=== PATIENT | male | born 1945 | race Caucasian/White ===

== ENCOUNTER → 2019-12-18 13:20 | Outpatient (CLI) | payer OTHER, SELFPAY ==
--- NOTE | ~2019-12-18 | XR_ITS ---
EXAMINATION: XR chest 2V EXAM DATE: 12/18/2019 13:48 INDICATION: Shortness of breath. TECHNIQUE: Frontal and lateral projections of the chest obtained and reviewed. Comparison is made to prior examination from 02/05/2019. FINDINGS: Interval decrease in the heart size, which is upper limits of normal. There is pulmonary v ascular congestion. No confluent consolidation, pneumothorax or pleural effusion suspected. There is no pneumothorax suspected. There are mild bony degenerative changes. IMPRESSION: Congestive changes. Reviewed, dictated and finalized at location B. 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
== END ==
PROVIDERS: PCP Internal Medicine; Visit Provider Nurse Practitioner
DX: R06.02 Shortness of breath (principal)
CPT/HCPCS: 71046

== ENCOUNTER 2020-04-14 19:02 | Outpatient (CLI) | payer OTHER, SELFPAY ==
--- NOTE | ~2020-04-14 | XR_ITS ---
EXAMINATION: XR chest 2V 04/14/2020 19:30 INDICATION: Shortness of breath with cough PROCEDURE: 2 view chest COMPARISON: 01/06/2019 FINDINGS: The lungs are clear. The cardiomediastinal silhouette is within normal limits. There are no pleural effusions. There is no pneumothorax suspected. IMPRESSION: 1: NO ACUTE CARDIOPULMONARY DISEASE. Reviewed, dictated and finalized at location A.
== END 2020-04-14 19:03 | disposition home or self-care (01) ==
LOC: ANHIMG 19:09
PROVIDERS: PCP Internal Medicine; Visit Provider Internal Medicine
DX: R06.02 Shortness of breath (principal)
CPT/HCPCS: 71046

== ENCOUNTER → 2020-08-09 10:22 | Outpatient (CLI) | payer OTHER, SELFPAY ==
--- NOTE | ~2020-08-09 | XR_ITS ---
EXAMINATION: XR chest 2V EXAM DATE: 08/09/2020 10:52 INDICATION: Shortness of breath. Wheezing and cough. TECHNIQUE: Frontal and lateral projections of the chest obtained and reviewed. Comparison is made to prior examination from 04/14/2020. FINDINGS: Mild cardiomegaly. There is pulmonary vascular congestion. There is indistinct reticulatio n with a bibasal predominance which may indicate pulmonary edema. No confluent consolidation, pneumot horax or pleural effusion suspected. There is aortic arteriosclerosis. There are mild bony degenerati ve changes. IMPRESSION: 1. Findings consistent with mild CHF exacerbation. Reviewed, dictated and finalized at location B.
== END ==
PROVIDERS: PCP Internal Medicine; Visit Provider Nurse Practitioner
DX: R06.02 Shortness of breath (principal)
CPT/HCPCS: 71046

== ENCOUNTER 2020-08-16 01:38 | Outpatient (CLI) | payer OTHER, SELFPAY ==
[2020-08-16 19:24] LABS: SARS-CoV-2 RNA PCR Negative
== END 2020-08-16 01:39 | disposition home or self-care (01) ==
LOC: ANHCOVIDDT 01:38
PROVIDERS: PCP Internal Medicine; Visit Provider Internal Medicine Critical Care Medicine
DX: R50.9 Fever, unspecified (principal); R43.0 Anosmia; Z20.828 Contact with and (suspected) exposure to other viral communicable diseases
CPT/HCPCS: 87635; C9803; U0003

== ENCOUNTER 2020-08-18 11:14 | Outpatient (CLI) | payer OTHER, SELFPAY ==
--- NOTE | 2020-09-16 21:04 | WPDSLEEPSTUD ---
Sleep Study Date of Study: 08/18/20 Ordering Provider: Pavan Crabtree APRN Interpreting Physician: Jennifer Marin MD Sleep Study Type: Split Polysomnogram Height: 1.7 m Weight: 117.934 kg Body Mass Index: 40.7 [place]: 7 Reason for Sleep Study Known history of sleep apnea, excessive daytime sleepiness; his CPAP device stop working, has not been treated for over a year. Sleep History Farhan Armstrong is a 74 yo man who frequently wakes from sleep feeling short of breath. He constantly has trouble sleeping if he has a cold. He rarely has breathing problems at night reported to him by others. He rarely sweats excessively at night. He occasionally notices his heart pounding or beating irregularly at night. He occasionally falls asleep during the day, never involuntarily, never while driving and never during physical effort. He does not have loss of muscle tone with strong emotion. He does not have daytime difficulties due to he does not feel paralyzed on waking or falling asleep and does not have vivid dreamlike scenes upon awakening or falling asleep. He has never for a to go to sleep. He does not have nightmares. He does not recall his dreams. He does not have racing thoughts. He does not feel sad, depressed or anxious. He does not have muscular tension, does not notice part his body jerking and he does not kick at night. He does not have crawling and aching feelings in his legs. He denies having leg pain at night and does not have morning jaw pain. He does not grind his teeth during sleep. He is constantly bothered by pain during the day and is awakened by pain at night. He does not wake up feeling stiff in the morning, does not have sore achy muscles and does not wake up with pain in the neck and spine. He has stomach problems, dizziness, and memory problems. Normal bedtime is around 1:00 a.m.. It takes him less than a minute to fall asleep. He typically wakes up 4-6 times during the night. When he wakes he goes to the bathroom. His wake up time varies from day to day. On the weekend he goes to bed around 3:00 a.m. He takes nap in the afternoon or evening. A short nap may be refreshing. He has a history of sleep apnea. His device quit working, so he has not been treated for over a year. [facility] Past Medical History Medical History Arthritis (03/26/19) Atrial fibrillation with controlled ventricular rate Chronic congestive heart failure COPD (chronic obstructive pulmonary disease) Depression Diabetic polyneuropathy associated with type 2 diabetes mellitus Fibromyalgia Mixed hyperlipidemia ANIA (obstructive sleep apnea) Restless legs syndrome Surgical History Surgical History History of hernia repair Family History Family History Sibling Patient's sister is in good health Hypertension Family history of heart disease in male family member before age 55 Mother Family history of heart disease in male family member before age 55 Patient's mother is Family history of congestive heart failure, Onset Age: 70 Father Patient's father is Acute myocardial infarction, Onset Age: 62 Grandparent Depression Family history of arthritis Family history of malignant neoplasm of breast Family history of heart disease in male family member before age 55 Other Cerebrovascular accident Family history of cardiovascular disease Social History Social History Smoking status: Former smoker Smoking end date: 11/18/03 Alcohol intake: never Medications Home Medications Medication Instructions Recorded Confirmed Type allopurinol 300 mg tablet 300 mg PO DAILY 09/15/19 08/12/20 History calcium 600 mg-D3 800 unit-mag11 1 tablet PO DAILY 09/15/19 08/12/20 Hi
[2020-09-16 22:43] VITALS: BMI 40.7
== END 2020-08-18 11:15 | disposition home or self-care (01) ==
LOC: ANHCSM 11:17
PROVIDERS: PCP Internal Medicine; Visit Provider Nurse Practitioner
DX: G47.33 Obstructive sleep apnea (adult) (pediatric) (principal)
CPT/HCPCS: 95811

== ENCOUNTER → 2020-12-21 16:41 | Outpatient (CLI) | payer OTHER, SELFPAY ==
--- NOTE | ~2020-12-21 | XR_ITS ---
EXAMINATION: XR chest 2V DATE: 12/21/2020 17:17 INDICATION: Heart failure, unspecified. TECHNIQUE: Frontal and lateral views of the chest were obtained. COMPARISON: Chest 2 views 08/09/2020 FINDINGS: The chest demonstrates clear lungs without pneumonia, pleural effusion, or pneumothorax. Ca rdiomegaly is noted. IMPRESSION: 1. Cardiomegaly. Reviewed, dictated and finalized at location A. 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 Cardiomegaly.
== END ==
PROVIDERS: PCP Internal Medicine; Visit Provider Internal Medicine
DX: I50.9 Heart failure, unspecified (principal); J44.9 Chronic obstructive pulmonary disease, unspecified; I51.7 Cardiomegaly
CPT/HCPCS: 71046

== ENCOUNTER → 2021-02-16 10:42 | Outpatient (CLI) | payer OTHER, SELFPAY ==
--- NOTE | ~2021-02-16 | XR_ITS ---
XR chest 2V 02/16/2021 11:30 Indication: Shortness of breath Procedure: 2 view chest Comparison: Comparison to multiple prior studies sequentially, with oldest reviewed study dated 12/18. Findings: Bilateral infiltrates of the mid and lower lung zones. Heart size normal. Atherosclerosis. No significant effusion or pneumothorax. No acute osseous abnormality. Impression: 1: Bilateral infiltrates of the mid and lower lung zones which may represent atelectasis or developin g pneumonia. Reviewed, dictated and finalized at location B. Impression: 1: Bilateral infiltrates of the mid and lower lung zones which may represent at electasis or developing pneumonia.
== END ==
PROVIDERS: PCP Internal Medicine; Visit Provider Nurse Practitioner
DX: R06.02 Shortness of breath (principal); R91.8 Other nonspecific abnormal finding of lung field
CPT/HCPCS: 71046

== ENCOUNTER 2021-03-08 14:52 | Inpatient (IN) | payer OTHER, SELFPAY ==
[2021-03-08] VITALS (22 sets, daily range): BP systolic 128–176; BP diastolic 76–110; PULSE 85–102; RESP 14–25; TEMP 36.5–37.2; O2SAT 93–97; BMI 32.7; BMI 32.6
--- NOTE | ~2021-03-08 | CT_ITS ---
EXAMINATION: CT brain wo con DATE: 03/09/2021 17:23 INDICATION: Altered mental status TECHNIQUE: Computed tomography (CT) of the head was performed without intravenous contrast. The dose- length product was 605.33 mGy-cm. Automated exposure control and iterative reconstruction technique w ere employed. COMPARISON: None FINDINGS: Mild generalized atrophy. There are scattered mild periventricular and subcortical white ma tter changes, most likely related to small vessel ischemic disease (microangiopathy). No acute intrac ranial hemorrhage, infarction, mass or mass effect. There is intracranial atherosclerosis. Paranasal sinuses and mastoids are pneumatized. IMPRESSION: 1. No acute intracranial abnormality. 2: Chronic age-related findings. Reviewed, dictated and finalized at location A.
--- NOTE | ~2021-03-08 | CT_ITS ---
EXAMINATION: CT abdomen pelvis wo con DATE: 03/08/2021 17:02 INDICATION: Abdominal pain, distention painful urination. TECHNIQUE: Computed tomography (CT) of the abdomen and pelvis was performed without intravenous contr ast. Automated exposure control and iterative reconstruction technique were employed. The dose-length product was 1144.26 mGy-cm. COMPARISON: CT dated 12/06/2017 FINDINGS: Chronic discoid atelectasis/scarring in the lingula and right middle lobe. Heart size is normal. Calc ified pleural plaque posterior to the right lower lobe. Calcified right lower lobe nodules consistent with old granulomatous disease. Aortic valve and mitral annular calcification. No pericardial or ple ural effusion. Liver, gallbladder, spleen, pancreas and bilateral adrenal glands are normal. Kidneys and ureters are normal with no urolithiasis, hydroureteronephrosis or perinephric/ureteral stranding. Bladder is unremarkable. Bowels including the appendix are normal. There is calcified atherosclerosi s of the aorta and many of the other arteries. No free intraperitoneal gas or fluid. No pathologicall y enlarged abdominal or pelvic lymphadenopathy. Mild lumbar levoscoliosis with severe spondylosis. Mi ld right and moderate left hip osteoarthritis. IMPRESSION: 1. No acute intra-abdominal/pelvic process. Reviewed, dictated and finalized at location A.
--- NOTE | ~2021-03-08 | XR_ITS ---
XR chest 2V 03/08/2021 17:14 Indication: Decreased appetite. Pain with urination. COPD. Procedure: AP and lateral views of the chest Comparison: Comparison to multiple prior studies sequentially, with oldest reviewed study dated 04/14. Findings: Heart size normal. No focal air space disease, pulmonary edema, pleural effusion or suspect ed pneumothorax. No acute osseous abnormality. Impression: 1: No acute cardiopulmonary disease. Reviewed, dictated and finalized at location A. Impression: 1: No acute cardiopulmonary disease.
[2021-03-08 15:25] LABS: Basophils Absolute Auto 0.1 K/mm3 (0.0-0.1); Basophils Percent Auto 0.4 % (0.2-1.2); Eosinophils Absolute Auto 0.1 K/mm3 (0-0.3); Eosinophils Percent Auto 0.4 % (0-4.4); Hematocrit 49.9 % (42.0-52.0); Hemoglobin 17.4 g/dL (14.0-18.0); Immature Granulocyte Absolute 0.07 K/mm3 (0.00-0.031); Immature Granulocyte Percent A 0.5 % (0-0.5); Lymphocytes Absolute Auto 1.55 K/mm3 (0.9-3.2); Lymphocytes Percent Auto 11.7 % (18.3-44.2); Mean Corpuscular HGB Conc 34.9 g/dl (32-36); Mean Corpuscular Hemoglobin 32.5 pg (26-34); Mean Corpuscular Volume 93.3 fl (80-100); Mean Platelet Volume 11.8 fl (7.4-10.4); Monocytes Percent Auto 7.2 % (2.6-8.5); Neutrophils Absolute Auto 10.6 K/mm3 (1.3-6.7); Neutrophils Percent Auto 79.8 % (45.5-73.1); Platelet Count Result 180 k/mm3 (150-375); Red Blood Count 5.35 M/mm3 (4.6-6.20); Red Cell Distribution Width 12.6 % (11.5-14.5); White Blood Count 13.3 K/mm3 (4.5-10.0)
[2021-03-08 15:35] LABS: Alanine Aminotransferase 25 U/L (4-50); Albumin Level 4.6 g/dL (3.5-5.1); Alkaline Phosphatase 56 U/L (38-126); Anion Gap 11 mmol/L (8-16); Aspartate Amino Transferase 33 U/L (17-59); Bilirubin,Total 1.5 mg/dL (0.2-1.3); Blood Urea Nitrogen 57 mg/dL (9-20); Calcium 9.4 mg/dL (8.4-10.2); Carbon Dioxide 27 mmol/L (22-30); Chloride 98 mmol/L (98-107); Estimated Glomerular Filt Rate 35; Glucose 143 mg/dL (75-110); Lipase 40 U/L (23-300); Potassium 3.6 mmol/L (3.4-5.0); Sodium 136 mmol/L (137-145)
--- NOTE | 2021-03-08 16:09 | ED.ABDPAIN ---
HPI - Abdominal Pain General Chief Complaint: Abdominal Pain Stated Complaint: abd pain/loss appetite Time Seen by Provider: 03/08/21 16:09 Source: patient Mode of arrival: ambulatory Limitations: altered mental status and clinical condition History of Present Illness HPI narrative: 75-year-old male Quite a poor historian who is really not able to amplify much at all on the reason for coming to the ED He states that he feels bad The additional history is that he may have just been mostly laying around the house for the last 10 or 12 days and likely not taking his medications Apart from that there is little in the way of focal complaints He does not have a headache; no shortness of breath, cough, or CP He has had poor oral intake and anorexia and some diffuse abdominal discomfort, no diarrhea no constipation no vomiting Denies urinary symptoms Has not fallen or otherwise injured himself Related Data Home Medications Medication Instructions Recorded Confirmed calcium 600 mg-D3 800 unit-mag11 1 tablet PO DAILY 09/15/19 02/16/21 50 ry-lbog-louryf-jimena-s.borat tablet cyanocobalamin (vitamin B-12) 5,000 mcg PO DAILY 09/15/19 02/16/21 5,000 mcg capsule aspirin 81 mg tablet,delayed 81 mg PO DAILY 11/06/19 02/16/21 release ropinirole 1 mg tablet 1 mg PO .QHS tablet 12/18/19 02/16/21 Allergies Allergy/AdvReac Type Severity Reaction Status Date / Time Penicillins Allergy Unknown Rash Verified 03/08/21 14:02 [facility] Past Medical History Medical History Arthritis (03/26/19) Atrial fibrillation with controlled ventricular rate Chronic congestive heart failure COPD (chronic obstructive pulmonary disease) Depression Diabetic polyneuropathy associated with type 2 diabetes mellitus Fibromyalgia Mixed hyperlipidemia ANIA (obstructive sleep apnea) Restless legs syndrome Surgical History Surgical History History of hernia repair Family History Family History Sibling Patient's sister is in good health Hypertension Family history of heart disease in male family member before age 55 Mother Family history of heart disease in male family member before age 55 Patient's mother is Family history of congestive heart failure, Onset Age: 70 Father Patient's father is Acute myocardial infarction, Onset Age: 62 Grandparent Depression Family history of arthritis Family history of malignant neoplasm of breast Family history of heart disease in male family member before age 55 Other Cerebrovascular accident Family history of cardiovascular disease Social History Social History (Updated 02/16/21 @ 09:51 by Madison Anand MA) Smoking packs per day: 2 Smoking cigarettes per day: 40.0 Years smoked: 30 Smoking pack-years: 60.00 Smoking end date: 11/18/99 Alcohol intake: never Course Course Emergency Course: Appears dry with an SHAKIRA, work-up pretty unrevealing otherwise, discussed with hospitalist for admit Vital Signs Vital signs: Vital Signs Temperature 36.5 C 03/08/21 15:07 Pulse Rate 102 H 03/08/21 15:07 Respiratory Rate 16 03/08/21 15:07 Blood Pressure 132/82 03/08/21 15:07 Pulse Oximetry 96 03/08/21 15:07 Temperature 36.5 C 03/08/21 15:07 Pulse Rate 96 03/08/21 16:15 Respiratory Rate 16 03/08/21 15:07 Blood Pressure 132/82 03/08/21 15:07 Pulse Oximetry 96 03/08/21 16:15 MDM - Abdominal Pain Lab Data Result diagrams: 03/08/21 15:14 03/08/21 15:14 Labs: Lab Results 03/08/21 03/08/21 03/08/21 Range/Units 15:14 15:14 16:36 WBC 13.3 H (4.5-10.0) K/mm3 RBC 5.35 (4.6-6.20) M/mm3 Hgb 17.4 (14.0-18.0) g/dL Hct 49.9 (42.0-52.0) % MCV 93.3 (80-100) fl MCH 32.5 (
[2021-03-08 16:46] LABS: Add Urine Microscopic? YES; Appearance Urine Clear (Clear); Bilirubin Urine Negative (Negative); Blood Urine Negative (Negative); Color Urine Yellow (Yellow); Glucose Urine UA Negative (Negative); Ketones Urine 1+ mg/dL (Negative); Leukocyte Esterase Ur Negative LEU/UL (Negative); Mucus Urine Rare /lpf; Nitrate Urine Negative (Negative); Protein Urine Negative (Negative); Specific Grav Ur 1.019 (1.001-1.035); Urobilinogen Urine Negative mg/dL (<2.0); WBC Urine 0-3 /hpf
[2021-03-08] MEDS: LACTATED RINGERS 1,000 ML 999 ML IV CONT (17:26)
--- NOTE | 2021-03-08 17:30 | PC.NURSE ---
Arrives via WC accompanied by son, x1 week generalized abd pain and tenderness, weakness, I can only walk a few steps to the bathroom . Denies sick contacts, denies covid exposure. Afebrile. AOx3 but gets overwhelmed when asked questions and provides vague answers ie. I don't know and what do you think (towards son). Hx depression, denies SI/HI, currently not taking meds and poor PO intake. Lives alone with son nearby
--- NOTE | 2021-03-08 18:44 | PC.NURSE ---
Dr Sandoval at bedside to update pt and son on POC and admission. Pt reports pain lower back, lower abd , denies N/V. Non-labored respirations
[2021-03-08] MEDS: LACTATED RINGERS 1,000 ML 150 ML IV CONT (21:15)
--- NOTE | 2021-03-08 21:41 | ADMGEN ---
This patient, Farhan Armstrong, was admitted to 3 Med Surg Room 316-02. Patient/family oriented to hospital policies and general routines including ID bracelet, bed and alarms, visiting hours, pain management, procedures, bathroom and other care routines, personal items, smoking policy, room service/diet, and visiting hours. Information on how to activate the Rapid Response Team has been discussed. Patient/Family are encouraged to report perceived risks to care and to ask questions if they do not understand what they are told or what they should do.
[2021-03-08] MEDS: FAMOTIDINE 20 MG/2 ML VIAL IV PUSH (22:31)
--- NOTE | 2021-03-08 22:31 | PM.IMHP ---
H&P: HPI History of Present Illness Date/Time: 03/08/21 22:31 Chief Complaint: The patient's son was worried about him. Narrative: This is a pleasant 75-year-old diabetic male with CHF, COPD, and known depression who is brought to the hospital today by his son as he felt the patient was not doing well at home by himself. The patient has been mostly laying around the house, feeling depressed, and not eating much over the past 10 days. The patient does report having black stools yesterday but denies any ravindra blood in his stool. He denies any significant shortness of breath, chest pain, cough, fevers, weight loss, nausea, vomiting, dysuria, hematuria, diarrhea, or constipation. The patient's last bowel movement was yesterday. He does complain of mild diffuse abdominal discomfort and did undergo CT abdomen pelvis today in the emergency room which was unremarkable. On routine labs the patient was found to have acute renal failure with elevated creatinine of 1.90. The patient's last colonoscopy was about 8 years ago but he has not know with the results were. The patient admits to me that he has not taken his home medications over the past few days since he has been feeling bad. The patient was admitted to the hospital for his acute renal failure and has no other complaints this time. Review of Systems Review of Systems: All systems reviewed & are unremarkable except as noted in HPI and below PMFSH Past Medical History Medical History Arthritis (03/26/19) Atrial fibrillation with controlled ventricular rate Chronic congestive heart failure COPD (chronic obstructive pulmonary disease) Depression Diabetes mellitus Diabetic polyneuropathy associated with type 2 diabetes mellitus Fibromyalgia Mixed hyperlipidemia ANIA (obstructive sleep apnea) Restless legs syndrome Surgical History Surgical History History of hernia repair Family History Family History Sibling Patient's sister is in good health Hypertension Family history of heart disease in male family member before age 55 Mother Family history of heart disease in male family member before age 55 Patient's mother is Family history of congestive heart failure, Onset Age: 70 Father Patient's father is Acute myocardial infarction, Onset Age: 62 Grandparent Depression Family history of arthritis Family history of malignant neoplasm of breast Family history of heart disease in male family member before age 55 Other Cerebrovascular accident Family history of cardiovascular disease Social History Social History Smoking packs per day: 1 Smoking cigarettes per day: 20.0 Years smoked: 20 Smoking pack-years: 20.00 Smoking status: Former smoker Tobacco type: cigarettes Smoking end date: 11/18/99 Alcohol intake: former Substance use: never Gender identity (if verbalized by the patient): Male Sexual Orientation (if Verbalized by the Patient): Straight or Heterosexual Spiritual care concerns: No Meds Home Medications and Allergies Home Medications Medication Instructions Recorded Confirmed Type calcium 600 mg-D3 800 unit-mag11 1 tablet PO DAILY 09/15/19 03/10/21 History 50 ht-jaai-ugsbga-jimena-s.borat tablet cyanocobalamin (vitamin B-12) 5,000 mcg PO DAILY 09/15/19 03/10/21 History 5,000 mcg capsule aspirin 81 mg tablet,delayed 81 mg PO DAILY 11/06/19 03/09/21 History release ropinirole 1 mg tablet 1 mg PO .QHS tablet 12/18/19 03/09/21 History furosemide 40 mg tablet 60 mg PO BID #180 tablet 06/17/20 03/09/21 Rx magnesium oxide 400 mg PO BID #60 tablet 08/10/20 03/10/21 Rx metolazone 2.5 mg tablet 2.5 mg PO .COMPLEX #30 tablet 08/10/20 03/09/21 Rx gabapentin 600 mg ta
[2021-03-09] MEDS: LACTATED RINGERS 1,000 ML 125 ML IV CONT ×2 (04:22→13:02)
[2021-03-09 05:37] VITALS: BP 150/86; PULSE 82; RESP 20; TEMP 36.8; O2SAT 92
[2021-03-09 06:10] LABS: Basophils Absolute Auto 0.1 K/mm3 (0.0-0.1); Basophils Percent Auto 0.4 % (0.2-1.2); Eosinophils Absolute Auto 0.1 K/mm3 (0-0.3); Eosinophils Percent Auto 0.8 % (0-4.4); Hematocrit 45.5 % (42.0-52.0); Hemoglobin 15.6 g/dL (14.0-18.0); Immature Granulocyte Absolute 0.06 K/mm3 (0.00-0.031); Immature Granulocyte Percent A 0.4 % (0-0.5); Lymphocytes Absolute Auto 2.16 K/mm3 (0.9-3.2); Lymphocytes Percent Auto 15.6 % (18.3-44.2); Mean Corpuscular HGB Conc 34.3 g/dl (32-36); Mean Corpuscular Hemoglobin 32.1 pg (26-34); Mean Corpuscular Volume 93.6 fl (80-100); Monocytes Absolute Auto 1.4 K/mm3 (0.1-0.6); Monocytes Percent Auto 10.1 % (2.6-8.5); Neutrophils Absolute Auto 10.1 K/mm3 (1.3-6.7); Neutrophils Percent Auto 72.7 % (45.5-73.1); Platelet Count Result 143 k/mm3 (150-375); Red Blood Count 4.86 M/mm3 (4.6-6.20); Red Cell Distribution Width 12.5 % (11.5-14.5); White Blood Count 13.9 K/mm3 (4.5-10.0)
[2021-03-09 07:12] LABS: Anion Gap 7 mmol/L (8-16); Blood Urea Nitrogen 48 mg/dL (9-20); Carbon Dioxide 29 mmol/L (22-30); Chloride 101 mmol/L (98-107); Estimated CRCL calculation 50 ml/min; Estimated Glomerular Filt Rate 54; Glucose 89 mg/dL (75-110); Potassium 3.4 mmol/L (3.4-5.0); Sodium 137 mmol/L (137-145)
[2021-03-09] MEDS: FAMOTIDINE 20 MG/2 ML VIAL IV PUSH ×2 (09:29→20:09)
[2021-03-09] MEDS: POTASSIUM CHLORIDE 20 MEQ TABLET PO (09:30)
--- NOTE | 2021-03-09 13:47 | PM.IMPN ---
Progress Note: A&P Assessment and Plan (1) SHAKIRA (acute kidney injury): Code(s): N17.9 - Acute kidney failure, unspecified Status: Acute Assessment and Plan: Cr elevated up to 1.9 on arrival, improved today. Suspect related to poor oral intake in the last 1 week. Continue IV hydration and monitor renal function, urine output, and fluid status. (2) Dehydration: Code(s): E86.0 - Dehydration Status: Acute Assessment and Plan: Patient reports poor appetite for 2 weeks and lesser and lesser oral intake over the last several days. Denies abdominal pain to me and CT abd shows no acute intraabdominal findings. (3) Depression: Qualifiers: Depression Type: unspecified Qualified Code(s): F32.9 - Major depressive disorder, single episode, unspecified Code(s): F32.9 - Major depressive disorder, single episode, unspecified Status: Acute Assessment and Plan: Patient admits to feeling down lately. Reports no thoughts of hurting himself or others. Discussed he will benefit from following up with PCP for further management. Continue his wellbutrin. May be contributing to his loss of appetite/poor oral intake recently. Stopped talking all of his medications 1-2 weeks ago and is vague on details. Thinks recent cefdinir prescribed for pneumonia made him feel nervous and bad so he stopped taking all medications at that time. Apparently has been mostly in bed for several days, appreciate PT/OT evaluations to determine safe discharge planning. Order CT brain due to his mental status change. (4) Black stools: Code(s): K92.1 - Melena Status: Acute Assessment and Plan: Cannot provide further details. None while here. Check stool for occult blood with next BM. Notes he had colonoscopy years ago and is due for another . We discussed the importance of following up with PCP to schedule outpatient colonoscopy especially given his loss of appetite. 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 Hold metformin in light of his acute renal failure. Continue to monitor with accu-cheks and adjust treatment as needed, cover with SSI. (6) COPD (chronic obstructive pulmonary disease): Qualifiers: COPD type: unspecified COPD Qualified Code(s): J44.9 - Chronic obstructive pulmonary disease, unspecified Code(s): J44.9 - Chronic obstructive pulmonary disease, unspecified Status: Chronic Assessment and Plan: No evidence of respiratory distress, resume PRN bronchodilators. (7) Mixed hyperlipidemia: Code(s): E78.2 - Mixed hyperlipidemia Status: Chronic Assessment and Plan: Continue home statin therapy. (8) Atrial fibrillation with controlled ventricular rate: Code(s): I48.91 - Unspecified atrial fibrillation Status: Chronic Assessment and Plan: History of paroxysmal A fib; regular rhythm at present. Follows with Dr Walters - per Dr Walters's records he could not afford NOAC and he remains on ASA. (9) Chronic congestive heart failure: Qualifiers: Heart failure type: unspecified Qualified Code(s): I50.9 - Heart failure, unspecified Code(s): I50.9 - Heart failure, unspecified Status: Acute
[2021-03-09 14:00] VITALS: BP 134/69; PULSE 86; RESP 18; TEMP 36.7; O2SAT 94
[2021-03-09 16:37] LABS: Glucose Point of Care 181 (65-105)
[2021-03-09] MEDS: GABAPENTIN 300 MG CAPSULE 600 MG PO (17:30)
[2021-03-09] MEDS: LACTATED RINGERS 1,000 ML 75 ML IV CONT (18:51)
[2021-03-09 19:48] VITALS: PULSE 86; RESP 18; O2SAT 94
[2021-03-09] MEDS: rOPINIRole HCL 1 MG TABLET PO (20:09)
[2021-03-09 21:36] LABS: Glucose Point of Care 166 (65-105)
[2021-03-09 21:52] VITALS: BP 144/82; PULSE 86; RESP 20; TEMP 36.9; O2SAT 94
[2021-03-10 05:32] VITALS: BP 150/90; PULSE 93; RESP 20; TEMP 36.6; O2SAT 93
[2021-03-10 05:56] LABS: Basophils Absolute Auto 0.1 K/mm3 (0.0-0.1); Basophils Percent Auto 0.5 % (0.2-1.2); Eosinophils Absolute Auto 0.3 K/mm3 (0-0.3); Eosinophils Percent Auto 2.5 % (0-4.4); Hematocrit 44.2 % (42.0-52.0); Immature Granulocyte Absolute 0.06 K/mm3 (0.00-0.031); Immature Granulocyte Percent A 0.5 % (0-0.5); Lymphocytes Absolute Auto 2.13 K/mm3 (0.9-3.2); Lymphocytes Percent Auto 16.4 % (18.3-44.2); Mean Corpuscular HGB Conc 33.9 g/dl (32-36); Mean Corpuscular Hemoglobin 31.9 pg (26-34); Mean Platelet Volume 11.9 fl (7.4-10.4); Monocytes Absolute Auto 1.2 K/mm3 (0.1-0.6); Monocytes Percent Auto 9.4 % (2.6-8.5); Neutrophils Absolute Auto 9.2 K/mm3 (1.3-6.7); Neutrophils Percent Auto 70.7 % (45.5-73.1); Platelet Count Result 142 k/mm3 (150-375); Red Cell Distribution Width 12.5 % (11.5-14.5)
[2021-03-10 06:17] LABS: Alanine Aminotransferase 19 U/L (4-50); Albumin Level 3.4 g/dL (3.5-5.1); Alkaline Phosphatase 44 U/L (38-126); Anion Gap 3 mmol/L (8-16); Aspartate Amino Transferase 26 U/L (17-59); Bilirubin,Total 0.8 mg/dL (0.2-1.3); Blood Urea Nitrogen 28 mg/dL (9-20); Calcium 8.9 mg/dL (8.4-10.2); Carbon Dioxide 31 mmol/L (22-30); Chloride 106 mmol/L (98-107); Estimated CRCL calculation 54 ml/min; Estimated Glomerular Filt Rate 59; Glucose 112 mg/dL (75-110); Potassium 3.6 mmol/L (3.4-5.0); Sodium 140 mmol/L (137-145)
[2021-03-10] MEDS: LACTATED RINGERS 1,000 ML 75 ML IV CONT ×2 (07:10→16:50)
[2021-03-10 08:15] LABS: Glucose Point of Care 117 (65-105)
[2021-03-10] MEDS: buPROPion HCL XL (24 HR) 150 MG TABCR 300 MG PO (10:02)
[2021-03-10] MEDS: ASPIRIN 81 MG ENTERIC TABLET PO (10:02)
[2021-03-10] MEDS: FAMOTIDINE 20 MG/2 ML VIAL IV PUSH ×2 (10:02→21:03)
[2021-03-10] MEDS: GABAPENTIN 300 MG CAPSULE 600 MG PO ×3 (10:02→16:50)
[2021-03-10] MEDS: metOLazone 2.5 MG TABLET PO (10:03)
[2021-03-10] MEDS: POTASSIUM CHLORIDE 20 MEQ TABLET.ER PO (10:03)
[2021-03-10] MEDS: metFORMIN HCL 500 MG TABLET PO (10:03)
[2021-03-10] MEDS: TAMSULOSIN HCL 0.4 MG CAPSULE PO (10:03)
--- NOTE | 2021-03-10 11:00 | P.CDI_ITS ---
CDI Query Clarification Request -Chronic CHF, unspecified type has been documented -Documentation that echo from May 2019 shows normal systolic function,EF 55-60% and diastolic dysfunction with mild aortic stenosis. -[facility] are unable to code type of CHF from an Echo report. Please further clarify type of CHF: * Diastolic * Systolic * Bother diastolic and systolic * Unable to determine Thanks
[2021-03-10 12:04] LABS: Glucose Point of Care 174 (65-105)
--- NOTE | 2021-03-10 13:44 | PM.IMPN ---
Progress Note: A&P Assessment and Plan (1) SHAKIRA (acute kidney injury): Code(s): N17.9 - Acute kidney failure, unspecified Status: Acute Assessment and Plan: Cr elevated up to 1.9 on arrival, improved now. Suspect related to poor oral intake in the last 1 week. Stop IV fluids and monitor renal function, urine output, and fluid status. (2) Dehydration: Code(s): E86.0 - Dehydration Status: Acute Assessment and Plan: Patient reports poor appetite for 2 weeks and lesser and lesser oral intake over the last several days. Denies abdominal pain to me and CT abd shows no acute intraabdominal findings. Eating well here in the hospital. (3) Depression: Qualifiers: Depression Type: unspecified Qualified Code(s): F32.9 - Major depressive disorder, single episode, unspecified Code(s): F32.9 - Major depressive disorder, single episode, unspecified Status: Acute Assessment and Plan: Patient admits to feeling down lately. Reports no thoughts of hurting himself or others. Discussed he will benefit from following up with PCP for further management. Continue his Wellbutrin. May be contributing to his loss of appetite/poor oral intake recently. Stopped talking all of his medications 1-2 weeks ago and is vague on details. Thinks recent cefdinir prescribed for pneumonia made him feel nervous and bad so he stopped taking all medications at that time. Apparently has been mostly in bed for several days, appreciate PT/OT evaluations to determine safe discharge planning. Care coordination aware working on SNF. CT brain obtained due to mental status change shows no evidence of acute intracranial abnormality. (4) Black stools: Code(s): K92.1 - Melena Status: Acute Assessment and Plan: Cannot provide further details. None while here. Check stool for occult blood with next BM. Notes he had colonoscopy years ago and is due for another . We discussed the importance of following up with PCP to schedule outpatient colonoscopy especially given his loss of appetite. (5) Diabetes mellitus: Qualifiers: Diabetes mellitus type: type 2 Diabetes mellitus usp insulin use: without usp use Diabetes mellitus complication status: without complication Qualified Code(s): E11.9 - Type 2 diabetes mellitus without complications Code(s): E11.9 - Type 2 diabetes mellitus without complications Status: Chronic Assessment and Plan: A1c 7.4% in Dec 2020. Hold metformin in light of his acute renal failure. Continue to monitor with accu-cheks and adjust treatment as needed, cover with SSI. (6) COPD (chronic obstructive pulmonary disease): Qualifiers: COPD type: unspecified COPD Qualified Code(s): J44.9 - Chronic obstructive pulmonary disease, unspecified Code(s): J44.9 - Chronic obstructive pulmonary disease, unspecified Status: Chronic Assessment and Plan: No evidence of respiratory distress, resume PRN bronchodilators. (7) Mixed hyperlipidemia: Code(s): E78.2 - Mixed hyperlipidemia Status: Chronic Assessment and Plan: Continue home statin therapy. (8) Atrial fibrillation with controlled ventricular rate: Code(s): I48.91 - Unspecified atrial fibrillation Status: Chronic Assessment and Plan: History of paroxysmal A fib; regular rhythm at present. Follows with Dr Walters - per Dr Walters's records he could not afford NOAC and he remains on ASA. (9) Chronic congestive heart failure: Qualifiers: Heart failure type: unspecified Qualified
[2021-03-10 14:00] VITALS: BP 126/76; PULSE 99; RESP 18; TEMP 36.7; O2SAT 95
[2021-03-10 17:26] LABS: Glucose Point of Care 153 (65-105)
[2021-03-10] MEDS: rOPINIRole HCL 1 MG TABLET PO (21:03)
[2021-03-10 22:00] VITALS: BP 142/94; PULSE 85; RESP 18; TEMP 36.3; O2SAT 95
[2021-03-10 23:32] LABS: Glucose Point of Care 170 (65-105)
[2021-03-11 06:00] VITALS: BP 148/88; PULSE 87; RESP 20; TEMP 36.8; O2SAT 93
[2021-03-11 06:04] LABS: Basophils Absolute Auto 0.1 K/mm3 (0.0-0.1); Basophils Percent Auto 0.5 % (0.2-1.2); Eosinophils Absolute Auto 0.5 K/mm3 (0-0.3); Eosinophils Percent Auto 3.9 % (0-4.4); Hematocrit 43.2 % (42.0-52.0); Hemoglobin 14.7 g/dL (14.0-18.0); Immature Granulocyte Absolute 0.05 K/mm3 (0.00-0.031); Immature Granulocyte Percent A 0.4 % (0-0.5); Lymphocytes Absolute Auto 2.56 K/mm3 (0.9-3.2); Lymphocytes Percent Auto 20.6 % (18.3-44.2); Mean Corpuscular Hemoglobin 32.3 pg (26-34); Mean Corpuscular Volume 94.9 fl (80-100); Mean Platelet Volume 12.1 fl (7.4-10.4); Monocytes Absolute Auto 1.1 K/mm3 (0.1-0.6); Monocytes Percent Auto 8.4 % (2.6-8.5); Neutrophils Absolute Auto 8.2 K/mm3 (1.3-6.7); Neutrophils Percent Auto 66.2 % (45.5-73.1); Platelet Count Result 129 k/mm3 (150-375); Red Blood Count 4.55 M/mm3 (4.6-6.20); Red Cell Distribution Width 12.7 % (11.5-14.5); White Blood Count 12.4 K/mm3 (4.5-10.0)
[2021-03-11 06:14] LABS: Anion Gap 4 mmol/L (8-16); Blood Urea Nitrogen 25 mg/dL (9-20); Calcium 8.8 mg/dL (8.4-10.2); Carbon Dioxide 33 mmol/L (22-30); Chloride 103 mmol/L (98-107); Estimated CRCL calculation 58 ml/min; Estimated Glomerular Filt Rate > 60; Glucose 115 mg/dL (75-110); Potassium 3.5 mmol/L (3.4-5.0); Sodium 140 mmol/L (137-145)
[2021-03-11 07:30] LABS: Glucose Point of Care 118 (65-105)
[2021-03-11] MEDS: TAMSULOSIN HCL 0.4 MG CAPSULE PO (08:29)
[2021-03-11] MEDS: POTASSIUM CHLORIDE 20 MEQ TABLET.ER PO (08:29)
[2021-03-11] MEDS: buPROPion HCL XL (24 HR) 150 MG TABCR 300 MG PO (08:29)
[2021-03-11] MEDS: metFORMIN HCL 500 MG TABLET PO (08:29)
[2021-03-11] MEDS: FAMOTIDINE 20 MG/2 ML VIAL IV PUSH ×2 (08:29→21:13)
[2021-03-11] MEDS: GABAPENTIN 300 MG CAPSULE 600 MG PO ×3 (08:29→17:06)
[2021-03-11] MEDS: ASPIRIN 81 MG ENTERIC TABLET PO (08:29)
--- NOTE | 2021-03-11 09:28 | PCOTNOTE ---
Attempted to see patient this am, however patient refused stating, I just got done eating, and my stomach is upset. My food didn't settle well. RN notified. Per nursing, patient has eaten 2 full breakfast trays and is not motivated.
[2021-03-11 11:34] LABS: Glucose Point of Care 134 (65-105)
--- NOTE | 2021-03-11 12:24 | PCOTNOTE ---
Attempted to see patient this pm, however patient refused stating, I don't think that's gonna happen.
--- NOTE | 2021-03-11 12:56 | PM.DS ---
DS: Admitting Diagnosis Admitting Diagnosis Admitting Diagnosis: SHAKIRA DS: Discharge Diagnosis Discharge Diagnosis (1) SHAKIRA (acute kidney injury): Code(s): N17.9 - Acute kidney failure, unspecified Status: Acute Assessment and Plan: Date of Admission 03/08/21 Date of Discharge 03/11/21 Mr. Armstrong is a 75yo M with history of depression, vuq-[id number]-hoebysgbo type 2 diabetes mellitus, COPD, dyslipidemia, atrial fibrillation, CHF who presented to the ED for evaluation because family described decreased appetite over the last 10 days, has been in bed for days. He also reported some intermittent abdominal pain and a dark stool at home. Cr elevated on arrival and he was started on IV hydration. CT brain demonstrated no evidence of acute intracranial findings. CT abdomen showed no evidence of acute intra-abdominal findings to explain abdominal pain. He ate most of all of his meals here at the hospital. No other evidence infection is suspected at this time. Patient admits to feeling down lately, reports no thoughts of hurting himself or others but it is suspected that his symptoms may be related to depression as he is found to have flat/ withdrawn affect. He worked with PT/OT and was felt to be a good candidate to [facility]. Patient agrees this is a safer discharge plan for him. His Cr improved with his home Lasix held and some gentle IV hydration. His home Lasix was resumed once his renal function improved. He is hemodynamically stable for discharge on 03/11/2021 with instructions to follow-up with his PCP once he discharges rehab. He is encouraged to discuss his depression with his PCP and may to benefit from establishing with a counselor as well. He will benefit from following up with GI for colonoscopy. (2) Dehydration: Code(s): E86.0 - Dehydration Status: Acute Assessment and Plan: Patient reports poor appetite for 2 weeks and lesser and lesser oral intake over the last several days. Cr improved after light IV hydration. Denies abdominal pain to me and CT abd shows no acute intraabdominal findings. Eating well here in the hospital. (3) Depression: Qualifiers: Depression Type: unspecified Qualified Code(s): F32.9 - Major depressive disorder, single episode, unspecified Code(s): F32.9 - Major depressive disorder, single episode, unspecified Status: Acute Assessment and Plan: Patient admits to feeling down lately. Reports no thoughts of hurting himself or others. Discussed he will benefit from following up with PCP for further management. Continue his Wellbutrin. May be contributing to his loss of appetite/poor oral intake recently. Stopped talking all of his medications 1-2 weeks ago and is vague on details. Thinks recent cefdinir prescribed for pneumonia made him feel nervous and bad so he stopped taking all medications at that time. Apparently has been mostly in bed for several days, appreciate PT/OT evaluations to determine safe discharge planning. Care coordination aware working on SNF. CT brain obtained due to mental status change shows no evidence of acute intracranial abnormality. (4) Black stools: Code(s): K92.1 - Melena Status: Acute Assessment and Plan: Cannot provide further details. None while here. Ordered to check stool for occult blood with next BM but he did not have a bowel movement. Notes he had colonoscopy years ago and is due for another . We discussed the importance of following up with PCP to schedule outpatient colonoscopy especially given his loss of appetite. (5) Diabetes mellitus: Qualifiers: Diabetes mellitus type: type 2 Diabetes mellitus assisted insulin use: with
[2021-03-11 14:00] VITALS: BP 140/84; PULSE 51; RESP 18; TEMP 36.7; O2SAT 93
[2021-03-11 17:11] LABS: Glucose Point of Care 164 (65-105)
[2021-03-11 20:54] LABS: SARS-CoV-2 RNA PCR Negative
[2021-03-11] MEDS: rOPINIRole HCL 1 MG TABLET PO (21:13)
[2021-03-11 21:37] VITALS: BP 148/73; PULSE 98; RESP 20; TEMP 37; O2SAT 93
[2021-03-11 22:41] LABS: Glucose Point of Care 152 (65-105)
== END 2021-03-11 22:05 | DRG 683 ==
LOC: ANHED 18:44 → ANH3MEDSUR 20:12
PROVIDERS: Admitting Provider Internal Medicine; Emergency Provider Emergency Medicine; PCP Internal Medicine; Visit Provider Physician Assistant
DX: N17.9 Acute kidney failure, unspecified (principal); K92.1 Melena; I50.32 Chronic diastolic (congestive) heart failure; E11.42 Type 2 diabetes mellitus with diabetic polyneuropathy; Z20.822 Contact with and (suspected) exposure to COVID-19; E86.0 Dehydration; F32.9 Major depressive disorder, single episode, unspecified; I48.91 Unspecified atrial fibrillation; J44.9 Chronic obstructive pulmonary disease, unspecified; G47.33 Obstructive sleep apnea (adult) (pediatric); G25.81 Restless legs syndrome; E78.2 Mixed hyperlipidemia; M79.7 Fibromyalgia; M19.90 Unspecified osteoarthritis, unspecified site; R10.9 Unspecified abdominal pain; Z79.82 Long term (current) use of aspirin; Z79.84 Long term (current) use of oral hypoglycemic drugs; Z79.899 Other long term (current) drug therapy; Z88.0 Allergy status to penicillin
CPT/HCPCS: 36415; 51701; 70450; 71046; 74176; 80048; 80053; 81001; 82948; 83690; 83735; 84443; 85025; 96360; 97110; 97161; 97165; 99285; A9270; C9803; J7120; U0003; U0005

== ENCOUNTER → 2021-04-04 14:46 | Outpatient (CLI) | payer OTHER, SELFPAY ==
--- NOTE | ~2021-04-04 | XR_ITS ---
XR chest 2V DATE: 04/04/2021 15:44 INDICATION: Chronic obstructive pulmonary disease TECHNIQUE: 2 views COMPARISON: 03/08/2021 2 view chest FINDINGS: Heart size is within normal range. Is aortic calcification and mild tortuosity. No hilar or mediastinal enlargement is evident. No pulmonary infiltrate or consolidation, pleural effusion or pulmonary vascular congestion or pneumo thorax. There is mild elevation of the left leaf of the diaphragm. Diffuse osteopenia. Mild degenerative spurring and dextroscoliosis of the thoracic spine. IMPRESSION: No active cardiopulmonary disease Reviewed, dictated and finalized at location B.
== END ==
PROVIDERS: PCP Internal Medicine; Visit Provider Internal Medicine
DX: J44.9 Chronic obstructive pulmonary disease, unspecified (principal)
CPT/HCPCS: 71046

== ENCOUNTER 2021-07-28 11:33 | Outpatient (CLI) | payer OTHER, SELFPAY ==
--- NOTE | ~2021-07-28 | US_ITS ---
EXAMINATION: US venous doppler [facility] DATE: 07/28/2021 12:06 INDICATION: Left lower limb swelling TECHNIQUE: Tucker scale images without and with compression and Doppler images of the left lower extrem ity veins were obtained. COMPARISON: 05/07/2019 FINDINGS: The left common femoral vein, profunda femoral vein, femoral vein, popliteal vein, peroneal trunk, posterior tibial veins, and greater saphenous vein are patent. IMPRESSION: 1. Patent left lower extremity veins. No evidence of deep venous thrombosis. Reviewed, dictated and finalized at location B.
== END 2021-07-28 11:34 | disposition home or self-care (01) ==
PROVIDERS: PCP Internal Medicine; Visit Provider Internal Medicine
DX: M79.89 Other specified soft tissue disorders (principal)
CPT/HCPCS: 93971

== ENCOUNTER 2022-01-02 11:10 | Inpatient (IN) | payer OTHER, MEDICAID, SELFPAY ==
--- NOTE | ~2022-01-02 | XR_ITS ---
EXAMINATION: XR foot RT min 3V DATE: 01/02/2022 12:37 INDICATION: Right foot pain TECHNIQUE: Dorsoplantar, lateral, and 2 oblique views of the right foot were obtained. COMPARISON: None. FINDINGS: There is no fracture, dislocation, or subluxation. Moderate osteoarthritis is noted at the first metatarsophalangeal joint. There is soft tissue swelling near the calcaneus. A posterior calcan eal enthesophyte is noted. IMPRESSION: 1. No acute osseous abnormality. Reviewed, dictated and finalized at location A. BUILDER
--- NOTE | ~2022-01-02 | CT_ITS ---
EXAMINATION: CT brain wo con DATE: 01/02/2022 13:04 INDICATION: Altered mental state TECHNIQUE: Computed tomography (CT) of the head was performed without intravenous contrast. The mA wa s adjusted according to patient size. Iterative reconstruction technique was employed. Exam dose: 60 5.33 mGy-cm total exam DLP. COMPARISON: 03/09/2021 CT brain FINDINGS: Prominent bilateral vertebral artery calcification, prominent bilateral carotid siphon inte rnal carotid artery calcifications. There is nonspecific diminished attenuation of the cerebral white matter, likely due to chronic small vessel ischemic changes. No intracranial mass lesion or hemorrhage or cerebrovascular accident is evident. No midline shift or mass effect. No subdural or epidural hematoma. No skull fracture or bone destruction. There is a chronic approximately 10 x 16 mm area of opacification of the lower left mastoid air cells , stable since 03/09/2021. The included mastoid air cells and paranasal sinuses are otherwise unremark able. IMPRESSION: Cerebral atherosclerosis and chronic small vessel ischemic changes of the cerebral white matter No acute intracranial finding Reviewed, dictated and finalized at Location A. Reviewed, dictated and finalized at location B. OONER
--- NOTE | ~2022-01-02 | XR_ITS ---
XR chest 2V DATE: 01/03/2022 11:56 INDICATION: Elevated white blood cell count TECHNIQUE: AP and lateral views COMPARISON: 04/04/2021 2 view chest FINDINGS: Approximately 2.5 cm opacity is noted overlying the right mid to upper lung, lateral to the right suprahilar area. CT thorax is recommended to evaluate for possible pulmonary mass lesion. No pulmonary infiltrate or consolidation, significant pleural effusion or pulmonary vascular congesti on or pneumothorax is detected. Borderline heart size. Aortic calcification and mild unfolding. IMPRESSION: Possible 2.5 cm right upper lobe lung mass; recommend CT thorax for further evaluation Reviewed, dictated and finalized at location B. MACY CARE COORDINATOR
--- NOTE | ~2022-01-02 | XR_ITS ---
EXAMINATION: XR ankle RT min 3V INDICATION: Right ankle pain and swelling TECHNIQUE: Three views of the right ankle are obtained. COMPARISON: None available FINDINGS: Bone alignment is normal. There is no fracture. There is soft tissue swelling near the calc aneus. A posterior calcaneal enthesophyte is noted. Heterotopic ossification near the medial malleolu s suggests prior fracture. IMPRESSION: 1. Soft tissue swelling near the calcaneus without acute osseous abnormality. Reviewed, dictated and finalized at location A. ING TURNER AND COUNTER
--- NOTE | ~2022-01-02 | CT_ITS ---
EXAMINATION: CT diagnostic chest w con DATE: 01/04/2022 10:02 INDICATION: Possible right upper lobe mass TECHNIQUE: Transaxial computed tomographic images of the chest were obtained after the administration of 75 cc of Omnipaque 350 intravenous contrast. The dose-length product (DLP) was 480.80 mGy-cm. Ite rative reconstruction was used. COMPARISON: 05/29/2016 FINDINGS: There is a 3.1 x 2.2 cm perihilar right upper lobe mass. There are calcified pleural plaque s on the right which may reflect prior asbestos exposure. No pleural effusion or pneumothorax is iden tified. No pathologically enlarged thoracic lymph nodes are identified. The heart size is normal. The re is mild thoracic spondylosis. IMPRESSION: 1. Perihilar right upper lobe mass concerning for primary bronchogenic carcinoma. Reviewed, dictated and finalized at location A. CULTIVATOR IMPRESSION: 1. Perihilar right upper lobe mass concerning for primary bronchogenic carcinom a.
--- NOTE | ~2022-01-02 | XR_ITS ---
EXAMINATION: XR chest 1V portable DATE: 01/09/2022 13:38 INDICATION: Aspiration pneumonia TECHNIQUE: frontal view of the chest was obtained. COMPARISON: Chest radiograph dated 01/03/[address] dated 01/04/2022 FINDINGS: 3.5 cm paramediastinal right upper lobe mass. Mild opacities in the right lower lung zone which could represent atelectasis, aspiration or pneumonia. More dense paramediastinal calcified pleural plaques along the medial right mid to lower lung zone. No pleural effusion or pneumothorax. Cardiomediastina l silhouette is within normal limits for AP technique. Calcified right hilar lymph nodes consistent w ith old granulomatous disease. IMPRESSION: 1. Right upper lobe mass concerning for primary bronchogenic carcinoma. 2. Mild opacities in the right lower lung zone which could represent atelectasis, aspiration or pneum onia. 3. Unilateral right-sided calcified pleural plaques consistent with a prior exudative effusion which may be due to either infection or pneumothorax. Reviewed, dictated and finalized at location A. EAR WEAPONS MECHANICAL SPECIALIST IMPRESSION: 1. Right upper lobe mass concerning for primary bronchogenic carcinoma. 2. Mild opacities in the right lower lung zone which could represent atelectasi s, aspiration or pneumonia. 3. Unilateral right-sided calcified pleural plaques consistent with a prior exu dative effusion which may be due to either infection or pneumothorax.
--- NOTE | ~2022-01-02 | US_ITS ---
EXAMINATION: US carotid duplex BI DATE: 01/03/2022 11:55 INDICATION: Transient ischemic attack. TECHNIQUE: Grayscale, color Doppler, and pulsed Doppler images of the cervical carotid arteries were obtained. The degree of vessel stenosis is placed in one of the following categories: normal, <50%, 5 0-69%, >=70% but less than near-occlusion, near-occlusion, or total occlusion. Note that percent sten osis relative to normal distal artery lumen diameter is indirectly measured from velocity measurement s as described by Miguel, et al. Radiology 2003; 229:[id number]. COMPARISON: None. FINDINGS: RIGHT: The right common carotid artery (CCA) peak systolic velocity (PSV) is 61 cm/s. The right internal car otid artery (ICA) PSV is 46 cm/s. The right ICA end-diastolic velocity (EDV) is 12 cm/s. The right IC A/CCA PSV ratio is 0.8. Grayscale and color Doppler images yield an estimate of <50% diameter reducti on from plaque in the ICA. There is antegrade flow in the right vertebral artery. LEFT: The left CCA PSV is 57 cm/s. The left ICA PSV is 63 cm/s. The left ICA EDV is 14 cm/s. The left ICA/C CA PSV ratio is 1.1. Grayscale and color Doppler images yield an estimate of <50% diameter reduction from plaque in the ICA. There is antegrade flow in the left vertebral artery. IMPRESSION: 1. <50% stenosis in the right internal carotid artery. 2. <50% stenosis in the left internal carotid artery. Reviewed, dictated and finalized at location A. TION DESCRIPTION MANAGER
--- NOTE | ~2022-01-02 | CT_ITS ---
EXAMINATION: CT biopsy lung w/imaging DATE: 01/10/2022 11:58 INDICATION: Right upper lobe mass TECHNIQUE: The procedure including the risks and benefits was discussed with the patient. Risks discu ssed included infection, approximately 1/20 risk of symptomatic hemorrhage beyond mild hemoptysis, ap proximately 1/3 risk of pneumothorax, and approximately 1/10 risk of pneumothorax severe enough to wa rrant chest tube placement. The patient understood the risks and agreed to proceed. The patient was p laced supine. The skin overlying the pectoral region of the anterior right chest wall was prepped an d draped in sterile fashion. Anesthetic was administered with 1% lidocaine subcutaneously. A 19 gau ge outer needle was advanced under CT guidance to the lesion of interest. A 20 gauge core biopsy need le was then used to obtain 3 core biopsy specimens. The needle was removed and the entry site was hola aned and dressed. There were no immediate complications. The dose-length product was 257.14 mGy-cm. FINDINGS: CT images demonstrate the outer needle tip adjacent to a 3.3 cm spiculated perihilar mass i n the right upper lobe. There is a small amount of pulmonary hemorrhage around the needle tract. Calc ified pleural plaques at the posterior right lower lobe likely sequela of a prior exudative effusion. IMPRESSION: 1. Successful CT-guided biopsy of 3.3 cm perihilar right upper lobe mass. Reviewed, dictated and finalized at location A. ENT PRESSER
--- NOTE | ~2022-01-02 | MR_ITS ---
EXAMINATION: MR brain/brain stem wo/w con DATE: 01/03/2022 11:28 INDICATION: Altered mental status. TECHNIQUE: Magnetic resonance imaging (MRI) of the brain and brainstem was performed without and with 20 mL MultiHance intravenous contrast. Sequences included sagittal and axial T1-weighted FSE, axial diffusion-weighted FS EPI, axial T2*-weighted GRE, axial T2-weighted FLAIR Propeller, and axial T2-we ighted Propeller. Postcontrast sequences included axial and coronal T1-weighted FSE. Apparent diffusi on coefficient (ADC) maps were created. COMPARISON: Head CT 01/02/2022 FINDINGS: There are scattered areas of nonspecific increased T2-weighted signal intensity in the cere bral white matter and greg. There is pachymeningeal thickening and enhancement. There is no intracran ial hemorrhage, acute infarction, or abnormal intracranial mass lesion. The ventricles are normal in size. There is a small left mastoid effusion. There is mild mucosal thickening in the ethmoid sinuses . The orbits are normal. IMPRESSION: 1. Moderate nonspecific cerebral white matter disease and pontine disease, which likely represents ch ronic small vessel ischemic disease. 2. Pachymeningeal thickening and enhancement. This finding is most commonly secondary to prior lumbar puncture or spine surgery. If the patient has never had one of these procedures, note that this find ing can also be seen with meningitis. Reviewed, dictated and finalized at location A. MICS MACHINE OPERATOR IMPRESSION: 1. Moderate nonspecific cerebral white matter disease and pontine disease, whic h likely represents chronic small vessel ischemic disease. 2. Pachymeningeal thickening and enhancement. This finding is most commonly sec ondary to prior lumbar puncture or spine surgery. If the patient has never had one of these procedures, note that this finding can also be seen with meningiti s.
--- NOTE | ~2022-01-02 | XR_ITS ---
EXAMINATION: XR abdomen/kub 1V INDICATION: Constipation TECHNIQUE: Supine views of the abdomen were obtained on 2 radiographs. COMPARISON: 01/06/2019 FINDINGS: The bowel gas pattern is nonspecific. A normal volume of colonic stool is present. No dilat ed loops of bowel are evident. There is lumbar levoscoliosis. The visualized lung bases are clear. Th ere is mild osteoarthritis of the hips. IMPRESSION: 1. Nonspecific bowel gas pattern, normal volume of colonic stool. Reviewed, dictated and finalized at location A. TER COMMERCIAL
--- NOTE | ~2022-01-02 | US_ITS ---
EXAMINATION:US venous doppler LE BI INDICATION:DVT. TECHNIQUE: Multiple grayscale, color flow and Doppler images of the right and left lower extremity de ep venous systems were obtained and reviewed. COMPARISON:07/28/2021 FINDINGS: The common femoral, superficial femoral and popliteal veins demonstrate normal respiratory variation, augmentation and compressibility. Color flow is also seen within the posterior tibial, pe roneal, greater saphenous and profunda veins. IMPRESSION: 1: No lower extremity deep venous thrombosis. Reviewed, dictated and finalized at location A. SILICON PREPARATION WORKER
--- NOTE | ~2022-01-02 | XR_ITS ---
EXAMINATION: XR lumbar puncture diagnostic DATE: 01/04/2022 10:55 INDICATION: Altered mental status. Pachymeningeal enhancement on MRI. TECHNIQUE: The procedure including the risks and benefits was discussed with the patient. Risks discu ssed included spinal headache, cerebrospinal fluid leak, bleeding, and infection. The patient underst ood the risks and agreed to proceed. A timeout was performed to verify the patient's name, date of , and procedure to be performed. The skin overlying the L3-L4 level was prepped and draped in usual sterile fashion. Subcutaneous 1% lidocaine was used for local anesthesia. A 22 gauge spinal n eedle was advanced under fluoroscopic guidance. The needle was removed and the entry site was cleaned and dressed. There were no immediate complications. A total of 3 fluoroscopic images and one radiog raph were obtained. The amount of fluoroscopy time used during this procedure was 0.7 minutes. FINDINGS: Real-time fluoroscopy demonstrates the needle at the L3-L4 level. Opening pressure was 16 c m water. (Normal range is variably defined as 6-20 cm water and up to 25 cm water in obese patients. Pressure >25 cm water is one of the modified Dandy criteria for idiopathic intracranial hypertension) . 12 mL of clear, colorless fluid was collected in 4 tubes. IMPRESSION: 1. Successful fluoro-guided lumbar puncture. Reviewed, dictated and finalized at location A. IFICATION OPERATOR
--- NOTE | ~2022-01-02 | XR_ITS ---
EXAMINATION: XR chest 1V DATE: 01/10/2022 12:03 INDICATION: Status post percutaneous right lung biopsy TECHNIQUE: frontal view of the chest was obtained. COMPARISON: Chest radiograph dated 01/09/2022 FINDINGS: New mild opacities extending peripherally from the biopsied right upper lobe nodule likely representi ng a small amount of post biopsy hemorrhage. Unchanged mild opacities in the right lower lung zone co rresponding to a band of discoid atelectasis along the right major fissure and some medial sided calc ified pleural plaque on the right mid to lower lung zone which are better appreciated on the marketing services manager CT obtained prior to the biopsy. No pleural effusion or pneumothorax. Mild cardiomegaly. IMPRESSION: 1. Small amount of palmar hemorrhage extending peripherally from the biopsied right upper lobe nodule which is concerning for primary bronchogenic carcinoma. No pneumothorax. 2. Calcified pleural plaques and some chronic atelectasis/scarring in the right mid to lower lung zon e. 3. Cardiomegaly. Reviewed, dictated and finalized at location A. ANICAL MAINTENANCE SUPERVISOR IMPRESSION: 1. Small amount of palmar hemorrhage extending peripherally from the biopsied r ight upper lobe nodule which is concerning for primary bronchogenic carcinoma. No pneumothorax. 2. Calcified pleural plaques and some chronic atelectasis/scarring in the right mid to lower lung zone. 3. Cardiomegaly.
[2022-01-02 11:17] VITALS: BP 163/95; PULSE 82; RESP 20; TEMP 35.8; O2SAT 96
--- NOTE | 2022-01-02 12:08 | ED.GENADULT ---
HPI - General Adult General Chief complaint: Unspecified Stated complaint: constipated Time Seen by Provider: 01/02/22 12:04 Source: patient Mode of arrival: ambulatory Limitations: no limitations History of Present Illness HPI narrative: The patient is a 76-year-old diabetic male with CHF, COPD, and known depression who is brought to the hospital by EMS today after staff at assisted living facility found him to have altered mental status. Reportedly, patient's appetite has been reduced, pt refusing to eat or drink at facility. Pt had been a good historian until three days ago when he was assessed by nursing facility and they found him to be confused from baseline. Pt has been giving his medications as prescribed. Pt has been refusing to eat, after speaking with head of staff at facility, she states patient has not eaten since Saturday. States patient has been more agitated. She states that he kicked his out of the apartment yesterday. Pt moved to her apartment per staff. No fever, chills per staff. Unknown if he has been constipated. Reportedly, EMS was called to take the patient to the emergency department, initially patient was refusing to be transferred. Asked for all of the staff at the nursing facility to leave his apartment, when EMS personnel were there, stated that he had been constipated without a bowel movement over the past 8 to 10 days. Patient was able to be coaxed into coming to the emergency department. On my assessment, pt is alert to person, not to place or time. He denies any pain at first, then reports right foot and ankle pain. When questioned about constipation, patient denies being constipated. He is denying any current chest or abdominal pain. He denies any current shortness of breath, fever, chills. I do feel that patient is not a reliable historian. Additional history cannot be obtained. Related Data Home Medications Medication Instructions Recorded Confirmed aspirin 81 mg tablet,delayed 81 mg PO DAILY 11/06/19 08/17/21 release ropinirole 1 mg tablet 1 mg PO .QHS tablet 12/18/19 08/17/21 bupropion HCl 300 mg PO DAILY 03/09/21 08/17/21 spironolactone 25 mg PO DAILY 03/09/21 08/17/21 tamsulosin 0.4 mg PO DAILY 03/09/21 08/17/21 Allergies Allergy/AdvReac Type Severity Reaction Status Date / Time Penicillins Allergy Unknown Rash Verified 08/17/21 13:48 Review of Systems Review of Systems: CONSTITUTIONAL: Denies fever CARDIOVASCULAR: Denies chest pain RESPIRATORY: Denies cough or dyspnea. GASTROINTESTINAL: Denies abdominal pain SKIN: Denies rash MUSCULOSKELETAL: Denies back pain, reports right foot pain NEUROLOGIC: Denies headache PMFSH Past Medical History Medical History Arthritis (03/26/19) Atrial fibrillation with controlled ventricular rate Chronic congestive heart failure COPD (chronic obstructive pulmonary disease) Depression Diabetes mellitus Diabetic polyneuropathy associated with type 2 diabetes mellitus Fibromyalgia Mixed hyperlipidemia ANIA (obstructive sleep apnea) Restless legs syndrome Surgical History Surgical History History of hernia repair Family History Family History Sibling Patient's sister is in good health Hypertension Family history of heart disease in male family member before age 55 Mother Family history of heart disease in male family member before age 55 Patient's mother is Family history of congestive heart failure, Onset Age: 70 Father Patient's father is Acute myocardial infarction, Onset Age: 62 Grandparent Depression Family history of arthritis Family history of malignant neoplasm of breast Family history of heart disease in male family member before age 55 Other Cerebrovascular accident Family history of cardiova
[2022-01-02] MEDS: ACETAMINOPHEN 500 MG TABLET 1000 MG PO (12:33)
[2022-01-02 12:42] LABS: Basophils Absolute Auto 0.1 K/mm3 (0.0-0.1); Basophils Percent Auto 0.7 % (0.2-1.2); Eosinophils Absolute Auto 0.1 K/mm3 (0-0.3); Eosinophils Percent Auto 1.5 % (0-4.4); Hematocrit 45.6 % (42.0-52.0); Hemoglobin 15.6 g/dL (14.0-18.0); Immature Granulocyte Absolute 0.02 K/mm3 (0.00-0.031); Immature Granulocyte Percent A 0.2 % (0-0.5); Lymphocytes Absolute Auto 1.14 K/mm3 (0.9-3.2); Lymphocytes Percent Auto 13.1 % (18.3-44.2); Mean Corpuscular HGB Conc 34.2 g/dl (32-36); Mean Corpuscular Hemoglobin 32.1 pg (26-34); Mean Corpuscular Volume 93.8 fl (80-100); Mean Platelet Volume 10.7 fl (7.4-10.4); Monocytes Absolute Auto 0.7 K/mm3 (0.1-0.6); Monocytes Percent Auto 8.1 % (2.6-8.5); Neutrophils Absolute Auto 6.6 K/mm3 (1.3-6.7); Neutrophils Percent Auto 76.4 % (45.5-73.1); Platelet Count Result 149 k/mm3 (150-375); Red Blood Count 4.86 M/mm3 (4.6-6.20); Red Cell Distribution Width 13.3 % (11.5-14.5); White Blood Count 8.7 K/mm3 (4.5-10.0)
[2022-01-02] MEDS: SODIUM CHLORIDE 0.9% IV 1,000 ML 999 ML IV CONT ×2 (12:45→15:43)
--- NOTE | 2022-01-02 12:50 | ECG_ITS ---
Measurements Intervals [place] Rate: 85 P: 51 ID: [id number] QRS: 39 QRSD: 105 T: 87 QT: 378 QTc: 451 Interpretive Statements SINUS RHYTHM BORDERLINE ST-T WAVE ABNORMALITY- ANTEROLAT/INF LEADS BASELINE ARTIFACT- I, II, III, AVR, AVL, AVF, V1-V6 BORDERLINE ECG Electronically Signed On 01-02-2022 15:44:01 ACCOUNTING SPECIALIST by Trell Walters D.O.
[2022-01-02 12:52] LABS: Anion Gap 14 mmol/L (8-16); Blood Urea Nitrogen 22 mg/dL (9-20); Calcium 9.4 mg/dL (8.4-10.2); Carbon Dioxide 22 mmol/L (22-30); Chloride 103 mmol/L (98-107); Estimated CRCL calculation 79 ml/min; Estimated Glomerular Filt Rate > 60; Glucose 83 mg/dL (65-110); Potassium 3.6 mmol/L (3.4-5.0); Sodium 139 mmol/L (137-145)
[2022-01-02 12:56] LABS: CRP 1.5 mg/dL (<1.0)
[2022-01-02 13:15] LABS: Erythrocyte Sedimentation Rate 16 mm/hr (0-20)
[2022-01-02 13:33] LABS: Ammonia < 9 umol/L (9-30)
[2022-01-02 13:45] LABS: Troponin I 0.017 ng/mL (0.000-0.034)
[2022-01-02 13:47] VITALS: BP 136/78; PULSE 76; RESP 18; O2SAT 99
[2022-01-02 14:09] LABS: Add Urine Microscopic? YES; Appearance Urine Clear (Clear); Bilirubin Urine 1+ (Negative); Blood Urine Negative (Negative); Color Urine Amber (Yellow); Glucose Urine UA Negative (Negative); Ketones Urine 2+ mg/dL (Negative); Leukocyte Esterase Ur Negative LEU/UL (Negative); Mucus Urine Rare /lpf; Nitrate Urine Negative (Negative); Protein Urine 1+ mg/dL (Negative); RBC Urine 0-2 /hpf (0-2)
[2022-01-02 14:22] LABS: Amphetamine Screen Urine Negative (Negative); Barbiturate Screen Urine Negative (Negative); Benzodiazepines Screen Urine Negative (Negative); Cannabinoid Screen Urine Negative (Negative); Cocaine Screen Urine Negative (Negative); Methadone Screen Urine Positive (Negative); Opiate Screen Urine Negative (Negative); Phencyclidine Screen Urine Negative (Negative)
[2022-01-02 15:08] LABS: Specific Grav Ur 1.031 (1.001-1.035)
[2022-01-02 19:32] VITALS: BP 132/68; PULSE 80; RESP 18; O2SAT 99
--- NOTE | 2022-01-02 20:47 | PC.NURSE ---
patient continues to refuse to remove clothing accusing this nurse of wanting to take his clothing
[2022-01-02 21:16] LABS: Glucose Point of Care 100 mg/dl (65-105)
[2022-01-02 21:34] VITALS: BP 130/72; PULSE 64; RESP 18; O2SAT 99
[2022-01-02 22:35] VITALS: BP 177/73; PULSE 87; RESP 18; TEMP 36.3; O2SAT 94
--- NOTE | 2022-01-02 23:17 | ADMGEN ---
This patient, Farhan Armstrong, was admitted to Medical Room 344-01. Patient/family oriented to hospital policies and general routines including ID bracelet, bed and alarms, visiting hours, pain management, procedures, bathroom and other care routines, personal items, smoking policy, room service/diet, and visiting hours. Information on how to activate the Rapid Response Team has been discussed. Patient/Family are encouraged to report perceived risks to care and to ask questions if they do not understand what they are told or what they should do.
[2022-01-02 23:48] VITALS: O2SAT 94
--- NOTE | 2022-01-02 23:48 | PCRCNOTE ---
patient stated that he did not want to use a hospital cpap/bipap unit; RN was present
[2022-01-02] MEDS: SODIUM CHLORIDE 0.9% IV 1,000 ML 125 ML IV CONT (23:51)
[2022-01-03] VITALS (8 sets, daily range): BP systolic 164–169; BP diastolic 70–86; PULSE 73–86; RESP 16–18; TEMP 36.1–36.6; O2SAT 95–97
--- NOTE | 2022-01-03 | ECHO_ITS ---
Patient Info Name: Farhan Armstrong Age: 76 years : 1945 Gender: Male Ht: 69 in Wt: 231 lbs BSA: 2.30 m2 HR: 75 bpm BP: 171 / 73 mmHg Heart Rhythm: Sinus Rhythm Exam Date: 01/03/2022 1:53 PM Exam Location: [facility] Patient Status: Outpatient Admit Date: 01/02/2022 Staff Ordering Physician: Francine Perdomo NP Hand Upper And Bottom Lacer: Alexander Ontiveros RDCS, RT Attending Provider: Kandy Francois PA-C Referring Physician: Leanne STANLEY; Exam Type: CA echo dop color flow w con Study Info Indications G45.9 - Transient cerebral ischemic attack, unspecified Complete two-dimensional, color flow and Doppler transthoracic echocardiogram is performed with contrast to opacify the left ventricle and to improve the deliniation of the left ventricle endocardial borders. Summary 1. Technically difficult study with limited views. Definity echo contrast used without clear regional wall motion abnormalities noted. 2. Left ventricular systolic function is normal, estimated at 55-60%. 3. Left ventricular chamber dimension is normal. 4. There is mildly increased left ventricular wall thickness. 5. The left ventricular diastolic function is grade I diastolic dysfunction. 6. There is mild aortic valve stenosis with a peak velocity of 240.36 cm/s, mean gradient of 11 mmHg, and aortic valve area of 1.61 cm2. 7. Unable to estimate PA systolic pressure due to poor spectral resolution of tricuspid regurgitant jet velocity. 8. Dilated inferior vena cava with >50% collapse upon inspiration consistent with elevated right atrial pressure, 10 mmHg. Left Ventricle Left ventricular chamber dimension is normal. Left ventricular systolic function is normal, estimated at 55-60%. There is mildly increased left ventricular wall thickness. The left ventricular diastolic function is grade I diastolic dysfunction. Technically difficult study with limited views. Definity echo contrast used without clear regional wall motion abnormalities noted. Right Ventricle Right ventricular chamber dimension is normal. Right ventricular systolic function is normal. Left Atria Left atrial chamber dimension is mildly enlarged. Right Atria Right atrial chamber dimension is normal. Aortic Valve The aortic valve is not well visualized. There is mild aortic valve stenosis with a peak velocity of 240.36 cm/s, mean gradient of 11 mmHg, and aortic valve area of 1.61 cm2. There is no aortic valve regurgitation. Pulmonic Valve The pulmonic valve is not well visualized. Mitral Valve The mitral valve has thickened leaflets. There is no mitral valve regurgitation. The mitral valve annulus is moderately calcified. Tricuspid Valve The tricuspid valve leaflets are normal. There is trace tricuspid valve regurgitation. Unable to estimate PA systolic pressure due to poor spectral resolution of tricuspid regurgitant jet velocity. Pericardium/Pleural The pericardium appears not well visualized. Inferior Vena Cava Dilated inferior vena cava with >50% collapse upon inspiration consistent with elevated right atrial pressure, 10 mmHg. Aorta The aortic root size at the sinus of Valsalva is normal. Left Ventricular Outflow Tract Name Value Normal LVOT 2D LVOT Diameter
--- NOTE | 2022-01-03 01:26 | PM.IMHP ---
H&P: HPI History of Present Illness Date/Time: 01/02/22 [id number] this is a 76-year-old male patient who resides with his in an assisted living. He has a history of COPD and CHF. He was brought to the emergency room via ambulance after the staff noticed that the patient had altered mental status. Apparently the patient has not been eating very well and refused to eat and drink. According to the son the patient is depressed. The patient had been a good historian until 3 days ago when the staff found him to be confused. They have been giving him medication as prescribed. The patient was refusing to eat for the patient became more agitated and kicked the out of the apartment yesterday. The patient had no fever or chills. The patient was refusing to be transferred to the hospital. He was finally cokes in the coming to the hospital. The patient has been complaining of having some discomfort to his feet. When I assessed him the patient know exactly what room he was not in where he is. He does not recall the events re kicked his out of the apartment. His CRP was 1.5 which was only minimally elevated. The patient was positive for methadone which it looks like he is prescribed that medication. Head CT was read as cerebral atherosclerosis and chronic small-vessel ischemic changes of the cerebral white matter. No acute intracranial findings. Abdominal x-ray nonspecific bowel gas pattern normal volume of colonic stool. Foot x-ray was read as no acute osseous abnormality. Ankle x-ray soft tissue swelling near the Koul cannulas without acute osseous abnormality. The patient is admitted to observation status on the date of service of 01/02/2022. Chief Complaint: Altered mental status and agitation Review of Systems Review of Systems: All systems reviewed & are unremarkable except as noted in HPI and below Constitutional: Constitutional: Reports as per HPI and Reports no additional constitutional complaints Eyes: Eyes: Reports as per HPI and Reports no additional eye complaints ENT: Reports system reviewed and no additional complaints, except as documented and Reports Normal hearing present Cardiovascular: Cardiovascular: Reports no additional cardiovascular complaints Respiratory: Respiratory: Reports no additional respiratory complaints and Reports no additional respiratory complaints Gastrointestinal: Gastrointestinal: Reports as per HPI and Reports no additional gastrointestinal complaints Musculoskeletal: Musculoskeletal: Reports no additional musculoskeletal complaints Integumentary/Breasts: Skin/Breast: Reports system reviewed and no additional complaints, except as docu and Reports as per HPI Neurologic: Reports system reviewed and no additional complaints, except as documented, Reports as per HPI and Reports Normal hearing present Psychiatric: Psychiatric: Reports no additional psychiatric complaints and Reports as per HPI Endocrine: Endocrine: Reports no additional endocrine complaints Hematologic/Lymphatic: Hematologic/Lymphatic: Reports no additional hematologic/lymphatic complaints Allergic/Immunologic: Allergic/Immunologic: Reports no additional allergic/immunologic complaints [facility] Past Medical History Medical History (Updated 01/03/22 @ 01:45 by Francine Perdomo NP) Arthritis (03/26/19) Atrial fibrillation with controlled ventricular rate Chronic congestive heart failure COPD (chronic obstructive pulmonary disease) Depression Diabetes mellitus Diabetic polyneuropathy associated with type 2 diabetes mellitus Fibromyalgia Mixed hyperlipidemia ANIA (obstructive sleep apnea) Restless legs syndrome Surgical History Surgical History History of hernia repair Family History Family History Sibling Patient's sister is in good health Hypertension Family history of heart disease in male family member adolph
[2022-01-03] MEDS: methADONE HCL (*CRX) 5 MG TABLET PO ×4 (05:20→23:58)
[2022-01-03 05:52] LABS: Hemoglobin A1C 4.9 % (<5.7)
[2022-01-03 05:55] LABS: Basophils Absolute Auto 0.1 K/mm3 (0.0-0.1); Basophils Percent Auto 0.5 % (0.2-1.2); Eosinophils Absolute Auto 0.3 K/mm3 (0-0.3); Eosinophils Percent Auto 2.5 % (0-4.4); Hemoglobin 14.4 g/dL (14.0-18.0); Immature Granulocyte Absolute 0.05 K/mm3 (0.00-0.031); Immature Granulocyte Percent A 0.5 % (0-0.5); Lymphocytes Absolute Auto 1.43 K/mm3 (0.9-3.2); Lymphocytes Percent Auto 13.9 % (18.3-44.2); Mean Corpuscular HGB Conc 34.3 g/dl (32-36); Mean Corpuscular Hemoglobin 31.4 pg (26-34); Mean Corpuscular Volume 91.5 fl (80-100); Monocytes Absolute Auto 0.9 K/mm3 (0.1-0.6); Monocytes Percent Auto 8.6 % (2.6-8.5); Neutrophils Absolute Auto 7.6 K/mm3 (1.3-6.7); Platelet Count Result 149 k/mm3 (150-375); Red Blood Count 4.59 M/mm3 (4.6-6.20); White Blood Count 10.3 K/mm3 (4.5-10.0)
[2022-01-03 05:59] LABS: Anion Gap 9 mmol/L (8-16); Blood Urea Nitrogen 14 mg/dL (9-20); Calcium 8.5 mg/dL (8.4-10.2); Carbon Dioxide 25 mmol/L (22-30); Chloride 103 mmol/L (98-107); Estimated CRCL calculation 103 ml/min; Estimated Glomerular Filt Rate > 60; Glucose 68 mg/dL (65-110); Lactate Dehydrogenase 316 U/L (313-618); Magnesium 1.5 mg/dL (1.6-2.3); Phosphorus 2.9 mg/dL (2.5-4.5); Potassium 3.2 mmol/L (3.4-5.0); Sodium 137 mmol/L (137-145)
[2022-01-03] MEDS: SODIUM CHLORIDE 0.9% IV 1,000 ML 125 ML IV CONT (07:02)
[2022-01-03] MEDS: metFORMIN HCL 500 MG TABLET PO (08:19)
[2022-01-03] MEDS: ARIPiprazole 2 MG TABLET 4 MG PO (08:19)
[2022-01-03] MEDS: SPIRONOLACTONE 25 MG TABLET PO (08:19)
[2022-01-03] MEDS: ASPIRIN 81 MG ENTERIC TABLET PO (08:19)
[2022-01-03] MEDS: GABAPENTIN 300 MG CAPSULE 600 MG PO ×3 (08:19→16:45)
[2022-01-03] MEDS: TAMSULOSIN HCL 0.4 MG CAPSULE PO (08:19)
[2022-01-03] MEDS: FUROSEMIDE 20 MG TABLET 60 MG PO ×2 (08:19→16:45)
[2022-01-03] MEDS: buPROPion HCL XL (24 HR) 150 MG TABCR 300 MG PO (08:19)
[2022-01-03 08:32] LABS: Glucose Point of Care 84 mg/dl (65-105)
[2022-01-03 08:32] LABS: Glucose Point of Care 68 mg/dl (65-105)
--- NOTE | 2022-01-03 08:48 | PC.NURSE ---
Patient blood sugar was 68 this morning, patient is alert and breakfast is at bedside. Nurse encouraged patient to eat some food and nurse will be back later to recheck blood glucose. Blood glucose was recheck and it came up to 84. Patient eating breaking now and had all of his juice.
--- NOTE | 2022-01-03 10:17 | PCPTNOTE ---
Initial evaluation attempted, Pt refused at this time. Per MAGALIS Franco, Pt is refusing med, food, water, ect. Will attempt again in the afternoon.
[2022-01-03] MEDS: POTASSIUM CHLORIDE 20 MEQ TABLET 40 MEQ PO (10:18)
[2022-01-03] MEDS: MAGNESIUM SULFATE 3GM/D5W100ML 3 GM/100 ML BAG IVPB (12:06)
[2022-01-03 12:18] LABS: Glucose Point of Care 109 mg/dl (65-105)
--- NOTE | 2022-01-03 12:22 | PCSTNOTE ---
Please refer to the Bedside Swallow Evaluation in the EMR. Please note, silent aspiration cannot be ruled out at bedside.
[2022-01-03] MEDS: PERFLUTREN LIPID MICROSPHERES 1.5 ML VIAL DILUTED TO 10 ML TOTAL VOLUME IV PUSH (14:12)
--- NOTE | 2022-01-03 14:12 | IVDEFINITY ---
Prior to administration of IV Definity the patient was educated on the risks and benefits of the imaging enhancing agent including potential adverse side effects. The patient verbalized understanding. Allergies were verified. No exclusion criteria were identified and at least one of the following inclusion criteria were met: 1) physician request, 2) patient technically difficult to image (per the [place] [employer] Echocardi[employer] guidelines of two or more segments not discernable within the apical view), or 3) questionable left ventricular function. ?
--- NOTE | 2022-01-03 16:32 | PM.IMPN ---
Progress Note: A&P Assessment and Plan (1) Altered mental status: Code(s): R41.82 - Altered mental status, unspecified Status: Acute Assessment and Plan: Patient is a 76-year-old man with a history of arthritis, CHF, COPD, depression, diabetes with neuropathy, ANIA, fibromyalgia, who presented to the emergency room with confusion from his assisted living facility. As per records the patient has had some confusion for the last 3 days and he has not been eating or drinking very much. Prior to arrival he had kicked his out of the apartment but he does not recall doing this. Patient's son is concerned of depression and thinking he needs medications adjusted. Initial vitals showed elevated blood pressure 163/95, heart rate 82 beats per minute, afebrile, oxygen 96% on room air. Initial labs showed normal white blood cell count at 8000, slight elevation neutrophils at 76%. Slight thrombocytopenia 149,000. BMP showed normal creatinine, slightly elevated BUN at 22, ammonia was normal. Troponin was within normal limits at 0.017. CRP 1.5. TSH normal. Urinalysis showed no signs of an acute infection. Urine drug screen was positive for methadone which he is prescribed. CT head showed Cerebral atherosclerosis and chronic small vessel ischemic changes of the cerebral white matter. No acute intracranial finding. Patient initially was confused and complaining of right foot pain and constipation but x-ray abdomen showed normal volume of colonic stool and nonspecific bowel gas pattern. X-ray of the patient's right foot and ankle showed no osseous abnormality. Patient was admitted to hospital for confusion workup and had ordered an MRI, telemetry monitoring, carotid Dopplers, echocardiogram for further evaluation. Chest x-ray was completed to rule out possible pneumonia as an infection, chest x-ray showed possible to 0.5 cm right upper lobe lung mass, recommend CT thorax for further evaluation. I discussed this with the patient and at this time he states he has had enough testing for today and may not want have this done at this time. I told him I will order it and if he would like to refuse he can. This can also be worked up as an outpatient with his primary care provider. I informed the son as well. Carotid Doppler showed less than 50% stenosis bilaterally. Echocardiogram pending. MRI showed Moderate nonspecific cerebral white matter disease and pontine disease, which likely represents chronic small vessel ischemic disease. Pachymeningeal thickening and enhancement. This finding is most commonly secondary to prior lumbar puncture or spine surgery. If the patient has never had one of these procedures, note that this finding can also be seen with meningitis. I discussed MRI findings with the patient and his son. Patient states he has had an of testing for today and is concerned about the pain he will have with the lumbar puncture. I discussed the risks benefits of the lumbar puncture as well as the need to rule out acute versus chronic meningitis. Patient's son would like for him to complete the testing right now the patient is on the fence. I told him we will order the test and he can always refuses if he would like. Talked with Dr. Felix Neurology recommends a lumbar puncture with further testing, g stain, cultures, cytology, and to make sure we get it sarcoidosis testing from the cerebral spinal fluid Neurology was constant for further evaluation and recommendations Continue monitoring. (2) Foot pain, right: Code(s): M79.671 - Pain in right foot Status: Acute Assessment and Plan: This appears to be chronic from his neuropathy. Patient is on chronic medication with Methadone. Wound nurses evaluated and recommends Daily apply mepilex border to right plantar heel for cushion. (3) Dehydration: Code(s): E86.0 - Dehydration
[2022-01-03 17:12] LABS: Glucose Point of Care 122 mg/dl (65-105)
[2022-01-03] MEDS: rOPINIRole HCL 1 MG TABLET PO (20:43)
[2022-01-03 20:57] LABS: Glucose Point of Care 148 mg/dl (65-105)
[2022-01-04] VITALS (15 sets, daily range): BP systolic 138–188; BP diastolic 78–117; PULSE 84–103; RESP 16–18; TEMP 36.2; O2SAT 90–95
[2022-01-04] MEDS: methADONE HCL (*CRX) 5 MG TABLET PO ×4 (05:36→22:55)
[2022-01-04] MEDS: hydrALAZINE HCL 20 MG/ML VIAL 10 MG IV PUSH ×2 (05:36→21:34)
[2022-01-04 05:50] LABS: Basophils Absolute Auto 0.1 K/mm3 (0.0-0.1); Basophils Percent Auto 0.6 % (0.2-1.2); Eosinophils Absolute Auto 0.4 K/mm3 (0-0.3); Eosinophils Percent Auto 3.8 % (0-4.4); Hematocrit 43.4 % (42.0-52.0); Hemoglobin 15.3 g/dL (14.0-18.0); Immature Granulocyte Absolute 0.04 K/mm3 (0.00-0.031); Immature Granulocyte Percent A 0.4 % (0-0.5); Lymphocytes Absolute Auto 1.61 K/mm3 (0.9-3.2); Lymphocytes Percent Auto 16.6 % (18.3-44.2); Mean Corpuscular HGB Conc 35.3 g/dl (32-36); Mean Corpuscular Hemoglobin 31.7 pg (26-34); Mean Platelet Volume 11.1 fl (7.4-10.4); Monocytes Percent Auto 10.3 % (2.6-8.5); Neutrophils Absolute Auto 6.6 K/mm3 (1.3-6.7); Neutrophils Percent Auto 68.3 % (45.5-73.1); Platelet Count Result 155 k/mm3 (150-375); Red Blood Count 4.82 M/mm3 (4.6-6.20); Red Cell Distribution Width 12.9 % (11.5-14.5); White Blood Count 9.7 K/mm3 (4.5-10.0)
[2022-01-04 06:17] LABS: INR 1.3; Prothrombin Time 15.4 Seconds (11.1-14.7)
[2022-01-04 06:18] LABS: Partial Thromboplastin Time 32.5 SECONDS (22.3-36.8)
[2022-01-04 06:24] LABS: Alanine Aminotransferase 9 U/L (4-50); Albumin Level 3.4 g/dL (3.5-5.1); Alkaline Phosphatase 65 U/L (38-126); Anion Gap 7 mmol/L (8-16); Aspartate Amino Transferase 19 U/L (17-59); Bilirubin,Total 0.8 mg/dL (0.2-1.3); Blood Urea Nitrogen 8 mg/dL (9-20); Calcium 8.7 mg/dL (8.4-10.2); Carbon Dioxide 28 mmol/L (22-30); Chloride 101 mmol/L (98-107); Estimated CRCL calculation 89 ml/min; Estimated Glomerular Filt Rate > 60; Glucose 102 mg/dL (65-110); Magnesium 1.7 mg/dL (1.6-2.3); Potassium 3.1 mmol/L (3.4-5.0); Sodium 136 mmol/L (137-145)
[2022-01-04 07:50] LABS: Glucose Point of Care 115 mg/dl (65-105)
[2022-01-04] MEDS: GABAPENTIN 300 MG CAPSULE 600 MG PO ×3 (08:44→17:32)
[2022-01-04] MEDS: SPIRONOLACTONE 25 MG TABLET PO (08:45)
[2022-01-04] MEDS: ARIPiprazole 2 MG TABLET 4 MG PO (08:45)
[2022-01-04] MEDS: TAMSULOSIN HCL 0.4 MG CAPSULE PO (08:45)
[2022-01-04] MEDS: buPROPion HCL XL (24 HR) 150 MG TABCR 300 MG PO (08:45)
[2022-01-04] MEDS: FUROSEMIDE 20 MG TABLET 60 MG PO ×2 (08:46→17:32)
[2022-01-04 11:21] LABS: Glucose CSF 70 mg/dL (40-70); Total Protein CSF 49 mg/dL (12-60)
[2022-01-04 11:30] LABS: Glucose Point of Care 124 mg/dl (65-105)
[2022-01-04] MEDS: levoFLOXacin 250 MG/D5W 50 ML 250 MG/50 ML BAG 50 MG IVPB (11:44)
[2022-01-04] MEDS: POTASSIUM CHLORIDE 20 MEQ PACKET (FOR LIQUID) 40 MEQ PO (11:49)
--- NOTE | 2022-01-04 12:35 | WPDNEURCNPN ---
Assessment and Plan Additional Plan encephalopathy with multiple other medical problems evaluation as being carried out particularly to rule out the possibility of infection because of the abnormal MRI and further investigation treatment accordingly Consult date: 01/04/22 HPI: Farhan Armstrong is a 76 year old male admitted to the hospital through the emergency room where he was brought by the ambulance after the staff noted patient was change in the mental status. Apparently patient has not been eating well and has refused to eat and drink and the son reported that maybe he was getting depressed over the last 72 hours he was found to be confused but he was becoming more agitated kicked the out of the apartment yesterday and was refusing to be transferred to the hospital by the time he was seen by the hospitalist he knew that he was in his room. And he had no recall of all the incident he return to service inspector to be positive for methadone which is a prescribed medication initial CT scan was consistent with a chronic small-vessel ischemic changes but no territorial stroke no bleed he was noted to have soft tissue swelling near the ankle he was admitted to the observation status and as mentioned before past history is consistent with the atrial fibrillation with controlled ventricular rate, chronic congestive heart failure, COPD, diabetes mellitus, with polyneuropathy and obstructive sleep apnea as well, hears smoke 20 with smoking pack years 20 former smoker no alcohol intaker, as mentioned before ankle x-ray with soft tissue swelling near the calcaneus without fracture and CT scan of the head without any vascular territorial stroke. Lumbar puncture has been done pressure was 1 6cm of water urine drug screen positive for methadone CSF glucose of 70 total protein 40 BMP mildly abnormal with low potassium 3.1 sodium 136 and CBC not significant his MRI was compatible with patchy meningeal thickening and enhancement Review of Systems Review of Systems: All systems reviewed & are unremarkable except as noted in HPI and below [facility] Past Medical History Medical History Arthritis (03/26/19) Atrial fibrillation with controlled ventricular rate Chronic congestive heart failure COPD (chronic obstructive pulmonary disease) Depression Diabetes mellitus Diabetic polyneuropathy associated with type 2 diabetes mellitus Fibromyalgia Mixed hyperlipidemia ANIA (obstructive sleep apnea) Restless legs syndrome Surgical History Surgical History History of hernia repair Family History Family History Sibling Patient's sister is in good health Hypertension Family history of heart disease in male family member before age 55 Mother Family history of heart disease in male family member before age 55 Patient's mother is Family history of congestive heart failure, Onset Age: 70 Father Patient's father is Acute myocardial infarction, Onset Age: 62 Grandparent Depression Family history of arthritis Family history of malignant neoplasm of breast Family history of heart disease in male family member before age 55 Other Cerebrovascular accident Family history of cardiovascular disease Social History Social History Social History: 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 He is a former smoker. The patient is retired. The patient he tells me that he wants to be a DNR. However he is listed as a full code at this time and I am not sure if he has durable power immigration attorney. The patient appeared to be alert enough to make that decision however I believe there needs to be further discussion with his family members. Code status full code Smoking packs per day: 1 Smoking ciga
--- NOTE | 2022-01-04 13:04 | PDONCCN ---
HPI - Date of Consult Date/Time: 01/04/22 13:04 Requesting Physician: Dilan Yancey MD Primary Care Provider: Etienne Maher DO - Consult Narrative Reason for consult: Lung mass Narrative: Farhan Armstrong is a 76 year old male with remote history of smoking along with history of COPD and congestive heart failure. He is assisted home resident. He was brought in to the hospital due to altered mental status. He has been eating poorly. He denies any weight loss. Patient is a poor historian. He quit smoking long time ago. Brain MRI showed moderate nonspecific cerebral white matter disease and chronic small-vessel ischemic disease. There was meningeal thickening and enhancement consistent with prior lumbar puncture or spine surgery. CT chest was performed that showed 3.1 x 2.3 cm perihilar right upper lobe mass. There were some calcified pleural plaques may represent asbestos exposure. No pathologically enlarged lymph node. He denies any previous history of malignancy. He denies any chest pain but does have some shortness of breath. No hemoptysis and cough. Review of Systems - Review of Systems All systems reviewed & are unremarkable except as noted in HPI and bel - Neurologic Reports system reviewed and no additional complaints, except as documented, Reports hearing normal [facility] Medical History: Medical History (Last Reviewed 01/04/22 @ 12:44 by Scottie Felix MD) Arthritis Onset Date: 03/26/19 Atrial fibrillation with controlled ventricular rate Chronic congestive heart failure COPD (chronic obstructive pulmonary disease) Depression Diabetes mellitus Diabetic polyneuropathy associated with type 2 diabetes mellitus Fibromyalgia Mixed hyperlipidemia ANIA (obstructive sleep apnea) Restless legs syndrome Surgical History: Surgical History (Last Reviewed 01/04/22 @ 12:44 by Scottie Felix MD) History of hernia repair Family History: Family History (Last Reviewed 01/04/22 @ 12:44 by Scottie Felix MD) Sibling Patient's sister is in good health Hypertension Family history of heart disease in male family member before age 55 Mother Family history of heart disease in male family member before age 55 Patient's mother is Family history of congestive heart failure, Onset Age: 70 Father Patient's father is Acute myocardial infarction, Onset Age: 62 Grandparent Depression Family history of arthritis Family history of malignant neoplasm of breast Family history of heart disease in male family member before age 55 Other Cerebrovascular accident Family history of cardiovascular disease - Social History Social History: Social History (Last Reviewed 01/04/22 @ 12:44 by Scottie Felix MD) Gender Identity: Gender identity (if verbalized by the patient): Male Sexual Orientation: Sexual Orientation (if Verbalized by the Patient): Straight or Heterosexual Alcohol Use: Alcohol intake: never Substance Use: Substance use: never Others: Spiritual care concerns: No Smoking Status: Smoking status: Former smoker Tobacco type: cigarettes Second hand tobacco smoke exposure: Yes Smoking end date: 11/18/99 Approximate Smoking End Date: 11/18/2001 Smoking Pack-years: Smoking packs per day: 1 Smoking cigarettes per day: 20.0 Years smoked: 20 Smoking pack-years: 20.00 Meds Home Medications Medication Instructions Recorded Confirmed Type aspirin 81 mg tablet,delayed 81 mg PO DAILY 11/06/19 01/02/22 History release ropinirole 1 mg tablet 1 mg PO .QHS tablet 12/18/19 01/02/22 History bupropion HCl 300 mg PO DAILY 03/09/21 01/02/22 History spironolactone 25 mg PO DAILY 03/09/21 01/02/22 History tamsulosin 0.4 mg PO DAILY 03/09/21 01/02/22 History aripiprazole 2 mg tablet 4 mg PO DAILY #60 tablet 04/25/21 01/02/22 Rx furosemide 40 mg tablet 60 mg PO BID #180 tablet 06/30/21 01/02/22
[2022-01-04 13:46] LABS: Appearance CSF Clear (Clear); CSF source CSF; Color CSF Colorless (Colorless); Lymphocytes CSF 80 % (40-80); Monocytes CSF 14 % (15-45); Nucleated Cell CSF 5 /uL (0-5); Red Blood Cell CSF 5 (0-2)
[2022-01-04 17:07] LABS: Glucose Point of Care 124 mg/dl (65-105)
[2022-01-04] MEDS: rOPINIRole HCL 1 MG TABLET PO (20:31)
[2022-01-04 21:41] LABS: Glucose Point of Care 116 mg/dl (65-105)
[2022-01-05] VITALS (12 sets, daily range): BP systolic 103–169; BP diastolic 53–87; PULSE 85–119; RESP 16–20; TEMP 36.2–38; O2SAT 93–97
[2022-01-05] MEDS: methADONE HCL (*CRX) 5 MG TABLET PO ×3 (05:57→17:13)
[2022-01-05 06:53] LABS: Ammonia < 9 umol/L (9-30); Anion Gap 12 mmol/L (8-16); Blood Urea Nitrogen 13 mg/dL (9-20); Calcium 9.2 mg/dL (8.4-10.2); Carbon Dioxide 30 mmol/L (22-30); Chloride 95 mmol/L (98-107); Estimated CRCL calculation 71 ml/min; Estimated Glomerular Filt Rate > 60; Glucose 112 mg/dL (65-110); Sodium 137 mmol/L (137-145)
--- NOTE | 2022-01-05 07:31 | PCPTNOTE ---
The patient treatment was not able to be completed on 01/04/2022. Will plan to continue treatment per plan of care.
[2022-01-05 07:37] LABS: Glucose Point of Care 121 mg/dl (65-105)
[2022-01-05] MEDS: buPROPion HCL XL (24 HR) 150 MG TABCR 300 MG PO (08:50)
[2022-01-05] MEDS: TAMSULOSIN HCL 0.4 MG CAPSULE PO (08:50)
[2022-01-05] MEDS: FUROSEMIDE 20 MG TABLET 60 MG PO (08:50)
[2022-01-05] MEDS: GABAPENTIN 300 MG CAPSULE 600 MG PO ×3 (08:50→17:13)
[2022-01-05] MEDS: SPIRONOLACTONE 25 MG TABLET PO ×3 (08:50→17:13)
[2022-01-05] MEDS: ARIPiprazole 2 MG TABLET 4 MG PO (08:50)
[2022-01-05 11:34] LABS: Glucose Point of Care 120 mg/dl (65-105)
[2022-01-05] MEDS: levoFLOXacin 250 MG/D5W 50 ML 250 MG/50 ML BAG 50 MG IVPB (12:06)
--- NOTE | 2022-01-05 12:07 | PM.CNPUL ---
Assessment and Plan Assessment and plan (1) Lung mass: Code(s): R91.8 - Other nonspecific abnormal finding of lung field Status: Acute Assessment and Plan: 76-year-old man who presented with acute mental status changes and undergoing workup for UPHOLSTERER OUTSIDE disorder was found to have a right upper lobe mass, highly suspicious for bronchogenic carcinoma. There is no evidence of enlarged lymph nodes in the mediastinum. The patient will need an invasive procedure likely CT-guided lung biopsy as this lung mass is not accessible via the standard flexible bronchoscope. Will check with Interventional Radiology regarding lung biopsy. (2) Altered mental status: Qualifiers: Altered mental status type: unspecified Qualified Code(s): R41.82 - Altered mental status, unspecified Code(s): R41.82 - Altered mental status, unspecified Status: Acute (3) ANIA (obstructive sleep apnea): Code(s): G47.33 - Obstructive sleep apnea (adult) (pediatric) Status: Chronic (4) COPD (chronic obstructive pulmonary disease): Qualifiers: COPD type: unspecified COPD Qualified Code(s): J44.9 - Chronic obstructive pulmonary disease, unspecified Code(s): J44.9 - Chronic obstructive pulmonary disease, unspecified Status: Chronic History of Present Illness History of Present Illness Consult date: 01/05/22 Chief complaint: Altered Mental Status Narrative: this 76-year-old man was admitted into the hospital with acute mental status changes. Apparently the patient was getting confused followed by agitation at home. Since the day of admission he has undergone workup for acute mental status changes including lumbar puncture. Past history significant for atrial fibrillation with controlled ventricular rate, CHF, COPD diabetes mellitus peripheral neuropathy and obstructive sleep apnea. initial chest CT showed lung mass in the right upper lobe. Specifically, there is a 3.1 x 2.2 cm perihilar right upper lobe mass. There are calcified pleural plaques on the right which may reflect prior asbestos exposure. No pleural effusion or pneumothorax is identified. No pathologically enlarged thoracic lymph nodes are identified. The heart size is normal. Upon questioning the patient denied having respiratory symptoms such as chest pain palpitations hemoptysis cough wheezing or shortness of breath. He has history of smoking for many years. He also has history of depression. Review of Systems Review of Systems: All systems reviewed & are unremarkable except as noted in HPI and below PMFSH Past Medical History Medical History Arthritis (03/26/19) Atrial fibrillation with controlled ventricular rate Chronic congestive heart failure COPD (chronic obstructive pulmonary disease) Depression Diabetes mellitus Diabetic polyneuropathy associated with type 2 diabetes mellitus Fibromyalgia Mixed hyperlipidemia ANIA (obstructive sleep apnea) Restless legs syndrome Surgical History Surgical History History of hernia repair Family History Family History Sibling Patient's sister is in good health Hypertension Family history of heart disease in male family member before age 55 Mother Family history of heart disease in male family member before age 55 Patient's mother is Family history of congestive heart failure, Onset Age: 70 Father Patient's father is Acute myocardial infarction, Onset Age: 62 Grandparent Depression Family history of arthritis Family history of malignant neoplasm of breast Family history of heart disease in male family member before age 55 Other Cerebrovascular accident Family history of cardiovascular disease Social History Social History Social Histo
[2022-01-05 16:45] LABS: Glucose Point of Care 137 mg/dl (65-105)
[2022-01-05] MEDS: POTASSIUM CHLORIDE 20 MEQ TABLET.ER 40 MEQ PO (17:13)
[2022-01-05] MEDS: rOPINIRole HCL 1 MG TABLET PO (20:21)
[2022-01-05] MEDS: ACETAMINOPHEN 325 MG TABLET 650 MG PO (20:22)
[2022-01-05 20:48] LABS: Glucose Point of Care 174 mg/dl (65-105)
[2022-01-06] VITALS (11 sets, daily range): BP systolic 104–128; BP diastolic 62–88; PULSE 87–110; RESP 16–18; TEMP 36.6–37.4; O2SAT 88–99
[2022-01-06] MEDS: methADONE HCL (*CRX) 5 MG TABLET PO ×4 (00:23→17:03)
[2022-01-06 06:18] LABS: Anion Gap 9 mmol/L (8-16); Blood Urea Nitrogen 31 mg/dL (9-20); Calcium 8.9 mg/dL (8.4-10.2); Carbon Dioxide 31 mmol/L (22-30); Chloride 96 mmol/L (98-107); Estimated CRCL calculation 22 ml/min; Estimated Glomerular Filt Rate 20; Glucose 109 mg/dL (65-110); Potassium 3.4 mmol/L (3.4-5.0); Sodium 136 mmol/L (137-145)
[2022-01-06 08:11] LABS: Glucose Point of Care 98 mg/dl (65-105)
[2022-01-06] MEDS: ARIPiprazole 2 MG TABLET 4 MG PO (09:19)
[2022-01-06] MEDS: GABAPENTIN 300 MG CAPSULE 600 MG PO ×3 (09:19→17:04)
[2022-01-06] MEDS: TAMSULOSIN HCL 0.4 MG CAPSULE PO (09:20)
[2022-01-06] MEDS: buPROPion HCL XL (24 HR) 150 MG TABCR 300 MG PO (09:20)
[2022-01-06] MEDS: MAGNESIUM OXIDE 400 MG TABLET PO (09:20)
[2022-01-06] MEDS: POTASSIUM CHLORIDE 20 MEQ TABLET.ER 40 MEQ PO (09:20)
--- NOTE | 2022-01-06 11:11 | P.PNIM_ITS ---
Progress Note: A&P Assessment and Plan (1) Altered mental status: Qualifiers: Altered mental status type: unspecified Qualified Code(s): R41.82 - Altered mental status, unspecified Code(s): R41.82 - Altered mental status, unspecified Status: Acute Assessment and Plan: Patient is a 76-year-old man with a history of arthritis, CHF, COPD, depression, diabetes with neuropathy, ANIA, fibromyalgia, who presented to the emergency room with confusion from his assisted living facility. As per records the patient has had some confusion for the last 3 days and he has not been eating or drinking very much. Prior to arrival he had kicked his out of the apartment but he does not recall doing this. Patient's son is concerned of depression and thinking he needs medications adjusted. Initial vitals showed elevated blood pressure 163/95, heart rate 82 beats per minute, afebrile, oxygen 96% on room air. Initial labs showed normal white blood cell count at 8000, slight elevation neutrophils at 76%. Slight thrombocytopenia 149,000. BMP showed normal creatinine, slightly elevated BUN at 22, ammonia was normal. Troponin was within normal limits at 0.017. CRP 1.5. TSH normal. Urinalysis showed no signs of an acute infection. Urine drug screen was positive for methadone which he is prescribed. CT head showed Cerebral atherosclerosis and chronic small vessel ischemic changes of the cerebral white matter. No acute intracranial finding. Patient initially was confused and complaining of right foot pain and constipation but x-ray abdomen showed normal volume of colonic stool and nonspecific bowel gas pattern. X-ray of the patient's right foot and ankle showed no osseous abnormality. Patient was admitted to hospital for confusion workup and had ordered an MRI, telemetry monitoring, carotid Dopplers, echocardiogram for further evaluation. * Chest x-ray was completed to rule out possible pneumonia as an infection, chest x-ray showed possible to 0.5 cm right upper lobe lung mass, recommend CT thorax for further evaluation. I discussed this with the patient and at this time he states he has had enough testing for today and may not want have this done at this time. I told him I will order it and if he would like to refuse he can. This can also be worked up as an outpatient with his primary care provider. I informed the son as well. * Carotid Doppler showed less than 50% stenosis bilaterally. * Echocardiogram pending. * MRI showed Moderate nonspecific cerebral white matter disease and pontine disease, which likely represents chronic small vessel ischemic disease. Pachymeningeal thickening and enhancement. This finding is most commonly secondary to prior lumbar puncture or spine surgery. If the patient has never had one of these procedures, note that this finding can also be seen with meningitis. * I discussed MRI findings with the patient and his son. Patient states he has had an of testing for today and is concerned about the pain he will have with the lumbar puncture. I discussed the risks benefits of the lumbar puncture as well as the need to rule out acute versus chronic meningitis. Patient's son would like for him to complete the testing right now the patient is on the fence. I told him we will order the test and he can always refuses if he would like. * Talked with Dr. Felix Neurology recommends a lumbar puncture with further testing, g stain, cultures, cytology, and to make sure we get it sarcoidosis testing from the cerebral spinal fluid * Neurology was constant for further evaluation and recommendations Continue monitoring. (2) Foot pain, right: C
[2022-01-06 12:05] LABS: Glucose Point of Care 139 mg/dl (65-105)
[2022-01-06] MEDS: DEXTROSE 5%/0.9% SOD CHL 1,000 ML 100 ML IV CONT (12:12)
[2022-01-06] MEDS: levoFLOXacin 250 MG/D5W 50 ML 250 MG/50 ML BAG 50 MG IVPB (13:19)
[2022-01-06] MEDS: SPIRONOLACTONE 25 MG TABLET PO ×2 (13:20→17:04)
[2022-01-06 16:29] LABS: Glucose Point of Care 125 mg/dl (65-105)
[2022-01-06 19:03] LABS: Herpes Simplex Type 1 DNA PCR Not Detected (Not Detected); Herpes Simplex Type 2 DNA PCR Not Detected (Not Detected)
[2022-01-06 20:31] LABS: Glucose Point of Care 136 mg/dl (65-105)
[2022-01-06] MEDS: rOPINIRole HCL 1 MG TABLET PO (21:12)
[2022-01-07] VITALS (10 sets, daily range): BP systolic 100–144; BP diastolic 51–109; PULSE 70–108; RESP 18; TEMP 36.4–39.4; O2SAT 95–98
[2022-01-07] MEDS: methADONE HCL (*CRX) 5 MG TABLET PO ×4 (00:35→17:30)
[2022-01-07] MEDS: DEXTROSE 5%/0.9% SOD CHL 1,000 ML 100 ML IV CONT ×4 (00:43→20:15)
[2022-01-07 02:55] LABS: Glucose Point of Care 142 mg/dl (65-105)
[2022-01-07] MEDS: ACETAMINOPHEN 325 MG TABLET 650 MG PO (05:29)
[2022-01-07 06:02] LABS: Hematocrit 41.1 % (42.0-52.0); Hemoglobin 14.2 g/dL (14.0-18.0); Mean Corpuscular HGB Conc 34.5 g/dl (32-36); Mean Corpuscular Hemoglobin 32.2 pg (26-34); Mean Corpuscular Volume 93.2 fl (80-100); Mean Platelet Volume 11.5 fl (7.4-10.4); Platelet Count Result 156 k/mm3 (150-375); Red Blood Count 4.41 M/mm3 (4.6-6.20); Red Cell Distribution Width 13.4 % (11.5-14.5)
[2022-01-07 07:01] LABS: Alanine Aminotransferase 11 U/L (4-50); Albumin Level 3.2 g/dL (3.5-5.1); Alkaline Phosphatase 47 U/L (38-126); Anion Gap 4 mmol/L (8-16); Aspartate Amino Transferase 35 U/L (17-59); Bilirubin,Total 0.5 mg/dL (0.2-1.3); Blood Urea Nitrogen 43 mg/dL (9-20); Calcium 8.3 mg/dL (8.4-10.2); Carbon Dioxide 32 mmol/L (22-30); Chloride 98 mmol/L (98-107); Estimated CRCL calculation 26 ml/min; Estimated Glomerular Filt Rate 24; Glucose 129 mg/dL (65-110); Potassium 3.8 mmol/L (3.4-5.0); Sodium 134 mmol/L (137-145)
[2022-01-07 08:07] LABS: Glucose Point of Care 145 mg/dl (65-105)
[2022-01-07] MEDS: GABAPENTIN 300 MG CAPSULE 600 MG PO ×3 (09:13→17:30)
[2022-01-07] MEDS: TAMSULOSIN HCL 0.4 MG CAPSULE PO (09:14)
[2022-01-07] MEDS: buPROPion HCL XL (24 HR) 150 MG TABCR 300 MG PO (09:15)
[2022-01-07] MEDS: ARIPiprazole 2 MG TABLET 4 MG PO (09:16)
[2022-01-07] MEDS: MAGNESIUM OXIDE 400 MG TABLET PO (10:14)
[2022-01-07] MEDS: SPIRONOLACTONE 25 MG TABLET PO ×3 (10:15→17:31)
[2022-01-07 10:25] LABS: Cryptococcus Antigen Not Detected (Not Detected); Cryptococcus Specimen Source CSF
[2022-01-07] MEDS: levoFLOXacin 250 MG/D5W 50 ML 250 MG/50 ML BAG 50 MG IVPB (10:25)
[2022-01-07 12:17] LABS: Glucose Point of Care 144 mg/dl (65-105)
--- NOTE | 2022-01-07 12:39 | WPDURCON ---
Assessment and Plan Assessment and plan (1) Urinary retention: Code(s): R33.9 - Retention of urine, unspecified Status: Acute Assessment and Plan: It is unclear if he was truly in retention. At this point time he has been started on tamsulosin. I would continue with that. Patient is nonambulatory and thus I would leave Barnard in until he undergoes his lung biopsy and become slightly more active. He can then have a voiding trial. (2) Renal insufficiency: Code(s): N28.9 - Disorder of kidney and ureter, unspecified Status: Acute Assessment and Plan: Etiology is unclear but I will order a renal ultrasound to make sure that no hydronephrosis has developed Urology Consult Note HPI Date Seen: 01/07/22 Requesting Physician: Dilan Yancey MD Primary Care Provider: Etienne Maher DO Consult Narrative Narrative: Farhan Armstrong is a 76 year old male admitted with confusion. Patient had a Barnard catheter placed but I believe his residual was only 200 cc. Patient at this time is less confused and states that he had no significant voiding symptoms other than some mild decrease in force of stream. Had nocturia x1. Patient currently is unable to ambulate. He is also being evaluated for a pulmonary lesion which she is to undergo biopsy this week. It is noted that patient's creatinine is increased over the past 3 days. He was at 0.9 on January 05 and now was 2.6. His CT scan back in February of 2021 showed normal upper tracts. Review of Systems Review of Systems: All systems reviewed & are unremarkable except as noted in HPI and below PMFSH Past Medical History Medical History Arthritis (03/26/19) Atrial fibrillation with controlled ventricular rate Chronic congestive heart failure COPD (chronic obstructive pulmonary disease) Depression Diabetes mellitus Diabetic polyneuropathy associated with type 2 diabetes mellitus Fibromyalgia Mixed hyperlipidemia ANIA (obstructive sleep apnea) Restless legs syndrome Surgical History Surgical History History of hernia repair Family History Family History Sibling Patient's sister is in good health Hypertension Family history of heart disease in male family member before age 55 Mother Family history of heart disease in male family member before age 55 Patient's mother is Family history of congestive heart failure, Onset Age: 70 Father Patient's father is Acute myocardial infarction, Onset Age: 62 Grandparent Depression Family history of arthritis Family history of malignant neoplasm of breast Family history of heart disease in male family member before age 55 Other Cerebrovascular accident Family history of cardiovascular disease Social History Social History Social History: 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 He is a former smoker. The patient is retired. The patient he tells me that he wants to be a DNR. However he is listed as a full code at this time and I am not sure if he has durable power workers compensation attorney. The patient appeared to be alert enough to make that decision however I believe there needs to be further discussion with his family members. Code status full code Smoking packs per day: 1 Smoking cigarettes per day: 20.0 Years smoked: 20 Smoking pack-years: 20.00 Smoking status: Former smoker Tobacco type: cigarettes Second hand tobacco smoke exposure: Yes Smoking end date: 11/18/99 Alcohol intake: never Substance use: never Gender identity (if verbalized by the patient): Male Sexual Orientation (if Verbalized by the Patient): Straight or Heterosexual Spiritual
[2022-01-07 14:33] LABS: Lyme Disease Ab (IgM), Blot Negative (Negative); Lyme Disease Ab(IgG), Blot Negative (Negative)
[2022-01-07 16:58] LABS: Glucose Point of Care 122 mg/dl (65-105)
[2022-01-07] MEDS: rOPINIRole HCL 1 MG TABLET PO (20:15)
[2022-01-07 20:17] LABS: Glucose Point of Care 137 mg/dl (65-105)
[2022-01-08 05:52] LABS: Anion Gap 3 mmol/L (8-16); Blood Urea Nitrogen 36 mg/dL (9-20); Calcium 8.2 mg/dL (8.4-10.2); Carbon Dioxide 33 mmol/L (22-30); Chloride 102 mmol/L (98-107); Estimated CRCL calculation 44 ml/min; Estimated Glomerular Filt Rate 45; Glucose 127 mg/dL (65-110); Potassium 3.4 mmol/L (3.4-5.0); Sodium 138 mmol/L (137-145)
[2022-01-08 06:41] VITALS: BP 102/78; PULSE 71; RESP 17; TEMP 36.6; O2SAT 96
[2022-01-08 07:56] LABS: Glucose Point of Care 118 mg/dl (65-105)
[2022-01-08 08:00] VITALS: PULSE 71; RESP 17; O2SAT 96
[2022-01-08] MEDS: ARIPiprazole 2 MG TABLET 4 MG PO (09:37)
[2022-01-08] MEDS: DEXTROSE 5%/0.9% SOD CHL 1,000 ML 100 ML IV CONT ×2 (09:39→20:44)
[2022-01-08] MEDS: GABAPENTIN 300 MG CAPSULE 600 MG PO ×3 (09:43→17:19)
[2022-01-08] MEDS: buPROPion HCL XL (24 HR) 150 MG TABCR 300 MG PO (09:43)
[2022-01-08] MEDS: SPIRONOLACTONE 25 MG TABLET PO ×3 (09:44→17:20)
[2022-01-08] MEDS: TAMSULOSIN HCL 0.4 MG CAPSULE PO (09:44)
[2022-01-08] MEDS: MAGNESIUM OXIDE 400 MG TABLET PO (09:44)
[2022-01-08] MEDS: levoFLOXacin 250 MG/D5W 50 ML 250 MG/50 ML BAG 50 MG IVPB (11:06)
[2022-01-08] MEDS: methADONE HCL (*CRX) 5 MG TABLET PO ×2 (11:07→17:19)
--- NOTE | 2022-01-08 11:10 | PCPTNOTE ---
Per RN the pt isn't doing too well this date. Will continue per plan of care.
[2022-01-08 11:12] LABS: Glucose Point of Care 109 mg/dl (65-105)
--- NOTE | 2022-01-08 12:49 | WPDUROPN2 ---
Progress Note: A&P Assessment and Plan (1) Urinary retention: Code(s): R33.9 - Retention of urine, unspecified Status: Acute Assessment and Plan: Keep corral catheter in until lung biopsy is completed and patient is more ambulatory. He will continue Tamsulosin and f/u in the office after. If unable to pass voiding trial, he will need a corral re-placement and then we can schedule a Urodynamic study/cysto to evaluate further in the office. No further evaluation needed at this time. OK to discharge per urology when stable. (2) BPH (benign prostatic hyperplasia): Code(s): N40.0 - Benign prostatic hyperplasia without lower urinary tract symptoms Status: Acute Subjective Subjective Date/Time Seen: 01/08/22 12:49 Urinary Retention, patient tolerating corral well. He will continue Tamsulosin. A EDNA was ordered to assess for hydronephrosis but cancelled for unknown reasons. Review of Systems Cardiovascular: Cardiovascular: Denies chest pain Respiratory: Respiratory: Reports no additional respiratory complaints Gastrointestinal: Gastrointestinal: Denies abdominal pain, Denies nausea and Denies vomiting Genitourinary: Genitourinary: Denies hematuria and Denies flank pain Exam Resp: Effort & Inspection: normal respiratory effort Cardio: Rate: regular rate GI: GI Palp: Yes Soft to palpation and No Tenderness to palpation present (GI) : General: Yes no CVA tenderness Urinary Catheter: Urinary Catheter: patent and draining, urine clear and urine dark Extrem: General: no edema Objective Data Vital Signs Vital Signs: Vital Signs - 24 hr 01/07/22 16:00 01/07/22 20:00 01/07/22 22:06 Temperature 97.8 F 97.6 F Pulse Rate 70 72 72 Respiratory Rate 18 18 18 Blood Pressure 100/51 L 124/109 H Pulse Oximetry 95 98 98 01/08/22 06:41 01/08/22 08:00 Temperature 97.8 F Pulse Rate 71 71 Respiratory Rate 17 17 Blood Pressure 102/78 Pulse Oximetry 96 96 Intake/Output Intake/Output: Intake & Output 01/05/22 01/06/22 01/07/22 01/08/22 23:59 23:59 23:59 23:59 Intake Total 290 1680 3920 1150 Output Total 1 450 500 250 Balance 289 1230 3420 900 Meds/Results Medications: Active Medications Generic Name Dose Route Start Last Admin Trade Name Freq PRN Reason Stop Dose Admin Acetaminophen 650 mg 01/02/22 16:05 01/07/22 05:29 Acetaminophen 325 Mg Tablet PO 650 mg Q4H PRN Administration Mild Pain (1-3) or Fever Albuterol 1 puff 01/03/22 01:33 Albuterol Sulfate (*Sp) Aerosol 1 Puff INHALATION Q4-6H PRN Shortness Of Breath Or Wheezing Aripiprazole 4 mg 01/03/22 09:00 01/08/22 09:37 Aripiprazole 2 Mg Tablet PO 4 mg DAILY JILLIAN Administration Bupropion HCl 300 mg 01/03/22 09:00 01/08/22 09:43 Bupropion Hcl Xl (24 Hr) 150 Mg Tabcr PO 300 mg DAILY JILLIAN Administration Dextrose 12.5 gm 01/03/22 01:36 Dextrose 50% 25 Gm/50 Ml Syringe IV PUSH PRN PRN Hypoglycemia Protocol Gabapentin 600 mg 01/03/22 01:35 01/08/22 09:43 Gabapentin 300 Mg Capsule PO 600 mg TID JILLIAN Administration Glucagon 1 mg 01/03/22 01:36 Glucagon For Inj 1 Mg Vial IM PRN PRN Hypoglycemia Protocol Glucose 15 gm 01/03/22 01:36 Glucose Oral Gel 15 Gm Of Glucse In 37.5 Gm Tube PO PRN PRN Hypoglycemia Protocol Dextrose 1,000 mls @ 100 mls/hr 01/03/22 01:36 Dextrose 5% 1,000 Ml IVPB PRN PRN Hypoglycemia Protocol Levofloxacin/Dextrose 250 mg in 50 mls @ 50 mls/hr 01/04/22 11:15 01/08/22 11:06 Levaquin 250 Mg/D5w 50 Ml IVPB 50 mls/hr Q24H JILLIAN Administration Dextrose/Sodium Chloride 1,000 mls @ 100 mls/hr 01/06/22 11:10 01/08/22 09:39 Dextrose 5% Sodium Chloride 0.9% IV CONT 100 mls/hr .Q10H JILLINA Administration Insulin Aspart 2 - 5 units 01/03/22 08:00 01/08/22 08:36 Insulin Aspart (*Bkc) 100 Units/Ml SUB-Q Not Given TIDWM JILLIAN Protocol Gonzales
--- NOTE | 2022-01-08 13:35 | PCPTNOTE ---
Patient refused treatment this session stating that he doesn't feel like he can do it today.
[2022-01-08 13:57] VITALS: BP 135/102; PULSE 68; RESP 20; TEMP 35.9; O2SAT 96
[2022-01-08 14:40] LABS: West Nile Virus, IgM <0.90 index (<0.90)
--- NOTE | 2022-01-08 15:46 | PM.PNPUL ---
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 There is no evidence of enlarged lymph nodes in the mediastinum. The patient will need an invasive procedure likely CT-guided lung biopsy as this lung mass is not accessible via the standard flexible bronchoscope. Case was discussed with interventional radiologist Dr. Cabrera who will attempt CT-guided needle biopsy following optimization of his coagulation indices. (2) Altered mental status: Qualifiers: Altered mental status type: unspecified Qualified Code(s): R41.82 - Altered mental status, unspecified Code(s): R41.82 - Altered mental status, unspecified Status: Acute (3) ANIA (obstructive sleep apnea): Code(s): G47.33 - Obstructive sleep apnea (adult) (pediatric) Status: Chronic (4) COPD (chronic obstructive pulmonary disease): Qualifiers: COPD type: unspecified COPD Qualified Code(s): J44.9 - Chronic obstructive pulmonary disease, unspecified Code(s): J44.9 - Chronic obstructive pulmonary disease, unspecified Status: Chronic Subjective Date/time seen: 01/08/22 15:46 Patient has no new respiratory symptoms. He appeared confused today. He has no fever chills or hemoptysis. He was recently evaluated by Urology Services Review of Systems Review of Systems: All systems reviewed & are unremarkable except as noted in HPI and below Exam Narrative: GENERAL APPEARANCE: Well developed, well nourished, alert and cooperative, and appears to be in no acute distress while laying flat in bed SKIN: Inspection of the skin reveals no rashes, ulcerations or petechiae. HEENT: Sclerae anicteric and conjunctivae pink and moist. Extraocular movements were intact and pupils were equal, round. NECK: Supple. There was no thyroid enlargement, and no tenderness, or masses were felt. CHEST: Normal AP diameter and normal contour without any kyphoscoliosis. LUNGS: Auscultation of the lungs revealed normal breath sounds without any other adventitious sounds or rubs. CARDIAC: There was a regular rate and rhythm without any murmurs, gallops, rubs. ABDOMEN: Soft and nontender with normal bowel sounds. There was no organomegaly. LYMPH NODES: No lymphadenopathy was appreciated in the neck. EXTREMITIES: No cyanosis, clubbing or edema. NEUROLOGIC: Alert and oriented x 3. Normal affect. Objective Data Vital Signs Vital Signs: Vital Signs - 24 hr 01/07/22 16:00 01/07/22 20:00 01/07/22 22:06 Temperature 36.6 C 36.4 C Pulse Rate 70 72 72 Respiratory Rate 18 18 18 Blood Pressure 100/51 L 124/109 H Pulse Oximetry 95 98 98 01/08/22 06:41 01/08/22 08:00 01/08/22 13:57 Temperature 36.6 C 35.9 C L Pulse Rate 71 71 68 Respiratory Rate 17 17 20 Blood Pressure 102/78 135/102 H Pulse Oximetry 96 96 96 Intake/Output Intake/Output: Intake & Output 01/05/22 01/06/22 01/07/22 01/08/22 23:59 23:59 23:59 23:59 Intake Total 290 1680 3920 1150 Output Total 1 450 500 250 Balance 289 1230 3420 900 Meds/Results Medications: Active Medications Generic Name Dose Route Start Last Admin Trade Name Freq PRN Reason Stop Dose Admin Acetaminophen 650 mg 01/02/22 16:05 01/07/22 05:29 Acetaminophen 325 Mg Tablet PO 650 mg Q4H PRN Administration Mild Pain (1-3) or Fever Albuterol 1 puff 01/03/22 01:33 Albuterol Sulfate (*Sp) Aerosol 1 Puff INHALATION Q4-6H PRN Shortness Of Breath Or Wheezing Aripiprazole 4 mg 01/03/22 09:00 01/08/22 09
[2022-01-08 16:20] LABS: Glucose Point of Care 163 mg/dl (65-105)
[2022-01-08 17:09] LABS: VDRL Quantitative CSF Nonreactive (Nonreactive)
[2022-01-08 17:30] LABS: Varicella IgM Antibody <=0.90 (<=0.90)
[2022-01-08 20:00] VITALS: PULSE 69; RESP 18; O2SAT 97
[2022-01-08] MEDS: rOPINIRole HCL 1 MG TABLET PO (20:44)
[2022-01-08 20:52] VITALS: BP 108/54; PULSE 69; RESP 18; TEMP 36.1; O2SAT 97
[2022-01-08 21:02] LABS: Glucose Point of Care 135 mg/dl (65-105)
[2022-01-09] VITALS (7 sets, daily range): BP systolic 112–141; BP diastolic 61–77; PULSE 64–77; RESP 18; TEMP 36.1–37; O2SAT 94–99
[2022-01-09] MEDS: DEXTROSE 5%/0.9% SOD CHL 1,000 ML 100 ML IV CONT ×2 (07:39→18:39)
[2022-01-09 07:40] LABS: Glucose Point of Care 110 mg/dl (65-105)
[2022-01-09] MEDS: GABAPENTIN 300 MG CAPSULE 600 MG PO ×3 (09:00→17:00)
[2022-01-09] MEDS: buPROPion HCL XL (24 HR) 150 MG TABCR 300 MG PO (09:00)
[2022-01-09] MEDS: SPIRONOLACTONE 25 MG TABLET PO ×3 (09:00→17:00)
[2022-01-09] MEDS: MAGNESIUM OXIDE 400 MG TABLET PO (09:00)
[2022-01-09] MEDS: ARIPiprazole 2 MG TABLET 4 MG PO (09:00)
[2022-01-09] MEDS: TAMSULOSIN HCL 0.4 MG CAPSULE PO (09:00)
--- NOTE | 2022-01-09 09:53 | PCNWS ---
Weekly nutritional screen. Patient had bedside swallow on 01/03. Diet order: Regular, Soft and Bite Sized, Level 6 with Ensure compact BID. Oral Intake has been fair. Confusion noted. No weight loss reported. Agree with diet orders. No nutritional needs at this time.
[2022-01-09] MEDS: levoFLOXacin 250 MG/D5W 50 ML 250 MG/50 ML BAG 50 MG IVPB (11:25)
[2022-01-09 12:01] LABS: Glucose Point of Care 148 mg/dl (65-105)
--- NOTE | 2022-01-09 12:05 | PCSTNOTE ---
Please refer to the Bedside Swallow Evaluation in the EMR. Please note, silent aspiration cannot be ruled out at bedside.
[2022-01-09] MEDS: methADONE HCL (*CRX) 5 MG TABLET PO ×3 (13:13→23:50)
--- NOTE | 2022-01-09 16:03 | PM.IMPN ---
Progress Note: A&P Assessment and Plan (1) Altered mental status: Qualifiers: Altered mental status type: unspecified Qualified Code(s): R41.82 - Altered mental status, unspecified Code(s): R41.82 - Altered mental status, unspecified Status: Acute Assessment and Plan: Patient is a 76-year-old man with a history of arthritis, CHF, COPD, depression, diabetes with neuropathy, ANIA, fibromyalgia, who presented to the emergency room with confusion from his assisted living facility. As per records the patient has had some confusion for the last 3 days and he has not been eating or drinking very much. Prior to arrival he had kicked his out of the apartment but he does not recall doing this. Patient's son is concerned of depression and thinking he needs medications adjusted. Initial vitals showed elevated blood pressure 163/95, heart rate 82 beats per minute, afebrile, oxygen 96% on room air. Initial labs showed normal white blood cell count at 8000, slight elevation neutrophils at 76%. Slight thrombocytopenia 149,000. BMP showed normal creatinine, slightly elevated BUN at 22, ammonia was normal. Troponin was within normal limits at 0.017. CRP 1.5. TSH normal. Urinalysis showed no signs of an acute infection. Urine drug screen was positive for methadone which he is prescribed. CT head showed Cerebral atherosclerosis and chronic small vessel ischemic changes of the cerebral white matter. No acute intracranial finding. Patient initially was confused and complaining of right foot pain and constipation but x-ray abdomen showed normal volume of colonic stool and nonspecific bowel gas pattern. X-ray of the patient's right foot and ankle showed no osseous abnormality. Patient was admitted to hospital for confusion workup and had ordered an MRI, telemetry monitoring, carotid Dopplers, echocardiogram for further evaluation. Chest x-ray was completed to rule out possible pneumonia as an infection, chest x-ray showed possible to 0.5 cm right upper lobe lung mass, recommend CT thorax for further evaluation. Currently patient is scheduled for lung biopsy 2 more. Carotid Doppler showed less than 50% stenosis bilaterally. Echocardiogram pending. MRI showed Moderate nonspecific cerebral white matter disease and pontine disease, which likely represents chronic small vessel ischemic disease. Pachymeningeal thickening and enhancement. This finding is most commonly secondary to prior lumbar puncture or spine surgery. If the patient has never had one of these procedures, note that this finding can also be seen with meningitis. Dr. Felix Neurology was consulted; per his recommendation,a lumbar puncture with further testing, g stain, cultures, cytology, and to make sure we get it sarcoidosis testing from the cerebral spinal fluid. Studies are negative so far. Neurology was constant for further evaluation and recommendations. Started have remained unrevealing so far. Mentation has returned to what appears to be his baseline. Patient had been treated for depression. In addition he is on prescribed methadone. Continue monitoring. (2) Foot pain, right: Code(s): M79.671 - Pain in right foot Status: Acute Assessment and Plan: This appears to be chronic from his neuropathy. Patient is on chronic medication with Methadone. Wound nurses evaluated and recommends Daily apply mepilex border to right plantar heel for cushion. (3) Dehydration: Code(s): E86.0 - Dehydration Status: Acute Assessment and Plan: Continue with IV fluids on arrival. I discontinued fluids at this time since he seems to be euvolemic and is on chronic diuretics. The patient had a poor appetite and ate 25% of his meal earlier today. Dietary added supplements to help with his nutrition Appears to be hydrated at this time.
[2022-01-09 16:58] LABS: Glucose Point of Care 157 mg/dl (65-105)
[2022-01-09] MEDS: MAGNES & ALUM HYD/SIMETH/DIPHENHYD/LIDOCAINE 119 ML MOUTHWASH BY MOUTH ×2 (17:00→20:41)
[2022-01-09] MEDS: rOPINIRole HCL 1 MG TABLET PO (20:41)
[2022-01-09 22:16] LABS: Glucose Point of Care 119 mg/dl (65-105)
[2022-01-10] VITALS (7 sets, daily range): BP systolic 143–169; BP diastolic 70–83; PULSE 68–71; RESP 14–18; TEMP 35.8–36.3; O2SAT 95–99
[2022-01-10] MEDS: MAGNES & ALUM HYD/SIMETH/DIPHENHYD/LIDOCAINE 119 ML MOUTHWASH BY MOUTH ×6 (01:00→20:31)
[2022-01-10] MEDS: DEXTROSE 5%/0.9% SOD CHL 1,000 ML 100 ML IV CONT ×2 (04:35→17:07)
[2022-01-10] MEDS: methADONE HCL (*CRX) 5 MG TABLET PO ×3 (05:31→17:09)
[2022-01-10 07:29] LABS: Glucose Point of Care 115 mg/dl (65-105)
[2022-01-10] MEDS: GABAPENTIN 300 MG CAPSULE 600 MG PO ×3 (09:15→17:10)
[2022-01-10] MEDS: MAGNESIUM OXIDE 400 MG TABLET PO (09:15)
[2022-01-10] MEDS: ARIPiprazole 2 MG TABLET 4 MG PO (09:16)
[2022-01-10] MEDS: TAMSULOSIN HCL 0.4 MG CAPSULE PO (09:16)
[2022-01-10] MEDS: SPIRONOLACTONE 25 MG TABLET PO ×3 (09:16→17:10)
[2022-01-10] MEDS: buPROPion HCL XL (24 HR) 150 MG TABCR 300 MG PO (09:16)
--- NOTE | 2022-01-10 09:39 | PCPTNOTE ---
The patient treatment was not able to be completed on this date due to patient stating that his legs hurt too much and he did not want to do therapy. Patient said, I do not think I can take it anymore. Therapist asked him what he meant and he stated that he did not think that he could take anymore of everything. RN notified. Will plan to continue treatment per plan of care.
--- NOTE | 2022-01-10 10:00 | P.PNIM_ITS ---
Progress Note: A&P Assessment and Plan (1) Altered mental status: Qualifiers: Altered mental status type: unspecified Qualified Code(s): R41.82 - Altered mental status, unspecified Code(s): R41.82 - Altered mental status, unspecified Status: Acute Assessment and Plan: Patient is a 76-year-old man with a history of arthritis, CHF, COPD, depression, diabetes with neuropathy, ANIA, fibromyalgia, who presented to the emergency room with confusion from his assisted living facility. As per records the patient has had some confusion for the last 3 days and he has not been eating or drinking very much. Prior to arrival he had kicked his out of the apartment but he does not recall doing this. Patient's son is concerned of depression and thinking he needs medications adjusted. Initial vitals showed elevated blood pressure 163/95, heart rate 82 beats per minute, afebrile, oxygen 96% on room air. Initial labs showed normal white blood cell count at 8000, slight elevation neutrophils at 76%. Slight thrombocytopenia 149,000. BMP showed normal creatinine, slightly elevated BUN at 22, ammonia was normal. Troponin was within normal limits at 0.017. CRP 1.5. TSH normal. Urinalysis showed no signs of an acute infection. Urine drug screen was positive for methadone which he is prescribed. CT head showed Cerebral atherosclerosis and chronic small vessel ischemic changes of the cerebral white matter. No acute intracranial finding. Patient initially was confused and complaining of right foot pain and constipation but x-ray abdomen showed normal volume of colonic stool and nonspecific bowel gas pattern. X-ray of the patient's right foot and ankle showed no osseous abnormality. Patient was admitted to hospital for confusion workup and had ordered an MRI, telemetry monitoring, carotid Dopplers, echocardiogram for further evaluation. * Chest x-ray was completed to rule out possible pneumonia as an infection, chest x-ray showed possible to 0.5 cm right upper lobe lung mass, recommend CT thorax for further evaluation. Currently patient underwent lung biopsy today. * Carotid Doppler showed less than 50% stenosis bilaterally. * Echocardiogram pending. * MRI showed Moderate nonspecific cerebral white matter disease and pontine disease, which likely represents chronic small vessel ischemic disease. Pachymeningeal thickening and enhancement. This finding is most commonly secondary to prior lumbar puncture or spine surgery. If the patient has never had one of these procedures, note that this finding can also be seen with meningitis. * Dr. Felix Neurology was consulted; per his recommendation,a lumbar puncture with further testing, g stain, cultures, cytology, and to make sure we get it sarcoidosis testing from the cerebral spinal fluid. Studies are negative so far. * Neurology was constant for further evaluation and recommendations. Started have remained unrevealing so far. Mentation has returned to what appears to be his baseline. Patient had been treated for depression. In addition he is on prescribed methadone. Continue monitoring. (2) Foot pain, right: Code(s): M79.671 - Pain in right foot Status: Acute Assessment and Plan: This appears to be chronic from his neuropathy. Patient is on chronic medication with Methadone. Wound nurses evaluated and recommends Daily apply mepilex border to right plantar heel for cushion. (3) Dehydration: Code(s): E86.0 - Dehydration Status: Acute Assessment and Plan: Continue with IV fluids on arrival. I palomo
[2022-01-10 12:58] LABS: Glucose Point of Care 97 mg/dl (65-105)
[2022-01-10] MEDS: levoFLOXacin 250 MG/D5W 50 ML 250 MG/50 ML BAG 50 MG IVPB (12:58)
--- NOTE | 2022-01-10 14:14 | PCOTNOTE ---
Patient refused occupational therapy services this date stating I just don't feel like it, I'm so sick of everything. Attempted to educate on the benefits of OT, patient continued to decline. Continue per POC.
[2022-01-10 14:33] LABS: Albumin, CSF 25.5 mg/dL (8.0-42.0); Albumin, Serum 3.3 g/dL (3.2-4.6); IgG Index, CSF 0.46 (<0.66); Immunoglobulin G, Serum 841 mg/dL (600-1540); Myelin Basic Protein, CSF <2.0 mcg/L (2.0-4.0); Synthesis Rate IgG, CSF -2.5 mg/24 h (-9.9-3.3)
[2022-01-10 16:57] LABS: Glucose Point of Care 126 mg/dl (65-105)
[2022-01-10] MEDS: rOPINIRole HCL 1 MG TABLET PO (20:31)
[2022-01-10 21:06] LABS: Glucose Point of Care 153 mg/dl (65-105)
[2022-01-11] MEDS: methADONE HCL (*CRX) 5 MG TABLET PO ×2 (00:10→05:50)
[2022-01-11] MEDS: MAGNES & ALUM HYD/SIMETH/DIPHENHYD/LIDOCAINE 119 ML MOUTHWASH BY MOUTH ×4 (01:00→12:04)
[2022-01-11] MEDS: DEXTROSE 5%/0.9% SOD CHL 1,000 ML 100 ML IV CONT (04:21)
[2022-01-11 06:07] VITALS: BP 147/66; PULSE 69; RESP 18; TEMP 36.7; O2SAT 100
[2022-01-11 07:54] LABS: Glucose Point of Care 100 mg/dl (65-105)
[2022-01-11 08:00] VITALS: O2SAT 96
[2022-01-11] MEDS: ARIPiprazole 2 MG TABLET 4 MG PO (08:53)
[2022-01-11] MEDS: GABAPENTIN 300 MG CAPSULE 600 MG PO ×2 (08:53→12:04)
[2022-01-11] MEDS: TAMSULOSIN HCL 0.4 MG CAPSULE PO (08:53)
[2022-01-11] MEDS: buPROPion HCL XL (24 HR) 150 MG TABCR 300 MG PO (08:53)
[2022-01-11] MEDS: MAGNESIUM OXIDE 400 MG TABLET PO (08:53)
[2022-01-11] MEDS: SPIRONOLACTONE 25 MG TABLET PO ×2 (08:53→12:04)
[2022-01-11 09:15] VITALS: PULSE 70; O2SAT 96
--- NOTE | 2022-01-11 11:40 | PCRCNOTE ---
PT GOING TO SNF, HOME O2 EVAL NOT REQUIRED, SAO2 93% ROOM AIR.
[2022-01-11 11:44] LABS: Glucose Point of Care 107 mg/dl (65-105)
[2022-01-11] MEDS: levoFLOXacin 250 MG/D5W 50 ML 250 MG/50 ML BAG 50 MG IVPB (11:45)
[2022-01-11 12:09] LABS: EDCOVIDSCREEN Negative (Negative)
[2022-01-11 14:13] VITALS: BP 158/72; PULSE 69; RESP 14; TEMP 36.6; O2SAT 93
--- NOTE | 2022-01-11 17:32 | PM.DS ---
DS: Admitting Diagnosis Discharge Date 01/11/22 Admitting Diagnosis (1) Altered mental status: (2) Foot pain, right: (3) Dehydration: (4) ANIA (obstructive sleep apnea): (5) COPD (chronic obstructive pulmonary disease): (6) Diabetes mellitus: (7) Depression: (8) Atrial fibrillation with controlled ventricular rate: (9)Continue with gabapentin. And the patient is on ropinirole and methadone (10) Chronic congestive heart failure: (11) BPH with urinary obstruction: (12) Essential hypertension with goal blood pressure less than 130/80: (13) Chronic narcotic use: (14) Restless legs syndrome: DS: Discharge Diagnosis Discharge Diagnosis (1) Altered mental status: Qualifiers: Altered mental status type: unspecified Qualified Code(s): R41.82 - Altered mental status, unspecified Code(s): R41.82 - Altered mental status, unspecified Status: Acute Assessment and Plan: Patient is a 76-year-old man with a history of arthritis, CHF, COPD, depression, diabetes with neuropathy, ANIA, fibromyalgia, who presented to the emergency room with confusion from his assisted living facility. As per records the patient has had some confusion for the last 3 days and he has not been eating or drinking very much. Prior to arrival he had kicked his out of the apartment but he does not recall doing this. Patient's son is concerned of depression and thinking he needs medications adjusted. Initial vitals showed elevated blood pressure 163/95, heart rate 82 beats per minute, afebrile, oxygen 96% on room air. Initial labs showed normal white blood cell count at 8000, slight elevation neutrophils at 76%. Slight thrombocytopenia 149,000. BMP showed normal creatinine, slightly elevated BUN at 22, ammonia was normal. Troponin was within normal limits at 0.017. CRP 1.5. TSH normal. Urinalysis showed no signs of an acute infection. Urine drug screen was positive for methadone which he is prescribed. CT head showed Cerebral atherosclerosis and chronic small vessel ischemic changes of the cerebral white matter. No acute intracranial finding. Patient initially was confused and complaining of right foot pain and constipation but x-ray abdomen showed normal volume of colonic stool and nonspecific bowel gas pattern. X-ray of the patient's right foot and ankle showed no osseous abnormality. Patient was admitted to hospital for confusion workup and had ordered an MRI, telemetry monitoring, carotid Dopplers, echocardiogram for further evaluation. Chest x-ray was completed to rule out possible pneumonia as an infection, chest x-ray showed possible to 0.5 cm right upper lobe lung mass, recommend CT thorax for further evaluation. Currently patient underwent lung biopsy today. Carotid Doppler showed less than 50% stenosis bilaterally. Echocardiogram pending. MRI showed Moderate nonspecific cerebral white matter disease and pontine disease, which likely represents chronic small vessel ischemic disease. Pachymeningeal thickening and enhancement. This finding is most commonly secondary to prior lumbar puncture or spine surgery. If the patient has never had one of these procedures, note that this finding can also be seen with meningitis. Dr. Felix Neurology was consulted; per his recommendation,a lumbar puncture with further testing, g stain, cultures, cytology, and to make sure we get it sarcoidosis testing from the cerebral spinal fluid. Studies are negative so far. Neurology was constant for further evaluation and recommendations. Started have remained unrevealing so far. Mentation has returned to what appears to be his baseline. Patient had been treated for depression. In addition he is on prescribed methadone. Continue monitoring. (2) Foot pain, right: Code(s): M79.671 - Pain in right foot Status: Acute Assessment and Plan: This appears to be chronic from his neuropathy. Patient
[2022-01-16 11:22] LABS: Macrophages CSF 6
== END 2022-01-11 15:19 | DRG 948 ==
LOC: ANHED 16:55 → ANH3MED 22:17
PROVIDERS: Family Medicine; Internal Medicine; Nurse Practitioner; Physician Assistant; Admitting Provider Family Medicine; Emergency Provider Emergency Medicine; PCP Internal Medicine; Visit Provider Internal Medicine
DX: R41.82 Altered mental status, unspecified (principal); I48.20 Chronic atrial fibrillation, unspecified; N13.8 Other obstructive and reflux uropathy; C34.11 Malignant neoplasm of upper lobe, right bronchus or lung; Z87.891 Personal history of nicotine dependence; Z20.822 Contact with and (suspected) exposure to COVID-19; J44.9 Chronic obstructive pulmonary disease, unspecified; M19.91 Primary osteoarthritis, unspecified site; E78.2 Mixed hyperlipidemia; M79.7 Fibromyalgia; I50.9 Heart failure, unspecified; G47.33 Obstructive sleep apnea (adult) (pediatric); E11.42 Type 2 diabetes mellitus with diabetic polyneuropathy; Z82.49 Family history of ischemic heart disease and other diseases of the circulatory system; Z82.3 Family history of stroke; Z79.84 Long term (current) use of oral hypoglycemic drugs; Z79.82 Long term (current) use of aspirin; Z79.899 Other long term (current) drug therapy; M79.671 Pain in right foot; E86.0 Dehydration; F32.9 Major depressive disorder, single episode, unspecified; N40.1 Benign prostatic hyperplasia with lower urinary tract symptoms; Z79.891 Long term (current) use of opiate analgesic; G25.81 Restless legs syndrome; I11.0 Hypertensive heart disease with heart failure; R91.8 Other nonspecific abnormal finding of lung field; R90.82 White matter disease, unspecified; I65.23 Occlusion and stenosis of bilateral carotid arteries; N28.9 Disorder of kidney and ureter, unspecified
CPT/HCPCS: 32408; 36415; 62328; 70450; 70553; 71045; 71046; 71260; 73610; 73630; 74018; 80048; 80053; 80307; 81001; 82040; 82042; 82140; 82784; 82945; 82948; 83036; 83605; 83615; 83735; 83873; 83916; 84100; 84157; 84443; 84484; 85025; 85027; 85610; 85652; 85730; 86140; 86403; 86592; 86617; 86787; 86788; 87015; 87040; 87070; 87086; 87102; 87116; 87206; 87255; 87426; 87529; 88108; 88305; 88342; 89051; 92610; 93005; 93880; 93970; 96360; 96361; 96365; 96366; 96375; 96376; 97110; 97116; 97161; 97165; 97530; 97535; 99285; A9270; A9577; C8929; C9803; G0378; J0360; J1956; J3475; J7030; J7042; Q9957; Q9967

== ENCOUNTER 2022-05-03 09:04 | Outpatient (CLI) | payer OTHER, SELFPAY ==
--- NOTE | ~2022-05-03 | PE_ITS ---
EXAMINATION: PET skull to mid thigh DATE: 05/03/2022 11:00 INDICATION: Malignant neoplasm of right lung. TECHNIQUE: Blood glucose level was 90 mg/dL. 10.802 mCi of 18-fluorodeoxyglucose (18-FDG) was adminis tered i.v. Low dose computed tomography (CT) images were acquired from the base of the brain to the p roximal thighs for attenuation correction and anatomic localization. Automated exposure control was e mployed. Dose-length product (DLP) was 1058 mGy-cm. Positron emission tomography (PET) images were ac quired in the same distribution. COMPARISON: Chest CT 01/04/2022 FINDINGS: Head/neck: There is increased activity in the oral cavity, oropharynx, major salivary glands, and par aspinal muscles without abnormal CT correlate, likely physiologic. There are no pathologically enlarg ed lymph nodes. Chest: There is a 5.6 x 3.8 cm right upper lobe mass with maximum SUV of 23.3. There are tree-in-bud opacities and centrilobular nodules peripheral to the mass, consistent with pneumonia. There is a reba cified pleural plaque on the right. A calcified right lung nodule and calcified right hilar lymph nod es are consistent with old granulomatous disease. No pleural effusion. The heart size is normal. Ther e are coronary artery calcifications. There are calcifications of aortic valve. No pericardial effusi on. Abdomen/pelvis/proximal thighs: The liver is normal. Calcifications in the spleen are consistent with old granulomatous disease. There are gallstones in the gallbladder. Gallbladder distention may be se condary to fasting. The pancreas, adrenal glands, and left kidney are normal. There is a 10 mm cyst i n right kidney. There are no dilated loops of bowel. The appendix is normal. There are no pathologica lly enlarged lymph nodes. There is no free intraperitoneal fluid. There is severe lumbar spondylosis. IMPRESSION: 1. 5.6 x 3.8 cm mass in right lung upper lobe with maximum SUV of 23.3, worsened from 2.9 x 2.4 cm on 01/04/2022, consistent with squamous cell carcinoma. 2. Mild postobstructive pneumonia in right upper lobe. Reviewed, dictated and finalized at location B. IMPRESSION: 1. 5.6 x 3.8 cm mass in right lung upper lobe with maximum SUV of 23.3, worsene d from 2.9 x 2.4 cm on 01/04/2022, consistent with squamous cell carcinoma. 2. Mild postobstructive pneumonia in right upper lobe.
[2022-05-03 09:27] LABS: Glucose Point of Care 90 mg/dl (65-105)
== END 2022-05-03 09:05 | disposition home or self-care (01) ==
LOC: ANHIMG 09:09
PROVIDERS: PCP Internal Medicine; Visit Provider Internal Medicine Hematology & Oncology
DX: C34.11 Malignant neoplasm of upper lobe, right bronchus or lung (principal); J18.9 Pneumonia, unspecified organism
CPT/HCPCS: 78815; A9552

== ENCOUNTER 2022-06-22 13:24 | Outpatient (CLI) | payer OTHER, SELFPAY ==
--- NOTE | 2022-06-25 11:04 | P.PCNPFT_ITS ---
PFT Procedure Performed PFT Procedure Performed Plethysmography (Lung Vol) Diffusing Cap (DLCO) Flow Vol Loop Spirometry w/o Bronchodil PFT Interpretation Lung volumes were measured with the body plethysmography method. The elevated FRC and RV are indicative of air trapping. Spirometry showed diminished expir atory flow rates and a diminished FEV1 to FVC ratio 54%, consistent with obstructive airway disease. Lung diffusion capacity is moderately reduced at 52% predicted. The flow volume loop is consistent with obstructive airway disease. No post bronchodilator study was carried out. Impression: Moderate obstructive airway disease with evidence of air trapping. Moderately reduced lung diffusion capacity.
== END 2022-06-22 13:25 | disposition home or self-care (01) ==
LOC: ANHPFT 13:26
PROVIDERS: Visit Provider Internal Medicine Hematology & Oncology
DX: C34.91 Malignant neoplasm of unspecified part of right bronchus or lung (principal); R94.2 Abnormal results of pulmonary function studies
CPT/HCPCS: 94375; 94726; 94729

== ENCOUNTER 2022-08-01 01:08 | Day surgery (SDC) | payer OTHER, SELFPAY ==
[2022-07-27 14:48] VITALS: BMI 32.5
--- NOTE | 2022-07-27 15:03 | PC.NURSE ---
Report to the Outpatient Waiting Room, entrance under the green pavilion located off [facility], at time _1130 on date 08/01/22 . OR Time: _1330 . Time changes happen often and if your time is changed the preop area will call you the afternoon before. - You and your visitor will be asked to self-screen and do not enter if you have any COVID symptoms. - Only one visitor and NO children visitors are allowed at this time. - The patient visitor is requested to leave or wait in car when not with patient due to restrictions. - A mask is required within the hospital. Patients may have clear liquids (water, carbonated beverages, clear teas, apple juice) until 3 hours prior to surgery with a maximum of 20 ounces. - No food from midnight until time of surgery - Infants may have breast milk until 4 hours before surgery, formula 6 hours prior to surgery. - Children will be allowed to drink immediately following surgery. If applicable, please bring a bottle or sippy cup to assist with drinking. Juice, water, soda, and popsicles are readily available. For infants on formula, please bring formula the day of surgery. Pacifiers are allowed. Take the following medications with a SIP of water the morning of surgery: ___ALBUTEROL IF NEEDED,ARIPIPRAZOLE,BUPROPION,GABAPENTIN,LEVOTHYROXINE,MIRTAZAPINE Medications to discontinue per physician NONE Date to take last dose Please no make-up, nail greenlandic, hairspray, perfume, deodorant, or body powder the day of surgery. No jewelry (including any body piercings) or valuables the day of surgery, leave them at home. Please take a shower or bath the night before, or the morning of, surgery with an antibacterial soap. Wear comfortable, loose fitting clothing. Children are encouraged to wear pajamas. - Jewelry must be removed prior to entering the operating room. Rings and piercings that are not removed may be cut off. - The hospital will not accept responsibility for valuables. - Please leave all valuables, including medications, at home the day of surgery. If you are going home after surgery, a licensed hazardous materials driver must drive you home. - NO public transportation without another adult. - We recommend that an adult stay with you for 24 hours following discharge. - We also recommend that you do not drive, make important decision, drink alcoholic beverages, or take any drugs that were not prescribed by your health care provider for at least 24 hours after your discharge time. For Pediatric surgeries, we recommend two adults accompany the child home (only one inside the building at this time). Follow any additional instructions given to you from your surgeon. If you or anyone in your household have experienced Covid symptoms in the past week, please notify your surgeon or the nurse liaison at the phone number below for possible testing. Telephone instructions given to _PATIENT AND FAXED TO [facility]AC[facility] and asked if any additional questions and then verbalized understanding. Patient advised to call surgeon office or pre surgery nurse liaison [phone] if any additional questions.
--- NOTE | 2022-07-31 21:49 | PM.HPGS ---
History of Present Illness History of Present Illness Consent: Risks, benefits, and alternatives have been discussed and questions answered. Patient agrees to proceed with procedure. Chief complaint: Malignant Neoplasm Right Lung Narrative: Farhan Armstrong is a 76 year old white male with known Stage II B Right lung cancer. He is working with Dr Murry to treat this and needs central venous access for use in Chemotherapy. Pt is a former smoker. Review of Systems Constitutional: Constitutional: Reports no additional constitutional complaints, Reports fatigue and Denies malaise Eyes: Eyes: Denies change in vision and Denies loss of vision ENT: Reports Normal hearing present, Denies change in voice, Denies dizziness, Denies hoarseness and Denies sore throat Cardiovascular: Cardiovascular: Denies chest pain, Denies leg edema and Denies dyspnea Comments: HX of hyperlipidemia Hx of diastolic and systolic congestive heart failure. Respiratory: Respiratory: Denies cough, Denies dyspnea and Denies wheezing Comments: Hx of ANIA Hx of COPD Gastrointestinal: Gastrointestinal: Denies hematochezia, Denies change in bowel habits and Denies heartburn Genitourinary: Genitourinary: Denies urinary frequency and Denies urinary incontinence Neurologic: Reports Normal hearing present, Denies confusion, Denies dizziness, Denies loss of vision, Denies memory loss and Denies seizure-like activity Psychiatric: Psychiatric: Denies confusion, Denies depression and Denies memory loss Comments: HX of depresion on medication Endocrine: Endocrine: Denies cold intolerance and Reports fatigue Comments: Hx of insulin dep diabetes melliti with polyneuropathy Hematologic/Lymphatic: Hematologic/Lymphatic: Denies easy bleeding and Denies easy bruising Allergic/Immunologic: Allergic/Immunologic: Denies wheezing FOR[facility]LY [facility] Past Medical History Medical History Arthritis (03/26/19) Atrial fibrillation with controlled ventricular rate Chronic congestive heart failure COPD (chronic obstructive pulmonary disease) Depression Diabetes mellitus Diabetic polyneuropathy associated with type 2 diabetes mellitus Fibromyalgia Mixed hyperlipidemia ANIA (obstructive sleep apnea) Restless legs syndrome Surgical History Surgical History History of hernia repair Family History Family History Sibling Patient's sister is in good health Hypertension Family history of heart disease in male family member before age 55 Mother Family history of heart disease in male family member before age 55 Patient's mother is Family history of congestive heart failure, Onset Age: 70 Father Patient's father is Acute myocardial infarction, Onset Age: 62 Grandparent Depression Family history of arthritis Family history of malignant neoplasm of breast Family history of heart disease in male family member before age 55 Other Cerebrovascular accident Family history of cardiovascular disease Social History Social History Social History: 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 He is a former smoker. The patient is retired. The patient he tells me that he wants to be a DNR. 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 The patient appeared to be alert enough to make that decision however I believe there needs to be further discussion with his family members. Code status full code Smoking packs per day: 1.5 Smoking cigarettes per day: 30.0 Years smoked: 30 Smoking pack-years: 45.00 Smoking status: Former smoker Tobacco type: cigarettes Second hand tobacco smoke exposure: Yes Smoking end last
--- NOTE | ~2022-08-01 | XR_ITS ---
EXAMINATION: XR fl guide central line place INDICATION: Port-A-Cath insertion TECHNIQUE: A single intraoperative fluoroscopic image is submitted for review. Total fluoroscopic gaston e was 24.3 seconds. COMPARISON: None available FINDINGS: There is a right internal jugular Port-A-Cath ending with its tip in the distal superior ve na cava. Please refer to procedure note for full details. IMPRESSION: 1. Right internal jugular Port-A-Cath ending with its tip in the distal superior vena cava. Reviewed, dictated and finalized at location B. IMPRESSION: 1. Right internal jugular Port-A-Cath ending with its tip in the distal superio r vena cava.
--- NOTE | ~2022-08-01 | XR_ITS ---
EXAMINATION: XR chest port-a-cath/central INDICATION: Port-A-Cath insertion TECHNIQUE: Portable AP chest at 1444 hours COMPARISON: 01/10/2022 FINDINGS: A right internal jugular Port-A-Cath ends with its tip at the superior cavoatrial junction. No pneumothorax or pleural effusion. The heart size is normal. There is a perihilar right upper lobe mass. IMPRESSION: 1. Right internal jugular Port-A-Cath ending with its tip at the superior cavoatrial junction. No pne umothorax. 2. Perihilar right upper lobe mass, consistent with known malignancy. Reviewed, dictated and finalized at location B. IMPRESSION: 1. Right internal jugular Port-A-Cath ending with its tip at the superior cavoa trial junction. No pneumothorax. 2. Perihilar right upper lobe mass, consistent with known malignancy.
[2022-08-01 11:35] VITALS: BP 123/59; PULSE 81; RESP 16; TEMP 37.1; O2SAT 96
--- NOTE | 2022-08-01 12:20 | WPDANESEPPF ---
Anes - Initial Pre Proc Eval Procedure: Operation Date: 08/01/22 13:30 Proposed Procedures p Insertion Shaq Cath - Hank Crabtree MD Date/Time: 08/01/22 12:20 Surgeon: Hank Crabtree MD Pre Op Diagnosis: Malignant Neoplasm Right Lung Patient Data Age: 76 Gender: M Height: 1.73 m Weight: 97.1 kg Last Vital Signs Temp 37.1 C 08/01/22 11:35 Pulse 81 08/01/22 11:35 Resp 16 08/01/22 11:35 BP 123/59 L 08/01/22 11:35 Pulse Ox 96 08/01/22 11:35 O2 Del Method Room Air 08/01/22 11:35 Allergies Allergy/AdvReac Type Severity Reaction Status Date / Time Penicillins Allergy Unknown SHORTNESS Verified 07/27/22 14:15 OF BREATH Home Medications Medication Instructions Recorded Confirmed Type aspirin 81 mg tablet,delayed 81 mg PO DAILY 11/06/19 07/27/22 History release ropinirole 1 mg tablet 1 mg PO .QHS 12/18/19 07/27/22 History bupropion HCl 300 mg 24 hr tablet, 300 mg PO DAILY 03/09/21 07/27/22 History extended release spironolactone 25 mg tablet 25 mg PO DAILY 03/09/21 07/27/22 History metformin 500 mg tablet 500 mg PO DAILY #90 tabs 06/30/21 07/27/22 Rx aripiprazole 2 mg tablet (Abilify) 4 mg PO DAILY #180 tabs 02/15/22 07/27/22 Rx tamsulosin 0.4 mg capsule 0.4 mg PO DAILY 02/26/22 07/27/22 History gabapentin 100 mg capsule 100 mg PO TID #90 caps 06/12/22 07/27/22 Rx mirtazapine 15 mg tablet (Remeron) 15 mg PO DAILY #90 tabs 06/22/22 07/27/22 Rx polyethylene glycol 3350 17 17 g PO DAILY PRN constipation 06/28/22 07/27/22 Rx gram/dose oral powder (Miralax) #510 grams methadone 5 mg tablet 5 mg PO TID #90 tabs 07/16/22 07/27/22 Rx albuterol sulfate 90 mcg/actuation 1 puff inhalation Q4-6H PRN 07/27/22 07/27/22 History aerosol inhaler Shortness Of Breath levothyroxine 50 mcg tablet 50 mcg PO DAILY #30 tabs 07/30/22 Rx Patient hx anesthesia problems: none Family hx anesthesia problems: none Results Review: All pre-operative results and documents have been reviewed as part of the pre-operative evaluation. [facility] Past Medical History Medical History Arthritis (03/26/19) Atrial fibrillation with controlled ventricular rate Chronic congestive heart failure COPD (chronic obstructive pulmonary disease) Depression Diabetes mellitus Diabetic polyneuropathy associated with type 2 diabetes mellitus Fibromyalgia Mixed hyperlipidemia ANIA (obstructive sleep apnea) Restless legs syndrome Surgical History Surgical History History of hernia repair Family History Family History Sibling Patient's sister is in good health Hypertension Family history of heart disease in male family member before age 55 Mother Family history of heart disease in male family member before age 55 Patient's mother is Family history of congestive heart failure, Onset Age: 70 Father Patient's father is Acute myocardial infarction, Onset Age: 62 Grandparent Depression Family history of arthritis Family history of malignant neoplasm of breast Family history of heart disease in male family member before age 55 Other Cerebrovascular accident Family history of cardiovascular disease Social History Social History Social History: 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 He is a former smoker. The patient is retired. The patient he tells me that he wants to be a DNR. However he is listed as a full code at this time and I am not sure if he has durable power ip attorney. The patient appeared to be alert enough to make that decision however I believe there needs to be further discussion with his family members. Code status full code Smoking packs per day: 1.5 Smoking ciga
[2022-08-01 12:21] VITALS: BMI 32.5
[2022-08-01 12:29] LABS: Glucose Point of Care 88 mg/dl (65-105)
[2022-08-01] MEDS: LACTATED RINGERS 1,000 ML 30 ML IV CONT (12:52)
[2022-08-01] MEDS: KETOROLAC 15 MG/ML VIAL (*BKC) IV PUSH (12:54)
[2022-08-01 12:59] VITALS: BP 123/59; PULSE 81; RESP 16; TEMP 37.1; O2SAT 96
--- NOTE | 2022-08-01 13:16 | WPDHPUPDATE1 ---
History and Physical Update Update Date/Time: 08/01/22 13:16 History and Physical has been reviewed, including an updated exam of the patient. There are NO changes in the patient's condition. Risks, benefits, and alternatives have been discussed and questions answered. Patient agrees to proceed with procedure.
[2022-08-01] MEDS: ceFAZolin 2 GM/D5W 50 ML 2 GM/50 ML BAG IVPB (13:36)
[2022-08-01] MEDS: HEPARIN SODIUM 5,000 UNITS/ML VIAL 5000 UNITS IRRIGATION (14:05)
[2022-08-01 14:35] VITALS: BP 132/74; PULSE 80; RESP 16; O2SAT 97
--- NOTE | 2022-08-01 14:37 | W.PM.PROC2 ---
Procedure Note - Detailed Date of Procedure 08/01/22 Pre-op Diagnosis Malignant Neoplasm Right Lung Post-op Diagnosis Same Procedure Performed 1. Placement of Shaq-cath. 2. Use of US for vascular access site selection and visualization of needle access to vein. Surgeon Hank Crabtree MD Ceramist Cat BLANCAS.OR first aid teacher Anesthesia Local (with 0.5% Marcaine with epinepherine) and Other (GIVS) Indications Patient has right lung cancer. He has completed radiation. This time he is planning chemotherapy with Dr. Murry. He is in need of central venous access for continuing chemotherapy. Findings Normal vascular anatomy in the right neck with carotid artery sitting just behind the medial portion of a fairly dilated right jugular vein. Description of Procedure Patient was seen and marked in the pre-op area prior to coming to the OR. Patient was brought to the operating room. Patient was placed supine on the operating table and general IV sedation was induced. The nurse etl manager provided And continuous monitoring, oxygen, and IV sedation or general anesthesia with IV sedation as was appropriate for the patient's condition. See anesthesia notes). Patient's head was carefully turned to the left side while in the supine position and the patient's entire neck and anterior chest on both sides was prepped and draped in the usual sterile fashion. Following this the appropriate time-out was completed confirming procedure and patient. We confirmed that all the needed equipment was present in the room including the vascular ultrasound probe in machine. Following this the ultrasound probe was draped into the field and using the probe we carefully identified the carotid artery and jugular vein on the right neck. I then saved an image of the vascular anatomy of the neck, which documented the selected vessels patency and transferred it from the ultrasound machine to the [employer] chart. I marked the skin directly over the right internal jugular vein. I then used an 11 blade knife to make a small christiane in the skin. Following this, using the continuous ultrasound guidance, a Cook needle was placed through the skin incision and on into this vein. I then was able to draw back good dark blood. Once this was completed a guidewire using a J-tip was advanced through the needle and then the needle and the guidewire cover were withdrawn. C-arm fluoroscopy was used to confirm that the guidewire was nicely in the central venous system. Once this was confirmed with the C - arm, I preceded on by making the pocket for the port on the patient's anterior right chest approximately 3 centimeters below the clavicle overlying the chest wall. Local anesthetic was infiltrated into the skin where there was a transverse incision marked out. Incision was made and we made a pocket inferior to the incision with just a little dissection superior. The Smart port was tried in the pocket and seemed to fit well. Following this the catheter which had been placed on a tunneling device was tunneled from the port site on the anterior right chest up to the right neck where the small incision had been made slightly larger with an #11 blade knife. Then the catheter was pulled through so that we would have 15 centimeters to put into the central venous system once the dilation took place. Following this we placed the dilator and sheath over the guidewire in the jugular vein and carefully dilated the tract into the central venous system. The guidewire and dilator were then removed, carefully covering the end of the sheath to prevent air embolus. The end of the catheter which had been removed from the tunneling device and the tip checked was then inserted into the sheath and into the neck. I then carefully pulled the 2 arms of the tear-away sheath away as the video production assistant held the catheter in position with a DeBakey forceps. Following this we checked the position of the catheter with C-arm fluoroscopy con
[2022-08-01 14:43] LABS: Glucose Point of Care 96 mg/dl (65-105)
[2022-08-01 15:00] VITALS: BP 131/73; PULSE 75; RESP 16; O2SAT 97
[2022-08-01 15:30] VITALS: BP 116/65; PULSE 67; RESP 16; O2SAT 94
== END 2022-08-01 16:00 | disposition home or self-care (01) ==
PROVIDERS: PCP Internal Medicine; Visit Provider Surgery
PROC: (CPT 36561; principal; 2022-08-01 13:30)
DX: C34.91 Malignant neoplasm of unspecified part of right bronchus or lung (principal); N40.0 Benign prostatic hyperplasia without lower urinary tract symptoms; G47.33 Obstructive sleep apnea (adult) (pediatric); J44.9 Chronic obstructive pulmonary disease, unspecified; E78.2 Mixed hyperlipidemia; I48.91 Unspecified atrial fibrillation; E11.42 Type 2 diabetes mellitus with diabetic polyneuropathy; I11.0 Hypertensive heart disease with heart failure; I50.9 Heart failure, unspecified; M79.7 Fibromyalgia; F11.20 Opioid dependence, uncomplicated; I25.10 Atherosclerotic heart disease of native coronary artery without angina pectoris; Z87.891 Personal history of nicotine dependence; Z79.84 Long term (current) use of oral hypoglycemic drugs; Z79.82 Long term (current) use of aspirin; Z79.51 Long term (current) use of inhaled steroids; E66.9 Obesity, unspecified; Z68.32 Body mass index [BMI] 32.0-32.9, adult
CPT/HCPCS: 36561; 76937; 77001; 82948; C1788; J0690; J1644; J1885; J2370; J2405; J2704; J3010; J7030; J7120

== ENCOUNTER 2022-10-16 12:58 | Outpatient (RCR) | payer OTHER, SELFPAY | END 2022-10-16 12:59 | disposition home or self-care (01) | LOC: ANHWOC 12:58 | PROVIDERS: PCP Internal Medicine; Visit Provider Internal Medicine Hematology & Oncology | DX: S31.809D Unspecified open wound of unspecified buttock, subsequent encounter (principal) | CPT/HCPCS: 99212; G0463 ==

== ENCOUNTER 2022-10-16 13:21 | Inpatient (IN) | payer OTHER, BC, SELFPAY ==
[2022-10-16] VITALS (19 sets, daily range): BP systolic 88–117; BP diastolic 36–67; PULSE 83–99; RESP 16–31; TEMP 36.8; O2SAT 89–98
--- NOTE | ~2022-10-16 | XR_ITS ---
EXAMINATION: XR chest 1V portable Exam Date/Time: 10/16/2022 19:25 REHABILITATION COUNSELLOR HISTORY: weakness Comparison: 08/01/2022, CT chest 01/04/2022. RESULT: Lines, tubes, and devices: Right implanted chest port terminating at the cavoatrial junction. Lungs and pleura: Diffuse reticular opacities and vascular congestion. Redemonstration of the right suprahilar mass Cardiomediastinal silhouette: Stable. Other: No acute osseous or upper abdominal finding. IMPRESSION: Pulmonary opacities likely represent interstitial edema, overlying chronic senescent change. Bronchio litis from atypical/viral infection could appear similarly. Reviewed, dictated and finalized at location K. BILITATION COUNSELLOR IMPRESSION: Pulmonary opacities likely represent interstitial edema, overlying chronic ruy scent change. Bronchiolitis from atypical/viral infection could appear similarl lyric
--- NOTE | ~2022-10-16 | CT_ITS ---
EXAMINATION: CT brain wo con DATE: 10/16/2022 21:13 INDICATION: AMS . TECHNIQUE: Computed tomography (CT) of the head was performed without intravenous contrast. The mA wa s adjusted according to patient size. Iterative reconstruction technique was employed. The dose-lengt h product was 681.00 mGy-cm. COMPARISON: 01/02/2022. FINDINGS: No acute intracranial hemorrhage or extra-axial fluid collection. No hydrocephalus, mass, or herniation. No acute ischemic infarct. Unremarkable dural venous sinus attenuation. No acute osseous abnormality. Chronic stable left mastoid air cell opacification and sclerosis, the remaining aerated spaces are cl ear. Mild atrophy and chronic white matter change. Atherosclerotic intracranial calcification. IMPRESSION: No acute intracranial process. Reviewed, dictated and finalized at location K. RTMENTAL SHIPPING CLERK
--- NOTE | ~2022-10-16 | CT_ITS ---
EXAMINATION: CT abdomen pelvis w con DATE: 10/16/2022 20:11 INDICATION: sacral wound, concern for osteo/necrosis TECHNIQUE: Computed tomography (CT) of the abdomen and pelvis was performed with 100 mL Omnipaque-350 intravenous contrast. Automated exposure control and iterative reconstruction technique were employe d. The dose-length product was 1337.78 mGy-cm. COMPARISON: 03/08/2021. FINDINGS: Exam limited by motion artifact. Lower thorax: Senescent change. Right medial pleural calcification. Ossified granuloma in the left lo wer lobe. Moderate coronary artery calcification. Liver: Normal. Biliary/Gallbladder: Gallbladder is normal. No bile duct dilation. Pancreas: Atrophic Spleen: Normal. Adrenals:No mass. Kidneys: Bilateral cortical thinning and scarring. Punctate bilateral nonobstructing calculi. Bilater al subcentimeter hypodensities, too small to characterize but most likely represent cysts GI tract: No small or large bowel dilation. Normal appendix. Mesentery/Peritoneum: No ascites, mass, or free air. Retroperitoneum: No mass. Atherosclerotic abdominal aortic and/or arterial calcifications. Pelvis: Severe bladder distention. Soft Tissues: Decubitus ulcer at the sacrococcygeal junction, with gas and fluid collection that exte nds to the coccygeal elements. No cortical erosion. Bones: No acute osseous finding. IMPRESSION: Sacrococcygeal decubitus ulcer, in contact with the coccygeal elements. No current evidence of osteom yelitis. Severe bladder distention. Reviewed, dictated and finalized at location K. RICT ADMINISTRATIVE ASSISTANT IMPRESSION: Sacrococcygeal decubitus ulcer, in contact with the coccygeal elements. No curr ent evidence of osteomyelitis. Severe bladder distention.
--- NOTE | 2022-10-16 19:10 | ED.GENADULT ---
HPI - General Adult General Chief complaint: Skin/Abscess/Foreign Body Stated complaint: necrotic wound on sacrum Time Seen by Provider: 10/16/22 19:10 Source: patient Mode of arrival: ambulatory Limitations: no limitations History of Present Illness HPI narrative: Patient is a 76-year-old male with a history of diabetes, hypertension, congestive heart failure, atrial fibrillation, squamous cell carcinoma of the lung, currently on chemotherapy/radiation regimen, presenting to the emergency department for evaluation of malodorous sacral wound. Patient is minimally ambulatory, with limited mobility worsening since chemotherapy treatment 6 weeks ago. Patient presenting from wound care office for evaluation for potential osteomyelitis, worsening sacral wound with malodorous scent. No systemic symptoms per patient however he is quite sleepy at the time of my assessment. Son at bedside states that this is pretty normal for him. Patient does awaken, can state his name and identify he is at the hospital. Oriented x2. Patient does report buttock pain. No known fever, chills, other complaints of acute pain in the chest or abdomen. Patient's son states that his last admission the patient was DNR. Patient did have a chemotherapy treatment 6 weeks ago which really wiped him out. Patient with decreasing energy since that initial treatment. Related Data Home Medications Medication Instructions Recorded Confirmed aspirin 81 mg tablet,delayed 81 mg PO DAILY 11/06/19 08/10/22 release ropinirole 1 mg tablet 1 mg PO HS 12/18/19 08/10/22 bupropion HCl 300 mg 24 hr tablet, 300 mg PO DAILY 03/09/21 08/10/22 extended release spironolactone 25 mg tablet 25 mg PO DAILY 03/09/21 08/10/22 tamsulosin 0.4 mg capsule 0.4 mg PO DAILY 02/26/22 08/10/22 albuterol sulfate 90 mcg/actuation 1 puff inhalation Q4-6H PRN 07/27/22 08/10/22 aerosol inhaler Shortness Of Breath dexamethasone 4 mg tablet See Rx Instructions .Route .COMPLEX 08/10/22 08/10/22 furosemide 40 mg tablet 60 mg PO BID 08/10/22 08/10/22 levothyroxine 50 mcg tablet 25 mcg PO DAILY 08/10/22 08/10/22 lidocaine-prilocaine 2.5 %-2.5 % See Rx Instructions .Route .COMPLEX 08/10/22 08/10/22 topical cream ondansetron 8 mg disintegrating 8 mg PO Q8H PRN Nausea 08/10/22 08/10/22 tablet Allergies Allergy/AdvReac Type Severity Reaction Status Date / Time Penicillins Allergy Unknown SHORTNESS Verified 08/10/22 10:32 OF BREATH Review of Systems Review of Systems: Limited secondary to mental status ROS unobtainable: Yes unobtainable due to mental status PMFSH Past Medical History Medical History Arthritis (03/26/19) Atrial fibrillation with controlled ventricular rate Chronic congestive heart failure COPD (chronic obstructive pulmonary disease) Depression Diabetes mellitus Diabetic polyneuropathy associated with type 2 diabetes mellitus Fibromyalgia Mixed hyperlipidemia ANIA (obstructive sleep apnea) Restless legs syndrome Surgical History Surgical History History of hernia repair Family History Family History Sibling Patient's sister is in good health Hypertension Family history of heart disease in male family member before age 55 Mother Family history of heart disease in male family member before age 55 Patient's mother is Family history of congestive heart failure, Onset Age: 70 Father Patient's father is Acute myocardial infarction, Onset Age: 62 Grandparent Depression Family history of arthritis Family history of malignant neoplasm of breast Family history of heart disease in male family member before age 55 Other Cerebrovascular accident Family history of cardiovascular disease Social History Social History (Reviewed 10/16/22 @ 19:31 by Juwan
[2022-10-16 19:38] LABS: Basophils Absolute Auto 0.1 K/mm3 (0.0-0.1); Basophils Percent Auto 0.3 % (0.2-1.2); Eosinophils Absolute Auto 0.2 K/mm3 (0-0.3); Eosinophils Percent Auto 0.9 % (0-4.4); Hematocrit 32.2 % (42.0-52.0); Hemoglobin 10.5 g/dL (14.0-18.0); Immature Granulocyte Absolute 0.14 K/mm3 (0.00-0.031); Immature Granulocyte Percent A 0.8 % (0-0.5); Lymphocytes Absolute Auto 0.64 K/mm3 (0.9-3.2); Lymphocytes Percent Auto 3.8 % (18.3-44.2); Mean Corpuscular HGB Conc 32.6 g/dl (32-36); Mean Corpuscular Hemoglobin 31.4 pg (26-34); Mean Corpuscular Volume 96.4 fl (80-100); Mean Platelet Volume 9.4 fl (7.4-10.4); Monocytes Absolute Auto 1.5 K/mm3 (0.1-0.6); Monocytes Percent Auto 8.6 % (2.6-8.5); Neutrophils Absolute Auto 14.4 K/mm3 (1.3-6.7); Neutrophils Percent Auto 85.6 % (45.5-73.1); Platelet Count Result 212 k/mm3 (150-375); Red Blood Count 3.34 M/mm3 (4.6-6.20); Red Cell Distribution Width 14.7 % (11.5-14.5); White Blood Count 16.8 K/mm3 (4.5-10.0)
[2022-10-16 19:48] LABS: Anion Gap 10 mmol/L (8-16); Blood Urea Nitrogen 24 mg/dL (9-20); Calcium 8.2 mg/dL (8.4-10.2); Carbon Dioxide 33 mmol/L (22-30); Chloride 94 mmol/L (98-107); Estimated CRCL calculation 51 ml/min; Estimated Glomerular Filt Rate 59; Glucose 104 mg/dL (65-110); Potassium 3.2 mmol/L (3.4-5.0); Sodium 137 mmol/L (137-145)
[2022-10-16] MEDS: SODIUM CHLORIDE 0.9% IV 1,000 ML 999 ML IV CONT (19:52)
[2022-10-16 20:05] LABS: CRP 17.9 mg/dL (<1.0)
[2022-10-16 20:14] LABS: Influenza A QL RT-PCR Negative (Negative); Influenza B QL RT-PCR Negative (Negative); RSV RNA, RT-PCR Negative (Negative); SARS-CoV-2 RNA PCR Negative
[2022-10-16 20:35] LABS: Erythrocyte Sedimentation Rate > 140 mm/hr (0-20)
--- NOTE | 2022-10-16 20:39 | ECG_ITS ---
Measurements Intervals [place] Rate: 91 P: 82 MS: 187 QRS: 53 QRSD: 106 T: 65 QT: 384 QTc: 475 Interpretive Statements SINUS RHYTHM NORMAL ECG COMPARED TO ECG 01/02/2022 13:27:37 NO SIGNIFICANT CHANGES Electronically Signed On 10-16-2022 22:59:58 COLLECTION ADVISOR by Trell Walters D.O.
[2022-10-16 20:50] LABS: NT Pro B Type Natriuretic Pept 644 pg/mL (5-100)
[2022-10-16 21:40] LABS: Appearance Urine Clear (Clear); Bilirubin Urine Negative (Negative); Blood Urine Negative (Negative); Color Urine Yellow (Yellow); Glucose Urine UA Negative (Negative); Ketones Urine Negative (Negative); Leukocyte Esterase Ur Negative LEU/UL (Negative); Nitrate Urine Negative (Negative); Protein Urine Negative (Negative); pH Urine 5.5 (5.0-9.0)
[2022-10-16 21:43] LABS: Mucus Urine Rare /lpf; RBC Urine 0-2 /hpf (0-2); Squamous Epithelial Cell Urine Rare /hpf (Few); WBC Urine 0-3 /hpf
[2022-10-16 21:49] LABS: Add Urine Microscopic? NO
--- NOTE | 2022-10-16 22:00 | PM.IMHP ---
H&P: HPI History of Present Illness Date/Time: 10/16/22 22:00 Chief Complaint: altered mental status Narrative: This is a 76-year-old male with past medical history significant for aortic valve stenosis, atrial fibrillation, COPD, CHF, coronary artery disease, diabetes mellitus, fibromyalgia, obstructive sleep apnea, restless leg syndrome. Patient was brought to the emergency room for evaluation of worsening decubitus ulcer with malodorous discharge, patient had been undergoing chemotherapy and radiation for squamous cell lung cancer. At the time of my visit patient was lethargic unable to give any history. Patient is been admitted for further evaluation management and treatment. Review of Systems Review of Systems: ROS unobtainable: Yes unobtainable due to mental status PMFSH Past Medical History Medical History Aortic valve stenosis Arthritis (03/26/19) Atrial fibrillation with controlled ventricular rate Chronic congestive heart failure COPD (chronic obstructive pulmonary disease) Coronary artery disease 2019 - nonSTEMI - left heart cath showed mild coronary artery disease with severe LV dysfunction EF 20% with possible underlying nonischemic cardiomyopathy, no PCI Depression Diabetes mellitus Diabetic polyneuropathy associated with type 2 diabetes mellitus Fibromyalgia Mixed hyperlipidemia ANIA (obstructive sleep apnea) Restless legs syndrome Surgical History Surgical History History of hernia repair Umbilical hernia repair. Bilateral inguinal hernia repairs. Family History Family History Sibling Patient's sister is in good health Hypertension Family history of heart disease in male family member before age 55 Mother Family history of heart disease in male family member before age 55 Patient's mother is Family history of congestive heart failure, Onset Age: 70 Father Patient's father is Acute myocardial infarction, Onset Age: 62 Grandparent Depression Family history of arthritis Family history of malignant neoplasm of breast Family history of heart disease in male family member before age 55 Other Cerebrovascular accident Family history of cardiovascular disease Social History Social History Social History: 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 He is a former smoker. The patient is retired. The patient he tells me that he wants to be a DNR. However he is listed as a full code at this time and I am not sure if he has durable power assistant attorney general. The patient appeared to be alert enough to make that decision however I believe there needs to be further discussion with his family members. Code status full code Smoking packs per day: 1.5 Smoking cigarettes per day: 30.0 Years smoked: 30 Smoking pack-years: 45.00 Smoking status: Former smoker Tobacco type: cigarettes Second hand tobacco smoke exposure: Yes Smoking end date: 11/18/99 Alcohol intake: never Substance use: never Gender identity (if verbalized by the patient): Male Sexual Orientation (if Verbalized by the Patient): Straight or Heterosexual Spiritual care concerns: No Meds Home Medications and Allergies Home Medications Medication Instructions Recorded Confirmed Type aspirin 81 mg tablet,delayed 81 mg PO DAILY 11/06/19 10/17/22 History release ropinirole 1 mg tablet 1 mg PO HS 12/18/19 10/17/22 History bupropion HCl 300 mg 24 hr tablet, 300 mg PO DAILY 03/09/21 10/17/22 History extended release spironolactone 25 mg tablet 25 mg PO DAILY 03/09/21 10/17/22 History metformin 500 mg tablet 500 mg PO DAILY #90 tabs 06/30/21 10/17/22 Rx aripiprazole 2 mg tablet (Abilify) 4 mg PO DA
[2022-10-16] MEDS: POTASSIUM CHLORIDE 20 MEQ PACKET (FOR LIQUID) 40 MEQ PO (22:42)
[2022-10-16] MEDS: ACETAMINOPHEN 325 MG TABLET 650 MG PO (22:42)
[2022-10-17] VITALS (23 sets, daily range): BP systolic 90–149; BP diastolic 51–81; PULSE 75–102; RESP 14–23; TEMP 35.8–37.1; O2SAT 92–100; BMI 31.8
--- NOTE | 2022-10-17 02:58 | ADMGEN ---
This patient, Farhan Armstrong, was admitted to 3 Med Surg Room 304-01. Patient/family oriented to hospital policies and general routines including ID bracelet, bed and alarms, visiting hours, pain management, procedures, bathroom and other care routines, personal items, smoking policy, room service/diet, and visiting hours. Information on how to activate the Rapid Response Team has been discussed. Patient/Family are encouraged to report perceived risks to care and to ask questions if they do not understand what they are told or what they should do.
--- NOTE | 2022-10-17 05:20 | PC.NURSE ---
Called [facility] where pt is a resident to receive pt's paperwork and med list. Provided fax number and name.
[2022-10-17] MEDS: ACETAMINOPHEN 325 MG TABLET 650 MG PO (08:00)
[2022-10-17 08:47] LABS: Basophils Percent Auto 0.3 % (0.2-1.2); Eosinophils Absolute Auto 0.2 K/mm3 (0-0.3); Hematocrit 32.4 % (42.0-52.0); Hemoglobin 10.8 g/dL (14.0-18.0); Immature Granulocyte Absolute 0.13 K/mm3 (0.00-0.031); Immature Granulocyte Percent A 0.9 % (0-0.5); Lymphocytes Absolute Auto 0.61 K/mm3 (0.9-3.2); Lymphocytes Percent Auto 4.3 % (18.3-44.2); Mean Corpuscular HGB Conc 33.3 g/dl (32-36); Mean Corpuscular Hemoglobin 31.1 pg (26-34); Mean Corpuscular Volume 93.4 fl (80-100); Mean Platelet Volume 9.4 fl (7.4-10.4); Monocytes Absolute Auto 1.1 K/mm3 (0.1-0.6); Monocytes Percent Auto 7.6 % (2.6-8.5); Neutrophils Absolute Auto 12.3 K/mm3 (1.3-6.7); Neutrophils Percent Auto 85.9 % (45.5-73.1); Platelet Count Result 241 k/mm3 (150-375); Red Blood Count 3.47 M/mm3 (4.6-6.20); Red Cell Distribution Width 14.6 % (11.5-14.5); White Blood Count 14.3 K/mm3 (4.5-10.0)
[2022-10-17 08:55] LABS: Alanine Aminotransferase 15 U/L (6-50); Alkaline Phosphatase 58 U/L (38-126); Anion Gap 8 mmol/L (8-16); Aspartate Amino Transferase 23 U/L (17-59); Bilirubin,Total 0.5 mg/dL (0.2-1.3); Blood Urea Nitrogen 20 mg/dL (9-20); Calcium 8.4 mg/dL (8.4-10.2); Carbon Dioxide 31 mmol/L (22-30); Chloride 99 mmol/L (98-107); Estimated CRCL calculation 60 ml/min; Estimated Glomerular Filt Rate > 60; Glucose 90 mg/dL (65-110); Potassium 3.7 mmol/L (3.4-5.0); Sodium 138 mmol/L (137-145)
--- NOTE | 2022-10-17 10:51 | PM.CNGS ---
Assessment and Plan Assessment and plan (1) Sacral decubitus ulcer: Code(s): L89.159 - Pressure ulcer of sacral region, unspecified stage Status: Acute Assessment and Plan: The patient has an unstageable necrotic sacral decubitus ulcer with a foul odor. CT scan abdomen/pelvis showed no evidence of osteomyelitis. WBC count was 16,000 on admission and down to 14,000 today. He is afebrile and is not currently on antibiotics. Wound care has been consulted and Dakin's dressing changes were initiated. I discussed the case with Dr. Velasquez. We would recommend proceeding with incision and drainage of the sacral decubitus ulcer in the OR. Description of the procedure, risks, benefits, and expected outcomes were discussed with the patient in detail. All questions were answered. He agrees to proceed. I have made the patient NPO for surgery this afternoon. Will adjust wound care as needed after surgery. Continue to frequently turn the patient at least every 2 hours and minimize pressure to his wound. Will also order a specialty mattress. Thank you for allowing us to see the patient in consultation and we will continue to follow along with you. (2) Non-small cell carcinoma of lung: Code(s): C34.90 - Malignant neoplasm of unspecified part of unspecified bronchus or lung Status: Acute (3) Aortic valve stenosis: Code(s): I35.0 - Nonrheumatic aortic (valve) stenosis Status: Acute Assessment and Plan: Most recent echo noted in the EMR was from December 2021 and showed mild aortic valve stenosis with an EF 55-60% and grade 1 diastolic dysfunction. (4) Coronary artery disease: Code(s): I25.10 - Atherosclerotic heart disease of [place] coronary artery without angina pectoris Status: Acute (5) COPD (chronic obstructive pulmonary disease): Qualifiers: COPD type: unspecified COPD Qualified Code(s): J44.9 - Chronic obstructive pulmonary disease, unspecified Code(s): J44.9 - Chronic obstructive pulmonary disease, unspecified Status: Chronic (6) ANIA (obstructive sleep apnea): Code(s): G47.33 - Obstructive sleep apnea (adult) (pediatric) Status: Chronic (7) Diabetes mellitus: Qualifiers: Diabetes mellitus type: type 2 Diabetes mellitus fdc insulin use: without fdc use Diabetes mellitus complication status: without complication Qualified Code(s): E11.9 - Type 2 diabetes mellitus without complications Code(s): E11.9 - Type 2 diabetes mellitus without complications Status: Chronic (8) PAF (paroxysmal atrial fibrillation): Code(s): I48.0 - Paroxysmal atrial fibrillation Status: Acute (9) Obesity (BMI 30.0-34.9): Code(s): E66.9 - Obesity, unspecified Status: Acute Plan I have discussed the patient's case and plan of care with Dr. Velasquez. Thank you for allowing us to see the patient in consultation and we will continue to follow along with you. History of Present Illness Consult details Consult date: 10/17/22 Reason for consult: other (Sacral decubitus ulcer) Requesting physician: Manuel Ramirez APN-C Narrative: This is a 76-year-old man with congestive heart failure, type 2 diabetes mellitus, atrial fibrillation, hypertension, and non-small cell lung cancer who has recently been undergoing treatment. He completed radiation therapy June 29, 2022 and was started on chemotherapy with carboplatin and Taxol for his first cycle on August 10, 2022. He has not received any further chemo as he was tired and fatigued, and apparently developed open sores in the buttock area. Dr. Murry referred him to the wound clinic and started him on Keflex as an outpatient just under 2 weeks ago. The patient lives in assisted living with his and reports to me that he is nonambulatory. Therefore, he spent his entire day either sitting or lying down. He has also recently become incontinent of urine. He reports being recently
[2022-10-17] MEDS: methADONE HCL (*CRX) 5 MG TABLET PO ×2 (10:59→16:23)
[2022-10-17] MEDS: SOD HYPOCHLORITE 1/4 STRENGTH 473 ML 1 APPLIC TOPICAL ×2 (11:02→22:37)
--- NOTE | 2022-10-17 11:15 | PM.IMPN ---
Progress Note: A&P Assessment and Plan (1) Decubitus ulcer, infected: Code(s): L89.90 - Pressure ulcer of unspecified site, unspecified stage; L08.9 - Local infection of the skin and subcutaneous tissue, unspecified Status: Acute Assessment and Plan: Stage IV draining Wound care consulted General surgery consulted Surgical procedure possible for today Consider antibiotics for empiric coverage Post op care to general surgery Methadone for pain (2) Non-small cell carcinoma of lung: Code(s): C34.90 - Malignant neoplasm of unspecified part of unspecified bronchus or lung Status: Acute Assessment and Plan: Patient's last chemo treatment was August 10. Patient is unable to continue treatment at this time Will continue to refer to outpatient follow-up. (3) ANIA (obstructive sleep apnea): Code(s): G47.33 - Obstructive sleep apnea (adult) (pediatric) Status: Chronic Assessment and Plan: Appears stable Will get ApneaLink as patient does not seem to be on any machines (4) COPD (chronic obstructive pulmonary disease): Qualifiers: COPD type: unspecified COPD Qualified Code(s): J44.9 - Chronic obstructive pulmonary disease, unspecified Code(s): J44.9 - Chronic obstructive pulmonary disease, unspecified Status: Chronic Assessment and Plan: Stable not in acute exacerbation Continue albuterol Continue supplemental oxygen wean to maintain saturations greater than 90% Trend respiratory status Adjust therapy as indicated (5) Diabetic polyneuropathy associated with type 2 diabetes mellitus: Code(s): E11.42 - Type 2 diabetes mellitus with diabetic polyneuropathy Status: Acute Assessment and Plan: Glucose 158 A1c ordered Metformin on hold Insulin sliding scale Hypoglycemia protocol Accu-Cheks AC and HS Trend glucose Time Spent With Patient Time with patient: Greater than 35 minutes Subjective Date/time seen: 10/17/22 11:36 Interval history: 10/17/22 1115 Patient is 76-year-old male with a past medical history of small cell carcinoma, AFib, COPD, CHF CAD, diabetes, hyperlipidemia who presented to the ED with complaints of worsening wound condition of the coccyx. Today patient stated that he is having a lot of pain in his coccyx area. His son was also present and stated that the patient takes methadone for pain. The patient was also complaining that he was not getting anything need however general surgery has came by and in its possibly taking the patient to surgery for a possible debridement. Currently patient denies any chest pain, shortness a breath, nausea, vomiting, diarrhea, constipation, weakness or fatigue. Patient did set of a catheter and states that he does urinate normally on his own. He also stated that he is very weak and does not use his legs much. He does use a walker at home on most occasions, however he has not been doing much lately. His son states that he can get up and move around very very little. Review of Systems Review of Systems: All systems reviewed & are unremarkable except as noted in HPI and below Exam Narrative: General: well-nourished, ill appearing 76 year old male, laying in bed, uncomfortable, NARD, complaining of pain Neuro: awake, alert and oriented x2, speech clear, no focal neuro deficits noted HEENMT: normocephalic, atraumatic, EOMI, sclerae anicteric, moist oral mucosa Respiratory: Clear to auscultation bilaterally without crackles, rhonchi or wheezes, nonlabored breathing Cardio: regular rate, regular rhythm with S1-S2 Abdomen: nondistended, normoactive bowel sounds, soft, nontender to palpation Extremities: no edema, erythema, or tenderness to palpation, DP pulses 2+ bilaterally Skin: Stage 4 wound to the coccyx, red and draining, currently has dressing placed that is dry and intact. Psych: ap
--- NOTE | 2022-10-17 13:01 | WPDHPUPDATE1 ---
History and Physical Update Update Date/Time: 10/17/22 13:01 History and Physical has been reviewed, including an updated exam of the patient. There are NO changes in the patient's condition. Risks, benefits, and alternatives have been discussed and questions answered. Patient agrees to proceed with procedure.
--- NOTE | 2022-10-17 13:09 | WPDANESEPPF ---
Anes - Initial Pre Proc Eval Procedure: Operation Date: 10/17/22 16:00 Proposed Procedures p Incison and Drainage Debride Sacral Decubitus - Tomasz Velasquez MD Date/Time: 10/17/22 13:09 Surgeon: Serafin Mirza MD Pre Op Diagnosis: Sacral Ulcer Patient Data Age: 76 Gender: M Height: 1.73 m Weight: 95.2 kg Last Vital Signs Temp 36.4 C L 10/17/22 13:03 Pulse 83 10/17/22 13:03 Resp 14 10/17/22 13:03 BP 104/53 L 10/17/22 13:03 Pulse Ox 94 10/17/22 13:03 O2 Del Method Nasal Cannula 10/17/22 08:00 O2 Flow Rate 2 10/17/22 08:00 Allergies Allergy/AdvReac Type Severity Reaction Status Date / Time Penicillins Allergy Unknown SHORTNESS Verified 10/17/22 07:51 OF BREATH Home Medications Medication Instructions Recorded Confirmed Type aspirin 81 mg tablet,delayed 81 mg PO DAILY 11/06/19 10/17/22 History release ropinirole 1 mg tablet 1 mg PO HS 12/18/19 10/17/22 History bupropion HCl 300 mg 24 hr tablet, 300 mg PO DAILY 03/09/21 10/17/22 History extended release spironolactone 25 mg tablet 25 mg PO DAILY 03/09/21 10/17/22 History metformin 500 mg tablet 500 mg PO DAILY #90 tabs 06/30/21 10/17/22 Rx aripiprazole 2 mg tablet (Abilify) 4 mg PO DAILY #180 tabs 02/15/22 10/17/22 Rx tamsulosin 0.4 mg capsule 0.4 mg PO DAILY 02/26/22 10/17/22 History gabapentin 100 mg capsule 100 mg PO TID #90 caps 06/12/22 10/17/22 Rx mirtazapine 15 mg tablet (Remeron) 15 mg PO DAILY #90 tabs 06/22/22 10/17/22 Rx polyethylene glycol 3350 17 17 g PO DAILY PRN constipation 06/28/22 10/17/22 Rx gram/dose oral powder (Miralax) #510 grams albuterol sulfate 90 mcg/actuation 1 puff inhalation Q4-6H PRN 07/27/22 10/17/22 History aerosol inhaler Shortness Of Breath dexamethasone 4 mg tablet See Rx Instructions .Route .COMPLEX 08/10/22 10/17/22 History furosemide 40 mg tablet 60 mg PO BID 08/10/22 10/17/22 History levothyroxine 50 mcg tablet 25 mcg PO DAILY 08/10/22 10/17/22 History lidocaine-prilocaine 2.5 %-2.5 % See Rx Instructions .Route .COMPLEX 08/10/22 10/17/22 History topical cream ondansetron 8 mg disintegrating 8 mg PO Q8H PRN Nausea 08/10/22 10/17/22 History tablet methadone 5 mg tablet 5 mg PO TID #90 tabs 10/08/22 10/17/22 Rx Laboratory Tests 10/16/22 10/16/22 10/16/22 19:26 19:30 19:30 WBC 16.8 K/mm3 H K/mm3 (4.5-10.0) RBC 3.34 M/mm3 L M/mm3 (4.6-6.20) Hgb 10.5 g/dL L g/dL (14.0-18.0) Hct 32.2 % L % (42.0-52.0) MCV 96.4 fl fl (80-100) MCH 31.4 pg pg (26-34) MCHC 32.6 g/dl g/dl (32-36) RDW 14.7 % H % (11.5-14.5) Plt Count 212 k/mm3 k/mm3 (150-375) MPV 9.4 fl fl (7.4-10.4) Immature Gran % (Auto) 0.8 % H % (0-0.5) Neut % (Auto) 85.6 % H % (45.5-73.1) Lymph % (Auto) 3.8 % L % (18.3-44.2) [place] % (Auto) 8.6 % H % (2.6-8.5) Eos % (Auto) 0.9 % % (0-4.4) Baso % (Auto) 0.3 % % (0.2-1.2) Lymph # (Auto) 0.64 K/mm3 L K/mm3 (0.9-3.2) [place] # (Auto) 1.5 K/mm3 H K/mm3 (0.1-0.6) Eos # (Auto) 0.2 K/mm3 K/mm3 (0-0.3) Baso # (Auto) 0.1 K/mm3 K/mm3 (0.0-0.1) Abs Immat Gran (auto) 0.14 K/mm3 H K/mm3 (0.00-0.031) Absolute Neuts (auto) 14.4 K/mm3 H K/mm3 (1.3-6.7) Absolute Nucleated RBC 0.0 K/mm3 K/mm3 (0.0-0.012) Nucleated RBC % 0.0 % % (0.0-0.2) ESR > 140 mm/hr H mm/hr (0-20) Sodium 137 mmol/L mmol/L (137-145) Potassium 3.2 mmol/L L mmol/L (3.4-5.0) Chloride 94 mmol/L L mmol/L (98-107) Carbon Dioxide 33 mmol/L H mmol/L (22-30) Anion Gap 10 mmol/L mmol/L (8-16) BUN 24 mg/dL H mg/dL (9-20) Creatinine 1.20 mg/dL mg/dL (0.7-1.3) Estim Creat Clear Calc 51 ml/min ml/min Estimated GFR 59 (59 - ) Glucose
[2022-10-17] MEDS: LACTATED RINGERS 1,000 ML 30 ML IV CONT (13:10)
[2022-10-17 13:14] LABS: Glucose Point of Care 78 mg/dl (65-105)
[2022-10-17] MEDS: ceFAZolin 2 GM/D5W 50 ML 2 GM/50 ML BAG IVPB (13:41)
--- NOTE | 2022-10-17 14:31 | W.PM.PROC2 ---
Procedure Note - Detailed Date of Procedure 10/17/22 Pre-op Diagnosis Sacral Ulcer Post-op Diagnosis Same Procedure Performed Debridement sacral decubitus ulcer measuring 7 x 5.5 x 3 cm Surgeon Luann Arango MD Anesthesia General Indications 76-year-old male presenting unstageable decubitus ulcer with extensive necrosis Findings ulcer involving dermis, subcutaneous tissue, and underlying muscle no extension into fascia or bone Description of Procedure The patient was taken operating room placed in the lateral position. After adequate induction of general anesthesia, the patient was prepped and draped in the normal sterile fashion. A time-out was then done to verify the patient's identity, as well as the procedure being performed. I began by debriding the necrotic tissue in the ulcer. This debridement involved the dermis, underlying subcutaneous tissue, and underlying muscle. The extent of the necrosis extended into the muscle, however this did not involve the underlying fascia or bone. I was able to debride the entire ulcer back to healthy bleeding tissue. The measurements of the wound are now 7 x 5.5 x 3 cm. I then used the Bovie cautery and pressure to gain hemostasis. The wound was then copiously irrigated. Betadine-soaked Kerlix was used to dress the wound. Sterile dressing was then placed. The patient tolerated the procedure well and was extubated postoperatively. He will be transferred recovery room in stable condition. Estimated Blood Loss 25 Packing Yes Pathology None sent Complications No immediate complications Condition Stable Disposition PACU [facility] Billing Surgery - Charge Forward: Surgery Billing
[2022-10-17 15:07] LABS: Glucose Point of Care 92 mg/dl (65-105)
[2022-10-17] MEDS: LEVOTHYROXINE SODIUM 25 MCG TABLET PO (17:00)
[2022-10-17] MEDS: SPIRONOLACTONE 25 MG TABLET PO (17:01)
[2022-10-17] MEDS: GABAPENTIN 100 MG CAPSULE PO (17:01)
[2022-10-17] MEDS: ARIPiprazole 2 MG TABLET 4 MG PO (17:01)
[2022-10-17] MEDS: TAMSULOSIN HCL 0.4 MG CAPSULE PO (17:01)
[2022-10-17] MEDS: ASPIRIN 81 MG ENTERIC TABLET PO (17:01)
[2022-10-17] MEDS: MIRTAZAPINE 15 MG TABLET PO (17:01)
[2022-10-17] MEDS: buPROPion HCL XL (24 HR) 150 MG TABCR 300 MG PO (17:01)
[2022-10-17] MEDS: FUROSEMIDE 20 MG TABLET 60 MG PO (17:02)
[2022-10-17] MEDS: metroNIDAZOLE 500 MG/ISO 100ML 500 MG/100 ML BAG 100 MG IVPB ×2 (19:59→23:46)
[2022-10-17] MEDS: rOPINIRole HCL 1 MG TABLET PO (22:37)
[2022-10-17 23:13] LABS: Glucose Point of Care 148 mg/dl (65-105)
[2022-10-18] MEDS: metroNIDAZOLE 500 MG/ISO 100ML 500 MG/100 ML BAG 100 MG IVPB (05:10)
[2022-10-18] MEDS: LEVOTHYROXINE SODIUM 25 MCG TABLET PO (05:13)
[2022-10-18 06:00] VITALS: BP 117/62; PULSE 82; RESP 14; TEMP 36; O2SAT 95
[2022-10-18 06:55] LABS: Basophils Percent Auto 0.3 % (0.2-1.2); Eosinophils Absolute Auto 0.3 K/mm3 (0-0.3); Eosinophils Percent Auto 2.1 % (0-4.4); Hemoglobin 10.1 g/dL (14.0-18.0); Immature Granulocyte Percent A 0.8 % (0-0.5); Lymphocytes Absolute Auto 0.57 K/mm3 (0.9-3.2); Lymphocytes Percent Auto 4.7 % (18.3-44.2); Mean Corpuscular HGB Conc 32.6 g/dl (32-36); Mean Corpuscular Hemoglobin 31.9 pg (26-34); Mean Corpuscular Volume 97.8 fl (80-100); Mean Platelet Volume 9.5 fl (7.4-10.4); Monocytes Percent Auto 7.9 % (2.6-8.5); Neutrophils Absolute Auto 10.1 K/mm3 (1.3-6.7); Neutrophils Percent Auto 84.2 % (45.5-73.1); Platelet Count Result 229 k/mm3 (150-375); Red Blood Count 3.17 M/mm3 (4.6-6.20); Red Cell Distribution Width 14.6 % (11.5-14.5)
[2022-10-18 07:04] LABS: Alanine Aminotransferase 12 U/L (6-50); Albumin Level 2.8 g/dL (3.5-5.1); Alkaline Phosphatase 53 U/L (38-126); Anion Gap 5 mmol/L (8-16); Aspartate Amino Transferase 20 U/L (17-59); Bilirubin,Total 0.3 mg/dL (0.2-1.3); Blood Urea Nitrogen 16 mg/dL (9-20); Carbon Dioxide 32 mmol/L (22-30); Chloride 96 mmol/L (98-107); Estimated CRCL calculation 55 ml/min; Estimated Glomerular Filt Rate > 60; Glucose 94 mg/dL (65-110); Magnesium 1.9 mg/dL (1.6-2.3); Potassium 3.7 mmol/L (3.4-5.0); Sodium 133 mmol/L (137-145)
[2022-10-18 07:52] LABS: Hemoglobin A1C 5.3 % (<5.7)
[2022-10-18 08:00] LABS: Glucose Point of Care 97 mg/dl (65-105)
[2022-10-18] MEDS: SOD HYPOCHLORITE 1/4 STRENGTH 473 ML 1 APPLIC TOPICAL ×2 (09:00→20:41)
[2022-10-18] MEDS: methADONE HCL (*CRX) 5 MG TABLET PO ×3 (09:37→17:22)
[2022-10-18] MEDS: GABAPENTIN 100 MG CAPSULE PO ×3 (09:37→17:23)
--- NOTE | 2022-10-18 09:45 | PM.IMPN ---
Progress Note: A&P Assessment and Plan (1) Sacral decubitus ulcer: Code(s): L89.159 - Pressure ulcer of sacral region, unspecified stage Status: Acute Assessment and Plan: Stage IV draining Wound care consulted General surgery consulted debridement performed yesterday by General surgery antibiotics discontinued at this time, WBCs stable Post op care to general surgery Methadone for pain (2) Non-small cell carcinoma of lung: Code(s): C34.90 - Malignant neoplasm of unspecified part of unspecified bronchus or lung Status: Acute Assessment and Plan: Patient's last chemo treatment was August 10. Patient is unable to continue treatment at this time Will continue to refer to outpatient follow-up. (3) ANIA (obstructive sleep apnea): Code(s): G47.33 - Obstructive sleep apnea (adult) (pediatric) Status: Chronic Assessment and Plan: Appears stable Apnea link not necessary (4) COPD (chronic obstructive pulmonary disease): Qualifiers: COPD type: unspecified COPD Qualified Code(s): J44.9 - Chronic obstructive pulmonary disease, unspecified Code(s): J44.9 - Chronic obstructive pulmonary disease, unspecified Status: Chronic Assessment and Plan: Stable not in acute exacerbation Continue albuterol Continue supplemental oxygen wean to maintain saturations greater than 90% Trend respiratory status Adjust therapy as indicated (5) Diabetic polyneuropathy associated with type 2 diabetes mellitus: Code(s): E11.42 - Type 2 diabetes mellitus with diabetic polyneuropathy Status: Acute Assessment and Plan: Glucose 94 A1c ordered Metformin on hold Insulin sliding scale Hypoglycemia protocol Accu-Cheks AC and HS Trend glucose Time Spent With Patient Time with patient: Greater than 35 minutes Subjective Date/time seen: 10/18/22944 Interval history: 10/18/22944 patient seems to be doing well. Wound does look healthy pink with slight bloody drainage. Tunneling is manageable. He denies any chest pain, shortness a breath, nausea, vomiting, diarrhea, constipation, fatigue. Patient did state that he had some weakness. Patient is eating and doing well. 10/17/221114 Patient is 76-year-old male with a past medical history of small cell carcinoma, AFib, COPD, CHF CAD, diabetes, hyperlipidemia who presented to the ED with complaints of worsening wound condition of the coccyx. Today patient stated that he is having a lot of pain in his coccyx area. His son was also present and stated that the patient takes methadone for pain. The patient was also complaining that he was not getting anything need however general surgery has came by and in its possibly taking the patient to surgery for a possible debridement. Currently patient denies any chest pain, shortness a breath, nausea, vomiting, diarrhea, constipation, weakness or fatigue. Patient did set of a catheter and states that he does urinate normally on his own. He also stated that he is very weak and does not use his legs much. He does use a walker at home on most occasions, however he has not been doing much lately. His son states that he can get up and move around very very little. Review of Systems Review of Systems: All systems reviewed & are unremarkable except as noted in HPI and below ROS unobtainable: Yes unobtainable due to mental status Exam Narrative: General: well-nourished, ill appearing 76 year old male, laying in bed, uncomfortable, NARD, complaining of pain Neuro: awake, alert and oriented x2, speech clear, no focal neuro deficits noted HEENMT: normocephalic, atraumatic, EOMI, sclerae anicteric, moist oral mucosa Respiratory: Clear to auscultation bilaterally without crackles, rhonchi or wheezes, nonlabored breathing Cardio: regular rate, regular rhythm with S1-S2 Abdomen
--- NOTE | 2022-10-18 11:22 | PM.PNGS ---
Progress Note: A&P Assessment and Plan (1) Sacral decubitus ulcer: Code(s): L89.159 - Pressure ulcer of sacral region, unspecified stage Status: Acute Assessment and Plan: S/p surgical debridement yesterday and wound looks better today. Wound care evaluated the patient today for a possible wound vac. He is not a candidate for a wound vac due to the close proximity of the wound to the anal verge, therefore they did not feel they could get a wound vac dressing to seal/stay in place. Will switch to silver gel dressing changes tomorrow and continue to monitor the wound. During surgery the wound appeared necrotic, but not overtly infected, therefore we will stop the IV antibiotics. Continue frequent turning. (2) Non-small cell carcinoma of lung: Code(s): C34.90 - Malignant neoplasm of unspecified part of unspecified bronchus or lung Status: Acute (3) Aortic valve stenosis: Code(s): I35.0 - Nonrheumatic aortic (valve) stenosis Status: Acute (4) Coronary artery disease: Code(s): I25.10 - Atherosclerotic heart disease of [place] coronary artery without angina pectoris Status: Acute (5) COPD (chronic obstructive pulmonary disease): Qualifiers: COPD type: unspecified COPD Qualified Code(s): J44.9 - Chronic obstructive pulmonary disease, unspecified Code(s): J44.9 - Chronic obstructive pulmonary disease, unspecified Status: Chronic (6) ANIA (obstructive sleep apnea): Code(s): G47.33 - Obstructive sleep apnea (adult) (pediatric) Status: Chronic (7) Diabetes mellitus: Qualifiers: Diabetes mellitus type: type 2 Diabetes mellitus [facility] insulin use: without [facility] use Diabetes mellitus complication status: without complication Qualified Code(s): E11.9 - Type 2 diabetes mellitus without complications Code(s): E11.9 - Type 2 diabetes mellitus without complications Status: Chronic (8) PAF (paroxysmal atrial fibrillation): Code(s): I48.0 - Paroxysmal atrial fibrillation Status: Acute Plan I have discussed the patient's case and plan of care with Dr. Arango. Subjective Subjective Date/Time Seen: 10/18/22 11:22 Post Op day: 1 (Debridement sacral decubitus ulcer measuring 7 x 5.5 x 3 cm) Patient reports: afebrile Interval history: Patient seen and examined with no family at the bedside. He has some pain at the sacral wound as he did yesterday. He also still reports feeling weak. No new complaints or acute events overnight. Review of Systems Review of Systems: All systems reviewed & are unremarkable except as noted in HPI and below Exam Const: General: comfortable and no acute distress Orientation/consciousness: patient oriented x3 Skin: Other: Sacral decubitus ulcer looks better today with pink tissue noted, in the base of the wound there is some dusky tissue and dark areas from cautery from surgery, but no significant necrotic tissue or purulent drainage. No fould odor. Objective Data Vital Signs Vital Signs: Vital Signs - 24 hr 10/17/22 13:03 10/17/22 13:18 10/17/22 14:40 Temperature 97.5 F L 97.5 F L 97.8 F Pulse Rate 83 77 88 Respiratory Rate 14 16 23 H Blood Pressure 104/53 L 126/60 112/59 L Pulse Oximetry 94 97 100 Oxygen Delivery Room Air Simple Face Mask Oxygen Flow Rate 8 10/17/22 14:55 10/17/22 15:10 10/17/22 15:20 Temperature 97.6 F Pulse Rate 81 90 86 Respiratory Rate 19 20 20 Blood Pressure 140/68 120/57 L 122/56 L Pulse Oximetry 100 100 94 Oxygen Delivery Simple Face Mask Room Air Room Air Oxygen Flow Rate 8 10/17/22 15:35 10/17/22 15:50 10/17/22 15:55 Temperature 97.4 F L Pulse Rate 90 92 91 Respiratory Rate 20 20 20 Blood Pressure 120/75 102/60 108/62 Pulse Oximetry 95 93 93 Oxygen Delivery Room Air Room Air Room Air Oxygen Flow Rate 10/17/22 16:15 10/17/22 16:30 10/17/22 17:00 Temperature 97.4 F L 97.4 F L 97.0 F L Pulse Rate 91
[2022-10-18 11:59] LABS: Glucose Point of Care 125 mg/dl (65-105)
[2022-10-18] MEDS: ASPIRIN 81 MG ENTERIC TABLET PO (12:18)
[2022-10-18] MEDS: ARIPiprazole 2 MG TABLET 4 MG PO (12:18)
[2022-10-18] MEDS: buPROPion HCL XL (24 HR) 150 MG TABCR 300 MG PO (12:18)
[2022-10-18] MEDS: FUROSEMIDE 20 MG TABLET 60 MG PO ×2 (12:18→17:22)
[2022-10-18] MEDS: TAMSULOSIN HCL 0.4 MG CAPSULE PO (12:19)
[2022-10-18] MEDS: MIRTAZAPINE 15 MG TABLET PO (12:19)
[2022-10-18] MEDS: metFORMIN HCL 500 MG TABLET PO (12:19)
[2022-10-18] MEDS: SPIRONOLACTONE 25 MG TABLET PO (12:19)
[2022-10-18] MEDS: SILVERGEL (ELTA) 45 ML 1 APPLIC TOPICAL (12:20)
[2022-10-18] MEDS: ONDANSETRON HCL ODT 4 MG TABLET 8 MG PO (12:31)
--- NOTE | 2022-10-18 13:51 | WPDANESPN ---
Anes - Prog Note Post-Op Date/Time: 10/18/22 13:51 Vital Signs: Last Vital Signs Temp 36.0 C L 10/18/22 06:00 Pulse 82 10/18/22 06:00 Resp 14 10/18/22 06:00 BP 117/62 10/18/22 06:00 Pulse Ox 95 10/18/22 06:00 O2 Del Method Nasal Cannula 10/18/22 12:56 O2 Flow Rate 2 10/18/22 12:56 Pain Score (VAS): 0 I/O: Intake & Output 10/17/22 10/18/22 10/18/22 23:59 07:59 15:59 Intake Total 1070 500 120 Output Total 100 1100 Balance 970 -600 120 Laboratory Tests 10/18/22 06:05 10/18/22 06:05 10/17/22 10/17/22 10/18/22 15:04 21:33 06:05 WBC RBC Hgb Hct MCV MCH MCHC RDW Plt Count MPV Immature Gran % (Auto) Neut % (Auto) Lymph % (Auto) [place] % (Auto) Eos % (Auto) Baso % (Auto) Lymph # (Auto) [place] # (Auto) Eos # (Auto) Baso # (Auto) Abs Immat Gran (auto) Absolute Neuts (auto) Absolute Nucleated RBC Nucleated RBC % Sodium Potassium Chloride Carbon Dioxide Anion Gap BUN Creatinine Estim Creat Clear Calc Estimated GFR Glucose POC Capillary Glucose 92 148 H Hemoglobin A1c 5.3 Calcium Magnesium Total Bilirubin AST ALT Alkaline Phosphatase Total Protein Albumin 10/18/22 10/18/22 10/18/22 06:05 06:05 07:42 WBC 12.0 H RBC 3.17 L Hgb 10.1 L Hct 31.0 L MCV 97.8 MCH 31.9 MCHC 32.6 RDW 14.6 H Plt Count 229 MPV 9.5 Immature Gran % (Auto) 0.8 H Neut % (Auto) 84.2 H Lymph % (Auto) 4.7 L [place] % (Auto) 7.9 Eos % (Auto) 2.1 Baso % (Auto) 0.3 Lymph # (Auto) 0.57 L [place] # (Auto) 1.0 H Eos # (Auto) 0.3 Baso # (Auto) 0.0 Abs Immat Gran (auto) 0.10 H Absolute Neuts (auto) 10.1 H Absolute Nucleated RBC 0.0 Nucleated RBC % 0.0 Sodium 133 L Potassium 3.7 Chloride 96 L Carbon Dioxide 32 H Anion Gap 5 L BUN 16 Creatinine 1.10 Estim Creat Clear Calc 55 Estimated GFR > 60 Glucose 94 POC Capillary Glucose 97 Hemoglobin A1c Calcium 8.0 L Magnesium 1.9 Total Bilirubin 0.3 AST 20 ALT 12 Alkaline Phosphatase 53 Total Protein 6.0 L Albumin 2.8 L 10/18/22 11:55 WBC RBC Hgb Hct MCV MCH MCHC RDW Plt Count MPV Immature Gran % (Auto) Neut % (Auto) Lymph % (Auto) [place] % (Auto) Eos % (Auto) Baso % (Auto) Lymph # (Auto) [place] # (Auto) Eos # (Auto) Baso # (Auto) Abs Immat Gran (auto) Absolute Neuts (auto) Absolute Nucleated RBC Nucleated RBC % Sodium Potassium Chloride Carbon Dioxide Anion Gap BUN Creatinine Estim Creat Clear Calc Estimated GFR Glucose POC Capillary Glucose 125 H Hemoglobin A1c Calcium Magnesium Total Bilirubin AST ALT Alkaline Phosphatase Total Protein Albumin Microbiology 10/16/22 19:30 Blood Blood Culture - Preliminary 10/16/22 19:30 Blood Blood Culture - Preliminary Patient Feedback: Patient satisfied with anesthetic care.
[2022-10-18 14:00] VITALS: BP 114/59; PULSE 92; RESP 20; TEMP 36.3; O2SAT 97
[2022-10-18 16:33] LABS: Glucose Point of Care 129 mg/dl (65-105)
[2022-10-18] MEDS: rOPINIRole HCL 1 MG TABLET PO (20:41)
[2022-10-18 22:00] VITALS: BP 108/66; PULSE 89; RESP 16; TEMP 36.1; O2SAT 93
[2022-10-19] MEDS: LEVOTHYROXINE SODIUM 25 MCG TABLET PO (05:18)
[2022-10-19 06:06] VITALS: BP 97/58; PULSE 83; RESP 14; TEMP 36.1; O2SAT 91
[2022-10-19 06:37] LABS: Basophils Absolute Auto 0.1 K/mm3 (0.0-0.1); Basophils Percent Auto 0.5 % (0.2-1.2); Eosinophils Absolute Auto 0.4 K/mm3 (0-0.3); Eosinophils Percent Auto 3.3 % (0-4.4); Hemoglobin 10.6 g/dL (14.0-18.0); Immature Granulocyte Absolute 0.14 K/mm3 (0.00-0.031); Immature Granulocyte Percent A 1.2 % (0-0.5); Lymphocytes Absolute Auto 0.86 K/mm3 (0.9-3.2); Lymphocytes Percent Auto 7.6 % (18.3-44.2); Mean Corpuscular HGB Conc 32.1 g/dl (32-36); Mean Corpuscular Hemoglobin 31.4 pg (26-34); Mean Corpuscular Volume 97.6 fl (80-100); Mean Platelet Volume 9.7 fl (7.4-10.4); Monocytes Absolute Auto 0.9 K/mm3 (0.1-0.6); Monocytes Percent Auto 7.6 % (2.6-8.5); Neutrophils Percent Auto 79.8 % (45.5-73.1); Platelet Count Result 261 k/mm3 (150-375); Red Blood Count 3.38 M/mm3 (4.6-6.20); Red Cell Distribution Width 14.8 % (11.5-14.5); White Blood Count 11.3 K/mm3 (4.5-10.0)
[2022-10-19 06:57] LABS: Alanine Aminotransferase 12 U/L (6-50); Alkaline Phosphatase 54 U/L (38-126); Anion Gap 6 mmol/L (8-16); Aspartate Amino Transferase 23 U/L (17-59); Bilirubin,Total 0.5 mg/dL (0.2-1.3); Blood Urea Nitrogen 18 mg/dL (9-20); Calcium 8.2 mg/dL (8.4-10.2); Carbon Dioxide 34 mmol/L (22-30); Chloride 96 mmol/L (98-107); Estimated CRCL calculation 60 ml/min; Estimated Glomerular Filt Rate > 60; Glucose 96 mg/dL (65-110); Potassium 3.9 mmol/L (3.4-5.0); Sodium 136 mmol/L (137-145)
--- NOTE | 2022-10-19 08:00 | PM.IMPN ---
Progress Note: A&P Assessment and Plan (1) Sacral decubitus ulcer: Code(s): L89.159 - Pressure ulcer of sacral region, unspecified stage Status: Acute Assessment and Plan: Stage IV, dressing in place, clean dry and intact Wound care consulted General surgery consulted debridement performed 10/17/22 by General surgery antibiotics discontinued at this time, WBCs stable Post op care to general surgery Methadone for pain One dose of IV Morphine for better pain control (2) Non-small cell carcinoma of lung: Code(s): C34.90 - Malignant neoplasm of unspecified part of unspecified bronchus or lung Status: Acute Assessment and Plan: Patient's last chemo treatment was August 10. Patient is unable to continue treatment at this time Will continue to refer to outpatient follow-up. (3) ANIA (obstructive sleep apnea): Code(s): G47.33 - Obstructive sleep apnea (adult) (pediatric) Status: Chronic Assessment and Plan: Appears stable Apnea link not necessary (4) COPD (chronic obstructive pulmonary disease): Qualifiers: COPD type: unspecified COPD Qualified Code(s): J44.9 - Chronic obstructive pulmonary disease, unspecified Code(s): J44.9 - Chronic obstructive pulmonary disease, unspecified Status: Chronic Assessment and Plan: Stable not in acute exacerbation Continue albuterol Continue supplemental oxygen wean to maintain saturations greater than 90% Trend respiratory status Adjust therapy as indicated (5) Diabetic polyneuropathy associated with type 2 diabetes mellitus: Code(s): E11.42 - Type 2 diabetes mellitus with diabetic polyneuropathy Status: Acute Assessment and Plan: Glucose 96 A1c 5.3 Metformin on hold Insulin sliding scale Hypoglycemia protocol Accu-Cheks AC and HS Trend glucose Subjective Date/time seen: 10/19/22 08:00 Interval history: 10/19/22 0800 patient was lying in bed and stated he was sleeping. He denied any chest pain, shortness a breath, nausea, vomiting, diarrhea, constipation. He did state that he was in pain however he could not tell me what kind of pain he was then he could just tell me that it hurts on his backside. He was able to get up to the chair yesterday. Blood pressure seems to be a little low at 97/58 will give him IV fluids x1 bag. Nursing reports the patient is not feeding himself however talking to the patient he states that he can feed himself. Patient will need to get the chair for all meals. Did have a long discussion with son about future care. Did have son look at his wound. Patient was having some problems with urinating. Should be able to discharge if able to urinate with catheter. 10/18/22 0962 patient seems to be doing well. Wound does look healthy pink with slight bloody drainage. Tunneling is manageable. He denies any chest pain, shortness a breath, nausea, vomiting, diarrhea, constipation, fatigue. Patient did state that he had some weakness. Patient is eating and doing well. 10/17/22 1115 Patient is 76-year-old male with a past medical history of small cell carcinoma, AFib, COPD, CHF CAD, diabetes, hyperlipidemia who presented to the ED with complaints of worsening wound condition of the coccyx. Today patient stated that he is having a lot of pain in his coccyx area. His son was also present and stated that the patient takes methadone for pain. The patient was also complaining that he was not getting anything need however general surgery has came by and in its possibly taking the patient to surgery for a possible debridement. Currently patient denies any chest pain, shortness a breath, nausea, vomiting, diarrhea, constipation, weakness or fatigue. Patient did set of a catheter and states that he does urinate normally on his own. He also stated that he is very weak and
[2022-10-19 08:50] VITALS: BP 106/61; PULSE 88; RESP 20; TEMP 36.4; O2SAT 92
[2022-10-19] MEDS: methADONE HCL (*CRX) 5 MG TABLET PO ×2 (09:01→16:56)
[2022-10-19] MEDS: buPROPion HCL XL (24 HR) 150 MG TABCR 300 MG PO (09:07)
[2022-10-19] MEDS: TAMSULOSIN HCL 0.4 MG CAPSULE PO (09:07)
[2022-10-19] MEDS: MIRTAZAPINE 15 MG TABLET PO (09:07)
[2022-10-19] MEDS: ARIPiprazole 2 MG TABLET 4 MG PO (09:07)
[2022-10-19] MEDS: FUROSEMIDE 20 MG TABLET 60 MG PO ×2 (09:07→16:54)
[2022-10-19] MEDS: GABAPENTIN 100 MG CAPSULE PO ×2 (09:08→16:56)
[2022-10-19] MEDS: SPIRONOLACTONE 25 MG TABLET PO (09:08)
[2022-10-19] MEDS: ENOXAPARIN 40 MG/0.4 ML SYRINGE SUB-Q (09:08)
[2022-10-19] MEDS: ASPIRIN 81 MG ENTERIC TABLET PO (09:08)
[2022-10-19] MEDS: metFORMIN HCL 500 MG TABLET PO (09:08)
[2022-10-19] MEDS: SOD HYPOCHLORITE 1/4 STRENGTH 473 ML 1 APPLIC TOPICAL (09:09)
[2022-10-19] MEDS: SILVERGEL (ELTA) 45 ML 1 APPLIC TOPICAL (09:09)
[2022-10-19] MEDS: fentaNYL CITRATE INJ (*CRX) 100 MCG/2 ML VIAL 12.5 MCG IV PUSH (09:11)
--- NOTE | 2022-10-19 11:06 | PM.PNGS ---
Progress Note: A&P Assessment and Plan (1) Sacral decubitus ulcer: Code(s): L89.159 - Pressure ulcer of sacral region, unspecified stage Status: Acute Assessment and Plan: cont local wound care, no s/s active infection, cont pressure off loading measures Subjective Subjective Date/Time Seen: 10/19/22 11:06 no acute issues, feels ok Review of Systems Review of Systems: All systems reviewed & are unremarkable except as noted in HPI and below Exam Const: General: cooperative, comfortable, no acute distress and ill appearing Back/Spine/Pelvis: Other: sacral ulcer - dressing C/D/I Objective Data Vital Signs Vital Signs: Vital Signs - 24 hr 10/18/22 12:56 10/18/22 14:00 10/18/22 22:00 Temperature 36.3 C L 36.1 C L Pulse Rate 92 89 Respiratory Rate 20 16 Blood Pressure 114/59 L 108/66 Pulse Oximetry 97 93 Oxygen Delivery Nasal Cannula Oxygen Flow Rate 2 10/19/22 06:06 10/19/22 08:50 Temperature 36.1 C L 36.4 C L Pulse Rate 83 88 Respiratory Rate 14 20 Blood Pressure 97/58 L 106/61 Pulse Oximetry 91 92 Oxygen Delivery Oxygen Flow Rate Intake/Output Intake/Output: Intake & Output 10/16/22 10/17/22 10/18/22 10/19/22 23:59 23:59 23:59 23:59 Intake Total 1000 1445 1100 Output Total 1000 1050 1750 1350 Balance 0 395 -650 -1350 Meds/Results Medications: Active Medications Generic Name Dose Route Start Last Admin Trade Name Freq PRN Reason Stop Dose Admin Acetaminophen 650 mg 10/16/22 22:03 10/17/22 08:00 Acetaminophen 325 Mg Tablet PO 650 mg Q4H PRN Administration Mild Pain (1-3) or Fever Albuterol 1 puff 10/17/22 08:17 Albuterol Sulfate (*Sp) Aerosol 1 Puff INHALATION Q4-6H PRN Shortness Of Breath Aripiprazole 4 mg 10/17/22 09:00 10/19/22 09:07 Aripiprazole 2 Mg Tablet PO 4 mg DAILY JILLIAN Administration Aspirin 81 mg 10/17/22 09:00 10/19/22 09:08 Aspirin 81 Mg Enteric Tablet PO 81 mg DAILY JILLIAN Administration Bupropion HCl 300 mg 10/17/22 09:00 10/19/22 09:07 Bupropion Hcl Xl (24 Hr) 150 Mg Tabcr PO 300 mg DAILY JILLIAN Administration Dextrose 12.5 gm 10/17/22 11:54 Dextrose 50% 25 Gm/50 Ml Syringe IV PUSH PRN PRN Hypoglycemia Protocol Enoxaparin Sodium 40 mg 10/19/22 09:00 10/19/22 09:08 Enoxaparin 40 Mg/0.4 Ml Syringe SUB-Q 40 mg DAILY JILLIAN Administration Furosemide 60 mg 10/17/22 09:00 10/19/22 09:07 Furosemide 20 Mg Tablet PO 60 mg BID JILLIAN Administration Gabapentin 100 mg 10/17/22 09:00 10/19/22 09:08 Gabapentin 100 Mg Capsule PO 100 mg TID JILLIAN Administration Glucagon 1 mg 10/17/22 11:54 Glucagon For Inj 1 Mg Vial IM PRN PRN Hypoglycemia Protocol Glucose 15 gm 10/17/22 11:54 Glucose Oral Gel 15 Gm Of Glucse In 37.5 Gm Tube PO PRN PRN Hypoglycemia Protocol Dextrose 1,000 mls @ 100 mls/hr 10/17/22 11:54 Dextrose 5% 1,000 Ml IVPB PRN PRN Hypoglycemia Protocol Insulin Aspart 3 - 6 units 10/17/22 12:00 10/18/22 17:23 Insulin Aspart (*Bkc) 100 Units/Ml SUB-Q Not Given TIDWM JILLIAN Protocol Levothyroxine Sodium 25 mcg 10/17/22 08:30 10/19/22 05:18 Levothyroxine Sodium 25 Mcg Tablet PO 25 mcg DAILY@0630 JILLIAN Administration Metformin HCl 500 mg 10/18/22 08:00 10/19/22 09:08 Metformin Hcl 500 Mg Tablet PO 500 mg DAILY@0800 JILLIAN Administration Methadone HCl 5 mg 10/17/22 09:00 10/19/22 09:01 Methadone Hcl (*Crx) 5 Mg Tablet PO 5 mg TID JILLIAN Administration Mirtazapine 15 mg 10/17/22 09:00 10/19/22 09:07 Mirtazapine 15 Mg Tablet PO 15 mg DAILY JILLIAN Administration Ondansetron HCl 4 mg 10/16/22 22:03 Ondansetron Inj 4 Mg/2 Ml Vial IV PUSH Q4H PRN Nausea Ondansetron HCl 8 mg 10/17/22 08:25 10/18/22 12:31 Ondansetron Hcl Odt 4 Mg Tablet PO 8 mg Q8H PRN Administration Nausea Polyethylene Glyc
[2022-10-19 11:52] LABS: Glucose Point of Care 116 mg/dl (65-105)
--- NOTE | 2022-10-19 12:26 | PCNFU ---
Nutrition Follow-Up Complete: Increased protein energy needs related to pressure injury as evidenced by wound report of unstageable pressure injury to sacrum. Goal: Adequate PO intake at least 75% meals Pt current nutrition is Consistent carb diabetic diet. Average intakes around 50%. Nutrition recommendation: Glucerna shakes BID. 220 kcals, 10 g protein each. Sherwin BID for wound healin kcals and 2.5 g protein each. Last recorded weight is 95.2 kg. Bowel Motility: No BMs charted Labs Reviewed: Hgb 10.6, Hct 33, Alb 3.0, Na 136 Meds Noted: Lasix, spironolactone, levothyroxine, Remeron, methadone, miralax Skin: Unstageable / stage 4 to sacrum. Had debridement yesterday Additional Notes: Appetite is fair. History of lung cancer with chemo. Has some nausea at times. Discharge plan is to detention/rehab. Likes glucerna. Monitoring diet advancement; wound healing; labs, intakes Follow up in 3 days
[2022-10-19 14:00] VITALS: BP 119/66; PULSE 92; RESP 20; TEMP 36.5; O2SAT 97
[2022-10-19] MEDS: FUROSEMIDE INJ 40 MG/4 ML VIAL 10 MG IV PUSH (16:55)
[2022-10-19 18:00] LABS: Glucose Point of Care 99 mg/dl (65-105)
[2022-10-19] MEDS: rOPINIRole HCL 1 MG TABLET PO (20:24)
[2022-10-19 20:48] LABS: Glucose Point of Care 103 mg/dl (65-105)
[2022-10-19 22:00] VITALS: BP 125/63; PULSE 85; RESP 13; TEMP 36.7; O2SAT 96
[2022-10-20] MEDS: LEVOTHYROXINE SODIUM 25 MCG TABLET PO (05:40)
[2022-10-20 05:46] VITALS: BP 114/87; PULSE 78; RESP 14; TEMP 36.4; O2SAT 95
[2022-10-20 08:00] LABS: Glucose Point of Care 103 mg/dl (65-105)
--- NOTE | 2022-10-20 08:15 | PM.DS ---
DS: Admitting Diagnosis Discharge Date 10/20/2215 Admitting Diagnosis Debridement of sacral ulcer DS: Discharge Diagnosis Discharge Diagnosis (1) Sacral decubitus ulcer: Code(s): L89.159 - Pressure ulcer of sacral region, unspecified stage Status: Acute Assessment and Plan: Stage IV, dressing in place, clean dry and intact Wound care consulted General surgery consulted debridement performed 10/17/22 by General surgery antibiotics discontinued at this time, WBCs stable Post op care to general surgery Methadone for pain One dose of IV Morphine for better pain control (2) Non-small cell carcinoma of lung: Code(s): C34.90 - Malignant neoplasm of unspecified part of unspecified bronchus or lung Status: Acute Assessment and Plan: Patient's last chemo treatment was August 10. Patient is unable to continue treatment at this time Will continue to refer to outpatient follow-up. (3) ANIA (obstructive sleep apnea): Code(s): G47.33 - Obstructive sleep apnea (adult) (pediatric) Status: Chronic Assessment and Plan: Appears stable Apnea link not necessary (4) COPD (chronic obstructive pulmonary disease): Qualifiers: COPD type: unspecified COPD Qualified Code(s): J44.9 - Chronic obstructive pulmonary disease, unspecified Code(s): J44.9 - Chronic obstructive pulmonary disease, unspecified Status: Chronic Assessment and Plan: Stable not in acute exacerbation Continue albuterol Continue supplemental oxygen wean to maintain saturations greater than 90% Trend respiratory status Adjust therapy as indicated (5) Diabetic polyneuropathy associated with type 2 diabetes mellitus: Code(s): E11.42 - Type 2 diabetes mellitus with diabetic polyneuropathy Status: Acute Assessment and Plan: Glucose 96 A1c 5.3 Metformin on hold Insulin sliding scale Hypoglycemia protocol Accu-Cheks AC and HS Trend glucose DS: Summary Hospital Course Hospital Course: patient is a 76-year-old male with a past medical history of diabetes, small cell carcinoma, AFib, COPD, CHF, CAD, diabetes who presented to the ED with complaints of worsening wound condition of the coccyx. General surgery was consulted and the patient went for surgical debridement. Majority of the tissue was removed. Patient was started on IV antibiotics due to elevated white count however had been discontinued and white count has remained stable at 11.3 today. Patient has been on 2 L nasal cannula and oxygenation has been stable. Patient has been working with PT and OT and has been able to get up to the chair with support. patient has been doing well and is interactive. He denies any chest pain, shortness a breath, nausea, vomiting, diarrhea, constipation, weakness or fatigue. Talked to General surgery was okay with discharge and wants him to follow-up in 2 weeks. Patient will also need daily dressing changes. Patient is stable for discharge upon labs and vital signs. Patient will be going to SNF for rehab. Reviewed the case with the son. He verbalized understanding. Also talked to Dr. Maher about what to give him for pain since unable to prescribe methadone. Patient was also noted to have urinary retention and had to be straight cathed. However has been able to urinate. Oxygen saturation have been stable and oxygen has been removed at this time. Status at Discharge Functional status at discharge: uses cane/walker Overall status at discharge: patient is progressing back to baseline Time Spent with Patient Time attestation: Total time spent providing and/or coordinating discharge services: 38 minutes Time spent: Greater than 30 minutes Specific discharge activities: Diagnostic testing, chart review, developing a treatment plan, education, care coordination documentation, physical exam, resul
[2022-10-20] MEDS: methADONE HCL (*CRX) 5 MG TABLET PO ×2 (10:15→13:37)
[2022-10-20] MEDS: FUROSEMIDE 20 MG TABLET 60 MG PO (10:16)
[2022-10-20] MEDS: ASPIRIN 81 MG ENTERIC TABLET PO (10:16)
[2022-10-20] MEDS: ENOXAPARIN 40 MG/0.4 ML SYRINGE SUB-Q (10:17)
[2022-10-20] MEDS: buPROPion HCL XL (24 HR) 150 MG TABCR 300 MG PO (10:17)
[2022-10-20] MEDS: SPIRONOLACTONE 25 MG TABLET PO (10:17)
[2022-10-20] MEDS: ARIPiprazole 2 MG TABLET 4 MG PO (10:17)
[2022-10-20] MEDS: GABAPENTIN 100 MG CAPSULE PO ×2 (10:17→13:37)
[2022-10-20] MEDS: SILVERGEL (ELTA) 45 ML 1 APPLIC TOPICAL (10:17)
[2022-10-20] MEDS: TAMSULOSIN HCL 0.4 MG CAPSULE PO (10:17)
[2022-10-20] MEDS: metFORMIN HCL 500 MG TABLET PO (10:18)
[2022-10-20] MEDS: MIRTAZAPINE 15 MG TABLET PO (10:18)
[2022-10-20 11:25] LABS: Glucose Point of Care 161 mg/dl (65-105)
[2022-10-20 14:00] VITALS: BP 116/61; PULSE 88; RESP 15; TEMP 36.1; O2SAT 93
[2022-10-20 14:36] LABS: EDCOVIDSCREEN Negative (Negative)
== END 2022-10-20 14:30 | DRG 580 ==
LOC: ANHED 10-17 01:54 → ANH3MEDSUR 10-17 02:59
PROVIDERS: Internal Medicine; Surgery; Admitting Provider Internal Medicine; Emergency Provider Emergency Medicine; PCP Internal Medicine; Visit Provider Nurse Practitioner
PROC: 0KBP0ZZ Excision of Left Hip Muscle, Open Approach (ICD-10-PCS; principal; 2022-10-17 16:00)
DX: L89.154 Pressure ulcer of sacral region, stage 4 (principal); C34.91 Malignant neoplasm of unspecified part of right bronchus or lung; I48.20 Chronic atrial fibrillation, unspecified; L89.322 Pressure ulcer of left buttock, stage 2; L89.312 Pressure ulcer of right buttock, stage 2; I11.0 Hypertensive heart disease with heart failure; I50.9 Heart failure, unspecified; I25.10 Atherosclerotic heart disease of native coronary artery without angina pectoris; I35.0 Nonrheumatic aortic (valve) stenosis; J44.9 Chronic obstructive pulmonary disease, unspecified; E11.42 Type 2 diabetes mellitus with diabetic polyneuropathy; E78.2 Mixed hyperlipidemia; E66.9 Obesity, unspecified; R33.9 Retention of urine, unspecified; M79.7 Fibromyalgia; M19.90 Unspecified osteoarthritis, unspecified site; G25.81 Restless legs syndrome; G47.33 Obstructive sleep apnea (adult) (pediatric); F32.A Depression, unspecified; I25.2 Old myocardial infarction; Z20.822 Contact with and (suspected) exposure to COVID-19; Z66 Do not resuscitate; Z79.82 Long term (current) use of aspirin; Z87.891 Personal history of nicotine dependence; Z92.3 Personal history of irradiation
CPT/HCPCS: 36415; 70450; 71045; 74177; 80048; 80053; 81003; 82948; 83036; 83605; 83735; 83880; 85025; 85652; 86140; 87040; 87426; 87637; 93005; 96360; 97161; 97165; 97530; 99212; 99285; A9270; C9803; G0463; J0131; J0690; J1650; J1940; J1956; J2405; J2704; J3010; J7030; J7120; Q9967

== ENCOUNTER 2022-11-16 09:24 | Outpatient (CLI) | payer OTHER, MEDICAID, SELFPAY ==
--- NOTE | ~2022-11-16 | CT_ITS ---
Clinical Indication: Right lung cancer CT Scan of the Chest with Contrast: Technique: Contiguous sections were acquired throughout the chest after intravenous administration of 75 cc of Omnipaque 350. Dose reduction technique was used on this scan by utilizing automated exposu re control and iterative reconstruction technique. The dose-length product (DLP) was 436.96 mGy-cm. COMPARISON: 01/04/2022 Findings: There is no evidence of any significant mediastinal, hilar or axillary lymphadenopathy. There is no f illing defect in the pulmonary arterial tree to suggest pulmonary embolus. There is no evidence of ao rtic dissection or aneurysm. There is no evidence of pleural or pericardial effusion. Calcified right pleural plaque noted. Spiculated right upper lobe/perihilar mass is decreased in size, now measuring 2.1 x 1.2 cm in diamet er. Left lung is clear. Images through the upper abdomen reveal no abnormalities. Impression: Right upper lobe spiculated mass is decreased in size, now measuring 2.1 x 2 cm, presumably due to pa rtial response to interval therapy. Calcified right pleural plaque. Reviewed, dictated and finalized at location M. X RAY NURSE Impression: Right upper lobe spiculated mass is decreased in size, now measuring 2.1 x 2 cm , presumably due to partial response to interval therapy. Calcified right pleural plaque.
== END 2022-11-16 09:25 | disposition home or self-care (01) ==
PROVIDERS: PCP Internal Medicine; Visit Provider Internal Medicine Hematology & Oncology
DX: C34.11 Malignant neoplasm of upper lobe, right bronchus or lung (principal)
CPT/HCPCS: 71260; Q9967

== ENCOUNTER 2023-02-22 08:14 | Outpatient (CLI) | payer MEDICARE, MEDICAID, SELFPAY ==
--- NOTE | ~2023-02-22 | CT_ITS ---
EXAMINATION:CT diagnostic chest w con DATE: 02/22/2023 09:02 INDICATION: Malignant neoplasm of upper lobe of right lung. TECHNIQUE: Computed tomography (CT) of the chest was performed with 75 mL Omnipaque 350 intravenous c ontrast. Automated exposure control and iterative reconstruction technique were employed. The dose-le ngth product (DLP) was 461.51 mGy-cm. COMPARISON: Chest CT 11/16/2022, 01/04/22 FINDINGS: There is a 2.5 x 1.4 cm nodule in the perihilar right upper lobe, stable from 2.4 x 1.5 cm on 11/16/2022. There are pleural calcifications on the right. There is mild atelectasis bilaterally. Calcified right lung nodules and calcified right hilar lymph nodes are consistent with old granulomat ous disease. No pleural effusion. The heart size is normal. There are coronary artery calcifications. No pericardial effusion. There is bilateral gynecomastia. There is a right internal jugular port wit h tip at superior cavoatrial junction. There is cortical thinning of the kidneys. There are cysts in the kidneys measuring up to 7 mm on the right. There is moderate thoracic spondylosis. IMPRESSION: 1. Stable right lung upper lobe nodule, consistent with primary bronchogenic carcinoma. Reviewed, dictated and finalized at location A. IMPRESSION: 1. Stable right lung upper lobe nodule, consistent with primary bronchogenic ca rcinoma.
[2023-02-22 08:49] LABS: Estimated Glomerular Filt Rate 53
== END 2023-02-22 08:15 | disposition home or self-care (01) ==
PROVIDERS: PCP Internal Medicine; Visit Provider Internal Medicine Hematology & Oncology
DX: C34.11 Malignant neoplasm of upper lobe, right bronchus or lung (principal)
CPT/HCPCS: 71260; Q9967

== ENCOUNTER 2023-03-22 21:50 | Inpatient (IN) | payer MEDICARE, MEDICAID, SELFPAY ==
[2023-03-22] VITALS (9 sets, daily range): BP systolic 98–120; BP diastolic 61–82; PULSE 117–174; RESP 18–36; TEMP 37.4; O2SAT 82–92
--- NOTE | ~2023-03-22 | CT_ITS ---
EXAMINATION:CT diagnostic chest wo con DATE: 03/23/2023 13:57 INDICATION: Shortness of breath. TECHNIQUE: Computed tomography (CT) of the chest was performed without intravenous contrast. Automate d exposure control and iterative reconstruction technique were employed. The dose-length product (DLP ) was 576.66 mGy-cm. COMPARISON: Chest CT 02/22/2023 FINDINGS: There is a 2.5 x 1.4 cm nodule in perihilar right upper lobe, stable from 02/22/2023. There a re centrilobular nodules and airspace opacities in the lower lobes and left upper lobe, consistent wi th pneumonia. No pleural effusion. There are calcified pleural plaques on the right. There is a right internal jugular port with tip at superior cavoatrial junction. The heart size is normal. There are coronary artery calcifications. There are calcifications of aortic valve. No pericardial effusion. Th ere is bilateral gynecomastia. There is moderate thoracic spondylosis and severe lumbar spondylosis. IMPRESSION: 1. Centrilobular nodules and airspace opacities in the lower lobes and left upper lobe, consistent wi th pneumonia. 2. Small left pleural effusion. 3. Stable right upper lobe pulmonary nodule, consistent with primary bronchogenic carcinoma. Reviewed, dictated and finalized at location A. IMPRESSION: 1. Centrilobular nodules and airspace opacities in the lower lobes and left upp er lobe, consistent with pneumonia. 2. Small left pleural effusion. 3. Stable right upper lobe pulmonary nodule, consistent with primary bronchogen ic carcinoma.
--- NOTE | ~2023-03-22 | XR_ITS ---
Portable chest x-ray Comparison: 03/22/2023 Clinical History: Pneumonia Findings: Right-sided Mediport is unchanged. There is improved bibasilar haziness as compared to manuel or exam. Cardiomediastinal silhouette is stable. Bones and soft tissues are unremarkable. Impression: Mild bibasilar haziness, improved from prior exam. Findings are consistent with improving pulmonary e eric versus infection. Correlate currently. Stable Mediport. Reviewed, dictated and finalized at location M. Impression: Mild bibasilar haziness, improved from prior exam. Findings are consistent with improving pulmonary edema versus infection. Correlate currently. Stable Mediport.
--- NOTE | ~2023-03-22 | XR_ITS ---
EXAMINATION: XR chest 1V portable Exam Date/Time: 03/22/2023 22:39 CDT HISTORY: shortness of breath Comparison: 10/16/2022; CT chest 02/22/2023. RESULT: Lines, tubes, and devices: Right chest port terminating in the distal SVC. Lungs and pleura: Patchy bilateral airspace disease. Right costophrenic angle blunting. Known right upper lobe nodule is partially obscured. Cardiomediastinal silhouette: Stable. Other: No acute osseous finding. Dilated stomach and/or bowel in the upper abdomen. IMPRESSION: Patchy bilateral airspace disease may represent edema or pneumonia. Small right pleural effusion. Dil ated stomach and/or bowel in the upper abdomen. Reviewed, dictated and finalized at location K. IMPRESSION: Patchy bilateral airspace disease may represent edema or pneumonia. Small right pleural effusion. Dilated stomach and/or bowel in the upper abdomen.
--- NOTE | ~2023-03-22 | XR_ITS ---
EXAMINATION: XR abdomen/kub 1V DATE: 03/28/2023 13:58 INDICATION: Constipation. TECHNIQUE: A supine view of the abdomen on 2 radiographs was obtained. COMPARISON: CT abdomen and pelvis 10/16/2022 FINDINGS: There is gaseous distention of the stomach. There are dilated loops of small bowel. The col on is normal in caliber. There is a small volume of stool in the colon. IMPRESSION: 1. Dilated small bowel, consistent with adynamic ileus versus small bowel obstruction. 2. Gaseous distention of the stomach. Reviewed, dictated and finalized at location E. IMPRESSION: 1. Dilated small bowel, consistent with adynamic ileus versus small bowel obstr uction. 2. Gaseous distention of the stomach.
--- NOTE | 2023-03-22 21:58 | ECG_ITS ---
Measurements Intervals [place] Rate: 123 P: GA: 0 QRS: 58 QRSD: 113 T: 226 QT: 302 QTc: 433 Interpretive Statements ATRIAL FLUTTER/TACHYCARDIA WITH RAPID VENTRICULAR RESPONSE VENTRICULAR PREMATURE COMPLEX INTRAVENTRICULAR CONDUCTION DELAY ST-T WAVE ABNORMALITY IN ANTEROLAT/INF LEADS- CONSIDER ISCHEMIA BASELINE WANDER- AVR, AVL, AVF, V3-V6 ABNORMAL ECG COMPARED TO ECG 10/16/2022 21:36:58 ATRIAL FLUTTER NOW PRESENT INTRAVENTRICULAR CONDUCTION DELAY NOW PRESENT ST-T WAVE ABNORMALITY NOW PRESENT Electronically Signed On 03-23-2023 8:43:13 CDT by Trell Walters D.O.
[2023-03-22] MEDS: FUROSEMIDE INJ 40 MG/4 ML VIAL IV PUSH (22:05)
[2023-03-22] MEDS: LEVALBUTEROL NEB 1.25 MG/3 ML INHALATION (22:11)
[2023-03-22] MEDS: IPRATROPIUM BR 0.02% INH SOLN 0.5 MG/2.5 ML VIAL INHALATION (22:11)
--- NOTE | 2023-03-22 22:11 | PC.NURSE ---
Patient was on 4 L/min via nasal cannula at 77%. Patient was put on CPAP by EMS and SPO2 was brought up to 77%.
[2023-03-22 22:19] LABS: Basophils Percent Auto 0.3 % (0.2-1.2); Eosinophils Percent Auto 0.1 % (0-4.4); Hematocrit 55.9 % (42.0-52.0); Hemoglobin 18.3 g/dL (14.0-18.0); Immature Granulocyte Absolute 0.03 K/mm3 (0.00-0.031); Immature Granulocyte Percent A 0.3 % (0-0.5); Lymphocytes Absolute Auto 0.63 K/mm3 (0.9-3.2); Lymphocytes Percent Auto 5.4 % (18.3-44.2); Mean Corpuscular HGB Conc 32.7 g/dl (32-36); Mean Corpuscular Hemoglobin 31.2 pg (26-34); Mean Corpuscular Volume 95.2 fl (80-100); Mean Platelet Volume 10.2 fl (7.4-10.4); Monocytes Absolute Auto 0.6 K/mm3 (0.1-0.6); Monocytes Percent Auto 5.5 % (2.6-8.5); Neutrophils Absolute Auto 10.3 K/mm3 (1.3-6.7); Neutrophils Percent Auto 88.4 % (45.5-73.1); Platelet Count Result 190 k/mm3 (150-375); Red Blood Count 5.87 M/mm3 (4.6-6.20); Red Cell Distribution Width 14.6 % (11.5-14.5); White Blood Count 11.6 K/mm3 (4.5-10.0)
[2023-03-22] MEDS: dilTIAZem HCl INJ 25 MG/5 ML VIAL 20 MG IV PUSH (22:20)
[2023-03-22 22:28] LABS: Magnesium 8.8 mg/dL (1.6-2.3)
[2023-03-22 22:28] LABS: Lactic Acid Reflex 3.1 mmol/L (0.7-2.0)
[2023-03-22 22:30] LABS: INR 1.2; Prothrombin Time 15.8 Seconds (11.1-14.7)
[2023-03-22 22:31] LABS: Partial Thromboplastin Time 35.9 SECONDS (22.3-36.8)
[2023-03-22 22:32] LABS: Alanine Aminotransferase 20 U/L (6-50); Albumin Level 4.1 g/dL (3.5-5.1); Alkaline Phosphatase 131 U/L (38-126); Anion Gap 14 mmol/L (8-16); Aspartate Amino Transferase 20 U/L (17-59); Bilirubin,Total 0.7 mg/dL (0.2-1.3); Blood Urea Nitrogen 37 mg/dL (9-20); Calcium 9.2 mg/dL (8.4-10.2); Carbon Dioxide 22 mmol/L (22-30); Chloride 101 mmol/L (98-107); Estimated Glomerular Filt Rate 45; Glucose 205 mg/dL (65-110); Potassium 3.4 mmol/L (3.4-5.0); Sodium 137 mmol/L (137-145)
--- NOTE | 2023-03-22 22:32 | PC.NURSE ---
Son is at bedside now. Son is POA.
--- NOTE | 2023-03-22 22:33 | PC.NURSE ---
Per Dr. Muñiz push the 20mg Diltazem and wait till blood pressure rises to start Diltazem drip.
[2023-03-22 22:40] LABS: Alveolar/Arterial O2 Gradient 591.8 mmHg; Base Excess ABG -6.9 mEq/l (+/-2.0); Fractional Inspired Oxygen 100 %; HCO3 ABG 21.8 mEq/l (22.0-26.0); Oxygen Saturation ABG 89.1 % (95.0-100.0); Oxyhemoglobin 89.9 % THb (90.0-100.0); PCO2 ABG 54.5 mmHg (35.0-45.0); PO2 ABG 66.7 mmHg (80.0-100.0); PO2 FiO2 Ratio Arterial Blood 0.67 %; Total Hemoglobin 19.8 g/dL (12.0-18.0)
[2023-03-22 22:41] LABS: NT Pro B Type Natriuretic Pept 282 pg/mL (19.9-100); Troponin I 0.015 ng/mL (0.000-0.034)
--- NOTE | 2023-03-22 22:43 | PC.NURSE ---
Patient comes in with a corral catheter. Dark melvin urine is present in the corral bag.
[2023-03-22 22:48] LABS: Device BIPAP; Modified Allen's Test Pass; Site Drawn RIGHT RADIAL; pH ABG 7.219 (7.350-7.450)
[2023-03-22 22:49] LABS: Expiratory Pressure 6 cmH2O; Inspiratory Pressure 16 cmH2O
[2023-03-22 22:59] LABS: Appearance Urine Cloudy (Clear); Bilirubin Urine 1+ (Negative); Blood Urine Trace (Negative); Color Urine Dark Yellow (Yellow); Glucose Urine UA Negative (Negative); Ketones Urine Trace mg/dL (Negative); Leukocyte Esterase Ur 3+ LEU/UL (Negative); Nitrate Urine Positive (Negative); Protein Urine 2+ mg/dL (Negative); pH Urine >=9.0 (5.0-9.0)
[2023-03-22 23:27] LABS: WBC Clumps Urine Present /HPF
--- NOTE | 2023-03-22 23:27 | ED.GENADULT ---
HPI - General Adult General Chief complaint: Shortness of Breath/Dyspnea Stated complaint: RESPIRATORY DISTRESS Time Seen by Provider: 03/22/23 21:57 History of Present Illness HPI narrative: Patient is a 77-year-old gentleman who presents emergency department with chief complaint of shortness of breath. Patient has history of congestive heart failure and COPD presents the emergency department with increased shortness of breath. Patient is a resident of a local nursing facility and they noticed that he was requiring additional oxygen and was hypoxic. EMS started the patient on CPAP in the field and the patient was still having issues with saturation. Related Data Home Medications Medication Instructions Recorded Confirmed aspirin 81 mg tablet,delayed 81 mg PO DAILY 11/06/19 10/17/22 release ropinirole 1 mg tablet 1 mg PO HS 12/18/19 10/17/22 bupropion HCl 300 mg 24 hr tablet, 300 mg PO DAILY 03/09/21 10/17/22 extended release spironolactone 25 mg tablet 25 mg PO DAILY 03/09/21 10/17/22 tamsulosin 0.4 mg capsule 0.4 mg PO DAILY 02/26/22 10/17/22 albuterol sulfate 90 mcg/actuation 1 puff inhalation Q4-6H PRN 07/27/22 10/17/22 aerosol inhaler Shortness Of Breath furosemide 40 mg tablet 60 mg PO BID 08/10/22 10/17/22 levothyroxine 50 mcg tablet 25 mcg PO DAILY 08/10/22 10/17/22 ondansetron 8 mg disintegrating 8 mg PO Q8H PRN Nausea 08/10/22 10/17/22 tablet Allergies Allergy/AdvReac Type Severity Reaction Status Date / Time Penicillins Allergy Unknown SHORTNESS Verified 10/17/22 13:17 OF BREATH Review of Systems Review of Systems: A 10 system review of systems was completed on the patient and is negative except for what is stated in the HPI. Nursing and ancillary documentation was reviewed. [facility] Past Medical History Medical History Aortic valve stenosis Arthritis (03/26/19) Atrial fibrillation with controlled ventricular rate Chronic congestive heart failure COPD (chronic obstructive pulmonary disease) Coronary artery disease 2019 - nonSTEMI - left heart cath showed mild coronary artery disease with severe LV dysfunction EF 20% with possible underlying nonischemic cardiomyopathy, no PCI Depression Diabetes mellitus Diabetic polyneuropathy associated with type 2 diabetes mellitus Fibromyalgia Mixed hyperlipidemia Non-small cell carcinoma of lung ANIA (obstructive sleep apnea) Restless legs syndrome Sacral decubitus ulcer Surgical History Surgical History History of hernia repair Umbilical hernia repair. Bilateral inguinal hernia repairs. Family History Family History Sibling Patient's sister is in good health Hypertension Family history of heart disease in male family member before age 55 Mother Family history of heart disease in male family member before age 55 Patient's mother is Family history of congestive heart failure, Onset Age: 70 Father Patient's father is Acute myocardial infarction, Onset Age: 62 Grandparent Depression Family history of arthritis Family history of malignant neoplasm of breast Family history of heart disease in male family member before age 55 Other Cerebrovascular accident Family history of cardiovascular disease Social History Social History Social History: 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 He is a former smoker. The patient is retired. The patient he tells me that he wants to be a DNR. However he is listed as a full code at this time and I am not sure if he has durable power trial attorney. The patient appeared to be alert enough to make that decision however I believe there needs to be further discuss
[2023-03-22 23:29] LABS: Calcium Oxalate Crystals Urine Many /hpf; Squamous Epithelial Cell Urine None seen /hpf (Few); Triple Phosphate Crystal Urine Present /hpf
--- NOTE | 2023-03-22 23:31 | PM.IMHP ---
H&P: HPI History of Present Illness Date/Time: 03/22/23 23:31 Chief Complaint: Shortness of breath Narrative: This is a 77-year-old male resides at local [facility] patient with history of atrial fibrillation, COPD, congestive heart failure, non-small cell carcinoma of the lung, benign prostatic hyperplasia, peripheral diabetic neuropathy, type 2 diabetes mellitus. Patient was brought to the emergency room via EMS after patient found with significant respiratory distress and low oxygen saturation placed on CPAP on the field. Most of the history has been obtained upon reviewing medical records as patient is on BiPAP on unable to give any history. Preliminary workup was significant for ABG showed a pH of 7.2 pCO2 of 50 PO2 of 60 lactic acid of 3 urinalysis showed numerous WBCs present, chest x-ray was reported as: EXAMINATION:? XR chest 1V portable Exam Date/Time:? 03/22/2023 22:39 CDT HISTORY: shortness of breath ? Comparison:? 10/16/2022; CT chest 02/22/2023. RESULT: Lines, tubes, and devices:? Right chest port terminating in the distal SVC. Lungs and pleura:? Patchy bilateral airspace disease. Right costophrenic angle blunting. Known right upper lobe nodule is partially obscured. Cardiomediastinal silhouette:? Stable. Other:? No acute osseous finding. Dilated stomach and/or bowel in the upper abdomen. ? IMPRESSION: Patchy bilateral airspace disease may represent edema or pneumonia. Small right pleural effusion. Dilated stomach and/or bowel in the upper abdomen. Patient has been admitted for further evaluation management and treatment. Review of Systems Review of Systems: ROS unobtainable: Yes unobtainable due to medical condition (Respiratory distress on BiPAP) [facility] Past Medical History Medical History Aortic valve stenosis Arthritis (03/26/19) Atrial fibrillation with controlled ventricular rate Chronic congestive heart failure COPD (chronic obstructive pulmonary disease) Coronary artery disease 2019 - nonSTEMI - left heart cath showed mild coronary artery disease with severe LV dysfunction EF 20% with possible underlying nonischemic cardiomyopathy, no PCI Depression Diabetes mellitus Diabetic polyneuropathy associated with type 2 diabetes mellitus Fibromyalgia Mixed hyperlipidemia Non-small cell carcinoma of lung ANIA (obstructive sleep apnea) Restless legs syndrome Sacral decubitus ulcer Surgical History Surgical History History of hernia repair Umbilical hernia repair. Bilateral inguinal hernia repairs. Family History Family History Sibling Patient's sister is in good health Hypertension Family history of heart disease in male family member before age 55 Mother Family history of heart disease in male family member before age 55 Patient's mother is Family history of congestive heart failure, Onset Age: 70 Father Patient's father is Acute myocardial infarction, Onset Age: 62 Grandparent Depression Family history of arthritis Family history of malignant neoplasm of breast Family history of heart disease in male family member before age 55 Other Cerebrovascular accident Family history of cardiovascular disease Social History Social History Social History: 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 He is a former smoker. The patient is retired. The patient he tells me that he wants to be a DNR. However he is listed as a full code at this time and I am not sure if he has durable power immigration attorney. The patient appeared to be alert enough to make that decision however I believe there needs to be further discussion with his family members. Code status full co
[2023-03-22 23:32] LABS: Add Urine Microscopic? YES; WBC Urine 31-50 /hpf
[2023-03-23] VITALS (28 sets, daily range): BP systolic 86–124; BP diastolic 56–72; PULSE 96–119; RESP 18–33; TEMP 36.1–36.9; O2SAT 88–97; BMI 24.5
--- NOTE | 2023-03-23 | ECHO_ITS ---
Patient Info Name: Farhan Armstrong Age: 77 years : 1945 Gender: Male Ht: 68 in Wt: 166 lbs BSA: 1.91 m2 HR: 97 bpm BP: 102 / 69 mmHg Technical Quality: Poor Exam Date: 03/23/2023 12:46 PM Exam Location: [facility] Patient Status: Inpatient Admit Date: 03/22/2023 Staff Ordering Physician: Harshal Walker MD Apartment House Manager: Janet Hernandez RDCS Attending Provider: Serafin Mirza MD Referring Physician: Aaron AMBROSIO; Exam Type: CA echo dop color flow w con Study Info Indications R06.02 - Shortness of breath Complete two-dimensional, color flow and Doppler transthoracic echocardiogram is performed with contrast to opacify the left ventricle and to improve the deliniation of the left ventricle endocardial borders. Contrast/Agitated Saline Contrast/Ag. Saline: Definity Amount: 4.00 ml Administered By: Janet Hernandez [facility] Reason for Poor Study: patient body habitus Summary 1. Technically suboptimal study due to poor sonographic images. 2. Definity contrast administered improved wall motion interpretation. 3. Left ventricular chamber dimension is normal. 4. Left ventricular systolic function is normal, estimated at 55-60%. 5. There is mild concentric increased left ventricular wall thickness. 6. The left ventricular diastolic function is grade I diastolic dysfunction. 7. The aortic valve is not well visualized. Cannot determine number of aortic valve leaflets. 8. There is mild aortic valve stenosis based on valve area of 1.6 cm2. 9. The mitral valve has moderately calcified annulus. Left Ventricle Technically suboptimal study due to poor sonographic images. Definity contrast administered improved wall motion interpretation. Tissue doppler E/e' is not performed. Left ventricular chamber dimension is normal. Left ventricular systolic function is normal, estimated at 55-60%. There is mild concentric increased left ventricular wall thickness. The left ventricular diastolic function is grade I diastolic dysfunction. Right Ventricle Right ventricular systolic function is normal based on normal TAPSE 2.0 cm. Right ventricular chamber dimension is not well visualized. Left Atria Left atrial chamber dimension is normal. Right Atria Right atrial chamber dimension is normal. Aortic Valve The aortic valve is not well visualized. Cannot determine number of aortic valve leaflets. There is mild aortic valve stenosis based on valve area of 1.6 cm2. There is no aortic valve regurgitation. Pulmonic Valve The pulmonic valve is not well visualized. Mitral Valve The mitral valve has moderately calcified annulus. There is no mitral valve stenosis. There is no mitral valve regurgitation. Tricuspid Valve There is no tricuspid valve regurgitation. Pericardium/Pleural There is no pericardial effusion. Inferior Vena Cava Inferior vena cava is not well visualized. Aorta The aortic root size at the sinus of Valsalva is normal. Tricuspid Valve Name Value Normal Estimated PAP/RSVP RA Pressure 5 mmHg <=5 Report Signatures
[2023-03-23 01:15] LABS: Reflex Lactic Acid Yes or No Add Lactic
[2023-03-23 01:25] LABS: Basophils Absolute Auto 0.1 K/mm3 (0.0-0.1); Basophils Percent Auto 0.7 % (0.2-1.2); Eosinophils Percent Auto 0.1 % (0-4.4); Hematocrit 56.9 % (42.0-52.0); Hemoglobin 18.6 g/dL (14.0-18.0); Immature Granulocyte Absolute 0.04 K/mm3 (0.00-0.031); Immature Granulocyte Percent A 0.3 % (0-0.5); Lymphocytes Absolute Auto 0.47 K/mm3 (0.9-3.2); Lymphocytes Percent Auto 3.4 % (18.3-44.2); Mean Corpuscular HGB Conc 32.7 g/dl (32-36); Mean Corpuscular Hemoglobin 31.2 pg (26-34); Mean Corpuscular Volume 95.5 fl (80-100); Mean Platelet Volume 10.3 fl (7.4-10.4); Monocytes Absolute Auto 0.9 K/mm3 (0.1-0.6); Monocytes Percent Auto 6.3 % (2.6-8.5); Neutrophils Absolute Auto 12.3 K/mm3 (1.3-6.7); Neutrophils Percent Auto 89.2 % (45.5-73.1); Platelet Count Result 210 k/mm3 (150-375); Red Blood Count 5.96 M/mm3 (4.6-6.20); Red Cell Distribution Width 15.3 % (11.5-14.5); White Blood Count 13.8 K/mm3 (4.5-10.0)
[2023-03-23 01:36] LABS: Creatine Kinase 22 U/L (55-170)
[2023-03-23 01:38] LABS: Anion Gap 20 mmol/L (8-16); Blood Urea Nitrogen 40 mg/dL (9-20); Calcium 9.3 mg/dL (8.4-10.2); Carbon Dioxide 18 mmol/L (22-30); Chloride 102 mmol/L (98-107); Estimated CRCL calculation 29 ml/min; Estimated Glomerular Filt Rate 37; Glucose 242 mg/dL (65-110); Magnesium 3.4 mg/dL (1.6-2.3); Potassium 3.6 mmol/L (3.4-5.0); Sodium 140 mmol/L (137-145)
--- NOTE | 2023-03-23 01:41 | ADMGEN ---
This patient, Farhan Armstrong, was admitted to IMU Room 231-01 at 0050 on 03/23/23. Patient/family oriented to hospital policies and general routines including ID bracelet, bed and alarms, visiting hours, pain management, procedures, bathroom and other care routines, personal items, smoking policy, room service/diet, and visiting hours. Information on how to activate the Rapid Response Team has been discussed. Patient/Family are encouraged to report perceived risks to care and to ask questions if they do not understand what they are told or what they should do.
--- NOTE | 2023-03-23 01:41 | ADMGEN ---
This patient, Farhan Armstrong, was admitted to IMU Room 231-01. Patient/family oriented to hospital policies and general routines including ID bracelet, bed and alarms, visiting hours, pain management, procedures, bathroom and other care routines, personal items, smoking policy, room service/diet, and visiting hours. Information on how to activate the Rapid Response Team has been discussed. Patient/Family are encouraged to report perceived risks to care and to ask questions if they do not understand what they are told or what they should do.
[2023-03-23 02:03] LABS: Troponin I 0.066 ng/mL (0.000-0.034)
[2023-03-23 02:04] LABS: Lactic Acid Reflex 4.9 mmol/L (0.7-2.0)
--- NOTE | 2023-03-23 02:13 | ECG_ITS ---
Rate 116 CA 176 QRSd 113 QT 336 QTc 467 --[place]-- P 83 QRS 67 T 55 SINUS TACHYCARDIA VENTRICULAR PREMATURE COMPLEX BORDERLINE R WAVE PROGRESSION, ANTERIOR LEADS BORDERLINE ST-T WAVE ABNORMALITY- INF/HIGH LAT LEADS ABNORMAL ECG COMPARED TO ECG 03/22/2023 21:58:24 SINUS TACHYCARDIA NOW PRESENT Electronically Signed On 03-25-2023 8:06:22 CDT by Trell TIERNEY
[2023-03-23] MEDS: LEVALBUTEROL NEB 1.25 MG/3 ML 0.63 MG INHALATION ×4 (03:23→20:16)
[2023-03-23] MEDS: IPRATROPIUM BR 0.02% INH SOLN 0.5 MG/2.5 ML VIAL INHALATION ×4 (03:23→20:16)
[2023-03-23] MEDS: SODIUM CHLORIDE 0.9% IV 250 ML 125 ML IV CONT (05:21)
[2023-03-23] MEDS: methylPREDNISolone SOD SUCC 125 MG VIAL 60 MG IV PUSH ×4 (05:23→23:53)
[2023-03-23 06:45] LABS: Troponin I 0.134 ng/mL (0.000-0.034)
[2023-03-23] MEDS: LACTULOSE 20 GM/30 ML UDC PO (08:59)
[2023-03-23] MEDS: methADONE HCL (*CRX) 5 MG TABLET PO ×2 (09:49→23:05)
[2023-03-23] MEDS: SUCRALFATE 1 GM TABLET PO ×3 (09:51→17:19)
[2023-03-23] MEDS: ARIPiprazole 2 MG TABLET 4 MG PO (09:52)
[2023-03-23] MEDS: buPROPion HCL XL (24 HR) 150 MG TABCR 300 MG PO (09:52)
[2023-03-23] MEDS: GABAPENTIN 100 MG CAPSULE PO ×3 (09:52→17:19)
[2023-03-23] MEDS: ASPIRIN 81 MG ENTERIC TABLET PO (09:52)
--- NOTE | 2023-03-23 12:17 | PM.IMPN ---
Progress Note: A&P Assessment and Plan (1) Respiratory failure: Qualifiers: Chronicity: acute Respiratory failure complication: hypoxia Qualified Code(s): J96.01 - Acute respiratory failure with hypoxia Code(s): J96.90 - Respiratory failure, unspecified, unspecified whether with hypoxia or hypercapnia Status: Acute Assessment and Plan: Admit to IMU BiPAP as needed. Possible pneumonia, continue antibiotics (2) CHF (congestive heart failure): Qualifiers: Heart failure chronicity: acute Heart failure type: unspecified Qualified Code(s): I50.9 - Heart failure, unspecified Code(s): I50.9 - Heart failure, unspecified Status: Acute Assessment and Plan: Brain atretic peptide 282 Less likely to have decompensation Will get echocardiogram. (3) Atrial fibrillation: Qualifiers: Atrial fibrillation type: unspecified Qualified Code(s): I48.91 - Unspecified atrial fibrillation Code(s): I48.91 - Unspecified atrial fibrillation Status: Acute Assessment and Plan: Patient responded to diltiazem push in emergency room Continue to monitor Cardiology consult (4) Non-small cell carcinoma of lung: Code(s): C34.90 - Malignant neoplasm of unspecified part of unspecified bronchus or lung Status: Acute Assessment and Plan: Follow-up in outpatient setting Patient current cor status is do not resuscitate (5) Coronary artery disease: Code(s): I25.10 - Atherosclerotic heart disease of [place] coronary artery without angina pectoris Status: Acute Assessment and Plan: Chest pain-free (6) ANIA (obstructive sleep apnea): Code(s): G47.33 - Obstructive sleep apnea (adult) (pediatric) Status: Chronic Assessment and Plan: Currently on continues BiPAP (7) COPD (chronic obstructive pulmonary disease): Qualifiers: COPD type: unspecified COPD Qualified Code(s): J44.9 - Chronic obstructive pulmonary disease, unspecified Code(s): J44.9 - Chronic obstructive pulmonary disease, unspecified Status: Chronic Assessment and Plan: A scheduled breathing treatments Will add systemic steroids (8) Atrial fibrillation with controlled ventricular rate: Code(s): I48.91 - Unspecified atrial fibrillation Status: Chronic Assessment and Plan: Continue to monitor (9) Diabetic polyneuropathy associated with type 2 diabetes mellitus: Code(s): E11.42 - Type 2 diabetes mellitus with diabetic polyneuropathy Status: Acute Assessment and Plan: Continue gabapentin (10) Urinary tract infection: Code(s): N39.0 - Urinary tract infection, site not specified Status: Acute Assessment and Plan: Currently on Rocephin Await cultures (11) Lactic acidosis: Code(s): E87.20 - Acidosis, unspecified Status: Acute Assessment and Plan: Monitor (12) Acute on chronic respiratory failure with hypoxia and hypercapnia: Code(s): J96.21 - Acute and chronic respiratory failure with hypoxia; J96.22 - Acute and chronic respiratory failure with hypercapnia Status: Acute Assessment and Plan: BiPAP as needed Subjective Date/time seen: 03/23/23 12:17 Interval history: Patient reports he short of breath. According to son and patient he does not wear oxygen at his facility. Exam Narrative: GENERAL: Well-appearing, well-nourished, and in no acute distress. HEAD: Normocephalic, atraumatic. EYES: PERRLA and EOMI. ENT: Nares clear, no rhinorrhea or epistaxis. Mucous membranes moist. NECK: Supple. CHEST: Clear to auscultation. No respiratory distress. HEART: Tachycardic irregular rate and rhythm. No murmur heard. Normal peripheral pulses. ABDOMEN: Soft, nontender, nondistended, normal active bowel sounds. EXTREMITIES: Normal range of motion. No edema. SKIN: Warm, dry, no rash. NEURO: No focal deficits. Alert and
[2023-03-23] MEDS: PERFLUTREN LIPID MICROSPHERES 1.5 ML VIAL DILUTED TO 10 ML TOTAL VOLUME IV PUSH (13:00)
--- NOTE | 2023-03-23 14:14 | PCRCNOTE ---
RT placed pt back on BIPAP due to increased 02 demands and drowsiness. Pt on 10L HFNC. BIPAP pressure may help increase 02 sats so that RT can wean 02 due to pt being a chronic C02 retainer.
--- NOTE | 2023-03-23 16:02 | PCRCNOTE ---
Due to increased 02 demands, pt having COPD, and unable to tolerate BIPAP at this time, RT to start Vapotherm.
--- NOTE | 2023-03-23 16:30 | PCRCNOTE ---
Pt placed on 45L/70% VapoTherm. Pt sats are at 92%.
[2023-03-23] MEDS: ASCORBIC ACID 500 MG TABLET PO (17:19)
[2023-03-23] MEDS: TAMSULOSIN HCL 0.4 MG CAPSULE PO (23:01)
[2023-03-23] MEDS: rOPINIRole HCL 1 MG TABLET PO (23:02)
[2023-03-23] MEDS: MIRTAZAPINE 15 MG TABLET PO (23:02)
[2023-03-24] VITALS (20 sets, daily range): BP systolic 112–130; BP diastolic 64–70; PULSE 87–109; RESP 16–24; TEMP 35.7–36.6; O2SAT 90–100
[2023-03-24] MEDS: LEVALBUTEROL NEB 1.25 MG/3 ML 0.63 MG INHALATION ×3 (02:00→21:26)
[2023-03-24] MEDS: IPRATROPIUM BR 0.02% INH SOLN 0.5 MG/2.5 ML VIAL INHALATION ×3 (02:00→21:26)
[2023-03-24] MEDS: LEVOTHYROXINE SODIUM 25 MCG TABLET PO (06:24)
[2023-03-24] MEDS: methylPREDNISolone SOD SUCC 125 MG VIAL 60 MG IV PUSH ×2 (06:24→20:50)
[2023-03-24] MEDS: SUCRALFATE 1 GM TABLET PO ×3 (06:31→17:26)
[2023-03-24] MEDS: methADONE HCL (*CRX) 5 MG TABLET PO ×2 (08:44→20:51)
[2023-03-24] MEDS: LACTULOSE 20 GM/30 ML UDC PO (08:44)
[2023-03-24] MEDS: MULTIVITAMINS /C LUTEIN (CENTRUM SILVER) TABLET *BKC 1 TAB PO (08:44)
[2023-03-24] MEDS: GABAPENTIN 100 MG CAPSULE PO ×3 (08:44→17:25)
[2023-03-24] MEDS: buPROPion HCL XL (24 HR) 150 MG TABCR 300 MG PO (08:45)
[2023-03-24] MEDS: ASCORBIC ACID 500 MG TABLET PO ×2 (08:45→17:26)
[2023-03-24] MEDS: BISACODYL 5 MG TABLET EC 10 MG PO (08:45)
[2023-03-24] MEDS: ARIPiprazole 2 MG TABLET 4 MG PO (08:45)
[2023-03-24] MEDS: ASPIRIN 81 MG ENTERIC TABLET PO (08:45)
[2023-03-24 08:51] LABS: Hematocrit 42.1 % (42.0-52.0); Hemoglobin 14.2 g/dL (14.0-18.0); Mean Corpuscular HGB Conc 33.7 g/dl (32-36); Mean Corpuscular Hemoglobin 31.2 pg (26-34); Mean Corpuscular Volume 92.5 fl (80-100); Mean Platelet Volume 10.5 fl (7.4-10.4); Platelet Count Result 144 k/mm3 (150-375); Red Blood Count 4.55 M/mm3 (4.6-6.20); Red Cell Distribution Width 14.9 % (11.5-14.5); White Blood Count 14.6 K/mm3 (4.5-10.0)
[2023-03-24 09:09] LABS: Lactic Acid Reflex 1.4 mmol/L (0.7-2.0)
[2023-03-24 09:11] LABS: Anion Gap 12 mmol/L (8-16); Blood Urea Nitrogen 74 mg/dL (9-20); Calcium 8.5 mg/dL (8.4-10.2); Carbon Dioxide 21 mmol/L (22-30); Chloride 101 mmol/L (98-107); Estimated CRCL calculation 23 ml/min; Estimated Glomerular Filt Rate 31; Glucose 166 mg/dL (65-110); Potassium 3.8 mmol/L (3.4-5.0); Sodium 134 mmol/L (137-145)
[2023-03-24 09:18] LABS: Band Neutrophils Percent 22 % (0-6); Lymphocytes Absolute Manual 0.29 K/mm3 (1.1-4.5); Lymphocytes Percent Manual 2 % (18-44); Monocytes Absolute Manual 0.43 K/mm3 (0.1-0.90); Monocytes Percent Manual 3 % (3-9); Neutrophils Absolute Manual 13.87 K/mm3 (1.3-6.7); Neutrophils Percent Manual 73 % (46-73); Platelet Estimate Adequate (Adequate); Schistocytes None Seen (NORMAL); Total Cells Counted 100
--- NOTE | 2023-03-24 11:01 | PM.IMPN ---
Progress Note: A&P Assessment and Plan (1) Respiratory failure: Qualifiers: Chronicity: acute Respiratory failure complication: hypoxia Qualified Code(s): J96.01 - Acute respiratory failure with hypoxia Code(s): J96.90 - Respiratory failure, unspecified, unspecified whether with hypoxia or hypercapnia Status: Acute Assessment and Plan: Admit to IMU BiPAP as needed. Possible pneumonia, continue antibiotics (2) CHF (congestive heart failure): Qualifiers: Heart failure chronicity: acute Heart failure type: unspecified Qualified Code(s): I50.9 - Heart failure, unspecified Code(s): I50.9 - Heart failure, unspecified Status: Acute Assessment and Plan: Brain atretic peptide 282 Less likely to have decompensation Will get echocardiogram. (3) Atrial fibrillation: Qualifiers: Atrial fibrillation type: unspecified Qualified Code(s): I48.91 - Unspecified atrial fibrillation Code(s): I48.91 - Unspecified atrial fibrillation Status: Acute Assessment and Plan: Patient responded to diltiazem push in emergency room Continue to monitor Cardiology consult (4) Non-small cell carcinoma of lung: Code(s): C34.90 - Malignant neoplasm of unspecified part of unspecified bronchus or lung Status: Acute Assessment and Plan: Follow-up in outpatient setting Patient current cor status is do not resuscitate (5) Coronary artery disease: Code(s): I25.10 - Atherosclerotic heart disease of [place] coronary artery without angina pectoris Status: Acute Assessment and Plan: Chest pain-free (6) ANIA (obstructive sleep apnea): Code(s): G47.33 - Obstructive sleep apnea (adult) (pediatric) Status: Chronic Assessment and Plan: Currently on continues BiPAP (7) COPD (chronic obstructive pulmonary disease): Qualifiers: COPD type: unspecified COPD Qualified Code(s): J44.9 - Chronic obstructive pulmonary disease, unspecified Code(s): J44.9 - Chronic obstructive pulmonary disease, unspecified Status: Chronic Assessment and Plan: A scheduled breathing treatments Will add systemic steroids (8) Atrial fibrillation with controlled ventricular rate: Code(s): I48.91 - Unspecified atrial fibrillation Status: Chronic Assessment and Plan: Continue to monitor (9) Diabetic polyneuropathy associated with type 2 diabetes mellitus: Code(s): E11.42 - Type 2 diabetes mellitus with diabetic polyneuropathy Status: Acute Assessment and Plan: Continue gabapentin (10) Urinary tract infection: Code(s): N39.0 - Urinary tract infection, site not specified Status: Acute Assessment and Plan: Currently on Rocephin Await cultures (11) Lactic acidosis: Code(s): E87.20 - Acidosis, unspecified Status: Acute Assessment and Plan: Monitor (12) Acute on chronic respiratory failure with hypoxia and hypercapnia: Code(s): J96.21 - Acute and chronic respiratory failure with hypoxia; J96.22 - Acute and chronic respiratory failure with hypercapnia Status: Acute Assessment and Plan: BiPAP as needed Subjective Date/time seen: 03/24/23 11:01 Interval history: No complaints Exam Narrative: GENERAL: Well-appearing, well-nourished, and in no acute distress. HEAD: Normocephalic, atraumatic. EYES: PERRLA and EOMI. ENT: Nares clear, no rhinorrhea or epistaxis. Mucous membranes moist. NECK: Supple. CHEST: Clear to auscultation. No respiratory distress. HEART: Tachycardic irregular rate and rhythm. No murmur heard. Normal peripheral pulses. ABDOMEN: Soft, nontender, nondistended, normal active bowel sounds. EXTREMITIES: Normal range of motion. No edema. SKIN: Warm, dry, no rash. NEURO: No focal deficits. Alert and oriented x3 somewhat slow to respond. PSYCH: Normal mood and affect. Objective Data Vi
--- NOTE | 2023-03-24 11:56 | PM.CNCAR ---
Assessment and Plan Assessment and plan (1) Atrial fibrillation with controlled ventricular rate: Code(s): I48.91 - Unspecified atrial fibrillation Status: Chronic Plan Assessment AF with RVR in setting of acute on chronic resp failure Acute on chronic respiratory failure Possible pneumonia vs COPD exacerbation SHAKIRA Plan Diltiazem 30 mg TID Anticoagulation with eliquis 2.5 mg BID and D/C Aspirin History of Present Illness History of Present Illness Consult date/time: 03/24/23 11:56 Reason For Visit: acute respiratory failure,chf,copd,pneumonia,a fib Narrative: Patient cant provide much history and data obtained from charts. He was brought to the hospital with hypoxemia, and acute resp distress with hypoxemia. He was found to have hypoxemia with CO2 retention, lactic acidosis, possible pneumonia. He was also noted to have AF with RVR. Review of Systems Review of Systems: ROS unobtainable: Yes unobtainable due to mental status PMFSH Past Medical History Medical History Aortic valve stenosis Arthritis (03/26/19) Atrial fibrillation with controlled ventricular rate Chronic congestive heart failure COPD (chronic obstructive pulmonary disease) Coronary artery disease 2019 - nonSTEMI - left heart cath showed mild coronary artery disease with severe LV dysfunction EF 20% with possible underlying nonischemic cardiomyopathy, no PCI Depression Diabetes mellitus Diabetic polyneuropathy associated with type 2 diabetes mellitus Fibromyalgia Mixed hyperlipidemia Non-small cell carcinoma of lung ANIA (obstructive sleep apnea) Restless legs syndrome Sacral decubitus ulcer Surgical History Surgical History History of hernia repair Umbilical hernia repair. Bilateral inguinal hernia repairs. Family History Family History Sibling Patient's sister is in good health Hypertension Family history of heart disease in male family member before age 55 Mother Family history of heart disease in male family member before age 55 Patient's mother is Family history of congestive heart failure, Onset Age: 70 Father Patient's father is Acute myocardial infarction, Onset Age: 62 Grandparent Depression Family history of arthritis Family history of malignant neoplasm of breast Family history of heart disease in male family member before age 55 Other Cerebrovascular accident Family history of cardiovascular disease Social History Social History Social History: 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 He is a former smoker. The patient is retired. The patient he tells me that he wants to be a DNR. 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 The patient appeared to be alert enough to make that decision however I believe there needs to be further discussion with his family members. Code status full code Smoking packs per day: 1.5 Smoking cigarettes per day: 30.0 Years smoked: 30 Smoking pack-years: 45.00 Smoking status: Former smoker Tobacco type: cigarettes Second hand tobacco smoke exposure: Yes Smoking end date: 11/18/99 Alcohol intake: never Substance use: never Substance use type: does not use Lack of Transportation: No Lack of Food: Never True Current Housing: I Have Housing Concerned About Future Housing: No Difficulty Paying Gas/Electric Bills: No Difficulty Paying for Meds: No Currently Unemployed: No Education: High School Diploma/GED Difficulty w/ Childcare or Family Care: No Living arrangements: assisted living Gender identity (if verbalized by the patient
[2023-03-24 20:37] LABS: Glucose Point of Care 226 mg/dl (65-105)
[2023-03-24] MEDS: TAMSULOSIN HCL 0.4 MG CAPSULE PO (20:51)
[2023-03-24] MEDS: rOPINIRole HCL 1 MG TABLET PO (20:51)
[2023-03-24] MEDS: MIRTAZAPINE 15 MG TABLET PO (20:51)
[2023-03-25] VITALS (27 sets, daily range): BP systolic 94–144; BP diastolic 52–87; PULSE 71–96; RESP 17–22; TEMP 36.1–36.7; O2SAT 90–98; BMI 26.4
[2023-03-25] MEDS: IPRATROPIUM BR 0.02% INH SOLN 0.5 MG/2.5 ML VIAL INHALATION ×4 (02:54→22:00)
[2023-03-25] MEDS: LEVALBUTEROL NEB 1.25 MG/3 ML 0.63 MG INHALATION ×4 (02:54→22:00)
[2023-03-25] MEDS: SUCRALFATE 1 GM TABLET PO ×3 (06:11→17:39)
[2023-03-25] MEDS: LEVOTHYROXINE SODIUM 25 MCG TABLET PO (06:11)
[2023-03-25 07:57] LABS: Glucose Point of Care 199 mg/dl (65-105)
[2023-03-25] MEDS: ARIPiprazole 2 MG TABLET 4 MG PO (08:06)
[2023-03-25] MEDS: GABAPENTIN 100 MG CAPSULE PO ×3 (08:06→17:39)
[2023-03-25] MEDS: buPROPion HCL XL (24 HR) 150 MG TABCR 300 MG PO (08:06)
[2023-03-25] MEDS: LACTULOSE 20 GM/30 ML UDC PO ×3 (08:07→17:39)
[2023-03-25] MEDS: methylPREDNISolone SOD SUCC 125 MG VIAL 60 MG IV PUSH ×2 (08:07→21:34)
[2023-03-25] MEDS: ASPIRIN 81 MG ENTERIC TABLET PO (08:07)
[2023-03-25] MEDS: BISACODYL 5 MG TABLET EC 10 MG PO (08:07)
[2023-03-25] MEDS: ASCORBIC ACID 500 MG TABLET PO ×2 (08:07→17:39)
[2023-03-25] MEDS: MULTIVITAMINS /C LUTEIN (CENTRUM SILVER) TABLET *BKC 1 TAB PO (08:07)
[2023-03-25] MEDS: methADONE HCL (*CRX) 5 MG TABLET PO (08:09)
--- NOTE | 2023-03-25 09:12 | PCRCNOTE ---
pt could not keep Vapotherm cannula in nose. when placed back in nose, pt tried to pull it out again. RT stated that it was high flow 02. pt stated 'this is not what 02 feels like, are you trying to kill me?' RT stated that the high flow 02 was helping him. Pt stated 'I don't believe you.' RT explained why the high flow 02 was needed due to him not being able to tolerate the BIPAP. pt settled and is leaving cannula alone now.
--- NOTE | 2023-03-25 10:42 | PM.IMPN ---
Progress Note: A&P Assessment and Plan (1) Respiratory failure: Qualifiers: Chronicity: acute Respiratory failure complication: hypoxia Qualified Code(s): J96.01 - Acute respiratory failure with hypoxia Code(s): J96.90 - Respiratory failure, unspecified, unspecified whether with hypoxia or hypercapnia Status: Acute Assessment and Plan: Admit to IMU BiPAP as needed. Possible pneumonia, continue antibiotics (2) CHF (congestive heart failure): Qualifiers: Heart failure chronicity: acute Heart failure type: unspecified Qualified Code(s): I50.9 - Heart failure, unspecified Code(s): I50.9 - Heart failure, unspecified Status: Acute Assessment and Plan: Brain atretic peptide 282 Less likely to have decompensation Will get echocardiogram. (3) Atrial fibrillation: Qualifiers: Atrial fibrillation type: unspecified Qualified Code(s): I48.91 - Unspecified atrial fibrillation Code(s): I48.91 - Unspecified atrial fibrillation Status: Acute Assessment and Plan: Patient responded to diltiazem push in emergency room Continue to monitor Cardiology consult (4) Non-small cell carcinoma of lung: Code(s): C34.90 - Malignant neoplasm of unspecified part of unspecified bronchus or lung Status: Acute Assessment and Plan: Follow-up in outpatient setting Patient current cor status is do not resuscitate (5) Coronary artery disease: Code(s): I25.10 - Atherosclerotic heart disease of [place] coronary artery without angina pectoris Status: Acute Assessment and Plan: Chest pain-free (6) ANIA (obstructive sleep apnea): Code(s): G47.33 - Obstructive sleep apnea (adult) (pediatric) Status: Chronic Assessment and Plan: Currently on continues BiPAP (7) COPD (chronic obstructive pulmonary disease): Qualifiers: COPD type: unspecified COPD Qualified Code(s): J44.9 - Chronic obstructive pulmonary disease, unspecified Code(s): J44.9 - Chronic obstructive pulmonary disease, unspecified Status: Chronic Assessment and Plan: A scheduled breathing treatments Will add systemic steroids (8) Atrial fibrillation with controlled ventricular rate: Code(s): I48.91 - Unspecified atrial fibrillation Status: Chronic Assessment and Plan: Continue to monitor (9) Diabetic polyneuropathy associated with type 2 diabetes mellitus: Code(s): E11.42 - Type 2 diabetes mellitus with diabetic polyneuropathy Status: Acute Assessment and Plan: Continue gabapentin (10) Urinary tract infection: Code(s): N39.0 - Urinary tract infection, site not specified Status: Acute Assessment and Plan: Currently on Rocephin Await cultures (11) Lactic acidosis: Code(s): E87.20 - Acidosis, unspecified Status: Acute Assessment and Plan: Monitor (12) Acute on chronic respiratory failure with hypoxia and hypercapnia: Code(s): J96.21 - Acute and chronic respiratory failure with hypoxia; J96.22 - Acute and chronic respiratory failure with hypercapnia Status: Acute Assessment and Plan: BiPAP as needed Subjective Date/time seen: 03/25/23 10:42 Interval history: Feeling better Exam Narrative: GENERAL: Well-appearing, well-nourished, and in no acute distress. HEAD: Normocephalic, atraumatic. EYES: PERRLA and EOMI. ENT: Nares clear, no rhinorrhea or epistaxis. Mucous membranes moist. NECK: Supple. CHEST: Clear to auscultation. No respiratory distress. HEART: Tachycardic irregular rate and rhythm. No murmur heard. Normal peripheral pulses. ABDOMEN: Soft, nontender, nondistended, normal active bowel sounds. EXTREMITIES: Normal range of motion. No edema. SKIN: Warm, dry, no rash. NEURO: No focal deficits. Alert and oriented x3 somewhat slow to respond. PSYCH: Normal mood and affect. Objective Data V
[2023-03-25] MEDS: INSULIN ASPART (*BKC) 100 UNITS/ML SUB-Q ×2 (11:58→17:40)
[2023-03-25 12:01] LABS: Glucose Point of Care 213 mg/dl (65-105)
--- NOTE | 2023-03-25 13:15 | P.CDI_ITS ---
CDI Query Clarification Request Documented history of CHF. CHF noted in the assessment and plan. Elevated BNP on 03/22/23 lab work. Furosemide listed as a home medication. Patient presents with complaints of shortness breath. Please specify type and acuity of heart failure if known. * Acute * Chronic * Acute on Chronic * Unknown * Systolic * Diastolic * Combined Systolic and Diastolic * Unknown
--- NOTE | 2023-03-25 15:22 | PM.PNCARD ---
Progress Note: A&P Assessment and Plan (1) Atrial fibrillation with controlled ventricular rate: Code(s): I48.91 - Unspecified atrial fibrillation Status: Chronic Assessment and Plan: AF with RVR in the setting of acute on chronic respiratory failure. He has converted to sinus rhythm. Continue Diltiazem, will shift to long acting Continue a/c with apixaban. Will increase dose to 5mg b.i.d. (does not meet criteria for dose adjustment for renal impairment until age 80) Cardiology will sign off. Please do not hesitate to call with any questions Subjective Date/time seen: 03/25/23 15:22 Cardiology follow up for Afib Interval history: Breathing has improved today. Denies any chest pain or palpitations. He is in sinus rhythm. Review of Systems Review of Systems: All systems reviewed & are unremarkable except as noted in HPI and below Exam Const: General: comfortable and no acute distress HENMT: Face/Nose/Sinus: Normal nares present and no epistaxis Mouth: Yes moist mucous membranes Eyes: Sclera: sclerae normal Pupils: Equal, round and reactive pupils present Neck: Neck: supple and no JVD Carotids: no bruits Resp: Effort & Inspection: normal respiratory effort Auscultation: wheezes Other: No chest wall tenderness Cardio: Rate: regular rate Rhythm: regular rhythm Heart sounds: no gallops, no murmurs and no rubs GI: Auscultation: normal bowel sounds Skin: General skin exam: normal color, rashes and/or lesions noted and no erythema Other: Warm Neuro: Cranial nerves: Yes Equal, round and reactive pupils present Extrem: General: no edema Other: Normal capillary refills Intact distal pulses. Objective Data Vital Signs Vital Signs: Vital Signs - 24 hr 03/24/23 16:00 03/24/23 16:00 03/24/23 18:00 Temperature 36.2 C L Pulse Rate 87 93 109 H Respiratory Rate 24 H Blood Pressure 112/64 Pulse Oximetry 97 Oxygen Delivery Oxygen Flow Rate Fraction of Inspired Oxygen 03/24/23 20:00 03/24/23 21:26 03/24/23 20:00 Temperature 36.6 C Pulse Rate 95 97 Respiratory Rate 20 16 Blood Pressure 117/65 Pulse Oximetry 100 100 Oxygen Delivery High Flow Therapy with Na Oxygen Flow Rate 45 Fraction of Inspired Oxygen 60 03/24/23 20:00 03/24/23 21:58 03/24/23 22:00 Temperature Pulse Rate 91 96 92 Respiratory Rate 20 Blood Pressure Pulse Oximetry 94 Oxygen Delivery High Flow Therapy with Na Oxygen Flow Rate 45 Fraction of Inspired Oxygen 60 03/24/23 23:07 03/25/23 00:00 03/25/23 00:00 Temperature 36.4 C Pulse Rate 88 84 Respiratory Rate 20 Blood Pressure 130/68 Pulse Oximetry 90 91 Oxygen Delivery High Flow Therapy with Na Oxygen Flow Rate 45 Fraction of Inspired Oxygen 60 03/25/23 01:35 03/25/23 02:55 03/25/23 02:00 Temperature Pulse Rate 96 77 Respiratory Rate 17 17 Blood Pressure Pulse Oximetry 90 Oxygen Delivery High Flow Therapy with Na Oxygen Flow Rate 45 Fraction of Inspired Oxygen 60 03/25/23 04:00 03/25/23 04:00 03/25/23 04:00 Temperature 36.5 C Pulse Rate 78 85 Respiratory Rate 22 H Blood Pressure 117/71 Pulse Oximetry 90 90 Oxygen Delivery High Flow Therapy with Na Oxygen Flow Rate 45 Fraction of Inspired Oxygen 60 03/25/23 06:00 03/25/23 08:04 03/25/23 08:00 Temperature 36.1 C L Pulse Rate 76 83 Respiratory Rate 22 H Blood Pressure 101/69 Pulse Oximetry 92 98 Oxygen Delivery High Flow Therapy with Na Oxygen Flow Rate 45 Fraction of Inspired Oxygen 50 03/25/23 09:10 03/25/23 09:11 03/25/23 09:22 Temperature Pulse Rate 71 74 Respiratory Rate 22 H 22 H Blood Pressure Pulse Oximetry 94 Oxygen Delivery High Flow Therapy with Na Oxygen Flow Rate 45 Fraction of Inspired Oxygen 50 03/25/23 08:00 03/25/23 10:00 03/25/23 12:13 Temperature 36.2 C L Pulse Rate 77 82 77 Respiratory R
[2023-03-25 16:32] LABS: Glucose Point of Care 213 mg/dl (65-105)
[2023-03-25 19:47] LABS: Glucose Point of Care 165 mg/dl (65-105)
[2023-03-25] MEDS: ONDANSETRON INJ 4 MG/2 ML VIAL IV PUSH (22:26)
[2023-03-26] VITALS (26 sets, daily range): BP systolic 134–159; BP diastolic 76–89; PULSE 84–109; RESP 18–22; TEMP 35.9–36.4; O2SAT 93–99
[2023-03-26] MEDS: TRIMETHOBENZAMIDE HCL 200 MG/2 ML VIAL IM (02:05)
[2023-03-26] MEDS: IPRATROPIUM BR 0.02% INH SOLN 0.5 MG/2.5 ML VIAL INHALATION ×4 (02:29→20:45)
[2023-03-26] MEDS: LEVALBUTEROL NEB 1.25 MG/3 ML 0.63 MG INHALATION ×4 (02:29→20:45)
[2023-03-26 05:00] LABS: Basophils Percent Auto 0.1 % (0.2-1.2); Hematocrit 45.1 % (42.0-52.0); Hemoglobin 15.3 g/dL (14.0-18.0); Immature Granulocyte Absolute 0.11 K/mm3 (0.00-0.031); Immature Granulocyte Percent A 0.6 % (0-0.5); Lymphocytes Absolute Auto 0.42 K/mm3 (0.9-3.2); Lymphocytes Percent Auto 2.4 % (18.3-44.2); Mean Corpuscular HGB Conc 33.9 g/dl (32-36); Mean Corpuscular Hemoglobin 30.8 pg (26-34); Mean Corpuscular Volume 90.9 fl (80-100); Mean Platelet Volume 10.8 fl (7.4-10.4); Monocytes Absolute Auto 0.6 K/mm3 (0.1-0.6); Monocytes Percent Auto 3.6 % (2.6-8.5); Neutrophils Absolute Auto 16.5 K/mm3 (1.3-6.7); Neutrophils Percent Auto 93.3 % (45.5-73.1); Platelet Count Result 185 k/mm3 (150-375); Red Blood Count 4.96 M/mm3 (4.6-6.20); White Blood Count 17.7 K/mm3 (4.5-10.0)
[2023-03-26 05:14] LABS: Anion Gap 6 mmol/L (8-16); Blood Urea Nitrogen 71 mg/dL (9-20); Calcium 9.5 mg/dL (8.4-10.2); Carbon Dioxide 33 mmol/L (22-30); Chloride 99 mmol/L (98-107); Estimated CRCL calculation 35 ml/min; Estimated Glomerular Filt Rate 45; Glucose 217 mg/dL (65-110); Potassium 3.7 mmol/L (3.4-5.0); Sodium 138 mmol/L (137-145)
[2023-03-26] MEDS: SUCRALFATE 1 GM TABLET PO ×2 (06:17→16:55)
[2023-03-26] MEDS: LEVOTHYROXINE SODIUM 25 MCG TABLET PO (06:17)
[2023-03-26 07:53] LABS: Glucose Point of Care 216 mg/dl (65-105)
[2023-03-26] MEDS: methylPREDNISolone SOD SUCC 125 MG VIAL 60 MG IV PUSH (09:53)
--- NOTE | 2023-03-26 11:54 | PM.IMPN ---
Progress Note: A&P Assessment and Plan (1) Respiratory failure: Qualifiers: Chronicity: acute Respiratory failure complication: hypoxia Qualified Code(s): J96.01 - Acute respiratory failure with hypoxia Code(s): J96.90 - Respiratory failure, unspecified, unspecified whether with hypoxia or hypercapnia Status: Acute Assessment and Plan: Admit to IMU BiPAP as needed. Possible pneumonia, continue antibiotics Possible COPD as well. (2) CHF (congestive heart failure): Qualifiers: Heart failure chronicity: acute Heart failure type: unspecified Qualified Code(s): I50.9 - Heart failure, unspecified Code(s): I50.9 - Heart failure, unspecified Status: Acute Assessment and Plan: Continue diuretics as needed (3) Atrial fibrillation: Qualifiers: Atrial fibrillation type: unspecified Qualified Code(s): I48.91 - Unspecified atrial fibrillation Code(s): I48.91 - Unspecified atrial fibrillation Status: Acute Assessment and Plan: Patient responded to diltiazem push in emergency room Continue to monitor Cardiology consult appreciated (4) Non-small cell carcinoma of lung: Code(s): C34.90 - Malignant neoplasm of unspecified part of unspecified bronchus or lung Status: Acute Assessment and Plan: Follow-up in outpatient setting Patient current cor status is do not resuscitate (5) Coronary artery disease: Code(s): I25.10 - Atherosclerotic heart disease of [place] coronary artery without angina pectoris Status: Acute Assessment and Plan: Chest pain-free (6) ANIA (obstructive sleep apnea): Code(s): G47.33 - Obstructive sleep apnea (adult) (pediatric) Status: Chronic Assessment and Plan: BiPAP at night (7) COPD (chronic obstructive pulmonary disease): Qualifiers: COPD type: unspecified COPD Qualified Code(s): J44.9 - Chronic obstructive pulmonary disease, unspecified Code(s): J44.9 - Chronic obstructive pulmonary disease, unspecified Status: Chronic Assessment and Plan: will decrease steroids. Respiratory status is improving. (8) Atrial fibrillation with controlled ventricular rate: Code(s): I48.91 - Unspecified atrial fibrillation Status: Chronic Assessment and Plan: Continue to monitor Appreciate Cardiology input. (9) Diabetic polyneuropathy associated with type 2 diabetes mellitus: Code(s): E11.42 - Type 2 diabetes mellitus with diabetic polyneuropathy Status: Acute Assessment and Plan: Continue gabapentin (10) Urinary tract infection: Code(s): N39.0 - Urinary tract infection, site not specified Status: Acute Assessment and Plan: Currently on Rocephin Await cultures (11) Lactic acidosis: Code(s): E87.20 - Acidosis, unspecified Status: Acute Assessment and Plan: Monitor (12) Acute on chronic respiratory failure with hypoxia and hypercapnia: Code(s): J96.21 - Acute and chronic respiratory failure with hypoxia; J96.22 - Acute and chronic respiratory failure with hypercapnia Status: Acute Assessment and Plan: BiPAP as needed (13) Leukocytosis: Code(s): D72.829 - Elevated white blood cell count, unspecified Status: Acute Assessment and Plan: likely secondary to prednisone. Monitor. Chest x-ray improved. Subjective Date/time seen: 03/26/23 11:54 Interval history: respiratory status improved. Exam Narrative: GENERAL: Well-appearing, well-nourished, and in no acute distress. HEAD: Normocephalic, atraumatic. EYES: PERRLA and EOMI. ENT: Nares clear, no rhinorrhea or epistaxis. Mucous membranes moist. NECK: Supple. CHEST: Clear to auscultation. No respiratory distress. HEART: Tachycardic irregular rate and rhythm. No murmur heard. Normal peripheral pulses. ABDOMEN: Soft, nontender, nondistended, normal acti
[2023-03-26 12:00] LABS: Glucose Point of Care 199 mg/dl (65-105)
[2023-03-26] MEDS: FUROSEMIDE INJ 40 MG/4 ML VIAL IV PUSH (13:03)
[2023-03-26] MEDS: methADONE HCL (*CRX) 5 MG TABLET PO ×2 (13:05→20:36)
[2023-03-26] MEDS: buPROPion HCL XL (24 HR) 150 MG TABCR 300 MG PO (13:05)
[2023-03-26] MEDS: ARIPiprazole 2 MG TABLET 4 MG PO (13:06)
[2023-03-26] MEDS: APIXABAN 5 MG TABLET PO ×2 (13:06→20:39)
[2023-03-26] MEDS: BISACODYL 5 MG TABLET EC 10 MG PO (13:09)
[2023-03-26] MEDS: GABAPENTIN 100 MG CAPSULE PO ×2 (13:13→16:55)
[2023-03-26 16:38] LABS: Glucose Point of Care 239 mg/dl (65-105)
--- NOTE | 2023-03-26 16:43 | PC.NURSE ---
1000- pt refused am medications - stated he does not feel good- denies pain or nausea
[2023-03-26] MEDS: LACTULOSE 20 GM/30 ML UDC PO (16:55)
[2023-03-26] MEDS: ASCORBIC ACID 500 MG TABLET PO (16:55)
[2023-03-26] MEDS: INSULIN ASPART (*BKC) 100 UNITS/ML SUB-Q (16:56)
[2023-03-26 19:47] LABS: Glucose Point of Care 209 mg/dl (65-105)
[2023-03-26] MEDS: TAMSULOSIN HCL 0.4 MG CAPSULE PO (20:37)
[2023-03-26] MEDS: MIRTAZAPINE 15 MG TABLET PO (20:37)
[2023-03-26] MEDS: rOPINIRole HCL 1 MG TABLET PO (20:37)
[2023-03-27] VITALS (20 sets, daily range): BP systolic 116–154; BP diastolic 57–79; PULSE 76–119; RESP 18–22; TEMP 36.1–36.8; O2SAT 92–98
[2023-03-27] MEDS: IPRATROPIUM BR 0.02% INH SOLN 0.5 MG/2.5 ML VIAL INHALATION ×4 (02:00→20:22)
[2023-03-27] MEDS: LEVALBUTEROL NEB 1.25 MG/3 ML 0.63 MG INHALATION ×4 (02:00→20:23)
--- NOTE | 2023-03-27 06:30 | PC.NURSE ---
Paper documentation exists on this patient due to [employer] downtime on 03/26/23 from to [[phone]] .
[2023-03-27] MEDS: LEVOTHYROXINE SODIUM 25 MCG TABLET PO (06:39)
[2023-03-27 08:41] LABS: Glucose Point of Care 159 mg/dl (65-105)
[2023-03-27] MEDS: PROCHLORPERAZINE EDISYLATE 10 MG/2 ML VIAL IV PUSH (10:56)
[2023-03-27] MEDS: methylPREDNISolone SOD SUCC 125 MG VIAL 60 MG IV PUSH (11:14)
[2023-03-27 12:08] LABS: Glucose Point of Care 157 mg/dl (65-105)
[2023-03-27] MEDS: methADONE HCL (*CRX) 5 MG TABLET PO ×2 (12:55→20:45)
[2023-03-27] MEDS: APIXABAN 5 MG TABLET PO ×2 (12:55→20:45)
[2023-03-27] MEDS: ARIPiprazole 2 MG TABLET 4 MG PO (12:56)
[2023-03-27] MEDS: buPROPion HCL XL (24 HR) 150 MG TABCR 300 MG PO (12:56)
[2023-03-27] MEDS: BISACODYL 5 MG TABLET EC 10 MG PO (12:56)
[2023-03-27] MEDS: GABAPENTIN 100 MG CAPSULE PO ×3 (12:57→18:04)
[2023-03-27] MEDS: MULTIVITAMINS /C LUTEIN (CENTRUM SILVER) TABLET *BKC 1 TAB PO (13:01)
[2023-03-27] MEDS: LACTULOSE 20 GM/30 ML UDC PO ×2 (15:25→18:06)
[2023-03-27] MEDS: SUCRALFATE 1 GM TABLET PO (15:26)
[2023-03-27 16:54] LABS: Glucose Point of Care 316 mg/dl (65-105)
[2023-03-27 16:54] LABS: Glucose Point of Care 274 mg/dl (65-105)
--- NOTE | 2023-03-27 17:47 | WPDPN ---
Progress Note: A&P Assessment and Plan (1) Respiratory failure: Qualifiers: Chronicity: acute Respiratory failure complication: hypoxia Qualified Code(s): J96.01 - Acute respiratory failure with hypoxia Code(s): J96.90 - Respiratory failure, unspecified, unspecified whether with hypoxia or hypercapnia Status: Acute Assessment and Plan: Admit to IMU BiPAP as needed. Possible pneumonia, continue antibiotics Possible COPD as well. 03/27/2023 interval history: patient remains clinically stable, patient continued to complain of nausea he has not had a BM, patient is unable to take lactulose due to nausea, giving him Zofran and Compazine, Doculax suppository and monitor will continue to monitor, pains clinically stable. (2) CHF (congestive heart failure): Qualifiers: Heart failure chronicity: acute Heart failure type: unspecified Qualified Code(s): I50.9 - Heart failure, unspecified Code(s): I50.9 - Heart failure, unspecified Status: Acute Assessment and Plan: Continue diuretics as needed (3) Atrial fibrillation: Qualifiers: Atrial fibrillation type: unspecified Qualified Code(s): I48.91 - Unspecified atrial fibrillation Code(s): I48.91 - Unspecified atrial fibrillation Status: Acute Assessment and Plan: Patient responded to diltiazem push in emergency room Continue to monitor Cardiology consult appreciated (4) Non-small cell carcinoma of lung: Code(s): C34.90 - Malignant neoplasm of unspecified part of unspecified bronchus or lung Status: Acute Assessment and Plan: Follow-up in outpatient setting Patient current cor status is do not resuscitate (5) Coronary artery disease: Code(s): I25.10 - Atherosclerotic heart disease of [place] coronary artery without angina pectoris Status: Acute Assessment and Plan: Chest pain-free (6) ANIA (obstructive sleep apnea): Code(s): G47.33 - Obstructive sleep apnea (adult) (pediatric) Status: Chronic Assessment and Plan: BiPAP at night (7) COPD (chronic obstructive pulmonary disease): Qualifiers: COPD type: unspecified COPD Qualified Code(s): J44.9 - Chronic obstructive pulmonary disease, unspecified Code(s): J44.9 - Chronic obstructive pulmonary disease, unspecified Status: Chronic Assessment and Plan: will decrease steroids. Respiratory status is improving. (8) Atrial fibrillation with controlled ventricular rate: Code(s): I48.91 - Unspecified atrial fibrillation Status: Chronic Assessment and Plan: Continue to monitor Appreciate Cardiology input. (9) Diabetic polyneuropathy associated with type 2 diabetes mellitus: Code(s): E11.42 - Type 2 diabetes mellitus with diabetic polyneuropathy Status: Acute Assessment and Plan: Continue gabapentin (10) Urinary tract infection: Code(s): N39.0 - Urinary tract infection, site not specified Status: Acute Assessment and Plan: Currently on Rocephin Await cultures (11) Lactic acidosis: Code(s): E87.20 - Acidosis, unspecified Status: Acute Assessment and Plan: Monitor (12) Acute on chronic respiratory failure with hypoxia and hypercapnia: Code(s): J96.21 - Acute and chronic respiratory failure with hypoxia; J96.22 - Acute and chronic respiratory failure with hypercapnia Status: Acute Assessment and Plan: BiPAP as needed (13) Leukocytosis: Code(s): D72.829 - Elevated white blood cell count, unspecified Status: Acute Assessment and Plan: likely secondary to prednisone. Monitor. Chest x-ray improved. Subjective Date/time seen: 03/27/23 17:47 Interval history: 03/27/2023 interval history: patient remains clinically stable, patient continued to complain of nausea he has not had a BM, patient is unable to take lactulose due to na
[2023-03-27] MEDS: INSULIN ASPART (*BKC) 100 UNITS/ML SUB-Q (17:55)
[2023-03-27] MEDS: BISACODYL 10 MG SUPPOSITORY RECTAL (18:04)
[2023-03-27 19:46] LABS: Glucose Point of Care 303 mg/dl (65-105)
[2023-03-27] MEDS: TAMSULOSIN HCL 0.4 MG CAPSULE PO (20:45)
[2023-03-27] MEDS: ACETAMINOPHEN 325 MG TABLET 650 MG PO (20:45)
[2023-03-27] MEDS: MIRTAZAPINE 15 MG TABLET PO (20:45)
[2023-03-27] MEDS: rOPINIRole HCL 1 MG TABLET PO (20:45)
[2023-03-27 23:50] LABS: Glucose Point of Care 172 mg/dl (65-105)
[2023-03-28] VITALS (10 sets, daily range): BP systolic 107–140; BP diastolic 63–88; PULSE 83–107; RESP 18–26; TEMP 35.9–37; O2SAT 92–100
[2023-03-28] MEDS: LEVALBUTEROL NEB 1.25 MG/3 ML 0.63 MG INHALATION (02:50)
[2023-03-28] MEDS: IPRATROPIUM BR 0.02% INH SOLN 0.5 MG/2.5 ML VIAL INHALATION (02:51)
[2023-03-28] MEDS: SUCRALFATE 1 GM TABLET PO ×3 (06:15→16:49)
[2023-03-28] MEDS: LEVOTHYROXINE SODIUM 25 MCG TABLET PO (06:15)
[2023-03-28 08:27] LABS: Glucose Point of Care 172 mg/dl (65-105)
[2023-03-28] MEDS: buPROPion HCL XL (24 HR) 150 MG TABCR 300 MG PO (09:15)
[2023-03-28] MEDS: MULTIVITAMINS /C LUTEIN (CENTRUM SILVER) TABLET *BKC 1 TAB PO (09:15)
[2023-03-28] MEDS: BISACODYL 5 MG TABLET EC 10 MG PO (09:16)
[2023-03-28] MEDS: GABAPENTIN 100 MG CAPSULE PO ×3 (09:16→16:48)
[2023-03-28] MEDS: ARIPiprazole 2 MG TABLET 4 MG PO (09:16)
[2023-03-28] MEDS: ASCORBIC ACID 500 MG TABLET PO ×2 (09:16→16:48)
[2023-03-28] MEDS: APIXABAN 5 MG TABLET PO ×2 (09:16→21:43)
[2023-03-28] MEDS: methylPREDNISolone SOD SUCC 125 MG VIAL 60 MG IV PUSH (09:17)
[2023-03-28] MEDS: ONDANSETRON INJ 4 MG/2 ML VIAL IV PUSH (09:20)
[2023-03-28] MEDS: methADONE HCL (*CRX) 5 MG TABLET PO ×2 (09:24→21:43)
[2023-03-28] MEDS: ACETAMINOPHEN 325 MG TABLET 650 MG PO (09:24)
[2023-03-28 09:25] LABS: Hematocrit 43.3 % (42.0-52.0); Hemoglobin 14.3 g/dL (14.0-18.0); Mean Corpuscular Hemoglobin 30.8 pg (26-34); Mean Corpuscular Volume 93.3 fl (80-100); Mean Platelet Volume 10.7 fl (7.4-10.4); Platelet Count Result 160 k/mm3 (150-375); Red Blood Count 4.64 M/mm3 (4.6-6.20); Red Cell Distribution Width 14.5 % (11.5-14.5); White Blood Count 22.4 K/mm3 (4.5-10.0)
--- NOTE | 2023-03-28 11:15 | PC.NURSE ---
This patient, Farhan Armstrong, was transferred to [ [facility]] on 03/28/23 at 1015. Personal belongings sent with patient. Report given to [ Naomy]. Appropriate documentation sent with patient.
--- NOTE | 2023-03-28 11:17 | PC.NURSE ---
message left with son/poa to call back to get patient's new room number.
[2023-03-28 11:50] LABS: Anion Gap 8 mmol/L (8-16); Blood Urea Nitrogen 63 mg/dL (9-20); Calcium 9.1 mg/dL (8.4-10.2); Carbon Dioxide 30 mmol/L (22-30); Chloride 99 mmol/L (98-107); Estimated CRCL calculation 47 ml/min; Estimated Glomerular Filt Rate > 60; Glucose 157 mg/dL (65-110); Magnesium 2.3 mg/dL (1.6-2.3); Potassium 3.6 mmol/L (3.4-5.0); Sodium 137 mmol/L (137-145)
[2023-03-28 11:51] LABS: Glucose Point of Care 203 mg/dl (65-105)
[2023-03-28 16:21] LABS: Glucose Point of Care 256 mg/dl (65-105)
[2023-03-28] MEDS: INSULIN ASPART (*BKC) 100 UNITS/ML SUB-Q (16:47)
[2023-03-28] MEDS: TAMSULOSIN HCL 0.4 MG CAPSULE PO (21:43)
[2023-03-28] MEDS: rOPINIRole HCL 1 MG TABLET PO (21:43)
[2023-03-28] MEDS: MIRTAZAPINE 15 MG TABLET PO (21:43)
[2023-03-28 22:49] LABS: Glucose Point of Care 144 mg/dl (65-105)
[2023-03-29] VITALS (9 sets, daily range): BP systolic 114–117; BP diastolic 69–73; PULSE 55–101; RESP 16–22; TEMP 35.9–36.8; O2SAT 93–98
[2023-03-29] MEDS: LEVOTHYROXINE SODIUM 25 MCG TABLET PO (06:05)
[2023-03-29 08:20] LABS: Glucose Point of Care 117 mg/dl (65-105)
--- NOTE | 2023-03-29 08:54 | PC.NURSE ---
Addendum entered by Haydee Del Angel RN 03/29/23 17:55: pt agreeable to take medications but refusing lactulose Original Note: Pt refusing medications. Stating they are just killing me RN educated pt on medications and their purpose and pt is still refusing. Will continue to monitor and attempt at a later time.
[2023-03-29] MEDS: LEVALBUTEROL NEB 1.25 MG/3 ML 0.63 MG INHALATION ×4 (09:00→20:55)
[2023-03-29] MEDS: IPRATROPIUM BR 0.02% INH SOLN 0.5 MG/2.5 ML VIAL INHALATION ×4 (09:00→20:55)
[2023-03-29] MEDS: buPROPion HCL XL (24 HR) 150 MG TABCR 300 MG PO (10:34)
[2023-03-29] MEDS: GABAPENTIN 100 MG CAPSULE PO ×3 (10:34→17:38)
[2023-03-29] MEDS: methADONE HCL (*CRX) 5 MG TABLET PO ×2 (10:34→22:27)
[2023-03-29] MEDS: APIXABAN 5 MG TABLET PO (10:34)
[2023-03-29] MEDS: BISACODYL 5 MG TABLET EC 10 MG PO (10:34)
[2023-03-29] MEDS: ARIPiprazole 2 MG TABLET 4 MG PO (10:34)
[2023-03-29] MEDS: methylPREDNISolone SOD SUCC 125 MG VIAL 60 MG IV PUSH (10:35)
[2023-03-29 11:58] LABS: Glucose Point of Care 124 mg/dl (65-105)
--- NOTE | 2023-03-29 14:59 | WPDPN ---
Progress Note: A&P Assessment and Plan (1) Respiratory failure: Qualifiers: Chronicity: acute Respiratory failure complication: hypoxia Qualified Code(s): J96.01 - Acute respiratory failure with hypoxia Code(s): J96.90 - Respiratory failure, unspecified, unspecified whether with hypoxia or hypercapnia Status: Acute Assessment and Plan: Admit to IMU BiPAP as needed. Possible pneumonia, continue antibiotics Possible COPD as well. 03/28/2023 interval history: patient remains clinically stable, patient continued to complain of nausea he has not had a BM, patient is unable to take lactulose due to nausea, giving him Zofran and Compazine, Doculax suppository however patient is refusing to take his medications, will ordered KUB, patient stats he is passing gas, will continue to monitor, patient is clinically stable. (2) CHF (congestive heart failure): Qualifiers: Heart failure chronicity: acute Heart failure type: unspecified Qualified Code(s): I50.9 - Heart failure, unspecified Code(s): I50.9 - Heart failure, unspecified Status: Acute Assessment and Plan: Continue diuretics as needed (3) Atrial fibrillation: Qualifiers: Atrial fibrillation type: unspecified Qualified Code(s): I48.91 - Unspecified atrial fibrillation Code(s): I48.91 - Unspecified atrial fibrillation Status: Acute Assessment and Plan: Patient responded to diltiazem push in emergency room Continue to monitor Cardiology consult appreciated (4) Non-small cell carcinoma of lung: Code(s): C34.90 - Malignant neoplasm of unspecified part of unspecified bronchus or lung Status: Acute Assessment and Plan: Follow-up in outpatient setting Patient current cor status is do not resuscitate (5) Coronary artery disease: Code(s): I25.10 - Atherosclerotic heart disease of [place] coronary artery without angina pectoris Status: Acute Assessment and Plan: Chest pain-free (6) ANIA (obstructive sleep apnea): Code(s): G47.33 - Obstructive sleep apnea (adult) (pediatric) Status: Chronic Assessment and Plan: BiPAP at night (7) COPD (chronic obstructive pulmonary disease): Qualifiers: COPD type: unspecified COPD Qualified Code(s): J44.9 - Chronic obstructive pulmonary disease, unspecified Code(s): J44.9 - Chronic obstructive pulmonary disease, unspecified Status: Chronic Assessment and Plan: will decrease steroids. Respiratory status is improving. (8) Atrial fibrillation with controlled ventricular rate: Code(s): I48.91 - Unspecified atrial fibrillation Status: Chronic Assessment and Plan: Continue to monitor Appreciate Cardiology input. (9) Diabetic polyneuropathy associated with type 2 diabetes mellitus: Code(s): E11.42 - Type 2 diabetes mellitus with diabetic polyneuropathy Status: Acute Assessment and Plan: Continue gabapentin (10) Urinary tract infection: Code(s): N39.0 - Urinary tract infection, site not specified Status: Acute Assessment and Plan: Currently on Rocephin Await cultures (11) Lactic acidosis: Code(s): E87.20 - Acidosis, unspecified Status: Acute Assessment and Plan: Monitor (12) Acute on chronic respiratory failure with hypoxia and hypercapnia: Code(s): J96.21 - Acute and chronic respiratory failure with hypoxia; J96.22 - Acute and chronic respiratory failure with hypercapnia Status: Acute Assessment and Plan: BiPAP as needed (13) Leukocytosis: Code(s): D72.829 - Elevated white blood cell count, unspecified Status: Acute Assessment and Plan: likely secondary to prednisone. Monitor. Chest x-ray improved. Subjective Date/time seen: 03/28/23 14:59 Interval history: 03/28/2023 interval history: patient remains clinically stable, patien
--- NOTE | 2023-03-29 15:23 | WPDPN ---
Progress Note: A&P Assessment and Plan (1) Respiratory failure: Qualifiers: Chronicity: acute Respiratory failure complication: hypoxia Qualified Code(s): J96.01 - Acute respiratory failure with hypoxia Code(s): J96.90 - Respiratory failure, unspecified, unspecified whether with hypoxia or hypercapnia Status: Acute Assessment and Plan: Admit to IMU BiPAP as needed. Possible pneumonia, continue antibiotics Possible COPD as well. 03/29/2023 interval history: patient remains clinically stable, patient continued to complain of nausea he has not had a BM, today KUB showed ileus, patient is unable to take lactulose due to nausea, giving him Zofran and Compazine, Doculax suppository however patient was refusing to take his medications, today patient son is present in the room, and patient took his medications, patient stats he is passing gas, will continue to monitor, patient is clinically stable. I did talk to patient son considering comfort measures for the patient. (2) CHF (congestive heart failure): Qualifiers: Heart failure chronicity: acute Heart failure type: unspecified Qualified Code(s): I50.9 - Heart failure, unspecified Code(s): I50.9 - Heart failure, unspecified Status: Acute Assessment and Plan: Continue diuretics as needed (3) Atrial fibrillation: Qualifiers: Atrial fibrillation type: unspecified Qualified Code(s): I48.91 - Unspecified atrial fibrillation Code(s): I48.91 - Unspecified atrial fibrillation Status: Acute Assessment and Plan: Patient responded to diltiazem push in emergency room Continue to monitor Cardiology consult appreciated (4) Non-small cell carcinoma of lung: Code(s): C34.90 - Malignant neoplasm of unspecified part of unspecified bronchus or lung Status: Acute Assessment and Plan: Follow-up in outpatient setting Patient current cor status is do not resuscitate (5) Coronary artery disease: Code(s): I25.10 - Atherosclerotic heart disease of [place] coronary artery without angina pectoris Status: Acute Assessment and Plan: Chest pain-free (6) ANIA (obstructive sleep apnea): Code(s): G47.33 - Obstructive sleep apnea (adult) (pediatric) Status: Chronic Assessment and Plan: BiPAP at night (7) COPD (chronic obstructive pulmonary disease): Qualifiers: COPD type: unspecified COPD Qualified Code(s): J44.9 - Chronic obstructive pulmonary disease, unspecified Code(s): J44.9 - Chronic obstructive pulmonary disease, unspecified Status: Chronic Assessment and Plan: will decrease steroids. Respiratory status is improving. (8) Atrial fibrillation with controlled ventricular rate: Code(s): I48.91 - Unspecified atrial fibrillation Status: Chronic Assessment and Plan: Continue to monitor Appreciate Cardiology input. (9) Diabetic polyneuropathy associated with type 2 diabetes mellitus: Code(s): E11.42 - Type 2 diabetes mellitus with diabetic polyneuropathy Status: Acute Assessment and Plan: Continue gabapentin (10) Urinary tract infection: Code(s): N39.0 - Urinary tract infection, site not specified Status: Acute Assessment and Plan: Currently on Rocephin Await cultures (11) Lactic acidosis: Code(s): E87.20 - Acidosis, unspecified Status: Acute Assessment and Plan: Monitor (12) Acute on chronic respiratory failure with hypoxia and hypercapnia: Code(s): J96.21 - Acute and chronic respiratory failure with hypoxia; J96.22 - Acute and chronic respiratory failure with hypercapnia Status: Acute Assessment and Plan: BiPAP as needed (13) Leukocytosis: Code(s): D72.829 - Elevated white blood cell count, unspecified Status: Acute Assessment and Plan: likely secondary to prednisone. Monitor. Chest x
[2023-03-29 17:10] LABS: Glucose Point of Care 195 mg/dl (65-105)
[2023-03-29] MEDS: ASCORBIC ACID 500 MG TABLET PO (17:36)
[2023-03-29 21:51] LABS: Glucose Point of Care 192 mg/dl (65-105)
[2023-03-29] MEDS: rOPINIRole HCL 1 MG TABLET PO (22:27)
[2023-03-29] MEDS: MIRTAZAPINE 15 MG TABLET PO (22:27)
[2023-03-29] MEDS: TAMSULOSIN HCL 0.4 MG CAPSULE PO (22:27)
[2023-03-30] VITALS (11 sets, daily range): BP systolic 125–135; BP diastolic 76–102; PULSE 97–106; RESP 14–25; TEMP 36.1–36.2; O2SAT 90–94
[2023-03-30] MEDS: LEVALBUTEROL NEB 1.25 MG/3 ML 0.63 MG INHALATION ×5 (02:29→20:10)
[2023-03-30] MEDS: IPRATROPIUM BR 0.02% INH SOLN 0.5 MG/2.5 ML VIAL INHALATION ×5 (02:29→20:10)
[2023-03-30] MEDS: LEVOTHYROXINE SODIUM 25 MCG TABLET PO (06:33)
[2023-03-30 08:11] LABS: Glucose Point of Care 134 mg/dl (65-105)
--- NOTE | 2023-03-30 08:23 | PC.NURSE ---
pt refusing all medications this morning as well as breakfast. nurse encourages to take medication, pt still denies.
[2023-03-30 08:56] LABS: Hematocrit 44.1 % (42.0-52.0); Hemoglobin 14.6 g/dL (14.0-18.0); Mean Corpuscular HGB Conc 33.1 g/dl (32-36); Mean Corpuscular Hemoglobin 31.3 pg (26-34); Mean Corpuscular Volume 94.6 fl (80-100); Mean Platelet Volume 10.4 fl (7.4-10.4); Platelet Count Result 174 k/mm3 (150-375); Red Blood Count 4.66 M/mm3 (4.6-6.20); Red Cell Distribution Width 14.5 % (11.5-14.5); White Blood Count 22.5 K/mm3 (4.5-10.0)
[2023-03-30 09:14] LABS: Anion Gap 4 mmol/L (8-16); Blood Urea Nitrogen 55 mg/dL (9-20); Carbon Dioxide 34 mmol/L (22-30); Chloride 96 mmol/L (98-107); Estimated CRCL calculation 47 ml/min; Estimated Glomerular Filt Rate > 60; Glucose 147 mg/dL (65-110); Magnesium 2.2 mg/dL (1.6-2.3); Potassium 3.4 mmol/L (3.4-5.0); Sodium 134 mmol/L (137-145)
--- NOTE | 2023-03-30 09:32 | PCPTNOTE ---
Patient declines therapy at this time, stating he is not up for it.
[2023-03-30 11:48] LABS: Glucose Point of Care 155 mg/dl (65-105)
--- NOTE | 2023-03-30 12:03 | WPDPN ---
Progress Note: A&P Assessment and Plan (1) Respiratory failure: Qualifiers: Chronicity: acute Respiratory failure complication: hypoxia Qualified Code(s): J96.01 - Acute respiratory failure with hypoxia Code(s): J96.90 - Respiratory failure, unspecified, unspecified whether with hypoxia or hypercapnia Status: Acute Assessment and Plan: Admit to IMU BiPAP as needed. Possible pneumonia, continue antibiotics Possible COPD as well. 03/30/2023 interval history: patient remains clinically stable, patient continued to complain of nausea he has not had a BM, on 03/28 patient had KUB showed ileus, patient is unable to take lactulose due to nausea, giving him Zofran and Compazine, Doculax suppository however patient was refusing to take his medications, on 03/29 patient son was present in the room, and patient took his medications, patient stats he is passing gas, today again patient refused to take his medication, will continue to monitor, patient is clinically stable. on 03/29 I did talk to patient son considering comfort measures for the patient. (2) CHF (congestive heart failure): Qualifiers: Heart failure chronicity: acute Heart failure type: unspecified Qualified Code(s): I50.9 - Heart failure, unspecified Code(s): I50.9 - Heart failure, unspecified Status: Acute Assessment and Plan: Continue diuretics as needed (3) Atrial fibrillation: Qualifiers: Atrial fibrillation type: unspecified Qualified Code(s): I48.91 - Unspecified atrial fibrillation Code(s): I48.91 - Unspecified atrial fibrillation Status: Acute Assessment and Plan: Patient responded to diltiazem push in emergency room Continue to monitor Cardiology consult appreciated (4) Non-small cell carcinoma of lung: Code(s): C34.90 - Malignant neoplasm of unspecified part of unspecified bronchus or lung Status: Acute Assessment and Plan: Follow-up in outpatient setting Patient current cor status is do not resuscitate (5) Coronary artery disease: Code(s): I25.10 - Atherosclerotic heart disease of [place] coronary artery without angina pectoris Status: Acute Assessment and Plan: Chest pain-free (6) ANIA (obstructive sleep apnea): Code(s): G47.33 - Obstructive sleep apnea (adult) (pediatric) Status: Chronic Assessment and Plan: BiPAP at night (7) COPD (chronic obstructive pulmonary disease): Qualifiers: COPD type: unspecified COPD Qualified Code(s): J44.9 - Chronic obstructive pulmonary disease, unspecified Code(s): J44.9 - Chronic obstructive pulmonary disease, unspecified Status: Chronic Assessment and Plan: will decrease steroids. Respiratory status is improving. (8) Atrial fibrillation with controlled ventricular rate: Code(s): I48.91 - Unspecified atrial fibrillation Status: Chronic Assessment and Plan: Continue to monitor Appreciate Cardiology input. (9) Diabetic polyneuropathy associated with type 2 diabetes mellitus: Code(s): E11.42 - Type 2 diabetes mellitus with diabetic polyneuropathy Status: Acute Assessment and Plan: Continue gabapentin (10) Urinary tract infection: Code(s): N39.0 - Urinary tract infection, site not specified Status: Acute Assessment and Plan: Currently on Rocephin Await cultures (11) Lactic acidosis: Code(s): E87.20 - Acidosis, unspecified Status: Acute Assessment and Plan: Monitor (12) Acute on chronic respiratory failure with hypoxia and hypercapnia: Code(s): J96.21 - Acute and chronic respiratory failure with hypoxia; J96.22 - Acute and chronic respiratory failure with hypercapnia Status: Acute Assessment and Plan: BiPAP as needed (13) Leukocytosis: Code(s): D72.829 - Elevated white blood cell count, unspecified Status: Acute
[2023-03-30] MEDS: oxyCODONE HCL (*CRX) 2.5 MG TAB IR PO (13:22)
[2023-03-30] MEDS: ONDANSETRON INJ 4 MG/2 ML VIAL IV PUSH ×2 (13:22→20:38)
[2023-03-30] MEDS: oxyCODONE/ACETAMINOPHEN (*CRX) 5-325 MG TABLET 1 TABLET PO (13:23)
[2023-03-30] MEDS: LACTULOSE 20 GM/30 ML UDC PO (16:36)
[2023-03-30] MEDS: ASCORBIC ACID 500 MG TABLET PO (16:36)
[2023-03-30] MEDS: SUCRALFATE 1 GM TABLET PO (16:36)
[2023-03-30] MEDS: GABAPENTIN 100 MG CAPSULE PO (16:37)
[2023-03-30 17:04] LABS: Glucose Point of Care 154 mg/dl (65-105)
[2023-03-30] MEDS: APIXABAN 5 MG TABLET PO (21:37)
[2023-03-30] MEDS: methADONE HCL (*CRX) 5 MG TABLET PO (21:37)
[2023-03-31] VITALS (8 sets, daily range): BP systolic 92–99; BP diastolic 50–73; PULSE 83–102; RESP 14–30; TEMP 36.1–36.7; O2SAT 93–97
[2023-03-31 06:27] LABS: Hematocrit 40.7 % (42.0-52.0); Hemoglobin 13.4 g/dL (14.0-18.0); Mean Corpuscular HGB Conc 32.9 g/dl (32-36); Mean Corpuscular Hemoglobin 30.8 pg (26-34); Mean Corpuscular Volume 93.6 fl (80-100); Mean Platelet Volume 10.5 fl (7.4-10.4); Platelet Count Result 200 k/mm3 (150-375); Red Blood Count 4.35 M/mm3 (4.6-6.20); Red Cell Distribution Width 14.3 % (11.5-14.5); White Blood Count 22.3 K/mm3 (4.5-10.0)
[2023-03-31 06:38] LABS: Anion Gap 4 mmol/L (8-16); Blood Urea Nitrogen 47 mg/dL (9-20); Calcium 8.8 mg/dL (8.4-10.2); Carbon Dioxide 35 mmol/L (22-30); Chloride 97 mmol/L (98-107); Estimated CRCL calculation 47 ml/min; Estimated Glomerular Filt Rate > 60; Glucose 133 mg/dL (65-110); Magnesium 2.1 mg/dL (1.6-2.3); Potassium 3.5 mmol/L (3.4-5.0); Sodium 136 mmol/L (137-145)
[2023-03-31 08:00] LABS: Glucose Point of Care 129 mg/dl (65-105)
[2023-03-31] MEDS: ARIPiprazole 2 MG TABLET 4 MG PO (08:20)
[2023-03-31] MEDS: MULTIVITAMINS /C LUTEIN (CENTRUM SILVER) TABLET *BKC 1 TAB PO (08:20)
[2023-03-31] MEDS: buPROPion HCL XL (24 HR) 150 MG TABCR 300 MG PO (08:20)
[2023-03-31] MEDS: SUCRALFATE 1 GM TABLET PO (08:21)
[2023-03-31] MEDS: ASCORBIC ACID 500 MG TABLET PO (08:21)
[2023-03-31] MEDS: APIXABAN 5 MG TABLET PO ×2 (08:22→20:41)
[2023-03-31] MEDS: LACTULOSE 20 GM/30 ML UDC PO (08:22)
[2023-03-31] MEDS: GABAPENTIN 100 MG CAPSULE PO (08:24)
[2023-03-31] MEDS: methADONE HCL (*CRX) 5 MG TABLET PO ×2 (08:24→20:43)
[2023-03-31] MEDS: ONDANSETRON INJ 4 MG/2 ML VIAL IV PUSH (08:32)
[2023-03-31] MEDS: methylPREDNISolone SOD SUCC 40 MG VIAL IV PUSH (08:33)
[2023-03-31 11:36] LABS: Glucose Point of Care 169 mg/dl (65-105)
[2023-03-31] MEDS: oxyCODONE/ACETAMINOPHEN (*CRX) 5-325 MG TABLET 1 TABLET PO (12:08)
[2023-03-31] MEDS: oxyCODONE HCL (*CRX) 2.5 MG TAB IR PO (12:08)
--- NOTE | 2023-03-31 13:34 | WPDPN ---
Progress Note: A&P Assessment and Plan (1) Respiratory failure: Qualifiers: Chronicity: acute Respiratory failure complication: hypoxia Qualified Code(s): J96.01 - Acute respiratory failure with hypoxia Code(s): J96.90 - Respiratory failure, unspecified, unspecified whether with hypoxia or hypercapnia Status: Acute Assessment and Plan: Admit to IMU BiPAP as needed. Possible pneumonia, continue antibiotics Possible COPD as well. 03/31/2023 interval history: patient remains clinically stable, patient continued to complain of nausea he has not had a BM, on 03/28 patient had KUB showed ileus, patient is unable to take lactulose due to nausea, giving him Zofran and Compazine, Doculax suppository however patient was refusing to take his medications, on 03/29 patient son was present in the room, and patient took his medications, patient stats he is passing gas, on 02/28 again patient refused to take his medication eventhough his son was present, today patient did take his medication, patient was started on methylprednisone upon for possible COPD, will taper is down to 40mg from 60mg qd, will continue to monitor, patient is clinically stable. on 03/29 I did talk to patient son considering comfort measures for the patient. (2) CHF (congestive heart failure): Qualifiers: Heart failure chronicity: acute Heart failure type: unspecified Qualified Code(s): I50.9 - Heart failure, unspecified Code(s): I50.9 - Heart failure, unspecified Status: Acute Assessment and Plan: Continue diuretics as needed (3) Atrial fibrillation: Qualifiers: Atrial fibrillation type: unspecified Qualified Code(s): I48.91 - Unspecified atrial fibrillation Code(s): I48.91 - Unspecified atrial fibrillation Status: Acute Assessment and Plan: Patient responded to diltiazem push in emergency room Continue to monitor Cardiology consult appreciated (4) Non-small cell carcinoma of lung: Code(s): C34.90 - Malignant neoplasm of unspecified part of unspecified bronchus or lung Status: Acute Assessment and Plan: Follow-up in outpatient setting Patient current cor status is do not resuscitate (5) Coronary artery disease: Code(s): I25.10 - Atherosclerotic heart disease of [place] coronary artery without angina pectoris Status: Acute Assessment and Plan: Chest pain-free (6) ANIA (obstructive sleep apnea): Code(s): G47.33 - Obstructive sleep apnea (adult) (pediatric) Status: Chronic Assessment and Plan: BiPAP at night (7) COPD (chronic obstructive pulmonary disease): Qualifiers: COPD type: unspecified COPD Qualified Code(s): J44.9 - Chronic obstructive pulmonary disease, unspecified Code(s): J44.9 - Chronic obstructive pulmonary disease, unspecified Status: Chronic Assessment and Plan: will decrease steroids. Respiratory status is improving. (8) Atrial fibrillation with controlled ventricular rate: Code(s): I48.91 - Unspecified atrial fibrillation Status: Chronic Assessment and Plan: Continue to monitor Appreciate Cardiology input. (9) Diabetic polyneuropathy associated with type 2 diabetes mellitus: Code(s): E11.42 - Type 2 diabetes mellitus with diabetic polyneuropathy Status: Acute Assessment and Plan: Continue gabapentin (10) Urinary tract infection: Code(s): N39.0 - Urinary tract infection, site not specified Status: Acute Assessment and Plan: Currently on Rocephin Await cultures (11) Lactic acidosis: Code(s): E87.20 - Acidosis, unspecified Status: Acute Assessment and Plan: Monitor (12) Acute on chronic respiratory failure with hypoxia and hypercapnia: Code(s): J96.21 - Acute and chronic respiratory failure with hypoxia; J96.22 - Acute and chronic respiratory failure with hypercapnia
[2023-03-31] MEDS: IPRATROPIUM BR 0.02% INH SOLN 0.5 MG/2.5 ML VIAL INHALATION ×2 (14:45→19:55)
[2023-03-31] MEDS: LEVALBUTEROL NEB 1.25 MG/3 ML 0.63 MG INHALATION ×2 (14:45→19:54)
[2023-03-31] MEDS: ACETAMINOPHEN 325 MG TABLET 650 MG PO (15:40)
[2023-03-31 16:36] LABS: Glucose Point of Care 249 mg/dl (65-105)
[2023-03-31 20:40] LABS: Glucose Point of Care 195 mg/dl (65-105)
[2023-03-31] MEDS: rOPINIRole HCL 1 MG TABLET PO (20:41)
[2023-03-31] MEDS: TAMSULOSIN HCL 0.4 MG CAPSULE PO (20:41)
[2023-03-31] MEDS: MIRTAZAPINE 15 MG TABLET PO (20:41)
[2023-04-01] VITALS (15 sets, daily range): BP systolic 90–109; BP diastolic 56–65; PULSE 68–96; RESP 14–20; TEMP 35.9–36.2; O2SAT 90–100
[2023-04-01] MEDS: LEVALBUTEROL NEB 1.25 MG/3 ML 0.63 MG INHALATION ×4 (01:50→21:22)
[2023-04-01] MEDS: IPRATROPIUM BR 0.02% INH SOLN 0.5 MG/2.5 ML VIAL INHALATION ×4 (01:51→21:22)
[2023-04-01] MEDS: LEVOTHYROXINE SODIUM 25 MCG TABLET PO (05:34)
[2023-04-01] MEDS: oxyCODONE/ACETAMINOPHEN (*CRX) 5-325 MG TABLET 1 TABLET PO (06:32)
[2023-04-01] MEDS: oxyCODONE HCL (*CRX) 2.5 MG TAB IR PO (06:32)
[2023-04-01 06:40] LABS: Hematocrit 36.9 % (42.0-52.0); Hemoglobin 11.9 g/dL (14.0-18.0); Mean Corpuscular HGB Conc 32.2 g/dl (32-36); Mean Corpuscular Hemoglobin 30.6 pg (26-34); Mean Corpuscular Volume 94.9 fl (80-100); Mean Platelet Volume 10.5 fl (7.4-10.4); Platelet Count Result 171 k/mm3 (150-375); Red Blood Count 3.89 M/mm3 (4.6-6.20); Red Cell Distribution Width 14.2 % (11.5-14.5); White Blood Count 23.5 K/mm3 (4.5-10.0)
[2023-04-01 06:51] LABS: Anion Gap 5 mmol/L (8-16); Blood Urea Nitrogen 45 mg/dL (9-20); Calcium 8.2 mg/dL (8.4-10.2); Carbon Dioxide 31 mmol/L (22-30); Chloride 97 mmol/L (98-107); Estimated CRCL calculation 51 ml/min; Estimated Glomerular Filt Rate > 60; Glucose 125 mg/dL (65-110); Magnesium 2.2 mg/dL (1.6-2.3); Potassium 3.2 mmol/L (3.4-5.0); Sodium 133 mmol/L (137-145)
[2023-04-01] MEDS: APIXABAN 5 MG TABLET PO ×2 (08:04→20:40)
[2023-04-01] MEDS: ARIPiprazole 2 MG TABLET 4 MG PO (08:04)
[2023-04-01] MEDS: methylPREDNISolone SOD SUCC 40 MG VIAL IV PUSH (08:05)
[2023-04-01] MEDS: buPROPion HCL XL (24 HR) 150 MG TABCR 300 MG PO (08:05)
[2023-04-01] MEDS: GABAPENTIN 100 MG CAPSULE PO ×3 (08:09→16:45)
[2023-04-01] MEDS: polyethylene glycoL 3350 17 GM POWD.PACK PO (08:09)
[2023-04-01] MEDS: methADONE HCL (*CRX) 5 MG TABLET PO ×2 (08:09→20:40)
[2023-04-01 08:23] LABS: Glucose Point of Care 118 mg/dl (65-105)
[2023-04-01 12:01] LABS: Glucose Point of Care 160 mg/dl (65-105)
[2023-04-01] MEDS: LACTULOSE 20 GM/30 ML UDC PO ×2 (13:01→16:44)
--- NOTE | 2023-04-01 16:29 | PM.DS ---
DS: Admitting Diagnosis Discharge Date 04/01/2023 Admitting Diagnosis Shortness of breath DS: Discharge Diagnosis Discharge Diagnosis (1) Respiratory failure: Qualifiers: Chronicity: acute Respiratory failure complication: hypoxia Qualified Code(s): J96.01 - Acute respiratory failure with hypoxia Code(s): J96.90 - Respiratory failure, unspecified, unspecified whether with hypoxia or hypercapnia Status: Acute Assessment and Plan: Admit to IMU BiPAP as needed. Possible pneumonia, continue antibiotics Possible COPD as well. 03/31/2023 interval history: patient remains clinically stable, patient continued to complain of nausea he has not had a BM, on 03/28 patient had KUB showed ileus, patient is unable to take lactulose due to nausea, giving him Zofran and Compazine, Doculax suppository however patient was refusing to take his medications, on 03/29 patient son was present in the room, and patient took his medications, patient stats he is passing gas, on 02/28 again patient refused to take his medication eventhough his son was present, today patient did take his medication, patient was started on methylprednisone upon for possible COPD, will taper is down to 40mg from 60mg qd, will continue to monitor, patient is clinically stable. on 03/29 I did talk to patient son considering comfort measures for the patient. (2) CHF (congestive heart failure): Qualifiers: Heart failure chronicity: acute Heart failure type: unspecified Qualified Code(s): I50.9 - Heart failure, unspecified Code(s): I50.9 - Heart failure, unspecified Status: Acute Assessment and Plan: Continue diuretics as needed (3) Atrial fibrillation: Qualifiers: Atrial fibrillation type: unspecified Qualified Code(s): I48.91 - Unspecified atrial fibrillation Code(s): I48.91 - Unspecified atrial fibrillation Status: Acute Assessment and Plan: Patient responded to diltiazem push in emergency room Continue to monitor Cardiology consult appreciated (4) Non-small cell carcinoma of lung: Code(s): C34.90 - Malignant neoplasm of unspecified part of unspecified bronchus or lung Status: Acute Assessment and Plan: Follow-up in outpatient setting Patient current cor status is do not resuscitate (5) Coronary artery disease: Code(s): I25.10 - Atherosclerotic heart disease of [place] coronary artery without angina pectoris Status: Acute Assessment and Plan: Chest pain-free (6) ANIA (obstructive sleep apnea): Code(s): G47.33 - Obstructive sleep apnea (adult) (pediatric) Status: Chronic Assessment and Plan: BiPAP at night (7) COPD (chronic obstructive pulmonary disease): Qualifiers: COPD type: unspecified COPD Qualified Code(s): J44.9 - Chronic obstructive pulmonary disease, unspecified Code(s): J44.9 - Chronic obstructive pulmonary disease, unspecified Status: Chronic Assessment and Plan: will decrease steroids. Respiratory status is improving. (8) Atrial fibrillation with controlled ventricular rate: Code(s): I48.91 - Unspecified atrial fibrillation Status: Chronic Assessment and Plan: Continue to monitor Appreciate Cardiology input. (9) Diabetic polyneuropathy associated with type 2 diabetes mellitus: Code(s): E11.42 - Type 2 diabetes mellitus with diabetic polyneuropathy Status: Acute Assessment and Plan: Continue gabapentin (10) Urinary tract infection: Code(s): N39.0 - Urinary tract infection, site not specified Status: Acute Assessment and Plan: Currently on Rocephin Await cultures (11) Lactic acidosis: Code(s): E87.20 - Acidosis, unspecified Status: Acute Assessment and Plan: Monitor (12) Acute on chronic respiratory failure with hypoxia and hypercapnia: Code(s): J96.21 - Acute and chronic
[2023-04-01] MEDS: ASCORBIC ACID 500 MG TABLET PO (16:44)
[2023-04-01 16:49] LABS: EDCOVIDSCREEN Negative (Negative)
[2023-04-01 17:16] LABS: Glucose Point of Care 216 mg/dl (65-105)
[2023-04-01] MEDS: MIRTAZAPINE 15 MG TABLET PO (20:40)
[2023-04-01] MEDS: rOPINIRole HCL 1 MG TABLET PO (20:41)
[2023-04-01] MEDS: TAMSULOSIN HCL 0.4 MG CAPSULE PO (20:41)
== END 2023-04-01 22:10 | DRG 189 ==
LOC: ANHED 22:05 → ANHIMU 23:59 → ANH3MEDSUR 03-28 10:43
PROVIDERS: Chiropractor; Admitting Provider Internal Medicine; Emergency Provider Emergency Medicine; PCP Internal Medicine; Visit Provider Family Medicine
DX: J96.21 Acute and chronic respiratory failure with hypoxia (principal); J18.9 Pneumonia, unspecified organism; I50.33 Acute on chronic diastolic (congestive) heart failure; J44.0 Chronic obstructive pulmonary disease with (acute) lower respiratory infection; E87.21 Acute metabolic acidosis; N39.0 Urinary tract infection, site not specified; I48.20 Chronic atrial fibrillation, unspecified; C34.90 Malignant neoplasm of unspecified part of unspecified bronchus or lung; K56.0 Paralytic ileus; J96.22 Acute and chronic respiratory failure with hypercapnia; D72.828 Other elevated white blood cell count; T38.0X5A Adverse effect of glucocorticoids and synthetic analogues, initial encounter; N40.0 Benign prostatic hyperplasia without lower urinary tract symptoms; I25.10 Atherosclerotic heart disease of native coronary artery without angina pectoris; Z20.822 Contact with and (suspected) exposure to COVID-19; E11.42 Type 2 diabetes mellitus with diabetic polyneuropathy; Z66 Do not resuscitate; M19.90 Unspecified osteoarthritis, unspecified site; G25.81 Restless legs syndrome; G47.33 Obstructive sleep apnea (adult) (pediatric); E78.2 Mixed hyperlipidemia; I35.0 Nonrheumatic aortic (valve) stenosis; M79.7 Fibromyalgia; Z79.82 Long term (current) use of aspirin; I25.2 Old myocardial infarction; Z87.891 Personal history of nicotine dependence
CPT/HCPCS: 36415; 36600; 71045; 71250; 74018; 80048; 80053; 81001; 82550; 82805; 82948; 83605; 83735; 83880; 84484; 85025; 85027; 85610; 85730; 87040; 87086; 87088; 87426; 93005; 94002; 94003; 94640; 94660; 96374; 96375; 97161; 97165; 99285; A9270; C8929; C9803; J0456; J0696; J0780; J1815; J1940; J2405; J2920; J2930; J3250; J7050; Q9957

== ENCOUNTER 2023-07-23 14:50 | Inpatient (IN) | payer MEDICARE, MEDICAID, SELFPAY ==
--- NOTE | ~2023-07-23 | XR_ITS ---
CORRECTED REPORT exam description [facility] 07/30/23 This report was recreated on 07/30/23. Original report was Upright portable view of the abdomen Clinical history: NG tube placement Findings: NG tube is curled back upon itself at the GE junction region, with tip directed superiorly in the distal esophagus. Bowel gas pattern is relatively nonspecific. No abnormal mass lesion or calcification is seen. Osseous structures are intact. Impression: NG tube tip is curled back upon itself in the GE junction with tip directed superiorly in the distal esophagus. Repositioning/replacement of NG tube is required. Reviewed, dictated and finalized at location M. MTDD Impression: NG tube tip is curled back upon itself in the GE junction with tip directed sup eriorly in the distal esophagus. Repositioning/replacement of NG tube is requir ed.
--- NOTE | ~2023-07-23 | XR_ITS ---
XR chest 1V portable DATE: 07/27/2023 06:07 INDICATION: Right upper lobe collapse TECHNIQUE: Portable upright AP chest on 07/27/2023 at 0542 hours COMPARISON: 07/26/2023 portable AP chest at 0532 hours 07/23/2023 CT chest FINDINGS: Right upper lobe opacification due to atelectasis/consolidation persists unchanged since 07/26/2023. No infiltrate or consolidation of the lungs is noted otherwise. Minimal blunting of the right costoph renic angle; cannot exclude minimal right pleural effusion. Heart size is normal. Aortic calcification and mild unfolding. Right internal jugular Port-A-Cath catheter, distal catheter tip overlying superior vena cava near desouza perior cavoatrial junction. IMPRESSION: Persistent right upper lobe atelectasis/consolidation Reviewed, dictated and finalized at location A.
--- NOTE | ~2023-07-23 | XR_ITS ---
Portable chest x-ray Comparison: 07/27/2023 Clinical History: Pneumonia Findings: NG tube present, tip coiled upon itself in the distal esophagus. Stable dense right consoli dation, likely right upper lobe collapse. Right-sided Mediport remains in place. Mild haziness left l bernadette base present. Cardiomediastinal silhouette is stable. Bones and soft tissues are unremarkable. Impression: NG tube is coiled upon itself in the distal esophagus. Removal/replacement required to ensure NG tube side-port placement below the diaphragm. Stable probable right upper lobe collapse. Mild left lower lobe haziness, nonspecific. Correlate for pneumonia. Reviewed, dictated and finalized at location M. Impression: NG tube is coiled upon itself in the distal esophagus. Removal/replacement requ ired to ensure NG tube side-port placement below the diaphragm. Stable probable right upper lobe collapse. Mild left lower lobe haziness, nonspecific. Correlate for pneumonia.
--- NOTE | ~2023-07-23 | CT_ITS ---
EXAMINATION: CT abdomen pelvis wo con DATE: 07/25/2023 13:09 INDICATION: Abdominal pain. TECHNIQUE: Computed tomography (CT) of the abdomen and pelvis was performed without intravenous contr ast. Automated exposure control and iterative reconstruction technique were employed. The dose-length product was 776.32 mGy-cm. COMPARISON: CT abdomen and pelvis 10/16/2022 FINDINGS: The visualized portions of the lung bases demonstrate mild atelectasis and mild chronic margareth g disease. There are calcified pleural plaques bilaterally, which may be seen with asbestos exposure. Calcified right lung nodules are consistent with old granulomatous disease. No pleural effusion. The heart size is normal. There is a small pericardial effusion. There are coronary artery calcification s. There are calcifications of the aortic valve. The liver is normal. There are gallstones in the gal lbladder, which is normal in size. Calcifications in the spleen are consistent with old granulomatous disease. The pancreas, adrenal glands, and kidneys are normal. There is calcified atherosclerosis of the aorta and many of the other arteries. The bladder is decompressed by a Barnard catheter. There are stones in the bladder measuring up to 7 mm. There is a small left inguinal hernia containing fat. Th e appendix is normal. There is a large volume of stool in the colon. There is distention of the recto sigmoid with surrounding fat stranding, consistent with stercoral colitis. There are no pathologicall y enlarged lymph nodes. There is no free intraperitoneal fluid. There is mild thoracic spondylosis an d severe lumbar spondylosis. There is a chronic sacral decubitus ulcer. There are erosions of the kimberlyn cyx, consistent with osteomyelitis. IMPRESSION: 1. Large volume of stool in the colon with stercoral colitis. 2. 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 3. Small pericardial effusion. Reviewed, dictated and finalized at location E.
--- NOTE | ~2023-07-23 | XR_ITS ---
EXAMINATION: XR chest 1V portable INDICATION: Pneumonia TECHNIQUE: Portable AP chest at 1043 hours COMPARISON: 07/23/2023 FINDINGS: There is persistent complete collapse of the right upper lobe. The lungs otherwise demonstr ate mild atelectasis. A right internal jugular Port-A-Cath ends with its tip in the distal superior v carmen cava. No pleural effusion or pneumothorax. The cardiomediastinal silhouette is normal. IMPRESSION: 1. Persistent complete collapse of the right upper lobe, consistent with pneumonia. Postobstructive e tiology not excluded. Reviewed, dictated and finalized at location B. IMPRESSION: 1. Persistent complete collapse of the right upper lobe, consistent with pneumo estee. Postobstructive etiology not excluded.
--- NOTE | ~2023-07-23 | XR_ITS ---
EXAMINATION: XR chest 1V DATE: 08/01/2023 10:47 INDICATION: Pneumonia. TECHNIQUE: A single frontal view of the chest was obtained. COMPARISON: Chest single view 07/29/2023, chest CT 07/23/2023, 01/04/2022, 03/23/2023 FINDINGS: There is complete opacification of right upper lobe with volume loss. There are calcified p leural plaques on the right. There are airspace opacities in left lower lung zone. No pleural effusio n or pneumothorax. The heart size is normal. There is a right internal jugular port with tip at super ior cavoatrial junction. IMPRESSION: 1. Airspace opacities in left lower lobe with worsening from 07/29/2023, consistent with pneumonia. 2. Stable right upper lobe collapse. Reviewed, dictated and finalized at location A. IMPRESSION: 1. Airspace opacities in left lower lobe with worsening from 07/29/2023, consist ent with pneumonia. 2. Stable right upper lobe collapse.
--- NOTE | ~2023-07-23 | CT_ITS ---
EXAMINATION: CT diagnostic chest wo con DATE: 07/23/2023 17:16 INDICATION: RUL pneumonia, hx lung cancer TECHNIQUE: Computed tomography (CT) of the chest was performed with 100 mL Omnipaque-350 intravenous contrast. Automated exposure control and iterative reconstruction technique were employed. The dose-l ength product was 416.14 mGy-cm. COMPARISON: X-ray chest, same date; CT chest 03/23/2023. FINDINGS: CHEST: Thoracic aorta: Moderate arch calcification. Mild ectasia. Lung parenchyma and airways: Opacification of the right upper lobe. Abrupt cut off of subsegmental up per lobe bronchi. No definite obstructing mass or endobronchial lesion detected in this noncontrast e xamination. Senescent/emphysematous change. Bibasilar scar. Thoracic inlet, axillae and chest wall: No thyroid or soft tissue mass. No axillary lymphadenopathy. Right chest implanted port terminating at the cavoatrial junction. Bilateral gynecomastia. Mediastinum: No mass or lymphadenopathy. Heart and pericardium: Normal heart size. Small volume pericardial fluid. Aortic valve calcification. Coronary artery calcifications: Moderate. Pleura: Right posterior pleural calcified plaque. Upper abdomen: No significant finding. Thoracic bones: No acute osseous finding in the chest. IMPRESSION: Right upper lobe consolidation, may reflect pneumonia in the appropriate clinical context. Mucous plu gging, endobronchial lesion, or postobstructive pneumonia should remain in the differential. Small volume pericardial effusion. Reviewed, dictated and finalized at location K. IMPRESSION: Right upper lobe consolidation, may reflect pneumonia in the appropriate clinic al context. Mucous plugging, endobronchial lesion, or postobstructive pneumonia should remain in the differential. Small volume pericardial effusion.
--- NOTE | ~2023-07-23 | XR_ITS ---
EXAMINATION: XR barium swallow modified DATE: 08/01/2023 10:47 INDICATION: Dysphagia. TECHNIQUE: The patient was given barium-containing material of multiple consistencies to swallow by t he speech pathologist while I performed fluoroscopy. Fluoroscopy exposure time was 1.1 minutes. The n umber of fluoroscopy images saved to the PACS was 1. Dose-area product was 0.976 Gy-cm^2. FINDINGS: There is mild reduced tongue base retraction. No laryngeal penetration or aspiration. IMPRESSION: 1. No laryngeal penetration or aspiration. 2. Please refer to the speech therapy report for recommendations. Reviewed, dictated and finalized at location A.
--- NOTE | ~2023-07-23 | XR_ITS ---
CORRECTED REPORT exam description [facility] [place] This report was recreated on 07/30/23. Original report was Supine and upright views of the abdomen Clinical history: NG tube placement. NG tube was reportedly pulled following acquisition of the image. Findings: Distal portion NG tube is present in the right lower lobe, within the tracheobronchial tree. Bowel gas pattern is nonspecific common gaseous distention of stomach. No evidence for obstruction or free air. No abnormal mass lesion or calcification is seen. Osseous structures are intact. Impression: NG tube in the tracheobronchial tree, tip in the right lower lobe. Removal is required. Reviewed, dictated and finalized at location M. MTDD Impression: NG tube in the tracheobronchial tree, tip in the right lower lobe. Removal is r equired.
--- NOTE | ~2023-07-23 | XR_ITS ---
Upright portable view of the abdomen Clinical history: NG tube placement Findings: NG tube is in satisfactory position. Bowel gas pattern is unchanged from prior exams. No ab normal mass lesion or calcification is seen. Osseous structures are intact. Impression: NG tube in satisfactory position. Reviewed, dictated and finalized at location . Impression: NG tube in satisfactory position.
--- NOTE | ~2023-07-23 | XR_ITS ---
EXAMINATION: XR chest 1V portable DATE: 08/09/2023 13:38 INDICATION: Prebronchoscopy chest radiograph TECHNIQUE: frontal view of the chest was obtained. COMPARISON: Chest radiograph dated 08/02/2023 FINDINGS: Right internal jugular central venous port catheter with distal tip at the caudal superior vena cava. Consolidation with some volume loss in the right upper lung zone with elevation of right minor fissu re and rightward deviation of the trachea. Mild linear and streaky opacities in the bilateral lower l bernadette zones and favor atelectasis over pneumonia. No pleural effusion or pneumothorax. Heart size is no rmal. IMPRESSION: 1. Stable right upper lobe collapse. 2. Mild opacities in bilateral lower lung zones and favor atelectasis over pneumonia. Reviewed, dictated and finalized at location A. IMPRESSION: 1. Stable right upper lobe collapse. 2. Mild opacities in bilateral lower lung zones and favor atelectasis over pneu monia.
--- NOTE | ~2023-07-23 | XR_ITS ---
EXAMINATION: XR chest 2V DATE: 07/23/2023 16:00 INDICATION: Pneumonia TECHNIQUE: frontal and lateral views of the chest were obtained. COMPARISON: Chest radiograph dated 03/26/2023 FINDINGS: Right internal jugular central venous catheter with distal tip near the superior cavoatrial junction. New complete consolidation of the right upper lobe without appreciable associated volume loss consis tent with likely lobar pneumonia. Remainder of the lungs are clear with no other airspace opacities, pulmonary edema, pleural effusion or pneumothorax. Heart size is normal. Mild thoracic spondylosis. IMPRESSION: 1. Complete consolidation of the right upper lobe which is concerning for pneumonia. Reviewed, dictated and finalized at location A. IMPRESSION: 1. Complete consolidation of the right upper lobe which is concerning for pneum onia.
--- NOTE | ~2023-07-23 | XR_ITS ---
XR abdomen/kub 1V 08/02/2023 10:37 INDICATION: Fecal impaction TECHNIQUE: KUB COMPARISON: Comparison to multiple prior studies sequentially, with oldest reviewed study dated 03/28. FINDINGS: Bowel gas pattern is normal. Moderate colonic fecal loading. There is retained radiodensiti es in the right colon, consistent with ingested bowel content. Moderate lumbar spondylosis with levos coliosis. There is no evidence of free air, mass, organomegaly, ascites or obstruction. No abnormal calculi are seen. The bones appear intact. IMPRESSION: 1: No acute abdominal abnormality identified. Reviewed, dictated and finalized at location B.
--- NOTE | ~2023-07-23 | XR_ITS ---
EXAMINATION: XR chest 1V portable INDICATION: Right upper lobe collapse TECHNIQUE: Portable AP chest at 1123 hours COMPARISON: 07/24/2023 FINDINGS: There is persistent complete collapse of the right upper lobe. The lungs are otherwise free of acute opacities. No pleural effusion or pneumothorax. A right internal jugular Port-A-Cath ends w ith its tip in the distal superior vena cava. The cardiomediastinal silhouette is normal. IMPRESSION: 1. Persistent complete right upper lobe collapse. Reviewed, dictated and finalized at location L.
--- NOTE | ~2023-07-23 | XR_ITS ---
EXAMINATION: XR abdomen/kub 1V DATE: 08/01/2023 15:57 INDICATION: Distended colon. TECHNIQUE: A supine view of the abdomen on 2 radiographs was obtained. COMPARISON: Abdomen radiographs 08/29/2023, CT abdomen and pelvis 06/09 FINDINGS: The colon is distended. There is a moderate volume of stool in the colon including prominen t stool in the rectum. The small bowel is normal in caliber. IMPRESSION: 1. Distended colon with moderate volume of stool, likely impaction. Reviewed, dictated and finalized at location A.
--- NOTE | ~2023-07-23 | XR_ITS ---
EXAMINATION: XR abdomen obstructive series DATE: 07/30/2023 09:49 INDICATION: Abdominal distention. TECHNIQUE: Upright and supine views of the abdomen were obtained. COMPARISON: CT abdomen and pelvis 07/25/2023 FINDINGS: There is a large volume of stool in the colon. Stool distends the rectum. The small bowel i s normal in caliber. There is gaseous distention of the stomach. No free intraperitoneal gas. IMPRESSION: 1. Large volume of stool in the colon with distention of the rectum. Reviewed, dictated and finalized at location A.
--- NOTE | ~2023-07-23 | XR_ITS ---
Portable chest x-ray Comparison: 07/25/2023 Clinical History: Pneumonia Findings: Right-sided Mediport is unchanged. Right upper lobe consolidation is unchanged. There is m ild haziness/interstitial prominence the lung bases. Cardiomediastinal silhouette is stable. Bones a nd soft tissues are unremarkable. Impression: Stable right upper lobe consolidation, suggestive of right upper lobe collapse, versus pneumonia. Right-sided Mediport unchanged. Minimal bibasilar haziness, nonspecific. Reviewed, dictated and finalized at location M. Impression: Stable right upper lobe consolidation, suggestive of right upper lobe collapse, versus pneumonia. Right-sided Mediport unchanged. Minimal bibasilar haziness, nonspecific.
--- NOTE | ~2023-07-23 | XR_ITS ---
EXAMINATION: XR abdomen/kub 1V DATE: 07/25/2023 11:54 INDICATION: Abdominal pain TECHNIQUE: A supine view of the abdomen on 2 radiographs was obtained. COMPARISON: 03/28/2023 FINDINGS: Multiple gas-filled but not frankly dilated loops of small bowel throughout the abdomen and pelvis. M oderate 2 large amount of stool scattered throughout the colon including prominent ball of stool at r ectum which could be seen with constipation. Mild lumbar levorotoscoliosis with moderate spondylosis. Mild elevation the left hemidiaphragm and eventration along the right hemidiaphragm. Persistent cons olidation in the right upper lobe. Calcified right hilar lymph nodes consistent with old granulomatou s disease. Heart size is normal. Central venous catheter tip near the superior cavoatrial junction. A therosclerotic aorta. IMPRESSION: 1. Moderate to large amount of colonic stool which could be seen with constipation. 2. Multiple gas-filled but not frankly dilated loops of small bowel throughout the abdomen and pelvis is nonspecific but which could be seen with an ileus. Reviewed, dictated and finalized at location A. IMPRESSION: 1. Moderate to large amount of colonic stool which could be seen with constipat ion. 2. Multiple gas-filled but not frankly dilated loops of small bowel throughout the abdomen and pelvis is nonspecific but which could be seen with an ileus.
--- NOTE | ~2023-07-23 | XR_ITS ---
XR chest 1V portable 08/12/2023 08:54 Indication: Right upper lobe collapse Procedure: AP portable chest Comparison: Comparison to multiple prior studies sequentially, with oldest reviewed study dated 07/29. Findings: Portacatheter tip in the SVC. There is right internal jugular portacatheter tip in the SVC. Heart size normal. Bibasilar infiltrates may represent atelectasis or less likely pneumonia. Chronic right upper lobe consolidation. Impression: 1: Stable chronic right upper lobe opacification. Bibasilar infiltrates may represent atelectasis and /or pneumonia. Reviewed, dictated and finalized at location B. Impression: 1: Stable chronic right upper lobe opacification. Bibasilar infiltrates may rep resent atelectasis and/or pneumonia.
--- NOTE | ~2023-07-23 | XR_ITS ---
EXAMINATION: XR chest 1V portable INDICATION: Shortness of breath TECHNIQUE: Portable AP chest at 1854 hours COMPARISON: 08/01/2023 FINDINGS: There is persistent complete opacification of the right upper lobe with volume loss. There are diffuse opacities of the left lung with interval increase. No pleural effusion or pneumothorax. T he heart size is normal. And a right internal jugular Port-A-Cath ends with its tip at the superior c avoatrial junction. IMPRESSION: 1. Worsened diffuse lung disease on the left, consistent with pneumonia and/or pulmonary edema. 2. Persistent right upper lobe collapse. Reviewed, dictated and finalized at location F.
--- NOTE | 2023-07-23 15:04 | ECG_ITS ---
Measurements Intervals [place] Rate: 79 P: 98 AR: 181 QRS: 37 QRSD: 94 T: 51 QT: 379 QTc: 436 Interpretive Statements SINUS RHYTHM BASELINE ARTIFACT- I, II, III, AVR, AVL, AVF, V1-V3 NORMAL ECG COMPARED TO ECG 03/23/2023 02:13:21 SINUS RHYTHM NOW PRESENT Electronically Signed On 07-23-2023 16:38:09 CDT by Trell Walters D.O.
[2023-07-23 15:05] VITALS: BP 124/69; PULSE 89; RESP 18; TEMP 36.8; O2SAT 95
[2023-07-23 15:33] LABS: Basophils Percent Auto 0.4 % (0.2-1.2); Eosinophils Absolute Auto 0.2 K/mm3 (0-0.3); Eosinophils Percent Auto 3.4 % (0-4.4); Hematocrit 36.9 % (42.0-52.0); Hemoglobin 11.9 g/dL (14.0-18.0); Immature Granulocyte Absolute 0.01 K/mm3 (0.00-0.031); Immature Granulocyte Percent A 0.2 % (0-0.5); Lymphocytes Absolute Auto 0.78 K/mm3 (0.9-3.2); Lymphocytes Percent Auto 16.5 % (18.3-44.2); Mean Corpuscular HGB Conc 32.2 g/dl (32-36); Mean Corpuscular Hemoglobin 29.5 pg (26-34); Mean Corpuscular Volume 91.3 fl (80-100); Mean Platelet Volume 10.2 fl (7.4-10.4); Monocytes Absolute Auto 0.5 K/mm3 (0.1-0.6); Monocytes Percent Auto 10.8 % (2.6-8.5); Neutrophils Absolute Auto 3.3 K/mm3 (1.3-6.7); Neutrophils Percent Auto 68.7 % (45.5-73.1); Platelet Count Result 114 k/mm3 (150-375); Red Blood Count 4.04 M/mm3 (4.6-6.20); Red Cell Distribution Width 15.1 % (11.5-14.5); White Blood Count 4.7 K/mm3 (4.5-10.0)
[2023-07-23 15:44] LABS: Alanine Aminotransferase 12 U/L (6-50); Albumin Level 2.8 g/dL (3.5-5.1); Alkaline Phosphatase 61 U/L (38-126); Anion Gap 5 mmol/L (8-16); Aspartate Amino Transferase 18 U/L (17-59); Bilirubin,Total 0.1 mg/dL (0.2-1.3); Blood Urea Nitrogen 22 mg/dL (9-20); Calcium 7.9 mg/dL (8.4-10.2); Carbon Dioxide 28 mmol/L (22-30); Chloride 106 mmol/L (98-107); Estimated Glomerular Filt Rate > 60; Glucose 115 mg/dL (65-110); Potassium 3.8 mmol/L (3.4-5.0); Sodium 139 mmol/L (137-145)
[2023-07-23 16:00] VITALS: BP 135/78; PULSE 80; RESP 16; O2SAT 95
--- NOTE | 2023-07-23 16:46 | ED.SOB ---
HPI - SOB/Dyspnea General Chief Complaint: Shortness of Breath/Dyspnea Stated Complaint: unknown Time Seen by Provider: 07/23/23 15:56 History of Present Illness HPI Narrative: This is a 77-year-old male, with past history of A-fib on Eliquis, COPD, type 2 diabetes, [facility]. The patient states he has had intermittent episodes of nonbloody cough over the past 3 days associated with generalized fatigue. He denies chest pain or loss of consciousness. Related Data Home Medications Medication Instructions Recorded Confirmed aspirin 81 mg tablet,delayed 81 mg PO DAILY 11/06/19 03/23/23 release ropinirole 1 mg tablet 1 mg PO HS 12/18/19 03/23/23 bupropion HCl 300 mg 24 hr tablet, 300 mg PO DAILY 03/09/21 03/23/23 extended release spironolactone 25 mg tablet 25 mg PO DAILY 03/09/21 03/23/23 tamsulosin 0.4 mg capsule 0.4 mg PO HS 02/26/22 03/23/23 albuterol sulfate 90 mcg/actuation 1 puff inhalation Q4H PRN 07/27/22 03/23/23 aerosol inhaler Shortness Of Breath furosemide 40 mg tablet 60 mg PO BID 08/10/22 03/23/23 levothyroxine 50 mcg tablet 25 mcg PO DAILY 08/10/22 03/23/23 ondansetron 8 mg disintegrating 8 mg PO Q8H PRN Nausea 08/10/22 03/23/23 tablet Pro-Stat Sugar Free 30 ml PO DAILY 03/23/23 03/23/23 acetaminophen 325 mg tablet 650 mg PO Q6H PRN Pain, Mild 03/23/23 03/23/23 ascorbic acid (vitamin C) 500 mg 500 mg PO BID 03/23/23 03/23/23 tablet bisacodyl 5 mg tablet,delayed 10 mg PO BID 03/23/23 03/23/23 release (Dulcolax (bisacodyl)) lactulose 10 gram/15 mL oral 20 g PO TID 03/23/23 03/23/23 solution methadone 5 mg tablet 5 mg PO BID 03/23/23 03/23/23 mirtazapine 15 mg tablet (Remeron) 15 mg PO HS 03/23/23 03/23/23 multivit with minerals-iron 18 1 tablet PO DAILY 03/23/23 03/23/23 mg-folic ac 400 mcg-vit K 25 mcg tablet (Adults Multivitamin) oxycodone-acetaminophen 7.5 mg-325 1 tablet PO Q6H PRN Pain 03/23/23 03/23/23 mg tablet sucralfate 1 gram tablet (Carafate) 1 g PO TID 03/23/23 03/23/23 Allergies Allergy/AdvReac Type Severity Reaction Status Date / Time Penicillins Allergy Unknown SHORTNESS Verified 03/26/23 13:31 OF BREATH Review of Systems Review of Systems: CONSTITUTIONAL: Chills denies fever, or sweats. ENT: Congestion, sore throat denies rhinorrhea, or otalgia. CARDIOVASCULAR: Denies chest pain, palpitations, or edema. RESPIRATORY: Denies cough or dyspnea. GASTROINTESTINAL: Denies abdominal pain, nausea, vomiting, or diarrhea. GENITOURINARY: Denies dysuria or hematuria. SKIN: Denies rash or itching. MUSCULOSKELETAL: Denies back pain, joint pain, or myalgia. NEUROLOGIC: Denies headache, numbness, dizziness, or weakness. PSYCHIATRIC: Denies anxiety or depression. [facility] Past Medical History Medical History Aortic valve stenosis Arthritis (03/26/19) Atrial fibrillation with controlled ventricular rate Chronic congestive heart failure COPD (chronic obstructive pulmonary disease) Coronary artery disease 2019 - nonSTEMI - left heart cath showed mild coronary artery disease with severe LV dysfunction EF 20% with possible underlying nonischemic cardiomyopathy, no PCI Depression Diabetes mellitus Diabetic polyneuropathy associated with type 2 diabetes mellitus Fibromyalgia Mixed hyperlipidemia Non-small cell carcinoma of lung ANIA (obstructive sleep apnea) Restless legs syndrome Sacral decubitus ulcer Surgical History Surgical History History of hernia repair Umbilical hernia repair. Bilateral inguinal hernia repairs. Family History Family History Sibling Patient's sister is in good health Hypertension Family history of heart disease in male family member before age 55 Mother Family history of heart disease in male family
[2023-07-23 17:00] VITALS: BP 125/72; PULSE 81; RESP 18; TEMP 36.8; O2SAT 95
[2023-07-23] MEDS: CEFEPIME 1 GM/NS 50 ML 1 GM/50 ML BAG IVPB (17:17)
[2023-07-23] MEDS: AZITHROMYCIN 500 MG/NS 250 ML 500 MG/250 ML BAG 250 MG IVPB (17:34)
[2023-07-23 17:40] VITALS: BP 105/62; PULSE 82; RESP 16; TEMP 37; O2SAT 95
[2023-07-23 17:47] LABS: Influenza A QL RT-PCR Negative (Negative); Influenza B QL RT-PCR Negative (Negative); SARS-CoV-2 RNA PCR Positive (Negative)
--- NOTE | 2023-07-23 20:32 | PM.IMHP ---
H&P: HPI History of Present Illness Date/Time: 07/23/23 18:30 Chief Complaint: Abnormal chest x-ray. Narrative: This is a very pleasant 77-year-old male with history of non-small cell lung cancer considered to be in remission, chronic obstructive pulmonary disease, coronary artery disease, heart failure with preserved ejection fraction, paroxysmal atrial fibrillation on chronic anticoagulation, type 2 diabetes mellitus, hypothyroidism, and other comorbidities who presented to the emergency department via EMS from [facility] for evaluation after he was found to have an abnormal chest x-ray. Patient provides the following history. He endorses a wet but nonproductive cough the last 3 days associated with generalized fatigue, poor appetite, loose stools, and sore throat. He denies headache, neck ache, fever, chills, sweats, chest pain, shortness a breath, and vomiting. Chest x-ray done today was concerning for pneumonia and he was sent in for evaluation. He was afebrile on arrival with stable vital signs. He tested positive for COVID. Chest x-ray showed complete consolidation of the right upper lobe and a subsequent chest CT showed right upper lobe consolidation suggestive of pneumonia with a differential diagnosis to include mucus plugging, endobronchial lesion, or possible postobstructive pneumonia. He received a dose of azithromycin and cefepime in the ED and he is being admitted in this setting for further treatment. He has no current complaints at this time. Review of Systems Review of Systems: Twelve systems were reviewed and are negative except for as per HPI. [facility] Past Medical History Medical History (Updated 07/23/23 @ 20:58 by Yocasta Cole PA-C) Aortic valve stenosis Arthritis (03/26/19) Atrial fibrillation with controlled ventricular rate Benign prostatic hyperplasia Chronic congestive heart failure Chronic obstructive pulmonary disease Coronary artery disease (2019) Non-STEMI - left heart cath showed mild coronary artery disease with severe LV dysfunction EF 20% with possible underlying nonischemic cardiomyopathy, no PCI. Depression Diabetes mellitus Diabetic polyneuropathy associated with type 2 diabetes mellitus Fibromyalgia Hypothyroidism Mixed hyperlipidemia Non-small cell carcinoma of lung Status post chemo radiation. Obstructive sleep apnea Restless legs syndrome Sacral decubitus ulcer Type 2 diabetes mellitus Surgical History Surgical History History of hernia repair Umbilical hernia repair. Bilateral inguinal hernia repairs. Family History Family History Sibling Patient's sister is in good health Hypertension Family history of heart disease in male family member before age 55 Mother Family history of heart disease in male family member before age 55 Patient's mother is Family history of congestive heart failure, Onset Age: 70 Father Patient's father is Acute myocardial infarction, Onset Age: 62 Grandparent Depression Family history of arthritis Family history of malignant neoplasm of breast Family history of heart disease in male family member before age 55 Other Cerebrovascular accident Family history of cardiovascular disease Social History Social History (Updated 07/23/23 @ 20:46 by Yocasta Cole PA-C) Social History: Code status: Full code. Smoking packs per day: 1.5 Smoking cigarettes per day: 30.0 Years smoked: 30 Smoking pack-years: 45.00 Smoking status: Former smoker Tobacco type: cigarettes Second hand tobacco smoke exposure: Yes Smoking end date: 11/18/99 Alcohol intake: never Substance use: never Substance use type: does not use Lack of Transportation: No Lack of Food: Never True Current Housing: I Have Housing Concerned About Future Housing: No Difficulty
--- NOTE | 2023-07-23 22:04 | ADMGEN ---
This patient, Farhan Armstrong, was admitted to 3 Med Surg Room 303-01. Patient/family oriented to hospital policies and general routines including ID bracelet, bed and alarms, visiting hours, pain management, procedures, bathroom and other care routines, personal items, smoking policy, room service/diet, and visiting hours. Information on how to activate the Rapid Response Team has been discussed. Patient/Family are encouraged to report perceived risks to care and to ask questions if they do not understand what they are told or what they should do.
[2023-07-23 22:21] LABS: Glucose Point of Care 73 mg/dl (65-105)
[2023-07-23 22:22] VITALS: BP 122/66; PULSE 83; RESP 13; TEMP 36.9; O2SAT 95; BMI 25.0
[2023-07-23 22:45] VITALS: BMI 25.1
[2023-07-23 23:55] VITALS: BP 122/66; PULSE 83; RESP 13; TEMP 36.9; O2SAT 95
[2023-07-24] VITALS (10 sets, daily range): BP systolic 103–136; BP diastolic 56–62; PULSE 74–84; RESP 13–20; TEMP 37.1–37.4; O2SAT 94–97; BMI 25.1
[2023-07-24] MEDS: CEFEPIME 2 GM/NS 50 ML 2 GM/50 ML BAG IVPB ×4 (00:11→22:01)
[2023-07-24] MEDS: ALBUTEROL SULFATE NEB 2.5 MG/3 ML INH INHALATION ×4 (01:56→19:50)
[2023-07-24] MEDS: IPRATROPIUM BR 0.02% INH SOLN 0.5 MG/2.5 ML VIAL INHALATION ×4 (01:56→19:50)
--- NOTE | 2023-07-24 04:32 | PC.NURSE ---
this RN assessed pt's skin, with a focus on backside, and did not see any open areas. However, paperwork that came from ID with patient has current wound care orders for the buttocks, coccyx, and sacrum
[2023-07-24 06:18] LABS: Basophils Percent Auto 0.5 % (0.2-1.2); Eosinophils Absolute Auto 0.2 K/mm3 (0-0.3); Eosinophils Percent Auto 4.8 % (0-4.4); Hematocrit 34.2 % (42.0-52.0); Hemoglobin 11.1 g/dL (14.0-18.0); Immature Granulocyte Absolute 0.01 K/mm3 (0.00-0.031); Immature Granulocyte Percent A 0.3 % (0-0.5); Lymphocytes Absolute Auto 0.89 K/mm3 (0.9-3.2); Lymphocytes Percent Auto 23.7 % (18.3-44.2); Mean Corpuscular HGB Conc 32.5 g/dl (32-36); Mean Corpuscular Hemoglobin 29.4 pg (26-34); Mean Corpuscular Volume 90.5 fl (80-100); Mean Platelet Volume 10.2 fl (7.4-10.4); Monocytes Absolute Auto 0.5 K/mm3 (0.1-0.6); Monocytes Percent Auto 12.2 % (2.6-8.5); Neutrophils Absolute Auto 2.2 K/mm3 (1.3-6.7); Neutrophils Percent Auto 58.5 % (45.5-73.1); Platelet Count Result 114 k/mm3 (150-375); Red Blood Count 3.78 M/mm3 (4.6-6.20); White Blood Count 3.8 K/mm3 (4.5-10.0)
[2023-07-24 06:39] LABS: Anion Gap 4 mmol/L (8-16); Blood Urea Nitrogen 24 mg/dL (9-20); Calcium 7.6 mg/dL (8.4-10.2); Carbon Dioxide 29 mmol/L (22-30); Chloride 104 mmol/L (98-107); Estimated CRCL calculation 51 ml/min; Estimated Glomerular Filt Rate > 60; Glucose 59 mg/dL (65-110); Lactate Dehydrogenase 95 U/L (120-246); Magnesium 1.7 mg/dL (1.6-2.3); Potassium 3.4 mmol/L (3.4-5.0); Sodium 137 mmol/L (137-145)
[2023-07-24] MEDS: GLUCOSE ORAL GEL 15 GM OF GLUCSE IN 37.5 GM TUBE PO (07:21)
[2023-07-24 08:05] LABS: Glucose Point of Care 138 mg/dl (65-105)
[2023-07-24] MEDS: DORNASE ALFA INH SOLN 1 MG/ML 2.5 ML AMP 2.5 MG INHALATION ×2 (08:18→19:50)
[2023-07-24] MEDS: guaiFENesin 12 HR 600 MG TABCR PO ×2 (09:58→20:45)
[2023-07-24] MEDS: ENOXAPARIN 40 MG/0.4 ML SYRINGE SUB-Q (09:59)
[2023-07-24 11:38] LABS: Glucose Point of Care 81 mg/dl (65-105)
[2023-07-24 16:37] LABS: Glucose Point of Care 145 mg/dl (65-105)
--- NOTE | 2023-07-24 17:07 | PM.IMPN ---
Progress Note: A&P Assessment and Plan (1) COVID-19: Code(s): U07.1 - COVID-19 Status: Acute (2) Right upper lobe pneumonia: Code(s): J18.9 - Pneumonia, unspecified organism Status: Acute (3) History of lung cancer: Code(s): Z85.118 - Personal history of other malignant neoplasm of bronchus and lung Status: Acute (4) Type 2 diabetes mellitus: Code(s): E11.9 - Type 2 diabetes mellitus without complications Status: Acute (5) Obstructive sleep apnea: Code(s): G47.33 - Obstructive sleep apnea (adult) (pediatric) Status: Acute (6) Hypothyroidism: Code(s): E03.9 - Hypothyroidism, unspecified Status: Acute (7) Coronary artery disease: Onset Date: 2018 Code(s): I25.10 - Atherosclerotic heart disease of [place] coronary artery without angina pectoris Status: Acute (8) Chronic obstructive pulmonary disease: Qualifiers: COPD type: COPD with acute exacerbation Qualified Code(s): J44.1 - Chronic obstructive pulmonary disease with (acute) exacerbation Code(s): J44.9 - Chronic obstructive pulmonary disease, unspecified Status: Acute (9) Thrombocytopenia: Code(s): D69.6 - Thrombocytopenia, unspecified Status: Acute Plan The patient presented to the emergency department for evaluation after he was found to have an abnormal chest x-ray which was done for evaluation of fatigue, decreased appetite, sore throat, nonproductive cough as per HPI. Labs, imaging, EKG, and all reports were personally reviewed. He tested positive for COVID. Chest CT showed right upper lobe consolidation which does not look like COVID pneumonia. He has been started on cefepime, azithromycin, and vancomycin as postobstructive pneumonia is a consideration given history of lung cancer and a previously documented 2.5 x 1.4 cm nodule in the perihilar right upper lobe. However this may be due to mucus plugging or possible endobronchial lesion as well. Attempt sputum for culture. Check Legionella pneumococcal antigens as well as mycoplasma IgM. He has been started on scheduled bronchodilators. Add Pulmozyme, Mucinex, and Cornet to mobilize secretions. continue to watch in the hospital pt not needing any oxygen no need to start remdesivir Subjective Date/time seen: 07/24/23 17:07 Interval history: Pleasant 77-year-old male with history of non-small cell lung cancer considered to be in remission, chronic obstructive pulmonary disease, coronary artery disease, heart failure with preserved ejection fraction, paroxysmal atrial fibrillation on chronic anticoagulation, type 2 diabetes mellitus, hypothyroidism, and other comorbidities who presented to the emergency department via EMS from [facility] for evaluation after he was found to have an abnormal chest x-ray. Patient provides the following history. He endorses a wet but nonproductive cough the last 3 days associated with generalized fatigue, poor appetite, loose stools, and sore throat.? Pt admitted with covid. continue to watch in hospital Review of Systems Review of Systems: mild cough Exam Narrative: General: Moderately ill-appearing gentleman Respiratory: decreased breath sounds bl Cardiovascular: Regular rate and rhythm with S1-S2. Gastrointestinal: Abdomen is soft, nontender, and nondistended with positive bowel sounds. Skin: Warm and dry. No rash or lesions on limited exam. Extremities: No cyanosis, clubbing, or edema. Radial and pedal pulses intact. Neurological: Alert. Cranial nerves 2-12 are grossly intact. Appears to have left footdrop. Psychiatric: Pleasant and cooperative with appropriate mood and affect. Objective Data Vital Signs Vital Signs: Vital Signs - 24 hr 07/23/23 17:40 07/23/23 22:22 07/23/23 23:55 Temperature 37.0 C 36.9 C 36.9 C Pulse Rate 82 83 83 Respiratory Rate 16 13 13 Blood Pressure 105/62 122/66 122/66 Pulse Oximetry 95 9
[2023-07-24] MEDS: AZITHROMYCIN 500 MG/NS 250 ML 500 MG/250 ML BAG 250 MG IVPB (17:41)
[2023-07-24 20:35] LABS: Glucose Point of Care 102 mg/dl (65-105)
[2023-07-25] VITALS (13 sets, daily range): BP systolic 109–127; BP diastolic 61–71; PULSE 76–88; RESP 13–20; TEMP 36.9–37.4; O2SAT 95–96
[2023-07-25] MEDS: ALBUTEROL SULFATE NEB 2.5 MG/3 ML INH INHALATION ×2 (02:29→07:17)
[2023-07-25] MEDS: IPRATROPIUM BR 0.02% INH SOLN 0.5 MG/2.5 ML VIAL INHALATION ×5 (02:29→21:10)
[2023-07-25] MEDS: CEFEPIME 2 GM/NS 50 ML 2 GM/50 ML BAG IVPB ×3 (05:07→21:34)
[2023-07-25] MEDS: ACETAMINOPHEN 325 MG TABLET 650 MG PO (05:14)
[2023-07-25 06:44] LABS: Estimated CRCL calculation 63 ml/min; Estimated Glomerular Filt Rate > 60
[2023-07-25] MEDS: DORNASE ALFA INH SOLN 1 MG/ML 2.5 ML AMP 2.5 MG INHALATION ×2 (07:17→21:20)
[2023-07-25 07:35] LABS: Glucose Point of Care 98 mg/dl (65-105)
[2023-07-25] MEDS: ENOXAPARIN 40 MG/0.4 ML SYRINGE SUB-Q (08:15)
--- NOTE | 2023-07-25 09:00 | PM.IMPN ---
Progress Note: A&P Assessment and Plan (1) COVID-19: Code(s): U07.1 - COVID-19 Status: Acute (2) Right upper lobe pneumonia: Code(s): J18.9 - Pneumonia, unspecified organism Status: Acute (3) History of lung cancer: Code(s): Z85.118 - Personal history of other malignant neoplasm of bronchus and lung Status: Acute (4) Type 2 diabetes mellitus: Code(s): E11.9 - Type 2 diabetes mellitus without complications Status: Acute (5) Obstructive sleep apnea: Code(s): G47.33 - Obstructive sleep apnea (adult) (pediatric) Status: Acute (6) Hypothyroidism: Code(s): E03.9 - Hypothyroidism, unspecified Status: Acute (7) Coronary artery disease: Onset Date: 2018 Code(s): I25.10 - Atherosclerotic heart disease of [place] coronary artery without angina pectoris Status: Acute (8) Chronic obstructive pulmonary disease: Qualifiers: COPD type: COPD with acute exacerbation Qualified Code(s): J44.1 - Chronic obstructive pulmonary disease with (acute) exacerbation Code(s): J44.9 - Chronic obstructive pulmonary disease, unspecified Status: Acute (9) Thrombocytopenia: Code(s): D69.6 - Thrombocytopenia, unspecified Status: Acute Plan The patient presented to the emergency department for evaluation after he was found to have an abnormal chest x-ray which was done for evaluation of fatigue, decreased appetite, sore throat, nonproductive cough as per HPI. Labs, imaging, EKG, and all reports were personally reviewed. He tested positive for COVID. Chest CT showed right upper lobe consolidation which does not look like COVID pneumonia. He has been started on cefepime, azithromycin, and vancomycin as postobstructive pneumonia is a consideration given history of lung cancer and a previously documented 2.5 x 1.4 cm nodule in the perihilar right upper lobe. However this may be due to mucus plugging or possible endobronchial lesion as well. Attempt sputum for culture. Check Legionella pneumococcal antigens as well as mycoplasma IgM. He has been started on scheduled bronchodilators. Add Pulmozyme, Mucinex, and Cornet to mobilize secretions. CPT has been ordered. will consult Pulmonary Subjective Date/time seen: 07/25/23 09:00 Interval history: Pleasant 77-year-old male with history of non-small cell lung cancer considered to be in remission, chronic obstructive pulmonary disease, coronary artery disease, heart failure with preserved ejection fraction, paroxysmal atrial fibrillation on chronic anticoagulation, type 2 diabetes mellitus, hypothyroidism, and other comorbidities who presented to the emergency department via EMS from [facility] for evaluation after he was found to have an abnormal chest x-ray. Patient provides the following history. He endorses a wet but nonproductive cough the last 3 days associated with generalized fatigue, poor appetite, loose stools, and sore throat.? COVID positive. Chest x-ray with complete consolidation of the right upper lobe concerning for pneumonia. CT chest with right upper lobe consolidation may reflect pneumonia in the appropriate clinical context mucous plugging endobronchial lesion out postobstructive pneumonia. Repeat chest x-ray on 07/24/2023 with persistent collapse of right upper lobe. He has been started on cefepime azithromycin and vancomycin. Review of Systems Review of Systems: All systems reviewed & are unremarkable except as noted in HPI and below Exam Narrative: General: Moderately ill-appearing gentleman not in acute distress Respiratory: decreased breath sounds bl Cardiovascular: Regular rate and rhythm with S1-S2. Gastrointestinal: Abdomen is soft, nontender, and nondistended with positive bowel sounds. Skin: Warm and dry. No rash or lesions on limited exam. Extremities: No cyanosis, clubbing, or edema. Radial and pedal pulses intact. Neurological: Alert. Cranial
--- NOTE | 2023-07-25 09:49 | PM.CNPUL ---
Assessment and Plan Assessment and plan (1) Right upper lobe consolidation: Code(s): J18.1 - Lobar pneumonia, unspecified organism Status: Acute Assessment and Plan: Patient with a history of right upper lobe lung cancer status post radiation therapy completed 06/29/2022 and 1 cycle of carboplatin-Taxol on 08/10/2022 but this was discontinued because of skin lesions to the buttocks and fatigue and according to Dr. Murry's note on 11/23/2022 he is not a candidate for further chemotherapy. Currently the patient presents with 3 days history of cough, fatigue, loose stool in sore throat on 07/23/2023 although today he denied these and said that he had a little bit of a temperature and felt fatigued. He tested COVID positive in the emergency department. Room air saturations were 95. Chest x-ray compared to 03/26/2023 showed new right upper lobe collapse and a CT scan confirmed right upper lobe collapse with volume loss and no definite obstructing mass or endobronchial lesion. No mediastinal lymphadenopathy small volume pericardial effusion. Patient has been treated with broad-spectrum antibiotics, bronchodilators, Pulmozyme, and guaifenesin. Etiology a right upper lobe collapse includes pneumonia (COVID, bacterial, post obstructive), mucus plugging, had recurrent lung cancer. Plan: I will repeat a chest x-ray today. Patient remains on room air and agree with no active treatment for COVID. Today is day 3 of vancomycin, cefepime and azithromycin and he has been afebrile with no leukocytosis, minimal cough and minimal phlegm production. He remains on room air. I will continue dornase 2.5 mg Q 12, and increase his levalbuterol and ipratroprium bronchodilator frequency to q.4 hours, increase his guaifenesin to 1200 mg p.o. b.i.d., add Mucomyst nebulization Q 8, add PEP with coronet flutter valve Q 4 WA. I will add chest physiotherapy with hand held percussion QID (I spoke with RT validation manager). Repeat chest x-ray on 07/26/2023. Discussed with Dr. Weaver, will follow with you. (2) Chronic obstructive pulmonary disease: Code(s): J44.9 - Chronic obstructive pulmonary disease, unspecified Status: Acute Assessment and Plan: Patient with a 40 4 pack years tobacco history, quit in 1988, PFTs on 06/25/2022 with moderate obstructive airway disease with evidence of air trapping.? Moderately reduced lung diffusion capacity. No bronchodilators were given. CT scan of the chest on 07/23/2023 without significant bullous emphysema. Patient is bedbound or in a wheelchair baseline he cannot walk and denies any dyspnea on exertion on ipratropium nebulizers q.i.d. and levalbuterol and albuterol p.r.n.. Inpatient COPD exacerbation 04/01/2023. 07/25 currently the patient denies shortness of breath, dyspnea on exertion, change in his cough or phlegm production and has no wheezing on exam. I do not believe he has a COPD exacerbation. I will increase the frequency is nebulizers to levalbuterol 1.25 mg q.4 hours and ipratropium 0.5 mg q.4 hours. I see no need for inhaled or systemic steroids at this time. (3) Obstructive sleep apnea: Code(s): G47.33 - Obstructive sleep apnea (adult) (pediatric) Status: Acute Assessment and Plan: 08/18/2020: Split night sleep study This split night study Aug 18, 2020 shows?moderate obstructive sleep apnea with an AHI of 25.4?during the?baseline,?extremely severe in non-supine REM?with an index of?50.1,?sustained hypoxemia?with?89.2% of the?baseline spent below 88%. He had loud snoring.? During the titration, he was not able to tolerate CPAP, and was switched to BiPAP ? Using a large ResMed med Air it F10 20 full face mask with a final pressure of 16/12 with improvement.? However he had ongoing obstructive events with sustained hypoxemia. The final 45 minutes of the titration, the patient had saturations ranging from 85% to 89%. Overall, he was significantly improved. This patient should be treate
[2023-07-25] MEDS: APIXABAN 5 MG TABLET PO ×2 (10:22→21:35)
[2023-07-25] MEDS: guaiFENesin 12 HR 600 MG TABCR PO (10:23)
[2023-07-25] MEDS: methADONE HCL (*CRX) 5 MG TABLET PO ×2 (10:23→17:29)
[2023-07-25] MEDS: MULTIVITAMINS /C LUTEIN (CENTRUM SILVER) TABLET *BKC 1 TAB PO (10:23)
[2023-07-25] MEDS: buPROPion HCL XL (24 HR) 150 MG TABCR 300 MG PO (10:23)
[2023-07-25] MEDS: GABAPENTIN 100 MG CAPSULE PO ×3 (10:23→17:29)
[2023-07-25] MEDS: ASCORBIC ACID 500 MG TABLET PO ×2 (10:23→17:29)
[2023-07-25] MEDS: ASPIRIN 81 MG ENTERIC TABLET PO (10:23)
--- NOTE | 2023-07-25 11:30 | PC.NURSE ---
1130 Dr Renteria notified of pt c/o abd cramping. New orders received.
[2023-07-25 11:34] LABS: Glucose Point of Care 112 mg/dl (65-105)
[2023-07-25] MEDS: LEVALBUTEROL NEB 1.25 MG/3 ML INHALATION ×3 (11:57→21:10)
[2023-07-25 11:58] LABS: Alveolar/Arterial O2 Gradient 33.2 mmHg; Base Excess ABG 3.7 mEq/l (+/-2.0); Fractional Inspired Oxygen 21 %; HCO3 ABG 26.8 mEq/l (22.0-26.0); Oxygen Content ABG 17.4 %vol (16.0-22.0); Oxyhemoglobin 95.1 % THb (90.0-100.0); PCO2 ABG 35.4 mmHg (35.0-45.0); PO2 ABG 74.1 mmHg (80.0-100.0); PO2 FiO2 Ratio Arterial Blood 3.53 %; pH ABG 7.497 (7.350-7.450)
[2023-07-25 12:00] LABS: Device ROOM AIR; Modified Allen's Test Pass; Site Drawn LEFT RADIAL
[2023-07-25] MEDS: oxyCODONE HCL (*CRX) 2.5 MG TAB IR PO ×2 (12:35→21:36)
[2023-07-25] MEDS: oxyCODONE/ACETAMINOPHEN (*CRX) 5-325 MG TABLET 1 TABLET PO ×2 (12:36→21:35)
--- NOTE | 2023-07-25 12:58 | PC.NURSE ---
1245 Dr Renteria notified of patirnt c/o incresing pain in abd. Patient stated that is got worse after eating.
[2023-07-25] MEDS: ARIPiprazole 2 MG TABLET 4 MG PO (14:26)
[2023-07-25] MEDS: ACETYLCYSTEINE 20% INHAL SOLN 800 MG/4 ML VIAL 200 MG INHALATION (15:33)
[2023-07-25] MEDS: LACTULOSE 20 GM/30 ML UDC PO (15:56)
[2023-07-25] MEDS: BISACODYL 5 MG TABLET EC 10 MG PO (15:56)
[2023-07-25] MEDS: polyethylene glycoL 3350 17 GM POWD.PACK PO (15:57)
[2023-07-25] MEDS: SUCRALFATE 1 GM TABLET PO (15:57)
[2023-07-25 16:42] LABS: Glucose Point of Care 124 mg/dl (65-105)
[2023-07-25] MEDS: AZITHROMYCIN 500 MG/NS 250 ML 500 MG/250 ML BAG 125 MG IVPB (17:28)
[2023-07-25 20:06] LABS: Glucose Point of Care 120 mg/dl (65-105)
[2023-07-25] MEDS: guaiFENesin 12 HR 600 MG TABCR 1200 MG PO (21:34)
[2023-07-25] MEDS: MIRTAZAPINE 15 MG TABLET PO (21:34)
[2023-07-25] MEDS: rOPINIRole HCL 1 MG TABLET PO (21:35)
[2023-07-25] MEDS: TAMSULOSIN HCL 0.4 MG CAPSULE PO (21:35)
[2023-07-25 23:19] LABS: Vancomycin Trough 11.7 ug/mL (10.0-20.0)
[2023-07-26] VITALS (15 sets, daily range): BP systolic 96–112; BP diastolic 57–67; PULSE 66–84; RESP 12–20; TEMP 36.4–37.2; O2SAT 95–96
[2023-07-26] MEDS: LEVALBUTEROL NEB 1.25 MG/3 ML INHALATION ×6 (00:42→20:16)
[2023-07-26] MEDS: IPRATROPIUM BR 0.02% INH SOLN 0.5 MG/2.5 ML VIAL INHALATION ×6 (00:42→20:16)
[2023-07-26] MEDS: ACETYLCYSTEINE 20% INHAL SOLN 800 MG/4 ML VIAL 200 MG INHALATION ×3 (00:42→16:26)
[2023-07-26 05:53] LABS: Basophils Percent Auto 0.3 % (0.2-1.2); Eosinophils Absolute Auto 0.2 K/mm3 (0-0.3); Eosinophils Percent Auto 6.3 % (0-4.4); Hematocrit 32.4 % (42.0-52.0); Hemoglobin 10.5 g/dL (14.0-18.0); Immature Granulocyte Absolute 0.02 K/mm3 (0.00-0.031); Immature Granulocyte Percent A 0.5 % (0-0.5); Lymphocytes Absolute Auto 0.79 K/mm3 (0.9-3.2); Lymphocytes Percent Auto 21.6 % (18.3-44.2); Mean Corpuscular HGB Conc 32.4 g/dl (32-36); Mean Corpuscular Hemoglobin 29.2 pg (26-34); Mean Corpuscular Volume 90.3 fl (80-100); Mean Platelet Volume 10.2 fl (7.4-10.4); Monocytes Absolute Auto 0.5 K/mm3 (0.1-0.6); Monocytes Percent Auto 12.6 % (2.6-8.5); Neutrophils Absolute Auto 2.1 K/mm3 (1.3-6.7); Neutrophils Percent Auto 58.7 % (45.5-73.1); Platelet Count Result 105 k/mm3 (150-375); Red Blood Count 3.59 M/mm3 (4.6-6.20); Red Cell Distribution Width 14.5 % (11.5-14.5); White Blood Count 3.7 K/mm3 (4.5-10.0)
[2023-07-26] MEDS: LEVOTHYROXINE SODIUM 25 MCG TABLET PO (05:53)
[2023-07-26] MEDS: CEFEPIME 2 GM/NS 50 ML 2 GM/50 ML BAG IVPB ×3 (05:53→21:07)
[2023-07-26] MEDS: SUCRALFATE 1 GM TABLET PO ×3 (05:54→17:11)
[2023-07-26 06:07] LABS: Alanine Aminotransferase 10 U/L (6-50); Albumin Level 2.6 g/dL (3.5-5.1); Alkaline Phosphatase 53 U/L (38-126); Anion Gap 3 mmol/L (8-16); Aspartate Amino Transferase 14 U/L (17-59); Bilirubin,Total 0.3 mg/dL (0.2-1.3); Blood Urea Nitrogen 17 mg/dL (9-20); Calcium 7.8 mg/dL (8.4-10.2); Carbon Dioxide 28 mmol/L (22-30); Chloride 106 mmol/L (98-107); Estimated CRCL calculation 63 ml/min; Estimated Glomerular Filt Rate > 60; Glucose 74 mg/dL (65-110); Potassium 3.2 mmol/L (3.4-5.0); Sodium 137 mmol/L (137-145)
[2023-07-26 07:45] LABS: Glucose Point of Care 70 mg/dl (65-105)
[2023-07-26] MEDS: DORNASE ALFA INH SOLN 1 MG/ML 2.5 ML AMP 2.5 MG INHALATION ×2 (07:56→20:16)
[2023-07-26] MEDS: ARIPiprazole 2 MG TABLET 4 MG PO (09:02)
[2023-07-26] MEDS: LACTULOSE 20 GM/30 ML UDC PO ×3 (09:02→17:12)
[2023-07-26] MEDS: MULTIVITAMINS /C LUTEIN (CENTRUM SILVER) TABLET *BKC 1 TAB PO (09:03)
[2023-07-26] MEDS: APIXABAN 5 MG TABLET PO ×2 (09:03→21:05)
[2023-07-26] MEDS: methADONE HCL (*CRX) 5 MG TABLET PO ×2 (09:03→17:11)
[2023-07-26] MEDS: ASPIRIN 81 MG ENTERIC TABLET PO (09:03)
[2023-07-26] MEDS: POTASSIUM CHLORIDE 20 MEQ ER TABLET 40 MEQ PO (09:03)
[2023-07-26] MEDS: buPROPion HCL XL (24 HR) 150 MG TABCR 300 MG PO (09:03)
[2023-07-26] MEDS: BISACODYL 5 MG TABLET EC 10 MG PO ×2 (09:04→17:10)
[2023-07-26] MEDS: guaiFENesin 12 HR 600 MG TABCR 1200 MG PO ×2 (09:04→21:05)
[2023-07-26] MEDS: polyethylene glycoL 3350 17 GM POWD.PACK PO (09:04)
[2023-07-26] MEDS: ASCORBIC ACID 500 MG TABLET PO ×2 (09:04→17:11)
[2023-07-26] MEDS: GABAPENTIN 100 MG CAPSULE PO ×3 (09:04→17:11)
[2023-07-26 10:11] LABS: Glucose Point of Care 91 mg/dl (65-105)
--- NOTE | 2023-07-26 11:04 | PM.PNPUL ---
Progress Note: A&P Assessment and Plan (1) Right upper lobe consolidation: Code(s): J18.1 - Lobar pneumonia, unspecified organism Status: Acute Assessment and Plan: Patient with a history of right upper lobe lung cancer status post radiation therapy completed 06/29/2022 and 1 cycle of carboplatin-Taxol on 08/10/2022 but this was discontinued because of skin lesions to the buttocks and fatigue and according to Dr. Murry's note on 11/23/2022 he is not a candidate for further chemotherapy. Currently the patient presents with 3 days history of cough, fatigue, loose stool in sore throat on 07/23/2023 although today he denied these and said that he had a little bit of a temperature and felt fatigued. He tested COVID positive in the emergency department. Room air saturations were 95. Chest x-ray compared to 03/26/2023 showed new right upper lobe collapse and a CT scan confirmed right upper lobe collapse with volume loss and no definite obstructing mass or endobronchial lesion. No mediastinal lymphadenopathy small volume pericardial effusion. Patient has been treated with broad-spectrum antibiotics, bronchodilators, Pulmozyme, and guaifenesin. 07/25/23 Etiology a right upper lobe collapse includes pneumonia (COVID, bacterial, post obstructive), mucus plugging, had recurrent lung cancer. Plan: I will repeat a chest x-ray today. Patient remains on room air and agree with no active treatment for COVID. Today is day 3 of vancomycin, cefepime and azithromycin and he has been afebrile with no leukocytosis, minimal cough and minimal phlegm production. He remains on room air. I will continue dornase 2.5 mg Q 12, and increase his levalbuterol and ipratroprium bronchodilator frequency to q.4 hours, increase his guaifenesin to 1200 mg p.o. b.i.d., add Mucomyst nebulization Q 8, add PEP with coronet flutter valve Q 4 WA. I will add chest physiotherapy with hand held percussion QID (I spoke with RT business records manager). Repeat chest x-ray on 07/26/2023. ABG on room air was 7.50/35/74 07/26 patient states that he is breathing better. He denies cough, phlegm or hemoptysis. He remains fatigued. Currently the patient is on room air with saturations 96%. White blood cell count is 3.7, creatinine is 0.8, weight is 75.2. Chest x-ray demonstrates continued right upper lobe collapse. Plan: continue dornase 2.5 mg Q 12, levalbuterol and ipratroprium bronchodilator frequency to q.4 hours, guaifenesin to 1200 mg p.o. b.i.d., Mucomyst nebulization Q 8, PEP with coronet flutter valve Q 4 WA and chest physiotherapy with hand held percussion QID. Spoke with respiratory therapy and he was able to cough once in the 30 minute session this morning. Today is day 4 of vancomycin, cefepime and azithromycin. Would discontinue azithromycin after 5 days. Would treat with vanco and cefepime for a total of 7 days. Will repeat chest x-ray on 05/26/2023. I did speak with the patient and explained to him that his abnormal chest X may may be related to mucus plugging, pneumonia, or lung cancer. I explained to him that we are treating him aggressively for mucus plugging and pneumonia and that we will follow his chest x-ray. He did state that he would want to know if he had lung cancer and that if he could receive radiation therapy in the future he would be interested. I explained to him that the last oncology note on 11/23/2022 stated he would not be a candidate for further chemotherapy. Discussed with Dr. Weaver, will follow with you. (2) Chronic obstructive pulmonary disease: Code(s): J44.9 - Chronic obstructive pulmonary disease, unspecified Status: Acute Assessment and Plan: Patient with a 40 4 pack years tobacco history, quit in 1988, PFTs on 06/25/2022 with moderate obstructive airway disease with evidence of air trapping.? Moderately reduced lung diffusion capacity. No bronchodilators were given. CT scan of the chest on 07/23/2023 without significant bullous emph
[2023-07-26 11:44] LABS: Glucose Point of Care 93 mg/dl (65-105)
--- NOTE | 2023-07-26 12:35 | PM.IMPN ---
Progress Note: A&P Assessment and Plan (1) COVID-19: Code(s): U07.1 - COVID-19 Status: Acute (2) Right upper lobe pneumonia: Code(s): J18.9 - Pneumonia, unspecified organism Status: Acute (3) History of lung cancer: Code(s): Z85.118 - Personal history of other malignant neoplasm of bronchus and lung Status: Acute (4) Type 2 diabetes mellitus: Code(s): E11.9 - Type 2 diabetes mellitus without complications Status: Acute (5) Obstructive sleep apnea: Code(s): G47.33 - Obstructive sleep apnea (adult) (pediatric) Status: Acute (6) Hypothyroidism: Code(s): E03.9 - Hypothyroidism, unspecified Status: Acute (7) Coronary artery disease: Onset Date: 2018 Code(s): I25.10 - Atherosclerotic heart disease of [place] coronary artery without angina pectoris Status: Acute (8) Chronic obstructive pulmonary disease: Qualifiers: COPD type: COPD with acute exacerbation Qualified Code(s): J44.1 - Chronic obstructive pulmonary disease with (acute) exacerbation Code(s): J44.9 - Chronic obstructive pulmonary disease, unspecified Status: Acute (9) Thrombocytopenia: Code(s): D69.6 - Thrombocytopenia, unspecified Status: Acute Plan The patient presented to the emergency department for evaluation after he was found to have an abnormal chest x-ray which was done for evaluation of fatigue, decreased appetite, sore throat, nonproductive cough as per HPI. Labs, imaging, EKG, and all reports were personally reviewed. He tested positive for COVID. Chest CT showed right upper lobe consolidation which does not look like COVID pneumonia. He has been started on cefepime, azithromycin, and vancomycin as postobstructive pneumonia is a consideration given history of lung cancer and a previously documented 2.5 x 1.4 cm nodule in the perihilar right upper lobe. However this may be due to mucus plugging or possible endobronchial lesion as well. Attempt sputum for culture. Check Legionella pneumococcal antigens as well as mycoplasma IgM. He has been started on scheduled bronchodilators. Add Pulmozyme, Mucinex, and Cornet to mobilize secretions. CPT has been ordered. Consulted Pulmonary. Abdominal discomfort led to CT abdomen and pelvis which revealed stuck oral colitis with constipation and MR received. Continue bowel regimen. Also revealed sacral decubitus ulcer with osteomyelitis. Continue antibiotics will consult General surgery. Right upper lobe consultation remains the same whether this is progression of the cancer with airway obstruction which is unclear. Will consult oncology Subjective Date/time seen: 07/26/23 12:36 Interval history: Pleasant 77-year-old male with history of non-small cell lung cancer considered to be in remission, chronic obstructive pulmonary disease, coronary artery disease, heart failure with preserved ejection fraction, paroxysmal atrial fibrillation on chronic anticoagulation, type 2 diabetes mellitus, hypothyroidism, and other comorbidities who presented to the emergency department via EMS from [facility] for evaluation after he was found to have an abnormal chest x-ray. Patient provides the following history. He endorses a wet but nonproductive cough the last 3 days associated with generalized fatigue, poor appetite, loose stools, and sore throat.? COVID positive. Chest x-ray with complete consolidation of the right upper lobe concerning for pneumonia. CT chest with right upper lobe consolidation may reflect pneumonia in the appropriate clinical context mucous plugging endobronchial lesion out postobstructive pneumonia. Repeat chest x-ray on 07/24/2023 with persistent collapse of right upper lobe. He has been started on cefepime azithromycin and vancomycin. 07/26/2023 discussed with son. Was supposed to see Dr. paz next Saturday. Received radiation and chemo last year did not tolerate and hence stopped
[2023-07-26 14:31] LABS: Pneumococcal Antigen Urine Not Detected (Not Detected)
--- NOTE | 2023-07-26 15:58 | WPDCN ---
Assessment and Plan Assessment and plan (1) Sacral decubitus ulcer: Code(s): L89.159 - Pressure ulcer of sacral region, unspecified stage Status: Acute Assessment and Plan: The sacral decubitus ulcer is stage 2 and appears to be very chronic and actually getting smaller and healing. CT evidence of possible chronic osteomyelitis but the wound is not draining any possible and does not have any necrotic tissue. It does not need any surgical debridement. Would recommend continued offloading pressure off the area and then use of specialized dressings such as DuoDerm patches or other dressings to keep the area clean. Will have wound care nurses look at the wound and make further recommendations. HPI Data of Consult Date/Time: 07/26/23 15:58 Requesting Physician: Cory Loving MD Primary Care Provider: Jewel Aleman MD Consult Narrative Reason for consult: Sacral decubitus ulcer Narrative: Farhan Armstrong is a 77 year old male admitted to the hospital for cough and sore throat and congestion suggestive of upper respiratory tract infection. He subsequently was found to have COVID-19 acute infection. He is currently on isolation protocol on the floor. He has a chronic sacral decubitus ulcer which he states he has had for at least 6 to 8 months. He really does not complain about other being a little sore. CT scan abdomen pelvis was done during this admission and the finding was that he had a sacral decubitus ulcer with some ulceration of the sacrum suggestive of osteomyelitis. Review of Systems Review of Systems: The remainder of the review of systems to include constitutional, HEENT, cardiovascular, respiratory, GI, , integumentary, musculoskeletal, endocrine, immunologic, hematologic, psychiatric, and neurologic are all negative except for which is mentioned above in the HPI. [facility] Past Medical History Medical History (Updated 07/25/23 @ 11:10 by Harshal Stover MD) Aortic valve stenosis Arthritis (03/26/19) Atrial fibrillation with controlled ventricular rate Benign prostatic hyperplasia Chronic congestive heart failure Chronic obstructive pulmonary disease Coronary artery disease (2019) Non-STEMI - left heart cath showed mild coronary artery disease with severe LV dysfunction EF 20% with possible underlying nonischemic cardiomyopathy, no PCI. Depression Diabetes mellitus Diabetic polyneuropathy associated with type 2 diabetes mellitus Fibromyalgia Hypothyroidism Mixed hyperlipidemia Non-small cell carcinoma of lung Status post chemo radiation. Obstructive sleep apnea Restless legs syndrome Sacral decubitus ulcer Type 2 diabetes mellitus Surgical History Surgical History History of hernia repair Umbilical hernia repair. Bilateral inguinal hernia repairs. Family History Family History Sibling Patient's sister is in good health Hypertension Family history of heart disease in male family member before age 55 Mother Family history of heart disease in male family member before age 55 Patient's mother is Family history of congestive heart failure, Onset Age: 70 Father Patient's father is Acute myocardial infarction, Onset Age: 62 Grandparent Depression Family history of arthritis Family history of malignant neoplasm of breast Family history of heart disease in male family member before age 55 Other Cerebrovascular accident Family history of cardiovascular disease Social History Social History (Updated 07/23/23 @ 20:46 by Yocasta Cole PA-C) Social History: Code status: Full code. Smoking packs per day: 1.5 Smoking cigarettes per day: 30.0 Years smoked: 30 Smoking pack-years: 45.00 Smoking status: Former smoker Second hand tobacco smoke exposure: Yes Alcohol intake: never Subst
[2023-07-26 16:45] LABS: Glucose Point of Care 119 mg/dl (65-105)
[2023-07-26] MEDS: AZITHROMYCIN 250 MG TABLET 500 MG PO (17:11)
[2023-07-26] MEDS: oxyCODONE/ACETAMINOPHEN (*CRX) 5-325 MG TABLET 1 TABLET PO (17:11)
[2023-07-26 20:53] LABS: Glucose Point of Care 116 mg/dl (65-105)
[2023-07-26] MEDS: MIRTAZAPINE 15 MG TABLET PO (21:06)
[2023-07-26] MEDS: TAMSULOSIN HCL 0.4 MG CAPSULE PO (21:07)
[2023-07-26] MEDS: rOPINIRole HCL 1 MG TABLET PO (21:07)
[2023-07-26] MEDS: oxyCODONE HCL (*CRX) 2.5 MG TAB IR PO (21:08)
[2023-07-26] MEDS: ACETAMINOPHEN 325 MG TABLET 650 MG PO (21:09)
[2023-07-27] VITALS (10 sets, daily range): BP systolic 111–124; BP diastolic 63–78; PULSE 72–88; RESP 14–22; TEMP 36.4–36.5; O2SAT 93–98
--- NOTE | 2023-07-27 00:46 | PCRCNOTE ---
Pt participating in [facility] link.
[2023-07-27 03:02] LABS: Legionella pneumophila Ag Ur Not Detected (Not Detected)
[2023-07-27] MEDS: SUCRALFATE 1 GM TABLET PO ×3 (06:06→16:56)
[2023-07-27] MEDS: LEVOTHYROXINE SODIUM 25 MCG TABLET PO (06:06)
[2023-07-27] MEDS: CEFEPIME 2 GM/NS 50 ML 2 GM/50 ML BAG IVPB ×3 (06:06→20:52)
[2023-07-27 07:30] LABS: Glucose Point of Care 76 mg/dl (65-105)
[2023-07-27] MEDS: LACTULOSE 20 GM/30 ML UDC PO ×2 (08:07→12:42)
[2023-07-27] MEDS: ARIPiprazole 2 MG TABLET 4 MG PO (08:08)
[2023-07-27] MEDS: guaiFENesin 12 HR 600 MG TABCR 1200 MG PO ×2 (08:08→20:51)
[2023-07-27] MEDS: GABAPENTIN 100 MG CAPSULE PO ×3 (08:08→16:56)
[2023-07-27] MEDS: buPROPion HCL XL (24 HR) 150 MG TABCR 300 MG PO (08:08)
[2023-07-27] MEDS: ASPIRIN 81 MG ENTERIC TABLET PO (08:08)
[2023-07-27] MEDS: ASCORBIC ACID 500 MG TABLET PO ×2 (08:08→16:56)
[2023-07-27] MEDS: polyethylene glycoL 3350 17 GM POWD.PACK PO (08:08)
[2023-07-27] MEDS: APIXABAN 5 MG TABLET PO ×2 (08:08→20:52)
[2023-07-27] MEDS: BISACODYL 5 MG TABLET EC 10 MG PO ×2 (08:08→16:57)
[2023-07-27] MEDS: MULTIVITAMINS /C LUTEIN (CENTRUM SILVER) TABLET *BKC 1 TAB PO (08:08)
[2023-07-27] MEDS: oxyCODONE/ACETAMINOPHEN (*CRX) 5-325 MG TABLET 1 TABLET PO ×2 (08:08→20:51)
[2023-07-27] MEDS: methADONE HCL (*CRX) 5 MG TABLET PO ×2 (08:09→16:56)
[2023-07-27] MEDS: oxyCODONE HCL (*CRX) 2.5 MG TAB IR PO ×2 (08:09→20:51)
[2023-07-27] MEDS: LEVALBUTEROL NEB 1.25 MG/3 ML INHALATION ×4 (08:41→20:22)
[2023-07-27] MEDS: ACETYLCYSTEINE 20% INHAL SOLN 800 MG/4 ML VIAL 200 MG INHALATION ×2 (08:41→16:01)
[2023-07-27] MEDS: IPRATROPIUM BR 0.02% INH SOLN 0.5 MG/2.5 ML VIAL INHALATION ×4 (08:41→20:22)
[2023-07-27] MEDS: DORNASE ALFA INH SOLN 1 MG/ML 2.5 ML AMP 2.5 MG INHALATION ×2 (08:42→20:21)
[2023-07-27 11:04] LABS: Basophils Percent Auto 0.4 % (0.2-1.2); Eosinophils Absolute Auto 0.4 K/mm3 (0-0.3); Eosinophils Percent Auto 8.8 % (0-4.4); Hematocrit 35.6 % (42.0-52.0); Hemoglobin 11.5 g/dL (14.0-18.0); Immature Granulocyte Absolute 0.04 K/mm3 (0.00-0.031); Immature Granulocyte Percent A 0.8 % (0-0.5); Immature Platelet Fraction Pct 2.3 % (0.9-11.2); Lymphocytes Absolute Auto 0.49 K/mm3 (0.9-3.2); Lymphocytes Percent Auto 9.8 % (18.3-44.2); Mean Corpuscular HGB Conc 32.3 g/dl (32-36); Mean Corpuscular Hemoglobin 29.9 pg (26-34); Mean Corpuscular Volume 92.7 fl (80-100); Mean Platelet Volume 12.5 fl (7.4-10.4); Monocytes Absolute Auto 0.5 K/mm3 (0.1-0.6); Neutrophils Absolute Auto 3.5 K/mm3 (1.3-6.7); Neutrophils Percent Auto 70.2 % (45.5-73.1); Nucleated Red Blood Cells Perc 0.8 % (0.0-0.2); Platelet Count Result 107 k/mm3 (150-375); Red Blood Count 3.84 M/mm3 (4.6-6.20); Red Cell Distribution Width 15.2 % (11.5-14.5)
--- NOTE | 2023-07-27 11:09 | PM.PNPUL ---
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 Diagnostic studies have shown a right upper lobe consolidation with some volume loss of the right upper lobe but without complete atelectasis of the right upper lobe. There is no clear-cut evidence of intrabronchial lesion causing atelectasis on chest CT. The patient has been treated with 3 antibiotics and aggressive pulmonary toilet. He had mild leukopenia, no left shift, and no symptoms such as cough sputum production fever that would suggest healthcare associated pneumonia. MRSA screening is negative. Case was discussed with the hospitalist. We will add Flagyl to his antibiotic regimen for anaerobic coverage and discontinue vancomycin. Anaerobic pneumonia is a possibility. Differential diagnosis also includes causes of non resolving pneumonia such as cryptogenic organizing pneumonia especially with history of radiation to right upper lobe and also history of chemotherapy. Will check CRP. monitor for resolution of the right upper lobe consolidation, continue with pulmonary toilet. (2) History of lung cancer: Code(s): Z85.118 - Personal history of other malignant neoplasm of bronchus and lung Status: Acute (3) Right upper lobe pneumonia: Code(s): J18.9 - Pneumonia, unspecified organism Status: Acute (4) Obstructive sleep apnea: Code(s): G47.33 - Obstructive sleep apnea (adult) (pediatric) Status: Acute (5) Type 2 diabetes mellitus: Code(s): E11.9 - Type 2 diabetes mellitus without complications Status: Acute (6) Chronic obstructive pulmonary disease: Code(s): J44.9 - Chronic obstructive pulmonary disease, unspecified Status: Acute (7) COVID-19: Code(s): U07.1 - COVID-19 Status: Acute (8) CHF (congestive heart failure): Qualifiers: Heart failure chronicity: acute Heart failure type: unspecified Qualified Code(s): I50.9 - Heart failure, unspecified Code(s): I50.9 - Heart failure, unspecified Status: Acute (9) Atrial fibrillation: Qualifiers: Atrial fibrillation type: unspecified Qualified Code(s): I48.91 - Unspecified atrial fibrillation Code(s): I48.91 - Unspecified atrial fibrillation Status: Acute (10) Sacral decubitus ulcer: Code(s): L89.159 - Pressure ulcer of sacral region, unspecified stage Status: Acute (11) Non-small cell carcinoma of lung: Code(s): C34.90 - Malignant neoplasm of unspecified part of unspecified bronchus or lung Status: Acute Subjective Date/time seen: 07/27/23 11:09 Interval history: Patient history of non-small cell lung cancer considered to be in remission, chronic obstructive pulmonary disease, coronary artery disease, heart failure with preserved ejection fraction, paroxysmal atrial fibrillation on chronic anticoagulation, type 2 diabetes mellitus, hypothyroidism, and other comorbidities who presented to the emergency department with cough generalized weakness and abnormal chest x-ray. Patient was found to have a right upper lobe consolidation with volume loss and has been treated with 3 antibiotics for possible COVID pneumonia. On admission he had no significant leukocytosis no left shift. His MRSA screening has been negative. Upon questioning the patient continues to complain of fatigue. He has less cough. He has no sputum production fever chills hemoptysis night sweats. He denied having choking episodes. Review of Systems Review of Systems: All systems reviewed & are unremarkable except as noted in HPI and below (HPI and below)
[2023-07-27] MEDS: metroNIDAZOLE 500 MG/ISO 100ML 500 MG/100 ML BAG 100 MG IVPB ×2 (11:11→16:56)
[2023-07-27 11:13] LABS: Alanine Aminotransferase 11 U/L (6-50); Alkaline Phosphatase 57 U/L (38-126); Anion Gap 2 mmol/L (8-16); Aspartate Amino Transferase 20 U/L (17-59); Bilirubin,Total 0.5 mg/dL (0.2-1.3); Blood Urea Nitrogen 17 mg/dL (9-20); Calcium 8.1 mg/dL (8.4-10.2); Carbon Dioxide 29 mmol/L (22-30); Chloride 106 mmol/L (98-107); Estimated CRCL calculation 57 ml/min; Estimated Glomerular Filt Rate > 60; Glucose 83 mg/dL (65-110); Magnesium 2.2 mg/dL (1.6-2.3); Potassium 4.6 mmol/L (3.4-5.0); Sodium 137 mmol/L (137-145)
[2023-07-27 11:40] LABS: Glucose Point of Care 99 mg/dl (65-105)
[2023-07-27 11:48] LABS: CRP 1.9 mg/dL (<1.0)
--- NOTE | 2023-07-27 12:11 | PM.IMPN ---
Progress Note: A&P Assessment and Plan (1) COVID-19: Code(s): U07.1 - COVID-19 Status: Acute (2) Right upper lobe pneumonia: Code(s): J18.9 - Pneumonia, unspecified organism Status: Acute (3) History of lung cancer: Code(s): Z85.118 - Personal history of other malignant neoplasm of bronchus and lung Status: Acute (4) Type 2 diabetes mellitus: Code(s): E11.9 - Type 2 diabetes mellitus without complications Status: Acute (5) Obstructive sleep apnea: Code(s): G47.33 - Obstructive sleep apnea (adult) (pediatric) Status: Acute (6) Hypothyroidism: Code(s): E03.9 - Hypothyroidism, unspecified Status: Acute (7) Coronary artery disease: Onset Date: 2018 Code(s): I25.10 - Atherosclerotic heart disease of [place] coronary artery without angina pectoris Status: Acute (8) Chronic obstructive pulmonary disease: Qualifiers: COPD type: COPD with acute exacerbation Qualified Code(s): J44.1 - Chronic obstructive pulmonary disease with (acute) exacerbation Code(s): J44.9 - Chronic obstructive pulmonary disease, unspecified Status: Acute (9) Thrombocytopenia: Code(s): D69.6 - Thrombocytopenia, unspecified Status: Acute Plan The patient presented to the emergency department for evaluation after he was found to have an abnormal chest x-ray which was done for evaluation of fatigue, decreased appetite, sore throat, nonproductive cough as per HPI. Labs, imaging, EKG, and all reports were personally reviewed. He tested positive for COVID. Chest CT showed right upper lobe consolidation which does not look like COVID pneumonia. He has been started on cefepime, azithromycin, and vancomycin as postobstructive pneumonia is a consideration given history of lung cancer and a previously documented 2.5 x 1.4 cm nodule in the perihilar right upper lobe. However this may be due to mucus plugging or possible endobronchial lesion as well. Attempt sputum for culture. Check Legionella pneumococcal antigens as well as mycoplasma IgM. He has been started on scheduled bronchodilators. Add Pulmozyme, Mucinex, and Cornet to mobilize secretions. CPT has been ordered. Consulted Pulmonary. Abdominal discomfort led to CT abdomen and pelvis which revealed stuck oral colitis with constipation and MR received. Continue bowel regimen. Also revealed sacral decubitus ulcer with osteomyelitis. Continue antibiotics. Consulted General surgery. Continue wound care. Right upper lobe consultation remains the same whether this is progression of the cancer with airway obstruction which is unclear. Consulted Oncology. Add Flagyl for anaerobic coverage is. Will discontinue vancomycin. Finished azithromycin course Subjective Date/time seen: 07/27/23 12:11 Interval history: Pleasant 77-year-old male with history of non-small cell lung cancer considered to be in remission, chronic obstructive pulmonary disease, coronary artery disease, heart failure with preserved ejection fraction, paroxysmal atrial fibrillation on chronic anticoagulation, type 2 diabetes mellitus, hypothyroidism, and other comorbidities who presented to the emergency department via EMS from [facility] for evaluation after he was found to have an abnormal chest x-ray. Patient provides the following history. He endorses a wet but nonproductive cough the last 3 days associated with generalized fatigue, poor appetite, loose stools, and sore throat.? COVID positive. Chest x-ray with complete consolidation of the right upper lobe concerning for pneumonia. CT chest with right upper lobe consolidation may reflect pneumonia in the appropriate clinical context mucous plugging endobronchial lesion out postobstructive pneumonia. Repeat chest x-ray on 07/24/2023 with persistent collapse of right upper lobe. He has been started on cefepime azithromycin and vancomycin. 07/26/2023 discussed with son.
[2023-07-27 16:41] LABS: Glucose Point of Care 85 mg/dl (65-105)
[2023-07-27] MEDS: AZITHROMYCIN 250 MG TABLET 500 MG PO (16:56)
[2023-07-27] MEDS: MIRTAZAPINE 15 MG TABLET PO (20:50)
[2023-07-27] MEDS: TAMSULOSIN HCL 0.4 MG CAPSULE PO (20:51)
[2023-07-27] MEDS: rOPINIRole HCL 1 MG TABLET PO (20:51)
[2023-07-27 22:24] LABS: Glucose Point of Care 100 mg/dl (65-105)
[2023-07-28] VITALS (14 sets, daily range): BP systolic 128–146; BP diastolic 73–78; PULSE 78–92; RESP 18–20; TEMP 36.4–37.2; O2SAT 94–98
[2023-07-28] MEDS: ACETYLCYSTEINE 20% INHAL SOLN 800 MG/4 ML VIAL 200 MG INHALATION ×3 (00:46→15:04)
[2023-07-28] MEDS: LEVALBUTEROL NEB 1.25 MG/3 ML INHALATION ×5 (00:47→15:04)
[2023-07-28] MEDS: IPRATROPIUM BR 0.02% INH SOLN 0.5 MG/2.5 ML VIAL INHALATION ×5 (00:47→15:04)
[2023-07-28] MEDS: metroNIDAZOLE 500 MG/ISO 100ML 500 MG/100 ML BAG 100 MG IVPB ×4 (01:38→16:46)
[2023-07-28 05:26] LABS: Basophils Percent Auto 0.2 % (0.2-1.2); Eosinophils Absolute Auto 0.3 K/mm3 (0-0.3); Eosinophils Percent Auto 7.2 % (0-4.4); Hematocrit 33.9 % (42.0-52.0); Hemoglobin 10.8 g/dL (14.0-18.0); Immature Granulocyte Absolute 0.01 K/mm3 (0.00-0.031); Immature Granulocyte Percent A 0.2 % (0-0.5); Lymphocytes Absolute Auto 0.48 K/mm3 (0.9-3.2); Lymphocytes Percent Auto 10.5 % (18.3-44.2); Mean Corpuscular HGB Conc 31.9 g/dl (32-36); Mean Corpuscular Hemoglobin 29.3 pg (26-34); Mean Corpuscular Volume 91.9 fl (80-100); Mean Platelet Volume 10.2 fl (7.4-10.4); Monocytes Absolute Auto 0.5 K/mm3 (0.1-0.6); Monocytes Percent Auto 11.2 % (2.6-8.5); Neutrophils Absolute Auto 3.2 K/mm3 (1.3-6.7); Neutrophils Percent Auto 70.7 % (45.5-73.1); Platelet Count Result 103 k/mm3 (150-375); Red Blood Count 3.69 M/mm3 (4.6-6.20); Red Cell Distribution Width 14.8 % (11.5-14.5); White Blood Count 4.6 K/mm3 (4.5-10.0)
[2023-07-28 05:37] LABS: Alanine Aminotransferase 11 U/L (6-50); Albumin Level 2.8 g/dL (3.5-5.1); Alkaline Phosphatase 68 U/L (38-126); Anion Gap 3 mmol/L (8-16); Aspartate Amino Transferase 15 U/L (17-59); Bilirubin,Total 0.3 mg/dL (0.2-1.3); Blood Urea Nitrogen 17 mg/dL (9-20); Calcium 8.1 mg/dL (8.4-10.2); Carbon Dioxide 30 mmol/L (22-30); Chloride 104 mmol/L (98-107); Estimated CRCL calculation 51 ml/min; Estimated Glomerular Filt Rate > 60; Glucose 68 mg/dL (65-110); Magnesium 2.1 mg/dL (1.6-2.3); Potassium 4.2 mmol/L (3.4-5.0); Sodium 137 mmol/L (137-145)
[2023-07-28] MEDS: CEFEPIME 2 GM/NS 50 ML 2 GM/50 ML BAG IVPB ×3 (05:59→21:17)
[2023-07-28] MEDS: SUCRALFATE 1 GM TABLET PO ×3 (06:00→16:50)
[2023-07-28] MEDS: LEVOTHYROXINE SODIUM 25 MCG TABLET PO (06:00)
[2023-07-28] MEDS: ACETAMINOPHEN 325 MG TABLET 650 MG PO (06:42)
[2023-07-28 08:16] LABS: Glucose Point of Care 75 mg/dl (65-105)
[2023-07-28] MEDS: LACTULOSE 20 GM/30 ML UDC PO ×2 (08:56→16:51)
[2023-07-28] MEDS: buPROPion HCL XL (24 HR) 150 MG TABCR 300 MG PO (08:57)
[2023-07-28] MEDS: polyethylene glycoL 3350 17 GM POWD.PACK PO (08:57)
[2023-07-28] MEDS: methADONE HCL (*CRX) 5 MG TABLET PO ×2 (08:58→16:50)
[2023-07-28] MEDS: MULTIVITAMINS /C LUTEIN (CENTRUM SILVER) TABLET *BKC 1 TAB PO (08:58)
[2023-07-28] MEDS: GABAPENTIN 100 MG CAPSULE PO ×3 (08:58→16:50)
[2023-07-28] MEDS: ASCORBIC ACID 500 MG TABLET PO ×2 (08:58→16:50)
[2023-07-28] MEDS: ASPIRIN 81 MG ENTERIC TABLET PO (08:58)
[2023-07-28] MEDS: BISACODYL 5 MG TABLET EC 10 MG PO ×2 (08:58→16:50)
[2023-07-28] MEDS: ARIPiprazole 2 MG TABLET 4 MG PO (08:58)
[2023-07-28] MEDS: guaiFENesin 12 HR 600 MG TABCR 1200 MG PO (08:58)
[2023-07-28] MEDS: APIXABAN 5 MG TABLET PO (08:58)
[2023-07-28] MEDS: DORNASE ALFA INH SOLN 1 MG/ML 2.5 ML AMP 2.5 MG INHALATION (11:07)
[2023-07-28] MEDS: oxyCODONE/ACETAMINOPHEN (*CRX) 5-325 MG TABLET 1 TABLET PO (11:56)
[2023-07-28] MEDS: oxyCODONE HCL (*CRX) 2.5 MG TAB IR PO (11:56)
[2023-07-28 12:06] LABS: Glucose Point of Care 93 mg/dl (65-105)
--- NOTE | 2023-07-28 12:17 | PM.PNPUL ---
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 Diagnostic studies have shown a right upper lobe consolidation with some volume loss of the right upper lobe but without complete atelectasis of the right upper lobe. There is no clear-cut evidence of intrabronchial lesion causing atelectasis on chest CT. The patient has been treated with 3 antibiotics and aggressive pulmonary toilet. He had mild leukopenia, no left shift, and no symptoms such as cough sputum production fever that would suggest healthcare associated pneumonia. MRSA screening is negative. Case was discussed with the hospitalist. Since yesterday the patient has been on Flagyl for possible aspiration pneumonia. Respiratory status essentially unchanged over the last 48 hours. Patient has no evidence of cough chest congestion or sputum production. He was complaining of wheezing but his lung exam was unremarkable. He has no leukocytosis. CRP is not elevated. Eosinophil count creeping up. Last chest x-ray essentially unchanged. Presentation and diagnostic studies not quite typical for pneumonia. Other entities such as the cryptogenic organizing pneumonia are also in the differential diagnosis. At this point will continue with current regimen of antibiotics and pulmonary toilet. Will repeat chest x-ray and if no improvement will consider invasive procedure like bronchoscopy. (2) History of lung cancer: Code(s): Z85.118 - Personal history of other malignant neoplasm of bronchus and lung Status: Acute (3) Right upper lobe pneumonia: Code(s): J18.9 - Pneumonia, unspecified organism Status: Acute (4) Obstructive sleep apnea: Code(s): G47.33 - Obstructive sleep apnea (adult) (pediatric) Status: Acute (5) Type 2 diabetes mellitus: Code(s): E11.9 - Type 2 diabetes mellitus without complications Status: Acute (6) Chronic obstructive pulmonary disease: Code(s): J44.9 - Chronic obstructive pulmonary disease, unspecified Status: Acute (7) COVID-19: Code(s): U07.1 - COVID-19 Status: Acute (8) CHF (congestive heart failure): Qualifiers: Heart failure chronicity: acute Heart failure type: unspecified Qualified Code(s): I50.9 - Heart failure, unspecified Code(s): I50.9 - Heart failure, unspecified Status: Acute (9) Atrial fibrillation: Qualifiers: Atrial fibrillation type: unspecified Qualified Code(s): I48.91 - Unspecified atrial fibrillation Code(s): I48.91 - Unspecified atrial fibrillation Status: Acute (10) Sacral decubitus ulcer: Code(s): L89.159 - Pressure ulcer of sacral region, unspecified stage Status: Acute (11) Non-small cell carcinoma of lung: Code(s): C34.90 - Malignant neoplasm of unspecified part of unspecified bronchus or lung Status: Acute Subjective Date/time seen: 07/28/23 12:17 Interval history: Patient complaining of some wheezing. He has no shortness of breath. He remains on room air. Has been bedridden since admission to the hospital afebrile. Refusing nebulized treatments. Has no cough or sputum production. Review of Systems Review of Systems: All systems reviewed & are unremarkable except as noted in HPI and below Exam Narrative: GENERAL APPEARANCE: Well developed, well nourished, alert and cooperative, and appears to be in no acute distress while on room air SKIN: Inspection of the skin reveals no rashes, ulcerations or petechiae. HEENT: Sclerae anicteric and conjunctivae pink and moist. Extraocular movements were intact and pupil
--- NOTE | 2023-07-28 12:29 | PM.IMPN ---
Progress Note: A&P Assessment and Plan (1) COVID-19: Code(s): U07.1 - COVID-19 Status: Acute (2) Right upper lobe pneumonia: Code(s): J18.9 - Pneumonia, unspecified organism Status: Acute (3) History of lung cancer: Code(s): Z85.118 - Personal history of other malignant neoplasm of bronchus and lung Status: Acute (4) Type 2 diabetes mellitus: Code(s): E11.9 - Type 2 diabetes mellitus without complications Status: Acute (5) Obstructive sleep apnea: Code(s): G47.33 - Obstructive sleep apnea (adult) (pediatric) Status: Acute (6) Hypothyroidism: Code(s): E03.9 - Hypothyroidism, unspecified Status: Acute (7) Coronary artery disease: Onset Date: 2018 Code(s): I25.10 - Atherosclerotic heart disease of [place] coronary artery without angina pectoris Status: Acute (8) Chronic obstructive pulmonary disease: Qualifiers: COPD type: COPD with acute exacerbation Qualified Code(s): J44.1 - Chronic obstructive pulmonary disease with (acute) exacerbation Code(s): J44.9 - Chronic obstructive pulmonary disease, unspecified Status: Acute (9) Thrombocytopenia: Code(s): D69.6 - Thrombocytopenia, unspecified Status: Acute Plan The patient presented to the emergency department for evaluation after he was found to have an abnormal chest x-ray which was done for evaluation of fatigue, decreased appetite, sore throat, nonproductive cough as per HPI. Labs, imaging, EKG, and all reports were personally reviewed. He tested positive for COVID. Chest CT showed right upper lobe consolidation which does not look like COVID pneumonia. He has been started on cefepime, azithromycin, and vancomycin as postobstructive pneumonia is a consideration given history of lung cancer and a previously documented 2.5 x 1.4 cm nodule in the perihilar right upper lobe. However this may be due to mucus plugging or possible endobronchial lesion as well. Attempt sputum for culture. Check Legionella pneumococcal antigens as well as mycoplasma IgM. He has been started on scheduled bronchodilators. Add Pulmozyme, Mucinex, and Cornet to mobilize secretions. CPT has been ordered. Consulted Pulmonary. Abdominal discomfort led to CT abdomen and pelvis which revealed stuck oral colitis with constipation and MR received. Continue bowel regimen. Also revealed sacral decubitus ulcer with osteomyelitis. Continue antibiotics. Consulted General surgery. Continue wound care. Right upper lobe consultation remains the same whether this is progression of the cancer with airway obstruction which is unclear. Consulted Oncology. Add Flagyl for anaerobic coverage is. Will discontinue vancomycin. Finish azithromycin course Recheck chest x-ray in a.m. continue pulmonary toilet as ordered Subjective Date/time seen: 07/28/23 12:29 Interval history: Pleasant 77-year-old male with history of non-small cell lung cancer considered to be in remission, chronic obstructive pulmonary disease, coronary artery disease, heart failure with preserved ejection fraction, paroxysmal atrial fibrillation on chronic anticoagulation, type 2 diabetes mellitus, hypothyroidism, and other comorbidities who presented to the emergency department via EMS from [facility] for evaluation after he was found to have an abnormal chest x-ray. Patient provides the following history. He endorses a wet but nonproductive cough the last 3 days associated with generalized fatigue, poor appetite, loose stools, and sore throat.? COVID positive. Chest x-ray with complete consolidation of the right upper lobe concerning for pneumonia. CT chest with right upper lobe consolidation may reflect pneumonia in the appropriate clinical context mucous plugging endobronchial lesion out postobstructive pneumonia. Repeat chest x-ray on 07/24/2023 with persistent collapse of right upper lobe. He has been started on cefepime
[2023-07-28 16:53] LABS: Glucose Point of Care 127 mg/dl (65-105)
[2023-07-28 20:57] LABS: Glucose Point of Care 105 mg/dl (65-105)
[2023-07-28] MEDS: ONDANSETRON HCL ODT 4 MG TABLET 8 MG PO (21:17)
[2023-07-28] MEDS: PANTOPRAZOLE SODIUM IV 40 MG VIAL IV PUSH (23:58)
[2023-07-28] MEDS: ONDANSETRON INJ 4 MG/2 ML VIAL IV PUSH (23:58)
[2023-07-29] VITALS (27 sets, daily range): BP systolic 108–149; BP diastolic 61–80; PULSE 84–105; RESP 18–24; TEMP 36.3–37.7; O2SAT 92–97
[2023-07-29] MEDS: metroNIDAZOLE 500 MG/ISO 100ML 500 MG/100 ML BAG 100 MG IVPB ×4 (00:07→17:01)
--- NOTE | 2023-07-29 00:32 | PM.EVENT ---
Event Note Event Note Event Note: Nursing staff called me around 22:30 on the 10th to some me the patient was having coffee-ground emesis. I am made the patient NPO and place patient on Protonix 40 mg IV q.12 hours. Patient continued to have multiple episodes of what appeared to be coffee-ground emesis per nursing report. I went to evaluate the patient at time of my evaluation the emesis. More bilious in nature and I requested that his specimen be sent down for gastroccult. Gastric occult was negative for blood. However the patient was still having intractable vomiting. I went to evaluate the patient in he was having pooling of the bilious material in the posterior portion of his mouth. He was unable to clear the material and was having rattling respirations at the time. I requested NG tube be placed. NG tube placement was unsuccessful despite multiple attempts. The patient also developed tachycardia. Stat EKG was performed which demonstrated sinus tachycardia with a right bundle-branch block. The patient had developed a new onset of heart epoxy respiratory failure. His chest x-ray was reviewed by myself in demonstrated findings consistent with his prior x-ray of right upper lobe collapse and consolidation unchanged from prior. Otherwise the remainder legs appeared relatively clear. The patient's stomach was noted to be significantly dilated on KUB. The patient on exam the patient had significant severe tenderness in the epigastric region. He was agreeable with rest of the exam but was uncooperative with evaluation of his abdomen. He did have some tympany on percussion. Nursing staff reports that the patient has had several large bowel movements. He has remained afebrile. Patient has had numerous episodes of large volume bilious emesis during my evaluation and immediately after. Hand due to lack of telemetry monitoring patient was transferred to IMU for close monitoring given his change in clinical condition. Patient was started on supplemental oxygen. I did try to clarify the code status with the patient. Although he was alert oriented times 2-3 he did not know what he would want for resuscitation status. On review of the patient's chart case management had discussed code status with the patient and his healthcare power of health care attorney the patient's code status post be changed to DNR. This order was placed in the computer. Patient is having acute intractable nausea vomiting with bilious emesis. I suspect the patient has had a recurrence of the bowel obstruction. NG tube has been ordered but nursing staff is having difficulty with placement. He the patient would benefit from gastric decompression given the distention of his stomach on x-ray. I do not feel comfortable seeing you patient for CT did of the abdomen and pelvis with him having intractable vomiting at this time as he is at high risk for aspiration as he was having difficulty controlling the residual emesis in his posterior oropharynx and required suctioning multiple times. General surgery is already involved in the patient's case. Patient is now NPO. Patient has acute hypoxic respiratory failure. The patient likely does have some component of aspiration pneumonitis now given his recent vomiting and lung exam. No evidence of definitive infiltrates at this point. Will repeat CBC in a.m. and monitor. Patient is already on nebulizers, mucolytics and aggressive pulmonary toilet. Pulmonology is already following with the patient. 55 minute spent in critical care activities. Due to a high probability of clinically significant, life threatening deterioration, the patient required my highest level of preparedness to intervene emergently and I personally spent this critical care time directly and personally managing the patient. This critical care time included obtaining a history; examining the patient; pulse oximetry; ordering and review of studies; arranging urgent treatment with development of
[2023-07-29 00:46] LABS: Hematocrit 37.4 % (42.0-52.0); Hemoglobin 12.2 g/dL (14.0-18.0)
[2023-07-29 01:02] LABS: Gastric Negative Control Negative; Gastric Positive Control Positive; Occult Blood Gastric Fluid Negative; pH Gastric Fluid 4 (1-8)
[2023-07-29] MEDS: LEVALBUTEROL NEB 1.25 MG/3 ML INHALATION ×7 (01:10→23:59)
[2023-07-29] MEDS: IPRATROPIUM BR 0.02% INH SOLN 0.5 MG/2.5 ML VIAL INHALATION ×7 (01:11→23:59)
[2023-07-29] MEDS: ACETYLCYSTEINE 20% INHAL SOLN 800 MG/4 ML VIAL 200 MG INHALATION ×3 (01:11→23:59)
--- NOTE | 2023-07-29 01:35 | ECG_ITS ---
Measurements Intervals [place] Rate: 109 P: 68 [place]: 192 QRS: 50 QRSD: 102 T: 244 QT: 358 QTc: 484 Interpretive Statements SINUS TACHYCARDIA BORDERLINE ST-T WAVE ABNORMALITY- DIFFUSE LEADS BASELINE ARTIFACT- I, II, AVR, AVL, AVF, V1-V6 ABNORMAL ECG COMPARED TO ECG 07/23/2023 16:15:25 SINUS TACHYCARDIA NOW PRESENT Electronically Signed On 07-29-2023 6:32:29 CDT by Trell Walters D.O.
--- NOTE | 2023-07-29 02:28 | PC.NURSE ---
first attempt of ng was unsuccessful per radiology, 2nd attempt also unsuccessful, and Pt was not very cooperative with procedures.
[2023-07-29] MEDS: LIDOCAINE HCL 2% JELLY 5 ML TUBE 1 APPLIC MUCOUS MEM (02:41)
--- NOTE | 2023-07-29 04:32 | PC.NURSE ---
report called to IMU RN. Pt belongings gathered and preparing to transfer Pt.
--- NOTE | 2023-07-29 05:29 | PC.NURSE ---
This patient, Farhan Armstrong, was received from [facility] on 07/29/23 at 0444 for closer monitoring. Patient/family oriented to unit policies and routines
[2023-07-29] MEDS: CEFEPIME 2 GM/NS 50 ML 2 GM/50 ML BAG IVPB ×3 (06:10→21:13)
[2023-07-29 07:02] LABS: Basophils Percent Auto 0.1 % (0.2-1.2); Eosinophils Percent Auto 0.1 % (0-4.4); Hematocrit 34.9 % (42.0-52.0); Hemoglobin 11.4 g/dL (14.0-18.0); Immature Granulocyte Absolute 0.03 K/mm3 (0.00-0.031); Immature Granulocyte Percent A 0.4 % (0-0.5); Lymphocytes Absolute Auto 0.36 K/mm3 (0.9-3.2); Lymphocytes Percent Auto 4.9 % (18.3-44.2); Mean Corpuscular HGB Conc 32.7 g/dl (32-36); Mean Corpuscular Hemoglobin 29.3 pg (26-34); Mean Corpuscular Volume 89.7 fl (80-100); Mean Platelet Volume 10.3 fl (7.4-10.4); Monocytes Absolute Auto 0.4 K/mm3 (0.1-0.6); Monocytes Percent Auto 5.6 % (2.6-8.5); Neutrophils Absolute Auto 6.5 K/mm3 (1.3-6.7); Neutrophils Percent Auto 88.9 % (45.5-73.1); Platelet Count Result 128 k/mm3 (150-375); Red Blood Count 3.89 M/mm3 (4.6-6.20); Red Cell Distribution Width 14.7 % (11.5-14.5); White Blood Count 7.3 K/mm3 (4.5-10.0)
[2023-07-29 07:11] LABS: Lactic Acid Reflex 0.8 mmol/L (0.7-2.0)
[2023-07-29 07:12] LABS: Alanine Aminotransferase 12 U/L (6-50); Albumin Level 3.1 g/dL (3.5-5.1); Alkaline Phosphatase 71 U/L (38-126); Anion Gap 6 mmol/L (8-16); Aspartate Amino Transferase 19 U/L (17-59); Bilirubin,Total 0.3 mg/dL (0.2-1.3); Blood Urea Nitrogen 26 mg/dL (9-20); Calcium 8.2 mg/dL (8.4-10.2); Carbon Dioxide 27 mmol/L (22-30); Chloride 103 mmol/L (98-107); Estimated CRCL calculation 47 ml/min; Estimated Glomerular Filt Rate > 60; Glucose 116 mg/dL (65-110); Potassium 4.4 mmol/L (3.4-5.0); Sodium 136 mmol/L (137-145)
[2023-07-29 07:46] LABS: Glucose Point of Care 125 mg/dl (65-105)
[2023-07-29 07:47] LABS: Procalcitonin 0.1 ng/mL
[2023-07-29] MEDS: DORNASE ALFA INH SOLN 1 MG/ML 2.5 ML AMP 2.5 MG INHALATION ×2 (08:22→20:13)
--- NOTE | 2023-07-29 09:32 | PM.PNPUL ---
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 Diagnostic studies have shown a right upper lobe consolidation with some volume loss of the right upper lobe but without complete atelectasis of the right upper lobe. There is no clear-cut evidence of intrabronchial lesion causing atelectasis on chest CT. The patient has been treated with 3 antibiotics and aggressive pulmonary toilet. He had mild leukopenia, no left shift, and no symptoms such as cough sputum production fever that would suggest healthcare associated pneumonia. MRSA screening is negative. the patient has been on Flagyl for possible aspiration pneumonia. Respiratory status essentially unchanged over the last 48 hours. Patient has no evidence of cough chest congestion or sputum production. He was complaining of wheezing but his lung exam was unremarkable. He has no leukocytosis. CRP is not elevated. Eosinophil count not elevated today. Today's chest x-ray essentially unchanged. I would finish a 7 day antibiotic treatment with ceftriaxone, 5 day treatment with azithromycin. I would keep the patient on Flagyl for possible anaerobic pneumonia. Will repeat COVID PCR; if negative will schedule bronchoscopy over the next couple of days. (2) History of lung cancer: Code(s): Z85.118 - Personal history of other malignant neoplasm of bronchus and lung Status: Acute (3) Right upper lobe pneumonia: Code(s): J18.9 - Pneumonia, unspecified organism Status: Acute (4) Obstructive sleep apnea: Code(s): G47.33 - Obstructive sleep apnea (adult) (pediatric) Status: Acute (5) Type 2 diabetes mellitus: Code(s): E11.9 - Type 2 diabetes mellitus without complications Status: Acute (6) Chronic obstructive pulmonary disease: Code(s): J44.9 - Chronic obstructive pulmonary disease, unspecified Status: Acute (7) COVID-19: Code(s): U07.1 - COVID-19 Status: Acute (8) CHF (congestive heart failure): Qualifiers: Heart failure chronicity: acute Heart failure type: unspecified Qualified Code(s): I50.9 - Heart failure, unspecified Code(s): I50.9 - Heart failure, unspecified Status: Acute (9) Atrial fibrillation: Qualifiers: Atrial fibrillation type: unspecified Qualified Code(s): I48.91 - Unspecified atrial fibrillation Code(s): I48.91 - Unspecified atrial fibrillation Status: Acute (10) Sacral decubitus ulcer: Code(s): L89.159 - Pressure ulcer of sacral region, unspecified stage Status: Acute (11) Non-small cell carcinoma of lung: Code(s): C34.90 - Malignant neoplasm of unspecified part of unspecified bronchus or lung Status: Acute Subjective Date/time seen: 07/29/23 09:32 Interval history: Events of last p.m. noted. No change in respiratory status although the patient has been on supplemental oxygen at 2 liters/minute since yesterday. Afebrile. Chest x-ray unchanged Review of Systems Review of Systems: All systems reviewed & are unremarkable except as noted in HPI and below (HPI and below) Exam Narrative: GENERAL APPEARANCE: Well developed, well nourished, alert and cooperative, and appears to be in no acute distress while on room air SKIN: Inspection of the skin reveals no rashes, ulcerations or petechiae. HEENT: Sclerae anicteric and conjunctivae pink and moist. Extraocular movements were intact and pupils were equal, round, dry oral mucosa. NECK: Supple. There was no thyroid enlargement, and no tenderness, or masses were felt. CHEST: Normal AP diameter and normal c
[2023-07-29] MEDS: PANTOPRAZOLE SODIUM IV 40 MG VIAL IV PUSH ×2 (09:43→21:13)
[2023-07-29 11:25] LABS: SARS-CoV-2 RNA PCR Positive (Negative)
[2023-07-29 12:00] LABS: Glucose Point of Care 86 mg/dl (65-105)
--- NOTE | 2023-07-29 13:24 | PC.NURSE ---
At 1324, This RN went to assess patient and administer scheduled antibiotics. Patient was found with NG tube in lap. When asked what happened, patient stated It was in my nose and I wanted it out . MD notified and updated, and further orders obtained. RN to continue to monitor.
[2023-07-29 14:06] LABS: Mycoplasma IgM Antibody Titer 104 U/mL (<770)
--- NOTE | 2023-07-29 16:17 | PM.IMPN ---
Progress Note: A&P Assessment and Plan (1) COVID-19: Code(s): U07.1 - COVID-19 Status: Acute (2) Right upper lobe pneumonia: Code(s): J18.9 - Pneumonia, unspecified organism Status: Acute (3) History of lung cancer: Code(s): Z85.118 - Personal history of other malignant neoplasm of bronchus and lung Status: Acute (4) Type 2 diabetes mellitus: Code(s): E11.9 - Type 2 diabetes mellitus without complications Status: Acute (5) Obstructive sleep apnea: Code(s): G47.33 - Obstructive sleep apnea (adult) (pediatric) Status: Acute (6) Hypothyroidism: Code(s): E03.9 - Hypothyroidism, unspecified Status: Acute (7) Coronary artery disease: Onset Date: 2018 Code(s): I25.10 - Atherosclerotic heart disease of [place] coronary artery without angina pectoris Status: Acute (8) Chronic obstructive pulmonary disease: Qualifiers: COPD type: COPD with acute exacerbation Qualified Code(s): J44.1 - Chronic obstructive pulmonary disease with (acute) exacerbation Code(s): J44.9 - Chronic obstructive pulmonary disease, unspecified Status: Acute (9) Thrombocytopenia: Code(s): D69.6 - Thrombocytopenia, unspecified Status: Acute Plan The patient presented to the emergency department for evaluation after he was found to have an abnormal chest x-ray which was done for evaluation of fatigue, decreased appetite, sore throat, nonproductive cough as per HPI. Labs, imaging, EKG, and all reports were personally reviewed. He tested positive for COVID. Chest CT showed right upper lobe consolidation which does not look like COVID pneumonia. He has been started on cefepime, azithromycin, and vancomycin as postobstructive pneumonia is a consideration given history of lung cancer and a previously documented 2.5 x 1.4 cm nodule in the perihilar right upper lobe. However this may be due to mucus plugging or possible endobronchial lesion as well. Attempt sputum for culture. Check Legionella pneumococcal antigens as well as mycoplasma IgM. He has been started on scheduled bronchodilators. Add Pulmozyme, Mucinex, and Cornet to mobilize secretions. CPT has been ordered. Consulted Pulmonary. Abdominal discomfort led to CT abdomen and pelvis which revealed stuck oral colitis with constipation and MR received. Continue bowel regimen. Also revealed sacral decubitus ulcer with osteomyelitis. Continue antibiotics. Consulted General surgery. Continue wound care. Right upper lobe consultation remains the same whether this is progression of the cancer with airway obstruction which is unclear. Consulted Oncology. Add Flagyl for anaerobic coverage is. Will discontinue vancomycin. Finish azithromycin course. covid still positive. coffee ground emesis, h and h stable. ng placed. abdomen exam is benign. ng accdientally removed. if persistnet n/v, will repeat ct Subjective Date/time seen: 07/29/23 16:17 Interval history: Pleasant 77-year-old male with history of non-small cell lung cancer considered to be in remission, chronic obstructive pulmonary disease, coronary artery disease, heart failure with preserved ejection fraction, paroxysmal atrial fibrillation on chronic anticoagulation, type 2 diabetes mellitus, hypothyroidism, and other comorbidities who presented to the emergency department via EMS from [facility] for evaluation after he was found to have an abnormal chest x-ray. Patient provides the following history. He endorses a wet but nonproductive cough the last 3 days associated with generalized fatigue, poor appetite, loose stools, and sore throat.? COVID positive. Chest x-ray with complete consolidation of the right upper lobe concerning for pneumonia. CT chest with right upper lobe consolidation may reflect pneumonia in the appropriate clinical context mucous plugging endobronchial lesion out postobstructive pneumonia. Repeat chest x-ray o
[2023-07-29 18:03] LABS: Glucose Point of Care 89 mg/dl (65-105)
[2023-07-29] MEDS: DEXTROSE 5%/0.45% SOD CHL 1,000 ML 75 ML IV CONT (19:02)
[2023-07-29] MEDS: TAMSULOSIN HCL 0.4 MG CAPSULE PO (21:12)
[2023-07-29] MEDS: rOPINIRole HCL 1 MG TABLET PO (21:13)
[2023-07-29] MEDS: guaiFENesin 12 HR 600 MG TABCR 1200 MG PO (21:13)
[2023-07-29] MEDS: MIRTAZAPINE 15 MG TABLET PO (21:13)
[2023-07-29] MEDS: APIXABAN 5 MG TABLET PO (21:13)
[2023-07-29 23:37] LABS: Glucose Point of Care 86 mg/dl (65-105)
[2023-07-30] VITALS (25 sets, daily range): BP systolic 120–136; BP diastolic 57–71; PULSE 63–118; RESP 18–26; TEMP 36.2–37.3; O2SAT 92–98
[2023-07-30] MEDS: metroNIDAZOLE 500 MG/ISO 100ML 500 MG/100 ML BAG 100 MG IVPB ×5 (00:20→23:46)
[2023-07-30] MEDS: LEVALBUTEROL NEB 1.25 MG/3 ML INHALATION ×4 (03:30→20:40)
[2023-07-30] MEDS: IPRATROPIUM BR 0.02% INH SOLN 0.5 MG/2.5 ML VIAL INHALATION ×4 (03:30→20:40)
[2023-07-30] MEDS: LEVOTHYROXINE SODIUM 25 MCG TABLET PO (06:24)
[2023-07-30] MEDS: SUCRALFATE 1 GM TABLET PO (06:24)
[2023-07-30] MEDS: PANTOPRAZOLE SODIUM IV 40 MG VIAL IV PUSH ×2 (08:53→21:09)
--- NOTE | 2023-07-30 09:35 | PC.NURSE ---
Pt PO meds on hold per Dr Weaver he is NPO and has an order for KU to be done this am.
[2023-07-30] MEDS: DEXTROSE 5%/0.45% SOD CHL 1,000 ML 75 ML IV CONT (10:42)
[2023-07-30 11:16] LABS: Basophils Percent Auto 0.2 % (0.2-1.2); Eosinophils Percent Auto 0.1 % (0-4.4); Hematocrit 33.5 % (42.0-52.0); Hemoglobin 10.8 g/dL (14.0-18.0); Immature Granulocyte Absolute 0.09 K/mm3 (0.00-0.031); Immature Granulocyte Percent A 0.9 % (0-0.5); Lymphocytes Absolute Auto 0.46 K/mm3 (0.9-3.2); Lymphocytes Percent Auto 4.4 % (18.3-44.2); Mean Corpuscular HGB Conc 32.2 g/dl (32-36); Mean Corpuscular Hemoglobin 29.1 pg (26-34); Mean Corpuscular Volume 90.3 fl (80-100); Mean Platelet Volume 9.9 fl (7.4-10.4); Monocytes Absolute Auto 0.8 K/mm3 (0.1-0.6); Monocytes Percent Auto 7.8 % (2.6-8.5); Neutrophils Absolute Auto 9.1 K/mm3 (1.3-6.7); Neutrophils Percent Auto 86.6 % (45.5-73.1); Platelet Count Result 137 k/mm3 (150-375); Red Blood Count 3.71 M/mm3 (4.6-6.20); Red Cell Distribution Width 14.8 % (11.5-14.5); White Blood Count 10.5 K/mm3 (4.5-10.0)
[2023-07-30 11:28] LABS: Alanine Aminotransferase 12 U/L (6-50); Albumin Level 2.8 g/dL (3.5-5.1); Alkaline Phosphatase 63 U/L (38-126); Anion Gap 4 mmol/L (8-16); Aspartate Amino Transferase 21 U/L (17-59); Bilirubin,Total 0.3 mg/dL (0.2-1.3); Blood Urea Nitrogen 21 mg/dL (9-20); Calcium 8.1 mg/dL (8.4-10.2); Carbon Dioxide 28 mmol/L (22-30); Chloride 104 mmol/L (98-107); Estimated CRCL calculation 57 ml/min; Estimated Glomerular Filt Rate > 60; Glucose 125 mg/dL (65-110); Magnesium 1.9 mg/dL (1.6-2.3); Potassium 3.9 mmol/L (3.4-5.0); Sodium 136 mmol/L (137-145)
[2023-07-30] MEDS: DORNASE ALFA INH SOLN 1 MG/ML 2.5 ML AMP 2.5 MG INHALATION ×2 (12:47→20:40)
[2023-07-30 12:52] LABS: Glucose Point of Care 141 mg/dl (65-105)
--- NOTE | 2023-07-30 12:58 | PCNFU ---
Nutrition Follow-Up Complete: Increased protein energy needs related to wound healing as evidenced by stage 3 pressure injury to coccyx Goal:Adequate PO intake at least 75% meals and supplements to support wound healing Maintain weight Pt current nutrition is NPO today. Nutrition recommendation: Resume diet and supplements as previously ordered Last recorded weight is 75.2 kg. Bowel Motility: +BM 07/29 Labs Reviewed: Hgb:11.4, HCT:34.9, Alb:3.1, NA:136, BUN:26, Glu:125 Meds Noted:eliquis, novolog, zofran, protonix Skin: stage III to coccyx Additional Notes: Pt is NPO at this time. Recommend to resume diet when able, supplements of RA BID and Glucerna shakes BID. Monitoring intakes, weights, labs, supplement tolerance, wound healing, plan of care Follow up in 3 days
--- NOTE | 2023-07-30 13:15 | PC.NURSE ---
Dr Weaver made aware by this nurse of abdominal series results
--- NOTE | 2023-07-30 13:42 | PM.IMPN ---
Progress Note: A&P Assessment and Plan (1) COVID-19: Code(s): U07.1 - COVID-19 Status: Acute (2) Right upper lobe pneumonia: Code(s): J18.9 - Pneumonia, unspecified organism Status: Acute (3) History of lung cancer: Code(s): Z85.118 - Personal history of other malignant neoplasm of bronchus and lung Status: Acute (4) Type 2 diabetes mellitus: Code(s): E11.9 - Type 2 diabetes mellitus without complications Status: Acute (5) Obstructive sleep apnea: Code(s): G47.33 - Obstructive sleep apnea (adult) (pediatric) Status: Acute (6) Hypothyroidism: Code(s): E03.9 - Hypothyroidism, unspecified Status: Acute (7) Coronary artery disease: Onset Date: 2018 Code(s): I25.10 - Atherosclerotic heart disease of [place] coronary artery without angina pectoris Status: Acute (8) Chronic obstructive pulmonary disease: Qualifiers: COPD type: COPD with acute exacerbation Qualified Code(s): J44.1 - Chronic obstructive pulmonary disease with (acute) exacerbation Code(s): J44.9 - Chronic obstructive pulmonary disease, unspecified Status: Acute (9) Thrombocytopenia: Code(s): D69.6 - Thrombocytopenia, unspecified Status: Acute Plan The patient presented to the emergency department for evaluation after he was found to have an abnormal chest x-ray which was done for evaluation of fatigue, decreased appetite, sore throat, nonproductive cough as per HPI. Labs, imaging, EKG, and all reports were personally reviewed. He tested positive for COVID. Chest CT showed right upper lobe consolidation which does not look like COVID pneumonia. He has been started on cefepime, azithromycin, and vancomycin as postobstructive pneumonia is a consideration given history of lung cancer and a previously documented 2.5 x 1.4 cm nodule in the perihilar right upper lobe. However this may be due to mucus plugging or possible endobronchial lesion as well. Attempt sputum for culture. Check Legionella pneumococcal antigens as well as mycoplasma IgM. He has been started on scheduled bronchodilators. Add Pulmozyme, Mucinex, and Cornet to mobilize secretions. CPT has been ordered. Consulted Pulmonary. Abdominal discomfort led to CT abdomen and pelvis which revealed stercoral colitis with constipation. Continue bowel regimen. Also revealed sacral decubitus ulcer with osteomyelitis. Continue antibiotics. Consulted General surgery. Continue wound care. Right upper lobe consultation remains the same whether this is progression of the cancer with airway obstruction which is unclear. Consulted Oncology. Await their recommendation. Add Flagyl for anaerobic coverage is. Discontinued vancomycin. Finish azithromycin and cefepime course. covid still positive. Wait until COVID is negative for bronchoscopic evaluation as planned by Pulmonary 07/28/2023: Coffee ground emesis, h and h stable. ng placed. abdomen exam is benign. ng accdientally removed 07/29/2023. X-ray KUB 912 with persistent gastric dilatation could be related to gastroparesis/ileus underlying large stool burden. Will consult GI. Will need to replace NG tube to drain along with enema for stool which he however refused. Will add Reglan for prokinetic effect continue NPO and IV fluids as ordered Subjective Date/time seen: 07/30/23 13:42 Interval history: No overnight events. Breathing about the same. Reports some abdominal pain. Abdomen more distended but nursing staff. Has not had any bowel movement. X-ray with distended stomach and large amount of stool Review of Systems Review of Systems: All systems reviewed & are unremarkable except as noted in HPI and below Exam Narrative: General: Moderately ill-appearing gentleman not in acute distress Respiratory: Coarse breath sound bilaterally no resp distress Cardiovascular: Regular rate and rhythm with S1-S2. Gastrointestinal: Abdomen i
--- NOTE | 2023-07-30 13:43 | PC.NURSE ---
Pt is refusing for staff to turn and reposition him this shift, nurse educated pt still cont to refuse turns.
--- NOTE | 2023-07-30 13:51 | PM.PNPUL ---
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 Diagnostic studies have shown a right upper lobe consolidation with some volume loss of the right upper lobe but without complete atelectasis of the right upper lobe. There is no clear-cut evidence of intrabronchial lesion causing atelectasis on chest CT. The patient has been treated with 3 antibiotics and aggressive pulmonary toilet. He had mild leukopenia, no left shift, and no symptoms such as cough sputum production fever that would suggest healthcare associated pneumonia. MRSA screening is negative. the patient has been on Flagyl for possible aspiration pneumonia. Respiratory status essentially unchanged over the last 48 hours. Patient has no evidence of cough chest congestion or sputum production. Plan: Continue with Flagyl for possible postobstructive anaerobic pneumonia. No need to continue with nebulized mucolytic agents. Repeat chest x-ray in couple of days. If no improvement will proceed with a bronchoscopy provided COVID PCR is negative. (2) History of lung cancer: Code(s): Z85.118 - Personal history of other malignant neoplasm of bronchus and lung Status: Acute (3) Right upper lobe pneumonia: Code(s): J18.9 - Pneumonia, unspecified organism Status: Acute (4) Obstructive sleep apnea: Code(s): G47.33 - Obstructive sleep apnea (adult) (pediatric) Status: Acute (5) Type 2 diabetes mellitus: Code(s): E11.9 - Type 2 diabetes mellitus without complications Status: Acute (6) Chronic obstructive pulmonary disease: Code(s): J44.9 - Chronic obstructive pulmonary disease, unspecified Status: Acute (7) COVID-19: Code(s): U07.1 - COVID-19 Status: Acute (8) CHF (congestive heart failure): Qualifiers: Heart failure chronicity: acute Heart failure type: unspecified Qualified Code(s): I50.9 - Heart failure, unspecified Code(s): I50.9 - Heart failure, unspecified Status: Acute (9) Atrial fibrillation: Qualifiers: Atrial fibrillation type: unspecified Qualified Code(s): I48.91 - Unspecified atrial fibrillation Code(s): I48.91 - Unspecified atrial fibrillation Status: Acute (10) Sacral decubitus ulcer: Code(s): L89.159 - Pressure ulcer of sacral region, unspecified stage Status: Acute (11) Non-small cell carcinoma of lung: Code(s): C34.90 - Malignant neoplasm of unspecified part of unspecified bronchus or lung Status: Acute Subjective Date/time seen: 07/30/23 13:51 Interval history: No new respiratory symptoms. Remains on supplemental oxygen via nasal cannula. Has had abdominal distension. Review of Systems Review of Systems: All systems reviewed & are unremarkable except as noted in HPI and below (HPI and below) Exam Narrative: GENERAL APPEARANCE: Well developed, well nourished, alert and cooperative, and appears to be in no acute distress while on room air SKIN: Inspection of the skin reveals no rashes, ulcerations or petechiae. HEENT: Sclerae anicteric and conjunctivae pink and moist. Extraocular movements were intact and pupils were equal, round, dry oral mucosa. NECK: Supple. There was no thyroid enlargement, and no tenderness, or masses were felt. CHEST: Normal AP diameter and normal contour without any kyphoscoliosis. LUNGS: Clear breath sounds anteriorly no wheezing. CARDIAC: There was a regular rate and rhythm without any murmurs, gallops, rubs. ABDOMEN: Soft and nontender with normal bowel sounds. There was no organomegaly. LYMPH NODES: No lymphade
--- NOTE | 2023-07-30 15:01 | PC.NURSE ---
Pt refused NG tub replacement today Dr Weaver is aware and was given an enema did not tolerate well very small results.
--- NOTE | 2023-07-30 17:17 | WPDGICN ---
Assessment and Plan Assessment and plan (1) Fecal impaction: Code(s): K56.41 - Fecal impaction Status: Acute Assessment and Plan: CT shows:IMPRESSION: 1. Large volume of stool in the colon with stercoral colitis. 2. 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 3. Small pericardial effusion. Unfortunately, that was 9 days ago, and he has not been having BM's or significant attempts to stimulate colon. (2) History of lung cancer: Code(s): Z85.118 - Personal history of other malignant neoplasm of bronchus and lung Status: Acute (3) Chronic obstructive pulmonary disease: Code(s): J44.9 - Chronic obstructive pulmonary disease, unspecified Status: Acute (4) COVID-19: Code(s): U07.1 - COVID-19 Status: Acute Assessment and Plan: he has been treated but is still on isolation (5) Nausea and vomiting in adult: Code(s): R11.2 - Nausea with vomiting, unspecified Status: Acute Assessment and Plan: he had coffee-ground emesis. NG tube was placed but as a stated above he took it out (6) Atrial fibrillation with controlled ventricular rate: Code(s): I48.91 - Unspecified atrial fibrillation Status: Chronic Assessment and Plan: He is on Eliquis 5 mg b.i.d. Plan attempt to stimulate bowel movements with Dulcolax tablets which she normally takes at home every day and also will try to give him citrated magnesium tonight. I am sure that he will refuse any large volume laxatives such as a colonoscopy prep dose of MiraLax. I tried to explain to the patient the importance of this and he seemed to be unaware of the fact that he has an impaction. GI Consult Note Consult date/time: 07/30/23 17:17 HPI: Farhan Armstrong is a 77 year old male Who presented to the emergency department when he was found to have an abnormal chest x-ray to evaluate poor appetite sore throat and cough. He had a CT scan of the chest showing a right upper lobe consolidation is ultimately found to have COVID pneumonia. He was started on antibiotics, cefepime and azithromycin. He also has history of lung cancer and was thought that he could have mucus plugging. He then had a CT scan of the abdomen due to abdominal discomfort that revealed stercoral colitis with a large amount of stool in the colon. That was 9 days ago. Unfortunately has not had any significant bowel movement since. It appears that his home medications include Dulcolax, 10 mg orally per day. He is chronically on narcotics specifically oxycodone 45 mm/ day, and methadone. is a poor historian. He cannot count we if he has problems with his bowels regularly or when he had his last bowel movement. He had NG tube placed yesterday so that he could be given medications and laxatives but he pulled it out. X-ray that I see revealed that it was actually curled his esophagus. Review of Systems Review of Systems: All systems reviewed & are unremarkable except as noted in HPI and below PMFSH Past Medical History Medical History Aortic valve stenosis Arthritis (03/26/19) Atrial fibrillation with controlled ventricular rate Benign prostatic hyperplasia Chronic congestive heart failure Chronic obstructive pulmonary disease Coronary artery disease (2019) Non-STEMI - left heart cath showed mild coronary artery disease with severe LV dysfunction EF 20% with possible underlying nonischemic cardiomyopathy, no PCI. Depression Diabetes mellitus Diabetic polyneuropathy associated with type 2 diabetes mellitus Fibromyalgia Hypothyroidism Mixed hyperlipidemia Non-small cell carcinoma of lung Status post chemo radiation. Obstructive sleep apnea Restless legs syndrome Sacral decubitus ulcer Type 2 diabetes mellitus Surgical History Surgical History History of hernia repair Umbilical hernia repair. B
[2023-07-30] MEDS: METOCLOPRAMIDE HCL INJ 10 MG/2 ML VIAL 5 MG IV PUSH ×2 (17:24→23:46)
[2023-07-30] MEDS: BISACODYL 5 MG TABLET EC 20 MG PO (17:25)
[2023-07-30 17:56] LABS: Glucose Point of Care 121 mg/dl (65-105)
--- NOTE | 2023-07-30 19:43 | PDONCCN ---
HPI - Date of Consult Date/Time: 07/30/23 19:43 Requesting Physician: Cory Loving MD Primary Care Provider: Jewel Aleman MD - Consult Narrative Reason for consult: Anemia and thrombocytopenia Narrative: Farhan Armstrong is a 77 year old male with history of stage II B medically inoperable non-small cell lung cancer status post radiation therapy treatment completed in June 2022. Patient only received cycle 1 of chemotherapy with carboplatin and Taxol on July 2022 and further chemotherapy was discontinued due to poor tolerance. CT chest done on March 2023 showed centrilobular nodules in the lower lobes and upper lobes consistent with pneumonia and stable right upper lobe pulmonary nodule consistent with primary bronchogenic carcinoma. Patient was admitted to the hospital with abnormal chest x-ray. He was complaining of nonproductive cough poor appetite and tiredness and fatigue. He was tested positive for COVID infection. Chest CT was done that showed right upper lobe consolidation suggestive of pneumonia he. He was started on cefepime and azithromycin. Labs also revealed thrombocytopenia and mild anemia. Patient is quite confused a not able to provide much history. GI service was consulted again to fecal impaction. CT scan showed large volume of stool in the colon and colitis. Patient has coffee-ground emesis. NG tube was placed but patient removed it. Patient is also on Eliquis for atrial fibrillation. Review of Systems - Review of Systems All systems reviewed & are unremarkable except as noted in HPI and bel - Neurologic Reports system reviewed and no additional complaints, except as documented [facility] Medical History: Medical History (Last Reviewed 07/30/23 @ 17:20 by Sean Ga MD) Aortic valve stenosis Arthritis Onset Date: 03/26/19 Atrial fibrillation with controlled ventricular rate Benign prostatic hyperplasia Chronic congestive heart failure Chronic obstructive pulmonary disease Coronary artery disease Onset Date: 2018 Non-STEMI - left heart cath showed mild coronary artery disease with severe LV dysfunction EF 20% with possible underlying nonischemic cardiomyopathy, no PCI. Depression Diabetes mellitus Diabetic polyneuropathy associated with type 2 diabetes mellitus Fibromyalgia Hypothyroidism Mixed hyperlipidemia Non-small cell carcinoma of lung Status post chemo radiation. Obstructive sleep apnea Restless legs syndrome Sacral decubitus ulcer Type 2 diabetes mellitus Surgical History: Surgical History (Last Reviewed 07/30/23 @ 17:20 by Sean Ga MD) History of hernia repair Umbilical hernia repair. Bilateral inguinal hernia repairs. Family History: Family History (Last Reviewed 07/30/23 @ 17:20 by Sean Ga MD) Sibling Patient's sister is in good health Hypertension Family history of heart disease in male family member before age 55 Mother Family history of heart disease in male family member before age 55 Patient's mother is Family history of congestive heart failure, Onset Age: 70 Father Patient's father is Acute myocardial infarction, Onset Age: 62 Grandparent Depression Family history of arthritis Family history of malignant neoplasm of breast Family history of heart disease in male family member before age 55 Other Cerebrovascular accident Family history of cardiovascular disease - Social History Social History: Social History (Last Reviewed 07/30/23 @ 17:20 by Sean Ga MD) Alcohol Use: Alcohol intake: never Substance Use: Substance use: never Substance use type: does not use Others: Spiritual care concerns: No Living Arrangements: Living arrangements: assisted living Smoking Status: Smoking status: Former smoker Second hand tobacco smoke exposure: Yes Smoking Pack-years: Smoking packs per day: 1.5 Smoking cigare
[2023-07-30 20:10] LABS: Iron 21 ug/dL (49-181)
[2023-07-30 20:25] LABS: Percent Iron Saturation 10 % (20-50)
[2023-07-30 21:24] LABS: Folic Acid 18.5 ng/mL (2.76->20)
[2023-07-31] VITALS (22 sets, daily range): BP systolic 105–128; BP diastolic 52–64; PULSE 75–108; RESP 16–22; TEMP 36.4–37.2; O2SAT 94–99
[2023-07-31] MEDS: LEVALBUTEROL NEB 1.25 MG/3 ML INHALATION ×5 (00:33→22:16)
[2023-07-31] MEDS: IPRATROPIUM BR 0.02% INH SOLN 0.5 MG/2.5 ML VIAL INHALATION ×5 (00:33→22:15)
[2023-07-31 01:40] LABS: Glucose Point of Care 99 mg/dl (65-105)
[2023-07-31 04:33] LABS: Basophils Percent Auto 0.2 % (0.2-1.2); Eosinophils Percent Auto 0.1 % (0-4.4); Hematocrit 30.8 % (42.0-52.0); Hemoglobin 10.1 g/dL (14.0-18.0); Immature Granulocyte Absolute 0.04 K/mm3 (0.00-0.031); Immature Granulocyte Percent A 0.5 % (0-0.5); Lymphocytes Absolute Auto 0.74 K/mm3 (0.9-3.2); Lymphocytes Percent Auto 8.6 % (18.3-44.2); Mean Corpuscular HGB Conc 32.8 g/dl (32-36); Mean Corpuscular Hemoglobin 29.4 pg (26-34); Mean Corpuscular Volume 89.8 fl (80-100); Mean Platelet Volume 10.5 fl (7.4-10.4); Monocytes Percent Auto 11.1 % (2.6-8.5); Neutrophils Absolute Auto 6.9 K/mm3 (1.3-6.7); Neutrophils Percent Auto 79.5 % (45.5-73.1); Platelet Count Result 152 k/mm3 (150-375); Red Blood Count 3.43 M/mm3 (4.6-6.20); Red Cell Distribution Width 14.6 % (11.5-14.5); White Blood Count 8.6 K/mm3 (4.5-10.0)
[2023-07-31 04:48] LABS: Alanine Aminotransferase 11 U/L (6-50); Albumin Level 2.6 g/dL (3.5-5.1); Alkaline Phosphatase 58 U/L (38-126); Anion Gap 3 mmol/L (8-16); Aspartate Amino Transferase 19 U/L (17-59); Bilirubin,Total 0.3 mg/dL (0.2-1.3); Blood Urea Nitrogen 16 mg/dL (9-20); Calcium 7.9 mg/dL (8.4-10.2); Carbon Dioxide 29 mmol/L (22-30); Chloride 104 mmol/L (98-107); Estimated CRCL calculation 57 ml/min; Estimated Glomerular Filt Rate > 60; Glucose 94 mg/dL (65-110); Magnesium 1.9 mg/dL (1.6-2.3); Potassium 3.5 mmol/L (3.4-5.0); Sodium 136 mmol/L (137-145)
[2023-07-31] MEDS: DEXTROSE 5%/0.45% SOD CHL 1,000 ML 75 ML IV CONT ×2 (05:16→23:35)
[2023-07-31] MEDS: METOCLOPRAMIDE HCL INJ 10 MG/2 ML VIAL 5 MG IV PUSH ×4 (05:16→23:35)
[2023-07-31] MEDS: metroNIDAZOLE 500 MG/ISO 100ML 500 MG/100 ML BAG 100 MG IVPB ×4 (05:16→23:35)
[2023-07-31] MEDS: DORNASE ALFA INH SOLN 1 MG/ML 2.5 ML AMP 2.5 MG INHALATION ×2 (08:29→22:15)
--- NOTE | 2023-07-31 08:52 | PM.IMPN ---
Progress Note: A&P Assessment and Plan (1) Fecal impaction: Code(s): K56.41 - Fecal impaction Status: Acute (2) Right upper lobe consolidation: Code(s): J18.1 - Lobar pneumonia, unspecified organism Status: Acute (3) History of lung cancer: Code(s): Z85.118 - Personal history of other malignant neoplasm of bronchus and lung Status: Acute Plan 77M w/ PMH a fib, CHF, COPD, CAD, depression, diabetes mellitus with polyneuropathy, hypothyroidism, hx of non small cell carcinoma, ANIA, sacral decub ulcer, RLS. Active Problems: RUL pneumonia Covid pneumonia history of lung cancer DM sacral decub ulcer fecal impaction/ileus acute hypoxic respiratory failure Pt oxygen supplementation taken off. Otherwise he has not improved. He still has not had a BM, refusing stool treatments along with NG tube, to the nurses, surgeon, and myself. He has repeatedly asked us to let him . He isn't fully capable, so I've asked the son to speak with the patient, which he will do so today. For now, we will continue flagyl, pulmozyme, docusate. He could potentially be discharged to home if we could resolve his ileus, although palliatiave/home health would be advised to the pt and family. FEN: D51/2NS, NPO GI prophylaxis: protonix DVT prophylaxis: cont AC for a fib Lines: pIV Code Status: DNR Dispo: family discussion for goals of care Subjective Date/time seen: 07/31/23 08:52 Interval history: Pt seen in at bedside, he is lying comfortably. He denies sob, cough, pain, nausea or vomiting. does not know if he had BM or not. he is quite the poor historian otherwise. he reports to nurse and myself, just let me Review of Systems Cardiovascular: Cardiovascular: Denies chest pain and Denies dyspnea Respiratory: Respiratory: Denies cough and Denies dyspnea Gastrointestinal: Gastrointestinal: Denies abdominal pain and Denies vomiting Exam Const: General: no acute distress, alert and Physically active Resp: Effort & Inspection: normal respiratory effort Auscultation: clear to auscultation bilaterally Cardio: Rate: regular rate Rhythm: regular rhythm Heart sounds: S1 normal heart sound present and S2 normal heart sound present GI: GI Palp: No abdominal tenderness and Yes Firmness to palpation present (GI) (at RLQ) Auscultation: normal bowel sounds Extrem: Right upper extremity: no edema Objective Data Vital Signs Vital Signs: Vital Signs - 24 hr 07/30/23 10:00 07/30/23 10:41 07/30/23 12:00 Temperature Pulse Rate 84 Respiratory Rate Blood Pressure Pulse Oximetry 93 97 Oxygen Delivery Nasal Cannula Nasal Cannula Oxygen Flow Rate 2 2 Fraction of Inspired Oxygen 07/30/23 12:00 07/30/23 12:46 07/30/23 12:26 Temperature Pulse Rate 91 90 Respiratory Rate 18 Blood Pressure Pulse Oximetry 93 Oxygen Delivery Nasal Cannula Oxygen Flow Rate 1 Fraction of Inspired Oxygen 07/30/23 12:40 07/30/23 12:00 07/30/23 14:00 Temperature 99.2 F Pulse Rate 84 94 98 Respiratory Rate 18 22 H Blood Pressure 122/57 L Pulse Oximetry 94 Oxygen Delivery Oxygen Flow Rate Fraction of Inspired Oxygen 07/30/23 16:00 07/30/23 16:00 07/30/23 16:25 Temperature Pulse Rate 63 89 Respiratory Rate 18 Blood Pressure Pulse Oximetry 96 Oxygen Delivery Nasal Cannula Oxygen Flow Rate 2 Fraction of Inspired Oxygen 07/30/23 18:00 07/30/23 16:00 07/30/23 20:43 Temperature 97.2 F L Pulse Rate 118 H 105 H 100 Respiratory Rate 26 H 18 Blood Pressure 134/64 Pulse Oximetry 97 Oxygen Delivery Oxygen Flow Rate Fraction of Inspired Oxygen 07/30/23 20:45 07/30/23 20:00 07/30/23 20:00 Temperature Pulse Rate 100 95 Respiratory Rate Blood Pressure Pulse Oximetry 98 95 Oxygen Delivery Nasal Cannula Nasal Cannula Oxygen Flow Rate 1 2 Fraction of Inspired Oxygen 24 07/30/23 20:00 07/30/23 23:20 09
--- NOTE | 2023-07-31 11:45 | PCSTNOTE ---
Please refer to the Bedside Swallow Evaluation in the EMR. Please note, silent aspiration cannot be ruled out at bedside.
[2023-07-31] MEDS: LACTULOSE 20 GM/30 ML UDC PO ×2 (12:53→17:29)
[2023-07-31] MEDS: PANTOPRAZOLE SODIUM IV 40 MG VIAL IV PUSH ×2 (12:53→20:23)
[2023-07-31] MEDS: MULTIVITAMINS /C LUTEIN (CENTRUM SILVER) TABLET *BKC 1 TAB PO (12:54)
[2023-07-31] MEDS: BISACODYL 5 MG TABLET EC 10 MG PO ×2 (12:54→17:29)
[2023-07-31] MEDS: ASPIRIN 81 MG ENTERIC TABLET PO (12:54)
[2023-07-31] MEDS: GABAPENTIN 100 MG CAPSULE PO ×2 (12:54→17:29)
[2023-07-31] MEDS: SUCRALFATE 1 GM TABLET PO ×2 (12:54→17:29)
[2023-07-31] MEDS: ARIPiprazole 2 MG TABLET 4 MG PO (12:54)
[2023-07-31] MEDS: buPROPion HCL XL (24 HR) 150 MG TABCR 300 MG PO (12:55)
[2023-07-31] MEDS: guaiFENesin 12 HR 600 MG TABCR 1200 MG PO ×2 (12:56→20:23)
[2023-07-31] MEDS: APIXABAN 5 MG TABLET PO ×2 (12:56→20:24)
[2023-07-31] MEDS: polyethylene glycoL 3350 17 GM POWD.PACK PO (12:56)
[2023-07-31] MEDS: methADONE HCL (*CRX) 5 MG TABLET PO ×2 (12:56→17:29)
[2023-07-31 13:10] LABS: Glucose Point of Care 118 mg/dl (65-105)
--- NOTE | 2023-07-31 14:29 | PC.NURSE ---
Returned from GI Lab. Report received from [MAGALIS Escamilla @ [id number]].
[2023-07-31 16:48] LABS: NIL 0.05 IU/mL; Quantiferon TB Plus, 1T NEGATIVE (NEGATIVE); TB2-NIL 0.01 IU/mL
[2023-07-31 17:25] LABS: Glucose Point of Care 110 mg/dl (65-105)
[2023-07-31] MEDS: ASCORBIC ACID 500 MG TABLET PO (17:29)
[2023-07-31 18:18] LABS: Glucose Point of Care 108 mg/dl (65-105)
[2023-07-31] MEDS: TAMSULOSIN HCL 0.4 MG CAPSULE PO (20:24)
[2023-07-31] MEDS: MIRTAZAPINE 15 MG TABLET PO (20:24)
[2023-07-31] MEDS: rOPINIRole HCL 1 MG TABLET PO (20:24)
[2023-08-01] VITALS (24 sets, daily range): BP systolic 93–121; BP diastolic 49–75; PULSE 86–106; RESP 17–30; TEMP 36.3–36.9; O2SAT 91–100
[2023-08-01] MEDS: IPRATROPIUM BR 0.02% INH SOLN 0.5 MG/2.5 ML VIAL INHALATION ×5 (04:15→23:36)
[2023-08-01] MEDS: LEVALBUTEROL NEB 1.25 MG/3 ML INHALATION ×5 (04:15→23:36)
[2023-08-01 04:51] LABS: Anion Gap 5 mmol/L (8-16); Blood Urea Nitrogen 15 mg/dL (9-20); Calcium 7.7 mg/dL (8.4-10.2); Carbon Dioxide 26 mmol/L (22-30); Chloride 105 mmol/L (98-107); Estimated CRCL calculation 57 ml/min; Estimated Glomerular Filt Rate > 60; Glucose 110 mg/dL (65-110); Potassium 3.3 mmol/L (3.4-5.0); Sodium 136 mmol/L (137-145)
[2023-08-01 04:56] LABS: Hematocrit 30.9 % (42.0-52.0); Hemoglobin 10.4 g/dL (14.0-18.0); Mean Corpuscular HGB Conc 33.7 g/dl (32-36); Mean Corpuscular Hemoglobin 29.9 pg (26-34); Mean Corpuscular Volume 88.8 fl (80-100); Mean Platelet Volume 10.3 fl (7.4-10.4); Platelet Count Result 165 k/mm3 (150-375); Red Blood Count 3.48 M/mm3 (4.6-6.20); Red Cell Distribution Width 14.7 % (11.5-14.5); White Blood Count 7.9 K/mm3 (4.5-10.0)
[2023-08-01] MEDS: SUCRALFATE 1 GM TABLET PO ×3 (06:05→17:26)
[2023-08-01] MEDS: METOCLOPRAMIDE HCL INJ 10 MG/2 ML VIAL 5 MG IV PUSH ×4 (06:05→23:55)
[2023-08-01] MEDS: metroNIDAZOLE 500 MG/ISO 100ML 500 MG/100 ML BAG 100 MG IVPB ×4 (06:05→23:55)
[2023-08-01] MEDS: LEVOTHYROXINE SODIUM 25 MCG TABLET PO (06:05)
[2023-08-01] MEDS: DORNASE ALFA INH SOLN 1 MG/ML 2.5 ML AMP 2.5 MG INHALATION ×2 (08:40→20:29)
[2023-08-01] MEDS: PANTOPRAZOLE SODIUM IV 40 MG VIAL IV PUSH ×2 (09:59→20:58)
[2023-08-01] MEDS: polyethylene glycoL 3350 17 GM POWD.PACK PO (09:59)
[2023-08-01] MEDS: BISACODYL 5 MG TABLET EC 10 MG PO ×2 (09:59→17:26)
[2023-08-01] MEDS: guaiFENesin 12 HR 600 MG TABCR 1200 MG PO ×2 (09:59→20:58)
[2023-08-01] MEDS: ARIPiprazole 2 MG TABLET 4 MG PO (09:59)
[2023-08-01] MEDS: GABAPENTIN 100 MG CAPSULE PO ×3 (09:59→17:25)
[2023-08-01] MEDS: buPROPion HCL XL (24 HR) 150 MG TABCR 300 MG PO (09:59)
[2023-08-01] MEDS: methADONE HCL (*CRX) 5 MG TABLET PO ×2 (09:59→17:25)
[2023-08-01] MEDS: ASPIRIN 81 MG ENTERIC TABLET PO (09:59)
[2023-08-01] MEDS: LACTULOSE 20 GM/30 ML UDC PO ×2 (09:59→12:54)
[2023-08-01] MEDS: ASCORBIC ACID 500 MG TABLET PO ×2 (09:59→17:26)
[2023-08-01] MEDS: MULTIVITAMINS /C LUTEIN (CENTRUM SILVER) TABLET *BKC 1 TAB PO (10:00)
[2023-08-01] MEDS: APIXABAN 5 MG TABLET PO ×2 (10:00→20:58)
--- NOTE | 2023-08-01 11:18 | PCSTNOTE ---
Please refer to the Modified Barium Swallow Evaluation in the EMR.
[2023-08-01 11:27] LABS: Glucose Point of Care 142 mg/dl (65-105)
--- NOTE | 2023-08-01 13:15 | PCNFU ---
Nutrition Follow-Up Complete: Increased protein energy needs related to wound healing as evidenced by stage 3 pressure injury to coccyx Goal: Adequate PO intake at least 75% meals and supplements to support wound healing Maintain weight Patient is not progressing towards goal. We will continue current goal. Pt current nutrition is NPO. Nutrition recommendation: advance to Minced and Moist, Level 5 per speech recommendations. Last recorded weight is 75 kg, no new weight to report. Bowel Motility:Last noted BM 07/29 smear Labs Reviewed:Cr 3.3,Na 136, Hct 30.9,Hgb 10.4 Meds Noted:Reglan, Lactulose, Miralax, Synthroid,Flagyl Skin:Stage 2-coccyx Additional Notes: Patient NPO at this time due to ileus. MBS evaluation today recommending Minced and Moist, Level 5 diet when advancing. Patient has refused a NGT. Monitoring intakes, weights, labs, supplement tolerance, wound healing, plan of care Follow up in 5 days
[2023-08-01] MEDS: DEXTROSE 5%/0.45% SOD CHL 1,000 ML 75 ML IV CONT (15:00)
--- NOTE | 2023-08-01 17:03 | PM.IMPN ---
Progress Note: A&P Assessment and Plan (1) Fecal impaction: Code(s): K56.41 - Fecal impaction Status: Acute (2) Right upper lobe consolidation: Code(s): J18.1 - Lobar pneumonia, unspecified organism Status: Acute (3) History of lung cancer: Code(s): Z85.118 - Personal history of other malignant neoplasm of bronchus and lung Status: Acute Plan [facility] [address] [place] [address] Hospitalist Progress Note Signed Patient: Farhan Armstrong MR#: [id number] : 1945 Acct:[id number] Age/Sex: 77 / M ADM Date: 07/24/23 Loc: [facility] [id number]: Cory Loving M.D. cc: ~ Progress Note: A&P Assessment and Plan (1) Fecal impaction: ?Code(s): K56.41 - Fecal impaction ?Status:?Acute (2) Right upper lobe consolidation: ?Code(s): J18.1 - Lobar pneumonia, unspecified organism ?Status:?Acute (3) History of lung cancer: ?Code(s): Z85.118 - Personal history of other malignant neoplasm of bronchus and lung ?Status:?Acute Plan 77M w/ PMH a fib, CHF, COPD, CAD, depression, diabetes mellitus with polyneuropathy, hypothyroidism, hx of non small cell carcinoma, ANIA, sacral decub ulcer, RLS. Active Problems: RUL pneumonia Covid pneumonia history of lung cancer DM sacral decub ulcer fecal impaction/ileus acute hypoxic respiratory failure hyponatremia he still has not had BM, but feels he is close. currently receiving soap suds enema. cont other laxative agents. once he passes bowel we could attempt oral feeding again. KUB demonstrated fecal impaction but no suggestion of ileus cont flagyl for post obstructive pna FEN: D51/2NS, NPO GI prophylaxis: protonix DVT prophylaxis: cont AC for a fib Lines: pIV Code Status: DNR More than 35 minutes spent on chart review, patient interaction and assessment and plan. Subjective Date/time seen: 08/01/23 17:03 Interval history: NAOE. pt is a bit more alert today and able to converse. he denies any complaints but looks a bit uncomfortable as he just got a soap suds enema and feels like the stool is stuck nurses at bedside monitoring patient for defecation. he has not has nausea or vomiting nor does he complain of abdominal pain. Review of Systems Cardiovascular: Cardiovascular: Denies chest pain and Denies dyspnea Respiratory: Respiratory: Denies cough and Denies dyspnea Gastrointestinal: Gastrointestinal: Denies abdominal pain, Reports constipation and Denies vomiting Exam Const: General: no acute distress, alert and Physically active Resp: Effort & Inspection: normal respiratory effort Auscultation: clear to auscultation bilaterally Cardio: Rate: regular rate Rhythm: regular rhythm Heart sounds: S1 normal heart sound present and S2 normal heart sound present GI: Inspection: distended GI Palp: No abdominal tenderness Auscultation: normal bowel sounds (hyperactive bowel sounds) Extrem: Right upper extremity: no edema Objective Data Vital Signs Vital Signs: Vital Signs - 24 hr 07/31/23 18:00 07/31/23 20:00 07/31/23 20:00 Temperature 97.9 F Pulse Rate 85 88 Respiratory Rate 18 Blood Pressure 105/62 Pulse Oximetry 94 94 Oxygen Delivery Room Air 07/31/23 20:00 07/31/23 22:20 07/31/23 22:47 Temperature Pulse Rate 93 89 98 Respiratory Rate 16 16 Blood Pressure Pulse Oximetry Oxygen Delivery 07/31/23 22:20 08/01/23 00:00 08/01/23 00:00 Temperature 97.6 F Pulse Rate 89 92 Respiratory Rate 18 Blood Pressure 93/49 L Pulse Oximetry 94 91 91 Oxygen Delivery Room Air Room Air 08/01/23 00:00 08/01/23 04:00 08/01/23 04:00 Temperature Pulse Rate 90 97 Respiratory Rate Blood Pressure Pulse Oximetry 91 Oxygen Delivery Room Air 08/01/23 04:00 08/01/23 04:15 08/01/23 04:30 Temperature 97.6 F Pulse Rate 94
--- NOTE | 2023-08-01 17:11 | PC.NURSE ---
On 08/01/23, the student, Robin [facility], provided care on this patient. I have reviewed the student's work and agree with the findings.
--- NOTE | 2023-08-01 17:47 | PCRCNOTE ---
Window of time for administration has passed. See next scheduled administration.
[2023-08-01 18:03] LABS: Glucose Point of Care 99 mg/dl (65-105)
[2023-08-01] MEDS: TAMSULOSIN HCL 0.4 MG CAPSULE PO (20:58)
[2023-08-01] MEDS: rOPINIRole HCL 1 MG TABLET PO (20:58)
[2023-08-01] MEDS: MIRTAZAPINE 15 MG TABLET PO (20:59)
[2023-08-02] VITALS (23 sets, daily range): BP systolic 108–160; BP diastolic 54–95; PULSE 81–124; RESP 18–33; TEMP 36.4–37.8; O2SAT 91–100
[2023-08-02] MEDS: LEVALBUTEROL NEB 1.25 MG/3 ML INHALATION ×2 (04:30→07:23)
[2023-08-02] MEDS: IPRATROPIUM BR 0.02% INH SOLN 0.5 MG/2.5 ML VIAL INHALATION ×3 (04:30→19:05)
[2023-08-02 04:58] LABS: Hematocrit 28.4 % (42.0-52.0); Hemoglobin 9.3 g/dL (14.0-18.0); Mean Corpuscular HGB Conc 32.7 g/dl (32-36); Mean Corpuscular Hemoglobin 29.3 pg (26-34); Mean Corpuscular Volume 89.6 fl (80-100); Mean Platelet Volume 10.3 fl (7.4-10.4); Platelet Count Result 154 k/mm3 (150-375); Red Blood Count 3.17 M/mm3 (4.6-6.20); Red Cell Distribution Width 14.5 % (11.5-14.5); White Blood Count 5.7 K/mm3 (4.5-10.0)
[2023-08-02] MEDS: LEVOTHYROXINE SODIUM 25 MCG TABLET PO (05:16)
[2023-08-02] MEDS: METOCLOPRAMIDE HCL INJ 10 MG/2 ML VIAL 5 MG IV PUSH ×2 (05:16→23:59)
[2023-08-02] MEDS: metroNIDAZOLE 500 MG/ISO 100ML 500 MG/100 ML BAG 100 MG IVPB ×3 (05:16→23:58)
[2023-08-02] MEDS: SUCRALFATE 1 GM TABLET PO (05:16)
[2023-08-02 05:18] LABS: Anion Gap 3 mmol/L (8-16); Blood Urea Nitrogen 11 mg/dL (9-20); Calcium 7.5 mg/dL (8.4-10.2); Carbon Dioxide 28 mmol/L (22-30); Chloride 106 mmol/L (98-107); Estimated CRCL calculation 63 ml/min; Estimated Glomerular Filt Rate > 60; Glucose 97 mg/dL (65-110); Potassium 3.1 mmol/L (3.4-5.0); Sodium 137 mmol/L (137-145)
[2023-08-02] MEDS: DEXTROSE 5%/0.45% SOD CHL 1,000 ML 75 ML IV CONT ×2 (05:37→23:58)
--- NOTE | 2023-08-02 06:58 | WPDGIPROGNO ---
Progress Note: A&P Assessment and Plan (1) Fecal impaction: Code(s): K56.41 - Fecal impaction Status: Acute Assessment and Plan: CT shows:IMPRESSION: 1. Large volume of stool in the colon with stercoral colitis. 2. 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 3. Small pericardial effusion. Unfortunately, that was 9 days ago, and he has not been having BM's or significant attempts to stimulate colon. KUB again shows large amount of stool in the colon with apparent fecal impaction. Will plan to perform removal of impaction under sedation this afternoon (2) History of lung cancer: Code(s): Z85.118 - Personal history of other malignant neoplasm of bronchus and lung Status: Acute (3) Chronic obstructive pulmonary disease: Code(s): J44.9 - Chronic obstructive pulmonary disease, unspecified Status: Acute (4) Nausea and vomiting in adult: Code(s): R11.2 - Nausea with vomiting, unspecified Status: Acute Assessment and Plan: he had coffee-ground emesis. NG tube was placed but as a stated above he took it out (5) Atrial fibrillation with controlled ventricular rate: Code(s): I48.91 - Unspecified atrial fibrillation Status: Chronic Assessment and Plan: He is on Eliquis 5 mg b.i.d. Plan will remove impaction today to the best of my ability. We will then continue to keep him on Dulcolax and probably need to continue enemas until it is all cleared. Subjective Date/time seen: 08/02/23 06:58 more alert today. He states he still uncomfortable and feels that there is a ball of stool that will not come out. I told that the x-rays confirm impaction. He declines manual disimpaction because he is so uncomfortable. Will arrange for removal of of action under sedation later today to be done in the GI lab Exam Const: General: no acute distress and awake Orientation/consciousness: oriented to person Resp: Auscultation: clear to auscultation bilaterally Cardio: Rhythm: regular rhythm GI: Inspection: distended GI Palp: Yes Soft to palpation, No Tenderness to palpation present (GI), Yes No hepatosplenomegaly present and Yes Palpable mass present ( Fullness in right lower quadrant, possibly stool) Neuro: General: patient oriented x3 Objective Data Vital Signs Vital Signs: Vital Signs - 24 hr 08/01/23 08:06 08/01/23 08:40 08/01/23 09:05 Temperature 36.3 C L Pulse Rate 92 99 98 Respiratory Rate 21 H 18 18 Blood Pressure 108/71 Pulse Oximetry 92 94 Oxygen Delivery Room Air Fraction of Inspired Oxygen 08/01/23 09:05 08/01/23 08:00 08/01/23 12:00 Temperature 36.9 C Pulse Rate 93 99 Respiratory Rate 18 17 Blood Pressure 107/60 Pulse Oximetry 94 96 Oxygen Delivery Room Air Fraction of Inspired Oxygen 08/01/23 12:53 08/01/23 12:57 08/01/23 13:09 Temperature Pulse Rate 106 H 106 H 99 Respiratory Rate 20 20 18 Blood Pressure Pulse Oximetry 93 Oxygen Delivery Room Air Fraction of Inspired Oxygen 08/01/23 12:00 08/01/23 08:00 08/01/23 10:00 Temperature Pulse Rate 86 103 H Respiratory Rate Blood Pressure Pulse Oximetry 93 Oxygen Delivery Room Air Fraction of Inspired Oxygen 08/01/23 12:00 08/01/23 14:00 08/01/23 16:11 Temperature 36.4 C L Pulse Rate 96 93 96 Respiratory Rate 30 H Blood Pressure 108/60 Pulse Oximetry 100 Oxygen Delivery Fraction of Inspired Oxygen 08/01/23 16:00 08/01/23 16:00 08/01/23 18:00 Temperature Pulse Rate 89 94 Respiratory Rate Blood Pressure Pulse Oximetry 100 Oxygen Delivery Room Air Fraction of Inspired Oxygen 08/01/23 20:30 08/01/23 20:48 08/01/23 20:31 Temperature 36.5 C Pulse Rate 103 H 105 H 88 Respiratory Rate 20 20 18 Blood Pressure 111/75 Pulse Oximetry 100 Oxygen Delivery Fraction of Inspired Oxygen 08/01/23 20:00 08/01/23 20:00 08/01/23 22:00 Tempera
[2023-08-02] MEDS: DORNASE ALFA INH SOLN 1 MG/ML 2.5 ML AMP 2.5 MG INHALATION (07:44)
--- NOTE | 2023-08-02 09:32 | PM.PNPUL ---
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 Diagnostic studies have shown a right upper lobe consolidation with some volume loss of the right upper lobe but without complete atelectasis of the right upper lobe. There is no clear-cut evidence of intrabronchial lesion causing atelectasis on chest CT. The patient has been treated with 3 antibiotics and aggressive pulmonary toilet. He had mild leukopenia, no left shift, and no symptoms such as cough sputum production fever that would suggest healthcare associated pneumonia. MRSA screening is negative. the patient has been on Flagyl for possible aspiration pneumonia. Respiratory status essentially unchanged over the last week. Patient has no evidence of cough chest congestion or sputum production. Video swallow study showed no evidence of aspiration. Last chest x-ray unchanged. Patient was taken off isolation for COVID. Plan: Continue with Flagyl for possible postobstructive anaerobic pneumonia. Will proceed with bronchoscopy early next week. Eliivyis held for that purpose. (2) History of lung cancer: Code(s): Z85.118 - Personal history of other malignant neoplasm of bronchus and lung Status: Acute (3) Right upper lobe pneumonia: Code(s): J18.9 - Pneumonia, unspecified organism Status: Acute (4) Obstructive sleep apnea: Code(s): G47.33 - Obstructive sleep apnea (adult) (pediatric) Status: Acute (5) Type 2 diabetes mellitus: Code(s): E11.9 - Type 2 diabetes mellitus without complications Status: Acute (6) Chronic obstructive pulmonary disease: Code(s): J44.9 - Chronic obstructive pulmonary disease, unspecified Status: Acute (7) COVID-19: Code(s): U07.1 - COVID-19 Status: Acute (8) CHF (congestive heart failure): Qualifiers: Heart failure chronicity: acute Heart failure type: unspecified Qualified Code(s): I50.9 - Heart failure, unspecified Code(s): I50.9 - Heart failure, unspecified Status: Acute (9) Atrial fibrillation: Qualifiers: Atrial fibrillation type: unspecified Qualified Code(s): I48.91 - Unspecified atrial fibrillation Code(s): I48.91 - Unspecified atrial fibrillation Status: Acute (10) Sacral decubitus ulcer: Code(s): L89.159 - Pressure ulcer of sacral region, unspecified stage Status: Acute (11) Non-small cell carcinoma of lung: Code(s): C34.90 - Malignant neoplasm of unspecified part of unspecified bronchus or lung Status: Acute Subjective Date/time seen: 08/02/23 09:33 Interval history: Patient has no new respiratory symptoms. Currently on room air. No longer has abdominal discomfort. Review of Systems Review of Systems: All systems reviewed & are unremarkable except as noted in HPI and below (HPI and below) Exam Narrative: GENERAL APPEARANCE: Well developed, well nourished, alert and cooperative, and appears to be in no acute distress while on room air SKIN: Inspection of the skin reveals no rashes, ulcerations or petechiae. HEENT: Sclerae anicteric and conjunctivae pink and moist. Extraocular movements were intact and pupils were equal, round, dry oral mucosa. NECK: Supple. There was no thyroid enlargement, and no tenderness, or masses were felt. CHEST: Normal AP diameter and normal contour without any kyphoscoliosis. LUNGS: Clear breath sounds anteriorly no wheezing. CARDIAC: There was a regular rate and rhythm without any murmurs, gallops, rubs. ABDOMEN: Soft and nontender with normal bowel sounds. There was no organomegaly. LYMPH
--- NOTE | 2023-08-02 09:54 | PM.IMPN ---
Progress Note: A&P Assessment and Plan (1) Fecal impaction: Code(s): K56.41 - Fecal impaction Status: Acute (2) Right upper lobe consolidation: Code(s): J18.1 - Lobar pneumonia, unspecified organism Status: Acute (3) History of lung cancer: Code(s): Z85.118 - Personal history of other malignant neoplasm of bronchus and lung Status: Acute Plan 77M w/ PMH a fib, CHF, COPD, CAD, depression, diabetes mellitus with polyneuropathy, hypothyroidism, hx of non small cell carcinoma, ANIA, sacral decub ulcer, RLS. Active Problems: RUL pneumonia Covid pneumonia history of lung cancer DM sacral decub ulcer fecal impaction/ileus acute hypoxic respiratory failure hyponatremia had BM yesterday after soap suds enema. he will go with GI for disimpaction under sedation today pulmonology plans for broncoscopy next week. eliquis being held FEN: D51/2NS, NPO GI prophylaxis: protonix DVT prophylaxis: SCD's. hold eliquis for bronchoscopy, heparin after GI procedure today, to stop saturday. Lines: pIV Code Status: DNR More than 25 minutes spent on chart review, patient interaction and assessment and plan. Subjective Date/time seen: 08/02/23 09:54 Interval history: NAOE. pt still feels like stool is stuck, otherwise no complaints Review of Systems Review of Systems: mild cough All systems reviewed & are unremarkable except as noted in HPI and below Cardiovascular: Cardiovascular: Denies chest pain and Denies dyspnea Respiratory: Respiratory: Denies cough and Denies dyspnea Gastrointestinal: Gastrointestinal: Denies abdominal pain, Reports constipation and Denies vomiting Exam Narrative: General: Moderately ill-appearing gentleman not in acute distress Respiratory: Coarse breath sound bilaterally no resp distress Cardiovascular: Regular rate and rhythm with S1-S2. Gastrointestinal: Abdomen is soft, nontender, and nondistended with positive bowel sounds. Skin: Warm and dry. No rash or lesions on limited exam. Extremities: No cyanosis, clubbing, or edema. Radial and pedal pulses intact. Neurological: Alert. Cranial nerves 2-12 are grossly intact. Appears to have left footdrop. Psychiatric: Pleasant and cooperative with appropriate mood and affect. Const: General: no acute distress, alert and Physically active Resp: Effort & Inspection: normal respiratory effort Auscultation: clear to auscultation bilaterally Cardio: Rate: regular rate Rhythm: regular rhythm Heart sounds: S1 normal heart sound present and S2 normal heart sound present GI: Inspection: distended Auscultation: normal bowel sounds (hyperactive bowel sounds) Extrem: Right upper extremity: no edema Objective Data Vital Signs Vital Signs: Vital Signs - 24 hr 08/01/23 12:00 08/01/23 12:53 08/01/23 12:57 Temperature 98.4 F Pulse Rate 99 106 H 106 H Respiratory Rate 17 20 20 Blood Pressure 107/60 Pulse Oximetry 96 93 Oxygen Delivery Room Air Fraction of Inspired Oxygen 08/01/23 13:09 08/01/23 12:00 08/01/23 10:00 Temperature Pulse Rate 99 103 H Respiratory Rate 18 Blood Pressure Pulse Oximetry 93 Oxygen Delivery Room Air Fraction of Inspired Oxygen 08/01/23 12:00 08/01/23 14:00 08/01/23 16:11 Temperature 97.5 F L Pulse Rate 96 93 96 Respiratory Rate 30 H Blood Pressure 108/60 Pulse Oximetry 100 Oxygen Delivery Fraction of Inspired Oxygen 08/01/23 16:00 08/01/23 16:00 08/01/23 18:00 Temperature Pulse Rate 89 94 Respiratory Rate Blood Pressure Pulse Oximetry 100 Oxygen Delivery Room Air Fraction of Inspired Oxygen 08/01/23 20:30 08/01/23 20:48 08/01/23 20:31 Temperature 97.7 F Pulse Rate 103 H 105 H 88 Respiratory Rate 20 20 18 Blood Pressure 111/75 Pulse Oximetry 100 Oxygen Delivery Fraction of Inspired Oxygen 08/01/23 20:00 08/01/23 20:00 08/01/23 22:00 Temperature Pulse Rate
[2023-08-02 11:48] LABS: Glucose Point of Care 126 mg/dl (65-105)
[2023-08-02] MEDS: LACTATED RINGERS 1,000 ML 150 ML IV CONT (14:24)
--- NOTE | 2023-08-02 14:25 | SUR.PREOP ---
Notified Dr. Evangelista (anesthesiologist) of pt vital signs and respiratory status. Pt on 1L of O2 for shortness of breath and chest congestion. States he will be here to evaluate pt.
--- NOTE | 2023-08-02 14:29 | WPDANESEPPF ---
Anes - Initial Pre Proc Eval Procedure: Operation Date: 08/02/23 16:00 Proposed Procedures p Fecal Impaction - Sean Ga MD Date/Time: 08/02/23 14:29 Surgeon: Cory Loving MD Pre Op Diagnosis: Pneumonia Patient Data Age: 77 Gender: M Height: 1.73 m Weight: 76.5 kg Last Vital Signs Temp 37.8 C H 08/02/23 14:15 Pulse 124 H 08/02/23 14:15 Resp 32 H 08/02/23 14:15 BP 160/95 H 08/02/23 14:15 Pulse Ox 95 08/02/23 14:15 O2 Del Method Nasal Cannula 08/02/23 14:15 O2 Flow Rate 1 08/02/23 14:15 FiO2 21 08/02/23 07:23 Allergies Allergy/AdvReac Type Severity Reaction Status Date / Time Penicillins Allergy Unknown SHORTNESS Verified 03/26/23 13:31 OF BREATH Home Medications Medication Instructions Recorded Confirmed Type aspirin 81 mg tablet,delayed 81 mg PO DAILY 11/06/19 07/23/23 History release ropinirole 1 mg tablet 1 mg PO HS 12/18/19 07/23/23 History bupropion HCl 300 mg 24 hr tablet, 300 mg PO DAILY 03/09/21 07/23/23 History extended release aripiprazole 2 mg tablet (Abilify) 4 mg PO DAILY #180 tabs 02/15/22 07/23/23 Rx tamsulosin 0.4 mg capsule 0.4 mg PO HS 02/26/22 07/23/23 History gabapentin 100 mg capsule 100 mg PO TID #90 caps 06/12/22 07/23/23 Rx albuterol sulfate 90 mcg/actuation 1 puff inhalation Q4H PRN 07/27/22 07/23/23 History aerosol inhaler Shortness Of Breath ondansetron 8 mg disintegrating 8 mg PO Q8H PRN Nausea 08/10/22 07/23/23 History tablet Pro-Stat Sugar Free 30 ml PO DAILY 03/23/23 07/23/23 History acetaminophen 325 mg tablet 650 mg PO Q6H PRN Pain, Mild 03/23/23 07/23/23 History ascorbic acid (vitamin C) 500 mg 500 mg PO BID 03/23/23 07/23/23 History tablet bisacodyl 5 mg tablet,delayed 10 mg PO BID 03/23/23 07/23/23 History release (Dulcolax (bisacodyl)) lactulose 10 gram/15 mL oral 20 g PO TID 03/23/23 07/23/23 History solution methadone 5 mg tablet 5 mg PO BID 03/23/23 07/23/23 History mirtazapine 15 mg tablet (Remeron) 15 mg PO HS 03/23/23 07/23/23 History multivit with minerals-iron 18 1 tablet PO DAILY 03/23/23 07/23/23 History mg-folic ac 400 mcg-vit K 25 mcg tablet (Adults Multivitamin) oxycodone-acetaminophen 7.5 mg-325 1 tablet PO Q6H PRN Pain 03/23/23 07/23/23 History mg tablet apixaban 5 mg tablet (Eliquis) 5 mg PO Q12HR #60 tabs 04/01/23 07/23/23 Rx bisacodyl 10 mg rectal suppository 10 mg RECTAL DAILY PRN 04/01/23 07/23/23 Rx Constipation #12 ea ipratropium bromide 0.02 % 0.5 mg (2.5 mL) inhalation Q6HRT 04/01/23 07/23/23 Rx solution for inhalation #75 mL levalbuterol HCl 1.25 mg/3 mL 1.25 mg inhalation Q6H PRN SOB 07/23/23 07/23/23 History solution for nebulization levothyroxine 25 mcg tablet 25 mcg PO DAILY 07/23/23 07/23/23 History polyethylene glycol 3350 17 gram 17 g PO DAILY PRN Constipation 07/23/23 07/23/23 History oral powder packet (Miralax) polyethylene glycol 3350 17 17 g PO DAILY 07/23/23 07/23/23 History gram/dose oral powder (Miralax) silver sulfadiazine 1 % topical 1 applic topical DAILY buttocks, 07/23/23 07/23/23 History cream (SSD) sacrum, and coccyx sucralfate 1 gram tablet (Carafate) 1 g PO TID 07/23/23 07/23/23 History trimethobenzamide 100 mg/mL 100 mg IM ONCE PRN Nausea And 07/23/23 07/23/23 History intramuscular solution (Tigan) Vomiting Laboratory Tests 08/01/23 08/02/23 08/02/23 17:29 04:50 11:18 WBC 5.7 K/mm3 (4.5-10.0) RBC 3.17 L M/mm3 (4.6-6.20) Hgb 9.3 L g/dL (14.0-18.0) Hct 28.4 L % (42.0-52.0) MCV 89.6 fl (80-100) MCH 29.3 pg (26-34) MCHC 32.7 g/dl (32-36) RDW 14.5 % (11.5-14.5) Plt Count 154 k/mm3 (150-375) MPV 10.3 fl (7.4-10.4) Sodium 137 mmol/L (137-145) Potassium 3.1 L mmol/L (3.4-5.0) Chloride 106 mmol/L (98-107) Carbon Dioxide 28 mmol/L (22-30) Anion Gap
[2023-08-02] MEDS: PANTOPRAZOLE SODIUM IV 40 MG VIAL IV PUSH ×2 (17:38→22:02)
[2023-08-02] MEDS: methADONE HCL (*CRX) 5 MG TABLET PO (17:39)
[2023-08-02] MEDS: APIXABAN 5 MG TABLET PO (17:43)
[2023-08-02 19:04] LABS: Glucose Point of Care 85 mg/dl (65-105)
[2023-08-02] MEDS: ALBUTEROL SULFATE NEB 2.5 MG/3 ML INH INHALATION (19:05)
[2023-08-02 19:58] LABS: NT Pro B Type Natriuretic Pept 1920 pg/mL (19.9-100)
[2023-08-02] MEDS: MIRTAZAPINE 15 MG TABLET PO (22:01)
[2023-08-02] MEDS: guaiFENesin 12 HR 600 MG TABCR 1200 MG PO (22:01)
[2023-08-02] MEDS: TAMSULOSIN HCL 0.4 MG CAPSULE PO (22:02)
[2023-08-02] MEDS: rOPINIRole HCL 1 MG TABLET PO (22:02)
[2023-08-03] VITALS (19 sets, daily range): BP systolic 95–133; BP diastolic 58–92; PULSE 86–109; RESP 18–20; TEMP 36.3–37.1; O2SAT 91–100
[2023-08-03 00:23] LABS: Glucose Point of Care 102 mg/dl (65-105)
[2023-08-03] MEDS: oxyCODONE/ACETAMINOPHEN (*CRX) 5-325 MG TABLET 1 TABLET PO ×2 (01:20→13:45)
[2023-08-03] MEDS: oxyCODONE HCL (*CRX) 2.5 MG TAB IR PO ×2 (01:21→13:52)
[2023-08-03 05:42] LABS: Hematocrit 29.7 % (42.0-52.0); Hemoglobin 9.7 g/dL (14.0-18.0); Mean Corpuscular HGB Conc 32.7 g/dl (32-36); Mean Corpuscular Hemoglobin 28.8 pg (26-34); Mean Corpuscular Volume 88.1 fl (80-100); Mean Platelet Volume 10.1 fl (7.4-10.4); Platelet Count Result 188 k/mm3 (150-375); Red Blood Count 3.37 M/mm3 (4.6-6.20); Red Cell Distribution Width 14.6 % (11.5-14.5); White Blood Count 8.3 K/mm3 (4.5-10.0)
[2023-08-03] MEDS: METOCLOPRAMIDE HCL INJ 10 MG/2 ML VIAL 5 MG IV PUSH ×4 (05:46→23:28)
[2023-08-03] MEDS: metroNIDAZOLE 500 MG/ISO 100ML 500 MG/100 ML BAG 100 MG IVPB ×4 (05:47→23:51)
[2023-08-03 05:53] LABS: Anion Gap 2 mmol/L (8-16); Blood Urea Nitrogen 8 mg/dL (9-20); Calcium 7.6 mg/dL (8.4-10.2); Carbon Dioxide 29 mmol/L (22-30); Chloride 106 mmol/L (98-107); Estimated CRCL calculation 71 ml/min; Estimated Glomerular Filt Rate > 60; Glucose 97 mg/dL (65-110); Potassium 3.1 mmol/L (3.4-5.0); Sodium 137 mmol/L (137-145)
[2023-08-03] MEDS: ASPIRIN 81 MG ENTERIC TABLET PO (08:50)
[2023-08-03] MEDS: BISACODYL 5 MG TABLET EC 10 MG PO ×2 (08:50→17:23)
[2023-08-03] MEDS: GABAPENTIN 100 MG CAPSULE PO ×3 (08:50→17:23)
[2023-08-03] MEDS: ASCORBIC ACID 500 MG TABLET PO ×2 (08:51→17:23)
[2023-08-03] MEDS: MULTIVITAMINS /C LUTEIN (CENTRUM SILVER) TABLET *BKC 1 TAB PO (08:51)
[2023-08-03] MEDS: guaiFENesin 12 HR 600 MG TABCR 1200 MG PO ×2 (08:51→20:17)
[2023-08-03] MEDS: APIXABAN 5 MG TABLET PO (08:51)
[2023-08-03] MEDS: ARIPiprazole 2 MG TABLET 4 MG PO (08:51)
[2023-08-03] MEDS: buPROPion HCL XL (24 HR) 150 MG TABCR 300 MG PO (08:51)
[2023-08-03] MEDS: methADONE HCL (*CRX) 5 MG TABLET PO ×2 (08:52→17:22)
--- NOTE | 2023-08-03 08:52 | WPDGIPROGNO ---
Progress Note: A&P Assessment and Plan (1) Fecal impaction: Code(s): K56.41 - Fecal impaction Status: Acute Assessment and Plan: CT shows:IMPRESSION: 1. Large volume of stool in the colon with stercoral colitis. 2. 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 3. Small pericardial effusion. Unfortunately, that was 9 days ago, and he has not been having BM's or significant attempts to stimulate colon. KUB again shows large amount of stool in the colon with apparent fecal impaction. Will plan to perform removal of impaction under sedation this afternoon 08/03/2023 I removed a significant amount of stool from his rectum yesterday. I am sure that there is additional soft stool higher up. Because his constipation is opioid induced. I will try him on Relistor. Will give 1 dose today. (2) History of lung cancer: Code(s): Z85.118 - Personal history of other malignant neoplasm of bronchus and lung Status: Acute Assessment and Plan: He is followed by Pulmonary and Oncology. There was concern he may have intrabronchial obstructive process. 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 There is no clear-cut evidence of intrabronchial lesion causing atelectasis on chest CT.? The patient has been treated with 3 antibiotics and aggressive pulmonary toilet.? pulmonary plans to perform bronchoscopy on Saturday. (3) Chronic obstructive pulmonary disease: Code(s): J44.9 - Chronic obstructive pulmonary disease, unspecified Status: Acute Assessment and Plan: He has not complained of shortness of breath. (4) Nausea and vomiting in adult: Code(s): R11.2 - Nausea with vomiting, unspecified Status: Acute Assessment and Plan: Nausea and vomiting has resolved. He is eating and has a good appetite. (5) Atrial fibrillation with controlled ventricular rate: Code(s): I48.91 - Unspecified atrial fibrillation Status: Chronic Assessment and Plan: He is on Eliquis 5 mg b.i.d. Plan will remove impaction today to the best of my ability. We will then continue to keep him on Dulcolax and probably need to continue enemas until it is all cleared. Will try Relistor today. It could be continued Once daily. afterwards. Subjective Date/time seen: 08/03/23 08:52 He has had no bowel movement since I removed his impaction yesterday under anesthesia although he no longer feels that he is bound up. I explained him that there was soft palpable stool above but I could reach. His appetite is good. His breakfast is at his bedside but he states that he is waiting for somebody to come feetdme Exam Const: General: no acute distress and awake Orientation/consciousness: oriented to person Resp: Auscultation: clear to auscultation bilaterally Cardio: Rhythm: regular rhythm GI: Inspection: normal to inspection GI Palp: Yes Soft to palpation, No Tenderness to palpation present (GI) and Yes No hepatosplenomegaly present Auscultation: normal bowel sounds Neuro: General: patient oriented x3 Objective Data Vital Signs Vital Signs: Vital Signs - 24 hr 08/02/23 11:52 08/02/23 14:15 08/02/23 16:31 Temperature 37.3 C 37.8 C H Pulse Rate 108 H 124 H 117 H Respiratory Rate 18 32 H 32 H Blood Pressure 138/70 160/95 H 130/74 Pulse Oximetry 92 95 100 Oxygen Delivery Nasal Cannula Simple Face Mask Oxygen Flow Rate 1 4 Fraction of Inspired Oxygen 08/02/23 16:41 08/02/23 16:51 08/02/23 19:07 Temperature Pulse Rate 118 H 120 H 101 H Respiratory Rate 32 H 33 H 18 Blood Pressure 138/84 155/94 H Pulse Oximetry 100 97 Oxygen Delivery Nasal Cannula Nasal Cannula Oxygen Flow Rate 2 1 Fra
[2023-08-03] MEDS: PANTOPRAZOLE SODIUM IV 40 MG VIAL IV PUSH ×2 (08:57→20:17)
[2023-08-03] MEDS: LACTULOSE 20 GM/30 ML UDC PO ×3 (08:57→17:00)
[2023-08-03] MEDS: polyethylene glycoL 3350 17 GM POWD.PACK PO (09:00)
[2023-08-03] MEDS: BISACODYL 10 MG SUPPOSITORY RECTAL (09:05)
[2023-08-03] MEDS: METHYLNALTREXONE 12 MG/0.6 ML VIAL SUB-Q (11:29)
[2023-08-03] MEDS: SUCRALFATE 1 GM TABLET PO (11:35)
--- NOTE | 2023-08-03 12:36 | PM.IMPN ---
Progress Note: A&P Assessment and Plan (1) Fecal impaction: Code(s): K56.41 - Fecal impaction Status: Acute (2) Right upper lobe consolidation: Code(s): J18.1 - Lobar pneumonia, unspecified organism Status: Acute (3) History of lung cancer: Code(s): Z85.118 - Personal history of other malignant neoplasm of bronchus and lung Status: Acute (4) Type 2 diabetes mellitus: Code(s): E11.9 - Type 2 diabetes mellitus without complications Status: Acute (5) Chronic obstructive pulmonary disease: Code(s): J44.9 - Chronic obstructive pulmonary disease, unspecified Status: Acute (6) Acute decompensated heart failure: Code(s): I50.9 - Heart failure, unspecified Status: Acute Plan 77M w/ PMH a fib, HFpEF, COPD, CAD, depression, diabetes mellitus with polyneuropathy, hypothyroidism, hx of non small cell carcinoma, ANIA, sacral decub ulcer, RLS. Hospital Course: He resides at [facility] [place], [place]. He was found to have abnormal chest x ray. Performed because of fatigue, sore throat, cough. He was treated for a presume RUL pneumonia due to post obstruction with triple abx. Now, he remains on only Flagyl as he has improved. He also had covid Pneumonia but has since been taken off precautions. He had aggressive pulmonary toilet, pulmonology following. He also had Coffee ground emesis and GI was consulted. Procedures were not performed as he still had active COVID. He was found to have fecal impaction and ileus and was taken for disimpaction on 08/02 with GI and they removed stool. He will finally have bronchoscopy on Saturday as well. Oncology was consulted and they report no evidence of relapse of his lung cancer. 08/02 - developed SOB, treating acute HF likely iatrogenic. Active Problems: RUL pneumonia Covid pneumonia history of lung cancer DM sacral decub ulcer fecal impaction/ileus/constipation acute hypoxic respiratory failure acutely decompensated heart failure hyponatremia 1) fecal impaction - 08/02 went to OR for disimpaction under sedation since he decline manual bedside discimpaction - cont bowel regimen, GI started Relistor on 08/03 - he is able tolerate oral intake 2) RUL pneumonia - concern for post obstructive process. only on flagyl now, received triple abx course - schedule for bronchoscopy on saturday - oncology consulted, they have noted there is no evidence of recurrent non small cell carcinoma. 3) COVID pneumonia - no longer on COVID precautions 4) acutely decompensated HFpEF - likely iatrogenic. complained of SOB on 08/02, BNP elevated with evidence of pulm congestion on CXR - start lasix 20mg IV BID and dc fluids on 08/03, gentle with diuresis as he is brittle 5) acute hypoxic respiratory failure - multimodal etiology 6) hypokalemia - scheduled regimen considered we are diuresing him now with lasix 7) a fib - holding eliquis 12/20 to bronchoscopy on saturday. heparin ordered to stop saturday FEN: saline lock IV. follow recs from [facility] GI prophylaxis: protonix DVT prophylaxis: heparin and SCD's. heparin to be stopped saturday Lines: pIV Code Status: DNR More than 35 minutes spent on chart review, patient interaction and assessment and plan. Subjective Date/time seen: 08/03/23 12:36 Interval history: NAOE. pt has had another BM this morning. Review of Systems Respiratory: Respiratory: Denies cough, Denies dyspnea and Denies wheezing Gastrointestinal: Gastrointestinal: Reports constipation, Denies nausea and Denies vomiting Genitourinary: Genitourinary: Denies dysuria and Denies flank pain Exam Const: General: comfortable Eyes: Pupils: Equal, round and reactive pupils present Resp: Effort & Inspection: normal respiratory effort Auscultation: crackles and rales Cardio: Rate: regular rate Rhythm: regular rhythm Heart sounds: no murmurs Skin: General skin exam: no erythema Extrem: General: no edema Objective
[2023-08-03 12:45] LABS: Glucose Point of Care 160 mg/dl (65-105)
[2023-08-03] MEDS: FUROSEMIDE INJ 40 MG/4 ML VIAL 20 MG IV PUSH ×2 (13:41→17:24)
[2023-08-03] MEDS: HEPARIN SODIUM 5,000 UNITS/ML VIAL 5000 UNITS SUB-Q ×2 (13:41→23:28)
[2023-08-03] MEDS: POTASSIUM CHLORIDE 20 MEQ PACKET (FOR LIQUID) PO ×2 (13:41→17:23)
[2023-08-03 17:53] LABS: Glucose Point of Care 114 mg/dl (65-105)
[2023-08-03] MEDS: MIRTAZAPINE 15 MG TABLET PO (20:17)
[2023-08-03] MEDS: TAMSULOSIN HCL 0.4 MG CAPSULE PO (20:18)
[2023-08-03] MEDS: rOPINIRole HCL 1 MG TABLET PO (20:18)
[2023-08-03 23:36] LABS: Glucose Point of Care 90 mg/dl (65-105)
[2023-08-04] VITALS (9 sets, daily range): BP systolic 97–117; BP diastolic 59–73; PULSE 78–94; RESP 14–24; TEMP 35.9–37.2; O2SAT 93–99
[2023-08-04 04:44] LABS: Hematocrit 27.9 % (42.0-52.0); Hemoglobin 9.4 g/dL (14.0-18.0); Mean Corpuscular HGB Conc 33.7 g/dl (32-36); Mean Corpuscular Volume 86.1 fl (80-100); Mean Platelet Volume 9.6 fl (7.4-10.4); Platelet Count Result 191 k/mm3 (150-375); Red Blood Count 3.24 M/mm3 (4.6-6.20); Red Cell Distribution Width 14.4 % (11.5-14.5); White Blood Count 6.9 K/mm3 (4.5-10.0)
[2023-08-04 04:55] LABS: Anion Gap 5 mmol/L (8-16); Blood Urea Nitrogen 8 mg/dL (9-20); Calcium 7.3 mg/dL (8.4-10.2); Carbon Dioxide 29 mmol/L (22-30); Chloride 103 mmol/L (98-107); Estimated CRCL calculation 71 ml/min; Estimated Glomerular Filt Rate > 60; Glucose 69 mg/dL (65-110); Magnesium 1.7 mg/dL (1.6-2.3); Potassium 3.4 mmol/L (3.4-5.0); Sodium 137 mmol/L (137-145)
[2023-08-04] MEDS: HEPARIN SODIUM 5,000 UNITS/ML VIAL 5000 UNITS SUB-Q ×2 (06:03→14:13)
[2023-08-04] MEDS: METOCLOPRAMIDE HCL INJ 10 MG/2 ML VIAL 5 MG IV PUSH ×4 (06:03→23:38)
[2023-08-04] MEDS: metroNIDAZOLE 500 MG/ISO 100ML 500 MG/100 ML BAG 100 MG IVPB ×4 (06:04→23:37)
[2023-08-04] MEDS: LEVOTHYROXINE SODIUM 25 MCG TABLET PO (06:14)
[2023-08-04] MEDS: SUCRALFATE 1 GM TABLET PO ×3 (06:16→17:49)
[2023-08-04 06:33] LABS: Glucose Point of Care 80 mg/dl (65-105)
[2023-08-04 07:03] LABS: Glucose Point of Care 88 mg/dl (65-105)
--- NOTE | 2023-08-04 08:52 | PM.IMPN ---
Progress Note: A&P Assessment and Plan (1) Fecal impaction: Code(s): K56.41 - Fecal impaction Status: Acute Assessment and Plan: Disimpacted under sedation by GI Continue bowel regimen (2) Right upper lobe consolidation: Code(s): J18.1 - Lobar pneumonia, unspecified organism Status: Acute Assessment and Plan: Likely residual from prior lung CA Recent COVID+, now off precautions (3) History of lung cancer: Code(s): Z85.118 - Personal history of other malignant neoplasm of bronchus and lung Status: Acute Assessment and Plan: Bronch planned for 08/05 (4) Type 2 diabetes mellitus: Code(s): E11.9 - Type 2 diabetes mellitus without complications Status: Acute Assessment and Plan: Control adequate 08/04 (5) Chronic obstructive pulmonary disease: Code(s): J44.9 - Chronic obstructive pulmonary disease, unspecified Status: Acute Assessment and Plan: Clinically stable on 2 L NC (6) Acute decompensated heart failure: Code(s): I50.9 - Heart failure, unspecified Status: Acute Assessment and Plan: Likely iatrogenic Clinically improved Subjective Date/time seen: 08/04/23 08:52 Interval history: Denied pain. Bowels moved. Denied bleeding. Review of Systems Review of Systems: All systems reviewed & are unremarkable except as noted in HPI and below Exam Narrative: HEENT: PERRL, sclerae nonicteric, pharyngeal mucosa pink and intact NECK: No JVD CHEST: Inspiratory wheeze. Normal effort. HEART: NL S1/S2, irregular, 3/6 RYLEE RUSB ABDOMEN: BS+, soft, nontender, no mass, no bruits EXTREMITIES: No cyanosis, edema, or clubbing NEUROLOGIC: CN intact and symmetric to inspection. MUSCULOSKELETAL: Tone and strength symmetric. PSYCH: Alert. Oriented to person, place, and time. Objective Data Vital Signs Vital Signs: Vital Signs - 24 hr 08/03/23 10:00 08/03/23 11:38 08/03/23 12:00 Temperature 98.8 F Pulse Rate 99 100 Respiratory Rate 18 Blood Pressure 133/69 Pulse Oximetry 96 98 Oxygen Delivery Nasal Cannula Oxygen Flow Rate 1 08/03/23 12:00 08/03/23 14:00 08/03/23 16:13 Temperature 97.8 F Pulse Rate 109 H 107 H 102 H Respiratory Rate 18 Blood Pressure 130/92 H Pulse Oximetry 100 Oxygen Delivery Oxygen Flow Rate 08/03/23 16:00 08/03/23 16:00 08/03/23 18:00 Temperature Pulse Rate 107 H 105 H Respiratory Rate Blood Pressure Pulse Oximetry 98 Oxygen Delivery Nasal Cannula Oxygen Flow Rate 1 08/03/23 20:00 08/03/23 20:00 08/03/23 20:00 Temperature 97.5 F L Pulse Rate 100 99 Respiratory Rate 20 Blood Pressure 113/69 Pulse Oximetry 99 91 Oxygen Delivery Nasal Cannula Oxygen Flow Rate 2 08/03/23 23:17 08/03/23 22:00 08/04/23 00:00 Temperature 97.3 F L Pulse Rate 90 96 88 Respiratory Rate 18 Blood Pressure 95/64 L Pulse Oximetry 100 Oxygen Delivery Oxygen Flow Rate 08/04/23 00:00 08/04/23 02:00 08/04/23 03:17 Temperature 97.4 F L Pulse Rate 83 83 Respiratory Rate 20 Blood Pressure 101/59 L Pulse Oximetry 93 99 Oxygen Delivery Nasal Cannula Oxygen Flow Rate 2 08/04/23 04:00 08/04/23 04:00 08/04/23 06:00 Temperature Pulse Rate 80 78 Respiratory Rate Blood Pressure Pulse Oximetry 99 Oxygen Delivery Nasal Cannula Oxygen Flow Rate 2 08/04/23 07:59 Temperature 98.9 F Pulse Rate 94 Respiratory Rate 24 H Blood Pressure 117/59 L Pulse Oximetry 97 Oxygen Delivery Oxygen Flow Rate Intake/Output Intake/Output: Intake & Output 08/01/23 08/02/23 08/03/23 08/04/23 23:59 23:59 23:59 23:59 Intake Total 1400 2400 1180 320 Output Total 600 1050 3375 600 Balance 800 1350 -2195 -280 Meds/Results Medications: Active Medications Generic Name Dose Route Start Last Admin Trade Name Freq PRN Reason Stop Dose Admin Acetaminophen 650 mg 07/25/23 08:58 09
[2023-08-04] MEDS: PANTOPRAZOLE SODIUM IV 40 MG VIAL IV PUSH ×2 (09:10→20:25)
[2023-08-04] MEDS: POTASSIUM CHLORIDE 20 MEQ PACKET (FOR LIQUID) PO ×2 (09:10→17:50)
[2023-08-04] MEDS: polyethylene glycoL 3350 17 GM POWD.PACK PO (09:10)
[2023-08-04] MEDS: guaiFENesin 12 HR 600 MG TABCR 1200 MG PO ×2 (09:10→20:24)
[2023-08-04] MEDS: methADONE HCL (*CRX) 5 MG TABLET PO ×2 (09:11→17:49)
[2023-08-04] MEDS: buPROPion HCL XL (24 HR) 150 MG TABCR 300 MG PO (09:11)
[2023-08-04] MEDS: ASPIRIN 81 MG ENTERIC TABLET PO (09:11)
[2023-08-04] MEDS: ASCORBIC ACID 500 MG TABLET PO ×2 (09:11→17:49)
[2023-08-04] MEDS: ARIPiprazole 2 MG TABLET 4 MG PO (09:11)
[2023-08-04] MEDS: BISACODYL 5 MG TABLET EC 10 MG PO ×2 (09:11→17:50)
[2023-08-04] MEDS: GABAPENTIN 100 MG CAPSULE PO ×3 (09:11→17:50)
[2023-08-04] MEDS: MULTIVITAMINS /C LUTEIN (CENTRUM SILVER) TABLET *BKC 1 TAB PO (09:12)
[2023-08-04] MEDS: FUROSEMIDE INJ 40 MG/4 ML VIAL 20 MG IV PUSH ×2 (09:13→17:50)
[2023-08-04] MEDS: LACTULOSE 20 GM/30 ML UDC PO ×2 (09:21→17:50)
--- NOTE | 2023-08-04 11:40 | PC.NURSE ---
This patient, Farhan Armstrong, was transferred to [[id number] ] on 08/04/23 at 1100. Personal belongings sent with patient. Report given to [ Jacque BLANCAS]. Appropriate documentation sent with patient.
[2023-08-04 12:45] LABS: Glucose Point of Care 119 mg/dl (65-105)
--- NOTE | 2023-08-04 13:01 | PC.NURSE ---
This patient, Farhan Armstrong, was received from IMU on 08/04/23 at 1101. Patient/family oriented to unit policies and routines
[2023-08-04] MEDS: oxyCODONE HCL (*CRX) 2.5 MG TAB IR PO ×2 (14:49→23:58)
[2023-08-04] MEDS: oxyCODONE/ACETAMINOPHEN (*CRX) 5-325 MG TABLET 1 TABLET PO ×2 (14:50→20:24)
[2023-08-04 19:25] LABS: Glucose Point of Care 81 mg/dl (65-105)
[2023-08-04] MEDS: rOPINIRole HCL 1 MG TABLET PO (20:24)
[2023-08-04] MEDS: MIRTAZAPINE 15 MG TABLET PO (20:24)
[2023-08-04] MEDS: TAMSULOSIN HCL 0.4 MG CAPSULE PO (20:24)
[2023-08-04 23:44] LABS: Glucose Point of Care 91 mg/dl (65-105)
[2023-08-05] MEDS: METOCLOPRAMIDE HCL INJ 10 MG/2 ML VIAL 5 MG IV PUSH ×3 (05:20→17:26)
[2023-08-05] MEDS: oxyCODONE/ACETAMINOPHEN (*CRX) 5-325 MG TABLET 1 TABLET PO (05:21)
[2023-08-05] MEDS: SUCRALFATE 1 GM TABLET PO ×2 (05:21→10:26)
[2023-08-05] MEDS: metroNIDAZOLE 500 MG/ISO 100ML 500 MG/100 ML BAG 100 MG IVPB ×3 (05:21→17:28)
[2023-08-05] MEDS: LEVOTHYROXINE SODIUM 25 MCG TABLET PO (05:21)
[2023-08-05 06:02] LABS: Glucose Point of Care 71 mg/dl (65-105)
[2023-08-05 06:14] VITALS: BP 94/64; PULSE 88; RESP 20; TEMP 35.9; O2SAT 95
[2023-08-05 06:42] LABS: Hematocrit 30.4 % (42.0-52.0); Hemoglobin 9.9 g/dL (14.0-18.0); Mean Corpuscular HGB Conc 32.6 g/dl (32-36); Mean Corpuscular Hemoglobin 28.9 pg (26-34); Mean Corpuscular Volume 88.9 fl (80-100); Mean Platelet Volume 9.8 fl (7.4-10.4); Platelet Count Result 206 k/mm3 (150-375); Red Blood Count 3.42 M/mm3 (4.6-6.20); White Blood Count 8.2 K/mm3 (4.5-10.0)
[2023-08-05 06:50] LABS: Anion Gap 5 mmol/L (8-16); Blood Urea Nitrogen 10 mg/dL (9-20); Calcium 7.9 mg/dL (8.4-10.2); Carbon Dioxide 31 mmol/L (22-30); Chloride 102 mmol/L (98-107); Estimated CRCL calculation 57 ml/min; Estimated Glomerular Filt Rate > 60; Glucose 69 mg/dL (65-110); Potassium 3.5 mmol/L (3.4-5.0); Sodium 138 mmol/L (137-145)
[2023-08-05 08:00] VITALS: O2SAT 95
[2023-08-05] MEDS: LACTATED RINGERS 1,000 ML 150 ML IV CONT (09:14)
--- NOTE | 2023-08-05 09:19 | WPDANESEPPF ---
Anes - Initial Pre Proc Eval Procedure: Operation Date: 08/02/23 16:00 Proposed Procedures p Fecal Impaction - Sean Ga MD Operation Date: 08/05/23 09:30 Proposed Procedures p Flexible Bronchoscopy - Alex Ibarra MD Date/Time: 08/05/23 09:19 Surgeon: Cory Loving MD Pre Op Diagnosis: Pneumonia Patient Data Age: 77 Gender: M Height: 1.73 m Weight: 72.7 kg Last Vital Signs Temp 96.7 F L 08/05/23 06:14 Pulse 88 08/05/23 06:14 Resp 20 08/05/23 06:14 BP 94/64 L 08/05/23 06:14 Pulse Ox 95 08/05/23 06:14 O2 Del Method Nasal Cannula 08/04/23 08:00 O2 Flow Rate 2 08/04/23 08:00 FiO2 24 08/03/23 08:33 Allergies Allergy/AdvReac Type Severity Reaction Status Date / Time Penicillins Allergy Unknown SHORTNESS Verified 03/26/23 13:31 OF BREATH Home Medications Medication Instructions Recorded Confirmed Type aspirin 81 mg tablet,delayed 81 mg PO DAILY 11/06/19 07/23/23 History release ropinirole 1 mg tablet 1 mg PO HS 12/18/19 07/23/23 History bupropion HCl 300 mg 24 hr tablet, 300 mg PO DAILY 03/09/21 07/23/23 History extended release aripiprazole 2 mg tablet (Abilify) 4 mg PO DAILY #180 tabs 02/15/22 07/23/23 Rx tamsulosin 0.4 mg capsule 0.4 mg PO HS 02/26/22 07/23/23 History gabapentin 100 mg capsule 100 mg PO TID #90 caps 06/12/22 07/23/23 Rx albuterol sulfate 90 mcg/actuation 1 puff inhalation Q4H PRN 07/27/22 07/23/23 History aerosol inhaler Shortness Of Breath ondansetron 8 mg disintegrating 8 mg PO Q8H PRN Nausea 08/10/22 07/23/23 History tablet Pro-Stat Sugar Free 30 ml PO DAILY 03/23/23 07/23/23 History acetaminophen 325 mg tablet 650 mg PO Q6H PRN Pain, Mild 03/23/23 07/23/23 History ascorbic acid (vitamin C) 500 mg 500 mg PO BID 03/23/23 07/23/23 History tablet bisacodyl 5 mg tablet,delayed 10 mg PO BID 03/23/23 07/23/23 History release (Dulcolax (bisacodyl)) lactulose 10 gram/15 mL oral 20 g PO TID 03/23/23 07/23/23 History solution methadone 5 mg tablet 5 mg PO BID 03/23/23 07/23/23 History mirtazapine 15 mg tablet (Remeron) 15 mg PO HS 03/23/23 07/23/23 History multivit with minerals-iron 18 1 tablet PO DAILY 03/23/23 07/23/23 History mg-folic ac 400 mcg-vit K 25 mcg tablet (Adults Multivitamin) oxycodone-acetaminophen 7.5 mg-325 1 tablet PO Q6H PRN Pain 03/23/23 07/23/23 History mg tablet apixaban 5 mg tablet (Eliquis) 5 mg PO Q12HR #60 tabs 04/01/23 07/23/23 Rx bisacodyl 10 mg rectal suppository 10 mg RECTAL DAILY PRN 04/01/23 07/23/23 Rx Constipation #12 ea ipratropium bromide 0.02 % 0.5 mg (2.5 mL) inhalation Q6HRT 04/01/23 07/23/23 Rx solution for inhalation #75 mL levalbuterol HCl 1.25 mg/3 mL 1.25 mg inhalation Q6H PRN SOB 07/23/23 07/23/23 History solution for nebulization levothyroxine 25 mcg tablet 25 mcg PO DAILY 07/23/23 07/23/23 History polyethylene glycol 3350 17 gram 17 g PO DAILY PRN Constipation 07/23/23 07/23/23 History oral powder packet (Miralax) polyethylene glycol 3350 17 17 g PO DAILY 07/23/23 07/23/23 History gram/dose oral powder (Miralax) silver sulfadiazine 1 % topical 1 applic topical DAILY buttocks, 07/23/23 07/23/23 History cream (SSD) sacrum, and coccyx sucralfate 1 gram tablet (Carafate) 1 g PO TID 07/23/23 07/23/23 History trimethobenzamide 100 mg/mL 100 mg IM ONCE PRN Nausea And 07/23/23 07/23/23 History intramuscular solution (Tigan) Vomiting Laboratory Tests 08/04/23 08/04/23 08/04/23 12:31 17:56 23:18 WBC RBC Hgb Hct MCV MCH MCHC RDW Plt Count MPV Sodium Potassium Chloride Carbon Dioxide Anion Gap BUN Creatinine Estim Creat Clear Calc Estimated GFR Glucose POC Capillary Glucose 119 H mg/dl 81 mg/dl
[2023-08-05 09:23] LABS: Glucose Point of Care 70 mg/dl (65-105)
[2023-08-05 09:32] LABS: INR 1.6; Prothrombin Time 20.2 Seconds (11.1-14.7)
--- NOTE | 2023-08-05 09:54 | SUR.PREOP ---
0927 Dr Thompson called with PT and INR results. Dr. Thompson cancelled bronchoscopy for today due to high PT. Patient informed of the results and reason for cancellation of procedure. Dr. Thompson said he would reschedule procedure for later in the week when PT was within normal limits.
[2023-08-05] MEDS: LACTULOSE 20 GM/30 ML UDC PO ×2 (10:24→17:26)
[2023-08-05] MEDS: POTASSIUM CHLORIDE 20 MEQ PACKET (FOR LIQUID) PO ×2 (10:25→17:25)
[2023-08-05] MEDS: MULTIVITAMINS /C LUTEIN (CENTRUM SILVER) TABLET *BKC 1 TAB PO (10:25)
[2023-08-05] MEDS: ARIPiprazole 2 MG TABLET 4 MG PO (10:25)
[2023-08-05] MEDS: ASCORBIC ACID 500 MG TABLET PO ×2 (10:25→17:25)
[2023-08-05] MEDS: guaiFENesin 12 HR 600 MG TABCR 1200 MG PO ×2 (10:25→20:46)
[2023-08-05] MEDS: BISACODYL 5 MG TABLET EC 10 MG PO ×2 (10:25→17:25)
[2023-08-05] MEDS: buPROPion HCL XL (24 HR) 150 MG TABCR 300 MG PO (10:25)
[2023-08-05] MEDS: methADONE HCL (*CRX) 5 MG TABLET PO ×2 (10:26→17:25)
[2023-08-05] MEDS: polyethylene glycoL 3350 17 GM POWD.PACK PO (10:26)
[2023-08-05] MEDS: PANTOPRAZOLE SODIUM IV 40 MG VIAL IV PUSH ×2 (10:26→20:47)
[2023-08-05] MEDS: FUROSEMIDE INJ 40 MG/4 ML VIAL 20 MG IV PUSH ×2 (10:26→17:26)
[2023-08-05] MEDS: GABAPENTIN 100 MG CAPSULE PO ×2 (10:26→17:25)
[2023-08-05] MEDS: BISACODYL 10 MG SUPPOSITORY RECTAL (10:26)
--- NOTE | 2023-08-05 10:29 | PM.PNPUL ---
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 Diagnostic studies have shown a right upper lobe consolidation with some volume loss of the right upper lobe but without complete atelectasis of the right upper lobe. There is no clear-cut evidence of intrabronchial lesion causing atelectasis on chest CT. The patient has been treated with 3 antibiotics and aggressive pulmonary toilet. He had mild leukopenia, no left shift, and no symptoms such as cough sputum production fever that would suggest healthcare associated pneumonia. MRSA screening is negative. the patient has been on Flagyl for possible aspiration pneumonia. Respiratory status essentially unchanged over the last week. Patient has no evidence of cough chest congestion or sputum production. Video swallow study showed no evidence of aspiration. Last chest x-ray unchanged. Patient was taken off isolation for COVID. Bronchoscopy was scheduled today but has been postponed due to prolonged PT. patient was taken off anticoagulants several days ago. Cause of a prolonged PT unclear at this point. Plan: Continue with Flagyl for possible postobstructive anaerobic pneumonia. Monitor PT INR daily. Hopefully be able to do bronchoscopy later on this week. (2) History of lung cancer: Code(s): Z85.118 - Personal history of other malignant neoplasm of bronchus and lung Status: Acute (3) Right upper lobe pneumonia: Code(s): J18.9 - Pneumonia, unspecified organism Status: Acute (4) Obstructive sleep apnea: Code(s): G47.33 - Obstructive sleep apnea (adult) (pediatric) Status: Acute (5) Type 2 diabetes mellitus: Code(s): E11.9 - Type 2 diabetes mellitus without complications Status: Acute (6) Chronic obstructive pulmonary disease: Code(s): J44.9 - Chronic obstructive pulmonary disease, unspecified Status: Acute (7) COVID-19: Code(s): U07.1 - COVID-19 Status: Acute (8) CHF (congestive heart failure): Qualifiers: Heart failure chronicity: acute Heart failure type: unspecified Qualified Code(s): I50.9 - Heart failure, unspecified Code(s): I50.9 - Heart failure, unspecified Status: Acute (9) Atrial fibrillation: Qualifiers: Atrial fibrillation type: unspecified Qualified Code(s): I48.91 - Unspecified atrial fibrillation Code(s): I48.91 - Unspecified atrial fibrillation Status: Acute (10) Sacral decubitus ulcer: Code(s): L89.159 - Pressure ulcer of sacral region, unspecified stage Status: Acute (11) Non-small cell carcinoma of lung: Code(s): C34.90 - Malignant neoplasm of unspecified part of unspecified bronchus or lung Status: Acute Subjective Date/time seen: 08/05/23 10:29 Interval history: Patient has no new respiratory symptoms. Currently on low-flow oxygen via nasal cannula. Bronchoscopy has been postponed due to prolonged PT Review of Systems Review of Systems: All systems reviewed & are unremarkable except as noted in HPI and below (HPI and below) Exam Narrative: GENERAL APPEARANCE: Well developed, well nourished, alert and cooperative, and appears to be in no acute distress while on oxygen via nasal cannula SKIN: Inspection of the skin reveals no rashes, ulcerations or petechiae. HEENT: Sclerae anicteric and conjunctivae pink and moist. Extraocular movements were intact and pupils were equal, round, dry oral mucosa. NECK: Supple. There was no thyroid enlargement, and no tenderness, or masses were felt. CHEST: Normal AP diameter and normal contour without any kyp
[2023-08-05 10:30] VITALS: BP 115/69; PULSE 86
--- NOTE | 2023-08-05 11:46 | PM.IMPN ---
Progress Note: A&P Assessment and Plan (1) Fecal impaction: Code(s): K56.41 - Fecal impaction Status: Acute Assessment and Plan: Disimpacted under sedation by GI Continue bowel regimen (2) Right upper lobe consolidation: Code(s): J18.1 - Lobar pneumonia, unspecified organism Status: Acute Assessment and Plan: Likely residual from prior lung CA Recent COVID+, now off precautions (3) History of lung cancer: Code(s): Z85.118 - Personal history of other malignant neoplasm of bronchus and lung Status: Acute Assessment and Plan: Bronch planned for today but postponed because of prolonged PT. Bronch planned for later this week once PT comes within normal limits (4) Type 2 diabetes mellitus: Code(s): E11.9 - Type 2 diabetes mellitus without complications Status: Acute Assessment and Plan: Control adequate 08/04 (5) Chronic obstructive pulmonary disease: Code(s): J44.9 - Chronic obstructive pulmonary disease, unspecified Status: Acute Assessment and Plan: Clinically stable on 2 L NC (6) Acute decompensated heart failure: Code(s): I50.9 - Heart failure, unspecified Status: Acute Assessment and Plan: Likely iatrogenic Clinically improved Subjective Date/time seen: 08/05/23 11:46 Interval history: Reports some shortness of breath. No other complaints Review of Systems Review of Systems: All systems reviewed & are unremarkable except as noted in HPI and below (HPI and below) Exam Narrative: GENERAL APPEARANCE: Well developed, well nourished, alert and cooperative, and appears to be in no acute distress while on oxygen via nasal cannula SKIN: Inspection of the skin reveals no rashes, ulcerations or petechiae. HEENT: Sclerae anicteric and conjunctivae pink and moist. Extraocular movements were intact and pupils were equal, round, dry oral mucosa. NECK: Supple. There was no thyroid enlargement, and no tenderness, or masses were felt. CHEST: Normal AP diameter and normal contour without any kyphoscoliosis. LUNGS: Clear breath sounds anteriorly no wheezing. CARDIAC: There was a regular rate and rhythm without any murmurs, gallops, rubs. ABDOMEN: Soft and nontender with normal bowel sounds. There was no organomegaly. LYMPH NODES: No lymphadenopathy was appreciated in the neck. EXTREMITIES: No cyanosis, clubbing or edema. NEUROLOGIC: Alert and oriented x 3. Normal affect. Objective Data Vital Signs Vital Signs: Vital Signs - 24 hr 08/04/23 16:00 08/04/23 22:12 08/05/23 06:14 Temperature 98.1 F 96.6 F L 96.7 F L Pulse Rate 93 90 88 Respiratory Rate 14 20 20 Blood Pressure 111/73 97/69 L 94/64 L Pulse Oximetry 94 95 95 Oxygen Delivery Oxygen Flow Rate 08/05/23 10:30 08/05/23 08:00 Temperature Pulse Rate 86 Respiratory Rate Blood Pressure 115/69 Pulse Oximetry 95 Oxygen Delivery Nasal Cannula Oxygen Flow Rate 2 Intake/Output Intake/Output: Intake & Output 08/02/23 08/03/23 08/04/23 08/05/23 23:59 23:59 23:59 23:59 Intake Total 2400 / 2400 1180 / 1180 795 / 795 300 / 300 Output Total 1050 / 1050 3375 / 3375 2225 / 2225 500 / 500 Balance 1350 / 1350 -2195 / -2195 -1430 / -1430 -200 / -200 Meds/Results Medications: Active Medications Generic Name Dose Route Start Last Admin Trade Name Freq PRN Reason Stop Dose Admin Acetaminophen 650 mg 07/25/23 08:58 07/28/23 06:42 Acetaminophen 325 Mg Tablet PO 650 mg Q6H PRN Administration Pain, Mild Albuterol 1 puff 07/25/23 08:58 Albuterol Sulfate (*Sp) Aerosol 1 Puff INHALATION Q4HRT PRN Shortness Of Breath Aripiprazole 4 mg 07/25/23 09:00 08/05/23 10:25 Aripiprazole 2 Mg Tablet PO 4 mg DAILY JILLIAN Administration Ascorbic Acid 500 mg 07/25/23 09:00 08/05/23 10:25 Ascorbic Acid 500 Mg Tablet PO 500 mg BID JILLIAN Administration Bisacodyl 10 mg 07/25/23 17:00
[2023-08-05 12:05] LABS: Glucose Point of Care 90 mg/dl (65-105)
[2023-08-05 14:18] VITALS: BP 108/58; PULSE 83; RESP 16; TEMP 36.1; O2SAT 98
--- NOTE | 2023-08-05 16:18 | WPDGIPROGNO ---
Progress Note: A&P Assessment and Plan (1) Fecal impaction: Code(s): K56.41 - Fecal impaction Status: Acute Assessment and Plan: treated medically and had manual disimpaction continue with bowel regimen will follow from afar as needed (2) History of lung cancer: Code(s): Z85.118 - Personal history of other malignant neoplasm of bronchus and lung Status: Acute Assessment and Plan: pulmonary on board plan is bronchoscopy when coags better (3) Chronic obstructive pulmonary disease: Code(s): J44.9 - Chronic obstructive pulmonary disease, unspecified Status: Acute Assessment and Plan: stable (4) Nausea and vomiting in adult: Code(s): R11.2 - Nausea with vomiting, unspecified Status: Acute Assessment and Plan: resolved, monitor (5) Atrial fibrillation with controlled ventricular rate: Code(s): I48.91 - Unspecified atrial fibrillation Status: Chronic Assessment and Plan: Plan Subjective Date/time seen: 08/05/23 16:18 Interval history: no new events, he says that had BM yesterday Review of Systems Review of Systems: All systems reviewed & are unremarkable except as noted in HPI and below Exam Const: Other: chronically ill appearing HENMT: Face/Nose/Sinus: Normal nares present Eyes: General: appearance normal, both eyes and all related structures Neck: Neck: supple Resp: Auscultation: rales Cardio: Rate: regular rate GI: GI Palp: Yes Soft to palpation, No Tenderness to palpation present (GI) and No Guarding due to palpation present (GI) Skin: General skin exam: normal color Neuro: Speech: normal speech Motor exam (neuro): 5/5 motor strength present throughout Extrem: General: normal to inspection Psych: Affect: normal affect Objective Data Vital Signs Vital Signs: Vital Signs - 24 hr 08/04/23 22:12 08/05/23 06:14 08/05/23 10:30 Temperature 96.6 F L 96.7 F L Pulse Rate 90 88 86 Respiratory Rate 20 20 Blood Pressure 97/69 L 94/64 L 115/69 Pulse Oximetry 95 95 Oxygen Delivery Oxygen Flow Rate 08/05/23 08:00 08/05/23 14:18 Temperature 97.0 F L Pulse Rate 83 Respiratory Rate 16 Blood Pressure 108/58 L Pulse Oximetry 95 98 Oxygen Delivery Nasal Cannula Oxygen Flow Rate 2 Intake/Output Intake/Output: Intake & Output 08/02/23 08/03/23 08/04/23 08/05/23 23:59 23:59 23:59 23:59 Intake Total 2400 1180 795 340 Output Total 1050 1360 2227 1500 Balance 9179 -9737 -7139 -6434 Meds/Results Medications: Active Medications Generic Name Dose Route Start Last Admin Trade Name Freq PRN Reason Stop Dose Admin Acetaminophen 650 mg 07/25/23 08:58 07/28/23 06:42 Acetaminophen 325 Mg Tablet PO 650 mg Q6H PRN Administration Pain, Mild Albuterol 1 puff 07/25/23 08:58 Albuterol Sulfate (*Sp) Aerosol 1 Puff INHALATION Q4HRT PRN Shortness Of Breath Aripiprazole 4 mg 07/25/23 09:00 08/05/23 10:25 Aripiprazole 2 Mg Tablet PO 4 mg DAILY JILLIAN Administration Ascorbic Acid 500 mg 07/25/23 09:00 08/05/23 10:25 Ascorbic Acid 500 Mg Tablet PO 500 mg BID JILLIAN Administration Bisacodyl 10 mg 07/25/23 17:00 08/05/23 10:25 Bisacodyl 5 Mg Tablet Ec PO 10 mg BID JILLIAN Administration Bisacodyl 10 mg 08/03/23 09:00 08/05/23 10:26 Bisacodyl 10 Mg Suppository RECTAL 10 mg DAILY JILLIAN Administration Bupropion HCl 300 mg 07/25/23 09:00 08/05/23 10:25 Bupropion Hcl Xl (24 Hr) 150 Mg Tabcr PO 300 mg DAILY JILLIAN Administration Dextrose 12.5 gm 07/23/23 21:01 Dextrose 50% 25 Gm/50 Ml Syringe IV PUSH PRN PRN Hypoglycemia Protocol Furosemide 20 mg 08/03/23 12:30 08/05/23 10:26 Furosemide Inj 40 Mg/4 Ml Vial IV PUSH 20 mg BID JILLIAN Administration Gabapentin 100 mg 07/25/23 09:00 08/05/23 13:59 Gabapentin 100 Mg Capsule PO Not Given TID JILLIAN Glucagon 1 mg
[2023-08-05 17:57] LABS: Glucose Point of Care 59 mg/dl (65-105)
[2023-08-05] MEDS: GLUCOSE ORAL GEL 15 GM OF GLUCSE IN 37.5 GM TUBE PO (18:00)
[2023-08-05 18:29] LABS: Glucose Point of Care 65 mg/dl (65-105)
[2023-08-05 18:36] LABS: Glucose Point of Care 75 mg/dl (65-105)
[2023-08-05 20:00] VITALS: BP 115/66; PULSE 97; RESP 20; TEMP 36.7; O2SAT 94
[2023-08-05] MEDS: TAMSULOSIN HCL 0.4 MG CAPSULE PO (20:46)
[2023-08-05] MEDS: MIRTAZAPINE 15 MG TABLET PO (20:46)
[2023-08-05] MEDS: rOPINIRole HCL 1 MG TABLET PO (20:46)
[2023-08-06 00:34] LABS: Glucose Point of Care 92 mg/dl (65-105)
[2023-08-06] MEDS: METOCLOPRAMIDE HCL INJ 10 MG/2 ML VIAL 5 MG IV PUSH ×4 (00:46→17:47)
[2023-08-06] MEDS: metroNIDAZOLE 500 MG/ISO 100ML 500 MG/100 ML BAG 100 MG IVPB ×2 (00:46→05:54)
[2023-08-06] MEDS: LEVOTHYROXINE SODIUM 25 MCG TABLET PO (05:52)
[2023-08-06] MEDS: SUCRALFATE 1 GM TABLET PO ×3 (05:52→17:41)
[2023-08-06 06:50] VITALS: BP 169/76; PULSE 89; RESP 14; TEMP 36.6; O2SAT 94
[2023-08-06 08:26] VITALS: O2SAT 94
[2023-08-06 09:04] LABS: INR 1.5; Prothrombin Time 19.4 Seconds (11.1-14.7)
--- NOTE | 2023-08-06 09:48 | PCNFU ---
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 Continue with current goal. Pt current nutrition is Minced and moist per speech therapy recommendations. Nutrition recommendation: Add RA and Ensure compact BID Last recorded weight is 73.2 kg. Bowel Motility: +BM 08/06 Labs Reviewed: Hgb:9.9, HCT:30.4 Meds Noted: zofran, lasix, reglan, lactulose, KCL Skin: Stage 2/3 to coccyx Additional Notes: Pt diet is minced and moist level 5, intake poor overall at 10-50% intakes. Recommend to add Ensure compact BID for additional caloric intake, RA BID for wound healing. Monitoring intakes, weights, labs, supplement tolerance, wound healing, plan of care Follow up in 5 days
[2023-08-06] MEDS: BISACODYL 10 MG SUPPOSITORY RECTAL (09:52)
[2023-08-06 09:55] VITALS: O2SAT 91
[2023-08-06] MEDS: ASCORBIC ACID 500 MG TABLET PO ×2 (09:57→17:41)
[2023-08-06] MEDS: BISACODYL 5 MG TABLET EC 10 MG PO ×2 (09:57→17:41)
[2023-08-06] MEDS: ARIPiprazole 2 MG TABLET 4 MG PO (09:57)
[2023-08-06] MEDS: guaiFENesin 12 HR 600 MG TABCR 1200 MG PO ×2 (09:57→22:19)
[2023-08-06] MEDS: MULTIVITAMINS /C LUTEIN (CENTRUM SILVER) TABLET *BKC 1 TAB PO (09:57)
[2023-08-06] MEDS: buPROPion HCL XL (24 HR) 150 MG TABCR 300 MG PO (09:57)
[2023-08-06] MEDS: GABAPENTIN 100 MG CAPSULE PO ×3 (09:57→17:41)
[2023-08-06] MEDS: methADONE HCL (*CRX) 5 MG TABLET PO ×2 (09:57→17:41)
[2023-08-06] MEDS: FUROSEMIDE INJ 40 MG/4 ML VIAL 20 MG IV PUSH ×2 (09:58→17:41)
[2023-08-06] MEDS: LACTULOSE 20 GM/30 ML UDC PO ×3 (09:58→17:48)
[2023-08-06] MEDS: POTASSIUM CHLORIDE 20 MEQ PACKET (FOR LIQUID) PO ×2 (09:58→17:41)
[2023-08-06] MEDS: PANTOPRAZOLE SODIUM IV 40 MG VIAL IV PUSH ×2 (09:59→22:18)
--- NOTE | 2023-08-06 11:14 | PM.IMPN ---
Progress Note: A&P Assessment and Plan (1) Fecal impaction: Code(s): K56.41 - Fecal impaction Status: Acute Assessment and Plan: Disimpacted under sedation by GI Continue bowel regimen (2) Right upper lobe consolidation: Code(s): J18.1 - Lobar pneumonia, unspecified organism Status: Acute Assessment and Plan: Likely residual from prior lung CA Recent COVID+, now off precautions (3) History of lung cancer: Code(s): Z85.118 - Personal history of other malignant neoplasm of bronchus and lung Status: Acute Assessment and Plan: Bronch pending because of prolonged PT. Bronch planned for later this week once PT comes within normal limits (4) Type 2 diabetes mellitus: Code(s): E11.9 - Type 2 diabetes mellitus without complications Status: Acute Assessment and Plan: Control adequate 08/04 (5) Chronic obstructive pulmonary disease: Code(s): J44.9 - Chronic obstructive pulmonary disease, unspecified Status: Acute Assessment and Plan: Clinically stable on 2 L NC (6) Acute decompensated heart failure: Code(s): I50.9 - Heart failure, unspecified Status: Acute Assessment and Plan: Likely iatrogenic Clinically improved Subjective Date/time seen: 08/06/23 11:14 Interval history: At baseline. Some shortness of breath Review of Systems Review of Systems: All systems reviewed & are unremarkable except as noted in HPI and below Exam Narrative: GENERAL APPEARANCE: On oxygen by nasal cannula SKIN: Inspection of the skin reveals no rashes, ulcerations or petechiae. HEENT: Sclerae anicteric and conjunctivae pink and moist. Extraocular movements were intact and pupils were equal, round, dry oral mucosa. NECK: Supple. There was no thyroid enlargement, and no tenderness, or masses were felt. CHEST: Normal AP diameter and normal contour without any kyphoscoliosis. LUNGS: Clear breath sounds anteriorly no wheezing. CARDIAC: There was a regular rate and rhythm without any murmurs, gallops, rubs. ABDOMEN: Soft and nontender with normal bowel sounds. There was no organomegaly. LYMPH NODES: No lymphadenopathy was appreciated in the neck. EXTREMITIES: No cyanosis, clubbing or edema. NEUROLOGIC: Alert and oriented x 3. Normal affect. Objective Data Vital Signs Vital Signs: Vital Signs - 24 hr 08/05/23 14:18 08/05/23 20:00 08/06/23 06:50 Temperature 97.0 F L 98.0 F 97.9 F Pulse Rate 83 97 89 Respiratory Rate 16 20 14 Blood Pressure 108/58 L 115/66 169/76 H Pulse Oximetry 98 94 94 Oxygen Delivery Oxygen Flow Rate 08/06/23 08:26 Temperature Pulse Rate Respiratory Rate Blood Pressure Pulse Oximetry 94 Oxygen Delivery Nasal Cannula Oxygen Flow Rate 1 Intake/Output Intake/Output: Intake & Output 08/03/23 08/04/23 08/05/23 08/06/23 23:59 23:59 23:59 23:59 Intake Total 1180 / 1180 795 / 795 655 / 655 220 / 220 Output Total 3375 / 3375 2225 / 2225 1950 / 1950 725 / 725 Balance -2195 / -2195 -1430 / -1430 -1295 / -1295 -505 / -505 Meds/Results Medications: Active Medications Generic Name Dose Route Start Last Admin Trade Name Freq PRN Reason Stop Dose Admin Acetaminophen 650 mg 07/25/23 08:58 07/28/23 06:42 Acetaminophen 325 Mg Tablet PO 650 mg Q6H PRN Administration Pain, Mild Albuterol 1 puff 07/25/23 08:58 Albuterol Sulfate (*Sp) Aerosol 1 Puff INHALATION Q4HRT PRN Shortness Of Breath Aripiprazole 4 mg 07/25/23 09:00 08/06/23 09:57 Aripiprazole 2 Mg Tablet PO 4 mg DAILY JILLIAN Administration Ascorbic Acid 500 mg 07/25/23 09:00 08/06/23 09:57 Ascorbic Acid 500 Mg Tablet PO 500 mg BID JILLIAN Administration Bisacodyl 10 mg 07/25/23 17:00 08/06/23 09:57 Bisacodyl 5 Mg Tablet Ec PO 10 mg BID JILLIAN Administration Bisacodyl 10 mg 08/03/23 09:00 08/06/23 09:52 Bisacodyl 10 Mg Suppository RECTAL 10 mg DAILY [facility]
[2023-08-06 11:18] LABS: Glucose Point of Care 84 mg/dl (65-105)
[2023-08-06 11:21] LABS: Glucose Point of Care 105 mg/dl (65-105)
--- NOTE | 2023-08-06 12:41 | PM.PNPUL ---
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 Diagnostic studies have shown a right upper lobe consolidation with some volume loss of the right upper lobe but without complete atelectasis of the right upper lobe. There is no clear-cut evidence of intrabronchial lesion causing atelectasis on chest CT. The patient has been treated with 3 antibiotics and aggressive pulmonary toilet. He had mild leukopenia, no left shift, and no symptoms such as cough sputum production fever that would suggest healthcare associated pneumonia. MRSA screening is negative. the patient has been on Flagyl for possible aspiration pneumonia. Respiratory status essentially unchanged over the last week. Patient has no evidence of cough chest congestion or sputum production. Video swallow study showed no evidence of aspiration. Last chest x-ray unchanged. Patient was taken off isolation for COVID. Bronchoscopy postponed due to prolonged PT. patient was taken off anticoagulants several days ago. PT checked today lower but still prolonged. Plan: Continue with Flagyl for possible postobstructive anaerobic pneumonia. Monitor PT INR daily. Hopefully be able to do bronchoscopy later on this week. SCDs for DVT prophylaxis. (2) History of lung cancer: Code(s): Z85.118 - Personal history of other malignant neoplasm of bronchus and lung Status: Acute (3) Right upper lobe pneumonia: Code(s): J18.9 - Pneumonia, unspecified organism Status: Acute (4) Obstructive sleep apnea: Code(s): G47.33 - Obstructive sleep apnea (adult) (pediatric) Status: Acute (5) Type 2 diabetes mellitus: Code(s): E11.9 - Type 2 diabetes mellitus without complications Status: Acute (6) Chronic obstructive pulmonary disease: Code(s): J44.9 - Chronic obstructive pulmonary disease, unspecified Status: Acute (7) COVID-19: Code(s): U07.1 - COVID-19 Status: Acute (8) CHF (congestive heart failure): Qualifiers: Heart failure chronicity: acute Heart failure type: unspecified Qualified Code(s): I50.9 - Heart failure, unspecified Code(s): I50.9 - Heart failure, unspecified Status: Acute (9) Atrial fibrillation: Qualifiers: Atrial fibrillation type: unspecified Qualified Code(s): I48.91 - Unspecified atrial fibrillation Code(s): I48.91 - Unspecified atrial fibrillation Status: Acute (10) Sacral decubitus ulcer: Code(s): L89.159 - Pressure ulcer of sacral region, unspecified stage Status: Acute (11) Non-small cell carcinoma of lung: Code(s): C34.90 - Malignant neoplasm of unspecified part of unspecified bronchus or lung Status: Acute Subjective Date/time seen: 08/06/23 12:41 Interval history: Patient remains on supplemental oxygen via nasal cannula. He has no new respiratory symptoms. Complaining of shortness of breath at rest but no cough fever chills hemoptysis or night sweats. PT still prolonged on today's testing Review of Systems Review of Systems: All systems reviewed & are unremarkable except as noted in HPI and below (HPI and below) Exam Narrative: GENERAL APPEARANCE: Well developed, well nourished, alert and cooperative, and appears to be in no acute distress while on oxygen via nasal cannula SKIN: Inspection of the skin reveals no rashes, ulcerations or petechiae. HEENT: Sclerae anicteric and conjunctivae pink and moist. Extraocular movements were intact and pupils were equal, round, dry oral mucosa. NECK: Supple. There was no thyroid enlargement, and no tenderness, o
[2023-08-06 13:48] VITALS: BP 109/71; PULSE 68; RESP 14; TEMP 37; O2SAT 100
[2023-08-06] MEDS: oxyCODONE/ACETAMINOPHEN (*CRX) 5-325 MG TABLET 1 TABLET PO (15:19)
[2023-08-06] MEDS: TAMSULOSIN HCL 0.4 MG CAPSULE PO (22:18)
[2023-08-06] MEDS: rOPINIRole HCL 1 MG TABLET PO (22:18)
[2023-08-06] MEDS: MIRTAZAPINE 15 MG TABLET PO (22:19)
[2023-08-06 22:38] VITALS: BP 127/70; PULSE 92; RESP 20; TEMP 37.1; O2SAT 97
[2023-08-07 00:27] LABS: Glucose Point of Care 89 mg/dl (65-105)
[2023-08-07] MEDS: METOCLOPRAMIDE HCL INJ 10 MG/2 ML VIAL 5 MG IV PUSH ×3 (01:00→12:24)
[2023-08-07] MEDS: SUCRALFATE 1 GM TABLET PO ×3 (05:53→17:28)
[2023-08-07] MEDS: LEVOTHYROXINE SODIUM 25 MCG TABLET PO (05:53)
[2023-08-07 06:02] LABS: Glucose Point of Care 75 mg/dl (65-105)
[2023-08-07 06:45] VITALS: BP 127/63; PULSE 97; RESP 18; TEMP 36.4; O2SAT 97
[2023-08-07 07:42] LABS: INR 1.5; Prothrombin Time 18.8 Seconds (11.1-14.7)
[2023-08-07 08:56] LABS: D Dimer 0.75 ug/mL (<0.48)
[2023-08-07] MEDS: BISACODYL 5 MG TABLET EC 10 MG PO (09:14)
[2023-08-07] MEDS: LACTULOSE 20 GM/30 ML UDC PO (09:14)
[2023-08-07] MEDS: FUROSEMIDE INJ 40 MG/4 ML VIAL 20 MG IV PUSH ×2 (09:14→17:28)
[2023-08-07] MEDS: POTASSIUM CHLORIDE 20 MEQ PACKET (FOR LIQUID) PO ×2 (09:14→17:29)
[2023-08-07] MEDS: PANTOPRAZOLE SODIUM IV 40 MG VIAL IV PUSH ×2 (09:15→20:38)
[2023-08-07 09:20] VITALS: O2SAT 95
[2023-08-07] MEDS: buPROPion HCL XL (24 HR) 150 MG TABCR 300 MG PO (09:20)
[2023-08-07] MEDS: MULTIVITAMINS /C LUTEIN (CENTRUM SILVER) TABLET *BKC 1 TAB PO (09:20)
[2023-08-07] MEDS: methADONE HCL (*CRX) 5 MG TABLET PO ×2 (09:20→17:28)
[2023-08-07] MEDS: guaiFENesin 12 HR 600 MG TABCR 1200 MG PO ×2 (09:20→20:40)
[2023-08-07] MEDS: GABAPENTIN 100 MG CAPSULE PO ×3 (09:20→17:28)
[2023-08-07] MEDS: ARIPiprazole 2 MG TABLET 4 MG PO (09:20)
[2023-08-07] MEDS: ASCORBIC ACID 500 MG TABLET PO ×2 (09:20→17:28)
--- NOTE | 2023-08-07 09:58 | PM.IMPN ---
Progress Note: A&P Assessment and Plan (1) Fecal impaction: Code(s): K56.41 - Fecal impaction Status: Acute Assessment and Plan: Disimpacted under sedation by GI Continue bowel regimen (2) Right upper lobe consolidation: Code(s): J18.1 - Lobar pneumonia, unspecified organism Status: Acute Assessment and Plan: Likely residual from prior lung CA Recent COVID+, now off precautions (3) History of lung cancer: Code(s): Z85.118 - Personal history of other malignant neoplasm of bronchus and lung Status: Acute Assessment and Plan: Bronch pending because of prolonged PT. Bronch planned for later this week once PT comes within normal limits (4) Type 2 diabetes mellitus: Code(s): E11.9 - Type 2 diabetes mellitus without complications Status: Acute Assessment and Plan: Control adequate 08/04 (5) Chronic obstructive pulmonary disease: Code(s): J44.9 - Chronic obstructive pulmonary disease, unspecified Status: Acute Assessment and Plan: Clinically stable on 1 L NC (6) Acute decompensated heart failure: Code(s): I50.9 - Heart failure, unspecified Status: Acute Assessment and Plan: Likely iatrogenic Clinically improved Plan PT and OT Subjective Date/time seen: 08/07/23 09:58 Interval history: still little short of breath. Review of Systems Review of Systems: All systems reviewed & are unremarkable except as noted in HPI and below (HPI and below) Exam Narrative: GENERAL APPEARANCE: On oxygen by nasal cannula SKIN: Inspection of the skin reveals no rashes, ulcerations or petechiae. HEENT: Sclerae anicteric and conjunctivae pink and moist. NECK: Supple. CHEST: Normal AP diameter and normal contour without any kyphoscoliosis. LUNGS: Mild wheezing. CARDIAC: There was a regular rate and rhythm without any murmurs, gallops, rubs. ABDOMEN: Soft and nontender with normal bowel sounds. There was no organomegaly. LYMPH NODES: No lymphadenopathy was appreciated in the neck. EXTREMITIES: No cyanosis, clubbing or edema. NEUROLOGIC: Alert and oriented x 3. Objective Data Vital Signs Vital Signs: Vital Signs - 24 hr 08/06/23 13:48 08/06/23 22:38 08/07/23 06:45 Temperature 98.6 F 98.7 F 97.5 F L Pulse Rate 68 92 97 Respiratory Rate 14 20 18 Blood Pressure 109/71 127/70 127/63 Pulse Oximetry 100 97 97 Intake/Output Intake/Output: Intake & Output 08/04/23 08/05/23 08/06/23 08/07/23 23:59 23:59 23:59 23:59 Intake Total 795 / 795 655 / 655 1064 / 1064 650 / 650 Output Total 2225 / 2225 1950 / 1950 1825 / 1825 350 / 350 Balance -1430 / -1430 -1295 / -1295 -761 / -761 300 / 300 Meds/Results Medications: Active Medications Generic Name Dose Route Start Last Admin Trade Name Freq PRN Reason Stop Dose Admin Acetaminophen 650 mg 07/25/23 08:58 07/28/23 06:42 Acetaminophen 325 Mg Tablet PO 650 mg Q6H PRN Administration Pain, Mild Albuterol 1 puff 07/25/23 08:58 Albuterol Sulfate (*Sp) Aerosol 1 Puff INHALATION Q4HRT PRN Shortness Of Breath Aripiprazole 4 mg 07/25/23 09:00 08/07/23 09:20 Aripiprazole 2 Mg Tablet PO 4 mg DAILY JILLIAN Administration Ascorbic Acid 500 mg 07/25/23 09:00 08/07/23 09:20 Ascorbic Acid 500 Mg Tablet PO 500 mg BID JILLIAN Administration Bisacodyl 10 mg 07/25/23 17:00 08/07/23 09:14 Bisacodyl 5 Mg Tablet Ec PO 10 mg BID JILLIAN Administration Bisacodyl 10 mg 08/03/23 09:00 08/07/23 09:20 Bisacodyl 10 Mg Suppository RECTAL Not Given DAILY JILLIAN Bupropion HCl 300 mg 07/25/23 09:00 08/07/23 09:20 Bupropion Hcl Xl (24 Hr) 150 Mg Tabcr PO 300 mg DAILY JILLIAN Administration Dextrose 12.5 gm 07/23/23 21:01 Dextrose 50% 25 Gm/50 Ml Syringe IV PUSH PRN PRN Hypoglycemia Protocol Furosemide 20 mg 08/03/23 12:30 08/07/23 09:14 Furosemide Inj 40 Mg/4 Ml Vial IV PUSH
[2023-08-07 11:26] LABS: Glucose Point of Care 127 mg/dl (65-105)
[2023-08-07 13:57] VITALS: BP 109/62; PULSE 96; RESP 18; TEMP 36.9; O2SAT 100
[2023-08-07] MEDS: oxyCODONE/ACETAMINOPHEN (*CRX) 5-325 MG TABLET 1 TABLET PO (17:28)
[2023-08-07 17:47] LABS: Glucose Point of Care 108 mg/dl (65-105)
[2023-08-07 20:00] VITALS: PULSE 86; RESP 18; O2SAT 97
[2023-08-07] MEDS: MIRTAZAPINE 15 MG TABLET PO (20:39)
[2023-08-07] MEDS: rOPINIRole HCL 1 MG TABLET PO (20:40)
[2023-08-07] MEDS: TAMSULOSIN HCL 0.4 MG CAPSULE PO (20:40)
[2023-08-07 20:47] VITALS: BP 102/66; PULSE 86; RESP 18; TEMP 36.4; O2SAT 97
[2023-08-07 23:19] VITALS: PULSE 80; RESP 16; O2SAT 95
[2023-08-07 23:27] LABS: Glucose Point of Care 121 mg/dl (65-105)
[2023-08-08] MEDS: METOCLOPRAMIDE HCL INJ 10 MG/2 ML VIAL 5 MG IV PUSH ×4 (00:04→17:23)
[2023-08-08 05:09] LABS: Glucose Point of Care 101 mg/dl (65-105)
[2023-08-08 05:11] VITALS: BP 103/62; PULSE 73; RESP 18; TEMP 36.5; O2SAT 97
[2023-08-08 05:35] LABS: Glucose Point of Care 126 mg/dl (65-105)
[2023-08-08] MEDS: LEVOTHYROXINE SODIUM 25 MCG TABLET PO (05:36)
[2023-08-08] MEDS: SUCRALFATE 1 GM TABLET PO ×3 (05:36→17:23)
[2023-08-08 07:22] LABS: INR 1.2; Prothrombin Time 16.2 Seconds (11.1-14.7)
[2023-08-08 08:00] VITALS: O2SAT 92
[2023-08-08] MEDS: GABAPENTIN 100 MG CAPSULE PO ×3 (08:27→17:23)
[2023-08-08] MEDS: POTASSIUM CHLORIDE 20 MEQ PACKET (FOR LIQUID) PO ×2 (08:27→17:24)
[2023-08-08] MEDS: guaiFENesin 12 HR 600 MG TABCR 1200 MG PO ×2 (08:27→19:54)
[2023-08-08] MEDS: methADONE HCL (*CRX) 5 MG TABLET PO ×2 (08:27→17:23)
[2023-08-08] MEDS: buPROPion HCL XL (24 HR) 150 MG TABCR 300 MG PO (08:27)
[2023-08-08] MEDS: PANTOPRAZOLE SODIUM IV 40 MG VIAL IV PUSH ×2 (08:27→19:54)
[2023-08-08] MEDS: FUROSEMIDE INJ 40 MG/4 ML VIAL 20 MG IV PUSH ×2 (08:27→17:23)
[2023-08-08] MEDS: ARIPiprazole 2 MG TABLET 4 MG PO (08:27)
[2023-08-08] MEDS: ASCORBIC ACID 500 MG TABLET PO ×2 (08:28→17:23)
[2023-08-08] MEDS: MULTIVITAMINS /C LUTEIN (CENTRUM SILVER) TABLET *BKC 1 TAB PO (08:28)
[2023-08-08 09:04] VITALS: O2SAT 92
--- NOTE | 2023-08-08 11:41 | PCPTNOTE ---
Attempted to see for physical therapy evaluation, pt refused at this time. Will continue to follow.
[2023-08-08 12:10] LABS: Glucose Point of Care 124 mg/dl (65-105)
--- NOTE | 2023-08-08 12:11 | PM.PNPUL ---
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 Diagnostic studies have shown a right upper lobe consolidation with some volume loss of the right upper lobe but without complete atelectasis of the right upper lobe. There is no clear-cut evidence of intrabronchial lesion causing atelectasis on chest CT. The patient has been treated with 3 antibiotics and aggressive pulmonary toilet. He had mild leukopenia, no left shift, and no symptoms such as cough sputum production fever that would suggest healthcare associated pneumonia. MRSA screening is negative. the patient has been on Flagyl for possible aspiration pneumonia. Respiratory status essentially unchanged over the last week. Patient has no evidence of cough chest congestion or sputum production. Video swallow study showed no evidence of aspiration. Last chest x-ray unchanged. Patient was taken off isolation for COVID. INR lower today Plan bronchoscopy tomorrow. Keep patient NPO. (2) History of lung cancer: Code(s): Z85.118 - Personal history of other malignant neoplasm of bronchus and lung Status: Acute (3) Right upper lobe pneumonia: Code(s): J18.9 - Pneumonia, unspecified organism Status: Acute (4) Obstructive sleep apnea: Code(s): G47.33 - Obstructive sleep apnea (adult) (pediatric) Status: Acute (5) Type 2 diabetes mellitus: Code(s): E11.9 - Type 2 diabetes mellitus without complications Status: Acute (6) Chronic obstructive pulmonary disease: Code(s): J44.9 - Chronic obstructive pulmonary disease, unspecified Status: Acute (7) COVID-19: Code(s): U07.1 - COVID-19 Status: Acute (8) CHF (congestive heart failure): Qualifiers: Heart failure chronicity: acute Heart failure type: unspecified Qualified Code(s): I50.9 - Heart failure, unspecified Code(s): I50.9 - Heart failure, unspecified Status: Acute (9) Atrial fibrillation: Qualifiers: Atrial fibrillation type: unspecified Qualified Code(s): I48.91 - Unspecified atrial fibrillation Code(s): I48.91 - Unspecified atrial fibrillation Status: Acute (10) Sacral decubitus ulcer: Code(s): L89.159 - Pressure ulcer of sacral region, unspecified stage Status: Acute (11) Non-small cell carcinoma of lung: Code(s): C34.90 - Malignant neoplasm of unspecified part of unspecified bronchus or lung Status: Acute Subjective Date/time seen: 08/08/23 12:11 Interval history: Patient has no new respiratory symptoms. Remains on supplemental oxygen via nasal cannula. Review of Systems Review of Systems: All systems reviewed & are unremarkable except as noted in HPI and below (HPI and below) Exam Narrative: GENERAL APPEARANCE: Well developed, well nourished, alert and cooperative, and appears to be in no acute distress while on oxygen via nasal cannula SKIN: Inspection of the skin reveals no rashes, ulcerations or petechiae. HEENT: Sclerae anicteric and conjunctivae pink and moist. Extraocular movements were intact and pupils were equal, round, dry oral mucosa. NECK: Supple. There was no thyroid enlargement, and no tenderness, or masses were felt. CHEST: Normal AP diameter and normal contour without any kyphoscoliosis. LUNGS: Clear breath sounds anteriorly no wheezing. CARDIAC: There was a regular rate and rhythm without any murmurs, gallops, rubs. ABDOMEN: Soft and nontender with normal bowel sounds. There was no organomegaly. LYMPH NODES: No lymphadenopathy was appreciated in the neck. EXTREMITIES: No cyanosis, clubb
[2023-08-08 13:18] VITALS: BP 96/69; PULSE 88; RESP 17; TEMP 36.7; O2SAT 100
--- NOTE | 2023-08-08 13:38 | PCOTNOTE ---
Attempted to see pt. for occupational therapy evaluation. Pt. refused to participate at this time. Pt. encouraged and educated on importance of participation. Nursing aware. Will Follow.
[2023-08-08] MEDS: oxyCODONE/ACETAMINOPHEN (*CRX) 5-325 MG TABLET 1 TABLET PO (16:01)
--- NOTE | 2023-08-08 16:01 | PM.IMPN ---
Progress Note: A&P Assessment and Plan (1) Fecal impaction: Code(s): K56.41 - Fecal impaction Status: Acute Assessment and Plan: Disimpacted under sedation by GI Continue bowel regimen Induced constipation Relistor given (2) Right upper lobe consolidation: Code(s): J18.1 - Lobar pneumonia, unspecified organism Status: Acute Assessment and Plan: Likely residual from prior lung CA Recent COVID+, now off precautions Plan for bronchoscopy in a.m. Completed course (3) History of lung cancer: Code(s): Z85.118 - Personal history of other malignant neoplasm of bronchus and lung Status: Acute Assessment and Plan: Bronch pending because of prolonged PT. Bronch planned for tomorrow once PT comes within normal limits (4) Type 2 diabetes mellitus: Code(s): E11.9 - Type 2 diabetes mellitus without complications Status: Acute Assessment and Plan: Control adequate 08/04 (5) Chronic obstructive pulmonary disease: Code(s): J44.9 - Chronic obstructive pulmonary disease, unspecified Status: Acute Assessment and Plan: Clinically stable on 1 L NC (6) Acute decompensated heart failure: Code(s): I50.9 - Heart failure, unspecified Status: Acute Assessment and Plan: Likely iatrogenic Clinically improved Plan Patient presented to ER for evaluation after he was found to have abnormal chest x-ray which was done for evaluation of fatigue decreased appetite sore throat nonproductive cough. He tested positive for COVID on admission. Chest CT showed right upper lobe consolidation which does not look like COVID pneumonia. He was started on broad-spectrum antibiotic with cefepime azithromycin and vancomycin as postobstructive pneumonia is a consideration given history of lung cancer. There was previously documented 2.5 x 1.4 cm nodule in the perihilar right upper lobe. However this may be due to mucous plugging or possible endobronchial lesion. He was started on CPT Pulmozyme Mucinex and coronary to mobilize secretions with no change in his right upper lobe consolidation. During the course of hospital stay he reported abdominal discomfort which led to CT abdomen pelvis which reveals dark oral colitis with constipation. He was started on bowel regimen. He also has sacral decubitus ulcer with osteomyelitis which is chronic and improving compared to what it used to be in the past. General surgery was consulted He had coffee-ground emesis on 07/28/2022 which is suspected to be due to ileus/gastroparesis related to his underlying constipation. He had NG in place which she accidentally removed. Replacement of NG was suggested and recommended however patient refused. Reglan was added for prokinetic effect. EBL he ultimately required disimpaction under sedation Subjective Date/time seen: 08/08/23 16:01 Interval history: Chart reviewed. No new symptoms. Some shortness of breath persist. Is planned for bronchoscopy in a.m. Review of Systems Review of Systems: All systems reviewed & are unremarkable except as noted in HPI and below (HPI and below) Exam Narrative: GENERAL APPEARANCE: On oxygen by nasal cannula not in acute distress SKIN: Inspection of the skin reveals no rashes, ulcerations or petechiae. HEENT: Sclerae anicteric and conjunctivae pink and moist. NECK: Supple. LUNGS: Bilateral coarse breath sounds no respiratory distress CARDIAC: There was a regular rate and rhythm without any murmurs, gallops, rubs. ABDOMEN: Soft and nontender with normal bowel sounds. There was no organomegaly. LYMPH NODES: No lymphadenopathy was appreciated in the neck. EXTREMITIES: No cyanosis, clubbing or edema. NEUROLOGIC: Alert and oriented x 3. Objective Data Vital Signs Vital Signs: Vital Signs - 24 hr 08/07/23 20:47 08/07/23 20:00 08/07/23 23:19 Temperature 97.5 F L Pulse Rate 86 86 80 Respiratory Rate 18 18 16 Blood Press
[2023-08-08] MEDS: TAMSULOSIN HCL 0.4 MG CAPSULE PO (19:54)
[2023-08-08] MEDS: rOPINIRole HCL 1 MG TABLET PO (19:55)
[2023-08-08] MEDS: MIRTAZAPINE 15 MG TABLET PO (19:55)
[2023-08-08 20:00] VITALS: PULSE 88; RESP 17; O2SAT 100
[2023-08-08 22:00] VITALS: BP 94/47; PULSE 83; RESP 18; TEMP 36.3; O2SAT 97
[2023-08-09] VITALS (14 sets, daily range): BP systolic 94–157; BP diastolic 65–99; PULSE 83–97; RESP 14–26; TEMP 36.2–36.6; O2SAT 95–100
[2023-08-09] MEDS: METOCLOPRAMIDE HCL INJ 10 MG/2 ML VIAL 5 MG IV PUSH ×3 (05:19→17:28)
[2023-08-09 07:01] LABS: Glucose Point of Care 85 mg/dl (65-105)
[2023-08-09 07:17] LABS: Basophils Absolute Auto 0.1 K/mm3 (0.0-0.1); Basophils Percent Auto 0.8 % (0.2-1.2); Eosinophils Absolute Auto 0.3 K/mm3 (0-0.3); Eosinophils Percent Auto 5.1 % (0-4.4); Hematocrit 34.7 % (42.0-52.0); Hemoglobin 10.9 g/dL (14.0-18.0); Immature Granulocyte Absolute 0.06 K/mm3 (0.00-0.031); Immature Granulocyte Percent A 0.9 % (0-0.5); Lymphocytes Absolute Auto 1.17 K/mm3 (0.9-3.2); Lymphocytes Percent Auto 18.2 % (18.3-44.2); Mean Corpuscular HGB Conc 31.4 g/dl (32-36); Mean Corpuscular Hemoglobin 28.5 pg (26-34); Mean Corpuscular Volume 90.6 fl (80-100); Mean Platelet Volume 9.9 fl (7.4-10.4); Monocytes Absolute Auto 0.7 K/mm3 (0.1-0.6); Monocytes Percent Auto 10.3 % (2.6-8.5); Neutrophils Absolute Auto 4.2 K/mm3 (1.3-6.7); Neutrophils Percent Auto 64.7 % (45.5-73.1); Platelet Count Result 213 k/mm3 (150-375); Red Blood Count 3.83 M/mm3 (4.6-6.20); Red Cell Distribution Width 15.7 % (11.5-14.5); White Blood Count 6.4 K/mm3 (4.5-10.0)
[2023-08-09 07:24] LABS: Alanine Aminotransferase 11 U/L (6-50); Albumin Level 2.9 g/dL (3.5-5.1); Alkaline Phosphatase 54 U/L (38-126); Anion Gap 1 mmol/L (8-16); Aspartate Amino Transferase 23 U/L (17-59); Bilirubin,Total 0.4 mg/dL (0.2-1.3); Blood Urea Nitrogen 13 mg/dL (9-20); Calcium 8.2 mg/dL (8.4-10.2); Carbon Dioxide 38 mmol/L (22-30); Chloride 96 mmol/L (98-107); Estimated CRCL calculation 63 ml/min; Estimated Glomerular Filt Rate > 60; Glucose 86 mg/dL (65-110); Magnesium 1.9 mg/dL (1.6-2.3); Potassium 3.7 mmol/L (3.4-5.0); Sodium 135 mmol/L (137-145)
[2023-08-09] MEDS: PANTOPRAZOLE SODIUM IV 40 MG VIAL IV PUSH ×2 (08:05→21:06)
--- NOTE | 2023-08-09 08:21 | PCOTNOTE ---
Attempted OT evaluation. Patient refusing any/all activity at this time despite education on the benefits of therapy. Will continue to attempt.
--- NOTE | 2023-08-09 08:48 | PC.NURSE ---
unable to give meds this am. pt takes med whole in applesauce, but he is npo for procedure. will hold meds until ok to give
[2023-08-09 09:08] LABS: INR 1.1; Prothrombin Time 15.1 Seconds (11.1-14.7)
[2023-08-09 11:26] LABS: Glucose Point of Care 102 mg/dl (65-105)
--- NOTE | 2023-08-09 12:45 | PCPTNOTE ---
Attempted PT evaluation, pt refused stating her was SOB. Pt was given multiple options of how to safely participate in skilled therapy, but pt continued to refuse. RN aware. Will follow.
[2023-08-09 13:34] LABS: Glucose Point of Care 95 mg/dl (65-105)
--- NOTE | 2023-08-09 13:48 | PM.IMPN ---
Progress Note: A&P Assessment and Plan (1) Fecal impaction: Code(s): K56.41 - Fecal impaction Status: Acute Assessment and Plan: Disimpacted under sedation by GI Continue bowel regimen Induced constipation Relistor given (2) Right upper lobe consolidation: Code(s): J18.1 - Lobar pneumonia, unspecified organism Status: Acute Assessment and Plan: Likely residual from prior lung CA Recent COVID+, now off precautions Plan bronchoscopy today Completed course of antibiotics (3) History of lung cancer: Code(s): Z85.118 - Personal history of other malignant neoplasm of bronchus and lung Status: Acute Assessment and Plan: Bronch pending because of prolonged PT. Bronch planned for today. (4) Type 2 diabetes mellitus: Code(s): E11.9 - Type 2 diabetes mellitus without complications Status: Acute Assessment and Plan: Control adequate 08/04 (5) Chronic obstructive pulmonary disease: Code(s): J44.9 - Chronic obstructive pulmonary disease, unspecified Status: Acute Assessment and Plan: Clinically stable on 1 L NC and has been tapered down to room air (6) Acute decompensated heart failure: Code(s): I50.9 - Heart failure, unspecified Status: Acute Assessment and Plan: Likely iatrogenic Clinically improved Plan Patient presented to ER for evaluation after he was found to have abnormal chest x-ray which was done for evaluation of fatigue decreased appetite sore throat nonproductive cough. He tested positive for COVID on admission. Chest CT showed right upper lobe consolidation which does not look like COVID pneumonia. He was started on broad-spectrum antibiotic with cefepime azithromycin and vancomycin as postobstructive pneumonia is a consideration given history of lung cancer. There was previously documented 2.5 x 1.4 cm nodule in the perihilar right upper lobe. However this may be due to mucous plugging or possible endobronchial lesion. He was started on CPT Pulmozyme Mucinex and coronary to mobilize secretions with no change in his right upper lobe consolidation. During the course of hospital stay he reported abdominal discomfort which led to CT abdomen pelvis which reveals dark oral colitis with constipation. He was started on bowel regimen. He also has sacral decubitus ulcer with osteomyelitis which is chronic and improving compared to what it used to be in the past. General surgery was consulted He had coffee-ground emesis on 07/28/2022 which is suspected to be due to ileus/gastroparesis related to his underlying constipation. He had NG in place which she accidentally removed. Replacement of NG was suggested and recommended however patient refused. Reglan was added for prokinetic effect. He he ultimately required disimpaction under sedation Subjective Date/time seen: 08/09/23 13:48 Interval history: No overnight events. He is planned for a bronchoscopy this afternoon. He states he is hungry as he has not been allowed to eat for this bronchoscopy. Discussed plan with him Review of Systems Review of Systems: All systems reviewed & are unremarkable except as noted in HPI and below (HPI and below) Exam Narrative: GENERAL APPEARANCE: Not in acute distress SKIN: Inspection of the skin reveals no rashes, ulcerations or petechiae. HEENT: Sclerae anicteric and conjunctivae pink and moist. NECK: Supple. LUNGS: Bilateral coarse breath sounds no respiratory distress CARDIAC: There was a regular rate and rhythm without any murmurs, gallops, rubs. ABDOMEN: Soft and nontender with normal bowel sounds. There was no organomegaly. LYMPH NODES: No lymphadenopathy was appreciated in the neck. EXTREMITIES: No cyanosis, clubbing or edema. NEUROLOGIC: Alert and oriented x 3. Objective Data Vital Signs Vital Signs: Vital Signs - 24 hr 08/08/23 20:00 08/08/23 22:00 08/09/23 04:45 Temperature 97.4 F L 97.7 F
[2023-08-09] MEDS: LACTATED RINGERS 1,000 ML 150 ML IV CONT (14:16)
[2023-08-09] MEDS: LIDOCAINE HCL 2% LOCAL INJ 20 ML VIAL INFILTRATE (14:40)
[2023-08-09] MEDS: ASCORBIC ACID 500 MG TABLET PO (17:28)
[2023-08-09] MEDS: POTASSIUM CHLORIDE 20 MEQ PACKET (FOR LIQUID) PO (17:28)
[2023-08-09] MEDS: methADONE HCL (*CRX) 5 MG TABLET PO (17:28)
[2023-08-09] MEDS: SUCRALFATE 1 GM TABLET PO (17:28)
[2023-08-09] MEDS: GABAPENTIN 100 MG CAPSULE PO (17:28)
[2023-08-09] MEDS: ALBUTEROL SULFATE (*SP) AEROSOL 1 PUFF INHALATION (18:19)
[2023-08-09] MEDS: oxyCODONE HCL (*CRX) 2.5 MG TAB IR PO (18:22)
[2023-08-09] MEDS: oxyCODONE/ACETAMINOPHEN (*CRX) 5-325 MG TABLET 1 TABLET PO (18:24)
[2023-08-09] MEDS: ACETAMINOPHEN 325 MG TABLET 650 MG PO (21:06)
[2023-08-09] MEDS: rOPINIRole HCL 1 MG TABLET PO (21:07)
[2023-08-09] MEDS: TAMSULOSIN HCL 0.4 MG CAPSULE PO (21:07)
[2023-08-09] MEDS: MIRTAZAPINE 15 MG TABLET PO (21:07)
[2023-08-09 23:58] LABS: Glucose Point of Care 113 mg/dl (65-105)
[2023-08-10] MEDS: MELATONIN 5 MG TABLET PO ×2 (00:02→20:08)
[2023-08-10] MEDS: METOCLOPRAMIDE HCL INJ 10 MG/2 ML VIAL 5 MG IV PUSH ×4 (00:03→16:31)
[2023-08-10] MEDS: oxyCODONE HCL (*CRX) 2.5 MG TAB IR PO ×4 (00:08→20:07)
[2023-08-10] MEDS: oxyCODONE/ACETAMINOPHEN (*CRX) 5-325 MG TABLET 1 TABLET PO ×4 (00:08→20:08)
[2023-08-10] MEDS: LEVOTHYROXINE SODIUM 25 MCG TABLET PO (05:46)
[2023-08-10] MEDS: SUCRALFATE 1 GM TABLET PO ×3 (05:46→16:32)
[2023-08-10 05:47] LABS: Glucose Point of Care 84 mg/dl (65-105)
[2023-08-10 05:51] LABS: Basophils Absolute Auto 0.1 K/mm3 (0.0-0.1); Eosinophils Absolute Auto 0.3 K/mm3 (0-0.3); Eosinophils Percent Auto 5.3 % (0-4.4); Hematocrit 33.9 % (42.0-52.0); Hemoglobin 10.8 g/dL (14.0-18.0); Immature Granulocyte Absolute 0.04 K/mm3 (0.00-0.031); Immature Granulocyte Percent A 0.7 % (0-0.5); Lymphocytes Absolute Auto 1.37 K/mm3 (0.9-3.2); Lymphocytes Percent Auto 22.7 % (18.3-44.2); Mean Corpuscular HGB Conc 31.9 g/dl (32-36); Mean Corpuscular Hemoglobin 28.8 pg (26-34); Mean Corpuscular Volume 90.4 fl (80-100); Mean Platelet Volume 9.9 fl (7.4-10.4); Monocytes Absolute Auto 0.6 K/mm3 (0.1-0.6); Monocytes Percent Auto 10.3 % (2.6-8.5); Neutrophils Absolute Auto 3.6 K/mm3 (1.3-6.7); Platelet Count Result 224 k/mm3 (150-375); Red Blood Count 3.75 M/mm3 (4.6-6.20)
[2023-08-10] MEDS: SODIUM CHLOR 3% 15 ML NEB (RESPIRATORY THERAPY) 6 ML INHALATION (05:53)
[2023-08-10 05:54] VITALS: PULSE 95; RESP 18
[2023-08-10 06:01] VITALS: BP 96/53; PULSE 76; RESP 18; TEMP 35.5; O2SAT 100
[2023-08-10 06:03] LABS: Anion Gap 3 mmol/L (8-16); Blood Urea Nitrogen 17 mg/dL (9-20); Calcium 8.4 mg/dL (8.4-10.2); Carbon Dioxide 34 mmol/L (22-30); Chloride 98 mmol/L (98-107); Estimated CRCL calculation 63 ml/min; Estimated Glomerular Filt Rate > 60; Glucose 83 mg/dL (65-110); Magnesium 1.9 mg/dL (1.6-2.3); Potassium 3.7 mmol/L (3.4-5.0); Sodium 135 mmol/L (137-145)
[2023-08-10] MEDS: buPROPion HCL XL (24 HR) 150 MG TABCR 300 MG PO (08:34)
[2023-08-10] MEDS: POTASSIUM CHLORIDE 20 MEQ PACKET (FOR LIQUID) PO ×2 (08:34→16:31)
[2023-08-10] MEDS: ASCORBIC ACID 500 MG TABLET PO ×2 (08:35→16:31)
[2023-08-10] MEDS: MULTIVITAMINS /C LUTEIN (CENTRUM SILVER) TABLET *BKC 1 TAB PO (08:35)
[2023-08-10] MEDS: methADONE HCL (*CRX) 5 MG TABLET PO ×2 (08:35→16:31)
[2023-08-10] MEDS: GABAPENTIN 100 MG CAPSULE PO ×3 (08:35→16:31)
[2023-08-10] MEDS: PANTOPRAZOLE SODIUM IV 40 MG VIAL IV PUSH ×2 (08:36→21:08)
[2023-08-10] MEDS: ARIPiprazole 2 MG TABLET 4 MG PO (08:43)
[2023-08-10 12:02] LABS: Glucose Point of Care 100 mg/dl (65-105)
--- NOTE | 2023-08-10 13:00 | PM.IMPN ---
Progress Note: A&P Assessment and Plan (1) Fecal impaction: Code(s): K56.41 - Fecal impaction Status: Acute Assessment and Plan: Disimpacted under sedation by GI Continue bowel regimen Induced constipation Relistor given (2) Right upper lobe consolidation: Code(s): J18.1 - Lobar pneumonia, unspecified organism Status: Acute Assessment and Plan: Likely residual from prior lung CA Recent COVID+, now off precautions Completed course of antibiotics Status post bronchoscopy 08/09/2023 Findings of right middle lobe narrowing due to extrinsic compression. No evidence of intraluminal lesions the right middle lobe bronchus. Remaining bronchus of the right lung appeared patent with no evidence of intraluminal masses secretions or erythema. Left bronchial tree was patent with no evidence of mucosal erythema secretions or masses. BAL was obtained. (3) History of lung cancer: Code(s): Z85.118 - Personal history of other malignant neoplasm of bronchus and lung Status: Acute Assessment and Plan: Bronch pending because of prolonged PT. Bronch performed see above (4) Type 2 diabetes mellitus: Code(s): E11.9 - Type 2 diabetes mellitus without complications Status: Acute Assessment and Plan: Control adequate 08/04 (5) Chronic obstructive pulmonary disease: Code(s): J44.9 - Chronic obstructive pulmonary disease, unspecified Status: Acute Assessment and Plan: Clinically stable on 1 L NC and has been tapered down to room air (6) Acute decompensated heart failure: Code(s): I50.9 - Heart failure, unspecified Status: Acute Assessment and Plan: Likely iatrogenic Clinically improved Plan Patient presented to ER for evaluation after he was found to have abnormal chest x-ray which was done for evaluation of fatigue decreased appetite sore throat nonproductive cough. He tested positive for COVID on admission. Chest CT showed right upper lobe consolidation which does not look like COVID pneumonia. He was started on broad-spectrum antibiotic with cefepime azithromycin and vancomycin as postobstructive pneumonia is a consideration given history of lung cancer. There was previously documented 2.5 x 1.4 cm nodule in the perihilar right upper lobe. However this may be due to mucous plugging or possible endobronchial lesion. He was started on CPT Pulmozyme Mucinex and coronary to mobilize secretions with no change in his right upper lobe consolidation. During the course of hospital stay he reported abdominal discomfort which led to CT abdomen pelvis which reveals dark oral colitis with constipation. He was started on bowel regimen. He also has sacral decubitus ulcer with osteomyelitis which is chronic and improving compared to what it used to be in the past. General surgery was consulted He had coffee-ground emesis on 07/28/2022 which is suspected to be due to ileus/gastroparesis related to his underlying constipation. He had NG in place which she accidentally removed. Replacement of NG was suggested and recommended however patient refused. Reglan was added for prokinetic effect. He he ultimately required disimpaction under sedation Bronchoscopy performed 08/09/2023:Findings of right middle lobe narrowing due to extrinsic compression. No evidence of intraluminal lesions the right middle lobe bronchus. Remaining bronchus of the right lung appeared patent with no evidence of intraluminal masses secretions or erythema. Left bronchial tree was patent with no evidence of mucosal erythema secretions or masses. BAL was obtained. Subjective Date/time seen: 08/10/23 13:00 Interval history: No new complaints. Underwent bronchoscopy yesterday. Findings of right middle lobe narrowing due to extrinsic compression. No evidence of intraluminal lesions the right middle lobe bronchus. Remaining bronchus of the right lung appeared patent with no evidence of
--- NOTE | 2023-08-10 13:56 | P.PNAN_ITS ---
Anes - Prog Note Post-Op Date/Time: 08/10/23 13:56 Cardiovascular status: normal Respiratory status: normal Airway patency: baseline Mental status: baseline Post-Op hydration status: normal Vital Signs: Last Vital Signs Temp 96 F L 08/10/23 06:01 Pulse 76 08/10/23 06:01 Resp 18 08/10/23 06:01 BP 96/53 L 08/10/23 06:01 Pulse Ox 100 08/10/23 06:01 O2 Del Method Nasal Cannula 08/10/23 08:30 O2 Flow Rate 2 08/10/23 08:30 FiO2 24 08/08/23 20:00 Pain Score (VAS): 0 I/O: Intake & Output 08/09/23 08/10/23 08/10/23 23:59 07:59 15:59 Intake Total 520 100 240 Output Total 300 Balance 220 100 240 Laboratory Tests 08/10/23 05:11 08/10/23 05:11 08/09/23 08/10/23 08/10/23 23:53 05:11 05:44 WBC 6.0 RBC 3.75 L Hgb 10.8 L Hct 33.9 L MCV 90.4 MCH 28.8 MCHC 31.9 L RDW 16.0 H Plt Count 224 MPV 9.9 Immature Gran % (Auto) 0.7 H Neut % (Auto) 60.0 Lymph % (Auto) 22.7 [place] % (Auto) 10.3 H Eos % (Auto) 5.3 H Baso % (Auto) 1.0 Lymph # (Auto) 1.37 [place] # (Auto) 0.6 Eos # (Auto) 0.3 Baso # (Auto) 0.1 Abs Immat Gran (auto) 0.04 H Absolute Neuts (auto) 3.6 Absolute Nucleated RBC 0.0 Nucleated RBC % 0.0 Sodium 135 L Potassium 3.7 Chloride 98 Carbon Dioxide 34 H Anion Gap 3 L BUN 17 Creatinine 0.80 Estim Creat Clear Calc 63 Estimated GFR > 60 Glucose 83 POC Capillary Glucose 113 H 84 Calcium 8.4 Magnesium 1.9 08/10/23 11:59 WBC RBC Hgb Hct MCV MCH MCHC RDW Plt Count MPV Immature Gran % (Auto) Neut % (Auto) Lymph % (Auto) [place] % (Auto) Eos % (Auto) Baso % (Auto) Lymph # (Auto) [place] # (Auto) Eos # (Auto) Baso # (Auto) Abs Immat Gran (auto) Absolute Neuts (auto) Absolute Nucleated RBC Nucleated RBC % Sodium Potassium Chloride Carbon Dioxide Anion Gap BUN Creatinine Estim Creat Clear Calc Estimated GFR Glucose POC Capillary Glucose 100 Calcium Magnesium Microbiology 08/09/23 15:07 Bronchial Washings Carinal Respiratory Culture - Preliminary 08/09/23 15:07 Bronchial Alveo Lavage Right Upper Lobe Respiratory Culture - Preliminary Post-procedural complaints: none Patient Feedback: Patient satisfied with anesthetic care.
[2023-08-10 16:00] VITALS: BP 95/56; PULSE 84; RESP 20; TEMP 36.9; O2SAT 99
[2023-08-10] MEDS: guaiFENesin 12 HR 600 MG TABCR 1200 MG PO (20:07)
[2023-08-10] MEDS: rOPINIRole HCL 1 MG TABLET PO (20:08)
[2023-08-10] MEDS: APIXABAN 5 MG TABLET PO (20:08)
[2023-08-10] MEDS: TAMSULOSIN HCL 0.4 MG CAPSULE PO (20:08)
[2023-08-10] MEDS: MIRTAZAPINE 15 MG TABLET PO (20:08)
[2023-08-10 21:31] VITALS: BP 97/57; PULSE 77; RESP 16; TEMP 36.1; O2SAT 98
[2023-08-11 00:26] LABS: Glucose Point of Care 116 mg/dl (65-105)
[2023-08-11] MEDS: METOCLOPRAMIDE HCL INJ 10 MG/2 ML VIAL 5 MG IV PUSH ×4 (00:28→16:15)
[2023-08-11] MEDS: SODIUM CHLOR 3% 15 ML NEB (RESPIRATORY THERAPY) 6 ML INHALATION (05:01)
[2023-08-11 05:06] VITALS: PULSE 71; RESP 18
[2023-08-11] MEDS: LEVOTHYROXINE SODIUM 25 MCG TABLET PO (05:34)
[2023-08-11] MEDS: SUCRALFATE 1 GM TABLET PO ×3 (05:34→16:15)
[2023-08-11] MEDS: oxyCODONE HCL (*CRX) 2.5 MG TAB IR PO ×2 (05:43→12:19)
[2023-08-11] MEDS: oxyCODONE/ACETAMINOPHEN (*CRX) 5-325 MG TABLET 1 TABLET PO ×3 (05:44→21:43)
[2023-08-11 06:34] LABS: Glucose Point of Care 101 mg/dl (65-105)
[2023-08-11 06:37] LABS: Basophils Absolute Auto 0.1 K/mm3 (0.0-0.1); Basophils Percent Auto 0.8 % (0.2-1.2); Eosinophils Absolute Auto 0.4 K/mm3 (0-0.3); Eosinophils Percent Auto 5.9 % (0-4.4); Hematocrit 32.8 % (42.0-52.0); Hemoglobin 10.2 g/dL (14.0-18.0); Immature Granulocyte Absolute 0.05 K/mm3 (0.00-0.031); Immature Granulocyte Percent A 0.8 % (0-0.5); Lymphocytes Absolute Auto 1.09 K/mm3 (0.9-3.2); Lymphocytes Percent Auto 17.4 % (18.3-44.2); Mean Corpuscular HGB Conc 31.1 g/dl (32-36); Mean Corpuscular Hemoglobin 28.8 pg (26-34); Mean Corpuscular Volume 92.7 fl (80-100); Mean Platelet Volume 9.9 fl (7.4-10.4); Monocytes Absolute Auto 0.6 K/mm3 (0.1-0.6); Monocytes Percent Auto 9.9 % (2.6-8.5); Neutrophils Absolute Auto 4.1 K/mm3 (1.3-6.7); Neutrophils Percent Auto 65.2 % (45.5-73.1); Platelet Count Result 186 k/mm3 (150-375); Red Blood Count 3.54 M/mm3 (4.6-6.20); Red Cell Distribution Width 16.3 % (11.5-14.5); White Blood Count 6.3 K/mm3 (4.5-10.0)
[2023-08-11 06:46] VITALS: BP 91/45; PULSE 70; RESP 20; TEMP 36.3; O2SAT 100
[2023-08-11 06:47] LABS: Alanine Aminotransferase 11 U/L (6-50); Albumin Level 2.7 g/dL (3.5-5.1); Alkaline Phosphatase 52 U/L (38-126); Anion Gap 0 mmol/L (8-16); Aspartate Amino Transferase 21 U/L (17-59); Bilirubin,Total 0.4 mg/dL (0.2-1.3); Blood Urea Nitrogen 15 mg/dL (9-20); Calcium 8.1 mg/dL (8.4-10.2); Carbon Dioxide 38 mmol/L (22-30); Chloride 97 mmol/L (98-107); Estimated CRCL calculation 57 ml/min; Estimated Glomerular Filt Rate > 60; Glucose 85 mg/dL (65-110); Magnesium 1.9 mg/dL (1.6-2.3); Potassium 3.6 mmol/L (3.4-5.0); Sodium 135 mmol/L (137-145)
[2023-08-11 08:00] VITALS: PULSE 70; RESP 20; O2SAT 100
[2023-08-11] MEDS: ASCORBIC ACID 500 MG TABLET PO ×2 (09:13→16:15)
[2023-08-11] MEDS: POTASSIUM CHLORIDE 20 MEQ PACKET (FOR LIQUID) PO ×2 (09:14→16:15)
[2023-08-11] MEDS: buPROPion HCL XL (24 HR) 150 MG TABCR 300 MG PO (09:14)
[2023-08-11] MEDS: polyethylene glycoL 3350 17 GM POWD.PACK PO (09:14)
[2023-08-11] MEDS: GABAPENTIN 100 MG CAPSULE PO ×3 (09:14→16:15)
[2023-08-11] MEDS: methADONE HCL (*CRX) 5 MG TABLET PO ×2 (09:14→16:15)
[2023-08-11] MEDS: guaiFENesin 12 HR 600 MG TABCR 1200 MG PO ×2 (09:14→20:24)
[2023-08-11] MEDS: MULTIVITAMINS /C LUTEIN (CENTRUM SILVER) TABLET *BKC 1 TAB PO (09:14)
[2023-08-11] MEDS: ARIPiprazole 2 MG TABLET 4 MG PO (09:14)
[2023-08-11] MEDS: BISACODYL 10 MG SUPPOSITORY RECTAL (09:15)
[2023-08-11] MEDS: APIXABAN 5 MG TABLET PO ×2 (09:15→20:24)
[2023-08-11] MEDS: BISACODYL 5 MG TABLET EC 10 MG PO ×2 (09:15→16:15)
[2023-08-11] MEDS: ASPIRIN 81 MG ENTERIC TABLET PO (09:15)
[2023-08-11] MEDS: LACTULOSE 20 GM/30 ML UDC PO ×3 (09:15→16:14)
[2023-08-11] MEDS: PANTOPRAZOLE SODIUM IV 40 MG VIAL IV PUSH ×2 (09:15→21:41)
--- NOTE | 2023-08-11 11:55 | PM.IMPN ---
Progress Note: A&P Assessment and Plan (1) Fecal impaction: Code(s): K56.41 - Fecal impaction Status: Acute Assessment and Plan: Disimpacted under sedation by GI Continue bowel regimen Induced constipation Relistor given (2) Right upper lobe consolidation: Code(s): J18.1 - Lobar pneumonia, unspecified organism Status: Acute Assessment and Plan: Likely residual from prior lung CA Recent COVID+, now off precautions Completed course of antibiotics Status post bronchoscopy 08/09/2023 Findings of right middle lobe narrowing due to extrinsic compression. No evidence of intraluminal lesions the right middle lobe bronchus. Remaining bronchus of the right lung appeared patent with no evidence of intraluminal masses secretions or erythema. Left bronchial tree was patent with no evidence of mucosal erythema secretions or masses. BAL was obtained. (3) History of lung cancer: Code(s): Z85.118 - Personal history of other malignant neoplasm of bronchus and lung Status: Acute Assessment and Plan: Bronch pending because of prolonged PT. Bronch performed see above (4) Type 2 diabetes mellitus: Code(s): E11.9 - Type 2 diabetes mellitus without complications Status: Acute Assessment and Plan: Control adequate 08/04 (5) Chronic obstructive pulmonary disease: Code(s): J44.9 - Chronic obstructive pulmonary disease, unspecified Status: Acute Assessment and Plan: Clinically stable on 1 L NC and has been tapered down to room air (6) Acute decompensated heart failure: Code(s): I50.9 - Heart failure, unspecified Status: Acute Assessment and Plan: Likely iatrogenic Clinically improved Plan Patient presented to ER for evaluation after he was found to have abnormal chest x-ray which was done for evaluation of fatigue decreased appetite sore throat nonproductive cough. He tested positive for COVID on admission. Chest CT showed right upper lobe consolidation which does not look like COVID pneumonia. He was started on broad-spectrum antibiotic with cefepime azithromycin and vancomycin as postobstructive pneumonia is a consideration given history of lung cancer. There was previously documented 2.5 x 1.4 cm nodule in the perihilar right upper lobe. However this may be due to mucous plugging or possible endobronchial lesion. He was started on CPT Pulmozyme Mucinex and coronary to mobilize secretions with no change in his right upper lobe consolidation. During the course of hospital stay he reported abdominal discomfort which led to CT abdomen pelvis which reveals dark oral colitis with constipation. He was started on bowel regimen. He also has sacral decubitus ulcer with osteomyelitis which is chronic and improving compared to what it used to be in the past. General surgery was consulted He had coffee-ground emesis on 07/28/2022 which is suspected to be due to ileus/gastroparesis related to his underlying constipation. He had NG in place which she accidentally removed. Replacement of NG was suggested and recommended however patient refused. Reglan was added for prokinetic effect. He he ultimately required disimpaction under sedation Bronchoscopy performed 08/09/2023:Findings of right middle lobe narrowing due to extrinsic compression. No evidence of intraluminal lesions the right middle lobe bronchus. Remaining bronchus of the right lung appeared patent with no evidence of intraluminal masses secretions or erythema. Left bronchial tree was patent with no evidence of mucosal erythema secretions or masses. BAL was obtained. BAL showing Gram-positive cocci in pairs await identification. Remains stable will discharge back to nursing facility in 1-2 days Subjective Date/time seen: 08/11/23 11:55 Interval history: No new complaints. Underwent bronchoscopy yesterday. Findings of right middle lobe narrowing due to extrinsic compression. No evidenc
[2023-08-11 14:00] VITALS: BP 98/66; PULSE 78; RESP 16; TEMP 36.9; O2SAT 98
[2023-08-11] MEDS: rOPINIRole HCL 1 MG TABLET PO (20:24)
[2023-08-11] MEDS: MELATONIN 5 MG TABLET PO (20:24)
[2023-08-11] MEDS: TAMSULOSIN HCL 0.4 MG CAPSULE PO (20:24)
[2023-08-11] MEDS: MIRTAZAPINE 15 MG TABLET PO (20:24)
[2023-08-11 20:54] VITALS: BP 112/67; PULSE 82; RESP 18; TEMP 36.6; O2SAT 99
[2023-08-11 21:12] LABS: Glucose Point of Care 138 mg/dl (65-105)
[2023-08-12] MEDS: METOCLOPRAMIDE HCL INJ 10 MG/2 ML VIAL 5 MG IV PUSH ×4 (00:50→16:29)
[2023-08-12 04:47] VITALS: BP 101/49; PULSE 70; RESP 14; TEMP 36.2; O2SAT 99
[2023-08-12 05:43] LABS: Glucose Point of Care 114 mg/dl (65-105)
[2023-08-12] MEDS: LEVOTHYROXINE SODIUM 25 MCG TABLET PO (05:57)
[2023-08-12] MEDS: SUCRALFATE 1 GM TABLET PO ×3 (05:57→16:31)
[2023-08-12 07:51] VITALS: BP 101/60; PULSE 77; RESP 14; TEMP 36.6; O2SAT 100
[2023-08-12 08:00] VITALS: PULSE 77; RESP 14; O2SAT 100
[2023-08-12] MEDS: POTASSIUM CHLORIDE 20 MEQ PACKET (FOR LIQUID) PO ×2 (08:56→16:29)
[2023-08-12] MEDS: BISACODYL 5 MG TABLET EC 10 MG PO ×2 (08:56→16:29)
[2023-08-12] MEDS: methADONE HCL (*CRX) 5 MG TABLET PO ×2 (08:56→16:30)
[2023-08-12] MEDS: polyethylene glycoL 3350 17 GM POWD.PACK PO (08:56)
[2023-08-12] MEDS: buPROPion HCL XL (24 HR) 150 MG TABCR 300 MG PO (08:56)
[2023-08-12] MEDS: ASPIRIN 81 MG ENTERIC TABLET PO (08:56)
[2023-08-12] MEDS: MULTIVITAMINS /C LUTEIN (CENTRUM SILVER) TABLET *BKC 1 TAB PO (08:56)
[2023-08-12] MEDS: ASCORBIC ACID 500 MG TABLET PO ×2 (08:57→16:31)
[2023-08-12] MEDS: APIXABAN 5 MG TABLET PO (08:57)
[2023-08-12] MEDS: GABAPENTIN 100 MG CAPSULE PO ×3 (08:57→17:59)
[2023-08-12] MEDS: guaiFENesin 12 HR 600 MG TABCR 1200 MG PO (08:57)
[2023-08-12] MEDS: ARIPiprazole 2 MG TABLET 4 MG PO (08:57)
[2023-08-12] MEDS: PANTOPRAZOLE SODIUM IV 40 MG VIAL IV PUSH (08:58)
[2023-08-12] MEDS: oxyCODONE/ACETAMINOPHEN (*CRX) 5-325 MG TABLET 1 TABLET PO ×2 (10:30→16:30)
[2023-08-12] MEDS: oxyCODONE HCL (*CRX) 2.5 MG TAB IR PO ×2 (10:30→16:30)
--- NOTE | 2023-08-12 11:23 | PM.PNPUL ---
Progress Note: A&P Assessment and Plan (1) Right upper lobe consolidation: Code(s): J18.1 - Lobar pneumonia, unspecified organism Status: Acute Assessment and Plan: This 77-year-old man with history of right upper lobe cancer status post radiation chemotherapy, with residual small tumor seen on last chest CT in March of 2023, presented with non specific complaints such as fatigue mild cough.? Diagnostic studies have shown a right upper lobe consolidation with some volume loss of the right upper lobe but without complete atelectasis of the right upper lobe.? There is no clear-cut evidence of intrabronchial lesion causing atelectasis on chest CT.? The patient has been treated with 3 antibiotics and aggressive pulmonary toilet.? He had mild leukopenia, no left shift, and no symptoms such as cough sputum production fever that would suggest healthcare associated pneumonia.? MRSA screening is negative.? ? the patient has been on Flagyl for possible aspiration pneumonia.? Respiratory status essentially unchanged over the last week.? Patient has no evidence of cough chest congestion or sputum production.? Video swallow study showed no evidence of aspiration.? Last chest x-ray unchanged.? Patient was taken off isolation for COVID.? INR lower today 08/08/23: Plan bronchoscopy tomorrow.? Keep patient NPO. 08/09/2023: Bronchoscopy demonstrated no endobronchial lesions in the right upper lobe and all segments were patent and open. Pathology on BAL, bronchial brushings and the brush tip are pending. 08/12/23: Patient tells me he is weak. He denies any shortness of breath. When I enter the room the patient was on 2 L nasal cannula saturations 100%. I switched him to room air and after 10 minutes is saturations were 96%. White blood cell count yesterday was 6.3. Chest x-ray today shows unchanged right upper lobe collapse. I reviewed the CT scan with the radiologist and it is unlikely that the previously seen right upper lobe nodule on 03/23/2023 with a negative bronchoscopy would account for the extent of the right upper lobe collapse. CT PET would be of no utility currently. Recurrent right upper lobe cancer cannot be excluded by the current CT scan and/or bronchoscopy as the cancer may be more distal than can be visualized with the bronchoscope. Etiology of the right upper lobe collapse includes recurrent cancer, mucus plugging, atelectasis, pneumonia, and radiation fibrosis. I explained this to the patient and told him he will need follow-up to see how he is behaving clinically as well as repeat imaging in the future. Plan: From a pulmonary perspective patient is ready to be discharged on these pulmonary medications DuoNebs 2.5 mg albuterol and 0.5 mg ipratropium q.i.d.. Guaifenesin 1200 mg p.o. q.12 hours Oxygen at rest, with activity and at night per [facility] Discussed with Dr. Weaver, will sign off, call with questions. 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 (3) Obstructive sleep apnea: Code(s): G47.33 - Obstructive sleep apnea (adult) (pediatric) Status: Acute Assessment and Plan: This split night study Aug 18, 2020 shows?moderate obstructive sleep apnea with an AHI of 25.4?during the?baseline,?extremely severe in non-supine REM?with an index of?50.1,?sustained hypoxemia?with?89.2% of the?baseline spent below 88%. He had loud snoring.? During the titration, he was not able to tolerate CPAP, and was switched to BiPAP ? Using a large [employer]Med Mobjoy Air it F10 20 full face mask with a final pressure of 16/12 with impr
[2023-08-12 11:25] LABS: Glucose Point of Care 152 mg/dl (65-105)
--- NOTE | 2023-08-12 11:40 | PCOTNOTE ---
Attempted to see Patient this A.M. Patient refused to participate in services at this time. Patient stated, I'm resting, try back later .
--- NOTE | 2023-08-12 11:43 | PCNFU ---
Nutrition Follow-Up Complete: Increased protein energy needs related to wound healing as evidenced by stage 3 pressure injury to coccyx Goal:Adequate PO intake at least 75% meals and supplements to support wound healing Maintain weight Pt is currently meeting goal. Continue with same goal. Pt current nutrition is Minced and moist, level 5. Ensure compact BID, RA BID. Nutrition recommendation: continue with current plan of care Last recorded weight is 73.3 kg - stable. Bowel Motility: +BM 08/08 Labs Reviewed: Hgb:10.2, HCT:32.8, Alb:2.7, NA:135, Glu:138 Meds Noted: remeron, zofran, reglan, protonix, lactulose, novolog Skin: Stage 3 to coccyx Additional Notes: Pt continues on a level 5 minced and moist diet with supplements in place for wound healing. Intake is finally to goal at 50-100% of meals. Pt reports he is hungry and eating better. Continue to encourage po intake. Monitoring intakes, weights, labs, supplement tolerance, wound healing, plan of care Follow up in 7 days
[2023-08-12] MEDS: LACTULOSE 20 GM/30 ML UDC PO ×2 (12:37→16:31)
--- NOTE | 2023-08-12 14:56 | PM.DS ---
DS: Admitting Diagnosis Discharge Date 08/12/2023 Admitting Diagnosis Shortness of breath DS: Discharge Diagnosis Discharge Diagnosis (1) Fecal impaction: Code(s): K56.41 - Fecal impaction Status: Acute (2) Right upper lobe consolidation: Code(s): J18.1 - Lobar pneumonia, unspecified organism Status: Acute (3) History of lung cancer: Code(s): Z85.118 - Personal history of other malignant neoplasm of bronchus and lung Status: Acute (4) Type 2 diabetes mellitus: Code(s): E11.9 - Type 2 diabetes mellitus without complications Status: Acute (5) Chronic obstructive pulmonary disease: Code(s): J44.9 - Chronic obstructive pulmonary disease, unspecified Status: Acute (6) Acute decompensated heart failure: Code(s): I50.9 - Heart failure, unspecified Status: Acute DS: Summary Hospital Course Hospital Course: Patient presented to ER for evaluation after he was found to have abnormal chest x-ray which was done for evaluation of fatigue decreased appetite sore throat nonproductive cough.? He tested positive for COVID on admission.? Chest CT showed right upper lobe consolidation which does not look like COVID pneumonia.? He was started on broad-spectrum antibiotic with cefepime azithromycin and vancomycin as postobstructive pneumonia is a consideration given history of lung cancer.? There was previously documented 2.5 x 1.4 cm nodule in the perihilar right upper lobe.? However this may be due to mucous plugging or possible endobronchial lesion.? He was started on CPT Pulmozyme Mucinex and coronary to mobilize secretions with no change in his right upper lobe consolidation. During the course of hospital stay he reported abdominal discomfort which led to CT abdomen pelvis which reveals sterocoral colitis with constipation.? He was started on bowel regimen.? He also has sacral decubitus ulcer with osteomyelitis which is chronic and improving compared to what it used to be in the past.? General surgery was consulted and continued on dressing changes as this looks it is much improved than in the past. He also had coffee-ground emesis on 07/28/2022 which is suspected to be due to ileus/gastroparesis related to his underlying constipation.? He had NG in place which she accidentally removed.? Replacement of NG was suggested and recommended however patient refused.? Reglan was added for prokinetic effect.? He he ultimately required disimpaction under sedation. Continued on bowel regimen as previously ordered. For is right upper lobe collapse eventually he had bronchoscopy performed 08/09/2023:Findings of right middle lobe narrowing due to extrinsic compression.? No evidence of intraluminal lesions the right middle lobe bronchus.? Remaining bronchus of the right lung appeared patent with no evidence of intraluminal masses secretions or erythema.? Left bronchial tree was patent with no evidence of mucosal erythema secretions or masses.? BAL was obtained.? BAL remains negative. Pulmonary recommended continuing on breathing treatment and Mucinex and follow-up as an outpatient basis. He remains on low oxygen to maintain his saturation which will be continued at discharge Time Spent with Patient Time attestation: Total time spent providing and/or coordinating discharge services: 45 Exam Narrative: GENERAL APPEARANCE: Not in acute distress SKIN: Inspection of the skin reveals no rashes, ulcerations or petechiae. HEENT: Sclerae anicteric and conjunctivae pink and moist. NECK: Supple. LUNGS: Bilateral coarse breath sounds no respiratory distress CARDIAC: There was a regular rate and rhythm without any murmurs, gallops, rubs. ABDOMEN: Soft and nontender with normal bowel sounds. There was no organomegaly. LYMPH NODES: No lymphadenopathy was appreciated in the neck. EXTREMITIES: No cyanosis, clubbing or edema. NEUROLOGIC: Alert and oriented x 3. DS: Data Data Completed and Pending Pen
[2023-08-12 16:00] VITALS: BP 112/65; PULSE 88; RESP 15; TEMP 37.1; O2SAT 95
[2023-08-12 17:24] LABS: SARS-CoV-2 RNA PCR Negative (Negative)
--- NOTE | 2023-09-06 12:06 | PM.OP ---
Procedure Note - Brief Procedure Note - Brief Date of procedure: 09/06/23 Fecal impaction Post-op diagnosis: Same Procedure performed: removal of impaction under anesthesia Surgeon: Sean Ga MD Description of procedure: with the patient under monitored anesthesia care, rectal examination revealed firm large fecal impaction. Using 2 fingers I removed the impaction with repeated attempt until no more stool was reachable. He tolerated the procedure well. Urine output (mL): 450
== END 2023-08-12 19:20 | DRG 177 ==
LOC: ANHED 19:44 → ANH3MEDSUR 20:36 → ANHIMU 07-29 05:05 → ANH3MEDSUR 08-04 11:31
PROVIDERS: Emergency Medicine; General Practice; Internal Medicine; Internal Medicine Gastroenterology; Internal Medicine Hematology & Oncology; Internal Medicine Pulmonary Disease; Physician Assistant; Admitting Provider Hospitalist; Emergency Provider Preventive Medicine Aerospace Medicine; PCP Family Medicine; Visit Provider Internal Medicine
PROC: 0DCP7ZZ Extirpation of Matter from Rectum, Via Natural or Artificial Opening (ICD-10-PCS; principal; 2023-08-02 16:00)
PROC: 0BJ08ZZ Inspection of Tracheobronchial Tree, Via Natural or Artificial Opening Endoscopic (ICD-10-PCS; CPT 31622; principal; 2023-08-09 13:30)
DX: U07.1 COVID-19 (principal); I50.33 Acute on chronic diastolic (congestive) heart failure; J18.1 Lobar pneumonia, unspecified organism; J96.00 Acute respiratory failure, unspecified whether with hypoxia or hypercapnia; J69.0 Pneumonitis due to inhalation of food and vomit; J44.0 Chronic obstructive pulmonary disease with (acute) lower respiratory infection; M46.28 Osteomyelitis of vertebra, sacral and sacrococcygeal region; K56.7 Ileus, unspecified; J98.11 Atelectasis; L89.152 Pressure ulcer of sacral region, stage 2; I48.0 Paroxysmal atrial fibrillation; I35.0 Nonrheumatic aortic (valve) stenosis; I25.10 Atherosclerotic heart disease of native coronary artery without angina pectoris; D69.6 Thrombocytopenia, unspecified; E11.42 Type 2 diabetes mellitus with diabetic polyneuropathy; E03.9 Hypothyroidism, unspecified; E78.2 Mixed hyperlipidemia; E87.6 Hypokalemia; T40.2X5A Adverse effect of other opioids, initial encounter; K52.89 Other specified noninfective gastroenteritis and colitis; K56.41 Fecal impaction; K59.03 Drug induced constipation; M79.7 Fibromyalgia; M21.372 Foot drop, left foot; G47.33 Obstructive sleep apnea (adult) (pediatric); G25.81 Restless legs syndrome; F32.A Depression, unspecified; I25.2 Old myocardial infarction; Z79.01 Long term (current) use of anticoagulants; Z79.82 Long term (current) use of aspirin; Z85.118 Personal history of other malignant neoplasm of bronchus and lung; Z87.891 Personal history of nicotine dependence; Z74.01 Bed confinement status; Z99.3 Dependence on wheelchair; Z92.3 Personal history of irradiation
CPT/HCPCS: 36415; 36600; 71045; 71046; 71250; 74018; 74019; 74176; 80048; 80053; 80202; 82271; 82565; 82607; 82728; 82746; 82805; 82948; 83540; 83550; 83605; 83615; 83735; 83880; 83986; 84145; 84443; 85014; 85018; 85025; 85027; 85055; 85380; 85610; 86140; 86480; 86738; 87015; 87040; 87070; 87081; 87102; 87116; 87205; 87206; 87449; 87635; 87636; 87899; 88108; 88160; 88305; 92610; 92611; 93005; 94640; 94667; 94668; 94669; 96365; 96367; 96375; 97161; 97165; 99285; A9270; C9113; G0378; J0330; J0456; J0692; J1644; J1650; J1836; J1940; J2001; J2212; J2405; J2704; J2765; J3370; J7040; J7120

== ENCOUNTER 2024-06-28 17:59 | Inpatient (IN) | payer MEDICARE, MEDICAID, SELFPAY ==
[2024-06-28] VITALS (10 sets, daily range): BP systolic 108–131; BP diastolic 67–81; PULSE 93–101; RESP 18–26; TEMP 36.6–36.7; O2SAT 93–96; BMI 27.8
--- NOTE | ~2024-06-28 | XR_ITS ---
EXAMINATION: XR chest 2V DATE: 06/28/2024 20:10 INDICATION: Shortness of breath. TECHNIQUE: Frontal and lateral views of the chest were obtained. COMPARISON: Chest single view 08/12/23, chest CT 07/23/2023 FINDINGS: There are chronic airspace opacities with volume loss involving right upper lobe and superi or segment right lower lobe. There are calcified pleural plaques on the right. There are mild airspac e opacities in the mid and lower lung zones. No pleural effusion or pneumothorax. The heart size is n ormal. There is a right internal jugular port with tip in superior vena cava. IMPRESSION: 1. Chronic airspace opacities with volume loss involving right upper lobe and superior segment right lower lobe, consistent with atelectasis and radiation pneumonitis. 2. Mild airspace opacities in the mid and lower lung zones with worsening on the left, consistent wit h atelectasis/scarring versus pneumonia. Reviewed, dictated and finalized at location E. IMPRESSION: 1. Chronic airspace opacities with volume loss involving right upper lobe and s uperior segment right lower lobe, consistent with atelectasis and radiation pne umonitis. 2. Mild airspace opacities in the mid and lower lung zones with worsening on th e left, consistent with atelectasis/scarring versus pneumonia.
--- NOTE | ~2024-06-28 | XR_ITS ---
EXAMINATION: XR chest 1V portable DATE: 07/02/2024 05:53 INDICATION: Hypoxia. TECHNIQUE: A single frontal view of the chest was obtained. COMPARISON: Chest 2 views 06/28/2024 FINDINGS: There are chronic airspace opacities with volume loss involving right upper lobe and superi or segment right lower lobe. There are calcified pleural plaques on the right. There are mild airspac e opacities in the mid and lower lung zones. No pleural effusion or pneumothorax. The heart size is n ormal. There is a right internal jugular port with tip at superior cavoatrial junction. IMPRESSION: 1. Chronic airspace opacities with volume loss involving right upper lobe and superior segment right lower lobe, consistent with atelectasis and radiation pneumonitis. 2. Stable mild airspace opacities in the mid and lower lung zones, consistent with atelectasis/scarri ng versus pneumonia. Reviewed, dictated and finalized at location A. IMPRESSION: 1. Chronic airspace opacities with volume loss involving right upper lobe and s uperior segment right lower lobe, consistent with atelectasis and radiation pne umonitis. 2. Stable mild airspace opacities in the mid and lower lung zones, consistent w ith atelectasis/scarring versus pneumonia.
--- NOTE | ~2024-06-28 | XR_ITS ---
EXAMINATION: XR chest 1V portable DATE: 07/04/2024 05:35 INDICATION: Right upper lobe consolidation TECHNIQUE: frontal view of the chest was obtained. COMPARISON: Chest radiograph dated 07/02/[address] dated 07/23/2023 FINDINGS: Right internal jugular central venous port catheter with distal tip at the caudal superior vena cava. Volume loss in right hemithorax with mild rightward shift of the heart and mediastinum. Chronic cons olidation in the right upper lobe where there is more pronounced volume loss consistent with atelecta sis/scarring with associated likely radiation fibrosis. Additional streaky atelectasis/scarring at th e right lung base. No pulmonary edema, pleural effusion or pneumothorax. The cardiomediastinal silhou ette is normal. IMPRESSION: 1. Chronic consolidation with volume loss in the right upper lobe consistent with atelectasis/scarrin g and radiation pneumonitis. 2. Mild streaky right basilar opacities and favor additional atelectasis over pneumonia. Reviewed, dictated and finalized at location A. IMPRESSION: 1. Chronic consolidation with volume loss in the right upper lobe consistent wi th atelectasis/scarring and radiation pneumonitis. 2. Mild streaky right basilar opacities and favor additional atelectasis over p neumonia.
[2024-06-28 18:27] LABS: Basophils Percent Auto 0.3 % (0.2-1.2); Eosinophils Absolute Auto 0.3 K/mm3 (0-0.3); Eosinophils Percent Auto 2.3 % (0-4.4); Hematocrit 42.1 % (42.0-52.0); Hemoglobin 12.6 g/dL (14.0-18.0); Immature Granulocyte Absolute 0.04 K/mm3 (0.00-0.031); Immature Granulocyte Percent A 0.3 % (0-0.5); Lymphocytes Percent Auto 3.7 % (18.3-44.2); Mean Corpuscular HGB Conc 29.9 g/dl (32-36); Mean Corpuscular Hemoglobin 29.7 pg (26-34); Mean Corpuscular Volume 99.3 fl (80-100); Mean Platelet Volume 10.1 fl (7.4-10.4); Monocytes Absolute Auto 0.8 K/mm3 (0.1-0.6); Monocytes Percent Auto 5.6 % (2.6-8.5); Neutrophils Absolute Auto 11.7 K/mm3 (1.3-6.7); Neutrophils Percent Auto 87.8 % (45.5-73.1); Platelet Count Result 125 k/mm3 (150-375); Red Blood Count 4.24 M/mm3 (4.6-6.20); Red Cell Distribution Width 17.2 % (11.5-14.5); White Blood Count 13.3 K/mm3 (4.5-10.0)
--- NOTE | 2024-06-28 18:31 | ECG_ITS ---
Test Date: 2024-06-28 19:32:52 Measurements Intervals [place] Rate: 93 P: 79 CT: 192 QRS: 39 QRSD: 93 T: 59 QT: 352 QTc: 439 Interpretive Statements SINUS RHYTHM WITHIN NORMAL LIMITS No previous ECG available for comparison Electronically Signed On 06-29-2024 12:22:17 CDT by Harshal Haile M.D.
--- NOTE | 2024-06-28 18:35 | ED.SOB ---
HPI - SOB/Dyspnea General Chief Complaint: Shortness of Breath/Dyspnea Stated Complaint: SOB Time Seen by Provider: 06/28/24 18:18 History of Present Illness HPI Narrative: This is an 78-year-old male presenting from his acute care facility for concerns of worsening pneumonia. Patient was recently diagnosed with community-acquired pneumonia and started on doxycycline today. Patient was noted to be hypoxic now requiring oxygen supplementation. He was 85% EN route via EMS and went from 2 L to 5 L nasal cannula now sustained in the 95% range. Patient does not wear oxygen at home. He has a history of COPD and CHF as well. Endorses no chest pain, nausea, vomiting, fever, chills. No abdominal pain, back pain, dysuria. He has a chronic Barn[place] catheter that has not been changed in 1 month. States he does not feel well and complaining of difficulty in breathing. Patient has very audible breath sounds even across the room which sound very coarse. Related Data Home Medications Medication Instructions Recorded Confirmed aspirin 81 mg tablet,delayed 81 mg PO DAILY 11/06/19 07/23/23 release ropinirole 1 mg tablet 1 mg PO HS 12/18/19 07/23/23 bupropion HCl 300 mg 24 hr tablet, 300 mg PO DAILY 03/09/21 07/23/23 extended release tamsulosin 0.4 mg capsule 0.4 mg PO HS 02/26/22 07/23/23 albuterol sulfate 90 mcg/actuation 1 puff inhalation Q4H PRN 07/27/22 07/23/23 aerosol inhaler Shortness Of Breath ondansetron 8 mg disintegrating 8 mg PO Q8H PRN Nausea 08/10/22 07/23/23 tablet Pro-Stat Sugar Free 30 ml PO DAILY 03/23/23 07/23/23 acetaminophen 325 mg tablet 650 mg PO Q6H PRN Pain, Mild 03/23/23 07/23/23 ascorbic acid (vitamin C) 500 mg 500 mg PO BID 03/23/23 07/23/23 tablet bisacodyl 5 mg tablet,delayed 10 mg PO BID 03/23/23 07/23/23 release (Dulcolax (bisacodyl)) lactulose 10 gram/15 mL oral 20 g PO TID 03/23/23 07/23/23 solution methadone 5 mg tablet 5 mg PO BID 03/23/23 07/23/23 mirtazapine 15 mg tablet (Remeron) 15 mg PO HS 03/23/23 07/23/23 multivit with minerals-iron 18 1 tablet PO DAILY 03/23/23 07/23/23 mg-folic ac 400 mcg-vit K 25 mcg tablet (Adults Multivitamin) oxycodone-acetaminophen 7.5 mg-325 1 tablet PO Q6H PRN Pain 03/23/23 07/23/23 mg tablet levalbuterol HCl 1.25 mg/3 mL 1.25 mg inhalation Q6H PRN SOB 07/23/23 07/23/23 solution for nebulization levothyroxine 25 mcg tablet 25 mcg PO DAILY 07/23/23 07/23/23 polyethylene glycol 3350 17 gram 17 g PO DAILY PRN Constipation 07/23/23 07/23/23 oral powder packet (Miralax) polyethylene glycol 3350 17 17 g PO DAILY 07/23/23 07/23/23 gram/dose oral powder (Miralax) silver sulfadiazine 1 % topical 1 applic topical DAILY buttocks, 07/23/23 07/23/23 cream (SSD) sacrum, and coccyx sucralfate 1 gram tablet (Carafate) 1 g PO TID 07/23/23 07/23/23 trimethobenzamide 100 mg/mL 100 mg IM ONCE PRN Nausea And 07/23/23 07/23/23 intramuscular solution (Tigan) Vomiting Allergies Allergy/AdvReac Type Severity Reaction Status Date / Time Penicillins Allergy Unknown SHORTNESS Verified 03/26/23 13:31 OF BREATH Review of Systems Review of Systems: As reviewed above in the [facility] Past Medical History Medical History Aortic valve stenosis Arthritis (03/26/19) Atrial fibrillation with controlled ventricular rate Benign prostatic hyperplasia Chronic congestive heart failure Chronic obstructive pulmonary disease Coronary artery disease (2019) Non-STEMI - left heart cath showed mild coronary artery disease with severe LV dysfunction EF 20% with possible underlying nonischemic cardiomyopathy, no PCI. Depression Diabetes mellitus Diabetic polyneuropathy associated with type 2 diabetes mellitus Fibromyalgia Hypothyroidism Mixed hyperlipidemia Non-small cell carcinoma of lung Status post chemo radiation. Obstructive sleep apnea Restless legs syndrome Sacral decubitus ulcer Type 2 diabetes
[2024-06-28 18:44] LABS: Alanine Aminotransferase 14 U/L (6-50); Albumin Level 3.6 g/dL (3.5-5.1); Alkaline Phosphatase 76 U/L (38-126); Anion Gap 6 mmol/L (4-12); Aspartate Amino Transferase 19 U/L (17-59); Bilirubin,Total 0.5 mg/dL (0.2-1.3); Blood Urea Nitrogen 35 mg/dL (9-20); Calcium 8.7 mg/dL (8.4-10.2); Carbon Dioxide 36 mmol/L (22-30); Chloride 95 mmol/L (98-107); Estimated Glomerular Filt Rate > 60; Glucose 179 mg/dL (65-110); Potassium 4.8 mmol/L (3.4-5.0); Sodium 137 mmol/L (137-145)
[2024-06-28] MEDS: ALBUTEROL SULFATE NEB 2.5 MG/3 ML INH 5 MG INHALATION ×3 (18:49→18:50)
[2024-06-28] MEDS: IPRATROPIUM BR 0.02% INH SOLN 0.5 MG/2.5 ML VIAL INHALATION ×3 (18:50)
[2024-06-28 18:59] LABS: Alveolar/Arterial O2 Gradient 113.5 mmHg; Base Excess ABG 2.5 mEq/l (+/-2.0); Fractional Inspired Oxygen 40 %; Oxygen Content ABG 15.7 %vol (16.0-22.0); Oxygen Saturation ABG 95.8 % (95.0-100.0); Oxyhemoglobin 91.6 % THb (90.0-100.0); PO2 ABG 92.5 mmHg (80.0-100.0); PO2 FiO2 Ratio Arterial Blood 2.31 %; Total Hemoglobin 12.1 g/dL (12.0-18.0)
[2024-06-28 19:00] LABS: Platelet Estimate Decreased (Adequate); Schistocytes None Seen
[2024-06-28 19:01] LABS: Device NASAL CANNULA; PCO2 ABG 68.9 mmHg (35.0-45.0); Site Drawn RIGHT BRACHIAL; pH ABG 7.271 (7.350-7.450)
[2024-06-28 19:01] LABS: Anisocytosis 2+; Hypochromasia 1+
[2024-06-28] MEDS: methylPREDNISolone SOD SUCC 125 MG VIAL IV PUSH (19:03)
[2024-06-28] MEDS: MAGNESIUM SULF 2 GM/WATER 50ML 2 GM/50 ML BAG IVPB (19:04)
[2024-06-28] MEDS: DOXYCYCLINE 100 MG/NS 100 ML 100 MG/100 ML BAG IVPB (19:06)
[2024-06-28 19:26] LABS: Magnesium 1.6 mg/dL (1.6-2.3)
[2024-06-28 19:36] LABS: NT Pro B Type Natriuretic Pept 282 pg/mL (19.9-100)
--- NOTE | 2024-06-28 19:56 | PC.NURSE ---
while changing corral catheter, I noted that patient has opened penile shaft from chronic corral placement. no acute redness noted to the area
--- NOTE | 2024-06-28 20:34 | PM.IMHP ---
H&P: HPI History of Present Illness Date/Time: 06/28/24 20:34 Chief Complaint: sob Narrative: This is an 78-year-old male with past medical history significant for chronic hypoxic respiratory failure on supplemental oxygen by nasal cannula, atrial fibrillation, congestive heart failure, COPD, coronary artery disease, type diabetes mellitus, diabetic polyneuropathy, hypothyroidism, non-small cell carcinoma of the lung, obstructive sleep apnea, restless leg syndrome. patient is a [facility] resident was brought to the emergency room for evaluation of shortness of breath, patient recently diagnosed with community-acquired pneumonia, patient requiring 5 L of supplemental oxygen, preliminary workup showed a pH of 7.27 pCO2 of 68 PO2 of 92. A chest x-ray was significant for infiltrate. Patient has been admitted for further evaluation management and treatment. EXAMINATION: XR chest 2V DATE: 06/28/2024 20:10 INDICATION: Shortness of breath. TECHNIQUE: Frontal and lateral views of the chest were obtained. COMPARISON: Chest single view 08/12/23, chest CT 07/23/2023 FINDINGS: There are chronic airspace opacities with volume loss involving right upper lobe and superior segment right lower lobe. There are calcified pleural plaques on the right. There are mild airspace opacities in the mid and lower lung zones. No pleural effusion or pneumothorax. The heart size is normal. There is a right internal jugular port with tip in superior vena cava. IMPRESSION: 1. Chronic airspace opacities with volume loss involving right upper lobe and superior segment right lower lobe, consistent with atelectasis and radiation pneumonitis. 2. Mild airspace opacities in the mid and lower lung zones with worsening on the left, consistent with atelectasis/scarring versus pneumonia. Review of Systems Review of Systems: sob [facility] Past Medical History Medical History Aortic valve stenosis Arthritis (03/26/19) Atrial fibrillation with controlled ventricular rate Benign prostatic hyperplasia Chronic congestive heart failure Chronic obstructive pulmonary disease Coronary artery disease (2019) Non-STEMI - left heart cath showed mild coronary artery disease with severe LV dysfunction EF 20% with possible underlying nonischemic cardiomyopathy, no PCI. Depression Diabetes mellitus Diabetic polyneuropathy associated with type 2 diabetes mellitus Fibromyalgia Hypothyroidism Mixed hyperlipidemia Non-small cell carcinoma of lung Status post chemo radiation. Obstructive sleep apnea Restless legs syndrome Sacral decubitus ulcer Type 2 diabetes mellitus Surgical History Surgical History History of hernia repair Umbilical hernia repair. Bilateral inguinal hernia repairs. Family History Family History Sibling Patient's sister is in good health Hypertension Family history of heart disease in male family member before age 55 Mother Family history of heart disease in male family member before age 55 Patient's mother is Family history of congestive heart failure, Onset Age: 70 Father Patient's father is Acute myocardial infarction, Onset Age: 62 Grandparent Depression Family history of arthritis Family history of malignant neoplasm of breast Family history of heart disease in male family member before age 55 Other Cerebrovascular accident Family history of cardiovascular disease Social History Social History Social History: Code status: Full code. Smoking packs per day: 1.5 Smoking cigarettes per day: 30.0 Years smoked: 30 Smoking pack-years: 45.00 Smoking status: Former smoker Second hand tobacco smoke exposure: Yes Alcohol intake: never Subs
[2024-06-28] MEDS: LACTATED RINGERS 1,000 ML 999 ML IV CONT (20:58)
--- NOTE | 2024-06-28 21:53 | ADMGEN ---
This patient, Farhan Armstrong, was admitted to Medical Room 346-01. Patient/family oriented to hospital policies and general routines including ID bracelet, bed and alarms, visiting hours, pain management, procedures, bathroom and other care routines, personal items, smoking policy, room service/diet, and visiting hours. Information on how to activate the Rapid Response Team has been discussed. Patient/Family are encouraged to report perceived risks to care and to ask questions if they do not understand what they are told or what they should do.
[2024-06-29] VITALS (20 sets, daily range): BP systolic 124–132; BP diastolic 56–68; PULSE 73–93; RESP 16–25; TEMP 36.1–36.4; O2SAT 93–99
[2024-06-29] MEDS: IPRATROPIUM BR 0.02% INH SOLN 0.5 MG/2.5 ML VIAL INHALATION ×3 (01:32→15:10)
[2024-06-29] MEDS: IPRATROPIUM 0.5 MG/ALBUTEROL SULFATE 2.5 MG AMPUL.NEB 3 ML INHALATION ×4 (01:32→20:44)
[2024-06-29 02:31] LABS: Alveolar/Arterial O2 Gradient 88.7 mmHg; Base Excess ABG 3.3 mEq/l (+/-2.0); Carboxyhemoglobin 3.1 % THb (0-2.0); Fractional Inspired Oxygen 40 %; HCO3 ABG 33.2 mEq/l (22.0-26.0); Oxygen Content ABG 16.5 %vol (16.0-22.0); Oxygen Saturation ABG 96.3 % (95.0-100.0); Oxyhemoglobin 92.6 % THb (90.0-100.0); PO2 ABG 102.3 mmHg (80.0-100.0); PO2 FiO2 Ratio Arterial Blood 2.56 %; Reduced Hemoglobin 4.3 %THb (0-5.0); Total Hemoglobin 12.6 g/dL (12.0-18.0)
[2024-06-29 02:32] LABS: Device NASAL CANNULA; Modified Allen's Test Pass; PCO2 ABG 81.9 mmHg (35.0-45.0); Site Drawn RIGHT RADIAL; pH ABG 7.226 (7.350-7.450)
[2024-06-29 02:39] LABS: Add Urine Microscopic? YES; Appearance Urine Cloudy (Clear); Bacteria Urine 1+ /hpf; Bilirubin Urine 1+ (Negative); Blood Urine 2+ (Negative); Color Urine Dark Yellow (Yellow); Glucose Urine UA Negative (Negative); Ketones Urine Negative (Negative); Leukocyte Esterase Ur 2+ LEU/UL (Negative); Nitrate Urine Positive (Negative); Protein Urine Trace mg/dL (Negative); Specific Grav Ur 1.021 (1.001-1.035); Squamous Epithelial Cell Urine None Seen /hpf (Few); WBC Urine >100 /hpf (0-3)
[2024-06-29] MEDS: LEVOTHYROXINE SODIUM 25 MCG TABLET PO (06:16)
[2024-06-29] MEDS: FLUTICASONE/SALMETEROL 45-21 MCG INHALER 1 PUFF 2 PUFF INHALATION ×2 (07:45→20:45)
[2024-06-29] MEDS: SUCRALFATE 1 GM TABLET PO ×3 (08:48→17:19)
--- NOTE | 2024-06-29 09:11 | PM.IMPN ---
Progress Note: A&P Assessment and Plan (1) Community acquired pneumonia: Code(s): J18.9 - Pneumonia, unspecified organism Status: Acute (2) COPD (chronic obstructive pulmonary disease): Code(s): J44.9 - Chronic obstructive pulmonary disease, unspecified Status: Acute (3) Obstructive sleep apnea: Code(s): G47.33 - Obstructive sleep apnea (adult) (pediatric) Status: Acute (4) Type 2 diabetes mellitus: Code(s): E11.9 - Type 2 diabetes mellitus without complications Status: Acute (5) Atrial fibrillation: Qualifiers: Atrial fibrillation type: unspecified Qualified Code(s): I48.91 - Unspecified atrial fibrillation Code(s): I48.91 - Unspecified atrial fibrillation Status: Acute (6) Non-small cell carcinoma of lung: Code(s): C34.90 - Malignant neoplasm of unspecified part of unspecified bronchus or lung Status: Acute Plan This is an 78-year-old male presenting from his residential facility for concerns of pneumonia that is worsening. Patient was recently diagnosed with pneumonia and started on doxycycline orally today. Does not normally require oxygen but now is presently requiring supplemental O2. His oxygen kept dropping it was around 85% in route to requiring up titration to 5 L as well as a DuoNeb treatment. On initial presentation patient does sound like he is having very coarse breath sounds and some mild respiratory distress. He does have very coarse breath sounds on auscultation and some wheezing. Endorses no chest pain, fever or chills but endorsing dyspnea. No history of blood clots and he takes Eliquis. He is saturating well on 5 L nasal cannula without any tachycardia or hypo/hypertension. he Was treated symptomatically with albuterol and ipratropium as well as steroids and magnesium sulfate. Ceftriaxone and doxycycline were administered IV. Laboratory evaluation showed Leukocytosis of 13.3. Electrolyte panel showed some CO2 retention with a bicarb of 36 which is chronic. BUN slightly elevated 35 with a creatinine 1.0. BNP only slightly elevated to 182. ECG shows sinus rhythm without any ST segment elevations, depressions or inversions. Normal QTC of 439. Normal [place] interval. ABG 70.27/68/92/31 indicating respiratory acidosis. BiPAP was initiated. Chest x-ray showed chronic airspace opacities with volume loss involving right upper lobe and superior segment right lower lobe consistent with atelectasis in radiation pneumonitis. Mild airspace opacity in the mid and lower lung zones with worsening on the left consistent with atelectasis/scarring versus pneumonia. He has been started on BiPAP treatment. ABG this morning. Still has some respiratory acidosis. Will treat as COPD exacerbation with pneumonia With steroid received Solu-Medrol in the ER along with bronchodilators scheduled Continue antibiotics for pneumonia He had history of right middle lobe narrowing due to extrinsic compression and bronchoscopy was performed on 07/2023. DVT prophylaxis on apixaban Type 2 diabetes SSI COPD Chronic Congestive heart failure she negative of walk thiamine he should be fine systolic 9/ Coronary artery yet History of lung cancer History of atrial fibrillation hypothyroidism hypertension hyperlipidemia Code status: do not resuscitate Subjective Date/time seen: 06/29/24 09:11 Interval history: Use BiPAP overnight. Repeat ABG reviewed. He Is alert and oriented. He feels better. Review of Systems Review of Systems: All systems reviewed & are unremarkable except as noted in HPI and below Exam Narrative: GENERAL: Chronically ill-appearing, no acute distress HEAD:Normocephalic, atraumatic. EYES: PERRLA and EOMI. ENT: Nares clear, no rhinorrhea or epistaxis. Mucous membranes moist. NECK: Supple. CHEST: Very coarse breath sounds bilaterally, coarse breath sounds even when auscultating. End expiratory wheezing noted HEART: Regul
[2024-06-29 09:17] LABS: Alveolar/Arterial O2 Gradient 104.7 mmHg; Base Excess ABG 4.1 mEq/l (+/-2.0); Fractional Inspired Oxygen 40 %; Oxygen Content ABG 15.4 %vol (16.0-22.0); Oxygen Saturation ABG 97.1 % (95.0-100.0); Oxyhemoglobin 93.3 % THb (90.0-100.0); PO2 ABG 104.7 mmHg (80.0-100.0); PO2 FiO2 Ratio Arterial Blood 2.62 %; Total Hemoglobin 11.6 g/dL (12.0-18.0); pH ABG 7.304 (7.350-7.450)
[2024-06-29 09:22] LABS: Device NASAL CANNULA; Modified Allen's Test Pass; PCO2 ABG 65.9 mmHg (35.0-45.0); Site Drawn RIGHT RADIAL
--- NOTE | 2024-06-29 09:52 | PC.NURSE ---
Patient has altered mental status with a critical CO2 of 65.9. All oral medications on hold until patient is more stable, provider notified.
[2024-06-29] MEDS: methADONE HCL (*CRX) 5 MG TABLET PO ×2 (10:32→19:54)
[2024-06-29] MEDS: FLUoxetine HCL 20 MG CAPSULE PO (10:35)
[2024-06-29] MEDS: BISACODYL 5 MG TABLET EC 10 MG PO ×2 (10:36→17:20)
[2024-06-29] MEDS: PANTOPRAZOLE 40 MG TABLET PO (10:36)
[2024-06-29] MEDS: GABAPENTIN 100 MG CAPSULE PO ×3 (10:36→17:20)
[2024-06-29] MEDS: buPROPion HCL XL (24 HR) 150 MG TABCR 300 MG PO (10:36)
[2024-06-29] MEDS: ASPIRIN 81 MG ENTERIC TABLET PO (10:36)
[2024-06-29] MEDS: OLANZapine 5 MG TABLET PO ×2 (10:36→19:53)
[2024-06-29] MEDS: LACTULOSE 20 GM/30 ML UDC PO ×3 (10:37→17:19)
[2024-06-29] MEDS: APIXABAN 5 MG TABLET PO ×2 (10:38→19:53)
--- NOTE | 2024-06-29 10:50 | PC.NURSE ---
All morning medications given at 1050, HR 83, patient tolerated meds well, able to swallow without difficulty.
[2024-06-29] MEDS: ACETAMINOPHEN 325 MG TABLET 650 MG PO ×2 (12:05→19:53)
--- NOTE | 2024-06-29 12:42 | PM.CNPUL ---
Assessment and Plan Assessment and plan (1) Acute hypoxic on chronic hypercapnic respiratory failure: Code(s): J96.01 - Acute respiratory failure with hypoxia; J96.12 - Chronic respiratory failure with hypercapnia Status: Acute (2) Right upper lobe consolidation: Code(s): J18.1 - Lobar pneumonia, unspecified organism Status: Acute Assessment and Plan: This is a results of community acquired pneumonia; this is the same general area where he had consolidation in Jul 2023; his bronchoscopy Set 2022 showed narrowing of the RML without occlusion. Will repeat imaging; if this does not clear, may consider bronchoscopy to assure patency of all segments. Continue pulmonary hygiene, Mucomyst nebulized, vest therapy, bronchodilators. 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 (6) Obstructive sleep apnea (adult) (pediatric): Code(s): G47.33 - Obstructive sleep apnea (adult) (pediatric) Status: Acute Assessment and Plan: 08/18/2020 split night study = moderate obstructive sleep apnea, AHI of 25.4 during the baseline, extremely severe in non-supine REM with an index of 50.1, sustained hypoxemia with 89.2% of the baseline spent below 88%.He was treated with BiPAP 02/11. He has been on BiPAP here to maintain oxygenation, although he is not using this at the [facility]. Plan Mucomyst nebulized t.i.d. Vest therapy, vibratory vest t.i.d. for 30 minutes to loosen secretions Urine antigens Speech evaluation and swallow study before discharge Get records from [facility] Positional therapy; he would benefit from having chest PT and being in different positions, however this is not standard treatment. We do not use chest percussor. Antibiotics Repeat CXR, see if RUL is better aerated. He has been on PAP in the past, so not sure if this was respiratory failure or ANIA; he had a sleep study Aug 2020, History of Present Illness History of Present Illness Consult date: 06/29/24 Requesting physician: Kye Weaver MD Chief complaint: Community-acquired pneumonia, hypoxic respiratory Narrative: Patient was seen Jun 29 at 12:15 Room 346 NEW: Farhan Armstrong is an 78-year-old man with COPD, not on oxygen at baseline, who is a resident at [facility] nursing [facility] in [place], [facility] a year and a half ago, says that he moved from [place], [place]. He has been coming to [place] since 2016, so he was in the community before going into the SNF. He is nonambulatory, has not walked for several years. 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 Over the last 2 weeks he had increasing cough, increasing sputum p
[2024-06-29] MEDS: ACETYLCYSTEINE 20% INHAL SOLN 800 MG/4 ML VIAL 200 MG INHALATION ×2 (15:09→20:44)
--- NOTE | 2024-06-29 15:14 | PCRCNOTE ---
RT attempted to start chest vest on pt around 1345, pt had just started to eat so pt was given around 60 minutes to finish eating and let food settle before starting the chest vest. RT returned to pt room around 1445 when pt told RT that he had just gotten done eating. PT was given Mucomyst and bronchodilators as scheduled, will start CPT at 2000 rounds. RN aware.
[2024-06-29] MEDS: methylPREDNISolone SOD SUCC 40 MG VIAL IV PUSH ×2 (15:29→19:52)
--- NOTE | 2024-06-29 18:10 | PCSTNOTE ---
Please refer to the Bedside Swallow Evaluation in the EMR. Please note, silent aspiration cannot be ruled out at bedside.
[2024-06-29] MEDS: cefTRIAXone 2 GM/NS 100 ML 2 GM/100 ML BAG IVPB (19:52)
[2024-06-29] MEDS: DOXYCYCLINE 100 MG/NS 100 ML 100 MG/100 ML BAG IVPB (19:53)
[2024-06-29] MEDS: TAMSULOSIN HCL 0.4 MG CAPSULE PO (19:53)
[2024-06-29] MEDS: MIRTAZAPINE 15 MG TABLET PO (19:53)
[2024-06-29] MEDS: rOPINIRole HCL 1 MG TABLET PO (19:54)
[2024-06-30] VITALS (19 sets, daily range): BP systolic 111–145; BP diastolic 54–73; PULSE 68–93; RESP 16–28; TEMP 36.3–37.1; O2SAT 94–98
[2024-06-30] MEDS: IPRATROPIUM 0.5 MG/ALBUTEROL SULFATE 2.5 MG AMPUL.NEB 3 ML INHALATION ×4 (02:30→21:09)
[2024-06-30] MEDS: LEVOTHYROXINE SODIUM 25 MCG TABLET PO (05:34)
[2024-06-30 05:41] LABS: Alveolar/Arterial O2 Gradient 128.3 mmHg; Base Excess ABG 6.9 mEq/l (+/-2.0); Carboxyhemoglobin 1.9 % THb (0-2.0); Fractional Inspired Oxygen 50 %; HCO3 ABG 34.2 mEq/l (22.0-26.0); Oxygen Content ABG 15.3 %vol (16.0-22.0); Oxygen Saturation ABG 98.9 % (95.0-100.0); Oxyhemoglobin 95.3 % THb (90.0-100.0); PO2 ABG 156.3 mmHg (80.0-100.0); PO2 FiO2 Ratio Arterial Blood 3.13 %; Reduced Hemoglobin 2.8 %THb (0-5.0); Total Hemoglobin 11.2 g/dL (12.0-18.0); pH ABG 7.347 (7.350-7.450)
[2024-06-30 05:44] LABS: PCO2 ABG 63.9 mmHg (35.0-45.0)
[2024-06-30 05:45] LABS: CPAP 7 cmH2O; Device CPAP; Modified Allen's Test Pass; Site Drawn RIGHT RADIAL
--- NOTE | 2024-06-30 05:59 | PCRCNOTE ---
When administering the vest last night (06/29) the patient would only tolerate a pressure of 7Hz and for 15 minutes. He stated it was making his head shake and he just could not do it anymore. Vest was adjusted by RT and pt stated the same thing. Vest was terminated after 15 minutes. Treatment supposed to go 30 minutes per Respiratory Care communication order per Dr. Marin. Patient's bipap was changed to cpap per Dr. Mirza. RT set pressure to 7. Pt would not tolerate any more.
[2024-06-30 06:17] LABS: Basophils Percent Auto 0.1 % (0.2-1.2); Hematocrit 35.8 % (42.0-52.0); Hemoglobin 10.9 g/dL (14.0-18.0); Immature Granulocyte Absolute 0.04 K/mm3 (0.00-0.031); Immature Granulocyte Percent A 0.5 % (0-0.5); Immature Platelet Fraction Pct 3.4 % (0.9-11.2); Lymphocytes Percent Auto 6.1 % (18.3-44.2); Mean Corpuscular HGB Conc 30.4 g/dl (32-36); Mean Corpuscular Hemoglobin 30.2 pg (26-34); Mean Corpuscular Volume 99.2 fl (80-100); Mean Platelet Volume 10.1 fl (7.4-10.4); Monocytes Absolute Auto 0.3 K/mm3 (0.1-0.6); Monocytes Percent Auto 3.1 % (2.6-8.5); Neutrophils Absolute Auto 7.4 K/mm3 (1.3-6.7); Neutrophils Percent Auto 90.2 % (45.5-73.1); Platelet Count Result 133 k/mm3 (150-375); Red Blood Count 3.61 M/mm3 (4.6-6.20); Red Cell Distribution Width 16.4 % (11.5-14.5); White Blood Count 8.2 K/mm3 (4.5-10.0)
[2024-06-30 06:26] LABS: Alanine Aminotransferase 13 U/L (6-50); Albumin Level 3.1 g/dL (3.5-5.1); Alkaline Phosphatase 54 U/L (38-126); Anion Gap 3 mmol/L (4-12); Aspartate Amino Transferase 15 U/L (17-59); Bilirubin,Total 0.4 mg/dL (0.2-1.3); Blood Urea Nitrogen 36 mg/dL (9-20); Calcium 8.3 mg/dL (8.4-10.2); Carbon Dioxide 37 mmol/L (22-30); Chloride 97 mmol/L (98-107); Estimated CRCL calculation 52 ml/min; Estimated Glomerular Filt Rate > 60; Glucose 150 mg/dL (65-110); Potassium 4.6 mmol/L (3.4-5.0); Sodium 137 mmol/L (137-145)
[2024-06-30] MEDS: FLUTICASONE/SALMETEROL 45-21 MCG INHALER 1 PUFF 2 PUFF INHALATION ×2 (07:28→21:09)
[2024-06-30] MEDS: ACETYLCYSTEINE 20% INHAL SOLN 800 MG/4 ML VIAL 200 MG INHALATION ×3 (07:28→21:09)
[2024-06-30] MEDS: APIXABAN 5 MG TABLET PO ×2 (08:31→21:00)
[2024-06-30] MEDS: FLUoxetine HCL 20 MG CAPSULE PO (08:31)
[2024-06-30] MEDS: OLANZapine 5 MG TABLET PO ×2 (08:31→21:00)
[2024-06-30] MEDS: GABAPENTIN 100 MG CAPSULE PO ×3 (08:31→16:46)
[2024-06-30] MEDS: buPROPion HCL XL (24 HR) 150 MG TABCR 300 MG PO (08:31)
[2024-06-30] MEDS: PANTOPRAZOLE 40 MG TABLET PO (08:31)
[2024-06-30] MEDS: BISACODYL 5 MG TABLET EC 10 MG PO ×2 (08:31→16:46)
[2024-06-30] MEDS: LACTULOSE 20 GM/30 ML UDC PO ×3 (08:31→16:46)
[2024-06-30] MEDS: methylPREDNISolone SOD SUCC 40 MG VIAL IV PUSH (08:31)
[2024-06-30] MEDS: methADONE HCL (*CRX) 5 MG TABLET PO ×2 (08:31→21:00)
[2024-06-30] MEDS: ASPIRIN 81 MG ENTERIC TABLET PO (08:31)
[2024-06-30] MEDS: SUCRALFATE 1 GM TABLET PO ×3 (08:47→16:47)
--- NOTE | 2024-06-30 10:02 | ECG_ITS ---
Test Date: 2024-06-30 10:12:27 Measurements Intervals [place] Rate: 76 P: 69 NV: 185 QRS: 30 QRSD: 102 T: 45 QT: 375 QTc: 423 Interpretive Statements SINUS RHYTHM WITH OCCASIONAL VENTRICULAR PREMATURE COMPLEXES Compared to ECG 06/28/2024 19:32:52 NO SIGNIFICANT CHANGES Electronically Signed On 06-30-2024 12:00:02 CDT by Shereen Gonzalez M.D.
[2024-06-30] MEDS: CALCIUM CARBONATE (TUMS) 500 MG (200 MG ELEMENTAL) PO (11:36)
--- NOTE | 2024-06-30 12:41 | PM.IMPN ---
Progress Note: A&P Assessment and Plan (1) Community acquired pneumonia: Code(s): J18.9 - Pneumonia, unspecified organism Status: Acute (2) COPD (chronic obstructive pulmonary disease): Code(s): J44.9 - Chronic obstructive pulmonary disease, unspecified Status: Acute (3) Obstructive sleep apnea: Code(s): G47.33 - Obstructive sleep apnea (adult) (pediatric) Status: Acute (4) Type 2 diabetes mellitus: Code(s): E11.9 - Type 2 diabetes mellitus without complications Status: Acute (5) Atrial fibrillation: Qualifiers: Atrial fibrillation type: unspecified Qualified Code(s): I48.91 - Unspecified atrial fibrillation Code(s): I48.91 - Unspecified atrial fibrillation Status: Acute (6) Non-small cell carcinoma of lung: Code(s): C34.90 - Malignant neoplasm of unspecified part of unspecified bronchus or lung Status: Acute Plan This is an 78-year-old male presenting from his senior living facility for concerns of pneumonia that is worsening. Patient was recently diagnosed with pneumonia and started on doxycycline orally today. Does not normally require oxygen but now is presently requiring supplemental O2. His oxygen kept dropping it was around 85% in route to requiring up titration to 5 L as well as a DuoNeb treatment. On initial presentation patient does sound like he is having very coarse breath sounds and some mild respiratory distress. He does have very coarse breath sounds on auscultation and some wheezing. Endorses no chest pain, fever or chills but endorsing dyspnea. No history of blood clots and he takes Eliquis. He is saturating well on 5 L nasal cannula without any tachycardia or hypo/hypertension. he Was treated symptomatically with albuterol and ipratropium as well as steroids and magnesium sulfate. Ceftriaxone and doxycycline were administered IV. Laboratory evaluation showed Leukocytosis of 13.3. Electrolyte panel showed some CO2 retention with a bicarb of 36 which is chronic. BUN slightly elevated 35 with a creatinine 1.0. BNP only slightly elevated to 182. ECG shows sinus rhythm without any ST segment elevations, depressions or inversions. Normal QTC of 439. Normal [place] interval. ABG 70.27/68/92/31 indicating respiratory acidosis. BiPAP was initiated. Chest x-ray showed chronic airspace opacities with volume loss involving right upper lobe and superior segment right lower lobe consistent with atelectasis in radiation pneumonitis. Mild airspace opacity in the mid and lower lung zones with worsening on the left consistent with atelectasis/scarring versus pneumonia. He has been started on BiPAP treatment. ABG continues to improve. Intolerant to BiPAP and was switched to CPAP last night. Unsure if you would be able to arrange CPAP for him without a sleep study. Pulmonary on board for recommendations Treated as COPD exacerbation with pneumonia With steroid received Solu-Medrol in the ER along with bronchodilators scheduled. I will switch Solu-Medrol to prednisone Continue antibiotics for pneumonia He had history of right middle lobe narrowing due to extrinsic compression and bronchoscopy was performed on 07/2023. DVT prophylaxis on apixaban Type 2 diabetes SSI COPD Chronic Congestive heart failure diastolic Coronary artery disease History of lung cancer History of atrial fibrillation hypothyroidism hypertension hyperlipidemia Code status: do not resuscitate Subjective Date/time seen: 06/30/24 12:41 Interval history: No overnight events. He was placed on CPAP last night and used overnight Review of Systems Review of Systems: All systems reviewed & are unremarkable except as noted in HPI and below Exam Narrative: GENERAL: Chronically ill-appearing, no acute distress HEAD:Normocephalic, atraumatic. EYES: PERRLA and EOMI. ENT: Nares clear, no rhinorrhea or epistaxis. Mucous membranes moist. NECK: Supple. CHEST: Very c
[2024-06-30] MEDS: cefTRIAXone 2 GM/NS 100 ML 2 GM/100 ML BAG IVPB (20:59)
[2024-06-30] MEDS: rOPINIRole HCL 1 MG TABLET PO (21:00)
[2024-06-30] MEDS: TAMSULOSIN HCL 0.4 MG CAPSULE PO (21:00)
[2024-06-30] MEDS: DOXYCYCLINE 100 MG/NS 100 ML 100 MG/100 ML BAG IVPB (21:00)
[2024-06-30] MEDS: MIRTAZAPINE 15 MG TABLET PO (21:00)
[2024-07-01] VITALS (19 sets, daily range): BP systolic 116–130; BP diastolic 63–67; PULSE 61–88; RESP 16–19; TEMP 36.6–37.1; O2SAT 87–97
[2024-07-01] MEDS: IPRATROPIUM 0.5 MG/ALBUTEROL SULFATE 2.5 MG AMPUL.NEB 3 ML INHALATION ×3 (02:28→20:18)
[2024-07-01 05:42] LABS: Glucose Point of Care 199 mg/dl (65-105)
[2024-07-01 05:54] LABS: Basophils Percent Auto 0.4 % (0.2-1.2); Eosinophils Percent Auto 0.4 % (0-4.4); Hematocrit 37.8 % (42.0-52.0); Hemoglobin 11.2 g/dL (14.0-18.0); Immature Granulocyte Absolute 0.04 K/mm3 (0.00-0.031); Immature Granulocyte Percent A 0.5 % (0-0.5); Lymphocytes Absolute Auto 1.12 K/mm3 (0.9-3.2); Lymphocytes Percent Auto 13.9 % (18.3-44.2); Mean Corpuscular HGB Conc 29.6 g/dl (32-36); Mean Corpuscular Hemoglobin 29.3 pg (26-34); Mean Platelet Volume 10.3 fl (7.4-10.4); Monocytes Absolute Auto 0.8 K/mm3 (0.1-0.6); Monocytes Percent Auto 10.3 % (2.6-8.5); Neutrophils Percent Auto 74.5 % (45.5-73.1); Platelet Count Result 141 k/mm3 (150-375); Red Blood Count 3.82 M/mm3 (4.6-6.20); Red Cell Distribution Width 16.6 % (11.5-14.5)
[2024-07-01] MEDS: LEVOTHYROXINE SODIUM 25 MCG TABLET PO (06:04)
[2024-07-01 06:06] LABS: Alanine Aminotransferase 12 U/L (6-50); Albumin Level 3.1 g/dL (3.5-5.1); Alkaline Phosphatase 61 U/L (38-126); Anion Gap 2 mmol/L (4-12); Aspartate Amino Transferase 15 U/L (17-59); Bilirubin,Total 0.2 mg/dL (0.2-1.3); Blood Urea Nitrogen 32 mg/dL (9-20); Calcium 8.5 mg/dL (8.4-10.2); Carbon Dioxide 37 mmol/L (22-30); Chloride 98 mmol/L (98-107); Estimated CRCL calculation 52 ml/min; Estimated Glomerular Filt Rate > 60; Glucose 92 mg/dL (65-110); Magnesium 1.9 mg/dL (1.6-2.3); Potassium 4.1 mmol/L (3.4-5.0); Sodium 137 mmol/L (137-145)
[2024-07-01 07:38] LABS: Anisocytosis 1+; Platelet Estimate Slightly Decreased (Adequate); Schistocytes None Seen
[2024-07-01] MEDS: predniSONE 20 MG TABLET 40 MG PO (09:55)
[2024-07-01] MEDS: buPROPion HCL XL (24 HR) 150 MG TABCR 300 MG PO (09:55)
[2024-07-01] MEDS: GABAPENTIN 100 MG CAPSULE PO ×3 (09:56→16:38)
[2024-07-01] MEDS: ASPIRIN 81 MG ENTERIC TABLET PO (09:56)
[2024-07-01] MEDS: PANTOPRAZOLE 40 MG TABLET PO (09:56)
[2024-07-01] MEDS: OLANZapine 5 MG TABLET PO ×2 (09:56→21:10)
[2024-07-01] MEDS: BISACODYL 5 MG TABLET EC 10 MG PO ×2 (09:56→16:37)
[2024-07-01] MEDS: methADONE HCL (*CRX) 5 MG TABLET PO ×2 (09:56→21:10)
[2024-07-01] MEDS: APIXABAN 5 MG TABLET PO ×2 (09:56→21:09)
[2024-07-01] MEDS: FLUoxetine HCL 20 MG CAPSULE PO (09:56)
[2024-07-01] MEDS: LACTULOSE 20 GM/30 ML UDC PO ×3 (09:57→16:37)
[2024-07-01] MEDS: SUCRALFATE 1 GM TABLET PO ×2 (11:12→16:38)
[2024-07-01] MEDS: NITROFURANTOIN MONOHYD MACROCR 100 MG CAP PO ×2 (12:27→21:10)
--- NOTE | 2024-07-01 12:44 | PCRCNOTE ---
Window of time for administration has passed. See next scheduled administration.
[2024-07-01] MEDS: ACETYLCYSTEINE 20% INHAL SOLN 800 MG/4 ML VIAL 200 MG INHALATION ×2 (14:55→20:18)
--- NOTE | 2024-07-01 14:59 | PCRCNOTE ---
PT REFUSED TO DO THE CHEST VEST, PT STATES THAT IT HURTS HIS BACK
--- NOTE | 2024-07-01 16:14 | PM.IMPN ---
Progress Note: A&P Assessment and Plan (1) Community acquired pneumonia: Code(s): J18.9 - Pneumonia, unspecified organism Status: Acute (2) COPD (chronic obstructive pulmonary disease): Code(s): J44.9 - Chronic obstructive pulmonary disease, unspecified Status: Acute (3) Obstructive sleep apnea: Code(s): G47.33 - Obstructive sleep apnea (adult) (pediatric) Status: Acute (4) Type 2 diabetes mellitus: Code(s): E11.9 - Type 2 diabetes mellitus without complications Status: Acute (5) Atrial fibrillation: Qualifiers: Atrial fibrillation type: unspecified Qualified Code(s): I48.91 - Unspecified atrial fibrillation Code(s): I48.91 - Unspecified atrial fibrillation Status: Acute (6) Non-small cell carcinoma of lung: Code(s): C34.90 - Malignant neoplasm of unspecified part of unspecified bronchus or lung Status: Acute Plan This is an 78-year-old male presenting from his shelter facility for concerns of pneumonia that is worsening. Patient was recently diagnosed with pneumonia and started on doxycycline orally today. Does not normally require oxygen but now is presently requiring supplemental O2. His oxygen kept dropping it was around 85% in route to requiring up titration to 5 L as well as a DuoNeb treatment. On initial presentation patient does sound like he is having very coarse breath sounds and some mild respiratory distress. He does have very coarse breath sounds on auscultation and some wheezing. Endorses no chest pain, fever or chills but endorsing dyspnea. No history of blood clots and he takes Eliquis. He is saturating well on 5 L nasal cannula without any tachycardia or hypo/hypertension. he Was treated symptomatically with albuterol and ipratropium as well as steroids and magnesium sulfate. Ceftriaxone and doxycycline were administered IV. Laboratory evaluation showed Leukocytosis of 13.3. Electrolyte panel showed some CO2 retention with a bicarb of 36 which is chronic. BUN slightly elevated 35 with a creatinine 1.0. BNP only slightly elevated to 182. ECG shows sinus rhythm without any ST segment elevations, depressions or inversions. Normal QTC of 439. Normal [place] interval. ABG 70.27/68/92/31 indicating respiratory acidosis. BiPAP was initiated. Chest x-ray showed chronic airspace opacities with volume loss involving right upper lobe and superior segment right lower lobe consistent with atelectasis in radiation pneumonitis. Mild airspace opacity in the mid and lower lung zones with worsening on the left consistent with atelectasis/scarring versus pneumonia. He has been started on BiPAP treatment. ABG continues to improve. Intolerant to BiPAP and was switched to CPAP last night. Unsure if you would be able to arrange CPAP for him without a sleep study. Pulmonary on board for recommendations Treated as COPD exacerbation with pneumonia With steroid received Solu-Medrol in the ER along with bronchodilators scheduled. I will switch Solu-Medrol to prednisone Continue antibiotics for pneumonia He had history of right middle lobe narrowing due to extrinsic compression and bronchoscopy was performed on 07/2023. DVT prophylaxis on apixaban Type 2 diabetes SSI COPD Chronic Congestive heart failure diastolic Coronary artery disease History of lung cancer History of atrial fibrillation hypothyroidism hypertension hyperlipidemia Code status: do not resuscitate Assuming care on 07/01/2024. Will discuss with pulmonology about the usefulness of CPAP machine on discharge. He had quite significant hypercapnia on admission. Also still requires O2 via nasal cannula continuously. Continue prednisone, bronchodilators, repeat chest x-ray, on 07/01 change ceftriaxone to suffer oxygen. Continue doxycycline. Finish a 7 day and 5 day course, respectively. Subjective Date/time seen: 07/01/24 16:14 Interval history: No acute overnight events.
[2024-07-01] MEDS: FLUTICASONE/SALMETEROL 45-21 MCG INHALER 1 PUFF 2 PUFF INHALATION (20:19)
[2024-07-01] MEDS: cefuroxime axetiL 250 MG TABLET 500 MG PO (21:09)
[2024-07-01] MEDS: TAMSULOSIN HCL 0.4 MG CAPSULE PO (21:09)
[2024-07-01] MEDS: rOPINIRole HCL 1 MG TABLET PO (21:10)
[2024-07-01] MEDS: MIRTAZAPINE 15 MG TABLET PO (21:10)
[2024-07-01] MEDS: DOXYCYCLINE HYCLATE 100 MG TABLET PO (21:10)
[2024-07-02] VITALS (16 sets, daily range): BP systolic 113–129; BP diastolic 57–62; PULSE 63–91; RESP 16–20; TEMP 36.2–36.6; O2SAT 90–100
[2024-07-02] MEDS: IPRATROPIUM 0.5 MG/ALBUTEROL SULFATE 2.5 MG AMPUL.NEB 3 ML INHALATION ×3 (02:23→19:42)
[2024-07-02 05:48] LABS: Basophils Percent Auto 0.5 % (0.2-1.2); Eosinophils Absolute Auto 0.1 K/mm3 (0-0.3); Eosinophils Percent Auto 0.8 % (0-4.4); Hematocrit 37.7 % (42.0-52.0); Hemoglobin 11.3 g/dL (14.0-18.0); Immature Granulocyte Absolute 0.02 K/mm3 (0.00-0.031); Immature Granulocyte Percent A 0.3 % (0-0.5); Lymphocytes Absolute Auto 0.78 K/mm3 (0.9-3.2); Lymphocytes Percent Auto 10.7 % (18.3-44.2); Mean Corpuscular Hemoglobin 29.7 pg (26-34); Mean Platelet Volume 10.2 fl (7.4-10.4); Monocytes Absolute Auto 0.8 K/mm3 (0.1-0.6); Monocytes Percent Auto 11.4 % (2.6-8.5); Neutrophils Absolute Auto 5.6 K/mm3 (1.3-6.7); Neutrophils Percent Auto 76.3 % (45.5-73.1); Platelet Count Result 147 k/mm3 (150-375); Red Blood Count 3.81 M/mm3 (4.6-6.20); Red Cell Distribution Width 16.3 % (11.5-14.5); White Blood Count 7.3 K/mm3 (4.5-10.0)
[2024-07-02 06:03] LABS: Anion Gap 2 mmol/L (4-12); Blood Urea Nitrogen 30 mg/dL (9-20); Calcium 8.6 mg/dL (8.4-10.2); Carbon Dioxide 38 mmol/L (22-30); Chloride 96 mmol/L (98-107); Estimated CRCL calculation 52 ml/min; Estimated Glomerular Filt Rate > 60; Glucose 114 mg/dL (65-110); Magnesium 1.8 mg/dL (1.6-2.3); Sodium 136 mmol/L (137-145)
[2024-07-02] MEDS: LEVOTHYROXINE SODIUM 25 MCG TABLET PO (06:47)
[2024-07-02] MEDS: SUCRALFATE 1 GM TABLET PO ×3 (06:47→17:30)
[2024-07-02 08:49] LABS: Glucose Point of Care 85 mg/dl (65-105)
[2024-07-02] MEDS: BISACODYL 5 MG TABLET EC 10 MG PO ×2 (08:49→17:30)
[2024-07-02] MEDS: LACTULOSE 20 GM/30 ML UDC PO ×2 (08:49→12:05)
[2024-07-02] MEDS: DOXYCYCLINE HYCLATE 100 MG TABLET PO ×2 (08:49→20:20)
[2024-07-02] MEDS: FLUoxetine HCL 20 MG CAPSULE PO (08:50)
[2024-07-02] MEDS: predniSONE 20 MG TABLET 40 MG PO (08:50)
[2024-07-02] MEDS: cefuroxime axetiL 250 MG TABLET 500 MG PO ×2 (08:50→20:20)
[2024-07-02] MEDS: APIXABAN 5 MG TABLET PO (08:50)
[2024-07-02] MEDS: methADONE HCL (*CRX) 5 MG TABLET PO ×2 (08:51→20:20)
[2024-07-02] MEDS: ASPIRIN 81 MG ENTERIC TABLET PO (08:51)
[2024-07-02] MEDS: buPROPion HCL XL (24 HR) 150 MG TABCR 300 MG PO (08:51)
[2024-07-02] MEDS: PANTOPRAZOLE 40 MG TABLET PO (08:51)
[2024-07-02] MEDS: GABAPENTIN 100 MG CAPSULE PO ×3 (08:51→17:30)
[2024-07-02] MEDS: OLANZapine 5 MG TABLET PO ×2 (08:51→20:20)
[2024-07-02] MEDS: NITROFURANTOIN MONOHYD MACROCR 100 MG CAP PO ×2 (08:51→20:19)
--- NOTE | 2024-07-02 12:07 | PM.PNPUL ---
Progress Note: A&P Assessment and Plan (1) Acute hypoxic on chronic hypercapnic respiratory failure: Code(s): J96.01 - Acute respiratory failure with hypoxia; J96.12 - Chronic respiratory failure with hypercapnia Status: Acute Assessment and Plan: This is worsened due to community acquired pneumonia; this is the same general area where he had consolidation in Jul 2023; his bronchoscopy Set 2022 showed narrowing of the RML without occlusion. He has no improvement after using Mucomyst and vest; this is not clearing, and I called his son Harshal, left a voice message on his cell, to discuss a bronchoscopy to see if we can clear secretions, improve aeration. He is symptomatic. He says that he has a cough, does not feel normal. Continue pulmonary hygiene, Mucomyst nebulized, limited vest therapy, bronchodilators. He was BiPAP initially as he has significant hypercapnea, then was switched to CPAP 7 by safety patrol officer; he needs BiPAP to help with ventilation as well as oxygenation. He is a intermediate patient, so getting him set up with a device at his OR may not be easy. (2) Community acquired pneumonia: Code(s): J18.9 - Pneumonia, unspecified organism Status: Acute Assessment and Plan: RUL consolidation, area of cancer, and nothing was found in his airway although he appeared to have possible external compression last Jul. Has not smoked for > 20 years. 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 (5) Obstructive sleep apnea: Code(s): G47.33 - Obstructive sleep apnea (adult) (pediatric) Status: Acute Assessment and Plan: 08/18/2020 split night study = moderate obstructive sleep apnea, AHI of 25.4 during the baseline, extremely severe in non-supine REM with an index of 50.1, sustained hypoxemia with 89.2% of the baseline spent below 88%.He was treated with BiPAP 02/11. He has been on BiPAP here to maintain oxygenation, although he is not using this at the [facility]. Plan Plan Stop CPAP 7 cm with sleep. Re-start BiPAP 08/22 and adjust to comfort Mucomyst nebulized t.i.d. Talked to son Harshal about bronchoscopy tomorrow for RUL consolidation on CXR in area of prior non-small cell lung cancer Patient will be NPO after N for bronch at 3 pm Vest therapy as tolerated, he has to have less time 15 min and less Hz because it shakes his head too much. Urine antigens Speech evaluation and swallow study before discharge We never got records from [facility] He has been on PAP in the past, so not sure if this was respiratory failure or ANIA; he had a sleep study Aug 2020. Subjective Date/time seen: 07/02/24 12:07 Interval history: hospital follow up visit: Farhan Armstrong is 78 years old, here from a nursing facility, RUL is still collapsed on CXR today, and he has a cough that does not feel normal. He is on Nasal cannula O2 @ 3 L/min, sat is 98%, overall oxygenation is improving. I spoke with the patient and his son about bronchoscopy, both are in a
[2024-07-02] MEDS: ACETYLCYSTEINE 20% INHAL SOLN 800 MG/4 ML VIAL 200 MG INHALATION ×2 (14:25→19:42)
--- NOTE | 2024-07-02 15:14 | PM.IMPN ---
Progress Note: A&P Assessment and Plan (1) Community acquired pneumonia: Code(s): J18.9 - Pneumonia, unspecified organism Status: Acute (2) COPD (chronic obstructive pulmonary disease): Code(s): J44.9 - Chronic obstructive pulmonary disease, unspecified Status: Acute (3) Obstructive sleep apnea: Code(s): G47.33 - Obstructive sleep apnea (adult) (pediatric) Status: Acute (4) Type 2 diabetes mellitus: Code(s): E11.9 - Type 2 diabetes mellitus without complications Status: Acute (5) Atrial fibrillation: Qualifiers: Atrial fibrillation type: unspecified Qualified Code(s): I48.91 - Unspecified atrial fibrillation Code(s): I48.91 - Unspecified atrial fibrillation Status: Acute (6) Non-small cell carcinoma of lung: Code(s): C34.90 - Malignant neoplasm of unspecified part of unspecified bronchus or lung Status: Acute Plan This is an 78-year-old male presenting from his long-term facility for concerns of pneumonia that is worsening. Patient was recently diagnosed with pneumonia and started on doxycycline orally today. Does not normally require oxygen but now is presently requiring supplemental O2. His oxygen kept dropping it was around 85% in route to requiring up titration to 5 L as well as a DuoNeb treatment. On initial presentation patient does sound like he is having very coarse breath sounds and some mild respiratory distress. He does have very coarse breath sounds on auscultation and some wheezing. Endorses no chest pain, fever or chills but endorsing dyspnea. No history of blood clots and he takes Eliquis. He is saturating well on 5 L nasal cannula without any tachycardia or hypo/hypertension. he Was treated symptomatically with albuterol and ipratropium as well as steroids and magnesium sulfate. Ceftriaxone and doxycycline were administered IV. Laboratory evaluation showed Leukocytosis of 13.3. Electrolyte panel showed some CO2 retention with a bicarb of 36 which is chronic. BUN slightly elevated 35 with a creatinine 1.0. BNP only slightly elevated to 182. ECG shows sinus rhythm without any ST segment elevations, depressions or inversions. Normal QTC of 439. Normal MA interval. ABG 70.27/68/92/31 indicating respiratory acidosis. BiPAP was initiated. Chest x-ray showed chronic airspace opacities with volume loss involving right upper lobe and superior segment right lower lobe consistent with atelectasis in radiation pneumonitis. Mild airspace opacity in the mid and lower lung zones with worsening on the left consistent with atelectasis/scarring versus pneumonia. He has been started on BiPAP treatment. ABG continues to improve. Intolerant to BiPAP and was switched to CPAP last night. Unsure if you would be able to arrange CPAP for him without a sleep study. Pulmonary on board for recommendations Treated as COPD exacerbation with pneumonia With steroid received Solu-Medrol in the ER along with bronchodilators scheduled. I will switch Solu-Medrol to prednisone Continue antibiotics for pneumonia He had history of right middle lobe narrowing due to extrinsic compression and bronchoscopy was performed on 07/2023. DVT prophylaxis on apixaban Type 2 diabetes SSI COPD Chronic Congestive heart failure diastolic Coronary artery disease History of lung cancer History of atrial fibrillation hypothyroidism hypertension hyperlipidemia Code status: do not resuscitate Assuming care on 07/01/2024. Will discuss with pulmonology about the usefulness of CPAP machine on discharge. He had quite significant hypercapnia on admission. Also still requires O2 via nasal cannula continuously. Continue prednisone, bronchodilators, repeat chest x-ray, on 07/01 change ceftriaxone to suffer oxygen. Continue doxycycline. Finish a 7 day and 5 day course, respectively. On 07/02/2024: Patient reports feeling better but not back to baseline. Reports cough. Do be
[2024-07-02] MEDS: FLUTICASONE/SALMETEROL 45-21 MCG INHALER 1 PUFF 2 PUFF INHALATION (19:47)
[2024-07-02] MEDS: MIRTAZAPINE 15 MG TABLET PO (20:19)
[2024-07-02] MEDS: rOPINIRole HCL 1 MG TABLET PO (20:20)
[2024-07-02] MEDS: TAMSULOSIN HCL 0.4 MG CAPSULE PO (20:20)
[2024-07-03] VITALS (23 sets, daily range): BP systolic 109–157; BP diastolic 47–83; PULSE 63–86; RESP 16–30; TEMP 36.1–36.4; O2SAT 91–99
[2024-07-03] MEDS: IPRATROPIUM 0.5 MG/ALBUTEROL SULFATE 2.5 MG AMPUL.NEB 3 ML INHALATION ×3 (02:38→19:55)
[2024-07-03 05:33] LABS: Hematocrit 39.6 % (42.0-52.0); Hemoglobin 11.8 g/dL (14.0-18.0); Mean Corpuscular HGB Conc 29.8 g/dl (32-36); Mean Corpuscular Hemoglobin 29.1 pg (26-34); Mean Corpuscular Volume 97.8 fl (80-100); Mean Platelet Volume 10.3 fl (7.4-10.4); Platelet Count Result 130 k/mm3 (150-375); Red Blood Count 4.05 M/mm3 (4.6-6.20); Red Cell Distribution Width 15.9 % (11.5-14.5); White Blood Count 6.5 K/mm3 (4.5-10.0)
[2024-07-03 05:46] LABS: Blood Urea Nitrogen 29 mg/dL (9-20); Calcium 8.7 mg/dL (8.4-10.2); Carbon Dioxide > 40 mmol/L (22-30); Chloride 95 mmol/L (98-107); Estimated CRCL calculation 57 ml/min; Estimated Glomerular Filt Rate > 60; Glucose 103 mg/dL (65-110); Magnesium 1.9 mg/dL (1.6-2.3); Potassium 3.9 mmol/L (3.4-5.0); Sodium 138 mmol/L (137-145)
[2024-07-03] MEDS: SUCRALFATE 1 GM TABLET PO ×2 (06:14→16:13)
[2024-07-03] MEDS: LEVOTHYROXINE SODIUM 25 MCG TABLET PO (06:14)
[2024-07-03] MEDS: FLUTICASONE/SALMETEROL 45-21 MCG INHALER 1 PUFF 2 PUFF INHALATION ×2 (09:58→19:55)
[2024-07-03] MEDS: ACETYLCYSTEINE 20% INHAL SOLN 800 MG/4 ML VIAL 200 MG INHALATION ×2 (09:58→19:55)
--- NOTE | 2024-07-03 13:30 | PC.NURSE ---
To GI Lab per bed, IV saline locked. Report given to MAGALIS Ochoa.
--- NOTE | 2024-07-03 13:39 | PCOTNOTE ---
Attempted to see Patient for OT treatment session this P.M. Patient is out of the room, having a procedure done per nursing staff.
[2024-07-03] MEDS: LACTATED RINGERS 1,000 ML 150 ML IV CONT (13:42)
--- NOTE | 2024-07-03 14:40 | P.PNIM_ITS ---
Progress Note: A&P Assessment and Plan (1) Community acquired pneumonia: Code(s): J18.9 - Pneumonia, unspecified organism Status: Acute (2) COPD (chronic obstructive pulmonary disease): Code(s): J44.9 - Chronic obstructive pulmonary disease, unspecified Status: Acute (3) Obstructive sleep apnea: Code(s): G47.33 - Obstructive sleep apnea (adult) (pediatric) Status: Acute (4) Type 2 diabetes mellitus: Code(s): E11.9 - Type 2 diabetes mellitus without complications Status: Acute (5) Atrial fibrillation: Qualifiers: Atrial fibrillation type: unspecified Qualified Code(s): I48.91 - Unspecified atrial fibrillation Code(s): I48.91 - Unspecified atrial fibrillation Status: Acute (6) Non-small cell carcinoma of lung: Code(s): C34.90 - Malignant neoplasm of unspecified part of unspecified bronchus or lung Status: Acute Plan This is an 78-year-old male presenting from his [facility] facility for concerns of pneumonia that is worsening. Patient was recently diagnosed with pneumonia and started on doxycycline orally today. Does not normally require oxygen but now is presently requiring supplemental O2. His oxygen kept dropping it was around 85% in route to requiring up titration to 5 L as well as a DuoNeb treatment. On initial presentation patient does sound like he is having very coarse breath sounds and some mild respiratory distress. He does have very coarse breath sounds on auscultation and some wheezing. Endorses no chest pain, fever or chills but endorsing dyspnea. No history of blood clots and he takes Eliquis. He is saturating well on 5 L nasal cannula without any tachycardia or hypo/hypertension. he Was treated symptomatically with albuterol and ipratropium as well as steroids and magnesium sulfate. Ceftriaxone and doxycycline were administered IV. Laboratory evaluation showed Leukocytosis of 13.3. Electrolyte panel showed some CO2 retention with a bicarb of 36 which is chronic. BUN slightly elevated 35 with a creatinine 1.0. BNP only slightly elevated to 182. ECG shows sinus rhythm without any ST segment elevations, depressions or inversions. Normal QTC of 439. Normal PA interval. ABG 70.27/68/92/31 indicating respiratory acidosis. BiPAP was initiated. Chest x-ray showed chronic airspace opacities with volume loss involving right upper lobe and superior segment right lower lobe consistent with atelectasis in radiation pneumonitis. Mild airspace opacity in the mid and lower lung zones with worsening on the left consistent wi th atelectasis/scarring versus pneumonia. He has been started on BiPAP treatment. ABG continues to improve. Intolerant to BiPAP and was switched to CPAP last night. Unsure if you would be able to arrange CPAP for him without a sleep study. Pulmonary on board for recommendations Treated as COPD exacerbation with pneumonia With steroid received Solu-Medrol in the ER along with bronchodilators scheduled. I will switch Solu-Medrol to prednisone Continue antibiotics for pneumonia He had history of right middle lobe narrowing due to extrinsic compression and bronchoscopy was performed on 07/2023. DVT prophylaxis on apixaban Type 2 diabetes SSI COPD Chronic Congestive heart failure diastolic Coronary artery disease History of lung cancer History of atrial fibrillation hypothyroidism hypertension hyperlipidemia Code status: do not resuscitate Assuming care on 07/01/2024. Will discuss with pulmonology about the usefulness of CPAP machine on discharge. He had quite significant hypercapnia on admission. Also still requires O2 via n
[2024-07-03] MEDS: LIDOCAINE HCL 2% LOCAL INJ 20 ML VIAL 10 ML IRRIGATION (14:41)
--- NOTE | 2024-07-03 15:01 | SUR.OPER ---
7 ml lidocaine, 160 ml of NS irrigated per Dr Marin- 47 ml sent to pathology for BAL studies
[2024-07-03 15:15] LABS: Glucose Point of Care 72 mg/dl (65-105)
[2024-07-03 15:15] LABS: Glucose Point of Care 114 mg/dl (65-105)
--- NOTE | 2024-07-03 15:59 | PC.NURSE ---
This patient, Farhan Armstrong, was received from GI lab for bronchoscopy on 07/03/24 at 1559. Patient/family oriented to unit policies and routines.
[2024-07-03] MEDS: ACETAMINOPHEN 325 MG TABLET 650 MG PO (16:05)
[2024-07-03] MEDS: predniSONE 20 MG TABLET 40 MG PO (16:07)
[2024-07-03] MEDS: cefuroxime axetiL 250 MG TABLET 500 MG PO ×2 (16:08→20:12)
[2024-07-03] MEDS: buPROPion HCL XL (24 HR) 150 MG TABCR 300 MG PO (16:08)
[2024-07-03] MEDS: NITROFURANTOIN MONOHYD MACROCR 100 MG CAP PO ×2 (16:09→20:12)
[2024-07-03] MEDS: OLANZapine 5 MG TABLET PO ×2 (16:09→20:12)
[2024-07-03] MEDS: methADONE HCL (*CRX) 5 MG TABLET PO ×2 (16:09→20:12)
[2024-07-03] MEDS: FLUoxetine HCL 20 MG CAPSULE PO (16:09)
[2024-07-03] MEDS: DOXYCYCLINE HYCLATE 100 MG TABLET PO ×2 (16:09→20:12)
[2024-07-03] MEDS: PANTOPRAZOLE 40 MG TABLET PO (16:09)
[2024-07-03] MEDS: POTASSIUM CHLORIDE 20 MEQ PACKET (FOR LIQUID) PO (16:14)
[2024-07-03] MEDS: ASCORBIC ACID 500 MG TABLET PO (16:14)
[2024-07-03] MEDS: GABAPENTIN 100 MG CAPSULE PO (16:14)
[2024-07-03] MEDS: TAMSULOSIN HCL 0.4 MG CAPSULE PO (20:12)
[2024-07-03] MEDS: rOPINIRole HCL 1 MG TABLET PO (20:12)
[2024-07-03] MEDS: MIRTAZAPINE 15 MG TABLET PO (20:12)
[2024-07-04] VITALS (14 sets, daily range): BP systolic 113–115; BP diastolic 54–55; PULSE 67–91; RESP 20; TEMP 36.1–37; O2SAT 87–98
[2024-07-04] MEDS: IPRATROPIUM 0.5 MG/ALBUTEROL SULFATE 2.5 MG AMPUL.NEB 3 ML INHALATION ×3 (01:30→12:50)
[2024-07-04] MEDS: SUCRALFATE 1 GM TABLET PO ×2 (06:00→11:49)
[2024-07-04] MEDS: LEVOTHYROXINE SODIUM 25 MCG TABLET PO (06:00)
[2024-07-04] MEDS: ACETYLCYSTEINE 20% INHAL SOLN 800 MG/4 ML VIAL 200 MG INHALATION ×2 (07:29→12:50)
[2024-07-04] MEDS: FLUTICASONE/SALMETEROL 45-21 MCG INHALER 1 PUFF 2 PUFF INHALATION (07:30)
--- NOTE | 2024-07-04 07:34 | WPDANESPN ---
Anes - Prog Note Post-Op Date/Time: 07/04/24 07:34 Cardiovascular status: normal Respiratory status: normal Airway patency: baseline Mental status: baseline Post-Op hydration status: normal Vital Signs: Last Vital Signs Temp 36.1 C L 07/04/24 05:38 Pulse 73 07/04/24 07:31 Resp 20 07/04/24 07:31 BP 113/54 L 07/04/24 05:38 Pulse Ox 93 07/04/24 07:31 O2 Del Method Nasal Cannula 07/04/24 07:31 O2 Flow Rate 2 07/04/24 07:31 FiO2 40 06/29/24 01:32 Pain Score (VAS): 0 I/O: Intake & Output 07/03/24 07/03/24 07/04/24 15:59 23:59 07:59 Intake Total 840.0 270 500 Output Total 850 900 Balance 840.0 -580 -400 Laboratory Tests 07/03/24 05:21 07/03/24 05:21 07/03/24 07/03/24 14:18 15:07 POC Capillary Glucose 72 114 H Post-procedural complaints: none Patient Feedback: Patient satisfied with anesthetic care.
[2024-07-04] MEDS: cefuroxime axetiL 250 MG TABLET 500 MG PO (08:21)
[2024-07-04] MEDS: buPROPion HCL XL (24 HR) 150 MG TABCR 300 MG PO (08:22)
[2024-07-04] MEDS: OLANZapine 5 MG TABLET PO (08:22)
[2024-07-04] MEDS: DOXYCYCLINE HYCLATE 100 MG TABLET PO (08:22)
[2024-07-04] MEDS: ASCORBIC ACID 500 MG TABLET PO (08:22)
[2024-07-04] MEDS: ASPIRIN 81 MG ENTERIC TABLET PO (08:22)
[2024-07-04] MEDS: predniSONE 20 MG TABLET 40 MG PO (08:22)
[2024-07-04] MEDS: NITROFURANTOIN MONOHYD MACROCR 100 MG CAP PO (08:22)
[2024-07-04] MEDS: FLUoxetine HCL 20 MG CAPSULE PO (08:23)
[2024-07-04] MEDS: ACETAMINOPHEN 325 MG TABLET 650 MG PO ×2 (08:23→14:28)
[2024-07-04] MEDS: GABAPENTIN 100 MG CAPSULE PO ×2 (08:23→11:49)
[2024-07-04] MEDS: PANTOPRAZOLE 40 MG TABLET PO (08:23)
[2024-07-04] MEDS: MULTIVITAMINS /C LUTEIN (CENTRUM SILVER) TABLET *BKC 1 TAB PO (08:23)
[2024-07-04] MEDS: methADONE HCL (*CRX) 5 MG TABLET PO (08:24)
[2024-07-04] MEDS: BISACODYL 5 MG TABLET EC 10 MG PO (08:24)
[2024-07-04] MEDS: LACTULOSE 20 GM/30 ML UDC PO (08:24)
[2024-07-04] MEDS: POTASSIUM CHLORIDE 20 MEQ ER TABLET PO (09:02)
--- NOTE | 2024-07-04 11:30 | PM.PNPUL ---
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 He has no improvement after using Mucomyst and vest; the bronchoscopy yesterday did not shows cancer, few secretions were removed. This area is not expected to get better radiographically. He can go home on O2, this will be a new prescription. I called his son Harshal, told him about the procedure, chronic collapse of RUL. [phone] Patient feels better, not coughing. Continue pulmonary hygiene at [place]; does not need Mucomyst nebulized or vest therapy, however could use IS and/or Cornet or other vibratory device to help clear secretions. He was BiPAP initially as he has significant hypercapnia, then was switched to CPAP 7 by internet programmer; he did nto want to use PAP while he was here. Je is 78 years old. He has the right to refuse PAP. (2) Community acquired pneumonia: Code(s): J18.9 - Pneumonia, unspecified organism Status: Acute Assessment and Plan: RUL consolidation, area of cancer, and nothing was found in his airway although he appeared to have possible external compression last Jul. Has not smoked for > 20 years. He had elevated carboxyhemoglobin 3.1 on Jun 29, really has not smoked, so it is not clear why this is over 2.0. May have inhaled car exhaust or some other source. (3) COPD (chronic obstructive pulmonary disease): Code(s): J44.9 - Chronic obstructive pulmonary disease, unspecified Status: Acute Assessment and Plan: Last PFTS 06/25/2022, moderate obstructive pattern, no response to bronchodilators. He was on Symbicort prior to admission, can go home on same meds including albuterol and ipratropium nebulized. . 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 (5) Obstructive sleep apnea: Code(s): G47.33 - Obstructive sleep apnea (adult) (pediatric) Status: Acute Assessment and Plan: 08/18/2020 split night study = moderate obstructive sleep apnea, AHI of 25.4 during the baseline, extremely severe in non-supine REM with an index of 50.1, sustained hypoxemia with 89.2% of the baseline spent below 88%. He was treated with BiPAP 02/11. He has been on BiPAP here to maintain oxygenation, although he is not using this at the [facility]. He told me he does not want to use it, end of discussion. Plan Plan 1. He is stable after his bronchoscopy yesterday, white and clear secretions found. No information is present in the system yet regarding the fluid results. I called the lab; the order are in the system but the specimens do not seem to have made it to the lab. I spoke with Katty in the lab and Belia, director of endoscopy. Specimens were found, went to pathology first, and the car barn laborer will contact [facility] to see if these can go for the tests that were ordered, AFB, fungal, bacterial cultures. The
[2024-07-04] MEDS: acetaZOLAMIDE TAB 250 MG TABLET 500 MG PO (11:54)
--- NOTE | 2024-07-04 13:10 | PM.DS ---
DS: Admitting Diagnosis Discharge Date July 04, 2024 Admitting Diagnosis Shortness of breath, respiratory failure DS: Discharge Diagnosis Discharge Diagnosis (1) Acute hypoxic on chronic hypercapnic respiratory failure: Code(s): J96.01 - Acute respiratory failure with hypoxia; J96.12 - Chronic respiratory failure with hypercapnia Status: Acute (2) Community acquired pneumonia: Code(s): J18.9 - Pneumonia, unspecified organism Status: Acute (3) COPD (chronic obstructive pulmonary disease): Code(s): J44.9 - Chronic obstructive pulmonary disease, unspecified Status: Acute (4) History of lung cancer: Code(s): Z85.118 - Personal history of other malignant neoplasm of bronchus and lung Status: Acute (5) Urinary tract infection: Code(s): N39.0 - Urinary tract infection, site not specified Status: Acute (6) Obstructive sleep apnea: Code(s): G47.33 - Obstructive sleep apnea (adult) (pediatric) Status: Acute DS: Summary Hospital Course Hospital Course: H&P via Serafin Mirza MD This is an 78-year-old male with past medical history significant for chronic hypoxic respiratory failure on supplemental oxygen by nasal cannula, atrial fibrillation, congestive heart failure, COPD, coronary artery disease, type diabetes mellitus, diabetic polyneuropathy, hypothyroidism, non-small cell carcinoma of the lung, obstructive sleep apnea, restless leg syndrome. [facility] was brought to the emergency room for evaluation of shortness of breath, patient recently diagnosed with community-acquired pneumonia, patient requiring 5 L of supplemental oxygen, preliminary workup showed a pH of 7.27 pCO2 of 68 PO2 of 92. A chest x-ray was significant for infiltrate. Patient has been admitted for further evaluation management and treatment. 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 He has no improvement after using Mucomyst and vest; the bronchoscopy yesterday did not shows cancer, few secretions were removed. This area is not expected to get better radiographically. He can go home on O2, this will be a new prescription. I called his son Harshal, told him about the procedure, chronic collapse of RUL. [phone] Patient feels better, not coughing. Continue pulmonary hygiene at [place]; does not need Mucomyst nebulized or vest therapy, however could use IS and/or Cornet or other vibratory device to help clear secretions. He was BiPAP initially as he has significant hypercapnia, then was switched to CPAP 7 by director operations broadcast; he did nto want to use PAP while he was here. Je is 78 years old. He has the right to refuse PAP. (2) Community acquired pneumonia: Code(s): J18.9 - Pneumonia, unspecified organism Status: Acute Assessment and Plan: RUL consolidation, area of cancer, and nothing was found in his airway although he appeared to have possible external compression last Jul. Has not smoked for > 20 years. He had elevated carboxyhemoglobin 3.1 on Jun 29, really has not smoked, so it is not clear why this is over 2.0. May have inhaled car exhaust or some other source. (3) COPD (chronic obstructive pulmonary disease): Code(s): J44.9 - Chronic obstructive pulmonary disease, unspecified Status: Acute Assessment and Plan: Last PFTS 06/25/2022, moderate o
[2024-07-04 13:35] LABS: Appearance Bronchial Fluid Clear; Color Bronchial Fluid Colorless; Source Bronchial Fluid Bronchial Washings
[2024-07-04 13:38] LABS: Lymphocytes Bronchial Fluid 28 %; Neutrophils Bronchial Fluid 31 %
[2024-07-04 13:39] LABS: Eosinophils Bronchial Fluid 3 %; Monocytes Bronchial Fluid 38 %
[2024-07-04 13:41] LABS: Other Cells Bronchial Fluid 6 %
[2024-07-04 13:42] LABS: Macrophages Bronchial Fluid 0
== END 2024-07-04 16:24 | DRG 193 ==
LOC: ANHED 20:17 → ANH3MED 20:57
PROVIDERS: Internal Medicine; Internal Medicine Critical Care Medicine; Admitting Provider Internal Medicine; Emergency Provider Student in an Organized Health Care Education/Training Program; PCP Family Medicine; Visit Provider General Practice
PROC: 0BJ08ZZ Inspection of Tracheobronchial Tree, Via Natural or Artificial Opening Endoscopic (ICD-10-PCS; CPT 31622; principal; 2024-07-03 15:00)
DX: J18.9 Pneumonia, unspecified organism (principal); J96.01 Acute respiratory failure with hypoxia; N39.0 Urinary tract infection, site not specified; I48.20 Chronic atrial fibrillation, unspecified; J44.0 Chronic obstructive pulmonary disease with (acute) lower respiratory infection; J96.12 Chronic respiratory failure with hypercapnia; I50.9 Heart failure, unspecified; I35.0 Nonrheumatic aortic (valve) stenosis; I25.10 Atherosclerotic heart disease of native coronary artery without angina pectoris; E03.9 Hypothyroidism, unspecified; E78.00 Pure hypercholesterolemia, unspecified; E11.42 Type 2 diabetes mellitus with diabetic polyneuropathy; M79.7 Fibromyalgia; N40.0 Benign prostatic hyperplasia without lower urinary tract symptoms; M19.90 Unspecified osteoarthritis, unspecified site; G47.33 Obstructive sleep apnea (adult) (pediatric); G25.81 Restless legs syndrome; F32.A Depression, unspecified; I25.2 Old myocardial infarction; Z85.118 Personal history of other malignant neoplasm of bronchus and lung; Z79.82 Long term (current) use of aspirin; Z87.891 Personal history of nicotine dependence; Z99.81 Dependence on supplemental oxygen
CPT/HCPCS: 36415; 36600; 71045; 71046; 80048; 80053; 81001; 82375; 82805; 82948; 83050; 83735; 83880; 85025; 85027; 85055; 85999; 87015; 87070; 87077; 87086; 87088; 87102; 87116; 87186; 87205; 87206; 88108; 88305; 92610; 93005; 94002; 94003; 94640; 94669; 96365; 96367; 96375; 97161; 97165; 99285; A9270; J0330; J0696; J2704; J2919; J3475; J7040; J7120; J7512

== ENCOUNTER 2024-08-25 17:15 | Inpatient (IN) | payer MEDICARE, MEDICAID, SELFPAY ==
--- NOTE | ~2024-08-25 | XR_ITS ---
XR chest 1V portable Ordering provider: Francine Cheney APRN History: 78 years Male with . aspiration . Comparison: August 29, 2024 FINDINGS: Right Port-A-Cath with the tip overlying the superior vena cava. MEDIASTINUM: The cardiac silhouette is slightly enlarged. Congestive lenny. LUNGS: Atelectasis versus pneumonia in the right upper lobe unchanged from previous examination. No e ffusions or pneumothorax. Bilateral prominent markings with interstitial changes. OTHER: No free air under the diaphragm. IMPRESSION: No change from previous examination. Reviewed, dictated and finalized at location A.
--- NOTE | ~2024-08-25 | XR_ITS ---
MODIFIED ESOPHAGRAM HISTORY: Aspiration TECHNIQUE: Modified barium esophagram was performed on 09/01/2024. I administered fluoroscopy and per formed the exam with speech pathologist. Patient was seated for lateral fluoroscopic imaging for ing estion of thin liquids, pudding, solids and quantified amounts, followed by thin liquids in uncontrol led amounts. This was recorded on tape. A single fluoroscopic spot image was also recorded. The DAP f or this procedure was 2.629 Gycm2. The amount of fluoroscopy time used during this procedure was 4.4 minutes. FINDINGS: Oral stage: Adequate function. Pharyngeal stage: Reduced laryngeal elevation and tongue base retraction. There is both vallecular an d piriform sinus residue. Laryngeal penetration with aspiration with thin liquids. Cervical/esophageal stage: Adequate function. IMPRESSION: Pharyngeal dysphagia with laryngeal penetration and aspiration with thin liquids. Please correlate with speech pathologist findings and specific feeding recommendations. Reviewed, dictated and finalized at location A.
--- NOTE | ~2024-08-25 | XR_ITS ---
EXAM: XR abdomen gastric tube insert DATE: 08/29/2024 20:09 HISTORY: sob . COMPARISON: 07/29/2023; x-ray chest 08/29/2024. FINDINGS: Streaky bibasilar scar/atelectasis. NG tube, tip and side port projecting over the stomach . Normal upper abdominal bowel gas pattern. No organomegaly. No abnormal abdominal calcification. Deg enerative changes in the spine. IMPRESSION: NG tube, in good position. Reviewed, dictated and finalized at location K. IMPRESSION: NG tube, in good position.
--- NOTE | ~2024-08-25 | XR_ITS ---
EXAMINATION: XR abdomen/kub 1V DATE: 09/03/2024 09:07 INDICATION: Ileus TECHNIQUE: A supine view of the abdomen on 2 radiographs was obtained. COMPARISON: None. FINDINGS: Moderate amount of stool scattered throughout the colon. No dilated loops of gas-filled bowel to sugg est obstruction. Mild linear discoid atelectasis at the right lung base. Heart size is normal. Mild l umbar levorotoscoliosis with severe spondylosis. Mild to moderate bilateral hip osteoarthritis with p rominent subarticular cystlike change at the lateral left acetabulum. IMPRESSION: 1. Nonspecific bowel gas pattern with no dilated loops of bowel to suggest obstruction. Reviewed, dictated and finalized at location A. IMPRESSION: 1. Nonspecific bowel gas pattern with no dilated loops of bowel to suggest obst ruction.
--- NOTE | ~2024-08-25 | XR_ITS ---
Exam: Abdomen 2V HISTORY: rule out ileus COMPARISON: 08/26/2024. Reference was also made to CT examination of the abdomen and pelvis dated 08/25/2024 TECHNIQUE: Supine portable images of the abdomen and pelvis. FINDINGS: Significant fecal stasis, visualized throughout the colon and distending the rectum. Multiple loops of dilated small and large bowel within the central abdomen. Redemonstration of both air and fluid opacification of the stomach, unchanged from CT examination per formed 2 days earlier. IMPRESSION: Redemonstration of both fecal impaction and bowel dilatation, as detailed above. Reviewed, dictated and finalized at location A. IMPRESSION: Redemonstration of both fecal impaction and bowel dilatation, as detailed above .
--- NOTE | ~2024-08-25 | CT_ITS ---
CT brain wo con Ordering provider: Elliot Merida III DO History: 78 years Male with . altered mental state . Comparison: October 16, 2022 Technique: CT of the head without contrast. Radiation reduction technique utilized.The dose-length product was 1362.0 mGy-cm. FINDINGS: BRAIN PARENCHYMA AND CSF SPACES: Mild leukoaraiosis and diffuse cortical atrophy. Mild atheromatous d isease. No midline shift, mass effect or hemorrhage. The brain parenchyma and CSF spaces are otherwi se normal. VISUALIZED PARANASAL SINUSES: Well aerated. MASTOIDS: Fluid is seen in the posterior aspect of the left mastoid air cells unchanged. BONES: The bones appear intact. SOFT TISSUES: Visualized nasopharynx is normal. Superficial soft tissues are normal. IMPRESSION: No acute intracranial findings. Reviewed, dictated and finalized at location A.
--- NOTE | ~2024-08-25 | XR_ITS ---
XR abdomen/kub 1V Ordering provider: Serafin Mirza MD History: . distended abdomen . Comparison: None. FINDINGS: BOWEL: Fecal material is seen in the colon. Fecal material is also seen below the pubic rami possibil ity of hernia with bowel content cannot be excluded. This also may be outside the body. Nonobstructiv e bowel gas pattern. ORGANOMEGALY: None. SIGNIFICANT PATHOLOGIC CALCIFICATIONS: Calcifications seen in the right renal area versus contrast. OTHER: No free air is seen under the diaphragm. Degenerative the spine.. Barnard catheter is seen in the bladder with residual contrast. Bilateral hip osteoarthritic changes IMPRESSION: NO ACUTE ABDOMINAL FINDINGS. Constipation. Reviewed, dictated and finalized at location A.
--- NOTE | ~2024-08-25 | XR_ITS ---
EXAMINATION: XR abdomen/kub 1V DATE: 09/01/2024 15:11 INDICATION: Constipation. TECHNIQUE: A supine view of the abdomen on 2 radiographs was obtained. COMPARISON: CT abdomen and pelvis 08/25/2024 FINDINGS: The rectum is distended. There is a moderate volume of stool in the colon. IMPRESSION: 1. Distended rectum, consistent with adynamic ileus. Reviewed, dictated and finalized at location A.
--- NOTE | ~2024-08-25 | CT_ITS ---
CT abdomen pelvis w con Ordering provider: Elliot Merida III, DO History: 78 years Male with . abdominal pain and vomiting . Comparison: July 25, 2023 Technique: CT abdomen and pelvis with IV and without oral contrast. Automated exposure control and it erative reconstruction technique were employed. The dose-length product was 1382.60 mGy-cm. 100 mL Om nipaque 350 was given IV. Findings: VISUALIZED LOWER CHEST: Focal Atelectatic changes in the right lung base posteriorly. Pneumonia is no t excluded. Calcification is seen in the right medial pleura. UPPER ABDOMINAL ORGANS: Liver: Normal. Gallbladder: Cholelithiasis with small cyst stones seen near to the neck of the gallbladder. Spleen: Normal. Stomach/duodenum: Normal. Pancreas: Atrophic. Adrenals: Prominent lateral limb of the left adrenal gland. Kidneys: Tiny cyst in the left kidney mid pole. PELVIC ORGANS: The bladder is underfilled with Barnard's catheter. Air is seen in the bladder.. BOWEL AND MESENTERY: Colon: No evidence of diverticulitis. Fecal material is seen in the rectum. The colon is loaded with fecal material suggestive of contrast patient. Normal appendix. Small Bowel: Normal. No obstruction. Peritoneum/mesentery: No free air or free fluid. No mesenteric lymphadenopathy. RETROPERITONEUM: Moderate atheromatous disease of the abdominal aorta. No retroperitoneal lymphaden opathy. Collateral vessels are seen in the left para-aortic area and connected to the portal vein. Misbah MUSCULOSKELETAL: Superficial soft tissues: Bilateral fat containing inguinal hernias. The superficial soft tissues are normal. Bones: Multiple lytic lesions are seen in the proximal right and left femur. Similar appearances seen in the left iliac bone. Lytic and sclerotic changes are seen in the spine. Clinical correlation and further evaluation advised. Severe degenerative changes of the spine. Levoscoliosis. IMPRESSION: 1. Cholelithiasis. 2. Constipation. Bilateral fat containing inguinal hernias. 3. Lytic lesion seen in the proximal right and left femur and also in the left iliac bone. Areas of sclerotic and lytic changes are seen in the spine. Further evaluation advised. 4. Levoscoliosis with severe degenerative spine. Reviewed, dictated and finalized at location A. IMPRESSION: 1. Cholelithiasis. 2. Constipation. Bilateral fat containing inguinal hernias. 3. Lytic lesion seen in the proximal right and left femur and also in the left iliac bone. Areas of sclerotic and lytic changes are seen in the spine. Furthe r evaluation advised. 4. Levoscoliosis with severe degenerative spine.
--- NOTE | ~2024-08-25 | XR_ITS ---
EXAMINATION: XR chest 1V portable Exam Date/Time: 08/29/2024 16:50 CDT HISTORY: wet, check for aspiration Comparison: 07/04/2024. RESULT: Lines, tubes, and devices: Right chest implanted port, tip at the cavoatrial junction. Lungs and pleura: Leftward rotation. Mild motion artifact. Right upper lobe opacity and volume loss c onsistent with prior surgery/radiation change. Chronic right medial basilar scarring. Cardiomediastinal silhouette: Stable. Other: No acute osseous or upper abdominal finding. IMPRESSION: No acute cardiopulmonary process. Reviewed, dictated and finalized at location K.
--- NOTE | ~2024-08-25 | XR_ITS ---
XR abdomen/kub 1V 08/26/2024 14:02 Indication: Constipation Procedure: KUB Comparison: Comparison to multiple prior studies sequentially, with oldest reviewed study dated 08/01. Findings: Bowel gas pattern is nonspecific with moderate gas in the colon. Moderate colonic fecal joshua ding. Generalized osteopenia. No acute osseous abnormality. There is severe lumbar spondylosis with l evoscoliosis. No abnormal calcifications. Impression: 1: Moderately dilated colon, possibly ileus. Moderate colonic fecal loading. Reviewed, dictated and finalized at location B. Impression: 1: Moderately dilated colon, possibly ileus. Moderate colonic fecal loading.
[2024-08-25 17:15] VITALS: BP 159/89; PULSE 102; RESP 24; TEMP 37.2; O2SAT 96
[2024-08-25 17:42] LABS: Basophils Percent Auto 0.3 % (0.2-1.2); Eosinophils Percent Auto 0.1 % (0-4.4); Hematocrit 39.7 % (42.0-52.0); Hemoglobin 12.3 g/dL (14.0-18.0); Immature Granulocyte Absolute 0.07 K/mm3 (0.00-0.031); Immature Granulocyte Percent A 0.5 % (0-0.5); Lymphocytes Absolute Auto 0.44 K/mm3 (0.9-3.2); Mean Corpuscular Hemoglobin 30.8 pg (26-34); Mean Corpuscular Volume 99.5 fl (80-100); Monocytes Absolute Auto 0.4 K/mm3 (0.1-0.6); Monocytes Percent Auto 2.8 % (2.6-8.5); Neutrophils Absolute Auto 13.9 K/mm3 (1.3-6.7); Neutrophils Percent Auto 93.3 % (45.5-73.1); Platelet Count Result 133 k/mm3 (150-375); Red Blood Count 3.99 M/mm3 (4.6-6.20); Red Cell Distribution Width 13.2 % (11.5-14.5); White Blood Count 14.9 K/mm3 (4.5-10.0)
[2024-08-25 17:55] LABS: Alanine Aminotransferase 11 U/L (6-50); Albumin Level 3.7 g/dL (3.5-5.1); Alkaline Phosphatase 88 U/L (38-126); Anion Gap 5 mmol/L (4-12); Aspartate Amino Transferase 19 U/L (17-59); Bilirubin,Total 0.8 mg/dL (0.2-1.3); Blood Urea Nitrogen 22 mg/dL (9-20); Calcium 9.1 mg/dL (8.4-10.2); Carbon Dioxide 37 mmol/L (22-30); Chloride 94 mmol/L (98-107); Estimated CRCL calculation 64 ml/min; Estimated Glomerular Filt Rate > 60; Glucose 156 mg/dL (65-110); Lipase 12 U/L (23-300); Sodium 136 mmol/L (137-145)
[2024-08-25 17:58] LABS: Add Urine Microscopic? YES; Appearance Urine Turbid (Clear); Bacteria Urine 4+ /hpf; Bilirubin Urine Negative (Negative); Blood Urine 1+ (Negative); Color Urine Yellow (Yellow); Glucose Urine UA Negative (Negative); Ketones Urine 2+ mg/dL (Negative); Leukocyte Esterase Ur 3+ LEU/UL (Negative); Need Manual Microscopic Reviewed; Nitrate Urine Positive (Negative); Non Pathogenic Casts >20; Protein Urine 2+ mg/dL (Negative); Specific Grav Ur 1.019 (1.001-1.035); Squamous Epithelial Cell Urine None Seen /hpf (Few); Triple Phosphate Crystal Urine Present /hpf; WBC Urine >100 /hpf (0-3)
--- NOTE | 2024-08-25 18:10 | ED.ABDPAIN ---
HPI - Abdominal Pain General Chief Complaint: Abdominal Pain <Elliot Merida III, DO - Last Filed: 08/25/24 18:55> Stated Complaint: Abd pain, N/V <Elliot Merida III, DO - Last Filed: 08/25/24 18:55> Time Seen by Provider: 08/25/24 17:50 <Elliot Merida III, DO - Last Filed: 08/25/24 18:55> History of Present Illness HPI narrative: Pt presents from local MD with episode of emesis and reported complaint of abdominal pain. Pt is not responding here so difficult to obtain any history. <Elliot Merida III, DO - Last Filed: 08/25/24 18:55> Related Data Home Medications: Home Medications Medication Instructions Recorded Confirmed ropinirole 1 mg tablet 1 mg PO HS 12/18/19 08/25/24 bupropion HCl 300 mg 24 hr tablet, 150 mg PO DAILY 03/09/21 08/25/24 extended release tamsulosin 0.4 mg capsule 0.4 mg PO HS 02/26/22 08/25/24 albuterol sulfate 90 mcg/actuation 1 puff inhalation Q4H PRN 07/27/22 08/25/24 aerosol inhaler Shortness Of Breath ondansetron 8 mg disintegrating 8 mg PO Q8H PRN Nausea 08/10/22 08/25/24 tablet Pro-Stat Sugar Free 30 ml PO DAILY 03/23/23 08/25/24 acetaminophen 325 mg tablet 650 mg PO Q6H PRN Pain, Mild 03/23/23 08/25/24 ascorbic acid (vitamin C) 500 mg 500 mg PO BID 03/23/23 08/25/24 tablet bisacodyl 5 mg tablet,delayed 10 mg PO BID 03/23/23 08/25/24 release (Dulcolax (bisacodyl)) lactulose 10 gram/15 mL oral 20 g PO TID 03/23/23 08/25/24 solution methadone 5 mg tablet 5 mg PO BID 03/23/23 08/25/24 multivit with minerals-iron 18 1 tablet PO DAILY 03/23/23 08/25/24 mg-folic ac 400 mcg-vit K 25 mcg tablet (Adults Multivitamin) levalbuterol HCl 1.25 mg/3 mL 1.25 mg inhalation Q6H PRN SOB 07/23/23 08/25/24 solution for nebulization levothyroxine 25 mcg tablet 25 mcg PO DAILY 07/23/23 08/25/24 polyethylene glycol 3350 17 gram 17 g PO DAILY PRN Constipation 07/23/23 08/25/24 oral powder packet (Miralax) sucralfate 1 gram tablet (Carafate) 1 g PO TID 07/23/23 08/25/24 trimethobenzamide 100 mg/mL 100 mg IM ONCE PRN migraines 07/23/23 08/25/24 intramuscular solution (Tigan) fluoxetine 20 mg capsule 20 mg PO DAILY 06/28/24 08/25/24 olanzapine 5 mg tablet 5 mg PO BID 06/28/24 08/25/24 potassium chloride 20 mEq 20 meq PO BID 07/04/24 08/25/24 tablet,extended release clopidogrel 75 mg tablet (Plavix) 75 mg PO DAILY 08/25/24 08/25/24 diphenhydramine HCl 25 mg tablet 25 mg PO TID PRN allergies 08/25/24 08/25/24 (Benadryl Allergy) mirtazapine 15 mg tablet (Remeron) 15 mg PO HS 08/25/24 08/25/24 polyethylene glycol 3350 17 17 g PO DAILY 08/25/24 08/25/24 gram/dose oral powder (Miralax) trospium 20 mg tablet 20 mg PO BID 08/25/24 08/25/24 <Elliot Merida III, DO - Last Filed: 08/25/24 18:55> Allergies/Adverse Reactions: Allergies Allergy/AdvReac Type Severity Reaction Status Date / Time Penicillins Allergy Unknown SHORTNESS Verified 08/25/24 17:27 OF BREATH <Elliot Merida III, DO - Last Filed: 08/25/24 18:55> Review of Systems Review of Systems: ROS unobtainable: Yes unobtainable due to mental status <Elliot Merida III, DO - Last Filed: 08/25/24 18:55> [facility] Past Medical History Medical History: Medical History Aortic valve stenosis Arthritis (03/26/19) Atrial fibrillation with controlled ventricular rate Benign prostatic hyperplasia Chronic congestive heart failure Chronic obstructive pulmonary disease Coronary artery disease (2019) Non-STEMI - left heart cath showed mild coronary artery disease with severe LV dysfunction EF 20% with possible underlying nonischemic cardiomyopathy, no PCI. Depression Diabetes mellitus Diabetic polyneuropathy associated with type 2 diabetes mellitus Fibromyalgia Hypothyroidism Mixed hyperlipidemia Non-small cell carcinoma of lung Status post chemo radiation. Obstructive sleep apnea Restless legs syndrome Sacral d
[2024-08-25] MEDS: cefTRIAXone 2 GM/NS 100 ML 2 GM/100 ML BAG IVPB (18:46)
[2024-08-25 18:47] VITALS: BP 145/78; PULSE 92; RESP 20; O2SAT 97
[2024-08-25 20:35] VITALS: PULSE 95; RESP 27; O2SAT 94
[2024-08-25 20:59] VITALS: BP 133/82; PULSE 91; RESP 20; TEMP 37.6; O2SAT 95
--- NOTE | 2024-08-25 21:00 | PM.IMHP ---
H&P: HPI History of Present Illness Date/Time: 08/25/24 21:00 Chief Complaint: nausea/vomiting Narrative: This is an 78-year-old male with past medical history significant for dementia, COPD, bed ridden, wheelchair-bound, chronic Barnard catheter, chronic systolic heart failure, paroxysmal atrial fibrillation, patient is a [facility] resident. Was brought to the emergency room today for evaluation due to nausea and vomiting. Most of the history has been obtained upon reviewing medical records and emergency room physician. Preliminary workup was significant for urinalysis with numerous WBCs present. Abdominal x-ray showed constipation. CT abdomen pelvis w con Ordering provider: Elliot Merida III, DO History: 78 years Male with . abdominal pain and vomiting . Comparison: July 25, 2023 Technique: CT abdomen and pelvis with IV and without oral contrast. Automated exposure control and iterative reconstruction technique were employed. The dose-length product was 1382.60 mGy-cm. 100 mL Omnipaque 350 was given IV. Findings: VISUALIZED LOWER CHEST: Focal Atelectatic changes in the right lung base posteriorly. Pneumonia is not excluded. Calcification is seen in the right medial pleura. UPPER ABDOMINAL ORGANS: Liver: Normal. Gallbladder: Cholelithiasis with small cyst stones seen near to the neck of the gallbladder. Spleen: Normal. Stomach/duodenum: Normal. Pancreas: Atrophic. Adrenals: Prominent lateral limb of the left adrenal gland. Kidneys: Tiny cyst in the left kidney mid pole. PELVIC ORGANS: The bladder is underfilled with Barnard's catheter. Air is seen in the bladder.. BOWEL AND MESENTERY: Colon: No evidence of diverticulitis. Fecal material is seen in the rectum. The colon is loaded with fecal material suggestive of contrast patient. Normal appendix. Small Bowel: Normal. No obstruction. Peritoneum/mesentery: No free air or free fluid. No mesenteric lymphadenopathy. RETROPERITONEUM: Moderate atheromatous disease of the abdominal aorta. No retroperitoneal lymphadenopathy. Collateral vessels are seen in the left para-aortic area and connected to the portal vein. Misbah MUSCULOSKELETAL: Superficial soft tissues: Bilateral fat containing inguinal hernias. The superficial soft tissues are normal. Bones: Multiple lytic lesions are seen in the proximal right and left femur. Similar appearances seen in the left iliac bone. Lytic and sclerotic changes are seen in the spine. Clinical correlation and further evaluation advised. Severe degenerative changes of the spine. Levoscoliosis. IMPRESSION: 1. Cholelithiasis. 2. Constipation. Bilateral fat containing inguinal hernias. 3. Lytic lesion seen in the proximal right and left femur and also in the left iliac bone. Areas of sclerotic and lytic changes are seen in the spine. Further evaluation advised. 4. Levoscoliosis with severe degenerative spine. CT brain wo con Ordering provider: Elliot Merida III, History: 78 years Male with . altered mental state . Comparison: October 16, 2022 Technique: CT of the head without contrast. Radiation reduction technique utilized.The dose-length product was 1362.0 mGy-cm. FINDINGS: BRAIN PARENCHYMA AND CSF SPACES: Mild leukoaraiosis and diffuse cortical atrophy. Mild atheromatous disease. No midline shift, mass effect or hemorrhage. The brain parenchyma and CSF spaces are otherwise normal. VISUALIZED PARANASAL SINUSES: Well aerated. MASTOIDS: Fluid is seen in the posterior aspect of the left mastoid air cells unchanged. BONES: The bones appear intact. SOFT TISSUES: Visualized nasopharynx is normal. Superficial soft tissues are normal. IMPRESSION: No acute intracranial findings. Review of Systems Review of Systems: ROS unobtainable: Yes unobtainable due to medical condition ( dementia) [facility] Past Medical History Medical History (Reviewed 06/28/24 @ 18:37 by Supa Hendrix
[2024-08-25 22:00] VITALS: BP 143/89; PULSE 95; RESP 18; TEMP 37.4; O2SAT 95
[2024-08-25 22:10] VITALS: BMI 28.5
[2024-08-26] VITALS (13 sets, daily range): BP systolic 125–132; BP diastolic 66–74; PULSE 79–99; RESP 18–22; TEMP 36.8–37.3; O2SAT 95–98; BMI 28.5
[2024-08-26] MEDS: LEVALBUTEROL NEB 1.25 MG/3 ML INHALATION (00:23)
[2024-08-26] MEDS: levoFLOXacin 500 MG/D5W 100 ML 500 MG/100 ML BAG 100 MG IVPB (01:14)
[2024-08-26] MEDS: LEVOTHYROXINE SODIUM 25 MCG TABLET PO (05:57)
[2024-08-26] MEDS: buPROPion HCL XL (24 HR) 150 MG TABCR PO (08:10)
[2024-08-26] MEDS: CLOPIDOGREL BISULFATE 75 MG TABLET PO (08:10)
[2024-08-26] MEDS: FLUoxetine HCL 20 MG CAPSULE PO (08:10)
[2024-08-26] MEDS: PANTOPRAZOLE 40 MG TABLET PO (08:10)
[2024-08-26] MEDS: GABAPENTIN 100 MG CAPSULE PO ×3 (08:11→16:49)
[2024-08-26] MEDS: methADONE HCL (*CRX) 5 MG TABLET PO ×2 (08:11→16:49)
[2024-08-26] MEDS: polyethylene glycoL 3350 17 GM POWD.PACK PO (08:11)
[2024-08-26] MEDS: LACTULOSE 20 GM/30 ML UDC PO ×3 (08:11→16:49)
[2024-08-26] MEDS: SUCRALFATE 1 GM TABLET PO ×3 (08:11→16:49)
[2024-08-26] MEDS: OLANZapine 5 MG TABLET PO ×2 (08:14→16:49)
[2024-08-26 09:13] LABS: Basophils Percent Auto 0.3 % (0.2-1.2); Eosinophils Absolute Auto 0.5 K/mm3 (0-0.3); Eosinophils Percent Auto 5.1 % (0-4.4); Immature Granulocyte Absolute 0.04 K/mm3 (0.00-0.031); Immature Granulocyte Percent A 0.4 % (0-0.5); Lymphocytes Absolute Auto 0.53 K/mm3 (0.9-3.2); Lymphocytes Percent Auto 5.6 % (18.3-44.2); Mean Corpuscular HGB Conc 30.6 g/dl (32-36); Mean Corpuscular Hemoglobin 30.5 pg (26-34); Mean Corpuscular Volume 99.7 fl (80-100); Mean Platelet Volume 9.8 fl (7.4-10.4); Monocytes Absolute Auto 0.7 K/mm3 (0.1-0.6); Monocytes Percent Auto 7.7 % (2.6-8.5); Neutrophils Absolute Auto 7.7 K/mm3 (1.3-6.7); Neutrophils Percent Auto 80.9 % (45.5-73.1); Platelet Count Result 125 k/mm3 (150-375); Red Blood Count 3.61 M/mm3 (4.6-6.20); Red Cell Distribution Width 13.2 % (11.5-14.5); White Blood Count 9.5 K/mm3 (4.5-10.0)
[2024-08-26 09:25] LABS: Alanine Aminotransferase 9 U/L (6-50); Albumin Level 3.2 g/dL (3.5-5.1); Alkaline Phosphatase 63 U/L (38-126); Aspartate Amino Transferase 17 U/L (17-59); Bilirubin,Total 0.4 mg/dL (0.2-1.3); Blood Urea Nitrogen 22 mg/dL (9-20); Calcium 8.4 mg/dL (8.4-10.2); Carbon Dioxide > 40 mmol/L (22-30); Chloride 98 mmol/L (98-107); Estimated CRCL calculation 64 ml/min; Estimated Glomerular Filt Rate > 60; Glucose 110 mg/dL (65-110); Magnesium 1.6 mg/dL (1.6-2.3); Potassium 3.9 mmol/L (3.4-5.0); Sodium 138 mmol/L (137-145)
--- NOTE | 2024-08-26 12:17 | PM.IMPN ---
Progress Note: A&P Assessment and Plan (1) Urinary tract infection: Code(s): N39.0 - Urinary tract infection, site not specified Status: Acute Assessment and Plan: patient started on levofloxacin 500 mg ivpb q 24 urine culture pending. exchange Barnard White blood cells improved from 14.9> 9.5. (2) COPD (chronic obstructive pulmonary disease): Code(s): J44.9 - Chronic obstructive pulmonary disease, unspecified Status: Chronic Assessment and Plan: stable continue home med (3) Constipation: Code(s): K59.00 - Constipation, unspecified Status: Acute Assessment and Plan: bowel regimen- Lactulose 20 gm PO TID. Last BM 08/26 KUB today showed:Impression: 1: Moderately dilated colon, possibly ileus. Moderate colonic fecal loading. Give soap suds enema (4) Atrial fibrillation with controlled ventricular rate: Code(s): I48.91 - Unspecified atrial fibrillation Status: Chronic Assessment and Plan: rate controlled (5) Chronic diastolic heart failure: Code(s): I50.32 - Chronic diastolic (congestive) heart failure Status: Acute Assessment and Plan: appears euvolemic (6) Methadone use: Code(s): F11.20 - Opioid dependence, uncomplicated Status: Acute Assessment and Plan: continue methadone (7) Obstructive sleep apnea: Code(s): G47.33 - Obstructive sleep apnea (adult) (pediatric) Status: Acute Assessment and Plan: CPAP at nighttime Subjective Date/time seen: 08/26/24 12:17 Interval history: Patient denies chest pain, shortness of breath, or palpitations. Review of Systems Review of Systems: All systems reviewed & are unremarkable except as noted in HPI and below Exam Const: General: comfortable and no acute distress Resp: Effort & Inspection: normal respiratory effort Auscultation: clear to auscultation bilaterally Cardio: Rate: regular rate Rhythm: regular rhythm GI: Auscultation: normal bowel sounds Other: semi firm Skin: General skin exam: no rashes or lesions noted Neuro: Other: wheelchair bound. A&Ox3. Extrem: General: normal to inspection and no edema Objective Data Vital Signs Vital Signs: Vital Signs - 24 hr 08/25/24 17:15 08/25/24 18:47 08/25/24 20:35 Temperature 99.0 F Pulse Rate 102 H 92 95 Respiratory Rate 24 H 20 27 H Blood Pressure 159/89 H 145/78 H Pulse Oximetry 96 97 94 Oxygen Delivery Nasal Cannula Oxygen Flow Rate 3 Fraction of Inspired Oxygen 08/25/24 20:59 08/25/24 22:00 08/26/24 00:20 Temperature 99.6 F 99.3 F Pulse Rate 91 95 98 Respiratory Rate 20 18 18 Blood Pressure 133/82 143/89 H Pulse Oximetry 95 95 Oxygen Delivery Oxygen Flow Rate Fraction of Inspired Oxygen 08/26/24 00:33 08/26/24 00:15 08/26/24 00:35 Temperature Pulse Rate 99 99 99 Respiratory Rate 18 22 H Blood Pressure Pulse Oximetry 95 95 Oxygen Delivery Nasal Cannula CPAP Oxygen Flow Rate 3 Fraction of Inspired Oxygen 08/26/24 06:00 08/26/24 07:59 08/26/24 08:26 Temperature 99.1 F Pulse Rate 88 Respiratory Rate 18 Blood Pressure 132/66 Pulse Oximetry 97 95 95 Oxygen Delivery Nasal Cannula Nasal Cannula Oxygen Flow Rate 3 3 Fraction of Inspired Oxygen 32 Intake/Output Intake/Output: Intake & Output 08/23/24 08/24/24 08/25/24 08/26/24 23:59 23:59 23:59 23:59 Intake Total 100 270 Output Total 300 Balance 100 -30 Meds/Results Medications: Active Medications Generic Name Dose Route Start Last Admin Trade Name Freq PRN Reason Stop Dose Admin Albuterol 1 puff 08/25/24 23:20 Albuterol Sulfate (*Sp) Aerosol 1 Puff INHALATION Q4HRT PRN Shortness Of Breath Bupropion HCl 150 mg 08/26/24 09:00 08/26/24 08:10 Bupropion Hcl Xl (24 Hr) 150 Mg Tabcr PO 150 mg DAILY JILLIAN Administration Clopidogrel Bisulfate 75 mg
[2024-08-26] MEDS: TOLTERODINE TARTRATE LA 4 MG CAP.ER.24H PO (15:15)
[2024-08-26] MEDS: FLUTICASONE/SALMETEROL 45-21 MCG INHALER 1 PUFF 2 PUFF INHALATION (19:59)
[2024-08-26] MEDS: TAMSULOSIN HCL 0.4 MG CAPSULE PO (20:05)
[2024-08-26] MEDS: MIRTAZAPINE 15 MG TABLET PO (20:05)
[2024-08-26] MEDS: rOPINIRole HCL 1 MG TABLET PO (20:05)
[2024-08-27] VITALS (7 sets, daily range): BP systolic 102–110; BP diastolic 65–97; PULSE 76–91; RESP 16–18; TEMP 36.6–37; O2SAT 92–97
[2024-08-27] MEDS: levoFLOXacin 500 MG/D5W 100 ML 500 MG/100 ML BAG 100 MG IVPB (00:05)
[2024-08-27] MEDS: LEVOTHYROXINE SODIUM 25 MCG TABLET PO (05:20)
[2024-08-27 05:56] LABS: Basophils Percent Auto 0.3 % (0.2-1.2); Eosinophils Absolute Auto 0.6 K/mm3 (0-0.3); Eosinophils Percent Auto 6.3 % (0-4.4); Hematocrit 35.7 % (42.0-52.0); Hemoglobin 10.7 g/dL (14.0-18.0); Immature Granulocyte Absolute 0.05 K/mm3 (0.00-0.031); Immature Granulocyte Percent A 0.5 % (0-0.5); Immature Platelet Fraction Pct 3.2 % (0.9-11.2); Lymphocytes Percent Auto 6.2 % (18.3-44.2); Mean Corpuscular Hemoglobin 30.2 pg (26-34); Mean Corpuscular Volume 100.8 fl (80-100); Mean Platelet Volume 10.1 fl (7.4-10.4); Monocytes Absolute Auto 0.6 K/mm3 (0.1-0.6); Monocytes Percent Auto 6.5 % (2.6-8.5); Neutrophils Absolute Auto 7.7 K/mm3 (1.3-6.7); Neutrophils Percent Auto 80.2 % (45.5-73.1); Platelet Count Result 130 k/mm3 (150-375); Red Blood Count 3.54 M/mm3 (4.6-6.20); Red Cell Distribution Width 13.2 % (11.5-14.5); White Blood Count 9.7 K/mm3 (4.5-10.0)
[2024-08-27 06:45] LABS: Alanine Aminotransferase 9 U/L (6-50); Alkaline Phosphatase 60 U/L (38-126); Anion Gap -2 mmol/L (4-12); Aspartate Amino Transferase 17 U/L (17-59); Bilirubin,Total 0.3 mg/dL (0.2-1.3); Blood Urea Nitrogen 21 mg/dL (9-20); Calcium 8.2 mg/dL (8.4-10.2); Carbon Dioxide 39 mmol/L (22-30); Chloride 99 mmol/L (98-107); Estimated CRCL calculation 64 ml/min; Estimated Glomerular Filt Rate > 60; Glucose 84 mg/dL (65-110); Magnesium 1.7 mg/dL (1.6-2.3); Sodium 136 mmol/L (137-145)
[2024-08-27] MEDS: FLUTICASONE/SALMETEROL 45-21 MCG INHALER 1 PUFF 2 PUFF INHALATION ×2 (07:21→19:22)
[2024-08-27] MEDS: buPROPion HCL XL (24 HR) 150 MG TABCR PO (10:01)
[2024-08-27] MEDS: CLOPIDOGREL BISULFATE 75 MG TABLET PO (10:01)
[2024-08-27] MEDS: SUCRALFATE 1 GM TABLET PO ×3 (10:01→17:17)
[2024-08-27] MEDS: methADONE HCL (*CRX) 5 MG TABLET PO ×2 (10:01→17:17)
[2024-08-27] MEDS: OLANZapine 5 MG TABLET PO ×2 (10:01→17:17)
[2024-08-27] MEDS: polyethylene glycoL 3350 17 GM POWD.PACK PO (10:01)
[2024-08-27] MEDS: TOLTERODINE TARTRATE LA 4 MG CAP.ER.24H PO (10:01)
[2024-08-27] MEDS: GABAPENTIN 100 MG CAPSULE PO ×3 (10:01→17:17)
[2024-08-27] MEDS: FLUoxetine HCL 20 MG CAPSULE PO (10:01)
[2024-08-27] MEDS: PANTOPRAZOLE 40 MG TABLET PO (10:01)
[2024-08-27] MEDS: LACTULOSE 20 GM/30 ML UDC PO ×3 (10:02→17:17)
--- NOTE | 2024-08-27 11:11 | PM.IMPN ---
Progress Note: A&P Assessment and Plan (1) Urinary tract infection: Code(s): N39.0 - Urinary tract infection, site not specified Status: Acute Assessment and Plan: patient started on levofloxacin 500 mg ivpb q 24 urine culture negative. exchange Barnard White blood cells improved from 14.9> 9.7. (2) COPD (chronic obstructive pulmonary disease): Code(s): J44.9 - Chronic obstructive pulmonary disease, unspecified Status: Chronic Assessment and Plan: stable continue home med (3) Constipation: Code(s): K59.00 - Constipation, unspecified Status: Acute Assessment and Plan: bowel regimen- Lactulose 20 gm PO TID. Last BM 08/26 KUB today showed:Impression: 1: Moderately dilated colon, possibly ileus. Moderate colonic fecal loading. Received a soap suds enema 08/26/24 with results. (4) Atrial fibrillation with controlled ventricular rate: Code(s): I48.91 - Unspecified atrial fibrillation Status: Chronic Assessment and Plan: rate controlled (5) Chronic diastolic heart failure: Code(s): I50.32 - Chronic diastolic (congestive) heart failure Status: Acute Assessment and Plan: appears euvolemic (6) Methadone use: Code(s): F11.20 - Opioid dependence, uncomplicated Status: Acute Assessment and Plan: continue methadone (7) Obstructive sleep apnea: Code(s): G47.33 - Obstructive sleep apnea (adult) (pediatric) Status: Acute Assessment and Plan: CPAP at nighttime Subjective Date/time seen: 08/27/24 11:11 Interval history: Patient denies chest pain, shortness of breath, abdominal pain, nausea, vomiting, or palpitations. Review of Systems Review of Systems: All systems reviewed & are unremarkable except as noted in HPI and below Exam Const: General: comfortable and no acute distress Resp: Effort & Inspection: normal respiratory effort Auscultation: clear to auscultation bilaterally Cardio: Rate: regular rate Rhythm: regular rhythm GI: Auscultation: normal bowel sounds Other: semi firm Skin: General skin exam: no rashes or lesions noted Neuro: Other: Wheelchair bound. A&Ox3. Extrem: General: normal to inspection and no edema Psych: Affect: normal affect Objective Data Vital Signs Vital Signs: Vital Signs - 24 hr 08/26/24 13:58 08/26/24 19:59 08/26/24 20:04 Temperature 98.6 F Pulse Rate 79 87 Respiratory Rate 18 18 Blood Pressure 130/68 Pulse Oximetry 97 97 Oxygen Delivery Nasal Cannula Oxygen Flow Rate 3 Fraction of Inspired Oxygen 32 08/26/24 20:00 08/26/24 21:13 08/26/24 23:00 Temperature 98.2 F Pulse Rate 88 Respiratory Rate 18 20 Blood Pressure 125/74 Pulse Oximetry 97 98 Oxygen Delivery Nasal Cannula CPAP Oxygen Flow Rate 3 Fraction of Inspired Oxygen 08/27/24 05:53 08/27/24 07:24 08/27/24 07:24 Temperature 98.6 F Pulse Rate 76 91 91 Respiratory Rate 16 18 18 Blood Pressure 102/65 Pulse Oximetry 95 93 Oxygen Delivery Nasal Cannula Oxygen Flow Rate 3 Fraction of Inspired Oxygen 32 Intake/Output Intake/Output: Intake & Output 08/24/24 08/25/24 08/26/24 08/27/24 23:59 23:59 23:59 23:59 Intake Total 100 1090 680 Output Total 300 1050 Balance 100 790 -370 Meds/Results Medications: Active Medications Generic Name Dose Route Start Last Admin Trade Name Freq PRN Reason Stop Dose Admin Albuterol 1 puff 08/25/24 23:20 Albuterol Sulfate (*Sp) Aerosol 1 Puff INHALATION Q4HRT PRN Shortness Of Breath Bupropion HCl 150 mg 08/26/24 09:00 08/27/24 10:01 Bupropion Hcl Xl (24 Hr) 150 Mg Tabcr PO 150 mg DAILY JILLIAN Administration Clopidogrel Bisulfate 75 mg 08/26/24 09:00 08/27/24 10:01 Clopidogrel Bisulfate 75 Mg Tablet PO 75 mg DAILY JILLIAN Administration Fluoxetine HCl 20 mg 08/26/24 09:00 08/27/24 10:01 Fluoxeti
[2024-08-27] MEDS: TAMSULOSIN HCL 0.4 MG CAPSULE PO (21:52)
[2024-08-27] MEDS: MIRTAZAPINE 15 MG TABLET PO (21:52)
[2024-08-27] MEDS: rOPINIRole HCL 1 MG TABLET PO (21:52)
[2024-08-28] VITALS (7 sets, daily range): BP systolic 111–123; BP diastolic 56–74; PULSE 67–87; RESP 16–20; TEMP 36.4–36.9; O2SAT 93–96
[2024-08-28] MEDS: levoFLOXacin 500 MG/D5W 100 ML 500 MG/100 ML BAG 100 MG IVPB (00:18)
[2024-08-28 05:19] LABS: Basophils Percent Auto 0.4 % (0.2-1.2); Eosinophils Absolute Auto 0.4 K/mm3 (0-0.3); Eosinophils Percent Auto 5.5 % (0-4.4); Hematocrit 33.3 % (42.0-52.0); Hemoglobin 10.1 g/dL (14.0-18.0); Immature Granulocyte Absolute 0.04 K/mm3 (0.00-0.031); Immature Granulocyte Percent A 0.5 % (0-0.5); Lymphocytes Absolute Auto 0.61 K/mm3 (0.9-3.2); Lymphocytes Percent Auto 7.6 % (18.3-44.2); Mean Corpuscular HGB Conc 30.3 g/dl (32-36); Mean Corpuscular Volume 102.1 fl (80-100); Mean Platelet Volume 9.7 fl (7.4-10.4); Monocytes Absolute Auto 0.7 K/mm3 (0.1-0.6); Monocytes Percent Auto 8.1 % (2.6-8.5); Neutrophils Absolute Auto 6.3 K/mm3 (1.3-6.7); Neutrophils Percent Auto 77.9 % (45.5-73.1); Platelet Count Result 121 k/mm3 (150-375); Red Blood Count 3.26 M/mm3 (4.6-6.20); Red Cell Distribution Width 13.2 % (11.5-14.5); White Blood Count 8.1 K/mm3 (4.5-10.0)
[2024-08-28 05:32] LABS: Alanine Aminotransferase 9 U/L (6-50); Albumin Level 2.9 g/dL (3.5-5.1); Alkaline Phosphatase 55 U/L (38-126); Anion Gap 1 mmol/L (4-12); Aspartate Amino Transferase 17 U/L (17-59); Bilirubin,Total 0.4 mg/dL (0.2-1.3); Blood Urea Nitrogen 20 mg/dL (9-20); Calcium 7.8 mg/dL (8.4-10.2); Carbon Dioxide 38 mmol/L (22-30); Chloride 97 mmol/L (98-107); Estimated CRCL calculation 64 ml/min; Estimated Glomerular Filt Rate > 60; Glucose 72 mg/dL (65-110); Potassium 4.2 mmol/L (3.4-5.0); Sodium 136 mmol/L (137-145)
[2024-08-28] MEDS: LEVOTHYROXINE SODIUM 25 MCG TABLET PO (06:10)
[2024-08-28 06:14] LABS: Magnesium 1.8 mg/dL (1.6-2.3)
[2024-08-28] MEDS: FLUTICASONE/SALMETEROL 45-21 MCG INHALER 1 PUFF 2 PUFF INHALATION ×2 (09:05→20:15)
[2024-08-28] MEDS: TOLTERODINE TARTRATE LA 4 MG CAP.ER.24H PO (09:26)
[2024-08-28] MEDS: buPROPion HCL XL (24 HR) 150 MG TABCR PO (09:26)
[2024-08-28] MEDS: PANTOPRAZOLE 40 MG TABLET PO (09:26)
[2024-08-28] MEDS: SUCRALFATE 1 GM TABLET PO ×3 (09:26→17:23)
[2024-08-28] MEDS: OLANZapine 5 MG TABLET PO ×2 (09:26→17:24)
[2024-08-28] MEDS: methADONE HCL (*CRX) 5 MG TABLET PO ×2 (09:26→17:23)
[2024-08-28] MEDS: GABAPENTIN 100 MG CAPSULE PO ×3 (09:27→17:24)
[2024-08-28] MEDS: polyethylene glycoL 3350 17 GM POWD.PACK PO (09:27)
[2024-08-28] MEDS: CLOPIDOGREL BISULFATE 75 MG TABLET PO (09:27)
[2024-08-28] MEDS: FLUoxetine HCL 20 MG CAPSULE PO (09:27)
[2024-08-28] MEDS: LACTULOSE 20 GM/30 ML UDC PO ×3 (09:27→17:24)
--- NOTE | 2024-08-28 10:08 | PM.IMPN ---
Progress Note: A&P Assessment and Plan (1) Urinary tract infection: Code(s): N39.0 - Urinary tract infection, site not specified Status: Acute Assessment and Plan: patient started on levofloxacin 500 mg ivpb q 24, switched today to Levofloxacin 750 mg PO daily starting tonight. urine culture negative. exchange Barnard White blood cells improved from 14.9> 9.7> 8.1. (2) COPD (chronic obstructive pulmonary disease): Code(s): J44.9 - Chronic obstructive pulmonary disease, unspecified Status: Chronic Assessment and Plan: stable continue home med (3) Constipation: Code(s): K59.00 - Constipation, unspecified Status: Acute Assessment and Plan: bowel regimen- Lactulose 20 gm PO TID and Miralax. Will add a soap suds enema x1 and Docusate/senna 2 tablets daily. Last BM 08/26 KUB today showed:FINDINGS: Significant fecal stasis, visualized throughout the colon and distending the rectum. Multiple loops of dilated small and large bowel within the central abdomen. Redemonstration of both air and fluid opacification of the stomach, unchanged from CT examination performed 2 days earlier. IMPRESSION: Redemonstration of both fecal impaction and bowel dilatation, as detailed above. Encourage water intake. (4) Atrial fibrillation with controlled ventricular rate: Code(s): I48.91 - Unspecified atrial fibrillation Status: Chronic Assessment and Plan: rate controlled (5) Chronic diastolic heart failure: Code(s): I50.32 - Chronic diastolic (congestive) heart failure Status: Acute Assessment and Plan: appears euvolemic (6) Methadone use: Code(s): F11.20 - Opioid dependence, uncomplicated Status: Acute Assessment and Plan: continue methadone (7) Obstructive sleep apnea: Code(s): G47.33 - Obstructive sleep apnea (adult) (pediatric) Status: Acute Assessment and Plan: CPAP at nighttime Subjective Date/time seen: 08/28/24 10:08 Interval history: Patient reports he is tired of a liquid diet. Patient sitting up in a chair. Patient denies abdominal pain, nausea, or vomiting. Review of Systems Review of Systems: All systems reviewed & are unremarkable except as noted in HPI and below Exam Const: General: comfortable and no acute distress Resp: Effort & Inspection: normal respiratory effort Auscultation: clear to auscultation bilaterally Cardio: Rate: regular rate Rhythm: regular rhythm GI: Auscultation: normal bowel sounds Other: semi firm with slight distention. Skin: Other: Stage 3 pressure left buttock. Neuro: Other: Wheelchair bound. A&Ox3. Objective Data Vital Signs Vital Signs: Vital Signs - 24 hr 08/27/24 14:00 08/27/24 19:24 08/27/24 19:24 Temperature 98.3 F Pulse Rate 80 87 Respiratory Rate 18 18 Blood Pressure 105/97 H Pulse Oximetry 97 92 Oxygen Delivery Oxygen Flow Rate 3 08/27/24 22:10 08/27/24 22:33 08/28/24 06:00 Temperature 97.9 F 98.4 F Pulse Rate 85 84 Respiratory Rate 16 18 16 Blood Pressure 110/76 123/74 Pulse Oximetry 94 93 Oxygen Delivery CPAP Oxygen Flow Rate 08/28/24 09:07 08/28/24 09:07 Temperature Pulse Rate 87 Respiratory Rate 20 Blood Pressure Pulse Oximetry 93 Oxygen Delivery Nasal Cannula Oxygen Flow Rate 3 Intake/Output Intake/Output: Intake & Output 08/25/24 08/26/24 08/27/24 08/28/24 23:59 23:59 23:59 23:59 Intake Total 100 1090 1500 660 Output Total 300 1450 900 Balance 100 790 50 -240 Meds/Results Medications: Active Medications Generic Name Dose Route Start Last Admin Trade Name Freq PRN Reason Stop Dose Admin Albuterol 1 puff 08/25/24 23:20 Albuterol Sulfate (*Sp) Aerosol 1 Puff INHALATION Q4HRT PRN Shortness Of Breath Bupropion HCl 150 mg 08/26/24 09:00 08/28/24 09:26 Bupropion Hcl Xl (24 Hr) 150 Mg
[2024-08-28] MEDS: SENNA/DOCUSATE SODIUM TABLET 2 TAB PO (12:17)
--- NOTE | 2024-08-28 12:51 | PCNFU ---
Nutrition Follow-Up Complete: 1. Inadequate oral intake related to nausea and vomiting as evidenced by clear liquids 2. Increased protein energy needs related to wound healing as evidenced by stage III pressure ulcer to buttock goal: Improve PO intake when diet is advanced to support wound healing Patient has limited progressing towards goal. We will continue current goal. Pt current nutrition is Clear liquids/Ensure Clear on trays with Sherwin BID . Nutrition recommendation: advance diet as tolerated with Ensure Enlive TID per MD orders. Last recorded weight is 87.5 kg, no new weight to report. Bowel Motility: +BM reported 08/27 Labs Reviewed: Na 136, Alb 2.9,Hct 33.3,Hgb 10.1 Meds Noted:Lactulose, Remeron, Protonix, Senokot, Miralax Skin: Stage III pressure ulcer-left buttock Additional Notes: Patient remains on clear liquid diet x 4 days. Oral intake has been fair about 50% consumed for breakfast and drinking about 50% of diet supplements. Protein Modular continues of Sherwin BID for wound healing providing 90 kcal/7 gm glutamine, 7 gm arginine and 2.5 gm protein. Recommend advancing as tolerated with Ensure Enlive TID, when medically able per MD order. Monitoring diet orders, intakes, weights, labs, wound status, plan of care Follow up in 3 days
[2024-08-28] MEDS: SIMETHICONE 125 MG CHEW TAB PO (17:23)
[2024-08-28] MEDS: MIRTAZAPINE 15 MG TABLET PO (21:05)
[2024-08-28] MEDS: levoFLOXacin 750 MG TABLET PO (21:05)
[2024-08-28] MEDS: TAMSULOSIN HCL 0.4 MG CAPSULE PO (21:05)
[2024-08-28] MEDS: rOPINIRole HCL 1 MG TABLET PO (21:05)
[2024-08-29] VITALS (21 sets, daily range): BP systolic 107–143; BP diastolic 55–93; PULSE 16–107; RESP 18–40; TEMP 36.3–38.7; O2SAT 91–100
[2024-08-29 06:05] LABS: Basophils Percent Auto 0.2 % (0.2-1.2); Eosinophils Absolute Auto 0.4 K/mm3 (0-0.3); Eosinophils Percent Auto 4.2 % (0-4.4); Hematocrit 35.2 % (42.0-52.0); Hemoglobin 10.7 g/dL (14.0-18.0); Immature Granulocyte Absolute 0.04 K/mm3 (0.00-0.031); Immature Granulocyte Percent A 0.5 % (0-0.5); Lymphocytes Absolute Auto 0.53 K/mm3 (0.9-3.2); Lymphocytes Percent Auto 6.4 % (18.3-44.2); Mean Corpuscular HGB Conc 30.4 g/dl (32-36); Mean Corpuscular Hemoglobin 30.8 pg (26-34); Mean Corpuscular Volume 101.4 fl (80-100); Mean Platelet Volume 9.9 fl (7.4-10.4); Monocytes Absolute Auto 0.5 K/mm3 (0.1-0.6); Monocytes Percent Auto 6.2 % (2.6-8.5); Neutrophils Absolute Auto 6.8 K/mm3 (1.3-6.7); Neutrophils Percent Auto 82.5 % (45.5-73.1); Platelet Count Result 138 k/mm3 (150-375); Red Blood Count 3.47 M/mm3 (4.6-6.20); Red Cell Distribution Width 13.2 % (11.5-14.5); White Blood Count 8.3 K/mm3 (4.5-10.0)
[2024-08-29 06:19] LABS: Alanine Aminotransferase 9 U/L (6-50); Albumin Level 3.1 g/dL (3.5-5.1); Alkaline Phosphatase 68 U/L (38-126); Aspartate Amino Transferase 18 U/L (17-59); Bilirubin,Total 0.4 mg/dL (0.2-1.3); Blood Urea Nitrogen 14 mg/dL (9-20); Calcium 8.3 mg/dL (8.4-10.2); Carbon Dioxide > 40 mmol/L (22-30); Chloride 94 mmol/L (98-107); Estimated CRCL calculation 57 ml/min; Estimated Glomerular Filt Rate > 60; Glucose 92 mg/dL (65-110); Potassium 4.2 mmol/L (3.4-5.0); Sodium 137 mmol/L (137-145)
[2024-08-29] MEDS: FLUTICASONE/SALMETEROL 45-21 MCG INHALER 1 PUFF 2 PUFF INHALATION (07:44)
[2024-08-29] MEDS: LACTULOSE 20 GM/30 ML UDC PO ×3 (08:17→16:15)
[2024-08-29] MEDS: PANTOPRAZOLE 40 MG TABLET PO (08:17)
[2024-08-29] MEDS: methADONE HCL (*CRX) 5 MG TABLET PO ×2 (08:17→16:16)
[2024-08-29] MEDS: GABAPENTIN 100 MG CAPSULE PO ×3 (08:17→16:16)
[2024-08-29] MEDS: SIMETHICONE 125 MG CHEW TAB PO ×2 (08:17→16:16)
[2024-08-29] MEDS: SUCRALFATE 1 GM TABLET PO ×3 (08:17→16:15)
[2024-08-29] MEDS: TOLTERODINE TARTRATE LA 4 MG CAP.ER.24H PO (08:17)
[2024-08-29] MEDS: OLANZapine 5 MG TABLET PO ×2 (08:17→16:16)
[2024-08-29] MEDS: FLUoxetine HCL 20 MG CAPSULE PO (08:17)
[2024-08-29] MEDS: polyethylene glycoL 3350 17 GM POWD.PACK PO (08:17)
[2024-08-29] MEDS: buPROPion HCL XL (24 HR) 150 MG TABCR PO (08:17)
[2024-08-29] MEDS: CLOPIDOGREL BISULFATE 75 MG TABLET PO (08:17)
[2024-08-29] MEDS: SENNA/DOCUSATE SODIUM TABLET 2 TAB PO ×2 (08:17→16:15)
--- NOTE | 2024-08-29 11:29 | PM.IMPN ---
Progress Note: A&P Assessment and Plan (1) Urinary tract infection: Code(s): N39.0 - Urinary tract infection, site not specified Status: Acute Assessment and Plan: patient started on levofloxacin 500 mg ivpb q 24, switched to Levofloxacin 750 mg PO daily. urine culture negative. exchange Barnard White blood cells improved from 14.9> 9.7> 8.1> 8.3. (2) COPD (chronic obstructive pulmonary disease): Code(s): J44.9 - Chronic obstructive pulmonary disease, unspecified Status: Chronic Assessment and Plan: stable continue home med (3) Constipation: Code(s): K59.00 - Constipation, unspecified Status: Acute Assessment and Plan: bowel regimen- Lactulose 20 gm PO TID and Miralax. Will add a soap suds enema x1 and increase Docusate/senna 2 tablets PO BID. Last BM 08/27. No results after soap suds enema yesterday. KUB 08/28 showed:FINDINGS: Significant fecal stasis, visualized throughout the colon and distending the rectum. Multiple loops of dilated small and large bowel within the central abdomen. Redemonstration of both air and fluid opacification of the stomach, unchanged from CT examination performed 2 days earlier. IMPRESSION: Redemonstration of both fecal impaction and bowel dilatation, as detailed above. Encourage water intake. (4) Atrial fibrillation with controlled ventricular rate: Code(s): I48.91 - Unspecified atrial fibrillation Status: Chronic Assessment and Plan: rate controlled (5) Chronic diastolic heart failure: Code(s): I50.32 - Chronic diastolic (congestive) heart failure Status: Acute Assessment and Plan: appears euvolemic (6) Methadone use: Code(s): F11.20 - Opioid dependence, uncomplicated Status: Acute Assessment and Plan: continue methadone (7) Obstructive sleep apnea: Code(s): G47.33 - Obstructive sleep apnea (adult) (pediatric) Status: Acute Assessment and Plan: CPAP at nighttime Subjective Date/time seen: 08/29/24 11:29 Interval history: Patient sitting up in chair. Denies abdominal pain, nausea, vomiting, or shortness of breath. Review of Systems Review of Systems: All systems reviewed & are unremarkable except as noted in HPI and below Exam Const: General: no acute distress Resp: Effort & Inspection: normal respiratory effort Auscultation: clear to auscultation bilaterally Cardio: Rate: regular rate Rhythm: regular rhythm GI: Auscultation: normal bowel sounds Other: semi firm with slight distention. Last BM 08/27/24. Urinary Catheter: Urinary Catheter: patent and draining Skin: Other: Stage 3 pressure left buttock. Neuro: Speech: normal speech Other: Wheelchair bound. A&Ox3. Psych: Affect: normal affect Objective Data Vital Signs Vital Signs: Vital Signs - 24 hr 08/28/24 14:00 08/28/24 20:53 08/28/24 20:15 Temperature 98.0 F 97.6 F Pulse Rate 87 67 Respiratory Rate 18 16 Blood Pressure 111/56 L 115/62 Pulse Oximetry 93 96 95 Oxygen Delivery Nasal Cannula Oxygen Flow Rate 3 08/29/24 04:42 08/29/24 07:44 08/29/24 08:47 Temperature 98.6 F Pulse Rate 87 Respiratory Rate 18 Blood Pressure 143/55 H Pulse Oximetry 94 91 Oxygen Delivery Nasal Cannula Nasal Cannula Oxygen Flow Rate 3 3 08/29/24 08:00 08/29/24 09:03 Temperature Pulse Rate Respiratory Rate Blood Pressure Pulse Oximetry 92 Oxygen Delivery Nasal Cannula Nasal Cannula Oxygen Flow Rate 3 3 Intake/Output Intake/Output: Intake & Output 08/26/24 08/27/24 08/28/24 08/29/24 23:59 23:59 23:59 23:59 Intake Total 1090 1500 2044 490 Output Total 300 1450 2100 1000 Balance 790 50 -56 -510 Meds/Results Medications: Active Medications Generic Name Dose Route Start Last Admin Trade Name Freq PRN Reason Stop Dose Admin Albuterol 1 puff 08/25/24 23:20 Albuterol Sulf
[2024-08-29] MEDS: FUROSEMIDE INJ 40 MG/4 ML VIAL IV PUSH (16:40)
[2024-08-29] MEDS: IPRATROPIUM BR 0.02% INH SOLN 0.5 MG/2.5 ML VIAL INHALATION (16:46)
[2024-08-29] MEDS: LEVALBUTEROL NEB 1.25 MG/3 ML INHALATION (16:46)
--- NOTE | 2024-08-29 19:27 | PC.NURSE ---
Addendum entered by Donya Pollock RN 08/29/24 20:46: While assessing patient, it was noted by chief writer that there were 2-3 pills cleared from patients mouth assuming from 1700 med pass) with no improvement to patients condition. Addendum entered by Donya Pollock RN 08/29/24 19:30: Yard Associate came on shift Original Note: Yard Associate came off shift to find patietn more lethargic. Respirations at 26 and couldn't clear secretions. Hospitalist Adelita at bedside
[2024-08-29 19:59] LABS: Base Excess ABG 7.6 mEq/l (+/-2.0); Fractional Inspired Oxygen 60 %; Oxyhemoglobin 93.9 % THb (90.0-100.0); Total Hemoglobin 11.8 g/dL (12.0-18.0)
[2024-08-29 20:00] LABS: pH ABG 7.235 (7.350-7.450)
[2024-08-29 20:01] LABS: Modified Allen's Test Pass; PCO2 ABG 91.8 mmHg (35.0-45.0); Site Drawn RIGHT RADIAL
[2024-08-29 20:07] LABS: Alveolar/Arterial O2 Gradient 231.2 mmHg; Oxygen Content ABG 15.8 %vol (16.0-22.0); Oxygen Saturation ABG 96.9 % (95.0-100.0); PO2 ABG 111.2 mmHg (80.0-100.0); PO2 FiO2 Ratio Arterial Blood 1.85 %
[2024-08-29 20:09] LABS: Device NON-REBREATHER MASK
--- NOTE | 2024-08-29 20:30 | PC.NURSE ---
This patient, Farhan Armstrong, was received from [[id number] ] on 08/29/24 at 2030 for respiratory decompensation requiring continuous bipap. Patient/family oriented to unit policies and routines. Report received from Donya BLANCAS
--- NOTE | 2024-08-29 20:43 | PC.NURSE ---
After calling Hospitalist to bedside, and no improvement in patients condition a rapid response was called. Patient was transferred to IMU [id number]. Report was given to Carla, receiving RN prior to transfer. Family was at bedside at time of transfer.
--- NOTE | 2024-08-29 22:05 | PCRCNOTE ---
Patient mdi not given due to patient condition. Patient currently on continuous bipap
--- NOTE | 2024-08-29 22:08 | PM.CCN ---
Critical Care Event Note Summary Code activated: No Narrative: 08/29/2024 19:35 78-year-old male is been hospitalized since 08/25/2024 due to constipation with possible ileus with fecal impaction, possible urinary tract infection with cultures demonstrating multiple organism likely contaminant stone Levaquin, COPD and atrial fibrillation who nursing staff reported became more altered before shift change. They shift nursing reported to the evening shift nurse that they had difficulty giving the patient his medications. When the night nurse came around for assessment patient was minimally responsive, tachypneic and cyanotic. A rapid response was called. Patient's oxygen saturations were 87 at the time of nurse practitioner arrival with the patient on non-rebreather. Stat chest x-ray was ordered but had just been completed around 17:00 and chest x-ray was reviewed demonstrating chronic changes in the right upper lung lobe and possible increasing infiltrates in right middle and lower lobe as well as new infiltrates verses artifact due to positioning of the left lung. Stat ABG was performed which demonstrated acute hypercapnic respiratory failure with respiratory acidosis. Temperature 101.6? pulse 106 respiratory rate ranging between 22 and 30 pulse ox 100% on 15 L non-rebreather blood pressure 120/87 GENERAL: Patient acutely ill-appearing, well-developed well-nourished, sitting up in bed with head of bed almost at 90?, minimally responsive in noxious stimuli HEENT: Mucous membranes are dry, patient did have gag reflex to deep suctioning, pupils are equal and sluggishly reactive bilaterally, positive conjunctival pallor, no scleral icterus CARDIOVASCULAR: Sinus tachycardia, 2+ bilateral radial pedal pulses RESPIRATORY: Labored respirations, tachypnea, decreased breath sounds in the left lung, wheezing and overt crackles in the right on most notably right upper lung, port in the right upper chest ABDOMEN: Somewhat firm, distended, hypoactive bowel sounds, tympanic INTEGUMENT: Cyanotic hands and feet, 4-5 second cap refill NEUROLOGIC: The patient is somnolent, minimally responsive,, gag with Mitchel are, pupils are equal but sluggishly reactive, innovation reflex present, would noxious stimuli patient does flex and after repeated attempts did try to localize when NG tube was being placed PSYCHIATRIC: Confused, agitated with cares EXTREMITIES: No clubbing, cyanosis of bilateral hands and feet noted, no edema, moves bilateral upper extremities equally : Depends in place Laboratory Tests 08/29/24 22:32 08/29/24 05:38 08/29/24 08/29/24 08/29/24 05:38 19:26 19:46 WBC 8.3 RBC 3.47 L Hgb 10.7 L Hct 35.2 L MCV 101.4 H MCH 30.8 MCHC 30.4 L RDW 13.2 Plt Count 138 L MPV 9.9 Immature Gran % (Auto) 0.5 Neut % (Auto) 82.5 H Lymph % (Auto) 6.4 L Randolph % (Auto) 6.2 Eos % (Auto) 4.2 Baso % (Auto) 0.2 Lymph # (Auto) 0.53 L Randolph # (Auto) 0.5 Eos # (Auto) 0.4 H Baso # (Auto) 0.0 Abs Immat Gran (auto) 0.04 H Absolute Neuts (auto) 6.8 H Absolute Nucleated RBC 0.000 Nucleated RBC % 0.0 Puncture Site Right radial ABG pH 7.235 L* ABG pCO2 91.8 H* ABG pO2 111.2 H ABG PO2/FiO2 Ratio 1.85 ABG HCO3 38.0 H ABG O2 Saturation 96.9 ABG O2 Content 15.8 L ABG Base Excess 7.6 A-a Gradient 231.2 Oxyhemoglobin 93.9 Total Hemoglobin 11.8 L O2 Delivery Device Non-rebreather mask O2 Liters/Min 15.0 FiO2 60 Sodium 137 Potassium 4.2 Chloride 94 L Carbon Dioxide > 40 H Anion Gap BUN 14 D Creatinine 0.90 Estim Creat Clear Calc 57 Estimated GFR > 60 Glucose 92 POC Capillary Glucose 87 Lactic Acid Calcium 8.3 L Total Bilirubin 0.4 AST 18 ALT 9 Alkaline Phosphatase 68 Total Protein 6.0 L Albumin 3.1 L Procalcitonin Nasal MRSA (PCR) 08/29/24 08/29/24 08/29/24 22:23 22:
[2024-08-29] MEDS: IPRATROPIUM 0.5 MG/ALBUTEROL SULFATE 2.5 MG AMPUL.NEB 3 ML INHALATION (22:20)
[2024-08-29 22:40] LABS: Basophils Percent Auto 0.2 % (0.2-1.2); Eosinophils Absolute Auto 0.1 K/mm3 (0-0.3); Eosinophils Percent Auto 0.7 % (0-4.4); Hematocrit 37.2 % (42.0-52.0); Hemoglobin 11.3 g/dL (14.0-18.0); Immature Granulocyte Absolute 0.05 K/mm3 (0.00-0.031); Immature Granulocyte Percent A 0.4 % (0-0.5); Lymphocytes Absolute Auto 0.27 K/mm3 (0.9-3.2); Mean Corpuscular HGB Conc 30.4 g/dl (32-36); Mean Corpuscular Hemoglobin 30.9 pg (26-34); Mean Corpuscular Volume 101.6 fl (80-100); Mean Platelet Volume 9.5 fl (7.4-10.4); Monocytes Absolute Auto 0.7 K/mm3 (0.1-0.6); Monocytes Percent Auto 5.3 % (2.6-8.5); Neutrophils Absolute Auto 12.6 K/mm3 (1.3-6.7); Neutrophils Percent Auto 91.4 % (45.5-73.1); Platelet Count Result 136 k/mm3 (150-375); Red Blood Count 3.66 M/mm3 (4.6-6.20); Red Cell Distribution Width 13.2 % (11.5-14.5); White Blood Count 13.8 K/mm3 (4.5-10.0)
[2024-08-29] MEDS: CEFEPIME 2 GM/NS 50 ML 2 GM/50 ML BAG IVPB (22:41)
[2024-08-29 22:49] LABS: Lactic Acid Reflex 0.9 mmol/L (0.7-2.0)
[2024-08-29] MEDS: metroNIDAZOLE 500 MG/ISO 100ML 500 MG/100 ML BAG 100 MG IVPB (22:51)
[2024-08-29 23:03] LABS: Glucose Point of Care 87 mg/dl (65-105)
[2024-08-29 23:08] LABS: Procalcitonin 0.1 ng/mL
[2024-08-29] MEDS: VANCOMYCIN 1,250 MG/NS 250 ML 1,250 MG/250 ML BAG 166.67 MG IVPB (23:10)
[2024-08-30] VITALS (28 sets, daily range): BP systolic 106–131; BP diastolic 48–73; PULSE 63–96; RESP 16–29; TEMP 36.9–38.6; O2SAT 93–97
[2024-08-30] MEDS: ACETAMINOPHEN 650 MG SUPPOSITORY RECTAL (00:28)
[2024-08-30] MEDS: VANCOMYCIN 1,000 MG/NS 250 ML 1,000 MG/250 ML BAG 250 MG IVPB (00:42)
[2024-08-30 00:51] LABS: MRSA (PCR) DETECTED (NOT DETECTE)
[2024-08-30 01:15] LABS: Alveolar/Arterial O2 Gradient 123.3 mmHg; Base Excess ABG 9.3 mEq/l (+/-2.0); Carboxyhemoglobin 2.4 % THb (0-2.0); Fractional Inspired Oxygen 40 %; HCO3 ABG 36.9 mEq/l (22.0-26.0); Oxygen Content ABG 13.5 %vol (16.0-22.0); Oxygen Saturation ABG 95.1 % (95.0-100.0); Oxyhemoglobin 92.4 % THb (90.0-100.0); PO2 FiO2 Ratio Arterial Blood 2.05 %; Reduced Hemoglobin 5.2 %THb (0-5.0); Total Hemoglobin 10.3 g/dL (12.0-18.0); pH ABG 7.343 (7.350-7.450)
[2024-08-30 01:17] LABS: Device NON-INVASIVE VENT; Non-Invasive Inspiratory Pressure 10 CMH2O; Non-Invasive Vent Rate 20 /MIN; PCO2 ABG 69.5 mmHg (35.0-45.0); Site Drawn RIGHT BRACHIAL
[2024-08-30 01:18] LABS: Non-Invasive Expiratory Pressure 5 CMH2O
[2024-08-30] MEDS: SODIUM CHLORIDE 0.9% IV 500 ML 250 ML IV CONT (01:56)
[2024-08-30] MEDS: IPRATROPIUM 0.5 MG/ALBUTEROL SULFATE 2.5 MG AMPUL.NEB 3 ML INHALATION ×4 (02:20→19:59)
[2024-08-30 05:09] LABS: Basophils Percent Auto 0.3 % (0.2-1.2); Eosinophils Absolute Auto 0.1 K/mm3 (0-0.3); Eosinophils Percent Auto 0.4 % (0-4.4); Hematocrit 32.5 % (42.0-52.0); Hemoglobin 9.9 g/dL (14.0-18.0); Immature Granulocyte Absolute 0.05 K/mm3 (0.00-0.031); Immature Granulocyte Percent A 0.4 % (0-0.5); Lymphocytes Absolute Auto 0.63 K/mm3 (0.9-3.2); Lymphocytes Percent Auto 5.4 % (18.3-44.2); Mean Corpuscular HGB Conc 30.5 g/dl (32-36); Mean Corpuscular Hemoglobin 30.7 pg (26-34); Mean Corpuscular Volume 100.9 fl (80-100); Mean Platelet Volume 9.7 fl (7.4-10.4); Monocytes Absolute Auto 0.7 K/mm3 (0.1-0.6); Monocytes Percent Auto 5.9 % (2.6-8.5); Neutrophils Absolute Auto 10.3 K/mm3 (1.3-6.7); Neutrophils Percent Auto 87.6 % (45.5-73.1); Platelet Count Result 120 k/mm3 (150-375); Red Blood Count 3.22 M/mm3 (4.6-6.20); Red Cell Distribution Width 13.2 % (11.5-14.5); White Blood Count 11.7 K/mm3 (4.5-10.0)
[2024-08-30 05:19] LABS: Alanine Aminotransferase 9 U/L (6-50); Albumin Level 2.7 g/dL (3.5-5.1); Alkaline Phosphatase 59 U/L (38-126); Aspartate Amino Transferase 17 U/L (17-59); Bilirubin,Total 0.4 mg/dL (0.2-1.3); Blood Urea Nitrogen 18 mg/dL (9-20); Calcium 7.8 mg/dL (8.4-10.2); Carbon Dioxide > 40 mmol/L (22-30); Chloride 96 mmol/L (98-107); Estimated CRCL calculation 57 ml/min; Estimated Glomerular Filt Rate > 60; Glucose 99 mg/dL (65-110); Sodium 136 mmol/L (137-145)
[2024-08-30] MEDS: metroNIDAZOLE 500 MG/ISO 100ML 500 MG/100 ML BAG 100 MG IVPB ×3 (05:54→21:31)
[2024-08-30 06:20] LABS: Alveolar/Arterial O2 Gradient 126.4 mmHg; Device NON-INVASIVE VENT; Fractional Inspired Oxygen 40 %; Oxygen Content ABG 12.9 %vol (16.0-22.0); Oxygen Saturation ABG 95.7 % (95.0-100.0); Oxyhemoglobin 92.9 % THb (90.0-100.0); PCO2 ABG 64.2 mmHg (35.0-45.0); PO2 FiO2 Ratio Arterial Blood 2.13 %; Site Drawn RIGHT BRACHIAL; Total Hemoglobin 9.8 g/dL (12.0-18.0); pH ABG 7.355 (7.350-7.450)
[2024-08-30 06:21] LABS: Non-Invasive Expiratory Pressure 5 CMH2O; Non-Invasive Inspiratory Pressure 10 CMH2O; Non-Invasive Vent Rate 20 /MIN
--- NOTE | 2024-08-30 07:33 | PCRCNOTE ---
DPI NOT GIVEN, PT. CONT. BIPAP.
[2024-08-30] MEDS: polyethylene glycoL 3350 17 GM POWD.PACK PO (09:49)
[2024-08-30] MEDS: methADONE HCL (*CRX) 5 MG TABLET PO ×2 (09:49→17:58)
[2024-08-30] MEDS: OLANZapine 5 MG TABLET PO ×2 (09:50→17:59)
[2024-08-30] MEDS: LACTULOSE 20 GM/30 ML UDC PO ×3 (09:50→17:57)
[2024-08-30] MEDS: CLOPIDOGREL BISULFATE 75 MG TABLET PO (09:50)
[2024-08-30] MEDS: SUCRALFATE 1 GM TABLET PO ×3 (09:50→17:58)
[2024-08-30] MEDS: buPROPion HCL XL (24 HR) 150 MG TABCR PO (09:51)
[2024-08-30] MEDS: SIMETHICONE 125 MG CHEW TAB PO ×2 (09:51→18:06)
[2024-08-30] MEDS: SENNA/DOCUSATE SODIUM TABLET 2 TAB PO ×2 (09:51→17:57)
[2024-08-30] MEDS: PANTOPRAZOLE 40 MG TABLET PO (09:51)
[2024-08-30] MEDS: GABAPENTIN 100 MG CAPSULE PO ×3 (09:52→17:57)
[2024-08-30] MEDS: TOLTERODINE TARTRATE LA 4 MG CAP.ER.24H PO (09:52)
[2024-08-30] MEDS: FLUoxetine HCL 20 MG CAPSULE PO (09:52)
--- NOTE | 2024-08-30 10:00 | PM.IMPN ---
Progress Note: A&P Assessment and Plan (1) Urinary tract infection: Code(s): N39.0 - Urinary tract infection, site not specified Status: Acute Assessment and Plan: urine culture negative. exchange Barnard White blood cells improved from 14.9> 9.7> 8.1> 8.3> 13.8>11.7 (2) COPD (chronic obstructive pulmonary disease): Code(s): J44.9 - Chronic obstructive pulmonary disease, unspecified Status: Chronic Assessment and Plan: Continue neb treatments. White blood cells improved from 14.9> 9.7> 8.1> 8.3> 13.8>11.7 . Blood gas improved overnight. BMP this afternoon showed a C02 38. Patient started last night on Cefepime 2 gm ivpb q 12, Metronidazole 500 mg ivpb q 8, and Vancomycin 1,500 mg ivpb daily due to episode of temperature spike to 101.6, tachycardia, and encephalopathy. A&Ox3 this morning. Temp 98.4 F. HR 82. Speech evaluation patient did well and a regular diet is recommended. (3) Constipation: Code(s): K59.00 - Constipation, unspecified Status: Acute Assessment and Plan: bowel regimen- Lactulose 20 gm PO TID, Miralax, and Docusate/senna 2 tablets PO BID. KUB 08/28 showed:FINDINGS: Significant fecal stasis, visualized throughout the colon and distending the rectum. Multiple loops of dilated small and large bowel within the central abdomen. Redemonstration of both air and fluid opacification of the stomach, unchanged from CT examination performed 2 days earlier. IMPRESSION: Redemonstration of both fecal impaction and bowel dilatation, as detailed above. Encourage water intake. - Bowel movement 08/29/24. (4) Atrial fibrillation with controlled ventricular rate: Code(s): I48.91 - Unspecified atrial fibrillation Status: Chronic Assessment and Plan: rate controlled (5) Chronic diastolic heart failure: Code(s): I50.32 - Chronic diastolic (congestive) heart failure Status: Acute Assessment and Plan: appears euvolemic (6) Methadone use: Code(s): F11.20 - Opioid dependence, uncomplicated Status: Acute Assessment and Plan: continue methadone (7) Obstructive sleep apnea: Code(s): G47.33 - Obstructive sleep apnea (adult) (pediatric) Status: Acute Assessment and Plan: CPAP at nighttime Subjective Date/time seen: 08/30/24 10:00 Interval history: Patient denies pain or shortness of breath. Patient wanting the BIPAP taken off. Review of Systems Review of Systems: All systems reviewed & are unremarkable except as noted in HPI and below Exam Const: General: comfortable and no acute distress Resp: Other: Diminished with a few scattered crackles RUL. Cardio: Rate: regular rate Rhythm: regular rhythm Other: SR- 69 GI: Other: Semi firm. Hypo bowel sounds. Urinary Catheter: Urinary Catheter: patent and draining Extrem: General: normal to inspection Objective Data Vital Signs Vital Signs: Vital Signs - 24 hr 08/29/24 13:46 08/29/24 16:37 08/29/24 16:46 Temperature 98.0 F 97.3 F L Pulse Rate 86 82 86 Respiratory Rate 20 21 H 20 Blood Pressure 107/93 H 120/59 L Pulse Oximetry 95 95 Oxygen Delivery Oxygen Flow Rate Fraction of Inspired Oxygen 08/29/24 16:56 08/29/24 19:26 08/29/24 20:14 Temperature 98.3 F Pulse Rate 88 99 107 H Respiratory Rate 20 26 H 40 H Blood Pressure 120/87 Pulse Oximetry 92 95 Oxygen Delivery BiPAP Oxygen Flow Rate Fraction of Inspired Oxygen 08/29/24 20:16 08/29/24 21:00 08/29/24 20:30 Temperature 101.6 F H Pulse Rate 103 H 105 H Respiratory Rate 33 H 25 H Blood Pressure 124/91 H Pulse Oximetry 96 93 95 Oxygen Delivery BiPAP BiPAP Oxygen Flow Rate Fraction of Inspired Oxygen 40 08/29/24 22:21 08/29/24 22:22 08/29/24 22:30 Temperature Pulse Rate 103 H 103 H 101 H Respiratory Rate 25 H 25 H 23 H Blood Pressure Pulse Oximetry 93 Oxygen Del
[2024-08-30] MEDS: CEFEPIME 2 GM/NS 50 ML 2 GM/50 ML BAG IVPB ×2 (10:36→21:01)
--- NOTE | 2024-08-30 11:36 | PCSTNOTE ---
Please refer to the Bedside Swallow Evaluation in the EMR. Please note, silent aspiration cannot be ruled out at bedside.
[2024-08-30 11:46] LABS: Glucose Point of Care 81 mg/dl (65-105)
[2024-08-30 12:47] LABS: Anion Gap 1 mmol/L (4-12); Blood Urea Nitrogen 17 mg/dL (9-20); Calcium 7.8 mg/dL (8.4-10.2); Carbon Dioxide 38 mmol/L (22-30); Chloride 97 mmol/L (98-107); Estimated CRCL calculation 64 ml/min; Estimated Glomerular Filt Rate > 60; Glucose 80 mg/dL (65-110); Sodium 136 mmol/L (137-145)
[2024-08-30] MEDS: FLUTICASONE/SALMETEROL 45-21 MCG INHALER 1 PUFF 2 PUFF INHALATION (19:59)
[2024-08-30] MEDS: MIRTAZAPINE 15 MG TABLET PO (20:20)
[2024-08-30] MEDS: rOPINIRole HCL 1 MG TABLET PO (20:20)
[2024-08-30] MEDS: TAMSULOSIN HCL 0.4 MG CAPSULE PO (20:20)
[2024-08-30] MEDS: VANCOMYCIN 1,500 MG/NS 500 ML 1,500 MG/500 ML BAG 250 MG IVPB (22:00)
[2024-08-31] VITALS (27 sets, daily range): BP systolic 125–157; BP diastolic 66–94; PULSE 56–110; RESP 18–34; TEMP 36.5–36.8; O2SAT 92–98
[2024-08-31 00:17] LABS: Glucose Point of Care 105 mg/dl (65-105)
[2024-08-31] MEDS: IPRATROPIUM 0.5 MG/ALBUTEROL SULFATE 2.5 MG AMPUL.NEB 3 ML INHALATION ×4 (02:26→20:38)
[2024-08-31 05:22] LABS: Basophils Percent Auto 0.5 % (0.2-1.2); Eosinophils Absolute Auto 0.5 K/mm3 (0-0.3); Eosinophils Percent Auto 5.7 % (0-4.4); Hematocrit 31.9 % (42.0-52.0); Hemoglobin 9.9 g/dL (14.0-18.0); Immature Granulocyte Absolute 0.04 K/mm3 (0.00-0.031); Immature Granulocyte Percent A 0.5 % (0-0.5); Lymphocytes Percent Auto 6.1 % (18.3-44.2); Mean Corpuscular Hemoglobin 31.1 pg (26-34); Mean Corpuscular Volume 100.3 fl (80-100); Mean Platelet Volume 9.2 fl (7.4-10.4); Monocytes Absolute Auto 0.6 K/mm3 (0.1-0.6); Neutrophils Absolute Auto 6.6 K/mm3 (1.3-6.7); Neutrophils Percent Auto 80.2 % (45.5-73.1); Platelet Count Result 122 k/mm3 (150-375); Red Blood Count 3.18 M/mm3 (4.6-6.20); Red Cell Distribution Width 13.2 % (11.5-14.5); White Blood Count 8.2 K/mm3 (4.5-10.0)
[2024-08-31] MEDS: LEVOTHYROXINE SODIUM 25 MCG TABLET PO (05:34)
[2024-08-31] MEDS: metroNIDAZOLE 500 MG/ISO 100ML 500 MG/100 ML BAG 100 MG IVPB (05:35)
[2024-08-31 05:37] LABS: Alanine Aminotransferase 9 U/L (6-50); Albumin Level 2.7 g/dL (3.5-5.1); Alkaline Phosphatase 66 U/L (38-126); Aspartate Amino Transferase 18 U/L (17-59); Bilirubin,Total 0.3 mg/dL (0.2-1.3); Blood Urea Nitrogen 16 mg/dL (9-20); Calcium 7.9 mg/dL (8.4-10.2); Carbon Dioxide > 40 mmol/L (22-30); Chloride 96 mmol/L (98-107); Estimated CRCL calculation 64 ml/min; Estimated Glomerular Filt Rate > 60; Glucose 164 mg/dL (65-110); Potassium 3.7 mmol/L (3.4-5.0); Sodium 138 mmol/L (137-145)
[2024-08-31] MEDS: FLUTICASONE/SALMETEROL 45-21 MCG INHALER 1 PUFF 2 PUFF INHALATION ×2 (08:55→20:40)
[2024-08-31] MEDS: polyethylene glycoL 3350 17 GM POWD.PACK PO (09:55)
[2024-08-31] MEDS: SUCRALFATE 1 GM TABLET PO ×3 (09:56→18:37)
[2024-08-31] MEDS: CLOPIDOGREL BISULFATE 75 MG TABLET PO (09:56)
[2024-08-31] MEDS: FLUoxetine HCL 20 MG CAPSULE PO (09:56)
[2024-08-31] MEDS: SIMETHICONE 125 MG CHEW TAB PO ×2 (09:56→18:38)
[2024-08-31] MEDS: PANTOPRAZOLE 40 MG TABLET PO (09:56)
[2024-08-31] MEDS: SENNA/DOCUSATE SODIUM TABLET 2 TAB PO ×2 (09:56→18:38)
[2024-08-31] MEDS: TOLTERODINE TARTRATE LA 4 MG CAP.ER.24H PO (09:56)
[2024-08-31] MEDS: GABAPENTIN 100 MG CAPSULE PO ×3 (09:56→18:38)
[2024-08-31] MEDS: buPROPion HCL XL (24 HR) 150 MG TABCR PO (09:57)
[2024-08-31] MEDS: methADONE HCL (*CRX) 5 MG TABLET PO ×2 (09:57→18:38)
[2024-08-31] MEDS: OLANZapine 5 MG TABLET PO ×2 (09:57→18:38)
[2024-08-31] MEDS: LACTULOSE 20 GM/30 ML UDC PO ×3 (09:57→18:37)
[2024-08-31] MEDS: CEFEPIME 2 GM/NS 50 ML 2 GM/50 ML BAG IVPB (10:08)
--- NOTE | 2024-08-31 10:40 | PCNFU ---
Nutrition Follow-Up Complete: 1. Inadequate oral intake related to nausea and vomiting as evidenced by clear liquids 2. Increased protein energy needs related to wound healing as evidenced by stage III pressure ulcer to buttock Goal:Improve PO intake when diet is advanced to support wound healing Pt progressing towards goal. continue with same goal Pt current nutrition is Regular. Nutrition recommendation: Add Ensure Enlive BID, RA BID for wound healing. Last recorded weight is 89 kg. Bowel Motility: +BM 08/28 Labs Reviewed: Hgb:9.9, HCT:31.9, Alb:2.7, Glu:164 Meds Noted: remeron, protonix Skin: Stage III to buttocks Additional Notes: pt diet advanced to regular, intake 50% at this time. Recommend to add Ensure Enlive BID and RA BID for wound healing. Monitoring diet orders, intakes, weights, labs, wound status, plan of care Follow up in 5 days
--- NOTE | 2024-08-31 11:20 | PM.IMPN ---
Progress Note: A&P Assessment and Plan (1) Urinary tract infection: Code(s): N39.0 - Urinary tract infection, site not specified Status: Acute Assessment and Plan: urine culture negative. exchange Barnard White blood cells improved from 14.9> 9.7> 8.1> 8.3> 13.8>11.7>8.2 (2) COPD (chronic obstructive pulmonary disease): Code(s): J44.9 - Chronic obstructive pulmonary disease, unspecified Status: Chronic Assessment and Plan: Continue neb treatments. White blood cells improved from 14.9> 9.7> 8.1> 8.3> 13.8>11.7> 8.2. Blood gas improved overnight. Speech evaluation patient did well and a regular diet is recommended. Antibiotics switched to Doxycycline 100 mg PO q 12 and Metronidazole 500 mg PO q 8. (3) Constipation: Code(s): K59.00 - Constipation, unspecified Status: Acute Assessment and Plan: bowel regimen- Lactulose 20 gm PO TID, Miralax, and Docusate/senna 2 tablets PO BID. KUB 08/28 showed:FINDINGS: Significant fecal stasis, visualized throughout the colon and distending the rectum. Multiple loops of dilated small and large bowel within the central abdomen. Redemonstration of both air and fluid opacification of the stomach, unchanged from CT examination performed 2 days earlier. IMPRESSION: Redemonstration of both fecal impaction and bowel dilatation, as detailed above. Encourage water intake. Bowel movement 08/31/24. (4) Atrial fibrillation with controlled ventricular rate: Code(s): I48.91 - Unspecified atrial fibrillation Status: Chronic Assessment and Plan: rate controlled SR 86. (5) Chronic diastolic heart failure: Code(s): I50.32 - Chronic diastolic (congestive) heart failure Status: Acute Assessment and Plan: appears euvolemic (6) Methadone use: Code(s): F11.20 - Opioid dependence, uncomplicated Status: Acute Assessment and Plan: continue methadone (7) Obstructive sleep apnea: Code(s): G47.33 - Obstructive sleep apnea (adult) (pediatric) Status: Acute Assessment and Plan: CPAP at nighttime Subjective Date/time seen: 08/31/24 11:20 Interval history: Patient reported nausea this morning, patient felt better in afternoon and tolerated lunch well per nurse. Patient also had a mushy bowel movement per nurse. Patient denies chest pain, palpitations, headache, dizziness, or vomiting. Review of Systems Review of Systems: All systems reviewed & are unremarkable except as noted in HPI and below Exam Const: General: no acute distress Resp: Effort & Inspection: normal respiratory effort Other: slightly diminished. Cardio: Rate: regular rate Rhythm: regular rhythm Other: SR-86 GI: Auscultation: normal bowel sounds Other: semi firm. Mushy BM today per nursing. Will discontinue NG tube. Urinary Catheter: Urinary Catheter: patent and draining Extrem: General: normal to inspection Objective Data Vital Signs Vital Signs: Vital Signs - 24 hr 08/30/24 12:00 08/30/24 13:14 08/30/24 13:17 Temperature 98.5 F Pulse Rate 80 80 Respiratory Rate 18 20 Blood Pressure 116/54 L Pulse Oximetry 95 95 Oxygen Delivery Nasal Cannula Oxygen Flow Rate 3 08/30/24 13:22 08/30/24 12:00 08/30/24 12:00 Temperature Pulse Rate 82 82 82 Respiratory Rate 20 20 Blood Pressure Pulse Oximetry 95 Oxygen Delivery Nasal Cannula Oxygen Flow Rate 3 08/30/24 14:00 08/30/24 16:00 08/30/24 16:00 Temperature 99.1 F Pulse Rate 83 87 85 Respiratory Rate 16 Blood Pressure 112/51 L Pulse Oximetry 93 Oxygen Delivery Oxygen Flow Rate 08/30/24 18:00 08/30/24 16:00 08/30/24 20:00 Temperature Pulse Rate 91 85 Respiratory Rate Blood Pressure Pulse Oximetry 94 93 Oxygen Delivery Nasal Cannula Nasal Cannula Oxygen Flow Rate 3 3 08/30/24 20:00 08/30/24 20:05 08/30/24 20:00 Tem
[2024-08-31 12:41] LABS: Glucose Point of Care 153 mg/dl (65-105)
[2024-08-31 18:50] LABS: Glucose Point of Care 102 mg/dl (65-105)
[2024-08-31] MEDS: DOXYCYCLINE HYCLATE 100 MG TABLET PO (20:35)
[2024-08-31] MEDS: TAMSULOSIN HCL 0.4 MG CAPSULE PO (20:35)
[2024-08-31] MEDS: MIRTAZAPINE 15 MG TABLET PO (20:36)
[2024-08-31] MEDS: levoFLOXacin 750 MG TABLET PO (20:36)
[2024-08-31] MEDS: rOPINIRole HCL 1 MG TABLET PO (20:36)
[2024-08-31] MEDS: metroNIDAZOLE 500 MG TABLET PO (20:39)
[2024-08-31 23:51] LABS: Glucose Point of Care 135 mg/dl (65-105)
[2024-09-01] VITALS (24 sets, daily range): BP systolic 121–143; BP diastolic 62–84; PULSE 78–89; RESP 20–24; TEMP 36.5–36.8; O2SAT 94–98
[2024-09-01] MEDS: IPRATROPIUM 0.5 MG/ALBUTEROL SULFATE 2.5 MG AMPUL.NEB 3 ML INHALATION ×4 (02:09→21:00)
[2024-09-01] MEDS: metroNIDAZOLE 500 MG TABLET PO ×3 (05:22→20:53)
[2024-09-01] MEDS: LEVOTHYROXINE SODIUM 25 MCG TABLET PO (05:22)
[2024-09-01 05:35] LABS: Basophils Percent Auto 0.3 % (0.2-1.2); Eosinophils Absolute Auto 0.6 K/mm3 (0-0.3); Eosinophils Percent Auto 7.2 % (0-4.4); Hematocrit 33.6 % (42.0-52.0); Hemoglobin 10.5 g/dL (14.0-18.0); Immature Granulocyte Absolute 0.04 K/mm3 (0.00-0.031); Immature Granulocyte Percent A 0.5 % (0-0.5); Lymphocytes Absolute Auto 0.61 K/mm3 (0.9-3.2); Mean Corpuscular HGB Conc 31.3 g/dl (32-36); Mean Corpuscular Hemoglobin 31.3 pg (26-34); Mean Corpuscular Volume 100.3 fl (80-100); Mean Platelet Volume 9.4 fl (7.4-10.4); Monocytes Absolute Auto 0.6 K/mm3 (0.1-0.6); Monocytes Percent Auto 7.1 % (2.6-8.5); Neutrophils Absolute Auto 6.8 K/mm3 (1.3-6.7); Neutrophils Percent Auto 77.9 % (45.5-73.1); Platelet Count Result 146 k/mm3 (150-375); Red Blood Count 3.35 M/mm3 (4.6-6.20); Red Cell Distribution Width 13.3 % (11.5-14.5); White Blood Count 8.8 K/mm3 (4.5-10.0)
[2024-09-01 05:53] LABS: Alanine Aminotransferase 9 U/L (6-50); Albumin Level 2.9 g/dL (3.5-5.1); Alkaline Phosphatase 67 U/L (38-126); Aspartate Amino Transferase 16 U/L (17-59); Bilirubin,Total 0.4 mg/dL (0.2-1.3); Blood Urea Nitrogen 15 mg/dL (9-20); Calcium 8.4 mg/dL (8.4-10.2); Carbon Dioxide > 40 mmol/L (22-30); Chloride 95 mmol/L (98-107); Estimated CRCL calculation 73 ml/min; Estimated Glomerular Filt Rate > 60; Glucose 117 mg/dL (65-110); Sodium 138 mmol/L (137-145)
[2024-09-01 06:14] LABS: Glucose Point of Care 114 mg/dl (65-105)
[2024-09-01] MEDS: FLUTICASONE/SALMETEROL 45-21 MCG INHALER 1 PUFF 2 PUFF INHALATION ×2 (07:22→21:00)
--- NOTE | 2024-09-01 11:14 | PM.IMPN ---
Progress Note: A&P Assessment and Plan (1) Urinary tract infection: Code(s): N39.0 - Urinary tract infection, site not specified Status: Acute Assessment and Plan: urine culture negative. exchange Barnard White blood cells improved from 14.9> 9.7> 8.1> 8.3> 13.8>11.7>8.2 >8.8 (2) Pneumonia: Qualifiers: Laterality: bilateral Lung location: unspecified part of lung Pneumonia type: due to unspecified organism Qualified Code(s): J18.9 - Pneumonia, unspecified organism Code(s): J18.9 - Pneumonia, unspecified organism Status: Acute Assessment and Plan: Chest X-ray today showed: LUNGS: Atelectasis versus pneumonia in the right upper lobe unchanged from previous examination. No effusions or pneumothorax. Bilateral prominent markings with interstitial changes. IMPRESSION: No change from previous examination. Modified Barium swallow completed due to concerns of patient aspirating this morning. FINDINGS: Oral stage: Adequate function. Pharyngeal stage: Reduced laryngeal elevation and tongue base retraction. There is both vallecular and piriform sinus residue. Laryngeal penetration with aspiration with thin liquids. Cervical/esophageal stage: Adequate function. IMPRESSION: Pharyngeal dysphagia with laryngeal penetration and aspiration with thin liquids. Please correlate with speech pathologist findings and specific feeding recommendations. Patient ordered a Minced & Moist, level 5 diet regular with mild thickened liquids and Sherwin 1 pack BID. Doxycycline 100 mg PO q12 and Levofloxacin 750 mg PO daily. (3) COPD (chronic obstructive pulmonary disease): Code(s): J44.9 - Chronic obstructive pulmonary disease, unspecified Status: Chronic Assessment and Plan: Continue neb treatments. White blood cells improved from 14.9> 9.7> 8.1> 8.3> 13.8>11.7> 8.2>8.8 Antibiotics switched to Doxycycline 100 mg PO q 12, Levofloxacin 750 mg PO daily, and Metronidazole 500 mg PO q 8. (4) Constipation: Code(s): K59.00 - Constipation, unspecified Status: Acute Assessment and Plan: bowel regimen- Lactulose 20 gm PO TID, Miralax, and Docusate/senna 2 tablets PO BID. KUB 08/28 showed:FINDINGS: Significant fecal stasis, visualized throughout the colon and distending the rectum. Multiple loops of dilated small and large bowel within the central abdomen. Redemonstration of both air and fluid opacification of the stomach, unchanged from CT examination performed 2 days earlier. IMPRESSION: Redemonstration of both fecal impaction and bowel dilatation, as detailed above. Encourage water intake. Bowel movement 09/01/24 KUB today showed: FINDINGS: The rectum is distended. There is a moderate volume of stool in the colon. IMPRESSION: 1. Distended rectum, consistent with adynamic ileus. continue bowel regimen. (5) Atrial fibrillation with controlled ventricular rate: Code(s): I48.91 - Unspecified atrial fibrillation Status: Chronic Assessment and Plan: rate controlled SR 84. (6) Chronic diastolic heart failure: Code(s): I50.32 - Chronic diastolic (congestive) heart failure Status: Acute Assessment and Plan: appears euvolemic (7) Methadone use: Code(s): F11.20 - Opioid dependence, uncomplicated Status: Acute Assessment and Plan: continue methadone (8) Obstructive sleep apnea: Code(s): G47.33 - Obstructive sleep apnea (adult) (pediatric) Status: Acute Assessment and Plan: CPAP at nighttime Subjective Date/time seen: 09/01/24 11:14 Interval history: Nurse reported that patient aspirated while eating and drinking water this morning. Patient denies chest pain, palpitations, shortness of breath, nausea, or vomiting. Son on phone with patient while in room, I spoke with son. Review of Systems Review of Systems: All systems reviewed & are unremarkable except as noted i
[2024-09-01 12:13] LABS: Glucose Point of Care 136 mg/dl (65-105)
--- NOTE | 2024-09-01 15:40 | PCSTNOTE ---
Please refer to the Modified Barium Swallow Evaluation in the EMR.
[2024-09-01] MEDS: methADONE HCL (*CRX) 5 MG TABLET PO (16:03)
[2024-09-01] MEDS: SUCRALFATE 1 GM TABLET PO (16:03)
[2024-09-01] MEDS: SIMETHICONE 125 MG CHEW TAB PO (16:04)
[2024-09-01] MEDS: GABAPENTIN 100 MG CAPSULE PO (16:04)
[2024-09-01] MEDS: OLANZapine 5 MG TABLET PO (16:04)
[2024-09-01] MEDS: LACTULOSE 20 GM/30 ML UDC PO (16:04)
[2024-09-01] MEDS: SENNA/DOCUSATE SODIUM TABLET 2 TAB PO (16:04)
[2024-09-01 17:56] LABS: Glucose Point of Care 124 mg/dl (65-105)
--- NOTE | 2024-09-01 18:26 | PC.NURSE ---
Prior to AM medication administration this RN performed a bedside swallow study with the pt d/t overnight RN reporting difficulty swallowing post SPT consult. Pt began coughing instantly with thin liquid intake. MD notified, meds held, and pt changed to NPO. Barium swallow study and KUB completed (see results). New diet order placed for minced and moist level 5 diet with level 2 (nectar thick) liquids. Pt received dinner tray with new diet and tolerated dinner well. Pt currently resting comfortably with 3L O2 via NC on (pt's baseline). Pt had a small, incontinent BM this morning. Pt denies all pain except when palpating lower abdomen and moving in the bed. Bilateral buttock wounds noted on pt's bottom. Wounds were cleaned and antifungal cream was applied topically after BM. Pt repositioned frequently and corral catheter remains in place and draining appropriately (see I/O). Pt's son updated at bedside on today's events.
[2024-09-01] MEDS: DOXYCYCLINE HYCLATE 100 MG TABLET PO (20:52)
[2024-09-01] MEDS: TAMSULOSIN HCL 0.4 MG CAPSULE PO (20:53)
[2024-09-01] MEDS: levoFLOXacin 750 MG TABLET PO (20:53)
[2024-09-01] MEDS: rOPINIRole HCL 1 MG TABLET PO (20:53)
[2024-09-01] MEDS: MIRTAZAPINE 15 MG TABLET PO (20:53)
[2024-09-01 23:57] LABS: Glucose Point of Care 123 mg/dl (65-105)
[2024-09-02] VITALS (26 sets, daily range): BP systolic 128–153; BP diastolic 61–88; PULSE 76–96; RESP 18–28; TEMP 36.4–36.8; O2SAT 93–100
[2024-09-02] MEDS: IPRATROPIUM 0.5 MG/ALBUTEROL SULFATE 2.5 MG AMPUL.NEB 3 ML INHALATION ×4 (01:29→20:36)
[2024-09-02 04:24] LABS: Basophils Percent Auto 0.6 % (0.2-1.2); Eosinophils Absolute Auto 0.5 K/mm3 (0-0.3); Eosinophils Percent Auto 7.6 % (0-4.4); Hematocrit 33.9 % (42.0-52.0); Hemoglobin 10.3 g/dL (14.0-18.0); Immature Granulocyte Absolute 0.06 K/mm3 (0.00-0.031); Immature Granulocyte Percent A 0.9 % (0-0.5); Lymphocytes Percent Auto 10.2 % (18.3-44.2); Mean Corpuscular HGB Conc 30.4 g/dl (32-36); Mean Corpuscular Hemoglobin 30.6 pg (26-34); Mean Corpuscular Volume 100.6 fl (80-100); Mean Platelet Volume 9.3 fl (7.4-10.4); Monocytes Absolute Auto 0.6 K/mm3 (0.1-0.6); Monocytes Percent Auto 8.2 % (2.6-8.5); Neutrophils Percent Auto 72.5 % (45.5-73.1); Platelet Count Result 150 k/mm3 (150-375); Red Blood Count 3.37 M/mm3 (4.6-6.20); Red Cell Distribution Width 13.2 % (11.5-14.5); White Blood Count 6.9 K/mm3 (4.5-10.0)
[2024-09-02 04:34] LABS: Alanine Aminotransferase 9 U/L (6-50); Albumin Level 2.7 g/dL (3.5-5.1); Alkaline Phosphatase 62 U/L (38-126); Aspartate Amino Transferase 16 U/L (17-59); Bilirubin,Total 0.3 mg/dL (0.2-1.3); Blood Urea Nitrogen 15 mg/dL (9-20); Calcium 8.7 mg/dL (8.4-10.2); Carbon Dioxide > 40 mmol/L (22-30); Chloride 94 mmol/L (98-107); Estimated CRCL calculation 64 ml/min; Estimated Glomerular Filt Rate > 60; Glucose 118 mg/dL (65-110); Potassium 3.9 mmol/L (3.4-5.0); Sodium 137 mmol/L (137-145)
[2024-09-02] MEDS: FLUTICASONE/SALMETEROL 45-21 MCG INHALER 1 PUFF 2 PUFF INHALATION ×2 (07:39→20:36)
[2024-09-02] MEDS: DOXYCYCLINE HYCLATE 100 MG TABLET PO ×2 (09:11→21:06)
[2024-09-02] MEDS: SENNA/DOCUSATE SODIUM TABLET 2 TAB PO ×2 (09:11→17:31)
[2024-09-02] MEDS: FLUoxetine HCL 20 MG CAPSULE PO (09:11)
[2024-09-02] MEDS: TOLTERODINE TARTRATE LA 4 MG CAP.ER.24H PO (09:11)
[2024-09-02] MEDS: LACTULOSE 20 GM/30 ML UDC PO ×3 (09:12→17:51)
[2024-09-02] MEDS: GABAPENTIN 100 MG CAPSULE PO ×3 (09:12→17:32)
[2024-09-02] MEDS: SIMETHICONE 125 MG CHEW TAB PO ×2 (09:12→17:31)
[2024-09-02] MEDS: SUCRALFATE 1 GM TABLET PO ×3 (09:12→17:31)
[2024-09-02] MEDS: OLANZapine 5 MG TABLET PO ×2 (09:12→17:31)
[2024-09-02] MEDS: methADONE HCL (*CRX) 5 MG TABLET PO ×2 (09:12→17:32)
[2024-09-02] MEDS: CLOPIDOGREL BISULFATE 75 MG TABLET PO (09:12)
[2024-09-02] MEDS: PANTOPRAZOLE 40 MG TABLET PO (09:12)
[2024-09-02] MEDS: buPROPion HCL XL (24 HR) 150 MG TABCR PO (09:13)
--- NOTE | 2024-09-02 09:30 | PM.IMPN ---
Progress Note: A&P Assessment and Plan (1) Sepsis: Code(s): A41.9 - Sepsis, unspecified organism Status: Acute Assessment and Plan: Meets SIRS criteria: tachycardia, febrile, encephalopathy - lactic acid: 0.9 - 500 ml bolus over 2 hours - blood cultures drawn on 08/29: NGTD - UA: turbid appearance with 2+ protein, 2+ ketones, 1+ blood, positive nitrates, 3+ leukocytes, 11-20 RBC, >100 WBC, triple phos crystals present, 4+ bacteria - UC obtained on 08/25: negative - CXR 08/29: No acute cardiopulmonary process. (2) Urinary tract infection: Code(s): N39.0 - Urinary tract infection, site not specified Status: Acute Assessment and Plan: - UA: turbid appearance with 2+ protein, 2+ ketones, 1+ blood, positive nitrates, 3+ leukocytes, 11-20 RBC, >100 WBC, triple phos crystals present, 4+ bacteria - UC obtained on 08/25: negative - previous micro reviewed 06/29/24: EColi ESBL - Barnard exchanged (3) Pneumonia: Qualifiers: Laterality: bilateral Lung location: unspecified part of lung Pneumonia type: due to unspecified organism Qualified Code(s): J18.9 - Pneumonia, unspecified organism Code(s): J18.9 - Pneumonia, unspecified organism Status: Acute Assessment and Plan: CXR 09/01: Atelectasis versus pneumonia in the right upper lobe unchanged from previous examination. No effusions or pneumothorax. Bilateral prominent markings with interstitial changes. MBS completed for aspiration concerns: Pharyngeal dysphagia with laryngeal penetration and aspiration with thin liquids. - Antibiotic: Doxycycline 100 mg PO q12 and Levofloxacin 750 mg PO daily, course to be completed on 09/04 - Viral PCR: negative for Flu/COVID/RSV - 2-3L NC baseline, monitor oxygen saturation - Minced and moist, level 5 diet with mild thickened liquids and Sherwin 1 pack BID, per speech therapy recommendations - Monitor vital signs, I&Os, neuro status and patient is a fall risk - Follow WBC, serum electrolytes, temperature curves and cultures (4) COPD (chronic obstructive pulmonary disease): Code(s): J44.9 - Chronic obstructive pulmonary disease, unspecified Status: Chronic Assessment and Plan: Exacerbation likely secondary to pneumonia - Monitor vital signs, I&Os, neuro status and patient is a fall risk - Monitor serum electrolytes, cultures and CBC - Monitor Oxygen saturation, Oxygen via NC; wean oxygen as tolerated, keep SpO2 greater than 88% - Duonebz q6H and Albuterol q2H prn - Antibiotics switched to Doxycycline 100 mg PO q 12, Levofloxacin 750 mg PO daily, and Metronidazole 500 mg PO q 8. (5) Ileus: Code(s): K56.7 - Ileus, unspecified Status: Acute Assessment and Plan: KUB 08/28 showed: Redemonstration of both fecal impaction and bowel dilatation, as detailed above. KUB 09/01: Distended rectum, consistent with adynamic ileus. - Last BM 09/02 - bowel regimen- Lactulose 20 gm PO TID, Miralax, and Docusate/senna 2 tablets PO BID. - Encourage water intake. - KUB ordered 09/03 to reevaluate (6) Atrial fibrillation with controlled ventricular rate: Code(s): I48.91 - Unspecified atrial fibrillation Status: Chronic Assessment and Plan: Chronic, rate controlled. Monitor (7) Chronic diastolic heart failure: Code(s): I50.32 - Chronic diastolic (congestive) heart failure Status: Acute Assessment and Plan: Does not appear to be in acute exacerbation. Euvolemic (8) Methadone use: Code(s): F11.20 - Opioid dependence, uncomplicated Status: Acute Assessment and Plan: continue methadone (9) Obstructive sleep apnea: Code(s): G47.33 - Obstructive sleep apnea (adult) (pediatric) Status: Acute Assessment and Plan: CPAP at nighttime Time Spent With Patient Time with patient: 25 - 35 minutes Subjective Date/time seen: 09/02/24 09:30 Interval history: 78-year-old male
[2024-09-02 11:39] LABS: Glucose Point of Care 169 mg/dl (65-105)
[2024-09-02] MEDS: metroNIDAZOLE 500 MG TABLET PO ×2 (13:51→21:05)
--- NOTE | 2024-09-02 14:40 | PCOTNOTE ---
Attempted to see Patient at this time. Patient refused to participate, verbalized, very tired, need sleep, hard to get people to leave you alone in this place . Patient declined all activities.
[2024-09-02] MEDS: MIRTAZAPINE 15 MG TABLET PO (21:05)
[2024-09-02] MEDS: rOPINIRole HCL 1 MG TABLET PO (21:06)
[2024-09-02] MEDS: levoFLOXacin 750 MG TABLET PO (21:06)
[2024-09-03] VITALS (17 sets, daily range): BP systolic 101–136; BP diastolic 54–72; PULSE 72–93; RESP 20–24; TEMP 36.6–36.7; O2SAT 93–96
[2024-09-03] MEDS: IPRATROPIUM 0.5 MG/ALBUTEROL SULFATE 2.5 MG AMPUL.NEB 3 ML INHALATION ×3 (03:00→14:26)
[2024-09-03 04:42] LABS: Basophils Absolute Auto 0.1 K/mm3 (0.0-0.1); Basophils Percent Auto 0.7 % (0.2-1.2); Eosinophils Absolute Auto 0.5 K/mm3 (0-0.3); Hematocrit 33.7 % (42.0-52.0); Hemoglobin 10.3 g/dL (14.0-18.0); Immature Granulocyte Absolute 0.04 K/mm3 (0.00-0.031); Immature Granulocyte Percent A 0.6 % (0-0.5); Lymphocytes Absolute Auto 0.94 K/mm3 (0.9-3.2); Lymphocytes Percent Auto 13.8 % (18.3-44.2); Mean Corpuscular HGB Conc 30.6 g/dl (32-36); Mean Corpuscular Hemoglobin 30.6 pg (26-34); Mean Platelet Volume 9.2 fl (7.4-10.4); Monocytes Absolute Auto 0.6 K/mm3 (0.1-0.6); Monocytes Percent Auto 8.4 % (2.6-8.5); Neutrophils Absolute Auto 4.7 K/mm3 (1.3-6.7); Neutrophils Percent Auto 69.5 % (45.5-73.1); Platelet Count Result 167 k/mm3 (150-375); Red Blood Count 3.37 M/mm3 (4.6-6.20); Red Cell Distribution Width 13.2 % (11.5-14.5); White Blood Count 6.8 K/mm3 (4.5-10.0)
[2024-09-03 05:01] LABS: Alanine Aminotransferase 10 U/L (6-50); Albumin Level 2.7 g/dL (3.5-5.1); Alkaline Phosphatase 59 U/L (38-126); Aspartate Amino Transferase 24 U/L (17-59); Bilirubin,Total 0.3 mg/dL (0.2-1.3); Blood Urea Nitrogen 21 mg/dL (9-20); Carbon Dioxide > 40 mmol/L (22-30); Chloride 94 mmol/L (98-107); Estimated CRCL calculation 52 ml/min; Estimated Glomerular Filt Rate > 60; Glucose 95 mg/dL (65-110); Potassium 3.8 mmol/L (3.4-5.0); Sodium 138 mmol/L (137-145)
[2024-09-03] MEDS: LEVOTHYROXINE SODIUM 25 MCG TABLET PO (05:38)
[2024-09-03] MEDS: metroNIDAZOLE 500 MG TABLET PO ×2 (05:38→12:49)
[2024-09-03] MEDS: FLUTICASONE/SALMETEROL 45-21 MCG INHALER 1 PUFF 2 PUFF INHALATION (08:38)
[2024-09-03] MEDS: SUCRALFATE 1 GM TABLET PO ×2 (09:39→12:49)
[2024-09-03] MEDS: TOLTERODINE TARTRATE LA 4 MG CAP.ER.24H PO (09:39)
[2024-09-03] MEDS: SENNA/DOCUSATE SODIUM TABLET 2 TAB PO (09:39)
[2024-09-03] MEDS: SIMETHICONE 125 MG CHEW TAB PO (09:39)
[2024-09-03] MEDS: GABAPENTIN 100 MG CAPSULE PO ×2 (09:39→12:49)
[2024-09-03] MEDS: CLOPIDOGREL BISULFATE 75 MG TABLET PO (09:39)
[2024-09-03] MEDS: DOXYCYCLINE HYCLATE 100 MG TABLET PO (09:40)
[2024-09-03] MEDS: OLANZapine 5 MG TABLET PO (09:40)
[2024-09-03] MEDS: LACTULOSE 20 GM/30 ML UDC PO ×2 (09:40→12:49)
[2024-09-03] MEDS: buPROPion HCL XL (24 HR) 150 MG TABCR PO (09:40)
[2024-09-03] MEDS: PANTOPRAZOLE 40 MG TABLET PO (09:40)
[2024-09-03] MEDS: methADONE HCL (*CRX) 5 MG TABLET PO (09:40)
[2024-09-03] MEDS: FLUoxetine HCL 20 MG CAPSULE PO (09:40)
--- NOTE | 2024-09-03 11:45 | PCNFU ---
Nutrition Follow-Up Complete: 1. Inadequate oral intake related to nausea and vomiting as evidenced by clear liquids 2. Increased protein energy needs related to wound healing as evidenced by stage III pressure ulcer to buttock Goal:Improve PO intake when diet is advanced to support wound healing Pt progressing towards goal. Pt current nutrition is Minced and moist level 5, level 2 mildly thick liquids, RA BID. Nutrition recommendation: Add Ensure compact BID Last recorded weight is 87.5 kg. Bowel Motility: +BM 09/02 Labs Reviewed: Hgb:10.3, HCT:33.7, Alb:2.7, BUN:21 Meds Noted: remeron, miralax, protonix Skin: Stage III to buttocks Additional Notes: Pt had an MBS with speech, recommended a minced and moist level 5 diet consistency with a level 2 mildly thick liquid consistency. Intake 25--50% at this time, RA BID in place, will add Ensure compact BID for additional supplementation. Encourage po intake. Monitoring diet orders, intakes, weights, labs, wound status, plan of care Follow up in 7 days
--- NOTE | 2024-09-03 12:03 | PM.DS ---
DS: Admitting Diagnosis Discharge Date 09/03/2024 Admitting Diagnosis Sepsis UTI Pneumonia COPD Ileus A fib Chronic diastolic heart failure Methadone ANIA DS: Discharge Diagnosis Discharge Diagnosis (1) Sepsis: Code(s): A41.9 - Sepsis, unspecified organism Status: Acute (2) Urinary tract infection: Code(s): N39.0 - Urinary tract infection, site not specified Status: Acute (3) Pneumonia: Qualifiers: Laterality: bilateral Lung location: unspecified part of lung Pneumonia type: due to unspecified organism Qualified Code(s): J18.9 - Pneumonia, unspecified organism Code(s): J18.9 - Pneumonia, unspecified organism Status: Acute (4) COPD (chronic obstructive pulmonary disease): Code(s): J44.9 - Chronic obstructive pulmonary disease, unspecified Status: Chronic (5) Ileus: Code(s): K56.7 - Ileus, unspecified Status: Acute (6) Atrial fibrillation with controlled ventricular rate: Code(s): I48.91 - Unspecified atrial fibrillation Status: Chronic (7) Chronic diastolic heart failure: Code(s): I50.32 - Chronic diastolic (congestive) heart failure Status: Acute (8) Methadone use: Code(s): F11.20 - Opioid dependence, uncomplicated Status: Acute (9) Obstructive sleep apnea: Code(s): G47.33 - Obstructive sleep apnea (adult) (pediatric) Status: Acute DS: Summary Hospital Course Reason for hospitalization: Sepsis UTI Pneumonia COPD Ileus A fib Chronic diastolic heart failure Methadone ANIA Hospital Course: 78-year-old male with history of non-small cell lung cancer considered to be in remission, chronic obstructive pulmonary disease, coronary artery disease, heart failure with preserved ejection fraction, paroxysmal atrial fibrillation on chronic anticoagulation, type 2 diabetes mellitus, hypothyroidism, and other comorbidities who presented to the emergency department via EMS from [facility] for evaluation of nausea/vomiting. Patient was meeting SIRs criteria on admission. Received fluids. Sepsis resolved during admission. UA concerning for UTI, started on IV antibiotics however culture came back negative. Patients corral was exchanged. KUB 08/28 showed redemonstration of both fecal impaction and bowel dilatation. Started on bowel regimen. KUB 09/01 distended rectum, consistent with adynamic ileus. Patient had large bowel movement on 09/02 and passing flatus. KUB obtained on 09/03 and showed nonspecific bowel gas pattern with no dilated loops of bowel to suggest obstruction. Patient was tolerating a diet well and denied abdominal pain, nausea and vomiting. CXR 09/01 showed atelectasis versus pneumonia in the right upper lobe unchanged from previous examination. No effusions or pneumothorax. Bilateral prominent markings with interstitial changes. Started on antibiotics. Concern for aspiration pneumonia. Speech therapy consulted and MBS showed pharyngeal dysphagia with laryngeal penetration and aspiration with thin liquids. Patient diet changed to minced and moist, level 5 diet with mild thickened liquids and Sherwin 1 pack BID. He is to continue this diet at time of discharge. Patient is to complete his antibiotics as prescribed. Prior to discharge patient denied chest pain, shortness of breath, nausea/vomiting and abdominal pain. Patient discharged back [facility] in stable condition. He is to follow up with her PCP in 1 week and complete his course of antibiotics as prescribed. Time Spent with Patient Time attestation: Total time spent providing and/or coordinating discharge services: Time spent: Greater than 30 minutes Exam Narrative: AF HR 89 RR 20 SPO2 93 (3 L NC baseline) BP 101/60 General: male in no acute respiratory distress who is nontoxic appearing, sitting up in bed. HEENT: Normocephalic. Atraumatic. Extraocular movement intact. No facial asymmetry. Chest: Lungs are clear to a
--- NOTE | 2024-09-03 13:55 | PC.NURSE ---
DC orders placed for this pt. long-term packet received from care coordination and this RN attempted to call report x2 to phone number [phone]. Phone number goes to a voice mail box. Message left and requested a return phone call from RN receiving a new pt. No names/identifying information given.
--- NOTE | 2024-09-03 14:07 | PC.NURSE ---
Attempted to call report to [facility] again for pt to DC. Phone continued to ring with no answer for 2 minutes. Will attempt to call again.
== END 2024-09-03 15:49 | DRG 871 ==
LOC: ANHED 18:06 → ANH3MED 21:25 → ANHIMU 08-29 20:34
PROVIDERS: Internal Medicine; Nurse Practitioner Family; Admitting Provider Internal Medicine; Emergency Provider Emergency Medicine; PCP Family Medicine; Visit Provider Student in an Organized Health Care Education/Training Program
DX: A41.9 Sepsis, unspecified organism (principal); J18.9 Pneumonia, unspecified organism; J96.02 Acute respiratory failure with hypercapnia; J96.01 Acute respiratory failure with hypoxia; C34.90 Malignant neoplasm of unspecified part of unspecified bronchus or lung; K56.0 Paralytic ileus; N39.0 Urinary tract infection, site not specified; F11.20 Opioid dependence, uncomplicated; I50.32 Chronic diastolic (congestive) heart failure; J44.1 Chronic obstructive pulmonary disease with (acute) exacerbation; E03.9 Hypothyroidism, unspecified; E11.42 Type 2 diabetes mellitus with diabetic polyneuropathy; E78.2 Mixed hyperlipidemia; G47.33 Obstructive sleep apnea (adult) (pediatric); I25.10 Atherosclerotic heart disease of native coronary artery without angina pectoris; I48.91 Unspecified atrial fibrillation; I48.0 Paroxysmal atrial fibrillation; K56.41 Fecal impaction; R65.20 Severe sepsis without septic shock; R13.13 Dysphagia, pharyngeal phase; Z79.01 Long term (current) use of anticoagulants; Z74.01 Bed confinement status; Z87.891 Personal history of nicotine dependence
CPT/HCPCS: 36415; 36600; 70450; 71045; 74018; 74177; 80048; 80053; 81001; 82375; 82805; 82948; 83050; 83605; 83690; 83735; 84145; 85018; 85025; 85055; 87040; 87086; 87641; 92526; 92610; 92611; 94002; 94640; 96365; 96375; 97161; 97165; 97530; 97535; 99285; A9270; G0378; J0692; J0696; J1836; J1940; J1956; J3370; J7040; Q9967

== ENCOUNTER 2024-10-05 05:57 | Inpatient (IN) | payer MEDICARE, MEDICAID, SELFPAY ==
[2024-10-05] VITALS (30 sets, daily range): BP systolic 141–174; BP diastolic 78–112; PULSE 101–125; RESP 20–40; TEMP 37–37.9; O2SAT 93–98; BMI 28.4
--- NOTE | ~2024-10-05 | XR_ITS ---
EXAMINATION: XR abdomen/kub 1V DATE: 10/05/2024 17:21 INDICATION: Abdominal distention. Constipation. TECHNIQUE: A supine view of the abdomen on 2 radiographs was obtained. COMPARISON: CT abdomen and pelvis 08/25/2024 FINDINGS: There is gaseous distention of the stomach. The rectosigmoid is distended and stool-filled. The small bowel is normal in caliber. IMPRESSION: 1. Distended stool-filled rectosigmoid, likely adynamic ileus. 2. Gaseous distention of the stomach. Reviewed, dictated and finalized at location A. FORMER MACHINE OPERATOR
--- NOTE | ~2024-10-05 | US_ITS ---
EXAMINATION: US venous doppler [facility] DATE: 10/08/2024 19:06 INDICATION: Positive d-dimer. Respiratory failure. TECHNIQUE: Grayscale ultrasound images without and with compression and Doppler ultrasound images of the bilateral lower extremity veins were obtained. COMPARISON: Ultrasound 01/06/2022 FINDINGS: The visualized portions of right common femoral vein, profunda (deep) femoral vein, peroneal veins, p osterior tibial veins, and greater saphenous vein outflow are patent. There is thrombus in right femo ral vein. Right popliteal vein was not evaluated. The visualized portions of left common femoral vein, profunda femoral vein, femoral vein, popliteal v ein, peroneal veins, posterior tibial veins, and greater saphenous vein outflow are patent. IMPRESSION: 1. Deep vein thrombosis involving right femoral vein. Reviewed, dictated and finalized at location A. DISPATCHER
--- NOTE | ~2024-10-05 | XR_ITS ---
EXAMINATION: XR chest 1V portable DATE: 10/10/2024 08:01 INDICATION: Hypoxia TECHNIQUE: frontal view of the chest was obtained. COMPARISON: Chest radiograph dated 10/08/2024 FINDINGS: Right internal jugular central venous port catheter with distal tip near the superior cavoatrial junc tion. Unchanged volume loss with architectural distortion in the right hemithorax with appearance on prior CT suggesting radiation fibrosis. Persistent consolidation in the right upper lobe consistent w ith pneumonia. Coarse interstitial and mild airspace opacities in bilateral mid and lower lung zones. No pleural effusion or pneumothorax. Cardiomegaly. IMPRESSION: 1. Unchanged consolidation in the right upper lobe consistent with pneumonia. 2. Mild interval increase in coarse interstitial and mild airspace opacities in bilateral mid and low er lung zones which could represent atelectasis, mild pulmonary edema, additional pneumonia or some c ombination thereof. 3. Volume loss and architectural distortion right lung likely related to radiation treatment for repo rted prior lung cancer. 4. Cardiomegaly. Reviewed, dictated and finalized at location A. OL COMMISSIONER IMPRESSION: 1. Unchanged consolidation in the right upper lobe consistent with pneumonia. 2. Mild interval increase in coarse interstitial and mild airspace opacities in bilateral mid and lower lung zones which could represent atelectasis, mild pul monary edema, additional pneumonia or some combination thereof. 3. Volume loss and architectural distortion right lung likely related to radiat ion treatment for reported prior lung cancer. 4. Cardiomegaly.
--- NOTE | ~2024-10-05 | XR_ITS ---
Portable chest x-ray Comparison: 09/01/2024 Clinical History: Dyspnea Findings: Right-sided Mediport unchanged. Stable probable loculated right pleural effusion rather de nse consolidation. Stable interstitial disease or COPD change and aerated lungs. Cardiomediastinal s ilhouette is stable. Bones and soft tissues are unremarkable. Impression: No acute abnormality. No change from prior exam. Stable loculated effusion or other dense consolidation the right lung apex. Background COPD changes or other chronic interstitial disease. Right-sided Mediport. Reviewed, dictated and finalized at location . TIONAL SUPPORT ANALYST Impression: No acute abnormality. No change from prior exam. Stable loculated effusion or other dense consolidation the right lung apex. Background COPD changes or other chronic interstitial disease. Right-sided Mediport.
--- NOTE | ~2024-10-05 | XR_ITS ---
Portable chest x-ray Comparison: 10/05/2024 Clinical History: Respiratory failure Findings: Stable right-sided Mediport. Stable dense airspace opacity at the right lung apex region. No other acute pulmonary abnormalities seen. Cardiomediastinal silhouette is stable. Bones and soft tissues are unremarkable. Impression: Stable dense airspace opacity right lung apex region, which could reflect loculated effusion, or poss ibly right upper lobe collapse. Stable right-sided Mediport. Reviewed, dictated and finalized at location . R QUALITY SPECIALIST Impression: Stable dense airspace opacity right lung apex region, which could reflect locul ated effusion, or possibly right upper lobe collapse. Stable right-sided Mediport.
--- NOTE | ~2024-10-05 | XR_ITS ---
EXAM: XR abdomen/kub 1V DATE: 10/12/2024 18:08 HISTORY: constipation . COMPARISON: 10/08/2024. FINDINGS: Left hemidiaphragm elevation. Moderate, overall decreased volume of colonic fecal material . Decreased fecal material overlying the pelvis Normal bowel gas pattern. No organomegaly. Rotatory s coliosis with multilevel degenerative disc disease. Bilateral hip osteoarthritis. IMPRESSION: Decreasing volume of colonic fecal material. Reviewed, dictated and finalized at location K. LE CARD MAKER
--- NOTE | ~2024-10-05 | CT_ITS ---
EXAMINATION: CTA chest PE protocol DATE: 10/06/2024 23:00 INDICATION: Dyspnea. TECHNIQUE: Computed tomography angiography (CTA) of the chest was performed with 100 mL Omnipaque-350 intravenous contrast timed to evaluate the pulmonary arteries. Coronal maximum intensity projection 3D-reconstructions were created by the technologist. Automated exposure control and iterative reconst ruction technique were employed. The dose-length product was 730.73 mGy-cm. COMPARISON: Chest CT 07/23/2023 FINDINGS: There are calcified pleural plaques on the right. There are airspace opacities with volume loss involving right upper lobe and superior segment right lower lobe, consistent with radiation fibr osis. There are peripheral nodules and airspace opacities in right lower lobe, consistent with pneumo estee. There are airspace opacities in left lower lobe, consistent with pneumonia. No pleural effusion. Cardiomegaly is noted. There are coronary artery calcifications. No pericardial effusion. There is n o pulmonary embolus. There is bilateral gynecomastia. There is a right internal jugular port with tip in right atrium. There is severe thoracic spondylosis. IMPRESSION: 1. No pulmonary embolus. Sensitivity is mildly decreased by motion artifact. 2. Bilateral lower lobe pneumonia. 3. Radiation fibrosis involving right upper lobe and superior segment right lower lobe. Reviewed, dictated and finalized at location A. TRICAL ASSEMBLY TECHNICIAN IMPRESSION: 1. No pulmonary embolus. Sensitivity is mildly decreased by motion artifact. 2. Bilateral lower lobe pneumonia. 3. Radiation fibrosis involving right upper lobe and superior segment right low er lobe.
--- NOTE | ~2024-10-05 | XR_ITS ---
Supine and upright views of the abdomen Clinical history: Ileus COMPARISON: 10/05/2024 Findings: Large amount of stool present at the rectum. Large distal present around the large bowel as well. Small bowel is nondistended. No abnormal mass lesion or calcification is seen. Degenerative ch anges are noted in the spine and hips. Impression: Fecal impaction and constipation. Reviewed, dictated and finalized at location . M FINISHER Impression: Fecal impaction and constipation.
--- NOTE | 2024-10-05 06:02 | ECG_ITS ---
Test Date: 2024-10-05 06:07:06 Measurements Intervals [place] Rate: 122 P: 85 NV: 176 QRS: 41 QRSD: 100 T: 97 QT: 418 QTc: 597 Interpretive Statements SINUS TACHYCARDIA WITH FREQUENT VENTRICULAR PREMATURE COMPLEXES NONSPECIFIC ST & T-WAVE ABNORMALITY- DIFFUSE LEADS BASELINE ARTIFACT- I, II, III, AVR, AVL, AVF, V2-V6 ABNORMAL ECG Compared to ECG 06/30/2024 10:12:27 HEART RATE HAS INCREASED Electronically Signed On 10-05-2024 06:34:01 [employer]ABLE[employer]AY O[employer]ATOR by Trell Walters D.O.
--- NOTE | 2024-10-05 06:21 | PC.NURSE ---
Upon patient arrival to department, pt was suctioned by rt Rivas.
--- NOTE | 2024-10-05 06:26 | ED.GENADULT ---
HPI - General Adult General Chief complaint: Shortness of Breath/Dyspnea Stated complaint: resp distress Time Seen by Provider: 10/05/24 06:04 History of Present Illness HPI narrative: Patient 78-year-old gentleman who presents emergency department chief complaint of shortness of breath patient has prior history of atrial fibrillation and has had increasing shortness of breath at the facility where he is resident at the patient is a DNR. Patient reports that he is concerned that he may have pneumonia Related Data Home Medications Medication Instructions Recorded Confirmed ropinirole 1 mg tablet 1 mg PO HS 12/18/19 08/25/24 bupropion HCl 300 mg 24 hr tablet, 150 mg PO DAILY 03/09/21 08/25/24 extended release tamsulosin 0.4 mg capsule 0.4 mg PO HS 02/26/22 08/25/24 albuterol sulfate 90 mcg/actuation 1 puff inhalation Q4H PRN 07/27/22 08/25/24 aerosol inhaler Shortness Of Breath ondansetron 8 mg disintegrating 8 mg PO Q8H PRN Nausea 08/10/22 08/25/24 tablet Pro-Stat Sugar Free 30 ml PO DAILY 03/23/23 08/25/24 acetaminophen 325 mg tablet 650 mg PO Q6H PRN Pain, Mild 03/23/23 08/25/24 ascorbic acid (vitamin C) 500 mg 500 mg PO BID 03/23/23 08/25/24 tablet bisacodyl 5 mg tablet,delayed 10 mg PO BID 03/23/23 08/25/24 release (Dulcolax (bisacodyl)) lactulose 10 gram/15 mL oral 20 g PO TID 03/23/23 08/25/24 solution methadone 5 mg tablet 5 mg PO BID 03/23/23 08/25/24 multivit with minerals-iron 18 1 tablet PO DAILY 03/23/23 08/25/24 mg-folic ac 400 mcg-vit K 25 mcg tablet (Adults Multivitamin) levalbuterol HCl 1.25 mg/3 mL 1.25 mg inhalation Q6H PRN SOB 07/23/23 08/25/24 solution for nebulization levothyroxine 25 mcg tablet 25 mcg PO DAILY 07/23/23 08/25/24 polyethylene glycol 3350 17 gram 17 g PO DAILY PRN Constipation 07/23/23 08/25/24 oral powder packet (Miralax) sucralfate 1 gram tablet (Carafate) 1 g PO TID 07/23/23 08/25/24 trimethobenzamide 100 mg/mL 100 mg IM ONCE PRN migraines 07/23/23 08/25/24 intramuscular solution (Tigan) fluoxetine 20 mg capsule 20 mg PO DAILY 06/28/24 08/25/24 olanzapine 5 mg tablet 5 mg PO BID 06/28/24 08/25/24 potassium chloride 20 mEq 20 meq PO BID 07/04/24 08/25/24 tablet,extended release clopidogrel 75 mg tablet (Plavix) 75 mg PO DAILY 08/25/24 08/25/24 diphenhydramine HCl 25 mg tablet 25 mg PO TID PRN allergies 08/25/24 08/25/24 (Benadryl Allergy) mirtazapine 15 mg tablet (Remeron) 15 mg PO HS 08/25/24 08/25/24 polyethylene glycol 3350 17 17 g PO DAILY 08/25/24 08/25/24 gram/dose oral powder (Miralax) trospium 20 mg tablet 20 mg PO BID 08/25/24 08/25/24 Allergies Allergy/AdvReac Type Severity Reaction Status Date / Time Penicillins Allergy Unknown SHORTNESS Verified 08/25/24 17:27 OF BREATH Review of Systems Review of Systems: A 10 system review of systems was completed on the patient and is negative except for what is stated in the HPI. Nursing and ancillary documentation was reviewed. [facility] Past Medical History Medical History Aortic valve stenosis Arthritis (03/26/19) Atrial fibrillation with controlled ventricular rate Benign prostatic hyperplasia Chronic congestive heart failure Chronic obstructive pulmonary disease Coronary artery disease (2019) Non-STEMI - left heart cath showed mild coronary artery disease with severe LV dysfunction EF 20% with possible underlying nonischemic cardiomyopathy, no PCI. Depression Diabetes mellitus Diabetic polyneuropathy associated with type 2 diabetes mellitus Fibromyalgia Hypothyroidism Mixed hyperlipidemia Non-small cell carcinoma of lung Status post chemo radiation. Obstructive sleep apnea Restless legs syndrome Sacral decubitus ulcer Type 2 diabetes mellitus Surgical History Surgical History History of hernia repair Umbilical hernia repair. Bilateral inguinal hernia repairs. Family History Family History Sibling Patient's sister is in good health Hypertension Family history of heart disease in male family member before age 55 Mother Family history of heart disease in male family member before age 55 Patient's mother is Family history of congestive heart failure, Onset Age: 70 Father Patient's father is Acute myocardial infarction, Onset Age: 62 Grandparent Depression Family history of arthritis Family history of malignant neoplasm of breast Family history of heart disease in male family member before age 55 Other Cerebrovascular accident Family history of cardiovascular disease Social History Social History Social History: Code status: Full code. Smoking packs per day: 1.5 Smoking cigarettes per day: 30.0 Years smoked: 30 Smoking pack-years: 45.00 Smoking status: Former smoker Second hand tobacco smoke exposure: Yes Alcohol intake: never Substance use: never Substance use type: does not use Do You Feel Safe in your Home?: Yes Lack of Transportation: No Lack of Food: Never True Current Housing: I Have Housing Concerned About Future Housing: No Difficulty Paying Gas/Electric Bills: No Difficulty Paying for Meds: No Currently Unemployed: No Education: Bachelor's Degree Difficulty w/ Childcare or Family Care: No Living arrangements: assisted living Spiritual care concerns: No Exam Narrative: GENERAL: Ill-appearing, well-nourished, and in moderate acute respiratory distress. HEAD: Normocephalic, atraumatic. EYES: PERRLA and EOMI. ENT: Nares clear, no rhinorrhea or epistaxis. Mucous membranes moist. NECK: Supple. CHEST: Coarse breath sounds to auscultation. Moderate respiratory distress. HEART: Regular rate and rhythm. No murmur heard. Normal peripheral pulses. ABDOMEN: Soft, nontender, nondistended, normal active bowel sounds. EXTREMITIES: Normal range of motion. No edema. SKIN: Warm, dry, no rash. NEURO: No focal deficits. Alert and oriented x3. PSYCH: Normal mood and affect. Course Vital Signs Vital signs: Vital Signs Pulse Rate 124 H 10/05/24 05:57 Respiratory Rate 32 H 10/05/24 05:57 Blood Pressure 174/100 H 10/05/24 05:57 Pulse Oximetry 97 10/05/24 05:57 Oxygen Delivery Non-Rebreather Mask 10/05/24 05:57 Oxygen Flow Rate 15 10/05/24 05:57 Pulse Rate 118 H 10/05/24 06:48 Respiratory Rate 31 H 10/05/24 06:48 Blood Pressure 157/78 H 10/05/24 06:37 Pulse Oximetry 95 10/05/24 06:37 Oxygen Delivery BiPAP 10/05/24 06:30 Oxygen Flow Rate 15 10/05/24 06:02 Medical Decision Making Vital Signs Vital Signs: Vital Signs Pulse Rate 124 H 10/05/24 05:57 Respiratory Rate 32 H 10/05/24 05:57 Blood Pressure 174/100 H 10/05/24 05:57 Pulse Oximetry 97 10/05/24 05:57 Oxygen Delivery Non-Rebreather Mask 10/05/24 05:57 Oxygen Flow Rate 15 10/05/24 05:57 Pulse Rate 118 H 10/05/24 06:48 Respiratory Rate 31 H 10/05/24 06:48 Blood Pressure 157/78 H 10/05/24 06:37 Pulse Oximetry 95 10/05/24 06:37 Oxygen Delivery BiPAP 10/05/24 06:30 Oxygen Flow Rate 15 10/05/24 06:02 Lab Data 10/05/24 06:12 10/05/24 06:12 Labs: Lab Results 10/05/24 10/05/24 Range/Units 06:12 06:35 WBC 10.9 H (4.5-10.0) K/mm3 RBC 4.40 L (4.6-6.20) M/mm3 Hgb 13.7 L D (14.0-18.0) g/dL Hct 43.4 (42.0-52.0) % MCV 98.6 (80-100) fl MCH 31.1 (26-34) pg MCHC 31.6 L (32-36) g/dl RDW 14.1 (11.5-14.5) % Plt Count 116 L (150-375) k/mm3 MPV 10.8 H (7.4-10.4) fl Immature Gran % (Auto) 0.6 H (0-0.5) % Neut % (Auto) 93.9 H (45.5-73.1) % Lymph % (Auto) 2.7 L (18.3-44.2) % [place] % (Auto) 2.5 L (2.6-8.5) % Eos % (Auto) 0.1 (0-4.4) % Baso % (Auto) 0.2 (0.2-1.2) % Lymph # (Auto) 0.30 L (0.9-3.2) K/mm3 [place] # (Auto) 0.3 (0.1-0.6) K/mm3 Eos # (Auto) 0.0 (0-0.3) K/mm3 Baso # (Auto) 0.0 (0.0-0.1) K/mm3 Abs Immat Gran (auto) 0.07 H (0.00-0.031) K/mm3 Absolute Neuts (auto) 10.3 H (1.3-6.7) K/mm3 Absolute Nucleated RBC 0.000 (0.0-0.012) K/mm3 Nucleated RBC % 0.0 (0.0-0.2) % PT 15.6 H (11.1-14.7) Seconds INR 1.2 APTT 30.1 (22.3-36.8) Seconds Sodium 139 (137-145) mmol/L Potassium 4.1 (3.4-5.0) mmol/L Chloride 101 (98-107) mmol/L Carbon Dioxide 31 H (22-30) mmol/L Anion Gap 7 (4-12) mmol/L BUN 18 (9-20) mg/dL Creatinine 0.80 (0.7-1.3) mg/dL Estim Creat Clear Calc 70 ml/min Estimated GFR > 60 (59 - ) Glucose 118 H (65-110) mg/dL Lactic Acid 1.2 (0.7-2.0) mmol/L Calcium 8.8 (8.4-10.2) mg/dL Magnesium 1.6 (1.6-2.3) mg/dL Total Bilirubin 1.0 (0.2-1.3) mg/dL AST 18 (17-59) U/L ALT 11 (6-50) U/L Alkaline Phosphatase 91 (38-126) U/L Troponin I < 0.012 (0.000-0.034) ng/mL NT-Pro-B Natriuret Pep 653 H (19.9-100) pg/mL Total Protein 8.0 (6.3-8.2) g/dL Albumin 3.8 (3.5-5.1) g/dL Lipase 26 (23-300) U/L Procalcitonin Pending Urine Color Pending Urine Appearance Pending Urine pH Pending Ur Specific [place] Pending Urine Protein Pending Urine Glucose (UA) Pending Urine Ketones Pending Ur Blood (Man) Pending Urine Nitrate Pending Urine Bilirubin Pending Urine Urobilinogen Pending Leukocyte Esterase Rfl Pending Influenza A (RT-PCR) Negative (Negative) Influenza B (RT-PCR) Negative (Negative) RSV (RT-PCR) Negative (Negative) SARS-CoV-2 RNA (RT-PCR) Negative (Negative) ABG Data ABG results: 10/05/24 06:23 Puncture Site Right radial ABG pH 7.330 L ABG pCO2 61.5 H* ABG pO2 149.2 H ABG PO2/FiO2 Ratio 1.49 ABG HCO3 31.7 H ABG O2 Saturation 98.7 ABG O2 Content 19.0 ABG Base Excess 4.0 A-a Gradient 502.3 Oxyhemoglobin 96.4 Total Hemoglobin 13.8 O2 Delivery Device Non-rebreather mask O2 Liters/Min 15.0 FiO2 100 Discharge Plan Discharge Clinical Impression: Acute hypoxemic respiratory failure, COPD (chronic obstructive pulmonary disease) Patient Disposition: Still a Patient Condition: Stable Prescriptions: No Action ondansetron 8 mg Tablet,Disintegrating 8 mg PO Q8H PRN (Reason: Nausea) ropinirole 1 mg tablet 1 mg PO HS albuterol sulfate 90 mcg/actuation HFA aerosol inhaler 1 puff INHALATION Q4H PRN (Reason: Shortness Of Breath) acetaminophen 325 mg Tablet 650 mg PO Q6H PRN (Reason: Pain, Mild) ascorbic acid (vitamin C) 500 mg Tablet 500 mg PO BID bisacodyl [Dulcolax (bisacodyl)] 5 mg Tablet,Delayed Release (Dr/Ec) 10 mg PO BID lactulose 10 gram/15 mL Solution 20 g PO TID Adults Multivitamin 18 mg iron-400 mcg-25 mcg Tablet 1 tablet PO DAILY Pro-Stat Sugar Free 15 gram liquid 30 ml PO DAILY methadone 5 mg tablet 5 mg PO BID bisacodyl 10 mg Suppository 10 mg RECTAL DAILY PRN (Reason: Constipation) Qty: 12 0RF sucralfate [Carafate] 1 gram Tablet 1 g PO TID levothyroxine 25 mcg Tablet 25 mcg PO DAILY polyethylene glycol 3350 [Miralax] 17 gram powder in packet 17 g PO DAILY PRN (Reason: Constipation) Tigan 100 mg/mL solution 100 mg IM ONCE PRN (Reason: migraines) levalbuterol HCl 1.25 mg/3 mL solution for nebulization 1.25 mg inhalation Q6H PRN (Reason: SOB) pantoprazole 40 mg tablet,delayed release (DR/EC) 40 mg PO QAM Qty: 30 0RF bupropion HCl 300 mg tablet extended release 24 hr 150 mg PO DAILY olanzapine 5 mg Tablet 5 mg PO BID fluoxetine 20 mg Capsule 20 mg PO DAILY potassium chloride 20 mEq Tablet Extended Release 20 meq PO BID ipratropium bromide 0.02 % Solution 0.5 mg inhalation TID Qty: 75 0RF Symbicort 2 puff inhalation BID Qty: 1 0RF clopidogrel [Plavix] 75 mg Tablet 75 mg PO DAILY diphenhydramine HCl [Benadryl Allergy] 25 mg Tablet 25 mg PO TID PRN (Reason: allergies) mirtazapine [Remeron] 15 mg Tablet 15 mg PO HS polyethylene glycol 3350 [Miralax] 17 gram/dose Powder 17 g PO DAILY trospium 20 mg Tablet 20 mg PO BID Rx Instructions: administer on an empty stomach metronidazole 500 mg Tablet 500 mg PO Q8HR Qty: 5 0RF doxycycline hyclate 100 mg Tablet 100 mg PO Q12HR Qty: 3 0RF levofloxacin 750 mg tablet 750 mg PO DAILY Qty: 2 0RF tamsulosin 0.4 mg capsule 0.4 mg PO HS gabapentin 100 mg capsule 100 mg PO TID Qty: 90 0RF Follow-up/Referrals: Jeewl Aleman MD [Primary Care Provider] - Time of Disposition: 07:12
[2024-10-05 06:33] LABS: Basophils Percent Auto 0.2 % (0.2-1.2); Eosinophils Percent Auto 0.1 % (0-4.4); Hematocrit 43.4 % (42.0-52.0); Hemoglobin 13.7 g/dL (14.0-18.0); Immature Granulocyte Absolute 0.07 K/mm3 (0.00-0.031); Immature Granulocyte Percent A 0.6 % (0-0.5); Lymphocytes Percent Auto 2.7 % (18.3-44.2); Mean Corpuscular HGB Conc 31.6 g/dl (32-36); Mean Corpuscular Hemoglobin 31.1 pg (26-34); Mean Corpuscular Volume 98.6 fl (80-100); Mean Platelet Volume 10.8 fl (7.4-10.4); Monocytes Absolute Auto 0.3 K/mm3 (0.1-0.6); Monocytes Percent Auto 2.5 % (2.6-8.5); Neutrophils Absolute Auto 10.3 K/mm3 (1.3-6.7); Neutrophils Percent Auto 93.9 % (45.5-73.1); Platelet Count Result 116 k/mm3 (150-375); Red Cell Distribution Width 14.1 % (11.5-14.5); White Blood Count 10.9 K/mm3 (4.5-10.0)
[2024-10-05 06:34] LABS: Alanine Aminotransferase 11 U/L (6-50); Albumin Level 3.8 g/dL (3.5-5.1); Alkaline Phosphatase 91 U/L (38-126); Anion Gap 7 mmol/L (4-12); Aspartate Amino Transferase 18 U/L (17-59); Blood Urea Nitrogen 18 mg/dL (9-20); Calcium 8.8 mg/dL (8.4-10.2); Carbon Dioxide 31 mmol/L (22-30); Chloride 101 mmol/L (98-107); Estimated CRCL calculation 70 ml/min; Estimated Glomerular Filt Rate > 60; Glucose 118 mg/dL (65-110); Lactic Acid Reflex 1.2 mmol/L (0.7-2.0); Lipase 26 U/L (23-300); Magnesium 1.6 mg/dL (1.6-2.3); Potassium 4.1 mmol/L (3.4-5.0); Sodium 139 mmol/L (137-145)
[2024-10-05 06:35] LABS: Alveolar/Arterial O2 Gradient 502.3 mmHg; Fractional Inspired Oxygen 100 %; HCO3 ABG 31.7 mEq/l (22.0-26.0); Oxygen Saturation ABG 98.7 % (95.0-100.0); Oxyhemoglobin 96.4 % THb (90.0-100.0); PO2 ABG 149.2 mmHg (80.0-100.0); PO2 FiO2 Ratio Arterial Blood 1.49 %; Total Hemoglobin 13.8 g/dL (12.0-18.0)
[2024-10-05] MEDS: IPRATROPIUM 0.5 MG/ALBUTEROL SULFATE 2.5 MG AMPUL.NEB 3 ML INHALATION (06:35)
--- NOTE | 2024-10-05 06:35 | PC.NURSE ---
pt arrived to ed with 18F urethral catheter in place. per verbal order from edp dr. fam pt to have new urinary catheter placed. this rn placed another 18 F urinary catheter. this rn had urine return after placement.
[2024-10-05 06:36] LABS: Device NON-REBREATHER MASK; Modified Allen's Test Pass; PCO2 ABG 61.5 mmHg (35.0-45.0); Site Drawn RIGHT RADIAL
[2024-10-05 06:45] LABS: INR 1.2; NT Pro B Type Natriuretic Pept 653 pg/mL (19.9-100); Prothrombin Time 15.6 Seconds (11.1-14.7); Troponin I < 0.012 ng/mL (0.000-0.034)
[2024-10-05 06:46] LABS: Partial Thromboplastin Time 30.1 Seconds (22.3-36.8)
[2024-10-05 07:00] LABS: Influenza A QL RT-PCR Negative (Negative); Influenza B QL RT-PCR Negative (Negative); RSV RNA, RT-PCR Negative (Negative); SARS-CoV-2 RNA PCR Negative (Negative)
[2024-10-05 07:11] LABS: Add Urine Microscopic? YES; Appearance Urine Cloudy (Clear); Bacteria Urine 3+ /hpf; Bilirubin Urine Negative (Negative); Blood Urine 2+ (Negative); Color Urine Yellow (Yellow); Glucose Urine UA Negative (Negative); Ketones Urine 3+ mg/dL (Negative); Leukocyte Esterase Ur 2+ LEU/UL (Negative); Need Manual Microscopic Reviewed; Nitrate Urine Positive (Negative); Protein Urine 2+ mg/dL (Negative); RBC Urine 21-50 /hpf (0-2); Specific Grav Ur 1.021 (1.001-1.035); Squamous Epithelial Cell Urine None Seen /hpf (Few); WBC Urine >100 /hpf (0-3)
[2024-10-05] MEDS: methylPREDNISolone SOD SUCC 125 MG VIAL IV PUSH (07:26)
[2024-10-05] MEDS: metroNIDAZOLE 500 MG/ISO 100ML 500 MG/100 ML BAG 100 MG IVPB (07:26)
--- NOTE | 2024-10-05 07:33 | P.HP_ITS ---
H&P: HPI History of Present Illness Date/Time: 10/05/24 07:33 Chief Complaint: Shortness of breath Narrative: This is an 78-year-old gentleman with a past medical history significant for aortic valve stenosis, atrial fibrillation, BPH, CHF, COPD, CAD, depression, diabetes, hypothyroidism, and mixed hyperlipidemia who presented to the emergency room via EMS from his correction with complaints of shortness of breath. The patient is rather lethargic and unable to participate in review of symptoms. His son is at the bedside and provides a limited history. He states that the nursing staff at the correction contacted him saying that his father had a fever. He is unsure what transpired between that phone call and patient coming to the hospital. According to the triage note the patient was complaining of shortness of breath. The son says he saw him yesterday and his dad seemed in his normal state of health other than complaining of being tired. In the emergency room labs are significant for white blood cell count 10.9, hemoglobin 13.7, platelet count 116, PT 15.6, INR 1.2, glucose 118, CRP 4.5, troponin 0.034, BNP 653, and procalcitonin 0.1. ABG showed pH 7.3, pCO2 61.5, PO2 149, HC03 31.7 on a non-rebreather at 15 L. chest x-ray in the ER shows no changes from prior exam does show a stable loculated effusion or dense consolidation to the right lung apex, COPD changes, and a right-sided MediPort. Urine and blood cultures are pending. EKG showed a sinus tachycardia with frequent PVC's with a rate of 122. Blood pressure on admission was 174/100, respirations 40, pulse ox 97% on 15 L, and temperature 99.6?. The patient was started on Levaquin and Flagyl, IV steroids, DuoNebs, placed on BiPAP and admitted to the IMU for further monitoring and workup. Reassessed around 1715. Patient's blood gas ph 7.407, pCO2 45.5, pO2 75.8, HCO3 28. He was placed on nasal cannula 5 L. He is alert and orientated to person and place. He is unsure of the month and year. He says he does not know why he initially came to the hospital but he is having worsening shortness of breath, chest discomfort, productive cough of brown sputum, and abdominal pain. He just had a bowel movement of soft, brown stool. Review of Systems Review of Systems: All systems reviewed & are unremarkable except as noted in HPI and below [facility] Past Medical History Medical History (Updated 10/05/24 @ 18:18 by Kitty Meyers APRN) Aortic valve stenosis Arthritis (03/26/19) Atrial fibrillation with controlled ventricular rate Benign prostatic hyperplasia Chronic congestive heart failure Chronic obstructive pulmonary disease Coronary artery disease (2018) Non-STEMI - left heart cath showed mild coronary artery disease with severe LV dysfunction EF 20% with possible underlying nonischemic cardiomyopathy, no PCI. Depression Diabetes mellitus Diabetic polyneuropathy associated with type 2 diabetes mellitus Fibromyalgia Hypothyroidism Lung cancer Mixed hyperlipidemia Non-small cell carcinoma of lung Status post chemo radiation. Obstructive sleep apnea Restless legs syndrome Sacral decubitus ulcer Type 2 diabetes mellitus Surgical History Surgical History History of hernia repair Umbilical hernia repair. Bilateral inguinal hernia repairs. Family History Family History Sibling Patient's sister is in good health Hypertension Family history of heart disease in male family member before age 55 Mother Family history of heart disease in male family member before age 55 Patient's mother is Family history of congestive heart failure, Onset Age: 70 Father Patient's father is Acute myocardial infarction, Onset Age: 62 Grandparent Depression Family history of arthritis Family history of malignant neoplasm of breast Family history of heart disease in male family member before age 55 Other Cerebrovascular accident Family history of cardiovascular disease Social History Social History Social History: Code status: Modified code. No meds, no CPR. Okay with intubation. Son Harshal Armstrong is POA and primary contact. [phone] Smoking packs per day: 3 Smoking cigarettes per day: 60.0 Years smoked: 30 Smoking pack-years: 90.00 Smoking status: Former smoker Tobacco type: cigarettes Second hand tobacco smoke exposure: Yes Alcohol intake: never Substance use: never Substance use type: does not use Do You Feel Safe in your Home?: Yes Lack of Transportation: No Lack of Food: Never True Current Housing: I Have Housing Concerned About Future Housing: No Difficulty Paying Gas/Electric Bills: No Difficulty Paying for Meds: No Currently Unemployed: No Education: Bachelor's Degree Difficulty w/ Childcare or Family Care: No Living arrangements: correction Spiritual care concerns: No Meds Home Medications and Allergies Home Medications Medication Instructions Recorded Confirmed Type ropinirole 1 mg tablet 1 mg PO HS 12/18/19 10/05/24 History bupropion HCl 300 mg 24 hr tablet, 150 mg PO DAILY 03/09/21 10/05/24 History extended release tamsulosin 0.4 mg capsule 0.4 mg PO HS 02/26/22 10/05/24 History gabapentin 100 mg capsule 100 mg PO TID #90 caps 06/12/22 10/05/24 Rx albuterol sulfate 90 mcg/actuation 1 puff inhalation Q4H PRN 07/27/22 10/05/24 History aerosol inhaler Shortness Of Breath ondansetron 8 mg disintegrating 8 mg PO Q8H PRN Nausea 08/10/22 10/05/24 History tablet Pro-Stat Sugar Free 30 ml PO DAILY 03/23/23 10/05/24 History acetaminophen 325 mg tablet 650 mg PO Q6H PRN Pain, Mild 03/23/23 10/05/24 History ascorbic acid (vitamin C) 500 mg 500 mg PO BID 03/23/23 10/05/24 History tablet bisacodyl 5 mg tablet,delayed 10 mg PO BID 03/23/23 10/05/24 History release (Dulcolax (bisacodyl)) lactulose 10 gram/15 mL oral 20 g PO TID 03/23/23 10/05/24 History solution methadone 5 mg tablet 5 mg PO BID 03/23/23 10/05/24 History multivit with minerals-iron 18 1 tablet PO DAILY 03/23/23 10/05/24 History mg-folic ac 400 mcg-vit K 25 mcg tablet (Adults Multivitamin) bisacodyl 10 mg rectal suppository 10 mg RECTAL DAILY PRN 04/01/23 10/05/24 Rx Constipation #12 ea levalbuterol HCl 1.25 mg/3 mL 1.25 mg inhalation Q6H PRN SOB 07/23/23 10/05/24 History solution for nebulization levothyroxine 25 mcg tablet 25 mcg PO DAILY 07/23/23 10/05/24 History polyethylene glycol 3350 17 gram 17 g PO DAILY PRN Constipation 07/23/23 10/05/24 History oral powder packet (Miralax) sucralfate 1 gram tablet (Carafate) 1 g PO TID 07/23/23 10/05/24 History trimethobenzamide 100 mg/mL 100 mg IM ONCE PRN migraines 07/23/23 10/05/24 History intramuscular solution (Tigan) pantoprazole 40 mg tablet,delayed 40 mg PO QAM #30 tabs 08/12/23 10/05/24 Rx release fluoxetine 20 mg capsule 20 mg PO DAILY 06/28/24 10/05/24 History olanzapine 5 mg tablet 5 mg PO BID 06/28/24 10/05/24 History Symbicort 2 puff inhalation BID #1 applicator 07/04/24 10/05/24 Rx ipratropium bromide 0.02 % 0.5 mg (2.5 mL) inhalation TID #75 07/04/24 10/05/24 Rx solution for inhalation mL potassium chloride 20 mEq 20 meq PO BID 07/04/24 10/05/24 History tablet,extended release clopidogrel 75 mg tablet (Plavix) 75 mg PO DAILY 08/25/24 10/05/24 History diphenhydramine HCl 25 mg tablet 25 mg PO TID PRN allergies 08/25/24 10/05/24 History (Benadryl Allergy) mirtazapine 15 mg tablet (Remeron) 15 mg PO HS 08/25/24 10/05/24 History polyethylene glycol 3350 17 17 g PO DAILY 08/25/24 10/05/24 History gram/dose oral powder (Miralax) trospium 20 mg tablet 20 mg PO BID 08/25/24 10/05/24 History Allergies Allergy/AdvReac Type Severity Reaction Status Date / Time Penicillins Allergy Unknown SHORTNESS Verified 10/05/24 08:35 OF BREATH Vital Signs Vital Signs - 24 hr 10/05/24 05:57 10/05/24 06:02 10/05/24 06:02 Pulse Rate 124 H 125 H Respiratory Rate 32 H Blood Pressure 174/100 H Pulse Oximetry 97 96 Oxygen Delivery Non-Rebreather Mask Non-Rebreather Mask Oxygen Flow Rate 15 15 10/05/24 06:35 10/05/24 06:30 10/05/24 06:48 Pulse Rate 120 H 118 H 118 H Respiratory Rate 40 H 28 H 31 H Blood Pressure Pulse Oximetry 95 Oxygen Delivery BiPAP Oxygen Flow Rate 10/05/24 06:37 Pulse Rate 125 H Respiratory Rate 38 H Blood Pressure 157/78 H Pulse Oximetry 95 Oxygen Delivery Oxygen Flow Rate Exam Narrative: General: lethargic, elderly, frail, loss of muscle mass, on bipap Respiratory: breathing is labored with even chest rise/fall, lungs are clear without wheezing, rhonchi, and crackles Cardiovascular: tachycardia and rhythm regular, normal s1s2, grade II murmur Abdomen: Soft, round, slightly distended, non-tender, active bowel sounds Extremities: No cyanosis, trace dependent edema, clubbing. Pulses 2/2 Neuro: Obtunded, briefly opens eyes to tactile stimuli. Skin: Warm, dry, intact. Sacral wound. H&P: Results Labs Labs: Short CBC 10/05/24 Range/Units 06:12 WBC 10.9 H (4.5-10.0) K/mm3 Hgb 13.7 L D (14.0-18.0) g/dL Hct 43.4 (42.0-52.0) % Plt Count 116 L (150-375) k/mm3 [facility] 10/05/24 06:12 Sodium 139 Potassium 4.1 Chloride 101 Carbon Dioxide 31 H BUN 18 Creatinine 0.80 Glucose 118 H Calcium 8.8 Cardiac Enzymes 10/05/24 Range/Units 06:12 Troponin I < 0.012 (0.000-0.034) ng/mL Liver Function 10/05/24 Range/Units 06:12 Total Bilirubin 1.0 (0.2-1.3) mg/dL AST 18 (17-59) U/L ALT 11 (6-50) U/L Alkaline Phosphatase 91 (38-126) U/L Albumin 3.8 (3.5-5.1) g/dL Urine 10/05/24 Range/Units 06:35 Urine Color Yellow (Yellow) Urine Appearance Cloudy H (Clear) Urine pH 5.0 (5.0-9.0) Ur Specific Mobile 1.021 (1.001-1.035) Urine Protein 2+ H (Negative) mg/dL Urine Glucose (UA) Negative (Negative) mg/dL Assessment and Plan Assessment and plan (1) Acute hypoxemic respiratory failure: Code(s): J96.01 - Acute respiratory failure with hypoxia Status: Acute Assessment and Plan: Patient presented to the ED via EMS wearing non-rebreather. ABG showed ( ph 7.330, pCO2 61.5, pO2 149.2, HCO3 31.7) hypercarbic respiratory failure and he was placed on BiPAP 18/6, rate 18, 50% Fio2. Patient has a history of ANIA and is non-compliant with CPAP as well as a history of COPD. He also has a history of aspiration pneumonia. He arrived to the IMU on Bipap at previously mentioned settings. Repeat ABG showed ph 7.32, pCO2 54.3, Hco3 27.7. The patient was rather lethargic, only briefly opening his eyes to tactile stimuli. Case discussed with ICU physician and changed to AVAPS mode with Vte 540, fio2 40%, expiratory pressure 8, I:E 1:3 * Repeat gas showed ph 7.407, pCO2 45.5, pO2 75.8, HCO3 28.8. Patient is alert and orientated x 3 * Can transition back to his baseline oxygen of 2-3 L NC. Continue Bipap at night and during naps. * Chest x-ray shows a stable right apical consolidation (area of previous cancer) with no changes from prior exam. Findings have been present since 07/2023 * WBC 10.9, lactic normal at 1.2, procal 0.1, CRP 4.5 * Tachycardic in the 120's. Now 101 bpm. Added d-dimer. Will get CTA if positive. Does not appear to be on anticoagulation. * Quad viral screen negative, MRSA positive * Blood cultures pending * started on broad spectrum abx with meropenem, vancomycin, and doxycycline. Will de-escalate as his respiratory status improves. Less concerns for pneumonia and more likely COPD exacerbation. (2) COPD (chronic obstructive pulmonary disease): Code(s): J44.9 - Chronic obstructive pulmonary disease, unspecified Status: Acute Assessment and Plan: History of COPD on 2-3 L NC at baseline. He has a history of ANIA, noncompliant with Cpap. * initially on BiPAP 18/6, rate 18, fio2 50% pulling tidal volumes of 520-540's. Switched to AVAPs mode with expiratory pressure of 8, fio2 40%, VTE 550 ml, I:E 1:3. * loaded with Solu-Medrol 125 mg IVP once and started on 60 mg IVP every 8 hours * duo nebs q 6 hours * Mucinex BID * Added CPT with vest TID and PEP therapy * home inhaler on hold while on nebs and IV steroids. (3) AMS (altered mental status): Code(s): R41.82 - Altered mental status, unspecified Status: Acute Assessment and Plan: Likely 2/2 to hypercarbic respiratory failure. Patient arrived A&Ox4 per triage note. * confusion from infection? UTI vs pneumonia vs sacral ulcer infection. * If no improvement in mental status will obtain head CT. (4) Acute UTI: Code(s): N39.0 - Urinary tract infection, site not specified Status: Acute Assessment and Plan: patient has a chronic corral catheter and history of ESBL. U/A is largely concerning for UTI however, it is not much different from his UA on 08/25 for which the urine culture grew out normal nora. * Blood and urine culture pending * For now we will treat with meropenem given ESBL history * Catheter exchanged in the ED (5) CHF (congestive heart failure): Qualifiers: Heart failure chronicity: acute Heart failure type: unspecified Qualified Code(s): I50.9 - Heart failure, unspecified Code(s): I50.9 - Heart failure, unspecified Status: Acute Assessment and Plan: Last ECHO from 03/2023 showed LV systolic function normal with EF 55-60%, grade 1 diastolic dysfunction. Mild AV valve stenosis. * BNP 653 * Does not appear to be on any medications, including diuretics. * He has trace bilateral lower extremity edema and abdomen is slightly distended but likely from adynamic ileus. He sounds coarse with rhonchi. He feels short of breath at rest. * Will give Lasix 40 mg IVP once now (6) Ileus: Code(s): K56.7 - Ileus, unspecified Status: Acute Assessment and Plan: Abdominal distention with pain to palpation. KUB shows stool filled rectosigmoid, likely adynamic ileus with stomach distention. * He passed a moderate brown, formed soft stool this evening 10/05 * Currently no nausea or vomiting * Continue bowel regimen for now, NPO sips with meds. * If he starts vomiting then we will drop an NG tube for decompression. (7) Diabetes mellitus: Qualifiers: Diabetes mellitus type: type 2 Diabetes mellitus superintendent container terminal insulin use: without superintendent container terminal use Diabetes mellitus complication status: without complication Qualified Code(s): E11.9 - Type 2 diabetes mellitus without complications Code(s): E11.9 - Type 2 diabetes mellitus without complications Status: Chronic Assessment and Plan: Hemoglobin A1C 4.5% * q 6h accu checks with moderate dose SSI given addition of steroids * hypoglycemia protocol * will transition to a regular diet eventually with ensure. He needs level 5 with mildly thickened liquids per speech therapy note. (8) Sacral decubitus ulcer: Code(s): L89.159 - Pressure ulcer of sacral region, unspecified stage Status: Acute Assessment and Plan: Pressure vs sheer injury to sacrum. Area with blanchable erythema and small areas of open tissue with yellow slough. No foul odor or drainage present. * Q2 turns * Off load bony prominence * topical barrier cream applied * wound consult notes reviewed from previous admission recommending application of clear antifungal barrier cream to bilateral buttocks every shift. 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 Quality VTE Prophylaxis VTE prophylaxis: mechanical ordered and pharmacologic ordered Hospitalist MIPS Advance Care Plan I have confirmed that the patient's Advanced Care Plan is present, code status is documented, or surrogate decision maker is listed in patient medical record.: Yes Medication Reconciliation I have utilized all available resources to obtain, update and review the patients current medications (includes all prescriptions, OTC, herbals, cannabis, and nutritional supplements).: Yes
[2024-10-05 07:54] LABS: Procalcitonin 0.1 ng/mL
[2024-10-05] MEDS: levoFLOXacin 750 MG/D5W 150 ML 750 MG/150 ML BAG 100 MG IVPB (08:22)
--- NOTE | 2024-10-05 08:25 | ADMGEN ---
This patient, Farhan Armstrong, was admitted to IMU Room 204-01 @ 0815. Patient/family oriented to hospital policies and general routines including ID bracelet, bed and alarms, visiting hours, pain management, procedures, bathroom and other care routines, personal items, smoking policy, room service/diet, and visiting hours.- Pt -on BIPAP Son at bedside Information on how to activate the Rapid Response Team has been discussed. Patient/Family are encouraged to report perceived risks to care and to ask questions if they do not understand what they are told or what they should do.
[2024-10-05 08:27] LABS: CRP 4.5 mg/dL (<1.0)
[2024-10-05] MEDS: MEROPENEM 1 GM/NS 100 ML 1 GM/100 ML BAG IVPB ×2 (09:36→18:07)
[2024-10-05 09:39] LABS: Alveolar/Arterial O2 Gradient 202.8 mmHg; Base Excess ABG 0.8 mEq/l (+/-2.0); Device BIPAP; Fractional Inspired Oxygen 50 %; HCO3 ABG 27.7 mEq/l (22.0-26.0); Modified Allen's Test Pass; Oxygen Saturation ABG 96.4 % (95.0-100.0); Oxyhemoglobin 95.1 % THb (90.0-100.0); PCO2 ABG 54.3 mmHg (35.0-45.0); PO2 ABG 92.6 mmHg (80.0-100.0); PO2 FiO2 Ratio Arterial Blood 1.85 %; Site Drawn LEFT RADIAL; Total Hemoglobin 13.4 g/dL (12.0-18.0); pH ABG 7.326 (7.350-7.450)
[2024-10-05 09:40] LABS: Troponin I 0.023 ng/mL (0.000-0.034)
[2024-10-05 09:40] LABS: Expiratory Pressure 8 cmH2O; Inspiratory Pressure 16 cmH2O
[2024-10-05] MEDS: VANCOMYCIN 1,250 MG/NS 250 ML 1,250 MG/250 ML BAG 166.67 MG IVPB (09:40)
[2024-10-05] MEDS: VANCOMYCIN 1,000 MG/NS 250 ML 1,000 MG/250 ML BAG 250 MG IVPB (11:15)
[2024-10-05 11:22] LABS: Alveolar/Arterial O2 Gradient 190.1 mmHg; Fractional Inspired Oxygen 50 %; HCO3 ABG 29.2 mEq/l (22.0-26.0); Oxygen Content ABG 17.7 %vol (16.0-22.0); Oxygen Saturation ABG 97.1 % (95.0-100.0); Oxyhemoglobin 95.6 % THb (90.0-100.0); PCO2 ABG 57.5 mmHg (35.0-45.0); PO2 ABG 101.7 mmHg (80.0-100.0); PO2 FiO2 Ratio Arterial Blood 2.03 %; Total Hemoglobin 13.1 g/dL (12.0-18.0); pH ABG 7.324 (7.350-7.450)
[2024-10-05 11:24] LABS: Device BIPAP; Expiratory Pressure 8 cmH2O; Site Drawn RIGHT BRACHIAL
[2024-10-05 12:20] LABS: MRSA (PCR) DETECTED (NOT DETECTE)
[2024-10-05] MEDS: DOXYCYCLINE 100 MG/NS 100 ML 100 MG/100 ML BAG IVPB (12:42)
[2024-10-05] MEDS: IPRATROPIUM 0.5 MG/ALBUTEROL SULFATE 2.5 MG AMPUL.NEB 3 ML NEBULIZE (12:50)
[2024-10-05] MEDS: methylPREDNISolone SOD SUCC 125 MG VIAL 60 MG IV PUSH ×2 (13:36→23:05)
[2024-10-05 13:49] LABS: Troponin I 0.034 ng/mL (0.000-0.034)
[2024-10-05 14:16] LABS: Alveolar/Arterial O2 Gradient 157.1 mmHg; Base Excess ABG 2.7 mEq/l (+/-2.0); Fractional Inspired Oxygen 40 %; Oxygen Content ABG 17.9 %vol (16.0-22.0); Oxygen Saturation ABG 95.2 % (95.0-100.0); PCO2 ABG 45.5 mmHg (35.0-45.0); PO2 ABG 75.8 mmHg (80.0-100.0); Total Hemoglobin 13.5 g/dL (12.0-18.0); pH ABG 7.407 (7.350-7.450)
[2024-10-05 14:17] LABS: Device BIPAP; Site Drawn RIGHT BRACHIAL
[2024-10-05 14:19] LABS: Expiratory Pressure 8 cmH2O
--- NOTE | 2024-10-05 14:53 | ECG_ITS ---
Test Date: 2024-10-05 15:37:13 Measurements Intervals [place] Rate: 104 P: 72 IA: 186 QRS: 44 QRSD: 105 T: 35 QT: 417 QTc: 549 Interpretive Statements SINUS TACHYCARDIA WITH FREQUENT VENTRICULAR PREMATURE COMPLEXES BORDERLINE ST-T WAVE ABNORMALITY- INF/LAT LEADS BASELINE ARTIFACT- I, II, III, AVR, AVL, AVF, V1-V6 ABNORMAL ECG Compared to ECG 10/05/2024 06:07:06 NO SIGNIFICANT CHANGE Electronically Signed On 10-05-2024 15:44:09 HAT FINISHER by Trell Walters D.O.
[2024-10-05 16:53] LABS: D Dimer 0.93 ug/mL (<0.48)
[2024-10-05 17:05] LABS: Cholesterol 129 mg/dL (0-200); HDL Direct 59 mg/dL; Triglycerides 62 mg/dL (<150)
[2024-10-05 17:16] LABS: LDL Cholesterol Direct 55 mg/dL
[2024-10-05 17:25] LABS: Hemoglobin A1C 4.5 % (<5.7)
[2024-10-05 18:01] LABS: Glucose Point of Care 236 mg/dl (65-105)
[2024-10-05] MEDS: methADONE HCL (*CRX) 5 MG TABLET PO (18:08)
[2024-10-05] MEDS: OLANZapine 5 MG TABLET PO (18:09)
[2024-10-05] MEDS: FUROSEMIDE INJ 40 MG/4 ML VIAL IV PUSH (18:13)
[2024-10-05] MEDS: LACTULOSE 20 GM/30 ML UDC PO (18:16)
[2024-10-05] MEDS: GABAPENTIN 100 MG CAPSULE PO (18:16)
[2024-10-05] MEDS: INSULIN ASPART (*BKC) 100 UNITS/ML SUB-Q (18:46)
[2024-10-05] MEDS: IPRATROPIUM BR 0.02% INH SOLN 0.5 MG/2.5 ML VIAL INHALATION (20:53)
[2024-10-05] MEDS: LEVALBUTEROL NEB 1.25 MG/3 ML INHALATION (20:53)
[2024-10-05] MEDS: MUPIROCIN 2% OINT 22 GM TUBE 1 APPLIC EACH NARE (22:09)
[2024-10-05 23:57] LABS: Glucose Point of Care 199 mg/dl (65-105)
[2024-10-06] VITALS (26 sets, daily range): BP systolic 106–128; BP diastolic 57–68; PULSE 89–958; RESP 18–32; TEMP 36.6–37.6; O2SAT 92–97; BMI 27.5
[2024-10-06] MEDS: DOXYCYCLINE 100 MG/NS 100 ML 100 MG/100 ML BAG IVPB ×2 (00:31→16:45)
[2024-10-06] MEDS: MEROPENEM 1 GM/NS 100 ML 1 GM/100 ML BAG IVPB ×3 (01:08→19:13)
[2024-10-06] MEDS: LEVALBUTEROL NEB 1.25 MG/3 ML INHALATION ×4 (03:06→20:41)
[2024-10-06] MEDS: IPRATROPIUM BR 0.02% INH SOLN 0.5 MG/2.5 ML VIAL INHALATION ×4 (03:06→20:41)
[2024-10-06] MEDS: VANCOMYCIN 1,500 MG/NS 500 ML 1,500 MG/500 ML BAG 250 MG IVPB (04:26)
[2024-10-06 06:00] LABS: Estimated CRCL calculation 54 ml/min; Estimated Glomerular Filt Rate > 60
[2024-10-06] MEDS: LEVOTHYROXINE SODIUM 25 MCG TABLET PO (06:03)
[2024-10-06] MEDS: methylPREDNISolone SOD SUCC 125 MG VIAL 60 MG IV PUSH ×3 (06:03→20:34)
[2024-10-06] MEDS: SUCRALFATE 1 GM TABLET PO ×3 (06:03→16:45)
[2024-10-06 06:16] LABS: Glucose Point of Care 231 mg/dl (65-105)
[2024-10-06] MEDS: INSULIN ASPART (*BKC) 100 UNITS/ML SUB-Q (06:25)
[2024-10-06 08:07] LABS: Hematocrit 36.6 % (42.0-52.0); Hemoglobin 11.5 g/dL (14.0-18.0); Mean Corpuscular HGB Conc 31.4 g/dl (32-36); Mean Corpuscular Hemoglobin 30.2 pg (26-34); Mean Corpuscular Volume 96.1 fl (80-100); Mean Platelet Volume 10.9 fl (7.4-10.4); Platelet Count Result 135 k/mm3 (150-375); Red Blood Count 3.81 M/mm3 (4.6-6.20); White Blood Count 11.4 K/mm3 (4.5-10.0)
[2024-10-06 08:18] LABS: Anion Gap 4 mmol/L (4-12); Blood Urea Nitrogen 38 mg/dL (9-20); Calcium 7.9 mg/dL (8.4-10.2); Carbon Dioxide 35 mmol/L (22-30); Chloride 100 mmol/L (98-107); Estimated CRCL calculation 59 ml/min; Estimated Glomerular Filt Rate > 60; Glucose 189 mg/dL (65-110); Magnesium 1.8 mg/dL (1.6-2.3); Potassium 3.4 mmol/L (3.4-5.0); Sodium 139 mmol/L (137-145)
[2024-10-06] MEDS: CLOPIDOGREL BISULFATE 75 MG TABLET PO (10:47)
[2024-10-06] MEDS: methADONE HCL (*CRX) 5 MG TABLET PO ×2 (10:47→19:14)
[2024-10-06] MEDS: buPROPion HCL XL (24 HR) 150 MG TABCR PO (10:49)
[2024-10-06] MEDS: ASCORBIC ACID 500 MG TABLET PO ×2 (10:49→16:45)
[2024-10-06] MEDS: GABAPENTIN 100 MG CAPSULE PO ×3 (10:49→16:45)
[2024-10-06] MEDS: OLANZapine 5 MG TABLET PO ×2 (10:50→16:45)
[2024-10-06] MEDS: FLUoxetine HCL 20 MG CAPSULE PO (10:50)
[2024-10-06] MEDS: MULTIVITAMINS /C LUTEIN (CENTRUM SILVER) TABLET *BKC 1 TAB PO (10:51)
[2024-10-06] MEDS: POTASSIUM CHLORIDE 20 MEQ ER TABLET PO ×2 (10:51→16:45)
[2024-10-06] MEDS: guaiFENesin 12 HR 600 MG TABCR PO ×2 (10:51→20:34)
[2024-10-06] MEDS: PANTOPRAZOLE 40 MG TABLET PO (10:52)
[2024-10-06] MEDS: LACTULOSE 20 GM/30 ML UDC PO ×3 (10:52→18:31)
[2024-10-06] MEDS: MUPIROCIN 2% OINT 22 GM TUBE 1 APPLIC EACH NARE ×2 (10:52→22:04)
[2024-10-06] MEDS: ENOXAPARIN 40 MG/0.4 ML SYRINGE SUB-Q (10:56)
[2024-10-06] MEDS: polyethylene glycoL 3350 17 GM POWD.PACK PO (11:01)
[2024-10-06 11:31] LABS: Glucose Point of Care 180 mg/dl (65-105)
[2024-10-06 17:56] LABS: Glucose Point of Care 218 mg/dl (65-105)
--- NOTE | 2024-10-06 18:06 | P.PNIM_ITS ---
Progress Note: A&P Assessment and Plan (1) Acute hypoxemic respiratory failure: Code(s): J96.01 - Acute respiratory failure with hypoxia Status: Acute Assessment and Plan: Patient presented to the ED via EMS wearing non-rebreather. ABG showed ( ph 7.330, pCO2 61.5, pO2 149.2, HCO3 31.7) hypercarbic respiratory failure and he was placed on BiPAP 18/6, rate 18, 50% Fio2. Patient has a history of ANIA and is non-compliant with CPAP as well as a history of COPD. He also has a history of aspiration pneumonia. He arrived to the IMU on Bipap at previously mentioned settings. Repeat ABG showed ph 7.32, pCO2 54.3, Hco3 27.7. The patient was rather lethargic, only briefly opening his eyes to tactile stimuli. Case discussed with ICU physician and changed to AVAPS mode with Vte 540, fio2 40%, expiratory pressure 8, I:E 1:3 * Repeat gas showed ph 7.407, pCO2 45.5, pO2 75.8, HCO3 28.8. Patient is alert and orientated x 3 * Can transition back to his baseline oxygen of 2-3 L NC. Continue Bipap at night and during naps. * Chest x-ray shows a stable right apical consolidation (area of previous cancer) with no changes from prior exam. Findings have been present since 07/2023 * WBC 10.9, lactic normal at 1.2, procal 0.1, CRP 4.5 * Tachycardic in the 120's. Now 101 bpm. Added d-dimer. Will get CTA if positive. Does not appear to be on anticoagulation. * Quad viral screen negative, MRSA positive * Blood cultures pending * started on broad spectrum abx with meropenem, vancomycin, and doxycycline. Will de-escalate as his respiratory status improves. Less concerns for pneumonia and more likely COPD exacerbation. (2) COPD (chronic obstructive pulmonary disease): Code(s): J44.9 - Chronic obstructive pulmonary disease, unspecified Status: Acute Assessment and Plan: History of COPD on 2-3 L NC at baseline. He has a history of ANIA, noncompliant with Cpap. * initially on BiPAP 18/6, rate 18, fio2 50% pulling tidal volumes of 520-540's. Switched to AVAPs mode with expiratory pressure of 8, fio2 40%, VTE 550 ml, I:E 1:3. * loaded with Solu-Medrol 125 mg IVP once and started on 60 mg IVP every 8 hours * duo nebs q 6 hours * Mucinex BID * Added CPT with vest TID and PEP therapy * home inhaler on hold while on nebs and IV steroids. (3) AMS (altered mental status): Code(s): R41.82 - Altered mental status, unspecified Status: Acute Assessment and Plan: Likely 2/2 to hypercarbic respiratory failure. Patient arrived A&Ox4 per triage note. * confusion from infection? UTI vs pneumonia vs sacral ulcer infection. * If no improvement in mental status will obtain head CT. (4) Acute UTI: Code(s): N39.0 - Urinary tract infection, site not specified Status: Acute Assessment and Plan: patient has a chronic corral catheter and history of ESBL. U/A is largely concerning for UTI however, it is not much different from his UA on 08/25 for which the urine culture grew out normal nora. * Blood and urine culture pending * For now we will treat with meropenem given ESBL history * Catheter exchanged in the ED (5) CHF (congestive heart failure): Qualifiers: Heart failure chronicity: acute Heart failure type: unspecified Qualified Code(s): I50.9 - Heart failure, unspecified Code(s): I50.9 - Heart failure, unspecified Status: Acute Assessment and Plan: Last ECHO from 03/2023 showed LV systolic function normal with EF 55-60%, grade 1 diastolic dysfunction. Mild AV valve stenosis. * BNP 653 * Does not appear to be on any medications, including diuretics. * He has trace bilateral lower extremity edema and abdomen is slightly distended but likely from adynamic ileus. He sounds coarse with rhonchi. He feels short of breath at rest. * Will give Lasix 40 mg IVP once now (6) Ileus: Code(s): K56.7 - Ileus, unspecified Status: Acute Assessment and Plan: Abdominal distention with pain to palpation. KUB shows stool filled rectosigmoid, likely adynamic ileus with stomach distention. * He passed a moderate brown, formed soft stool this evening 10/05 * Currently no nausea or vomiting * Continue bowel regimen for now, NPO sips with meds. * If he starts vomiting then we will drop an NG tube for decompression. (7) Diabetes mellitus: Qualifiers: Diabetes mellitus complication status: without complication Diabetes mellitus prison insulin use: without prison use Diabetes mellitus type: type 2 Qualified Code(s): E11.9 - Type 2 diabetes mellitus without complications Code(s): E11.9 - Type 2 diabetes mellitus without complications Status: Chronic Assessment and Plan: Hemoglobin A1C 4.5% * q 6h accu checks with moderate dose SSI given addition of steroids * hypoglycemia protocol * will transition to a regular diet eventually with ensure. He needs level 5 with mildly thickened liquids per speech therapy note. (8) Sacral decubitus ulcer: Code(s): L89.159 - Pressure ulcer of sacral region, unspecified stage Status: Acute Assessment and Plan: Pressure vs sheer injury to sacrum. Area with blanchable erythema and small areas of open tissue with yellow slough. No foul odor or drainage present. * Q2 turns * Off load bony prominence * topical barrier cream applied * wound consult notes reviewed from previous admission recommending application of clear antifungal barrier cream to bilateral buttocks every shift. 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 Plan 78 y/o male a resident of [place] was found to have shortness of breath and was desaturating on 2-3 NC and sent to ER where he was found to have hypercarbic respiratory failure patient was placed on BiPAP and his symptoms improved and started on AVAPS currently he is on 2 NC, patient has improved and now on 2L, patient does have history COPD, CTA of chest is negative for PE however it shows b/l lobe pneumonia patient is being treated meropenem and vancomycin, patient is clinically stable will continue to monitor and have PT/OT evaluate the patient. Subjective Date/time seen: 10/06/24 18:06 Interval history: 78 y/o male a resident of [place] was found to have shortness of breath and was desaturating on 2-3 NC and sent to ER where he was found to have hypercarbic respiratory failure patient was placed on BiPAP and his symptoms improved and started on AVAPS currently he is on 2 NC, patient has improved and now on 2L, patient does have history COPD, CTA of chest is negative for PE however it shows b/l lobe pneumonia patient is being treated meropenem and vancomycin, patient is clinically stable will continue to monitor and have PT/OT evaluate the patient. Review of Systems Review of Systems: All systems reviewed & are unremarkable except as noted in HPI and below Exam Narrative: Patient is comfortable, NAD HEENT: eyes are clear and none icteric LUNGS:CTA HEART: RR S1S2 ABD: BS+, Soft and nontender Lower extremities: no edema SKIN: nonjaundiced Neuro: grossly intact. Objective Data Vital Signs Vital Signs: Vital Signs - 24 hr 10/05/24 19:52 10/05/24 20:46 10/05/24 20:50 Temperature 37.9 C H Pulse Rate 114 H 108 H Respiratory Rate 28 H 26 H 26 H Blood Pressure 146/83 H Pulse Oximetry 93 93 Oxygen Delivery BiPAP BiPAP Oxygen Flow Rate Fraction of Inspired Oxygen 40 10/05/24 20:53 10/05/24 21:08 10/05/24 20:00 Temperature Pulse Rate 108 H 109 H 112 H Respiratory Rate 25 H 26 H 30 H Blood Pressure Pulse Oximetry 93 Oxygen Delivery BiPAP Oxygen Flow Rate Fraction of Inspired Oxygen 40 10/05/24 20:00 10/05/24 23:36 10/05/24 22:00 Temperature 37.0 C Pulse Rate 114 H 105 H 107 H Respiratory Rate 28 H Blood Pressure 141/79 H Pulse Oximetry 94 Oxygen Delivery Oxygen Flow Rate Fraction of Inspired Oxygen 10/05/24 23:59 10/05/24 23:59 10/06/24 02:00 Temperature Pulse Rate 105 H 105 H 958 H Respiratory Rate 28 H Blood Pressure Pulse Oximetry 94 Oxygen Delivery BiPAP Oxygen Flow Rate Fraction of Inspired Oxygen 40 10/06/24 03:08 10/06/24 00:15 10/06/24 03:13 Temperature Pulse Rate 96 102 H 95 Respiratory Rate 26 H 26 H 28 H Blood Pressure Pulse Oximetry Oxygen Delivery BiPAP BiPAP Oxygen Flow Rate Fraction of Inspired Oxygen 10/06/24 03:18 10/06/24 04:00 10/06/24 04:00 Temperature Pulse Rate 96 96 106 H Respiratory Rate 26 H 26 H Blood Pressure Pulse Oximetry 94 Oxygen Delivery BiPAP Oxygen Flow Rate Fraction of Inspired Oxygen 40 10/06/24 04:00 10/06/24 06:00 10/06/24 06:00 Temperature 37.6 C Pulse Rate 105 H 95 95 Respiratory Rate 32 H 30 H Blood Pressure 128/61 Pulse Oximetry 96 96 Oxygen Delivery Nasal Cannula Oxygen Flow Rate 3 Fraction of Inspired Oxygen 10/06/24 07:22 10/06/24 08:23 10/06/24 08:23 Temperature 37.2 C Pulse Rate 97 90 Respiratory Rate 18 22 H Blood Pressure 114/62 Pulse Oximetry 97 94 Oxygen Delivery High Flow Nasal Cannula Oxygen Flow Rate 3.5 Fraction of Inspired Oxygen 10/06/24 08:44 10/06/24 08:00 10/06/24 11:03 Temperature 36.9 C Pulse Rate 92 94 Respiratory Rate 22 H 22 H 18 Blood Pressure 112/57 L Pulse Oximetry 92 94 Oxygen Delivery Nasal Cannula Oxygen Flow Rate 3 Fraction of Inspired Oxygen 10/06/24 08:00 10/06/24 10:00 10/06/24 12:00 Temperature Pulse Rate 94 99 94 Respiratory Rate Blood Pressure Pulse Oximetry Oxygen Delivery Oxygen Flow Rate Fraction of Inspired Oxygen 10/06/24 12:00 10/06/24 14:13 10/06/24 14:26 Temperature Pulse Rate 91 92 Respiratory Rate 22 H 22 H 22 H Blood Pressure Pulse Oximetry 95 Oxygen Delivery Nasal Cannula Oxygen Flow Rate 3 Fraction of Inspired Oxygen 10/06/24 15:19 Temperature 37.1 C Pulse Rate 94 Respiratory Rate 20 Blood Pressure 106/62 Pulse Oximetry 94 Oxygen Delivery Oxygen Flow Rate Fraction of Inspired Oxygen Intake/Output Intake/Output: Intake & Output 10/03/24 10/04/24 10/05/24 10/06/24 23:59 23:59 23:59 23:59 Intake Total 800 680 Output Total 1200 1350 Balance -400 -670 Meds/Results Medications: Active Medications Generic Name Dose Route Start Last Admin Trade Name Freq PRN Reason Stop Dose Admin Acetaminophen 650 mg 10/05/24 14:39 Acetaminophen 325 Mg Tablet PO Q6H PRN Pain, Mild Ascorbic Acid 500 mg 10/05/24 17:00 10/06/24 10:49 Ascorbic Acid 500 Mg Tablet PO 500 mg BID JILLIAN Administration Bisacodyl 10 mg 10/05/24 14:39 Bisacodyl 5 Mg Tablet Ec PO BID PRN constipation Bisacodyl 10 mg 10/05/24 18:11 Bisacodyl 10 Mg Suppository RECTAL DAILY PRN Constipation Bupropion HCl 150 mg 10/06/24 09:00 10/06/24 10:49 Bupropion Hcl Xl (24 Hr) 150 Mg Tabcr PO 150 mg DAILY JILLIAN Administration Clopidogrel Bisulfate 75 mg 10/06/24 09:00 10/06/24 10:47 Clopidogrel Bisulfate 75 Mg Tablet PO 75 mg DAILY JILLIAN Administration Dextrose 12.5 gm 10/05/24 14:38 Dextrose 50% 25 Gm/50 Ml Syringe IV PUSH PRN PRN Hypoglycemia Protocol Enoxaparin Sodium 40 mg 10/06/24 09:00 10/06/24 10:56 Enoxaparin 40 Mg/0.4 Ml Syringe SUB-Q 40 mg DAILY JILLIAN Administration Fluoxetine HCl 20 mg 10/06/24 09:00 10/06/24 10:50 Fluoxetine Hcl 20 Mg Capsule PO 20 mg DAILY JILLIAN Administration Gabapentin 100 mg 10/05/24 17:00 10/06/24 10:49 Gabapentin 100 Mg Capsule PO 100 mg TID JILLIAN Administration Glucagon 1 mg 10/05/24 14:38 Glucagon For Inj 1 Mg Vial IM PRN PRN Hypoglycemia Protocol Glucose 15 gm 10/05/24 14:38 Glucose Oral Gel 15 Gm Of Glucse In 37.5 Gm Tube PO PRN PRN Hypoglycemia Protocol Guaifenesin 600 mg 10/05/24 21:00 10/06/24 10:51 Guaifenesin 12 Hr 600 Mg Tabcr PO 600 mg Q12HR JILLIAN Administration Meropenem 1 gm in 100 mls @ 200 mls/hr 10/05/24 09:00 10/06/24 09:15 IVPB 167 mls/hr Q8H JILLIAN Administration Vancomycin HCl 1,500 mg in 500 mls @ 250 mls/hr 10/06/24 04:00 10/06/24 04:26 Vancomycin 1,500 Mg/Ns 500 Ml IVPB 250 mls/hr Q18H JILLIAN Administration Doxycycline Hyclate 100 mg in 100 mls @ 100 mls/hr 10/05/24 12:00 10/06/24 01:30 Vibramycin 100 Mg/Ns 100 Ml IVPB Infused Q12H JILLIAN Infusion Dextrose 1,000 mls @ 100 mls/hr 10/05/24 14:38 Dextrose 5% 1,000 Ml IVPB PRN PRN Hypoglycemia Protocol Insulin Aspart 3 - 6 units 10/05/24 18:00 10/06/24 11:06 Insulin Aspart (*Bkc) 100 Units/Ml SUB-Q Not Given Q6H JILLIAN Protocol Ipratropium [place] 0.5 mg 10/05/24 20:00 10/06/24 14:13 Ipratropium Br 0.02% Inh Soln 0.5 Mg/2.5 Ml Vial INHALATION 0.5 mg Q6HRT JILLIAN Administration Lactulose 20 gm 10/05/24 17:00 10/06/24 10:52 Lactulose 20 Gm/30 Ml Udc PO 20 gm TID JILLIAN Administration Levalbuterol HCl 1.25 mg 10/05/24 20:00 10/06/24 14:13 Levalbuterol Neb 1.25 Mg/3 Ml INHALATION 1.25 mg Q6HRT JILLIAN Administration Levothyroxine Sodium 25 mcg 10/06/24 06:30 10/06/24 06:03 Levothyroxine Sodium 25 Mcg Tablet PO 25 mcg DAILY@0630 JILLIAN Administration Methadone HCl 5 mg 10/05/24 17:00 10/06/24 10:47 Methadone Hcl (*Crx) 5 Mg Tablet PO 5 mg BID JILLIAN Administration Methylprednisolone Sodium Succinate 60 mg 10/05/24 14:00 10/06/24 06:03 Methylprednisolone Sod Succ 125 Mg Vial IV PUSH 60 mg Q8HR JILLIAN Administration Mirtazapine 15 mg 10/05/24 21:00 10/06/24 00:01 Mirtazapine 15 Mg Tablet PO Not Given HS [facility] Multivitamins/Minerals 1 tab 10/06/24 09:00 10/06/24 10:51 Multivitamins /C Lutein (Centrum Silver) Tablet *Bkc PO 1 tab DAILY JILLIAN Administration Mupirocin 1 applic 10/05/24 21:00 10/06/24 10:52 Mupirocin 2% Oint 22 Gm Tube EACH NARE 10/09/24 22:00 1 applic Q12HR JILLIAN Administration Olanzapine 5 mg 10/05/24 17:00 10/06/24 10:50 Olanzapine 5 Mg Tablet PO 5 mg BID JILLIAN Administration Ondansetron HCl 8 mg 10/05/24 14:53 Ondansetron Hcl Odt 4 Mg Tablet PO Q8H PRN Nausea Pantoprazole Sodium 40 mg 10/06/24 09:00 10/06/24 10:52 Pantoprazole 40 Mg Tablet PO 40 mg QAM JILLIAN Administration Polyethylene Glycol 17 gm 10/06/24 09:00 10/06/24 11:01 Polyethylene Glycol 3350 17 Gm Powd.Pack PO 17 gm DAILY JILLIAN Administration Potassium Chloride 20 meq 10/05/24 17:00 10/06/24 10:51 Potassium Chloride 20 Meq Er Tablet PO 20 meq BID JILLIAN Administration Ropinirole HCl 1 mg 10/05/24 21:00 10/06/24 00:01 Ropinirole Hcl 1 Mg Tablet PO Not Given HS JILLIAN Sucralfate 1 gm 10/05/24 16:30 10/06/24 06:03 Sucralfate 1 Gm Tablet PO 1 gm TIDAC JILLIAN Administration Tamsulosin HCl 0.4 mg 10/05/24 21:00 10/06/24 00:02 Tamsulosin Hcl 0.4 Mg Capsule PO Not Given HS [facility] Radiology Results: ITS Impressions Chest X-Ray 10/05/24 06:48 Impression: No acute abnormality. No change from prior exam. Stable loculated effusion or other dense consolidation the right lung apex. Background COPD changes or other chronic interstitial disease. Right-sided Mediport. Abdomen X-Ray 10/05/24 17:24 IMPRESSION: 1. Distended stool-filled rectosigmoid, likely adynamic ileus. 2. Gaseous distention of the stomach. Labs Labs: Laboratory Results - last 24 hr 10/05/24 10/06/24 10/06/24 23:41 04:15 06:14 WBC RBC Hgb Hct MCV MCH MCHC RDW Plt Count MPV Sodium Potassium Chloride Carbon Dioxide Anion Gap BUN Creatinine 1.00 Estim Creat Clear Calc 54 Estimated GFR > 60 Glucose POC Capillary Glucose 199 H 231 H Calcium Magnesium 10/06/24 10/06/24 10/06/24 08:01 10:59 17:54 WBC 11.4 H RBC 3.81 L Hgb 11.5 L Hct 36.6 L MCV 96.1 MCH 30.2 MCHC 31.4 L RDW 14.0 Plt Count 135 L MPV 10.9 H Sodium 139 Potassium 3.4 Chloride 100 Carbon Dioxide 35 H Anion Gap 4 BUN 38 H D Creatinine 0.90 Estim Creat Clear Calc 59 Estimated GFR > 60 Glucose 189 H POC Capillary Glucose 180 H 218 H Calcium 7.9 L Magnesium 1.8 Quality VTE Prophylaxis VTE prophylaxis: mechanical ordered and pharmacologic ordered
[2024-10-06] MEDS: TAMSULOSIN HCL 0.4 MG CAPSULE PO (20:34)
[2024-10-06] MEDS: MIRTAZAPINE 15 MG TABLET PO (20:34)
[2024-10-06] MEDS: rOPINIRole HCL 1 MG TABLET PO (20:34)
[2024-10-06 22:00] LABS: Vancomycin Trough 20.1 ug/mL (10.0-20.0)
[2024-10-06 23:58] LABS: Glucose Point of Care 186 mg/dl (65-105)
[2024-10-07] VITALS (26 sets, daily range): BP systolic 115–142; BP diastolic 66–85; PULSE 76–99; RESP 20–24; TEMP 36.5–36.7; O2SAT 89–97
[2024-10-07] MEDS: DOXYCYCLINE 100 MG/NS 100 ML 100 MG/100 ML BAG IVPB ×2 (00:28→11:56)
[2024-10-07] MEDS: MEROPENEM 1 GM/NS 100 ML 1 GM/100 ML BAG IVPB ×3 (01:15→17:14)
[2024-10-07] MEDS: IPRATROPIUM BR 0.02% INH SOLN 0.5 MG/2.5 ML VIAL INHALATION ×4 (02:30→20:29)
[2024-10-07] MEDS: LEVALBUTEROL NEB 1.25 MG/3 ML INHALATION ×4 (02:30→20:29)
[2024-10-07] MEDS: VANCOMYCIN 1,500 MG/NS 500 ML 1,500 MG/500 ML BAG 250 MG IVPB (04:10)
[2024-10-07 04:25] LABS: Estimated CRCL calculation 59 ml/min; Estimated Glomerular Filt Rate > 60
[2024-10-07 06:39] LABS: Glucose Point of Care 197 mg/dl (65-105)
[2024-10-07] MEDS: LEVOTHYROXINE SODIUM 25 MCG TABLET PO (06:41)
[2024-10-07] MEDS: SUCRALFATE 1 GM TABLET PO ×3 (06:41→17:15)
[2024-10-07] MEDS: methylPREDNISolone SOD SUCC 125 MG VIAL 60 MG IV PUSH ×2 (06:41→17:15)
[2024-10-07 07:44] LABS: Hematocrit 36.6 % (42.0-52.0); Hemoglobin 11.7 g/dL (14.0-18.0); Mean Corpuscular Hemoglobin 30.9 pg (26-34); Mean Corpuscular Volume 96.6 fl (80-100); Mean Platelet Volume 11.5 fl (7.4-10.4); Platelet Count Result 141 k/mm3 (150-375); Red Blood Count 3.79 M/mm3 (4.6-6.20); Red Cell Distribution Width 14.2 % (11.5-14.5); White Blood Count 10.3 K/mm3 (4.5-10.0)
[2024-10-07 07:56] LABS: Alanine Aminotransferase 10 U/L (6-50); Albumin Level 2.9 g/dL (3.5-5.1); Alkaline Phosphatase 55 U/L (38-126); Anion Gap 4 mmol/L (4-12); Aspartate Amino Transferase 23 U/L (17-59); Bilirubin,Total 0.2 mg/dL (0.2-1.3); Blood Urea Nitrogen 41 mg/dL (9-20); Calcium 8.1 mg/dL (8.4-10.2); Carbon Dioxide 34 mmol/L (22-30); Chloride 103 mmol/L (98-107); Estimated CRCL calculation 59 ml/min; Estimated Glomerular Filt Rate > 60; Glucose 194 mg/dL (65-110); Magnesium 1.9 mg/dL (1.6-2.3); Phosphorus 2.2 mg/dL (2.5-4.5); Potassium 3.5 mmol/L (3.4-5.0); Sodium 141 mmol/L (137-145)
[2024-10-07 08:24] LABS: Platelet Estimate Slightly Decreased (Adequate)
[2024-10-07 08:25] LABS: Band Neutrophils Percent 10 % (0-6); Lymphocytes Absolute Manual 0.41 K/mm3 (1.1-4.5); Lymphocytes Percent Manual 4 % (18-44); Monocytes Percent Manual 3 % (3-9); Neutrophils Absolute Manual 9.57 K/mm3 (1.3-6.7); Neutrophils Percent Manual 83 % (46-73); Schistocytes None Seen; Total Cells Counted 100
[2024-10-07 09:01] LABS: Folic Acid 10.3 ng/mL (2.76->20)
[2024-10-07 09:01] LABS: Ammonia 32 umol/L (9-30)
[2024-10-07] MEDS: LACTULOSE 20 GM/30 ML UDC PO ×3 (09:30→17:14)
[2024-10-07] MEDS: POTASSIUM CHLORIDE 20 MEQ ER TABLET PO ×2 (09:31→17:14)
[2024-10-07] MEDS: CLOPIDOGREL BISULFATE 75 MG TABLET PO (09:31)
[2024-10-07] MEDS: buPROPion HCL XL (24 HR) 150 MG TABCR PO (09:31)
[2024-10-07] MEDS: PANTOPRAZOLE 40 MG TABLET PO (09:31)
[2024-10-07] MEDS: methADONE HCL (*CRX) 5 MG TABLET PO ×2 (09:31→17:14)
[2024-10-07] MEDS: GABAPENTIN 100 MG CAPSULE PO ×3 (09:31→17:15)
[2024-10-07] MEDS: ASCORBIC ACID 500 MG TABLET PO ×2 (09:31→17:14)
[2024-10-07] MEDS: FLUoxetine HCL 20 MG CAPSULE PO (09:31)
[2024-10-07] MEDS: OLANZapine 5 MG TABLET PO ×2 (09:31→17:14)
[2024-10-07] MEDS: guaiFENesin 12 HR 600 MG TABCR PO ×2 (09:31→21:18)
[2024-10-07] MEDS: MULTIVITAMINS /C LUTEIN (CENTRUM SILVER) TABLET *BKC 1 TAB PO (09:31)
[2024-10-07] MEDS: ENOXAPARIN 40 MG/0.4 ML SYRINGE SUB-Q (09:31)
[2024-10-07 11:35] LABS: Glucose Point of Care 238 mg/dl (65-105)
[2024-10-07] MEDS: polyethylene glycoL 3350 17 GM POWD.PACK PO (11:42)
[2024-10-07] MEDS: INSULIN ASPART (*BKC) 100 UNITS/ML SUB-Q (12:00)
[2024-10-07] MEDS: MUPIROCIN 2% OINT 22 GM TUBE 1 APPLIC EACH NARE ×2 (12:06→21:19)
--- NOTE | 2024-10-07 12:51 | P.PNIM_ITS ---
Progress Note: A&P Assessment and Plan (1) Acute hypoxemic respiratory failure: Code(s): J96.01 - Acute respiratory failure with hypoxia Status: Acute Assessment and Plan: Patient presented to the ED via EMS wearing non-rebreather. ABG showed 7.33/62/149 on 15L NRBM Hypercarbic respiratory failure and was placed on BiPAP 18/6, rate 18, 50% Fio2. Patient has a history of ANIA and is non-compliant with CPAP as well as a history of COPD. He also has a history of aspiration pneumonia. Repeat ABG showed improvement but patient was lethargic. Case discussed with ICU physician and changed to AVAPS mode with Vte 540, fio2 40%, expiratory pressure 8, I:E 1:3 * Repeat gas showed ph 7.407, pCO2 45.5, pO2 75.8, HCO3 28.8. Patient is alert and orientated x 3 * He was transitioned back to his baseline oxygen of 2-3 L NC. Continue Bipap at night and during naps. * Chest x-ray shows a stable right apical consolidation (area of previous cancer) with no changes from prior exam. Findings have been present since 07/20 023 * WBC 10.9, lactic normal at 1.2, procal 0.1, CRP 4.5 * Tachycardic in the 120's. Now 101 bpm. * D-dimer positive. CTA was negative for PE but does show bilaterla LL PNA. * Quad viral screen negative, MRSA positive * Blood cultures NGTD * started on broad spectrum abx with meropenem, vancomycin, and doxycycline. * Will simplify to doxy and meropenem. (2) COPD (chronic obstructive pulmonary disease): Code(s): J44.9 - Chronic obstructive pulmonary disease, unspecified Status: Acute Assessment and Plan: History of COPD on 2-3 L NC at baseline. He has a history of ANIA, noncompliant with Cpap. * initially on BiPAP 18/6, rate 18, fio2 50% pulling tidal volumes of 520-540's. Switched to AVAPs mode with expiratory pressure of 8, fio2 40%, VTE 550 ml, I:E 1:3. * loaded with Solu-Medrol 125 mg IVP once and started on 60 mg IVP every 8 hours * duo nebs q 6 hours * Mucinex BID * Added CPT with vest TID and PEP therapy * home inhaler on hold while on nebs and IV steroids. * Wean steroids (3) AMS (altered mental status): Code(s): R41.82 - Altered mental status, unspecified Status: Acute Assessment and Plan: Likely 2/2 to hypercarbic respiratory failure. Patient arrived A&Ox4 per triage note. * confusion from infection? UTI vs pneumonia vs sacral ulcer infection. * Improvement in mental status * Follow (4) Acute UTI: Code(s): N39.0 - Urinary tract infection, site not specified Status: Acute Assessment and Plan: Patient has a chronic corral catheter and history of ESBL. U/A is largely concerning for UTI however, it is not much different from his UA on 08/25 for which the urine culture grew out normal nora. * BCx NGTD. UCx growing ESBL EColi sensitive to Augmentin, Gent, Imipenem and Meropenem. * Continue meropenem * Catheter exchanged in the ED (5) CHF (congestive heart failure): Qualifiers: Heart failure chronicity: acute Heart failure type: unspecified Qualified Code(s): I50.9 - Heart failure, unspecified Code(s): I50.9 - Heart failure, unspecified Status: Acute Assessment and Plan: Last ECHO from 03/2023 showed LV systolic function normal with EF 55-60%, grade 1 diastolic dysfunction. Mild AV valve stenosis. * BNP 653 * Does not appear to be on any medications, including diuretics. * He has trace bilateral lower extremity edema and abdomen is slightly distended but likely from adynamic ileus. He sounds coarse with rhonchi. He feels short of breath at rest. * Lasix 40 mg IVP once but no change in UOP. * Renal function stable. Will monitor for now. (6) Ileus: Code(s): K56.7 - Ileus, unspecified Status: Acute Assessment and Plan: Abdominal distention with pain to palpation. KUB shows stool filled rectosigmoid, likely adynamic ileus with stomach distention. * He passed 4 stools on 10/05 but nothing since * Currently no nausea or vomiting and tolerating clear liquids * Continue bowel regimen for now with some adjustments. * If he starts vomiting then we will insert an NG tube for decompression. (7) Diabetes mellitus: Qualifiers: Diabetes mellitus complication status: without complication Diabetes mellitus longterm insulin use: without longterm use Diabetes mellitus type: type 2 Qualified Code(s): E11.9 - Type 2 diabetes mellitus without complications Code(s): E11.9 - Type 2 diabetes mellitus without complications Status: Chronic Assessment and Plan: Hemoglobin A1C 4.5%. The patient's blood glucose was reviewed on 10/07 Glucose remains elevated related to steroids Continue AccuCheks covering with sliding scale. Hypoglycemia protocol available as needed. Wean steroids as toelrated. Continue to follow Advance diet when able with ensure. He needs level 5 with mildly thickened liquids per speech therapy note. (8) Sacral decubitus ulcer: Code(s): L89.159 - Pressure ulcer of sacral region, unspecified stage Status: Acute Assessment and Plan: Pressure vs sheer injury to sacrum. Area with blanchable erythema and small areas of open tissue with yellow slough. No foul odor or drainage present. * Q2 turns * Off load bony prominence * topical barrier cream applied * wound consult notes reviewed from previous admission recommending application of clear antifungal barrier cream to bilateral buttocks every shift. (9) Lung mass: Code(s): R91.8 - Other nonspecific abnormal finding of lung field Status: Acute Assessment and Plan: Per pulmonology note 07/02/24: Diagnosed with 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 status post radiation therapy on 06/29/2022, s/p Carboplatin-Taxol 1 of 4 cycles on 08/10/2022 and then discontinued for skin wounds and fatigue and deemed not an candidate for further chemotherapy. Plan DVT prophylaxis - Lovenox Code status - modified Subjective Date/time seen: 10/07/24 12:51 Interval history: 78yo male with aortic stenosis, AFib, BPH, CHF, COPD and DM here for SOB. He is a [place] resident. He also has chronic respiratory failure place on 2L at the [place] about 1-2 months ago. He does not wear NIV. Assuming care. Chart reviewed. No chest pain. No nausea or vomiting. He did wear his NIV last night. He wears 2-3 L of oxygen at the halfway. He does not wear NIV chronically. He is passing flatus. No bowel movements. Still having abdominal pain and feeling constipated. Exam Narrative: AF 98.0 120/69 99 20 93% 2L Gen - NARD Chest - decreased BS in the left base; crackles mid and lower right base. Port site right upper chest CV - RRR S1/S2. Tele showing PVCs Abd - Soft, tympantic, +BS, minimal tenderness. - Corral secured draining clear yellow urine Ext - No pedal edema Psych - Nml mood and affect Skin - Warm and dry Objective Data Vital Signs Vital Signs: Vital Signs - 24 hr 10/06/24 14:13 10/06/24 14:26 10/06/24 15:19 Temperature 98.8 F Pulse Rate 91 92 94 Respiratory Rate 22 H 22 H 20 Blood Pressure 106/62 Pulse Oximetry 94 Oxygen Delivery Oxygen Flow Rate Fraction of Inspired Oxygen 10/06/24 16:00 10/06/24 16:00 10/06/24 18:00 Temperature Pulse Rate 93 95 Respiratory Rate Blood Pressure Pulse Oximetry 93 Oxygen Delivery Nasal Cannula Oxygen Flow Rate 3 Fraction of Inspired Oxygen 10/06/24 20:00 10/06/24 20:00 10/06/24 20:34 Temperature 97.8 F Pulse Rate 93 95 93 Respiratory Rate 20 20 Blood Pressure 106/68 Pulse Oximetry 95 94 Oxygen Delivery Nasal Cannula Oxygen Flow Rate 3 Fraction of Inspired Oxygen 10/06/24 20:42 10/06/24 20:52 10/06/24 20:54 Temperature Pulse Rate 89 89 92 Respiratory Rate 22 H 22 H Blood Pressure Pulse Oximetry 93 Oxygen Delivery High Flow Nasal Cannula Oxygen Flow Rate 3 Fraction of Inspired Oxygen 10/06/24 23:00 10/07/24 00:00 10/07/24 00:00 Temperature Pulse Rate 96 96 96 Respiratory Rate 22 H Blood Pressure Pulse Oximetry 93 Oxygen Delivery BiPAP Oxygen Flow Rate Fraction of Inspired Oxygen 40 10/07/24 00:18 10/07/24 02:30 10/06/24 23:45 Temperature 97.7 F Pulse Rate 88 76 96 Respiratory Rate 20 22 H 22 H Blood Pressure 142/85 H Pulse Oximetry 92 Oxygen Delivery BiPAP Oxygen Flow Rate Fraction of Inspired Oxygen 10/07/24 02:30 10/07/24 02:38 10/07/24 02:00 Temperature Pulse Rate 77 78 83 Respiratory Rate 20 20 Blood Pressure Pulse Oximetry 95 Oxygen Delivery BiPAP Oxygen Flow Rate Fraction of Inspired Oxygen 10/07/24 04:06 10/07/24 04:00 10/07/24 04:00 Temperature 97.7 F Pulse Rate 84 87 87 Respiratory Rate 24 H 24 H Blood Pressure 133/66 Pulse Oximetry 96 96 Oxygen Delivery BiPAP Oxygen Flow Rate Fraction of Inspired Oxygen 40 10/07/24 06:00 10/07/24 07:44 10/07/24 09:07 Temperature 98.1 F Pulse Rate 92 88 88 Respiratory Rate 20 22 H Blood Pressure 132/72 Pulse Oximetry 94 Oxygen Delivery Oxygen Flow Rate Fraction of Inspired Oxygen 10/07/24 09:15 10/07/24 09:26 10/07/24 08:00 Temperature Pulse Rate 89 Respiratory Rate 20 Blood Pressure Pulse Oximetry 93 93 Oxygen Delivery High Flow Nasal Cannula High Flow Nasal Cannula Oxygen Flow Rate 2 2 Fraction of Inspired Oxygen 10/07/24 11:19 10/07/24 08:00 10/07/24 10:00 Temperature 98.0 F Pulse Rate 99 93 95 Respiratory Rate 20 Blood Pressure 120/69 Pulse Oximetry 89 L Oxygen Delivery Oxygen Flow Rate Fraction of Inspired Oxygen 10/07/24 12:00 10/07/24 12:00 Temperature Pulse Rate 99 Respiratory Rate Blood Pressure Pulse Oximetry 93 Oxygen Delivery High Flow Nasal Cannula Oxygen Flow Rate 2 Fraction of Inspired Oxygen Intake/Output Intake/Output: Intake & Output 10/04/24 10/05/24 10/06/24 10/07/24 23:59 23:59 23:59 23:59 Intake Total 800 1480 680 Output Total 1200 1350 600 Balance -400 130 80 Meds/Results Medications: Active Medications Generic Name Dose Route Start Last Admin Trade Name Freq PRN Reason Stop Dose Admin Acetaminophen 650 mg 10/05/24 14:39 Acetaminophen 325 Mg Tablet PO Q6H PRN Pain, Mild Ascorbic Acid 500 mg 10/05/24 17:00 10/07/24 09:31 Ascorbic Acid 500 Mg Tablet PO 500 mg BID JILLIAN Administration Bisacodyl 10 mg 10/05/24 14:39 Bisacodyl 5 Mg Tablet Ec PO BID PRN constipation Bisacodyl 10 mg 10/05/24 18:11 Bisacodyl 10 Mg Suppository RECTAL DAILY PRN Constipation Bupropion HCl 150 mg 10/06/24 09:00 10/07/24 09:31 Bupropion Hcl Xl (24 Hr) 150 Mg Tabcr PO 150 mg DAILY JILLIAN Administration Clopidogrel Bisulfate 75 mg 10/06/24 09:00 10/07/24 09:31 Clopidogrel Bisulfate 75 Mg Tablet PO 75 mg DAILY JILLIAN Administration Dextrose 12.5 gm 10/05/24 14:38 Dextrose 50% 25 Gm/50 Ml Syringe IV PUSH PRN PRN Hypoglycemia Protocol Enoxaparin Sodium 40 mg 10/06/24 09:00 10/07/24 09:31 Enoxaparin 40 Mg/0.4 Ml Syringe SUB-Q 40 mg DAILY JILLIAN Administration Fluoxetine HCl 20 mg 10/06/24 09:00 10/07/24 09:31 Fluoxetine Hcl 20 Mg Capsule PO 20 mg DAILY JILLIAN Administration Gabapentin 100 mg 10/05/24 17:00 10/07/24 11:56 Gabapentin 100 Mg Capsule PO 100 mg TID JILLIAN Administration Glucagon 1 mg 10/05/24 14:38 Glucagon For Inj 1 Mg Vial IM PRN PRN Hypoglycemia Protocol Glucose 15 gm 10/05/24 14:38 Glucose Oral Gel 15 Gm Of Glucse In 37.5 Gm Tube PO PRN PRN Hypoglycemia Protocol Guaifenesin 600 mg 10/05/24 21:00 10/07/24 09:31 Guaifenesin 12 Hr 600 Mg Tabcr PO 600 mg Q12HR JILLIAN Administration Meropenem 1 gm in 100 mls @ 200 mls/hr 10/05/24 09:00 10/07/24 09:30 IVPB 200 mls/hr Q8H JILLIAN Administration Doxycycline Hyclate 100 mg in 100 mls @ 100 mls/hr 10/05/24 12:00 10/07/24 11:56 Vibramycin 100 Mg/Ns 100 Ml IVPB 100 mls/hr Q12H JILLIAN Administration Dextrose 1,000 mls @ 100 mls/hr 10/05/24 14:38 Dextrose 5% 1,000 Ml IVPB PRN PRN Hypoglycemia Protocol Vancomycin HCl 1,500 mg in 500 mls @ 250 mls/hr 10/07/24 04:00 10/07/24 04:10 Vancomycin 1,500 Mg/Ns 500 Ml IVPB 250 mls/hr Q24H JILLIAN Administration Insulin Aspart 3 - 6 units 10/05/24 18:00 10/07/24 12:00 Insulin Aspart (*Bkc) 100 Units/Ml SUB-Q 3 units Q6H JILLIAN Administration Protocol Ipratropium [place] 0.5 mg 10/05/24 20:00 10/07/24 09:07 Ipratropium Br 0.02% Inh Soln 0.5 Mg/2.5 Ml Vial INHALATION 0.5 mg Q6HRT JILLIAN Administration Lactulose 20 gm 10/05/24 17:00 10/07/24 11:56 Lactulose 20 Gm/30 Ml Udc PO 20 gm TID JILLIAN Administration Levalbuterol HCl 1.25 mg 10/05/24 20:00 10/07/24 09:07 Levalbuterol Neb 1.25 Mg/3 Ml INHALATION 1.25 mg Q6HRT JILLIAN Administration Levothyroxine Sodium 25 mcg 10/06/24 06:30 10/07/24 06:41 Levothyroxine Sodium 25 Mcg Tablet PO 25 mcg DAILY@0630 JILLIAN Administration Methadone HCl 5 mg 10/05/24 17:00 10/07/24 09:31 Methadone Hcl (*Crx) 5 Mg Tablet PO 5 mg BID JILLIAN Administration Methylprednisolone Sodium Succinate 60 mg 10/05/24 14:00 10/07/24 06:41 Methylprednisolone Sod Succ 125 Mg Vial IV PUSH 60 mg Q8HR JILLIAN Administration Mirtazapine 15 mg 10/05/24 21:00 10/06/24 20:34 Mirtazapine 15 Mg Tablet PO 15 mg HS JILLIAN Administration Multivitamins/Minerals 1 tab 10/06/24 09:00 10/07/24 09:31 Multivitamins /C Lutein (Centrum Silver) Tablet *Bkc PO 1 tab DAILY JILLIAN Administration Mupirocin 1 applic 10/05/24 21:00 10/07/24 12:06 Mupirocin 2% Oint 22 Gm Tube EACH NARE 10/09/24 22:00 1 applic Q12HR JILLIAN Administration Olanzapine 5 mg 10/05/24 17:00 10/07/24 09:31 Olanzapine 5 Mg Tablet PO 5 mg BID JILLIAN Administration Ondansetron HCl 8 mg 10/05/24 14:53 Ondansetron Hcl Odt 4 Mg Tablet PO Q8H PRN Nausea Pantoprazole Sodium 40 mg 10/06/24 09:00 10/07/24 09:31 Pantoprazole 40 Mg Tablet PO 40 mg QAM JILLIAN Administration Polyethylene Glycol 17 gm 10/06/24 09:00 10/07/24 11:42 Polyethylene Glycol 3350 17 Gm Powd.Pack PO 17 gm DAILY JILLIAN Administration Potassium Chloride 20 meq 10/05/24 17:00 10/07/24 09:31 Potassium Chloride 20 Meq Er Tablet PO 20 meq BID JILLIAN Administration Ropinirole HCl 1 mg 10/05/24 21:00 10/06/24 20:34 Ropinirole Hcl 1 Mg Tablet PO 1 mg HS JILLIAN Administration Sucralfate 1 gm 10/05/24 16:30 10/07/24 11:56 Sucralfate 1 Gm Tablet PO 1 gm TIDAC JILLIAN Administration Tamsulosin HCl 0.4 mg 10/05/24 21:00 10/06/24 20:34 Tamsulosin Hcl 0.4 Mg Capsule PO 0.4 mg HS JILLIAN Administration Radiology Results: ITS Impressions Chest X-Ray 10/05/24 06:48 Impression: No acute abnormality. No change from prior exam. Stable loculated effusion or other dense consolidation the right lung apex. Background COPD changes or other chronic interstitial disease. Right-sided Mediport. Abdomen X-Ray 10/05/24 17:24 IMPRESSION: 1. Distended stool-filled rectosigmoid, likely adynamic ileus. 2. Gaseous distention of the stomach. Chest CTA 10/06/24 23:02 IMPRESSION: 1. No pulmonary embolus. Sensitivity is mildly decreased by motion artifact. 2. Bilateral lower lobe pneumonia. 3. Radiation fibrosis involving right upper lobe and superior segment right lower lobe. Labs Labs: Laboratory Results - last 24 hr 10/06/24 10/06/24 10/06/24 17:54 21:07 23:54 WBC RBC Hgb Hct MCV MCH MCHC RDW Plt Count MPV Immature Gran % (Auto) Neut % (Auto) Lymph % (Auto) [place] % (Auto) Eos % (Auto) Baso % (Auto) Lymph # (Auto) [place] # (Auto) Eos # (Auto) Baso # (Auto) Abs Immat Gran (auto) Absolute Neuts (auto) Absolute Nucleated RBC Total Counted Neutrophils % (Manual) Band Neutrophils % Lymphocytes % (Manual) Monocytes % (Manual) Nucleated RBC % Abs Neuts (Manual) Abs Lymphs (Manual) Abs Monocytes (Manual) Platelet Estimate Schistocytes Sodium Potassium Chloride Carbon Dioxide Anion Gap BUN Creatinine Estim Creat Clear Calc Estimated GFR Glucose POC Capillary Glucose 218 H 186 H Calcium Phosphorus Magnesium Total Bilirubin AST ALT Alkaline Phosphatase Ammonia Total Protein Albumin Vitamin B12 Folate TSH (Reflex) Vancomycin Trough 20.1 H 10/07/24 10/07/24 10/07/24 03:54 03:55 06:36 WBC 10.3 H RBC 3.79 L Hgb 11.7 L Hct 36.6 L MCV 96.6 MCH 30.9 MCHC 32.0 RDW 14.2 Plt Count 141 L MPV 11.5 H Immature Gran % (Auto) Not Reportable Neut % (Auto) Not Reportable Lymph % (Auto) Not Reportable [place] % (Auto) Not Reportable Eos % (Auto) Not Reportable Baso % (Auto) Not Reportable Lymph # (Auto) Not Reportable [place] # (Auto) Not Reportable Eos # (Auto) Not Reportable Baso # (Auto) Not Reportable Abs Immat Gran (auto) Not Reportable Absolute Neuts (auto) Not Reportable Absolute Nucleated RBC Not Reportable Total Counted 100 Neutrophils % (Manual) 83 H Band Neutrophils % 10 H Lymphocytes % (Manual) 4 L Monocytes % (Manual) 3 Nucleated RBC % Not Reportable Abs Neuts (Manual) 9.57 H Abs Lymphs (Manual) 0.41 L Abs Monocytes (Manual) 0.30 Platelet Estimate Slightly decreased Schistocytes None seen Sodium 141 Potassium 3.5 Chloride 103 Carbon Dioxide 34 H Anion Gap 4 BUN 41 H Creatinine 0.90 0.90 Estim Creat Clear Calc 59 59 Estimated GFR > 60 > 60 Glucose 194 H POC Capillary Glucose 197 H Calcium 8.1 L Phosphorus 2.2 L Magnesium 1.9 Total Bilirubin 0.2 AST 23 ALT 10 Alkaline Phosphatase 55 Ammonia Total Protein 6.0 L Albumin 2.9 L Vitamin B12 414.0 Folate 10.3 TSH (Reflex) 0.840 Vancomycin Trough 10/07/24 10/07/24 08:22 11:17 WBC RBC Hgb Hct MCV MCH MCHC RDW Plt Count MPV Immature Gran % (Auto) Neut % (Auto) Lymph % (Auto) [place] % (Auto) Eos % (Auto) Baso % (Auto) Lymph # (Auto) [place] # (Auto) Eos # (Auto) Baso # (Auto) Abs Immat Gran (auto) Absolute Neuts (auto) Absolute Nucleated RBC Total Counted Neutrophils % (Manual) Band Neutrophils % Lymphocytes % (Manual) Monocytes % (Manual) Nucleated RBC % Abs Neuts (Manual) Abs Lymphs (Manual) Abs Monocytes (Manual) Platelet Estimate Schistocytes Sodium Potassium Chloride Carbon Dioxide Anion Gap BUN Creatinine Estim Creat Clear Calc Estimated GFR Glucose POC Capillary Glucose 238 H Calcium Phosphorus Magnesium Total Bilirubin AST ALT Alkaline Phosphatase Ammonia 32 H Total Protein Albumin Vitamin B12 Folate TSH (Reflex) Vancomycin Trough
[2024-10-07] MEDS: POTASSIUM/PHOSPHORUS/SODIUM 1.5 GM PACKET 1 PACKET PO (17:16)
[2024-10-07 17:39] LABS: Glucose Point of Care 254 mg/dl (65-105)
[2024-10-07] MEDS: DOXYCYCLINE HYCLATE 100 MG TABLET PO (21:18)
[2024-10-07] MEDS: TAMSULOSIN HCL 0.4 MG CAPSULE PO (21:18)
[2024-10-07] MEDS: methylPREDNISolone SOD SUCC 40 MG VIAL IV PUSH (21:18)
[2024-10-07] MEDS: rOPINIRole HCL 1 MG TABLET PO (21:18)
[2024-10-07] MEDS: MIRTAZAPINE 15 MG TABLET PO (21:18)
[2024-10-08] VITALS (25 sets, daily range): BP systolic 122–144; BP diastolic 57–92; PULSE 68–984; RESP 18–23; TEMP 36.5–37; O2SAT 94–100
[2024-10-08 00:40] LABS: Glucose Point of Care 170 mg/dl (65-105)
[2024-10-08] MEDS: MEROPENEM 1 GM/NS 100 ML 1 GM/100 ML BAG IVPB ×3 (00:53→17:09)
[2024-10-08] MEDS: LEVALBUTEROL NEB 1.25 MG/3 ML INHALATION ×4 (02:10→20:33)
[2024-10-08] MEDS: IPRATROPIUM BR 0.02% INH SOLN 0.5 MG/2.5 ML VIAL INHALATION ×4 (02:10→20:33)
[2024-10-08 05:37] LABS: Hematocrit 34.7 % (42.0-52.0); Hemoglobin 10.7 g/dL (14.0-18.0); Immature Granulocyte Absolute 0.06 K/mm3 (0.00-0.031); Immature Granulocyte Percent A 0.7 % (0-0.5); Lymphocytes Absolute Auto 0.45 K/mm3 (0.9-3.2); Mean Corpuscular HGB Conc 30.8 g/dl (32-36); Mean Corpuscular Volume 97.2 fl (80-100); Mean Platelet Volume 11.3 fl (7.4-10.4); Monocytes Absolute Auto 0.4 K/mm3 (0.1-0.6); Neutrophils Absolute Auto 8.2 K/mm3 (1.3-6.7); Neutrophils Percent Auto 90.3 % (45.5-73.1); Platelet Count Result 139 k/mm3 (150-375); Red Blood Count 3.57 M/mm3 (4.6-6.20); Red Cell Distribution Width 14.3 % (11.5-14.5); White Blood Count 9.1 K/mm3 (4.5-10.0)
[2024-10-08] MEDS: LEVOTHYROXINE SODIUM 25 MCG TABLET PO (05:52)
[2024-10-08] MEDS: SUCRALFATE 1 GM TABLET PO ×3 (05:52→17:09)
[2024-10-08] MEDS: methylPREDNISolone SOD SUCC 40 MG VIAL IV PUSH ×3 (05:53→21:05)
[2024-10-08 05:57] LABS: Alanine Aminotransferase 10 U/L (6-50); Albumin Level 2.7 g/dL (3.5-5.1); Alkaline Phosphatase 49 U/L (38-126); Anion Gap 2 mmol/L (4-12); Aspartate Amino Transferase 13 U/L (17-59); Bilirubin,Total 0.2 mg/dL (0.2-1.3); Blood Urea Nitrogen 42 mg/dL (9-20); Carbon Dioxide 34 mmol/L (22-30); Chloride 106 mmol/L (98-107); Estimated CRCL calculation 75 ml/min; Estimated Glomerular Filt Rate > 60; Glucose 167 mg/dL (65-110); Phosphorus 2.3 mg/dL (2.5-4.5); Potassium 4.4 mmol/L (3.4-5.0); Sodium 142 mmol/L (137-145)
[2024-10-08] MEDS: POTASSIUM/PHOSPHORUS/SODIUM 1.5 GM PACKET 1 PACKET PO (08:55)
[2024-10-08] MEDS: methADONE HCL (*CRX) 5 MG TABLET PO ×2 (08:56→17:09)
[2024-10-08] MEDS: buPROPion HCL XL (24 HR) 150 MG TABCR PO (08:56)
[2024-10-08] MEDS: ENOXAPARIN 40 MG/0.4 ML SYRINGE SUB-Q (08:56)
[2024-10-08] MEDS: LACTULOSE 20 GM/30 ML UDC PO ×3 (08:56→17:09)
[2024-10-08] MEDS: MULTIVITAMINS /C LUTEIN (CENTRUM SILVER) TABLET *BKC 1 TAB PO (08:56)
[2024-10-08] MEDS: guaiFENesin 12 HR 600 MG TABCR PO ×2 (08:57→21:05)
[2024-10-08] MEDS: ASCORBIC ACID 500 MG TABLET PO ×2 (08:57→17:09)
[2024-10-08] MEDS: CLOPIDOGREL BISULFATE 75 MG TABLET PO (08:57)
[2024-10-08] MEDS: DOXYCYCLINE HYCLATE 100 MG TABLET PO ×2 (08:57→21:05)
[2024-10-08] MEDS: PANTOPRAZOLE 40 MG TABLET PO (08:57)
[2024-10-08] MEDS: OLANZapine 5 MG TABLET PO ×2 (08:57→17:10)
[2024-10-08] MEDS: GABAPENTIN 100 MG CAPSULE PO ×3 (08:57→17:09)
[2024-10-08] MEDS: MUPIROCIN 2% OINT 22 GM TUBE 1 APPLIC EACH NARE ×2 (08:57→21:05)
[2024-10-08] MEDS: FLUoxetine HCL 20 MG CAPSULE PO (08:58)
[2024-10-08 11:52] LABS: Glucose Point of Care 186 mg/dl (65-105)
--- NOTE | 2024-10-08 13:15 | P.PNIM_ITS ---
Progress Note: A&P Assessment and Plan (1) Acute hypoxemic respiratory failure: Code(s): J96.01 - Acute respiratory failure with hypoxia Status: Acute Assessment and Plan: Patient presented to the ED via EMS wearing non-rebreather. ABG showed 7.33/62/149 on 15L NRBM Hypercarbic respiratory failure and was placed on BiPAP 18/6, rate 18, 50% Fio2. Patient has a history of ANIA and is non-compliant with CPAP as well as a history of COPD. He also has a history of aspiration pneumonia. Repeat ABG showed improvement but patient was lethargic. Case was discussed with ICU physician and changed to AVAPS mode with benefit * Repeat gas showed ph 7.407, pCO2 45.5, pO2 75.8, HCO3 28.8. Patient is alert and orientated x 3 * He was transitioned back to his baseline oxygen of 2-3 L NC. Continue Bipap at night and during naps. * Chest x-ray shows a stable right apical consolidation (area of previous cancer) with no changes from prior exam. Findings have been present since 07/2023 * WBC 10.9, lactic normal at 1.2, procal 0.1, CRP 4.5 * D-dimer positive. CTA was negative for PE but does show bilaterla LL PNA. * Quad viral screen negative, MRSA positive * Blood cultures NGTD * started on broad spectrum abx with meropenem, vancomycin, and doxycycline. * Abx simplified to doxy and meropenem. Abx for 7 days. * Check LE venous dopplers. (2) COPD (chronic obstructive pulmonary disease): Code(s): J44.9 - Chronic obstructive pulmonary disease, unspecified Status: Acute Assessment and Plan: History of COPD on 2-3 L NC at baseline. He has a history of ANIA, noncompliant with Cpap. * initially on BiPAP but switched to AVAPs mode with improvement * loaded with Solu-Medrol 125 mg IVP once and started on 60 mg IVP every 8 hours * duo nebs q 6 hours * Mucinex BID * Added CPT with vest TID and PEP therapy * Wean steroids. Determine if he can have BiPAP at the facility (3) AMS (altered mental status): Code(s): R41.82 - Altered mental status, unspecified Status: Acute Assessment and Plan: Likely 2/2 to hypercarbic respiratory failure. Patient arrived A&Ox4 per triage note. * confusion from infection? UTI vs pneumonia vs sacral ulcer infection. * Improvement in mental status * Follow (4) Acute UTI: Code(s): N39.0 - Urinary tract infection, site not specified Status: Acute Assessment and Plan: Patient has a chronic corral catheter and history of ESBL. U/A is largely concerning for UTI however, it is not much different from his UA on 08/25 for which the urine culture grew out normal nora. * BCx NGTD. UCx growing ESBL EColi sensitive to Augmentin, Gent, Imipenem and Meropenem. * Continue meropenem * Catheter exchanged in the ED (5) CHF (congestive heart failure): Qualifiers: Heart failure chronicity: acute Heart failure type: unspecified Qualified Code(s): I50.9 - Heart failure, unspecified Code(s): I50.9 - Heart failure, unspecified Status: Acute Assessment and Plan: ECHO from 04/09 showed LV systolic fxn normal with EF 55-60%, grade 1 diastolic dysfunction. Mild AV valve stenosis. * BNP 653 * Does not appear to be on any cardiac medications, including diuretics. * He has trace bilateral lower extremity edema and abdomen is slightly distended but likely from adynamic ileus. He sounds coarse with rhonchi. He feels short of breath at rest. * Lasix 40 mg IVP once but no change in UOP. * Renal function stable. Will monitor for now. (6) Ileus: Code(s): K56.7 - Ileus, unspecified Status: Acute Assessment and Plan: Abdominal distention with pain to palpation. KUB shows stool filled rectosigmoid, likely adynamic ileus with stomach distention and constipation. * He passed 4 stools on 10/05 and 1 listed today (but RN states he had multiple stools overnight) * Currently no nausea or vomiting and tolerating diet. Exam much improved * KUB showing fecal impaction. * Continue bowel regimen with lactulose. 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 The patient's blood glucose was reviewed on 10/08 Glucose remains elevated related to steroids Continue AccuCheks covering with sliding scale. Hypoglycemia protocol available as needed. Advanced diet to diabetic diet and added level 5 minced/moist with mildly thickened liquids per recent speech therapy note. (8) Sacral decubitus ulcer: Code(s): L89.159 - Pressure ulcer of sacral region, unspecified stage Status: Acute Assessment and Plan: Pressure vs sheer injury to sacrum. Area with blanchable erythema and small areas of open tissue with yellow slough. No foul odor or drainage present. * Q2 turns * Off load bony prominence * topical barrier cream applied * wound consult notes reviewed from previous admission recommending application of clear antifungal barrier cream to bilateral buttocks every shift. (9) Lung cancer: Code(s): C34.90 - Malignant neoplasm of unspecified part of unspecified bronchus or lung Status: Acute Assessment and Plan: Per pulmonology note 07/02/24: Patient was diagnosed with 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 status post radiation therapy on 06/29/2022, s/p Carboplatin- Taxol 1 of 4 cycles on 08/10/2022 and then discontinued for skin wounds and fati agueda and deemed not an candidate for further chemotherapy. Plan DVT prophylaxis - Lovenox Code status - modified Subjective Date/time seen: 10/08/24 13:15 Interval history: 78yo male with aortic stenosis, AFib, BPH, CHF, COPD and DM here for SOB. He is a [facility] resident. He also has chronic respiratory failure place on 2L at the [facility] about 1-2 months ago. He does not wear NIV. Patient feeling better. +BMs. No n/v. No abd pain. No CP. Exam Narrative: AF 97.7 236/60 84 18 94% ra Gen - NARD Chest - clear anteriorly . Port site right upper chest CV - RRR S1/S2. Tele showing no significant dysrhythmias Abd - Soft,less distended, NT, +BS - Corral secured draining clear yellow urine Ext - No pedal edema Psych - Nml mood and affect Skin - Warm and dry Objective Data Vital Signs Vital Signs: Vital Signs - 24 hr 10/07/24 13:22 10/07/24 13:39 10/07/24 15:49 Temperature 98.1 F Pulse Rate 94 95 91 Respiratory Rate 20 20 20 Blood Pressure 115/73 Pulse Oximetry 95 Oxygen Delivery Oxygen Flow Rate 10/07/24 16:00 10/07/24 16:00 10/07/24 18:00 Temperature Pulse Rate 92 95 Respiratory Rate Blood Pressure Pulse Oximetry 95 Oxygen Delivery High Flow Nasal Cannula Oxygen Flow Rate 2 10/07/24 20:00 10/07/24 20:30 10/07/24 20:42 Temperature 98.1 F Pulse Rate 90 94 Respiratory Rate 20 20 Blood Pressure 138/77 Pulse Oximetry 90 93 Oxygen Delivery High Flow Nasal Cannula Oxygen Flow Rate 3 10/07/24 20:43 10/07/24 20:00 10/07/24 20:00 Temperature Pulse Rate 95 94 Respiratory Rate 20 Blood Pressure Pulse Oximetry 97 Oxygen Delivery High Flow Nasal Cannula Oxygen Flow Rate 3 10/08/24 00:00 10/08/24 00:40 10/08/24 00:00 Temperature 98 F Pulse Rate 80 77 Respiratory Rate 20 21 H Blood Pressure 126/64 Pulse Oximetry 97 94 94 Oxygen Delivery High Flow Nasal Cannula Oxygen Flow Rate 3 10/08/24 02:10 10/08/24 02:11 10/07/24 22:00 Temperature Pulse Rate 87 83 93 Respiratory Rate 20 23 H Blood Pressure Pulse Oximetry 97 Oxygen Delivery Oxygen Flow Rate 10/08/24 00:00 10/08/24 02:00 10/08/24 04:42 Temperature Pulse Rate 80 76 80 Respiratory Rate 22 H Blood Pressure Pulse Oximetry 97 Oxygen Delivery Oxygen Flow Rate 10/08/24 04:00 10/08/24 04:00 10/08/24 04:00 Temperature 98.1 F Pulse Rate 68 984 H Respiratory Rate 19 Blood Pressure 124/59 L Pulse Oximetry 95 97 Oxygen Delivery High Flow Nasal Cannula Oxygen Flow Rate 3 10/08/24 06:00 10/08/24 07:50 10/08/24 07:50 Temperature Pulse Rate 75 77 Respiratory Rate 20 Blood Pressure Pulse Oximetry 99 Oxygen Delivery Nasal Cannula Oxygen Flow Rate 2 10/08/24 08:10 10/08/24 08:00 10/08/24 11:28 Temperature 98.0 F 97.7 F Pulse Rate 84 84 84 Respiratory Rate 20 18 18 Blood Pressure 141/92 H 136/60 Pulse Oximetry 100 94 Oxygen Delivery Oxygen Flow Rate 10/08/24 11:23 Temperature Pulse Rate Respiratory Rate Blood Pressure Pulse Oximetry Oxygen Delivery Room Air Oxygen Flow Rate Intake/Output Intake/Output: Intake & Output 10/05/24 10/06/24 10/07/24 10/08/24 23:59 23:59 23:59 23:59 Intake Total 800 1480 2040 340 Output Total 1200 1350 1075 500 Balance -400 130 965 -160 Meds/Results Medications: Active Medications Generic Name Dose Route Start Last Admin Trade Name Freq PRN Reason Stop Dose Admin Acetaminophen 650 mg 10/05/24 14:39 Acetaminophen 325 Mg Tablet PO Q6H PRN Pain, Mild Ascorbic Acid 500 mg 10/05/24 17:00 10/08/24 08:57 Ascorbic Acid 500 Mg Tablet PO 500 mg BID JILLIAN Administration Bisacodyl 10 mg 10/05/24 14:39 Bisacodyl 5 Mg Tablet Ec PO BID PRN constipation Bisacodyl 10 mg 10/05/24 18:11 Bisacodyl 10 Mg Suppository RECTAL DAILY PRN Constipation Bupropion HCl 150 mg 10/06/24 09:00 10/08/24 08:56 Bupropion Hcl Xl (24 Hr) 150 Mg Tabcr PO 150 mg DAILY JILLIAN Administration Clopidogrel Bisulfate 75 mg 10/06/24 09:00 10/08/24 08:57 Clopidogrel Bisulfate 75 Mg Tablet PO 75 mg DAILY JILLIAN Administration Dextrose 12.5 gm 10/05/24 14:38 Dextrose 50% 25 Gm/50 Ml Syringe IV PUSH PRN PRN Hypoglycemia Protocol Doxycycline Hyclate 100 mg 10/07/24 21:00 10/08/24 08:57 Doxycycline Hyclate 100 Mg Tablet PO 100 mg Q12HR JILLIAN Administration Enoxaparin Sodium 40 mg 10/06/24 09:00 10/08/24 08:56 Enoxaparin 40 Mg/0.4 Ml Syringe SUB-Q 40 mg DAILY JILLIAN Administration Fluoxetine HCl 20 mg 10/06/24 09:00 10/08/24 08:58 Fluoxetine Hcl 20 Mg Capsule PO 20 mg DAILY JILLIAN Administration Gabapentin 100 mg 10/05/24 17:00 10/08/24 12:05 Gabapentin 100 Mg Capsule PO 100 mg TID JILLIAN Administration Glucagon 1 mg 10/05/24 14:38 Glucagon For Inj 1 Mg Vial IM PRN PRN Hypoglycemia Protocol Glucose 15 gm 10/05/24 14:38 Glucose Oral Gel 15 Gm Of Glucse In 37.5 Gm Tube PO PRN PRN Hypoglycemia Protocol Guaifenesin 600 mg 10/05/24 21:00 10/08/24 08:57 Guaifenesin 12 Hr 600 Mg Tabcr PO 600 mg Q12HR JILLIAN Administration Meropenem 1 gm in 100 mls @ 200 mls/hr 10/05/24 09:00 10/08/24 08:56 IVPB 10/12/24 01:29 200 mls/hr Q8H JILLIAN Administration Dextrose 1,000 mls @ 100 mls/hr 10/05/24 14:38 Dextrose 5% 1,000 Ml IVPB PRN PRN Hypoglycemia Protocol Insulin Aspart 3 - 6 units 10/05/24 18:00 10/08/24 12:05 Insulin Aspart (*Bkc) 100 Units/Ml SUB-Q Not Given Q6H JILLIAN Protocol Ipratropium [place] 0.5 mg 10/05/24 20:00 10/08/24 07:50 Ipratropium Br 0.02% Inh Soln 0.5 Mg/2.5 Ml Vial INHALATION 0.5 mg Q6HRT JILLIAN Administration Lactulose 20 gm 10/05/24 17:00 10/08/24 12:05 Lactulose 20 Gm/30 Ml Udc PO 20 gm TID JILLIAN Administration Levalbuterol HCl 1.25 mg 10/05/24 20:00 10/08/24 07:50 Levalbuterol Neb 1.25 Mg/3 Ml INHALATION 1.25 mg Q6HRT JILLIAN Administration Levothyroxine Sodium 25 mcg 10/06/24 06:30 10/08/24 05:52 Levothyroxine Sodium 25 Mcg Tablet PO 25 mcg DAILY@0630 JILLIAN Administration Methadone HCl 5 mg 10/05/24 17:00 10/08/24 08:56 Methadone Hcl (*Crx) 5 Mg Tablet PO 5 mg BID JILLIAN Administration Methylprednisolone Sodium Succinate 40 mg 10/07/24 22:00 10/08/24 13:13 Methylprednisolone Sod Succ 40 Mg Vial IV PUSH 40 mg Q8HR JILLIAN Administration Mirtazapine 15 mg 10/05/24 21:00 10/07/24 21:18 Mirtazapine 15 Mg Tablet PO 15 mg HS JILLIAN Administration Multivitamins/Minerals 1 tab 10/06/24 09:00 10/08/24 08:56 Multivitamins /C Lutein (Centrum Silver) Tablet *Bkc PO 1 tab DAILY JILLIAN Administration Mupirocin 1 applic 10/05/24 21:00 10/08/24 08:57 Mupirocin 2% Oint 22 Gm Tube EACH NARE 10/09/24 22:00 1 applic Q12HR JILLIAN Administration Olanzapine 5 mg 10/05/24 17:00 10/08/24 08:57 Olanzapine 5 Mg Tablet PO 5 mg BID JILLIAN Administration Ondansetron HCl 8 mg 10/05/24 14:53 Ondansetron Hcl Odt 4 Mg Tablet PO Q8H PRN Nausea Pantoprazole Sodium 40 mg 10/06/24 09:00 10/08/24 08:57 Pantoprazole 40 Mg Tablet PO 40 mg QAM JILLIAN Administration Potassium Chloride 20 meq 10/05/24 17:00 10/07/24 17:14 Potassium Chloride 20 Meq Er Tablet PO 20 meq BID JILLIAN Administration Ropinirole HCl 1 mg 10/05/24 21:00 10/07/24 21:18 Ropinirole Hcl 1 Mg Tablet PO 1 mg HS JILLIAN Administration Sucralfate 1 gm 10/05/24 16:30 10/08/24 12:04 Sucralfate 1 Gm Tablet PO 1 gm TIDAC JILLIAN Administration Tamsulosin HCl 0.4 mg 10/05/24 21:00 10/07/24 21:18 Tamsulosin Hcl 0.4 Mg Capsule PO 0.4 mg HS JILLIAN Administration Radiology Results: ITS Impressions Chest CTA 10/06/24 23:02 IMPRESSION: 1. No pulmonary embolus. Sensitivity is mildly decreased by motion artifact. 2. Bilateral lower lobe pneumonia. 3. Radiation fibrosis involving right upper lobe and superior segment right lower lobe. Chest X-Ray 10/08/24 06:41 Impression: Stable dense airspace opacity right lung apex region, which could reflect loculated effusion, or possibly right upper lobe collapse. Stable right-sided Mediport. Abdomen X-Ray 10/08/24 10:49 Impression: Fecal impaction and constipation. Labs Labs: Laboratory Results - last 24 hr 10/07/24 10/08/24 10/08/24 17:36 00:36 04:39 WBC 9.1 RBC 3.57 L Hgb 10.7 L Hct 34.7 L MCV 97.2 MCH 30.0 MCHC 30.8 L RDW 14.3 Plt Count 139 L MPV 11.3 H Immature Gran % (Auto) 0.7 H Neut % (Auto) 90.3 H Lymph % (Auto) 5.0 L [place] % (Auto) 4.0 Eos % (Auto) 0.0 Baso % (Auto) 0.0 L Lymph # (Auto) 0.45 L [place] # (Auto) 0.4 Eos # (Auto) 0.0 Baso # (Auto) 0.0 Abs Immat Gran (auto) 0.06 H Absolute Neuts (auto) 8.2 H Absolute Nucleated RBC 0.000 Nucleated RBC % 0.0 Sodium 142 Potassium 4.4 Chloride 106 Carbon Dioxide 34 H Anion Gap 2 L BUN 42 H Creatinine 0.70 Estim Creat Clear Calc 75 Estimated GFR > 60 Glucose 167 H POC Capillary Glucose 254 H 170 H Calcium 8.0 L Phosphorus 2.3 L Magnesium 2.0 Total Bilirubin 0.2 AST 13 L ALT 10 Alkaline Phosphatase 49 Total Protein 6.0 L Albumin 2.7 L 10/08/24 11:48 WBC RBC Hgb Hct MCV MCH MCHC RDW Plt Count MPV Immature Gran % (Auto) Neut % (Auto) Lymph % (Auto) [place] % (Auto) Eos % (Auto) Baso % (Auto) Lymph # (Auto) [place] # (Auto) Eos # (Auto) Baso # (Auto) Abs Immat Gran (auto) Absolute Neuts (auto) Absolute Nucleated RBC Nucleated RBC % Sodium Potassium Chloride Carbon Dioxide Anion Gap BUN Creatinine Estim Creat Clear Calc Estimated GFR Glucose POC Capillary Glucose 186 H Calcium Phosphorus Magnesium Total Bilirubin AST ALT Alkaline Phosphatase Total Protein Albumin
[2024-10-08 17:52] LABS: Glucose Point of Care 141 mg/dl (65-105)
[2024-10-08] MEDS: MIRTAZAPINE 15 MG TABLET PO (21:04)
[2024-10-08] MEDS: rOPINIRole HCL 1 MG TABLET PO (21:04)
[2024-10-08] MEDS: APIXABAN 5 MG TABLET 10 MG PO (21:05)
[2024-10-08] MEDS: TAMSULOSIN HCL 0.4 MG CAPSULE PO (21:05)
[2024-10-09] VITALS (22 sets, daily range): BP systolic 118–139; BP diastolic 55–78; PULSE 70–97; RESP 16–22; TEMP 36.6–37.4; O2SAT 91–97
[2024-10-09] MEDS: MEROPENEM 1 GM/NS 100 ML 1 GM/100 ML BAG IVPB ×3 (00:17→17:18)
[2024-10-09 00:31] LABS: Glucose Point of Care 140 mg/dl (65-105)
[2024-10-09] MEDS: LEVALBUTEROL NEB 1.25 MG/3 ML INHALATION ×4 (01:21→19:30)
[2024-10-09] MEDS: IPRATROPIUM BR 0.02% INH SOLN 0.5 MG/2.5 ML VIAL INHALATION ×4 (01:21→19:30)
[2024-10-09 04:51] LABS: Albumin Level 2.6 g/dL (3.5-5.1); Anion Gap 2 mmol/L (4-12); Blood Urea Nitrogen 36 mg/dL (9-20); Carbon Dioxide 36 mmol/L (22-30); Chloride 102 mmol/L (98-107); Estimated CRCL calculation 75 ml/min; Estimated Glomerular Filt Rate > 60; Glucose 171 mg/dL (65-110); Phosphorus 2.3 mg/dL (2.5-4.5); Potassium 4.4 mmol/L (3.4-5.0); Sodium 140 mmol/L (137-145)
[2024-10-09] MEDS: LEVOTHYROXINE SODIUM 25 MCG TABLET PO (06:05)
[2024-10-09] MEDS: SUCRALFATE 1 GM TABLET PO ×3 (06:05→17:18)
[2024-10-09] MEDS: POTASSIUM/PHOSPHORUS/SODIUM 1.5 GM PACKET 1 PACKET PO (08:40)
[2024-10-09] MEDS: methADONE HCL (*CRX) 5 MG TABLET PO ×2 (08:40→17:18)
[2024-10-09] MEDS: GABAPENTIN 100 MG CAPSULE PO ×3 (08:41→17:18)
[2024-10-09] MEDS: FLUoxetine HCL 20 MG CAPSULE PO (08:41)
[2024-10-09] MEDS: DOXYCYCLINE HYCLATE 100 MG TABLET PO ×2 (08:41→21:16)
[2024-10-09] MEDS: buPROPion HCL XL (24 HR) 150 MG TABCR PO (08:41)
[2024-10-09] MEDS: OLANZapine 5 MG TABLET PO ×2 (08:41→17:18)
[2024-10-09] MEDS: ASCORBIC ACID 500 MG TABLET PO ×2 (08:41→17:18)
[2024-10-09] MEDS: PANTOPRAZOLE 40 MG TABLET PO (08:41)
[2024-10-09] MEDS: APIXABAN 5 MG TABLET 10 MG PO ×2 (08:41→21:16)
[2024-10-09] MEDS: guaiFENesin 12 HR 600 MG TABCR PO ×2 (08:41→21:16)
[2024-10-09] MEDS: MULTIVITAMINS /C LUTEIN (CENTRUM SILVER) TABLET *BKC 1 TAB PO (08:41)
[2024-10-09] MEDS: predniSONE 20 MG TABLET 40 MG PO (08:41)
[2024-10-09] MEDS: MUPIROCIN 2% OINT 22 GM TUBE 1 APPLIC EACH NARE ×2 (08:42→21:16)
[2024-10-09] MEDS: LACTULOSE 20 GM/30 ML UDC PO ×3 (08:42→17:18)
[2024-10-09 15:12] LABS: Glucose Point of Care 94 mg/dl (65-105)
--- NOTE | 2024-10-09 15:59 | P.PNIM_ITS ---
Progress Note: A&P Assessment and Plan (1) Acute hypoxemic respiratory failure: Code(s): J96.01 - Acute respiratory failure with hypoxia Status: Acute Assessment and Plan: Patient presented to the ED via EMS wearing non-rebreather. ABG showed 7.33/62/149 on 15L NRBM Hypercarbic respiratory failure and was placed on BiPAP. Patient has a history of ANIA and is non-compliant with CPAP as well as a history of COPD. He also has a history of aspiration pneumonia. Repeat ABG showed improvement but patient was lethargic. Case was discussed with ICU physician and changed to AVAPS mode with benefit. * Repeat gas showed ph 7.407, pCO2 45.5, pO2 75.8, HCO3 28.8. Patient is alert and orientated x 3 * He was transitioned back to his baseline oxygen of 2-3 L NC. Continue Bipap at night and during naps. * Chest x-ray shows a stable right apical consolidation (area of previous cancer) with no changes from prior exam. Findings have been present since 07/2023 * WBC 10.9, lactic normal at 1.2, PCT 0.1, CRP 4.5 * D-dimer positive. CTA was negative for PE but does show bilateral LL PNA. * Quad viral screen negative, MRSA positive * Blood cultures NGTD * started on broad spectrum abx with meropenem, vancomycin, and doxycycline. * Abx simplified to doxy and meropenem. Abx for 7 days. (2) DVT (deep venous thrombosis): Code(s): I82.409 - Acute embolism and thrombosis of unspecified deep veins of unspecified lower extremity Status: Acute Assessment and Plan: D-dimer positive. CTA was negative for PE but does show bilateral LL PNA. Patient found to have a right femoral DVT by doppler. Patient has a hx of AFib and was on Eliquis and ASA at discharge on Jun 2024. Urology note from Jul 2024 showing only ASA. He did have gross heamturia noted at some point Patient only on Plavix at discharge in August 2024 Will proceed with treatment with Eliquis and stop Plavix. Consider filter if he has evidence of bleeding (3) Pneumonia: Qualifiers: Laterality: right Lung location: upper lobe of lung Pneumonia type: due to unspecified organism Qualified Code(s): J18.9 - Pneumonia, unspecified organism Code(s): J18.9 - Pneumonia, unspecified organism Status: Acute Assessment and Plan: As above. Possible aspiration given his hx of dysphagia (4) COPD (chronic obstructive pulmonary disease): Code(s): J44.9 - Chronic obstructive pulmonary disease, unspecified Status: Acute Assessment and Plan: History of COPD on 2-3 L NC at baseline. He has a history of ANIA, noncompliant with Cpap. * initially on BiPAP but switched to AVAPs mode with improvement * loaded with Solu-Medrol 125 mg IVP once and started on 60 mg IVP every 8 hours * duo nebs q 6 hours * Mucinex BID * Added CPT with vest TID and PEP therapy * Wean steroids. Determine if he can have BiPAP at the facility (5) AMS (altered mental status): Code(s): R41.82 - Altered mental status, unspecified Status: Acute Assessment and Plan: Likely 2/2 to hypercarbic respiratory failure. Patient arrived A&Ox4 per triage note. * confusion from infection? UTI vs pneumonia vs sacral ulcer infection. * Improvement in mental status * Follow (6) Acute UTI: Code(s): N39.0 - Urinary tract infection, site not specified Status: Acute Assessment and Plan: Patient has a chronic corral catheter and history of ESBL. U/A is largely concerning for UTI however, it is not much different from his UA on 08/25 for which the urine culture grew out normal nora. * BCx NGTD. UCx growing ESBL EColi sensitive to Augmentin, Gent, Imipenem and Meropenem. * Continue meropenem for 7 days * Catheter exchanged in the ED (7) CHF (congestive heart failure): Qualifiers: Heart failure chronicity: acute Heart failure type: unspecified Qualified Code(s): I50.9 - Heart failure, unspecified Code(s): I50.9 - Heart failure, unspecified Status: Acute Assessment and Plan: ECHO from 04/09 showed LV systolic fxn normal with EF 55-60%, grade 1 diastolic dysfunction. Mild AV valve stenosis. * BNP 653 * Does not appear to be on any cardiac medications, including diuretics. * He has trace bilateral lower extremity edema and abdomen is slightly distended but likely from adynamic ileus. He sounds coarse with rhonchi. He feels short of breath at rest. * Lasix 40 mg IVP once but no change in UOP. * Renal function stable. Will monitor for now. (8) Ileus: Code(s): K56.7 - Ileus, unspecified Status: Acute Assessment and Plan: Abdominal distention with pain to palpation. KUB shows stool filled rectosigmoid, likely adynamic ileus with stomach distention and constipation. * He passed 4 stools on 10/05 and 1 listed today (but RN states he had multiple stools overnight) * Currently no nausea or vomiting and tolerating diet. Exam much improved * KUB showing fecal impaction but multiple stools since xray * Continue bowel regimen with lactulose. (9) Diabetes mellitus: Qualifiers: Diabetes mellitus type: type 2 Diabetes mellitus residential insulin use: without filler leaf cutter long use Diabetes mellitus complication status: without complication Qualified Code(s): E11.9 - Type 2 diabetes mellitus without complications Code(s): E11.9 - Type 2 diabetes mellitus without complications Status: Chronic Assessment and Plan: Hemoglobin A1C 4.5%. The patient's blood glucose was reviewed on 10/09 Glucose mildly elevated related to steroids Continue AccuCheks covering with sliding scale. Hypoglycemia protocol available as needed. Continue diabetic diet with level 5 minced/moist with mildly thickened liquids per recent speech therapy note. (10) Sacral decubitus ulcer: Code(s): L89.159 - Pressure ulcer of sacral region, unspecified stage Status: Acute Assessment and Plan: Pressure vs sheer injury to sacrum. Area with blanchable erythema and small areas of open tissue with yellow slough. No foul odor or drainage present. * Q2 turns * Off load bony prominence * topical barrier cream applied * wound consult notes reviewed from previous admission recommending application of clear antifungal barrier cream to bilateral buttocks every shift. 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 Plan DVT prophylaxis - Eliquis Code status - modified Subjective Date/time seen: 10/09/24 15:59 Interval history: 78yo male with aortic stenosis, AFib, BPH, CHF, COPD and DM here for SOB. He is a [place] resident. He also has chronic respiratory failure place on 2L at the [place] about 1-2 months ago. He does not wear NIV. Patient is alert and mostly oriented. He is not sure if he wore his mask last night. No CP or SOB. He is having a cough that is slightly productive. Not out of bed at all. Exam Narrative: AF 98.3 127/60 88 22 94% 2L Gen - NARD Chest - lungs clear anteriorly and in the flanks. Port site right upper chest CV - RRR S1/S2. Tele showing PVCs Abd - Soft, NT/ND, +BS - Corral secured draining clear yellow urine Ext - No pedal edema Psych - Nml mood and affect. oriented x3 (not month) Skin - Warm and dry. sacral area partially visualized with shallow ulcers noted. Objective Data Vital Signs Vital Signs: Vital Signs - 24 hr 10/08/24 16:00 10/08/24 16:00 10/08/24 16:00 Temperature 97.7 F Pulse Rate 80 75 75 Respiratory Rate 18 Blood Pressure 144/88 H Pulse Oximetry 96 95 Oxygen Delivery High Flow Nasal Cannula Oxygen Flow Rate 2 10/08/24 18:00 10/08/24 18:33 10/08/24 20:34 Temperature 98.6 F Pulse Rate 80 80 80 Respiratory Rate 18 20 Blood Pressure 122/57 L Pulse Oximetry 94 Oxygen Delivery Oxygen Flow Rate 10/08/24 20:44 10/08/24 20:50 10/08/24 20:00 Temperature Pulse Rate 81 Respiratory Rate 20 Blood Pressure Pulse Oximetry 96 96 Oxygen Delivery Nasal Cannula Nasal Cannula Oxygen Flow Rate 2 2 10/08/24 20:00 10/08/24 22:00 10/09/24 00:00 Temperature 98 F Pulse Rate 79 82 78 Respiratory Rate 20 Blood Pressure 120/55 L Pulse Oximetry 96 Oxygen Delivery Oxygen Flow Rate 10/09/24 00:00 10/09/24 00:00 10/09/24 01:21 Temperature Pulse Rate 79 77 Respiratory Rate 20 Blood Pressure Pulse Oximetry 96 Oxygen Delivery Nasal Cannula Oxygen Flow Rate 2 10/09/24 01:33 10/09/24 02:00 10/09/24 04:00 Temperature Pulse Rate 79 79 Respiratory Rate 19 Blood Pressure Pulse Oximetry 96 Oxygen Delivery Nasal Cannula Oxygen Flow Rate 2 10/09/24 04:00 10/09/24 04:00 10/09/24 06:00 Temperature 98.7 F Pulse Rate 71 79 70 Respiratory Rate 20 Blood Pressure 118/75 Pulse Oximetry 96 Oxygen Delivery Oxygen Flow Rate 10/09/24 07:18 10/09/24 07:18 10/09/24 07:28 Temperature Pulse Rate 74 73 Respiratory Rate 20 20 Blood Pressure Pulse Oximetry 97 Oxygen Delivery Nasal Cannula Oxygen Flow Rate 2 10/09/24 08:00 10/09/24 08:00 10/09/24 10:00 Temperature 97.9 F Pulse Rate 81 78 81 Respiratory Rate 20 Blood Pressure 126/64 Pulse Oximetry 92 Oxygen Delivery Oxygen Flow Rate 10/09/24 08:00 10/09/24 12:00 10/09/24 12:00 Temperature 98.2 F Pulse Rate 80 Respiratory Rate 20 Blood Pressure 139/68 Pulse Oximetry 95 93 95 Oxygen Delivery Nasal Cannula Nasal Cannula Oxygen Flow Rate 1 1 10/09/24 13:56 10/09/24 13:55 10/09/24 12:00 Temperature Pulse Rate 82 74 Respiratory Rate 20 Blood Pressure Pulse Oximetry 92 Oxygen Delivery Nasal Cannula Oxygen Flow Rate 1 10/09/24 14:00 10/09/24 14:00 10/09/24 15:43 Temperature 98.3 F Pulse Rate 81 88 Respiratory Rate 22 H Blood Pressure 127/60 Pulse Oximetry 91 94 Oxygen Delivery Nasal Cannula Oxygen Flow Rate 2 Intake/Output Intake/Output: Intake & Output 10/06/24 10/07/24 10/08/24 10/09/24 23:59 23:59 23:59 23:59 Intake Total 1480 2040 780 680 Output Total 1350 1075 1350 750 Balance 130 965 -570 -70 Meds/Results Medications: Active Medications Generic Name Dose Route Start Last Admin Trade Name Freq PRN Reason Stop Dose Admin Acetaminophen 650 mg 10/05/24 14:39 Acetaminophen 325 Mg Tablet PO Q6H PRN Pain, Mild Apixaban 10 mg 10/08/24 21:00 10/09/24 08:41 Apixaban 5 Mg Tablet PO 10/15/24 20:59 10 mg Q12HR JILLIAN Administration Apixaban 5 mg 10/15/24 21:00 Apixaban 5 Mg Tablet PO Q12HR JILLIAN Ascorbic Acid 500 mg 10/05/24 17:00 10/09/24 08:41 Ascorbic Acid 500 Mg Tablet PO 500 mg BID JILLIAN Administration Bisacodyl 10 mg 10/05/24 14:39 Bisacodyl 5 Mg Tablet Ec PO BID PRN constipation Bisacodyl 10 mg 10/05/24 18:11 Bisacodyl 10 Mg Suppository RECTAL DAILY PRN Constipation Bupropion HCl 150 mg 10/06/24 09:00 10/09/24 08:41 Bupropion Hcl Xl (24 Hr) 150 Mg Tabcr PO 150 mg DAILY JILLIAN Administration Clopidogrel Bisulfate 75 mg 10/06/24 09:00 10/08/24 08:57 Clopidogrel Bisulfate 75 Mg Tablet PO 75 mg DAILY JILLIAN Administration Dextrose 12.5 gm 10/05/24 14:38 Dextrose 50% 25 Gm/50 Ml Syringe IV PUSH PRN PRN Hypoglycemia Protocol Doxycycline Hyclate 100 mg 10/07/24 21:00 10/09/24 08:41 Doxycycline Hyclate 100 Mg Tablet PO 100 mg Q12HR JILLIAN Administration Fluoxetine HCl 20 mg 10/06/24 09:00 10/09/24 08:41 Fluoxetine Hcl 20 Mg Capsule PO 20 mg DAILY JILLIAN Administration Gabapentin 100 mg 10/05/24 17:00 10/09/24 12:12 Gabapentin 100 Mg Capsule PO 100 mg TID JILLIAN Administration Glucagon 1 mg 10/05/24 14:38 Glucagon For Inj 1 Mg Vial IM PRN PRN Hypoglycemia Protocol Glucose 15 gm 10/05/24 14:38 Glucose Oral Gel 15 Gm Of Glucse In 37.5 Gm Tube PO PRN PRN Hypoglycemia Protocol Guaifenesin 600 mg 10/05/24 21:00 10/09/24 08:41 Guaifenesin 12 Hr 600 Mg Tabcr PO 600 mg Q12HR JILLIAN Administration Meropenem 1 gm in 100 mls @ 200 mls/hr 10/05/24 09:00 10/09/24 09:12 IVPB 10/12/24 01:29 Infused Q8H JILLIAN Infusion Dextrose 1,000 mls @ 100 mls/hr 10/05/24 14:38 Dextrose 5% 1,000 Ml IVPB PRN PRN Hypoglycemia Protocol Insulin Aspart 3 - 6 units 10/05/24 18:00 10/09/24 12:12 Insulin Aspart (*Bkc) 100 Units/Ml SUB-Q Not Given Q6H [facility] Protocol Ipratropium Cosmos 0.5 mg 10/05/24 20:00 10/09/24 13:56 Ipratropium Br 0.02% Inh Soln 0.5 Mg/2.5 Ml Vial INHALATION 0.5 mg Q6HRT JILLIAN Administration Lactulose 20 gm 10/05/24 17:00 10/09/24 12:12 Lactulose 20 Gm/30 Ml Udc PO 20 gm TID JILLIAN Administration Levalbuterol HCl 1.25 mg 10/05/24 20:00 10/09/24 13:56 Levalbuterol Neb 1.25 Mg/3 Ml INHALATION 1.25 mg Q6HRT JILLIAN Administration Levothyroxine Sodium 25 mcg 10/06/24 06:30 10/09/24 06:05 Levothyroxine Sodium 25 Mcg Tablet PO 25 mcg DAILY@0630 JILLIAN Administration Methadone HCl 5 mg 10/05/24 17:00 10/09/24 08:40 Methadone Hcl (*Crx) 5 Mg Tablet PO 5 mg BID JILLIAN Administration Mirtazapine 15 mg 10/05/24 21:00 10/08/24 21:04 Mirtazapine 15 Mg Tablet PO 15 mg HS JILLIAN Administration Multivitamins/Minerals 1 tab 10/06/24 09:00 10/09/24 08:41 Multivitamins /C Lutein (Centrum Silver) Tablet *Bkc PO 1 tab DAILY JILLIAN Administration Mupirocin 1 applic 10/05/24 21:00 10/09/24 08:42 Mupirocin 2% Oint 22 Gm Tube EACH NARE 10/09/24 22:00 1 applic Q12HR JILLIAN Administration Olanzapine 5 mg 10/05/24 17:00 10/09/24 08:41 Olanzapine 5 Mg Tablet PO 5 mg BID JILLIAN Administration Ondansetron HCl 8 mg 10/05/24 14:53 Ondansetron Hcl Odt 4 Mg Tablet PO Q8H PRN Nausea Pantoprazole Sodium 40 mg 10/06/24 09:00 10/09/24 08:41 Pantoprazole 40 Mg Tablet PO 40 mg QAM JILLIAN Administration Potassium Chloride 20 meq 10/05/24 17:00 10/07/24 17:14 Potassium Chloride 20 Meq Er Tablet PO 20 meq BID JILLIAN Administration Prednisone 40 mg 10/09/24 08:00 10/09/24 08:41 Prednisone 20 Mg Tablet PO 10/11/24 07:59 40 mg DAILY@0800 JILLIAN Administration Ropinirole HCl 1 mg 10/05/24 21:00 10/08/24 21:04 Ropinirole Hcl 1 Mg Tablet PO 1 mg HS JILLIAN Administration Sucralfate 1 gm 10/05/24 16:30 10/09/24 12:12 Sucralfate 1 Gm Tablet PO 1 gm TIDAC JILLIAN Administration Tamsulosin HCl 0.4 mg 10/05/24 21:00 10/08/24 21:05 Tamsulosin Hcl 0.4 Mg Capsule PO 0.4 mg HS JILLIAN Administration Radiology Results: ITS Impressions Chest CTA 10/06/24 23:02 IMPRESSION: 1. No pulmonary embolus. Sensitivity is mildly decreased by motion artifact. 2. Bilateral lower lobe pneumonia. 3. Radiation fibrosis involving right upper lobe and superior segment right lower lobe. Chest X-Ray 10/08/24 06:41 Impression: Stable dense airspace opacity right lung apex region, which could reflect loculated effusion, or possibly right upper lobe collapse. Stable right-sided Mediport. Abdomen X-Ray 10/08/24 10:49 Impression: Fecal impaction and constipation. Venous Doppler Study 10/08/24 19:10 IMPRESSION: 1. Deep vein thrombosis involving right femoral vein. ADDENDUM: 10/08/241915 I called this result to Mily Unger. Labs Labs: Laboratory Results - last 24 hr 10/08/24 10/09/24 10/09/24 17:45 00:26 04:22 Sodium 140 Potassium 4.4 Chloride 102 Carbon Dioxide 36 H Anion Gap 2 L BUN 36 H Creatinine 0.70 Estim Creat Clear Calc 75 Estimated GFR > 60 Glucose 171 H POC Capillary Glucose 141 H 140 H Calcium 8.0 L Phosphorus 2.3 L Albumin 2.6 L 10/09/24 12:11 Sodium Potassium Chloride Carbon Dioxide Anion Gap BUN Creatinine Estim Creat Clear Calc Estimated GFR Glucose POC Capillary Glucose 94 Calcium Phosphorus Albumin
[2024-10-09 17:43] LABS: Glucose Point of Care 126 mg/dl (65-105)
[2024-10-09] MEDS: TAMSULOSIN HCL 0.4 MG CAPSULE PO (21:16)
[2024-10-09] MEDS: rOPINIRole HCL 1 MG TABLET PO (21:16)
[2024-10-09] MEDS: MIRTAZAPINE 15 MG TABLET PO (21:16)
[2024-10-09 23:31] LABS: Glucose Point of Care 139 mg/dl (65-105)
[2024-10-10] VITALS (11 sets, daily range): BP systolic 100–130; BP diastolic 62–72; PULSE 69–81; RESP 16–24; TEMP 36.4–37.1; O2SAT 92–97
[2024-10-10] MEDS: MEROPENEM 1 GM/NS 100 ML 1 GM/100 ML BAG IVPB ×3 (01:58→17:40)
[2024-10-10] MEDS: LEVALBUTEROL NEB 1.25 MG/3 ML INHALATION ×4 (02:14→21:47)
[2024-10-10] MEDS: IPRATROPIUM BR 0.02% INH SOLN 0.5 MG/2.5 ML VIAL INHALATION ×4 (02:14→21:47)
[2024-10-10 05:00] LABS: Basophils Percent Auto 0.1 % (0.2-1.2); Hematocrit 36.3 % (42.0-52.0); Hemoglobin 11.7 g/dL (14.0-18.0); Immature Granulocyte Absolute 0.15 K/mm3 (0.00-0.031); Immature Granulocyte Percent A 1.5 % (0-0.5); Immature Platelet Fraction Pct 4.4 % (0.9-11.2); Lymphocytes Absolute Auto 0.56 K/mm3 (0.9-3.2); Lymphocytes Percent Auto 5.6 % (18.3-44.2); Mean Corpuscular HGB Conc 32.2 g/dl (32-36); Mean Platelet Volume 11.3 fl (7.4-10.4); Monocytes Absolute Auto 1.1 K/mm3 (0.1-0.6); Monocytes Percent Auto 10.4 % (2.6-8.5); Neutrophils Absolute Auto 8.3 K/mm3 (1.3-6.7); Neutrophils Percent Auto 82.4 % (45.5-73.1); Platelet Count Result 130 k/mm3 (150-375); Red Blood Count 3.78 M/mm3 (4.6-6.20); Red Cell Distribution Width 14.1 % (11.5-14.5); White Blood Count 10.1 K/mm3 (4.5-10.0)
[2024-10-10 05:13] LABS: Albumin Level 2.7 g/dL (3.5-5.1); Blood Urea Nitrogen 35 mg/dL (9-20); Calcium 8.3 mg/dL (8.4-10.2); Carbon Dioxide > 40 mmol/L (22-30); Chloride 98 mmol/L (98-107); Estimated CRCL calculation 75 ml/min; Estimated Glomerular Filt Rate > 60; Glucose 143 mg/dL (65-110); Magnesium 2.2 mg/dL (1.6-2.3); Phosphorus 2.3 mg/dL (2.5-4.5); Potassium 4.6 mmol/L (3.4-5.0); Sodium 136 mmol/L (137-145)
[2024-10-10] MEDS: LEVOTHYROXINE SODIUM 25 MCG TABLET PO (06:16)
[2024-10-10] MEDS: SUCRALFATE 1 GM TABLET PO ×3 (06:16→17:12)
[2024-10-10] MEDS: POTASSIUM/PHOSPHORUS/SODIUM 1.5 GM PACKET 1 PACKET PO (09:17)
[2024-10-10] MEDS: guaiFENesin 12 HR 600 MG TABCR PO ×2 (09:18→20:03)
[2024-10-10] MEDS: DOXYCYCLINE HYCLATE 100 MG TABLET PO ×2 (09:18→20:04)
[2024-10-10] MEDS: MULTIVITAMINS /C LUTEIN (CENTRUM SILVER) TABLET *BKC 1 TAB PO (09:18)
[2024-10-10] MEDS: methADONE HCL (*CRX) 5 MG TABLET PO ×2 (09:18→17:13)
[2024-10-10] MEDS: predniSONE 20 MG TABLET 40 MG PO (09:18)
[2024-10-10] MEDS: APIXABAN 5 MG TABLET 10 MG PO ×2 (09:18→20:04)
[2024-10-10] MEDS: OLANZapine 5 MG TABLET PO ×2 (09:18→17:13)
[2024-10-10] MEDS: ASCORBIC ACID 500 MG TABLET PO ×2 (09:18→17:13)
[2024-10-10] MEDS: FLUoxetine HCL 20 MG CAPSULE PO (09:18)
[2024-10-10] MEDS: LACTULOSE 20 GM/30 ML UDC PO ×3 (09:19→17:12)
[2024-10-10] MEDS: buPROPion HCL XL (24 HR) 150 MG TABCR PO (09:19)
[2024-10-10] MEDS: PANTOPRAZOLE 40 MG TABLET PO (09:19)
[2024-10-10] MEDS: GABAPENTIN 100 MG CAPSULE PO ×3 (09:19→17:12)
--- NOTE | 2024-10-10 11:04 | PC.NURSE ---
[place] [facility] [place] and this RN gave bedside report to Eren BLANCAS.
--- NOTE | 2024-10-10 15:47 | P.PNIM_ITS ---
Progress Note: A&P Assessment and Plan (1) Acute hypoxemic respiratory failure: Code(s): J96.01 - Acute respiratory failure with hypoxia Status: Acute Assessment and Plan: Patient presented to the ED via EMS wearing non-rebreather. ABG showed 7.33/62/149 on 15L NRBM Hypercarbic respiratory failure and was placed on BiPAP. Patient has a history of ANIA and is non-compliant with CPAP as well as a history of COPD. He also has a history of aspiration pneumonia. Repeat ABG showed improvement but patient was lethargic. Case was discussed with ICU physician and changed to AVAPS mode with benefit. * Repeat gas showed ph 7.407, pCO2 45.5, pO2 75.8, HCO3 28.8. Patient is alert and orientated x 3 * He was transitioned back to his baseline oxygen of 2-3 L NC. Continue Bipap at night and during naps. * Chest x-ray shows a stable right apical consolidation (area of previous cancer) with no changes from prior exam. Findings have been present since 07/2023 * WBC 10.9, lactic normal at 1.2, PCT 0.1, CRP 4.5 * D-dimer positive. CTA was negative for PE but does show bilateral LL PNA. * Quad viral screen negative, MRSA positive * Blood cultures NGTD * started on broad spectrum abx with meropenem, vancomycin, and doxycycline. * Abx simplified to doxy and meropenem. Abx for 7 days. Wean down on bronchodilators. (2) DVT (deep venous thrombosis): Code(s): I82.409 - Acute embolism and thrombosis of unspecified deep veins of unspecified lower extremity Status: Acute Assessment and Plan: D-dimer positive. CTA was negative for PE but does show bilateral LL PNA. Patient found to have a right femoral DVT by doppler. Patient has a hx of AFib and was on Eliquis and ASA at discharge on Jun 2024. Urology note from Jul 2024 showing only ASA. He did have gross heamturia noted at some point Patient only on Plavix at discharge in August 2024 Will proceed with treatment with Eliquis and stop Plavix. Consider filter if he has evidence of bleeding. Consider adding ASA for his CAD if he tolerates being on Eliquis without bleeding. (3) Pneumonia: Qualifiers: Laterality: right Lung location: upper lobe of lung Pneumonia type: due to unspecified organism Qualified Code(s): J18.9 - Pneumonia, unspecified organism Code(s): J18.9 - Pneumonia, unspecified organism Status: Acute Assessment and Plan: Possible aspiration given his hx of dysphagia. Treatment as above (4) COPD (chronic obstructive pulmonary disease): Code(s): J44.9 - Chronic obstructive pulmonary disease, unspecified Status: Acute Assessment and Plan: History of COPD on 2-3 L NC at baseline. He has a history of ANIA, noncompliant with Cpap. * initially on BiPAP but switched to AVAPs mode with improvement * loaded with Solu-Medrol 125 mg IVP once and started on 60 mg IVP every 8 hours * Brocnhodilators and Mucinex * CPT with vest TID and PEP therapy. Not tolerating BiPAP at night * Wean steroids. De-escalate bronchodilators. * Determine if he can have BiPAP at the facility but unsure he will wear this. (5) AMS (altered mental status): Code(s): R41.82 - Altered mental status, unspecified Status: Acute Assessment and Plan: Likely 2/2 to hypercarbic respiratory failure. Patient arrived A&Ox4 per triage note. * confusion from infection? UTI vs pneumonia vs sacral ulcer infection. * Improvement in mental status but still mildly confused at times; might be baseline or related to abx or from not wearing his bipap * Follow (6) Acute UTI: Code(s): N39.0 - Urinary tract infection, site not specified Status: Acute Assessment and Plan: Patient has a chronic corral catheter and history of ESBL. U/A is largely concerning for UTI however, it is not much different from his UA on 08/25 for which the urine culture grew out normal nora. * BCx NGTD. UCx growing ESBL EColi sensitive to Augmentin, Gent, Imipenem and Meropenem. * Continue meropenem for 7 days * Catheter exchanged in the ED (7) CHF (congestive heart failure): Qualifiers: Heart failure chronicity: acute Heart failure type: unspecified Qualified Code(s): I50.9 - Heart failure, unspecified Code(s): I50.9 - Heart failure, unspecified Status: Acute Assessment and Plan: ECHO from 04/09 showed LV systolic fxn normal with EF 55-60%, grade 1 diastolic dysfunction. Mild AV valve stenosis. * BNP 653 * Does not appear to be on any cardiac medications, including diuretics. * He has trace bilateral lower extremity edema and abdomen is slightly distended but likely from adynamic ileus. He sounds coarse with rhonchi. He feels short of breath at rest. * Lasix 40 mg IVP once but no change in UOP. * Renal function stable. Metabolic acidosis noted. * CXR today showing RUL consolidation with XRT fibrosis and mild interval increase in course interstial and airsapce opacities. * Hodl on Lasix given the metabolic acidosis. Check ABG (8) Ileus: Code(s): K56.7 - Ileus, unspecified Status: Acute Assessment and Plan: Abdominal distention with pain to palpation. KUB shows stool filled rectosigmoid, likely adynamic ileus with stomach distention and constipation. * He passed 5 stools on 10/08 and 1 listed 10/09 * Currently no nausea or vomiting and tolerating diet. Exam much improved * Continue bowel regimen with lactulose. Add dulcolax (9) Diabetes mellitus: Qualifiers: Diabetes mellitus type: type 2 Diabetes mellitus detention insulin use: without ferry terminal agent use Diabetes mellitus complication status: without complication Qualified Code(s): E11.9 - Type 2 diabetes mellitus without complications Code(s): E11.9 - Type 2 diabetes mellitus without complications Status: Chronic Assessment and Plan: Hemoglobin A1C 4.5%. The patient's blood glucose was reviewed on 10/10 Glucose well controlled Continue AccuCheks covering with sliding scale. Hypoglycemia protocol available as needed. Continue diabetic diet with level 5 minced/moist with mildly thickened liquids per recent speech therapy note. (10) Sacral decubitus ulcer: Code(s): L89.159 - Pressure ulcer of sacral region, unspecified stage Status: Acute Assessment and Plan: Pressure vs sheer injury to sacrum. Area with blanchable erythema and small areas of open tissue with yellow slough. No foul odor or drainage present. * Q2 turns * Off load bony prominence * topical barrier cream applied * wound consult notes reviewed from previous admission recommending application of clear antifungal barrier cream to bilateral buttocks every shift. 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 Plan DVT prophylaxis - Eliquis Code status - modified Subjective Date/time seen: 10/10/24 15:47 Interval history: 78yo male with aortic stenosis, AFib, BPH, CHF, COPD and DM here for SOB. 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 He also has chronic respiratory failure place on 2L at the CT about 1-2 months ago. He does not wear NIV. Feels better. Slept well. No n/v. Confused and having difficulty providing hx. Exam Narrative: AF 98.0 118/66 76 18 95% 2L Gen - NARD Chest -few basilar crackles o/w clear. Port site right upper chest CV - RRR S1/S2 Abd - Soft, NT/ND, +BS - Corral secured draining clear yellow urine Ext - No pedal edema Psych - Nml mood and affect. Skin - Warm and dry. Objective Data Vital Signs Vital Signs: Vital Signs - 24 hr 10/09/24 16:00 10/09/24 16:00 10/09/24 18:00 Temperature Pulse Rate 88 88 Respiratory Rate Blood Pressure Pulse Oximetry 94 Oxygen Delivery Nasal Cannula Oxygen Flow Rate 1 10/09/24 18:32 10/09/24 18:51 10/09/24 19:30 Temperature 99.3 F Pulse Rate 90 Respiratory Rate 22 H Blood Pressure 136/78 Pulse Oximetry 96 96 94 Oxygen Delivery Nasal Cannula High Flow Nasal Cannula Oxygen Flow Rate 3 3 10/09/24 19:30 10/09/24 19:39 10/10/24 00:00 Temperature 98.8 F Pulse Rate 97 90 81 Respiratory Rate 16 16 18 Blood Pressure 130/72 Pulse Oximetry 97 Oxygen Delivery Oxygen Flow Rate 10/10/24 02:14 10/10/24 02:28 10/09/24 20:00 Temperature Pulse Rate 72 75 Respiratory Rate 16 16 Blood Pressure Pulse Oximetry 97 Oxygen Delivery High Flow Nasal Cannula Oxygen Flow Rate 3 10/10/24 06:53 10/10/24 08:00 10/10/24 08:00 Temperature 98.0 F Pulse Rate 73 78 Respiratory Rate 18 24 H Blood Pressure 118/66 Pulse Oximetry 95 95 Oxygen Delivery Nasal Cannula Oxygen Flow Rate 2 10/10/24 14:32 10/10/24 14:32 10/10/24 14:47 Temperature Pulse Rate 77 76 Respiratory Rate 18 18 Blood Pressure Pulse Oximetry 95 Oxygen Delivery Nasal Cannula Oxygen Flow Rate 2 Intake/Output Intake/Output: Intake & Output 10/07/24 10/08/24 10/09/24 10/10/24 23:59 23:59 23:59 23:59 Intake Total 2040 780 1020 200 Output Total 1075 1350 1650 1000 Balance 965 -570 -630 -800 Meds/Results Medications: Active Medications Generic Name Dose Route Start Last Admin Trade Name Freq PRN Reason Stop Dose Admin Acetaminophen 650 mg 10/05/24 14:39 Acetaminophen 325 Mg Tablet PO Q6H PRN Pain, Mild Apixaban 10 mg 10/08/24 21:00 10/10/24 09:18 Apixaban 5 Mg Tablet PO 10/15/24 20:59 10 mg Q12HR JILLIAN Administration Apixaban 5 mg 10/15/24 21:00 Apixaban 5 Mg Tablet PO Q12HR JILLIAN Ascorbic Acid 500 mg 10/05/24 17:00 10/10/24 09:18 Ascorbic Acid 500 Mg Tablet PO 500 mg BID JILLIAN Administration Bisacodyl 10 mg 10/05/24 14:39 Bisacodyl 5 Mg Tablet Ec PO BID PRN constipation Bisacodyl 10 mg 10/05/24 18:11 Bisacodyl 10 Mg Suppository RECTAL DAILY PRN Constipation Bupropion HCl 150 mg 10/06/24 09:00 10/10/24 09:19 Bupropion Hcl Xl (24 Hr) 150 Mg Tabcr PO 150 mg DAILY JILLIAN Administration Dextrose 12.5 gm 10/05/24 14:38 Dextrose 50% 25 Gm/50 Ml Syringe IV PUSH PRN PRN Hypoglycemia Protocol Doxycycline Hyclate 100 mg 10/07/24 21:00 10/10/24 09:18 Doxycycline Hyclate 100 Mg Tablet PO 100 mg Q12HR JILLIAN Administration Fluoxetine HCl 20 mg 10/06/24 09:00 10/10/24 09:18 Fluoxetine Hcl 20 Mg Capsule PO 20 mg DAILY JILLIAN Administration Gabapentin 100 mg 10/05/24 17:00 10/10/24 12:11 Gabapentin 100 Mg Capsule PO 100 mg TID JILLIAN Administration Glucagon 1 mg 10/05/24 14:38 Glucagon For Inj 1 Mg Vial IM PRN PRN Hypoglycemia Protocol Glucose 15 gm 10/05/24 14:38 Glucose Oral Gel 15 Gm Of Glucse In 37.5 Gm Tube PO PRN PRN Hypoglycemia Protocol Guaifenesin 600 mg 10/05/24 21:00 10/10/24 09:18 Guaifenesin 12 Hr 600 Mg Tabcr PO 600 mg Q12HR JILLIAN Administration Meropenem 1 gm in 100 mls @ 200 mls/hr 10/05/24 09:00 10/10/24 09:50 IVPB 10/12/24 01:29 Infused Q8H JILLIAN Infusion Dextrose 1,000 mls @ 100 mls/hr 10/05/24 14:38 Dextrose 5% 1,000 Ml IVPB PRN PRN Hypoglycemia Protocol Insulin Aspart 3 - 6 units 10/05/24 18:00 10/10/24 11:35 Insulin Aspart (*Bkc) 100 Units/Ml SUB-Q Not Given Q6H [facility] Protocol Ipratropium [place] 0.5 mg 10/05/24 20:00 10/10/24 14:31 Ipratropium Br 0.02% Inh Soln 0.5 Mg/2.5 Ml Vial INHALATION 0.5 mg Q6HRT JILLIAN Administration Lactulose 20 gm 10/05/24 17:00 10/10/24 12:11 Lactulose 20 Gm/30 Ml Udc PO 20 gm TID JILLIAN Administration Levalbuterol HCl 1.25 mg 10/05/24 20:00 10/10/24 14:31 Levalbuterol Neb 1.25 Mg/3 Ml INHALATION 1.25 mg Q6HRT JILLIAN Administration Levothyroxine Sodium 25 mcg 10/06/24 06:30 10/10/24 06:16 Levothyroxine Sodium 25 Mcg Tablet PO 25 mcg DAILY@0630 JILLIAN Administration Methadone HCl 5 mg 10/05/24 17:00 10/10/24 09:18 Methadone Hcl (*Crx) 5 Mg Tablet PO 5 mg BID JILLIAN Administration Mirtazapine 15 mg 10/05/24 21:00 10/09/24 21:16 Mirtazapine 15 Mg Tablet PO 15 mg HS JILLIAN Administration Multivitamins/Minerals 1 tab 11/19/24 09:00 10/10/24 09:18 Multivitamins /C Lutein (Centrum Silver) Tablet *Bkc PO 1 tab DAILY JILLINA Administration Olanzapine 5 mg 10/05/24 17:00 10/10/24 09:18 Olanzapine 5 Mg Tablet PO 5 mg BID JILLIAN Administration Ondansetron HCl 8 mg 10/05/24 14:53 Ondansetron Hcl Odt 4 Mg Tablet PO Q8H PRN Nausea Pantoprazole Sodium 40 mg 10/06/24 09:00 10/10/24 09:19 Pantoprazole 40 Mg Tablet PO 40 mg QAM JILLIAN Administration Potassium Chloride 20 meq 10/05/24 17:00 10/07/24 17:14 Potassium Chloride 20 Meq Er Tablet PO 20 meq BID JILLIAN Administration Prednisone 40 mg 10/09/24 08:00 10/10/24 09:18 Prednisone 20 Mg Tablet PO 10/11/24 07:59 40 mg DAILY@0800 JILLIAN Administration Ropinirole HCl 1 mg 10/05/24 21:00 10/09/24 21:16 Ropinirole Hcl 1 Mg Tablet PO 1 mg HS JILLIAN Administration Sucralfate 1 gm 10/05/24 16:30 10/10/24 10:55 Sucralfate 1 Gm Tablet PO 1 gm TIDAC JILLIAN Administration Tamsulosin HCl 0.4 mg 10/05/24 21:00 10/09/24 21:16 Tamsulosin Hcl 0.4 Mg Capsule PO 0.4 mg HS JILLIAN Administration Radiology Results: ITS Impressions Chest CTA 10/06/24 23:02 IMPRESSION: 1. No pulmonary embolus. Sensitivity is mildly decreased by motion artifact. 2. Bilateral lower lobe pneumonia. 3. Radiation fibrosis involving right upper lobe and superior segment right lower lobe. Abdomen X-Ray 10/08/24 10:49 Impression: Fecal impaction and constipation. Venous Doppler Study 10/08/24 19:10 IMPRESSION: 1. Deep vein thrombosis involving right femoral vein. ADDENDUM: 10/08/241915 I called this result to Mily Unger. Chest X-Ray 10/10/24 08:39 IMPRESSION: 1. Unchanged consolidation in the right upper lobe consistent with pneumonia. 2. Mild interval increase in coarse interstitial and mild airspace opacities in bilateral mid and lower lung zones which could represent atelectasis, mild pulmonary edema, additional pneumonia or some combination thereof. 3. Volume loss and architectural distortion right lung likely related to radiation treatment for reported prior lung cancer. 4. Cardiomegaly. Labs Labs: Laboratory Results - last 24 hr 10/09/24 10/09/24 10/10/24 17:21 23:27 04:10 WBC 10.1 H RBC 3.78 L Hgb 11.7 L Hct 36.3 L MCV 96.0 MCH 31.0 MCHC 32.2 RDW 14.1 Plt Count 130 L MPV 11.3 H Immature Gran % (Auto) 1.5 H Neut % (Auto) 82.4 H Lymph % (Auto) 5.6 L [place] % (Auto) 10.4 H Eos % (Auto) 0.0 Baso % (Auto) 0.1 L Lymph # (Auto) 0.56 L [place] # (Auto) 1.1 H Eos # (Auto) 0.0 Baso # (Auto) 0.0 Abs Immat Gran (auto) 0.15 H Absolute Neuts (auto) 8.3 H Absolute Nucleated RBC 0.000 Nucleated RBC % 0.0 % Immature Plt Fraction 4.4 Sodium 136 L Potassium 4.6 Chloride 98 Carbon Dioxide > 40 H Anion Gap BUN 35 H Creatinine 0.70 Estim Creat Clear Calc 75 Estimated GFR > 60 Glucose 143 H POC Capillary Glucose 126 H 139 H Calcium 8.3 L Phosphorus 2.3 L Magnesium 2.2 Albumin 2.7 L
[2024-10-10 16:31] LABS: Glucose Point of Care 209 mg/dl (65-105)
[2024-10-10] MEDS: INSULIN ASPART (*BKC) 100 UNITS/ML SUB-Q (17:13)
[2024-10-10] MEDS: BISACODYL 5 MG TABLET EC PO (17:13)
[2024-10-10 17:49] LABS: Alveolar/Arterial O2 Gradient 74.3 mmHg; Base Excess ABG 8.9 mEq/l (+/-2.0); Fractional Inspired Oxygen 28 %; HCO3 ABG 34.2 mEq/l (22.0-26.0); Oxygen Content ABG 17.1 %vol (16.0-22.0); Oxygen Saturation ABG 93.9 % (95.0-100.0); Oxyhemoglobin 92.5 % THb (90.0-100.0); PCO2 ABG 49.7 mmHg (35.0-45.0); PO2 ABG 66.7 mmHg (80.0-100.0); PO2 FiO2 Ratio Arterial Blood 2.38 %; Total Hemoglobin 13.1 g/dL (12.0-18.0); pH ABG 7.456 (7.350-7.450)
[2024-10-10 17:50] LABS: Device NASAL CANNULA; Modified Allen's Test Pass; Site Drawn LEFT RADIAL
[2024-10-10] MEDS: MIRTAZAPINE 15 MG TABLET PO (20:03)
[2024-10-10] MEDS: rOPINIRole HCL 1 MG TABLET PO (20:04)
[2024-10-10] MEDS: TAMSULOSIN HCL 0.4 MG CAPSULE PO (20:04)
[2024-10-11] VITALS (10 sets, daily range): BP systolic 119–140; BP diastolic 59–80; PULSE 73–85; RESP 18–22; TEMP 36.4–37.2; O2SAT 93–96
[2024-10-11] MEDS: MEROPENEM 1 GM/NS 100 ML 1 GM/100 ML BAG IVPB ×3 (01:13→17:56)
[2024-10-11] MEDS: SUCRALFATE 1 GM TABLET PO ×3 (06:18→17:50)
[2024-10-11] MEDS: LEVOTHYROXINE SODIUM 25 MCG TABLET PO (06:18)
[2024-10-11 06:24] LABS: Hematocrit 37.4 % (42.0-52.0); Hemoglobin 11.8 g/dL (14.0-18.0); Mean Corpuscular HGB Conc 31.6 g/dl (32-36); Mean Corpuscular Hemoglobin 30.2 pg (26-34); Mean Corpuscular Volume 95.7 fl (80-100); Mean Platelet Volume 11.3 fl (7.4-10.4); Platelet Count Result 142 k/mm3 (150-375); Red Blood Count 3.91 M/mm3 (4.6-6.20); White Blood Count 10.4 K/mm3 (4.5-10.0)
[2024-10-11 06:28] LABS: Glucose Point of Care 94 mg/dl (65-105)
[2024-10-11 06:35] LABS: Anion Gap 0 mmol/L (4-12); Blood Urea Nitrogen 37 mg/dL (9-20); Calcium 8.9 mg/dL (8.4-10.2); Carbon Dioxide 38 mmol/L (22-30); Chloride 98 mmol/L (98-107); Estimated CRCL calculation 86 ml/min; Estimated Glomerular Filt Rate > 60; Glucose 86 mg/dL (65-110); Phosphorus 2.9 mg/dL (2.5-4.5); Potassium 4.4 mmol/L (3.4-5.0); Sodium 136 mmol/L (137-145)
[2024-10-11] MEDS: IPRATROPIUM BR 0.02% INH SOLN 0.5 MG/2.5 ML VIAL INHALATION ×3 (07:44→20:24)
[2024-10-11] MEDS: LEVALBUTEROL NEB 1.25 MG/3 ML INHALATION ×3 (07:44→20:24)
[2024-10-11 08:46] LABS: Glucose Point of Care 155 mg/dl (65-105)
[2024-10-11 08:55] LABS: Glucose Point of Care 84 mg/dl (65-105)
[2024-10-11] MEDS: GABAPENTIN 100 MG CAPSULE PO ×3 (09:49→17:50)
[2024-10-11] MEDS: MULTIVITAMINS /C LUTEIN (CENTRUM SILVER) TABLET *BKC 1 TAB PO (09:49)
[2024-10-11] MEDS: guaiFENesin 12 HR 600 MG TABCR PO ×2 (09:49→20:31)
[2024-10-11] MEDS: OLANZapine 5 MG TABLET PO ×2 (09:49→17:50)
[2024-10-11] MEDS: buPROPion HCL XL (24 HR) 150 MG TABCR PO (09:49)
[2024-10-11] MEDS: LACTULOSE 20 GM/30 ML UDC PO ×3 (09:49→17:56)
[2024-10-11] MEDS: BISACODYL 5 MG TABLET EC PO (09:49)
[2024-10-11] MEDS: ASCORBIC ACID 500 MG TABLET PO ×2 (09:49→17:50)
[2024-10-11] MEDS: DOXYCYCLINE HYCLATE 100 MG TABLET PO ×2 (09:50→20:31)
[2024-10-11] MEDS: methADONE HCL (*CRX) 5 MG TABLET PO ×2 (09:50→17:50)
[2024-10-11] MEDS: FLUoxetine HCL 20 MG CAPSULE PO (09:50)
[2024-10-11] MEDS: PANTOPRAZOLE 40 MG TABLET PO (09:50)
[2024-10-11] MEDS: APIXABAN 5 MG TABLET 10 MG PO ×2 (09:52→20:31)
[2024-10-11 11:23] LABS: Glucose Point of Care 105 mg/dl (65-105)
--- NOTE | 2024-10-11 11:30 | PC.NURSE ---
RN assumed care
--- NOTE | 2024-10-11 11:59 | P.PNIM_ITS ---
Progress Note: A&P Assessment and Plan (1) Acute hypoxemic respiratory failure: Code(s): J96.01 - Acute respiratory failure with hypoxia Status: Acute Assessment and Plan: Patient presented to the ED via EMS wearing non-rebreather. ABG showed 7.33/62/149 on 15L NRBM Hypercarbic respiratory failure and was placed on BiPAP. Patient has a history of ANIA and is non-compliant with CPAP as well as a history of COPD. He also has a history of aspiration pneumonia. Repeat ABG showed improvement but patient was lethargic. Case was discussed with ICU physician and changed to AVAPS mode with benefit. * Repeat gas showed ph 7.407, pCO2 45.5, pO2 75.8, HCO3 28.8. Patient is alert and orientated x 3 * He was transitioned back to his baseline oxygen of 2-3 L NC. Continue Bipap at night and during naps. * Chest x-ray shows a stable right apical consolidation (area of previous cancer) with no changes from prior exam. Findings have been present since 07/2023 * WBC 10.9, lactic normal at 1.2, PCT 0.1, CRP 4.5 * D-dimer positive. CTA was negative for PE but does show bilateral LL PNA. * Quad viral screen negative, MRSA positive * Blood cultures NGTD * started on broad spectrum abx with meropenem, vancomycin, and doxycycline. * Abx simplified to doxy and meropenem. Abx for 7 days. Wean down on bronchodilators. * stable- continue regimen (2) DVT (deep venous thrombosis): Code(s): I82.409 - Acute embolism and thrombosis of unspecified deep veins of unspecified lower extremity Status: Acute Assessment and Plan: D-dimer positive. CTA was negative for PE but does show bilateral LL PNA. Patient found to have a right femoral DVT by doppler. Patient has a hx of AFib and was on Eliquis and ASA at discharge on Jun 2024. Urology note from Jul 2024 showing only ASA. He did have gross heamturia noted at some point Patient only on Plavix at discharge in August 2024 Will proceed with treatment with Eliquis and stop Plavix. Consider filter if he has evidence of bleeding. Consider adding ASA for his CAD if he tolerates being on Eliquis without bleeding. no s/s of bleeding. (3) Pneumonia: Qualifiers: Laterality: right Lung location: upper lobe of lung Pneumonia type: due to unspecified organism Qualified Code(s): J18.9 - Pneumonia, unspecified organism Code(s): J18.9 - Pneumonia, unspecified organism Status: Acute Assessment and Plan: Possible aspiration given his hx of dysphagia. Treatment as above (4) COPD (chronic obstructive pulmonary disease): Code(s): J44.9 - Chronic obstructive pulmonary disease, unspecified Status: Acute Assessment and Plan: History of COPD on 2-3 L NC at baseline. He has a history of ANIA, noncompliant with Cpap. * initially on BiPAP but switched to AVAPs mode with improvement * loaded with Solu-Medrol 125 mg IVP once and started on 60 mg IVP every 8 hours * Brocnhodilators and Mucinex * CPT with vest TID and PEP therapy. Not tolerating BiPAP at night * Wean steroids. De-escalate bronchodilators. * Determine if he can have BiPAP at the facility but he will not wer it. Education completed. Pt is encouraged to wear it. (5) AMS (altered mental status): Code(s): R41.82 - Altered mental status, unspecified Status: Acute Assessment and Plan: Likely 2/2 to hypercarbic respiratory failure. Patient arrived A&Ox4 per triage note. * confusion from infection? UTI vs pneumonia vs sacral ulcer infection. * Improvement in mental status but still mildly confused at times; might be baseline or related to abx or from not wearing his bipap * Follow (6) Acute UTI: Code(s): N39.0 - Urinary tract infection, site not specified Status: Acute Assessment and Plan: Patient has a chronic corral catheter and history of ESBL. U/A is largely concerning for UTI however, it is not much different from his UA on 08/25 for which the urine culture grew out normal nora. * BCx NGTD. UCx growing ESBL EColi sensitive to Augmentin, Gent, Imipenem and Meropenem. * Continue meropenem for 7 days * Catheter exchanged in the ED (7) CHF (congestive heart failure): Qualifiers: Heart failure chronicity: acute Heart failure type: unspecified Qualified Code(s): I50.9 - Heart failure, unspecified Code(s): I50.9 - Heart failure, unspecified Status: Acute Assessment and Plan: ECHO from 04/09 showed LV systolic fxn normal with EF 55-60%, grade 1 diastolic dysfunction. Mild AV valve stenosis. * BNP 653 * Does not appear to be on any cardiac medications, including diuretics. * He has trace bilateral lower extremity edema and abdomen is slightly distended but likely from adynamic ileus. He sounds coarse with rhonchi. He feels short of breath at rest. * Lasix 40 mg IVP once but no change in UOP. * Renal function stable. Metabolic acidosis noted. * CXR today showing RUL consolidation with XRT fibrosis and mild interval increase in course interstial and airsapce opacities. * Hodl on Lasix given the metabolic acidosis. Check ABG * weight stable. i/o reviewed (8) Ileus: Code(s): K56.7 - Ileus, unspecified Status: Acute Assessment and Plan: Abdominal distention with pain to palpation. KUB shows stool filled rectosigmoid, likely adynamic ileus with stomach distention and constipation. * He passed 5 stools on 10/08 and 1 listed 10/09 * Currently no nausea or vomiting and tolerating diet. Exam much improved * Continue bowel regimen with lactulose. Add dulcolax abd is soft and he is passing gas- continue regimen and monitor (9) Diabetes mellitus: Qualifiers: Diabetes mellitus type: type 2 Diabetes mellitus shelter insulin use: without cinetechnician use Diabetes mellitus complication status: without complication Qualified Code(s): E11.9 - Type 2 diabetes mellitus without complications Code(s): E11.9 - Type 2 diabetes mellitus without complications Status: Chronic Assessment and Plan: Hemoglobin A1C 4.5%. The patient's blood glucose was reviewed on 10/10 Glucose well controlled Continue AccuCheks covering with sliding scale. Hypoglycemia protocol available as needed. Continue diabetic diet with level 5 minced/moist with mildly thickened liquids per recent speech therapy note. (10) Sacral decubitus ulcer: Code(s): L89.159 - Pressure ulcer of sacral region, unspecified stage Status: Acute Assessment and Plan: Pressure vs sheer injury to sacrum. Area with blanchable erythema and small areas of open tissue with yellow slough. No foul odor or drainage present. * Q2 turns * Off load bony prominence * topical barrier cream applied * wound consult notes reviewed from previous admission recommending application of clear antifungal barrier cream to bilateral buttocks every shift. 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 Plan DVT prophylaxis - Eliquis Code status - modified Time Spent With Patient Time with patient: Greater than 35 minutes Subjective Date/time seen: 10/11/24 11:59 Interval history: 78yo male with aortic stenosis, AFib, BPH, CHF, COPD and DM here for SOB. He is a [place] resident. He also has chronic respiratory failure place on 2L at the [place] about 1-2 months ago. He does not wear NIV as he does not want to. Pt is seen and examined this am. Reports no pain, no n/v/d. Passing gas. Appropriate, alert and answers questions. Review of Systems Review of Systems: All systems reviewed & are unremarkable except as noted in HPI and below Exam Narrative: Gen - NARD Chest Port site right upper chest CV - RRR S1/S2 Abd - Soft, NT/ND, +BS - Corral secured draining clear yellow urine Ext - No pedal edema Psych - Nml mood and affect. Skin - Warm and dry. Const: General: comfortable Objective Data Vital Signs Vital Signs: Vital Signs - 24 hr 10/10/24 14:32 10/10/24 14:32 10/10/24 14:47 Temperature Pulse Rate 77 76 Respiratory Rate 18 18 Blood Pressure Pulse Oximetry 95 Oxygen Delivery Nasal Cannula Oxygen Flow Rate 2 Fraction of Inspired Oxygen 10/10/24 16:20 10/10/24 21:41 10/10/24 21:51 Temperature 97.6 F 97.6 F Pulse Rate 78 69 74 Respiratory Rate 20 22 H 18 Blood Pressure 130/66 100/62 Pulse Oximetry 93 92 Oxygen Delivery Oxygen Flow Rate Fraction of Inspired Oxygen 10/10/24 21:51 10/10/24 21:59 10/11/24 06:16 Temperature 97.6 F Pulse Rate 75 76 Respiratory Rate 18 18 Blood Pressure 140/80 Pulse Oximetry 94 95 Oxygen Delivery Nasal Cannula Oxygen Flow Rate 2 Fraction of Inspired Oxygen 10/11/24 07:45 10/11/24 07:45 10/11/24 07:57 Temperature Pulse Rate 77 74 Respiratory Rate 20 20 Blood Pressure Pulse Oximetry 96 Oxygen Delivery Nasal Cannula Oxygen Flow Rate 2 Fraction of Inspired Oxygen 10/11/24 09:40 Temperature Pulse Rate Respiratory Rate Blood Pressure Pulse Oximetry 96 Oxygen Delivery Nasal Cannula Oxygen Flow Rate 2 Fraction of Inspired Oxygen Intake/Output Intake/Output: Intake & Output 10/08/24 10/09/24 10/10/24 10/11/24 23:59 23:59 23:59 23:59 Intake Total 780 1020 700 320 Output Total 1350 1650 1700 500 Balance -570 -630 -1000 -180 Meds/Results Medications: Active Medications Generic Name Dose Route Start Last Admin Trade Name Freq PRN Reason Stop Dose Admin Acetaminophen 650 mg 10/05/24 14:39 Acetaminophen 325 Mg Tablet PO Q6H PRN Pain, Mild Apixaban 10 mg 10/08/24 21:00 10/11/24 09:52 Apixaban 5 Mg Tablet PO 10/15/24 20:59 10 mg Q12HR JILLIAN Administration Apixaban 5 mg 10/15/24 21:00 Apixaban 5 Mg Tablet PO Q12HR JILLIAN Ascorbic Acid 500 mg 10/05/24 17:00 10/11/24 09:49 Ascorbic Acid 500 Mg Tablet PO 500 mg BID JILLIAN Administration Bisacodyl 10 mg 10/05/24 14:39 Bisacodyl 5 Mg Tablet Ec PO BID PRN constipation Bisacodyl 10 mg 10/05/24 18:11 Bisacodyl 10 Mg Suppository RECTAL DAILY PRN Constipation Bisacodyl 5 mg 10/11/24 09:00 10/11/24 09:49 Bisacodyl 5 Mg Tablet Ec PO 5 mg QAM JILLIAN Administration Bupropion HCl 150 mg 10/06/24 09:00 10/11/24 09:49 Bupropion Hcl Xl (24 Hr) 150 Mg Tabcr PO 150 mg DAILY JILLIAN Administration Dextrose 12.5 gm 10/05/24 14:38 Dextrose 50% 25 Gm/50 Ml Syringe IV PUSH PRN PRN Hypoglycemia Protocol Doxycycline Hyclate 100 mg 10/07/24 21:00 10/11/24 09:50 Doxycycline Hyclate 100 Mg Tablet PO 100 mg Q12HR JILLIAN Administration Fluoxetine HCl 20 mg 10/06/24 09:00 10/11/24 09:50 Fluoxetine Hcl 20 Mg Capsule PO 20 mg DAILY JILLIAN Administration Gabapentin 100 mg 10/05/24 17:00 10/11/24 09:49 Gabapentin 100 Mg Capsule PO 100 mg TID JILLIAN Administration Glucagon 1 mg 10/05/24 14:38 Glucagon For Inj 1 Mg Vial IM PRN PRN Hypoglycemia Protocol Glucose 15 gm 10/05/24 14:38 Glucose Oral Gel 15 Gm Of Glucse In 37.5 Gm Tube PO PRN PRN Hypoglycemia Protocol Guaifenesin 600 mg 10/05/24 21:00 10/11/24 09:49 Guaifenesin 12 Hr 600 Mg Tabcr PO 600 mg Q12HR COUNT INCLUDES THE [facility] Administration Meropenem 1 gm in 100 mls @ 200 mls/hr 10/05/24 09:00 10/11/24 10:20 IVPB 10/12/24 01:29 Infused Q8H JILLIAN Infusion Dextrose 1,000 mls @ 100 mls/hr 10/05/24 14:38 Dextrose 5% 1,000 Ml IVPB PRN PRN Hypoglycemia Protocol Insulin Aspart 3 - 6 units 10/05/24 18:00 10/11/24 06:18 Insulin Aspart (*Bkc) 100 Units/Ml SUB-Q Not Given Q6H COUNT INCLUDES THE [facility] Protocol Ipratropium [place] 0.5 mg 10/10/24 20:00 10/11/24 07:44 Ipratropium Br 0.02% Inh Soln 0.5 Mg/2.5 Ml Vial INHALATION 0.5 mg [id number] COUNT INCLUDES THE [facility] Administration Lactulose 20 gm 10/05/24 17:00 10/11/24 09:49 Lactulose 20 Gm/30 Ml Udc PO 20 gm TID JILLIAN Administration Levalbuterol HCl 1.25 mg 10/10/24 20:00 10/11/24 07:44 Levalbuterol Neb 1.25 Mg/3 Ml INHALATION 1.25 mg [id number] COUNT INCLUDES THE [facility] Administration Levothyroxine Sodium 25 mcg 10/06/24 06:30 10/11/24 06:18 Levothyroxine Sodium 25 Mcg Tablet PO 25 mcg DAILY@0630 COUNT INCLUDES THE [facility] Administration Methadone HCl 5 mg 10/05/24 17:00 10/11/24 09:50 Methadone Hcl (*Crx) 5 Mg Tablet PO 5 mg BID JILLIAN Administration Mirtazapine 15 mg 10/05/24 21:00 10/10/24 20:03 Mirtazapine 15 Mg Tablet PO 15 mg HS JILLIAN Administration Multivitamins/Minerals 1 tab 10/06/24 09:00 10/11/24 09:49 Multivitamins /C Lutein (Centrum Silver) Tablet *Bkc PO 1 tab DAILY JILLIAN Administration Olanzapine 5 mg 10/05/24 17:00 10/11/24 09:49 Olanzapine 5 Mg Tablet PO 5 mg BID JILLIAN Administration Ondansetron HCl 8 mg 10/05/24 14:53 Ondansetron Hcl Odt 4 Mg Tablet PO Q8H PRN Nausea Pantoprazole Sodium 40 mg 10/06/24 09:00 10/11/24 09:50 Pantoprazole 40 Mg Tablet PO 40 mg QAM JILLIAN Administration Potassium Chloride 20 meq 10/05/24 17:00 10/07/24 17:14 Potassium Chloride 20 Meq Er Tablet PO 20 meq BID JILLIAN Administration Ropinirole HCl 1 mg 10/05/24 21:00 10/10/24 20:04 Ropinirole Hcl 1 Mg Tablet PO 1 mg HS JILLIAN Administration Sucralfate 1 gm 10/05/24 16:30 10/11/24 06:18 Sucralfate 1 Gm Tablet PO 1 gm TIDAC JILLIAN Administration Tamsulosin HCl 0.4 mg 10/05/24 21:00 10/10/24 20:04 Tamsulosin Hcl 0.4 Mg Capsule PO 0.4 mg HS JILLIAN Administration Radiology Results: ITS Impressions Chest CTA 10/06/24 23:02 IMPRESSION: 1. No pulmonary embolus. Sensitivity is mildly decreased by motion artifact. 2. Bilateral lower lobe pneumonia. 3. Radiation fibrosis involving right upper lobe and superior segment right lower lobe. Abdomen X-Ray 10/08/24 10:49 Impression: Fecal impaction and constipation. Venous Doppler Study 10/08/24 19:10 IMPRESSION: 1. Deep vein thrombosis involving right femoral vein. ADDENDUM: 10/08/241915 I called this result to Mily Unger. Chest X-Ray 10/10/24 08:39 IMPRESSION: 1. Unchanged consolidation in the right upper lobe consistent with pneumonia. 2. Mild interval increase in coarse interstitial and mild airspace opacities in bilateral mid and lower lung zones which could represent atelectasis, mild pulmonary edema, additional pneumonia or some combination thereof. 3. Volume loss and architectural distortion right lung likely related to radiation treatment for reported prior lung cancer. 4. Cardiomegaly. Labs Labs: Laboratory Results - last 24 hr 10/10/24 10/10/24 10/10/24 16:16 17:36 23:32 WBC RBC Hgb Hct MCV MCH MCHC RDW Plt Count MPV Puncture Site Left radial ABG pH 7.456 H ABG pCO2 49.7 H ABG pO2 66.7 L ABG PO2/FiO2 Ratio 2.38 ABG HCO3 34.2 H ABG O2 Saturation 93.9 L ABG O2 Content 17.1 ABG Base Excess 8.9 A-a Gradient 74.3 Oxyhemoglobin 92.5 Total Hemoglobin 13.1 O2 Delivery Device Nasal cannula O2 Liters/Min 2.0 FiO2 28 Sodium Potassium Chloride Carbon Dioxide Anion Gap BUN Creatinine Estim Creat Clear Calc Estimated GFR Glucose POC Capillary Glucose 209 H 155 H Calcium Phosphorus 10/11/24 10/11/24 10/11/24 06:06 06:16 08:51 WBC 10.4 H RBC 3.91 L Hgb 11.8 L Hct 37.4 L MCV 95.7 MCH 30.2 MCHC 31.6 L RDW 14.0 Plt Count 142 L MPV 11.3 H Puncture Site ABG pH ABG pCO2 ABG pO2 ABG PO2/FiO2 Ratio ABG HCO3 ABG O2 Saturation ABG O2 Content ABG Base Excess A-a Gradient Oxyhemoglobin Total Hemoglobin O2 Delivery Device O2 Liters/Min FiO2 Sodium 136 L Potassium 4.4 Chloride 98 Carbon Dioxide 38 H Anion Gap 0 L BUN 37 H Creatinine 0.60 L Estim Creat Clear Calc 86 Estimated GFR > 60 Glucose 86 POC Capillary Glucose 94 84 Calcium 8.9 Phosphorus 2.9 10/11/24 11:18 WBC RBC Hgb Hct MCV MCH MCHC RDW Plt Count MPV Puncture Site ABG pH ABG pCO2 ABG pO2 ABG PO2/FiO2 Ratio ABG HCO3 ABG O2 Saturation ABG O2 Content ABG Base Excess A-a Gradient Oxyhemoglobin Total Hemoglobin O2 Delivery Device O2 Liters/Min FiO2 Sodium Potassium Chloride Carbon Dioxide Anion Gap BUN Creatinine Estim Creat Clear Calc Estimated GFR Glucose POC Capillary Glucose 105 Calcium Phosphorus Quality VTE Prophylaxis VTE prophylaxis: mechanical ordered and pharmacologic ordered
[2024-10-11 16:32] LABS: Glucose Point of Care 88 mg/dl (65-105)
[2024-10-11] MEDS: rOPINIRole HCL 1 MG TABLET PO (20:31)
[2024-10-11] MEDS: MIRTAZAPINE 15 MG TABLET PO (20:31)
[2024-10-11] MEDS: TAMSULOSIN HCL 0.4 MG CAPSULE PO (20:31)
[2024-10-11] MEDS: ACETAMINOPHEN 325 MG TABLET 650 MG PO (21:03)
[2024-10-12] VITALS (19 sets, daily range): BP systolic 72–104; BP diastolic 48–64; PULSE 63–86; RESP 16–22; TEMP 36.2–36.6; O2SAT 92–100
[2024-10-12] MEDS: MEROPENEM 1 GM/NS 100 ML 1 GM/100 ML BAG IVPB (00:09)
[2024-10-12 00:32] LABS: Glucose Point of Care 118 mg/dl (65-105)
[2024-10-12] MEDS: LEVOTHYROXINE SODIUM 25 MCG TABLET PO (06:29)
[2024-10-12] MEDS: SUCRALFATE 1 GM TABLET PO ×3 (06:29→17:18)
[2024-10-12 07:42] LABS: Glucose Point of Care 91 mg/dl (65-105)
[2024-10-12] MEDS: IPRATROPIUM BR 0.02% INH SOLN 0.5 MG/2.5 ML VIAL INHALATION ×3 (07:52→20:26)
[2024-10-12] MEDS: LEVALBUTEROL NEB 1.25 MG/3 ML INHALATION ×3 (07:52→20:26)
[2024-10-12 09:34] LABS: Basophils Percent Auto 0.1 % (0.2-1.2); Eosinophils Absolute Auto 0.4 K/mm3 (0-0.3); Eosinophils Percent Auto 4.6 % (0-4.4); Hematocrit 37.5 % (42.0-52.0); Hemoglobin 11.8 g/dL (14.0-18.0); Immature Granulocyte Absolute 0.14 K/mm3 (0.00-0.031); Immature Granulocyte Percent A 1.5 % (0-0.5); Immature Platelet Fraction Pct 4.1 % (0.9-11.2); Lymphocytes Absolute Auto 1.32 K/mm3 (0.9-3.2); Lymphocytes Percent Auto 13.9 % (18.3-44.2); Mean Corpuscular HGB Conc 31.5 g/dl (32-36); Mean Corpuscular Hemoglobin 30.3 pg (26-34); Mean Corpuscular Volume 96.4 fl (80-100); Monocytes Percent Auto 10.5 % (2.6-8.5); Neutrophils Absolute Auto 6.6 K/mm3 (1.3-6.7); Neutrophils Percent Auto 69.4 % (45.5-73.1); Platelet Count Result 141 k/mm3 (150-375); Red Blood Count 3.89 M/mm3 (4.6-6.20); Red Cell Distribution Width 14.3 % (11.5-14.5); White Blood Count 9.5 K/mm3 (4.5-10.0)
--- NOTE | 2024-10-12 09:41 | P.PNIM_ITS ---
Progress Note: A&P Assessment and Plan (1) Acute hypoxemic respiratory failure: Code(s): J96.01 - Acute respiratory failure with hypoxia Status: Acute Assessment and Plan: Patient presented to the ED via EMS wearing non-rebreather. ABG showed 7.33/62/149 on 15L NRBM Hypercarbic respiratory failure and was placed on BiPAP. Patient has a history of ANIA and is non-compliant with CPAP as well as a history of COPD. He also has a history of aspiration pneumonia. Repeat ABG showed improvement but patient was lethargic. Case was discussed with ICU physician and changed to AVAPS mode with benefit. * Repeat gas showed ph 7.407, pCO2 45.5, pO2 75.8, HCO3 28.8. Patient is alert and orientated x 3 * He was transitioned back to his baseline oxygen of 2-3 L NC. Continue Bipap at night and during naps. * Chest x-ray shows a stable right apical consolidation (area of previous cancer) with no changes from prior exam. Findings have been present since 07/2023 * WBC 10.9, lactic normal at 1.2, PCT 0.1, CRP 4.5 * D-dimer positive. CTA was negative for PE but does show bilateral LL PNA. * Quad viral screen negative, MRSA positive * Blood cultures NGTD * started on broad spectrum abx with meropenem, vancomycin, and doxycycline. * Abx simplified to doxy and meropenem. Abx for 7 days. Wean down on bronchodilators. * stable- continue regimen - meropenem completed -doxy- still on-finishing up course (2) DVT (deep venous thrombosis): Code(s): I82.409 - Acute embolism and thrombosis of unspecified deep veins of unspecified lower extremity Status: Acute Assessment and Plan: D-dimer positive. CTA was negative for PE but does show bilateral LL PNA. Patient found to have a right femoral DVT by doppler. Patient has a hx of AFib and was on Eliquis and ASA at discharge on Jun 2024. Urology note from Jul 2024 showing only ASA. He did have gross heamturia noted at some point Patient only on Plavix at discharge in August 2024 Will proceed with treatment with Eliquis and stop Plavix. Consider filter if he has evidence of bleeding. Consider adding ASA for his CAD if he tolerates being on Eliquis without bleeding. no s/s of bleeding. (3) Pneumonia: Qualifiers: Laterality: right Lung location: upper lobe of lung Pneumonia type: du e to unspecified organism Qualified Code(s): J18.9 - Pneumonia, unspecified organism Code(s): J18.9 - Pneumonia, unspecified organism Status: Acute Assessment and Plan: Possible aspiration given his hx of dysphagia. Treatment as above (4) COPD (chronic obstructive pulmonary disease): Code(s): J44.9 - Chronic obstructive pulmonary disease, unspecified Status: Acute Assessment and Plan: History of COPD on 2-3 L NC at baseline. He has a history of ANIA, noncompliant with Cpap. * initially on BiPAP but switched to AVAPs mode with improvement * loaded with Solu-Medrol 125 mg IVP once and started on 60 mg IVP every 8 hours * Brocnhodilators and Mucinex * CPT with vest TID and PEP therapy. Not tolerating BiPAP at night * Wean steroids. De-escalate bronchodilators. * Determine if he can have BiPAP at the facility but he will not wer it. Education completed. Pt is encouraged to wear it. (5) AMS (altered mental status): Code(s): R41.82 - Altered mental status, unspecified Status: Acute Assessment and Plan: Likely 2/2 to hypercarbic respiratory failure. Patient arrived A&Ox4 per triage note. * confusion from infection? UTI vs pneumonia vs sacral ulcer infection. * Improvement in mental status but still mildly confused at times; might be baseline or related to abx or from not wearing his bipap * Follow (6) Acute UTI: Code(s): N39.0 - Urinary tract infection, site not specified Status: Acute Assessment and Plan: Patient has a chronic corral catheter and history of ESBL. U/A is largely concerning for UTI however, it is not much different from his UA on 08/25 for which the urine culture grew out normal nora. * BCx NGTD. UCx growing ESBL EColi sensitive to Augmentin, Gent, Imipenem and Meropenem. * Continue meropenem for 7 days * Catheter exchanged in the ED (7) CHF (congestive heart failure): Qualifiers: Heart failure chronicity: acute Heart failure type: unspecified Qualified Code(s): I50.9 - Heart failure, unspecified Code(s): I50.9 - Heart failure, unspecified Status: Acute Assessment and Plan: ECHO from 04/09 showed LV systolic fxn normal with EF 55-60%, grade 1 diastolic dysfunction. Mild AV valve stenosis. * BNP 653 * Does not appear to be on any cardiac medications, including diuretics. * He has trace bilateral lower extremity edema and abdomen is slightly distended but likely from adynamic ileus. He sounds coarse with rhonchi. He feels short of breath at rest. * Lasix 40 mg IVP once but no change in UOP. * Renal function stable. Metabolic acidosis noted. * CXR today showing RUL consolidation with XRT fibrosis and mild interval increase in course interstial and airsapce opacities. * Hodl on Lasix given the metabolic acidosis. Check ABG * weight stable. i/o reviewed (8) Ileus: Code(s): K56.7 - Ileus, unspecified Status: Acute Assessment and Plan: Abdominal distention with pain to palpation. KUB shows stool filled rectosigmoid, likely adynamic ileus with stomach distention and constipation. * He passed 5 stools on 10/08 and 1 listed 10/09 * Currently no nausea or vomiting and tolerating diet. Exam much improved * Continue bowel regimen with lactulose. 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 The patient's blood glucose was reviewed on 10/10 Glucose well controlled Continue AccuCheks covering with sliding scale. Hypoglycemia protocol available as needed. Continue diabetic diet with level 5 minced/moist with mildly thickened liquids per recent speech therapy note. (10) Sacral decubitus ulcer: Code(s): L89.159 - Pressure ulcer of sacral region, unspecified stage Status: Acute Assessment and Plan: Pressure vs sheer injury to sacrum. Area with blanchable erythema and small areas of open tissue with yellow slough. No foul odor or drainage present. * Q2 turns * Off load bony prominence * topical barrier cream applied * wound consult notes reviewed from previous admission recommending application of clear antifungal barrier cream to bilateral buttocks every shift. 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 Plan DVT prophylaxis - Eliquis Code status - modified Time Spent With Patient Time with patient: Greater than 35 minutes Subjective Date/time seen: 10/12/24 09:41 Interval history: 78yo male with aortic stenosis, AFib, BPH, CHF, COPD and DM here for SOB. [facility] He also has chronic respiratory failure place [facility]. He does not wear NIV as he does not want to. Pt is seen and examined this am. Reports no pain, no n/v/d. Passing gas. Appropriate, alert and answers questions. will repeat KUB. He is finishing up antibiotics- anticipate discharge back to SNF within next few days. Review of Systems Review of Systems: All systems reviewed & are unremarkable except as noted in HPI and below Exam Narrative: Gen - NARD Chest Port site right upper chest CV - RRR S1/S2 Abd - Soft, NT/ND, +BS - Corral secured draining clear yellow urine Ext - No pedal edema Psych - Nml mood and affect. Skin - Warm and dry. Const: General: comfortable Objective Data Vital Signs Vital Signs: Vital Signs - 24 hr 10/11/24 13:20 10/11/24 13:20 10/11/24 13:30 Temperature Pulse Rate 78 80 Respiratory Rate 20 20 Blood Pressure Pulse Oximetry 95 Oxygen Delivery Nasal Cannula Oxygen Flow Rate 2 Fraction of Inspired Oxygen 28 10/11/24 16:00 10/11/24 20:24 10/11/24 20:24 Temperature 98 F Pulse Rate 73 80 Respiratory Rate 18 18 Blood Pressure 132/64 Pulse Oximetry 93 94 Oxygen Delivery Nasal Cannula Oxygen Flow Rate 2 Fraction of Inspired Oxygen 10/11/24 21:50 10/11/24 20:00 10/12/24 06:28 Temperature 99.0 F 97.8 F Pulse Rate 85 86 Respiratory Rate 22 H 22 H Blood Pressure 119/59 L 104/64 Pulse Oximetry 95 95 94 Oxygen Delivery Nasal Cannula Oxygen Flow Rate 2 Fraction of Inspired Oxygen 10/12/24 07:52 10/12/24 07:52 10/12/24 08:01 Temperature Pulse Rate 82 84 Respiratory Rate 20 20 Blood Pressure Pulse Oximetry 94 Oxygen Delivery Nasal Cannula Oxygen Flow Rate 2 Fraction of Inspired Oxygen Intake/Output Intake/Output: Intake & Output 10/09/24 10/10/24 10/11/24 10/12/24 23:59 23:59 23:59 23:59 Intake Total 3703 523 0208 0 Output Total 1650 1700 1350 950 Balance -630 -1000 -210 -950 Meds/Results Medications: Active Medications Generic Name Dose Route Start Last Admin Trade Name Freq PRN Reason Stop Dose Admin Acetaminophen 650 mg 10/05/24 14:39 10/11/24 21:03 Acetaminophen 325 Mg Tablet PO 650 mg Q6H PRN Administration Pain, Mild Apixaban 10 mg 10/08/24 21:00 10/11/24 20:31 Apixaban 5 Mg Tablet PO 10/15/24 20:59 10 mg Q12HR JILLIAN Administration Apixaban 5 mg 10/15/24 21:00 Apixaban 5 Mg Tablet PO Q12HR JILLIAN Ascorbic Acid 500 mg 10/05/24 17:00 10/11/24 17:50 Ascorbic Acid 500 Mg Tablet PO 500 mg BID JILLIAN Administration Bisacodyl 10 mg 10/05/24 14:39 Bisacodyl 5 Mg Tablet Ec PO BID PRN constipation Bisacodyl 10 mg 10/05/24 18:11 Bisacodyl 10 Mg Suppository RECTAL DAILY PRN Constipation Bisacodyl 5 mg 10/11/24 09:00 10/11/24 09:49 Bisacodyl 5 Mg Tablet Ec PO 5 mg QAM JILLIAN Administration Bupropion HCl 150 mg 10/06/24 09:00 10/11/24 09:49 Bupropion Hcl Xl (24 Hr) 150 Mg Tabcr PO 150 mg DAILY JILLIAN Administration Dextrose 12.5 gm 10/05/24 14:38 Dextrose 50% 25 Gm/50 Ml Syringe IV PUSH PRN PRN Hypoglycemia Protocol Doxycycline Hyclate 100 mg 10/07/24 21:00 10/11/24 20:31 Doxycycline Hyclate 100 Mg Tablet PO 100 mg Q12HR JILLIAN Administration Fluoxetine HCl 20 mg 10/06/24 09:00 10/11/24 09:50 Fluoxetine Hcl 20 Mg Capsule PO 20 mg DAILY JILLIAN Administration Gabapentin 100 mg 10/05/24 17:00 10/11/24 17:50 Gabapentin 100 Mg Capsule PO 100 mg TID JILLIAN Administration Glucagon 1 mg 10/05/24 14:38 Glucagon For Inj 1 Mg Vial IM PRN PRN Hypoglycemia Protocol Glucose 15 gm 10/05/24 14:38 Glucose Oral Gel 15 Gm Of Glucse In 37.5 Gm Tube PO PRN PRN Hypoglycemia Protocol Guaifenesin 600 mg 10/05/24 21:00 10/11/24 20:31 Guaifenesin 12 Hr 600 Mg Tabcr PO 600 mg Q12HR JILLIAN Administration Dextrose 1,000 mls @ 100 mls/hr 10/05/24 14:38 Dextrose 5% 1,000 Ml IVPB PRN PRN Hypoglycemia Protocol Insulin Aspart 3 - 6 units 10/05/24 18:00 10/12/24 00:08 Insulin Aspart (*Bkc) 100 Units/Ml SUB-Q Not Given Q6H [facility] Protocol Ipratropium Laona 0.5 mg 10/10/24 20:00 10/12/24 07:52 Ipratropium Br 0.02% Inh Soln 0.5 Mg/2.5 Ml Vial INHALATION 0.5 mg [id number] JILLIAN Administration Lactulose 20 gm 10/05/24 17:00 10/11/24 17:56 Lactulose 20 Gm/30 Ml Udc PO 20 gm TID JILLIAN Administration Levalbuterol HCl 1.25 mg 10/10/24 20:00 10/12/24 07:52 Levalbuterol Neb 1.25 Mg/3 Ml INHALATION 1.25 mg [id number] JILLIAN Administration Levothyroxine Sodium 25 mcg 10/06/24 06:30 10/12/24 06:29 Levothyroxine Sodium 25 Mcg Tablet PO 25 mcg DAILY@0630 JILLIAN Administration Methadone HCl 5 mg 10/05/24 17:00 10/11/24 17:50 Methadone Hcl (*Crx) 5 Mg Tablet PO 5 mg BID JILLIAN Administration Mirtazapine 15 mg 10/05/24 21:00 10/11/24 20:31 Mirtazapine 15 Mg Tablet PO 15 mg HS JILLIAN Administration Multivitamins/Minerals 1 tab 10/06/24 09:00 10/11/24 09:49 Multivitamins /C Lutein (Centrum Silver) Tablet *Bkc PO 1 tab DAILY JILLIAN Administration Olanzapine 5 mg 10/05/24 17:00 10/11/24 17:50 Olanzapine 5 Mg Tablet PO 5 mg BID JILLIAN Administration Ondansetron HCl 8 mg 10/05/24 14:53 Ondansetron Hcl Odt 4 Mg Tablet PO Q8H PRN Nausea Pantoprazole Sodium 40 mg 10/06/24 09:00 10/11/24 09:50 Pantoprazole 40 Mg Tablet PO 40 mg QAM JILLIAN Administration Potassium Chloride 20 meq 10/05/24 17:00 10/07/24 17:14 Potassium Chloride 20 Meq Er Tablet PO 20 meq BID JILLIAN Administration Ropinirole HCl 1 mg 10/05/24 21:00 10/11/24 20:31 Ropinirole Hcl 1 Mg Tablet PO 1 mg HS JILLIAN Administration Sucralfate 1 gm 10/05/24 16:30 10/12/24 06:29 Sucralfate 1 Gm Tablet PO 1 gm TIDAC JILLIAN Administration Tamsulosin HCl 0.4 mg 10/05/24 21:00 10/11/24 20:31 Tamsulosin Hcl 0.4 Mg Capsule PO 0.4 mg HS JILLIAN Administration Radiology Results: ITS Impressions Chest CTA 10/06/24 23:02 IMPRESSION: 1. No pulmonary embolus. Sensitivity is mildly decreased by motion artifact. 2. Bilateral lower lobe pneumonia. 3. Radiation fibrosis involving right upper lobe and superior segment right lower lobe. Abdomen X-Ray 10/08/24 10:49 Impression: Fecal impaction and constipation. Venous Doppler Study 10/08/24 19:10 IMPRESSION: 1. Deep vein thrombosis involving right femoral vein. ADDENDUM: 10/08/241915 I called this result to Mily Unger. Chest X-Ray 10/10/24 08:39 IMPRESSION: 1. Unchanged consolidation in the right upper lobe consistent with pneumonia. 2. Mild interval increase in coarse interstitial and mild airspace opacities in bilateral mid and lower lung zones which could represent atelectasis, mild pulmonary edema, additional pneumonia or some combination thereof. 3. Volume loss and architectural distortion right lung likely related to radiation treatment for reported prior lung cancer. 4. Cardiomegaly. Labs Labs: Laboratory Results - last 24 hr 10/11/24 10/11/24 10/12/24 11:18 16:28 00:07 WBC RBC Hgb Hct MCV MCH MCHC RDW Plt Count MPV Immature Gran % (Auto) Neut % (Auto) Lymph % (Auto) Glades % (Auto) Eos % (Auto) Baso % (Auto) Lymph # (Auto) [place] # (Auto) Eos # (Auto) Baso # (Auto) Abs Immat Gran (auto) Absolute Neuts (auto) Absolute Nucleated RBC Nucleated RBC % % Immature Plt Fraction POC Capillary Glucose 105 88 118 H 10/12/24 10/12/24 07:38 09:19 WBC 9.5 RBC 3.89 L Hgb 11.8 L Hct 37.5 L MCV 96.4 MCH 30.3 MCHC 31.5 L RDW 14.3 Plt Count 141 L MPV 11.0 H Immature Gran % (Auto) 1.5 H Neut % (Auto) 69.4 Lymph % (Auto) 13.9 L Glades % (Auto) 10.5 H Eos % (Auto) 4.6 H Baso % (Auto) 0.1 L Lymph # (Auto) 1.32 Glades # (Auto) 1.0 H Eos # (Auto) 0.4 H Baso # (Auto) 0.0 Abs Immat Gran (auto) 0.14 H Absolute Neuts (auto) 6.6 Absolute Nucleated RBC 0.000 Nucleated RBC % 0.0 % Immature Plt Fraction 4.1 POC Capillary Glucose 91 Quality VTE Prophylaxis VTE prophylaxis: mechanical ordered and pharmacologic ordered
[2024-10-12 09:43] LABS: Alanine Aminotransferase 11 U/L (6-50); Albumin Level 2.5 g/dL (3.5-5.1); Alkaline Phosphatase 50 U/L (38-126); Aspartate Amino Transferase 14 U/L (17-59); Bilirubin,Total 0.6 mg/dL (0.2-1.3); Blood Urea Nitrogen 39 mg/dL (9-20); Calcium 8.9 mg/dL (8.4-10.2); Carbon Dioxide > 40 mmol/L (22-30); Chloride 96 mmol/L (98-107); Estimated CRCL calculation 66 ml/min; Estimated Glomerular Filt Rate > 60; Glucose 80 mg/dL (65-110); Potassium 4.2 mmol/L (3.4-5.0); Sodium 136 mmol/L (137-145)
[2024-10-12] MEDS: OLANZapine 5 MG TABLET PO ×2 (10:57→17:18)
[2024-10-12] MEDS: buPROPion HCL XL (24 HR) 150 MG TABCR PO (10:57)
[2024-10-12] MEDS: GABAPENTIN 100 MG CAPSULE PO ×3 (10:57→17:17)
[2024-10-12] MEDS: PANTOPRAZOLE 40 MG TABLET PO (10:57)
[2024-10-12] MEDS: methADONE HCL (*CRX) 5 MG TABLET PO ×2 (10:57→17:17)
[2024-10-12] MEDS: DOXYCYCLINE HYCLATE 100 MG TABLET PO ×2 (10:57→20:32)
[2024-10-12] MEDS: FLUoxetine HCL 20 MG CAPSULE PO (10:57)
[2024-10-12] MEDS: APIXABAN 5 MG TABLET 10 MG PO ×2 (10:57→20:33)
[2024-10-12] MEDS: guaiFENesin 12 HR 600 MG TABCR PO ×2 (10:57→20:32)
[2024-10-12] MEDS: MULTIVITAMINS /C LUTEIN (CENTRUM SILVER) TABLET *BKC 1 TAB PO (10:58)
[2024-10-12] MEDS: ASCORBIC ACID 500 MG TABLET PO ×2 (10:58→17:18)
[2024-10-12] MEDS: BISACODYL 5 MG TABLET EC PO (11:01)
[2024-10-12] MEDS: LACTULOSE 20 GM/30 ML UDC PO ×3 (11:01→17:17)
--- NOTE | 2024-10-12 11:04 | PCNFU ---
Nutrition Follow-Up Complete: Inadequate energy intake related to NPO status as evidenced by diet order Increased nutrient needs related to altered skin integrity as evidenced by a DTPI to buttocks Goal:Diet ordered PO intake 75% Pt progressing towards goal, continue with same goal of 75% intake of meals Pt current nutrition is Diabetic, minced and moist level 5, level 2 liquids, Glucerna shakes BID, RA BID. Nutrition recommendation: continue with current plan of care Last recorded weight is 76.3 kg. Bowel Motility: +BM 10/09 Labs Reviewed: Hgb:11.8, HCT:37.5, alb:2.5, NA:136, BUN:39, Glu:118 Meds Noted: eliquis, vit C, dulcolax Skin: DTPI to buttocks Additional Notes: Pt evaluated by speech, diet advanced, intake 50% most meals, plus supplements. Encourage po intake, agree with orders. Monitor diet orders, intake, wt, labs, skin. Follow up in 5 days.
[2024-10-12 11:27] LABS: Glucose Point of Care 79 mg/dl (65-105)
[2024-10-12 16:41] LABS: Glucose Point of Care 91 mg/dl (65-105)
[2024-10-12 17:08] LABS: MRSA (PCR) DETECTED (NOT DETECTE)
[2024-10-12] MEDS: ACETAMINOPHEN 325 MG TABLET 650 MG PO (17:17)
[2024-10-12] MEDS: rOPINIRole HCL 1 MG TABLET PO (20:32)
[2024-10-12] MEDS: TAMSULOSIN HCL 0.4 MG CAPSULE PO (20:32)
[2024-10-12 21:15] LABS: Glucose Point of Care 90 mg/dl (65-105)
[2024-10-12 21:32] LABS: Alveolar/Arterial O2 Gradient 40.9 mmHg; Base Excess ABG 13.4 mEq/l (+/-2.0); Carboxyhemoglobin 2.1 % THb (0-2.0); Fractional Inspired Oxygen 24 %; Methemoglobin ABG 0.3 %THb (0-1.5); Oxygen Content ABG 15.8 %vol (16.0-22.0); Oxygen Saturation ABG 90.7 % (95.0-100.0); Oxyhemoglobin 89.3 % THb (90.0-100.0); PO2 ABG 58.8 mmHg (80.0-100.0); PO2 FiO2 Ratio Arterial Blood 2.45 %; Reduced Hemoglobin 8.3 %THb (0-5.0); Total Hemoglobin 12.6 g/dL (12.0-18.0); pH ABG 7.442 (7.350-7.450)
[2024-10-12 21:33] LABS: Device NASAL CANNULA; Modified Allen's Test Pass; Site Drawn RIGHT RADIAL
[2024-10-12] MEDS: ALBUMIN HUMAN 5% 250 ML IV CONT (22:45)
[2024-10-13] VITALS (12 sets, daily range): BP systolic 78–120; BP diastolic 50–78; PULSE 62–74; RESP 18–21; TEMP 36.6; O2SAT 96–98
[2024-10-13] MEDS: LEVOTHYROXINE SODIUM 25 MCG TABLET PO (06:33)
[2024-10-13] MEDS: SUCRALFATE 1 GM TABLET PO ×2 (06:33→10:47)
[2024-10-13 07:00] LABS: Glucose Point of Care 108 mg/dl (65-105)
[2024-10-13] MEDS: LEVALBUTEROL NEB 1.25 MG/3 ML INHALATION ×2 (07:45→13:19)
[2024-10-13] MEDS: IPRATROPIUM BR 0.02% INH SOLN 0.5 MG/2.5 ML VIAL INHALATION ×2 (07:45→13:19)
[2024-10-13 08:46] LABS: Glucose Point of Care 85 mg/dl (65-105)
[2024-10-13 09:24] LABS: Hematocrit 39.7 % (42.0-52.0); Hemoglobin 12.5 g/dL (14.0-18.0); Immature Platelet Fraction Pct 5.1 % (0.9-11.2); Mean Corpuscular HGB Conc 31.5 g/dl (32-36); Mean Corpuscular Hemoglobin 30.8 pg (26-34); Mean Corpuscular Volume 97.8 fl (80-100); Mean Platelet Volume 11.2 fl (7.4-10.4); Platelet Count Result 138 k/mm3 (150-375); Red Blood Count 4.06 M/mm3 (4.6-6.20); Red Cell Distribution Width 14.2 % (11.5-14.5)
[2024-10-13] MEDS: APIXABAN 5 MG TABLET 10 MG PO (09:27)
[2024-10-13] MEDS: methADONE HCL (*CRX) 5 MG TABLET PO (09:27)
[2024-10-13] MEDS: LACTULOSE 20 GM/30 ML UDC PO ×2 (09:27→13:46)
[2024-10-13] MEDS: ASCORBIC ACID 500 MG TABLET PO (09:27)
[2024-10-13] MEDS: PANTOPRAZOLE 40 MG TABLET PO (09:28)
[2024-10-13] MEDS: FLUoxetine HCL 20 MG CAPSULE PO (09:28)
[2024-10-13] MEDS: GABAPENTIN 100 MG CAPSULE PO ×2 (09:28→13:46)
[2024-10-13] MEDS: MULTIVITAMINS /C LUTEIN (CENTRUM SILVER) TABLET *BKC 1 TAB PO (09:28)
[2024-10-13] MEDS: BISACODYL 5 MG TABLET EC PO (09:28)
[2024-10-13] MEDS: buPROPion HCL XL (24 HR) 150 MG TABCR PO (09:29)
[2024-10-13] MEDS: DOXYCYCLINE HYCLATE 100 MG TABLET PO (09:29)
[2024-10-13] MEDS: guaiFENesin 12 HR 600 MG TABCR PO (09:29)
[2024-10-13] MEDS: OLANZapine 5 MG TABLET PO (09:31)
[2024-10-13 09:37] LABS: Blood Urea Nitrogen 40 mg/dL (9-20); Calcium 8.9 mg/dL (8.4-10.2); Carbon Dioxide > 40 mmol/L (22-30); Chloride 96 mmol/L (98-107); Estimated CRCL calculation 66 ml/min; Estimated Glomerular Filt Rate > 60; Glucose 70 mg/dL (65-110); Magnesium 2.4 mg/dL (1.6-2.3); Potassium 4.4 mmol/L (3.4-5.0); Sodium 138 mmol/L (137-145)
[2024-10-13 10:37] LABS: Folic Acid 14.6 ng/mL (2.76->20)
[2024-10-13] MEDS: SODIUM CHLORIDE 0.9% IV 1,000 ML 250 ML IV CONT (10:47)
--- NOTE | 2024-10-13 11:47 | P.DS_ITS ---
DS: Admitting Diagnosis Discharge Date 10/13 Admitting Diagnosis ams DS: Discharge Diagnosis Discharge Diagnosis (1) Acute hypoxemic respiratory failure: Code(s): J96.01 - Acute respiratory failure with hypoxia Status: Acute (2) DVT (deep venous thrombosis): Code(s): I82.409 - Acute embolism and thrombosis of unspecified deep veins of unspecified lower extremity Status: Acute (3) Pneumonia: Qualifiers: Laterality: right Lung location: upper lobe of lung Pneumonia type: due to unspecified organism Qualified Code(s): J18.9 - Pneumonia, unspecified organism Code(s): J18.9 - Pneumonia, unspecified organism Status: Acute (4) COPD (chronic obstructive pulmonary disease): Code(s): J44.9 - Chronic obstructive pulmonary disease, unspecified Status: Acute (5) AMS (altered mental status): Code(s): R41.82 - Altered mental status, unspecified Status: Acute (6) Acute UTI: Code(s): N39.0 - Urinary tract infection, site not specified Status: Acute (7) CHF (congestive heart failure): Qualifiers: Heart failure chronicity: acute Heart failure type: unspecified Qualified Code(s): I50.9 - Heart failure, unspecified Code(s): I50.9 - Heart failure, unspecified Status: Acute (8) Ileus: Code(s): K56.7 - Ileus, unspecified Status: Acute (9) Diabetes mellitus: Qualifiers: Diabetes mellitus complication status: without complication 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 Area with blanchable erythema and small areas of open tissue with yellow slough. No foul odor or drainage present. * Q2 turns * Off load bony prominence * topical barrier cream applied * wound consult notes reviewed from previous admission recommending application of clear antifungal barrier cream to bilateral buttocks every shift. 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 Plan DVT prophylaxis - Eliquis Code status - modified DS: Summary Hospital Course Hospital Course: 78-year-old gentleman with a past medical history significant for aortic valve stenosis, atrial fibrillation, BPH, CHF, COPD, CAD, depression, diabetes, hypothyroidism, and mixed hyperlipidemia who presented to the emergency room via EMS from his [facility] with complaints of shortness of breath. The patient is rather lethargic and unable to participate in review of symptoms. His son is at the bedside and provides a limited history. He states that the nursing staff at the [facility] contacted him saying that his father had a fever. Several issues were addressed: # acute resp failure Patient presented to the ED via EMS wearing non-rebreather. ABG showed 7.33/62/149 on 15L NRBM Hypercarbic respiratory failure and was placed on BiPAP. Patient has a history of ANIA and is non-compliant with CPAP as well as a history of COPD. He also has a history of aspiration pneumonia. Repeat ABG showed improvement but patient was lethargic. Case was discussed with ICU physician and changed to AVAPS mode with benefit. * Repeat gas showed ph 7.407, pCO2 45.5, pO2 75.8, HCO3 28.8. Patient is alert and orientated x 3 * He was transitioned back to his baseline oxygen of 2-3 L NC. Continue Bipap at night and during naps. * Chest x-ray shows a stable right apical consolidation (area of previous cancer) with no changes from prior exam. Findings have been present since 07/2023 * WBC 10.9, lactic normal at 1.2, PCT 0.1, CRP 4.5 * D-dimer positive. CTA was negative for PE but does show bilateral LL PNA. * Quad viral screen negative, MRSA positive * Blood cultures NGTD * started on broad spectrum abx with meropenem, vancomycin, and doxycycline. * Abx simplified to doxy and meropenem. Abx for 7 days. Wean down on bronchodilators. COMPLETED BOTH ANTIBIOTICS. He HAS to wear his BiPAP- if he does not, he will gets worse and will be re admitted. I discussed it with him and his son. Dressing can be applied to his nose to help with abrasion to make wearing CPAP a bit easier. # dvt D-dimer positive. CTA was negative for PE but does show bilateral LL PNA. Patient found to have a right femoral DVT by doppler. Patient has a hx of AFib and was on Eliquis and ASA at discharge on Jun 2024. Urology note from Jul 2024 showing only ASA. He did have gross heamturia noted at some point Patient only on Plavix at discharge in August 2024 Will proceed with treatment with Eliquis and stop Plavix. Consider filter if he has evidence of bleeding. Consider adding ASA for his CAD if he tolerates being on Eliquis without bleeding - Needs to be re-assessed per PCP. Eliquis- take 10 mg BID 10/08- 10/15, then 5 mg bid- start 5 mg bid dose on 10/16 in am Continue eliquis x 3 month (through (01/08) and repeat Doppler to reassess DVT # UTI Patient has a chronic corral catheter and history of ESBL. U/A is largely concerning for UTI however, it is not much different from his UA on 08/25 for which the urine culture grew out normal nora. * BCx NGTD. UCx growing ESBL EColi sensitive to Augmentin, Gent, Imipenem and Meropenem. * Completed meropenem for 7 days * Catheter exchanged in the ED # CHF ECHO from 04/09 showed LV systolic fxn normal with EF 55-60%, grade 1 diastolic dysfunction. Mild AV valve stenosis. * BNP 653 * Does not appear to be on any cardiac medications, including diuretics. * He has trace bilateral lower extremity edema and abdomen is slightly distended but likely from adynamic ileus. He sounds coarse with rhonchi. He feels short of breath at rest. * Lasix 40 mg IVP once but no change in UOP. * Renal function stable. Metabolic acidosis noted. * CXR today showing RUL consolidation with XRT fibrosis and mild interval increase in course interval and airsapce opacities. * Hold on Lasix given the metabolic acidosis. Check ABG * weight stable. i/o reviewed * NO CHANGES TO MEDS WERE MADE # ILEUS Abdominal distention with pain to palpation. KUB shows stool filled rectosigmoid, likely adynamic ileus with stomach distention and constipation. * He passed 5 stools on 10/08 and 1 listed 10/09 * Currently no nausea or vomiting and tolerating diet. Exam much improved * Continue bowel regimen with lactulose. Add dulcolax abd is soft and he is passing gas- continue regimen and monitor Repeated KUB 10/13: Decreasing volume of colonic fecal material. Will continue lactulose , dulcolax. # T2DM Hemoglobin A1C 4.5% Continue diabetic diet with level 5 minced/moist with mildly thickened liquids per recent speech therapy note. Hypoglycemia protocol # Sacral decubitus ulcer Pressure vs sheer injury to sacrum. Area with blanchable erythema and small a reas of open tissue with yellow slough. No foul odor or drainage present. 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 Status at Discharge Functional status at discharge: bed bound Overall status at discharge: patient is progressing back to baseline Time Spent with Patient Time attestation: Total time spent providing and/or coordinating discharge services: Time spent: Greater than 30 minutes Exam Narrative: Gen - alert, somewhat slow to respond but his baseline. Chest Port site right upper chest CV - RRR S1/S2 Abd - Soft, NT/ND, +BS - Corral secured draining clear yellow urine Ext - No pedal edema Psych - Nml mood and affect. Skin - Warm and dry. Const: General: comfortable DS: Data Data Completed and Pending Labs on day of discharge: Labs from last 24 hours 10/13/24 10/13/24 10/13/24 08:39 08:20 01:30 WBC 9.0 RBC 4.06 L Hgb 12.5 L Hct 39.7 L MCV 97.8 MCH 30.8 MCHC 31.5 L RDW 14.2 Plt Count 138 L MPV 11.2 H % Immature Plt Fraction 5.1 Puncture Site ABG pH ABG pCO2 ABG pO2 ABG PO2/FiO2 Ratio ABG HCO3 ABG O2 Saturation ABG O2 Content ABG Base Excess A-a Gradient Oxyhemoglobin Carboxyhemoglobin Methemoglobin Reduced Hemoglobin Total Hemoglobin O2 Delivery Device O2 Liters/Min FiO2 Sodium 138 Potassium 4.4 Chloride 96 L Carbon Dioxide > 40 H Anion Gap BUN 40 H Creatinine 0.80 Estim Creat Clear Calc 66 Estimated GFR > 60 Glucose 70 POC Capillary Glucose 85 108 H Calcium 8.9 Magnesium 2.4 H Vitamin B12 672.0 Folate 14.6 Nasal MRSA (PCR) 10/12/24 10/12/24 10/12/24 21:23 20:55 16:34 WBC RBC Hgb Hct MCV MCH MCHC RDW Plt Count MPV % Immature Plt Fraction Puncture Site Right radial ABG pH 7.442 ABG pCO2 60.0 H ABG pO2 58.8 L ABG PO2/FiO2 Ratio 2.45 ABG HCO3 40.0 H ABG O2 Saturation 90.7 L ABG O2 Content 15.8 L ABG Base Excess 13.4 A-a Gradient 40.9 Oxyhemoglobin 89.3 L Carboxyhemoglobin 2.1 H Methemoglobin 0.3 Reduced Hemoglobin 8.3 H Total Hemoglobin 12.6 O2 Delivery Device Nasal cannula O2 Liters/Min 1.0 FiO2 24 Sodium Potassium Chloride Carbon Dioxide Anion Gap BUN Creatinine Estim Creat Clear Calc Estimated GFR Glucose POC Capillary Glucose 90 91 Calcium Magnesium Vitamin B12 Folate Nasal MRSA (PCR) 10/12/24 14:15 WBC RBC Hgb Hct MCV MCH MCHC RDW Plt Count MPV % Immature Plt Fraction Puncture Site ABG pH ABG pCO2 ABG pO2 ABG PO2/FiO2 Ratio ABG HCO3 ABG O2 Saturation ABG O2 Content ABG Base Excess A-a Gradient Oxyhemoglobin Carboxyhemoglobin Methemoglobin Reduced Hemoglobin Total Hemoglobin O2 Delivery Device O2 Liters/Min FiO2 Sodium Potassium Chloride Carbon Dioxide Anion Gap BUN Creatinine Estim Creat Clear Calc Estimated GFR Glucose POC Capillary Glucose Calcium Magnesium Vitamin B12 Folate Nasal MRSA (PCR) Detected A* Discharge Plan Discharge Attending physician on discharge: Sebastian Lui Discharging Clinician: Arely Levine Patient Disposition: [facility] Senior Care/As[facility] Living Activity: may shower Diet: as tolerated and diabetic Discharge Instructions: Please ensure pt wears his BiPap. If he doesnot, his co2 level will increase and that will lead to altered mental status and re hospitalizations. Please provide dressing to pt's nose to make it wearing BiPap not so painful. HIs son noticed some random muscle jerking that pt experienced in the past- he thinks it was due to some medication but he was not sure which one. I discussed it with him and he didnot want em to make any changes at this point. Pt's PCP can review meds and see if there was any records of medications that was causing muscle jerkiness and whether pt is still on it or not. Patient Instructions: Antibiotic Form, Heart Failure (GEN) Stand Alone Forms: General Discharge Information Follow-up/Referrals: Jewel Aleman MD [Primary Care Provider] - 1 Week Discharge Medications: New Eliquis 5 mg Tablet 5 mg PO Q12HR Qty: 90 0RF Rx Instructions: start taking 5 mg twice a day on 10/16 bisacodyl [Laxative (bisacodyl)] 5 mg Tablet,Delayed Release (Dr/Ec) 5 mg PO QAM Qty: 30 0RF Eliquis 5 mg Tablet 10 mg PO Q12HR Qty: 5 0RF Rx Instructions: last dose 10/15 9 pm Continued ondansetron 8 mg Tablet,Disintegrating 8 mg PO Q8H PRN (Reason: Nausea) ropinirole 1 mg tablet 1 mg PO HS albuterol sulfate 90 mcg/actuation HFA aerosol inhaler 1 puff INHALATION Q4H PRN (Reason: Shortness Of Breath) acetaminophen 325 mg Tablet 650 mg PO Q6H PRN (Reason: Pain, Mild) ascorbic acid (vitamin C) 500 mg Tablet 500 mg PO BID bisacodyl [Dulcolax (bisacodyl)] 5 mg Tablet,Delayed Release (Dr/Ec) 10 mg PO BID lactulose 10 gram/15 mL Solution 20 g PO TID Adults Multivitamin 18 mg iron-400 mcg-25 mcg Tablet 1 tablet PO DAILY Pro-Stat Sugar Free 15 gram liquid 30 ml PO DAILY methadone 5 mg tablet 5 mg PO BID bisacodyl 10 mg Suppository 10 mg RECTAL DAILY PRN (Reason: Constipation) Qty: 12 0RF sucralfate [Carafate] 1 gram Tablet 1 g PO TID levothyroxine 25 mcg Tablet 25 mcg PO DAILY polyethylene glycol 3350 [Miralax] 17 gram powder in packet 17 g PO DAILY PRN (Reason: Constipation) Tigan 100 mg/mL solution 100 mg IM ONCE PRN (Reason: migraines) levalbuterol HCl 1.25 mg/3 mL solution for nebulization 1.25 mg inhalation Q6H PRN (Reason: SOB) bupropion HCl 300 mg tablet extended release 24 hr 150 mg PO DAILY olanzapine 5 mg Tablet 5 mg PO BID fluoxetine 20 mg Capsule 20 mg PO DAILY potassium chloride 20 mEq Tablet Extended Release 20 meq PO BID ipratropium bromide 0.02 % Solution 0.5 mg inhalation TID Qty: 75 0RF Symbicort 2 puff inhalation BID Qty: 1 0RF clopidogrel [Plavix] 75 mg Tablet 75 mg PO DAILY diphenhydramine HCl [Benadryl Allergy] 25 mg Tablet 25 mg PO TID PRN (Reason: allergies) mirtazapine [Remeron] 15 mg Tablet 15 mg PO HS trospium 20 mg Tablet 20 mg PO BID Rx Instructions: administer on an empty stomach tamsulosin 0.4 mg capsule 0.4 mg PO HS gabapentin 100 mg capsule 100 mg PO TID Qty: 90 0RF Discontinued polyethylene glycol 3350 [Miralax] 17 gram/dose Powder 17 g PO DAILY No Action pantoprazole 40 mg tablet,delayed release (DR/EC) 40 mg PO QAM Qty: 30 0RF Date of admission: 10/05/24 11:41 Primary Care Provider: Jewel Aleman Admitting Provider: Kye Weaver Attending physician on admission: Kye Weaver Condition: Stable Quality VTE Prophylaxis VTE prophylaxis: mechanical ordered and pharmacologic ordered Hospitalist MIPS Heart Failure (Exclusion) Patient has history of Heart Transplant or Left Ventricular Assistive Device?: No IF YES, STOP HERE Heart Failure (Qualifier) Patient has current or prior documentation of LVEF less than or equal to 40%, or mod/servere depressed LVSF?: No IF NO, STOP HERE
[2024-10-13 12:26] LABS: Alveolar/Arterial O2 Gradient 74.1 mmHg; Base Excess ABG 9.4 mEq/l (+/-2.0); Fractional Inspired Oxygen 28 %; HCO3 ABG 34.6 mEq/l (22.0-26.0); Oxygen Content ABG 16.5 %vol (16.0-22.0); Oxyhemoglobin 92.4 % THb (90.0-100.0); PCO2 ABG 49.8 mmHg (35.0-45.0); PO2 ABG 66.8 mmHg (80.0-100.0); PO2 FiO2 Ratio Arterial Blood 2.39 %; Total Hemoglobin 12.7 g/dL (12.0-18.0)
[2024-10-13 12:28] LABS: Device NASAL CANNULA; Modified Allen's Test Pass; Site Drawn RIGHT RADIAL
[2024-10-13 12:30] LABS: Glucose Point of Care 98 mg/dl (65-105)
[2024-10-13 15:01] LABS: SARS-CoV-2 RNA PCR Negative (Negative)
[2024-10-19 15:19] LABS: Chloride Rand Ur 56 mmol/L (32-290); Chloride/Creatinine Rand Ur 72 (23-275); Creatinine Random Urine 78 mg/dL (20-320)
== END 2024-10-13 16:00 | DRG 193 ==
LOC: ANHED 07:12 → ANHIMU 07:22 → ANH3MEDSUR 10-13 13:16 → ANHIMU 10-14 09:53
PROVIDERS: Family Medicine; Internal Medicine; Nurse Practitioner Acute Care; Physician Assistant; Admitting Provider Internal Medicine; Emergency Provider Emergency Medicine; PCP Family Medicine; Visit Provider Nurse Practitioner
DX: J18.9 Pneumonia, unspecified organism (principal); J96.22 Acute and chronic respiratory failure with hypercapnia; N39.0 Urinary tract infection, site not specified; I48.20 Chronic atrial fibrillation, unspecified; K56.7 Ileus, unspecified; I82.411 Acute embolism and thrombosis of right femoral vein; J44.0 Chronic obstructive pulmonary disease with (acute) lower respiratory infection; I50.9 Heart failure, unspecified; I35.0 Nonrheumatic aortic (valve) stenosis; I25.10 Atherosclerotic heart disease of native coronary artery without angina pectoris; L89.159 Pressure ulcer of sacral region, unspecified stage; E11.42 Type 2 diabetes mellitus with diabetic polyneuropathy; E03.9 Hypothyroidism, unspecified; E78.2 Mixed hyperlipidemia; N40.0 Benign prostatic hyperplasia without lower urinary tract symptoms; M79.7 Fibromyalgia; M19.90 Unspecified osteoarthritis, unspecified site; G47.33 Obstructive sleep apnea (adult) (pediatric); G25.81 Restless legs syndrome; F32.A Depression, unspecified; Z20.822 Contact with and (suspected) exposure to COVID-19; I25.2 Old myocardial infarction; Z11.52 Encounter for screening for COVID-19; Z22.322 Carrier or suspected carrier of Methicillin resistant Staphylococcus aureus; Z91.199 Patient's noncompliance with other medical treatment and regimen due to unspecified reason; Z79.02 Long term (current) use of antithrombotics/antiplatelets; Z85.118 Personal history of other malignant neoplasm of bronchus and lung; Z87.891 Personal history of nicotine dependence
CPT/HCPCS: 36415; 36600; 71045; 71275; 74018; 74019; 80048; 80053; 80061; 80069; 80202; 81001; 82140; 82375; 82436; 82565; 82570; 82607; 82746; 82805; 82948; 83036; 83050; 83605; 83690; 83735; 83880; 84100; 84145; 84443; 84484; 85018; 85025; 85027; 85055; 85380; 85610; 85730; 86140; 87040; 87086; 87186; 87635; 87637; 87641; 93005; 93970; 94002; 94003; 94640; 94667; 94669; 96365; 96366; 96367; 96375; 97161; 97166; 97530; 99285; A9270; G0378; J1650; J1815; J1836; J1940; J1956; J2185; J2919; J3370; J7030; J7512; P9041; Q9967

== ENCOUNTER 2024-10-27 05:25 | Inpatient (IN) | payer MEDICARE, MEDICAID, SELFPAY ==
[2024-10-27] VITALS (46 sets, daily range): BP systolic 100–170; BP diastolic 56–96; PULSE 88–123; RESP 14–222; TEMP 36.4–38.1; O2SAT 91–98; BMI 27.1
--- NOTE | ~2024-10-27 | XR_ITS ---
CORRECTED REPORT Moved images and report to [id number] from [id number] [facility] 10/30/24 This report was recreated on 10/30/24. Original report was IC SPECTROSCOPIST XR chest 1V portable Ordering provider: Aracely Courtney History: 78 years Male with . RESPIRATORY DISTRESS . Comparison: October 10, 2024 FINDINGS: MEDIASTINUM: The cardiac silhouette is slightly enlarged. Right Port-A-Cath with the tip overlying superior vena cava. Congestive lenny. LUNGS: No pneumothorax. Opacification in the right upper lobe suggestive of atelectasis versus pneumonia with possible effusion. Bilateral interstitial changes. OTHER: No free air under the diaphragm. IMPRESSION: No change from previous examination. Reviewed, dictated and finalized at location A. IC SPECTROSCOPIST MTDD
--- NOTE | ~2024-10-27 | CT_ITS ---
Clinical Indication: Hypoxia CT Scan of the Chest with Contrast: Technique: Contiguous sections were acquired throughout the chest after intravenous administration of 100 cc of Omnipaque 350. Dose reduction technique was used on this scan by utilizing automated expos ure control and iterative reconstruction technique. The dose-length product (DLP) was 625.55 mGy-cm. COMPARISON: 10/06/2024 Findings: There is no evidence of any significant mediastinal, hilar or axillary lymphadenopathy. There is no f illing defect in the pulmonary arterial tree to suggest pulmonary embolus. There is no evidence of ao rtic dissection or aneurysm. No pericardial effusion. Minimal left pleural effusion present. No right pleural effusion. Calcified posterior pleural plaque present. Stable dense consolidation and volume loss of the right upper lobe. There is extensive airspace conso lidation the left lower lobe with additional involvement more focally in the lingula. There is patchy right lower lobe airspace disease. Images through the upper abdomen reveal no abnormalities. Impression: No evidence of pulmonary embolus, aortic dissection, or aortic aneurysm. Extensive left lower lobe consolidation is more patchy involvement in the lingula and right lower lob e. Findings are suspicious for multifocal pneumonia. Stable dense consolidation volume loss of the right upper lobe, which could reflect chronic right upp er lobe atelectasis. Minimal left pleural effusion. Reviewed, dictated and finalized at location M. WR[employer] SUPER[employer] Impression: No evidence of pulmonary embolus, aortic dissection, or aortic aneurysm. Extensive left lower lobe consolidation is more patchy involvement in the lingu la and right lower lobe. Findings are suspicious for multifocal pneumonia. Stable dense consolidation volume loss of the right upper lobe, which could ref lect chronic right upper lobe atelectasis. Minimal left pleural effusion.
[2024-10-27 08:14] LABS: Basophils Percent Auto 0.3 % (0.2-1.2); Eosinophils Percent Auto 0.1 % (0-4.4); Hematocrit 43.2 % (42.0-52.0); Hemoglobin 13.5 g/dL (14.0-18.0); Immature Granulocyte Absolute 0.04 K/mm3 (0.00-0.031); Immature Granulocyte Percent A 0.5 % (0-0.5); Lymphocytes Absolute Auto 0.37 K/mm3 (0.9-3.2); Lymphocytes Percent Auto 4.9 % (18.3-44.2); Mean Corpuscular HGB Conc 31.3 g/dl (32-36); Mean Corpuscular Hemoglobin 30.3 pg (26-34); Mean Corpuscular Volume 96.9 fl (80-100); Mean Platelet Volume 10.2 fl (7.4-10.4); Monocytes Absolute Auto 0.2 K/mm3 (0.1-0.6); Monocytes Percent Auto 3.2 % (2.6-8.5); Neutrophils Absolute Auto 6.8 K/mm3 (1.3-6.7); Platelet Count Result 153 k/mm3 (150-375); Red Blood Count 4.46 M/mm3 (4.6-6.20); Red Cell Distribution Width 14.3 % (11.5-14.5); White Blood Count 7.5 K/mm3 (4.5-10.0)
[2024-10-27 08:15] LABS: INR 1.2; Partial Thromboplastin Time 31.3 Seconds (22.3-36.8); Prothrombin Time 15.8 Seconds (11.1-14.7)
[2024-10-27 08:49] LABS: D Dimer 2.78 ug/mL (<0.48)
--- NOTE | 2024-10-27 09:16 | ED_ITS ---
HPI - SOB/Dyspnea General Chief Complaint: Shortness of Breath/Dyspnea <Aracely Courtney MD - Last Filed: 10/27/24 10:33> Stated Complaint: dyspnea <Aracely Courtney MD - Last Filed: 10/27/24 10:33> Time Seen by Provider: 10/27/24 08:15 <Aracely Courtney MD - Last Filed: 10/27/24 10:33> Source: patient and EMS <Aracely Courtney MD - Last Filed: 10/27/24 10:33> Mode of arrival: EMS <Aracely Courtney MD - Last Filed: 10/27/24 10:33> Limitations: no limitations <Aracely Courtney MD - Last Filed: 10/27/24 10:33> History of Present Illness HPI Narrative: Patient presents with complaint of shortness of breath. Was reported that this started acutely but the patient states that he remembers throwing up and then became short of breath. He otherwise denies any cough, fevers, or chills although it was reported that he had a temperature of 99?. He is alert and oriented x3. He was found to be hypoxic in the 80s for EMS. He has left-sided chest pain. At baseline he uses 2 L supplemental oxygen via nasal cannula for diagnosis of COPD. EMS placed him on CPAP. In regards to cardiac risk factors: History of hypertension. Former smoker although quit 25 years ago. Denies history of hyperlipidemia. He is a diabetic. He does not know if he has a prior history of a myocardial infarction/TIA/CVA. Does not know if he has a family history of first-degree relative having a myocardial infarction before the age of 65. <Aracely Courtney MD - Last Filed: 10/27/24 10:33> Related Data Home Medications: Home Medications ?Medication ?Instructions ?Recorded ?Confirmed ?Last Taken ?Type ropinirole 1 mg tablet 1 mg PO HS 12/18/19 10/05/24 Unknown History bupropion HCl 300 mg 24 hr tablet, 150 mg PO DAILY 03/09/21 10/05/24 Unknown History extended release tamsulosin 0.4 mg capsule 0.4 mg PO HS 02/26/22 10/05/24 Unknown History albuterol sulfate 90 mcg/actuation 1 puff inhalation Q4H PRN 07/27/22 10/05/24 Unknown History aerosol inhaler Shortness Of Breath ondansetron 8 mg disintegrating 8 mg PO Q8H PRN Nausea 08/10/22 10/05/24 Unknown History tablet Pro-Stat Sugar Free 30 ml PO DAILY 03/23/23 10/05/24 Unknown History acetaminophen 325 mg tablet 650 mg PO Q6H PRN Pain, Mild 03/23/23 10/05/24 Unknown History ascorbic acid (vitamin C) 500 mg 500 mg PO BID 03/23/23 10/05/24 Unknown History tablet bisacodyl 5 mg tablet,delayed 10 mg PO BID 03/23/23 10/05/24 Unknown History release (Dulcolax (bisacodyl)) lactulose 10 gram/15 mL oral 20 g PO TID 03/23/23 10/05/24 Unknown History solution methadone 5 mg tablet 5 mg PO BID 03/23/23 10/05/24 Unknown History multivit with minerals-iron 18 1 tablet PO DAILY 03/23/23 10/05/24 Unknown History mg-folic ac 400 mcg-vit K 25 mcg tablet (Adults Multivitamin) levalbuterol HCl 1.25 mg/3 mL 1.25 mg inhalation Q6H PRN SOB 07/23/23 10/05/24 Unknown History solution for nebulization levothyroxine 25 mcg tablet 25 mcg PO DAILY 07/23/23 10/05/24 07/23/23 History polyethylene glycol 3350 17 gram 17 g PO DAILY PRN Constipation 07/23/23 10/05/24 Unknown History oral powder packet (Miralax) sucralfate 1 gram tablet (Carafate) 1 g PO TID 07/23/23 10/05/24 Unknown History trimethobenzamide 100 mg/mL 100 mg IM ONCE PRN migraines 07/23/23 10/05/24 Unknown History intramuscular solution (Tigan) fluoxetine 20 mg capsule 20 mg PO DAILY 06/28/24 10/05/24 Unknown History olanzapine 5 mg tablet 5 mg PO BID 06/28/24 10/05/24 Unknown History potassium chloride 20 mEq 20 meq PO BID 07/04/24 10/05/24 Unknown History tablet,extended release clopidogrel 75 mg tablet (Plavix) 75 mg PO DAILY 08/25/24 10/05/24 Unknown History diphenhydramine HCl 25 mg tablet 25 mg PO TID PRN allergies 08/25/24 10/05/24 Unknown History (Benadryl Allergy) mirtazapine 15 mg tablet (Remeron) 15 mg PO HS 08/25/24 10/05/24 Unknown History trospium 20 mg tablet 20 mg PO BID 08/25/24 10/05/24 Unknown History <Aracely Courtney MD - Last Filed: 10/27/24 10:33> Allergies/Adverse Reactions: Allergies Allergy/AdvReac Type Severity Reaction Status Date / Time Penicillins Allergy Unknown SHORTNESS Verified 10/05/24 08:35 OF BREATH <Aracely Courtney MD - Last Filed: 10/27/24 10:33> Review of Systems 2 Review of Systems: All systems reviewed & are unremarkable except as noted in HPI and below <Fiordaliza Melissa PA-C - Last Filed: 10/27/24 14:25> [facility] Past Medical History Medical History: Medical History (Updated 10/27/24 @ 14:25 by Fiordaliza Melissa PA-C) Major depressive disorder, recurrent, unspecified Acute cough Pneumonia, unspecified organism Acute respiratory failure with hypoxia Lung cancer Hypothyroidism Benign prostatic hyperplasia Obstructive sleep apnea Type 2 diabetes mellitus Chronic obstructive pulmonary disease Sacral decubitus ulcer Aortic valve stenosis Coronary artery disease (2019) Non-STEMI - left heart cath showed mild coronary artery disease with severe LV dysfunction EF 20% with possible underlying nonischemic cardiomyopathy, no PCI. Non-small cell carcinoma of lung Status post chemo radiation. Diabetes mellitus Fibromyalgia Chronic congestive heart failure Diabetic polyneuropathy associated with type 2 diabetes mellitus Depression Arthritis (03/26/19) Restless legs syndrome Atrial fibrillation with controlled ventricular rate Mixed hyperlipidemia <Aracely Courtney MD - Last Filed: 10/27/24 10:33> Surgical History Surgical History: Surgical History History of hernia repair Umbilical hernia repair. Bilateral inguinal hernia repairs. <Aracely Courtney MD - Last Filed: 10/27/24 10:33> Family History Family History: Family History Sibling Patient's sister is in good health Hypertension Family history of heart disease in male family member before age 55 Mother Family history of heart disease in male family member before age 55 Patient's mother is Family history of congestive heart failure, Onset Age: 70 Father Patient's father is Acute myocardial infarction, Onset Age: 62 Grandparent Depression Family history of arthritis Family history of malignant neoplasm of breast Family history of heart disease in male family member before age 55 Other Cerebrovascular accident Family history of cardiovascular disease <Aracely Courtney MD - Last Filed: 10/27/24 10:33> Social History Social History: Social History (Updated 10/27/24 @ 09:41 by Aracely Courtney MD) Social History: Code status: Modified code. No meds, no CPR. Okay with intubation. VERSUS DNR per [facility] documentation though POLST not dated Son Harshal Armstrong is POA and primary contact. [phone] Smoking packs per day: 3 Smoking cigarettes per day: 60.0 Years smoked: 30 Smoking pack-years: 90.00 Smoking status: Former smoker Tobacco type: cigarettes Second hand tobacco smoke exposure: Yes Alcohol intake: never Substance use: never Substance use type: does not use Do You Feel Safe in your Home?: Yes Lack of Transportation: No Lack of Food: Never True Current Housing: I Have Housing Concerned About Future Housing: No Difficulty Paying Gas/Electric Bills: No Difficulty Paying for Meds: No Currently Unemployed: No Education: Decline to Answer Difficulty w/ Childcare or Family Care: No Living arrangements: [facility] Additional living arrangements comments: [facility] Occupation/Education: retired Additional occupation/education comments: previously in [employer] Spiritual care concerns: No <Aracely Courtney MD - Last Filed: 10/27/24 10:33> Exam 2 Narrative: GENERAL:, well-nourished, in acute respiratory distress. HEAD: Normocephalic, atraumatic. EYES: Non injected, non icteric ENT: Nares clear, no rhinorrhea or epistaxis. NECK: Supple. CHEST: Speaking in 5-6 word sentences. Respiratory distress with tachypnea. CPAP transitioned to bipap. Coarse expiratory breath sounds with inspiratory wheezes bilaterally. HEART: Tachycardic rate and rhythm. . ABDOMEN: Soft, nondistended. EXTREMITIES: Normal range of motion. No lower extremity edema. SKIN: Warm, dry, no rash. NEURO: No focal deficits. Alert and oriented x3. PSYCH: Normal mood and affect. <Aracely Courtney MD - Last Filed: 10/27/24 10:33> Course Course Emergency Course: patient updated on workup and need for admission <Fiordaliza Melissa PA-C - Last Filed: 10/27/24 14:25> Consultations Consultation #1: Spoke with hospitalist about patient and workup who accepts admission < Fiordaliza Melissa PA-C - Last Filed: 10/27/24 14:25> Date: 10/27/24 <Fiordaliza Melissa PA-C - Last Filed: 10/27/24 14:25> Vital Signs Vital signs: Vital Signs Oxygen Delivery BiPAP 10/27/24 08:23 Temperature 100.5 F H 10/27/24 14:06 Pulse Rate 103 H 10/27/24 14:06 Respiratory Rate 22 H 10/27/24 14:06 Blood Pressure 106/69 10/27/24 14:06 Pulse Oximetry 96 10/27/24 14:06 Oxygen Delivery BiPAP 10/27/24 13:24 <Aracely Courtney MD - Last Filed: 10/27/24 10:33> Vital Signs Oxygen Delivery BiPAP 10/27/24 08:23 Temperature 100.5 F H 10/27/24 14:06 Pulse Rate 103 H 10/27/24 14:06 Respiratory Rate 22 H 10/27/24 14:06 Blood Pressure 106/69 10/27/24 14:06 Pulse Oximetry 96 10/27/24 14:06 Oxygen Delivery BiPAP 10/27/24 13:24 <Fiordaliza Melissa PA-C - Last Filed: 10/27/24 14:25> MDM - SOB/Dyspnea MDM Narrative Medical decision making narrative: Patient presents with reported shortness of breath that he states started acutely. It was reported that there were no inciting or previous events by the facility although patient states that he remembers throwing up before this. Reportedly he was borderline febrile with a temperature of 99?. Rectal temperature was requested by nursing staff to obtain. He otherwise is tachypneic and tachycardic. Patient has coarse expiratory sounds with inspiratory wheezes. History of COPD so will start with treating for this while evaluating other etiologies. HEART SCORE History 2 highly suspicious 1 moderately suspicious 0 slightly suspicious History score [address] depression/elevation not due to LBBB, LVH, or digoxin [address] depression but LBBB, LVH, nonspecific repolarization changes 0 normal ECG score 0 Age 2 >/= 65 1 45-64 0 <45 Age score 2 Risk factors (HTN, hypercholesterolemia, DM, obesity with BMI >30, current smoker or cessation </=3mo), positive fam hx with parent or sibling with CVD before age 65, atherosclerotic disease (prior PA, PCI/CABG, CVA/TIA, or peripheral arterial disease) 2 >/= 3 risk factors or history of atherosclerotic dz 1 - 1-2 risk factors 0 no known risk factors Risk factor score 2 (HTN, DM, HLD) Initial Troponin 2 >3 times normal limit 1 1-3 times normal limit 0 less than or equal to normal limit Troponin score 0 Total HEART Score 4 BAP-65 Score for Acute Exacerbation of COPD (predicts mortality in acute COPD exacerbation) BUN >/=25 mg/dL (No 0, Yes +1): 0 AMS (No 0, Yes +1): 0 Pulse >/=109 beats/min (No 0, Yes +1): 1 Age, years: 41-64 versus >/= 65: Result: Class III BAP 1, 2.2% inhospital mortality, 1.2% requiring intubation within 48 hours. Recommend inpatient admission. Patient's dimer is elevated. CT PE studies ordered. Patient signed out to PA pending this study being performed. Will need to be admitted after this, likely IMU given still on BIPAP, unless able to be downtitrated on readmission. <Aracely Courtney MD - Last Filed: 10/27/24 10:33> Patient presents with reported shortness of breath that he states started acutely. It was reported that there were no inciting or previous events by the facility although patient states that he remembers throwing up before this. Reportedly he was borderline febrile with a temperature of 99?. Rectal temperature was requested by nursing staff to obtain. He otherwise is tachypneic and tachycardic. Patient has coarse expiratory sounds with inspiratory wheezes. History of COPD so will start with treating for this while evaluating other etiologies. HEART SCORE History 2 highly suspicious 1 moderately suspicious 0 slightly suspicious History score [address] depression/elevation not due to LBBB, LVH, or digoxin [address] depression but LBBB, LVH, nonspecific repolarization changes 0 normal ECG score 0 Age 2 >/= 65 1 45-64 0 <45 Age score 2 Risk factors (HTN, hypercholesterolemia, DM, obesity with BMI >30, current smoker or cessation </=3mo), positive fam hx with parent or sibling with CVD before age 65, atherosclerotic disease (prior PA, PCI/CABG, CVA/TIA, or peripheral arterial disease) 2 >/= 3 risk factors or history of atherosclerotic dz 1 - 1-2 risk factors 0 no known risk factors Risk factor score 2 (HTN, DM, HLD) Initial Troponin 2 >3 times normal limit 1 1-3 times normal limit 0 less than or equal to normal limit Troponin score 0 Total HEART Score 4 BAP-65 Score for Acute Exacerbation of COPD (predicts mortality in acute COPD exacerbation) BUN >/=25 mg/dL (No 0, Yes +1): 0 AMS (No 0, Yes +1): 0 Pulse >/=109 beats/min (No 0, Yes +1): 1 Age, years: 41-64 versus >/= 65: Result: Class III BAP 1, 2.2% inhospital mortality, 1.2% requiring intubation within 48 hours. Recommend inpatient admission. Patient's dimer is elevated. CT PE studies ordered. Patient signed out to PA pending this study being performed. Will need to be admitted after this, likely IMU given still on BIPAP, unless able to be downtitrated on readmission. CTA showing no PE, dissection or aneurysm. Shows multifocal pneumonia. Minimal left pleural effusion. Spoke with hospitalist about patient and workup who accepts admission <Fiordaliza Melissa PA-C - Last Filed: 10/27/24 14:25> Differential Diagnosis Differential diagnosis: Likely acute exacerbation of chronic obstructive airways disease, community acquired pneumonia, pulmonary embolism and other (pneumonitis, pneumonia) <Aracely Courtney MD - Last Filed: 10/27/24 10:33> Lab Data Attestation: I reviewed the patient's lab results. <Aracely Courtney MD - Last Filed: 10/27/24 10:33> Lab results narrative: Hyperglycemia without anion gap acidosis <Aracely Courtney MD - Last Filed: 10/27/24 10:33> Result diagrams: 10/27/24 06:28 <Aracely Courtney MD - Last Filed: 10/27/24 10:33> Labs: Lab Results 10/27/24 10/27/24 10/27/24 Range/Units 06:27 06:28 08:20 Sodium 140 (137-145) mmol/L Potassium 4.6 (3.4-5.0) mmol/L Chloride 105 (98-107) mmol/L Carbon Dioxide 28 (22-30) mmol/L Anion Gap 7 (4-12) mmol/L BUN 23 H D (9-20) mg/dL Creatinine 0.90 (0.7-1.3) mg/dL Estim Creat Clear Calc Not Reportable Estimated GFR > 60 (59 - ) Glucose 210 H (65-110) mg/dL Lactic Acid 2.7 H 2.7 H (0.7-2.0) mmol/L Calcium 9.1 (8.4-10.2) mg/dL Magnesium 1.6 (1.6-2.3) mg/dL Total Bilirubin 0.7 (0.2-1.3) mg/dL AST 19 (17-59) U/L ALT 11 (6-50) U/L Alkaline Phosphatase 92 (38-126) U/L Troponin I < 0.012 (0.000-0.034) ng/mL NT-Pro-B Natriuret Pep 427 H (19.9-100) pg/mL Total Protein 7.0 (6.3-8.2) g/dL Albumin 3.3 L (3.5-5.1) g/dL Urine Color Dark yellow (Yellow) Urine Appearance Clear (Clear) Urine pH 5.0 (5.0-9.0) Ur Specific [place] 1.033 (1.001-1.035) Urine Protein 1+ H (Negative) mg/dL Urine Glucose (UA) Negative (Negative) mg/dL Urine Ketones 1+ H (Negative) mg/dL Ur Blood (Man) Negative (Negative) Urine Nitrate Negative (Negative) Urine Bilirubin Negative (Negative) Urine Urobilinogen 1.0 (<2.0) mg/dL Add Ur Microanalysis Reviewed Leukocyte Esterase Rfl 1+ H (Negative) NICKY/UL Urine RBC 0-2 (0-2) /hpf Urine WBC 11-20 H (0-3) /hpf Ur Squamous Epith Cells Few (Few) /hpf Calcium Oxalate Crystal Present (None) /hpf Urine Bacteria None seen /hpf Urine Casts 11-20 <Aracely Courtney MD - Last Filed: 10/27/24 10:33> Lab Results 10/27/24 10/27/24 10/27/24 Range/Units 06:27 06:28 08:20 Sodium 140 (137-145) mmol/L Potassium 4.6 (3.4-5.0) mmol/L Chloride 105 (98-107) mmol/L Carbon Dioxide 28 (22-30) mmol/L Anion Gap 7 (4-12) mmol/L BUN 23 H D (9-20) mg/dL Creatinine 0.90 (0.7-1.3) mg/dL Estim Creat Clear Calc Not Reportable Estimated GFR > 60 (59 - ) Glucose 210 H (65-110) mg/dL Lactic Acid 2.7 H 2.7 H (0.7-2.0) mmol/L Calcium 9.1 (8.4-10.2) mg/dL Magnesium 1.6 (1.6-2.3) mg/dL Total Bilirubin 0.7 (0.2-1.3) mg/dL AST 19 (17-59) U/L ALT 11 (6-50) U/L Alkaline Phosphatase 92 (38-126) U/L Troponin I < 0.012 (0.000-0.034) ng/mL NT-Pro-B Natriuret Pep 427 H (19.9-100) pg/mL Total Protein 7.0 (6.3-8.2) g/dL Albumin 3.3 L (3.5-5.1) g/dL Urine Color Dark yellow (Yellow) Urine Appearance Clear (Clear) Urine pH 5.0 (5.0-9.0) Ur Specific [place] 1.033 (1.001-1.035) Urine Protein 1+ H (Negative) mg/dL Urine Glucose (UA) Negative (Negative) mg/dL Urine Ketones 1+ H (Negative) mg/dL Ur Blood (Man) Negative (Negative) Urine Nitrate Negative (Negative) Urine Bilirubin Negative (Negative) Urine Urobilinogen 1.0 (<2.0) mg/dL Add Ur Microanalysis Reviewed Leukocyte Esterase Rfl 1+ H (Negative) NICKY/UL Urine RBC 0-2 (0-2) /hpf Urine WBC 11-20 H (0-3) /hpf Ur Squamous Epith Cells Few (Few) /hpf Calcium Oxalate Crystal Present (None) /hpf Urine Bacteria None seen /hpf Urine Casts 11-20 <Fiordaliza Melissa PA-C - Last Filed: 10/27/24 14:25> Imaging Data My impression: (Unable to load images to perform independent interpretation) <Aracely Courtney MD - Last Filed: 10/27/24 10:33> Radiologist's impression: No change from previous examination. <Aracely Courtney MD - Last Filed: 10/27/24 10:33> No change from previous examination. ITS Impressions Chest CTA 10/27/24 11:27 Impression: No evidence of pulmonary embolus, aortic dissection, or aortic aneurysm. Extensive left lower lobe consolidation is more patchy involvement in the lingula and right lower lobe. Findings are suspicious for multifocal pneumonia. Stable dense consolidation volume loss of the right upper lobe, which could reflect chronic right upper lobe atelectasis. Minimal left pleural effusion. <Fiordaliza Melissa PA-C - Last Filed: 10/27/24 14:25> ECG Data EKG #1: Attestation: I personally reviewed and interpreted this ECG as follows: < Aracely Courtney MD - Last Filed: 10/27/24 10:33> ECG completion date: 10/27/24 <Aracely Courtney MD - Last Filed: 10/27/24 10:33> ECG completion time: 05:46 <Aracely Courtney MD - Last Filed: 10/27/24 10:33> Interpretation: Sinus tachycardia at a rate of 121 beats per minute. FL interval is prolonged at 226 milliseconds consistent with a first-degree AV block. QRS 106. QT/QTC 336/408. Baseline quality of this EKG is poor limiting full interpretation. <Aracely Courtney MD - Last Filed: 10/27/24 10:33> Critical Care Time Critical Care Time Critical Care Time: Yes <Fiordaliza Melissa PA-C - Last Filed: 10/27/24 14:25> Total Critical Care Time: 35 <Fiordaliza Melissa PA-C - Last Filed: 10/27/24 14:25> Discharge Plan Discharge Clinical Impression: First degree AV block, Acute respiratory distress, Acidosis, lactic, Multifocal pneumonia Diabetes mellitus with hyperglycemia Qualifiers: Diabetes mellitus type: due to underlying condition Diabetes mellitus manager long term care insulin use: unspecified manager long term care insulin use status Qualified Code(s): E08.65 - Diabetes mellitus due to underlying condition with hyperglycemia <Aracely Courtney MD - Last Filed: 10/27/24 10:33> Patient Disposition: Still a Patient <Aracely Courtney MD - Last Filed: 10/27/24 10:33> Condition: Improved <Aracely Courtney MD - Last Filed: 10/27/24 10:33>
[2024-10-27 09:55] LABS: Troponin I < 0.012 ng/mL (0.000-0.034)
[2024-10-27 09:56] LABS: Lactic Acid Reflex 2.7 mmol/L (0.7-2.0)
[2024-10-27] MEDS: AZITHROMYCIN 500 MG/NS 250 ML 500 MG/250 ML BAG 250 MG IVPB (09:56)
[2024-10-27 09:57] LABS: Reflex Lactic Acid Yes or No Add Lactic
[2024-10-27 10:09] LABS: Add Urine Microscopic? YES; Appearance Urine Clear (Clear); Bacteria Urine None Seen /hpf; Bilirubin Urine Negative (Negative); Blood Urine Negative (Negative); Calcium Oxalate Crystals Urine Present /hpf; Color Urine Dark Yellow (Yellow); Glucose Urine UA Negative (Negative); Ketones Urine 1+ mg/dL (Negative); Leukocyte Esterase Ur 1+ LEU/UL (Negative); Need Manual Microscopic Reviewed; Nitrate Urine Negative (Negative); Protein Urine 1+ mg/dL (Negative); RBC Urine 0-2 /hpf (0-2); Specific Grav Ur 1.033 (1.001-1.035); Squamous Epithelial Cell Urine Few /hpf (Few)
[2024-10-27 10:14] LABS: Alanine Aminotransferase 11 U/L (6-50); Albumin Level 3.3 g/dL (3.5-5.1); Alkaline Phosphatase 92 U/L (38-126); Anion Gap 7 mmol/L (4-12); Aspartate Amino Transferase 19 U/L (17-59); Bilirubin,Total 0.7 mg/dL (0.2-1.3); Blood Urea Nitrogen 23 mg/dL (9-20); Calcium 9.1 mg/dL (8.4-10.2); Carbon Dioxide 28 mmol/L (22-30); Chloride 105 mmol/L (98-107); Estimated Glomerular Filt Rate > 60; Glucose 210 mg/dL (65-110); Magnesium 1.6 mg/dL (1.6-2.3); Potassium 4.6 mmol/L (3.4-5.0); Sodium 140 mmol/L (137-145)
[2024-10-27 10:21] LABS: NT Pro B Type Natriuretic Pept 427 pg/mL (19.9-100)
[2024-10-27] MEDS: SODIUM CHLORIDE 0.9% IV 1,000 ML 999 ML IV CONT ×2 (10:23)
[2024-10-27] MEDS: cefTRIAXone 2 GM/NS 100 ML 2 GM/100 ML BAG IVPB (11:03)
[2024-10-27] MEDS: MEROPENEM 1 GM/NS 100 ML 1 GM/100 ML BAG IVPB ×2 (12:37→18:08)
[2024-10-27] MEDS: ACETAMINOPHEN 650 MG SUPPOSITORY RECTAL (12:37)
[2024-10-27 12:44] LABS: Lactic Acid 2.7 mmol/L (0.7-2.0)
--- NOTE | 2024-10-27 13:00 | P.HP_ITS ---
H&P: HPI History of Present Illness Date/Time: 10/27/24 13:00 Chief Complaint: Shortness of breath. Narrative: This is an 78-year-old male with history of non-small cell lung cancer, chronic obstructive pulmonary disease, obstructive sleep apnea for which he has historically been noncompliant with CPAP, chronic respiratory failure with hypoxia on home oxygen, dysphagia with history of aspiration pneumonia, coronary artery disease, heart failure with preserved ejection fraction, paroxysmal atrial fibrillation on chronic anticoagulation, diet-controlled type 2 diabetes mellitus, and hypothyroidism who presented to the emergency department via EMS for evaluation of shortness of breath. The shortness of breath started rather suddenly this morning after an episode of emesis; he states he was not eating at the time and that occurred about the same time as when he awoke from sleep. He is otherwise feeling okay. He denies feeling feverish and also denies sinus congestion, sore throat, productive cough, chest pain, pleuritic pain, abdominal pain, and nausea. In the ED: EMS started him on CPAP and he was transitioned to BiPAP on arrival. Temperature was as high as 100.5? F. he has since been weaned to his chronic oxygen requirement. Blood pressures have been stable. Labs are significant for WBC count of 7.5, hemoglobin 13.5, D-dimer 2.78, BUN 23, creatinine 0.90, lactic acid 2.7, proBNP 427, troponin less than 0.012. Chest CTA showed no evidence of PE, dissection, or aneurysm. The he was found to have extensive left lower lobe consolidation and patchy involvement in the lingula and right lower lobe suspicious for multifocal pneumonia as well as a stable dense consolidation volume loss of the right upper lobe. He was given a dose of ceftriaxone, azithromycin, and meropenem and is being admitted in this setting. Review of Systems Review of Systems: 12 systems were reviewed and are negativ e except for as per HPI. [facility] Past Medical History Medical History (Updated 10/27/24 @ 22:04 by Yocasta Cole PA-C) Chronic anticoagulation Heart failure with preserved ejection fraction Type 2 diabetes mellitus Major depressive disorder, recurrent, unspecified Hypothyroidism Benign prostatic hyperplasia Obstructive sleep apnea Type 2 diabetes mellitus Chronic obstructive pulmonary disease Sacral decubitus ulcer Aortic valve stenosis Coronary artery disease (2019) Non-STEMI - left heart cath showed mild coronary artery disease with severe LV dysfunction EF 20% with possible underlying nonischemic cardiomyopathy, no PCI. Non-small cell carcinoma of lung Status post chemo radiation. Fibromyalgia Depression Arthritis (03/26/19) Restless legs syndrome Atrial fibrillation with controlled ventricular rate Mixed hyperlipidemia Surgical History Surgical History History of hernia repair Umbilical hernia repair. Bilateral inguinal hernia repairs. Family History Family History Sibling Patient's sister is in good health Hypertension Family history of heart disease in male family member before age 55 Mother Family history of heart disease in male family member before age 55 Patient's mother is Family history of congestive heart failure, Onset Age: 70 Father Patient's father is Acute myocardial infarction, Onset Age: 62 Grandparent Depression Family history of arthritis Family history of malignant neoplasm of breast Family history of heart disease in male family member before age 55 Other Cerebrovascular accident Family history of cardiovascular disease Social History Social History (Updated 10/27/24 @ 22:00 by Yocasta Cole PA-C) Social History: Code status: Do not resuscitate. Son Harshal Armstrong is POA and primary contact. [phone] Smoking packs per day: 3 Smoking cigarettes per day: 60.0 Years smoked: 30 Smoking pack-years: 90.00 Smoking status: Former smoker Tobacco type: cigarettes Second hand tobacco smoke exposure: Yes Alcohol intake: never Substance use: never Substance use type: does not use Do You Feel Safe in your Home?: Yes Lack of Transportation: No Lack of Food: Never True Current Housing: I Have Housing Concerned About Future Housing: No Difficulty Paying Gas/Electric Bills: No Difficulty Paying for Meds: No Currently Unemployed: No Education: Decline to Answer Difficulty w/ Childcare or Family Care: No Living arrangements: penit[facility]iary Additional living arrangements comments: [facility] Occupation/Education: retired Additional occupation/education comments: previously in [employer] Spiritual care concerns: No Meds Home Medications and Allergies Home Medications ?Medication ?Instructions ?Recorded ?Confirmed ?Type ropinirole 1 mg tablet 1 mg PO HS 12/18/19 10/05/24 History bupropion HCl 300 mg 24 hr tablet, 150 mg PO DAILY 03/09/21 10/05/24 History extended release tamsulosin 0.4 mg capsule 0.4 mg PO HS 02/26/22 10/05/24 History gabapentin 100 mg capsule 100 mg PO TID #90 caps 06/12/22 10/05/24 Rx albuterol sulfate 90 mcg/actuation 1 puff inhalation Q4H PRN 07/27/22 10/05/24 History aerosol inhaler Shortness Of Breath ondansetron 8 mg disintegrating 8 mg PO Q8H PRN Nausea 08/10/22 10/05/24 History tablet Pro-Stat Sugar Free 30 ml PO DAILY 03/23/23 10/05/24 History acetaminophen 325 mg tablet 650 mg PO Q6H PRN Pain, Mild 03/23/23 10/05/24 History ascorbic acid (vitamin C) 500 mg 500 mg PO BID 03/23/23 10/05/24 History tablet bisacodyl 5 mg tablet,delayed 10 mg PO BID 03/23/23 10/05/24 History release (Dulcolax (bisacodyl)) lactulose 10 gram/15 mL oral 20 g PO TID 03/23/23 10/05/24 History solution methadone 5 mg tablet 5 mg PO BID 03/23/23 10/05/24 History multivit with minerals-iron 18 1 tablet PO DAILY 03/23/23 10/05/24 History mg-folic ac 400 mcg-vit K 25 mcg tablet (Adults Multivitamin) bisacodyl 10 mg rectal suppository 10 mg RECTAL DAILY PRN 04/01/23 10/05/24 Rx Constipation #12 ea levalbuterol HCl 1.25 mg/3 mL 1.25 mg inhalation Q6H PRN SOB 07/23/23 10/05/24 History solution for nebulization levothyroxine 25 mcg tablet 25 mcg PO DAILY 07/23/23 10/05/24 History polyethylene glycol 3350 17 gram 17 g PO DAILY PRN Constipation 07/23/23 10/05/24 History oral powder packet (Miralax) sucralfate 1 gram tablet (Carafate) 1 g PO TID 07/23/23 10/05/24 History trimethobenzamide 100 mg/mL 100 mg IM ONCE PRN migraines 07/23/23 10/05/24 History intramuscular solution (Tigan) pantoprazole 40 mg tablet,delayed 40 mg PO QAM #30 tabs 08/12/23 10/05/24 Rx release fluoxetine 20 mg capsule 20 mg PO DAILY 06/28/24 10/05/24 History olanzapine 5 mg tablet 5 mg PO BID 06/28/24 10/05/24 History Symbicort 2 puff inhalation BID #1 applicator 07/04/24 10/05/24 Rx ipratropium bromide 0.02 % 0.5 mg (2.5 mL) inhalation TID #75 07/04/24 10/05/24 Rx solution for inhalation mL potassium chloride 20 mEq 20 meq PO BID 07/04/24 10/05/24 History tablet,extended release clopidogrel 75 mg tablet (Plavix) 75 mg PO DAILY 08/25/24 10/05/24 History diphenhydramine HCl 25 mg tablet 25 mg PO TID PRN allergies 08/25/24 10/05/24 History (Benadryl Allergy) mirtazapine 15 mg tablet (Remeron) 15 mg PO HS 08/25/24 10/05/24 History trospium 20 mg tablet 20 mg PO BID 08/25/24 10/05/24 History apixaban 5 mg tablet (Eliquis) 5 mg PO Q12HR #90 tabs 10/13/24 Rx apixaban 5 mg tablet (Eliquis) 10 mg (2 x 5 mg) PO Q12HR #5 tabs 10/13/24 Rx bisacodyl 5 mg tablet,delayed 5 mg PO QAM #30 tabs 10/13/24 Rx release (Laxative (bisacodyl)) Allergies Allergy/AdvReac Type Severity Reaction Status Date / Time Penicillins Allergy Unknown SHORTNESS Verified 10/05/24 08:35 OF BREATH Vital Signs Vital Signs - 24 hr 10/27/24 08:23 10/27/24 09:01 10/27/24 09:50 Temperature Pulse Rate 123 H 117 H Respiratory Rate 20 14 Blood Pressure 103/82 108/74 Pulse Oximetry 95 Oxygen Delivery BiPAP 10/27/24 09:54 10/27/24 10:58 10/27/24 11:20 Temperature 97.6 F Pulse Rate 116 H 104 H 102 H Respiratory Rate 26 H 25 H 16 Blood Pressure 107/68 Pulse Oximetry 95 96 97 Oxygen Delivery BiPAP BiPAP 10/27/24 12:07 10/27/24 12:26 10/27/24 12:37 Temperature 100.2 F H 100.2 F H Pulse Rate 104 H 104 H Respiratory Rate 15 24 H Blood Pressure 170/72 H Pulse Oximetry 97 97 Oxygen Delivery BiPAP Exam Narrative: General: Chronically ill-appearing male sitting up in bed on BiPAP in no distress. Weight: 86 kg. BMI: 27.2. HEENT: PERRL, EOMI. Sclera anicteric. Oral mucosa appears tacky through the BiPAP. Neck: Supple. Supple. No obvious JVD. Respiratory: Tolerating BiPAP. He does not appear in distress. Lung sounds are diminished at the left base with scattered crackles. Cardiovascular: Regular rate and rhythm with S1-S2. Systolic murmur at the upper sternal border. Gastrointestinal: Abdomen is soft, nontender, and nondistended with positive bowel sounds. Skin: Warm and dry. Extremities: No cyanosis, clubbing, or edema. Radial and pedal pulses intact. Neurological: Alert. Cranial nerves 2-12 are grossly intact. He has some tremors of the hands. No gross focal deficits to casual conversation. Psychiatric: Pleasant and cooperative with normal mood and affect. H&P: Results Labs Labs: BMP 10/27/24 06:28 Sodium 140 Potassium 4.6 Chloride 105 Carbon Dioxide 28 BUN 23 H D Creatinine 0.90 Glucose 210 H Calcium 9.1 Cardiac Enzymes 10/27/24 Range/Units 06:28 Troponin I < 0.012 (0.000-0.034) ng/mL Liver Function 10/27/24 Range/Units 06:28 Total Bilirubin 0.7 (0.2-1.3) mg/dL AST 19 (17-59) U/L ALT 11 (6-50) U/L Alkaline Phosphatase 92 (38-126) U/L Albumin 3.3 L (3.5-5.1) g/dL Urine 10/27/24 Range/Units 08:20 Urine Color Dark yellow (Yellow) Urine Appearance Clear (Clear) Urine pH 5.0 (5.0-9.0) Ur Specific [place] 1.033 (1.001-1.035) Urine Protein 1+ H (Negative) mg/dL Urine Glucose (UA) Negative (Negative) mg/dL Impressions Chest CTA 10/27/24 11:27 Impression: No evidence of pulmonary embolus, aortic dissection, or aortic aneurysm. Extensive left lower lobe consolidation is more patchy involvement in the lingula and right lower lobe. Findings are suspicious for multifocal pneumonia. Stable dense consolidation volume loss of the right upper lobe, which could reflect chronic right upper lobe atelectasis. Minimal left pleural effusion. Assessment and Plan Assessment and plan (1) Sepsis: Code(s): A41.9 - Sepsis, unspecified organism Status: Acute (2) Multifocal pneumonia: Code(s): J18.9 - Pneumonia, unspecified organism Status: Acute (3) Acute and chronic respiratory failure with hypoxia: Code(s): J96.21 - Acute and chronic respiratory failure with hypoxia Status: Acute (4) Heart failure with preserved ejection fraction: Code(s): I50.30 - Unspecified diastolic (congestive) heart failure Status: Acute (5) Chronic anticoagulation: Code(s): Z79.01 - mill attendant (current) use of anticoagulants Status: Acute (6) Obstructive sleep apnea: Code(s): G47.33 - Obstructive sleep apnea (adult) (pediatric) Status: Acute Plan The patient presented to the emergency department for evaluation of shortness of breath following an episode of emesis as detailed in HPI. Labs, imaging, EKG, and all reports were personally reviewed. He technically meets sepsis criteria with fever, tachycardia, tachypnea, and elevated lactic acid level. Blood pressures have been stable. Blood cultures are pending. He received azithromycin, ceftriaxone, and meropenem in the emergency department. Switch to ceftriaxone and metronidazole. Doubt atypical pneumonia. Sputum culture has been ordered. Initiate aspiration precautions. Continue minced and moist diet with mildly thickened liquids and consult speech therapy again. He appears euvolemic on exam. At this time he is at his baseline oxygen requirement. Continue BiPAP p.r.n. and while asleep. Diabetes is diet controlled with a recent A1c of 4.5% though today's glucose was 210. Initiate sliding scale insulin, Accu-Cheks, and hypoglycemic protocol. His home medications will be reviewed and resumed as appropriate. Findings and treatment plan were discussed with the patient. Questions were solicited and answered to satisfaction. The patient's medical management will be taken over by the hospitalist team in a.m. Quality VTE Prophylaxis VTE prophylaxis: pharmacologic ordered (on apixaban) The patient has been admitted under observation status. Hospitalist [facility] Advance Care Plan I have confirmed that the patient's Advanced Care Plan is present, code status is documented, or surrogate decision maker is listed in patient medical record.: Yes Medication Reconciliation I have utilized all available resources to obtain, update and review the patients current medications (includes all prescriptions, OTC, herbals, can nabis, and nutritional supplements).: Yes
[2024-10-27] MEDS: IPRATROPIUM 0.5 MG/ALBUTEROL SULFATE 2.5 MG AMPUL.NEB 3 ML INHALATION ×2 (13:24→20:27)
[2024-10-27] MEDS: HEIGHT/WEIGHT - PLEASE ENTER XX (14:03)
[2024-10-27] MEDS: IBUPROFEN IV 400 MG in SODIUM CHLORIDE 0.9% IV 100 ML 208 MG IVPB (14:45)
[2024-10-27 16:38] LABS: Alveolar/Arterial O2 Gradient 86.3 mmHg; Base Excess ABG -2.8 mEq/l (+/-2.0); Carboxyhemoglobin 1.3 % THb (0-2.0); Device NON-INVASIVE VENT; Fractional Inspired Oxygen 30 %; HCO3 ABG 22.8 mEq/l (22.0-26.0); Methemoglobin ABG 0.1 %THb (0-1.5); Modified Allen's Test Pass; Oxygen Content ABG 16.6 %vol (16.0-22.0); Oxygen Saturation ABG 94.7 % (95.0-100.0); PO2 ABG 77.1 mmHg (80.0-100.0); PO2 FiO2 Ratio Arterial Blood 2.57 %; Reduced Hemoglobin 4.6 %THb (0-5.0); Site Drawn RIGHT RADIAL; Total Hemoglobin 12.5 g/dL (12.0-18.0); pH ABG 7.343 (7.350-7.450)
[2024-10-27 16:39] LABS: Non-Invasive Expiratory Pressure 8 CMH2O; Non-Invasive Inspiratory Pressure 12 CMH2O; Non-Invasive Vent Rate 16 /MIN
[2024-10-27] MEDS: metroNIDAZOLE 500 MG/ISO 100ML 500 MG/100 ML BAG 100 MG IVPB (23:35)
[2024-10-28] VITALS (23 sets, daily range): BP systolic 93–129; BP diastolic 45–69; PULSE 54–100; RESP 14–22; TEMP 36.6–37.3; O2SAT 90–100; BMI 27.0
[2024-10-28 00:37] LABS: Influenza A QL RT-PCR Negative (Negative); Influenza B QL RT-PCR Negative (Negative); SARS-CoV-2 RNA PCR Negative (Negative)
[2024-10-28 00:57] LABS: Glucose Point of Care 163 mg/dl (65-105)
[2024-10-28 01:26] LABS: MRSA (PCR) DETECTED (NOT DETECTE)
[2024-10-28] MEDS: IPRATROPIUM 0.5 MG/ALBUTEROL SULFATE 2.5 MG AMPUL.NEB 3 ML INHALATION ×4 (02:29→21:34)
[2024-10-28 05:19] LABS: Hemoglobin 10.4 g/dL (14.0-18.0); Mean Corpuscular HGB Conc 31.5 g/dl (32-36); Mean Corpuscular Hemoglobin 30.4 pg (26-34); Mean Corpuscular Volume 96.5 fl (80-100); Mean Platelet Volume 10.1 fl (7.4-10.4); Platelet Count Result 108 k/mm3 (150-375); Red Blood Count 3.42 M/mm3 (4.6-6.20); Red Cell Distribution Width 14.6 % (11.5-14.5); White Blood Count 8.8 K/mm3 (4.5-10.0)
[2024-10-28] MEDS: metroNIDAZOLE 500 MG/ISO 100ML 500 MG/100 ML BAG 100 MG IVPB (05:38)
[2024-10-28 05:59] LABS: Anion Gap 3 mmol/L (4-12); Blood Urea Nitrogen 29 mg/dL (9-20); Calcium 7.8 mg/dL (8.4-10.2); Carbon Dioxide 29 mmol/L (22-30); Chloride 110 mmol/L (98-107); Estimated CRCL calculation 66 ml/min; Estimated Glomerular Filt Rate > 60; Glucose 118 mg/dL (65-110); Magnesium 1.8 mg/dL (1.6-2.3); Sodium 142 mmol/L (137-145)
[2024-10-28 07:01] LABS: Glucose Point of Care 126 mg/dl (65-105)
[2024-10-28] MEDS: guaiFENesin 12 HR 600 MG TABCR 1200 MG PO ×2 (08:11→21:45)
--- NOTE | 2024-10-28 10:00 | P.PNIM_ITS ---
Progress Note: A&P Assessment and Plan (1) Sepsis: Code(s): A41.9 - Sepsis, unspecified organism Status: Acute Assessment and Plan: * Meeting sepsis criteria with fever, tachycardia, tachypnea, elevated lactic a zackery, pneumonia * Received 1 L of normal saline while in the ED * Blood and urine cultures obtained and pending * Continue Rocephin and azithromycin * Respiratory panel negative for Influenza A and B, COVID * UA showing 1+ Leukocytes, 11-20 WBC's. * White blood cell count 7.5 on admission, lactic acid * Will recheck lactic acid today * Vital signs are stable, he is back down to his baseline oxygen requirement, T- max 99.6? in the past 24 hours. * Move out of IMU to regular medical floor (2) Multifocal pneumonia: Code(s): J18.9 - Pneumonia, unspecified organism Status: Acute Assessment and Plan: * CTA showing left lower lobe consolidation with patchy involvement in the lingula and the right lower lobe suspicious for multifocal pneumonia * Urine Legionella, urine strep, mycoplasma ordered * Received meropenem, Rocephin, azithromycin while in the ED * Continue Rocephin and Azithromycin * Flagyl discontinued * Continue Duonebs (3) Acute and chronic respiratory failure with hypoxia: Code(s): J96.21 - Acute and chronic respiratory failure with hypoxia Status: Acute Assessment and Plan: see above (4) Heart failure with preserved ejection fraction: Code(s): I50.30 - Unspecified diastolic (congestive) heart failure Status: Acute Assessment and Plan: * Last echo reviewed and showed normal LV systolic function with an estimated EF of 55-60%, grade 1 diastolic dysfunction (5) Chronic anticoagulation: Code(s): Z79.01 - USP (current) use of anticoagulants Status: Acute Assessment and Plan: * Continue Eliquis (6) Obstructive sleep apnea: Code(s): G47.33 - Obstructive sleep apnea (adult) (pediatric) Status: Acute Assessment and Plan: * Continue BiPAP at night Time Spent With Patient Time with patient: Greater than 35 minutes Subjective Date/time seen: 10/28/24 10:00 Interval history: Interval history: This is an 78-year-old male who presented to the hospital on 10/27/2024 with shortness of breath. Workup in the hospital included chest x-ray which shown an opacification in the right upper lobe suggestive of atelectasis versus pneumonia, bilateral interstitial changes. Chest CTA showed extensive left lower lobe consolidation for patchy involvement in the lingula and right lower lobe, suspicious for multifocal pneumonia, stable dense consolidation volume loss of the right upper lobe. Initial labs showed a normal white blood cell count of 7.5, hemoglobin 13.5, lactic acid 2.7, magnesium 1.6, troponin negative, proBNP 427. A UA was obtained and showed 1+ urine protein, 1+ urine ketone, 1+ leukocyte, 11-20 urine WBC, 11-20 urine cast. MRSA was positive. Respiratory panel was negative for influenza a and B, and COVID. Urine strep, u rine Legionella, mycoplasma are all pending. ABG showed a pH of 7.343, PO2 77.1. Blood and urine cultures were obtained and pending. Patient was given 1 L normal saline, Rocephin, azithromycin, meropenem while in the ED. Subjective: Patient denies any fever, chills, nausea, vomiting, diarrhea, abdominal pain, chest pain, or shortness of breath. Labs and imaging reviewed. Review of Systems Review of Systems: All systems reviewed & are unremarkable except as noted in HPI and below Constitutional: Constitutional: Reports as per HPI and Reports no additional constitutional complaints Eyes: Eyes: Reports as per HPI and Reports no additional eye complaints ENT: Reports system reviewed and no additional complaints, except as documented and Reports as per HPI Cardiovascular: Cardiovascular: Reports as per HPI and Reports no additional cardiovascular complaints Respiratory: Respiratory: Reports as per HPI and Reports no additional respiratory complaints Gastrointestinal: Gastrointestinal: Reports as per HPI and Reports no additional gastrointestinal complaints Genitourinary: Genitourinary: Reports no additional male genitourinary complaints and Reports as per HPI Musculoskeletal: Musculoskeletal: Reports no additional musculoskeletal complaints and Reports as per HPI Integumentary/Breasts: Skin/Breast: Reports system reviewed and no additional complaints, except as docu and Reports as per HPI Neurologic: Reports system reviewed and no additional complaints, except as documented and Reports as per HPI Psychiatric: Psychiatric: Reports no additional psychiatric complaints and Reports as per HPI Exam Narrative: General: In no acute distress, well nourished Head: atraumatic, no encephalopathy Eyes: PERRLA, sclera clear ENT: dry mucous membranes, nasal passages clear Neck: supple, no JVD, no adenopathy, trachea midline Cardiac: Normal S1 and S2. No murmur, gallops or friction rubs, peripheral pulses intact. Respiratory: BLL crackles with expiratory wheezing, currently on 2L NC Gastrointestinal: soft, non-distended, non-tender, normoactive bowel sounds. : chronic corral in place Extremities: moves all extremities well, no edema Skin: clean, dry, intact. No wounds or lesions. Neuro: Alert and oriented x4, cranial nerves intact, no neuro deficits. Psych: normal mood, normal affect, interactive Objective Data Vital Signs Vital Signs: Vital Signs - 24 hr 10/27/24 10:58 10/27/24 11:20 10/27/24 12:07 Temperature 97.6 F 100.2 F H Pulse Rate 104 H 102 H 104 H Respiratory Rate 25 H 16 15 Blood Pressure 107/68 170/72 H Pulse Oximetry 96 97 97 Oxygen Delivery BiPAP Oxygen Flow Rate Fraction of Inspired Oxygen 10/27/24 12:26 10/27/24 12:37 10/27/24 13:01 Temperature 100.2 F H Pulse Rate 104 H 102 H Respiratory Rate 24 H 24 H Blood Pressure 122/67 Pulse Oximetry 97 96 Oxygen Delivery BiPAP Oxygen Flow Rate Fraction of Inspired Oxygen 10/27/24 13:16 10/27/24 13:24 10/27/24 13:24 Temperature Pulse Rate 101 H 101 H 101 H Respiratory Rate 19 24 H 24 H Blood Pressure 108/67 Pulse Oximetry 95 97 Oxygen Delivery BiPAP Oxygen Flow Rate Fraction of Inspired Oxygen 10/27/24 13:31 10/27/24 13:33 10/27/24 13:37 Temperature 100.5 F H Pulse Rate 102 H 102 H Respiratory Rate 20 24 H Blood Pressure 104/70 Pulse Oximetry 95 Oxygen Delivery Oxygen Flow Rate Fraction of Inspired Oxygen 10/27/24 13:46 10/27/24 14:06 10/27/24 14:16 Temperature 100.5 F H Pulse Rate 103 H 103 H 104 H Respiratory Rate 22 H 22 H 18 Blood Pressure 107/68 106/69 106/67 Pulse Oximetry 95 96 96 Oxygen Delivery Oxygen Flow Rate Fraction of Inspired Oxygen 10/27/24 14:31 10/27/24 14:45 10/27/24 14:47 Temperature 100.1 F H 100.1 F H Pulse Rate 103 H 103 H Respiratory Rate 21 H 20 Blood Pressure 108/66 109/67 Pulse Oximetry 97 96 Oxygen Delivery Oxygen Flow Rate Fraction of Inspired Oxygen 10/27/24 15:01 10/27/24 15:30 10/27/24 15:46 Temperature 99.9 F H Pulse Rate 104 H 100 98 Respiratory Rate 25 H 20 21 H Blood Pressure 109/82 106/68 115/69 Pulse Oximetry 91 96 95 Oxygen Delivery Oxygen Flow Rate Fraction of Inspired Oxygen 10/27/24 16:01 10/27/24 16:15 10/27/24 16:22 Temperature 99.6 F 99.5 F Pulse Rate 97 95 Respiratory Rate 24 H 19 Blood Pressure 100/58 L 102/63 Pulse Oximetry 95 95 Oxygen Delivery Oxygen Flow Rate Fraction of Inspired Oxygen 10/27/24 16:35 10/27/24 16:45 10/27/24 17:09 Temperature Pulse Rate 96 91 Respiratory Rate 22 H 222 H Blood Pressure Pulse Oximetry 95 95 94 Oxygen Delivery BiPAP Nasal Cannula BiPAP Oxygen Flow Rate 2 Fraction of Inspired Oxygen 10/27/24 17:14 10/27/24 17:15 10/27/24 17:16 Temperature 99.0 F Pulse Rate 91 91 92 Respiratory Rate 19 19 22 H Blood Pressure 103/63 103/63 106/66 Pulse Oximetry 94 93 93 Oxygen Delivery Oxygen Flow Rate Fraction of Inspired Oxygen 10/27/24 17:31 10/27/24 17:35 10/27/24 18:01 Temperature Pulse Rate 95 95 Respiratory Rate 24 H 25 H Blood Pressure 140/84 113/96 H Pulse Oximetry 95 95 96 Oxygen Delivery Nasal Cannula Oxygen Flow Rate 2 Fraction of Inspired Oxygen 10/27/24 18:16 10/27/24 18:31 10/27/24 20:00 Temperature Pulse Rate 98 99 Respiratory Rate 24 H 29 H Blood Pressure 117/85 111/56 L Pulse Oximetry 96 93 93 Oxygen Delivery Nasal Cannula Oxygen Flow Rate 2 Fraction of Inspired Oxygen 10/27/24 20:00 10/27/24 20:28 10/27/24 20:32 Temperature Pulse Rate 95 97 Respiratory Rate 24 H Blood Pressure Pulse Oximetry 96 Oxygen Delivery Nasal Cannula Oxygen Flow Rate 2 Fraction of Inspired Oxygen 10/27/24 20:35 10/27/24 20:49 10/27/24 22:45 Temperature 98.7 F Pulse Rate 95 99 88 Respiratory Rate 24 H 20 23 H Blood Pressure 104/68 Pulse Oximetry 98 96 Oxygen Delivery BiPAP Oxygen Flow Rate Fraction of Inspired Oxygen 10/28/24 00:00 10/28/24 00:00 10/28/24 00:27 Temperature 97.8 F Pulse Rate 86 86 Respiratory Rate 20 Blood Pressure 93/45 L Pulse Oximetry 98 98 Oxygen Delivery BiPAP Oxygen Flow Rate Fraction of Inspired Oxygen 30 10/28/24 02:29 10/28/24 02:41 10/28/24 03:55 Temperature Pulse Rate 84 84 Respiratory Rate 22 H 20 Blood Pressure Pulse Oximetry 98 Oxygen Delivery Nasal Cannula Oxygen Flow Rate 2 Fraction of Inspired Oxygen 10/28/24 04:00 10/28/24 06:06 10/28/24 08:13 Temperature 97.8 F Pulse Rate 88 60 89 Respiratory Rate 20 22 H Blood Pressure 124/64 Pulse Oximetry 100 Oxygen Delivery Oxygen Flow Rate Fraction of Inspired Oxygen 10/28/24 08:14 10/28/24 08:14 10/28/24 08:22 Temperature 97.8 F Pulse Rate 54 L 90 Respiratory Rate 18 22 H Blood Pressure 129/69 Pulse Oximetry 90 99 Oxygen Delivery Nasal Cannula Oxygen Flow Rate 2 Fraction of Inspired Oxygen 28 Intake/Output Intake/Output: Intake & Output 10/25/24 10/26/24 10/27/24 10/28/24 23:59 23:59 23:59 23:59 Intake Total 2654 440 Output Total 400 600 Balance 2254 -160 Meds/Results Medications: Active Medications Generic Name Dose Route Start Last Admin Trade Name Freq PRN Reason Stop Dose Admin Acetaminophen 650 mg 10/27/24 22:18 Acetaminophen 325 Mg Tablet PO Q6H PRN Mild Pain (1-3) or Fever Albuterol/Ipratropium 3 ml 10/27/24 14:00 10/28/24 08:10 Ipratropium 0.5 Mg/Albuterol Sulfate 2.5 Mg Ampul.Neb 3 Ml INHALATION 3 ml Q6HRT JILLIAN Administration Dextrose 12.5 gm 10/27/24 22:18 Dextrose 50% 25 Gm/50 Ml Syringe IV PUSH PRN PRN Hypoglycemia Protocol Glucagon 1 mg 10/27/24 22:18 Glucagon For Inj 1 Mg Vial IM PRN PRN Hypoglycemia Protocol Glucose 15 gm 10/27/24 22:18 Glucose Oral Gel 15 Gm Of Glucse In 37.5 Gm Tube PO PRN PRN Hypoglycemia Protocol Guaifenesin 1,200 mg 10/28/24 09:00 10/28/24 08:11 Guaifenesin 12 Hr 600 Mg Tabcr PO 1,200 mg Q12HR JILLIAN Administration Ceftriaxone Sodium 1 gm in 50 mls @ 100 mls/hr 10/28/24 11:00 Rocephin 1 Gm/Ns 50 Ml IVPB Q24H JILLIAN Metronidazole 500 mg in 100 mls @ 100 mls/hr 10/27/24 22:25 10/28/24 07:25 Flagyl 500 Mg/Iso Soln 100 Ml IVPB Infused Q8HR JILLIAN Infusion Dextrose 1,000 mls @ 100 mls/hr 10/27/24 22:18 Dextrose 5% 1,000 Ml IVPB PRN PRN Hypoglycemia Protocol Insulin Aspart 2 - 5 units 10/28/24 08:00 10/28/24 08:12 Insulin Aspart (*Bkc) 100 Units/Ml SUB-Q Not Given TIDWM JILLIAN Protocol Insulin Aspart 1 - 2 units 10/28/24 21:00 Insulin Aspart (*Bkc) 100 Units/Ml SUB-Q HS JILLIAN Protocol Radiology Results: ITS Impressions Chest CTA 10/27/24 11:27 Impression: No evidence of pulmonary embolus, aortic dissection, or aortic aneurysm. Extensive left lower lobe consolidation is more patchy involvement in the lingula and right lower lobe. Findings are suspicious for multifocal pneumonia. Stable dense consolidation volume loss of the right upper lobe, which could reflect chronic right upper lobe atelectasis. Minimal left pleural effusion. Labs Labs: Laboratory Results - last 24 hr 10/27/24 10/27/24 10/27/24 06:27 06:28 08:20 WBC RBC Hgb Hct MCV MCH MCHC RDW Plt Count MPV Puncture Site ABG pH ABG pCO2 ABG pO2 ABG PO2/FiO2 Ratio ABG HCO3 ABG O2 Saturation ABG O2 Content ABG Base Excess A-a Gradient Oxyhemoglobin Carboxyhemoglobin Methemoglobin Reduced Hemoglobin Total Hemoglobin O2 Delivery Device O2 Liters/Min Vent Rate FiO2 Expiratory Pressure Inspiratory Pressure Sodium 140 Potassium 4.6 Chloride 105 Carbon Dioxide 28 Anion Gap 7 BUN 23 H D Creatinine 0.90 Estim Creat Clear Calc Not Reportable Estimated GFR > 60 Glucose 210 H POC Capillary Glucose Lactic Acid 2.7 H Calcium 9.1 Magnesium 1.6 Total Bilirubin 0.7 AST 19 ALT 11 Alkaline Phosphatase 92 NT-Pro-B Natriuret Pep 427 H Total Protein 7.0 Albumin 3.3 L Urine Color Dark yellow Urine Appearance Clear Urine pH 5.0 Ur Specific [place] 1.033 Urine Protein 1+ H Urine Glucose (UA) Negative Urine Ketones 1+ H Ur Blood (Man) Negative Urine Nitrate Negative Urine Bilirubin Negative Urine Urobilinogen 1.0 Add Ur Microanalysis Reviewed Leukocyte Esterase Rfl 1+ H Urine RBC 0-2 Urine WBC 11-20 H Ur Squamous Epith Cells Few Calcium Oxalate Crystal Present Urine Bacteria None seen Urine Casts 11-20 Nasal MRSA (PCR) Influenza A (RT-PCR) Influenza B (RT-PCR) SARS-CoV-2 RNA (RT-PCR) 10/27/24 10/27/24 10/27/24 16:36 23:37 23:46 WBC RBC Hgb Hct MCV MCH MCHC RDW Plt Count MPV Puncture Site Right radial ABG pH 7.343 L ABG pCO2 43.0 ABG pO2 77.1 L ABG PO2/FiO2 Ratio 2.57 ABG HCO3 22.8 ABG O2 Saturation 94.7 L ABG O2 Content 16.6 ABG Base Excess -2.8 A-a Gradient 86.3 Oxyhemoglobin 94.0 Carboxyhemoglobin 1.3 Methemoglobin 0.1 Reduced Hemoglobin 4.6 Total Hemoglobin 12.5 O2 Delivery Device Non-invasive vent O2 Liters/Min Not Reportable Vent Rate 16 FiO2 30 Expiratory Pressure 8 Inspiratory Pressure 12 Sodium Potassium Chloride Carbon Dioxide Anion Gap BUN Creatinine Estim Creat Clear Calc Estimated GFR Glucose POC Capillary Glucose 163 H Lactic Acid Calcium Magnesium Total Bilirubin AST ALT Alkaline Phosphatase NT-Pro-B Natriuret Pep Total Protein Albumin Urine Color Urine Appearance Urine pH Ur Specific [place] Urine Protein Urine Glucose (UA) Urine Ketones Ur Blood (Man) Urine Nitrate Urine Bilirubin Urine Urobilinogen Add Ur Microanalysis Leukocyte Esterase Rfl Urine RBC Urine WBC Ur Squamous Epith Cells Calcium Oxalate Crystal Urine Bacteria Urine Casts Nasal MRSA (PCR) Detected A* Influenza A (RT-PCR) Negative Influenza B (RT-PCR) Negative SARS-CoV-2 RNA (RT-PCR) Negative 10/28/24 10/28/24 04:26 06:43 WBC 8.8 RBC 3.42 L Hgb 10.4 L D Hct 33.0 L MCV 96.5 MCH 30.4 MCHC 31.5 L RDW 14.6 H Plt Count 108 L MPV 10.1 Puncture Site ABG pH ABG pCO2 ABG pO2 ABG PO2/FiO2 Ratio ABG HCO3 ABG O2 Saturation ABG O2 Content ABG Base Excess A-a Gradient Oxyhemoglobin Carboxyhemoglobin Methemoglobin Reduced Hemoglobin Total Hemoglobin O2 Delivery Device O2 Liters/Min Vent Rate FiO2 Expiratory Pressure Inspiratory Pressure Sodium 142 Potassium 4.0 Chloride 110 H Carbon Dioxide 29 Anion Gap 3 L BUN 29 H Creatinine 0.80 Estim Creat Clear Calc 66 Estimated GFR > 60 Glucose 118 H POC Capillary Glucose 126 H Lactic Acid Calcium 7.8 L Magnesium 1.8 Total Bilirubin AST ALT Alkaline Phosphatase NT-Pro-B Natriuret Pep Total Protein Albumin Urine Color Urine Appearance Urine pH Ur Specific [place] Urine Protein Urine Glucose (UA) Urine Ketones Ur Blood (Man) Urine Nitrate Urine Bilirubin Urine Urobilinogen Add Ur Microanalysis Leukocyte Esterase Rfl Urine RBC Urine WBC Ur Squamous Epith Cells Calcium Oxalate Crystal Urine Bacteria Urine Casts Nasal MRSA (PCR) Influenza A (RT-PCR) Influenza B (RT-PCR) SARS-CoV-2 RNA (RT-PCR) Quality VTE Prophylaxis VTE prophylaxis: pharmacologic ordered (on apixaban)
[2024-10-28 11:30] LABS: Glucose Point of Care 113 mg/dl (65-105)
[2024-10-28 14:21] LABS: Base Excess ABG 1.4 mEq/l (+/-2.0); HCO3 ABG 28.3 mEq/l (22.0-26.0); Oxygen Saturation ABG 89.9 % (95.0-100.0); PCO2 ABG 54.5 mmHg (35.0-45.0); PO2 ABG 62.1 mmHg (80.0-100.0); pH ABG 7.334 (7.350-7.450)
[2024-10-28 14:22] LABS: Alveolar/Arterial O2 Gradient 131.4 mmHg; Oxygen Content ABG 17.6 %vol (16.0-22.0)
[2024-10-28 14:23] LABS: Carboxyhemoglobin 1.6 % THb (0-2.0); Device NASAL CANNULA; Fractional Inspired Oxygen 36 %; Methemoglobin ABG 0.1 %THb (0-1.5); Oxyhemoglobin 89.5 % THb (90.0-100.0); PO2 FiO2 Ratio Arterial Blood 1.72 %; Reduced Hemoglobin 8.8 %THb (0-5.0)
[2024-10-28 15:53] LABS: Glucose Point of Care 119 mg/dl (65-105)
[2024-10-28 17:09] LABS: Lactic Acid Reflex 0.9 mmol/L (0.7-2.0)
[2024-10-28] MEDS: OLANZapine 5 MG TABLET PO (17:13)
[2024-10-28] MEDS: methADONE HCL (*CRX) 5 MG TABLET PO (17:13)
[2024-10-28] MEDS: BISACODYL 5 MG TABLET EC 10 MG PO (17:13)
[2024-10-28] MEDS: ASCORBIC ACID 500 MG TABLET PO (17:14)
[2024-10-28] MEDS: SUCRALFATE 1 GM TABLET PO (17:15)
--- NOTE | 2024-10-28 18:42 | PC.NURSE ---
This patient, Farhan Armstrong, was transferred to [[id number] ] on 10/28/24 at 1842. Personal belongings sent with patient. Report given to [MAGALIS Santillan @ [phone] ]. Appropriate documentation sent with patient.
--- NOTE | 2024-10-28 18:46 | PC.NURSE ---
This patient, Farhan Armstrong, was received from IMU on 10/28/24 at 1846. Patient/family oriented to unit policies and routines
[2024-10-28 21:26] LABS: Glucose Point of Care 87 mg/dl (65-105)
[2024-10-28] MEDS: TAMSULOSIN HCL 0.4 MG CAPSULE PO (21:46)
[2024-10-28] MEDS: rOPINIRole HCL 1 MG TABLET PO (21:46)
[2024-10-28] MEDS: APIXABAN 5 MG TABLET PO (21:46)
[2024-10-28] MEDS: MIRTAZAPINE 15 MG TABLET PO (21:46)
[2024-10-28] MEDS: GABAPENTIN 100 MG CAPSULE PO (21:46)
[2024-10-29] VITALS (11 sets, daily range): BP systolic 117–129; BP diastolic 58–70; PULSE 9–93; RESP 18–24; TEMP 36.4–36.6; O2SAT 97–99
[2024-10-29] MEDS: GABAPENTIN 100 MG CAPSULE PO ×3 (06:25→21:59)
[2024-10-29] MEDS: LEVOTHYROXINE SODIUM 25 MCG TABLET PO (06:25)
[2024-10-29 08:03] LABS: Glucose Point of Care 113 mg/dl (65-105)
[2024-10-29] MEDS: IPRATROPIUM 0.5 MG/ALBUTEROL SULFATE 2.5 MG AMPUL.NEB 3 ML INHALATION ×4 (08:08→20:06)
[2024-10-29] MEDS: methADONE HCL (*CRX) 5 MG TABLET PO ×2 (09:38→16:56)
[2024-10-29] MEDS: buPROPion HCL XL (24 HR) 150 MG TABCR PO (09:38)
[2024-10-29] MEDS: OLANZapine 5 MG TABLET PO ×2 (09:38→16:57)
[2024-10-29] MEDS: AZITHROMYCIN 250 MG TABLET 500 MG PO (09:39)
[2024-10-29] MEDS: BISACODYL 5 MG TABLET EC 10 MG PO ×2 (09:39→16:56)
[2024-10-29] MEDS: guaiFENesin 12 HR 600 MG TABCR 1200 MG PO ×2 (09:39→21:58)
[2024-10-29] MEDS: ASCORBIC ACID 500 MG TABLET PO ×2 (09:39→16:56)
[2024-10-29] MEDS: CLOPIDOGREL BISULFATE 75 MG TABLET PO (09:40)
[2024-10-29] MEDS: APIXABAN 5 MG TABLET PO ×2 (09:40→21:59)
[2024-10-29] MEDS: FLUoxetine HCL 20 MG CAPSULE PO (09:40)
[2024-10-29] MEDS: PANTOPRAZOLE 40 MG TABLET PO (09:40)
[2024-10-29] MEDS: SUCRALFATE 1 GM TABLET PO ×3 (09:43→16:56)
[2024-10-29 11:58] LABS: Glucose Point of Care 141 mg/dl (65-105)
--- NOTE | 2024-10-29 12:19 | P.PNIM_ITS ---
Progress Note: A&P Assessment and Plan (1) Sepsis: Code(s): A41.9 - Sepsis, unspecified organism Status: Acute Assessment and Plan: * Meeting sepsis criteria with fever, tachycardia, tachypnea, elevated lactic a zackery, pneumonia * Received 1 L of normal saline while in the ED * Blood culture showing no growth to date on preliminary read * urine culture reading E coli on preliminary read * Continue Rocephin and azithromycin * Respiratory panel negative for Influenza A and B, COVID * UA showing 1+ Leukocytes, 11-20 WBC's. * White blood cell count 7.5 on admission, lactic acid * lactic acid down to 0.9 (2) Acute and chronic respiratory failure with hypoxia: Code(s): J96.21 - Acute and chronic respiratory failure with hypoxia Status: Acute Assessment and Plan: * CTA showing left lower lobe consolidation with patchy involvement in the lingula and the right lower lobe suspicious for multifocal pneumonia * Urine Legionella, urine strep, mycoplasma pending * Received meropenem, Rocephin, azithromycin while in the ED * Continue Rocephin and Azithromycin * Flagyl discontinued * Continue Duonebs * currently on baseline oxygen requirement (3) Multifocal pneumonia: Code(s): J18.9 - Pneumonia, unspecified organism Status: Acute Assessment and Plan: * see above plan of care (4) Acute UTI: Code(s): N39.0 - Urinary tract infection, site not specified Status: Acute Assessment and Plan: * UA showing 1+ urine protein, 1+ urine ketone, 1+ leukocyte, 11-20 urine WBC * urine culture showing E coli on preliminary read * continue Rocephin * Chronic Corral replaced in the ED this admission (5) Heart failure with preserved ejection fraction: Code(s): I50.30 - Unspecified diastolic (congestive) heart failure Status: Acute Assessment and Plan: * Last echo reviewed and showed normal LV systolic function with an estimated EF of 55-60%, grade 1 diastolic dysfunction (6) Chronic anticoagulation: 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 Status: Acute Assessment and Plan: * Continue Eliquis (7) Obstructive sleep apnea: Code(s): G47.33 - Obstructive sleep apnea (adult) (pediatric) Status: Acute Assessment and Plan: * Continue BiPAP at night (8) Moderate protein-calorie malnutrition: Code(s): E44.0 - Moderate protein-calorie malnutrition Status: Acute Assessment and Plan: * Dietitian consulted * BMI 27.1, 85.7 kg * Continue supplements Time Spent With Patient Time with patient: Greater than 35 minutes Subjective Date/time seen: 10/29/24 12:19 Interval history: Interval history: This is an 78-year-old male who presented to the hospital on 10/27/2024 with shortness of breath. Workup in the hospital included chest x-ray which shown an opacification in the right upper lobe suggestive of atelectasis versus pneumonia, bilateral interstitial changes. Chest CTA showed extensive left lower lobe consolidation for patchy involvement in the lingula and right lower lobe, suspicious for multifocal pneumonia, stable dense consolidation volume loss of the right upper lobe. Initial labs showed a normal white blood cell count of 7.5, hemoglobin 13.5, lactic acid 2.7, magnesium 1.6, troponin negative, proBNP 427. A UA was obtained and showed 1+ urine protein, 1+ urine ketone, 1+ leukocyte, 11-20 urine WBC, 11-20 urine cast. MRSA was positive. Respiratory panel was negative for influenza a and B, and COVID. Urine strep, urine Legionella, mycoplasma are all pending. ABG showed a pH of 7.343, PO2 77.1. Blood and urine cultures were obtained and pending. Patient was given 1 L normal saline, Rocephin, azithromycin, meropenem while in the ED. Subjective: Patient denies any new complaints today. Labs reviewed. Review of Systems Review of Systems: All systems reviewed & are unremarkable except as noted in HPI and below Constitutional: Constitutional: Reports as per HPI and Reports no additional constitutional complaints Eyes: Eyes: Reports as per HPI and Reports no additional eye complaints ENT: Reports system reviewed and no additional complaints, except as documented and Reports as per HPI Cardiovascular: Cardiovascular: Reports as per HPI and Reports no additional cardiovascular complaints Respiratory: Respiratory: Reports as per HPI and Reports no additional respiratory complaints Gastrointestinal: Gastrointestinal: Reports as per HPI and Reports no additional gastrointestinal complaints Genitourinary: Genitourinary: Reports no additional male genitourinary complaints and Reports as per HPI Musculoskeletal: Musculoskeletal: Reports no additional musculoskeletal complaints and Reports as per HPI Integumentary/Breasts: Skin/Breast: Reports system reviewed and no additional complaints, except as docu and Reports as per HPI Neurologic: Reports system reviewed and no additional complaints, except as documented and Reports as per HPI Psychiatric: Psychiatric: Reports no additional psychiatric complaints and Reports as per HPI Exam Narrative: General: In no acute distress Cardiac: Normal S1 and S2. No murmur, gallops or friction rubs, peripheral pulses intact. Respiratory: Left lower lobe crackles with mild expiratory wheezing, currently on 3 L NC Gastrointestinal: soft, non-distended, non-tender, normoactive bowel sounds. : chronic corral in place draining clear yellow urine Neuro: Alert and oriented x4 Objective Data Vital Signs Vital Signs: Vital Signs - 24 hr 10/28/24 13:21 10/28/24 13:30 10/28/24 14:00 Temperature Pulse Rate 92 93 100 Respiratory Rate 22 H 22 H Blood Pressure Pulse Oximetry Oxygen Delivery Oxygen Flow Rate 10/28/24 15:19 10/28/24 21:21 10/28/24 21:37 Temperature 99.1 F 98.6 F Pulse Rate 99 100 92 Respiratory Rate 18 14 22 H Blood Pressure 106/55 L 123/66 Pulse Oximetry 95 95 Oxygen Delivery Oxygen Flow Rate 10/28/24 21:45 10/28/24 21:45 10/28/24 21:46 Temperature Pulse Rate 88 Respiratory Rate 22 H Blood Pressure Pulse Oximetry 92 92 Oxygen Delivery Nasal Cannula Oxygen Flow Rate 2 10/28/24 23:45 10/29/24 03:15 10/29/24 03:16 Temperature Pulse Rate 9 L 89 Respiratory Rate 20 22 H 24 H Blood Pressure Pulse Oximetry 98 Oxygen Delivery BiPAP BiPAP Oxygen Flow Rate 10/29/24 06:04 10/29/24 08:35 10/29/24 09:39 Temperature 97.9 F 97.5 F L Pulse Rate 72 87 Respiratory Rate 20 24 H 22 H Blood Pressure 125/70 126/64 Pulse Oximetry 98 99 98 Oxygen Delivery Nasal Cannula Oxygen Flow Rate 2 Intake/Output Intake/Output: Intake & Output 10/26/24 10/27/24 10/28/24 10/29/24 23:59 23:59 23:59 23:59 Intake Total 2654 1690 600 Output Total 400 1350 700 Balance 2254 340 -100 Meds/Results Medications: Active Medications Generic Name Dose Route Start Last Admin Trade Name Freq PRN Reason Stop Dose Admin Acetaminophen 650 mg 10/27/24 22:18 Acetaminophen 325 Mg Tablet PO Q6H PRN Mild Pain (1-3) or Fever Albuterol/Ipratropium 3 ml 10/27/24 14:00 10/29/24 08:11 Ipratropium 0.5 Mg/Albuterol Sulfate 2.5 Mg Ampul.Neb 3 Ml INHALATION 3 ml Q6HRT JILLIAN Administration Apixaban 5 mg 10/28/24 21:00 10/29/24 09:40 Apixaban 5 Mg Tablet PO 5 mg Q12HR JILLIAN Administration Ascorbic Acid 500 mg 10/28/24 17:00 10/29/24 09:39 Ascorbic Acid 500 Mg Tablet PO 500 mg BID JILLIAN Administration Azithromycin 500 mg 10/29/24 09:00 10/29/24 09:39 Azithromycin 250 Mg Tablet PO 10/31/24 09:00 500 mg DAILY JILLIAN Administration Bisacodyl 10 mg 10/28/24 17:00 10/29/24 09:39 Bisacodyl 5 Mg Tablet Ec PO 10 mg BID JILLIAN Administration Bisacodyl 10 mg 10/28/24 16:22 Bisacodyl 10 Mg Suppository RECTAL DAILY PRN Constipation Bupropion HCl 150 mg 10/29/24 09:00 10/29/24 09:38 Bupropion Hcl Xl (24 Hr) 150 Mg Tabcr PO 150 mg DAILY JILLIAN Administration Clopidogrel Bisulfate 75 mg 10/29/24 09:00 10/29/24 09:40 Clopidogrel Bisulfate 75 Mg Tablet PO 75 mg DAILY JILLIAN Administration Dextrose 12.5 gm 10/27/24 22:18 Dextrose 50% 25 Gm/50 Ml Syringe IV PUSH PRN PRN Hypoglycemia Protocol Fluoxetine HCl 20 mg 10/29/24 09:00 10/29/24 09:40 Fluoxetine Hcl 20 Mg Capsule PO 20 mg DAILY JILLIAN Administration Gabapentin 100 mg 10/28/24 22:00 10/29/24 06:25 Gabapentin 100 Mg Capsule PO 100 mg Q8HR JILLIAN Administration Glucagon 1 mg 10/27/24 22:18 Glucagon For Inj 1 Mg Vial IM PRN PRN Hypoglycemia Protocol Glucose 15 gm 10/27/24 22:18 Glucose Oral Gel 15 Gm Of Glucse In 37.5 Gm Tube PO PRN PRN Hypoglycemia Protocol Guaifenesin 1,200 mg 10/28/24 09:00 10/29/24 09:39 Guaifenesin 12 Hr 600 Mg Tabcr PO 1,200 mg Q12HR JILLIAN Administration Ceftriaxone Sodium 1 gm in 50 mls @ 100 mls/hr 10/28/24 11:00 10/29/24 10:07 Rocephin 1 Gm/Ns 50 Ml IVPB 100 mls/hr Q24H JILLIAN Administration Dextrose 1,000 mls @ 100 mls/hr 10/27/24 22:18 Dextrose 5% 1,000 Ml IVPB PRN PRN Hypoglycemia Protocol Insulin Aspart 2 - 5 units 10/28/24 08:00 10/29/24 09:43 Insulin Aspart (*Bkc) 100 Units/Ml SUB-Q Not Given TIDWM JILLIAN Protocol Insulin Aspart 1 - 2 units 10/28/24 21:00 10/28/24 21:44 Insulin Aspart (*Bkc) 100 Units/Ml SUB-Q Not Given HS JILLIAN Protocol Levothyroxine Sodium 25 mcg 10/29/24 06:30 10/29/24 06:25 Levothyroxine Sodium 25 Mcg Tablet PO 25 mcg DAILY@0630 JILLIAN Administration Methadone HCl 5 mg 10/28/24 17:00 10/29/24 09:38 Methadone Hcl (*Crx) 5 Mg Tablet PO 5 mg BID JILLIAN Administration Mirtazapine 15 mg 10/28/24 21:00 10/28/24 21:46 Mirtazapine 15 Mg Tablet PO 15 mg HS JILLIAN Administration Multivitamins/Minerals 1 tab 10/29/24 12:00 Multivitamins /C Lutein (Centrum Silver) Tablet *Bkc PO DAILY@1200 JILLIAN Olanzapine 5 mg 10/28/24 17:00 10/29/24 09:38 Olanzapine 5 Mg Tablet PO 5 mg BID JILLIAN Administration Pantoprazole Sodium 40 mg 10/29/24 09:00 10/29/24 09:40 Pantoprazole 40 Mg Tablet PO 40 mg QAM JILLIAN Administration Polyethylene Glycol 17 gm 10/28/24 16:22 Polyethylene Glycol 3350 17 Gm Powd.Pack PO DAILY PRN Constipation Ropinirole HCl 1 mg 10/28/24 21:00 10/28/24 21:46 Ropinirole Hcl 1 Mg Tablet PO 1 mg HS JILLIAN Administration Sucralfate 1 gm 10/28/24 16:30 10/29/24 09:43 Sucralfate 1 Gm Tablet PO 1 gm TID@0830,1130,1630 JILLIAN Administration Tamsulosin HCl 0.4 mg 10/28/24 21:00 10/28/24 21:46 Tamsulosin Hcl 0.4 Mg Capsule PO 0.4 mg HS JILLIAN Administration Radiology Results: ITS Impressions Chest CTA 10/27/24 11:27 Impression: No evidence of pulmonary embolus, aortic dissection, or aortic aneurysm. Extensive left lower lobe consolidation is more patchy involvement in the lingula and right lower lobe. Findings are suspicious for multifocal pneumonia. Stable dense consolidation volume loss of the right upper lobe, which could reflect chronic right upper lobe atelectasis. Minimal left pleural effusion. Labs Labs: Laboratory Results - last 24 hr 10/28/24 10/28/24 10/28/24 15:24 16:43 21:22 POC Capillary Glucose 119 H 87 Lactic Acid 0.9 10/29/24 10/29/24 07:55 11:54 POC Capillary Glucose 113 H 141 H Lactic Acid Quality VTE Prophylaxis VTE prophylaxis: pharmacologic ordered (on apixaban)
[2024-10-29 12:40] LABS: Basophils Percent Auto 0.2 % (0.2-1.2); Eosinophils Absolute Auto 0.2 K/mm3 (0-0.3); Eosinophils Percent Auto 1.7 % (0-4.4); Hematocrit 31.5 % (42.0-52.0); Hemoglobin 9.9 g/dL (14.0-18.0); Immature Granulocyte Absolute 0.07 K/mm3 (0.00-0.031); Immature Granulocyte Percent A 0.7 % (0-0.5); Lymphocytes Absolute Auto 0.66 K/mm3 (0.9-3.2); Lymphocytes Percent Auto 6.7 % (18.3-44.2); Mean Corpuscular HGB Conc 31.4 g/dl (32-36); Mean Corpuscular Hemoglobin 30.3 pg (26-34); Mean Corpuscular Volume 96.3 fl (80-100); Mean Platelet Volume 10.1 fl (7.4-10.4); Monocytes Absolute Auto 0.7 K/mm3 (0.1-0.6); Neutrophils Absolute Auto 8.2 K/mm3 (1.3-6.7); Neutrophils Percent Auto 83.7 % (45.5-73.1); Platelet Count Result 124 k/mm3 (150-375); Red Blood Count 3.27 M/mm3 (4.6-6.20); Red Cell Distribution Width 14.6 % (11.5-14.5); White Blood Count 9.8 K/mm3 (4.5-10.0)
[2024-10-29 12:51] LABS: Alanine Aminotransferase 8 U/L (6-50); Albumin Level 2.3 g/dL (3.5-5.1); Alkaline Phosphatase 71 U/L (38-126); Anion Gap -1 mmol/L (4-12); Aspartate Amino Transferase 12 U/L (17-59); Bilirubin,Total 0.3 mg/dL (0.2-1.3); Blood Urea Nitrogen 21 mg/dL (9-20); Calcium 7.8 mg/dL (8.4-10.2); Carbon Dioxide 32 mmol/L (22-30); Chloride 105 mmol/L (98-107); Estimated CRCL calculation 66 ml/min; Estimated Glomerular Filt Rate > 60; Glucose 131 mg/dL (65-110); Potassium 3.5 mmol/L (3.4-5.0); Sodium 136 mmol/L (137-145)
[2024-10-29] MEDS: MULTIVITAMINS /C LUTEIN (CENTRUM SILVER) TABLET *BKC 1 TAB PO (13:11)
[2024-10-29 16:58] LABS: Glucose Point of Care 128 mg/dl (65-105)
[2024-10-29] MEDS: GENTAMICIN SULFATE INJ 430 MG in DEXTROSE 5% 100 ML 100 MG IVPB (17:04)
[2024-10-29] MEDS: MIRTAZAPINE 15 MG TABLET PO (21:59)
[2024-10-29] MEDS: TAMSULOSIN HCL 0.4 MG CAPSULE PO (21:59)
[2024-10-29] MEDS: rOPINIRole HCL 1 MG TABLET PO (21:59)
[2024-10-29 22:11] LABS: Glucose Point of Care 104 mg/dl (65-105)
[2024-10-30] VITALS (10 sets, daily range): BP systolic 105; BP diastolic 50; PULSE 69–88; RESP 16–25; TEMP 36.5; O2SAT 93–98
[2024-10-30] MEDS: IPRATROPIUM 0.5 MG/ALBUTEROL SULFATE 2.5 MG AMPUL.NEB 3 ML INHALATION ×3 (02:08→14:07)
[2024-10-30] MEDS: GABAPENTIN 100 MG CAPSULE PO (06:33)
[2024-10-30] MEDS: LEVOTHYROXINE SODIUM 25 MCG TABLET PO (06:33)
--- NOTE | 2024-10-30 07:54 | PM.DS ---
DS: Admitting Diagnosis Discharge Date 10/30/24 Admitting Diagnosis Sepsis Multifocal pneumonia Acute on chronic respiratory failure with hypoxia Heart failure with preserved EF Chronic anticoagulation ANIA DS: Discharge Diagnosis Discharge Diagnosis (1) Sepsis: Code(s): A41.9 - Sepsis, unspecified organism Status: Acute (2) Acute and chronic respiratory failure with hypoxia: Code(s): J96.21 - Acute and chronic respiratory failure with hypoxia Status: Acute (3) Multifocal pneumonia: Code(s): J18.9 - Pneumonia, unspecified organism Status: Acute (4) Acute UTI: Code(s): N39.0 - Urinary tract infection, site not specified Status: Acute (5) Heart failure with preserved ejection fraction: Code(s): I50.30 - Unspecified diastolic (congestive) heart failure Status: Acute (6) Chronic anticoagulation: 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 Workup in the hospital included chest x-ray which shown an opacification in the right upper lobe suggestive of atelectasis versus pneumonia, bilateral interstitial changes. Chest CTA showed extensive left lower lobe consolidation for patchy involvement in the lingula and right lower lobe, suspicious for multifocal pneumonia, stable dense consolidation volume loss of the right upper lobe. Initial labs showed a normal white blood cell count of 7.5, hemoglobin 13.5, lactic acid 2.7, magnesium 1.6, troponin negative, proBNP 427. A UA was obtained and showed 1+ urine protein, 1+ urine ketone, 1+ leukocyte, 11-20 urine WBC, 11-20 urine cast. MRSA was positive. Respiratory panel was negative for influenza a and B, and COVID. Urine strep, urine Legionella, mycoplasma are all pending. ABG showed a pH of 7.343, PO2 77.1. Blood and urine cultures were obtained and pending. Patient was given 1 L normal saline, Rocephin, azithromycin, meropenem while in the ED. He was continued on Rocephin and Azithromycin and then transitioned to Cefdinir and Azithromycin after urine culture came back with E coli in the urine on final read. VSS, he is afebrile, he is currently on 2-3L NC which is his baseline O2 requirements. He is stable for discharge at this time. Final diagnosis: Sepsis, acute on chronic respiratory failure with hypoxia, multifocal community acquired pneumonia, moderate protein calorie malnutrition, acute UTI Status at Discharge Cognitive/behavioral status at discharge: Alert and oriented x3 Functional status at discharge: uses cane/walker Overall status at discharge: patient is progressing back to baseline Time Spent with Patient Time attestation: Total time spent providing and/or coordinating discharge services: Time spent: Greater than 30 minutes Exam Narrative: General: In no acute distress Cardiac: Normal S1 and S2. No murmur, gallops or friction rubs, peripheral pulses intact. Respiratory: Left lower lobe crackles with mild expiratory wheezing, currently on 2L NC Gastrointestinal: soft, non-distended, non-tender, normoactive bowel sounds. : chronic corral in place draining clear yellow urine Neuro: Alert and oriented x4 DS: Data Data Completed and Pending Completed studies during hospitalization: Chest CTA Chest x-ray Pending studies at discharge: Blood cultures Labs on day of discharge: Labs from last 24 hours 10/29/24 10/29/24 10/29/24 21:36 16:48 12:28 WBC 9.8 RBC 3.27 L Hgb 9.9 L Hct 31.5 L MCV 96.3 MCH 30.3 MCHC 31.4 L RDW 14.6 H Plt Count 124 L MPV 10.1 Immature Gran % (Auto) 0.7 H Neut % (Auto) 83.7 H Lymph % (Auto) 6.7 L [place] % (Auto) 7.0 Eos % (Auto) 1.7 Baso % (Auto) 0.2 Lymph # (Auto) 0.66 L [place] # (Auto) 0.7 H Eos # (Auto) 0.2 Baso # (Auto) 0.0 Abs Immat Gran (auto) 0.07 H Absolute Neuts (auto) 8.2 H Absolute Nucleated RBC 0.000 Nucleated RBC % 0.0 Sodium 136 L Potassium 3.5 Chloride 105 Carbon Dioxide 32 H Anion Gap -1 L BUN 21 H Creatinine 0.80 Estim Creat Clear Calc 66 Estimated GFR > 60 Glucose 131 H POC Capillary Glucose 104 128 H Calcium 7.8 L Total Bilirubin 0.3 AST 12 L ALT 8 Alkaline Phosphatase 71 Total Protein 5.0 L Albumin 2.3 L 10/29/24 10/29/24 11:54 07:55 WBC RBC Hgb Hct MCV MCH MCHC RDW Plt Count MPV Immature Gran % (Auto) Neut % (Auto) Lymph % (Auto) [place] % (Auto) Eos % (Auto) Baso % (Auto) Lymph # (Auto) [place] # (Auto) Eos # (Auto) Baso # (Auto) Abs Immat Gran (auto) Absolute Neuts (auto) Absolute Nucleated RBC Nucleated RBC % Sodium Potassium Chloride Carbon Dioxide Anion Gap BUN Creatinine Estim Creat Clear Calc Estimated GFR Glucose POC Capillary Glucose 141 H 113 H Calcium Total Bilirubin AST ALT Alkaline Phosphatase Total Protein Albumin Procedures/Treatments: None Discharge Plan Discharge Attending physician on discharge: Kye Weaver Discharging Clinician: Cely Loyola Anticipated Discharge Date/Time: 10/30/24 07:39 Patient Disposition: NH [facility]/As[facility] Living Activity: as tolerated Diet: as tolerated and heart healthy Discharge Instructions: Finish all your antibiotic as directed for your treatment of pneumonia Follow up with your primary care doctor in 1 week Patient Instructions: Antibiotic Form, Heart Attack (GEN), Heart Healthy Diet (GEN), Bacterial Pneumonia (DC) Patient Language: Iraqi Stand Alone Forms: General Discharge Information, Long-Term Discharge Follow-up/Referrals: Jewel Aleman MD [Primary Care Provider] - 1 Week Discharge Medications: New cefdinir 300 mg Capsule 300 mg PO Q12HR Qty: 8 0RF guaifenesin [Mucus Relief ER] 600 mg Tablet Extended Release 12hr 1,200 mg PO Q12HR Qty: 20 0RF azithromycin [Zithromax] 250 mg Tablet 500 mg PO DAILY Qty: 8 0RF Continued ondansetron 8 mg Tablet,Disintegrating 8 mg PO Q8H PRN (Reason: Nausea) ropinirole 1 mg tablet 1 mg PO HS albuterol sulfate 90 mcg/actuation HFA aerosol inhaler 1 puff INHALATION Q4H PRN (Reason: Shortness Of Breath) acetaminophen 325 mg Tablet 650 mg PO Q6H PRN (Reason: Pain, Mild) ascorbic acid (vitamin C) 500 mg Tablet 500 mg PO BID bisacodyl [Dulcolax (bisacodyl)] 5 mg Tablet,Delayed Release (Dr/Ec) 10 mg PO BID lactulose 10 gram/15 mL Solution 20 g PO TID Adults Multivitamin 18 mg iron-400 mcg-25 mcg Tablet 1 tablet PO DAILY Pro-Stat Sugar Free 15 gram liquid 30 ml PO DAILY methadone 5 mg tablet 5 mg PO BID bisacodyl 10 mg Suppository 10 mg RECTAL DAILY PRN (Reason: Constipation) Qty: 12 0RF sucralfate [Carafate] 1 gram Tablet 1 g PO TID levothyroxine 25 mcg Tablet 25 mcg PO DAILY polyethylene glycol 3350 [Miralax] 17 gram powder in packet 17 g PO DAILY PRN (Reason: Constipation) Tigan 100 mg/mL solution 100 mg IM ONCE PRN (Reason: migraines) levalbuterol HCl 1.25 mg/3 mL solution for nebulization 1.25 mg inhalation Q6H PRN (Reason: SOB) pantoprazole 40 mg tablet,delayed release (DR/EC) 40 mg PO QAM Qty: 30 0RF bupropion HCl 300 mg tablet extended release 24 hr 150 mg PO DAILY olanzapine 5 mg Tablet 5 mg PO BID fluoxetine 20 mg Capsule 20 mg PO DAILY potassium chloride 20 mEq Tablet Extended Release 20 meq PO BID ipratropium bromide 0.02 % Solution 0.5 mg inhalation TID Qty: 75 0RF Symbicort 2 puff inhalation BID Qty: 1 0RF clopidogrel [Plavix] 75 mg Tablet 75 mg PO DAILY diphenhydramine HCl [Benadryl Allergy] 25 mg Tablet 25 mg PO TID PRN (Reason: allergies) mirtazapine [Remeron] 15 mg Tablet 15 mg PO HS trospium 20 mg Tablet 20 mg PO BID Rx Instructions: administer on an empty stomach Eliquis 5 mg Tablet 10 mg PO Q12HR Qty: 5 0RF Rx Instructions: last dose 10/15 9 pm Eliquis 5 mg Tablet 5 mg PO Q12HR Qty: 90 0RF Rx Instructions: start taking 5 mg twice a day on 10/16 bisacodyl [Laxative (bisacodyl)] 5 mg Tablet,Delayed Release (Dr/Ec) 5 mg PO QAM Qty: 30 0RF tamsulosin 0.4 mg capsule 0.4 mg PO HS gabapentin 100 mg capsule 100 mg PO TID Qty: 90 0RF Date of admission: 10/27/24 15:09 Primary Care Provider: Jewel Aleman Admitting Provider: Sebastian Lui Attending physician on admission: Cely Loyola Condition: Improved Quality VTE Prophylaxis VTE prophylaxis: pharmacologic ordered (on apixaban) Hospitalist MIPS Heart Failure (Exclusion) Patient has history of Heart Transplant or Left Ventricular Assistive Device?: No IF YES, STOP HERE Heart Failure (Qualifier) Patient has current or prior documentation of LVEF less than or equal to 40%, or mod/servere depressed LVSF?: No IF NO, STOP HERE
[2024-10-30 08:05] LABS: Glucose Point of Care 101 mg/dl (65-105)
[2024-10-30] MEDS: APIXABAN 5 MG TABLET PO (09:36)
[2024-10-30] MEDS: ASCORBIC ACID 500 MG TABLET PO (09:36)
[2024-10-30] MEDS: AZITHROMYCIN 250 MG TABLET 500 MG PO (09:36)
[2024-10-30] MEDS: SUCRALFATE 1 GM TABLET PO ×2 (09:36→12:13)
[2024-10-30] MEDS: BISACODYL 5 MG TABLET EC 10 MG PO (09:37)
[2024-10-30] MEDS: buPROPion HCL XL (24 HR) 150 MG TABCR PO (09:37)
[2024-10-30] MEDS: OLANZapine 5 MG TABLET PO (09:38)
[2024-10-30] MEDS: CEFDINIR 300 MG CAPSULE PO (09:38)
[2024-10-30] MEDS: FLUoxetine HCL 20 MG CAPSULE PO (09:38)
[2024-10-30] MEDS: PANTOPRAZOLE 40 MG TABLET PO (09:38)
[2024-10-30] MEDS: guaiFENesin 12 HR 600 MG TABCR 1200 MG PO (09:38)
[2024-10-30] MEDS: CLOPIDOGREL BISULFATE 75 MG TABLET PO (09:38)
[2024-10-30] MEDS: methADONE HCL (*CRX) 5 MG TABLET PO (09:38)
[2024-10-30] MEDS: MULTIVITAMINS /C LUTEIN (CENTRUM SILVER) TABLET *BKC 1 TAB PO (12:13)
[2024-10-30 12:21] LABS: Glucose Point of Care 110 mg/dl (65-105)
[2024-10-30 17:48] LABS: Pneumococcal Antigen Urine NOT DETECTED
[2024-10-31 21:48] LABS: Mycoplasma IgM Antibody Titer 119 U/mL
[2024-11-07 20:23] LABS: Legionella pneumophila Ag Ur NOT DETECTED
== END 2024-10-30 14:29 | DRG 871 ==
LOC: ANHED 10:42 → ANHIMU 14:25 → ANH2MED 10-28 18:51
PROVIDERS: Physician Assistant; Student in an Organized Health Care Education/Training Program; Admitting Provider Internal Medicine; Emergency Provider Physician Assistant; PCP Family Medicine; Visit Provider Nurse Practitioner Acute Care
DX: A41.9 Sepsis, unspecified organism (principal); J18.9 Pneumonia, unspecified organism; J96.21 Acute and chronic respiratory failure with hypoxia; J44.0 Chronic obstructive pulmonary disease with (acute) lower respiratory infection; N39.0 Urinary tract infection, site not specified; E44.0 Moderate protein-calorie malnutrition; I50.32 Chronic diastolic (congestive) heart failure; I11.0 Hypertensive heart disease with heart failure; I48.0 Paroxysmal atrial fibrillation; I35.0 Nonrheumatic aortic (valve) stenosis; I25.10 Atherosclerotic heart disease of native coronary artery without angina pectoris; E11.42 Type 2 diabetes mellitus with diabetic polyneuropathy; E03.9 Hypothyroidism, unspecified; E78.2 Mixed hyperlipidemia; B96.20 Unspecified Escherichia coli [E. coli] as the cause of diseases classified elsewhere; R13.10 Dysphagia, unspecified; N40.0 Benign prostatic hyperplasia without lower urinary tract symptoms; M19.90 Unspecified osteoarthritis, unspecified site; M79.7 Fibromyalgia; G25.81 Restless legs syndrome; F32.A Depression, unspecified; Z20.822 Contact with and (suspected) exposure to COVID-19; Z85.118 Personal history of other malignant neoplasm of bronchus and lung; Z99.81 Dependence on supplemental oxygen; Z79.02 Long term (current) use of antithrombotics/antiplatelets; Z87.891 Personal history of nicotine dependence; Z68.27 Body mass index [BMI] 27.0-27.9, adult
CPT/HCPCS: 36415; 36600; 71045; 71275; 80048; 80053; 81001; 82375; 82805; 82948; 83050; 83605; 83735; 83880; 84484; 85018; 85025; 85027; 85380; 85610; 85730; 86738; 87040; 87086; 87186; 87449; 87636; 87641; 87899; 92522; 94002; 94003; 94640; 94667; 94668; 94762; 96365; 96367; 99285; A9270; G0378; J0456; J0696; J1580; J1741; J1836; J2185; J2919; J3475; J7030; Q9967

== ENCOUNTER 2024-11-10 12:47 | Inpatient (IN) | payer MEDICARE, MEDICAID, SELFPAY ==
[2024-11-10] VITALS (36 sets, daily range): BP systolic 66–122; BP diastolic 17–86; PULSE 84–99; RESP 12–302; TEMP 36.6–36.8; O2SAT 93–98; BMI 26.7
--- NOTE | ~2024-11-10 | XR_ITS ---
CHEST RADIOGRAPH CLINICAL HISTORY: cough, sob . COMPARISON: Examination was compared with multiple prior studies, performed most recently on 10/27/20 24 and dating back to 03/22/2023 TECHNIQUE: Single portable view of the chest. FINDINGS Redemonstration of a right internal jugular central venous port catheter which curves backwards upon itself at its entry point within the neck coursing caudally and projecting over the cavoatrial juncti on. The remainder of the cardiomediastinal silhouette is otherwise unremarkable. Volume loss is redemonstrated within the right upper lobe, consistent with patient's history. The remainder of the lungs are clear. IMPRESSION: No focal infiltrate or effusion. Reviewed, dictated and finalized at location A. SHAKER
--- NOTE | ~2024-11-10 | CT_ITS ---
CLINICAL INDICATION: Pressure decubitus with bleeding COMPARISON: Reference is made to CT examinations of the chest performed most recently on 10/27/2024 a nd dating back to 10/06/2024. TECHNIQUE: Multiple contiguous axial images of the abdomen and pelvis were performed following the ad ministration of with 100 mL Omnipaque-350 intravenous contrast The dose-length product (DLP) was 1136.25 mGy-cm. Automated exposure control and iterative reconstruction technique were employed. FINDINGS/OBSERVATIONS: Visualized lower thorax: Increased left-sided pleural effusion when compared with previous examination with adjacent compressi ve atelectasis. Left basilar consolidation is also now noted. Calcified pleural plaques detected bilaterally. The heart is enlarged, without pericardial effusion. Liver: The liver enhances homogeneously. Gallbladder and biliary system: The gallbladder is only minimally distended, and otherwise unremarkable. Pancreas: Fatty atrophy of the pancreas is present. The pancreas otherwise enhances homogeneously without ductal dilatation. Spleen: Punctate calcifications identified within the splenic parenchyma, suggesting prior granulomatous dise ase. The remainder of the spleen otherwise enhances homogeneously and is not enlarged. Kidneys: The bilateral kidneys are atrophic but enhance symmetrically without hydronephrosis or renal calculi. Adrenal glands: Unremarkable. Gastrointestinal tract: Fecal stasis within the colon. Appendix: The appendix is not definitively visualized. However, no pericecal inflammatory change is identified suggest the presence of acute appendicitis. Vasculature: Densely calcified atherosclerotic disease. Well-defined tubular/serpentine collateral vasculature is identified within the retroperitoneum to th e left of midline consistent with perisplenic varices, feeding into the splenic vein. Lymph nodes: No pathologically enlarged or morphologically suspicious lymph nodes within the retroperitoneum or at the root of the mesentery. Pelvic structures: The bladder is decompressed with a Barnard catheter, limiting its evaluation.. Body wall and musculoskeletal: No abnormality is detected along the superficial soft tissues of the pelvis corresponding to patient' s history. IMPRESSION: Findings consistent with portal hypertension, as detailed above. No soft tissue abnormality detected within the the posterior margin of the pelvis consistent with pat ient's history. If a sacral decubitus ulcer does exist and was not included on the submitted images, portal hypertens ion can increase bleeding of these areas and should be included in the differential diagnosis. Reviewed, dictated and finalized at location A. ARY DIRECTOR IMPRESSION: Findings consistent with portal hypertension, as detailed above. No soft tissue abnormality detected within the the posterior margin of the pelv is consistent with patient's history. If a sacral decubitus ulcer does exist and was not included on the submitted im ages, portal hypertension can increase bleeding of these areas and should be in cluded in the differential diagnosis.
--- NOTE | 2024-11-10 13:27 | ED_ITS ---
HPI - Skin/Abscess/Foreign Bdy General Chief complaint: Skin/Abscess/Foreign Body Stated complaint: pressure sore Time Seen by Provider: 11/10/24 13:10 History of Present Illness HPI narrative: 78-year-old male presenting from a nursing facility with concerns for bleeding pressure sore. On my evaluation, he denies complaints. Related Data Home Medications ?Medication ?Instructions ?Recorded ?Confirmed ?Last Taken ?Type ropinirole 1 mg tablet 1 mg PO HS 12/18/19 10/28/24 Unknown History bupropion HCl 300 mg 24 hr tablet, 150 mg PO DAILY 03/09/21 10/28/24 Unknown History extended release tamsulosin 0.4 mg capsule 0.4 mg PO HS 02/26/22 10/28/24 Unknown History albuterol sulfate 90 mcg/actuation 1 puff inhalation Q4H PRN 07/27/22 10/28/24 Unknown History aerosol inhaler Shortness Of Breath ondansetron 8 mg disintegrating 8 mg PO Q8H PRN Nausea 08/10/22 10/28/24 Unknown History tablet Pro-Stat Sugar Free 30 ml PO DAILY 03/23/23 10/28/24 Unknown History acetaminophen 325 mg tablet 650 mg PO Q6H PRN Pain, Mild 03/23/23 10/28/24 Unknown History ascorbic acid (vitamin C) 500 mg 500 mg PO BID 03/23/23 10/28/24 Unknown History tablet bisacodyl 5 mg tablet,delayed 10 mg PO BID 03/23/23 10/28/24 Unknown History release (Dulcolax (bisacodyl)) lactulose 10 gram/15 mL oral 20 g PO TID 03/23/23 10/28/24 Unknown History solution methadone 5 mg tablet 5 mg PO BID 03/23/23 10/28/24 Unknown History multivit with minerals-iron 18 1 tablet PO DAILY 03/23/23 10/28/24 Unknown History mg-folic ac 400 mcg-vit K 25 mcg tablet (Adults Multivitamin) levalbuterol HCl 1.25 mg/3 mL 1.25 mg inhalation Q6H PRN SOB 07/23/23 10/28/24 Unknown History solution for nebulization levothyroxine 25 mcg tablet 25 mcg PO DAILY 07/23/23 10/28/24 07/23/23 History polyethylene glycol 3350 17 gram 17 g PO DAILY PRN Constipation 07/23/23 10/28/24 Unknown History oral powder packet (Miralax) sucralfate 1 gram tablet (Carafate) 1 g PO TID 07/23/23 10/28/24 Unknown History trimethobenzamide 100 mg/mL 100 mg IM ONCE PRN migraines 07/23/23 10/28/24 Unknown History intramuscular solution (Tigan) fluoxetine 20 mg capsule 20 mg PO DAILY 06/28/24 10/28/24 Unknown History olanzapine 5 mg tablet 5 mg PO BID 06/28/24 10/28/24 Unknown History potassium chloride 20 mEq 20 meq PO BID 07/04/24 10/28/24 Unknown History tablet,extended release clopidogrel 75 mg tablet (Plavix) 75 mg PO DAILY 08/25/24 10/28/24 Unknown History diphenhydramine HCl 25 mg tablet 25 mg PO TID PRN allergies 08/25/24 10/28/24 Unknown History (Benadryl Allergy) mirtazapine 15 mg tablet (Remeron) 15 mg PO HS 08/25/24 10/28/24 Unknown History trospium 20 mg tablet 20 mg PO BID 08/25/24 10/28/24 Unknown History Allergies Allergy/AdvReac Type Severity Reaction Status Date / Time Penicillins Allergy Unknown SHORTNESS Verified 11/10/24 20:13 OF BREATH Review of Systems 2 Review of Systems: All systems reviewed & are unremarkable except as noted in HPI and below PMFSH Past Medical History Medical History Chronic anticoagulation Heart failure with preserved ejection fraction Type 2 diabetes mellitus Major depressive disorder, recurrent, unspecified Hypothyroidism Benign prostatic hyperplasia Obstructive sleep apnea Type 2 diabetes mellitus Chronic obstructive pulmonary disease Sacral decubitus ulcer Aortic valve stenosis Coronary artery disease (2019) Non-STEMI - left heart cath showed mild coronary artery disease with severe LV dysfunction EF 20% with possible underlying nonischemic cardiomyopathy, no PCI. Non-small cell carcinoma of lung Status post chemo radiation. Fibromyalgia Depression Arthritis (03/26/19) Restless legs syndrome Atrial fibrillation with controlled ventricular rate Mixed hyperlipidemia Surgical History Surgical History History of hernia repair Umbilical hernia repair. Bilateral inguinal hernia repairs. Family History Family History Sibling Patient's sister is in good health Hypertension Family history of heart disease in male family member before age 55 Mother Family history of heart disease in male family member before age 55 Patient's mother is Family history of congestive heart failure, Onset Age: 70 Father Patient's father is Acute myocardial infarction, Onset Age: 62 Grandparent Depression Family history of arthritis Family history of malignant neoplasm of breast Family history of heart disease in male family member before age 55 Other Cerebrovascular accident Family history of cardiovascular disease Social History Social History Social History: Code status: Do not resuscitate. Son Harshal Armstrong is POA and primary contact. [phone] Smoking packs per day: 3 Smoking cigarettes per day: 60.0 Years smoked: 30 Smoking pack-years: 90.00 Smoking status: Former smoker Tobacco type: cigarettes Second hand tobacco smoke exposure: Yes Alcohol intake: never Substance use: never Substance use type: does not use Do You Feel Safe in your Home?: Yes Lack of Transportation: No Lack of Food: Never True Current Housing: I Have Housing Concerned About Future Housing: No Difficulty Paying Gas/Electric Bills: No Difficulty Paying for Meds: No Currently Unemployed: No Education: Decline to Answer Difficulty w/ Childcare or Family Care: No Living arrangements: detention Additional living arrangements comments: [facility] Occupation/Education: retired 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 EYES: PERRLA and EOMI. ENT: grossly unremarkable NECK: Supple. CHEST: Clear to auscultation. No respiratory distress. HEART: Regular rate and rhythm ABDOMEN: Soft, nontender, nondistended RECTAL: pressure ulcer of sacrum, bleeding controlled EXTREMITIES: Normal range of motion SKIN: Warm, dry, no rash. NEURO: Alert and oriented x3. PSYCH: Normal mood and affect. Course Vital Signs Vital signs: Vital Signs Temperature 98.3 F 11/10/24 12:47 Pulse Rate 99 11/10/24 12:47 Respiratory Rate 13 11/10/24 12:47 Blood Pressure 84/54 L 11/10/24 12:47 Pulse Oximetry 94 11/10/24 12:47 Oxygen Delivery Nasal Cannula 11/10/24 12:47 Oxygen Flow Rate 2 11/10/24 12:47 Temperature 98.3 F 11/10/24 12:47 Pulse Rate 85 11/10/24 20:00 Respiratory Rate 17 11/10/24 20:00 Blood Pressure 115/77 11/10/24 20:00 Pulse Oximetry 97 11/10/24 20:00 Oxygen Delivery Nasal Cannula 11/10/24 12:47 Oxygen Flow Rate 2 11/10/24 12:47 MDM - Skin/Abscess/Foreign Bdy MDM Narrative Medical decision making narrative: 78-year-old male presenting with bleeding pressure wound. Patient was some soft pressures. Fluids are ongoing. Blood work with stable hemoglobin of 9.4. CT abdomen pelvis shows no significant abnormalities. UA is possibly infected, he does have an indwelling Barnard catheter. Patient's pressures are still a bit soft, albumin has been ordered. Feel he would benefit from admission for further management. He is agreeable this plan. Spoke with the hospitalist was accepted him for admission. Differential Diagnosis Differential diagnosis: Likely abscess of skin or subcutaneous tissue, cellulitis and other ( Pressure ulcer) Medical Records Attestation: I reviewed the patient's medical records. Lab Data Attestation: I reviewed the patient's lab results. 11/10/24 17:56 11/10/24 13:27 Labs: Lab Results 11/10/24 11/10/24 11/10/24 Range/Units 13:27 13:28 15:45 WBC 8.6 (4.5-10.0) K/mm3 RBC 3.14 L (4.6-6.20) M/mm3 Hgb 9.4 L (14.0-18.0) g/dL Hct 30.6 L (42.0-52.0) % MCV 97.5 (80-100) fl MCH 29.9 (26-34) pg MCHC 30.7 L (32-36) g/dl RDW 14.5 (11.5-14.5) % Plt Count 205 D (150-375) k/mm3 MPV 9.6 (7.4-10.4) fl Immature Gran % (Auto) 0.6 H (0-0.5) % Neut % (Auto) 81.9 H (45.5-73.1) % Lymph % (Auto) 6.5 L (18.3-44.2) % Sutter % (Auto) 8.9 H (2.6-8.5) % Eos % (Auto) 1.5 (0-4.4) % Baso % (Auto) 0.6 (0.2-1.2) % Lymph # (Auto) 0.56 L (0.9-3.2) K/mm3 Sutter # (Auto) 0.8 H (0.1-0.6) K/mm3 Eos # (Auto) 0.1 (0-0.3) K/mm3 Baso # (Auto) 0.1 (0.0-0.1) K/mm3 Abs Immat Gran (auto) 0.05 H (0.00-0.031) K/mm3 Absolute Neuts (auto) 7.0 H (1.3-6.7) K/mm3 Absolute Nucleated RBC 0.000 (0.0-0.012) K/mm3 Nucleated RBC % 0.0 (0.0-0.2) % PT 24.6 H (11.1-14.7) Seconds INR 2.2 APTT 45.4 H (22.3-36.8) Seconds Sodium 137 (137-145) mmol/L Potassium 4.3 (3.4-5.0) mmol/L Chloride 101 (98-107) mmol/L Carbon Dioxide 39 H (22-30) mmol/L Anion Gap -3 L (4-12) mmol/L BUN 14 D (9-20) mg/dL Creatinine 0.80 (0.7-1.3) mg/dL Estim Creat Clear Calc 62 ml/min Estimated GFR > 60 (59 - ) Glucose 114 H (65-110) mg/dL Lactic Acid 0.6 L (0.7-2.0) mmol/L Calcium 8.4 (8.4-10.2) mg/dL Magnesium 1.6 (1.6-2.3) mg/dL Total Bilirubin 0.5 (0.2-1.3) mg/dL AST 15 L (17-59) U/L ALT 7 (6-50) U/L Alkaline Phosphatase 72 (38-126) U/L Total Protein 6.0 L (6.3-8.2) g/dL Albumin 2.4 L (3.5-5.1) g/dL Urine Color Yellow (Yellow) Urine Appearance Clear (Clear) Urine pH 5.0 (5.0-9.0) Ur Specific [place] > 1.045 H (1.001-1.035) Urine Protein Negative (Negative) mg/dL Urine Glucose (UA) Negative (Negative) mg/dL Urine Ketones Negative (Negative) mg/dL Ur Blood (Man) 2+ H (Negative) Urine Nitrate Positive H (Negative) Urine Bilirubin Negative (Negative) Urine Urobilinogen 1.0 (<2.0) mg/dL Add Ur Microanalysis Reviewed Leukocyte Esterase Rfl 1+ H (Negative) NICKY/UL Urine RBC 21-50 H (0-2) /hpf Urine WBC 21-50 H (0-3) /hpf Ur Squamous Epith Cells None seen (Few) /hpf Urine Bacteria 4+ H /hpf Urine Casts 6-10 Blood Type O Positive Antibody Screen Negative 11/10/24 Range/Units 17:56 WBC (4.5-10.0) K/mm3 RBC (4.6-6.20) M/mm3 Hgb 8.5 L (14.0-18.0) g/dL Hct 28.1 L (42.0-52.0) % MCV (80-100) fl MCH (26-34) pg MCHC (32-36) g/dl RDW (11.5-14.5) % Plt Count (150-375) k/mm3 MPV (7.4-10.4) fl Immature Gran % (Auto) (0-0.5) % Neut % (Auto) (45.5-73.1) % Lymph % (Auto) (18.3-44.2) % Sutter % (Auto) (2.6-8.5) % Eos % (Auto) (0-4.4) % Baso % (Auto) (0.2-1.2) % Lymph # (Auto) (0.9-3.2) K/mm3 Sutter # (Auto) (0.1-0.6) K/mm3 Eos # (Auto) (0-0.3) K/mm3 Baso # (Auto) (0.0-0.1) K/mm3 Abs Immat Gran (auto) (0.00-0.031) K/mm3 Absolute Neuts (auto) (1.3-6.7) K/mm3 Absolute Nucleated RBC (0.0-0.012) K/mm3 Nucleated RBC % (0.0-0.2) % PT (11.1-14.7) Seconds INR APTT (22.3-36.8) Seconds Sodium (137-145) mmol/L Potassium (3.4-5.0) mmol/L Chloride (98-107) mmol/L Carbon Dioxide (22-30) mmol/L Anion Gap (4-12) mmol/L BUN (9-20) mg/dL Creatinine (0.7-1.3) mg/dL Estim Creat Clear Calc ml/min Estimated GFR (59 - ) Glucose (65-110) mg/dL Lactic Acid (0.7-2.0) mmol/L Calcium (8.4-10.2) mg/dL Magnesium (1.6-2.3) mg/dL Total Bilirubin (0.2-1.3) mg/dL AST (17-59) U/L ALT (6-50) U/L Alkaline Phosphatase (38-126) U/L Total Protein (6.3-8.2) g/dL Albumin (3.5-5.1) g/dL Urine Color (Yellow) Urine Appearance (Clear) Urine pH (5.0-9.0) Ur Specific [place] (1.001-1.035) Urine Protein (Negative) mg/dL Urine Glucose (UA) (Negative) mg/dL Urine Ketones (Negative) mg/dL Ur Blood (Man) (Negative) Urine Nitrate (Negative) Urine Bilirubin (Negative) Urine Urobilinogen (<2.0) mg/dL Add Ur Microanalysis Leukocyte Esterase Rfl (Negative) NICKY/UL Urine RBC (0-2) /hpf Urine WBC (0-3) /hpf Ur Squamous Epith Cells (Few) /hpf Urine Bacteria /hpf Urine Casts Blood Type Antibody Screen Imaging Data Radiologist's impression: ITS Impressions Abdomen/Pelvis CT 11/10/24 14:42 IMPRESSION: Findings consistent with portal hypertension, as detailed above. No soft tissue abnormality detected within the the posterior margin of the pelvis consistent with patient's history. If a sacral decubitus ulcer does exist and was not included on the submitted images, portal hypertension can increase bleeding of these areas and should be included in the differential diagnosis. Critical Care Time Critical Care Time Critical Care Time: No Discharge Plan Discharge Clinical Impression: Pressure ulcer, Anemia, Abnormal urinalysis Patient Disposition: Still a Patient Condition: Stable Patient Language: Yoruba Prescriptions: No Action ondansetron 8 mg Tablet,Disintegrating 8 mg PO Q8H PRN (Reason: Nausea) ropinirole 1 mg tablet 1 mg PO HS albuterol sulfate 90 mcg/actuation HFA aerosol inhaler 1 puff INHALATION Q4H PRN (Reason: Shortness Of Breath) acetaminophen 325 mg Tablet 650 mg PO Q6H PRN (Reason: Pain, Mild) ascorbic acid (vitamin C) 500 mg Tablet 500 mg PO BID bisacodyl [Dulcolax (bisacodyl)] 5 mg Tablet,Delayed Release (Dr/Ec) 10 mg PO BID lactulose 10 gram/15 mL Solution 20 g PO TID Adults Multivitamin 18 mg iron-400 mcg-25 mcg Tablet 1 tablet PO DAILY Pro-Stat Sugar Free 15 gram liquid 30 ml PO DAILY methadone 5 mg tablet 5 mg PO BID bisacodyl 10 mg Suppository 10 mg RECTAL DAILY PRN (Reason: Constipation) Qty: 12 0RF sucralfate [Carafate] 1 gram Tablet 1 g PO TID levothyroxine 25 mcg Tablet 25 mcg PO DAILY polyethylene glycol 3350 [Miralax] 17 gram powder in packet 17 g PO DAILY PRN (Reason: Constipation) Tigan 100 mg/mL solution 100 mg IM ONCE PRN (Reason: migraines) levalbuterol HCl 1.25 mg/3 mL solution for nebulization 1.25 mg inhalation Q6H PRN (Reason: SOB) pantoprazole 40 mg tablet,delayed release (DR/EC) 40 mg PO QAM Qty: 30 0RF bupropion HCl 300 mg tablet extended release 24 hr 150 mg PO DAILY olanzapine 5 mg Tablet 5 mg PO BID fluoxetine 20 mg Capsule 20 mg PO DAILY potassium chloride 20 mEq Tablet Extended Release 20 meq PO BID ipratropium bromide 0.02 % Solution 0.5 mg inhalation TID Qty: 75 0RF Symbicort 2 puff inhalation BID Qty: 1 0RF clopidogrel [Plavix] 75 mg Tablet 75 mg PO DAILY diphenhydramine HCl [Benadryl Allergy] 25 mg Tablet 25 mg PO TID PRN (Reason: allergies) mirtazapine [Remeron] 15 mg Tablet 15 mg PO HS trospium 20 mg Tablet 20 mg PO BID Rx Instructions: administer on an empty stomach Eliquis 5 mg Tablet 10 mg PO Q12HR Qty: 5 0RF Rx Instructions: last dose 10/15 9 pm Eliquis 5 mg Tablet 5 mg PO Q12HR Qty: 90 0RF Rx Instructions: start taking 5 mg twice a day on 10/16 bisacodyl [Laxative (bisacodyl)] 5 mg Tablet,Delayed Release (Dr/Ec) 5 mg PO QAM Qty: 30 0RF guaifenesin [Mucus Relief ER] 600 mg Tablet Extended Release 12hr 1,200 mg PO Q12HR Qty: 20 0RF azithromycin [Zithromax] 250 mg Tablet 500 mg PO DAILY Qty: 8 0RF cefdinir 300 mg Capsule 300 mg PO Q12HR Qty: 8 0RF tamsulosin 0.4 mg capsule 0.4 mg PO HS gabapentin 100 mg capsule 100 mg PO TID Qty: 90 0RF
[2024-11-10 13:34] LABS: Basophils Absolute Auto 0.1 K/mm3 (0.0-0.1); Basophils Percent Auto 0.6 % (0.2-1.2); Eosinophils Absolute Auto 0.1 K/mm3 (0-0.3); Eosinophils Percent Auto 1.5 % (0-4.4); Hematocrit 30.6 % (42.0-52.0); Hemoglobin 9.4 g/dL (14.0-18.0); Immature Granulocyte Absolute 0.05 K/mm3 (0.00-0.031); Immature Granulocyte Percent A 0.6 % (0-0.5); Lymphocytes Absolute Auto 0.56 K/mm3 (0.9-3.2); Lymphocytes Percent Auto 6.5 % (18.3-44.2); Mean Corpuscular HGB Conc 30.7 g/dl (32-36); Mean Corpuscular Hemoglobin 29.9 pg (26-34); Mean Corpuscular Volume 97.5 fl (80-100); Mean Platelet Volume 9.6 fl (7.4-10.4); Monocytes Absolute Auto 0.8 K/mm3 (0.1-0.6); Monocytes Percent Auto 8.9 % (2.6-8.5); Neutrophils Percent Auto 81.9 % (45.5-73.1); Platelet Count Result 205 k/mm3 (150-375); Red Blood Count 3.14 M/mm3 (4.6-6.20); Red Cell Distribution Width 14.5 % (11.5-14.5); White Blood Count 8.6 K/mm3 (4.5-10.0)
[2024-11-10 13:43] LABS: Lactic Acid Reflex 0.6 mmol/L (0.7-2.0)
[2024-11-10 13:44] LABS: Alanine Aminotransferase 7 U/L (6-50); Albumin Level 2.4 g/dL (3.5-5.1); Alkaline Phosphatase 72 U/L (38-126); Anion Gap -3 mmol/L (4-12); Aspartate Amino Transferase 15 U/L (17-59); Bilirubin,Total 0.5 mg/dL (0.2-1.3); Blood Urea Nitrogen 14 mg/dL (9-20); Calcium 8.4 mg/dL (8.4-10.2); Carbon Dioxide 39 mmol/L (22-30); Chloride 101 mmol/L (98-107); Estimated CRCL calculation 62 ml/min; Estimated Glomerular Filt Rate > 60; Glucose 114 mg/dL (65-110); Potassium 4.3 mmol/L (3.4-5.0); Sodium 137 mmol/L (137-145)
[2024-11-10 13:48] LABS: Magnesium 1.6 mg/dL (1.6-2.3)
[2024-11-10 13:52] LABS: INR 2.2; Prothrombin Time 24.6 Seconds (11.1-14.7)
[2024-11-10 13:53] LABS: Partial Thromboplastin Time 45.4 Seconds (22.3-36.8)
[2024-11-10] MEDS: SODIUM CHLORIDE 0.9% IV 1,000 ML 999 ML IV CONT (14:00)
[2024-11-10] MEDS: HYDROmorphone HCL INJ (*CRX) 1 MG/ML SYR 0.5 MG IV PUSH (14:04)
[2024-11-10 16:07] LABS: Add Urine Microscopic? YES; Appearance Urine Clear (Clear); Bacteria Urine 4+ /hpf; Bilirubin Urine Negative (Negative); Blood Urine 2+ (Negative); Color Urine Yellow (Yellow); Glucose Urine UA Negative (Negative); Ketones Urine Negative (Negative); Leukocyte Esterase Ur 1+ LEU/UL (Negative); Need Manual Microscopic Reviewed; Nitrate Urine Positive (Negative); Protein Urine Negative (Negative); RBC Urine 21-50 /hpf (0-2); Specific Grav Ur > 1.045 (1.001-1.035); Squamous Epithelial Cell Urine None Seen /hpf (Few); WBC Urine 21-50 /hpf (0-3)
[2024-11-10] MEDS: ALBUMIN HUMAN 25% 25 GM/100 ML 100 ML IVPB (17:51)
--- NOTE | 2024-11-10 17:55 | P.HP_ITS ---
H&P: HPI History of Present Illness Date/Time: 11/10/24 17:55 Chief Complaint: Bleeding wound on the coccyx. Narrative: This is an 78-year-old male with history of non-small cell lung cancer, chronic obstructive pulmonary disease, obstructive sleep apnea for which he has historically been noncompliant with CPAP, chronic respiratory failure with hypoxia on home oxygen, dysphagia with history of aspiration pneumonia, coronary artery disease, heart failure with preserved ejection fraction, paroxysmal atrial fibrillation on chronic anticoagulation, diet-controlled type 2 diabetes mellitus, and hypothyroidism who presented to the emergency department via EMS for a bleeding wound on the coccyx. The patient provides own history. Staff at his facility noticed blood on his clothing while he was at the [place] [employer] for lunch. A blood-soaked dressing was removed from the posterior region and he was reportedly bleeding from an open wound on the coccyx. The patient was unaware of the wound on his backside but he reports discomfort recently when lying supine. He has no current complaints and denies fever, chills, sweats, fall, injury, nausea, vomiting, diarrhea, abdominal pain, and back pain In the ED: He was afebrile on arrival. Blood pressures were initially in the 70s to 90s systolic but that improved with a 1 L normal saline bolus and albumin infusion. Labs were significant for a hemoglobin of 9.4, platelet 205, INR 2.2, carbon dioxide 39, lactic acid 0.6, total protein 6.0, albumin 2.4. Urinalysis was positive for 2+ blood, nitrates, 1+ leukocyte esterase, 21 to 50 RBC, 21 to 50 WBC, 4+ bacteria, and a specific gravity of greater than 1.045. CT of the abdomen and pelvis was without acute findings and did note findings consistent with portal hypertension. Chest x-ray showed no infiltrate or effusion. He was given meropenem 1 g IV for possible UTI and is being admitted in this setting for closer monitoring. Review of Systems Review of Systems: 12 systems were reviewed and are negative except for as per HPI. [facility] Past Medical History Medical History Chronic anticoagulation Heart failure with preserved ejection fraction Type 2 diabetes mellitus Major depressive disorder, recurrent, unspecified Hypothyroidism Benign prostatic hyperplasia Obstructive sleep apnea Type 2 diabetes mellitus Chronic obstructive pulmonary disease Sacral decubitus ulcer Aortic valve stenosis Coronary artery disease (2019) Non-STEMI - left heart cath showed mild coronary artery disease with severe LV dysfunction EF 20% with possible underlying nonischemic cardiomyopathy, no PCI. Non-small cell carcinoma of lung Status post chemo radiation. Fibromyalgia Depression Arthritis (03/26/19) Restless legs syndrome Atrial fibrillation with controlled ventricular rate Mixed hyperlipidemia Surgical History Surgical History History of hernia repair Umbilical hernia repair. Bilateral inguinal hernia repairs. Family History Family History Sibling Patient's sister is in good health Hypertension Family history of heart disease in male family member before age 55 Mother Family history of heart disease in male family member before age 55 Patient's mother is Family history of congestive heart failure, Onset Age: 70 Father Patient's father is Acute myocardial infarction, Onset Age: 62 Grandparent Depression Family history of arthritis Family history of malignant neoplasm of breast Family history of heart disease in male family member before age 55 Other Cerebrovascular accident Family history of cardiovascular disease Social History Social History (Updated 11/10/24 @ 22:31 by Yocasta Cole PA-C) Social History: Healthcare power of insurance defense attorney: Harshal donahue, son ([phone]). Code status: Do not resuscitate. Smoking packs per day: 3 Smoking cigarettes per day: 60.0 Years smoked: 30 Smoking pack-years: 90.00 Smoking status: Never smoker Tobacco type: cigarettes Second hand tobacco smoke exposure: Yes Alcohol intake: never Substance use: never Substance use type: does not use Do You Feel Safe in your Home?: Yes Lack of Transportation: No Lack of Food: Never True Current Housing: I Have Housing Concerned About Future Housing: No Difficulty Paying Gas/Electric Bills: No Difficulty Paying for Meds: No Currently Unemployed: No Education: High School Diploma/GED Difficulty w/ Childcare or Family Care: No Living arrangements: prison Additional living arrangements comments: [facility] [employer] Occupation/Education: retired Additional occupation/education comments: previously in [employer] Spiritual care concerns: No Meds Home Medications and Allergies Home Medications ?Medication ?Instructions ?Recorded ?Confirmed ?Type ropinirole 1 mg tablet 1 mg PO HS 12/18/19 10/28/24 History bupropion HCl 300 mg 24 hr tablet, 150 mg PO DAILY 03/09/21 10/28/24 History extended release tamsulosin 0.4 mg capsule 0.4 mg PO HS 02/26/22 10/28/24 History gabapentin 100 mg capsule 100 mg PO TID #90 caps 06/12/22 10/28/24 Rx albuterol sulfate 90 mcg/actuation 1 puff inhalation Q4H PRN 07/27/22 10/28/24 History aerosol inhaler Shortness Of Breath ondansetron 8 mg disintegrating 8 mg PO Q8H PRN Nausea 08/10/22 10/28/24 History tablet Pro-Stat Sugar Free 30 ml PO DAILY 03/23/23 10/28/24 History acetaminophen 325 mg tablet 650 mg PO Q6H PRN Pain, Mild 03/23/23 10/28/24 History ascorbic acid (vitamin C) 500 mg 500 mg PO BID 03/23/23 10/28/24 History tablet bisacodyl 5 mg tablet,delayed 10 mg PO BID 03/23/23 10/28/24 History release (Dulcolax (bisacodyl)) lactulose 10 gram/15 mL oral 20 g PO TID 03/23/23 10/28/24 History solution methadone 5 mg tablet 5 mg PO BID 03/23/23 10/28/24 History multivit with minerals-iron 18 1 tablet PO DAILY 03/23/23 10/28/24 History mg-folic ac 400 mcg-vit K 25 mcg tablet (Adults Multivitamin) bisacodyl 10 mg rectal suppository 10 mg RECTAL DAILY PRN 04/01/23 10/28/24 Rx Constipation #12 ea levalbuterol HCl 1.25 mg/3 mL 1.25 mg inhalation Q6H PRN SOB 07/23/23 10/28/24 History solution for nebulization levothyroxine 25 mcg tablet 25 mcg PO DAILY 07/23/23 10/28/24 History polyethylene glycol 3350 17 gram 17 g PO DAILY PRN Constipation 07/23/23 10/28/24 History oral powder packet (Miralax) sucralfate 1 gram tablet (Carafate) 1 g PO TID 07/23/23 10/28/24 History trimethobenzamide 100 mg/mL 100 mg IM ONCE PRN migraines 07/23/23 10/28/24 History intramuscular solution (Tigan) pantoprazole 40 mg tablet,delayed 40 mg PO QAM #30 tabs 08/12/23 10/28/24 Rx release fluoxetine 20 mg capsule 20 mg PO DAILY 06/28/24 10/28/24 History olanzapine 5 mg tablet 5 mg PO BID 06/28/24 10/28/24 History Symbicort 2 puff inhalation BID #1 applicator 07/04/24 10/28/24 Rx ipratropium bromide 0.02 % 0.5 mg (2.5 mL) inhalation TID #75 07/04/24 10/28/24 Rx solution for inhalation mL potassium chloride 20 mEq 20 meq PO BID 07/04/24 10/28/24 History tablet,extended release clopidogrel 75 mg tablet (Plavix) 75 mg PO DAILY 08/25/24 10/28/24 History diphenhydramine HCl 25 mg tablet 25 mg PO TID PRN allergies 08/25/24 10/28/24 History (Benadryl Allergy) mirtazapine 15 mg tablet (Remeron) 15 mg PO HS 08/25/24 10/28/24 History trospium 20 mg tablet 20 mg PO BID 08/25/24 10/28/24 History apixaban 5 mg tablet (Eliquis) 5 mg PO Q12HR #90 tabs 10/13/24 10/28/24 Rx bisacodyl 5 mg tablet,delayed 5 mg PO QAM #30 tabs 10/13/24 10/28/24 Rx release (Laxative (bisacodyl)) Allergies Allergy/AdvReac Type Severity Reaction Status Date / Time Penicillins Allergy Unknown SHORTNESS Verified 11/10/24 20:13 OF BREATH Vital Signs Vital Signs - 24 hr 11/10/24 12:47 11/10/24 13:12 11/10/24 13:20 Temperature 98.3 F Pulse Rate 99 92 92 Respiratory Rate 13 17 23 H Blood Pressure 84/54 L 87/49 L 95/51 L Pulse Oximetry 94 93 94 Oxygen Delivery Nasal Cannula Oxygen Flow Rate 2 11/10/24 13:35 11/10/24 14:06 11/10/24 14:28 Temperature Pulse Rate 89 95 95 Respiratory Rate 23 H 20 15 Blood Pressure 83/57 L 100/79 96/54 L Pulse Oximetry 98 95 96 Oxygen Delivery Oxygen Flow Rate 11/10/24 14:35 11/10/24 14:45 11/10/24 15:22 Temperature Pulse Rate 89 90 89 Respiratory Rate 19 18 16 Blood Pressure 116/67 110/72 108/56 L Pulse Oximetry 97 96 96 Oxygen Delivery Oxygen Flow Rate 11/10/24 15:34 Temperature Pulse Rate 89 Respiratory Rate 20 Blood Pressure 108/82 Pulse Oximetry 94 Oxygen Delivery Oxygen Flow Rate Exam Narrative: General: Chronically ill-appearing male sitting up in bed in no acute distress. Weight: 79.85 kg. BMI: 26.8. HEENT: PERRL, EOMI. Sclera anicteric. Oral mucosa is tacky. Neck: Supple. Supple. No obvious JVD. Respiratory: Respirations are nonlabored and lungs are clear to auscultation. Cardiovascular: Regular rate and rhythm with S1-S2. Systolic murmur at the upper sternal border. Gastrointestinal: Abdomen is soft, nontender, and nondistended with positive bowel sounds. Genitourinary: Barnard catheter draining slightly cloudy melvin colored urine. Skin: Warm and dry. There is an oval-shaped pressure ulcer on the left buttocks with surrounding erythema and maceration without discharge or evidence of acute infection. No bleeding noted at this time. Extremities: No cyanosis, clubbing, or edema. Radial and pedal pulses intact. Neurological: Alert. Cranial nerves 2-12 are grossly intact. Still willing tremors of the hands. Speech is clear but he is slow to respond. No gross focal deficits to casual conversation. Psychiatric: Pleasant and cooperative with normal mood and flat affect. H&P: Results Labs Labs: Short CBC 11/10/24 Range/Units 13:27 WBC 8.6 (4.5-10.0) K/mm3 Hgb 9.4 L (14.0-18.0) g/dL Hct 30.6 L (42.0-52.0) % Plt Count 205 D (150-375) k/mm3 BMP 11/10/24 13:27 Sodium 137 Potassium 4.3 Chloride 101 Carbon Dioxide 39 H BUN 14 D Creatinine 0.80 Glucose 114 H Calcium 8.4 Liver Function 11/10/24 Range/Units 13:27 Total Bilirubin 0.5 (0.2-1.3) mg/dL AST 15 L (17-59) U/L ALT 7 (6-50) U/L Alkaline Phosphatase 72 (38-126) U/L Albumin 2.4 L (3.5-5.1) g/dL Urine 11/10/24 Range/Units 15:45 Urine Color Yellow (Yellow) Urine Appearance Clear (Clear) Urine pH 5.0 (5.0-9.0) Ur Specific [place] > 1.045 H (1.001-1.035) Urine Protein Negative (Negative) mg/dL Urine Glucose (UA) Negative (Negative) mg/dL Impressions Abdomen/Pelvis CT 11/10/24 14:42 IMPRESSION: Findings consistent with portal hypertension, as detailed above. No soft tissue abnormality detected within the the posterior margin of the pelvis consistent with patient's history. If a sacral decubitus ulcer does exist and was not included on the submitted images, portal hypertension can increase bleeding of these areas and should be included in the differential diagnosis. 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 Labs, imaging, EKG, and all reports were personally reviewed. He has had no further bleeding since arrival but his undergarments, clothing, and blanket were soaked with blood. Hemoglobin and hematocrit will be trended and he will be transfused if indicated. Blood pressures were initially soft, possibly due to blood loss however this patient has a history of intermittent hypotension, but they have improved with albumin and IV fluid bolus. Hold anticoagulation for now and monitor for rebleeding. He was given meropenem 1 g for possible urinary tract infection however he is is afebrile with a normal white blood cell count. This is likely asymptomatic bacteriuria thus will hold on further antibiotics as he already has a history of ESBL E coli in his urine. Volume status is euvolemic. CPAP will be provided for the patient to use while hospitalized. His home medications will be reviewed and resumed as appropriate. Findings and treatment plan were discussed with the patient. Questions were solicited and answered to satisfaction. The patient's medical management will be taken over by the hospitalist team in a.m. Quality VTE Prophylaxis VTE prophylaxis: mechanical ordered If No VTE Prophylaxis Answer both mechanical and pharmacologic: Reason no pharmacologic proph: medical contraindication (bleeding wound) The patient has been admitted under observation status. Hospitalist MIPS Advance Care Plan I have confirmed that the patient's Advanced Care Plan is present, code status is documented, or surrogate decision maker is listed in patient medical record.: Yes Medication Reconciliation I have utilized all available resources to obtain, update and review the patients current medications (includes all prescriptions, OTC, herbals, cannabis, and nutritional supplements).: Yes
[2024-11-10 18:14] LABS: Hematocrit 28.1 % (42.0-52.0); Hemoglobin 8.5 g/dL (14.0-18.0)
[2024-11-10] MEDS: MEROPENEM 1 GM/NS 100 ML 1 GM/100 ML BAG IVPB (18:14)
--- NOTE | 2024-11-10 21:15 | ADMGEN ---
This patient, Farhan Armstrong, was admitted to Medical Room 345-01. Patient/family oriented to hospital policies and general routines including ID bracelet, bed and alarms, visiting hours, pain management, procedures, bathroom and other care routines, personal items, smoking policy, room service/diet, and visiting hours. Information on how to activate the Rapid Response Team has been discussed. Patient/Family are encouraged to report perceived risks to care and to ask questions if they do not understand what they are told or what they should do.
[2024-11-11] VITALS (16 sets, daily range): BP systolic 98–110; BP diastolic 53–56; PULSE 70–80; RESP 16–18; TEMP 36.4–36.5; O2SAT 96–100
[2024-11-11 00:47] LABS: Hematocrit 32.2 % (42.0-52.0); Hemoglobin 9.7 g/dL (14.0-18.0)
[2024-11-11] MEDS: SUCRALFATE 1 GM TABLET PO ×3 (05:45→17:18)
[2024-11-11 05:53] LABS: Hematocrit 26.1 % (42.0-52.0); Hemoglobin 7.9 g/dL (14.0-18.0); Mean Corpuscular HGB Conc 30.3 g/dl (32-36); Mean Corpuscular Hemoglobin 29.6 pg (26-34); Mean Corpuscular Volume 97.8 fl (80-100); Mean Platelet Volume 9.5 fl (7.4-10.4); Platelet Count Result 166 k/mm3 (150-375); Red Blood Count 2.67 M/mm3 (4.6-6.20); Red Cell Distribution Width 14.5 % (11.5-14.5); White Blood Count 5.4 K/mm3 (4.5-10.0)
[2024-11-11 06:13] LABS: Anion Gap -3 mmol/L (4-12); Blood Urea Nitrogen 11 mg/dL (9-20); Calcium 8.3 mg/dL (8.4-10.2); Carbon Dioxide 37 mmol/L (22-30); Chloride 103 mmol/L (98-107); Estimated CRCL calculation 81 ml/min; Estimated Glomerular Filt Rate > 60; Glucose 70 mg/dL (65-110); Magnesium 1.6 mg/dL (1.6-2.3); Potassium 3.7 mmol/L (3.4-5.0); Sodium 137 mmol/L (137-145)
[2024-11-11] MEDS: IPRATROPIUM BR 0.02% INH SOLN 0.5 MG/2.5 ML VIAL INHALATION ×3 (08:23→21:14)
[2024-11-11] MEDS: FLUTICASONE/SALMETEROL 45-21 MCG INHALER 1 PUFF 2 PUFF INHALATION ×2 (08:23→21:14)
[2024-11-11] MEDS: GABAPENTIN 100 MG CAPSULE PO ×3 (08:52→17:18)
[2024-11-11] MEDS: OLANZapine 5 MG TABLET PO ×2 (08:52→17:18)
[2024-11-11] MEDS: PANTOPRAZOLE 40 MG TABLET PO (08:52)
[2024-11-11] MEDS: POTASSIUM CHLORIDE 20 MEQ ER TABLET PO ×2 (08:52→17:18)
[2024-11-11] MEDS: buPROPion HCL XL (24 HR) 150 MG TABCR PO (08:52)
[2024-11-11] MEDS: FLUoxetine HCL 20 MG CAPSULE PO (08:53)
[2024-11-11] MEDS: ASCORBIC ACID 500 MG TABLET PO ×2 (08:53→17:18)
[2024-11-11] MEDS: methADONE HCL (*CRX) 5 MG TABLET PO ×2 (08:53→17:18)
[2024-11-11 08:54] LABS: Glucose Point of Care 83 mg/dl (65-105)
[2024-11-11 12:17] LABS: Glucose Point of Care 85 mg/dl (65-105)
[2024-11-11] MEDS: ACETAMINOPHEN 325 MG TABLET 650 MG PO ×2 (12:55→20:29)
[2024-11-11] MEDS: MULTIVITAMINS /C LUTEIN (CENTRUM SILVER) TABLET *BKC 1 TAB PO (12:55)
--- NOTE | 2024-11-11 16:54 | PM.IMPN ---
Progress Note: A&P Assessment and Plan (1) Hypotension: Code(s): I95.9 - Hypotension, unspecified Status: Acute Assessment and Plan: - Possibly related to anemia vs meds vs other. - Still trending low. - Given a dose of Albumin on presentation. - Started on gentle IVF hydration. - Continue to monitor closely. (2) Pressure ulcer: Code(s): L89.90 - Pressure ulcer of unspecified site, unspecified stage Status: Acute Assessment and Plan: - Appears non-infected. - Wound nurse consulted. - Wound care per nursing staff. (3) Anemia: Code(s): D64.9 - Anemia, unspecified Status: Acute Assessment and Plan: - Possibly from wound bleeding vs portal hypotension vs other. - No obvious signs of bleeiding. - Check FOB. - We'll consider GI consult. - Transfuse for Hgb <7. (4) Asymptomatic bacteriuria: Code(s): R82.71 - Bacteriuria Status: Acute Assessment and Plan: - Hx of MDR UTI. - Unsure if true UTI. - Hold abx for now. - Follow urine and blood cultures. (5) Chronic anticoagulation: Code(s): Z79.01 - [facility] (current) use of anticoagulants Status: Acute Assessment and Plan: - Pt on Eliquis for A-Fib but held for now with bleeding. - Monitor closely for bleeding signs. - We'll consider GI consult. (6) Heart failure with preserved ejection fraction: Code(s): I50.30 - Unspecified diastolic (congestive) heart failure Status: Acute Assessment and Plan: - Appears compensated. - Monitor closely with IVF hydration. - No diuresis for now. (7) Obstructive sleep apnea on CPAP: Code(s): G47.33 - Obstructive sleep apnea (adult) (pediatric) Status: Acute Assessment and Plan: - CPAP bedtime or supplemental O2 if unable to tolerate CPAP. Time Spent With Patient Time with patient: 25 - 35 minutes Subjective Date/time seen: 11/11/24 11:54 Patient states he feels alright except for some pain on his left buttock. Interval history: Patient calm on bedrest and looks to be in no acute distress. Review of Systems Review of Systems: 12 systems were reviewed and are negative except for as per HPI. All systems reviewed & are unremarkable except as noted in HPI and below Exam Narrative: General: Chronically ill-appearing male on bedrest and in no acute distress. Weight: 79.85 kg. BMI: 26.8. HEENT: PERRL, EOMI. Sclera anicteric. Oral mucosa is tacky. Neck: Supple. No obvious JVD. Respiratory: Respirations are nonlabored and lungs are clear to auscultation. Cardiovascular: Regular rate and rhythm. Systolic murmur at the upper sternal border. Gastrointestinal: Abdomen is soft, nontender, and nondistended with positive bowel sounds. Genitourinary: Barnard catheter draining melvin colored urine. Skin: Warm and dry. Stage II ulcer on right buttock. Unstageable ulcer to coccyx. No bleeding noted at this time. Extremities: No cyanosis, clubbing, or edema. Radial and pedal pulses intact. Neurological: Alert. Cranial nerves II-XII grossly intact. Contracture to darnell. LE. Psychiatric: Pleasant and cooperative with normal mood and flat affect. Objective Data Vital Signs Vital Signs: Vital Signs - 24 hr 11/10/24 17:00 11/10/24 17:10 11/10/24 17:20 Temperature Pulse Rate 85 86 85 Respiratory Rate 17 20 19 Blood Pressure 84/63 L 83/56 L 85/52 L Pulse Oximetry 94 Oxygen Delivery Oxygen Flow Rate 11/10/24 17:30 11/10/24 17:40 11/10/24 18:00 Temperature Pulse Rate 86 85 84 Respiratory Rate 20 13 12 Blood Pressure 79/58 L 94/72 L 118/70 Pulse Oximetry 95 95 95 Oxygen Delivery Oxygen Flow Rate 11/10/24 18:10 11/10/24 18:20 11/10/24 18:30 Temperature Pulse Rate 85 84 84 Respiratory Rate 20 18 16 Blood Pressure 120/76 107/71 121/86 Pulse Oximetry 94 95 97 Oxygen Delivery Oxygen Flow Rate 11/10/24 18:41 11/10/24 18:50 11/10/24 19:10 Temperature Pulse Rate 85 84 84 Respiratory Rate 21 H 22 H 19 Blood Pressure 114/74 102/72 106/70 Pulse Oximetry 94 Oxygen Delivery Oxygen Flow Rate 11/10/24 19:20 11/10/24 19:30 11/10/24 19:40 Temperature Pulse Rate 84 90 86 Respiratory Rate 20 302 H 21 H Blood Pressure 121/63 113/73 114/71 Pulse Oximetry 95 97 Oxygen Delivery Oxygen Flow Rate 11/10/24 19:50 11/10/24 20:00 11/10/24 21:14 Temperature 97.9 F Pulse Rate 86 85 87 Respiratory Rate 24 H 17 20 Blood Pressure 122/75 115/77 118/74 Pulse Oximetry 96 97 98 Oxygen Delivery Oxygen Flow Rate 11/10/24 21:41 11/10/24 21:41 11/11/24 00:00 Temperature Pulse Rate 84 87 74 Respiratory Rate 20 Blood Pressure Pulse Oximetry 98 Oxygen Delivery Nasal Cannula Oxygen Flow Rate 2 11/11/24 04:00 11/11/24 06:00 11/11/24 08:00 Temperature 97.6 F Pulse Rate 75 70 77 Respiratory Rate 16 Blood Pressure 103/56 L Pulse Oximetry 100 Oxygen Delivery Oxygen Flow Rate 11/11/24 08:25 11/11/24 08:28 11/11/24 12:00 Temperature Pulse Rate 77 80 Respiratory Rate 18 Blood Pressure Pulse Oximetry 96 Oxygen Delivery Nasal Cannula Oxygen Flow Rate 2 11/11/24 14:52 11/11/24 14:56 11/11/24 15:05 Temperature 97.7 F Pulse Rate 79 74 72 Respiratory Rate 18 18 18 Blood Pressure 98/53 L Pulse Oximetry 98 Oxygen Delivery Oxygen Flow Rate 11/11/24 16:00 Temperature Pulse Rate 74 Respiratory Rate Blood Pressure Pulse Oximetry Oxygen Delivery Oxygen Flow Rate Intake/Output Intake/Output: Intake & Output 11/08/24 11/09/24 11/10/24 11/11/24 23:59 23:59 23:59 23:59 Intake Total 1200 600 Output Total 300 Balance 1200 300 Meds/Results Medications: Active Medications Generic Name Dose Route Start Last Admin Trade Name Freq PRN Reason Stop Dose Admin Acetaminophen 650 mg 11/10/24 23:00 11/11/24 12:55 Acetaminophen 325 Mg Tablet PO 650 mg Q6H PRN Administration Mild Pain (1-3) or Fever Albuterol 1 puff 11/10/24 22:41 Albuterol Sulfate (*Sp) Aerosol 1 Puff INHALATION Q4HRT PRN Shortness Of Breath Ascorbic Acid 500 mg 11/11/24 09:00 11/11/24 08:53 Ascorbic Acid 500 Mg Tablet PO 500 mg BID JILLIAN Administration Bisacodyl 10 mg 11/10/24 22:41 Bisacodyl 10 Mg Suppository RECTAL DAILY PRN Constipation Bisacodyl 10 mg 11/11/24 09:00 Bisacodyl 5 Mg Tablet Ec PO BID [facility] Bupropion HCl 150 mg 11/11/24 09:00 11/11/24 08:52 Bupropion Hcl Xl (24 Hr) 150 Mg Tabcr PO 150 mg DAILY JILLIAN Administration Fluoxetine HCl 20 mg 11/11/24 09:00 11/11/24 08:53 Fluoxetine Hcl 20 Mg Capsule PO 20 mg DAILY [facility] Administration Gabapentin 100 mg 11/11/24 09:00 11/11/24 12:55 Gabapentin 100 Mg Capsule PO 100 mg TID [facility] Administration Ipratropium Arlee 0.5 mg 11/11/24 08:00 11/11/24 14:56 Ipratropium Br 0.02% Inh Soln 0.5 Mg/2.5 Ml Vial INHALATION 0.5 mg TIDRT [facility] Administration Lactulose 20 gm 11/11/24 17:00 Lactulose 20 Gm/30 Ml Udc PO TID [facility] Levothyroxine Sodium 25 mcg 11/11/24 21:00 Levothyroxine Sodium 25 Mcg Tablet PO HS [facility] Methadone HCl 5 mg 11/11/24 09:00 11/11/24 08:53 Methadone Hcl (*Crx) 5 Mg Tablet PO 5 mg BID [facility] Administration Mirtazapine 15 mg 11/11/24 21:00 Mirtazapine 15 Mg Tablet PO HS [facility] Miscellaneous Information 1 each 11/10/24 00:01 11/11/24 08:54 Nonformulary Drug (Trospium 20 Mg Tablet) Can Patient Use From Home? XX 12/10/24 00:00 Not Given CLARIFY [facility] Multivitamins/Minerals 1 tab 11/11/24 12:00 11/11/24 12:55 Multivitamins /C Lutein (Centrum Silver) Tablet *Bkc PO 1 tab DAILY@1200 [facility] Administration Non-Formulary Medication 20 mg 11/11/24 09:00 Trospium PO 12/11/24 08:59 BID JILLIAN Olanzapine 5 mg 11/11/24 09:00 11/11/24 08:52 Olanzapine 5 Mg Tablet PO 5 mg BID [facility] Administration Pantoprazole Sodium 40 mg 11/11/24 09:00 11/11/24 08:52 Pantoprazole 40 Mg Tablet PO 40 mg QAM [facility] Administration Potassium Chloride 20 meq 11/11/24 09:00 11/11/24 08:52 Potassium Chloride 20 Meq Er Tablet PO 20 meq BID [facility]ILLIAN Administration Ropinirole HCl 1 mg 11/11/24 21:00 Ropinirole Hcl 1 Mg Tablet PO [facility] Fluticasone/Salmeterol 2 puff 11/11/24 08:00 11/11/24 08:23 Fluticasone/Salmeterol 45-21 Mcg Inhaler 1 Puff INHALATION 2 puff Q12HRT [facility] Administration Sucralfate 1 gm 11/11/24 06:30 11/11/24 12:55 Sucralfate 1 Gm Tablet PO 1 gm TIDAC [facility] Administration Tamsulosin HCl 0.4 mg 11/11/24 21:00 Tamsulosin Hcl 0.4 Mg Capsule PO [facility] Radiology Results: ITS Impressions Abdomen/Pelvis CT 11/10/24 14:42 IMPRESSION: Findings consistent with portal hypertension, as detailed above. No soft tissue abnormality detected within the the posterior margin of the pelvis consistent with patient's history. If a sacral decubitus ulcer does exist and was not included on the submitted images, portal hypertension can increase bleeding of these areas and should be included in the differential diagnosis. Chest X-Ray 11/10/24 19:34 IMPRESSION: No focal infiltrate or effusion. Labs Labs: Laboratory Results - last 24 hr 11/10/24 11/11/24 11/11/24 17:56 00:07 05:29 WBC 5.4 RBC 2.67 L Hgb 8.5 L 9.7 L 7.9 L Hct 28.1 L 32.2 L 26.1 L MCV 97.8 MCH 29.6 MCHC 30.3 L RDW 14.5 Plt Count 166 MPV 9.5 Sodium 137 Potassium 3.7 Chloride 103 Carbon Dioxide 37 H Anion Gap -3 L BUN 11 Creatinine 0.60 L Estim Creat Clear Calc 81 Estimated GFR > 60 Glucose 70 POC Capillary Glucose Calcium 8.3 L Magnesium 1.6 11/11/24 11/11/24 08:50 12:06 WBC RBC Hgb Hct MCV MCH MCHC RDW Plt Count MPV Sodium Potassium Chloride Carbon Dioxide Anion Gap BUN Creatinine Estim Creat Clear Calc Estimated GFR Glucose POC Capillary Glucose 83 85 Calcium Magnesium Quality VTE Prophylaxis VTE prophylaxis: mechanical ordered Hospitalist [facility] Advance Care Plan I have confirmed that the patient's Advanced Care Plan is present, code status is documented, or surrogate decision maker is listed in patient medical record.: Yes Medication Reconciliation I have utilized all available resources to obtain, update and review the patients current medications (includes all prescriptions, OTC, herbals, cannabis, and nutritional supplements).: Yes
[2024-11-11 17:11] LABS: Glucose Point of Care 94 mg/dl (65-105)
[2024-11-11] MEDS: SODIUM CHLORIDE 0.9% IV 1,000 ML 60 ML IV CONT (17:21)
[2024-11-11] MEDS: TAMSULOSIN HCL 0.4 MG CAPSULE PO (20:29)
[2024-11-11] MEDS: LEVOTHYROXINE SODIUM 25 MCG TABLET PO (20:29)
[2024-11-11] MEDS: MIRTAZAPINE 15 MG TABLET PO (20:29)
[2024-11-11] MEDS: rOPINIRole HCL 1 MG TABLET PO (20:29)
[2024-11-11 20:43] LABS: Glucose Point of Care 105 mg/dl (65-105)
[2024-11-12] VITALS (14 sets, daily range): BP systolic 116–121; BP diastolic 62–71; PULSE 66–81; RESP 16–18; TEMP 36.5–36.6; O2SAT 94–100; BMI 27.7
[2024-11-12] MEDS: SUCRALFATE 1 GM TABLET PO ×3 (06:32→17:00)
[2024-11-12] MEDS: IPRATROPIUM BR 0.02% INH SOLN 0.5 MG/2.5 ML VIAL INHALATION ×3 (07:19→21:34)
[2024-11-12] MEDS: FLUTICASONE/SALMETEROL 45-21 MCG INHALER 1 PUFF 2 PUFF INHALATION ×2 (07:20→21:38)
[2024-11-12 09:13] LABS: Glucose Point of Care 96 mg/dl (65-105)
[2024-11-12] MEDS: OLANZapine 5 MG TABLET PO ×2 (09:19→17:00)
[2024-11-12] MEDS: methADONE HCL (*CRX) 5 MG TABLET PO ×2 (09:19→17:00)
[2024-11-12] MEDS: ASCORBIC ACID 500 MG TABLET PO ×2 (09:19→17:00)
[2024-11-12] MEDS: POTASSIUM CHLORIDE 20 MEQ ER TABLET PO ×2 (09:19→17:00)
[2024-11-12] MEDS: PANTOPRAZOLE 40 MG TABLET PO (09:19)
[2024-11-12] MEDS: GABAPENTIN 100 MG CAPSULE PO ×3 (09:19→17:00)
[2024-11-12] MEDS: buPROPion HCL XL (24 HR) 150 MG TABCR PO (09:19)
[2024-11-12] MEDS: FLUoxetine HCL 20 MG CAPSULE PO (09:20)
[2024-11-12 10:30] LABS: Hematocrit 30.1 % (42.0-52.0); Hemoglobin 8.9 g/dL (14.0-18.0)
[2024-11-12] MEDS: MULTIVITAMINS /C LUTEIN (CENTRUM SILVER) TABLET *BKC 1 TAB PO (12:14)
[2024-11-12 12:30] LABS: Glucose Point of Care 81 mg/dl (65-105)
--- NOTE | 2024-11-12 12:30 | P.PNIM_ITS ---
Progress Note: A&P Assessment and Plan (1) Hypotension: Code(s): I95.9 - Hypotension, unspecified Status: Acute Assessment and Plan: - Possibly related to anemia vs meds vs other. - Still trending low but improving. - Given a dose of Albumin on presentation. - Given IVF. - Continue to monitor closely. (2) Pressure ulcer: Code(s): L89.90 - Pressure ulcer of unspecified site, unspecified stage Status: Acute Assessment and Plan: - Appears non-infected. - Wound nurse consulted and recommendations noted. - Continue wound care per nursing staff. (3) Anemia: Code(s): D64.9 - Anemia, unspecified Status: Acute Assessment and Plan: - Possibly from wound bleeding vs portal hypotension vs other. - No obvious signs of bleeiding. - Check FOB. - We'll consider GI consult if Hgb falls significantly again. - Transfuse for Hgb <7. (4) Asymptomatic bacteriuria: Code(s): R82.71 - Bacteriuria Status: Acute Assessment and Plan: - Hx of MDR UTI. - Unsure if true UTI. - Hold abx for now. - Follow urine and blood cultures. (5) Chronic anticoagulation: Code(s): Z79.01 - [facility] (current) use of anticoagulants Status: Acute Assessment and Plan: - Pt on Eliquis for A-Fib but held for now with bleeding. - Monitor closely for bleeding signs. - We'll consider resuming Eliquis if Hgb stabilizes. (6) Heart failure with preserved ejection fraction: Code(s): I50.30 - Unspecified diastolic (congestive) heart failure Status: Acute Assessment and Plan: - Appears compensated. - Monitor closely with IVF hydration. - No diuresis for now. (7) Obstructive sleep apnea on CPAP: Code(s): G47.33 - Obstructive sleep apnea (adult) (pediatric) Status: Acute Assessment and Plan: - CPAP bedtime or supplemental O2 if unable to tolerate CPAP. Time Spent With Patient Time with patient: 15 - 25 minutes Subjective Date/time seen: 11/12/24 11:30 Patient states he's doing alright, only some soreness on his bottom. Interval history: Patient calm on bedrest and looks to be in no acute distress. Review of Systems Review of Systems: 12 systems were reviewed and are negative except for as per HPI. All systems reviewed & are unremarkable except as noted in HPI and below Exam Narrative: General: Chronically ill-appearing male on bedrest and in no acute distress. Weight: 79.85 kg. BMI: 26.8. HEENT: Atraumatic, PERRL, EOMI. Sclera anicteric. Oral mucosa is tacky. Neck: Supple. No obvious JVD. Respiratory: Respirations are nonlabored and lungs are clear to auscultation. Cardiovascular: Regular rate and rhythm. Systolic murmur left upper sternal border. Gastrointestinal: Abdomen is soft, nontender, and nondistended with positive bowel sounds. Genitourinary: Barnard catheter draining melvin colored urine. Skin: Warm and dry. Stage II ulcer on darnell buttocks. Unstageable ulcer to coccyx. No bleeding noted at this time. Extremities: No cyanosis, clubbing, trace edema darnell. LE. Radial and pedal pulses intact. Neurological: Alert. Cranial nerves II-XII grossly intact. Contracture to darnell. LE. Psychiatric: Pleasant and cooperative with normal mood and flat affect. Objective Data Vital Signs Vital Signs: Vital Signs - 24 hr 11/11/24 14:52 11/11/24 14:56 11/11/24 15:05 Temperature 97.7 F Pulse Rate 79 74 72 Respiratory Rate 18 18 18 Blood Pressure 98/53 L Pulse Oximetry 98 Oxygen Delivery Oxygen Flow Rate Fraction of Inspired Oxygen 11/11/24 16:00 11/11/24 20:00 11/11/24 20:00 Temperature Pulse Rate 74 73 Respiratory Rate Blood Pressure Pulse Oximetry 96 Oxygen Delivery Nasal Cannula Oxygen Flow Rate 2 Fraction of Inspired Oxygen 11/11/24 20:30 11/11/24 21:14 11/11/24 21:23 Temperature 97.7 F Pulse Rate 74 74 74 Respiratory Rate 18 18 18 Blood Pressure 110/56 L Pulse Oximetry 96 Oxygen Delivery Oxygen Flow Rate Fraction of Inspired Oxygen 11/11/24 21:24 11/12/24 00:00 11/12/24 04:00 Temperature Pulse Rate 75 71 Respiratory Rate Blood Pressure Pulse Oximetry 96 Oxygen Delivery Nasal Cannula Oxygen Flow Rate 2 Fraction of Inspired Oxygen 11/12/24 06:00 11/12/24 07:19 11/12/24 07:19 Temperature 97.8 F Pulse Rate 67 66 Respiratory Rate 16 18 Blood Pressure 121/62 Pulse Oximetry 100 98 Oxygen Delivery Nasal Cannula Oxygen Flow Rate 2 Fraction of Inspired Oxygen 28 11/12/24 07:32 Temperature Pulse Rate 67 Respiratory Rate 18 Blood Pressure Pulse Oximetry Oxygen Delivery Oxygen Flow Rate Fraction of Inspired Oxygen Intake/Output Intake/Output: Intake & Output 11/09/24 11/10/24 11/11/24 11/12/24 23:59 23:59 23:59 23:59 Intake Total 1200 940 340 Output Total 850 950 Balance 1200 90 -610 Meds/Results Medications: Active Medications Generic Name Dose Route Start Last Admin Trade Name Freq PRN Reason Stop Dose Admin Acetaminophen 650 mg 11/10/24 23:00 11/11/24 20:29 Acetaminophen 325 Mg Tablet PO 650 mg Q6H PRN Administration Mild Pain (1-3) or Fever Albuterol 1 puff 11/10/24 22:41 Albuterol Sulfate (*Sp) Aerosol 1 Puff INHALATION Q4HRT PRN Shortness Of Breath Ascorbic Acid 500 mg 11/11/24 09:00 11/12/24 09:19 Ascorbic Acid 500 Mg Tablet PO 500 mg BID JILLIAN Administration Bisacodyl 10 mg 11/10/24 22:41 Bisacodyl 10 Mg Suppository RECTAL DAILY PRN Constipation Bisacodyl 10 mg 11/11/24 09:00 Bisacodyl 5 Mg Tablet Ec PO BID [facility] Bupropion HCl 150 mg 11/11/24 09:00 11/12/24 09:19 Bupropion Hcl Xl (24 Hr) 150 Mg Tabcr PO 150 mg DAILY [facility] Administration Fluoxetine HCl 20 mg 11/11/24 09:00 11/12/24 09:20 Fluoxetine Hcl 20 Mg Capsule PO 20 mg DAILY [facility] Administration Gabapentin 100 mg 11/11/24 09:00 11/12/24 12:14 Gabapentin 100 Mg Capsule PO 100 mg TID [facility] Administration Sodium Chloride 1,000 mls @ 60 mls/hr 11/11/24 17:10 11/11/24 17:21 Normal Saline Iv IV CONT 60 mls/hr .[id number] [facility] Administration Ipratropium Darby 0.5 mg 11/11/24 08:00 11/12/24 07:19 Ipratropium Br 0.02% Inh Soln 0.5 Mg/2.5 Ml Vial INHALATION 0.5 mg TIDRT [facility]IAN Administration Lactulose 20 gm 11/11/24 17:00 Lactulose 20 Gm/30 Ml Udc PO TID [facility] Levothyroxine Sodium 25 mcg 11/11/24 21:00 11/11/24 20:29 Levothyroxine Sodium 25 Mcg Tablet PO 25 mcg HS [facility] Administration Methadone HCl 5 mg 11/11/24 09:00 11/12/24 09:19 Methadone Hcl (*Crx) 5 Mg Tablet PO 5 mg BID [facility] Administration Mirtazapine 15 mg 11/11/24 21:00 11/11/24 20:29 Mirtazapine 15 Mg Tablet PO 15 mg HS [facility] Administration Miscellaneous Information 1 each 11/10/24 00:01 11/11/24 08:54 Nonformulary Drug (Trospium 20 Mg Tablet) Can Patient Use From Home? XX 12/10/24 00:00 Not Given CLARIFY [facility] Multivitamins/Minerals 1 tab 11/11/24 12:00 11/12/24 12:14 Multivitamins /C Lutein (Centrum Silver) Tablet *Bkc PO 1 tab DAILY@1200 [facility] Administration Non-Formulary Medication 20 mg 11/11/24 09:00 Trospium PO 12/11/24 08:59 BID JILLIAN Olanzapine 5 mg 11/11/24 09:00 11/12/24 09:19 Olanzapine 5 Mg Tablet PO 5 mg BID JILLIAN Administration Pantoprazole Sodium 40 mg 11/11/24 09:00 11/12/24 09:19 Pantoprazole 40 Mg Tablet PO 40 mg QAM JILLIAN Administration Potassium Chloride 20 meq 11/11/24 09:00 11/12/24 09:19 Potassium Chloride 20 Meq Er Tablet PO 20 meq BID [facility]ILLIAN Administration Ropinirole HCl 1 mg 11/11/24 21:00 11/11/24 20:29 Ropinirole Hcl 1 Mg Tablet PO 1 mg HS [facility] Administration Fluticasone/Salmeterol 2 puff 11/11/24 08:00 11/12/24 07:20 Fluticasone/Salmeterol 45-21 Mcg Inhaler 1 Puff INHALATION 2 puff Q12HRT JILLIAN Administration Sucralfate 1 gm 11/11/24 06:30 11/12/24 12:14 Sucralfate 1 Gm Tablet PO 1 gm TIDAC [facility] Administration Tamsulosin HCl 0.4 mg 11/11/24 21:00 11/11/24 20:29 Tamsulosin Hcl 0.4 Mg Capsule PO 0.4 mg HS [facility]ILLIAN Administration Radiology Results: ITS Impressions Abdomen/Pelvis CT 11/10/24 14:42 IMPRESSION: Findings consistent with portal hypertension, as detailed above. No soft tissue abnormality detected within the the posterior margin of the pelvis consistent with patient's history. If a sacral decubitus ulcer does exist and was not included on the submitted images, portal hypertension can increase bleeding of these areas and should be included in the differential diagnosis. Chest X-Ray 11/10/24 19:34 IMPRESSION: No focal infiltrate or effusion. Labs Labs: Laboratory Results - last 24 hr 11/11/24 11/11/24 11/12/24 17:09 20:34 09:09 Hgb Hct POC Capillary Glucose 94 105 96 11/12/24 10:25 Hgb 8.9 L Hct 30.1 L POC Capillary Glucose Quality VTE Prophylaxis VTE prophylaxis: mechanical ordered Hospitalist [facility] Advance Care Plan I have confirmed that the patient's Advanced Care Plan is present, code status is documented, or surrogate decision maker is listed in patient medical record.: Yes Medication Reconciliation I have utilized all available resources to obtain, update and review the patients current medications (includes all prescriptions, OTC, herbals, cannabis, and nutritional supplements).: Yes
[2024-11-12 17:24] LABS: Glucose Point of Care 104 mg/dl (65-105)
[2024-11-12] MEDS: ACETAMINOPHEN 325 MG TABLET 650 MG PO (17:57)
[2024-11-12] MEDS: MIRTAZAPINE 15 MG TABLET PO (20:27)
[2024-11-12] MEDS: LEVOTHYROXINE SODIUM 25 MCG TABLET PO (20:27)
[2024-11-12] MEDS: rOPINIRole HCL 1 MG TABLET PO (20:27)
[2024-11-12] MEDS: TAMSULOSIN HCL 0.4 MG CAPSULE PO (20:27)
[2024-11-12 21:39] LABS: Glucose Point of Care 105 mg/dl (65-105)
[2024-11-13] VITALS (13 sets, daily range): BP systolic 114–128; BP diastolic 62–66; PULSE 72–91; RESP 16–20; TEMP 36.2–36.4; O2SAT 94–99
[2024-11-13] MEDS: SUCRALFATE 1 GM TABLET PO ×3 (05:26→17:01)
[2024-11-13 06:22] LABS: Hematocrit 26.9 % (42.0-52.0); Hemoglobin 8.2 g/dL (14.0-18.0)
[2024-11-13] MEDS: POTASSIUM CHLORIDE 20 MEQ ER TABLET PO ×2 (08:50→17:01)
[2024-11-13] MEDS: methADONE HCL (*CRX) 5 MG TABLET PO ×2 (08:51→17:01)
[2024-11-13] MEDS: GABAPENTIN 100 MG CAPSULE PO ×3 (08:51→17:01)
[2024-11-13] MEDS: PANTOPRAZOLE 40 MG TABLET PO (08:51)
[2024-11-13] MEDS: buPROPion HCL XL (24 HR) 150 MG TABCR PO (08:51)
[2024-11-13] MEDS: ASCORBIC ACID 500 MG TABLET PO ×2 (08:51→17:01)
[2024-11-13] MEDS: FLUoxetine HCL 20 MG CAPSULE PO (08:51)
[2024-11-13] MEDS: OLANZapine 5 MG TABLET PO ×2 (08:51→17:01)
[2024-11-13 08:54] LABS: Glucose Point of Care 74 mg/dl (65-105)
[2024-11-13] MEDS: IPRATROPIUM BR 0.02% INH SOLN 0.5 MG/2.5 ML VIAL INHALATION ×3 (09:28→20:02)
[2024-11-13] MEDS: FLUTICASONE/SALMETEROL 45-21 MCG INHALER 1 PUFF 2 PUFF INHALATION ×2 (09:28→20:02)
[2024-11-13] MEDS: MULTIVITAMINS /C LUTEIN (CENTRUM SILVER) TABLET *BKC 1 TAB PO (11:49)
[2024-11-13 12:12] LABS: Glucose Point of Care 81 mg/dl (65-105)
--- NOTE | 2024-11-13 14:12 | P.DS_ITS ---
DS: Admitting Diagnosis Discharge Date 11/13/24 Admitting Diagnosis Acute on Chronic Anemia DS: Discharge Diagnosis Discharge Diagnosis (1) Anemia: Code(s): D64.9 - Anemia, unspecified Status: Acute Assessment and Plan: - Possibly from wound bleeding vs portal hypotension vs other. - No obvious signs of bleeding noted inpatient. - Hgb stable inpatient prior to discharge. (2) Hypotension: Code(s): I95.9 - Hypotension, unspecified Status: Acute Assessment and Plan: - Possibly related to anemia vs meds vs other. - Treated with albumin and IVF hydration. - Much improved inpatient prior to discharge. (3) Pressure ulcer: Code(s): L89.90 - Pressure ulcer of unspecified site, unspecified stage Status: Acute Assessment and Plan: - Appeared non-infected. - Seen by wound nurse and managed by nursing staff. (4) Asymptomatic bacteriuria: Code(s): R82.71 - Bacteriuria Status: Acute Assessment and Plan: - Hx of MDR UTI. - Unsure if true UTI vs colonization. - Blood cultures negative. - Pt unable to report symptoms. - Urine culture +ve for E.Coli, sensitive to Macrobid. - Will discharge on Macrobid. (5) Chronic anticoagulation: Code(s): Z79.01 - [facility] (current) use of anticoagulants Status: Acute Assessment and Plan: - Pt on Eliquis and we'll resume on discharge. (6) Heart failure with preserved ejection fraction: Code(s): I50.30 - Unspecified diastolic (congestive) heart failure Status: Acute Assessment and Plan: - Compensated inpatient. (7) Obstructive sleep apnea on CPAP: Code(s): G47.33 - Obstructive sleep apnea (adult) (pediatric) Status: Acute Assessment and Plan: - CPAP bedtime or supplemental O2 if unable to tolerate CPAP. Plan Discharge back to SNF DS: Summary Hospital Course Reason for hospitalization: Acute on Chronic Anemia Hospital Course: Patient was admitted for acute on chronic anemia. Apparently he was noted with blood on his clothing at his SNF while he was at the [facility] [employer] for lunch. A blood-soaked dressing was removed from the posterior region and he was reportedly bleeding from an open wound on the coccyx. The patient was unaware of the wound on his backside but he reports discomfort recently when lying supine. Patient's wound appeared non-infected and no bleeding was observed from the wound inpatient. No other obvious signs of bleeding were noted during patient's hospital stay and his hemoglobin stabilized > 8 prior to his discharge. He was suspected of having a UTI but patient was unable to report any symptoms. Patient has a Hx of MDR UTI and had negative blood cultures, with his urine culture growing E.Coli. Patient is being discharged on Macrobid per urine culture sensitivities. Patient is currently fairly well oriented and medically stable for discharge back to his SNF, with no acute distress noted or reported prior to discharge. Status at Discharge Functional status at discharge: bed bound Overall status at discharge: patient is progressing back to baseline Time Spent with Patient Time attestation: Total time spent providing and/or coordinating discharge services: Time spent: Greater than 30 minutes Exam Narrative: General: Chronically ill-appearing male in no acute distress. HEENT: Atraumatic, PERRL, EOMI. Sclera anicteric. Oral mucosa is tacky. Neck: Supple. No obvious JVD. Respiratory: Respirations are nonlabored and lungs are clear to auscultation. Cardiovascular: Regular rate and rhythm. Systolic murmur left upper sternal border. Gastrointestinal: Abdomen is soft, nontender, and nondistended with positive bowel sounds. Genitourinary: Barnard catheter draining melvin colored urine. Skin: Warm and dry. Stage II ulcer on darnell buttocks. Unstageable ulcer to coccyx. No bleeding noted on wounds. Extremities: No cyanosis, clubbing, no edema darnell. Radial and pedal pulses intact. Neurological: Alert. Cranial nerves II-XII grossly intact. Contracture to darnell. LE. Psychiatric: Pleasant and cooperative with normal appropriate mood and affect. DS: Data Data Completed and Pending Labs on day of discharge: Labs from last 24 hours 11/13/24 11/13/24 11/13/24 12:03 08:52 05:42 Hgb 8.2 L Hct 26.9 L POC Capillary Glucose 81 74 11/12/24 11/12/24 21:15 17:12 Hgb Hct POC Capillary Glucose 105 104 Preliminary micro results at discharge 11/10/24 13:56 Blood Culture - Preliminary Blood 11/10/24 13:53 Blood Culture - Preliminary Blood Discharge Plan Discharge Attending physician on discharge: Kye Weaver Discharging Clinician: Fareed Petty Anticipated Discharge Date/Time: 11/13/24 14:40 Patient Disposition: SNF Activity: as tolerated Diet: as tolerated Patient Instructions: Heart Failure (GEN) Patient Language: [place]an Stand Alone Forms: General Discharge Information Follow-up/Referrals: Jewel Aleman MD [Primary Care Provider] - 1 Week Discharge Medications: New nitrofurantoin monohyd/m-cryst [Macrobid] 100 mg capsule 100 mg PO Q12H 5 Days Qty: 10 0RF Rx Instructions: must administer with a meal/food Continued ondansetron 8 mg Tablet,Disintegrating 8 mg PO Q8H PRN (Reason: Nausea) ropinirole 1 mg tablet 1 mg PO HS albuterol sulfate 90 mcg/actuation HFA aerosol inhaler 1 puff INHALATION Q4H PRN (Reason: Shortness Of Breath) acetaminophen 325 mg Tablet 650 mg PO Q6H PRN (Reason: Pain, Mild) ascorbic acid (vitamin C) 500 mg Tablet 500 mg PO BID bisacodyl [Dulcolax (bisacodyl)] 5 mg Tablet,Delayed Release (Dr/Ec) 10 mg PO BID lactulose 10 gram/15 mL Solution 20 g PO TID Adults Multivitamin 18 mg iron-400 mcg-25 mcg Tablet 1 tablet PO DAILY Pro-Stat Sugar Free 15 gram liquid 30 ml PO DAILY methadone 5 mg tablet 5 mg PO BID bisacodyl 10 mg Suppository 10 mg RECTAL DAILY PRN (Reason: Constipation) Qty: 12 0RF sucralfate [Carafate] 1 gram Tablet 1 g PO TID levothyroxine 25 mcg Tablet 25 mcg PO DAILY polyethylene glycol 3350 [Miralax] 17 gram powder in packet 17 g PO DAILY PRN (Reason: Constipation) Tigan 100 mg/mL solution 100 mg IM ONCE PRN (Reason: migraines) levalbuterol HCl 1.25 mg/3 mL solution for nebulization 1.25 mg inhalation Q6H PRN (Reason: SOB) pantoprazole 40 mg tablet,delayed release (DR/EC) 40 mg PO QAM Qty: 30 0RF bupropion HCl 300 mg tablet extended release 24 hr 150 mg PO DAILY olanzapine 5 mg Tablet 5 mg PO BID fluoxetine 20 mg Capsule 20 mg PO DAILY potassium chloride 20 mEq Tablet Extended Release 20 meq PO BID ipratropium bromide 0.02 % Solution 0.5 mg inhalation TID Qty: 75 0RF Symbicort 2 puff inhalation BID Qty: 1 0RF clopidogrel [Plavix] 75 mg Tablet 75 mg PO DAILY diphenhydramine HCl [Benadryl Allergy] 25 mg Tablet 25 mg PO TID PRN (Reason: allergies) mirtazapine [Remeron] 15 mg Tablet 15 mg PO HS trospium 20 mg Tablet 20 mg PO BID Rx Instructions: administer on an empty stomach Eliquis 5 mg Tablet 5 mg PO Q12HR Qty: 90 0RF Rx Instructions: start taking 5 mg twice a day on 10/16 bisacodyl [Laxative (bisacodyl)] 5 mg Tablet,Delayed Release (Dr/Ec) 5 mg PO QAM Qty: 30 0RF tamsulosin 0.4 mg capsule 0.4 mg PO HS gabapentin 100 mg capsule 100 mg PO TID Qty: 90 0RF Date of admission: 11/12/24 09:06 Primary Care Provider: Jewel Aleman Admitting Provider: Mahesh Waite Attending physician on admission: Mahesh Waite Condition: Stable Quality VTE Prophylaxis VTE prophylaxis: pharmacologic ordered Hospitalist MIPS Heart Failure (Exclusion) Patient has history of Heart Transplant or Left Ventricular Assistive Device?: No IF YES, STOP HERE Heart Failure (Qualifier) Patient has current or prior documentation of LVEF less than or equal to 40%, or mod/servere depressed LVSF?: No IF NO, STOP HERE
[2024-11-13 17:10] LABS: Glucose Point of Care 111 mg/dl (65-105)
[2024-11-13] MEDS: ACETAMINOPHEN 325 MG TABLET 650 MG PO (17:30)
[2024-11-13] MEDS: TAMSULOSIN HCL 0.4 MG CAPSULE PO (20:15)
[2024-11-13] MEDS: MIRTAZAPINE 15 MG TABLET PO (20:15)
[2024-11-13] MEDS: rOPINIRole HCL 1 MG TABLET PO (20:16)
[2024-11-13] MEDS: LEVOTHYROXINE SODIUM 25 MCG TABLET PO (20:16)
[2024-11-13 21:20] LABS: Glucose Point of Care 90 mg/dl (65-105)
== END 2024-11-13 22:59 | DRG 812 ==
LOC: ANHED 13:37 → ANH3MED 21:06
PROVIDERS: Physician Assistant; Admitting Provider Internal Medicine; Emergency Provider Emergency Medicine; PCP Family Medicine; Visit Provider Nurse Practitioner Adult Health
DX: D62 Acute posthemorrhagic anemia (principal); I50.32 Chronic diastolic (congestive) heart failure; J96.11 Chronic respiratory failure with hypoxia; F33.9 Major depressive disorder, recurrent, unspecified; L89.150 Pressure ulcer of sacral region, unstageable; I95.89 Other hypotension; T50.995A Adverse effect of other drugs, medicaments and biological substances, initial encounter; D64.9 Anemia, unspecified; R82.71 Bacteriuria; B96.20 Unspecified Escherichia coli [E. coli] as the cause of diseases classified elsewhere; I95.2 Hypotension due to drugs; I25.10 Atherosclerotic heart disease of native coronary artery without angina pectoris; M79.7 Fibromyalgia; M19.90 Unspecified osteoarthritis, unspecified site; E78.2 Mixed hyperlipidemia; I35.0 Nonrheumatic aortic (valve) stenosis; E11.9 Type 2 diabetes mellitus without complications; G47.33 Obstructive sleep apnea (adult) (pediatric); N40.0 Benign prostatic hyperplasia without lower urinary tract symptoms; I48.0 Paroxysmal atrial fibrillation; E03.9 Hypothyroidism, unspecified; J44.9 Chronic obstructive pulmonary disease, unspecified; G25.81 Restless legs syndrome; Z66 Do not resuscitate; Z74.01 Bed confinement status; I25.2 Old myocardial infarction; Z85.118 Personal history of other malignant neoplasm of bronchus and lung; Z79.01 Long term (current) use of anticoagulants; Z87.891 Personal history of nicotine dependence; Z99.81 Dependence on supplemental oxygen
CPT/HCPCS: 36415; 71045; 74177; 80048; 80053; 81001; 82948; 83605; 83735; 85014; 85018; 85025; 85027; 85610; 85730; 86850; 86900; 86901; 87040; 87086; 87186; 94640; 96361; 96365; 96366; 96367; 96375; 99285; A9270; G0378; J1171; J2185; J7030; P9047; Q9967

== ENCOUNTER 2024-11-17 23:39 | Inpatient (IN) | payer MEDICARE, MEDICAID, SELFPAY ==
[2024-11-17] VITALS (15 sets, daily range): BP systolic 91–126; BP diastolic 56–108; PULSE 82–107; RESP 17–37; TEMP 37.1; O2SAT 97–100
--- NOTE | ~2024-11-17 | CT_ITS ---
EXAMINATION: CT diagnostic chest wo con DATE: 11/17/2024 22:27 INDICATION: Hypoxia TECHNIQUE: Computed tomography (CT) of the chest was performed without intravenous contrast. Addition al 3D reconstructions utilizing coronal maximum intensity projection (MIP) were performed. Automated exposure control and iterative reconstruction technique were employed. The dose-length product was 47 1.87 mGy-cm. COMPARISON: 10/27/2024 FINDINGS: Persistent consolidation of the right upper lobe but with lesser degree of volume loss and would be e xpected for simple collapse and suggests underlying pneumonia or malignancy. Small posterior layering left pleural effusion with consolidation in the dependent left lower lobe and reticular nodular opac ities in much of the remaining left lower lobe which is suspicious for pneumonia. Additional tree-in- bud opacities suspicious for pneumonia in the posterior lingula. There are unilateral calcified pleur al plaques at the posterior right hemithorax suggesting sequela of chronic exudative effusion. Bubbly mucus in the trachea. Heart size is normal. Atherosclerotic coronary artery calcifications. No peric ardial effusion. Aortic valve calcification. Thoracic aorta is normal in caliber. Right internal jugu lar central venous port catheter with distal tip at the superior cavoatrial junction. No pathological ly enlarged thoracic lymphadenopathy. Bilateral gynecomastia. Visualized upper abdomen is unremarkabl e. Severe thoracic spondylosis. IMPRESSION: 1. Persistent consolidation in the right upper lobe to a recent part to atelectasis but with lesser d egree of volume loss expected for simple collapse and could not exclude underlying pneumonia or malig keiko. 2. Worsening lung disease in the left lower lobe and posterior lingula suspicious for pneumonia. 3. Increasing small left pleural effusion. Reviewed, dictated and finalized at location A. HAND IMPRESSION: 1. Persistent consolidation in the right upper lobe to a recent part to atelect asis but with lesser degree of volume loss expected for simple collapse and cou ld not exclude underlying pneumonia or malignancy. 2. Worsening lung disease in the left lower lobe and posterior lingula suspicio us for pneumonia. 3. Increasing small left pleural effusion.
--- NOTE | ~2024-11-17 | XR_ITS ---
EXAMINATION: XR chest 1V portable Exam Date/Time: 11/17/2024 19:35 SECURITY SYSTEM ANALYST HISTORY: sob Comparison: 11/10/2024. RESULT: Lines, tubes, and devices: Right chest port terminating at the cavoatrial junction. Lungs and pleura: Increased mild diffuse reticular opacities. Stable volume loss and opacity in the right upper lung. Minimal bibasilar scar/atelectasis. Cardiomediastinal silhouette: Stable. Other: No acute osseous or upper abdominal finding. IMPRESSION: Mild interstitial edema. Reviewed, dictated and finalized at location K. RITY SYSTEM ANALYST IMPRESSION: Mild interstitial edema.
--- NOTE | 2024-11-17 19:27 | ECG_ITS ---
Test Date: 2024-11-17 19:33:39 Measurements Intervals [place] Rate: 98 P: 54 CA: 173 QRS: 31 QRSD: 106 T: 62 QT: 384 QTc: 492 Interpretive Statements SINUS RHYTHM nonspecific t abnormalities Compared to ECG 10/05/2024 15:37:13 Possible ischemia now present Sinus tachycardia no longer present Ventricular premature complex(es) no longer present Electronically Signed On 11-17-2024 22:34:48 FUR WEIGHER by Rebecca Daley M.D.
[2024-11-17 19:38] LABS: Basophils Percent Auto 0.2 % (0.2-1.2); Eosinophils Absolute Auto 0.7 K/mm3 (0-0.3); Eosinophils Percent Auto 6.1 % (0-4.4); Hematocrit 35.7 % (42.0-52.0); Hemoglobin 10.9 g/dL (14.0-18.0); Immature Granulocyte Absolute 0.03 K/mm3 (0.00-0.031); Immature Granulocyte Percent A 0.3 % (0-0.5); Lymphocytes Absolute Auto 0.53 K/mm3 (0.9-3.2); Lymphocytes Percent Auto 4.8 % (18.3-44.2); Mean Corpuscular HGB Conc 30.5 g/dl (32-36); Mean Corpuscular Hemoglobin 29.5 pg (26-34); Mean Corpuscular Volume 96.7 fl (80-100); Mean Platelet Volume 9.7 fl (7.4-10.4); Monocytes Absolute Auto 0.6 K/mm3 (0.1-0.6); Monocytes Percent Auto 5.3 % (2.6-8.5); Neutrophils Absolute Auto 9.3 K/mm3 (1.3-6.7); Neutrophils Percent Auto 83.3 % (45.5-73.1); Platelet Count Result 189 k/mm3 (150-375); Red Blood Count 3.69 M/mm3 (4.6-6.20); Red Cell Distribution Width 15.5 % (11.5-14.5); White Blood Count 11.1 K/mm3 (4.5-10.0)
[2024-11-17 19:48] LABS: Alanine Aminotransferase 9 U/L (6-50); Albumin Level 2.7 g/dL (3.5-5.1); Alkaline Phosphatase 93 U/L (38-126); Anion Gap -3 mmol/L (4-12); Aspartate Amino Transferase 23 U/L (17-59); Bilirubin,Total 0.6 mg/dL (0.2-1.3); Blood Urea Nitrogen 22 mg/dL (9-20); Calcium 8.8 mg/dL (8.4-10.2); Carbon Dioxide 37 mmol/L (22-30); Chloride 103 mmol/L (98-107); Estimated CRCL calculation 62 ml/min; Estimated Glomerular Filt Rate > 60; Glucose 129 mg/dL (65-110); Potassium 4.2 mmol/L (3.4-5.0); Sodium 137 mmol/L (137-145)
[2024-11-17] MEDS: FUROSEMIDE INJ 40 MG/4 ML VIAL IV PUSH (20:32)
[2024-11-17] MEDS: IPRATROPIUM 0.5 MG/ALBUTEROL SULFATE 2.5 MG AMPUL.NEB 3 ML 12 ML INHALATION (20:48)
[2024-11-17] MEDS: CEFEPIME 2 GM/NS 50 ML 2 GM/50 ML BAG IVPB (21:04)
[2024-11-17 21:17] LABS: Alveolar/Arterial O2 Gradient 208.8 mmHg; Base Excess ABG 2.6 mEq/l (+/-2.0); Fractional Inspired Oxygen 50 %; HCO3 ABG 28.7 mEq/l (22.0-26.0); Oxygen Saturation ABG 96.5 % (95.0-100.0); Oxyhemoglobin 96.2 % THb (90.0-100.0); PCO2 ABG 51.2 mmHg (35.0-45.0); PO2 ABG 90.1 mmHg (80.0-100.0); pH ABG 7.366 (7.350-7.450)
[2024-11-17 21:20] LABS: Device NON-INVASIVE VENT; Modified Allen's Test Pass; Non-Invasive Expiratory Pressure 5 CMH2O; Non-Invasive Inspiratory Pressure 15 CMH2O; Non-Invasive Vent Rate 18 /MIN; Site Drawn RIGHT RADIAL
[2024-11-17 21:23] LABS: Influenza A QL RT-PCR Negative (Negative); Influenza B QL RT-PCR Negative (Negative); RSV RNA, RT-PCR Negative (Negative); SARS-CoV-2 RNA PCR Negative (Negative)
--- NOTE | 2024-11-17 21:39 | ED.GENADULT ---
HPI - General Adult General Chief complaint: Shortness of Breath/Dyspnea Stated complaint: sob History of Present Illness HPI narrative: 78-year-old male with chronic respiratory failure presenting with difficulty breathing. Patient been doing well up until 3 hours prior to arrival that. He was found to be at 80% on his home 2 L of oxygen. Patient is denying fevers, chest pain abdominal pain nausea vomiting diarrhea. His shortness of breath. Patient is DNR DNI. Goals of care were discussed with patient's family and they are not ready for comfort measures despite his continuously declining health. Related Data Home Medications ?Medication ?Instructions ?Recorded ?Confirmed ?Last Taken ?Type ropinirole 1 mg tablet 1 mg PO HS 12/18/19 11/10/24 Unknown History bupropion HCl 300 mg 24 hr tablet, 150 mg PO DAILY 03/09/21 11/10/24 Unknown History extended release tamsulosin 0.4 mg capsule 0.4 mg PO HS 02/26/22 11/10/24 Unknown History albuterol sulfate 90 mcg/actuation 1 puff inhalation Q4H PRN 07/27/22 11/10/24 Unknown History aerosol inhaler Shortness Of Breath ondansetron 8 mg disintegrating 8 mg PO Q8H PRN Nausea 08/10/22 11/10/24 Unknown History tablet Pro-Stat Sugar Free 30 ml PO DAILY 03/23/23 11/10/24 Unknown History acetaminophen 325 mg tablet 650 mg PO Q6H PRN Pain, Mild 03/23/23 11/10/24 Unknown History ascorbic acid (vitamin C) 500 mg 500 mg PO BID 03/23/23 11/10/24 Unknown History tablet bisacodyl 5 mg tablet,delayed 10 mg PO BID 03/23/23 11/10/24 Unknown History release (Dulcolax (bisacodyl)) lactulose 10 gram/15 mL oral 20 g PO TID 03/23/23 11/10/24 Unknown History solution methadone 5 mg tablet 5 mg PO BID 03/23/23 11/10/24 Unknown History multivit with minerals-iron 18 1 tablet PO DAILY 03/23/23 11/10/24 Unknown History mg-folic ac 400 mcg-vit K 25 mcg tablet (Adults Multivitamin) levalbuterol HCl 1.25 mg/3 mL 1.25 mg inhalation Q6H PRN SOB 07/23/23 11/10/24 Unknown History solution for nebulization levothyroxine 25 mcg tablet 25 mcg PO DAILY 07/23/23 11/10/24 07/23/23 History polyethylene glycol 3350 17 gram 17 g PO DAILY PRN Constipation 07/23/23 11/10/24 Unknown History oral powder packet (Miralax) sucralfate 1 gram tablet (Carafate) 1 g PO TID 07/23/23 11/10/24 Unknown History trimethobenzamide 100 mg/mL 100 mg IM ONCE PRN migraines 07/23/23 11/10/24 Unknown History intramuscular solution (Tigan) fluoxetine 20 mg capsule 20 mg PO DAILY 06/28/24 11/10/24 Unknown History olanzapine 5 mg tablet 5 mg PO BID 06/28/24 11/10/24 Unknown History potassium chloride 20 mEq 20 meq PO BID 07/04/24 11/10/24 Unknown History tablet,extended release clopidogrel 75 mg tablet (Plavix) 75 mg PO DAILY 08/25/24 11/10/24 Unknown History diphenhydramine HCl 25 mg tablet 25 mg PO TID PRN allergies 08/25/24 11/10/24 Unknown History (Benadryl Allergy) mirtazapine 15 mg tablet (Remeron) 15 mg PO HS 08/25/24 11/10/24 Unknown History trospium 20 mg tablet 20 mg PO BID 08/25/24 11/10/24 Unknown History Allergies Allergy/AdvReac Type Severity Reaction Status Date / Time Penicillins Allergy Unknown SHORTNESS Verified 11/10/24 20:13 OF BREATH PMFSH Past Medical History Medical History Chronic anticoagulation Heart failure with preserved ejection fraction Type 2 diabetes mellitus Major depressive disorder, recurrent, unspecified Hypothyroidism Benign prostatic hyperplasia Obstructive sleep apnea Type 2 diabetes mellitus Chronic obstructive pulmonary disease Sacral decubitus ulcer Aortic valve stenosis Coronary artery disease (2019) Non-STEMI - left heart cath showed mild coronary artery disease with severe LV dysfunction EF 20% with possible underlying nonischemic cardiomyopathy, no PCI. Non-small cell carcinoma of lung Status post chemo radiation. Fibromyalgia Depression Arthritis (03/26/19) Restless legs syndrome Atrial fibrillation with controlled ventricular rate Mixed hyperlipidemia Surgical History Surgical History History of hernia repair Umbilical hernia repair. Bilateral inguinal hernia repairs. Family History Family History Sibling Patient's sister is in good health Hypertension Family history of heart disease in male family member before age 55 Mother Family history of heart disease in male family member before age 55 Patient's mother is Family history of congestive heart failure, Onset Age: 70 Father Patient's father is Acute myocardial infarction, Onset Age: 62 Grandparent Depression Family history of arthritis Family history of malignant neoplasm of breast Family history of heart disease in male family member before age 55 Other Cerebrovascular accident Family history of cardiovascular disease Social History Social History Social History: Healthcare power of real estate attorney: Harshal donahue, son ([phone]). Code status: Do not resuscitate. Smoking packs per day: 3 Smoking cigarettes per day: 60.0 Years smoked: 30 Smoking pack-years: 90.00 Smoking status: Never smoker Tobacco type: cigarettes Second hand tobacco smoke exposure: Yes Alcohol intake: never Substance use: never Substance use type: does not use Do You Feel Safe in your Home?: Yes Lack of Transportation: No Lack of Food: Never True Current Housing: I Have Housing Concerned About Future Housing: No Difficulty Paying Gas/Electric Bills: No Difficulty Paying for Meds: No Currently Unemployed: No Education: High School Diploma/GED Difficulty w/ Childcare or Family Care: No Living arrangements: residential Additional living arrangements comments: [facility] Occupation/Education: retired Additional occupation/education comments: previously in [employer] Spiritual care concerns: No Exam Narrative: APPEARANCE: Patient is chronically ill-appearing Head: atraumatic. EYES: EOMI, NOSE: Atraumatic NECK: Trachea midline RESPIRATORY: Tachypneic, hypoxic on room air, decreased lung in all all garcia. CARDIOVASCULAR: Tachycardic ABDOMINAL: Soft nontender MUSCULOSKELETAl: No obvious deformities NEURO: Alert. Moving 4/4 extremities SKIN:: Warm, dry. Normal color PSYCHIATRIC: Normal affect Course Vital Signs Vital signs: Vital Signs Temperature 98.7 F 11/17/24 19:14 Pulse Rate 100 11/17/24 19:14 Respiratory Rate 18 11/17/24 19:14 Blood Pressure 108/86 11/17/24 19:14 Pulse Oximetry 100 11/17/24 19:14 Oxygen Delivery Non-Rebreather Mask 11/17/24 19:14 Oxygen Flow Rate 15 11/17/24 19:14 Temperature 98.7 F 11/17/24 19:14 Pulse Rate 102 H 11/17/24 23:02 Respiratory Rate 21 H 11/17/24 23:02 Blood Pressure 91/56 L 11/17/24 23:02 Pulse Oximetry 100 11/17/24 23:02 Oxygen Delivery Non-Rebreather Mask 11/17/24 20:41 Oxygen Flow Rate 15 11/17/24 20:41 Medical Decision Making MDM Narrative Medical decision making narrative: -Course: 78-year-old male w/ poor baseline respiratory status presenting w/ hypoxia. Patient placed on BiPAP. Patient has CHF/COPD and history of recurrent pneumonia. He will be treated with Lasix, breathing treatments, and antibiotics. Patient will be admitted to the hospital for further management. Goals of care were discussed with the patient and his son as the patients medical condition continues to decline. They are not ready to make a decision on comfort measures or hospice. I would encourage further conversation during this admission. Vital Signs Vital Signs: Vital Signs Temperature 98.7 F 11/17/24 19:14 Pulse Rate 100 11/17/24 19:14 Respiratory Rate 18 11/17/24 19:14 Blood Pressure 108/86 11/17/24 19:14 Pulse Oximetry 100 11/17/24 19:14 Oxygen Delivery Non-Rebreather Mask 11/17/24 19:14 Oxygen Flow Rate 15 11/17/24 19:14 Temperature 98.7 F 11/17/24 19:14 Pulse Rate 102 H 11/17/24 23:02 Respiratory Rate 21 H 11/17/24 23:02 Blood Pressure 91/56 L 11/17/24 23:02 Pulse Oximetry 100 11/17/24 23:02 Oxygen Delivery Non-Rebreather Mask 11/17/24 20:41 Oxygen Flow Rate 15 11/17/24 20:41 Lab Data 11/17/24 19:32 11/17/24 19:32 Labs: Lab Results 11/17/24 11/17/24 11/17/24 Range/Units 19:29 19:32 20:35 WBC 11.1 H (4.5-10.0) K/mm3 RBC 3.69 L (4.6-6.20) M/mm3 Hgb 10.9 L (14.0-18.0) g/dL Hct 35.7 L (42.0-52.0) % MCV 96.7 (80-100) fl MCH 29.5 (26-34) pg MCHC 30.5 L (32-36) g/dl RDW 15.5 H (11.5-14.5) % Plt Count 189 (150-375) k/mm3 MPV 9.7 (7.4-10.4) fl Immature Gran % (Auto) 0.3 (0-0.5) % Neut % (Auto) 83.3 H (45.5-73.1) % Lymph % (Auto) 4.8 L (18.3-44.2) % [place] % (Auto) 5.3 (2.6-8.5) % Eos % (Auto) 6.1 H (0-4.4) % Baso % (Auto) 0.2 (0.2-1.2) % Lymph # (Auto) 0.53 L (0.9-3.2) K/mm3 [place] # (Auto) 0.6 (0.1-0.6) K/mm3 Eos # (Auto) 0.7 H (0-0.3) K/mm3 Baso # (Auto) 0.0 (0.0-0.1) K/mm3 Abs Immat Gran (auto) 0.03 (0.00-0.031) K/mm3 Absolute Neuts (auto) 9.3 H (1.3-6.7) K/mm3 Absolute Nucleated RBC 0.000 (0.0-0.012) K/mm3 Nucleated RBC % 0.0 (0.0-0.2) % Expiratory Pressure CMH2O Inspiratory Pressure CMH2O Sodium 137 (137-145) mmol/L Potassium 4.2 (3.4-5.0) mmol/L Chloride 103 (98-107) mmol/L Carbon Dioxide 37 H (22-30) mmol/L Anion Gap -3 L (4-12) mmol/L BUN 22 H D (9-20) mg/dL Creatinine 0.80 (0.7-1.3) mg/dL Estim Creat Clear Calc 62 ml/min Estimated GFR > 60 (59 - ) Glucose 129 H (65-110) mg/dL Calcium 8.8 (8.4-10.2) mg/dL Total Bilirubin 0.6 (0.2-1.3) mg/dL AST 23 (17-59) U/L ALT 9 (6-50) U/L Alkaline Phosphatase 93 (38-126) U/L Troponin I < 0.012 (0.000-0.034) ng/mL NT-Pro-B Natriuret Pep 725 H (19.9-100) pg/mL Total Protein 6.0 L (6.3-8.2) g/dL Albumin 2.7 L (3.5-5.1) g/dL Urine Color (Yellow) Urine Appearance (Clear) Urine pH (5.0-9.0) Ur Specific [place] (1.001-1.035) Urine Protein (Negative) mg/dL Urine Glucose (UA) (Negative) mg/dL Urine Ketones (Negative) mg/dL Ur Blood (Man) (Negative) Urine Nitrate (Negative) Urine Bilirubin (Negative) Urine Urobilinogen (<2.0) mg/dL Leukocyte Esterase Rfl (Negative) NICKY/UL Urine RBC (0-2) /hpf Urine WBC (0-3) /hpf Ur Squamous Epith Cells (Few) /hpf Urine Bacteria /hpf Urine Casts Nasal MRSA (PCR) (NOT DETECTE) Influenza A (RT-PCR) Negative (Negative) Influenza B (RT-PCR) Negative (Negative) RSV (RT-PCR) Negative (Negative) SARS-CoV-2 RNA (RT-PCR) Negative (Negative) 11/17/24 11/17/24 11/17/24 Range/Units 20:53 21:02 22:50 WBC (4.5-10.0) K/mm3 RBC (4.6-6.20) M/mm3 Hgb (14.0-18.0) g/dL Hct (42.0-52.0) % MCV (80-100) fl MCH (26-34) pg MCHC (32-36) g/dl RDW (11.5-14.5) % Plt Count (150-375) k/mm3 MPV (7.4-10.4) fl Immature Gran % (Auto) (0-0.5) % Neut % (Auto) (45.5-73.1) % Lymph % (Auto) (18.3-44.2) % [place] % (Auto) (2.6-8.5) % Eos % (Auto) (0-4.4) % Baso % (Auto) (0.2-1.2) % Lymph # (Auto) (0.9-3.2) K/mm3 [place] # (Auto) (0.1-0.6) K/mm3 Eos # (Auto) (0-0.3) K/mm3 Baso # (Auto) (0.0-0.1) K/mm3 Abs Immat Gran (auto) (0.00-0.031) K/mm3 Absolute Neuts (auto) (1.3-6.7) K/mm3 Absolute Nucleated RBC (0.0-0.012) K/mm3 Nucleated RBC % (0.0-0.2) % Expiratory Pressure 5 CMH2O Inspiratory Pressure 15 CMH2O Sodium (137-145) mmol/L Potassium (3.4-5.0) mmol/L Chloride (98-107) mmol/L Carbon Dioxide (22-30) mmol/L Anion Gap (4-12) mmol/L BUN (9-20) mg/dL Creatinine (0.7-1.3) mg/dL Estim Creat Clear Calc ml/min Estimated GFR (59 - ) Glucose (65-110) mg/dL Calcium (8.4-10.2) mg/dL Total Bilirubin (0.2-1.3) mg/dL AST (17-59) U/L ALT (6-50) U/L Alkaline Phosphatase (38-126) U/L Troponin I < 0.012 (0.000-0.034) ng/mL NT-Pro-B Natriuret Pep (19.9-100) pg/mL Total Protein (6.3-8.2) g/dL Albumin (3.5-5.1) g/dL Urine Color (Yellow) Urine Appearance (Clear) Urine pH (5.0-9.0) Ur Specific [place] (1.001-1.035) Urine Protein (Negative) mg/dL Urine Glucose (UA) (Negative) mg/dL Urine Ketones (Negative) mg/dL Ur Blood (Man) (Negative) Urine Nitrate (Negative) Urine Bilirubin (Negative) Urine Urobilinogen (<2.0) mg/dL Leukocyte Esterase Rfl (Negative) NICKY/UL Urine RBC (0-2) /hpf Urine WBC (0-3) /hpf Ur Squamous Epith Cells (Few) /hpf Urine Bacteria /hpf Urine Casts Nasal MRSA (PCR) Detected A* (NOT DETECTE) Influenza A (RT-PCR) (Negative) Influenza B (RT-PCR) (Negative) RSV (RT-PCR) (Negative) SARS-CoV-2 RNA (RT-PCR) (Negative) 11/17/24 Range/Units 22:53 WBC (4.5-10.0) K/mm3 RBC (4.6-6.20) M/mm3 Hgb (14.0-18.0) g/dL Hct (42.0-52.0) % MCV (80-100) fl MCH (26-34) pg MCHC (32-36) g/dl RDW (11.5-14.5) % Plt Count (150-375) k/mm3 MPV (7.4-10.4) fl Immature Gran % (Auto) (0-0.5) % Neut % (Auto) (45.5-73.1) % Lymph % (Auto) (18.3-44.2) % [place] % (Auto) (2.6-8.5) % Eos % (Auto) (0-4.4) % Baso % (Auto) (0.2-1.2) % Lymph # (Auto) (0.9-3.2) K/mm3 [place] # (Auto) (0.1-0.6) K/mm3 Eos # (Auto) (0-0.3) K/mm3 Baso # (Auto) (0.0-0.1) K/mm3 Abs Immat Gran (auto) (0.00-0.031) K/mm3 Absolute Neuts (auto) (1.3-6.7) K/mm3 Absolute Nucleated RBC (0.0-0.012) K/mm3 Nucleated RBC % (0.0-0.2) % Expiratory Pressure CMH2O Inspiratory Pressure CMH2O Sodium (137-145) mmol/L Potassium (3.4-5.0) mmol/L Chloride (98-107) mmol/L Carbon Dioxide (22-30) mmol/L Anion Gap (4-12) mmol/L BUN (9-20) mg/dL Creatinine (0.7-1.3) mg/dL Estim Creat Clear Calc ml/min Estimated GFR (59 - ) Glucose (65-110) mg/dL Calcium (8.4-10.2) mg/dL Total Bilirubin (0.2-1.3) mg/dL AST (17-59) U/L ALT (6-50) U/L Alkaline Phosphatase (38-126) U/L Troponin I (0.000-0.034) ng/mL NT-Pro-B Natriuret Pep (19.9-100) pg/mL Total Protein (6.3-8.2) g/dL Albumin (3.5-5.1) g/dL Urine Color Yellow (Yellow) Urine Appearance Clear (Clear) Urine pH 5.5 (5.0-9.0) Ur Specific [place] 1.015 (1.001-1.035) Urine Protein Negative (Negative) mg/dL Urine Glucose (UA) Negative (Negative) mg/dL Urine Ketones Negative (Negative) mg/dL Ur Blood (Man) Negative (Negative) Urine Nitrate Negative (Negative) Urine Bilirubin Negative (Negative) Urine Urobilinogen 1.0 (<2.0) mg/dL Leukocyte Esterase Rfl Trace H (Negative) NICKY/UL Urine RBC 0-2 (0-2) /hpf Urine WBC 0-5 (0-3) /hpf Ur Squamous Epith Cells None seen (Few) /hpf Urine Bacteria None seen /hpf Urine Casts 3-5 Nasal MRSA (PCR) (NOT DETECTE) Influenza A (RT-PCR) (Negative) Influenza B (RT-PCR) (Negative) RSV (RT-PCR) (Negative) SARS-CoV-2 RNA (RT-PCR) (Negative) ABG Data ABG results: 11/17/24 20:53 Puncture Site Right radial ABG pH 7.366 ABG pCO2 51.2 H ABG pO2 90.1 ABG PO2/FiO2 Ratio 1.80 ABG HCO3 28.7 H ABG O2 Saturation 96.5 ABG O2 Content 15.0 L ABG Base Excess 2.6 A-a Gradient 208.8 Oxyhemoglobin 96.2 Total Hemoglobin 11.0 L O2 Delivery Device Non-invasive vent O2 Liters/Min Not Reportable Vent Rate 18 FiO2 50 Critical Care Time Critical Care Time Critical Care Time: Yes Total Critical Care Time: 45 Discharge Plan Discharge Clinical Impression: Hypoxic respiratory failure Patient Disposition: Still a Patient Condition: Serious Patient Language: Turkmen Prescriptions: No Action ondansetron 8 mg Tablet,Disintegrating 8 mg PO Q8H PRN (Reason: Nausea) ropinirole 1 mg tablet 1 mg PO HS albuterol sulfate 90 mcg/actuation HFA aerosol inhaler 1 puff INHALATION Q4H PRN (Reason: Shortness Of Breath) acetaminophen 325 mg Tablet 650 mg PO Q6H PRN (Reason: Pain, Mild) ascorbic acid (vitamin C) 500 mg Tablet 500 mg PO BID bisacodyl [Dulcolax (bisacodyl)] 5 mg Tablet,Delayed Release (Dr/Ec) 10 mg PO BID lactulose 10 gram/15 mL Solution 20 g PO TID Adults Multivitamin 18 mg iron-400 mcg-25 mcg Tablet 1 tablet PO DAILY Pro-Stat Sugar Free 15 gram liquid 30 ml PO DAILY methadone 5 mg tablet 5 mg PO BID bisacodyl 10 mg Suppository 10 mg RECTAL DAILY PRN (Reason: Constipation) Qty: 12 0RF sucralfate [Carafate] 1 gram Tablet 1 g PO TID levothyroxine 25 mcg Tablet 25 mcg PO DAILY polyethylene glycol 3350 [Miralax] 17 gram powder in packet 17 g PO DAILY PRN (Reason: Constipation) Tigan 100 mg/mL solution 100 mg IM ONCE PRN (Reason: migraines) levalbuterol HCl 1.25 mg/3 mL solution for nebulization 1.25 mg inhalation Q6H PRN (Reason: SOB) pantoprazole 40 mg tablet,delayed release (DR/EC) 40 mg PO QAM Qty: 30 0RF nitrofurantoin monohyd/m-cryst [Macrobid] 100 mg capsule 100 mg PO Q12H 5 Days Qty: 10 0RF Rx Instructions: must administer with a meal/food bupropion HCl 300 mg tablet extended release 24 hr 150 mg PO DAILY olanzapine 5 mg Tablet 5 mg PO BID fluoxetine 20 mg Capsule 20 mg PO DAILY potassium chloride 20 mEq Tablet Extended Release 20 meq PO BID ipratropium bromide 0.02 % Solution 0.5 mg inhalation TID Qty: 75 0RF Symbicort 2 puff inhalation BID Qty: 1 0RF clopidogrel [Plavix] 75 mg Tablet 75 mg PO DAILY diphenhydramine HCl [Benadryl Allergy] 25 mg Tablet 25 mg PO TID PRN (Reason: allergies) mirtazapine [Remeron] 15 mg Tablet 15 mg PO HS trospium 20 mg Tablet 20 mg PO BID Rx Instructions: administer on an empty stomach Eliquis 5 mg Tablet 5 mg PO Q12HR Qty: 90 0RF Rx Instructions: start taking 5 mg twice a day on 10/16 bisacodyl [Laxative (bisacodyl)] 5 mg Tablet,Delayed Release (Dr/Ec) 5 mg PO QAM Qty: 30 0RF tamsulosin 0.4 mg capsule 0.4 mg PO HS gabapentin 100 mg capsule 100 mg PO TID Qty: 90 0RF Follow-up/Referrals: Jewel Aleman MD [Primary Care Provider] -
[2024-11-17] MEDS: metroNIDAZOLE 500 MG/ISO 100ML 500 MG/100 ML BAG 100 MG IVPB (22:01)
[2024-11-17 22:25] LABS: NT Pro B Type Natriuretic Pept 725 pg/mL (19.9-100); Troponin I < 0.012 ng/mL (0.000-0.034)
[2024-11-17 22:32] LABS: MRSA (PCR) DETECTED (NOT DETECTE)
--- NOTE | 2024-11-17 22:54 | ECG_ITS ---
Test Date: 2024-11-17 22:59:27 Measurements Intervals [place] Rate: 102 P: 76 MD: 186 QRS: 28 QRSD: 106 T: 87 QT: 342 QTc: 446 Interpretive Statements SINUS TACHYCARDIA WITH OCCASIONAL SUPRAVENTRICULAR PREMATURE COMPLEXES NONSPECIFIC ST & T-WAVE ABNORMALITY ABNORMAL RHYTHM ECG Compared to ECG 11/17/2024 19:33:39 Sinus rhythm no longer present T-wave abnormality still present Electronically Signed On 11-23-2024 10:11:15 HOSPITAL INSURANCE REPRESENTATIVE by Juan Miguel Garcia M.D.
[2024-11-17 23:07] LABS: Add Urine Microscopic? YES; Appearance Urine Clear (Clear); Bacteria Urine None Seen /hpf; Bilirubin Urine Negative (Negative); Blood Urine Negative (Negative); Color Urine Yellow (Yellow); Glucose Urine UA Negative (Negative); Ketones Urine Negative (Negative); Leukocyte Esterase Ur Trace LEU/UL (Negative); Nitrate Urine Negative (Negative); Protein Urine Negative (Negative); RBC Urine 0-2 /hpf (0-2); Specific Grav Ur 1.015 (1.001-1.035); Squamous Epithelial Cell Urine None Seen /hpf (Few); WBC Urine 0-5 /hpf (0-3); pH Urine 5.5 (5.0-9.0)
[2024-11-17 23:21] LABS: Troponin I < 0.012 ng/mL (0.000-0.034)
[2024-11-17] MEDS: VANCOMYCIN 2,000 MG/NS 500 ML 2,000 MG/500 ML BAG 250 MG IVPB (23:28)
[2024-11-18] VITALS (27 sets, daily range): BP systolic 93–110; BP diastolic 48–68; PULSE 71–97; RESP 16–36; TEMP 36.2–36.8; O2SAT 9–100; BMI 26.0
[2024-11-18] MEDS: CEFEPIME 2 GM/NS 50 ML 2 GM/50 ML BAG IVPB ×3 (06:08→22:40)
[2024-11-18] MEDS: ALBUMIN HUMAN 5% 250 ML IV CONT (06:39)
[2024-11-18 10:16] LABS: Estimated CRCL calculation 56 ml/min; Estimated Glomerular Filt Rate > 60
--- NOTE | 2024-11-18 12:16 | PM.IMHP ---
H&P: HPI History of Present Illness Date/Time: 11/18/24 12:16 Chief Complaint: sob Narrative: 78-year-old male with chronic respiratory failure, history significant for aortic valve stenosis, atrial fibrillation, BPH, CHF, COPD, CAD, depression, diabetes, hypothyroidism, and mixed hyperlipidemia presenting with difficulty breathing. Patient been doing well up until 3 hours prior to arrival to ed. He was found to be at 80% on his home 2 L of oxygen. Patient is denying fevers, chest pain abdominal pain nausea vomiting diarrhea. Reports shortness of breath. Patient is DNR DNI. Goals of care were discussed with patient's family and they are not ready for comfort measures despite his continuously declining health Patient placed on BiPAP. Patient has CHF/COPD and history of recurrent pneumonia- treated with Lasix, breathing treatments, duoneb, and antibiotics, cefepime, vanc, dose of flagyl was given in ed. Patient admitted to IMU. Of note- Pt was admitted and discharged from the hospital pretty much every month for the last few months. Pt is seen and examined. He is calm and resting with eyes closed.Unable to get much history from him. He is on bipap. no family at bedside Review of Systems Review of Systems: All systems reviewed & are unremarkable except as noted in HPI and below PMFSH Past Medical History Medical History Chronic anticoagulation Heart failure with preserved ejection fraction Type 2 diabetes mellitus Major depressive disorder, recurrent, unspecified Hypothyroidism Benign prostatic hyperplasia Obstructive sleep apnea Type 2 diabetes mellitus Chronic obstructive pulmonary disease Sacral decubitus ulcer Aortic valve stenosis Coronary artery disease (2019) Non-STEMI - left heart cath showed mild coronary artery disease with severe LV dysfunction EF 20% with possible underlying nonischemic cardiomyopathy, no PCI. Non-small cell carcinoma of lung Status post chemo radiation. Fibromyalgia Depression Arthritis (03/26/19) Restless legs syndrome Atrial fibrillation with controlled ventricular rate Mixed hyperlipidemia Surgical History Surgical History History of hernia repair Umbilical hernia repair. Bilateral inguinal hernia repairs. Family History Family History Sibling Patient's sister is in good health Hypertension Family history of heart disease in male family member before age 55 Mother Family history of heart disease in male family member before age 55 Patient's mother is Family history of congestive heart failure, Onset Age: 70 Father Patient's father is Acute myocardial infarction, Onset Age: 62 Grandparent Depression Family history of arthritis Family history of malignant neoplasm of breast Family history of heart disease in male family member before age 55 Other Cerebrovascular accident Family history of cardiovascular disease Social History Social History Social History: 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 Code status: Do not resuscitate. Smoking packs per day: 3 Smoking cigarettes per day: 60.0 Years smoked: 30 Smoking pack-years: 90.00 Smoking status: Never smoker Tobacco type: cigarettes Second hand tobacco smoke exposure: Yes Alcohol intake: never Substance use: never Substance use type: does not use Do You Feel Safe in your Home?: Yes Lack of Transportation: No Lack of Food: Never True Current Housing: I Have Housing Concerned About Future Housing: No Difficulty Paying Gas/Electric Bills: No Difficulty Paying for Meds: No Currently Unemployed: No Education: High School Diploma/GED Difficulty w/ Childcare or Family Care: No Living arrangements: [facility] Additional living arrangements comments: [facility] [employer] Occupation/Education: retired Additional occupation/education comments: previously in [employer] Spiritual care concerns: No Meds Home Medications and Allergies Home Medications ?Medication ?Instructions ?Recorded ?Confirmed ?Type ropinirole 1 mg tablet 1 mg PO HS 12/18/19 11/10/24 History bupropion HCl 300 mg 24 hr tablet, 150 mg PO DAILY 03/09/21 11/10/24 History extended release tamsulosin 0.4 mg capsule 0.4 mg PO HS 02/26/22 11/10/24 History gabapentin 100 mg capsule 100 mg PO TID #90 caps 06/12/22 11/10/24 Rx albuterol sulfate 90 mcg/actuation 1 puff inhalation Q4H PRN 07/27/22 11/10/24 History aerosol inhaler Shortness Of Breath ondansetron 8 mg disintegrating 8 mg PO Q8H PRN Nausea 08/10/22 11/10/24 History tablet Pro-Stat Sugar Free 30 ml PO DAILY 03/23/23 11/10/24 History acetaminophen 325 mg tablet 650 mg PO Q6H PRN Pain, Mild 03/23/23 11/10/24 History ascorbic acid (vitamin C) 500 mg 500 mg PO BID 03/23/23 11/10/24 History tablet bisacodyl 5 mg tablet,delayed 10 mg PO BID 03/23/23 11/10/24 History release (Dulcolax (bisacodyl)) lactulose 10 gram/15 mL oral 20 g PO TID 03/23/23 11/10/24 History solution methadone 5 mg tablet 5 mg PO BID 03/23/23 11/10/24 History multivit with minerals-iron 18 1 tablet PO DAILY 03/23/23 11/10/24 History mg-folic ac 400 mcg-vit K 25 mcg tablet (Adults Multivitamin) bisacodyl 10 mg rectal suppository 10 mg RECTAL DAILY PRN 04/01/23 11/10/24 Rx Constipation #12 ea levalbuterol HCl 1.25 mg/3 mL 1.25 mg inhalation Q6H PRN SOB 07/23/23 11/10/24 History solution for nebulization levothyroxine 25 mcg tablet 25 mcg PO DAILY 07/23/23 11/10/24 History polyethylene glycol 3350 17 gram 17 g PO DAILY PRN Constipation 07/23/23 11/10/24 History oral powder packet (Miralax) sucralfate 1 gram tablet (Carafate) 1 g PO TID 07/23/23 11/10/24 History trimethobenzamide 100 mg/mL 100 mg IM ONCE PRN migraines 07/23/23 11/10/24 History intramuscular solution (Tigan) pantoprazole 40 mg tablet,delayed 40 mg PO QAM #30 tabs 08/12/23 11/10/24 Rx release fluoxetine 20 mg capsule 20 mg PO DAILY 06/28/24 11/10/24 History olanzapine 5 mg tablet 5 mg PO BID 06/28/24 11/10/24 History Symbicort 2 puff inhalation BID #1 applicator 07/04/24 11/10/24 Rx ipratropium bromide 0.02 % 0.5 mg (2.5 mL) inhalation TID #75 07/04/24 11/10/24 Rx solution for inhalation mL potassium chloride 20 mEq 20 meq PO BID 07/04/24 11/10/24 History tablet,extended release clopidogrel 75 mg tablet (Plavix) 75 mg PO DAILY 08/25/24 11/10/24 History diphenhydramine HCl 25 mg tablet 25 mg PO TID PRN allergies 08/25/24 11/10/24 History (Benadryl Allergy) mirtazapine 15 mg tablet (Remeron) 15 mg PO HS 08/25/24 11/10/24 History trospium 20 mg tablet 20 mg PO BID 08/25/24 11/10/24 History apixaban 5 mg tablet (Eliquis) 5 mg PO Q12HR #90 tabs 10/13/24 11/10/24 Rx bisacodyl 5 mg tablet,delayed 5 mg PO QAM #30 tabs 10/13/24 11/10/24 Rx release (Laxative (bisacodyl)) nitrofurantoin 100 mg PO Q12H 5 days #10 caps 11/13/24 Rx monohydrate/macrocrystals 100 mg capsule (Macrobid) Allergies Allergy/AdvReac Type Severity Reaction Status Date / Time Penicillins Allergy Unknown SHORTNESS Verified 11/10/24 20:13 OF BREATH Vital Signs Vital Signs - 24 hr 11/17/24 19:14 11/17/24 19:26 11/17/24 19:31 Temperature 98.7 F Pulse Rate 100 100 100 Respiratory Rate 18 20 Blood Pressure 108/86 Pulse Oximetry 100 98 Oxygen Delivery Non-Rebreather Mask Oxygen Flow Rate 15 Fraction of Inspired Oxygen 11/17/24 20:40 11/17/24 20:41 11/17/24 20:48 Temperature Pulse Rate 103 H 105 H Respiratory Rate 35 H 37 H Blood Pressure Pulse Oximetry 97 99 Oxygen Delivery BiPAP Non-Rebreather Mask Oxygen Flow Rate 15 Fraction of Inspired Oxygen 11/17/24 21:11 11/17/24 21:12 11/17/24 21:16 Temperature Pulse Rate 104 H 82 105 H Respiratory Rate 17 18 28 H Blood Pressure 96/67 L 96/67 L 101/81 Pulse Oximetry 100 Oxygen Delivery Oxygen Flow Rate Fraction of Inspired Oxygen 11/17/24 21:31 11/17/24 22:34 11/17/24 23:02 Temperature Pulse Rate 107 H 106 H 102 H Respiratory Rate 23 H 28 H 21 H Blood Pressure 94/77 L 126/108 H 91/56 L Pulse Oximetry 99 100 Oxygen Delivery Oxygen Flow Rate Fraction of Inspired Oxygen 11/17/24 23:16 11/17/24 23:31 11/17/24 23:46 Temperature Pulse Rate 101 H 99 100 Respiratory Rate 20 20 24 H Blood Pressure 93/61 L 101/62 102/56 L Pulse Oximetry 99 99 Oxygen Delivery Oxygen Flow Rate Fraction of Inspired Oxygen 11/18/24 00:01 11/18/24 00:16 11/18/24 00:46 Temperature Pulse Rate 90 97 95 Respiratory Rate 22 H 22 H 21 H Blood Pressure 97/56 L 101/61 109/64 Pulse Oximetry 98 100 Oxygen Delivery Oxygen Flow Rate Fraction of Inspired Oxygen 11/18/24 01:30 11/18/24 01:46 11/18/24 02:01 Temperature Pulse Rate 89 88 86 Respiratory Rate 21 H 19 21 H Blood Pressure 94/55 L 94/57 L 101/62 Pulse Oximetry Oxygen Delivery Oxygen Flow Rate Fraction of Inspired Oxygen 11/18/24 02:16 11/18/24 02:46 11/18/24 03:00 Temperature Pulse Rate 86 91 83 Respiratory Rate 19 21 H 22 H Blood Pressure 100/62 110/68 Pulse Oximetry 99 94 Oxygen Delivery BiPAP Oxygen Flow Rate Fraction of Inspired Oxygen 11/18/24 06:01 11/18/24 07:00 11/18/24 07:38 Temperature Pulse Rate 78 80 Respiratory Rate 18 16 Blood Pressure 96/53 L 99/61 L Pulse Oximetry 100 Oxygen Delivery BiPAP Oxygen Flow Rate Fraction of Inspired Oxygen 11/18/24 07:54 11/18/24 10:09 11/18/24 10:27 Temperature 97.2 F L Pulse Rate Respiratory Rate 20 Blood Pressure Pulse Oximetry 100 100 96 Oxygen Delivery BiPAP BiPAP Oxygen Flow Rate Fraction of Inspired Oxygen 30 11/18/24 12:05 Temperature Pulse Rate 75 Respiratory Rate 18 Blood Pressure Pulse Oximetry 98 Oxygen Delivery BiPAP Oxygen Flow Rate Fraction of Inspired Oxygen Exam Const: General: comfortable; No no acute distress Resp: Other: on bipap-tolerating it well Cardio: Rate: regular rate GI: GI Palp: Yes Soft to palpation Auscultation: normal bowel sounds Psych: Affect: normal affect H&P: Results Labs Labs: Short CBC 11/17/24 Range/Units 19:32 WBC 11.1 H (4.5-10.0) K/mm3 Hgb 10.9 L (14.0-18.0) g/dL Hct 35.7 L (42.0-52.0) % Plt Count 189 (150-375) k/mm3 BMP 11/17/24 11/18/24 19:32 09:00 Sodium 137 Potassium 4.2 Chloride 103 Carbon Dioxide 37 H BUN 22 H D Creatinine 0.80 0.90 Glucose 129 H Calcium 8.8 Cardiac Enzymes 11/17/24 11/17/24 Range/Units 19:29 22:50 Troponin I < 0.012 < 0.012 (0.000-0.034) ng/mL Liver Function 11/17/24 Range/Units 19:32 Total Bilirubin 0.6 (0.2-1.3) mg/dL AST 23 (17-59) U/L ALT 9 (6-50) U/L Alkaline Phosphatase 93 (38-126) U/L Albumin 2.7 L (3.5-5.1) g/dL Urine 11/17/24 Range/Units 22:53 Urine Color Yellow (Yellow) Urine Appearance Clear (Clear) Urine pH 5.5 (5.0-9.0) Ur Specific [place] 1.015 (1.001-1.035) Urine Protein Negative (Negative) mg/dL Urine Glucose (UA) Negative (Negative) mg/dL Assessment and Plan Assessment and plan (1) Heart failure with preserved ejection fraction: Code(s): I50.30 - Unspecified diastolic (congestive) heart failure Status: Acute (2) Atrial fibrillation with controlled ventricular rate: Code(s): I48.91 - Unspecified atrial fibrillation Status: Chronic Assessment and Plan: holding eliqis for now as on BIpap hg stable 10.9 (3) Dyslipidemia: Code(s): E78.5 - Hyperlipidemia, unspecified Status: Acute (4) Diabetes mellitus with hyperglycemia: Qualifiers: Diabetes mellitus snf insulin use: unspecified snf insulin use status Diabetes mellitus type: due to underlying condition Qualified Code(s): E08.65 - Diabetes mellitus due to underlying condition with hyperglycemia Code(s): E11.65 - Type 2 diabetes mellitus with hyperglycemia Status: Acute Assessment and Plan: accuchecks q6h, corrective ss hypoglycemia protocol on bipap currently-will re eval tomorrow if able to eat (5) Non-small cell carcinoma of lung: Code(s): C34.90 - Malignant neoplasm of unspecified part of unspecified bronchus or lung Status: Acute Assessment and Plan: Per pulmonology note 07/02/24: Patient was diagnosed with 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 status post radiation therapy on 06/29/2022, s/p Carboplatin-Taxol 1 of 4 cycles on 08/10/2022 and then discontinued for skin wounds and fatigue and deemed not an candidate for further chemotherapy (6) COPD (chronic obstructive pulmonary disease): Code(s): J44.9 - Chronic obstructive pulmonary disease, unspecified Status: Acute (7) Acute hypoxic on chronic hypercapnic respiratory failure: Code(s): J96.01 - Acute respiratory failure with hypoxia; J96.12 - Chronic respiratory failure with hypercapnia Status: Acute Assessment and Plan: 78-year-old male with chronic respiratory failure presenting with difficulty breathing. Patient been doing well up until 3 hours prior to arrival that. He was found to be at 80% on his home 2 L of oxygen. Patient placed on BiPAP. Patient has CHF/COPD and history of recurrent pneumonia. He will be treated with Lasix, breathing treatments, and antibiotics-cefepime 2 gm q8, vanc 1,500 mg q18h - on bipap-tolerating it well (8) Pressure ulcer: Code(s): L89.90 - Pressure ulcer of unspecified site, unspecified stage Status: Acute Assessment and Plan: POA from recent hospitalization documention: Seen by wound nurse and managed by nursing staff will add wound consult for re eval Plan home med list is not completed-will address once done Quality VTE Prophylaxis VTE prophylaxis: mechanical ordered
[2024-11-18] MEDS: VANCOMYCIN 1,500 MG/NS 500 ML 1,500 MG/500 ML BAG 250 MG IVPB (19:34)
--- NOTE | 2024-11-18 22:04 | ADMGEN ---
This patient, Farhan Armstrong, was admitted to IMU Room 212-01 on 11/18/23 at 1040. Patient/family oriented to hospital policies and general routines including ID bracelet, bed and alarms, visiting hours, pain management, procedures, bathroom and other care routines, personal items, smoking policy, room service/diet, and visiting hours. Information on how to activate the Rapid Response Team has been discussed. Patient/Family are encouraged to report perceived risks to care and to ask questions if they do not understand what they are told or what they should do.
[2024-11-18] MEDS: APIXABAN 5 MG TABLET PO (22:38)
[2024-11-18] MEDS: ASCORBIC ACID 500 MG TABLET PO (22:39)
[2024-11-18] MEDS: MIRTAZAPINE 15 MG TABLET PO (22:39)
[2024-11-18] MEDS: methADONE HCL (*CRX) 5 MG TABLET PO (22:39)
[2024-11-18] MEDS: GABAPENTIN 100 MG CAPSULE PO (22:39)
[2024-11-18] MEDS: OLANZapine 5 MG TABLET PO (22:39)
[2024-11-18] MEDS: LACTULOSE 20 GM/30 ML UDC PO (22:39)
[2024-11-19] VITALS (25 sets, daily range): BP systolic 97–133; BP diastolic 47–78; PULSE 67–100; RESP 16–24; TEMP 36.4–37.1; O2SAT 95–100; BMI 25.6
[2024-11-19 00:29] LABS: Glucose Point of Care 72 mg/dl (65-105)
[2024-11-19 00:36] LABS: Glucose Point of Care 101 mg/dl (65-105)
[2024-11-19 06:05] LABS: Basophils Percent Auto 0.3 % (0.2-1.2); Eosinophils Absolute Auto 0.8 K/mm3 (0-0.3); Eosinophils Percent Auto 11.5 % (0-4.4); Hematocrit 25.4 % (42.0-52.0); Hemoglobin 7.7 g/dL (14.0-18.0); Immature Granulocyte Absolute 0.04 K/mm3 (0.00-0.031); Immature Granulocyte Percent A 0.5 % (0-0.5); Lymphocytes Absolute Auto 0.73 K/mm3 (0.9-3.2); Mean Corpuscular HGB Conc 30.3 g/dl (32-36); Mean Corpuscular Hemoglobin 29.7 pg (26-34); Mean Corpuscular Volume 98.1 fl (80-100); Mean Platelet Volume 9.5 fl (7.4-10.4); Monocytes Absolute Auto 0.7 K/mm3 (0.1-0.6); Monocytes Percent Auto 10.1 % (2.6-8.5); Neutrophils Absolute Auto 4.9 K/mm3 (1.3-6.7); Neutrophils Percent Auto 67.6 % (45.5-73.1); Platelet Count Result 160 k/mm3 (150-375); Red Blood Count 2.59 M/mm3 (4.6-6.20); Red Cell Distribution Width 15.8 % (11.5-14.5); White Blood Count 7.3 K/mm3 (4.5-10.0)
[2024-11-19 06:13] LABS: Alanine Aminotransferase 6 U/L (6-50); Albumin Level 2.1 g/dL (3.5-5.1); Alkaline Phosphatase 64 U/L (38-126); Anion Gap -5 mmol/L (4-12); Aspartate Amino Transferase 16 U/L (17-59); Bilirubin,Total 0.4 mg/dL (0.2-1.3); Blood Urea Nitrogen 19 mg/dL (9-20); Calcium 8.1 mg/dL (8.4-10.2); Carbon Dioxide 37 mmol/L (22-30); Chloride 105 mmol/L (98-107); Estimated CRCL calculation 63 ml/min; Estimated Glomerular Filt Rate > 60; Glucose 69 mg/dL (65-110); Magnesium 1.7 mg/dL (1.6-2.3); Potassium 3.4 mmol/L (3.4-5.0); Sodium 137 mmol/L (137-145)
[2024-11-19] MEDS: CEFEPIME 2 GM/NS 50 ML 2 GM/50 ML BAG IVPB ×3 (06:39→21:27)
[2024-11-19] MEDS: LEVOTHYROXINE SODIUM 25 MCG TABLET PO (06:39)
[2024-11-19] MEDS: IPRATROPIUM 0.5 MG/ALBUTEROL SULFATE 2.5 MG AMPUL.NEB 3 ML INHALATION ×2 (08:50→20:12)
[2024-11-19] MEDS: APIXABAN 5 MG TABLET PO ×2 (09:05→21:26)
[2024-11-19] MEDS: BISACODYL 5 MG TABLET EC 10 MG PO ×2 (09:05→17:37)
[2024-11-19] MEDS: MULTIVITAMINS /C LUTEIN (CENTRUM SILVER) TABLET *BKC 1 TAB PO (09:05)
[2024-11-19] MEDS: SUCRALFATE 1 GM TABLET PO ×3 (09:05→17:38)
[2024-11-19] MEDS: CLOPIDOGREL BISULFATE 75 MG TABLET PO (09:05)
[2024-11-19] MEDS: ASCORBIC ACID 500 MG TABLET PO ×2 (09:05→17:38)
[2024-11-19] MEDS: GABAPENTIN 100 MG CAPSULE PO ×3 (09:05→17:38)
[2024-11-19] MEDS: methADONE HCL (*CRX) 5 MG TABLET PO ×2 (09:05→21:26)
[2024-11-19] MEDS: buPROPion HCL XL (24 HR) 150 MG TABCR PO (09:05)
[2024-11-19] MEDS: OLANZapine 5 MG TABLET PO ×2 (09:06→21:26)
[2024-11-19 10:43] LABS: Vancomycin Trough 15.7 ug/mL (10.0-20.0)
[2024-11-19 12:03] LABS: Hematocrit 28.5 % (42.0-52.0); Hemoglobin 8.6 g/dL (14.0-18.0)
[2024-11-19] MEDS: MAGNESIUM SULF 2 GM/WATER 50ML 2 GM/50 ML BAG IVPB (12:22)
[2024-11-19] MEDS: POTASSIUM CHLORIDE 20 MEQ PACKET (FOR LIQUID) 40 MEQ PO (12:31)
[2024-11-19] MEDS: VANCOMYCIN 1,500 MG/NS 500 ML 1,500 MG/500 ML BAG 250 MG IVPB (12:36)
--- NOTE | 2024-11-19 14:02 | P.PNIM_ITS ---
Progress Note: A&P Assessment and Plan (1) Acute hypoxic on chronic hypercapnic respiratory failure: Code(s): J96.01 - Acute respiratory failure with hypoxia; J96.12 - Chronic respiratory failure with hypercapnia Status: Acute Assessment and Plan: Patient presents with SOB and found to have acute on chronic respiratory failure. He was 80% on his home 2 L of oxygen. CXR showing mild interstital edema. CT chest showing persistent consolidation in the RUL from atelectasis but can not exclude underlying PNA or malignancy; worsening lung disease in the LLL and posterior lingula suspicious for PNA; increasing small left pleural effusion. Patient placed on BiPAP. Patient has CHF/COPD/lung CA and history of recurrent pneumonia. He was treated with Lasix, breathing treatments, and antibiotics. Cefepime and Vancomycin started UA was clear. MRSA nasal swab positive. BCx pending. Able to wean off bipap and back down to 2L. Continue abx and bronchodilators. Hold on steroids. (2) Heart failure with preserved ejection fraction: Code(s): I50.30 - Unspecified diastolic (congestive) heart failure Status: Acute Assessment and Plan: As above. He was treated with one dose of IV Lasix but not continued Imaging as above. BNP 725. Echo in March 2023 showing EF 55-60% with grade I diastolic dysfunction. [place] not in acute CHF exacerbation since doubt he would improve that quickly. Monitor fluid status, UOP and clinical exam (3) Atrial fibrillation with controlled ventricular rate: Code(s): I48.91 - Unspecified atrial fibrillation Status: Chronic Assessment and Plan: EKG on admission showing sinus. Maintaining sinus rhythm Contnue Elipradip. Not on rate controlling agents. Monitor on tele. 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 Patient is diet controlled. The patient's blood glucose was reviewed on 11/19 Glucose remains well controlled. Continue AccuCheks covering with sliding scale. Hypoglycemia protocol available as needed. 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 CT scan could be recurrent lung cancer. Patient is DNR (6) COPD (chronic obstructive pulmonary disease): Code(s): J44.9 - Chronic obstructive pulmonary disease, unspecified Status: Acute Assessment and Plan: No wheezing. Continue inhalers and bronchodilators. (7) Pressure ulcer: Code(s): L89.90 - Pressure ulcer of unspecified site, unspecified stage Status: Acute Assessment and Plan: Pressure ulcers were present on admission. Wound consult for re eval Plan DVT prophylaxis - [place] Code status - DNR Subjective Date/time seen: 11/19/24 14:02 Interval history: 78yo male with aortic stenosis, AFib, BPH, CHF, COPD and DM here for SOB. He wears 2L O2 chronically. No CP. SOB about unchanged. When asked he has a cough, he states 'yes and no' and does not elaborate. he is oriented but provides poor hx. He states that he can not walk but able to stand and pivot to a chair. Exam Narrative: AF 97.9 103/56 100 24 100% 2L Gen - NARD lying semirecumbent in bed Chest - CTA bilaterally, nml RR. Rt upper chest port-a-cath CV - RRR S1/S2. Tele showing NSR with PVCs Abd - Soft, NT/ND, Positive BS - [place] secured draining clear yellow urine Ext - No pedal edema Neuro - Alert and oriented x4. Psych - Nml mood and affect Skin - Warm and dry Objective Data Vital Signs Vital Signs: Vital Signs - 24 hr 11/18/24 16:00 11/18/24 16:00 11/18/24 16:00 Temperature 98.1 F Pulse Rate 79 75 Respiratory Rate 36 H Blood Pressure 100/48 L Pulse Oximetry 99 Oxygen Delivery BiPAP Oxygen Flow Rate 11/18/24 16:13 11/18/24 18:00 11/18/24 18:20 Temperature Pulse Rate 75 78 Respiratory Rate 21 H Blood Pressure Pulse Oximetry 98 100 Oxygen Delivery BiPAP Nasal Cannula Oxygen Flow Rate 6 11/18/24 18:39 11/18/24 20:00 11/18/24 20:36 Temperature Pulse Rate 88 Respiratory Rate Blood Pressure Pulse Oximetry 95 95 Oxygen Delivery Nasal Cannula Nasal Cannula Oxygen Flow Rate 2 2 11/18/24 21:35 11/18/24 22:00 11/19/24 00:00 Temperature 98.3 F Pulse Rate 79 78 78 Respiratory Rate 22 H Blood Pressure 93/49 L Pulse Oximetry 100 Oxygen Delivery Oxygen Flow Rate 11/19/24 00:15 11/19/24 02:00 11/19/24 03:53 Temperature 98.8 F 98.6 F Pulse Rate 89 73 76 Respiratory Rate 20 20 Blood Pressure 133/54 L 110/47 L Pulse Oximetry 97 100 Oxygen Delivery Oxygen Flow Rate 11/19/24 04:00 11/19/24 06:00 11/19/24 07:44 Temperature 97.6 F Pulse Rate 72 67 74 Respiratory Rate 20 Blood Pressure 101/50 L Pulse Oximetry 100 Oxygen Delivery Oxygen Flow Rate 11/19/24 11:45 Temperature 97.9 F Pulse Rate 100 Respiratory Rate 24 H Blood Pressure 103/56 L Pulse Oximetry 100 Oxygen Delivery Oxygen Flow Rate Intake/Output Intake/Output: Intake & Output 11/16/24 11/17/24 11/18/24 11/19/24 23:59 23:59 23:59 23:59 Intake Total 150 2030 120 Output Total 1150 Balance 150 880 120 Meds/Results Medications: Active Medications Generic Name Dose Route Start Last Admin Trade Name Maicoq PRN Reason Stop Dose Admin Acetaminophen 650 mg 11/18/24 21:02 Acetaminophen 325 Mg Tablet PO Q6H PRN Pain, Mild Albuterol/Ipratropium 3 ml 11/18/24 21:45 11/19/24 08:50 Ipratropium 0.5 Mg/Albuterol Sulfate 2.5 Mg Ampul.Neb 3 Ml INHALATION 3 ml TIDRT JILLIAN Administration Apixaban 5 mg 11/18/24 21:05 11/19/24 09:05 Apixaban 5 Mg Tablet PO 5 mg Q12HR JILLIAN Administration Ascorbic Acid 500 mg 11/18/24 21:35 11/19/24 09:05 Ascorbic Acid 500 Mg Tablet PO 500 mg BID JILLIAN Administration Bisacodyl 10 mg 11/19/24 09:00 11/19/24 09:05 Bisacodyl 5 Mg Tablet Ec PO 10 mg BID JILLIAN Administration Bisacodyl 10 mg 11/18/24 21:02 Bisacodyl 10 Mg Suppository RECTAL DAILY PRN Constipation Bupropion HCl 150 mg 11/19/24 09:00 11/19/24 09:05 Bupropion Hcl Xl (24 Hr) 150 Mg Tabcr PO 150 mg DAILY JILLIAN Administration Clopidogrel Bisulfate 75 mg 11/19/24 09:00 11/19/24 09:05 Clopidogrel Bisulfate 75 Mg Tablet PO 75 mg DAILY JILLIAN Administration Dextrose 12.5 gm 11/18/24 15:23 Dextrose 50% 25 Gm/50 Ml Syringe IV PUSH PRN PRN Hypoglycemia Protocol Diphenhydramine HCl 25 mg 11/18/24 21:02 Diphenhydramine Hcl Cap 25 Mg Capsule PO TID PRN allergies Gabapentin 100 mg 11/18/24 21:05 11/19/24 12:26 Gabapentin 100 Mg Capsule PO 100 mg TID JILLIAN Administration Glucagon 1 mg 11/18/24 15:23 Glucagon For Inj 1 Mg Vial IM PRN PRN Hypoglycemia Protocol Glucose 15 gm 11/18/24 15:23 Glucose Oral Gel 15 Gm Of Glucse In 37.5 Gm Tube PO PRN PRN Hypoglycemia Protocol Cefepime HCl 2 gm in 50 mls @ 100 mls/hr 11/18/24 06:00 11/19/24 06:39 Maxipime 2 Gm/Ns 50 Ml IVPB 100 mls/hr Q8HR JILLIAN Administration Vancomycin HCl 1,500 mg in 500 mls @ 250 mls/hr 11/18/24 17:00 11/19/24 12:36 Vancomycin 1,500 Mg/Ns 500 Ml IVPB 250 mls/hr Q18H JILLIAN Administration Dextrose 1,000 mls @ 100 mls/hr 11/18/24 15:23 Dextrose 5% 1,000 Ml IVPB PRN PRN Hypoglycemia Protocol Insulin Aspart 2 - 5 units 11/18/24 18:00 11/19/24 06:39 Insulin Aspart (*Bkc) 100 Units/Ml SUB-Q Not Given Q6HR JILLIAN Protocol Lactulose 20 gm 11/18/24 21:35 11/19/24 12:37 Lactulose 20 Gm/30 Ml Udc PO Not Given TID JILLIAN Levalbuterol HCl 1.25 mg 11/18/24 21:02 Levalbuterol Neb 1.25 Mg/3 Ml INHALATION Q6H PRN Shortness Of Breath Levothyroxine Sodium 25 mcg 11/19/24 06:30 11/19/24 06:39 Levothyroxine Sodium 25 Mcg Tablet PO 25 mcg DAILY@0630 JILLIAN Administration Methadone HCl 5 mg 11/18/24 21:05 11/19/24 09:05 Methadone Hcl (*Crx) 5 Mg Tablet PO 5 mg Q12HR JILLIAN Administration Mirtazapine 15 mg 11/18/24 21:05 11/18/24 22:39 Mirtazapine 15 Mg Tablet PO 15 mg HS JILLIAN Administration Multivitamins/Minerals 1 tab 11/19/24 09:00 11/19/24 09:05 Multivitamins /C Lutein (Centrum Silver) Tablet *Bkc PO 1 tab DAILY JILLIAN Administration Olanzapine 5 mg 11/18/24 21:05 11/19/24 09:06 Olanzapine 5 Mg Tablet PO 5 mg Q12HR JILLIAN Administration Ondansetron HCl 8 mg 11/18/24 21:36 Ondansetron Hcl Odt 4 Mg Tablet PO Q8H PRN Nausea Polyethylene Glycol 17 gm 11/18/24 21:02 Polyethylene Glycol 3350 17 Gm Powd.Pack PO DAILY PRN Constipation Sucralfate 1 gm 11/19/24 09:00 11/19/24 12:26 Sucralfate 1 Gm Tablet PO 1 gm TID JILLIAN Administration Radiology Results: ITS Impressions Chest X-Ray 11/17/24 19:53 IMPRESSION: Mild interstitial edema. Chest CT 11/18/24 09:14 IMPRESSION: 1. Persistent consolidation in the right upper lobe to a recent part to atelectasis but with lesser degree of volume loss expected for simple collapse and could not exclude underlying pneumonia or malignancy. 2. Worsening lung disease in the left lower lobe and posterior lingula suspicious for pneumonia. 3. Increasing small left pleural effusion. Labs Labs: Laboratory Results - last 24 hr 11/18/24 11/19/24 11/19/24 18:59 00:30 05:58 WBC 7.3 RBC 2.59 L Hgb 7.7 L D Hct 25.4 L MCV 98.1 MCH 29.7 MCHC 30.3 L RDW 15.8 H Plt Count 160 MPV 9.5 Immature Gran % (Auto) 0.5 Neut % (Auto) 67.6 Lymph % (Auto) 10.0 L [place] % (Auto) 10.1 H Eos % (Auto) 11.5 H Baso % (Auto) 0.3 Lymph # (Auto) 0.73 L [place] # (Auto) 0.7 H Eos # (Auto) 0.8 H Baso # (Auto) 0.0 Abs Immat Gran (auto) 0.04 H Absolute Neuts (auto) 4.9 Absolute Nucleated RBC 0.000 Nucleated RBC % 0.0 Sodium 137 Potassium 3.4 Chloride 105 Carbon Dioxide 37 H Anion Gap -5 L BUN 19 Creatinine 0.80 Estim Creat Clear Calc 63 Estimated GFR > 60 Glucose 69 POC Capillary Glucose 72 101 Calcium 8.1 L Magnesium 1.7 Total Bilirubin 0.4 AST 16 L ALT 6 Alkaline Phosphatase 64 Total Protein 5.0 L Albumin 2.1 L Vancomycin Trough 11/19/24 11/19/24 09:53 11:58 WBC RBC Hgb 8.6 L Hct 28.5 L MCV MCH MCHC RDW Plt Count MPV Immature Gran % (Auto) Neut % (Auto) Lymph % (Auto) [place] % (Auto) Eos % (Auto) Baso % (Auto) Lymph # (Auto) [place] # (Auto) Eos # (Auto) Baso # (Auto) Abs Immat Gran (auto) Absolute Neuts (auto) Absolute Nucleated RBC Nucleated RBC % Sodium Potassium Chloride Carbon Dioxide Anion Gap BUN Creatinine Estim Creat Clear Calc Estimated GFR Glucose POC Capillary Glucose Calcium Magnesium Total Bilirubin AST ALT Alkaline Phosphatase Total Protein Albumin Vancomycin Trough 15.7
[2024-11-19 17:59] LABS: Hematocrit 26.5 % (42.0-52.0); Hemoglobin 8.1 g/dL (14.0-18.0)
[2024-11-19 18:55] LABS: Glucose Point of Care 156 mg/dl (65-105)
[2024-11-19 20:10] LABS: Glucose Point of Care 91 mg/dl (65-105)
[2024-11-19] MEDS: MIRTAZAPINE 15 MG TABLET PO (21:26)
[2024-11-19] MEDS: ACETAMINOPHEN 325 MG TABLET 650 MG PO (21:26)
[2024-11-20] VITALS (26 sets, daily range): BP systolic 110–136; BP diastolic 49–68; PULSE 75–92; RESP 18–24; TEMP 36.6–36.8; O2SAT 94–100
[2024-11-20 01:12] LABS: Hematocrit 24.8 % (42.0-52.0); Hemoglobin 7.6 g/dL (14.0-18.0)
[2024-11-20 05:32] LABS: Basophils Percent Auto 0.4 % (0.2-1.2); Eosinophils Percent Auto 12.6 % (0-4.4); Hematocrit 25.8 % (42.0-52.0); Hemoglobin 7.8 g/dL (14.0-18.0); Immature Granulocyte Absolute 0.05 K/mm3 (0.00-0.031); Immature Granulocyte Percent A 0.6 % (0-0.5); Lymphocytes Absolute Auto 1.03 K/mm3 (0.9-3.2); Lymphocytes Percent Auto 12.9 % (18.3-44.2); Mean Corpuscular HGB Conc 30.2 g/dl (32-36); Mean Corpuscular Hemoglobin 28.9 pg (26-34); Mean Corpuscular Volume 95.6 fl (80-100); Mean Platelet Volume 9.7 fl (7.4-10.4); Monocytes Absolute Auto 0.7 K/mm3 (0.1-0.6); Monocytes Percent Auto 8.2 % (2.6-8.5); Neutrophils Absolute Auto 5.2 K/mm3 (1.3-6.7); Neutrophils Percent Auto 65.3 % (45.5-73.1); Platelet Count Result 173 k/mm3 (150-375); Red Cell Distribution Width 15.8 % (11.5-14.5)
[2024-11-20 05:43] LABS: Alanine Aminotransferase 6 U/L (6-50); Albumin Level 2.2 g/dL (3.5-5.1); Alkaline Phosphatase 67 U/L (38-126); Anion Gap -2 mmol/L (4-12); Aspartate Amino Transferase 10 U/L (17-59); Bilirubin,Total 0.3 mg/dL (0.2-1.3); Blood Urea Nitrogen 14 mg/dL (9-20); Calcium 8.1 mg/dL (8.4-10.2); Carbon Dioxide 34 mmol/L (22-30); Chloride 105 mmol/L (98-107); Estimated CRCL calculation 63 ml/min; Estimated Glomerular Filt Rate > 60; Glucose 79 mg/dL (65-110); Magnesium 1.9 mg/dL (1.6-2.3); Potassium 3.5 mmol/L (3.4-5.0); Sodium 137 mmol/L (137-145)
[2024-11-20] MEDS: LEVOTHYROXINE SODIUM 25 MCG TABLET PO (06:48)
[2024-11-20] MEDS: VANCOMYCIN 1,500 MG/NS 500 ML 1,500 MG/500 ML BAG 250 MG IVPB (06:49)
[2024-11-20] MEDS: CEFEPIME 2 GM/NS 50 ML 2 GM/50 ML BAG IVPB ×3 (06:49→22:30)
[2024-11-20] MEDS: IPRATROPIUM 0.5 MG/ALBUTEROL SULFATE 2.5 MG AMPUL.NEB 3 ML INHALATION ×3 (07:52→21:16)
[2024-11-20 08:14] LABS: Glucose Point of Care 86 mg/dl (65-105)
[2024-11-20] MEDS: APIXABAN 5 MG TABLET PO ×2 (08:36→22:30)
[2024-11-20] MEDS: OLANZapine 5 MG TABLET PO ×2 (08:36→22:30)
[2024-11-20] MEDS: MULTIVITAMINS /C LUTEIN (CENTRUM SILVER) TABLET *BKC 1 TAB PO (08:36)
[2024-11-20] MEDS: CLOPIDOGREL BISULFATE 75 MG TABLET PO (08:36)
[2024-11-20] MEDS: SUCRALFATE 1 GM TABLET PO ×3 (08:36→16:43)
[2024-11-20] MEDS: methADONE HCL (*CRX) 5 MG TABLET PO ×2 (08:36→22:29)
[2024-11-20] MEDS: buPROPion HCL XL (24 HR) 150 MG TABCR PO (08:36)
[2024-11-20] MEDS: BISACODYL 5 MG TABLET EC 10 MG PO ×2 (08:36→16:43)
[2024-11-20] MEDS: GABAPENTIN 100 MG CAPSULE PO ×3 (08:37→16:43)
[2024-11-20] MEDS: LACTULOSE 20 GM/30 ML UDC PO ×3 (08:37→16:43)
[2024-11-20] MEDS: ASCORBIC ACID 500 MG TABLET PO ×2 (08:37→16:43)
[2024-11-20 11:52] LABS: Glucose Point of Care 101 mg/dl (65-105)
--- NOTE | 2024-11-20 16:32 | P.PNIM_ITS ---
Progress Note: A&P Assessment and Plan (1) Acute hypoxic on chronic hypercapnic respiratory failure: Code(s): J96.01 - Acute respiratory failure with hypoxia; J96.12 - Chronic respiratory failure with hypercapnia Status: Acute Assessment and Plan: Patient presents with SOB and found to have acute on chronic respiratory failure. He was 80% on his home 2 L of oxygen. CXR showing mild interstital edema. CT chest showing persistent consolidation in the RUL from atelectasis but can not exclude underlying PNA or malignancy; worsening lung disease in the LLL and posterior lingula suspicious for PNA; increasing small left pleural effusion. Patient placed on BiPAP. Patient has CHF/COPD/lung CA and history of recurrent pneumonias. He was treated with Lasix, breathing treatments, and antibiotics. Cefepime and Vancomycin started UA was clear. MRSA nasal swab positive. BCx NGTD Able to wean off bipap and back down to 2L. Continue abx and bronchodilators. Hold on steroids. Add CPT. (2) Heart failure with preserved ejection fraction: Code(s): I50.30 - Unspecified diastolic (congestive) heart failure Status: Acute Assessment and Plan: As above. He was treated with one dose of IV Lasix but not continued Imaging as above. BNP 725. Echo in March 2023 showing EF 55-60% with grade I diastolic dysfunction. [place] not in acute CHF exacerbation since doubt he would improve that quickly. UOP 1150-> 550-> 1350mL so far today. Positive fluid balance. Monitor fluid status, UOP and clinical exam (3) Atrial fibrillation with controlled ventricular rate: Code(s): I48.91 - Unspecified atrial fibrillation Status: Chronic Assessment and Plan: Patient with pAFib. EKG on admission showing sinus. Maintaining sinus rhythm Continue Eliquis. Not on rate controlling agents. Monitor on tele. 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 Patient is diet controlled. The patient's blood glucose was reviewed on 11/20 Glucose remains well controlled. Continue AccuCheks covering with sliding scale. Hypoglycemia protocol available as needed. 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 CT scan could be recurrent lung cancer. Patient is DNR. Discussed options including hospice today (11/20) and all questions answered. (6) COPD (chronic obstructive pulmonary disease): Code(s): J44.9 - Chronic obstructive pulmonary disease, unspecified Status: Acute Assessment and Plan: No wheezing. Continue inhalers and bronchodilators. (7) Pressure ulcer: Code(s): L89.90 - Pressure ulcer of unspecified site, unspecified stage Status: Acute Assessment and Plan: Pressure ulcers were present on admission. Wound consult for re eval (8) Severe protein-calorie malnutrition: Code(s): E43 - Unspecified severe protein-calorie malnutrition Status: Acute Assessment and Plan: Patient with severe protein calorie malnutrition related to chronic loss of appetite and increased needs as evidenced by weight loss of 11% over the past 2 months, intakes less than 75% of needs for greater than 1 month and severe muscle wasting and fat loss. Dietary consult. Continue supplements. Plan DVT prophylaxis - Radhaquis Code status - DNR Subjective Date/time seen: 11/20/24 16:32 Interval history: 78yo male with aortic stenosis, AFib, BPH, CHF, COPD and DM here for SOB. Also with chronic resp failure and wears 2L O2 chronically. Feels worse today. Slept okay. No CP or abd pain. Cough is nonproductive. Family in the room and he was updated about hospital course. Exam Narrative: AF 98.0 115/59 84 18 94% 2L Gen - NARD lying semirecumbent in bed Chest - left base inspiratory rhonchi. Rt upper chest port-a-cath CV - RRR S1/S2. Tele showing NSR, sinus arrhythmias with PVCs Abd - Soft, NT/ND, Positive BS - [place] secured draining clear yellow urine Ext - No pedal edema Psych - sad mood. Skin - Warm and dry Objective Data Vital Signs Vital Signs: Vital Signs - 24 hr 11/19/24 16:40 11/19/24 18:00 11/19/24 20:00 Temperature 98.6 F Pulse Rate 78 81 81 Respiratory Rate 18 Blood Pressure 106/78 Pulse Oximetry 96 97 Oxygen Delivery High Flow Nasal Cannula Oxygen Flow Rate 2 11/19/24 20:13 11/19/24 20:15 11/19/24 20:27 Temperature Pulse Rate 78 77 Respiratory Rate 20 20 Blood Pressure Pulse Oximetry 96 Oxygen Delivery Nasal Cannula Oxygen Flow Rate 2 11/19/24 22:00 11/19/24 23:39 11/20/24 00:00 Temperature 98.8 F Pulse Rate 80 83 78 Respiratory Rate 16 Blood Pressure 130/58 L Pulse Oximetry 98 Oxygen Delivery Oxygen Flow Rate 11/20/24 02:00 11/20/24 03:50 11/20/24 04:00 Temperature 98.3 F Pulse Rate 85 75 78 Respiratory Rate 18 Blood Pressure 110/53 L Pulse Oximetry 99 Oxygen Delivery Oxygen Flow Rate 11/20/24 06:00 11/20/24 07:54 11/20/24 07:54 Temperature Pulse Rate 78 84 Respiratory Rate 20 Blood Pressure Pulse Oximetry 99 Oxygen Delivery Nasal Cannula Oxygen Flow Rate 2 11/20/24 07:58 11/20/24 08:00 11/20/24 08:00 Temperature 97.8 F Pulse Rate 79 80 Respiratory Rate 20 Blood Pressure 113/49 L Pulse Oximetry 100 100 Oxygen Delivery Nasal Cannula Oxygen Flow Rate 2 11/20/24 08:11 11/20/24 10:00 11/20/24 11:38 Temperature 98.1 F Pulse Rate 79 83 79 Respiratory Rate 20 20 Blood Pressure 126/68 Pulse Oximetry 97 Oxygen Delivery Oxygen Flow Rate 11/20/24 12:00 11/20/24 12:00 11/20/24 14:00 Temperature Pulse Rate 82 82 Respiratory Rate Blood Pressure Pulse Oximetry 97 Oxygen Delivery Nasal Cannula Oxygen Flow Rate 2 11/20/24 14:05 11/20/24 14:12 11/20/24 15:44 Temperature 98.0 F Pulse Rate 92 89 84 Respiratory Rate 20 20 18 Blood Pressure 115/59 L Pulse Oximetry 94 Oxygen Delivery Oxygen Flow Rate Intake/Output Intake/Output: Intake & Output 11/17/24 11/18/24 11/19/24 11/20/24 23:59 23:59 23:59 23:59 Intake Total 150 2030 1300 770 Output Total 0340 509 2392 Balance 150 880 750 -580 Meds/Results Medications: Active Medications Generic Name Dose Route Start Last Admin Trade Name Freq PRN Reason Stop Dose Admin Acetaminophen 650 mg 11/18/24 21:02 11/19/24 21:26 Acetaminophen 325 Mg Tablet PO 650 mg Q6H PRN Administration Pain, Mild Albuterol/Ipratropium 3 ml 11/18/24 21:45 11/20/24 14:03 Ipratropium 0.5 Mg/Albuterol Sulfate 2.5 Mg Ampul.Neb 3 Ml INHALATION 3 ml TIDRT JILLIAN Administration Apixaban 5 mg 11/18/24 21:05 11/20/24 08:36 Apixaban 5 Mg Tablet PO 5 mg Q12HR JILLIAN Administration Ascorbic Acid 500 mg 11/18/24 21:35 11/20/24 08:37 Ascorbic Acid 500 Mg Tablet PO 500 mg BID JILLIAN Administration Bisacodyl 10 mg 11/19/24 09:00 11/20/24 08:36 Bisacodyl 5 Mg Tablet Ec PO 10 mg BID JILLIAN Administration Bisacodyl 10 mg 11/18/24 21:02 Bisacodyl 10 Mg Suppository RECTAL DAILY PRN Constipation Bupropion HCl 150 mg 11/19/24 09:00 11/20/24 08:36 Bupropion Hcl Xl (24 Hr) 150 Mg Tabcr PO 150 mg DAILY JILLIAN Administration Clopidogrel Bisulfate 75 mg 11/19/24 09:00 11/20/24 08:36 Clopidogrel Bisulfate 75 Mg Tablet PO 75 mg DAILY JILLIAN Administration Dextrose 12.5 gm 11/18/24 15:23 Dextrose 50% 25 Gm/50 Ml Syringe IV PUSH PRN PRN Hypoglycemia Protocol Diphenhydramine HCl 25 mg 11/18/24 21:02 Diphenhydramine Hcl Cap 25 Mg Capsule PO TID PRN allergies Gabapentin 100 mg 11/18/24 21:05 11/20/24 13:47 Gabapentin 100 Mg Capsule PO 100 mg TID JILLIAN Administration Glucagon 1 mg 11/18/24 15:23 Glucagon For Inj 1 Mg Vial IM PRN PRN Hypoglycemia Protocol Glucose 15 gm 11/18/24 15:23 Glucose Oral Gel 15 Gm Of Glucse In 37.5 Gm Tube PO PRN PRN Hypoglycemia Protocol Cefepime HCl 2 gm in 50 mls @ 100 mls/hr 11/18/24 06:00 11/20/24 13:47 Maxipime 2 Gm/Ns 50 Ml IVPB 100 mls/hr Q8HR JILLIAN Administration Vancomycin HCl 1,500 mg in 500 mls @ 250 mls/hr 11/18/24 17:00 11/20/24 06:49 Vancomycin 1,500 Mg/Ns 500 Ml IVPB 250 mls/hr Q18H JILLIAN Administration Dextrose 1,000 mls @ 100 mls/hr 11/18/24 15:23 Dextrose 5% 1,000 Ml IVPB PRN PRN Hypoglycemia Protocol Insulin Aspart 2 - 5 units 11/18/24 18:00 11/20/24 11:59 Insulin Aspart (*Bkc) 100 Units/Ml SUB-Q Not Given Q6HR JILLIAN Protocol Lactulose 20 gm 11/18/24 21:35 11/20/24 13:47 Lactulose 20 Gm/30 Ml Udc PO 20 gm TID JILLIAN Administration Levalbuterol HCl 1.25 mg 11/18/24 21:02 Levalbuterol Neb 1.25 Mg/3 Ml INHALATION Q6H PRN Shortness Of Breath Levothyroxine Sodium 25 mcg 11/19/24 06:30 11/20/24 06:48 Levothyroxine Sodium 25 Mcg Tablet PO 25 mcg DAILY@0630 JILLIAN Administration Methadone HCl 5 mg 11/18/24 21:05 11/20/24 08:36 Methadone Hcl (*Crx) 5 Mg Tablet PO 5 mg Q12HR JILLIAN Administration Mirtazapine 15 mg 11/18/24 21:05 11/19/24 21:26 Mirtazapine 15 Mg Tablet PO 15 mg HS JILLIAN Administration Multivitamins/Minerals 1 tab 11/19/24 09:00 11/20/24 08:36 Multivitamins /C Lutein (Centrum Silver) Tablet *Bkc PO 1 tab DAILY JILLIAN Administration Olanzapine 5 mg 11/18/24 21:05 11/20/24 08:36 Olanzapine 5 Mg Tablet PO 5 mg Q12HR JILLIAN Administration Ondansetron HCl 8 mg 11/18/24 21:36 Ondansetron Hcl Odt 4 Mg Tablet PO Q8H PRN Nausea Polyethylene Glycol 17 gm 11/18/24 21:02 Polyethylene Glycol 3350 17 Gm Powd.Pack PO DAILY PRN Constipation Sucralfate 1 gm 11/19/24 09:00 11/20/24 13:47 Sucralfate 1 Gm Tablet PO 1 gm TID JILLIAN Administration Radiology Results: ITS Impressions Chest X-Ray 11/17/24 19:53 IMPRESSION: Mild interstitial edema. Chest CT 11/18/24 09:14 IMPRESSION: 1. Persistent consolidation in the right upper lobe to a recent part to atelectasis but with lesser degree of volume loss expected for simple collapse and could not exclude underlying pneumonia or malignancy. 2. Worsening lung disease in the left lower lobe and posterior lingula suspicious for pneumonia. 3. Increasing small left pleural effusion. Labs Labs: Laboratory Results - last 24 hr 11/19/24 11/19/24 11/19/24 16:32 17:53 19:55 WBC RBC Hgb 8.1 L Hct 26.5 L MCV MCH MCHC RDW Plt Count MPV Immature Gran % (Auto) Neut % (Auto) Lymph % (Auto) [place] % (Auto) Eos % (Auto) Baso % (Auto) Lymph # (Auto) [place] # (Auto) Eos # (Auto) Baso # (Auto) Abs Immat Gran (auto) Absolute Neuts (auto) Absolute Nucleated RBC Nucleated RBC % Sodium Potassium Chloride Carbon Dioxide Anion Gap BUN Creatinine Estim Creat Clear Calc Estimated GFR Glucose POC Capillary Glucose 156 H 91 Calcium Magnesium Total Bilirubin AST ALT Alkaline Phosphatase Total Protein Albumin 11/20/24 11/20/24 11/20/24 00:45 05:10 08:10 WBC 8.0 RBC 2.70 L Hgb 7.6 L 7.8 L Hct 24.8 L 25.8 L MCV 95.6 MCH 28.9 MCHC 30.2 L RDW 15.8 H Plt Count 173 MPV 9.7 Immature Gran % (Auto) 0.6 H Neut % (Auto) 65.3 Lymph % (Auto) 12.9 L [place] % (Auto) 8.2 Eos % (Auto) 12.6 H Baso % (Auto) 0.4 Lymph # (Auto) 1.03 [place] # (Auto) 0.7 H Eos # (Auto) 1.0 H Baso # (Auto) 0.0 Abs Immat Gran (auto) 0.05 H Absolute Neuts (auto) 5.2 Absolute Nucleated RBC 0.000 Nucleated RBC % 0.0 Sodium 137 Potassium 3.5 Chloride 105 Carbon Dioxide 34 H Anion Gap -2 L BUN 14 D Creatinine 0.80 Estim Creat Clear Calc 63 Estimated GFR > 60 Glucose 79 POC Capillary Glucose 86 Calcium 8.1 L Magnesium 1.9 Total Bilirubin 0.3 AST 10 L ALT 6 Alkaline Phosphatase 67 Total Protein 5.0 L Albumin 2.2 L 11/20/24 11:37 WBC RBC Hgb Hct MCV MCH MCHC RDW Plt Count MPV Immature Gran % (Auto) Neut % (Auto) Lymph % (Auto) [place] % (Auto) Eos % (Auto) Baso % (Auto) Lymph # (Auto) [place] # (Auto) Eos # (Auto) Baso # (Auto) Abs Immat Gran (auto) Absolute Neuts (auto) Absolute Nucleated RBC Nucleated RBC % Sodium Potassium Chloride Carbon Dioxide Anion Gap BUN Creatinine Estim Creat Clear Calc Estimated GFR Glucose POC Capillary Glucose 101 Calcium Magnesium Total Bilirubin AST ALT Alkaline Phosphatase Total Protein Albumin
[2024-11-20 17:25] LABS: Glucose Point of Care 135 mg/dl (65-105)
[2024-11-20 20:42] LABS: Glucose Point of Care 118 mg/dl (65-105)
[2024-11-20] MEDS: MIRTAZAPINE 15 MG TABLET PO (22:30)
--- NOTE | 2024-11-20 23:38 | PC.NURSE ---
This patient, Farhan Armstrong, was transferred to [facility] on 11/20/24 at 2338. Personal belongings sent with patient. Report given to RN. Appropriate documentation sent with patient.
--- NOTE | 2024-11-20 23:46 | PC.NURSE ---
2340 RECIEVED PT VIA BED FROM IMU 212. PT APPEARS COMFORTABLE, BELONGINGS AT BEDSIDE
[2024-11-20 23:58] LABS: Glucose Point of Care 99 mg/dl (65-105)
[2024-11-21] VITALS (14 sets, daily range): BP systolic 100–123; BP diastolic 59–66; PULSE 76–88; RESP 20–24; TEMP 36–37.1; O2SAT 96–100
[2024-11-21] MEDS: VANCOMYCIN 1,500 MG/NS 500 ML 1,500 MG/500 ML BAG 250 MG IVPB ×2 (00:17→17:35)
[2024-11-21] MEDS: CEFEPIME 2 GM/NS 50 ML 2 GM/50 ML BAG IVPB ×3 (05:54→22:26)
[2024-11-21 06:06] LABS: Glucose Point of Care 62 mg/dl (65-105)
[2024-11-21] MEDS: DEXTROSE 50% 25 GM/50 ML SYRINGE IV PUSH ×2 (06:07→06:51)
[2024-11-21 06:20] LABS: Basophils Absolute Auto 0.1 K/mm3 (0.0-0.1); Basophils Percent Auto 0.7 % (0.2-1.2); Eosinophils Percent Auto 12.1 % (0-4.4); Hematocrit 27.9 % (42.0-52.0); Hemoglobin 8.5 g/dL (14.0-18.0); Immature Granulocyte Absolute 0.06 K/mm3 (0.00-0.031); Immature Granulocyte Percent A 0.7 % (0-0.5); Lymphocytes Absolute Auto 1.38 K/mm3 (0.9-3.2); Mean Corpuscular HGB Conc 30.5 g/dl (32-36); Mean Corpuscular Hemoglobin 29.6 pg (26-34); Mean Corpuscular Volume 97.2 fl (80-100); Mean Platelet Volume 9.9 fl (7.4-10.4); Monocytes Absolute Auto 0.7 K/mm3 (0.1-0.6); Monocytes Percent Auto 8.1 % (2.6-8.5); Neutrophils Percent Auto 61.4 % (45.5-73.1); Platelet Count Result 173 k/mm3 (150-375); Red Blood Count 2.87 M/mm3 (4.6-6.20); Red Cell Distribution Width 15.7 % (11.5-14.5); White Blood Count 8.1 K/mm3 (4.5-10.0)
[2024-11-21 06:25] LABS: Glucose Point of Care 80 mg/dl (65-105)
[2024-11-21 06:29] LABS: Alanine Aminotransferase 7 U/L (6-50); Albumin Level 2.4 g/dL (3.5-5.1); Alkaline Phosphatase 70 U/L (38-126); Anion Gap -3 mmol/L (4-12); Aspartate Amino Transferase 14 U/L (17-59); Bilirubin,Total 0.4 mg/dL (0.2-1.3); Blood Urea Nitrogen 17 mg/dL (9-20); Calcium 8.1 mg/dL (8.4-10.2); Carbon Dioxide 36 mmol/L (22-30); Chloride 104 mmol/L (98-107); Estimated CRCL calculation 71 ml/min; Estimated Glomerular Filt Rate > 60; Glucose 62 mg/dL (65-110); Magnesium 1.8 mg/dL (1.6-2.3); Potassium 3.6 mmol/L (3.4-5.0); Sodium 137 mmol/L (137-145)
[2024-11-21 06:49] LABS: Glucose Point of Care 77 mg/dl (65-105)
[2024-11-21 07:08] LABS: Glucose Point of Care 96 mg/dl (65-105)
[2024-11-21] MEDS: IPRATROPIUM 0.5 MG/ALBUTEROL SULFATE 2.5 MG AMPUL.NEB 3 ML INHALATION ×3 (07:45→21:50)
[2024-11-21 08:30] LABS: Glucose Point of Care 78 mg/dl (65-105)
[2024-11-21] MEDS: LACTULOSE 20 GM/30 ML UDC PO (08:33)
[2024-11-21] MEDS: CLOPIDOGREL BISULFATE 75 MG TABLET PO (08:33)
[2024-11-21] MEDS: OLANZapine 5 MG TABLET PO ×2 (08:33→20:26)
[2024-11-21] MEDS: GABAPENTIN 100 MG CAPSULE PO ×3 (08:33→17:35)
[2024-11-21] MEDS: APIXABAN 5 MG TABLET PO ×2 (08:33→20:27)
[2024-11-21] MEDS: ASCORBIC ACID 500 MG TABLET PO ×2 (08:33→17:35)
[2024-11-21] MEDS: SUCRALFATE 1 GM TABLET PO ×3 (08:33→17:35)
[2024-11-21] MEDS: buPROPion HCL XL (24 HR) 150 MG TABCR PO (08:33)
[2024-11-21] MEDS: BISACODYL 5 MG TABLET EC 10 MG PO ×2 (08:33→17:35)
[2024-11-21] MEDS: LEVOTHYROXINE SODIUM 25 MCG TABLET PO (08:33)
[2024-11-21] MEDS: MULTIVITAMINS /C LUTEIN (CENTRUM SILVER) TABLET *BKC 1 TAB PO (08:33)
[2024-11-21] MEDS: methADONE HCL (*CRX) 5 MG TABLET PO ×2 (08:34→20:26)
[2024-11-21] MEDS: diphenhydrAMINE HCl CAP 25 MG CAPSULE PO (10:02)
[2024-11-21] MEDS: ACETAMINOPHEN 325 MG TABLET 650 MG PO (14:59)
--- NOTE | 2024-11-21 15:15 | PM.IMPN ---
Progress Note: A&P Assessment and Plan (1) Acute hypoxic on chronic hypercapnic respiratory failure: Code(s): J96.01 - Acute respiratory failure with hypoxia; J96.12 - Chronic respiratory failure with hypercapnia Status: Acute Assessment and Plan: Patient presents with SOB and found to have acute on chronic respiratory failure. He was 80% on his home 2 L of oxygen. CXR showing mild interstital edema. CT chest showing persistent consolidation in the RUL from atelectasis but can not exclude underlying PNA or malignancy; worsening lung disease in the LLL and posterior lingula suspicious for PNA; increasing small left pleural effusion. Patient placed on BiPAP. Patient has CHF/COPD/lung CA and history of recurrent pneumonias. He was treated with Lasix, breathing treatments, and antibiotics. Cefepime and Vancomycin started UA was clear. MRSA nasal swab positive. BCx NGTD Able to wean off bipap and back down to 2L. Continue abx and bronchodilators. Continue CPT (2) Heart failure with preserved ejection fraction: Code(s): I50.30 - Unspecified diastolic (congestive) heart failure Status: Acute Assessment and Plan: As above. He was treated with one dose of IV Lasix but not continued Imaging as above. BNP 725. Echo in March 2023 showing EF 55-60% with grade I diastolic dysfunction. [place] not in acute CHF exacerbation since doubt he would improve that quickly. UOP good but with positive fluid balance. Monitor fluid status, UOP and clinical exam (3) Atrial fibrillation with controlled ventricular rate: Code(s): I48.91 - Unspecified atrial fibrillation Status: Chronic Assessment and Plan: Patient with pAFib. EKG on admission showing sinus mechanism. Continue Eliquis. Not on rate controlling agents. Monitor on tele. (4) Diabetes mellitus with hyperglycemia: Qualifiers: Diabetes mellitus prison insulin use: unspecified prison insulin use status Diabetes mellitus type: due to underlying condition Qualified Code(s): E08.65 - Diabetes mellitus due to underlying condition with hyperglycemia Code(s): E11.65 - Type 2 diabetes mellitus with hyperglycemia Status: Acute Assessment and Plan: A1c 4.5. Patient is diet controlled. The patient's blood glucose was reviewed on 11/21 Glucose remains well controlled. Continue AccuCheks covering with sliding scale. Hypoglycemia protocol available as needed. 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 CT scan could be recurrent lung cancer. Patient is DNR. (6) COPD (chronic obstructive pulmonary disease): Code(s): J44.9 - Chronic obstructive pulmonary disease, unspecified Status: Acute Assessment and Plan: No wheezing. Continue inhalers and bronchodilators. (7) Pressure ulcer: Code(s): L89.90 - Pressure ulcer of unspecified site, unspecified stage Status: Acute Assessment and Plan: Pressure ulcers were present on admission. Wound consult for re eval (8) Severe protein-calorie malnutrition: Code(s): E43 - Unspecified severe protein-calorie malnutrition Status: Acute Assessment and Plan: Patient with severe protein calorie malnutrition related to chronic loss of appetite and increased needs as evidenced by weight loss of 11% over the past 2 months, intakes less than 75% of needs for greater than 1 month and severe muscle wasting and fat loss. Dietary consult. Continue supplements. Plan DVT prophylaxis - Eliquis Code status - DNR Subjective Date/time seen: 11/21/24 15:15 Interval history: 78yo male with aortic stenosis, AFib, BPH, CHF, COPD and DM here for SOB. Also with chronic resp failure and wears 2L O2 chronically. Cough with thick whitish sputum. No CP. Up to the chair. Eating poorly. Son in the room who was updated. Exam Narrative: AF 97.7 100/60 86 20 100% 2L Gen - NARD sitting up in the chair Chest - left base inspiratory crackles. Rt upper chest port-a-cath CV - irregular Abd - Soft, NT/ND, Positive BS - [place] secured draining clear yellow urine Ext - trace pedal edema Psych - nml mood. Skin - Warm and dry Objective Data Vital Signs Vital Signs: Vital Signs - 24 hr 11/20/24 15:44 11/20/24 16:00 11/20/24 18:00 Temperature 98.0 F Pulse Rate 84 82 82 Respiratory Rate 18 Blood Pressure 115/59 L Pulse Oximetry 94 Oxygen Delivery Oxygen Flow Rate Fraction of Inspired Oxygen 11/20/24 19:55 11/20/24 20:00 11/20/24 20:00 Temperature 98.1 F Pulse Rate 85 77 Respiratory Rate 22 H Blood Pressure 136/60 Pulse Oximetry 96 96 Oxygen Delivery Nasal Cannula Oxygen Flow Rate 2 Fraction of Inspired Oxygen 11/20/24 21:21 11/20/24 21:22 11/20/24 21:32 Temperature Pulse Rate 82 85 Respiratory Rate 20 20 Blood Pressure Pulse Oximetry 97 Oxygen Delivery Nasal Cannula Oxygen Flow Rate 2 Fraction of Inspired Oxygen 11/20/24 22:00 11/20/24 23:35 11/20/24 23:49 Temperature 97.8 F Pulse Rate 91 83 83 Respiratory Rate 24 H 24 H Blood Pressure 113/55 L Pulse Oximetry 100 100 Oxygen Delivery BiPAP Oxygen Flow Rate Fraction of Inspired Oxygen 11/21/24 04:00 11/21/24 04:15 11/21/24 07:45 Temperature 96.8 F L Pulse Rate 78 78 Respiratory Rate 20 20 Blood Pressure 106/61 Pulse Oximetry 100 100 97 Oxygen Delivery BiPAP Nasal Cannula Oxygen Flow Rate 2 Fraction of Inspired Oxygen 28 11/21/24 07:45 11/21/24 07:54 11/21/24 08:00 Temperature 97.6 F Pulse Rate 76 78 77 Respiratory Rate 20 20 20 Blood Pressure 123/62 Pulse Oximetry 100 Oxygen Delivery Oxygen Flow Rate Fraction of Inspired Oxygen 11/21/24 09:30 11/21/24 09:42 11/21/24 12:00 Temperature 97.7 F Pulse Rate 88 Respiratory Rate 24 H Blood Pressure 100/60 Pulse Oximetry 100 Oxygen Delivery Nasal Cannula High Flow Nasal Cannula Oxygen Flow Rate 2 2 Fraction of Inspired Oxygen 11/21/24 14:06 11/21/24 14:14 Temperature Pulse Rate 88 86 Respiratory Rate 20 20 Blood Pressure Pulse Oximetry Oxygen Delivery Oxygen Flow Rate Fraction of Inspired Oxygen Intake/Output Intake/Output: Intake & Output 11/18/24 11/19/24 11/20/24 11/21/24 23:59 23:59 23:59 23:59 Intake Total 2030 1300 2060 650 Output Total 6957 835 7103 550 Balance 880 750 60 100 Meds/Results Medications: Active Medications Generic Name Dose Route Start Last Admin Trade Name Freq PRN Reason Stop Dose Admin Acetaminophen 650 mg 11/18/24 21:02 11/21/24 14:59 Acetaminophen 325 Mg Tablet PO 650 mg Q6H PRN Administration Pain, Mild Albuterol/Ipratropium 3 ml 11/18/24 21:45 11/21/24 14:06 Ipratropium 0.5 Mg/Albuterol Sulfate 2.5 Mg Ampul.Neb 3 Ml INHALATION 3 ml TIDRT JILLIAN Administration Apixaban 5 mg 11/18/24 21:05 11/21/24 08:33 Apixaban 5 Mg Tablet PO 5 mg Q12HR JILLIAN Administration Ascorbic Acid 500 mg 11/18/24 21:35 11/21/24 08:33 Ascorbic Acid 500 Mg Tablet PO 500 mg BID JILLIAN Administration Bisacodyl 10 mg 11/19/24 09:00 11/21/24 08:33 Bisacodyl 5 Mg Tablet Ec PO 10 mg BID JILLIAN Administration Bisacodyl 10 mg 11/18/24 21:02 Bisacodyl 10 Mg Suppository RECTAL DAILY PRN Constipation Bupropion HCl 150 mg 11/19/24 09:00 11/21/24 08:33 Bupropion Hcl Xl (24 Hr) 150 Mg Tabcr PO 150 mg DAILY JILLIAN Administration Clopidogrel Bisulfate 75 mg 11/19/24 09:00 11/21/24 08:33 Clopidogrel Bisulfate 75 Mg Tablet PO 75 mg DAILY JILLIAN Administration Dextrose 12.5 gm 11/18/24 15:23 11/21/24 06:51 Dextrose 50% 25 Gm/50 Ml Syringe IV PUSH 12.5 gm PRN PRN Administration Hypoglycemia Protocol Diphenhydramine HCl 25 mg 11/18/24 21:02 11/21/24 10:02 Diphenhydramine Hcl Cap 25 Mg Capsule PO 25 mg TID PRN Administration allergies Gabapentin 100 mg 11/18/24 21:05 11/21/24 13:08 Gabapentin 100 Mg Capsule PO 100 mg TID JILLIAN Administration Glucagon 1 mg 11/18/24 15:23 Glucagon For Inj 1 Mg Vial IM PRN PRN Hypoglycemia Protocol Glucose 15 gm 11/18/24 15:23 Glucose Oral Gel 15 Gm Of Glucse In 37.5 Gm Tube PO PRN PRN Hypoglycemia Protocol Cefepime HCl 2 gm in 50 mls @ 100 mls/hr 11/18/24 06:00 11/21/24 13:04 Maxipime 2 Gm/Ns 50 Ml IVPB 100 mls/hr Q8HR JILLIAN Administration Vancomycin HCl 1,500 mg in 500 mls @ 250 mls/hr 11/18/24 17:00 11/21/24 02:17 Vancomycin 1,500 Mg/Ns 500 Ml IVPB Infused Q18H JILLIAN Infusion Dextrose 1,000 mls @ 100 mls/hr 11/18/24 15:23 Dextrose 5% 1,000 Ml IVPB PRN PRN Hypoglycemia Protocol Insulin Aspart 2 - 5 units 11/18/24 18:00 11/21/24 13:03 Insulin Aspart (*Bkc) 100 Units/Ml SUB-Q Not Given Q6HR JILLIAN Protocol Lactulose 20 gm 11/18/24 21:35 11/21/24 13:10 Lactulose 20 Gm/30 Ml Udc PO Not Given TID JILLIAN Levalbuterol HCl 1.25 mg 11/18/24 21:02 Levalbuterol Neb 1.25 Mg/3 Ml INHALATION Q6H PRN Shortness Of Breath Levothyroxine Sodium 25 mcg 11/19/24 06:30 11/21/24 08:33 Levothyroxine Sodium 25 Mcg Tablet PO 25 mcg DAILY@0630 JILLIAN Administration Methadone HCl 5 mg 11/18/24 21:05 11/21/24 08:34 Methadone Hcl (*Crx) 5 Mg Tablet PO 5 mg Q12HR JILLIAN Administration Mirtazapine 15 mg 11/18/24 21:05 11/20/24 22:30 Mirtazapine 15 Mg Tablet PO 15 mg HS JILLIAN Administration Multivitamins/Minerals 1 tab 11/19/24 09:00 11/21/24 08:33 Multivitamins /C Lutein (Centrum Silver) Tablet *Bkc PO 1 tab DAILY JILLIAN Administration Olanzapine 5 mg 11/18/24 21:05 11/21/24 08:33 Olanzapine 5 Mg Tablet PO 5 mg Q12HR JILLIAN Administration Ondansetron HCl 8 mg 11/18/24 21:36 Ondansetron Hcl Odt 4 Mg Tablet PO Q8H PRN Nausea Polyethylene Glycol 17 gm 11/18/24 21:02 Polyethylene Glycol 3350 17 Gm Powd.Pack PO DAILY PRN Constipation Sucralfate 1 gm 11/19/24 09:00 11/21/24 13:08 Sucralfate 1 Gm Tablet PO 1 gm TID JILLIAN Administration Radiology Results: ITS Impressions Chest X-Ray 11/17/24 19:53 IMPRESSION: Mild interstitial edema. Chest CT 11/18/24 09:14 IMPRESSION: 1. Persistent consolidation in the right upper lobe to a recent part to atelectasis but with lesser degree of volume loss expected for simple collapse and could not exclude underlying pneumonia or malignancy. 2. Worsening lung disease in the left lower lobe and posterior lingula suspicious for pneumonia. 3. Increasing small left pleural effusion. Labs Labs: Laboratory Results - last 24 hr 11/20/24 11/20/24 11/20/24 17:22 19:58 23:54 WBC RBC Hgb Hct MCV MCH MCHC RDW Plt Count MPV Immature Gran % (Auto) Neut % (Auto) Lymph % (Auto) [place] % (Auto) Eos % (Auto) Baso % (Auto) Lymph # (Auto) [place] # (Auto) Eos # (Auto) Baso # (Auto) Abs Immat Gran (auto) Absolute Neuts (auto) Absolute Nucleated RBC Nucleated RBC % Sodium Potassium Chloride Carbon Dioxide Anion Gap BUN Creatinine Estim Creat Clear Calc Estimated GFR Glucose POC Capillary Glucose 135 H 118 H 99 Calcium Magnesium Total Bilirubin AST ALT Alkaline Phosphatase Total Protein Albumin 11/21/24 11/21/24 11/21/24 06:01 06:02 06:23 WBC 8.1 RBC 2.87 L Hgb 8.5 L Hct 27.9 L MCV 97.2 MCH 29.6 MCHC 30.5 L RDW 15.7 H Plt Count 173 MPV 9.9 Immature Gran % (Auto) 0.7 H Neut % (Auto) 61.4 Lymph % (Auto) 17.0 L [place] % (Auto) 8.1 Eos % (Auto) 12.1 H Baso % (Auto) 0.7 Lymph # (Auto) 1.38 [place] # (Auto) 0.7 H Eos # (Auto) 1.0 H Baso # (Auto) 0.1 Abs Immat Gran (auto) 0.06 H Absolute Neuts (auto) 5.0 Absolute Nucleated RBC 0.000 Nucleated RBC % 0.0 Sodium 137 Potassium 3.6 Chloride 104 Carbon Dioxide 36 H Anion Gap -3 L BUN 17 Creatinine 0.70 Estim Creat Clear Calc 71 Estimated GFR > 60 Glucose 62 L POC Capillary Glucose 62 L 80 Calcium 8.1 L Magnesium 1.8 Total Bilirubin 0.4 AST 14 L ALT 7 Alkaline Phosphatase 70 Total Protein 6.0 L Albumin 2.4 L 11/21/24 11/21/24 11/21/24 06:47 07:05 08:22 WBC RBC Hgb Hct MCV MCH MCHC RDW Plt Count MPV Immature Gran % (Auto) Neut % (Auto) Lymph % (Auto) [place] % (Auto) Eos % (Auto) Baso % (Auto) Lymph # (Auto) [place] # (Auto) Eos # (Auto) Baso # (Auto) Abs Immat Gran (auto) Absolute Neuts (auto) Absolute Nucleated RBC Nucleated RBC % Sodium Potassium Chloride Carbon Dioxide Anion Gap BUN Creatinine Estim Creat Clear Calc Estimated GFR Glucose POC Capillary Glucose 77 96 78 Calcium Magnesium Total Bilirubin AST ALT Alkaline Phosphatase Total Protein Albumin
[2024-11-21 16:53] LABS: Glucose Point of Care 99 mg/dl (65-105)
[2024-11-21 17:43] LABS: Glucose Point of Care 136 mg/dl (65-105)
[2024-11-21] MEDS: MIRTAZAPINE 15 MG TABLET PO (20:26)
[2024-11-22] VITALS (15 sets, daily range): BP systolic 96–121; BP diastolic 47–84; PULSE 70–90; RESP 12–27; TEMP 36.7–37.1; O2SAT 95–100
[2024-11-22 00:45] LABS: Glucose Point of Care 110 mg/dl (65-105)
[2024-11-22] MEDS: CEFEPIME 2 GM/NS 50 ML 2 GM/50 ML BAG IVPB ×3 (06:02→21:40)
[2024-11-22] MEDS: LEVOTHYROXINE SODIUM 25 MCG TABLET PO (06:03)
[2024-11-22] MEDS: GLUCOSE ORAL GEL 15 GM OF GLUCSE IN 37.5 GM TUBE PO (06:04)
[2024-11-22 06:30] LABS: Basophils Absolute Auto 0.1 K/mm3 (0.0-0.1); Basophils Percent Auto 0.5 % (0.2-1.2); Eosinophils Absolute Auto 1.2 K/mm3 (0-0.3); Hematocrit 25.8 % (42.0-52.0); Immature Granulocyte Absolute 0.07 K/mm3 (0.00-0.031); Immature Granulocyte Percent A 0.7 % (0-0.5); Lymphocytes Absolute Auto 1.69 K/mm3 (0.9-3.2); Lymphocytes Percent Auto 17.3 % (18.3-44.2); Mean Corpuscular Hemoglobin 29.3 pg (26-34); Mean Corpuscular Volume 94.5 fl (80-100); Mean Platelet Volume 9.9 fl (7.4-10.4); Monocytes Absolute Auto 0.7 K/mm3 (0.1-0.6); Neutrophils Absolute Auto 6.1 K/mm3 (1.3-6.7); Neutrophils Percent Auto 62.5 % (45.5-73.1); Platelet Count Result 168 k/mm3 (150-375); Red Blood Count 2.73 M/mm3 (4.6-6.20); Red Cell Distribution Width 15.7 % (11.5-14.5); White Blood Count 9.8 K/mm3 (4.5-10.0)
[2024-11-22 06:34] LABS: Glucose Point of Care 92 mg/dl (65-105)
[2024-11-22 06:46] LABS: Glucose Point of Care 62 mg/dl (65-105)
[2024-11-22] MEDS: diphenhydrAMINE HCl CAP 25 MG CAPSULE PO (06:48)
[2024-11-22 06:54] LABS: Alanine Aminotransferase 7 U/L (6-50); Albumin Level 2.2 g/dL (3.5-5.1); Alkaline Phosphatase 74 U/L (38-126); Anion Gap -2 mmol/L (4-12); Aspartate Amino Transferase 13 U/L (17-59); Bilirubin,Total 0.3 mg/dL (0.2-1.3); Blood Urea Nitrogen 20 mg/dL (9-20); Calcium 8.4 mg/dL (8.4-10.2); Carbon Dioxide 35 mmol/L (22-30); Chloride 103 mmol/L (98-107); Estimated CRCL calculation 71 ml/min; Estimated Glomerular Filt Rate > 60; Glucose 51 mg/dL (65-110); Potassium 3.8 mmol/L (3.4-5.0); Sodium 136 mmol/L (137-145)
[2024-11-22 08:40] LABS: Glucose Point of Care 103 mg/dl (65-105)
[2024-11-22] MEDS: IPRATROPIUM 0.5 MG/ALBUTEROL SULFATE 2.5 MG AMPUL.NEB 3 ML INHALATION ×3 (08:45→22:43)
[2024-11-22 10:32] LABS: Vancomycin Trough 23.9 ug/mL (10.0-20.0)
[2024-11-22] MEDS: LACTULOSE 20 GM/30 ML UDC PO ×3 (10:32→16:01)
[2024-11-22] MEDS: MULTIVITAMINS /C LUTEIN (CENTRUM SILVER) TABLET *BKC 1 TAB PO (10:33)
[2024-11-22] MEDS: OLANZapine 5 MG TABLET PO ×2 (10:33→21:40)
[2024-11-22] MEDS: APIXABAN 5 MG TABLET PO ×2 (10:33→21:40)
[2024-11-22] MEDS: GABAPENTIN 100 MG CAPSULE PO ×3 (10:33→16:00)
[2024-11-22] MEDS: CLOPIDOGREL BISULFATE 75 MG TABLET PO (10:33)
[2024-11-22] MEDS: SUCRALFATE 1 GM TABLET PO ×3 (10:33→16:00)
[2024-11-22] MEDS: BISACODYL 5 MG TABLET EC 10 MG PO ×2 (10:34→16:00)
[2024-11-22] MEDS: methADONE HCL (*CRX) 5 MG TABLET PO ×2 (10:34→21:39)
[2024-11-22] MEDS: ASCORBIC ACID 500 MG TABLET PO ×2 (10:34→16:00)
[2024-11-22] MEDS: buPROPion HCL XL (24 HR) 150 MG TABCR PO (10:35)
[2024-11-22 13:01] LABS: Glucose Point of Care 99 mg/dl (65-105)
--- NOTE | 2024-11-22 14:11 | PM.IMPN ---
Progress Note: A&P Assessment and Plan (1) Acute hypoxic on chronic hypercapnic respiratory failure: Code(s): J96.01 - Acute respiratory failure with hypoxia; J96.12 - Chronic respiratory failure with hypercapnia Status: Acute Assessment and Plan: Patient presents with SOB and found to have acute on chronic respiratory failure. He was 80% on his home 2 L of oxygen. CXR showing mild interstital edema. CT chest showing persistent consolidation in the RUL from atelectasis but can not exclude underlying PNA or malignancy; worsening lung disease in the LLL and posterior lingula suspicious for PNA; increasing small left pleural effusion. Patient placed on BiPAP. Patient has CHF/COPD/lung CA and history of recurrent pneumonias. He was treated with Lasix, breathing treatments, and antibiotics. Cefepime and Vancomycin started UA was clear. MRSA nasal swab positive. BCx NGTD Able to wean off bipap and back down to 2L. Continue abx and bronchodilators. Continue CPT. Speech therapy (2) Heart failure with preserved ejection fraction: Code(s): I50.30 - Unspecified diastolic (congestive) heart failure Status: Acute Assessment and Plan: As above. He was treated with one dose of IV Lasix but not continued Imaging as above. BNP 725. Echo in March 2023 showing EF 55-60% with grade I diastolic dysfunction. [place] not in acute CHF exacerbation since doubt he would improve that quickly. UOP good but with positive fluid balance. Monitor fluid status, UOP and clinical exam (3) Atrial fibrillation with controlled ventricular rate: Code(s): I48.91 - Unspecified atrial fibrillation Status: Chronic Assessment and Plan: Patient with pAFib. EKG on admission showing sinus mechanism. Continue Eliquis. Not on rate controlling agents. Monitor (4) Diabetes mellitus with hyperglycemia: Qualifiers: Diabetes mellitus manager terminal insulin use: unspecified detention insulin use status Diabetes mellitus type: due to underlying condition Qualified Code(s): E08.65 - Diabetes mellitus due to underlying condition with hyperglycemia Code(s): E11.65 - Type 2 diabetes mellitus with hyperglycemia Status: Acute Assessment and Plan: A1c 4.5. Patient is diet controlled. The patient's blood glucose was reviewed on 11/22 Glucose low at times which requires treatment. Continue AccuCheks covering with sliding scale. Hypoglycemia protocol available as needed. 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 CT scan this admission could be recurrent lung cancer. Patient is DNR. (6) COPD (chronic obstructive pulmonary disease): Code(s): J44.9 - Chronic obstructive pulmonary disease, unspecified Status: Acute Assessment and Plan: No wheezing. Continue inhalers and bronchodilators. (7) Pressure ulcer: Code(s): L89.90 - Pressure ulcer of unspecified site, unspecified stage Status: Acute Assessment and Plan: Pressure ulcers were present on admission. Wound consult (8) Severe protein-calorie malnutrition: Code(s): E43 - Unspecified severe protein-calorie malnutrition Status: Acute Assessment and Plan: Patient with severe protein calorie malnutrition related to chronic loss of appetite and increased needs as evidenced by weight loss of 11% over the past 2 months, intakes less than 75% of needs for greater than 1 month and severe muscle wasting and fat loss. Dietary consult. Continue supplements. Plan DVT prophylaxis - Eliquis Code status - DNR Subjective Date/time seen: 11/22/24 14:11 Interval history: 78yo male with aortic stenosis, AFib, BPH, CHF, COPD and DM here for SOB. Also with chronic resp failure and wears 2L O2 chronically. Not feeling well. Feels short of breath. No chest pain. No cough. No arm pain. Does state that his buttock feels sore. He did wear the BiPAP for few hours. He has a sense of impending doom. Exam Narrative: AF 98.1 101/84 84 20 96% 2L Gen - NARD Chest -decreased breath sounds left base.. Rt upper chest port-a-cath CV -regular rate and rhythm. Abd - Soft, NT/ND, Positive BS - [place] secured draining clear yellow urine Ext - trace pedal edema Psych -depressed mood Skin - Warm and dry Objective Data Vital Signs Vital Signs: Vital Signs - 24 hr 11/21/24 14:14 11/21/24 16:00 11/21/24 20:00 Temperature 98.2 F 98.7 F Pulse Rate 86 85 86 Respiratory Rate 20 24 H 20 Blood Pressure 110/59 L 117/66 Pulse Oximetry 100 99 Oxygen Delivery Oxygen Flow Rate Fraction of Inspired Oxygen 11/21/24 20:00 11/21/24 21:51 11/21/24 21:54 Temperature Pulse Rate 81 81 Respiratory Rate 20 Blood Pressure Pulse Oximetry 99 96 Oxygen Delivery Nasal Cannula Nasal Cannula Oxygen Flow Rate 2 2 Fraction of Inspired Oxygen 28 11/21/24 21:56 11/21/24 22:10 11/22/24 00:00 Temperature 98.6 F Pulse Rate 83 83 83 Respiratory Rate 21 H 20 20 Blood Pressure 121/60 Pulse Oximetry 98 98 Oxygen Delivery BiPAP Oxygen Flow Rate Fraction of Inspired Oxygen 11/22/24 01:17 11/22/24 04:00 11/22/24 08:00 Temperature 98.2 F 98.1 F Pulse Rate 83 70 90 Respiratory Rate 23 H 20 16 Blood Pressure 111/54 L 101/84 Pulse Oximetry 98 100 97 Oxygen Delivery BiPAP Oxygen Flow Rate Fraction of Inspired Oxygen 11/22/24 08:45 11/22/24 08:45 11/22/24 08:57 Temperature Pulse Rate 87 84 Respiratory Rate 20 20 Blood Pressure Pulse Oximetry 96 Oxygen Delivery Nasal Cannula Oxygen Flow Rate 2 Fraction of Inspired Oxygen 11/22/24 10:32 Temperature Pulse Rate Respiratory Rate Blood Pressure Pulse Oximetry 96 Oxygen Delivery Nasal Cannula Oxygen Flow Rate 2 Fraction of Inspired Oxygen Intake/Output Intake/Output: Intake & Output 11/19/24 11/20/24 11/21/24 11/22/24 23:59 23:59 23:59 23:59 Intake Total 1300 2060 1300 390 Output Total 550 2000 550 1300 Balance 750 60 750 -910 Meds/Results Medications: Active Medications Generic Name Dose Route Start Last Admin Trade Name Freq PRN Reason Stop Dose Admin Acetaminophen 650 mg 11/18/24 21:02 11/21/24 14:59 Acetaminophen 325 Mg Tablet PO 650 mg Q6H PRN Administration Pain, Mild Albuterol/Ipratropium 3 ml 11/18/24 21:45 11/22/24 08:45 Ipratropium 0.5 Mg/Albuterol Sulfate 2.5 Mg Ampul.Neb 3 Ml INHALATION 3 ml TIDRT JILLIAN Administration Apixaban 5 mg 11/18/24 21:05 11/22/24 10:33 Apixaban 5 Mg Tablet PO 5 mg Q12HR JILLIAN Administration Ascorbic Acid 500 mg 11/18/24 21:35 11/22/24 10:34 Ascorbic Acid 500 Mg Tablet PO 500 mg BID JILLIAN Administration Bisacodyl 10 mg 11/19/24 09:00 11/22/24 10:34 Bisacodyl 5 Mg Tablet Ec PO 10 mg BID JILLIAN Administration Bisacodyl 10 mg 11/18/24 21:02 Bisacodyl 10 Mg Suppository RECTAL DAILY PRN Constipation Bupropion HCl 150 mg 11/19/24 09:00 11/22/24 10:35 Bupropion Hcl Xl (24 Hr) 150 Mg Tabcr PO 150 mg DAILY JILLIAN Administration Clopidogrel Bisulfate 75 mg 11/19/24 09:00 11/22/24 10:33 Clopidogrel Bisulfate 75 Mg Tablet PO 75 mg DAILY JILLIAN Administration Dextrose 12.5 gm 11/18/24 15:23 11/21/24 06:51 Dextrose 50% 25 Gm/50 Ml Syringe IV PUSH 12.5 gm PRN PRN Administration Hypoglycemia Protocol Diphenhydramine HCl 25 mg 11/18/24 21:02 11/22/24 06:48 Diphenhydramine Hcl Cap 25 Mg Capsule PO 25 mg TID PRN Administration allergies Gabapentin 100 mg 11/18/24 21:05 11/22/24 12:55 Gabapentin 100 Mg Capsule PO 100 mg TID JILLIAN Administration Glucagon 1 mg 11/18/24 15:23 Glucagon For Inj 1 Mg Vial IM PRN PRN Hypoglycemia Protocol Glucose 15 gm 11/18/24 15:23 11/22/24 06:04 Glucose Oral Gel 15 Gm Of Glucse In 37.5 Gm Tube PO 15 gm PRN PRN Administration Hypoglycemia Protocol Cefepime HCl 2 gm in 50 mls @ 100 mls/hr 11/18/24 06:00 11/22/24 13:08 Maxipime 2 Gm/Ns 50 Ml IVPB 100 mls/hr Q8HR JILLIAN Administration Dextrose 1,000 mls @ 100 mls/hr 11/18/24 15:23 Dextrose 5% 1,000 Ml IVPB PRN PRN Hypoglycemia Protocol Vancomycin HCl 1,500 mg in 500 mls @ 250 mls/hr 11/22/24 17:00 Vancomycin 1,500 Mg/Ns 500 Ml IVPB Q24H [facility] Insulin Aspart 2 - 5 units 11/18/24 18:00 11/22/24 06:03 Insulin Aspart (*Bkc) 100 Units/Ml SUB-Q Not Given Q6HR [facility] Protocol Lactulose 20 gm 11/18/24 21:35 11/22/24 12:55 Lactulose 20 Gm/30 Ml Udc PO 20 gm TID JILLIAN Administration Levalbuterol HCl 1.25 mg 11/18/24 21:02 Levalbuterol Neb 1.25 Mg/3 Ml INHALATION Q6H PRN Shortness Of Breath Levothyroxine Sodium 25 mcg 11/19/24 06:30 11/22/24 06:03 Levothyroxine Sodium 25 Mcg Tablet PO 25 mcg DAILY@0630 [facility] Administration Methadone HCl 5 mg 11/18/24 21:05 11/22/24 10:34 Methadone Hcl (*Crx) 5 Mg Tablet PO 5 mg Q12HR JILLIAN Administration Mirtazapine 15 mg 11/18/24 21:05 11/21/24 20:26 Mirtazapine 15 Mg Tablet PO 15 mg HS [facility] Administration Multivitamins/Minerals 1 tab 11/19/24 09:00 11/22/24 10:33 Multivitamins /C Lutein (Centrum Silver) Tablet *Bkc PO 1 tab DAILY JILLIAN Administration Olanzapine 5 mg 11/18/24 21:05 11/22/24 10:33 Olanzapine 5 Mg Tablet PO 5 mg Q12HR JILLIAN Administration Ondansetron HCl 8 mg 11/18/24 21:36 Ondansetron Hcl Odt 4 Mg Tablet PO Q8H PRN Nausea Polyethylene Glycol 17 gm 11/18/24 21:02 Polyethylene Glycol 3350 17 Gm Powd.Pack PO DAILY PRN Constipation Sucralfate 1 gm 11/19/24 09:00 11/22/24 12:55 Sucralfate 1 Gm Tablet PO 1 gm TID JILLIAN Administration Radiology Results: ITS Impressions Chest X-Ray 11/17/24 19:53 IMPRESSION: Mild interstitial edema. Chest CT 11/18/24 09:14 IMPRESSION: 1. Persistent consolidation in the right upper lobe to a recent part to atelectasis but with lesser degree of volume loss expected for simple collapse and could not exclude underlying pneumonia or malignancy. 2. Worsening lung disease in the left lower lobe and posterior lingula suspicious for pneumonia. 3. Increasing small left pleural effusion. Labs Labs: Laboratory Results - last 24 hr 11/21/24 11/21/24 11/22/24 12:35 17:36 00:39 WBC RBC Hgb Hct MCV MCH MCHC RDW Plt Count MPV Immature Gran % (Auto) Neut % (Auto) Lymph % (Auto) [place] % (Auto) Eos % (Auto) Baso % (Auto) Lymph # (Auto) [place] # (Auto) Eos # (Auto) Baso # (Auto) Abs Immat Gran (auto) Absolute Neuts (auto) Absolute Nucleated RBC Nucleated RBC % Sodium Potassium Chloride Carbon Dioxide Anion Gap BUN Creatinine Estim Creat Clear Calc Estimated GFR Glucose POC Capillary Glucose 99 136 H 110 H Calcium Magnesium Total Bilirubin AST ALT Alkaline Phosphatase Total Protein Albumin Vancomycin Trough 11/22/24 11/22/24 11/22/24 05:28 06:03 06:31 WBC 9.8 RBC 2.73 L Hgb 8.0 L Hct 25.8 L MCV 94.5 MCH 29.3 MCHC 31.0 L RDW 15.7 H Plt Count 168 MPV 9.9 Immature Gran % (Auto) 0.7 H Neut % (Auto) 62.5 Lymph % (Auto) 17.3 L [place] % (Auto) 7.0 Eos % (Auto) 12.0 H Baso % (Auto) 0.5 Lymph # (Auto) 1.69 [place] # (Auto) 0.7 H Eos # (Auto) 1.2 H Baso # (Auto) 0.1 Abs Immat Gran (auto) 0.07 H Absolute Neuts (auto) 6.1 Absolute Nucleated RBC 0.000 Nucleated RBC % 0.0 Sodium 136 L Potassium 3.8 Chloride 103 Carbon Dioxide 35 H Anion Gap -2 L BUN 20 Creatinine 0.70 Estim Creat Clear Calc 71 Estimated GFR > 60 Glucose 51 L* POC Capillary Glucose 62 L 92 Calcium 8.4 Magnesium 2.0 Total Bilirubin 0.3 AST 13 L ALT 7 Alkaline Phosphatase 74 Total Protein 5.0 L Albumin 2.2 L Vancomycin Trough 11/22/24 11/22/24 11/22/24 08:12 10:06 12:48 WBC RBC Hgb Hct MCV MCH MCHC RDW Plt Count MPV Immature Gran % (Auto) Neut % (Auto) Lymph % (Auto) [place] % (Auto) Eos % (Auto) Baso % (Auto) Lymph # (Auto) [place] # (Auto) Eos # (Auto) Baso # (Auto) Abs Immat Gran (auto) Absolute Neuts (auto) Absolute Nucleated RBC Nucleated RBC % Sodium Potassium Chloride Carbon Dioxide Anion Gap BUN Creatinine Estim Creat Clear Calc Estimated GFR Glucose POC Capillary Glucose 103 99 Calcium Magnesium Total Bilirubin AST ALT Alkaline Phosphatase Total Protein Albumin Vancomycin Trough 23.9 H
[2024-11-22] MEDS: VANCOMYCIN 1,500 MG/NS 500 ML 1,500 MG/500 ML BAG 250 MG IVPB (16:01)
[2024-11-22 17:22] LABS: Glucose Point of Care 104 mg/dl (65-105)
[2024-11-22] MEDS: MIRTAZAPINE 15 MG TABLET PO (21:40)
[2024-11-22 22:57] LABS: Glucose Point of Care 95 mg/dl (65-105)
[2024-11-23] VITALS (15 sets, daily range): BP systolic 110–159; BP diastolic 55–82; PULSE 70–111; RESP 16–31; TEMP 36.4–36.7; O2SAT 88–100
[2024-11-23 00:28] LABS: Glucose Point of Care 90 mg/dl (65-105)
[2024-11-23] MEDS: CEFEPIME 2 GM/NS 50 ML 2 GM/50 ML BAG IVPB ×3 (05:33→21:10)
[2024-11-23] MEDS: LEVOTHYROXINE SODIUM 25 MCG TABLET PO (05:35)
[2024-11-23 05:40] LABS: Basophils Absolute Auto 0.1 K/mm3 (0.0-0.1); Basophils Percent Auto 0.8 % (0.2-1.2); Eosinophils Absolute Auto 1.3 K/mm3 (0-0.3); Hemoglobin 7.9 g/dL (14.0-18.0); Immature Granulocyte Percent A 0.9 % (0-0.5); Lymphocytes Absolute Auto 1.76 K/mm3 (0.9-3.2); Lymphocytes Percent Auto 16.4 % (18.3-44.2); Mean Corpuscular HGB Conc 30.4 g/dl (32-36); Mean Corpuscular Hemoglobin 28.9 pg (26-34); Mean Corpuscular Volume 95.2 fl (80-100); Mean Platelet Volume 9.7 fl (7.4-10.4); Monocytes Percent Auto 9.5 % (2.6-8.5); Neutrophils Absolute Auto 6.5 K/mm3 (1.3-6.7); Neutrophils Percent Auto 60.4 % (45.5-73.1); Platelet Count Result 161 k/mm3 (150-375); Red Blood Count 2.73 M/mm3 (4.6-6.20); Red Cell Distribution Width 16.1 % (11.5-14.5); White Blood Count 10.7 K/mm3 (4.5-10.0)
[2024-11-23 05:43] LABS: Glucose Point of Care 70 mg/dl (65-105)
[2024-11-23 05:57] LABS: Alanine Aminotransferase 7 U/L (6-50); Albumin Level 2.1 g/dL (3.5-5.1); Alkaline Phosphatase 72 U/L (38-126); Aspartate Amino Transferase 12 U/L (17-59); Bilirubin,Total 0.4 mg/dL (0.2-1.3); Blood Urea Nitrogen 20 mg/dL (9-20); Calcium 8.4 mg/dL (8.4-10.2); Carbon Dioxide > 40 mmol/L (22-30); Chloride 101 mmol/L (98-107); Estimated CRCL calculation 63 ml/min; Estimated Glomerular Filt Rate > 60; Glucose 68 mg/dL (65-110); Potassium 4.2 mmol/L (3.4-5.0); Sodium 137 mmol/L (137-145)
[2024-11-23 06:38] LABS: Magnesium 1.9 mg/dL (1.6-2.3)
[2024-11-23 06:48] LABS: Glucose Point of Care 84 mg/dl (65-105)
[2024-11-23 08:14] LABS: Glucose Point of Care 72 mg/dl (65-105)
[2024-11-23] MEDS: IPRATROPIUM 0.5 MG/ALBUTEROL SULFATE 2.5 MG AMPUL.NEB 3 ML INHALATION ×3 (09:05→20:20)
[2024-11-23] MEDS: CLOPIDOGREL BISULFATE 75 MG TABLET PO (09:11)
[2024-11-23] MEDS: BISACODYL 5 MG TABLET EC 10 MG PO ×2 (09:11→16:22)
[2024-11-23] MEDS: APIXABAN 5 MG TABLET PO ×2 (09:11→21:14)
[2024-11-23] MEDS: buPROPion HCL XL (24 HR) 150 MG TABCR PO (09:11)
[2024-11-23] MEDS: ASCORBIC ACID 500 MG TABLET PO ×2 (09:11→16:22)
[2024-11-23] MEDS: LACTULOSE 20 GM/30 ML UDC PO ×3 (09:12→16:22)
[2024-11-23] MEDS: methADONE HCL (*CRX) 5 MG TABLET PO ×2 (09:12→21:14)
[2024-11-23] MEDS: GABAPENTIN 100 MG CAPSULE PO ×3 (09:12→16:22)
[2024-11-23] MEDS: MULTIVITAMINS /C LUTEIN (CENTRUM SILVER) TABLET *BKC 1 TAB PO (09:13)
[2024-11-23] MEDS: OLANZapine 5 MG TABLET PO ×2 (09:13→21:14)
[2024-11-23] MEDS: SUCRALFATE 1 GM TABLET PO ×3 (09:13→16:22)
[2024-11-23 12:49] LABS: Glucose Point of Care 91 mg/dl (65-105)
[2024-11-23] MEDS: VANCOMYCIN 1,500 MG/NS 500 ML 1,500 MG/500 ML BAG 250 MG IVPB (16:19)
[2024-11-23 17:06] LABS: Glucose Point of Care 97 mg/dl (65-105)
--- NOTE | 2024-11-23 20:02 | PM.IMPN ---
Progress Note: A&P Assessment and Plan (1) Acute hypoxic on chronic hypercapnic respiratory failure: Code(s): J96.01 - Acute respiratory failure with hypoxia; J96.12 - Chronic respiratory failure with hypercapnia Status: Acute Assessment and Plan: Patient presents with SOB and found to have acute on chronic respiratory failure. He was 80% on his home 2 L of oxygen. CXR showing mild interstital edema. CT chest showing persistent consolidation in the RUL from atelectasis but can not exclude underlying PNA or malignancy; worsening lung disease in the LLL and posterior lingula suspicious for PNA; increasing small left pleural effusion. Patient placed on BiPAP. Patient has CHF/COPD/lung CA and history of recurrent pneumonias. He was treated with Lasix, breathing treatments, and antibiotics. Cefepime and Vancomycin started UA was clear. MRSA nasal swab positive. BCx NGTD Able to wean off bipap and back down to 2L. Continue abx to complete a 7 day course; continue bronchodilators. Continue CPT. (2) Heart failure with preserved ejection fraction: Code(s): I50.30 - Unspecified diastolic (congestive) heart failure Status: Acute Assessment and Plan: As above. He was treated with one dose of IV Lasix but not continued Imaging as above. BNP 725. Echo in March 2023 showing EF 55-60% with grade I diastolic dysfunction. [place] not in acute CHF exacerbation Monitor fluid status, UOP and clinical exam (3) Atrial fibrillation with controlled ventricular rate: Code(s): I48.91 - Unspecified atrial fibrillation Status: Chronic Assessment and Plan: Patient with pAFib. EKG on admission showing sinus mechanism. Continue Eliquis. Not on rate controlling agents. Monitor (4) Diabetes mellitus with hyperglycemia: Qualifiers: Diabetes mellitus alf insulin use: unspecified long term care administrator insulin use status Diabetes mellitus type: due to underlying condition Qualified Code(s): E08.65 - Diabetes mellitus due to underlying condition with hyperglycemia Code(s): E11.65 - Type 2 diabetes mellitus with hyperglycemia Status: Acute Assessment and Plan: A1c 4.5. Patient is diet controlled. The patient's blood glucose was reviewed on 11/23 Glucose low at times which requires treatment. Continue AccuCheks covering with sliding scale. Hypoglycemia protocol available as needed. 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 CT scan this admission could be recurrent lung cancer. Patient is DNR. (6) COPD (chronic obstructive pulmonary disease): Code(s): J44.9 - Chronic obstructive pulmonary disease, unspecified Status: Acute Assessment and Plan: No wheezing. Continue inhalers and bronchodilators. (7) Pressure ulcer: Code(s): L89.90 - Pressure ulcer of unspecified site, unspecified stage Status: Acute Assessment and Plan: Pressure ulcers were present on admission. Wound consult (8) Severe protein-calorie malnutrition: Code(s): E43 - Unspecified severe protein-calorie malnutrition Status: Acute Assessment and Plan: Patient with severe protein calorie malnutrition related to chronic loss of appetite and increased needs as evidenced by weight loss of 11% over the past 2 months, intakes less than 75% of needs for greater than 1 month and severe muscle wasting and fat loss. Dietary consult. Continue supplements. Plan DVT prophylaxis - [place] Code status - DNR Subjective Date/time seen: 11/23/24 20:02 Interval history: 78yo male with aortic stenosis, AFib, BPH, CHF, COPD and DM here for SOB. Also with chronic resp failure and wears 2L O2 chronically. Did not wear his bipap last night. Slept okay. no CP . he is awake but not as engaged. he was placed back on bipap this morning Exam Narrative: AF 97.5 114/57 72 17 100% 2L Gen - NARD Chest - left base crackles o/w clear. Rt upper chest port-a-cath CV -regular rate and rhythm. Abd - Soft, NT/ND, Positive BS - Barnard secured draining clear yellow urine Ext - no pedal edema Psych -depressed mood Skin - Warm and dry Objective Data Vital Signs Vital Signs: Vital Signs - 24 hr 11/22/24 21:25 11/22/24 22:45 11/22/24 22:45 Temperature 98.7 F Pulse Rate 88 80 Respiratory Rate 12 18 Blood Pressure Pulse Oximetry 97 95 Oxygen Delivery Nasal Cannula Oxygen Flow Rate 2 11/22/24 22:59 11/23/24 00:37 11/23/24 04:00 Temperature 98.1 F Pulse Rate 80 70 98 Respiratory Rate 27 H 16 18 Blood Pressure 159/82 H 110/61 Pulse Oximetry 99 99 96 Oxygen Delivery BiPAP Oxygen Flow Rate 11/23/24 08:00 11/23/24 09:08 11/23/24 09:08 Temperature 98.1 F Pulse Rate 111 H 77 77 Respiratory Rate 18 20 20 Blood Pressure 119/60 Pulse Oximetry 96 88 L Oxygen Delivery Room Air Oxygen Flow Rate 11/23/24 09:12 11/23/24 09:19 11/23/24 09:39 Temperature Pulse Rate 72 88 Respiratory Rate 20 31 H Blood Pressure Pulse Oximetry 97 97 Oxygen Delivery Nasal Cannula BiPAP Oxygen Flow Rate 2 11/23/24 11:05 11/23/24 12:24 11/23/24 15:06 Temperature 97.9 F Pulse Rate 80 72 Respiratory Rate 16 20 Blood Pressure 117/55 L Pulse Oximetry 93 99 Oxygen Delivery Nasal Cannula Oxygen Flow Rate 2 11/23/24 15:21 11/23/24 16:43 Temperature 97.5 F L Pulse Rate 70 72 Respiratory Rate 20 17 Blood Pressure 114/57 L Pulse Oximetry 100 Oxygen Delivery Oxygen Flow Rate Intake/Output Intake/Output: Intake & Output 11/20/24 11/21/24 11/22/24 11/23/24 23:59 23:59 23:59 23:59 Intake Total 2059 1300 1230 1420 Output Total 1999 550 0 1950 Balance 60 750 -820 -530 Meds/Results Medications: Active Medications Generic Name Dose Route Start Last Admin Trade Name Freq PRN Reason Stop Dose Admin Acetaminophen 650 mg 11/18/24 21:02 11/21/24 14:59 Acetaminophen 325 Mg Tablet PO 650 mg Q6H PRN Administration Pain, Mild Albuterol/Ipratropium 3 ml 11/18/24 21:45 11/23/24 15:10 Ipratropium 0.5 Mg/Albuterol Sulfate 2.5 Mg Ampul.Neb 3 Ml INHALATION 3 ml TIDRT JILLIAN Administration Apixaban 5 mg 11/18/24 21:05 11/23/24 09:11 Apixaban 5 Mg Tablet PO 5 mg Q12HR JILLIAN Administration Ascorbic Acid 500 mg 11/18/24 21:35 11/23/24 16:22 Ascorbic Acid 500 Mg Tablet PO 500 mg BID JILLIAN Administration Bisacodyl 10 mg 11/19/24 09:00 11/23/24 16:22 Bisacodyl 5 Mg Tablet Ec PO 10 mg BID JILLIAN Administration Bisacodyl 10 mg 11/18/24 21:02 Bisacodyl 10 Mg Suppository RECTAL DAILY PRN Constipation Bupropion HCl 150 mg 11/19/24 09:00 11/23/24 09:11 Bupropion Hcl Xl (24 Hr) 150 Mg Tabcr PO 150 mg DAILY JILILAN Administration Clopidogrel Bisulfate 75 mg 11/19/24 09:00 11/23/24 09:11 Clopidogrel Bisulfate 75 Mg Tablet PO 75 mg DAILY JILLIAN Administration Dextrose 12.5 gm 11/18/24 15:23 11/21/24 06:51 Dextrose 50% 25 Gm/50 Ml Syringe IV PUSH 12.5 gm PRN PRN Administration Hypoglycemia Protocol Diphenhydramine HCl 25 mg 11/18/24 21:02 11/22/24 06:48 Diphenhydramine Hcl Cap 25 Mg Capsule PO 25 mg TID PRN Administration allergies Gabapentin 100 mg 11/18/24 21:05 11/23/24 16:22 Gabapentin 100 Mg Capsule PO 100 mg TID JILLIAN Administration Glucagon 1 mg 11/18/24 15:23 Glucagon For Inj 1 Mg Vial IM PRN PRN Hypoglycemia Protocol Glucose 15 gm 11/18/24 15:23 11/22/24 06:04 Glucose Oral Gel 15 Gm Of Glucse In 37.5 Gm Tube PO 15 gm PRN PRN Administration Hypoglycemia Protocol Cefepime HCl 2 gm in 50 mls @ 100 mls/hr 11/18/24 06:00 11/23/24 13:36 Maxipime 2 Gm/Ns 50 Ml IVPB 11/24/24 23:59 Infused Q8HR JILLIAN Infusion Dextrose 1,000 mls @ 100 mls/hr 11/18/24 15:23 Dextrose 5% 1,000 Ml IVPB PRN PRN Hypoglycemia Protocol Vancomycin HCl 1,500 mg in 500 mls @ 250 mls/hr 11/22/24 17:00 11/23/24 18:19 Vancomycin 1,500 Mg/Ns 500 Ml IVPB 11/24/24 23:59 Infused Q24H JILLIAN Infusion Insulin Aspart 2 - 5 units 11/18/24 18:00 11/23/24 18:08 Insulin Aspart (*Bkc) 100 Units/Ml SUB-Q Not Given Q6HR [facility] Protocol Lactulose 20 gm 11/18/24 21:35 11/23/24 16:22 Lactulose 20 Gm/30 Ml Udc PO 20 gm TID JILLIAN Administration Levalbuterol HCl 1.25 mg 11/18/24 21:02 Levalbuterol Neb 1.25 Mg/3 Ml INHALATION Q6H PRN Shortness Of Breath Levothyroxine Sodium 25 mcg 11/19/24 06:30 11/23/24 05:35 Levothyroxine Sodium 25 Mcg Tablet PO 25 mcg DAILY@0630 [facility] Administration Methadone HCl 5 mg 11/18/24 21:05 11/23/24 09:12 Methadone Hcl (*Crx) 5 Mg Tablet PO 5 mg Q12HR JILLIAN Administration Mirtazapine 15 mg 11/18/24 21:05 11/22/24 21:40 Mirtazapine 15 Mg Tablet PO 15 mg HS JILLIAN Administration Multivitamins/Minerals 1 tab 11/19/24 09:00 11/23/24 09:13 Multivitamins /C Lutein (Centrum Silver) Tablet *Bkc PO 1 tab DAILY JILLIAN Administration Olanzapine 5 mg 11/18/24 21:05 11/23/24 09:13 Olanzapine 5 Mg Tablet PO 5 mg Q12HR JILLIAN Administration Ondansetron HCl 8 mg 11/18/24 21:36 Ondansetron Hcl Odt 4 Mg Tablet PO Q8H PRN Nausea Polyethylene Glycol 17 gm 11/18/24 21:02 Polyethylene Glycol 3350 17 Gm Powd.Pack PO DAILY PRN Constipation Sucralfate 1 gm 11/19/24 09:00 11/23/24 16:22 Sucralfate 1 Gm Tablet PO 1 gm TID JILLIAN Administration Radiology Results: ITS Impressions Chest X-Ray 11/17/24 19:53 IMPRESSION: Mild interstitial edema. Chest CT 11/18/24 09:14 IMPRESSION: 1. Persistent consolidation in the right upper lobe to a recent part to atelectasis but with lesser degree of volume loss expected for simple collapse and could not exclude underlying pneumonia or malignancy. 2. Worsening lung disease in the left lower lobe and posterior lingula suspicious for pneumonia. 3. Increasing small left pleural effusion. Labs Labs: Laboratory Results - last 24 hr 11/22/24 11/23/24 11/23/24 21:16 00:14 05:24 WBC 10.7 H RBC 2.73 L Hgb 7.9 L Hct 26.0 L MCV 95.2 MCH 28.9 MCHC 30.4 L RDW 16.1 H Plt Count 161 MPV 9.7 Immature Gran % (Auto) 0.9 H Neut % (Auto) 60.4 Lymph % (Auto) 16.4 L [place] % (Auto) 9.5 H Eos % (Auto) 12.0 H Baso % (Auto) 0.8 Lymph # (Auto) 1.76 [place] # (Auto) 1.0 H Eos # (Auto) 1.3 H Baso # (Auto) 0.1 Abs Immat Gran (auto) 0.10 H Absolute Neuts (auto) 6.5 Absolute Nucleated RBC 0.000 Nucleated RBC % 0.0 Sodium 137 Potassium 4.2 Chloride 101 Carbon Dioxide > 40 H Anion Gap BUN 20 Creatinine 0.80 Estim Creat Clear Calc 63 Estimated GFR > 60 Glucose 68 POC Capillary Glucose 95 90 Calcium 8.4 Magnesium 1.9 Total Bilirubin 0.4 AST 12 L ALT 7 Alkaline Phosphatase 72 Total Protein 5.0 L Albumin 2.1 L 11/23/24 11/23/24 11/23/24 05:39 06:46 08:01 WBC RBC Hgb Hct MCV MCH MCHC RDW Plt Count MPV Immature Gran % (Auto) Neut % (Auto) Lymph % (Auto) [place] % (Auto) Eos % (Auto) Baso % (Auto) Lymph # (Auto) [place] # (Auto) Eos # (Auto) Baso # (Auto) Abs Immat Gran (auto) Absolute Neuts (auto) Absolute Nucleated RBC Nucleated RBC % Sodium Potassium Chloride Carbon Dioxide Anion Gap BUN Creatinine Estim Creat Clear Calc Estimated GFR Glucose POC Capillary Glucose 70 84 72 Calcium Magnesium Total Bilirubin AST ALT Alkaline Phosphatase Total Protein Albumin 11/23/24 11/23/24 12:29 16:53 WBC RBC Hgb Hct MCV MCH MCHC RDW Plt Count MPV Immature Gran % (Auto) Neut % (Auto) Lymph % (Auto) [place] % (Auto) Eos % (Auto) Baso % (Auto) Lymph # (Auto) [place] # (Auto) Eos # (Auto) Baso # (Auto) Abs Immat Gran (auto) Absolute Neuts (auto) Absolute Nucleated RBC Nucleated RBC % Sodium Potassium Chloride Carbon Dioxide Anion Gap BUN Creatinine Estim Creat Clear Calc Estimated GFR Glucose POC Capillary Glucose 91 97 Calcium Magnesium Total Bilirubin AST ALT Alkaline Phosphatase Total Protein Albumin
[2024-11-23] MEDS: MIRTAZAPINE 15 MG TABLET PO (21:14)
[2024-11-23 23:29] LABS: Glucose Point of Care 102 mg/dl (65-105)
[2024-11-24] VITALS (11 sets, daily range): BP systolic 94–111; BP diastolic 50–68; PULSE 72–133; RESP 16–20; TEMP 36.1–36.8; O2SAT 91–100
[2024-11-24] MEDS: GLUCAGON FOR INJ 1 MG VIAL IM (05:29)
[2024-11-24] MEDS: CEFEPIME 2 GM/NS 50 ML 2 GM/50 ML BAG IVPB ×2 (05:31→13:26)
[2024-11-24 05:34] LABS: Glucose Point of Care 58 mg/dl (65-105)
[2024-11-24 05:50] LABS: Glucose Point of Care 87 mg/dl (65-105)
[2024-11-24] MEDS: DEXTROSE 5% 1,000 ML 1,000 ML 50 ML IV CONT (06:08)
[2024-11-24 06:21] LABS: Basophils Absolute Auto 0.1 K/mm3 (0.0-0.1); Eosinophils Absolute Auto 1.4 K/mm3 (0-0.3); Eosinophils Percent Auto 15.8 % (0-4.4); Hemoglobin 8.9 g/dL (14.0-18.0); Immature Granulocyte Absolute 0.07 K/mm3 (0.00-0.031); Immature Granulocyte Percent A 0.8 % (0-0.5); Lymphocytes Absolute Auto 1.42 K/mm3 (0.9-3.2); Lymphocytes Percent Auto 15.8 % (18.3-44.2); Mean Corpuscular HGB Conc 30.7 g/dl (32-36); Mean Corpuscular Hemoglobin 29.2 pg (26-34); Mean Corpuscular Volume 95.1 fl (80-100); Mean Platelet Volume 10.3 fl (7.4-10.4); Monocytes Absolute Auto 0.8 K/mm3 (0.1-0.6); Monocytes Percent Auto 8.4 % (2.6-8.5); Neutrophils Absolute Auto 5.2 K/mm3 (1.3-6.7); Neutrophils Percent Auto 58.2 % (45.5-73.1); Platelet Count Result 167 k/mm3 (150-375); Red Blood Count 3.05 M/mm3 (4.6-6.20); Red Cell Distribution Width 16.5 % (11.5-14.5)
[2024-11-24 06:39] LABS: Alanine Aminotransferase 8 U/L (6-50); Albumin Level 2.3 g/dL (3.5-5.1); Alkaline Phosphatase 78 U/L (38-126); Anion Gap -1 mmol/L (4-12); Aspartate Amino Transferase 14 U/L (17-59); Bilirubin,Total 0.4 mg/dL (0.2-1.3); Blood Urea Nitrogen 22 mg/dL (9-20); Calcium 8.7 mg/dL (8.4-10.2); Carbon Dioxide 38 mmol/L (22-30); Chloride 99 mmol/L (98-107); Estimated CRCL calculation 72 ml/min; Estimated Glomerular Filt Rate > 60; Glucose 60 mg/dL (65-110); Magnesium 1.9 mg/dL (1.6-2.3); Potassium 3.9 mmol/L (3.4-5.0); Sodium 136 mmol/L (137-145)
--- NOTE | 2024-11-24 06:40 | PC.NURSE ---
Lab called with critical glucose result of 60; patient is already being treated for hypoglycemia per protocol and physician order; provider previously notified of hypoglycemic event.
[2024-11-24] MEDS: LEVOTHYROXINE SODIUM 25 MCG TABLET PO (06:46)
[2024-11-24] MEDS: BISACODYL 5 MG TABLET EC 10 MG PO ×2 (08:00→17:32)
[2024-11-24] MEDS: OLANZapine 5 MG TABLET PO (08:00)
[2024-11-24] MEDS: APIXABAN 5 MG TABLET PO (08:00)
[2024-11-24] MEDS: SUCRALFATE 1 GM TABLET PO ×3 (08:00→17:33)
[2024-11-24] MEDS: ASCORBIC ACID 500 MG TABLET PO ×2 (08:00→17:33)
[2024-11-24] MEDS: MULTIVITAMINS /C LUTEIN (CENTRUM SILVER) TABLET *BKC 1 TAB PO (08:00)
[2024-11-24] MEDS: CLOPIDOGREL BISULFATE 75 MG TABLET PO (08:00)
[2024-11-24] MEDS: buPROPion HCL XL (24 HR) 150 MG TABCR PO (08:00)
[2024-11-24] MEDS: GABAPENTIN 100 MG CAPSULE PO ×3 (08:01→17:33)
[2024-11-24] MEDS: methADONE HCL (*CRX) 5 MG TABLET PO (08:01)
[2024-11-24] MEDS: LACTULOSE 20 GM/30 ML UDC PO ×3 (08:02→17:54)
[2024-11-24] MEDS: IPRATROPIUM 0.5 MG/ALBUTEROL SULFATE 2.5 MG AMPUL.NEB 3 ML INHALATION ×2 (08:07→13:56)
[2024-11-24 08:54] LABS: Glucose Point of Care 82 mg/dl (65-105)
--- NOTE | 2024-11-24 11:09 | PCNFU ---
Nutrition Follow-Up Complete: Severe protein calorie malnutrition related to chronic loss of appetite, increased needs from wounds as evidenced by weight loss 11%/2 months; intakes <75% needs >1 month; severe muscle wasting and fat loss Goal: Adequate PO intake at least 75% meals and supplements Patient will continue current goal. Pt current nutrition is Heart Health/Minced and Moist, Level 5 with Mild Thick liquids, Level 2 Last recorded weight is 82.9 kg, up from 77.6 kg on admit. Bowel Motility: +BM reported 11/24 Labs Reviewed:Cr 0.6, Glu 60, BUN 22, Alb 2.3 Meds Noted:Lactulose, NovoLog, Remeron, Vit C Skin: Stage IV-sacrum, Deep Tissue-nose and hip Additional Notes: Patient remains on modified diet with thickened liquids. Intake has been 10-75% of meals. Spoke with nursing today, Dinner was about 75% last night. Diet supplements are being sent for additional kcal and protein needs of Ensure Enlive TID and Sherwin BID. Agree with diet orders. monitoring intakes, weights, labs, meds, output, wounds, plan of care, supplement tolerance Follow up in 5 days
[2024-11-24 12:53] LABS: Glucose Point of Care 69 mg/dl (65-105)
[2024-11-24 13:22] LABS: Glucose Point of Care 74 mg/dl (65-105)
[2024-11-24 14:09] LABS: Glucose Point of Care 98 mg/dl (65-105)
--- NOTE | 2024-11-24 14:23 | PM.DS ---
DS: Admitting Diagnosis Discharge Date 11/24/24 Admitting Diagnosis Shortness of breath DS: Discharge Diagnosis Discharge Diagnosis (1) Acute hypoxic on chronic hypercapnic respiratory failure: Code(s): J96.01 - Acute respiratory failure with hypoxia; J96.12 - Chronic respiratory failure with hypercapnia Status: Acute (2) Heart failure with preserved ejection fraction: Code(s): I50.30 - Unspecified diastolic (congestive) heart failure Status: Acute (3) Atrial fibrillation with controlled ventricular rate: Code(s): I48.91 - Unspecified atrial fibrillation Status: Chronic (4) Diabetes mellitus with hyperglycemia: Qualifiers: Diabetes mellitus [facility] insulin use: unspecified [facility] insulin use status Diabetes mellitus type: due to underlying condition Qualified Code(s): E08.65 - Diabetes mellitus due to underlying condition with hyperglycemia Code(s): E11.65 - Type 2 diabetes mellitus with hyperglycemia Status: Acute (5) Non-small cell carcinoma of lung: Code(s): C34.90 - Malignant neoplasm of unspecified part of unspecified bronchus or lung Status: Acute (6) COPD (chronic obstructive pulmonary disease): Code(s): J44.9 - Chronic obstructive pulmonary disease, unspecified Status: Acute (7) Pressure ulcer: Code(s): L89.90 - Pressure ulcer of unspecified site, unspecified stage Status: Acute (8) Severe protein-calorie malnutrition: Code(s): E43 - Unspecified severe protein-calorie malnutrition Status: Acute DS: Summary Hospital Course Reason for hospitalization: 78yo male with aortic stenosis, AFib, BPH, CHF, COPD and DM here for SOB. Also with chronic resp failure and wears 2L O2 chronically. Please see H&P for details. Hospital Course: Patient presented with SOB and found to have acute on chronic respiratory failure. He was 80% on his home 2 L of oxygen. CXR showing mild interstitial edema. CT chest showing persistent consolidation in the RUL from atelectasis but can not exclude underlying PNA or malignancy; worsening lung disease in the LLL and posterior lingula suspicious for PNA; increasing small left pleural effusion. Patient placed on BiPAP. Patient has CHF/COPD/lung CA and history of recurrent pneumonias. He was treated with Lasix, breathing treatments, and antibiotics. Cefepime and Vancomycin started. UA was clear. MRSA nasal swab positive. BCx NGTD. Able to wean off bipap and back down to 2L. He continued IV abx and completed a 7 day course. He was treated with one dose of IV Lasix but not continued. BNP 725. Echo in March 2023 showing EF 55-60% with grade I diastolic dysfunction. [place] not in acute CHF exacerbation. Patient with pAFib. EKG on admission showing sinus mechanism. We continued Eliquis. Not on rate controlling agents. A1c 4.5. Patient is diet controlled. The patient's blood glucose was low at times which occasionally required treatment. 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 CT scan this admission could be recurrent lung cancer. Patient is DNR. Pressure ulcers were present on admission. Wound care consult was obtained and continued off-loading. Patient with severe protein calorie malnutrition related to chronic loss of appetite and increased needs as evidenced by weight loss of 11% over the past 2 months, intakes less than 75% of needs for greater than 1 month and severe muscle wasting and fat loss. Dietary consulted. Supplements added. Early in the hospital course, we did discuss goals of care with patient and family. They are not quite ready for comfort measures. Patient overall did well was able be discharged back to nursing on 11/24/2024. Status at Discharge Cognitive/behavioral status at discharge: stable Time Spent with Patient Time attestation: Total time spent providing and/or coordinating discharge services: 34 minutes Time spent: Greater than 30 minutes Exam Narrative: AF 97.1 106/58 79 18 97% 2L Gen - NARD Chest - minor left base crackles o/w clear. Rt upper chest port-a-cath CV -regular rate and rhythm. Abd - Soft, NT/ND, Positive BS - Barnard secured draining clear yellow urine Ext - no pedal edema Psych -depressed mood Skin - Warm and dry DS: Data Data Completed and Pending Labs on day of discharge: Labs from last 24 hours 11/24/24 11/24/24 11/24/24 14:07 13:20 12:50 WBC RBC Hgb Hct MCV MCH MCHC RDW Plt Count MPV Immature Gran % (Auto) Neut % (Auto) Lymph % (Auto) [place] % (Auto) Eos % (Auto) Baso % (Auto) Lymph # (Auto) [place] # (Auto) Eos # (Auto) Baso # (Auto) Abs Immat Gran (auto) Absolute Neuts (auto) Absolute Nucleated RBC Nucleated RBC % Sodium Potassium Chloride Carbon Dioxide Anion Gap BUN Creatinine Estim Creat Clear Calc Estimated GFR Glucose POC Capillary Glucose 98 74 69 Calcium Magnesium Total Bilirubin AST ALT Alkaline Phosphatase Total Protein Albumin 11/24/24 11/24/24 11/24/24 08:45 05:47 05:38 WBC 9.0 RBC 3.05 L Hgb 8.9 L Hct 29.0 L MCV 95.1 MCH 29.2 MCHC 30.7 L RDW 16.5 H Plt Count 167 MPV 10.3 Immature Gran % (Auto) 0.8 H Neut % (Auto) 58.2 Lymph % (Auto) 15.8 L [place] % (Auto) 8.4 Eos % (Auto) 15.8 H Baso % (Auto) 1.0 Lymph # (Auto) 1.42 [place] # (Auto) 0.8 H Eos # (Auto) 1.4 H Baso # (Auto) 0.1 Abs Immat Gran (auto) 0.07 H Absolute Neuts (auto) 5.2 Absolute Nucleated RBC 0.000 Nucleated RBC % 0.0 Sodium 136 L Potassium 3.9 Chloride 99 Carbon Dioxide 38 H Anion Gap -1 L BUN 22 H Creatinine 0.69 L Estim Creat Clear Calc 72 Estimated GFR > 60 Glucose 60 L POC Capillary Glucose 82 87 Calcium 8.7 Magnesium 1.9 Total Bilirubin 0.4 AST 14 L ALT 8 Alkaline Phosphatase 78 Total Protein 5.0 L Albumin 2.3 L 11/24/24 11/23/24 11/23/24 05:24 23:22 16:53 WBC RBC Hgb Hct MCV MCH MCHC RDW Plt Count MPV Immature Gran % (Auto) Neut % (Auto) Lymph % (Auto) [place] % (Auto) Eos % (Auto) Baso % (Auto) Lymph # (Auto) [place] # (Auto) Eos # (Auto) Baso # (Auto) Abs Immat Gran (auto) Absolute Neuts (auto) Absolute Nucleated RBC Nucleated RBC % Sodium Potassium Chloride Carbon Dioxide Anion Gap BUN Creatinine Estim Creat Clear Calc Estimated GFR Glucose POC Capillary Glucose 58 L* 102 97 Calcium Magnesium Total Bilirubin AST ALT Alkaline Phosphatase Total Protein Albumin Discharge Plan Discharge Attending physician on discharge: Sebastian Lui Discharging Clinician: Sebastian Lui Anticipated Discharge Date/Time: 11/24/24 14:43 Patient Disposition: [facility]Asst Living Activity: as tolerated Diet: regular, diabetic and other - see discharge instructions Discharge Instructions: Minced and moist level 5 diet with level 2 mildly thickened liquids. Continue dietary supplements. Routine Barnard care. Change out Barnard every 4 weeks. Please check glucose before meals. Record for the doctor's review. Check blood pressure 1 to 2 times a day. Record for the doctor's review. Take precautions to avoid falls. Routine skin care. Frequent turning when in bed. Encourage BiPAP use at night, with naps and as needed when feeling SOB. Contact the doctor if the patient has fevers or other worrisome symptoms. Avoid NSAIDs (ibuprofen, naproxen, Aleve). Tylenol is safe to take. Follow-up with the provider at the facility. Thank you for using [facility] for your health care needs. Patient Instructions: Antibiotic Form, Heart Failure (DC) Patient Language: [place] Stand Alone Forms: General Discharge Information Follow-up/Referrals: Jewel Aleman MD [Primary Care Provider] - Call for Appointment Discharge Medications: Continued ondansetron 8 mg Tablet,Disintegrating 8 mg PO Q8H PRN (Reason: Nausea) albuterol sulfate 90 mcg/actuation HFA aerosol inhaler 1 puff INHALATION Q4H PRN (Reason: Shortness Of Breath) acetaminophen 325 mg Tablet 650 mg PO Q6H PRN (Reason: Pain, Mild) ascorbic acid (vitamin C) 500 mg Tablet 500 mg PO BID bisacodyl [Dulcolax (bisacodyl)] 5 mg Tablet,Delayed Release (Dr/Ec) 10 mg PO BID lactulose 10 gram/15 mL Solution 20 g PO TID Adults Multivitamin 18 mg iron-400 mcg-25 mcg Tablet 1 tablet PO DAILY methadone 5 mg tablet 5 mg PO BID bisacodyl 10 mg Suppository 10 mg RECTAL DAILY PRN (Reason: Constipation) Qty: 12 0RF sucralfate [Carafate] 1 gram Tablet 1 g PO TID levothyroxine 25 mcg Tablet 25 mcg PO DAILY polyethylene glycol 3350 [Miralax] 17 gram powder in packet 17 g PO DAILY PRN (Reason: Constipation) levalbuterol HCl 1.25 mg/3 mL solution for nebulization 1.25 mg inhalation Q6H PRN (Reason: SOB) nitrofurantoin monohyd/m-cryst [Macrobid] 100 mg capsule 100 mg PO Q12H 5 Days Qty: 10 0RF Rx Instructions: must administer with a meal/food olanzapine 5 mg Tablet 5 mg PO BID ipratropium bromide 0.02 % Solution 0.5 mg inhalation TID Qty: 75 0RF clopidogrel [Plavix] 75 mg Tablet 75 mg PO DAILY mirtazapine [Remeron] 15 mg Tablet 15 mg PO HS Eliquis 5 mg Tablet 5 mg PO Q12HR Qty: 90 0RF Rx Instructions: start taking 5 mg twice a day on 10/16 bupropion HCl 150 mg tablet extended release 24 hr 150 mg PO DAILY gabapentin 100 mg capsule 100 mg PO TID Qty: 90 0RF Discontinued Pro-Stat Sugar Free 15 gram liquid 30 ml PO DAILY Tigan 100 mg/mL solution 100 mg IM ONCE PRN (Reason: migraines) potassium chloride 20 mEq Tablet Extended Release 20 meq PO BID diphenhydramine HCl [Benadryl Allergy] 25 mg Tablet 25 mg PO TID PRN (Reason: allergies) trospium 20 mg Tablet 20 mg PO BID Rx Instructions: administer on an empty stomach bisacodyl [Laxative (bisacodyl)] 5 mg Tablet,Delayed Release (Dr/Ec) 5 mg PO QAM Qty: 30 0RF Date of admission: 11/17/24 23:41 Primary Care Provider: Jewel Aleman Admitting Provider: Kye Weaver Attending physician on admission: Kye Weaver Condition: Stable Hospitalist MIPS Heart Failure (Exclusion) Patient has history of Heart Transplant or Left Ventricular Assistive Device?: No IF YES, STOP HERE Heart Failure (Qualifier) Patient has current or prior documentation of LVEF less than or equal to 40%, or mod/servere depressed LVSF?: No IF NO, STOP HERE
[2024-11-24 17:11] LABS: SARS-CoV-2 RNA PCR Negative (Negative)
[2024-11-24 17:25] LABS: Glucose Point of Care 59 mg/dl (65-105)
[2024-11-24 17:51] LABS: Glucose Point of Care 58 mg/dl (65-105)
[2024-11-24] MEDS: GLUCOSE ORAL GEL 15 GM OF GLUCSE IN 37.5 GM TUBE PO (17:51)
[2024-11-24 18:15] LABS: Glucose Point of Care 82 mg/dl (65-105)
--- OUTSIDE RECORDS SUMMARY | 2024-11-25 05:08 | XMS_ITS | Encounter Summary ---
Author Organization [facility] [employer] [facility] Address [address] [place] [address] Care Team Providers Care Entry Clerk Name Role Phone Etienne Maher DO Primary Care Provider [phone] Reason for Visit * Reason Comments Cancer Encounter Details Date Type Department Care Team (Late st Contact Info) Description 03/01/2023 10:30 AM CDT Video Visit [facility] Oncology and Hematology - Gio [address] [facility] [address] [place] [address] Matty Murry MD [address] [facility] [address] [place] [address] Malignant neoplasm of right lung, unspecified part of lung (Primary Dx) Social History Tobacco Use Types Packs/Day Years Used Date Smoking Tobacco: Former Cigarettes Smokeless Tobacco: Never Comments:quit in 1999 Alcohol Use Standard Drinks/Week Comments Never 0 (1 standard drink = 0.6 oz pur e alcohol) Sex and Gender Information Value Date Recorded Sex Assigned at Not on file Gender Identity Not on file Sexual Orientation Not on file COVID-19 Exposure Response Date Recorded In the last 10 days, have yo u been in contact with someone who was confirmed or suspected to have Coronavirus/COVID-19? No / Unsure 03/01/2023 10:02 AM CDT documented as of this encounter Progress Notes * Matty Murry MD - 03/01/2023 10:42 AM CDT HEMATOLOGY / ONCOLOGY PROGRESS NOTE Patient Identification: Name: Farhan Armstrong Age: 77 y.o. Sex: male : 1945 DIAGNOSIS T2 N0 M0 stage IIB non-small cell lung cancer status post CT-guided biopsy of the right upper lobe lung mass done on January 10, 2022 that showed squamous cell carcinoma PD-L1 expression of 5% K-rasmutation not detected, EGFR mutation not detected, ALK gene rearrangement ROS1 gene rearrangement mutation not detected. CURRENT TREATMENT Surveillance TREATMENT HISTORY Radiation therapy treatment completed June 29, 2022 Sequential chemotherapy with carboplatin and Taxol cycle 1/4 started on August 10, 2022 SUBJECTIVE This is a video visit with patient. His buttock wound is healing well and almost close to complete closure. Denies any fevers and chills. No shortness of breath and chest pain. No other new complaints. Review of system Constitutional: Patient did not mention fevers, sweats, complain of mild tiredness and fatigue HEENT: Patient did not mention sinus congestion, hearing or vision problems Respiratory: Patient did not mention cough, dyspnea, wheeze Cardiovascular: Patient did not mention chest pain, exertional chest pressure/discomfort, nausea, syncope, shortness of breath GI: Patient did not mention constipation, diarrhea, dsyphagia, reflux symptoms, vomiting, melena : Patient did not mention dysuria, frequency, incontinence, urgency Integumentary system: no lymphadenopathy, sweats, flushing Musculoskeletal: Patient not mention: myalgia, arthralgia Neurological: Patient did not mention blurry or disturbed vision, numbness/weakness, dizziness Skin: Buttock wound is healing well 12 point review system was reviewed Objective: Vital signs in last 24 hours: As per nursing note Exam: This is a video visit. LABS Labs from August 10 showed WBC 11 hemoglobin 13.6 platelet 144,000 creatinine 1.5 Labs from show WBC 10.4 hemoglobin 12.2 platelet 187,000 creatinine 1.3 Labs from November 23 showed WBC 6.9 hemoglobin 13.1 platelet 157,000 creatinine 2.0 Assessment: Plan: Patient Active Problem List Diagnosis Date Noted Malignant neoplasm of upper lobe of right lung 04/20/2022 T2 N0 M0 stage IIB non-small cell lung cancer status post CT-guided biopsy of the right upper lobe lung mass done on January 10, 2022 that showed squamous cell carcinoma PD-L1 expression of 5% K-rasmutation not detected, EGFR mutation not detected, ALK gene rearrangement ROS1 gene rearrangement mutation not detected. PET scan done on May 03, 2022 showed 5.3 x 3.8 cm right upper lobe of the lung mass with SUV of 23.3 worsened from 2.9 x 2.4 cm on January 04, 2022. There was no evidence of thoracic lymphadenopathy or extrathoracic metastasis. Case was discussed with Dr Salter. Patient was not found to be a surgical candidate. Patient completed radiation therapy treatment on June 29, 2022. Patient only received 1 cycle of chemotherapy with carboplatin and Taxol on August 10, 2022. CT scan of the chest done on February 22 showed stable right upper lobe lung nodule now measures 2.5 x 1.4 cm. Clinically he is asymptomatic. I plan to see him back in [address] chest abdomen and pelvis. Follow-up in 4 months. Buttock wound. This is healing well. We will continue current treatment. TOBACCO COUNSELING He is not a tobacco user. 03/01/2023 Matty Murry MD Patient's identity confirmed yes Patient gave verbal consent to have these services billed to their insurance and expressed understanding that co-insurance and deductible may apply: yes This encounter was completed via two-way synchronous audio and video communication. documented in this encounter Plan of Treatment Not on file documented as of this encounter Visit Diagnoses Diagnosis Malignant neoplasm of right lung, unspecified part of lung- Primary documented in this encounter Care Teams Entry Clerk Relationship Specialty Start Date End Date Etienne Maher DO [address] [facility] [address] [facility] [address] [place] [address] PCP - General Internal Medicine 04/20/22 documented as of this encounter
--- OUTSIDE RECORDS SUMMARY | 2024-11-25 05:08 | XMS_ITS | Encounter Summary ---
Author Organization [facility] Address [address] [place] [address] Care Team Providers Care Varnish Maker Helper Name Role Phone Etienne Maher DO Primary Care Provider [phone] Encounter Details Date Type Department Care Team (Late st Contact Info) Description 12/18/2023 External Device Data [facility] ABSTRACTION Provider, Abstract NO ADDRESS ON FILE Social History Tobacco Use Types Packs/Day Years Used Date Smoking Tobacco: Former Cigarettes Smokeless Tobacco: Never Comments:quit in 1999 Alcohol Use Standard Drinks/Week Comments Never 0 (1 standard drink = 0.6 oz pur e alcohol) Sex and Gender Information Value Date Recorded Sex Assigned at Not on file Gender Identity Not on file Sexual Orientation Not on file documented as of this encounter Plan of Treatment Not on file documented as of this encounter Visit Diagnoses Not on filedocumented in this encounter Care Teams Varnish Maker Helper Relationship Specialty Start Date End Date Etienne Maher DO [address] [place] [address] PCP - General Internal Medicine 04/20/22 documented as of this encounter
--- OUTSIDE RECORDS SUMMARY | 2024-11-25 05:08 | XMS_ITS | Encounter Summary ---
Author Organization [facility] [employer] [facility] Address [address] [place] [address] Care Team Providers Care Radio Board Operator Name Role Phone Etienne Maher DO Primary Care Provider [phone] Encounter Details Date Type Department Care Team (Late st Contact Info) Description 07/29/2023 Orders Only [facility] Oncology and Hematology - Gio [address] [facility] [address] [place] [address] Matty Murry MD [address] [facility] [address] [place] [address] Malignant neoplasm of upper lobe of right lung Social History Tobacco Use Types Packs/Day Years [...] encounter Visit Diagnoses Diagnosis Malignant neoplasm of upper lobe of right lung Malignant neoplasm of upper lobe, bronchus or lung documented in this encounter Care Teams Radio Board Operator Relationship Specialty Start Date End Date Etienne Maher DO [address] [place] [address] PCP - General Internal Medicine 04/20/22 documented as of this encounter
--- OUTSIDE RECORDS SUMMARY | 2024-11-25 05:08 | XMS_ITS | Encounter Summary ---
Author Organization [facility] [employer] [facility] Address [address] [place] [address] Care Team Providers Care Slide Machine Tender Name Role Phone Etienne Maher DO Primary Care Provider [phone] Encounter Details Date Type Department Care Team (Late st Contact Info) Description 05/29/2022 Orders Only [facility] Oncology and Hematology - Gio [address] [place] [address] Provider, Abstract NO ADDRESS ON FILE Social [...] suspected to have Coronavirus/COVID-19? No / Unsure 06/01/2022 9:41 AM CDT documented as of this encounter Plan of Treatment Not on file documented as of this encounter Procedures Procedure Name Priority Date/Time Associated Diagnosis Comments POC GLUCOSE Routine 05/03/2022 documented in this encounter Results * POC GLUCOSE (05/03/2022) Blood, whole Abstract Provider POINT OF CARE TESTIN G documented in this encounter Visit Diagnoses Not on filedocumented in this encounter Care Teams Slide Machine Tender Relationship Specialty Start Date End Date Etienne Maher DO [address] [id number] PCP - General Internal Medicine 04/20/22 documented as of this encounter
--- OUTSIDE RECORDS SUMMARY | 2024-11-25 05:08 | XMS_ITS | Encounter Summary ---
Author Organization [facility] [employer] [facility] Address [address] [place] [address] Care Team Providers Care Sales Office Administrator Name Role Phone Etienne Maher DO Primary Care Provider [phone] Encounter Details Date Type Department Care Team (Late st Contact Info) Description 02/26/2023 Orders Only [facility] Oncology and Hematology - Gio [address] [facility] [address] [place] [address] Matty Murry MD [address] [facility] [address] [place] [address] Social History Tobacco Use Types Packs/Day Years [...] Procedure Name Priority Date/Time Associated Diagnosis Comments CREATININE Routine 02/22/2023 documented in this encounter Results * CREATININE (02/22/2023) Blood Matty Murry MD CHEMISTRY ORDERABLES documented in this encounter Visit Diagnoses Not on filedocumented in this encounter Care Teams Sales Office Administrator Relationship Specialty Start Date End Date Etienne Maher DO [address] [facility] [address] [facility] [address] [place] [phone] PCP - General Internal Medicine 04/20/22 documented as of this encounter
--- OUTSIDE RECORDS SUMMARY | 2024-11-25 05:08 | XMS_ITS | Encounter Summary ---
Author Organization [facility] [employer] [facility] Address [address] [place] [address] Care Team Providers Care Tube Room Cashier Name Role Phone Etienne Maher DO Primary Care Provider [phone] Encounter Details Date Type Department Care Team (Late st Contact Info) Description 12/10/2022 Orders Only [facility] Oncology and Hematology - G[place] [address] [facility] [address] [place] [address] Matty Murry MD [address] [facility] [address] [place] [address] Malignant neoplasm of upper lobe [...] suspected to have Coronavirus/COVID-19? No / Unsure 11/23/2022 10:37 AM SWEATER OPERATOR documented as of this encounter Plan of Treatment Not on file documented as of this encounter Visit Diagnoses Diagnosis Malignant neoplasm of upper lobe of right lung Malignant neoplasm of upper lobe, bronchus or lung documented in this encounter Care Teams Tube Room Cashier Relationship Specialty Start Date End Date Etienne Maher DO [address] [place] [phone] PCP - General Internal Medicine 04/20/22 documented as of this encounter
--- OUTSIDE RECORDS SUMMARY | 2024-11-25 05:08 | XMS_ITS | Encounter Summary ---
Author Organization [facility] Address [address] [facility] [place] [address] Care Team Providers Care Fashion Consultant Selling Name Role Phone Etienne Maher DO Primary Care Provider [phone] Encounter Details Date Type Department Care Team (Latest Contact Info) Description 08/17/2024 Travel Social History Tobacco Use Types Packs/Day Years Used Date Smoking Tobacco: Former Cigarettes Smokeless Tobacco: Never Sex and Gender Information Value Date Recorded Sex Assigned at Not on file Gender Identity Not on file Sexual Orientation Not on file documented as of this encounter Plan of Treatment Upcoming Encounters Date Type Department Care Team (Late st Contact Info) Description 01/22/2025 1:15 PM REGULATOR MECHANIC Office Visit [facility] - Urology [address] [place] [id number] Jordan Noonan MD [address] [place] [address] documented as of this encounter Visit Diagnoses Not on filedocumented in this encounter Care Teams Fashion Consultant Selling Relationship Specialty Start Date End Date Etienne Maher DO [address] [place] [address] PCP - General 01/12/22 documented as of this encounter
--- OUTSIDE RECORDS SUMMARY | 2024-11-25 05:08 | XMS_ITS | Encounter Summary ---
Author Organization [facility] [employer] [facility] Address [address] [place] [address] Care Team Providers Care Bleach Liquor Maker Name Role Phone Etienne Maher DO Primary Care Provider [phone] Encounter Details Date Type Department Care Team (Late st Contact Info) Description 11/23/2022 Orders Only [facility] Oncology and Hematology - Gio [address] [place] [address] Larissa Velez Malignant neoplasm of upper lobe of right [...] Coronavirus/COVID-19? No / Unsure 11/23/2022 10:37 AM LABORER RAGS documented as of this encounter Plan of Treatment Not on file documented as of this encounter Visit Diagnoses Diagnosis Malignant neoplasm of upper lobe of right lung Malignant neoplasm of upper lobe, bronchus or lung documented in this encounter Care Teams Bleach Liquor Maker Relationship Specialty Start Date End Date Etienne Maher DO [address] [place] [address] PCP - General Internal Medicine 04/20/22 documented as of this encounter
--- OUTSIDE RECORDS SUMMARY | 2024-11-25 05:08 | XMS_ITS | Encounter Summary ---
Author Organization [facility] Address [address] [facility] [address] Valdovinosn: Epic Prelude ADT [place] [address] Care Team Providers Care Dice Maker Name Role Phone Etienne Maher DO Primary Care Provider [phone] Encounter Details Date Type Department Care Team (Latest Contact Info) Description 03/01/2023 Travel Social History Tobacco Use Types Packs/Day [...] on filedocumented in this encounter Care Teams Dice Maker Relationship Specialty Start Date End Date Etienne Maher DO [address] [place] [address] PCP - General Internal Medicine 04/20/22 documented as of this encounter
--- OUTSIDE RECORDS SUMMARY | 2024-11-25 05:08 | XMS_ITS | Encounter Summary ---
Author Organization [facility] Address [address] [facility] [address] Valdovinosn: Epic Prelude ADT [place] [address] Care Team Providers Care Horse Racing Manager Name Role Phone Etienne Maher DO Primary Care Provider [phone] Encounter Details Date Type Department Care Team (Latest Contact Info) Description 10/05/2022 Travel Social History Tobacco Use Types Packs/Day [...] suspected to have Coronavirus/COVID-19? No / Unsure 10/05/2022 9:14 AM WOOD MACHINIST APPRENTICE documented as of this encounter Plan of Treatment Not on file documented as of this encounter Visit Diagnoses Not on filedocumented in this encounter Care Teams Horse Racing Manager Relationship Specialty Start Date End Date Etienne Maher DO [address] [place] [address] PCP - General Internal Medicine 04/20/22 documented as of this encounter
--- OUTSIDE RECORDS SUMMARY | 2024-11-25 05:08 | XMS_ITS | Continuity of Care Document ---
Author [facility] Address [address] [facility] [place] [address] Care Team Providers Care Social Service Liaison Name Role Phone Jewel Aleman MD Primary Care Provider Supa Pham MD Emergency Provider + Serafin Mirza MD Admit Provider Sandrine Martinez MD Attending Provider Jennifer Marin MD Other Provider Harshal Haile MD Other Provider Sundeep Cabrera MD Other Provider Negrito Taveras PROFESSOR OF ART Other Provider [phone] Shereen Gonzalez MD Other Provider Sim Thompson MD Other Provider Kye Weaver MD Other Provider [phone] Merida Elliot CEBALLOS DO Emergency Provider [phone] Augustina Dunlap PA-C Attending Provider Gildardo Blanco MD Other Provider Nitin Santana MD Other Provider Yash Keene MD Other Provider Kaya Wild DO Other Provider [phone] Francine Cheney APRN Other Provider Donya dAams MD Other Provider Hunter Maldonado MD Other Provider Sebastian Muñiz MD Emergency Provider + Kye Weaver MD Admit Provider [phone] Arely Levine APRN Attending Provider [phone] Dilan Yancey MD Other Provider Sebastian Lui MD Other Provider Trell Walters DO Other Provider Kitty Meyers APRN Other Provider Jesús Cortez MD Other Provider Fiordaliza Melissa PA-C Emergency Provider Sebastian Lui MD Admit Provider Cely Loyola APRN Attending Provider Care Teams Patient Care Team Team Status: Active Member Role Status Dates Jewel Aleman MD Primary Care Provider Active Visit Care Team Team Status: Inactive Member Role Status Dates Jewel Aleman MD Primary Care Provider Active Start: June 28, 2024 End: July 04, 2024 Supa Pham MD Emergency Provider Active Start: June 28, 2024 End: July 04, 2024 Serafin Mirza MD Admit Provider Active Sta rt: June 28, 2024 End: July 04, 2024 Sandrine Martinez MD Attending Provider Active S tart: June 28, 2024 End: July 04, 2024 Jennifer Marin MD Other Provider Active Star t: June 28, 2024 End: July 04, 2024 Harshal Haile MD Other Provider Active Start: June 28, 2024 End: July 04, 2024 Sundeep Cabrera MD Other Provider Active Start: June 28, 2024 End: July 04, 2024 Negrito Taveras CRNA Other Provider Active Start : June 28, 2024 End: July 04, 2024 Shereen Gonzalez MD Other Provider Active Start: June 28, 2024 End: July 04, 2024 Sim Thompson MD Other Provider Active Star t: June 28, 2024 End: July 04, 2024 Kye Weaver MD Other Provider Active Sta rt: June 28, 2024 End: July 04, 2024 Visit Care Team Team Status: Inactive Member Role Status Dates Jewel Aleman MD Primary Care Provider Active Start: August 26, 2024 End: September 03, 2024 Elliot Merida III, DO Emergency Provider Active Start: August 26, 2024 End: September 03, 2024 Serafin Mirza MD Admit Provider Active Sta rt: August 26, 2024 End: September 03, 2024 Augustina Dunlap PA-C Attending Provider Active Start: August 26, 2024 End: September 03, 2024 Gildardo Blanco MD Other Provider Active Start: August 26, 2024 End: September 03, 2024 Nitin Santana MD Other Provider Active Start: August 26, 2024 End: September 03, 2024 Sundeep Cabrera MD Other Provider Active Start: August 26, 2024 End: September 03, 2024 Yash Keene MD Other Provider Active Start: August 26, 2024 End: September 03, 2024 Kaya Wild DO Other Provider Active Star t: August 26, 2024 End: September 03, 2024 Francine Cheney APRN Other Provider Active Sta rt: August 26, 2024 End: September 03, 2024 Donya Adams MD Other Provider Active St art: August 26, 2024 End: September 03, 2024 Sim Thompson MD Other Provider Active Star t: August 26, 2024 End: September 03, 2024 Hunter Maldonado MD Other Provider Active Star t: August 26, 2024 End: September 03, 2024 Visit Care Team Team Status: Inactive Member Role Status Dates Jewel Almean MD Primary Care Provider Active Start: October 05, 2024 End: October 13, 2024 Sebastian Muñiz MD Emergency Provider Active Start: October 05, 2024 End: October 13, 2024 Kye Weaver MD Admit Provider Active Sta rt: October 05, 2024 End: October 13, 2024 Arely Levine APRN Attending Provider Active Start: October 05, 2024 End: October 13, 2024 Dilan Yancey MD Other Provider Active Start : October 05, 2024 End: October 13, 2024 Sebastian Lui MD Other Provider Active Sta rt: October 05, 2024 End: October 13, 2024 Sundeep Cabrera MD Other Provider Active Start: October 05, 2024 End: October 13, 2024 Yash Keene MD Other Provider Active Start: October 05, 2024 End: October 13, 2024 Trell Walters DO Other Provider Active Start: N ov2023 End: October 13, 2024 Kitty Meyers APRN Other Provider Active Star t: October 05, 2024 End: October 13, 2024 Sim Thompson MD Other Provider Active Star t: October 05, 2024 End: October 13, 2024 Jesús Cortez MD Other Provider Active Start: October 05, 2024 End: October 13, 2024 Visit Care Team Team Status: Inactive Member Role Status Dates Jewel Aleman MD Primary Care Provider Active Start: October 27, 2024 End: October 30, 2024 Fiordaliza Melissa PA-C Emergency Provider Active Start: October 27, 2024 End: October 30, 2024 Sebastian Lui MD Admit Provider Active Sta rt: October 27, 2024 End: October 30, 2024 Cely Loyola APRN Attending Provider Active Start: October 27, 2024 End: October 30, 2024 Chief Complaint and Reason for Visit Chief Complaint Admit Date Community-acquired pneumonia, hypoxic re spiratory June 28, 2024 8:28pm UTI, constipation, nausea, vomitting Oct sola 2023 9:11am Acute hypoxic respiratory failure COPD a trial fib October 05, 2024 11:41am Acute resp. failure with hypoxia, multif oral pneum October 27, 2024 3:09pm Reason for Visit Admit Date Acute hypoxic on chronic hypercapnic res piratory failure June 28, 2024 8:28pm Atrial fibrillation June 28, 2024 8: 28pm Community acquired pneumonia June 8:28pm History of lung cancer June 28, 2024 8:28pm Non-small cell carcinoma of lung June 28, 2024 8:28pm Obstructive sleep apnea June 28 8:28pm Obstructive sleep apnea (adult) (pediatr ic) June 28, 2024 8:28pm Right upper lobe consolidation June 282023 8:28pm Type 2 diabetes mellitus June 28 8:28pm Urinary tract infection June 28 8:28pm COPD (chronic obstructive pulmonary dise ase) June 28, 2024 8:28pm Chronic diastolic heart failure August 26, 2024 9:11am COPD (chronic obstructive pulmonary dise ase) August 26, 2024 9:11am Constipation August 26, 2024 9: 11am Ileus August 26, 2024 9: 11am Methadone use August 26, 2024 9: 11am Obstructive sleep apnea August 26 9:11am PAF (paroxysmal atrial fibrillation) [facility] sola 2023 9:11am Pneumonia August 26, 2024 9: 11am Sepsis August 26, 2024 9: 11am Urinary tract infection August 26 9:11am Atrial fibrillation with controlled vent ricular rate August 26, 2024 9:11am Acute hypoxemic respiratory failure Ameena marks 2023 11:41am Acute UTI October 05, 2024 11:41am AMS (altered mental status) September 11:41am CHF (congestive heart failure) October 05, 2024 11:41am COPD (chronic obstructive pulmonary dise ase) October 05, 2024 11:41am DVT (deep venous thrombosis) October 052023 11:41am Ileus October 05, 2024 11:41am Lung cancer October 05, 2024 11:41am Lung mass October 05, 2024 11:41am Pneumonia October 05, 2024 11:41am Sacral decubitus ulcer October 05 11:41am Diabetes mellitus October 05, 2024 11:41am Acidosis, lactic October 27, 2024 3:09pm Acute and chronic respiratory failure wi th hypoxia October 27, 2024 3:09pm Acute respiratory distress October 3:09pm Acute UTI October 27, 2024 3:09pm Chronic anticoagulation October 27, 024 3:09pm Diabetes mellitus with hyperglycemia Dec ember 2023 3:09pm First degree AV block October 27 3:09pm Heart failure with preserved ejection fr action October 27, 2024 3:09pm Moderate protein-calorie malnutrition De cember 2023 3:09pm Multifocal pneumonia October 27, 2024 3:09pm Obstructive sleep apnea October 27 024 3:09pm Sepsis October 27, 2024 3:09pm Allergies, Adverse Reactions, Alerts Allergen Type Severity Reaction Last Updated Verified Status Comments Penicillins Allergy Unknown SHORTNESS OF BREATH October 05, 2024 8:35am Yes Active Patient received ceftriaxone in March 2023 Social History Smoking Status Status Start Date End Date Date of Observa tion Ex-smoker (finding) October 27, 2024 10:00pm Observation Status Observation Response Date of Response Do You Feel Safe in your Home? Yes D ecember 2023 10:00pm Has Lack of Trans Kept You F rom Med Appts or Getting Meds? No October 27, 2024 10:00pm In Past 12 Months, Were You Worried Your Food Would Run Out? Never True October 27, 2024 10:00pm What is Your Housing Situation Today? I Have Darío sing October 27, 2024 10:00pm Gender Identity (if Verbaliz ed by the Patient) July 23, 2023 7:46pm Sexual Orientation (if Verba lized by the Patient) July 23, 2023 7:46pm Are You Worried That in Next 2 Mo, You Won't Have Housing? No October 27, 2024 10:00pm Do You Have Trouble Paying Y our Heating Or Electricity Bill? No October 27, 2024 10:00pm Do You Have Trouble Paying F or Medicines? No October 27, 2024 10:00pm Are You Currently Unemployed and Looking for Work? No October 27, 2024 10:00pm Highest Level of Education Completed Decline to Answer October 27, 2024 10:00pm Do You Have Trouble With Chi ldcare/Care of a Family Member? No October 27, 2024 10:00pm alcohol intake never October 27 10:00pm Substance use type does not use October 10:00pm Patient Sex Male October 30, 024 2:30pm Assigned Sex Male December Family History Relationship Condition Age at Onset Recorded Date/T angie Not Specified Family history of ca rdiovascular disease Unknown Cerebrovascular accident (CVA) Unknown sibling Patient's sister is in good health Unknow n Hypertension Unknown Family history of he art disease in male family member before age 55 Unknown mother Family history of he art disease in male family member before age 55 Unknown Patient's mother is Unknown Family history of co ngestive heart failure 70 father Patient's father is Unknown Acute myocardial infarction 62 grandparent Depression Unknown Family history of arthritis Unknown Family history of ma lignant neoplasm of breast Unknown Family history of he art disease in male family member before age 55 Unknown Problems Active Problems Medical Problem Onset Date Status Comments SHAKIRA (acute kidney injury) Unknown Active Nonspecific abdominal pain Unknown Active History of tobacco abuse Unknown Active Chronic narcotic use Unknown Active Fat pad atrophy of foot Unknown Active Urinary tract infection Unknown Active Benign prostatic hyperplasia Unknown Active BPH (benign prostatic hyperplasia) Unknown Active Atrial fibrillation with controlled ventricular rate Unknown Active Low back pain due to bilater al sciatica Unknown Active Sacral decubitus ulcer Unknown Active Right upper lobe consolidation Unknown Active Prevention of chemotherapy-induced neutropenia Unknown Active COVID-19 Unknown Active Acute hypoxic on chronic hypercapnic respiratory failure Unknown Active Obstructive sleep apnea Unknown Active ANIA (obstructive sleep apnea) Unknown Active prison (current) use of insulin Unknown Active Other hammer toe(s) (acquire d), left foot Unknown Active Idiopathic chronic gout, unspecified site, without tophus (tophi) Unknown Active Unilateral recurrent inguina l hernia without obstruction or gangrene Unknown Active CAD in [place] artery Unknown Active Shortness of Breath Unknown Active Unspecified urinary incontinence Unknown Active Diabetes mellitus Unknown Active Morbid obesity Unknown Active Black stools Unknown Active DVT (deep venous thrombosis) Unknown Active Obstructive sleep apnea (sophia lt) (pediatric) Unknown Active Type 2 diabetes mellitus Unknown Active Type 2 diabetes mellitus Unknown Active Coronary artery disease 2019 Active Non- STEMI - left heart cath showed mild coronary artery disease with severe LV dysfunction EF 20% with possible underlying nonischemic cardiomyopathy, no PCI. Acute decompensated heart failure Unknown Active Heart failure with preserved ejection fraction Unknown Active At high risk for falls Unknown Active Dyslipidemia Unknown Active CHF (congestive heart failure) Unknown Active Chronic congestive heart failure Unknown Active Hx of peptic ulcer Unknown Active History of lung cancer Unknown Active Aortic valve stenosis Unknown Active Atrial fibrillation Unknown Active Chronic anticoagulation Unknown Active First degree AV block Unknown Active Depression Unknown Active Acute and chronic respirator y failure with hypoxia Unknown Active Fecal impaction Unknown Active Fibromyalgia Unknown Active BPH with urinary obstruction Unknown Active Gait disorder Unknown Active Hypothyroidism Unknown Active Ileus Unknown Active Leukocytosis Unknown Active Mixed hyperlipidemia Unknown Active Community acquired pneumonia Unknown Active Diastolic heart failure Unknown Active Chronic diastolic heart failure Unknown Active Diabetes mellitus with hyperglycemia Unknown Active Obesity (BMI 30.0-34.9) Unknown Active Non-small cell carcinoma of lung Unknown Active Status post chemo radiation. Diabetic polyneuropathy associated with type 2 diabetes mellitus Unknown Active Acute hypoxemic respiratory failure Unknown Active Renal insufficiency Unknown Active Respiratory failure Unknown Active Restless legs syndrome Unknown Active Tachycardia Unknown Active Thrombocytopenia Unknown Active Urinary retention Unknown Active Lung mass Unknown Active Hammer toes of both feet Unknown Active Acute on chronic respiratory failure with hypoxia and hypercapnia Unknown Active Mild recurrent major depression Unknown Active Recurrent major depressive disorder, in full remission Unknown Active Essential hypertension with goal blood pressure less than 130/80 Unknown Active Chronic bilateral low back pain Unknown Active Body mass index (bmi) 37.0-3 7.9, adult September 07, 2019 Active BMI greater than 40 Unknown Active Lung cancer Unknown Active Sepsis Unknown Active Foot pain, right Unknown Active Acute UTI Unknown Active PAF (paroxysmal atrial fibrillation) Unknown Active Altered mental status Unknown Active AMS (altered mental status) Unknown Active Chronic obstructive pulmonar y disease Unknown Active Chronic obstructive pulmonar y disease Unknown Active Chronic obstructive pulmonar y disease, unspecified Unknown Active COPD (chronic obstructive pulmonary disease) Unknown Active COPD (chronic obstructive pulmonary disease) Unknown Active COPD (chronic obstructive pulmonary disease) Unknown Active Multifocal pneumonia Unknown Active Methadone use Unknown Active Acute respiratory distress Unknown Active Right upper lobe pneumonia Unknown Active History of colon polyps Unknown Active Hx of colonic polyps Unknown Active Bilateral carpal tunnel syndrome Unknown Active Pneumonia Unknown Active Pneumonia Unknown Active Constipation Unknown Active Constipation Unknown Active Heart murmur previously undiagnosed Unknown Active Nausea and vomiting in adult Unknown Active Moderate protein-calorie malnutrition Unknown Active Dehydration Unknown Active Dehydration Unknown Active Acidosis, lactic Unknown Active Lactic acidosis Unknown Active Hypocalcemia Unknown Active Inactive/Resolved Problems Medical Problem Onset Date Status Comments Other obstructive and reflux uropathy Unknown Res olved Arthritis March 26, 2019 Resolved Chronic systolic heart failure Unknown Resolved Plantar wart of right foot Unknown Resolved Medications Medication Status Dose Units Route Directions Qty Days St art Date Stop Date End Date Instructions Adherence Ondansetron 8 mg Tablet,Disi ntegrating Active 8 MG PO Q8H as needed for Nausea 2021 11:00p m Ropinirole 1 mg tablet Active 1 MG PO BEDTIME 2019 12:56p m Albuterol Sulfate 90 mcg/actuati on HFA aerosol inhaler Active 1 PUFF INHALA TION Q4H as needed for Shortness Of Breath 2021 11:00p m Acetaminoph en 325 mg Tablet Active 650 MG PO Q6H as needed for Pain, Mild March 22, 2023 11:00p m Ascorbic Acid (Vitamin C) 500 mg Tablet Active 500 MG PO TWICE A DAY March 22, 2023 11:00p m Bisacodyl (Dulcolax (Bisacodyl) ) 5 mg Tablet,Erin yed Release (Dr/Ec) Active 10 MG PO TWICE A DAY March 22, 2023 11:00p m Lactulose 10 gram/15 mL Solution Active 20 GM PO THREE TIMES A DAY March 22, 2023 11:00p m Multivitami n-Min-Iron- Fa-Vit K (Adults Multivitami n) 18 mg iron-400 mcg-25 mcg Tablet Active 1 TABLET PO DAILY March 22, 2023 11:00p m Pro-Stat Sugar Free 15 gram liquid Active 30 ML PO DAILY March 22, 2023 11:00p m Methadone 5 mg tablet Active 5 MG PO TWICE A DAY March 23, 2023 12:42a m Bisacodyl 10 mg Suppository Active 10 MG RECTAL DAILY as needed for Constipatio n March 31, 2023 11:00p m Sucralfate (Carafate) 1 gram Tablet Active 1 GM PO THREE TIMES A DAY 2022 11:00p m Levothyroxi ne 25 mcg Tablet Active 25 MCG PO DAILY 2022 11:00p m Polyethylen e Glycol 3350 (Miralax) 17 gram powder in packet Active 17 GM PO DAILY as needed for Constipatio n 2022 10:55p m Trimethoben zamide (Tigan) 100 mg/mL solution Active 100 MG IM ONCE as needed for migraines 2022 10:55p m Levalbutero l Hcl 1.25 mg/3 mL solution for nebulizatio n Active 1.25 MG INHALA TION Q6H as needed for SOB 2022 10:55p m Pantoprazol e 40 mg tablet,erin yed release (DR/EC) Active 40 MG PO Every Morning 30 2022 11:00p m Bupropion Hcl 300 mg tablet extended release 24 hr Active 150 MG PO DAILY March 08, 2021 11:00p m Olanzapine 5 mg Tablet Active 5 MG PO TWICE A DAY June 27, 2024 11:00p m Fluoxetine 20 mg Capsule Active 20 MG PO DAILY June 27, 2024 11:00p m Potassium Chloride 20 mEq Tablet Extended Release Active 20 MEQ PO TWICE A DAY July 03, 2024 11:00p m Ipratropium [place] 0.02 % Solution Active 0.5 MG INHALA TION THREE TIMES A DAY July 04, 2024 12:09p m Symbicort Active 2 PUFF INHALA TION TWICE A DAY July 04, 2024 12:09p m Clopidogrel (Plavix) 75 mg Tablet Active 75 MG PO DAILY [facility] r 2023 11:00p m Diphenhydra mine Hcl (Benadryl Allergy) 25 mg Tablet Active 25 MG PO THREE TIMES A DAY as needed for allergies [facility] r 2023 11:00p m Mirtazapine (Remeron) 15 mg Tablet Active 15 [facility] 11:00p m Trospium 20 mg Tablet Active 20 MG PO TWICE A DAY [facility] 11:00p m administer on an empty stomach Apixaban (Eliquis) 5 mg Tablet Active 10 MG PO EVERY 12 HOURS 5 Novemb er 2023 12:00a m last dose 10/15 9 pm Apixaban (Eliquis) 5 mg Tablet Active 5 MG PO EVERY 12 HOURS 90 Novemb er 2023 12:00a m start taking 5 mg twice a day on 10/16 Bisacodyl (Laxative (Bisacodyl) ) 5 mg Tablet,Erin yed Release (Dr/Ec) Active 5 MG PO Every Morning 30 Novemb er 2023 12:00a m Guaifenesin (Mucus Relief Er) 600 mg Tablet Extended Release 12hr Active 1200 MG PO EVERY 12 HOURS 20 Decemb er 2023 12:00a m Azithromyci n (Zithromax) 250 mg Tablet Active 500 MG PO DAILY 8 Decemb er 2023 12:00a m Cefdinir 300 mg Capsule Active 300 MG PO EVERY 12 HOURS 8 Decemb er 2023 12:00a m Tamsulosin 0.4 mg capsule Active 0.4 MG PO BEDTIME February 25, 2022 11:00p m Gabapentin 100 mg capsule Active 100 MG PO THREE TIMES A DAY June 12, 2022 12:25p m Immunizations Immunization Event Date Not Given Reason Dose Number [employer] Super[employer] Lot Number Vaccine Information Statement (VIS) Detail Administration Location Influenza, split virus November 18, 2017 Influenza, adjuvanted September 06, 2021 Influenza, inactivated quadrivalent September 11, 2013 Influenza, inactivated quadrivalent November 18, 2017 SARS-COV-2 (COVID-19) Comirnaty May 04, 2022 SARS-COV-2 (COVID-19) Pfizer January 10, 2021 SARS-COV-2 (COVID-19) Pfizer January 31, 2021 SARS-COV-2 (COVID-19) Pfizer September 28, 2021 Medical Equipment Device Date Implanted Device Details GUERITA-CATH SMART PORT August 01, 2022 Procedures Procedure Date Performed Status Respiratory Culture July 03, 2024 cancelled Acid Fast Bacilli Culture July 03, 2024 canc elled Fungal Culture July 03, 2024 cancelled Urine Culture June 29, 2024 completed Flexible Bronchoscopy July 03, 2024 2:00pm c ompleted Blood Culture August 29, 2024 completed Blood Culture August 29, 2024 completed Urine Culture August 25, 2024 completed Blood Culture October 05, 2024 completed Blood Culture October 05, 2024 completed Urine Culture October 05, 2024 completed Blood Culture October 27, 2024 active Blood Culture October 27, 2024 active Urine Culture October 27, 2024 completed Relevant Diagnostic Tests and/or Laboratory Data Laboratory Results Test Date/Time Result Interpretation Reference Range Result Comment Performing Site White Blood Count July 03, 2024 4:21am 6.5 K/mm3 4.5-10.0 [facility] [id number] [address] [address] White Blood Count September 03, 2024 3:35am 6.8 K/mm3 4.5-10.0 [facility] [id number] [address] [address] White Blood Count October 13, 2024 8:39am 9.0 K/mm3 4.5-10.0 [facility] [id number] [address] [address] White Blood Count October 29, 2024 12:28pm 9.8 K/mm3 4.5-10.0 [facility] [id number] [address] [address] Red Blood Count July 03, 2024 4:21am 4.05 M/mm3 Below low normal 4.6-6.20 [facility] [id number] [address] [address] Red Blood Count September 03, 2024 3:35am 3.37 M/mm3 Below low normal 4.6-6.20 [facility] [id number] [address] [address] Red Blood Count October 13, 2024 8:39am 4.06 M/mm3 Below low normal 4.6-6.20 [facility] [id number] [address] [address] Red Blood Count October 29, 2024 12:28pm 3.27 M/mm3 Below low normal 4.6-6.20 [facility] [id number] [facility] [address] [address] Hemoglobin July 03, 2024 4:21am 11.8 g/dL Below low normal 14.0-18.0 [facility] [id number] [address] [address] Hemoglobin September 03, 2024 3:35am 10.3 g/dL Below low normal 14.0-18.0 [facility] [id number] [address] [address] Hemoglobin October 13, 2024 8:39am 12.5 g/dL Below low normal 14.0-18.0 [facility] [id number] [facility] [address] [address] Hemoglobin October 29, 2024 12:28pm 9.9 g/dL Below low normal 14.0-18.0 [facility] [id number] [address] [place] [address] Hematocrit July 03, 2024 4:21am 39.6 % Below low normal 42.0-52.0 [facility] [id number] [address] [place] [address] Hematocrit September 03, 2024 3:35am 33.7 % Below low normal 42.0-52.0 [facility] [id number] [address] [place] [address] Hematocrit October 13, 2024 8:39am 39.7 % Below low normal 42.0-52.0 [facility] [id number] [address] [place] [address] Hematocrit October 29, 2024 12:28pm 31.5 % Below low normal 42.0-52.0 [facility] [id number] [address] [place] [address] Mean Corpuscular Volume July 03, 2024 4:21am 97.8 fL 80-100 [facility] [id number] [address] [place] [address] Mean Corpuscular Volume September 03, 2024 3:35am 100.0 fL 80-100 [facility] [id number] [address] [place] [address] Mean Corpuscular Volume October 13, 2024 8:39am 97.8 fL 80-100 [facility] [id number] [address] [place] [address] Mean Corpuscular Volume October 29, 2024 12:28pm 96.3 fL 80-100 [facility] [id number] [address] [place] [address] Mean Corpuscular Hemoglobin July 03, 2024 4:21am 29.1 pg 26-34 [facility] [id number] [address] [place] [address] Mean Corpuscular Hemoglobin September 03, 2024 3:35am 30.6 pg 26-34 [facility] [id number] [address] [place] [address] Mean Corpuscular Hemoglobin October 13, 2024 8:39am 30.8 pg 26-34 [facility] [id number] [address] [place] [address] Mean Corpuscular Hemoglobin October 29, 2024 12:28pm 30.3 pg 26-34 [facility] [id number] [address] [place] [address] Mean Corpuscular Hemoglobin Concent July 03, 2024 4:21am 29.8 g/dL Below low normal 32-36 [facility] [id number] [address] [place] [address] 76672 Mean Corpuscular Hemoglobin Concent September 03, 2024 3:35am 30.6 g/dL Below low normal 32-36 [facility] [id number] [address] [place] [address] 59888 Mean Corpuscular Hemoglobin Concent October 13, 2024 8:39am 31.5 g/dL Below low normal 32-36 [facility] [id number] [address] [place] [address] 58896 Mean Corpuscular Hemoglobin Concent October 29, 2024 12:28pm 31.4 g/dL Below low normal 32-36 [facility] [id number] [address] [place] [address] 59605 Red Cell Distribution Width July 03, 2024 4:21am 15.9 % Above high normal 11.5-14.5 [facility] [id number] [address] [place] [address] 26500 Red Cell Distribution Width September 03, 2024 3:35am 13.2 % 11.5-14.5 [facility] [id number] [address] [place] [address] 95709 Red Cell Distribution Width October 13, 2024 8:39am 14.2 % 11.5-14.5 [facility] [id number] [address] [place] [address] 00133 Red Cell Distribution Width October 29, 2024 12:28pm 14.6 % Above high normal 11.5-14.5 [facility] [id number] [address] [place] [address] 67721 Platelet Count July 03, 2024 4:21am 130 k/mm3 Below low normal 150-375 [facility] [id number] [address] [place] [address] 37007 Platelet Count September 03, 2024 3:35am 167 k/mm3 150-375 [facility] [id number] [address] [address] Platelet Count October 13, 2024 8:39am 138 k/mm3 Below low normal 150-375 [facility] [id number] [address] 7[address]47 Platelet Count October 29, 2024 12:28pm 124 k/mm3 Below low normal 150-375 [facility] [id number] [address] 067[address] Percent Immature Platelet Fraction June 30, 2024 4:52am 3.4 % 0.9-11.2 - An elevated IPF indicates platelets are being produced.- High IPF levels are related to increased peripheral platelet destruction.- A low platelet and low IPF is consistent with a platelet production disorder. [facility] [id number] [address] [place] [address] 64957 Percent Immature Platelet Fraction August 27, 2024 4:33am 3.2 % 0.9-11.2 - An elevated IPF indicates platelets are being produced.- High IPF levels are related to increased peripheral platelet destruction.- A low platelet and low IPF is consistent with a platelet production disorder. [facility] [id number] [address] [place] [address] 48950 Percent Immature Platelet Fraction October 13, 2024 8:39am 5.1 % 0.9-11.2 - An elevated IPF indicates platelets are being produced.- High IPF levels are related to increased peripheral platelet destruction.- A low platelet and low IPF is consistent with a platelet production disorder. [facility] [id number] [address] [address] Mean Platelet Volume July 03, 2024 4:21am 10.3 fL 7.4-10.4 [facility] [id number] [address] 7[address] Mean Platelet Volume September 03, 2024 3:35am 9.2 fL 7.4-10.4 [facility] [id number] [address] [address] Mean Platelet Volume October 13, 2024 8:39am 11.2 fL Above high normal 7.4-10.4 [facility] [id number] [address] 760[address] Mean Platelet Volume October 29, 2024 12:28pm 10.1 fL 7.4-10.4 [facility] [id number] [address] [place] [address] 62745 Nucleated Red Blood Cells % July 02, 2024 4:20am 0.0 % 0.0-0.2 [facility] [id number] [address] 33867 Nucleated Red Blood Cells % September 03, 2024 3:35am 0.0 % 0.0-0.2 [facility] [id number] [address] 90081 Nucleated Red Blood Cells % October 12, 2024 9:19am 0.0 % 0.0-0.2 [facility] [id number] [address] [address] Nucleated Red Blood Cells % October 29, 2024 12:28pm 0.0 % 0.0-0.2 [facility] [id number] [address] [place] [address] 24765 Immature Granulocyte % (Auto) July 02, 2024 4:20am 0.3 % 0-0.5 [facility] [id number] [address] [place] [address] 42437 Immature Granulocyte % (Auto) September 03, 2024 3:35am 0.6 % Above high normal 0-0.5 [facility] [id number] [address] [place] [address] 56420 Immature Granulocyte % (Auto) October 12, 2024 9:19am 1.5 % Above high normal 0-0.5 [facility] [id number] [address] [place] [address] 58818 Immature Granulocyte % (Auto) October 29, 2024 12:28pm 0.7 % Above high normal 0-0.5 [facility] [id number] [address] [place] [address] 35189 Neutrophils (%) (Auto) July 02, 2024 4:20am 76.3 % Above high normal 45.5-73.1 [facility] [id number] [address] [place] [address] 41730 Neutrophils (%) (Auto) September 03, 2024 3:35am 69.5 % 45.5-73.1 [facility] [id number] [address] [place] [address] 16566 Neutrophils (%) (Auto) October 12, 2024 9:19am 69.4 % 45.5-73.1 [facility] [id number] [address] [place] [address] 28327 Neutrophils (%) (Auto) October 29, 2024 12:28pm 83.7 % Above high normal 45.5-73.1 [facility] [id number] [address] [place] [address] 24240 Lymphocytes (%) (Auto) July 02, 2024 4:20am 10.7 % Below low normal 18.3-44.2 [facility] [id number] [address] [place] [address] 93127 Lymphocytes (%) (Auto) September 03, 2024 3:35am 13.8 % Below low normal 18.3-44.2 [facility] [id number] [address] [place] [address] 35860 Lymphocytes (%) (Auto) October 12, 2024 9:19am 13.9 % Below low normal 18.3-44.2 [facility] [id number] [address] [place] [address] 97435 Lymphocytes (%) (Auto) October 29, 2024 12:28pm 6.7 % Below low normal 18.3-44.2 [facility] [id number] [address] [place] [address] 50390 Monocytes (%) (Auto) July 02, 2024 4:20am 11.4 % Above high normal 2.6-8.5 [facility] [id number] [address] [place] [address] 17145 Monocytes (%) (Auto) September 03, 2024 3:35am 8.4 % 2.6-8.5 [facility] [id number] [address] [place] [address] 07770 Monocytes (%) (Auto) October 12, 2024 9:19am 10.5 % Above high normal 2.6-8.5 [facility] [id number] [address] [place] [address] 89070 Monocytes (%) (Auto) October 29, 2024 12:28pm 7.0 % 2.6-8.5 [facility] [id number] [address] [place] [address] 90084 Eosinophils (%) (Auto) July 02, 2024 4:20am 0.8 % 0-4.4 [facility] [id number] [address] [place] [address] 95217 Eosinophils (%) (Auto) September 03, 2024 3:35am 7.0 % Above high normal 0-4.4 [facility] [id number] [address] [place] [address] 61086 Eosinophils (%) (Auto) October 12, 2024 9:19am 4.6 % Above high normal 0-4.4 [facility] [id number] [address] [place] [address] 53612 Eosinophils (%) (Auto) October 29, 2024 12:28pm 1.7 % 0-4.4 [facility] [id number] [address] [place] [address] 00517 Basophils (%) (Auto) July 02, 2024 4:20am 0.5 % 0.2-1.2 [facility] [id number] [address] [place] [address] 44083 Basophils (%) (Auto) September 03, 2024 3:35am 0.7 % 0.2-1.2 [facility] [id number] [address] [place] [address] 05588 Basophils (%) (Auto) October 12, 2024 9:19am 0.1 % Below low normal 0.2-1.2 [facility] [id number] [address] [place] [address] 60134 Basophils (%) (Auto) October 29, 2024 12:28pm 0.2 % 0.2-1.2 [facility] [id number] [address] [place] [address] 74711 Nucleated RBC Absolute Count (auto) July 02, 2024 4:20am 0.000 K/mm3 0.0-0.012 [facility] [id number] [address] [place] [address] 74691 Nucleated RBC Absolute Count (auto) September 03, 2024 3:35am 0.000 K/mm3 0.0-0.012 [facility] [id number] [address] [place] [address] 97001 Nucleated RBC Absolute Count (auto) October 12, 2024 9:19am 0.000 K/mm3 0.0-0.012 [facility] [id number] [address] [place] [address] 12506 Nucleated RBC Absolute Count (auto) October 29, 2024 12:28pm 0.000 K/mm3 0.0-0.012 [facility] [id number] [address] [place] [address] 56684 Absolute Immature Granulocyte (auto July 02, 2024 4:20am 0.02 K/mm3 0.00-0.031 [facility] [id number] [address] [place] [address] 82568 Absolute Immature Granulocyte (auto September 03, 2024 3:35am 0.04 K/mm3 Above high normal 0.00-0.031 [facility] [id number] [address] [place] [address] 56937 Absolute Immature Granulocyte (auto October 12, 2024 9:19am 0.14 K/mm3 Above high normal 0.00-0.031 [facility] [id number] [address] [place] [address] 84364 Absolute Immature Granulocyte (auto October 29, 2024 12:28pm 0.07 K/mm3 Above high normal 0.00-0.031 [facility] [id number] [address] [place] [address] 22691 Absolute Neutrophils (auto) July 02, 2024 4:20am 5.6 K/mm3 1.3-6.7 [facility] [id number] [address] [place] [address] 27811 Absolute Neutrophils (auto) September 03, 2024 3:35am 4.7 K/mm3 1.3-6.7 [facility] [id number] [address] [place] [address] 53671 Absolute Neutrophils (auto) October 12, 2024 9:19am 6.6 K/mm3 1.3-6.7 [facility] [id number] [address] [place] [address] 91685 Absolute Neutrophils (auto) October 29, 2024 12:28pm 8.2 K/mm3 Above high normal 1.3-6.7 [facility] [id number] [address] [place] [address] 26460 Lymphocytes # (Auto) July 02, 2024 4:20am 0.78 K/mm3 Below low normal 0.9-3.2 [facility] [id number] [address] [place] [address] 95306 Lymphocytes # (Auto) September 03, 2024 3:35am 0.94 K/mm3 0.9-3.2 [facility] [id number] [address] [place] [address] 36941 Lymphocytes # (Auto) October 12, 2024 9:19am 1.32 K/mm3 0.9-3.2 [facility] [id number] [facility] [address] [place] [address] 96381 Lymphocytes # (Auto) October 29, 2024 12:28pm 0.66 K/mm3 Below low normal 0.9-3.2 [facility] [id number] [facility] [address] [place] [address] 05104 Monocytes # (Auto) July 02, 2024 4:20am 0.8 K/mm3 Above high normal 0.1-0.6 [facility] [id number] [facility] [address] [place] [address] 31588 Monocytes # (Auto) September 03, 2024 3:35am 0.6 K/mm3 0.1-0.6 [facility] [id number] [facility] [address] [place] [address] 37708 Monocytes # (Auto) October 12, 2024 9:19am 1.0 K/mm3 Above high normal 0.1-0.6 [facility] [id number] [facility] [address] [place] [address] 68024 Monocytes # (Auto) October 29, 2024 12:28pm 0.7 K/mm3 Above high normal 0.1-0.6 [facility] [id number] [facility] [address] [address] Eosinophils # (Auto) July 02, 2024 4:20am 0.1 K/mm3 0-0.3 [facility] [id number] [facility] [address] 8[address] Eosinophils # (Auto) September 03, 2024 3:35am 0.5 K/mm3 Above high normal 0-0.3 [facility] [id number] [facility] [address] [place] [address] 14246 Eosinophils # (Auto) October 12, 2024 9:19am 0.4 K/mm3 Above high normal 0-0.3 [facility] [id number] [facility] [address] 8[address] Eosinophils # (Auto) October 29, 2024 12:28pm 0.2 K/mm3 0-0.3 [facility] [id number] [facility] [address] [place] [address] 81400 Basophils # (Auto) July 02, 2024 4:20am 0.0 K/mm3 0.0-0.1 [facility] [id number] [address] [address]27 Basophils # (Auto) September 03, 2024 3:35am 0.1 K/mm3 0.0-0.1 [facility] [id number] [address] [address] Basophils # (Auto) October 12, 2024 9:19am 0.0 K/mm3 0.0-0.1 [facility] [id number] [address] [place] [address] 49740 Basophils # (Auto) October 29, 2024 12:28pm 0.0 K/mm3 0.0-0.1 [facility] [id number] [address] [place] [address] 06502 Differential Total Cells Counted October 07, 2024 3:55am 100 [facility] [id number] [facility] [address] 82873 Neutrophils % (Manual) October 07, 2024 3:55am 83 % Above high normal 46-73 [facility] [id number] [address] [place] [address] 11852 Band Neutrophils % October 07, 2024 3:55am 10 % Above high normal 0-6 [facility] [id number] [facility] [address] 47744 Lymphocytes % (Manual) October 07, 2024 3:55am 4 % Below low normal 18-44 [facility] [id number] [facility] [address] 37034 Monocytes % (Manual) October 07, 2024 3:55am 3 % 3-9 [facility] [id number] [facility] [address] 24914 Absolute Neutrophils (Manual) October 07, 2024 3:55am 9.57 K/mm3 Above high normal 1.3-6.7 [facility] [id number] [address] 51775 Absolute Lymphocytes (Manual) October 07, 2024 3:55am 0.41 K/mm3 Below low normal 1.1-4.5 [facility] [id number] [address] 37331 Absolute Monocytes (Manual) October 07, 2024 3:55am 0.30 K/mm3 0.1-0.90 [facility] [id number] [facility] [address] 98404 Platelet Estimate July 01, 2024 4:31am Slightly decreased Adequate [facility] [id number] [address] 83025 Platelet Estimate October 07, 2024 3:55am Slightly decreased Adequate [facility] [id number] [address] [place] [address] 49401 Hypochromasia June 28, 2024 5:21pm 1+ [facility] [id number] [address] [place] [address] 92356 Anisocytosis July 01, 2024 4:31am 1+ [facility] [id number] [address] [place] [address] 58601 Schistocytes July 01, 2024 4:31am None seen [facility] [id number] [address] [place] [address] 11178 Schistocytes October 07, 2024 3:55am None seen [facility] [id number] [address] [place] [address] 90382 Prothrombin Time October 05, 2024 6:12am 15.6 s Above high normal 11.1-14.7 [facility] [id number] [address] [place] [address] 81299 Prothrombin Time October 27, 2024 6:24am 15.8 s Above high normal 11.1-14.7 [facility] [id number] [address] [place] [address] 98929 Prothromb Time International Ratio October 05, 2024 6:12am 1.2 INR Indication----- ---- --------0.9 - 1.1 Patients not on anticoagulant therapy.2.0 - 3.0 Routine therapy.2.5 - 3.5 Recurrent myocardial infarction or mechanical prosthetic valves. [facility] [id number] [facility] [address] [address]90 Prothromb Time International Ratio October 27, 2024 6:24am 1.2 INR Indication----- ---- --------0.9 - 1.1 Patients not on anticoagulant therapy.2.0 - 3.0 Routine therapy.2.5 - 3.5 Recurrent myocardial infarction or mechanical prosthetic valves. [facility] [id number] [address] 58162 Activated Partial Thromboplast Time October 05, 2024 6:12am 30.1 s 22.3-36.8 [facility] [id number] [facility] [address] 42944 Activated Partial Thromboplast Time October 27, 2024 6:24am 31.3 s 22.3-36.8 [facility] [id number] [address] [place] [address] 22048 D-Dimer October 05, 2024 3:42pm 0.93 ug/mL Above high normal <0.48 Fibrinogen Equivalent UnitsLevels below 0.48 ug/ml indicate Negative D-dimer results. [facility] [id number] [address] [place] [address] 19206 D-Dimer October 27, 2024 6:24am 2.78 ug/mL Above high normal <0.48 Fibrinogen Equivalent UnitsLevels below 0.48 ug/ml indicate Negative D-dimer results. [facility] [id number] [facility] [address] [address] Urine Color June 29, 2024 1:30am Dark yellow Yellow [facility] [id number] [address] [place] [address] 51092 Urine Color August 25, 2024 4:31pm Yellow Yellow [facility] [id number] [address] [place] [address] 98203 Urine Color October 05, 2024 6:35am Yellow Yellow [facility] [id number] [address] [place] [address] 41583 Urine Color October 27, 2024 8:20am Dark yellow Yellow [facility] [id number] [address] [place] [address] 14720 Urine Appearance June 29, 2024 1:30am Cloudy Above high normal Clear [facility] [id number] [address] [place] [address] 66847 Urine Appearance August 25, 2024 4:31pm Turbid Above high normal Clear [facility] [id number] [address] [place] [address] 28843 Urine Appearance October 05, 2024 6:35am Cloudy Above high normal Clear [facility] [id number] [address] [place] [address] 45150 Urine Appearance October 27, 2024 8:20am Clear Clear [facility] [id number] [address] 8[address] Urine pH June 29, 2024 1:30am 5.0 5.0-9.0 [facility] [id number] [address] 25847 Urine pH August 25, 2024 4:31pm 8.0 5.0-9.0 [facility] [id number] [address] 98553 Urine pH October 05, 2024 6:35am 5.0 5.0-9.0 [facility] [id number] [address] 98370 Urine pH October 27, 2024 8:20am 5.0 5.0-9.0 [facility] [id number] [address] 7[address]10 Urine Specific [place] June 29, 2024 1:30am 1.021 1.001-1.03 5 [facility] [id number] [address] 66123 Urine Specific [place] August 25, 2024 4:31pm 1.019 1.001-1.03 5 [facility] [id number] [address] 91321 Urine Specific [place] October 05, 2024 6:35am 1.021 1.001-1.[address] [place] [address] Laboratory [id number] [address] 84381 Urine Specific [place] October 27, 2024 8:20am 1.033 1.001-1.[address] [place] [address] Laboratory [id number] [address] 79384 Urine Protein June 29, 2024 1:30am Trace mg/dL Negative [facility] [id number] [address] 34245 Urine Protein August 25, 2024 4:31pm 2+ mg/dL Above high normal Negative [facility] [id number] [address] 81611 Urine Protein October 05, 2024 6:35am 2+ mg/dL Above high normal Negative [facility] [id number] [address] 92207 Urine Protein October 27, 2024 8:20am 1+ mg/dL Above high normal Negative [facility] [id number] [facility] [address] 04814 Urine Glucose (UA) June 29, 2024 1:30am Negative mg/dL Negative [facility] [id number] [address] [place] [address] 39109 Urine Glucose (UA) August 25, 2024 4:31pm Negative mg/dL Negative [facility] [id number] [address] [place] [address] 84075 Urine Glucose (UA) October 05, 2024 6:35am Negative mg/dL Negative [facility] [id number] [address] [place] [address] 27950 Urine Glucose (UA) October 27, 2024 8:20am Negative mg/dL Negative [facility] [id number] [address] [place] [address] 21747 Urine Ketones June 29, 2024 1:30am Negative mg/dL Negative [facility] [id number] [address] [place] [address] 71539 Urine Ketones August 25, 2024 4:31pm 2+ mg/dL Above high normal Negative [facility] [id number] [address] [place] [address] 61359 Urine Ketones October 05, 2024 6:35am 3+ mg/dL Above high normal Negative [facility] [id number] [address] [place] [address] 74066 Urine Ketones October 27, 2024 8:20am 1+ mg/dL Above high normal Negative [facility] [id number] [address] [place] [address] 59592 Urine Blood (Manual) June 29, 2024 1:30am 2+ Above high normal Negative [facility] [id number] [address] [place] [address] 25392 Urine Blood (Manual) August 25, 2024 4:31pm 1+ Above high normal Negative [facility] [id number] [address] [place] [address] 37202 Urine Blood (Manual) October 05, 2024 6:35am 2+ Above high normal Negative [facility] [id number] [address] [place] [address] 39966 Urine Blood (Manual) October 27, 2024 8:20am Negative Negative [facility] [id number] [address] [place] [address] 73154 Urine Nitrate June 29, 2024 1:30am Positive Above high normal Negative [facility] [id number] [address] [place] [address] 11800 Urine Nitrate August 25, 2024 4:31pm Positive Above high normal Negative [facility] [id number] [address] [place] [address] 09202 Urine Nitrate October 05, 2024 6:35am Positive Above high normal Negative [facility] [id number] [address] [place] [address] 80522 Urine Nitrate October 27, 2024 8:20am Negative Negative [facility] [id number] [address] [facility] [address] [place] [address] 35823 Urine Bilirubin June 29, 2024 1:30am 1+ Above high normal Negative [facility] [id number] [address] [place] [address] 38256 Urine Bilirubin August 25, 2024 4:31pm Negative Negative [facility] [id number] [address] 27192 Urine Bilirubin October 05, 2024 6:35am Negative Negative [facility] [id number] [address] 87503 Urine Bilirubin October 27, 2024 8:20am Negative Negative [facility] [id number] [address] [place] [address] 99712 Urine Urobilinogen June 29, 2024 1:30am 1.0 mg/dL <2.0 [facility] [id number] [address] 7[address] Urine Urobilinogen August 25, 2024 4:31pm 1.0 mg/dL <2.0 [facility] [id number] [address] 10323 Urine Urobilinogen October 05, 2024 6:35am 1.0 mg/dL <2.0 [facility] [id number] [address] [place] [address] 80210 Urine Urobilinogen October 27, 2024 8:20am 1.0 mg/dL <2.0 [facility] [id number] [address] 46[address] Urine Leukocyte Esterase (Reflex) June 29, 2024 1:30am 2+ NICKY/UL Above high normal Negative [facility] [id number] [address] [place] [address] 27476 Urine Leukocyte Esterase (Reflex) August 25, 2024 4:31pm 3+ NICKY/UL Above high normal Negative [facility] [id number] [address] [place] [address] 9[address]29 Urine Leukocyte Esterase (Reflex) October 05, 2024 6:35am 2+ NICKY/UL Above high normal Negative [facility] [id number] [facility] [address] [place] [address] 25884 Urine Leukocyte Esterase (Reflex) October 27, 2024 8:20am 1+ NICKY/UL Above high normal Negative [facility] [id number] [facility] [address] [place] [address] 73978 Urine RBC June 29, 2024 1:30am 11-20 [HPF] Above high normal 0-2 [facility] [id number] [facility] [address] [place] [address] 42861 Urine RBC August 25, 2024 4:31pm 11-20 [HPF] Above high normal 0-2 [facility] [id number] [facility] [address] [place] [address] 88652 Urine RBC October 05, 2024 6:35am 21-50 [HPF] Above high normal 0-2 [facility] [id number] [facility] [address] [address] Urine RBC October 27, 2024 8:20am 0-2 [HPF] 0-2 [facility] [id number] [facility] [address] [place] [address] 07011 Urine WBC June 29, 2024 1:30am >100 [HPF] Above high normal 0-3 [facility] [id number] [facility] [address] [address] Urine WBC August 25, 2024 4:31pm >100 [HPF] Above high normal 0-3 [facility] [id number] [facility] [address] [address] Urine WBC October 05, 2024 6:35am >100 [HPF] Above high normal 0-3 [facility] [id number] [facility] [address] [address] Urine WBC October 27, 2024 8:20am 11-20 [HPF] Above high normal 0-3 [facility] [id number] [facility] [address] [address] Urine Squamous Epithelial Cells June 29, 2024 1:30am None seen [HPF] [facility] [id number] [facility] [address] [address] Urine Squamous Epithelial Cells August 25, 2024 4:31pm None seen [HPF] [facility] [id number] [facility] [address] [address] Urine Squamous Epithelial Cells October 05, 2024 6:35am None seen [HPF] [facility] [id number] [address] [address] Urine Squamous Epithelial Cells October 27, 2024 8:20am Few [HPF] [facility] [id number] [address] [address] Urine Calcium Oxalate Crystals October 27, 2024 8:20am Present [HPF] None [facility] [id number] [address] [address] Urine Triple Phosphate Crystals August 25, 2024 4:31pm Present [HPF] Above high normal None [facility] [id number] [address] [address] Urine Bacteria June 29, 2024 1:30am 1+ [HPF] Above high normal [facility] [id number] [address] [address] Urine Bacteria August 25, 2024 4:31pm 4+ [HPF] [facility] [id number] [address] [address] Urine Bacteria October 05, 2024 6:35am 3+ [HPF] Above high normal [facility] [id number] [address] [address] Urine Bacteria October 27, 2024 8:20am None seen [HPF] [facility] [id number] [facility] [address] [address] Ur Random Chloride/Crea tinine Ratio October 10, 2024 7:23pm 72 23-275 Result Units: mmol/g creat [facility]rine Random Chloride October 10, 2024 7:23pm 56 mmol/L 32-290 [facility]rine Random Creatinine October 10, 2024 7:23pm 78 mg/dL 20-320 THIS TEST WAS PERFORMED AT:[employer] [id number] [place] [address]RVLE- LIEU VO,MD [facility] Sodium Level July 03, 2024 4:21am 138 mmol/L 137-145 [facility] [id number] [address] [address] Sodium Level September 03, 2024 3:35am 138 mmol/L 137-145 [facility] [id number] [address] [address] Sodium Level October 13, 2024 8:39am 138 mmol/L 137-145 [facility] [id number] [facility] [address] [place] [address]64 Sodium Level October 29, 2024 12:28pm 136 mmol/L Below low normal 137-145 [facility] [id number] [address] [address] Potassium Level July 03, 2024 4:21am 3.9 mmol/L 3.4-5.0 [facility] [id number] [address] [address] Potassium Level September 03, 2024 3:35am 3.8 mmol/L 3.4-5.0 [facility] [id number] [address] [place] [address] Potassium Level October 13, 2024 8:39am 4.4 mmol/L 3.4-5.0 [facility] [id number] [address] [address] Potassium Level October 29, 2024 12:28pm 3.5 mmol/L 3.4-5.0 [facility] [id number] [address] [address] Chloride Level July 03, 2024 4:21am 95 mmol/L Below low normal 98-107 [facility] [id number] [address] [address] Chloride Level September 03, 2024 3:35am 94 mmol/L Below low normal 98-107 [facility] [id number] [address] [address] Chloride Level October 13, 2024 8:39am 96 mmol/L Below low normal 98-107 [facility] [id number] [address] [address] Chloride Level October 29, 2024 12:28pm 105 mmol/L 98-107 [facility] [id number] [address] [address] Carbon Dioxide Level July 03, 2024 4:21am > 40 mmol/L Above high normal 22-30 [facility] [id number] [address] [address] Carbon Dioxide Level September 03, 2024 3:35am > 40 mmol/L Above high normal 22-30 [facility] [id number] [address] [address] Carbon Dioxide Level October 13, 2024 8:39am > 40 mmol/L Above high normal 22-30 [facility] [id number] [address] [address] Carbon Dioxide Level October 29, 2024 12:28pm 32 mmol/L Above high normal -30 [facility] [id number] [address] [place] [address] Anion Gap July 03, 2024 4:21am See comment 4-12 Unable to calculate anion gap result. Sodium, Potassium, or Carbon Dioxide result is outside of the analyzer's reportable limits. [facility] [id number] [address] [place] [address] Anion Gap September 03, 2024 3:35am See comment 4-12 Unable to calculate anion gap result. Sodium, Potassium, or Carbon Dioxide result is outside of the analyzer's reportable limits. [facility] [id number] [address] [place] [address]37 Anion Gap October 13, 2024 8:39am See comment 4-12 Unable to calculate anion gap result. Sodium, Potassium, or Carbon Dioxide result is outside of the analyzer's reportable limits. [facility] [id number] [address] [place] [address] 38659 Anion Gap October 29, 2024 12:28pm -1 mmol/L Below low normal 02-27 [facility] [id number] [address] [place] [address] 78532 Blood Urea Nitrogen July 03, 2024 4:21am 29 mg/dL Above high normal -20 [facility] [id number] [address] [place] [address] 28543 Blood Urea Nitrogen September 03, 2024 3:35am 21 mg/dL Above high normal 9-20 [facility] [id number] [address] [place] [address] 22163 Blood Urea Nitrogen October 13, 2024 8:39am 40 mg/dL Above high normal 9-20 [facility] [id number] [address] [place] [address]10 Blood Urea Nitrogen October 29, 2024 12:28pm 21 mg/dL Above high normal 9-20 [facility] [id number] [address] [place] [address] 9[address]35 Creatinine July 03, 2024 4:21am 0.90 mg/dL 0.7-1.3 [facility] [id number] [address] [place] [address] 39398 Creatinine September 03, 2024 3:35am 1.00 mg/dL 0.7-1.3 [facility] [id number] [address] [place] [address] 07505 Creatinine October 13, 2024 8:39am 0.80 mg/dL 0.7-1.3 [facility] [id number] [address] [place] [address] Creatinine October 29, 2024 12:28pm 0.80 mg/dL 0.7-1.3 [facility] [id number] [address] [place] [address] 99056 Estimat Glomerular Filtration Rate July 03, 2024 4:21am > 60 >59 > OR = 60 ml/min/1.73 square metersThe MDRD formula used to calculate the eGFR result has not been validated in patients > 70 years of age. [facility] [id number] [address] [place] [address] 48348 Estimat Glomerular Filtration Rate September 03, 2024 3:35am > 60 >59 > OR = 60 ml/min/1.73 square metersThe MDRD formula used to calculate the eGFR result has not been validated in patients > 70 years of age. [facility] [id number] [address] [place] [address] 80795 Estimat Glomerular Filtration Rate October 13, 2024 8:39am > 60 >59 > OR = 60 ml/min/1.73 square metersThe MDRD formula used to calculate the eGFR result has not been validated in patients > 70 years of age. [facility] [id number] [address] [place] [address] 55455 Estimat Glomerular Filtration Rate October 29, 2024 12:28pm > 60 >59 > OR = 60 ml/min/1.73 square metersThe MDRD formula used to calculate the eGFR result has not been validated in patients > 70 years of age. [facility] [id number] [address] [place] [address] 11899 Estimated Creatinine Clearance Calc July 03, 2024 4:21am 57 mL/min For use in prescription drug dose determination only. Reference ranges have not been establishe for this calculation. [facility] [id number] [address] [place] [address] 9[address]39 Estimated Creatinine Clearance Calc September 03, 2024 3:35am 52 mL/min For use in prescription drug dose determination only. Reference ranges have not been establishe for this calculation. [facility] [id number] [facility] [address] [address] Estimated Creatinine Clearance Calc October 13, 2024 8:39am 66 mL/min For use in prescription drug dose determination only. Reference ranges have not been establishe for this calculation. [facility] [id number] [address] [place] [address] 78620 Estimated Creatinine Clearance Calc October 29, 2024 12:28pm 66 mL/min For use in prescription drug dose determination only. Reference ranges have not been establishe for this calculation. [facility] [id number] [address] [place] [address] 16452 Glucose Level July 03, 2024 4:21am 103 mg/dL 65-110 [facility] [id number] [address] [place] [address] 06651 Glucose Level September 03, 2024 3:35am 95 mg/dL 65-110 [facility] [id number] [address] [place] [address] 36266 Glucose Level October 13, 2024 8:39am 70 mg/dL 65-110 [facility] [id number] [address] [place] [address] 21026 Glucose Level October 29, 2024 12:28pm 131 mg/dL Above high normal 65-110 [facility] [id number] [address] [place] [address] 83569 POC Capillary Glucose July 03, 2024 2:07pm 114 mg/dL Above high normal 65-105 [facility] POC Capillary Glucose September 02, 2024 10:28am 169 mg/dL Above high normal 65-105 [facility] POC Capillary Glucose October 13, 2024 12:01pm 98 mg/dL 65-105 [facility] POC Capillary Glucose October 30, 2024 12:12pm 110 mg/dL Above high normal 65-105 [facility] POC Hemoglobin A1c October 05, 2024 3:42pm 4.5 % <5.7 <5.7: Decreased risk of diabetes 5.7-6.0: Increased risk of diabetes 6.1-6.4: Higher risk of diabetes> or = 6.5: Consistent with diabetes [facility] [id number] [facility] [address] [address] Lactic Acid Level August 29, 2024 9:23pm 0.9 mmol/L 0.7-2.0 [facility] [id number] [address] [place] [address] 86817 Lactic Acid Level October 05, 2024 6:12am 1.2 mmol/L 0.7-2.0 [facility] [id number] [address] [place] [address] 06883 Lactic Acid Level October 28, 2024 4:43pm 0.9 mmol/L 0.7-2.0 [facility] [id number] [address] [place] [address] 30425 Calcium Level July 03, 2024 4:21am 8.7 mg/dL 8.4-10.2 [facility] [id number] [address] [place] [address] 99764 Calcium Level September 03, 2024 3:35am 9.0 mg/dL 8.4-10.2 [facility] [id number] [address] [place] [address] 12029 Calcium Level October 13, 2024 8:39am 8.9 mg/dL 8.4-10.2 [facility] [id number] [address] [place] [address] 67996 Calcium Level October 29, 2024 12:28pm 7.8 mg/dL Below low normal 8.4-10.2 [facility] [id number] [address] [place] [address] 55754 Phosphorus Level October 11, 2024 6:06am 2.9 mg/dL 2.5-4.5 [facility] [id number] [address] [place] [address] 84084 Magnesium Level July 03, 2024 4:21am 1.9 mg/dL 1.6-2.3 [facility] [id number] [address] [place] [address] 17798 Magnesium Level August 28, 2024 3:52am 1.8 mg/dL 1.6-2.3 [facility] [id number] [address] [place] [address] 71783 Magnesium Level October 13, 2024 8:39am 2.4 mg/dL Above high normal 1.6-2.3 [facility] [id number] [address] [place] [address] 37919 Magnesium Level October 28, 2024 4:26am 1.8 mg/dL 1.6-2.3 [facility] [id number] [address] [address] Total Bilirubin July 01, 2024 4:31am 0.2 mg/dL 0.2-1.3 [facility] [id number] [address] [address] Total Bilirubin September 03, 2024 3:35am 0.3 mg/dL 0.2-1.3 [facility] [id number] [address] [place] [address] 52569 Total Bilirubin October 12, 2024 9:19am 0.6 mg/dL 0.2-1.3 [facility] [id number] [address] [place] [address] 46044 Total Bilirubin October 29, 2024 12:28pm 0.3 mg/dL 0.2-1.3 [facility] [id number] [address] [place] [address] 87500 Aspartate Amino Transf (AST/SGOT) July 01, 2024 4:31am 15 U/L Below low normal [address] [place] [address] Laboratory [id number] [address] [place] [address] 43333 Aspartate Amino Transf (AST/SGOT) September 03, 2024 3:35am 24 U/L [address] [place] [address] Laboratory [id number] [address] [place] [address]240 Aspartate Amino Transf (AST/SGOT) October 12, 2024 9:19am 14 U/L Below low normal [address] [place] [address] Laboratory [id number] [address] [place] [address] 53739 Aspartate Amino Transf (AST/SGOT) October 29, 2024 12:28pm 12 U/L Below low normal [address] [place] [address] Laboratory [id number] [address] [place] [address] 61393 Alanine Aminotransfer ase (ALT/SGPT) July 01, 2024 4:31am 12 U/L 6-50 [facility] [id number] [address] [place] [address] 93054 Alanine Aminotransfer ase (ALT/SGPT) September 03, 2024 3:35am 10 U/L 6-[address] [place] [address] Laboratory [id number] [address] [place] [address] 6[address]75 Alanine Aminotransfer ase (ALT/SGPT) October 12, 2024 9:19am 11 U/L 6-50 [facility] [id number] [address] [place] [address] 93764 Alanine Aminotransfer ase (ALT/SGPT) October 29, 2024 12:28pm 8 U/L [facility] [id number] [address] [place] [address] 76676 Ammonia October 07, 2024 8:22am 32 umol/L Above high normal 9-30 [facility] [id number] [address] [place] [address] 85656 Troponin I October 05, 2024 1:19pm 0.034 ng/mL 0.000-0.03 4 Delta: 0.023 on 10/05/24-0903Ac [place] myocardial injury is indicated by:1. A troponin value of >0.034 ng/mL and/or2. A 20% change in troponin value.Specimens with biotin concentrations up to 2.5 ng/mL demonstrate a less than or equal to 10% change in results. Biotin concentrations greater than this falsely decrease Troponin results for patient samples. [facility] [id number] [address] [place] [address] 16607 Troponin I October 27, 2024 6:28am < 0.012 ng/mL 0.000-0.03 4 Acute myocardial injury is indicated by:1. A troponin value of >0.034 ng/mL and/or2. A 20% change in troponin value.Specimens with biotin concentrations up to 2.5 ng/mL demonstrate a less than or equal to 10% change in results. Biotin concentrations greater than this falsely decrease Troponin results for patient samples. [facility] [id number] [address] [place] [address] 5[address]85 C-Reactive Protein October 05, 2024 7:37am 4.5 mg/dL Above high normal <1.1 [facility] [id number] [address] [place] [address] 92364 MF-Jkk-D-Type Natriuretic Peptide June 28, 2024 5:21pm 282 pg/mL Above high normal 19.9-100 Reference Range:Normal, Heart Failure unlikely: </= 300 pg/mlHigh Probablility of Heart Failure: <50 Years >/= 450 pg/ml 50-75 Years >/= 900 pg/ml >75 Years >/= 1800 pg/ml [facility] [id number] [address] [address] LA-Cui-J-Type Natriuretic Peptide October 05, 2024 6:12am 653 pg/mL Above high normal 19.9-100 Reference Range:Normal, Heart Failure unlikely: </= 300 pg/mlHigh Probablility of Heart Failure: <50 Years >/= 450 pg/ml 50-75 Years >/= 900 pg/ml >75 Years >/= 1800 pg/ml [facility] [id number] [address] [place] [address] HF-Zfu-T-Type Natriuretic Peptide October 27, 2024 6:28am 427 pg/mL Above high normal 19.9-100 Reference Range:Normal, Heart Failure unlikely: </= 300 pg/mlHigh Probablility of Heart Failure: <50 Years >/= 450 pg/ml 50-75 Years >/= 900 pg/ml >75 Years >/= 1800 pg/ml [facility] [id number] [address] [place] [address] Total Protein July 01, 2024 4:31am 6.0 g/dL Below low normal 6.3-8.2 [facility] [id number] [address] [place] [address] 72766 Total Protein September 03, 2024 3:35am 6.0 g/dL Below low normal 6.3-8.2 [facility] [id number] [address] [place] [address] 58125 Total Protein October 12, 2024 9:19am 5.0 g/dL Below low normal 6.3-8.2 [facility] [id number] [address] [place], [place] [address] Total Protein October 29, 2024 12:28pm 5.0 g/dL Below low normal 6.3-8.2 [facility] [id number] [address] [place] [address] 6[address]28 Albumin July 01, 2024 4:31am 3.1 g/dL Below low normal 3.5-5.1 [facility] [id number] [address] [place] [address] 24686 Albumin September 03, 2024 3:35am 2.7 g/dL Below low normal 3.5-5.1 [facility] [id number] [address] [place] [address] 69806 Albumin October 12, 2024 9:19am 2.5 g/dL Below low normal 3.5-5.1 [facility] [id number] [address] [address] Albumin October 29, 2024 12:28pm 2.3 g/dL Below low normal 3.5-5.1 [facility] [id number] [address] [address] Triglycerides Level October 05, 2024 3:42pm 62 mg/dL <150 [facility] [id number] [address] [address] Cholesterol Level October 05, 2024 3:42pm 129 mg/dL 0-200 [facility] [id number] [address] [address] LDL Cholesterol Direct October 05, 2024 3:42pm 55 mg/dL <130 mg/dl [id number] 9 mg/dl Borderline High Risk >160 mg/dl High Risk [facility] [id number] [address] [address] HDL Cholesterol Direct October 05, 2024 3:42pm 59 mg/dL Expected Range > 35 mg/dl [facility] [id number] [facility] [address] [address] Alkaline Phosphatase July 01, 2024 4:31am 61 U/L 38-126 [facility] [id number] [address] [address] Alkaline Phosphatase September 03, 2024 3:35am 59 U/L 38-126 [facility] [id number] [address] [address] Alkaline Phosphatase October 12, 2024 9:19am 50 U/L 38-126 [facility] [id number] [address] [address] Alkaline Phosphatase October 29, 2024 12:28pm 71 U/L 38-126 [facility] [id number] [address] [address] Lipase August 25, 2024 4:31pm 12 U/L Below low normal 23-300 [facility] [id number] [address] [address] Lipase October 05, 2024 6:12am 26 U/L 23-300 [facility] [id number] [address] [address] Vitamin B12 Level October 13, 2024 8:39am 672.0 pg/mL 239-931 [facility] [id number] [address] [place] [address] 93466 Folate October 13, 2024 8:39am 14.6 ng/mL 2.76-20 [facility] [id number] [address] [place], [place] [address] Thyroid Stimulating Hormone (Reflex October 07, 2024 3:55am 0.840 [iU]/mL 0.465-4.68 [facility] [id number] [address] [place], [place] [address] Procalcitonin August 29, 2024 9:32pm 0.1 ng/mL Interpretation Guidelines<0.50 0 ng/mL Low risk for sepsis; local bacterial infection possible.0.500- 2.00 ng/mL Sepsis is possible; other conditions possible.>2.00 ng/mL Highly suggestive of systemic bacterial infection/sepsi s or severe localized bacterial infection.Proca lcitonin levels should be evaluated in context of all laboratory findings and the total clinical status of the patient. [facility] [id number] [address] [place] [address] 39747 Procalcitonin October 05, 2024 6:12am 0.1 ng/mL Interpretation Guidelines<0.50 0 ng/mL Low risk for sepsis; local bacterial infection possible.0.500- 2.00 ng/mL Sepsis is possible; other conditions possible.>2.00 ng/mL Highly suggestive of systemic bacterial infection/sepsi s or severe localized bacterial infection.Proca lcitonin levels should be evaluated in context of all laboratory findings and the total clinical status of the patient. [facility] [id number] [address] [place], [place] [address] SARS-CoV-2 RNA (RT-PCR) October 13, 2024 2:16pm Negative Negative This assay is designed to detect the RdRp and N genes of SARS-CoV-2 using nucleic acid amplification. A negative result does not preclude the possibility of 2019-nCoV infection since the adequacy of sample collection and/or low viral burden may result in the presence of viral nucleic acids levels below the analytical sensitivity of this test method. Positive results are indicative of the presence of SARS-CoV-2 RNA and do not rule out bacterial infection or co-infection with other viruses. Test results should be used along with other clinical observations, patient history, epidemiological information and laboratory data in making the diagnosis.This test has received FDA Emergency Use Authorization and has been verified by [facility]. This test is only authorized for the duration of the declaration and the circumstances that exist to justify the authorization of the emergency use of in vitro diagnostic tests for the detection of SARS-CoV-2 virus and/or diagnosis of COVID-19 infection under section 564(b)(1) of the Act. 11 U.S.C. 360bbb-3(b)(1), unless the authorization is terminated or revoked sooner.[facility] is certified under CLIA-88 as qualified to perform high complexity testing. This testing was performed in the [facility] [place] [address] (CLIA License #[id number], CAP #[id number], AU-ID # [id number]).Factsh eet for healthcare providers: https://www.fda .gov/media/1362 56/downloadFact sheet for patients: https://www.fda .gov/media/1364 57/download [facility] [id number] [address] [place] [address] SARS-CoV-2 RNA (RT-PCR) October 27, 2024 11:37pm Negative Negative This assay is designed to detect the RdRp and N genes of SARS-CoV-2 using nucleic acid amplification. A negative result does not preclude the possibility of 2019-nCoV infection since the adequacy of sample collection and/or low viral burden may result in the presence of viral nucleic acids levels below the analytical sensitivity of this test method. Positive results are indicative of the presence of SARS-CoV-2 RNA and do not rule out bacterial infection or co-infection with other viruses. Test results should be used along with other clinical observations, patient history, epidemiological information and laboratory data in making the diagnosis.This test has received FDA Emergency Use Authorization and has been verified by [facility]. This test is only authorized for the duration of the declaration and the circumstances that exist to justify the authorization of the emergency use of in vitro diagnostic tests for the detection of SARS-CoV-2 virus and/or diagnosis of COVID-19 infection under section 564(b)(1) of the Act. 11 U.S.C. 360bbb-3(b)(1), unless the authorization is terminated or revoked sooner.[facility] is certified under CLIA-88 as qualified to perform high complexity testing. This testing was performed in the [facility] [place] [address] (CLIA License #[id number], CAP #[id number], AU-ID # [id number]).Factsh eet for healthcare providers: https://www.fda .gov/media/7249 56/downloadFact sheet for patients: https://www.fda .gov/media/3061 57/download [facility] [id number] [address] [place] [address] [place] [address] Influenza Type B (RT-PCR) October 05, 2024 6:12am Negative Negative The test is performed on the GigaPanXpert Dx System and utilized automated real-time polymerase chain reaction (PCR) to detect presence of the Influenza A and/or Influenza B virus. Positive results are indicative of the presence of the identified virus but cannot rule out bacterial infection or co-infection with other pathogens not detected by the test. Negative should not be used as the sole basis for treatment or other patient management decisions. Negative results must be combined with clinical observations, patient history, and/or epidemiological information. [facility] [id number] [address] [place] [address] Influenza Type B (RT-PCR) October 27, 2024 11:37pm Negative Negative The test is performed on the GigaPanXpert Dx System and utilized automated real-time polymerase chain reaction (PCR) to detect presence of the Influenza A and/or Influenza B virus. Positive results are indicative of the presence of the identified virus but cannot rule out bacterial infection or co-infection with other pathogens not detected by the test. Negative should not be used as the sole basis for treatment or other patient management decisions. Negative results must be combined with clinical observations, patient history, and/or epidemiological information. [facility] [id number] [address] [place] [address] Influenza Type A (RT-PCR) October 05, 2024 6:12am Negative Negative The test is performed on the GigaPanXpert Dx System and utilized automated real-time polymerase chain reaction (PCR) to detect presence of the Influenza A and/or Influenza B virus. Positive results are indicative of the presence of the identified virus but cannot rule out bacterial infection or co-infection with other pathogens not detected by the test. Negative should not be used as the sole basis for treatment or other patient management decisions. Negative results must be combined with clinical observations, patient history, and/or epidemiological information. [facility] [id number] [address] [place], [place] [id number] Influenza Type A (RT-PCR) October 27, 2024 11:37pm Negative Negative The test is performed on the [employer] GeneXpert Dx System and utilized automated real-time polymerase chain reaction (PCR) to detect presence of the Influenza A and/or Influenza B virus. Positive results are indicative of the presence of the identified virus but cannot rule out bacterial infection or co-infection with other pathogens not detected by the test. Negative should not be used as the sole basis for treatment or other patient management decisions. Negative results must be combined with clinical observations, patient history, and/or epidemiological information. [facility] [id number] [address] [place] [address] Respiratory Syncytial Virus (RT-PCR October 05, 2024 6:12am Negative Negative The test is performed on the GigaPanXpert Dx System and utilized automated real-time polymerase chain reaction (PCR) to detect presence of the RSV virus. Positive results are indicative of the presence of the identified virus but cannot rule out bacterial infection or co-infection with other pathogens not detected by the test. Negative results should not be used as the sole basis for treatment or other patient management decisions. Negative results must be combined with clinical observations, patient history, and/or epidemiological information. [facility] [id number] [address] [place] [address] Bronchial Specimen Source July 03, 2024 1:04pm Bronchial washings [facility] [id number] [address] [place] [address] Bronchial Fluid Appearance July 03, 2024 1:04pm Clear [facility] [id number] [address] [place] [address] Bronchial Fluid Color July 03, 2024 1:04pm Colorless [facility] [id number] [address] [place] [address] Bronchial Fluid Neutrophils July 03, 2024 1:04pm 31 % [facility] [id number] [address] [place] [address] Bronchial Fluid Lymphocytes July 03, 2024 1:04pm 28 % [facility] [id number] [address] [address] Bronchial Fluid Monocytes July 03, 2024 1:04pm 38 % [facility] [id number] [address] [address] Bronchial Fluid Eosinophils July 03, 2024 1:04pm 3 % [facility] [id number] [address] [address] Bronchial Fluid Macrophages July 03, 2024 1:04pm 0 [facility] [id number] [address] [address] Bronchial Fluid Other Cells July 03, 2024 1:04pm 6 % [facility] [id number] [address] [address] Vancomycin Level Trough October 06, 2024 9:07pm 20.1 ug/mL Above high normal 10.0-20.0 [facility] [id number] [address] [address] Arterial Blood pH June 30, 2024 4:26am 7.347 Below low normal 7.350-7.45 0 [facility] [id number] [address] [address] Arterial Blood pH August 30, 2024 4:58am 7.355 7.350-7.45 0 [facility] [id number] [address] [address] Arterial Blood pH October 13, 2024 12:18pm 7.460 Above high normal 7.350-7.45 0 [facility] [id number] [address] [address] Arterial Blood pH October 27, 2024 4:36pm 7.343 Below low normal 7.350-7.45 0 [facility] [id number] [address] [address] Arterial Blood Partial Pressure CO2 June 30, 2024 4:26am 63.9 mm[Hg] Above high normal 35.0-45.0 Critical test result called with verbal read-back verified at 0543 on 06/30/24 by Marquez Haas.Caregiver :Kye Weaver MD Critical test name and result given:PCO2 63.9 [facility] [id number] [address] [place] [address] Arterial Blood Partial Pressure CO2 August 30, 2024 4:58am 64.2 mm[Hg] Above high normal 35.0-45.0 Critical test result called with verbal read-back verified at 0620 on 08/30/24 by Joan West CRTT.Caregiver: Carla Coates RN Critical test name and result given:ABG PCO2 64.2 [facility] [id number] [address] [place] [address] Arterial Blood Partial Pressure CO2 October 13, 2024 12:18pm 49.8 mm[Hg] Above high normal 35.0-45.0 [facility] [id number] [address] [place] [address] Arterial Blood Partial Pressure CO2 October 27, 2024 4:36pm 43.0 mm[Hg] 35.0-45.0 [facility] [id number] [address] [address] Arterial Blood Partial Pressure O2 June 30, 2024 4:26am 156.3 mm[Hg] Above high normal 80.0-100.0 [facility] [id number] [address] [address] Arterial Blood Partial Pressure O2 August 30, 2024 4:58am 85.0 mm[Hg] 80.0-100.0 [facility] [id number] [address] [address] Arterial Blood Partial Pressure O2 October 13, 2024 12:18pm 66.8 mm[Hg] Below low normal 80.0-100.0 [facility] [id number] [address] [address] Arterial Blood Partial Pressure O2 October 27, 2024 4:36pm 77.1 mm[Hg] Below low normal 80.0-100.0 [facility] [id number] [address] [address] Arterial Blood HCO3 June 30, 2024 4:26am 34.2 meq/L Above high normal 22.0-26.0 [facility] [id number] [address] [address] Arterial Blood HCO3 August 30, 2024 4:58am 35.0 meq/L Above high normal 22.0-26.0 [facility] [id number] [address] [address] Arterial Blood HCO3 October 13, 2024 12:18pm 34.6 meq/L Above high normal 22.0-26.0 [facility] [id number] [address] [place] [address] Arterial Blood HCO3 October 27, 2024 4:36pm 22.8 meq/L 22.0-26.0 [facility] [id number] [address] [address] Arterial Blood Base Excess June 30, 2024 4:26am 6.9 meq/L +/-2.0 [facility] [id number] [address] [place] [address] Arterial Blood Base Excess August 30, 2024 4:58am 8.0 meq/L +/-2.0 [facility] [id number] [address] [address] Arterial Blood Base Excess October 13, 2024 12:18pm 9.4 meq/L +/-2.0 [facility] [id number] [address] [address] Arterial Blood Base Excess October 27, 2024 4:36pm -2.8 meq/L +/-2.0 [facility] [id number] [address] [address] Arterial Blood Oxygen Saturation June 30, 2024 4:26am 98.9 % 95.0-100.0 [facility] [id number] [address] [address] Arterial Blood Oxygen Saturation August 30, 2024 4:58am 95.7 % 95.0-100.0 [facility] [id number] [address] [address] Arterial Blood Oxygen Saturation October 13, 2024 12:18pm 94.0 % Below low normal 95.0-100.0 [facility] [id number] [address] [address] Arterial Blood Oxygen Saturation October 27, 2024 4:36pm 94.7 % Below low normal 95.0-100.0 [facility] [id number] [address] [address] Total Hemoglobin June 30, 2024 4:26am 11.2 g/dL Below low normal 12.0-18.0 [facility] [id number] [address] [address] Total Hemoglobin August 30, 2024 4:58am 9.8 g/dL Below low normal 12.0-18.0 [facility] [id number] [address] [address] Total Hemoglobin October 13, 2024 12:18pm 12.7 g/dL 12.0-18.0 [facility] [id number] [address] [address] Total Hemoglobin October 27, 2024 4:36pm 12.5 g/dL 12.0-18.0 [facility] [id number] [address] [address] Blood Gas A-a Gradient June 30, 2024 4:26am 128.3 mm[Hg] [facility] [id number] [address] [address] Blood Gas A-a Gradient August 30, 2024 4:58am 126.4 mm[Hg] [facility] [id number] [address] [address] Blood Gas A-a Gradient October 13, 2024 12:18pm 74.1 mm[Hg] [facility] [id number] [address] [address] Blood Gas A-a Gradient October 27, 2024 4:36pm 86.3 mm[Hg] [facility] [id number] [address] [address] Arterial Blood Oxygen Content June 30, 2024 4:26am 15.3 %{vol} Below low normal 16.0-22.0 [facility] [id number] [address] [address] Arterial Blood Oxygen Content August 30, 2024 4:58am 12.9 %{vol} Below low normal 16.0-22.0 [facility] [id number] [address] [address] Arterial Blood Oxygen Content October 13, 2024 12:18pm 16.5 %{vol} 16.0-22.0 [facility] [id number] [address] [address] Arterial Blood Oxygen Content October 27, 2024 4:36pm 16.6 %{vol} 16.0-22.0 [facility] [id number] [address] [address] Oxyhemoglobin June 30, 2024 4:26am 95.3 %{Hemoglobi n} 90.0-100.0 [facility] [id number] [address] [facility] [address] Oxyhemoglobin August 30, 2024 4:58am 92.9 %{Hemoglobi n} 90.0-100.0 [facility] [id number] [address] [facility] [address] Oxyhemoglobin October 13, 2024 12:18pm 92.4 %{Hemoglobi n} 90.0-100.0 [facility] [id number] [address] [facility] [address] Oxyhemoglobin October 27, 2024 4:36pm 94.0 %{Hemoglobi n} 90.0-100.0 [facility] [id number] [address] [place] [address] Carboxyhemogl obin June 30, 2024 4:26am 1.9 %{Hemoglobi n} 0-2.0 [facility] [id number] [address] [place] [address] Carboxyhemogl obin August 29, 2024 10:50pm 2.4 %{Hemoglobi n} Above high normal 0-2.0 [facility] [id number] [address] [place] [address] Carboxyhemogl obin October 12, 2024 9:23pm 2.1 %{Hemoglobi n} Above high normal 0-2.0 [facility] [id number] [address] [place] [address] Carboxyhemogl obin October 27, 2024 4:36pm 1.3 %{Hemoglobi n} 0-2.0 [facility] [id number] [address] [place] [address] Methemoglobin June 30, 2024 4:26am 0.0 %{Hemoglobi n} 0-1.5 [facility] [id number] [address] [place] [address] Methemoglobin August 29, 2024 10:50pm 0.0 %{Hemoglobi n} 0-1.5 [facility] [id number] [address] [facility] [address] Methemoglobin October 12, 2024 9:23pm 0.3 %{Hemoglobi n} 0-1.5 [facility] [id number] [address] [facility] [address] Methemoglobin October 27, 2024 4:36pm 0.1 %{Hemoglobi n} 0-1.5 [facility] [id number] [address] [place] [address] Reduced Hemoglobin June 30, 2024 4:26am 2.8 %{Hemoglobi n} 0-5.0 [facility] [id number] [address] [place] [address] Reduced Hemoglobin August 29, 2024 10:50pm 5.2 %{Hemoglobi n} Above high normal 0-5.0 [facility] [id number] [address] [place] [address] Reduced Hemoglobin October 12, 2024 9:23pm 8.3 %{Hemoglobi n} Above high normal 0-5.0 [facility] [id number] [address] [place] [address] Reduced Hemoglobin October 27, 2024 4:36pm 4.6 %{Hemoglobi n} 0-5.0 [facility] [id number] [address] [place] [address] Arterial Blood PO2/FiO2 Ratio June 30, 2024 4:26am 3.13 % [facility] [id number] [address] [place] [address] Arterial Blood PO2/FiO2 Ratio August 30, 2024 4:58am 2.13 % [facility] [id number] [address] [place] [address] Arterial Blood PO2/FiO2 Ratio October 13, 2024 12:18pm 2.39 % [facility] [id number] [address] [place] [address] Arterial Blood PO2/FiO2 Ratio October 27, 2024 4:36pm 2.57 % [facility] [id number] [address] [place] [address] FiO2 June 30, 2024 4:26am 50 % [facility] [id number] [address] [place] [address] FiO2 August 30, 2024 4:58am 40 % [facility] [id number] [address] [place] [address] FiO2 October 13, 2024 12:18pm 28 % [facility] [id number] [address] [place] [address] FiO2 October 27, 2024 4:36pm 30 % [facility] [id number] [address] [place] [address] Blood Gas Puncture Site June 30, 2024 4:26am Right radial [facility] [id number] [address] [place] [address] Blood Gas Puncture Site August 30, 2024 4:58am Right brachial [facility] [id number] [address] [place] [address] Blood Gas Puncture Site October 13, 2024 12:18pm Right radial [facility] [id number] [address] [place] [address] Blood Gas Puncture Site October 27, 2024 4:36pm Right radial [facility] [id number] [address] [place] [address] Oxygen Delivery Device June 30, 2024 4:26am Cpap [facility] [id number] [address] [place] [address] Oxygen Delivery Device August 30, 2024 4:58am Non-invasiv e vent [facility] [id number] [address] [place] [address] Oxygen Delivery Device October 13, 2024 12:18pm Nasal cannula [facility] [id number] [address] [place] [address] Oxygen Delivery Device October 27, 2024 4:36pm Non-invasiv e [facility] [id number] [address] [place] [address] Blood Gas Vent Rate August 30, 2024 4:58am 20 /MIN [facility] [id number] [address] [place] [address] Blood Gas Vent Rate October 27, 2024 4:36pm 16 /MIN [facility] [id number] [address] [place] [address] Blood Gas Inspiratory Pressure August 30, 2024 4:58am 10 CMH2O [facility] [id number] [address] [place] [address] Blood Gas Inspiratory Pressure October 27, 2024 4:36pm 12 CMH2O [facility] [id number] [address] [facility] [address] Blood Gas Expiratory Pressure August 30, 2024 4:58am 5 CMH2O [facility] [id number] [address] [place] [address] Blood Gas Expiratory Pressure October 27, 2024 4:36pm 8 CMH2O [facility] [id number] [address] [place] [address] Blood Gas Inspiratory Pressure October 05, 2024 2:10pm Not Reportable [facility] [id number] [address] [place] [address] Blood Gas Expiratory Pressure October 05, 2024 2:10pm 8 cmH2O pt on avaps [place] 550, r 20, E 8, FIO2 40% [facility] [id number] [address] [facility] [address] [place] [address] Blood Gas CPAP June 30, 2024 4:26am 7 cmH2O [facility] [id number] [address] [place] [address] Oxygen Liters/Minute June 30, 2024 4:26am Not Reportable [facility] [id number] [address] [address] Oxygen Liters/Minute August 30, 2024 4:58am Not Reportable [facility] [id number] [address] [address] Oxygen Liters/Minute October 13, 2024 12:18pm 2.0 LPM [facility] [id number] [address] [facility] [address] [place] [address] Oxygen Liters/Minute October 27, 2024 4:36pm Not Reportable [facility] [id number] [address] [address] Urine Casts June 29, 2024 1:30am 3-5 [facility] [id number] [address] [facility] [address] [place] [address] Urine Casts August 25, 2024 4:31pm >20 [facility] [id number] [address] [address] Urine Casts October 05, 2024 6:35am 11-20 [facility] [id number] [address] [facility] [address] [place] [address] Urine Casts October 27, 2024 8:20am 11-20 [facility] [id number] [address] [address] Add Urine Microanalysis August 25, 2024 4:31pm Reviewed [facility] [id number] [address] [address] Add Urine Microanalysis October 05, 2024 6:35am Reviewed [facility] [id number] [address] [facility] [address] [place] [address] Add Urine Microanalysis October 27, 2024 8:20am Reviewed [facility] [id number] [address] [place] [address] [place] [address] Nasal MRSA (PCR) August 29, 2024 10:09pm Detected Abnormal (applies to non-numeric results) NOT DETECTE The MRSA Real-Time PCR test is not intended to diagnose, guide, or monitor MRSA infections. Concomitant cultures are necessary to recover organisms for epidemiological typing or for further susceptibility testing. Critic al test result called with verbal read-back verifiedat 0032 on 08/30/24 by RICH.Caregive r:CARLA COATES-RNCr itical test name and result given: MRSA=DETECTED [facility] [id number] [address] [place] [address] [place] [address] Nasal MRSA (PCR) October 12, 2024 2:15pm Detected Abnormal (applies to non-numeric results) NOT DETECTE The MRSA Real-Time PCR test is not intended to diagnose, guide, or monitor MRSA infections. Concomitant cultures are necessary to recover organisms for epidemiological typing or for further susceptibility testing. Critic al test result called with verbal read-back verified at 1707 on 10/12/24 by Dot Elmore.Careg iver: LAURA NOLASCO RNCritical test name and result given: MRSA DETECTED [facility] [id number] [address] [place] [address] Nasal MRSA (PCR) October 27, 2024 11:37pm Detected Abnormal (applies to non-numeric results) NOT DETECTE The MRSA Real-Time PCR test is not intended to diagnose, guide, or monitor MRSA infections. Concomitant cultures are necessary to recover organisms for epidemiological typing or for further susceptibility testing. [facility] [id number] [address] [place], [place] [address] Microbiology Results Procedure Source Result Collection Date/Time Result Date/Time Result Comment Performing Site Blood Culture Blood August 29, 2024 10:23pm September 04, 2024 1:07pm [facility] Blood August 29, 2024 10:30pm September 04, 2024 1:07pm [facility] Blood October 05, 2024 6:13am October 11, 2024 1:18am [facility] Blood October 05, 2024 6:20am October 11, 2024 1:18am [facility]rine [facility] Unspecified Escherichia Coli June 29, 2024 2:30am July 01, 2024 10:14am [facility] Urine Catheterized August 25, 2024 5:31pm August 27, 2024 12:38am [facility] Urine Clean Catch Escherichia Coli October 05, 2024 6:35am October 07, 2024 1:54pm [facility] Urine Clean Catch Escherichia Coli October 27, 2024 8:20am October 29, 2024 2:07pm [facility] Reports Author Jesús [facility] Report Date/Time October 27, 2024 11:30am [facility] [address] [place], [place] [id number] [place] Scan Report Signed Patient: Farhan Armstrong : 1945 MR#: [id number] Age: 78 Acct:[id number] Loc: [facility] ADM Date: 10/27/[address]: Ordering Physician: Aracely Courtney MD Date of Service: 10/27/24 Procedure(s): CTA chest PE protocol Accession Number(s): [id number] cc: Aracely Courtney MD; Jewel Aleman MD; Fiordaliza Melissa PA-C~ Clinical Indication: Hypoxia CT Scan of the Chest with Contrast: Technique: Contiguous sections were acquired throughout the chest after intravenous administration of 100 cc of Omnipaque 350. Dose reduction technique was used on this scan by utilizing automated exposure control and iterative reconstruction technique. The dose-length product (DLP) was 625.55 mGy-cm. COMPARISON: 10/06/2024 Findings: There is no evidence of any significant mediastinal, hilar or axillary lymphadenopathy. There is no filling defect in the pulmonary arterial tree to suggest pulmonary embolus. There is no evidence of aortic dissection or aneurysm. No pericardial effusion. Minimal left pleural effusion present. No right pleural effusion. Calcified posterior pleural plaque present. Stable dense consolidation and volume loss of the right upper lobe. There is extensive airspace consolidation the left lower lobe with additional involvementmore focally in the lingula. There is patchy right lower lobe airspace disease. Images through the upper abdomen reveal no abnormalities. Impression: No evidence of pulmonary embolus, aortic dissection, or aortic aneurysm. Extensive left lower lobe consolidation is more patchy involvement in the lingula and right lower lobe. Findings are suspicious for multifocal pneumonia. Stable dense consolidation volume loss of the right upper lobe, which could reflect chronic right upper lobe atelectasis. Minimal left pleural effusion. Reviewed, dictated and finalized at location . 7 INTERFACE DEVELOPER Dictated By: Jesús Cortez MD 10/27/24 1127 Signed By: <Electronically signed by Jesús Cortez MD in OV> 10/27/24 1130 Author [facility] Report Date/Time October 30, 2024 2:02pm [place] [address] [place], [place] [id number] XRay Report Signed Patient: Farhan Armstrong : 1945 MR#: [id number] Age: 78 Acct:[id number] Loc: [id number] ADM Date: 10/27/[address]: Cely Loyola APRN Ordering Physician: Aracely Courtney MD Date of Service: 10/27/24 Procedure(s): XR chest 1V portable Accession Number(s): [id number] cc: Cely Loyola APRN; Aracely Courtney MD; Jewel Aleman MD~ CORRECTED REPORT Moved images and report to [id number] from [id number] [facility] 10/30/24 This report was recreated on 10/30/24. Original report was Electronically signedby Nitin Santana M.D. on 10/27/2024 8:09 HL7 INTERFACE DEVELOPER XR chest 1V portable Ordering provider: Aracely Courtney History: 78 years Male with . RESPIRATORY DISTRESS . Comparison: October 10, 2024 FINDINGS: MEDIASTINUM: The cardiac silhouette is slightly enlarged. Right Port-A-Cath withthe tip overlying superior vena cava. Congestive lenny. LUNGS: No pneumothorax. Opacification in the right upper lobe suggestive of atelectasis versus pneumonia with possible effusion. Bilateral interstitial changes. OTHER: No free air under the diaphragm. IMPRESSION: No change from previous examination. Reviewed, dictated and finalized at location A. 7 INTERFACE DEVELOPER Dictated By: Nitin Santana MD 10/27/24 0807 Signed By: 10/30/24 1402 Vital Signs Vital Reading Result Reference Range Collection Date/Time Height 69 [in_i] June 28 9:02pm Weight 85.60 kg June 28 9:02pm Body Temperature 98.6 [degF] 97.6-99.6 June 2:52pm Heart Rate 78 /min 60-100 July 04 2:52pm Respiratory rate 20 /min -June 2:52pm Oxygen saturation by Pulse oximetry 94 % 90-100 July 04, 2024 2: 52pm BP Systolic 115 mm[Hg] 100-140 July 04 2:52pm BP Diastolic 55 mm[Hg] 60-90 July 04 2:52pm BMI (Body Mass Index) 27.8 kg/m2 June 28, 2024 9:02pm Inhaled oxygen concentration 40 % June 29, 2024 12:32am Inhaled oxygen flow rate 1 L/min Jun 11:50am Height 69 [in_i] August 25 9:10pm Weight 87.50 kg September 03, 2 024 4:00am Body Temperature 98.1 [degF] 97.6-99.6 August 10:20am Heart Rate 79 /min 60-100 September 03, 2 024 1:39pm Respiratory rate 20 /min -August 1:39pm Oxygen saturation by Pulse oximetry 93 % 90-100 September 03, 2024 1 1:00am BP Systolic 101 mm[Hg] 100-140 September 03, 2 024 10:20am BP Diastolic 60 mm[Hg] 60-90 September 03, 2 024 10:20am BMI (Body Mass Index) 28.5 kg/m2 Octobe r 2023 10:45am Inhaled oxygen concentration 32 % September 02, 2024 12:17pm Inhaled oxygen flow rate 3 L/min Oct sola 2023 11:00am Height 70 [in_i] October 05, 2024 8:22am Weight 76.10 kg October 13, 2024 5:00am Body Temperature 97.8 [degF] 97.6-99.6 October 132023 6:07am Heart Rate 74 /min 60-100 October 13, 2024 1:51pm Respiratory rate 20 /min -October 132023 1:51pm Oxygen saturation by Pulse oximetry 98 % 90-100 October 13, 2024 1:21pm BP Systolic 120 mm[Hg] 100-140 October 13, 2024 1:00pm BP Diastolic 60 mm[Hg] 60-90 October 13, 2024 1:00pm BMI (Body Mass Index) 27.5 kg/m2 [facility] er 2023 12:02pm Inhaled oxygen concentration 28 % October 11, 2024 1:20pm Inhaled oxygen flow rate 2 L/min [facility] ember 2023 1:21pm Height 70 [in_i] October 27, 2024 8:48pm Weight 86.40 kg October 30, 2024 6:44am Body Temperature 97.7 [degF] 97.6-99.6 October 302023 6:45am Heart Rate 71 /min 60-100 October 30, 2024 2:22pm Respiratory rate 20 /min -October 302023 2:22pm Oxygen saturation by Pulse oximetry 93 % 90-100 October 30, 2024 10:07am BP Systolic 105 mm[Hg] 100-140 October 30, 2024 6:45am BP Diastolic 50 mm[Hg] 60-90 October 30, 2024 6:45am BMI (Body Mass Index) 27.0 kg/m2 [facility] er 2023 2:09pm Inhaled oxygen concentration 28 % October 28, 2024 8:14am Inhaled oxygen flow rate 2 L/min [facility] ember 2023 10:07am Advance Directives Advance Directive Response Recorded Date/ Time Current Advance Directive Yes June 29, 2024 1:51pm Advance Directive Type Healthcare Power of Attor joseph June 29, 2024 1:51pm Name of Healthcare Power Of Candy Wrapping Machine Operator son, Harshal Armstrong, is POA June 29, 2024 1:51pm Advance Directive Intent See above June 29, 2024 1:51pm Current Advance Directive Yes Octobe r 2023 12:56pm Advance Directive Type Healthcare Power of Attor joseph August 26, 2024 12:56pm Name of Healthcare Power Of Candy Wrapping Machine Operator yogesh Armstrong [phone] August 26, 2024 12:56p m Advance Directive Intent yogesh Armstrong August 26, 2024 12:56pm Current Advance Directive Yes Novemb er 2023 3:12pm Advance Directive Type Healthcare Power of Attor joseph October 06, 2024 3:12pm Name of Healthcare Power Of Candy Wrapping Machine Operator Yogesh Rose October 06, 2024 3:12pm Advance Directive Intent Pt's HPOA is son Milton. October 06, 2024 3:12pm Current Advance Directive No Decemb er 2023 7:17pm Insurance Providers Guarantor Farhan Armstrong Address [address] [place] [address] [place] [address] Contact Info. Home Phone: Payer Policy Id Coverage Id Subscriber's Name Subscriber Id Effective Date Expiration Date [facility] [id number] Farhan Armstrong [id number] 2018 [place] Medicaid [id number] Farhan Armstrong [id number] Encounters Encounter Location(s) Arrival/Admit Date Discharge /Depart Date Provider(s) Discharged Inpatient [facility] 3 Medical June 28, 2024 7:28pm July 04, 2024 3:24pm Sandrine Martinez MD Discharged Inpatient [facility] Intermediate Care Unit August 26, 2024 8:11am September 03, 2024 2:49pm KELSEY Knight Discharged Inpatient [facility] 3 Med Surg October 05, 2024 11:41am October 13, 2024 4:00pm Arely T. Abner , MARINE ELECTRICIAN APPRENTICE Discharged Inpatient [facility] 2 Medical October 27, 2024 3:09pm October 30, 2024 2:29pm Cely Loyola , RADHA Recent Diagnosis Onset Date Admit Date Acute hypoxic on chronic hyp ercapnic respiratory failure Unknown June 28, 2024 8:28pm Atrial fibrillation Unknown June 28, 2024 8:28pm Community acquired pneumonia Unknown Jun ust 2023 8:28pm History of lung cancer Unknown June 282023 8:28pm Non-small cell carcinoma of lung Unknown June 28, 2024 8:28pm Obstructive sleep apnea Unknown June 182023 8:28pm Obstructive sleep apnea (adult) (pediatric) Unkn own June 28, 2024 8:28pm Right upper lobe consolidation Unknown A ugust 2023 8:28pm Type 2 diabetes mellitus Unknown June 28, 2024 8:28pm Urinary tract infection Unknown June 182023 8:28pm COPD (chronic obstructive pulmonary disease) Unk nown June 28, 2024 8:28pm Chronic diastolic heart failure Unknown August 26, 2024 9:11am COPD (chronic obstructive pulmonary disease) Unk nown August 26, 2024 9:11am Constipation Unknown August 26 9:11am Ileus Unknown August 26 9:11am Methadone use Unknown August 26 9:11am Obstructive sleep apnea Unknown August 26, 2024 9:11am PAF (paroxysmal atrial fibrillation) Unknown August 26, 2024 9:11am Pneumonia Unknown August 26 9:11am Sepsis Unknown August 26 9:11am Urinary tract infection Unknown August 26, 2024 9:11am Atrial fibrillation with con trolled ventricular rate Unknown August 26, 2024 9:11am Acute hypoxemic respiratory failure Unknown October 05, 2024 11:41am Acute UTI Unknown October 05, 2 024 11:41am AMS (altered mental status) Unknown 2023 11:41am CHF (congestive heart failure) Unknown N ovember 2023 11:41am COPD (chronic obstructive pulmonary disease) Unk nown October 05, 2024 11:41am DVT (deep venous thrombosis) Unknown Sep 11:41am Ileus Unknown October 05, 2 024 11:41am Lung cancer Unknown October 05, 2 024 11:41am Lung mass Unknown October 05, 2 024 11:41am Pneumonia Unknown October 05, 2 024 11:41am Sacral decubitus ulcer Unknown October 05, 2024 11:41am Diabetes mellitus Unknown October 05, 2024 11:41am Acidosis, lactic Unknown October 27, 2024 3:09pm Acute and chronic respirator y failure with hypoxia Unknown October 27, 2024 3:09pm Acute respiratory distress Unknown Decem 2023 3:09pm Acute UTI Unknown October 27, 2 024 3:09pm Chronic anticoagulation Unknown October 27, 2024 3:09pm Diabetes mellitus with hyperglycemia Unknown October 27, 2024 3:09pm First degree AV block Unknown October 182023 3:09pm Heart failure with preserved ejection fraction U nknown October 27, 2024 3:09pm Moderate protein-calorie malnutrition Unknown October 27, 2024 3:09pm Multifocal pneumonia Unknown October 272023 3:09pm Obstructive sleep apnea Unknown October 27, 2024 3:09pm Sepsis Unknown October 27, 2 024 3:09pm Functional Status Observation Response Date Recorded Functional capacity on discharge bed bound October 13, 2024 12:59pm Functional capacity on discharge uses cane/walke r October 30, 2024 8:03am Mental Status Observation Response Date Recorded patient oriented x3 Yes June 28, 2024 11:12pm oriented to person Yes August 25, 2024 11:00pm oriented to place Yes August 25, 11:00pm Cognitive/Mental Status Assessments Assessments Diagnosis Onset Date Resolution Status Admit Date Acute hypoxic on chronic hypercapnic respiratory failure acute June 28, 2024 8:28pm Atrial fibrillation acute Augus t 2023 8:28pm Community acquired pneumonia acute June 28, 2024 8:28pm History of lung cancer acute Au bia 2023 8:28pm Non-small cell carcinoma of lung acute June 28 8:28pm Obstructive sleep apnea acute A ugust 2023 8:28pm Obstructive sleep apnea (sophia lt) (pediatric) acute June 28 8:28pm Right upper lobe consolidation acute June 28, 2024 8:28pm Type 2 diabetes mellitus acute June 28, 2024 8:28pm Urinary tract infection acute A ugust 2023 8:28pm COPD (chronic obstructive pulmonary disease) chronic June 28, 2024 8:28pm Chronic diastolic heart failure acut e August 26, 2024 9:11am COPD (chronic obstructive pulmonary disease) chronic August 26, 2024 9:11am Constipation acute August 26, 2024 9:11am Ileus acute August 26, 024 9:11am Methadone use acute August 9:11am Obstructive sleep apnea acute O ctober 2023 9:11am PAF (paroxysmal atrial fibrillation) acute August 26 9:11am Pneumonia acute August 26 024 9:11am Sepsis acute August 26 024 9:11am Urinary tract infection acute O ctober 2023 9:11am Atrial fibrillation with controlled ventricular rate chronic Octo 2023 9:11am Acute hypoxemic respiratory failure acute October 05 11:41am Acute UTI acute October 05, 2024 11:41am AMS (altered mental status) acute October 05, 2024 11:41am CHF (congestive heart failure) acute October 05, 2024 11:41am COPD (chronic obstructive pulmonary disease) acute September 11:41am DVT (deep venous thrombosis) acute October 05, 2024 11:41am Ileus acute October 05, 2024 11:41am Lung cancer acute September 11:41am Lung mass acute October 05, 2024 11:41am Pneumonia acute October 05, 2024 11:41am Sacral decubitus ulcer acute No vember 2023 11:41am Diabetes mellitus chronic Novembe r 2023 11:41am Acidosis, lactic acute October 27, 2024 3:09pm Acute and chronic respirator y failure with hypoxia acute October 272023 3:09pm Acute respiratory distress acute October 27, 2024 3:09pm Acute UTI acute October 27, 2024 3:09pm Chronic anticoagulation acute D ecember 2023 3:09pm Diabetes mellitus with hyperglycemia acute October 27 3:09pm First degree AV block acute Dec emb2023 3:09pm Heart failure with preserved ejection fraction acute October 27, 2024 3:09pm Moderate protein-calorie malnutrition acute October 27, 2 024 3:09pm Multifocal pneumonia acute Dece mb2023 3:09pm Obstructive sleep apnea acute D ec2023 3:09pm Sepsis acute October 27, 2024 3:09pm Plan of Treatment Future Tests Future scheduled test information is unavailable Pending Tests Test Name Ordered Date Scheduled Date Urine Pneumococcal Antigen October 28, 2024 5 :37am Urine Legionella pneumophilia Ag October 28, 2024 5:37am Mycoplasma pneumoniae IgM Antibody October 28, 2024 4:26am PT Treatment Clarification August 29, 2024 8: 24am August 29, 2024 8:24am PT Treatment Clarification October 08, 2024 1 :15pm October 08, 2024 1:15pm Future Visits Future appointment information is unavailable Referrals to Other Providers Reason for Referral Referral Start Date Provider Provider Contact Information Provider Address Jennifer Marin MD Email: [email or web address] Work Phone: [address] [facility] [address] Jewel Aleman MD Work Phone: Stacy [place] [address] Jewel Aleman [place]: [place] [address] Jewel Aleman MD Work Phone: [address] [place] [address] Jewel Aleman MD Work Phone: [facility] Stacy [place] [address] Future Procedures Procedure Name Ordered Date Scheduled Date Admit as Inpatient June 28, 2024 7:28pm Augu st 2023 7:28pm Discharge Order July 04, 2024 12:02pm July 04, 2024 12:02pm OT Treatment Clarification July 01, 2024 7:5 4am July 01, 2024 7:54am PT Discharge Clarification July 01, 2024 11: 09am July 01, 2024 11:09am Discharge Order September 03, 2024 11:02am Octob er 2023 11:02am Placement to Observation August 25, 2024 8:01p m August 25, 2024 8:02pm Change Status to Inpatient August 26, 2024 8:1 1am August 26, 2024 8:11am Wound/ET Consult August 26, 2024 2:15am Octobe r 2023 11:00pm OT Treatment Clarification August 29, 2024 8: 23am August 29, 2024 8:23am ST / Speech Discharge Clarification August 30, 2024 10:38am August 30, 2024 10:38am ST / Speech Treatment Clarification September 01, 2024 2:12pm September 01, 2024 2:12pm Discharge Order October 13, 2024 1:16pm Novem 2023 1:16pm Placement to Observation October 05, 2024 7:0 8am October 05, 2024 7:09am Change Status to Inpatient September 11:41am October 05, 2024 11:41am OT Treatment Clarification September 11:58am October 08, 2024 11:58am Discharge Order October 30, 2024 9:02am Decem 2023 9:02am Placement to Observation October 27, 2024 11:48am October 27, 2024 11:48am Change Status to Inpatient October 27, 2024 3 :09pm October 27, 2024 3:09pm Future Medications Future medication information is unavailable Patient Instructions Instruction Admit Date Antibiotic Form Apixaban (By mouth) Pain Management (DC) COPD (Chronic Obstructive Pulmonary Disease) (DC) Community Acquired Pneumonia (DC) June 28, 2024 8:28pm Antibiotic Form Doxycycline (By mouth) Metronidazole (By mouth) Levofloxacin (By mouth) Pain Management (DC) Aspiration Pneumonia (DC) Acute Nausea and Vomiting (DC) Bacterial Pneumonia (DC) Ileus (DC) August 26, 2024 9:11am Antibiotic Form Heart Failure (GEN) October 05, 2024 11:41am Antibiotic Form Heart Attack (GEN) Heart Healthy Diet (GEN) Bacterial Pneumonia (DC) October 27, 2024 3:09pm Goals Acute Goals Author Authored Date Verbalizes/Demonstrates Unde rstanding *Demonstrates understanding of teaching [facility] July 04, 2024 3:42pm Participate in Discharge Rodrigo nning In order to achieve this outcome, the patient/ and or family will: * assist in identification of DME needs * assist in identification of community resource needs * assist in identification of appropriate discharge destination [facility] July 04, 2024 3:42pm Develop pain management prog dodie In order to achieve this outcome the patient will: * Use the pain scale appropriately * Identify options for pain control - Analgesics - Narcotics - Non-medication measures [facility] July 04, 2024 3:42pm Increase knowledge regarding pain mgmt *Demonstrates understanding of teaching [facility] July 04, 2024 3:42pm Maintain an effective breath ing pattern * Maintains a patent airway * Maintains vital signs WNL * Maintains optimal breath sounds [facility] July 04, 2024 3:42pm Exhibit intact skin * Skin remains intact [facility] July 04, 2024 3:42pm Improved infection * Maintains vital signs WNL * Evidences no purulent drainage from wounds, incisions, and tubes * Maintains optimal lab values [facility] July 04, 2024 3:42pm Remain free of injury *Follows Safety Interventions [facility] July 04, 2024 3:42pm Exhibit no s/s alt. glucose metabolism * Maintains optimal blood glucose level * Blood glucose monitored as scheduled * Patient will notify nurse when meal tray has arrived * Out of prescribed acceptable range, notify . [facility] July 04, 2024 9:16am Adapt to partial or total he aring loss * Learns optimal communication methods * Wears hearing aid [facility] July 04, 2024 3:42pm Reduced risk of bleeding * Exhibits lab results WNL [facility] July 04, 2024 3:42pm Maintain adequate fluid volu me * Maintains vital signs WNL * Maintains clear breath sounds * Exhibits decreasing edema * Maintains adequate intake and output * Maintains stable weight * Maintains optimal lab values [facility] July 04, 2024 3:42pm Adapt to partial or total vi jer loss * Uses corrective lenses * Performs ADL's * Uses safety measures [facility] July 04, 2024 3:42pm Maintains or Improves Mobili ty Maintains mobility or exhibits improvement in mobility [facility] July 04, 2024 3:42pm Adequate cardiac output *Maintains vital signs WNL *Maintains adequate urine output [facility] July 04, 2024 3:42pm *Improve Functional Mobility In order to achieve this outcome the patient will: *Improve bed mobility to independence *Improve transfers to independence *Improve balance for functional transfers and ADLs [facility] July 04, 2024 3:41pm *Improve Locomotion Mobility In order to achieve this outcome the patient will: *Improve gait to assist using least restricitve assistive device for ____ feet to meet home/community needs *Improve stair ascending/descending to ____ assist using rails/least restrictive assistive device to meet home needs. [facility] July 04, 2024 3:41pm *Achieve Optimal Muscle Stre ngth In order to achieve this outcome the patient will: * Patient will be able to perform 10 repetitions of the KALEIGH UE exercises with standby assist * Increase strength to improve function for functional transfers and ADLs * Patient will be able to perform 10 repetitions of the exercises with assist * Increase strength to improve function for [facility] July 04, 2024 3:41pm *Achieve Functional Enduranc e In order to achieve this outcome the patient will: *Patient will tolerate therapeutic activity for 10 minutes without a break *Patient will maintain O2 sats for 90% or greater with activity *Improve endurance for functional/ADL activity [facility] July 04, 2024 3:41pm *Improved Safety Awareness In order to achieve this outcome the patient will: *Request help when needed *Demonstrate increased safety during ADL's *Demonstrate increased safety during functional mobility tasks [facility] July 04, 2024 3:41pm *Improved Functional ADLs In order to achieve this outcome the patient will: *Safely complete grooming tasks with independence (with/without) the use of adaptive equipment. *Safely complete upper body dressing/undressing with MOD assist (with/without) the use of adaptive equipment *Safely complete lower body dressing/undressing with MOD assist (with/without) the use of adaptive equipment *Safely don/doff shoes and socks with MOD assist (with/without) the use of adaptive equipment *Safely complete toileting with MOD assist (with/without) adaptive equipment or durable medical equipment. [facility] July 04, 2024 3:41pm *Understands Home Program fo r OT In order to achieve this outcome the patient &/or caregiver will: * Verbalize understanding * Demonstrate understanding of injury/ disease * Demonstrate understanding of functional limitations * Demonstrate understanding of safety guidelines and precautions * Demon[place] understanding of rehab process * Demonstrate understanding of rehab potential * Demonstrate independence with instructed materials * Demonstrate independence with use of assistive device/equipment * Demonstrate understanding of care of the assistive device/equipment * Demonstrate good energy conservation techniques * Demonstrate good technique for positioning [facility] July 04, 2024 3:41pm Exhibit optimal tissue integ rity * Exhibits granulation/healing at site * Exhibits decreased drainage at site * Exhibits no s/s of infection * Exhibits a decrease in lesion size * Maintains nutritional status * Maintains hydration status * Maintains optimal lab values [facility] July 04, 2024 3:42pm Exhibits optimal GI function *Exhibits adequate intake and output *Exhibits adequate nutritional status [facility] July 04, 2024 3:42pm Maintain fluid and electroly te balance * Understands adequate fluid intake * Maintains vital signs WNL * Maintains optimal electrolyte values * Maintains balanced intake and output * Maintains BUN and Hct WNL * Maintains normal skin turgor [facility] July 04, 2024 3:42pm Pt will Experience Minimal A nxiety Patient will Demonstrate/Verbalize Minimal Anxiety Prior to Surgery 1. [place] Patient by Explaining Room & Equipment 2. Allow Patient to Verbalize and Answer Questions 3. Monitor Patient Comfort i.e. Provide Warm Blankets 4. Indicate Special Needs r/t Development Age 5. Provide Emotional Support and Reassuring Atmosphere 6. Describe Sequence of Events During Pre-Op Period 7. Confirm Written and Verbal Consent for Operative Procedure [facility] July 04, 2024 9:16am Demonstrate/Verbalize Minima l Pain Pt will Demonstrate/Verbalize Minimal Pain to Surgical Intervention 1. Assess Location, Duration, and Intensity of Pain 2. Change Position as Allowed 3. Use Therapeutic Communication 4. Relay Complaints of Pain to Primary Nurse [facility] July 04, 2024 9:15am Verbalizes/Demonstrates Unde rstanding *Demonstrates understanding of [facility] September 03, 2024 2:53pm Participate in Discharge Rodrigo nning In order to achieve this outcome, the patient/ and or family will: * assist in identification of DME needs * assist in identification of community resource needs * assist in identification of appropriate discharge destination [facility] September 03, 2024 2 :53pm Develop pain management prog dodie In order to achieve this outcome the patient will: * Use the pain scale appropriately * Identify options for pain control - Analgesics - Narcotics - Non-medication measures [facility] September 03, 2024 2:53pm Increase knowledge regarding pain mgmt *Demonstrates understanding of teaching [facility] September 03, 2024 3:38am Exhibit no s/s alt. glucose metabolism * Maintains optimal blood glucose level * Blood glucose monitored as scheduled * Patient will notify nurse when meal tray has arrived * Out of prescribed acceptable range, notify . [facility] September 03, 2024 3:39am Maintain an effective breath ing pattern * Maintains a patent airway * Maintains vital signs WNL * Maintains optimal breath sounds [facility] September 03, 2024 2 :53pm Exhibit intact skin * Skin remains intact [facility] September 03, 2024 2:53pm Remain free of injury *Follows Safety Interventions [facility] September 03, 2024 2:53p m Improved infection * Maintains vital signs WNL * Evidences no purulent drainage from wounds, incisions, and tubes * Maintains optimal lab values [facility] September 03, 2024 2:53 pm Maintain adequate fluid volu me * Maintains vital signs WNL * Maintains clear breath sounds * Exhibits decreasing edema * Maintains adequate intake and output * Maintains stable weight * Maintains optimal lab values [facility] September 03, 2024 2:53 pm Exhibits optimal GI function *Exhibits adequate intake and output *Exhibits adequate nutritional status [facility] September 03 2:53pm Maintains or Improves Mobili ty Maintains mobility or exhibits improvement in mobility [facility] September 03, 2024 2:53pm Maintains/improves level of orientation * Orients to person/place/time/situation [facility] September 03, 2024 2:53pm Exhibit optimal tissue integ rity * Exhibits granulation/healing at site * Exhibits decreased drainage at site * Exhibits no s/s of infection * Exhibits a decrease in lesion size * Maintains nutritional status * Maintains hydration status * Maintains optimal lab values [facility] September 03, 2024 2:53 pm Adapt to partial or total vi jer loss * Uses corrective lenses * Performs ADL's * Uses safety measures [facility] September 03, 2024 2:53pm Improved nutritional status [facility] September 03, 2024 2:53pm Adequate cardiac output *Maintains vital signs WNL *Maintains adequate urine output [facility] September 03, 2024 2: 53pm Experiences improved ability to swallow * Verbalizes improvement in swallowing * Experiences no aspiration * Eats/drinks without coughing or choking [facility] September 03, 2024 2:53pm *Understands Home Program fo r OT In order to achieve this outcome the patient &/or caregiver will: * Verbalize understanding * Demonstrate understanding of injury/ disease * Demonstrate understanding of functional limitations * Demonstrate understanding of safety guidelines and precautions * Demonstate understanding of rehab process * Demonstrate understanding of rehab potential * Demonstrate independence with instructed materials * Demonstrate independence with use of assistive device/equipment * Demonstrate understanding of care of the assistive device/equipment * Demonstrate good energy conservation techniques * Demonstrate good technique for positioning [facility] September 03, 2024 2:53pm *Understands Home Program fo r PT In order to achieve this outcome the patient &/or caregiver will: * Demonstrate understanding of injury/ disease * Demonstrate understanding of functional limitations * Demonstrate understanding of safety guidelines and precautions * Demonstrate independence with use of assistive device/equipment [facility] September 03, 2024 2:53pm *Improve Functional Mobility In order to achieve this outcome the patient will: *Improve bed mobility to min A *Improve transfers to min A *Improve sitting/standing balance for ADLs [facility] September 03, 2024 2:53pm *Improve Locomotion Mobility In order to achieve this outcome the patient will: *Improve gait to assist using least restricitve assistive device for ____ feet to meet home/community needs *Improve stair ascending/descending to ____ assist using rails/least restrictive assistive device to meet home needs. [facility] August 29, 2024 8:26am *Achieve Optimal Muscle Stre ngth In order to achieve this outcome the patient will: * Patient will be able to perform 10 repetitions of the KALEIGH UE exercises with standby assist * Increase strength to improve function for functional transfers and ADLs * Patient will be able to perform 10 repetitions of the BLE exercises with stand by assist * Increase strength to improve function for mobility [facility] September 03, 2024 2:53pm *Achieve Functional Enduranc e In order to achieve this outcome the patient will: *Patient will tolerate therapeutic activity for 10 minutes without a break *Patient will maintain O2 sats for 90% or greater with activity *Improve endurance for functional/ADL activity [facility] September 03, 2024 2:53pm *Improved Safety Awareness In order to achieve this outcome the patient will: *Request help when needed *Demonstrate increased safety during ADL's *Demonstrate increased safety during functional mobility tasks [facility] September 03, 2024 2:53pm *Improved Functional ADLs In order to achieve this outcome the patient will: *Safely complete grooming tasks with standby assist (with/without) the use of adaptive equipment. *Safely complete bathing with MOD assist (with/without) the use of adaptive equipment *Safely complete upper body dressing/undressing with MOD assist (with/without) the use of adaptive equipment *Safely complete lower body dressing/undressing with MOD assist (with/without) the use of adaptive equipment *Safely don/doff shoes and socks with MOD assist (with/without) the use of adaptive equipment *Safely complete toileting with MOD assist (with/without) adaptive equipment or durable medical equipment. [facility] September 03, 2024 2:53pm Exhibit no sign of aspiratio n * Maintains patent airway *No coughing or choking with intake [facility] September 03, 2024 2:53pm Verbalizes/Demonstrates Unde rstanding *Demonstrates understanding of teaching [facility] October 13, 2024 4:33pm Participate in Discharge Rodrigo nning In order to achieve this outcome, the patient/ and or family will: * assist in identification of DME needs * assist in identification of community resource needs * assist in identification of appropriate discharge destination [facility] October 13, 2024 4:33pm Develop pain management prog dodie In order to achieve this outcome the patient will: * Use the pain scale appropriately * Identify options for pain control - Analgesics - Narcotics - Non-medication measures [facility] October 13, 2024 2:26am Increase knowledge regarding pain mgmt *Demonstrates understanding of teaching [facility] October 13, 2024 2:26am Exhibit no s/s alt. glucose metabolism * Maintains optimal blood glucose level * Blood glucose monitored as scheduled * Patient will notify nurse when meal tray has arrived * Out of prescribed acceptable range, notify [facility] October 13, 2024 2:26am Maintain an effective breath ing pattern * Maintains a patent airway * Maintains vital signs WNL * Maintains optimal breath sounds [facility] October 13, 2024 4:33pm Maintain an effective breath ing pattern * Maintains a patent airway * Maintains vital signs WNL * Maintains optimal breath sounds [facility] October 13, 2024 4:33pm Maintain adequate fluid volu me * Maintains vital signs WNL * Maintains clear breath sounds * Exhibits decreasing edema * Maintains adequate intake and output * Maintains stable weight * Maintains optimal lab values [facility] October 13, 2024 2:27am Adapt to partial or total he aring loss * Learns optimal communication methods * Wears hearing aid [facility] October 13, 2024 2:26am Exhibit intact skin * Skin remains intact [facility] October 13, 2024 4:33pm Remain free of injury *Follows Safety Interventions [facility] October 13, 2024 2:27am Improved infection * Maintains vital signs WNL * Evidences no purulent drainage from wounds, incisions, and tubes * Maintains optimal lab values [facility] October 13, 2024 2:26am Adequate cardiac output *Maintains vital signs WNL *Maintains adequate urine output [facility] October 13, 2024 4:33pm Exhibits intact oral mucosa * Demonstrates appropriate oral hygiene [facility] October 13, 2024 2:26am Maintains/improves level of orientation * Orients to person/place/time/situation [facility] October 13, 2024 4:33pm Exhibit optimal tissue integ rity * Exhibits granulation/healing at site * Exhibits decreased drainage at site * Exhibits no s/s of infection * Exhibits a decrease in lesion size * Maintains nutritional status * Maintains hydration status * Maintains optimal lab values [facility] October 13, 2024 4:33pm Exhibits optimal GI function *Exhibits adequate intake and output *Exhibits adequate nutritional status [facility] October 13, 2024 2:26am Improved nutritional status [facility] October 13, 2024 4:34pm *Improve Functional Mobility In order to achieve this outcome the patient will: *Improve bed mobility to independence *Improve transfers to CGA walker *Improve standing balance to good for 5 mins to increase participation with ADLs. *Improve toilet and shower transfers to MIN A [facility] October 13, 2024 4:34pm *Improve Locomotion Mobility In order to achieve this outcome the patient will: *Improve gait to [facility] using least restrictive assistive device for 10 feet to meet home/community needs [facility] October 13, 2024 4:34pm *Achieve Optimal Muscle Stre ngth In order to achieve this outcome the patient will: * Patient will be able to perform 10 repetitions of the BLE Strengthening exercises with SBA * Increase strength to improve function for transfers and gait. [facility] October 13, 2024 4:34pm *Achieve Functional Enduranc e In order to achieve this outcome the patient will: *Patient will tolerate therapeutic activity for 10 minutes without a break *Improve endurance for functional/ADL activity [facility] October 13, 2024 4:34pm *Improved Safety Awareness In order to achieve this outcome the patient will: *Request help when needed *Demonstrate increased safety during ADL's *Demonstrate increased safety during functional mobility tasks [facility] October 13, 2024 4:34pm *Improved Functional ADLs In order to achieve this outcome the patient will: *Safely complete grooming tasks with I with the use of adaptive equipment PRN. *Safely complete bathing with MIN A with the use of adaptive equipment PRN. *Safely complete lower body dressing/undressing with MIN A with the use of adaptive equipment PRN. *Safely don/doff shoes and socks with MIN A with the use of adaptive equipment PRN *Safely complete toileting with MIN A with adaptive equipment or durable medical equipment PRN. [facility] October 13, 2024 4:34pm *Understands Home Program fo r OT In order to achieve this outcome the patient &/or caregiver will: * Demonstrate independence with instructed materials * Demonstrate independence with use of assistive device/equipment * Demonstrate good energy conservation techniques [facility] October 13, 2024 4:34pm *Understands Home Program fo r PT In order to achieve this outcome the patient &/or caregiver will: * Demonstrate understanding of COPD * Demonstrate understanding of functional limitations * Demonstrate understanding of safety awareness * Demonstrate independence with use of assistive device [facility] October 13, 2024 4:34pm Maintains or Improves Mobili ty Maintains mobility or exhibits improvement in mobility [facility] October 13, 2024 4:33pm Experiences improved ability to swallow * Verbalizes improvement in swallowing * Experiences no aspiration * Eats/drinks without coughing or choking [facility] October 13, 2024 4:33pm Exhibit no s/s alt. glucose metabolism * Maintains optimal blood glucose level * Blood glucose monitored as scheduled * Patient will notify nurse when meal tray has arrived * Out of prescribed acceptable range, notify . [facility] October 30, 2024 2:29pm Maintain an effective breath ing pattern * Maintains a patent airway * Maintains vital signs WNL * Maintains optimal breath sounds [facility] October 30, 2024 2:29pm Verbalizes/Demonstrates Unde rstanding *Demonstrates understanding of teaching [facility] October 30, 2024 2:29pm Participate in Discharge Rodrigo nning In order to achieve this outcome, the patient/ and or family will: * assist in identification of DME needs * assist in identification of community resource needs * assist in identification of appropriate discharge destination [facility] October 30, 2024 2:29pm Develop pain management prog dodie In order to achieve this outcome the patient will: * Use the pain scale appropriately * Identify options for pain control - Analgesics - Narcotics - Non-medication measures [facility] October 30, 2024 2:29pm Increase knowledge regarding pain mgmt *Demonstrates understanding of teaching [facility] October 30, 2024 2:29pm Exhibit intact skin * Skin remains intact [facility] October 30, 2024 2:29pm Remain free of injury *Follows Safety Interventions [facility] October 30, 2024 2:29pm Improved infection * Maintains vital signs WNL * Evidences no purulent drainage from wounds, incisions, and tubes * Maintains optimal lab values [facility] October 30, 2024 2:29pm Adapt to partial or total he aring loss * Learns optimal communication methods * Wears hearing aid [facility] October 30, 2024 2:29pm Maintains/improves level of orientation * Orients to person/place/time/situation [facility] October 30, 2024 2:29pm Adequate cardiac output *Maintains vital signs WNL *Maintains adequate urine output [facility] October 30, 2024 2:29pm Maintain adequate fluid volu me * Maintains vital signs WNL * Maintains clear breath sounds * Exhibits decreasing edema * Maintains adequate intake and output * Maintains stable weight * Maintains optimal lab values [facility] October 30, 2024 2:29pm Exhibit optimal tissue integ rity * Exhibits granulation/healing at site * Exhibits decreased drainage at site * Exhibits no s/s of infection * Exhibits a decrease in lesion size * Maintains nutritional status * Maintains hydration status * Maintains optimal lab values [facility] October 30, 2024 2:29pm Improved nutritional status [facility] October 30, 2024 2:29pm Exhibit no sign of aspiratio n * Maintains patent airway *No coughing or choking with intake [facility] October 30, 2024 2:29pm Maintains or Improves Mobili ty Maintains mobility or exhibits improvement in mobility [facility] October 30, 2024 2:29pm Experiences improved ability to swallow * Verbalizes improvement in swallowing * Experiences no aspiration * Eats/drinks without coughing or choking [facility] October 30, 2024 2:29pm Hospital Discharge Instructions Additional Instructions Finish all your antibiotic as directed for your treatment of pneumonia Follow up with your primary care doctor in 1 week Wear Bipap at HS Discharge Summary Note Author [facility] Note Date/Time October 30, 2024 9:07am [facility] [address] [facility] [address] [place], [place] [id number] Discharge Summary Signed Patient: Farhan Armstrong MR#: [id number] : 1945 Acct:[id number] Age: 78 ADM Date: 10/27/24 Loc: [id number]: Cely Loyola APRN cc: Cely Loyola APRN; Jewel Aleman MD; Fiordaliza Melissa PA-C~ DS: Admitting Diagnosis Discharge Date 10/30/24 Admitting Diagnosis Sepsis Multifocal pneumonia Acute on chronic respiratory failure with hypoxia Heart failure with preserved EF Chronic anticoagulation ANIA DS: Discharge Diagnosis Discharge Diagnosis (1) Sepsis: Code(s): A41.9 - Sepsis, unspecified organism Status: Acute (2) Acute and chronic respiratory failure with hypoxia: Code(s): J96.21 - Acute and chronic respiratory failure with hypoxia Status: Acute (3) Multifocal pneumonia: Code(s): J18.9 - Pneumonia, unspecified organism Status: Acute (4) Acute UTI: Code(s): N39.0 - Urinary tract infection, site not specified Status: Acute (5) Heart failure with preserved ejection fraction: Code(s): I50.30 - Unspecified diastolic (congestive) heart failure Status: Acute (6) Chronic anticoagulation: Code(s): Z79.01 - prison (current) use of anticoagulants Status: Acute (7) Obstructive sleep apnea: Code(s): G47.33 - Obstructive sleep apnea (adult) (pediatric) Status: Acute (8) Moderate protein-calorie malnutrition: Code(s): E44.0 - Moderate protein-calorie malnutrition Status: Acute DS: Summary Hospital Course Reason for hospitalization: Sepsis Multifocal pneumonia Acute on chronic respiratory failure with hypoxia Heart failure with preserved EF Chronic anticoagulation ANIA Hospital Course: This is an 78-year-old male who presented to the hospital on 10/27/2024 with shortness of breath. Workup in the hospital included chest x-ray which shown anopacification in the right upper lobe suggestive of atelectasis versus pneumonia, bilateral interstitial changes. Chest CTA showed extensive left lower lobe consolidation for patchy involvement in the lingula and right lower lobe, suspicious for multifocal pneumonia, stable dense consolidation volume loss of the right upper lobe. Initial labs showed a normal white blood cell count of 7.5, hemoglobin 13.5, lactic acid 2.7, magnesium 1.6, troponin negative, proBNP 427. A UA was obtained and showed 1+ urine protein, 1+ urine ketone, 1+ leukocyte, 11-20 urine WBC, 11-20 urine cast. MRSA was positive. Respiratory panel was negative for influenza a and B, and COVID. Urine strep, urine Legionella, mycoplasma are all pending. ABG showed a pH of 7.343, PO2 77.1. Blood and urine cultures were obtained and pending. Patient was given 1 L normal saline, Rocephin, azithromycin, meropenem while in the ED. He was continued on Rocephin and Azithromycin and then transitioned to Cefdinir and Azithromycin after urine culture came back with E coli in the urine on final read. VSS, he is afebrile, he is currently on 2-3L NC which is his baseline O2 requirements. He is stable for discharge at this time. Final diagnosis: Sepsis, acute on chronic respiratory failure with hypoxia, multifocal community acquired pneumonia, moderate protein calorie malnutrition, acute UTI Status at Discharge Cognitive/behavioral status at discharge: Alert and oriented x3 Functional status at discharge: uses cane/walker Overall status at discharge: patient is progressing back to baseline Time Spent with Patient Time attestation: Total time spent providing and/or coordinating discharge services: Time spent: Greater than 30 minutes Exam Narrative: General: In no acute distress Cardiac: Normal S1 and S2. No murmur, gallops or friction rubs, peripheral pulses intact. Respiratory: Left lower lobe crackles with mild expiratory wheezing, currently on 2L NC Gastrointestinal: soft, non-distended, non-tender, normoactive bowel sounds. : chronic corral in place draining clear yellow urine Neuro: Alert and oriented x4 DS: Data Data Completed and Pending Completed studies during hospitalization: Chest CTA Chest x-ray Pending studies at discharge: Blood cultures Labs on day of discharge: Labs from last 24 hours 10/29/24 10/29/24 10/29/24 21:36 16:48 12:28 WBC 9.8 RBC 3.27 L Hgb 9.9 L Hct 31.5 L MCV 96.3 MCH 30.3 MCHC 31.4 L RDW 14.6 H Plt Count 124 L MPV 10.1 Immature Gran % (Auto) 0.7 H Neut % (Auto) 83.7 H Lymph % (Auto) 6.7 L [place] % (Auto) 7.0 Eos % (Auto) 1.7 Baso % (Auto) 0.2 Lymph # (Auto) 0.66 L [place] # (Auto) 0.7 H Eos # (Auto) 0.2 Baso # (Auto) 0.0 Abs Immat Gran (auto) 0.07 H Absolute Neuts (auto) 8.2 H Absolute Nucleated RBC 0.000 Nucleated RBC % 0.0 Sodium 136 L Potassium 3.5 Chloride 105 Carbon Dioxide 32 H Anion Gap -1 L BUN 21 H Creatinine 0.80 Estim Creat Clear Calc 66 Estimated GFR > 60 Glucose 131 H POC Capillary Glucose 104 128 H Calcium 7.8 L Total Bilirubin 0.3 AST 12 L ALT 8 Alkaline Phosphatase 71 Total Protein 5.0 L Albumin 2.3 L 10/29/24 10/29/24 11:54 07:55 WBC RBC Hgb Hct MCV MCH MCHC RDW Plt Count MPV Immature Gran % (Auto) Neut % (Auto) Lymph % (Auto) [place] % (Auto) Eos % (Auto) Baso % (Auto) Lymph # (Auto) [place] # (Auto) Eos # (Auto) Baso # (Auto) Abs Immat Gran (auto) Absolute Neuts (auto) Absolute Nucleated RBC Nucleated RBC % Sodium Potassium Chloride Carbon Dioxide Anion Gap BUN Creatinine Estim Creat Clear Calc Estimated GFR Glucose POC Capillary Glucose 141 H 113 H Calcium Total Bilirubin AST ALT Alkaline Phosphatase Total Protein Albumin Procedures/Treatments: None Discharge Plan Discharge Attending physician on discharge: Kye Weaver Discharging Clinician: Cely Loyola Anticipated Discharge Date/Time: 10/30/24 07:39 Patient Disposition: MD Fdc/Asst Living Activity: as tolerated Diet: as tolerated and heart healthy Discharge Instructions: * Finish all your antibiotic as directed for your treatment of pneumonia * Follow up with your primary care doctor in 1 week Patient Instructions: Antibiotic Form, Heart Attack (GEN), Heart Healthy Diet (GEN), Bacterial Pneumonia (DC) Patient Language: Nepalese Stand Alone Forms: General Discharge Information, Half-Way Discharge Follow-up/Referrals: Jewel Aleman MD [Primary Care Provider] - 1 Week Discharge Medications: New cefdinir 300 mg Capsule 300 mg PO Q12HR Qty: 8 0RF guaifenesin [Mucus Relief ER] 600 mg Tablet Extended Release 12hr 1,200 mg PO Q12HR Qty: 20 0RF azithromycin [Zithromax] 250 mg Tablet 500 mg PO DAILY Qty: 8 0RF Continued ondansetron 8 mg Tablet,Disintegrating 8 mg PO Q8H PRN (Reason: Nausea) ropinirole 1 mg tablet 1 mg PO HS albuterol sulfate 90 mcg/actuation HFA aerosol inhaler 1 puff INHALATION Q4H PRN (Reason: Shortness Of Breath) acetaminophen 325 mg Tablet 650 mg PO Q6H PRN (Reason: Pain, Mild) ascorbic acid (vitamin C) 500 mg Tablet 500 mg PO BID bisacodyl [Dulcolax (bisacodyl)] 5 mg Tablet,Delayed Release (Dr/Ec) 10 mg PO BID lactulose 10 gram/15 mL Solution 20 g PO TID Adults Multivitamin 18 mg iron-400 mcg-25 mcg Tablet 1 tablet PO DAILY Pro-Stat Sugar Free 15 gram liquid 30 ml PO DAILY methadone 5 mg tablet 5 mg PO BID bisacodyl 10 mg Suppository 10 mg RECTAL DAILY PRN (Reason: Constipation) Qty: 12 0RF sucralfate [Carafate] 1 gram Tablet 1 g PO TID levothyroxine 25 mcg Tablet 25 mcg PO DAILY polyethylene glycol 3350 [Miralax] 17 gram powder in packet 17 g PO DAILY PRN (Reason: Constipation) Tigan 100 mg/mL solution 100 mg IM ONCE PRN (Reason: migraines) levalbuterol HCl 1.25 mg/3 mL solution for nebulization 1.25 mg inhalation Q6H PRN (Reason: SOB) pantoprazole 40 mg tablet,delayed release (DR/EC) 40 mg PO QAM Qty: 30 0RF bupropion HCl 300 mg tablet extended release 24 hr 150 mg PO DAILY olanzapine 5 mg Tablet 5 mg PO BID fluoxetine 20 mg Capsule 20 mg PO DAILY potassium chloride 20 mEq Tablet Extended Release 20 meq PO BID ipratropium bromide 0.02 % Solution 0.5 mg inhalation TID Qty: 75 0RF Symbicort 2 puff inhalation BID Qty: 1 0RF clopidogrel [Plavix] 75 mg Tablet 75 mg PO DAILY diphenhydramine HCl [Benadryl Allergy] 25 mg Tablet 25 mg PO TID PRN (Reason: allergies) mirtazapine [Remeron] 15 mg Tablet 15 mg PO HS trospium 20 mg Tablet 20 mg PO BID Rx Instructions: administer on an empty stomach Eliquis 5 mg Tablet 10 mg PO Q12HR Qty: 5 0RF Rx Instructions: last dose 10/15 9 pm Eliquis 5 mg Tablet 5 mg PO Q12HR Qty: 90 0RF Rx Instructions: start taking 5 mg twice a day on 10/16 bisacodyl [Laxative (bisacodyl)] 5 mg Tablet,Delayed Release (Dr/Ec) 5 mg PO QAM Qty: 30 0RF tamsulosin 0.4 mg capsule 0.4 mg PO HS gabapentin 100 mg capsule 100 mg PO TID Qty: 90 0RF Date of admission: 10/27/24 15:09 Primary Care Provider: Jewel lAeman Admitting Provider: Sebastian Lui Attending physician on admission: Cely Loyola Condition: Improved Quality VTE Prophylaxis VTE prophylaxis: pharmacologic ordered (on apixaban) Hospitalist MIPS Heart Failure (Exclusion) Patient has history of Heart Transplant or Left Ventricular Assistive Device?: No IF YES, STOP HERE Heart Failure (Qualifier) Patient has current or prior documentation of LVEF less than or equal to 40%, ormod/servere depressed LVSF?: No IF NO, STOP HERE This report may have been done utilizing a voice recognition system. Attempts have been made to correct errors. However, there may be uncorrected grammatical,spelling, and recognition errors present. Report Initialized date/time: Cely Loyola APRN 10/30/24802 Electronically signed by: Cely Loyola APRN 10/30/24906 History & Physical Note Author Yocasta [facility] Note Date/Time October 27, 2024 10:20pm [place] [address] [place] [address] History & Physical Report Signed Patient: Farhan Armstrong MR#: [id number] : 1945 Acct:[id number] Age: 78 ADM Date: 10/27/24 Loc: [facility]U 210-[address]: Sebastian Lui M.D. cc: Dre Lui MD; Jewel Aleman MD; Fiordaliza Melissa PA-C~ H&P: HPI History of Present Illness Date/Time: 10/27/24 13:00 Chief Complaint: Shortness of breath. Narrative: This is an 78-year-old male with history of non-small cell lung cancer, chronic obstructive pulmonary disease, obstructive sleep apnea for which he has historically been noncompliant with CPAP, chronic respiratory failure with hypoxia on home oxygen, dysphagia with history of aspiration pneumonia, coronaryartery disease, heart failure with preserved ejection fraction, paroxysmal atrial fibrillation on chronic anticoagulation, diet-controlled type 2 diabetes mellitus, and hypothyroidism who presented to the emergency department via EMS for evaluation of shortness of breath. The shortness of breath started rather suddenly this morning after an episode of emesis; he states he was not eating atthe time and that occurred about the same time as when he awoke from sleep. He is otherwise feeling okay. He denies feeling feverish and also denies sinus congestion, sore throat, productive cough, chest pain, pleuritic pain, abdominalpain, and nausea. In the ED: EMS started him on CPAP and he was transitioned to BiPAP on arrival. Temperature was as high as 100.5??? F. he has since been weaned to his chronic oxygen requirement. Blood pressures have been stable. Labs are significant for WBC count of 7.5, hemoglobin 13.5, D-dimer 2.78, BUN 23, creatinine 0.90, lacticacid 2.7, proBNP 427, troponin less than 0.012. Chest CTA showed no evidence of PE, dissection, or aneurysm. The he was found to have extensive left lower lobe consolidation and patchy involvement in the lingula and right lower lobe suspicious for multifocal pneumonia as well as a stable dense consolidation volume loss of the right upper lobe. He was given a dose of ceftriaxone, azithromycin, and meropenem and is being admitted in this setting. Review of Systems Review of Systems: 12 systems were reviewed and are negativ e except for as per HPI. [facility] Past Medical History Medical History (Updated 10/27/24 @ 22:04 by Yocasta Cole PA-C) Chronic anticoagulation Heart failure with preserved ejection fraction Type 2 diabetes mellitus Major depressive disorder, recurrent, unspecified Hypothyroidism Benign prostatic hyperplasia Obstructive sleep apnea Type 2 diabetes mellitus Chronic obstructive pulmonary disease Sacral decubitus ulcer Aortic valve stenosis Coronary artery disease (2019) Non-STEMI - left heart cath showed mild coronary artery disease with severe LV dysfunction EF 20% with possible underlying nonischemic cardiomyopathy, no PCI. Non-small cell carcinoma of lung Status post chemo radiation. Fibromyalgia Depression Arthritis (03/26/19) Restless legs syndrome Atrial fibrillation with controlled ventricular rate Mixed hyperlipidemia Surgical History Surgical History History of hernia repair Umbilical hernia repair. Bilateral inguinal hernia repairs. Family History Family History Sibling Patient's sister is in good health Hypertension Family history of heart disease in male family member before age 55 Mother Family history of heart disease in male family member before age 55 Patient's mother is Family history of congestive heart failure, Onset Age: 70 Father Patient's father is Acute myocardial infarction, Onset Age: 62 Grandparent Depression Family history of arthritis Family history of malignant neoplasm of breast Family history of heart disease in male family member before age 55 Other Cerebrovascular accident Family history of cardiovascular disease Social History Social History (Updated 10/27/24 @ 22:00 by Yocasta Cole PA-C) Social History: Code status: Do not resuscitate. Son Harshal Armstrong is POA and primary contact. [phone] Smoking packs per day: 3 Smoking cigarettes per day: 60.0 Years smoked: 30 Smoking pack-years: 90.00 Smoking status: Former smoker Tobacco type: cigarettes Second hand tobacco smoke exposure: Yes Alcohol intake: never Substance use: never Substance use type: does not use Do You Feel Safe in your Home?: Yes Lack of Transportation: No Lack of Food: Never True Current Housing: I Have Housing Concerned About Future Housing: No Difficulty Paying Gas/Electric Bills: No Difficulty Paying for Meds: No Currently Unemployed: No Education: Decline to Answer Difficulty w/ Childcare or Family Care: No Living arrangements: shelter Additional living arrangements comments: [facility] [employer] Occupation/Education: retired Additional occupation/education comments: previously in [employer] Spiritual care concerns: No Meds Home Medications and Allergies Home Medications ???Medication ???Instructions ???Recorded ???Confirmed ???Type ropinirole 1 mg tablet 1 mg PO HS 12/18/19 10/05/24 History bupropion HCl 300 mg 24 hr tablet, 150 mg PO DAILY 03/09/21 10/05/24 History extended release tamsulosin 0.4 mg capsule 0.4 mg PO HS 02/26/22 10/05/24 History gabapentin 100 mg capsule 100 mg PO TID #90 caps 06/12/22 10/05/24 Rx albuterol sulfate 90 mcg/actuation 1 puff inhalation Q4H PRN 07/27/22 10/05/24 History aerosol inhaler Shortness Of Breath ondansetron 8 mg disintegrating 8 mg PO Q8H PRN Nausea 08/10/22 10/05/24 History tablet Pro-Stat Sugar Free 30 ml PO DAILY 03/23/23 10/05/24 History acetaminophen 325 mg tablet 650 mg PO Q6H PRN Pain, Mild 03/23/23 10/05/24 History ascorbic acid (vitamin C) 500 mg 500 mg PO BID 03/23/23 10/05/24 History tablet bisacodyl 5 mg tablet,delayed 10 mg PO BID 03/23/23 10/05/24 History release (Dulcolax (bisacodyl)) lactulose 10 gram/15 mL oral 20 g PO TID 03/23/23 10/05/24 History solution methadone 5 mg tablet 5 mg PO BID 03/23/23 10/05/24 History multivit with minerals-iron 18 1 tablet PO DAILY 03/23/23 10/05/24 History mg-folic ac 400 mcg-vit K 25 mcg tablet (Adults Multivitamin) bisacodyl 10 mg rectal suppository 10 mg RECTAL DAILY PRN 04/01/23 10/05/24 Rx Constipation #12 ea levalbuterol HCl 1.25 mg/3 mL 1.25 mg inhalation Q6H PRN SOB 07/23/23 10/05/24 History solution for nebulization levothyroxine 25 mcg tablet 25 mcg PO DAILY 07/23/23 10/05/24 History polyethylene glycol 3350 17 gram 17 g PO DAILY PRN Constipation 07/23/23 10/05/24 History oral powder packet (Miralax) sucralfate 1 gram tablet (Carafate) 1 g PO TID 07/23/23 10/05/24 History trimethobenzamide 100 mg/mL 100 mg IM ONCE PRN migraines 07/23/23 10/05/24 History intramuscular solution (Tigan) pantoprazole 40 mg tablet,delayed 40 mg PO QAM #30 tabs 08/12/23 10/05/24 Rx release fluoxetine 20 mg capsule 20 mg PO DAILY 06/28/24 10/05/24 History olanzapine 5 mg tablet 5 mg PO BID 06/28/24 10/05/24 History Symbicort 2 puff inhalation BID #1 applicator 07/04/24 10/05/24 Rx ipratropium bromide 0.02 % 0.5 mg (2.5 mL) inhalation TID #75 07/04/24 10/05/24 Rx solution for inhalation mL potassium chloride 20 mEq 20 meq PO BID 07/04/24 10/05/24 History tablet,extended release clopidogrel 75 mg tablet (Plavix) 75 mg PO DAILY 08/25/24 10/05/24 History diphenhydramine HCl 25 mg tablet 25 mg PO TID PRN allergies 08/25/24 10/05/24 History (Benadryl Allergy) mirtazapine 15 mg tablet (Remeron) 15 mg PO HS 08/25/24 10/05/24 History trospium 20 mg tablet 20 mg PO BID 08/25/24 10/05/24 History apixaban 5 mg tablet (Eliquis) 5 mg PO Q12HR #90 tabs 10/13/24 Rx apixaban 5 mg tablet (Eliquis) 10 mg (2 x 5 mg) PO Q12HR #5 tabs 10/13/24 Rx bisacodyl 5 mg tablet,delayed 5 mg PO QAM #30 tabs 10/13/24 Rx release (Laxative (bisacodyl)) Allergies Allergy/AdvReac Type Severity Reaction Status Date / Time Penicillins Allergy Unknown SHORTNESS Verified 10/05/24 08:35 OF BREATH Vital Signs Vital Signs - 24 hr 10/27/24 08:23 10/27/24 09:01 10/27/24 09:50 Temperature Pulse Rate 123 H 117 H Respiratory Rate 20 14 Blood Pressure 103/82 108/74 Pulse Oximetry 95 Oxygen Delivery BiPAP 10/27/24 09:54 10/27/24 10:58 10/27/24 11:20 Temperature 97.6 F Pulse Rate 116 H 104 H 102 H Respiratory Rate 26 H 25 H 16 Blood Pressure 107/68 Pulse Oximetry 95 96 97 Oxygen Delivery BiPAP BiPAP 10/27/24 12:07 10/27/24 12:26 10/27/24 12:37 Temperature 100.2 F H 100.2 F H Pulse Rate 104 H 104 H Respiratory Rate 15 24 H Blood Pressure 170/72 H Pulse Oximetry 97 97 Oxygen Delivery BiPAP Exam Narrative: General: Chronically ill-appearing male sitting up in bed on BiPAP in no distress. Weight: 86 kg. BMI: 27.2. HEENT: PERRL, EOMI. Sclera anicteric. Oral mucosa appears tacky through the BiPAP. Neck: Supple. Supple. No obvious JVD. Respiratory: Tolerating BiPAP. He does not appear in distress. Lung sounds are diminished at the left base with scattered crackles. Cardiovascular: Regular rate and rhythm with S1-S2. Systolic murmur at the upper sternal border. Gastrointestinal: Abdomen is soft, nontender, and nondistended with positive bowel sounds. Skin: Warm and dry. Extremities: No cyanosis, clubbing, or edema. Radial and pedal pulses intact. Neurological: Alert. Cranial nerves 2-12 are grossly intact. He has some tremors of the hands. No gross focal deficits to casual conversation. Psychiatric: Pleasant and cooperative with normal mood and affect. H&P: Results Labs Labs: BMP 10/27/24 06:28 Sodium 140 Potassium 4.6 Chloride 105 Carbon Dioxide 28 BUN 23 H D Creatinine 0.90 Glucose 210 H Calcium 9.1 Cardiac Enzymes 10/27/24 Range/Units 06:28 Troponin I < 0.012 (0.000-0.034) ng/mL Liver Function 10/27/24 Range/Units 06:28 Total Bilirubin 0.7 (0.2-1.3) mg/dL AST 19 (17-59) U/L ALT 11 (6-50) U/L Alkaline Phosphatase 92 (38-126) U/L Albumin 3.3 L (3.5-5.1) g/dL Urine 10/27/24 Range/Units 08:20 Urine Color Dark yellow (Yellow) Urine Appearance Clear (Clear) Urine pH 5.0 (5.0-9.0) Ur Specific [place] 1.033 (1.001-1.035) Urine Protein 1+ H (Negative) mg/dL Urine Glucose (UA) Negative (Negative) mg/dL Impressions Chest CTA 10/27/24 11:27 Impression: No evidence of pulmonary embolus, aortic dissection, or aortic aneurysm. Extensive left lower lobe consolidation is more patchy involvement in the lingula and right lower lobe. Findings are suspicious for multifocal pneumonia. Stable dense consolidation volume loss of the right upper lobe, which could reflect chronic right upper lobe atelectasis. Minimal left pleural effusion. Assessment and Plan Assessment and plan (1) Sepsis: Code(s): A41.9 - Sepsis, unspecified organism Status: Acute (2) Multifocal pneumonia: Code(s): J18.9 - Pneumonia, unspecified organism Status: Acute (3) Acute and chronic respiratory failure with hypoxia: Code(s): J96.21 - Acute and chronic respiratory failure with hypoxia Status: Acute (4) Heart failure with preserved ejection fraction: Code(s): I50.30 - Unspecified diastolic (congestive) heart failure Status: Acute (5) Chronic anticoagulation: Code(s): Z79.01 - prison (current) use of anticoagulants Status: Acute (6) Obstructive sleep apnea: Code(s): G47.33 - Obstructive sleep apnea (adult) (pediatric) Status: Acute Plan The patient presented to the emergency department for evaluation of shortness ofbreath following an episode of emesis as detailed in HPI. Labs, imaging, EKG, and all reports were personally reviewed. He technically meets sepsis criteria with fever, tachycardia, tachypnea, and elevated lactic acid level. Blood pressures have been stable. Blood cultures are pending. He received azithromycin, ceftriaxone, and meropenem in the emergency department. Switch to ceftriaxone and metronidazole. Doubt atypical pneumonia. Sputum culture has beenordered. Initiate aspiration precautions. Continue minced and moist diet with mildly thickened liquids and consult speech therapy again. He appears euvolemic on exam. At this time he is at his baseline oxygen requirement. Continue BiPAP p.r.n. and while asleep. Diabetes is diet controlled with a recent A1c of 4.5% though today's glucose was 210. Initiate sliding scale insulin, Accu-Cheks, and hypoglycemic protocol. His home medications will be reviewed and resumed as appropriate. Findings and treatment plan were discussed with the patient. Questions were solicited and answered to satisfaction. The patient's medical management will be taken over by the hospitalist team in a.m. Quality VTE Prophylaxis VTE prophylaxis: pharmacologic ordered (on apixaban) The patient has been admitted under observation status. Hospitalist [facility] Advance Care Plan I have confirmed that the patient's Advanced Care Plan is present, code status is documented, or surrogate decision maker is listed in patient medical record.:Yes Medication Reconciliation I have utilized all available resources to obtain, update and review the patients current medications (includes all prescriptions, OTC, herbals, cannabis, and nutritional supplements).: Yes This report may have been done utilizing a voice recognition system. Attempts have been made to correct errors. However, there may be uncorrected grammatical,spelling, and recognition errors present. Report Initialized date/time: Yocasta Cole PA-C 10/27/24 / 1299 Electronically signed by: Yocasta Cole PA-C 10/27/240 Progress Note Author Aracely [facility] Note Date/Time October 27, 2024 6:16pm [facility] [address] [place] [address] Emergency Room Visit Note Signed Patient: Farhan Armstrong MR#: [id number] : 1945 Acct:[id number] Age: 78 ADM Date: 10/27/24 Loc: [facility] VB6-[address]: Sebastian Lui M.D. cc: Aracely Courtney MD; Dre Lui MD; Jewel Aleman MD; Fiordaliza Melissa PA-C~ HPI - SOB/Dyspnea General Chief Complaint: Shortness of Breath/Dyspnea <Aracely Courtney MD - Last Filed: 10/27/24 10:33> Stated Complaint: dyspnea <Aracely Courtney MD - Last Filed: 10/27/24 10:33> Time Seen by Provider: 10/27/24 08:15 <Aracely Courtney MD - Last Filed: 10/27/24 10:33> Source: patient and EMS <Aracely Courtney MD - Last Filed: 10/27/24 10:33> Mode of arrival: EMS <Aracely Courtney MD - Last Filed: 10/27/24 10:33> Limitations: no limitations <Aracely Courtney MD - Last Filed: 10/27/24 10:33> History of Present Illness HPI Narrative: Patient presents with complaint of shortness of breath. Was reported thatthis started acutely but the patient states that he remembers throwing up and then became short of breath. He otherwise denies any cough, fevers, or chills although it was reported that he had a temperature of 99???. He is alert and oriented x3. He was found to be hypoxic in the 80s for EMS. He has left-sided chest pain. At baseline he uses 2 L supplemental oxygen via nasal cannula for diagnosis of COPD. EMS placed him on CPAP. In regards to cardiac risk factors: History of hypertension. Former smoker although quit 25 years ago. Denies history of hyperlipidemia. He is a diabetic. He does not know if he has a prior history of a myocardial infarction/TIA/CVA. Does not know if he has a family history of first-degree relative having a myocardial infarction before the age of 65. <Aracely Courtney MD - Last Filed: 10/27/24 10:33> Related Data Home Medications: Home Medications ???Medication ???Instructions ???Recorded ???Confirmed ???Last Taken ???Type ropinirole 1 mg tablet 1 mg PO HS 12/18/19 10/05/24 Unknown History bupropion HCl 300 mg 24 hr tablet, 150 mg PO DAILY 03/09/21 10/05/24 Unknown History extended release tamsulosin 0.4 mg capsule 0.4 mg PO HS 02/26/22 10/05/24 Unknown History albuterol sulfate 90 mcg/actuation 1 puff inhalation Q4H PRN 07/27/22 10/05/24 Unknown History aerosol inhaler Shortness Of Breath ondansetron 8 mg disintegrating 8 mg PO Q8H PRN Nausea 08/10/22 10/05/24 UnknownHistory tablet Pro-Stat Sugar Free 30 ml PO DAILY 03/23/23 10/05/24 Unknown History acetaminophen 325 mg tablet 650 mg PO Q6H PRN Pain, Mild 03/23/23 10/05/24 Unknown History ascorbic acid (vitamin C) 500 mg 500 mg PO BID 03/23/23 10/05/24 Unknown History tablet bisacodyl 5 mg tablet,delayed 10 mg PO BID 03/23/23 10/05/24 Unknown History release (Dulcolax (bisacodyl)) lactulose 10 gram/15 mL oral 20 g PO TID 03/23/23 10/05/24 Unknown History solution methadone 5 mg tablet 5 mg PO BID 03/23/23 10/05/24 Unknown History multivit with minerals-iron 18 1 tablet PO DAILY 03/23/23 10/05/24 Unknown History mg-folic ac 400 mcg-vit K 25 mcg tablet (Adults Multivitamin) levalbuterol HCl 1.25 mg/3 mL 1.25 mg inhalation Q6H PRN SOB 07/23/23 10/05/24 Unknown History solution for nebulization levothyroxine 25 mcg tablet 25 mcg PO DAILY 07/23/23 10/05/24 07/23/23 History polyethylene glycol 3350 17 gram 17 g PO DAILY PRN Constipation 07/23/23 10/05/24 Unknown History oral powder packet (Miralax) sucralfate 1 gram tablet (Carafate) 1 g PO TID 07/23/23 10/05/24 Unknown History trimethobenzamide 100 mg/mL 100 mg IM ONCE PRN migraines 07/23/23 10/05/24 Unknown History intramuscular solution (Tigan) fluoxetine 20 mg capsule 20 mg PO DAILY 06/28/24 10/05/24 Unknown History olanzapine 5 mg tablet 5 mg PO BID 06/28/24 10/05/24 Unknown History potassium chloride 20 mEq 20 meq PO BID 07/04/24 10/05/24 Unknown History tablet,extended release clopidogrel 75 mg tablet (Plavix) 75 mg PO DAILY 08/25/24 10/05/24 Unknown History diphenhydramine HCl 25 mg tablet 25 mg PO TID PRN allergies 08/25/24 10/05/24 Unknown History (Benadryl Allergy) mirtazapine 15 mg tablet (Remeron) 15 mg PO HS 08/25/24 10/05/24 Unknown History trospium 20 mg tablet 20 mg PO BID 08/25/24 10/05/24 Unknown History <Aracely Courtney MD - Last Filed: 10/27/24 10:33> Allergies/Adverse Reactions: Allergies Allergy/AdvReac Type Severity Reaction Status Date / Time Penicillins Allergy Unknown SHORTNESS Verified 10/05/24 08:35 OF BREATH <Aracely Courtney MD - Last Filed: 10/27/24 10:33> Review of Systems 2 Review of Systems: All systems reviewed & are unremarkable except as noted in HPI and below <Fiordaliza Melissa PA-C - Last Filed: 10/27/24 14:25> [facility] Past Medical History Medical History: Medical History (Updated 10/27/24 @ 14:25 by Fiordaliza Melissa PA-C) Major depressive disorder, recurrent, unspecified Acute cough Pneumonia, unspecified organism Acute respiratory failure with hypoxia Lung cancer Hypothyroidism Benign prostatic hyperplasia Obstructive sleep apnea Type 2 diabetes mellitus Chronic obstructive pulmonary disease Sacral decubitus ulcer Aortic valve stenosis Coronary artery disease (2019) Non-STEMI - left heart cath showed mild coronary artery disease with severe LV dysfunction EF 20% with possible underlying nonischemic cardiomyopathy, no PCI. Non-small cell carcinoma of lung Status post chemo radiation. Diabetes mellitus Fibromyalgia Chronic congestive heart failure Diabetic polyneuropathy associated with type 2 diabetes mellitus Depression Arthritis (03/26/19) Restless legs syndrome Atrial fibrillation with controlled ventricular rate Mixed hyperlipidemia <Aracely Courtney MD - Last Filed: 10/27/24 10:33> Surgical History Surgical History: Surgical History History of hernia repair Umbilical hernia repair. Bilateral inguinal hernia repairs. <Aracely Courtney MD - Last Filed: 10/27/24 10:33> Family History Family History: Family History Sibling Patient's sister is in good health Hypertension Family history of heart disease in male family member before age 55 Mother Family history of heart disease in male family member before age 55 Patient's mother is Family history of congestive heart failure, Onset Age: 70 Father Patient's father is Acute myocardial infarction, Onset Age: 62 Grandparent Depression Family history of arthritis Family history of malignant neoplasm of breast Family history of heart disease in male family member before age 55 Other Cerebrovascular accident Family history of cardiovascular disease <Aracely Courtney MD - Last Filed: 10/27/24 10:33> Social History Social History: Social History (Updated 10/27/24 @ 09:41 by Aracely Courtney MD) Social History: Code status: Modified code. No meds, no CPR. Okay with intubation. VERSUS DNR per shelter documentation though POLST not dated Son Harshal Armstrong is POA and primary contact. [phone] Smoking packs per day: 3 Smoking cigarettes per day: 60.0 Years smoked: 30 Smoking pack-years: 90.00 Smoking status: Former smoker Tobacco type: cigarettes Second hand tobacco smoke exposure: Yes Alcohol intake: never Substance use: never Substance use type: does not use Do You Feel Safe in your Home?: Yes Lack of Transportation: No Lack of Food: Never True Current Housing: I Have Housing Concerned About Future Housing: No Difficulty Paying Gas/Electric Bills: No Difficulty Paying for Meds: No Currently Unemployed: No Education: Decline to Answer Difficulty w/ Childcare or Family Care: No Living arrangements: shelter Additional living arrangements comments: [facility] [employer] Occupation/Education: retired Additional occupation/education comments: previously in [employer] Spiritual care concerns: No <Aracely Courtney MD - Last Filed: 10/27/24 10:33> Exam 2 Narrative: GENERAL:, well-nourished, in acute respiratory distress. HEAD: Normocephalic, atraumatic. EYES: Non injected, non icteric ENT: Nares clear, no rhinorrhea or epistaxis. NECK: Supple. CHEST: Speaking in 5-6 word sentences. Respiratory distress with tachypnea. CPAP transitioned to bipap. Coarse expiratory breath sounds with inspiratory wheezes bilaterally. HEART: Tachycardic rate and rhythm. . ABDOMEN: Soft, nondistended. EXTREMITIES: Normal range of motion. No lower extremity edema. SKIN: Warm, dry, no rash. NEURO: No focal deficits. Alert and oriented x3. PSYCH: Normal mood and affect. <Aracely Courtney MD - Last Filed: 10/27/24 10:33> Course Course Emergency Course: patient updated on workup and need for admission <Fiordaliza Melissa PA-C - Last Filed: 10/27/24 14:25> Consultations Consultation #1: Spoke with hospitalist about patient and workup who accepts admission <Fiordaliza Melissa PA-C - Last Filed: 10/27/24 14:25> Date: 10/27/24 <Fiordaliza Melissa PA-C - Last Filed: 10/27/24 14:25> Vital Signs Vital signs: Vital Signs Oxygen Delivery BiPAP 10/27/24 08:23 Temperature 100.5 F H 10/27/24 14:06 Pulse Rate 103 H 10/27/24 14:06 Respiratory Rate 22 H 10/27/24 14:06 Blood Pressure 106/69 10/27/24 14:06 Pulse Oximetry 96 10/27/24 14:06 Oxygen Delivery BiPAP 10/27/24 13:24 <Aracely Courtney MD - Last Filed: 10/27/24 10:33> Vital Signs Oxygen Delivery BiPAP 10/27/24 08:23 Temperature 100.5 F H 10/27/24 14:06 Pulse Rate 103 H 10/27/24 14:06 Respiratory Rate 22 H 10/27/24 14:06 Blood Pressure 106/69 10/27/24 14:06 Pulse Oximetry 96 10/27/24 14:06 Oxygen Delivery BiPAP 10/27/24 13:24 <Fiordaliza Melissa PA-C - Last Filed: 10/27/24 14:25> MDM - SOB/Dyspnea MDM Narrative Medical decision making narrative: Patient presents with reported shortness of breath that he states started acutely. It was reported that there were no inciting or previous events by the facility although patient states that he remembers throwing up before this. Reportedly he was borderline febrile with a temperature of 99???. Rectal temperature was requested by nursing staff to obtain. He otherwise is tachypneic and tachycardic. Patient has coarse expiratory sounds with inspiratory wheezes. History of COPD so will start with treating for this while evaluating other etiologies. HEART SCORE History 2 highly suspicious 1 moderately suspicious 0 slightly suspicious History score [address] depression/elevation not due to LBBB, LVH, or digoxin [address] depression but LBBB, LVH, nonspecific repolarization changes 0 normal ECG score 0 Age 2 >/= 65 1 45-64 0 <45 Age score 2 Risk factors (HTN, hypercholesterolemia, DM, obesity with BMI >30, current smoker or cessation </=3mo), positive fam hx with parent or sibling with CVD before age 65, atherosclerotic disease (prior SC, PCI/CABG, CVA/TIA, or peripheral arterial disease) 2 >/= 3 risk factors or history of atherosclerotic dz 1 - 1-2 risk factors 0 no known risk factors Risk factor score 2 (HTN, DM, HLD) Initial Troponin 2 >3 times normal limit 1 1-3 times normal limit 0 less than or equal to normal limit Troponin score 0 Total HEART Score 4 BAP-65 Score for Acute Exacerbation of COPD (predicts mortality in acute COPD exacerbation) BUN >/=25 mg/dL (No 0, Yes +1): 0 AMS (No 0, Yes +1): 0 Pulse >/=109 beats/min (No 0, Yes +1): 1 Age, years: 41-64 versus >/= 65: Result: Class III BAP 1, 2.2% inhospital mortality, 1.2% requiring intubation within 48 hours. Recommend inpatient admission. Patient's dimer is elevated. CT PE studies ordered. Patient signed out to PA pending this study being performed. Will need to be admitted after this, likely IMU given still on BIPAP, unless able to be downtitrated on readmission. <Aracely Courtney MD - Last Filed: 10/27/24 10:33> Patient presents with reported shortness of breath that he states started acutely. It was reported that there were no inciting or previous events by the facility although patient states that he remembers throwing up before this. Reportedly he was borderline febrile with a temperature of 99???. Rectal temperature was requested by nursing staff to obtain. He otherwise is tachypneic and tachycardic. Patient has coarse expiratory sounds with inspiratory wheezes. History of COPD so will start with treating for this while evaluating other etiologies. HEART SCORE History 2 highly suspicious 1 moderately suspicious 0 slightly suspicious History score [address] depression/elevation not due to LBBB, LVH, or digoxin [address] depression but LBBB, LVH, nonspecific repolarization changes 0 normal ECG score 0 Age 2 >/= 65 1 45-64 0 <45 Age score 2 Risk factors (HTN, hypercholesterolemia, DM, obesity with BMI >30, current smoker or cessation </=3mo), positive fam hx with parent or sibling with CVD before age 65, atherosclerotic disease (prior SC, PCI/CABG, CVA/TIA, or peripheral arterial disease) 2 >/= 3 risk factors or history of atherosclerotic dz 1 - 1-2 risk factors 0 no known risk factors Risk factor score 2 (HTN, DM, HLD) Initial Troponin 2 >3 times normal limit 1 1-3 times normal limit 0 less than or equal to normal limit Troponin score 0 Total HEART Score 4 BAP-65 Score for Acute Exacerbation of COPD (predicts mortality in acute COPD exacerbation) BUN >/=25 mg/dL (No 0, Yes +1): 0 AMS (No 0, Yes +1): 0 Pulse >/=109 beats/min (No 0, Yes +1): 1 Age, years: 41-64 versus >/= 65: Result: Class III BAP 1, 2.2% inhospital mortality, 1.2% requiring intubation within 48 hours. Recommend inpatient admission. Patient's dimer is elevated. CT PE studies ordered. Patient signed out to PA pending this study being performed. Will need to be admitted after this, likely IMU given still on BIPAP, unless able to be downtitrated on readmission. CTA showing no PE, dissection or aneurysm. Shows multifocal pneumonia. Minimalleft pleural effusion. Spoke with hospitalist about patient and workup who accepts admission <Fiordaliza Melissa PA-C - Last Filed: 10/27/24 14:25> Differential Diagnosis Differential diagnosis: Likely acute exacerbation of chronic obstructive airways disease, community acquired pneumonia, pulmonary embolism and other (pneumonitis, pneumonia) <Aracely Courtney MD - Last Filed: 10/27/24 10:33> Lab Data Attestation: I reviewed the patient's lab results. <Aracely Courtney MD - Last Filed: 10/27/24 10:33> Lab results narrative: Hyperglycemia without anion gap acidosis <Aracely Courtney MD - Last Filed: 10/27/24 10:33> Result diagrams: 10/27/24 06:28 <Aracely Courtney MD - Last Filed: 10/27/24 10:33> Labs: Lab Results 10/27/24 10/27/24 10/27/24 Range/Units 06:27 06:28 08:20 Sodium 140 (137-145) mmol/L Potassium 4.6 (3.4-5.0) mmol/L Chloride 105 (98-107) mmol/L Carbon Dioxide 28 (22-30) mmol/L Anion Gap 7 (4-12) mmol/L BUN 23 H D (9-20) mg/dL Creatinine 0.90 (0.7-1.3) mg/dL Estim Creat Clear Calc Not Reportable Estimated GFR > 60 (59 - ) Glucose 210 H (65-110) mg/dL Lactic Acid 2.7 H 2.7 H (0.7-2.0) mmol/L Calcium 9.1 (8.4-10.2) mg/dL Magnesium 1.6 (1.6-2.3) mg/dL Total Bilirubin 0.7 (0.2-1.3) mg/dL AST 19 (17-59) U/L ALT 11 (6-50) U/L Alkaline Phosphatase 92 (38-126) U/L Troponin I < 0.012 (0.000-0.034) ng/mL NT-Pro-B Natriuret Pep 427 H (19.9-100) pg/mL Total Protein 7.0 (6.3-8.2) g/dL Albumin 3.3 L (3.5-5.1) g/dL Urine Color Dark yellow (Yellow) Urine Appearance Clear (Clear) Urine pH 5.0 (5.0-9.0) Ur Specific [place] 1.033 (1.001-1.035) Urine Protein 1+ H (Negative) mg/dL Urine Glucose (UA) Negative (Negative) mg/dL Urine Ketones 1+ H (Negative) mg/dL Ur Blood (Man) Negative (Negative) Urine Nitrate Negative (Negative) Urine Bilirubin Negative (Negative) Urine Urobilinogen 1.0 (<2.0) mg/dL Add Ur Microanalysis Reviewed Leukocyte Esterase Rfl 1+ H (Negative) NICKY/UL Urine RBC 0-2 (0-2) /hpf Urine WBC 11-20 H (0-3) /hpf Ur Squamous Epith Cells Few (Few) /hpf Calcium Oxalate Crystal Present (None) /hpf Urine Bacteria None seen /hpf Urine Casts 11-20 <Aracely Courtney MD - Last Filed: 10/27/24 10:33> Lab Results 10/27/24 10/27/24 10/27/24 Range/Units 06:27 06:28 08:20 Sodium 140 (137-145) mmol/L Potassium 4.6 (3.4-5.0) mmol/L Chloride 105 (98-107) mmol/L Carbon Dioxide 28 (22-30) mmol/L Anion Gap 7 (4-12) mmol/L BUN 23 H D (9-20) mg/dL Creatinine 0.90 (0.7-1.3) mg/dL Estim Creat Clear Calc Not Reportable Estimated GFR > 60 (59 - ) Glucose 210 H (65-110) mg/dL Lactic Acid 2.7 H 2.7 H (0.7-2.0) mmol/L Calcium 9.1 (8.4-10.2) mg/dL Magnesium 1.6 (1.6-2.3) mg/dL Total Bilirubin 0.7 (0.2-1.3) mg/dL AST 19 (17-59) U/L ALT 11 (6-50) U/L Alkaline Phosphatase 92 (38-126) U/L Troponin I < 0.012 (0.000-0.034) ng/mL NT-Pro-B Natriuret Pep 427 H (19.9-100) pg/mL Total Protein 7.0 (6.3-8.2) g/dL Albumin 3.3 L (3.5-5.1) g/dL Urine Color Dark yellow (Yellow) Urine Appearance Clear (Clear) Urine pH 5.0 (5.0-9.0) Ur Specific [place] 1.033 (1.001-1.035) Urine Protein 1+ H (Negative) mg/dL Urine Glucose (UA) Negative (Negative) mg/dL Urine Ketones 1+ H (Negative) mg/dL Ur Blood (Man) Negative (Negative) Urine Nitrate Negative (Negative) Urine Bilirubin Negative (Negative) Urine Urobilinogen 1.0 (<2.0) mg/dL Add Ur Microanalysis Reviewed Leukocyte Esterase Rfl 1+ H (Negative) NICKY/UL Urine RBC 0-2 (0-2) /hpf Urine WBC 11-20 H (0-3) /hpf Ur Squamous Epith Cells Few (Few) /hpf Calcium Oxalate Crystal Present (None) /hpf Urine Bacteria None seen /hpf Urine Casts 11-20 <Fiordaliza Melissa PA-C - Last Filed: 10/27/24 14:25> Imaging Data My impression: (Unable to load images to perform independent interpretation) <Aracely Courtney MD - Last Filed: 10/27/24 10:33> Radiologist's impression: No change from previous examination. <Aracely Courtney MD - Last Filed: 10/27/24 10:33> No change from previous examination. ITS Impressions Chest CTA 10/27/24 11:27 Impression: No evidence of pulmonary embolus, aortic dissection, or aortic aneurysm. Extensive left lower lobe consolidation is more patchy involvement in the lingula and right lower lobe. Findings are suspicious for multifocal pneumonia. Stable dense consolidation volume loss of the right upper lobe, which could reflect chronic right upper lobe atelectasis. Minimal left pleural effusion. <Fiordaliza Melissa PA-C - Last Filed: 10/27/24 14:25> ECG Data EKG #1: Attestation: I personally reviewed and interpreted this ECG as follows: <Aracely Courtney MD - Last Filed: 10/27/24 10:33> ECG completion date: 10/27/24 <Aracely Courtney MD - Last Filed: 10/27/24 10:33> ECG completion time: 05:46 <Aracely Courtney MD - Last Filed: 10/27/24 10:33> Interpretation: Sinus tachycardia at a rate of 121 beats per minute. MS interval isprolonged at 226 milliseconds consistent with a first-degree AV block. QRS 106. QT/QTC 336/408. Baseline quality of this EKG is poor limiting full interpretation. 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 Attempts have been made to correct errors. However, there may be uncorrected grammatical,spelling, and recognition errors present. 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 * White blood cell count 7.5 on admission, lactic acid * Will recheck lactic acid today * Vital signs are stable, he is back down to his baseline oxygen requirement, T- max 99.6??? in the past 24 hours. * Move out of IMU to regular medical floor (2) Multifocal pneumonia: Code(s): J18.9 - Pneumonia, unspecified organism Status: Acute Assessment and Plan: * CTA showing left lower lobe consolidation with patchy involvement in the lingula and the right lower lobe suspicious for multifocal pneumonia * Urine Legionella, urine strep, mycoplasma ordered * Received meropenem, Rocephin, azithromycin while in the ED * Continue Rocephin and Azithromycin * Flagyl discontinued * Continue Duonebs (3) Acute and chronic respiratory failure with hypoxia: Code(s): J96.21 - Acute and chronic respiratory failure with hypoxia Status: Acute Assessment and Plan: see above (4) Heart failure with preserved ejection fraction: Code(s): I50.30 - Unspecified diastolic (congestive) heart failure Status: Acute Assessment and Plan: * Last echo reviewed and showed normal LV systolic function with an estimated EF of 55-60%, grade 1 diastolic dysfunction (5) Chronic anticoagulation: Code(s): Z79.01 - prison (current) use of anticoagulants Status: Acute Assessment and Plan: * Continue Eliquis (6) Obstructive sleep apnea: Code(s): G47.33 - Obstructive sleep apnea (adult) (pediatric) Status: Acute Assessment and Plan: * Continue BiPAP at night Time Spent With Patient Time with patient: Greater than 35 minutes Subjective Date/time seen: 10/28/24 10:00 Interval history: Interval history: This is an 78-year-old male who presented to the hospital on 10/27/2024 with shortness of breath. Workup in the hospital included chest x-ray which shown anopacification in the right upper lobe suggestive of atelectasis versus pneumonia, bilateral interstitial changes. Chest CTA showed extensive left lower lobe consolidation for patchy involvement in the lingula and right lower lobe, suspicious for multifocal pneumonia, stable dense consolidation volume loss of the right upper lobe. Initial labs showed a normal white blood cell count of 7.5, hemoglobin 13.5, lactic acid 2.7, magnesium 1.6, troponin negative, proBNP 427. A UA was obtained and showed 1+ urine protein, 1+ urine ketone, 1+ leukocyte, 11-20 urine WBC, 11-20 urine cast. MRSA was positive. Respiratory panel was negative for influenza a and B, and COVID. Urine strep, urine Legionella, mycoplasma are all pending. ABG showed a pH of 7.343, PO2 77.1. Blood and urine cultures were obtained and pending. Patient was given 1 L normal saline, Rocephin, azithromycin, meropenem while in the ED. Subjective: Patient denies any fever, chills, nausea, vomiting, diarrhea, abdominal pain, chest pain, or shortness of breath. Labs and imaging reviewed. Review of Systems Review of Systems: All systems reviewed & are unremarkable except as noted in HPI and below Constitutional: Constitutional: Reports as per HPI and Reports no additional constitutional complaints Eyes: Eyes: Reports as per HPI and Reports no additional eye complaints ENT: Reports system reviewed and no additional complaints, except as documented and Reports as per HPI Cardiovascular: Cardiovascular: Reports as per HPI and Reports no additional cardiovascular complaints Respiratory: Respiratory: Reports as per HPI and Reports no additional respiratory complaints Gastrointestinal: Gastrointestinal: Reports as per HPI and Reports no additional gastrointestinal complaints Genitourinary: Genitourinary: Reports no additional male genitourinary complaints and Reports as per HPI Musculoskeletal: Musculoskeletal: Reports no additional musculoskeletal complaints and Reports as per HPI Integumentary/Breasts: Skin/Breast: Reports system reviewed and no additional complaints, except as docu and Reports as per HPI Neurologic: Reports system reviewed and no additional complaints, except as documented and Reports as per HPI Psychiatric: Psychiatric: Reports no additional psychiatric complaints and Reports as per HPI Exam Narrative: General: In no acute distress, well nourished Head: atraumatic, no encephalopathy Eyes: PERRLA, sclera clear ENT: dry mucous membranes, nasal passages clear Neck: supple, no JVD, no adenopathy, trachea midline Cardiac: Normal S1 and S2. No murmur, gallops or friction rubs, peripheral pulses intact. Respiratory: BLL crackles with expiratory wheezing, currently on 2L NC Gastrointestinal: soft, non-distended, non-tender, normoactive bowel sounds. : chronic corral in place Extremities: moves all extremities well, no edema Skin: clean, dry, intact. No wounds or lesions. Neuro: Alert and oriented x4, cranial nerves intact, no neuro deficits. Psych: normal mood, normal affect, interactive Objective Data Vital Signs Vital Signs: Vital Signs - 24 hr 10/27/24 10:58 10/27/24 11:20 10/27/24 12:07 Temperature 97.6 F 100.2 F H Pulse Rate 104 H 102 H 104 H Respiratory Rate 25 H 16 15 Blood Pressure 107/68 170/72 H Pulse Oximetry 96 97 97 Oxygen Delivery BiPAP Oxygen Flow Rate Fraction of Inspired Oxygen 10/27/24 12:26 10/27/24 12:37 10/27/24 13:01 Temperature 100.2 F H Pulse Rate 104 H 102 H Respiratory Rate 24 H 24 H Blood Pressure 122/67 Pulse Oximetry 97 96 Oxygen Delivery BiPAP Oxygen Flow Rate Fraction of Inspired Oxygen 10/27/24 13:16 10/27/24 13:24 10/27/24 13:24 Temperature Pulse Rate 101 H 101 H 101 H Respiratory Rate 19 24 H 24 H Blood Pressure 108/67 Pulse Oximetry 95 97 Oxygen Delivery BiPAP Oxygen Flow Rate Fraction of Inspired Oxygen 10/27/24 13:31 10/27/24 13:33 10/27/24 13:37 Temperature 100.5 F H Pulse Rate 102 H 102 H Respiratory Rate 20 24 H Blood Pressure 104/70 Pulse Oximetry 95 Oxygen Delivery Oxygen Flow Rate Fraction of Inspired Oxygen 10/27/24 13:46 10/27/24 14:06 10/27/24 14:16 Temperature 100.5 F H Pulse Rate 103 H 103 H 104 H Respiratory Rate 22 H 22 H 18 Blood Pressure 107/68 106/69 106/67 Pulse Oximetry 95 96 96 Oxygen Delivery Oxygen Flow Rate Fraction of Inspired Oxygen 10/27/24 14:31 10/27/24 14:45 10/27/24 14:47 Temperature 100.1 F H 100.1 F H Pulse Rate 103 H 103 H Respiratory Rate 21 H 20 Blood Pressure 108/66 109/67 Pulse Oximetry 97 96 Oxygen Delivery Oxygen Flow Rate Fraction of Inspired Oxygen 10/27/24 15:01 10/27/24 15:30 10/27/24 15:46 Temperature 99.9 F H Pulse Rate 104 H 100 98 Respiratory Rate 25 H 20 21 H Blood Pressure 109/82 106/68 115/69 Pulse Oximetry 91 96 95 Oxygen Delivery Oxygen Flow Rate Fraction of Inspired Oxygen 10/27/24 16:01 10/27/24 16:15 10/27/24 16:22 Temperature 99.6 F 99.5 F Pulse Rate 97 95 Respiratory Rate 24 H 19 Blood Pressure 100/58 L 102/63 Pulse Oximetry 95 95 Oxygen Delivery Oxygen Flow Rate Fraction of Inspired Oxygen 10/27/24 16:35 10/27/24 16:45 10/27/24 17:09 Temperature Pulse Rate 96 91 Respiratory Rate 22 H 222 H Blood Pressure Pulse Oximetry 95 95 94 Oxygen Delivery BiPAP Nasal Cannula BiPAP Oxygen Flow Rate 2 Fraction of Inspired Oxygen 28 10/27/24 17:14 10/27/24 17:15 10/27/24 17:16 Temperature 99.0 F Pulse Rate 91 91 92 Respiratory Rate 19 19 22 H Blood Pressure 103/63 103/63 106/66 Pulse Oximetry 94 93 93 Oxygen Delivery Oxygen Flow Rate Fraction of Inspired Oxygen 10/27/24 17:31 10/27/24 17:35 10/27/24 18:01 Temperature Pulse Rate 95 95 Respiratory Rate 24 H 25 H Blood Pressure 140/84 113/96 H Pulse Oximetry 95 95 96 Oxygen Delivery Nasal Cannula Oxygen Flow Rate 2 Fraction of Inspired Oxygen 28 10/27/24 18:16 10/27/24 18:31 10/27/24 20:00 Temperature Pulse Rate 98 99 Respiratory Rate 24 H 29 H Blood Pressure 117/85 111/56 L Pulse Oximetry 96 93 93 Oxygen Delivery Nasal Cannula Oxygen Flow Rate 2 Fraction of Inspired Oxygen 10/27/24 20:00 10/27/24 20:28 10/27/24 20:32 Temperature Pulse Rate 95 97 Respiratory Rate 24 H Blood Pressure Pulse Oximetry 96 Oxygen Delivery Nasal Cannula Oxygen Flow Rate 2 Fraction of Inspired Oxygen 28 10/27/24 20:35 10/27/24 20:49 10/27/24 22:45 Temperature 98.7 F Pulse Rate 95 99 88 Respiratory Rate 24 H 20 23 H Blood Pressure 104/68 Pulse Oximetry 98 96 Oxygen Delivery BiPAP Oxygen Flow Rate Fraction of Inspired Oxygen 10/28/24 00:00 10/28/24 00:00 10/28/24 00:27 Temperature 97.8 F Pulse Rate 86 86 Respiratory Rate 20 Blood Pressure 93/45 L Pulse Oximetry 98 98 Oxygen Delivery BiPAP Oxygen Flow Rate Fraction of Inspired Oxygen 30 10/28/24 02:29 10/28/24 02:41 10/28/24 03:55 Temperature Pulse Rate 84 84 Respiratory Rate 22 H 20 Blood Pressure Pulse Oximetry 98 Oxygen Delivery Nasal Cannula Oxygen Flow Rate 2 Fraction of Inspired Oxygen 10/28/24 04:00 10/28/24 06:06 10/28/24 08:13 Temperature 97.8 F Pulse Rate 88 60 89 Respiratory Rate 20 22 H Blood Pressure 124/64 Pulse Oximetry 100 Oxygen Delivery Oxygen Flow Rate Fraction of Inspired Oxygen 10/28/24 08:14 10/28/24 08:14 10/28/24 08:22 Temperature 97.8 F Pulse Rate 54 L 90 Respiratory Rate 18 22 H Blood Pressure 129/69 Pulse Oximetry 90 99 Oxygen Delivery Nasal Cannula Oxygen Flow Rate 2 Fraction of Inspired Oxygen 28 Intake/Output Intake/Output: Intake & Output 10/25/24 10/26/24 10/27/24 10/28/24 23:59 23:59 23:59 23:59 Intake Total 2654 440 Output Total 400 600 Balance 2254 -160 Meds/Results Medications: Active Medications Generic Name Dose Route Start Last Admin Trade Name Freq PRN Reason Stop Dose Admin Acetaminophen 650 mg 10/27/24 22:18 Acetaminophen 325 Mg Tablet PO Q6H PRN Mild Pain (1-3) or Fever Albuterol/Ipratropium 3 ml 10/27/24 14:00 10/28/24 08:10 Ipratropium 0.5 Mg/Albuterol Sulfate 2.5 Mg Ampul.Neb 3 Ml INHALATION 3 ml Q6HRT JILLIAN Administration Dextrose 12.5 gm 10/27/24 22:18 Dextrose 50% 25 Gm/50 Ml Syringe IV PUSH PRN PRN Hypoglycemia Protocol Glucagon 1 mg 10/27/24 22:18 Glucagon For Inj 1 Mg Vial IM PRN PRN Hypoglycemia Protocol Glucose 15 gm 10/27/24 22:18 Glucose Oral Gel 15 Gm Of Glucse In 37.5 Gm Tube PO PRN PRN Hypoglycemia Protocol Guaifenesin 1,200 mg 10/28/24 09:00 10/28/24 08:11 Guaifenesin 12 Hr 600 Mg Tabcr PO 1,200 mg Q12HR JILLIAN Administration Ceftriaxone Sodium 1 gm in 50 mls @ 100 mls/hr 10/28/24 11:00 Rocephin 1 Gm/Ns 50 Ml IVPB Q24H JILLIAN Metronidazole 500 mg in 100 mls @ 100 mls/hr 10/27/24 22:25 10/28/24 07:25 Flagyl 500 Mg/Iso Soln 100 Ml IVPB Infused Q8HR JILLIAN Infusion Dextrose 1,000 mls @ 100 mls/hr 10/27/24 22:18 Dextrose 5% 1,000 Ml IVPB PRN PRN Hypoglycemia Protocol Insulin Aspart 2 - 5 units 10/28/24 08:00 10/28/24 08:12 Insulin Aspart (*Bkc) 100 Units/Ml SUB-Q Not Given [facility] Protocol Insulin Aspart 1 - 2 units 10/28/24 21:00 Insulin Aspart (*Bkc) 100 Units/Ml SUB-Q HS JILLIAN Protocol Radiology Results: ITS Impressions Chest CTA 10/27/24 11:27 Impression: No evidence of pulmonary embolus, aortic dissection, or aortic aneurysm. Extensive left lower lobe consolidation is more patchy involvement in the lingula and right lower lobe. Findings are suspicious for multifocal pneumonia. Stable dense consolidation volume loss of the right upper lobe, which could reflect chronic right upper lobe atelectasis. Minimal left pleural effusion. Labs Labs: Laboratory Results - last 24 hr 10/27/24 10/27/24 10/27/24 06:27 06:28 08:20 WBC RBC Hgb Hct MCV MCH MCHC RDW Plt Count MPV Puncture Site ABG pH ABG pCO2 ABG pO2 ABG PO2/FiO2 Ratio ABG HCO3 ABG O2 Saturation ABG O2 Content ABG Base Excess A-a Gradient Oxyhemoglobin Carboxyhemoglobin Methemoglobin Reduced Hemoglobin Total Hemoglobin O2 Delivery Device O2 Liters/Min Vent Rate FiO2 Expiratory Pressure Inspiratory Pressure Sodium 140 Potassium 4.6 Chloride 105 Carbon Dioxide 28 Anion Gap 7 BUN 23 H D Creatinine 0.90 Estim Creat Clear Calc Not Reportable Estimated GFR > 60 Glucose 210 H POC Capillary Glucose Lactic Acid 2.7 H Calcium 9.1 Magnesium 1.6 Total Bilirubin 0.7 AST 19 ALT 11 Alkaline Phosphatase 92 NT-Pro-B Natriuret Pep 427 H Total Protein 7.0 Albumin 3.3 L Urine Color Dark yellow Urine Appearance Clear Urine pH 5.0 Ur Specific [place] 1.033 Urine Protein 1+ H Urine Glucose (UA) Negative Urine Ketones 1+ H Ur Blood (Man) Negative Urine Nitrate Negative Urine Bilirubin Negative Urine Urobilinogen 1.0 Add Ur Microanalysis Reviewed Leukocyte Esterase Rfl 1+ H Urine RBC 0-2 Urine WBC 11-20 H Ur Squamous Epith Cells Few Calcium Oxalate Crystal Present Urine Bacteria None seen Urine Casts 11-20 Nasal MRSA (PCR) Influenza A (RT-PCR) Influenza B (RT-PCR) SARS-CoV-2 RNA (RT-PCR) 10/27/24 10/27/24 10/27/24 16:36 23:37 23:46 WBC RBC Hgb Hct MCV MCH MCHC RDW Plt Count MPV Puncture Site Right radial ABG pH 7.343 L ABG pCO2 43.0 ABG pO2 77.1 L ABG PO2/FiO2 Ratio 2.57 ABG HCO3 22.8 ABG O2 Saturation 94.7 L ABG O2 Content 16.6 ABG Base Excess -2.8 A-a Gradient 86.3 Oxyhemoglobin 94.0 Carboxyhemoglobin 1.3 Methemoglobin 0.1 Reduced Hemoglobin 4.6 Total Hemoglobin 12.5 O2 Delivery Device Non-invasive vent O2 Liters/Min Not Reportable Vent Rate 16 FiO2 30 Expiratory Pressure 8 Inspiratory Pressure 12 Sodium Potassium Chloride Carbon Dioxide Anion Gap BUN Creatinine Estim Creat Clear Calc Estimated GFR Glucose POC Capillary Glucose 163 H Lactic Acid Calcium Magnesium Total Bilirubin AST ALT Alkaline Phosphatase NT-Pro-B Natriuret Pep Total Protein Albumin Urine Color Urine Appearance Urine pH Ur Specific [place] Urine Protein Urine Glucose (UA) Urine Ketones Ur Blood (Man) Urine Nitrate Urine Bilirubin Urine Urobilinogen Add Ur Microanalysis Leukocyte Esterase Rfl Urine RBC Urine WBC Ur Squamous Epith Cells Calcium Oxalate Crystal Urine Bacteria Urine Casts Nasal MRSA (PCR) Detected A* Influenza A (RT-PCR) Negative Influenza B (RT-PCR) Negative SARS-CoV-2 RNA (RT-PCR) Negative 10/28/24 10/28/24 04:26 06:43 WBC 8.8 RBC 3.42 L Hgb 10.4 L D Hct 33.0 L MCV 96.5 MCH 30.4 MCHC 31.5 L RDW 14.6 H Plt Count 108 L MPV 10.1 Puncture Site ABG pH ABG pCO2 ABG pO2 ABG PO2/FiO2 Ratio ABG HCO3 ABG O2 Saturation ABG O2 Content ABG Base Excess A-a Gradient Oxyhemoglobin Carboxyhemoglobin Methemoglobin Reduced Hemoglobin Total Hemoglobin O2 Delivery Device O2 Liters/Min Vent Rate FiO2 Expiratory Pressure Inspiratory Pressure Sodium 142 Potassium 4.0 Chloride 110 H Carbon Dioxide 29 Anion Gap 3 L BUN 29 H Creatinine 0.80 Estim Creat Clear Calc 66 Estimated GFR > 60 Glucose 118 H POC Capillary Glucose 126 H Lactic Acid Calcium 7.8 L Magnesium 1.8 Total Bilirubin AST ALT Alkaline Phosphatase NT-Pro-B Natriuret Pep Total Protein Albumin Urine Color Urine Appearance Urine pH Ur Specific [place] Urine Protein Urine Glucose (UA) Urine Ketones Ur Blood (Man) Urine Nitrate Urine Bilirubin Urine Urobilinogen Add Ur Microanalysis Leukocyte Esterase Rfl Urine RBC Urine WBC Ur Squamous Epith Cells Calcium Oxalate Crystal Urine Bacteria Urine Casts Nasal MRSA (PCR) Influenza A (RT-PCR) Influenza B (RT-PCR) SARS-CoV-2 RNA (RT-PCR) Quality VTE Prophylaxis VTE prophylaxis: pharmacologic ordered (on apixaban) This report may have been done utilizing a voice recognition system. Attempts have been made to correct errors. However, there may be uncorrected grammatical,spelling, and recognition errors present. Report Initialized date/time: Cely Loyola APRN 10/28/24 / 1019 Electronically signed by: Cely Loyola APRN 10/28/24 1627 Progress Note Author Cely Loyola [facility] Note Date/Time October 29, 2024 2:27pm [facility] [address] [place], [place] [id number] Hospitalist Progress Note Signed Patient: Farhan Armstrong MR#: [id number] : 1945 Acct:[id number] Age: 78 ADM Date: 10/27/24 Loc: [id number]: Cely Loyola APRN cc: ~ Progress Note: A&P Assessment and Plan (1) Sepsis: Code(s): A41.9 - Sepsis, unspecified organism Status: Acute Assessment and Plan: * Meeting sepsis criteria with fever, tachycardia, tachypnea, elevated lactic acid, pneumonia * Received 1 L of normal saline while in the ED * Blood culture showing no growth to date on preliminary read * urine culture reading E coli on preliminary read * Continue Rocephin and azithromycin * Respiratory panel negative for Influenza A and B, COVID * UA showing 1+ Leukocytes, 11-20 WBC's. * White blood cell count 7.5 on admission, lactic acid * lactic acid down to 0.9 (2) Acute and chronic respiratory failure with hypoxia: Code(s): J96.21 - Acute and chronic respiratory failure with hypoxia Status: Acute Assessment and Plan: * CTA showing left lower lobe consolidation with patchy involvement in the lingula and the right lower lobe suspicious for multifocal pneumonia * Urine Legionella, urine strep, mycoplasma pending * Received meropenem, Rocephin, azithromycin while in the ED * Continue Rocephin and Azithromycin * Flagyl discontinued * Continue Duonebs * currently on baseline oxygen requirement (3) Multifocal pneumonia: Code(s): J18.9 - Pneumonia, unspecified organism Status: Acute Assessment and Plan: * see above plan of care (4) Acute UTI: Code(s): N39.0 - Urinary tract infection, site not specified Status: Acute Assessment and Plan: * UA showing 1+ urine protein, 1+ urine ketone, 1+ leukocyte, 11-20 urine WBC * urine culture showing E coli on preliminary read * continue Rocephin * Chronic Corral replaced in the ED this admission (5) Heart failure with preserved ejection fraction: Code(s): I50.30 - Unspecified diastolic (congestive) heart failure Status: Acute Assessment and Plan: * Last echo reviewed and showed normal LV systolic function with an estimated EF of 55-60%, grade 1 diastolic dysfunction (6) Chronic anticoagulation: Code(s): Z79.01 - prison (current) use of anticoagulants Status: Acute Assessment and Plan: * Continue Eliquis (7) Obstructive sleep apnea: Code(s): G47.33 - Obstructive sleep apnea (adult) (pediatric) Status: Acute Assessment and Plan: * Continue BiPAP at night (8) Moderate protein-calorie malnutrition: Code(s): E44.0 - Moderate protein-calorie malnutrition Status: Acute Assessment and Plan: * Dietitian consulted * BMI 27.1, 85.7 kg * Continue supplements Time Spent With Patient Time with patient: Greater than 35 minutes Subjective Date/time seen: 10/29/24 12:19 Interval history: Interval history: This is an 78-year-old male who presented to the hospital on 10/27/2024 with shortness of breath. Workup in the hospital included chest x-ray which shown anopacification in the right upper lobe suggestive of atelectasis versus pneumonia, bilateral interstitial changes. Chest CTA showed extensive left lower lobe consolidation for patchy involvement in the lingula and right lower lobe, suspicious for multifocal pneumonia, stable dense consolidation volume loss of the right upper lobe. Initial labs showed a normal white blood cell count of 7.5, hemoglobin 13.5, lactic acid 2.7, magnesium 1.6, troponin negative, proBNP 427. A UA was obtained and showed 1+ urine protein, 1+ urine ketone, 1+ leukocyte, 11-20 urine WBC, 11-20 urine cast. MRSA was positive. Respiratory panel was negative for influenza a and B, and COVID. Urine strep, urine Legionella, mycoplasma are all pending. ABG showed a pH of 7.343, PO2 77.1. Blood and urine cultures were obtained and pending. Patient was given 1 L normal saline, Rocephin, azithromycin, meropenem while in the ED. Subjective: Patient denies any new complaints today. Labs reviewed. Review of Systems Review of Systems: All systems reviewed & are unremarkable except as noted in HPI and below Constitutional: Constitutional: Reports as per HPI and Reports no additional constitutional complaints Eyes: Eyes: Reports as per HPI and Reports no additional eye complaints ENT: Reports system reviewed and no additional complaints, except as documented and Reports as per HPI Cardiovascular: Cardiovascular: Reports as per HPI and Reports no additional cardiovascular complaints Respiratory: Respiratory: Reports as per HPI and Reports no additional respiratory complaints Gastrointestinal: Gastrointestinal: Reports as per HPI and Reports no additional gastrointestinal complaints Genitourinary: Genitourinary: Reports no additional male genitourinary complaints and Reports as per HPI Musculoskeletal: Musculoskeletal: Reports no additional musculoskeletal complaints and Reports as per HPI Integumentary/Breasts: Skin/Breast: Reports system reviewed and no additional complaints, except as docu and Reports as per HPI Neurologic: Reports system reviewed and no additional complaints, except as documented and Reports as per HPI Psychiatric: Psychiatric: Reports no additional psychiatric complaints and Reports as per HPI Exam Narrative: General: In no acute distress Cardiac: Normal S1 and S2. No murmur, gallops or friction rubs, peripheral pulses intact. Respiratory: Left lower lobe crackles with mild expiratory wheezing, currently on 3 L NC Gastrointestinal: soft, non-distended, non-tender, normoactive bowel sounds. : chronic corral in place draining clear yellow urine Neuro: Alert and oriented x4 Objective Data Vital Signs Vital Signs: Vital Signs - 24 hr 10/28/24 13:21 10/28/24 13:30 10/28/24 14:00 Temperature Pulse Rate 92 93 100 Respiratory Rate 22 H 22 H Blood Pressure Pulse Oximetry Oxygen Delivery Oxygen Flow Rate 10/28/24 15:19 10/28/24 21:21 10/28/24 21:37 Temperature 99.1 F 98.6 F Pulse Rate 99 100 92 Respiratory Rate 18 14 22 H Blood Pressure 106/55 L 123/66 Pulse Oximetry 95 95 Oxygen Delivery Oxygen Flow Rate 10/28/24 21:45 10/28/24 21:45 10/28/24 21:46 Temperature Pulse Rate 88 Respiratory Rate 22 H Blood Pressure Pulse Oximetry 92 92 Oxygen Delivery Nasal Cannula Oxygen Flow Rate 2 10/28/24 23:45 10/29/24 03:15 10/29/24 03:16 Temperature Pulse Rate 9 L 89 Respiratory Rate 20 22 H 24 H Blood Pressure Pulse Oximetry 98 Oxygen Delivery BiPAP BiPAP Oxygen Flow Rate 10/29/24 06:04 10/29/24 08:35 10/29/24 09:39 Temperature 97.9 F 97.5 F L Pulse Rate 72 87 Respiratory Rate 20 24 H 22 H Blood Pressure 125/70 126/64 Pulse Oximetry 98 99 98 Oxygen Delivery Nasal Cannula Oxygen Flow Rate 2 Intake/Output Intake/Output: Intake & Output 10/26/24 10/27/24 10/28/24 10/29/24 23:59 23:59 23:59 23:59 Intake Total 2654 1690 600 Output Total 400 1350 700 Balance 2254 340 -100 Meds/Results Medications: Active Medications Generic Name Dose Route Start Last Admin Trade Name Freq PRN Reason Stop Dose Admin Acetaminophen 650 mg 10/27/24 22:18 Acetaminophen 325 Mg Tablet PO Q6H PRN Mild Pain (1-3) or Fever Albuterol/Ipratropium 3 ml 10/27/24 14:00 10/29/24 08:11 Ipratropium 0.5 Mg/Albuterol Sulfate 2.5 Mg Ampul.Neb 3 Ml INHALATION 3 ml Q6HRT JILLIAN Administration Apixaban 5 mg 10/28/24 21:00 10/29/24 09:40 Apixaban 5 Mg Tablet PO 5 mg Q12HR JILLIAN Administration Ascorbic Acid 500 mg 10/28/24 17:00 10/29/24 09:39 Ascorbic Acid 500 Mg Tablet PO 500 mg BID JILLIAN Administration Azithromycin 500 mg 10/29/24 09:00 10/29/24 09:39 Azithromycin 250 Mg Tablet PO 10/31/24 09:00 500 mg DAILY JILLIAN Administration Bisacodyl 10 mg 10/28/24 17:00 10/29/24 09:39 Bisacodyl 5 Mg Tablet Ec PO 10 mg BID JILLIAN Administration Bisacodyl 10 mg 10/28/24 16:22 Bisacodyl 10 Mg Suppository RECTAL DAILY PRN Constipation Bupropion HCl 150 mg 10/29/24 09:00 10/29/24 09:38 Bupropion Hcl Xl (24 Hr) 150 Mg Tabcr PO 150 mg DAILY JILLIAN Administration Clopidogrel Bisulfate 75 mg 10/29/24 09:00 10/29/24 09:40 Clopidogrel Bisulfate 75 Mg Tablet PO 75 mg DAILY JILLIAN Administration Dextrose 12.5 gm 10/27/24 22:18 Dextrose 50% 25 Gm/50 Ml Syringe IV PUSH PRN PRN Hypoglycemia Protocol Fluoxetine HCl 20 mg 10/29/24 09:00 10/29/24 09:40 Fluoxetine Hcl 20 Mg Capsule PO 20 mg DAILY JILLIAN Administration Gabapentin 100 mg 10/28/24 22:00 10/29/24 06:25 Gabapentin 100 Mg Capsule PO 100 mg Q8HR JILLIAN Administration Glucagon 1 mg 10/27/24 22:18 Glucagon For Inj 1 Mg Vial IM PRN PRN Hypoglycemia Protocol Glucose 15 gm 10/27/24 22:18 Glucose Oral Gel 15 Gm Of Glucse In 37.5 Gm Tube PO PRN PRN Hypoglycemia Protocol Guaifenesin 1,200 mg 10/28/24 09:00 10/29/24 09:39 Guaifenesin 12 Hr 600 Mg Tabcr PO 1,200 mg Q12HR JILLIAN Administration Ceftriaxone Sodium 1 gm in 50 mls @ 100 mls/hr 10/28/24 11:00 10/29/24 10:07 Rocephin 1 Gm/Ns 50 Ml IVPB 100 mls/hr Q24H JILLIAN Administration Dextrose 1,000 mls @ 100 mls/hr 10/27/24 22:18 Dextrose 5% 1,000 Ml IVPB PRN PRN Hypoglycemia Protocol Insulin Aspart 2 - 5 units 10/28/24 08:00 10/29/24 09:43 Insulin Aspart (*Bkc) 100 Units/Ml SUB-Q Not Given TIDWM JILLIAN Protocol Insulin Aspart 1 - 2 units 10/28/24 21:00 10/28/24 21:44 Insulin Aspart (*Bkc) 100 Units/Ml SUB-Q Not Given HS JILLIAN Protocol Levothyroxine Sodium 25 mcg 10/29/24 06:30 10/29/24 06:25 Levothyroxine Sodium 25 Mcg Tablet PO 25 mcg DAILY@0630 JILLIAN Administration Methadone HCl 5 mg 10/28/24 17:00 10/29/24 09:38 Methadone Hcl (*Crx) 5 Mg Tablet PO 5 mg BID JILLIAN Administration Mirtazapine 15 mg 10/28/24 21:00 10/28/24 21:46 Mirtazapine 15 Mg Tablet PO 15 mg HS JILLIAN Administration Multivitamins/Minerals 1 tab 10/29/24 12:00 Multivitamins /C Lutein (Centrum Silver) Tablet *Bkc PO DAILY@1200 JILLIAN Olanzapine 5 mg 10/28/24 17:00 10/29/24 09:38 Olanzapine 5 Mg Tablet PO 5 mg BID JILLIAN Administration Pantoprazole Sodium 40 mg 10/29/24 09:00 10/29/24 09:40 Pantoprazole 40 Mg Tablet PO 40 mg QAM JILLIAN Administration Polyethylene Glycol 17 gm 10/28/24 16:22 Polyethylene Glycol 3350 17 Gm Powd.Pack PO DAILY PRN Constipation Ropinirole HCl 1 mg 10/28/24 21:00 10/28/24 21:46 Ropinirole Hcl 1 Mg Tablet PO 1 mg HS JILLIAN Administration Sucralfate 1 gm 10/28/24 16:30 10/29/24 09:43 Sucralfate 1 Gm Tablet PO 1 gm TID@0830,1130,1630 JILLIAN Administration Tamsulosin HCl 0.4 mg 10/28/24 21:00 10/28/24 21:46 Tamsulosin Hcl 0.4 Mg Capsule PO 0.4 mg HS JILLIAN Administration Radiology Results: ITS Impressions Chest CTA 10/27/24 11:27 Impression: No evidence of pulmonary embolus, aortic dissection, or aortic aneurysm. Extensive left lower lobe consolidation is more patchy involvement in the lingula and right lower lobe. Findings are suspicious for multifocal pneumonia. Stable dense consolidation volume loss of the right upper lobe, which could reflect chronic right upper lobe atelectasis. Minimal left pleural effusion. Labs Labs: Laboratory Results - last 24 hr 10/28/24 10/28/24 10/28/24 15:24 16:43 21:22 POC Capillary Glucose 119 H 87 Lactic Acid 0.9 10/29/24 10/29/24 07:55 11:54 POC Capillary Glucose 113 H 141 H Lactic Acid Quality VTE Prophylaxis VTE prophylaxis: pharmacologic ordered (on apixaban) This report may have been done utilizing a voice recognition system. Attempts have been made to correct errors. However, there may be uncorrected grammatical,spelling, and recognition errors present. Report Initialized date/time: Cely Loyola APRN 10/29/24 / 1223 Electronically signed by: Cely Loyola APRN 10/29/24 6450
--- OUTSIDE RECORDS SUMMARY | 2024-11-25 05:08 | XMS_ITS | Encounter Summary ---
Author Organization [facility] Address [address] Val[place]n: Epic Prelude ADT DAVIDE HARRISON [address] Care Team Providers Care Billboard Erector Helper Name Role Phone Etienne Maher DO Primary Care Provider [phone] Encounter Details Date Type Department Care Team (Latest Contact Info) Description 07/12/2022 Travel Social History Tobacco Use Types Packs/Day [...] suspected to have Coronavirus/COVID-19? No / Unsure 07/12/2022 3:35 PM CDT documented as of this encounter Plan of Treatment Not on file documented as of this encounter Visit Diagnoses Not on filedocumented in this encounter Care Teams Billboard Erector Helper Relationship Specialty Start Date End Date Etienne Maher DO [address] [place] [address] PCP - General Internal Medicine 04/20/22 documented as of this encounter
--- OUTSIDE RECORDS SUMMARY | 2024-11-25 05:08 | XMS_ITS | Encounter Summary ---
Author Organization [facility] Address [address] [place] [address] Care Team Providers Care Paper Wrapping Machine Operator Name Role Phone Etienne Maher DO Primary Care Provider [phone] Encounter Details Date Type Department Care Team (Latest Contact Info) Description 01/22/2024 Travel Social History Tobacco Use Types Packs/Day Years Used Date Smoking Tobacco: Never Assessed Sex and Gender Information Value Date Recorded Sex Assigned at Not on file Gender Identity Not on file Sexual Orientation Not on file documented as of this encounter Plan of Treatment Upcoming Encounters Date Type Department Care Team (Late st Contact Info) Description 01/22/2025 1:15 PM LEATHER CUTTER [facility] - Urology [address] [place] [id number] Jordan Noonan MD [address] [place] [address] documented as of this encounter Visit Diagnoses Not on filedocumented in this encounter Care Teams Paper Wrapping Machine Operator Relationship Specialty Start Date End Date Etienne Maher DO [address] [place] [address] PCP - General 01/12/22 documented as of this encounter
--- OUTSIDE RECORDS SUMMARY | 2024-11-25 05:08 | XMS_ITS | Encounter Summary ---
Author Organization [facility] Address [address] [place] [address] Care Team Providers Care Air Operations Manager Name Role Phone Etienne Maher DO Primary Care Provider [phone] Encounter Details Date Type Department Care Team (Late st Contact Info) Description 12/14/2023 External Device Data [facility]STRACTION Provider, Abstract [...] on filedocumented in this encounter Care Teams Air Operations Manager Relationship Specialty Start Date End Date Etienne Maher DO [address] [place] [id number] PCP - General Internal Medicine 04/20/22 documented as of this encounter
--- OUTSIDE RECORDS SUMMARY | 2024-11-25 05:08 | XMS_ITS | Clinical Summary ---
Author Organization [facility] Address [address] [place] [address] Care Team Providers Care Geographic Information Systems Director Name Role Phone Etienne Maher DO Primary Care Provider [phone] Source Comments [facility],non-owned Affiliates and Associated Physician Practices is amultiple site organization consisting of ambulatory clinics and hospital sitesin [place], [place], [place] and [place]. This disclosure is being madepursuant to the Care Everywhere program and may not contain all information available regarding this patient. Last updated 18.[facility] Allergies Active Allergy Reactions Criticality Noted Date Comments Penicillins Other 04/20/2022 Trouble breathing Medications * Be aware that medications may not be up to date on this document. Alwaysverify current medications with the patient. Medication Sig Dispensed Refills Start Date End Date Status buPROPion XL 24hr (Wellbutrin-XL) 300 MG tablet Take 1 (one) tablet by mouth once daily 10/03/2023 Active gabapentin (Neurontin) 100 MG capsule Take 1 (one) capsule by mouth 3 times daily 10/11/2023 Active lactulose (Chronulac) 10 GM/15ML solution Take by mouth 3 times daily 10/14/2023 Active levothyroxine (Synthroid) 25 MCG tablet Take 1 (one) tablet by mouth once daily 07/23/2023 Active methadone (Dolophine) 5 MG tablet Take 1 (one) tablet by mouth 2 times daily 10/15/2023 Active mirtazapine (Remeron) 15 MG tablet Take 1 (one) tablet by mouth at bedtime 09/22/2023 Active ondansetron, disintegrating, (Zofran ODT) 8 MG tablet Take 1 (one) tablet by mouth every 8 hours as needed 10/22/2023 Active oxyCODONE-acetamin ophen (Percocet) 7.5-325 MG tablet 10/14/2023 Active pantoprazole EC (Protonix) 40 MG tablet Take 1 (one) tablet by mouth once daily 10/27/2023 Active potassium chloride ER (Klor-Con M) 20 MEQ tablet Take 1 (one) tablet by mouth 2 times daily 09/28/2023 Active rOPINIRole (Requip) 1 MG tablet Take 1 (one) tablet by mouth at bedtime 10/20/2023 Active sucralfate (Carafate) 1 GM tablet Take 1 (one) tablet by mouth 3 times daily 09/14/2023 Active tamsulosin (Flomax) 0.4 MG capsule Take 1 (one) capsule by mouth at bedtime 10/03/2023 Active acetaminophen (Tylenol) 325 MG tablet Take 1 (one) tablet by mouth every 4 hours as needed for Fever or Pain Maximum allowable Acetaminophen amount = 4 Grams (4000 mg) / 24 hours. Active albuterol HFA (Proventil; Ventolin; Proair) 108 (90 Base) MCG/ACT inhaler Inhale 2 (two) puffs by mouth every 6 hours as needed Active aspirin EC (Ecotrin) 81 MG tablet Take 1 (one) tablet by mouth once daily Active bisacodyl (Dulcolax) 10 MG suppository Insert 1 (one) suppository into the rectum once daily as needed for Constipation Active multivitamin daily tablet Take 1 (one) tablet by mouth daily with food Active ipratropium (Atrovent) 0.02 % nebulizer solution Inhale 0.5 (one-half) mg by mouth every 6 hours Active levalbuterol 1.25 MG/0.5ML 1.25 mg in sodium chloride 0.9 % 3 mL Inhale 1.25 mg by mouth every 6 hours as needed Active polyethylene glycol 3350 (Miralax) 17 g packet Take 17 (seventeen) g by mouth once Active phenazopyridine (Pyridium) 100 MG tablet 06/23/2024 Active FLUoxetine (PROzac) 20 MG capsule 02/20/2024 Active bisacodyl EC 5 MG tablet Take 2 (two) tablets by mouth 2 times daily Active trimethobenzamide (Tigan) injection Inject 1 mL into muscle once daily as needed for Nausea/Vomiting Active AMINO ACIDS-PROTEIN HYDROLYS PO Take 30 mL by mouth once daily Active trospium (Sanctura) 20 MG tablet Take 1 (one) tablet by mouth 2 times daily 120 tablet 3 08/17/2024 Active Active Problems Problem Noted Date Diagnosed Date Malignant neoplasm of upper lobe of right lung 0 04/20/2022 03/20/2024 Benign prostatic hyperplasia with lower urinary tract symptoms 01/11/2022 03/20/2024 Chronic obstructive pulmonary disease, unspecifi ed 01/11/2022 03/20/2024 Cognitive communication deficit 01/11/2022 03/20/2024 Essential (primary) hypertension 01/11/2022 03/20/2024 Heart failure, unspecified 01/11/202203/20 Major depressive disorder, recurrent, mild 01/1103/20/2024 Muscle weakness (generalized) 01/11/2022 Obstructive sleep apnea (adult) (pediatric) 12/2003/20/2024 Opioid use, unspecified, uncomplicated 03/20/2024 Other abnormalities of gait and mobility 022 03/20/2024 Restless legs syndrome 01/11/2022 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 01/11/2022 03/20/2024 Unspecified atrial fibrillation 01/11/2022 03/20/2024 Encounters Date Type Department Care Team Description 09/25/2024 4:08 PM OXIDE FURNACE TENDER - 09/25/2024 11:59 PM [facility] Hospital Encounter [facility] [address] [place] [phone] Discharge Disposition: Home or Self Care 09/25/2024 2:00 PM [facility] Office Visit [facility] - Urology [address] [place] [address] Jordan Noonan MD Hematuria, gross (Primary Dx) from Last 3 Months Social History Tobacco Use Types Packs/Day Years Used Date Smoking Tobacco: Former Cigarettes Smokeless Tobacco: Never Tobacco Cessation:Counseling Given: No Sex and Gender Information Value Date Recorded Sex Assigned at Not on file Gender Identity Not on file Sexual Orientation Not on file Last Filed Vital Signs Vital Sign Reading Time Taken Comments Blood Pressure 113/66 09/25/2024 2:16 PM OXIDE FURNACE TENDER Pulse 88 09/25/2024 2:16 PM OXIDE FURNACE TENDER Temperature 37 ??C (98.6 ??F) 09/25/2024 2:16 PM OXIDE FURNACE TENDER Respiratory Rate - - Oxygen Saturation 96% 09/25/2024 2:16 PM OXIDE FURNACE TENDER Inhaled Oxygen Concentration - - Weight 72.6 kg (160 lb) 09/25/2024 2:16 PM OXIDE FURNACE TENDER Height 175.3 cm (5' 9 ) 09/25/2024 2:16 PM OXIDE FURNACE TENDER Body Mass Index 23.63 09/25/2024 2:16 PM OXIDE FURNACE TENDER Plan of Treatment Upcoming Encounters Date Type Department Care Team (Late st Contact Info) Description 01/22/2025 1:15 PM OXIDE FURNACE TENDER Office Visit [facility] - Urology [address] [place] [id number] Jordan Noonan MD [address] OF UROLOGIC SURGERY [place], [place] [id number] Health Maintenance Due Date Last Done Comments MEDICARE AWV ? 12 MONTHS 1945 PNEUMOCOCCAL VACCINE 50+ (1 of 2 - PCV) 1949 DIABETES-SERUM CREATININE 1961 DTAP/TDAP/TD VACCINES (1 - Tdap) 1962 DIABETES-STATIN 1983 ZOSTER VACCINE (1 of 2) 1993 Respiratory Syncytial Virus (RSV) Vaccine Pt: or over 60 yrs (1 - 1-dose 75+ series) 2018 DIABETES - URINE PROTEIN SCREENING 11/18/2023 DIABETES RETINOPATHY SCREENING 03/20/2024 DIABETES-FOOT EXAM WITH MONOFILAMENT 03/20/2024 DIABETES-HGB A1C 03/20/2024 COVID-19 VACCINE (1 - 2023-2 5 season) 2024 INFLUENZA VACCINE (#1) 2024 DEPRESSION SCREENING 11/18/2024 HEPATITIS B VACCINE Aged Out No longe r eligible based on patient's age to complete this topic HIB VACCINE Aged Out No longer eligi ble based on patient's age to complete this topic HPV VACCINE Aged Out No longer eligi ble based on patient's age to complete this topic MENINGOCOCCAL VACCINE Aged Out No peg mukund eligible based on patient's age to complete this topic Procedures Procedure Name Priority Date/Time Associated Diagnosis Comments IMAGING/RADIOLOGY/X RAY RESULTS ORDER 10/19/2024 CYTOLOGY NON-GARNETT FIXER PANEL (STL) Routine 09/25/2024 4:22 PM OXIDE FURNACE TENDER Hematuria, gross from Last 3 Months Results * IMAGING RADIOLOGY XRAY RESULTS ORDER (10/19/2024) Anatomical Region Laterality Modality Other 10/19/2024 Narrative 10/19/2024 Ordered by an unspecified provider. Scanned Document IMAGING * CYTOLOGY NON-GARNETT FIXER PANEL (STL) (09/25/2024 4:22 PM OXIDE FURNACE TENDER) Case Report Medical Cytology Report ? Case: [id number] ? Authorizing Provider: ??Jordan Noonan MD ? Collected: ? 09/25/2024 04:22 PM ? Ordering Location: ? [facility] - ??Received: ?09/28/2024 07:38 AM ? Urology ? Pathologist: ? Hank Mata MD ? Specimen: ?Urine ? 09/29/2024 12:50 PM OXIDE FURNACE TENDER [facility] Specimen Adequacy Adequate cellularity for evaluation. 09/29/2024 12:50 PM OXIDE FURNACE TENDER [facility] Final Diagnosis Urine, cytology: - Negative for high-grade urothelial carcinoma 09/29/2024 12:50 PM OXIDE FURNACE TENDER [facility] Clinical History The patient is a 78-year-old male with gross hematuria and history of Barnard catheterization 09/29/2024 12:50 PM OXIDE FURNACE TENDER [facility] Gross Description 1 pap stained cytospin slide from 100cc dark yellow fluid 09/29/2024 12:50 PM OXIDE FURNACE TENDER [facility] Microscopic Description Microscopic examination substantiates the final diagnosis. 09/29/2024 12:50 PM OXIDE FURNACE TENDER [facility] Pathologist Location at [facility] 09/29/2024 12:50 PM OXIDE FURNACE TENDER [facility] Disclaimer The performance characteristics of all immunohistochemical and indirect immunofluorescence stains (if any) cited in this report were determined by the Histopathology Laboratory of [facility]. Some of these tests rely on the use of analyte-specific reagents and are subject to specific labeling requirements by the US Food and Drug Administration. Such tests were developed by the [facility]ology Laboratory of [facility] and have not been cleared or approved by the FDA. The FDA has determined that such clearance and approval is not necessary. These tests are used for clinical purposes and should not be regarded as investigational or for research. This laboratory is certified under the Clinical Laboratory Improvement Amendments (CLIA) as qualified to perform high complexity clinical laboratory testing. This case has been personally reviewed and interpreted by the attending (teaching) pathologist. 09/29/2024 12:50 PM OXIDE FURNACE TENDER [facility] Embedded Images 09/29/2024 12:50 PM OXIDE FURNACE TENDER [facility] Pathology/Cytolo gy URINE / Unknown Collection / Unknown 09/25/2024 4:22 PM OXIDE FURNACE TENDER 09/28/2024 7:38 AM OXIDE FURNACE TENDER Jordan Noonan MD LAB - PATHOLOGY/CYTO LOGY ORDERABLES Performing Organization Address City/State/[facility] Co de Phone Number [facility] [address] [facility]. [place], [place] [address] [phone] from Last 3 Months Care Teams Geographic Information Systems Director Relationship Specialty Start Date End Date Etienne Maher DO [address] [place], [place] [id number] PCP - General 01/12/22
--- OUTSIDE RECORDS SUMMARY | 2024-11-25 05:08 | XMS_ITS | Encounter Summary ---
Author Organization [facility] Address [address] [facility] [place] [address] Care Team Providers Care New Car Make Ready Worker Name Role Phone Etienne Maher DO Primary Care Provider [phone] Encounter Details Date Type Department Care Team (Late st Contact Info) Description 08/14/2024 8:45 AM CDT Video Visit [facility] - Urology [address] [place] [address] Jordan Noonan MD [address] OF UROLOGIC SURGERY [place], [place] [phone] OAB (overactive bladder) Social History Tobacco Use Types Packs/Day Years Used Date Smoking Tobacco: Former Cigarettes Smokeless Tobacco: Never Sex and Gender Information Value Date Recorded Sex Assigned at Not on file Gender Identity Not on file Sexual Orientation Not on file documented as of this encounter Progress Notes * Elisha Diaz RN - 08/17/2024 9:42 AM CDT Spoke with son. Patient resides at: [facility] [phone] Selvin molina Spoke with nurse Kevin and she provided their pharmacy info. Rx'd ordered medication to the pharmacy. Scheduled 6 week in person follow up with son. Will notify the facility of the appointment and son will coordinate transportation. * Jordan Noonan MD - 08/14/2024 8:45 AM CDT [facility] Division of Urologic Surgery Jordan Noonan MD Date of Visit: 08/14/2024 Patient Name: Farhan Armstrong : 1945 Medical Record: [id number] Phone: There are no phone numbers on file. Age: [age] year old Sex: male Referring Provider: Etienne Maher DO [address] [address] Chief Complaint/Reason for Visit: No chief complaint on file. History of Present Illness: Farhan Armstrong is a 78 year old male being seen today for SPT discussion 78-year-old male with multiple medical comorbidities, has Corral being changed at facility every 4 weeks. Says he had multiple hernia surgeries. On 2.5 L of oxygen. Has sx of OAB w corral Has had corral for some time and not sure why. He has mobility issue, unable to walk. In [facility] facility He thinks he has seen some blood in the catheter bag. Patient has shaky hands. Patient's lab values and radiology images noted in this report were personally reviewed by me, unless otherwise indicated. Review of Systems: Pertinent positive/negative systems are noted above. A 10-point ROS was reviewed during this clinic visit. Past Medical History: No past medical history on file. Past Surgical History: No past surgical history on file. Current Medications: Current Outpatient Medications Medication Sig Dispense Refill acetaminophen (Tylenol) 325 MG tablet Take 1 (one) tablet by mouth every 4 hours as needed for Fever or Pain Maximum allowable Acetaminophen amount = 4 Grams (4000 mg) / 24 hours. (Patient not taking: Reported on 07/27/2024) albuterol HFA (Proventil; Ventolin; Proair) 108 (90 Base) MCG/ACT inhaler Inhale 2 (two) puffs by mouth every 6 hours as needed (Patient not taking: Reported on 07/27/2024) AMINO ACIDS-PROTEIN HYDROLYS PO Take 30 mL by mouth once daily aspirin EC (Ecotrin) 81 MG tablet Take 1 (one) tablet by mouth once daily bisacodyl (Dulcolax) 10 MG suppository Insert 1 (one) suppository into the rectum once daily as needed for Constipation bisacodyl EC 5 MG tablet Take 2 (two) tablets by mouth 2 times daily buPROPion XL 24hr (Wellbutrin-XL) 300 MG tablet Take 1 (one) tablet by mouth once daily FLUoxetine (PROzac) 20 MG capsule gabapentin (Neurontin) 100 MG capsule Take 1 (one) capsule by mouth 3 times daily ipratropium (Atrovent) 0.02 % nebulizer solution Inhale 0.5 (one-half) mg by mouth every 6 hours lactulose (Chronulac) 10 GM/15ML solution Take by mouth 3 times daily levalbuterol 1.25 MG/0.5ML 1.25 mg in sodium chloride 0.9 % 3 mL Inhale 1.25 mg by mouth every 6 hours as needed levothyroxine (Synthroid) 25 MCG tablet Take 1 (one) tablet by mouth once daily methadone (Dolophine) 5 MG tablet Take 1 (one) tablet by mouth 2 times daily mirtazapine (Remeron) 15 MG tablet Take 1 (one) tablet by mouth at bedtime multivitamin daily tablet Take 1 (one) tablet by mouth daily with food ondansetron, disintegrating, (Zofran ODT) 8 MG tablet Take 1 (one) tablet by mouth every 8 hours asneeded oxyCODONE-acetaminophen (Percocet) 7.5-325 MG tablet (Patient not taking: Reported on 07/27/2024) pantoprazole EC (Protonix) 40 MG tablet Take 1 (one) tablet by mouth once daily phenazopyridine (Pyridium) 100 MG tablet polyethylene glycol 3350 (Miralax) 17 g packet Take 17 (seventeen) g by mouth once potassium chloride ER (Klor-Con M) 20 MEQ tablet Take 1 (one) tablet by mouth 2 times daily rOPINIRole (Requip) 1 MG tablet Take 1 (one) tablet by mouth at bedtime sucralfate (Carafate) 1 GM tablet Take 1 (one) tablet by mouth 3 times daily tamsulosin (Flomax) 0.4 MG capsule Take 1 (one) capsule by mouth at bedtime trimethobenzamide (Tigan) injection Inject 1 mL into muscle once daily as needed for Nausea/Vomiting No current facility-administered medications for this visit. Allergies: Penicillins Family History: No family history on file. Family history is non-contributory unless otherwise indicated. Social History: Social History Socioeconomic History Marital status: Spouse name: Not on file Number of children: Not on file Years of education: Not on file Highest education level: Not on file Occupational History Not on file Tobacco Use Smoking status: Former Types: Cigarettes Smokeless tobacco: Never Vaping Use Vaping Use: Never used Substance and Sexual Activity Alcohol use: Not on file Drug use: Not on file Sexual activity: Not on file Other Topics Concern Not on file Social History Narrative Not on file Social Determinants of Health Financial Resource Strain: Not on file Food Insecurity: Not on file Transportation Needs: Not on file Stress: Not on file Housing Stability: Not on file Physical Exam: Vital Signs: There were no vitals filed for this visit. General: alert, in no acute distress Cardiovascular: well perfused Respiratory: non labored Psych: appropriate mood and affect, facial expression appropriate to situation Musculoskeletal: grossly normal Neurologic: grossly normal Labs No results found for: GLUCOSEUR , BILIRUBINUR , KETONESU , SPECGRAV , RBCUR , PHUR , UROBILINOGEN , NITRITE , WBCUR No results for input(s): COLORU , CLARITYU , LABSPEC , PHUR , PROTEINU , GLUCOSERUR , KETONES , BILIRUBINUR , BLOODU , NITRITE , LEUKOCYTE , UROBILINUA , RBCUA , WBCU , SQUAMOUS in the last 77102 hours. No results for input(s): COLORU , CLARITYU , LABSPEC , PHUR , PROTEINU , GLUCOSERUR , KETONES , BILIRUBINUR , BLOODU , NITRITE , LEUKOCYTE , UROBILINUA , RBCUA , RBCU , WBCU , SQUAMOUS in the last 95637 hours. No results found for: PSA No results for input(s): CREATININE , EGFR in the last 55115 hours. Assessment and Recommendations: Urinary retention of unclear etiology - discussed SPT with me or IR. Discussed that given his age and prior surgical history, would favorhaving it placed by interventional radiology. Also discussed TOV first as he has not tried this. Hewill think about it and let me know. -- I also discussed with the patient that I need to see his penile erosion in order to determine the severity and whether or not it warrants an urgent suprapubic tube placement. They are hesitant about coming to the clinic, but will consider. Gross hematuria -- recommend cysto. They will think about it. -- recommend CT urogram. They will think about it. OAB --symptoms of OAB with corral. -- Trospium trial for 30 days. Reviewed side effects. Unable to find pharmacy. Facility name is [facility]. Will check with clinic RN. They are not able to decide whether they would like to proceed with plan today. He will let me knowonce he decides. A total of 30 minutes was spent taking care of the patient including review of medical records, communication with other providers, examination, evaluation and assessment of the patient, ordering of imaging, labs, consultations, documentation of clinical notes, and coordination of care and follow-up. Jordan Noonan MD Division of Urologic Surgery [facility] This visit was conducted via telehealth without video. The patient consented to this. Therefore, the kind of assessment of the patient that would have been provided at the time of a in-person clinical visit was not feasible for this encounter. documented in this encounter Plan of Treatment Upcoming Encounters Date Type Department Care Team (Late st Contact Info) Description 01/22/2025 1:15 PM CLOTH LAYER Office Visit [facility] - Urology [address] [place] [address] Jordan Noonan MD [address] [place] [address] documented as of this encounter Visit Diagnoses Diagnosis OAB (overactive bladder)- Primary Hypertonicity of bladder documented in this encounter Care Teams New Car Make Ready Worker Relationship Specialty Start Date End Date Etienne Maher DO [address] [place], [place] [id number] PCP - General 01/12/22 documented as of this encounter
--- OUTSIDE RECORDS SUMMARY | 2024-11-25 05:08 | XMS_ITS | Encounter Summary ---
Author Organization [facility] [employer] [facility] Address [address] [place] [address] Care Team Providers Care Dehairer Name Role Phone Etienne Maher DO Primary Care Provider [phone] Reason for Visit * Reason Onset Date Comments Medication Refill 08/07/2022 Encounter Details Date Type Department Care Team (Late st Contact Info) Description 08/07/2022 Refill [facility] Oncology and Hematology - [place] [address] [facility] [address] [place] [address] Matty Murry MD [address] [facility] [address] [place] [address] Malignant neoplasm of upper lobe of right lung (Primary Dx) Social History Tobacco Use [...] Malignant neoplasm of upper lobe of right lung- Primary Malignant neoplasm of upper lobe, bronchus or lung documented in this encounter Care Teams Dehairer Relationship Specialty Start Date End Date Etienne Maher DO [address] [place] [address] PCP - General Internal Medicine 04/20/22 documented as of this encounter
--- OUTSIDE RECORDS SUMMARY | 2024-11-25 05:08 | XMS_ITS | Encounter Summary ---
Author Organization [facility] [employer] [facility] Address [address] [place] [address] Care Team Providers Care Spectrographer Name Role Phone Etienne Maher DO Primary Care Provider [phone] Encounter Details Date Type Department Care Team (Late st Contact Info) Description 04/15/2023 Orders Only [facility] Oncology and Hematology - [place] [address] [facility] [address] [place] [address] Matty Murry MD [address] [facility] [address] [place] [address] Malignant neoplasm of upper lobe [...] lung documented in this encounter Care Teams Spectrographer Relationship Specialty Start Date End Date Etienne Maher DO [address] [place] [address] PCP - General Internal Medicine 04/20/22 documented as of this encounter
--- OUTSIDE RECORDS SUMMARY | 2024-11-25 05:08 | XMS_ITS | Encounter Summary ---
Author Organization [facility] [employer] [facility] Address [address] [place] [address] Care Team Providers Care Fence Installer Foreman Name Role Phone Etienne Maher DO Primary Care Provider [phone] Encounter Details Date Type Department Care Team (Late st Contact Info) Description 11/16/2022 Orders Only [facility] Oncology and Hematology - [place] [address] [place] [address] Larissa Velez Malignant neoplasm of [...] lung documented in this encounter Care Teams Fence Installer Foreman Relationship Specialty Start Date End Date Etienne Maher DO [address] [place] [address] PCP - General Internal Medicine 04/20/22 documented as of this encounter
--- OUTSIDE RECORDS SUMMARY | 2024-11-25 05:08 | XMS_ITS | Encounter Summary ---
Author Organization [facility] Address [address] [place] [address] Care Team Providers Care Incident Manager Name Role Phone Etienne Maher DO Primary Care Provider [phone] Encounter Details Date Type Department Care Team (Late st Contact Info) Description 10/03/2023 External Device Data STL ABSTRACTION Provider, Abstract [...] on filedocumented in this encounter Care Teams Incident Manager Relationship Specialty Start Date End Date Etienne Maher DO [address] [place] [phone] PCP - General Internal Medicine 04/20/22 documented as of this encounter
--- OUTSIDE RECORDS SUMMARY | 2024-11-25 05:08 | XMS_ITS | Encounter Summary ---
Author Organization [facility] Address [address] [place] [address] Care Team Providers Care Guard Museum Name Role Phone Etienne Maher DO Primary Care Provider [phone] Encounter Details Date Type Department Care Team (Late st Contact Info) Description 01/06/2024 External Device Data STL ABSTRACTION Provider, Abstract [...] on filedocumented in this encounter Care Teams Guard Museum Relationship Specialty Start Date End Date Etienne Maher DO [address] [place] [address] PCP - General Internal Medicine 04/20/22 documented as of this encounter
--- OUTSIDE RECORDS SUMMARY | 2024-11-25 05:08 | XMS_ITS | Encounter Summary ---
Author Organization [facility] [employer] [facility] Address [address] [place] [address] Care Team Providers Care Bath Attendant Name Role Phone Etienne Maher DO Primary Care Provider [phone] Reason for Visit * Reason Onset Date Comments OTHER 08/15/2022 Encounter Details Date Type Department Care Team (Late st Contact Info) Description 08/15/2022 Telephone [facility] Oncology and Hematology - [place] [address] [facility] [address] [place] [address] Matty Murry MD [address] [facility] [address] [place] [address] OTHER Social History Tobacco Use Types Packs/Day Years [...] suspected to have Coronavirus/COVID-19? No / Unsure 08/10/2022 8:40 AM CDT documented as of this encounter Miscellaneous Notes * Telephone Encounter - Kailyn Gonzalez RN - 08/15/2022 4:42 PM CDT Patient with limited intake, limited activity and limited interaction. Per son, Milton, patient appears depressed. Patient's son instructed to call primary physician. documented in this encounter Plan of Treatment Not on file documented as of this encounter Visit Diagnoses Not on filedocumented in this encounter Care Teams Bath Attendant Relationship Specialty Start Date End Date Etienne Maher DO [address] [facility] [address] [facility] [address] [place] [phone] PCP - General Internal Medicine 04/20/22 documented as of this encounter
--- OUTSIDE RECORDS SUMMARY | 2024-11-25 05:08 | XMS_ITS | Encounter Summary ---
Author Organization [facility] [employer] [facility] Address [address] [place] [address] Care Team Providers Care User Experience Lead Name Role Phone Etienne Maher DO Primary Care Provider [phone] Encounter Details Date Type Department Care Team (Late st Contact Info) Description 08/09/2022 Orders Only [facility] Oncology and Hematology - [place] [address] [facility] [address] [place] [address] Matty Murry MD [address] [facility] [address] [place] [address] Malignant neoplasm of upper lobe [...] as of this encounter Plan of Treatment Scheduled Orders Name Type Priority Associated Diagnoses Orde r Schedule CBC WITH DIFFERENTIAL Lab Stat Malignant neoplasm of upper lobe of right lung Every Three Weeks for 99 Occurrences starting 08/09/2022 until 08/09/2023 COMPREHENSIVE METABOLIC PANEL Lab Stat Malignant neoplasm of upper lobe of right lung Every Three Weeks for 99 Occurrences starting 08/09/2022 until 08/09/2023 BASIC METABOLIC PANEL Lab Stat Malignant neoplasm of upper lobe of right lung Every Three Weeks for 99 Occurrences starting 08/09/2022 until 08/09/2023 MAGNESIUM LEVEL Lab Routine Malignant neoplasm of upper lobe of right lung Every Three Weeks for 99 Occurrences starting 08/09/2022 until 08/09/2023 documented as of this encounter Visit Diagnoses Diagnosis Malignant neoplasm of upper lobe of right lung- Primary Malignant neoplasm of upper lobe, bronchus or lung documented in this encounter Care Teams User Experience Lead Relationship Specialty Start Date End Date Etienne Maher DO [address] [facility] [address] [place] [address] PCP - General Internal Medicine 04/20/22 documented as of this encounter
--- OUTSIDE RECORDS SUMMARY | 2024-11-25 05:08 | XMS_ITS | Encounter Summary ---
Author Organization [facility] [employer] [facility] Address [address] [place] [address] Care Team Providers Care Turner Off Name Role Phone Etienne Maher DO Primary Care Provider [phone] Encounter Details Date Type Department Care Team (Late st Contact Info) Description 10/19/2022 Abstract [facility] Oncology and Hematology - [place] [address] [place] [address] [place] [address] Kailyn Gonzalez RN Social History Tobacco Use Types Packs/Day Years [...] Coronavirus/COVID-19? No / Unsure 10/05/2022 9:14 AM LOADING MANAGER documented as of this encounter Plan of Treatment Not on file documented as of this encounter Visit Diagnoses Not on filedocumented in this encounter Care Teams Turner Off Relationship Specialty Start Date End Date Etienne Maher DO [address] [place] [address] PCP - General Internal Medicine 04/20/22 documented as of this encounter
--- OUTSIDE RECORDS SUMMARY | 2024-11-25 05:08 | XMS_ITS | Encounter Summary ---
Author Organization [facility] Address [address] [place] [address] Care Team Providers Care Sales Floor Manager Name Role Phone Etienne Maher DO Primary Care Provider [phone] Encounter Details Date Type Department Care Team (Late st Contact Info) Description 12/11/2023 External Device Data [facility] ABSTRACTION Provider, Abstract [...] filedocumented in this encounter Care Teams Sales Floor Manager Relationship Specialty Start Date End Date Etienne Maher DO [address] [place] [address] PCP - General Internal Medicine 04/20/22 documented as of this encounter
--- OUTSIDE RECORDS SUMMARY | 2024-11-25 05:08 | XMS_ITS | Encounter Summary ---
Author Organization [facility] [employer] [facility] Address [address] [place] [address] Care Team Providers Care Sales Enablement Lead Name Role Phone Etienne Maher DO Primary Care Provider [phone] Encounter Details Date Type Department Care Team (Late st Contact Info) Description 07/08/2023 Orders Only [facility] Oncology and Hematology - [place] [address] [facility] [address] [place] [address] Matty Murry MD [address] [facility] [address] [place] [address] Malignant neoplasm of upper lobe [...] lung documented in this encounter Care Teams Sales Enablement Lead Relationship Specialty Start Date End Date Etienne Maher DO [address] [place] [address] [place] [address] PCP - General Internal Medicine 04/20/22 documented as of this encounter
--- OUTSIDE RECORDS SUMMARY | 2024-11-25 05:08 | XMS_ITS | Encounter Summary ---
Author Organization [facility] Address [address] [facility] [place] [address] Care Team Providers Care Business Analyst Manager Name Role Phone Etienne Maher DO Primary Care Provider [phone] Reason for Visit * Reason Onset Date Comments Appointment 03/20/2024 Encounter Details Date Type Department Care Team (Late st Contact Info) Description 03/20/2024 Telephone [facility] - Centralized Scheduling [address] [place] [address] Carrol Rojo, DENTAL PATIENT COORDINATOR-DIRECTOR AUTOMOTIVE [address] [facility] DEPT [place] [address] Appointment Social History Tobacco Use Types Packs/Day Years Used Date Smoking Tobacco: Never Assessed Sex and Gender Information Value Date Recorded Sex Assigned at Not on file Gender Identity Not on file Sexual Orientation Not on file documented as of this encounter Miscellaneous Notes * Telephone Encounter - Renée Rick - 03/20/2024 1:35 PM CDT Spoke to PT's care facility. Need to set up Clinic Support visit for cath change on 04.21.24 at [facility] per NURSING UNIT MANAGER Goodman NEELY. She sated she would have the nurse call us back to schedule. documented in this encounter Plan of Treatment Upcoming Encounters Date Type Department Care Team (Late Contact Info) Description 01/22/2025 1:15 PM POND TENDER Office Visit [facility] - Urology [address] [place] [phone] Jordan Noonan MD [address] [place] [address] documented as of this encounter Visit Diagnoses Not on filedocumented in this encounter Care Teams Business Analyst Manager Relationship Specialty Start Date End Date Etienne Maher DO [address] [place] [address] PCP - General 01/12/22 documented as of this encounter
--- OUTSIDE RECORDS SUMMARY | 2024-11-25 05:08 | XMS_ITS | Encounter Summary ---
Author Organization [facility] Address [address] [place] [address] Care Team Providers Care Turn Down Attendant Name Role Phone Etienne Maher DO Primary Care Provider [phone] Reason for Referral * CT Scan (Routine) - Closed Specialty Diagnoses / Procedures Referred By Ann frye Referred To Contact Diagnoses Malignant neoplasm of upper lobe of right lung Procedures [place] [address] [place] [address] [address] [place] [address] [place] [address] Referral ID Status Reason Start Date Expiration Date V isits Requested Visits Authorized [id number] Closed [facility] CTS 02/20/2023 03/21/2023 1 1 PASTEURIZER Reason for Visit * Reason Comments Cancer * Eval and Treat (Routine) - Closed Specialty Diagnoses / Procedures Referred By Ann t Referred To Contact Oncology Diagnoses Malignant neoplasm of unspecified part of unspecified bronchus or lung (CMS/HCC) Procedures Office visit level 3-5 Etienne Maher DO [address] [place] [address] [facility] Oncology And Hematology [place] [address] [facility] [address] [place] [address] Referral ID Status Reason Start Date Expiration Date Visits Re quested Visits Authorized [id number] Closed 04/19/2022 04/20/2023 12 12 Encounter Details Date Type Department Care Team (Late st Contact Info) Description 11/23/2022 10:30 AM EGG PASTEURIZER Office Visit [facility] Oncology and Hematology [facility] [address] [facility] [address] [place] [address] Matty Murry MD [address] [facility] [address] [place] [address] Malignant neoplasm of upper lobe of right lung (Primary Dx) Social History Tobacco Use Types Packs/Day Years Used Date Smoking Tobacco: Former Cigarettes Smokeless Tobacco: Never Tobacco Cessation:Counseling Given: Not Answered Comments:quit in 1999 Alcohol Use Standard Drinks/Week [...] Coronavirus/COVID-19? No / Unsure 11/23/2022 10:37 AM EGG PASTEURIZER documented as of this encounter Last Filed Vital Signs Vital Sign Reading Time Taken Comments Blood Pressure 114/63 11/23/2022 10:47 AM EGG PASTEURIZER Pulse 85 11/23/2022 10:47 AM EGG PASTEURIZER Temperature 36.8 ??C (98.2 ??F) 11/23/2022 10:[address] Respiratory Rate 16 11/23/2022 10:47 AM EGG PASTEURIZER Oxygen Saturation 94% 11/23/2022 10:47 AM EGG PASTEURIZER Inhaled Oxygen Concentration - - Weight - - Height - - Body Mass Index - - documented in this encounter Progress Notes * Matty Murry MD - 11/23/2022 11:18 AM CST HEMATOLOGY / ONCOLOGY PROGRESS NOTE Patient Identification: Name: Farhan Armstrong Age: 76 y.o. Sex: male : 1945 DIAGNOSIS T2 [...] 1/4 started on August 10, 2022 SUBJECTIVE Patient came into the office for follow-up visit. He has buttock wound is healing well. He denies any chest pain and shortness of breath remains tired and fatigued. No other new complaints. Review of system Constitutional: Patient did not mention fevers, sweats, complain of tiredness and fatigue HEENT: Patient did not [...] well 12 point review system was reviewed and as above Objective: Vital signs in last 24 hours: As per nursing note Exam: HEENT: Atraumatic, external ears normal, nose normal, oropharynx moist, no pharyngeal exudates. no sinus tenderness Neck- normal range of motion, no tenderness, supple Respiratory: No respiratory distress, normal breath sounds, no rales, no wheezing Cardiovascular: Normal rate, normal rhythm, no murmurs, no gallops, no rubs GI: Soft, nondistended, normal bowel sounds, nontender, no splenomegaly, no hepatomegaly, no mass, no rebound, no guarding : No costovertebral angle tenderness Musculoskeletal: No edema, no tenderness, no deformities. Back- no tenderness Integument: Well hydrated, no rash, patient has open wound at the buttock area with some serosanguineous discharge. Digits and nails inspection normal Lymphatic: No lymphadenopathy noted Neurologic: Alert & oriented x 3, CN 2-12 normal, normal motor function, normal sensory function, no focal deficits noted Examination as above PATH LABS Labs from August 10 showed WBC [...] carboplatin and Taxol on August 10, 2022. He did not show for the rest of the chemo as he was very tired and fatigued and developed open sores in the buttock area. CT chest done on November 16 showed right upper lobe mass decreased in size now measures 2.1 x 2 cm. Patient is still dealing with the buttock wound even though it is healing. He is not a candidate for any further chemotherapy. We will continue to observe and repeat CT scan in 3 months. Follow-up in3 months. TOBACCO COUNSELING He is not a tobacco user. 11/23/2022 Matty Murry MD PASTEURIZER documented in this encounter Plan of Treatment Scheduled Orders Name Type Priority Associated Diagnoses Orde r Schedule CT CHEST W CONTRAST Imaging Routine Malignant neoplasm of upper lobe of right lung Expected: 02/21/2023, Expires: 11/23/2023 documented as of this encounter Visit Diagnoses Diagnosis Malignant neoplasm of upper lobe of right lung- Primary Malignant neoplasm of upper lobe, bronchus or lung documented in this encounter Care Teams Turn Down Attendant Relationship Specialty Start Date End Date Etienne Maher DO [address] [facility] [address] [place] [address] PCP - General Internal Medicine 04/20/22 documented as of this encounter
--- OUTSIDE RECORDS SUMMARY | 2024-11-25 05:08 | XMS_ITS | Encounter Summary ---
Author Organization [facility] [employer] [facility] Address [address] [place] [address] Care Team Providers Care Poultry Hatchery Laborer Name Role Phone Etienne Maher DO Primary Care Provider [phone] Encounter Details Date Type Department Care Team (Late st Contact Info) Description 08/27/2022 Orders Only [facility] Oncology and Hematology - [place] [address] [facility] [address] [place] [address] Matty Murry MD [address] [facility] [address] [place] [address] Malignant neoplasm of upper lobe [...] lung documented in this encounter Care Teams Poultry Hatchery Laborer Relationship Specialty Start Date End Date Etienne Maher DO [address] [place] [address] PCP - General Internal Medicine 04/20/22 documented as of this encounter
--- OUTSIDE RECORDS SUMMARY | 2024-11-25 05:08 | XMS_ITS | Encounter Summary ---
Author Organization [facility] Address [address] [place] [address] Care Team Providers Care Can Capper Name Role Phone Etienne Maher DO Primary Care Provider [phone] Encounter Details Date Type Department Care Team (Late st Contact Info) Description 10/29/2023 External Device Data [facility] ABSTRACTION Provider, Abstract [...] on filedocumented in this encounter Care Teams Can Capper Relationship Specialty Start Date End Date Etienne Maher DO [address] [place] [address] PCP - General Internal Medicine 04/20/22 documented as of this encounter
--- OUTSIDE RECORDS SUMMARY | 2024-11-25 05:08 | XMS_ITS | Encounter Summary ---
Author Organization [facility] [employer] [facility] Address [address] [place] [address] Care Team Providers Care Fruit Vendor Name Role Phone Etienne Maher DO Primary Care Provider [phone] Encounter Details Date Type Department Care Team (Late st Contact Info) Description 08/10/2022 Abstract [facility] Oncology and Hematology - [place] [address] [place] [address] Kailyn Gonzalez RN Social History [...] on filedocumented in this encounter Care Teams Fruit Vendor Relationship Specialty Start Date End Date Etienne Maher DO [address] [place] [address] PCP - General Internal Medicine 04/20/22 documented as of this encounter
--- OUTSIDE RECORDS SUMMARY | 2024-11-25 05:08 | XMS_ITS | Encounter Summary ---
Author Organization [facility] Address [address] [place] [address] Care Team Providers Care System Engineer Name Role Phone Etienne Maher DO Primary Care Provider [phone] Encounter Details Date Type Department Care Team (Late st Contact Info) Description 12/13/2023 External Device Data [facility] ABSTRACTION Provider, Abstract [...] on filedocumented in this encounter Care Teams System Engineer Relationship Specialty Start Date End Date Etienne Maher DO [address] [place] [address] PCP - General Internal Medicine 04/20/22 documented as of this encounter
--- OUTSIDE RECORDS SUMMARY | 2024-11-25 05:08 | XMS_ITS | Encounter Summary ---
Author Organization [facility] Address [address] [place] [address] Care Team Providers Care Screw Cutter Name Role Phone Etienne Maher DO Primary Care Provider [phone] Reason for Visit * Reason Comments Establish Care Encounter Details Date Type Department Care Team (Late st Contact Info) Description 03/17/2024 8:15 AM CDT Office Visit [facility] - Urology [address] [place] [address], [place] [id number] Carrol Rojo, SLICING MACHINE OPERATOR/TENDER-CONTAINER PACKER OPERATOR [address] [place] [address] [place] [address] Urinary retention (Primary Dx) Social History Tobacco Use Types Packs/Day Years Used Date Smoking Tobacco: Never Assessed Sex and Gender Information Value Date Recorded Sex Assigned at Not on file Gender Identity Not on file Sexual Orientation Not on file documented as of this encounter Last Filed Vital Signs Vital Sign Reading Time Taken Comments Blood Pressure 123/71 03/17/2024 8:43 AM CDT Pulse 78 03/17/2024 8:43 AM CDT Temperature 36.1 ??C (97 ??F) 03/17/2024 8:43 AM CDT Respiratory Rate - - Oxygen Saturation 95% 03/17/2024 8:43 AM CDT Inhaled Oxygen Concentration - - Weight - - Height 175.3 cm (5' 9 ) 03/17/2024 8:43 AM CDT Body Mass Index - - documented in this encounter Progress Notes * Carrol Rojo, RADHA-CONTAINER PACKER OPERATOR - 03/20/2024 9:09 AM CDT [facility] Division of Urologic Surgery Carrol Rojo, SLICING MACHINE OPERATOR/TENDER-CONTAINER PACKER OPERATOR Date of Visit: 03/17/2024 Patient Name: Farhan Armstrong : 1945 Medical Record: [id number] Contact Phone: There are no phone numbers on file. Age: [age] year old Sex: male Referring Physician: No referring provider defined for this encounter. Chief Complaint: Chief Complaint Patient presents with ??? Establish Care History of Present Illness: The patient is a 78 year old white male who states he does not know why he is here. He is alone in his room. He has a catheter he states for about 6 months. No records or referral. Phone call made with facility staff who states I don't know why he is here. He was told to see you after his hospitalvisit in July . Neither patient or staff can recall what hospital he was at in July. She reviewed facility notes while on the phone with me and could not determine the reason for his visit.She states he has a catheter for retention but they do catheter care and management at their facility. Patient has no complaints today. TODAY 03/17/24 Patient is here with facility staff member. They both state they do not know why he is here today. Patient has a catheter, he again declines a voiding trial. He states he has not had a catheter change in several months . During catheter change it was noted that patient had a urethral tear and someblamy noted. He did not have a stat lock on. He said the catheter was pulled recently when a staff m ember tripped over the corral bag. Past Medical History; No past medical history on file. Past Surgical History: No past surgical history on file. Current Medications: Current Outpatient Medications Medication Sig Dispense Refill ??? acetaminophen (Tylenol) 325 MG tablet Take 1 (one) tablet by mouth every 4 hours as needed for Fever or Pain Maximum allowable Acetaminophen amount = 4 Grams (4000 mg) / 24 hours. ??? albuterol HFA (Proventil; Ventolin; Proair) 108 (90 Base) MCG/ACT inhaler Inhale 2 (two) puffs by mouth every 6 hours as needed ??? ascorbic acid (Vitamin C) 500 MG tablet Take 1 (one) tablet by mouth once daily ??? aspirin EC (Ecotrin) 81 MG tablet Take 1 (one) tablet by mouth once daily ??? bisacodyl (Dulcolax) 10 MG suppository Insert 1 (one) suppository into the rectum once daily asneeded for Constipation ??? buPROPion XL 24hr (Wellbutrin-XL) 300 MG tablet ??? Eliquis 5 MG tablet ??? gabapentin (Neurontin) 100 MG capsule ??? ipratropium (Atrovent) 0.02 % nebulizer solution Inhale 0.5 (one-half) mg by mouth every 6 hours ??? lactulose (Chronulac) 10 GM/15ML solution ??? levalbuterol 1.25 MG/0.5ML 1.25 mg in sodium chloride 0.9 % 3 mL Inhale 1.25 (one and one-quarter) mg by mouth ??? levothyroxine (Synthroid) 25 MCG tablet ??? methadone (Dolophine) 5 MG tablet ??? mirtazapine (Remeron) 15 MG tablet ??? multivitamin daily tablet Take 1 (one) tablet by mouth daily with food ??? ondansetron, disintegrating, (Zofran ODT) 8 MG tablet ??? oxyCODONE-acetaminophen (Percocet) 7.5-325 MG tablet ??? pantoprazole EC (Protonix) 40 MG tablet ??? polyethylene glycol 3350 (Miralax) 17 g packet Take by mouth once daily ??? potassium chloride ER (Klor-Con M) 20 MEQ tablet ??? rOPINIRole (Requip) 1 MG tablet ??? sucralfate (Carafate) 1 GM tablet ??? tamsulosin (Flomax) 0.4 MG capsule No current facility-administered medications for this visit. Allergies; Penicillins Family History: No family history on file. Social History: Social History Socioeconomic History ??? Marital status: Spouse name: Not on file ??? Number of children: Not on file ??? Years of education: Not on file ??? Highest education level: Not on file Occupational History ??? Not on file Tobacco Use ??? Smoking status: Not on file ??? Smokeless tobacco: Not on file Substance and Sexual Activity ??? Alcohol use: Not on file ??? Drug use: Not on file ??? Sexual activity: Not on file Other Topics Concern ??? Not on file Social History Narrative ??? Not on file Social Determinants of Health Financial Resource Strain: Not on file Food Insecurity: Not on file Transportation Needs: Not on file Stress: Not on file Housing Stability: Not on file Review of Systems: General: Negative Skin: Negative Eyes: Negative Ears/nose/mouth: Negative Lungs:Negative Heart:Negative Gastrointestinal: negative Genitourinary: See HPI Musculoskeletal: Negative Nervous system: Negative Reproductive system: Negative Hematologic: Negative Lymphatic: Negative Endocrine: Negative Physical Exam: Gen: Alert and oriented x3 Head: normocephalic Lungs: Non-labored respirations Heart: RRR Abd: soft, nontender, nondistended : no CVA tenderness, no suprapubic pain bilateral testicles descended Penis without lesion, circumcised, urethral tear MSK: wheelchair Skin: No rashes Vital Signs: BP 123/71 Pulse 78 Temp 97 ??F (36.1 ??C) (Temporal) Ht 1.753 m (5' 9 ) SpO2 95% PVR per bladder scanner: Imaging (images and reports reviewed): Laboratory Studies: No results found for this visit on 03/17/24. Microbiology: Pathology: No new path Diagnosis: Urinary retention Recommendations: - patient declined a voiding trial today. His catheter was changed during this visit. With his urethral tear, discussed the option of converting to SP tube. Patient is interested but hesitant and would like this discussed with his son - follow up visit for cath change and SP tube discussion scheduled for next month. Phone call made to son to review visit 30 minutes were spent with patient. >50% were spent counseling patient. Patient's questions were answered and patient agrees with plan. KEISHA Canales 03/20/2024 9:10 AM documented in this encounter Procedure Notes * Carrol Rojo APRN-CNP - 03/20/2024 9:18 AM CDTAssociated Order(s): PROC CATHETER CHANGE/INSERTION Pre-Procedure Diagnose(s): Urinary retention Catheter balloon was deflated and removed without incident. Meatus cleansed with betadine and lubricated catheter advanced to hub. Clear yellow urine return was noted and balloon was inflated with 9cc. Secured to right leg with stat lock KEISHA Canales documented in this encounter Plan of Treatment Upcoming Encounters Date Type Department Care Team (Late st Contact Info) Description 01/22/2025 1:15 PM DUMP TRUCK OPERATOR Office Visit [facility] - Urology [address] [place] [address] Jordan Noonan MD [address] [address] documented as of this encounter Procedures Procedure Name Priority Date/Time Associated Diagnosis Comments PROC CATHETER CHANGE/INSERTION Routine 03/20/2024 9:18 AM CDT Urinary retention documented in this encounter Results * PROC CATHETER CHANGE/INSERTION (03/20/2024 9:18 AM CDT) Narrative Carrol Rojo APRN-CNP - 03/20/2024 9:18 AM CDT Carrol Rojo APRN-CNP ? 03/20/2024 ??9:19 AM Catheter balloon was deflated and removed without incident. Meatus cleansed with betadine and lubricated catheter advanced to hub. Clear yellow urine return was noted and balloon was inflated with 9cc. Secured to right leg with stat lock KEISHA Canales Carrol VALDES PROCEDURE/MINOR SURGICAL ORDERABLES documented in this encounter Visit Diagnoses Diagnosis Urinary retention- Primary Retention of urine, unspecified documented in this encounter Care Teams Screw Cutter Relationship Specialty Start Date End Date Etienne Maher DO [address] [place] [address] PCP - General 01/12/22 documented as of this encounter
--- OUTSIDE RECORDS SUMMARY | 2024-11-25 05:08 | XMS_ITS | Encounter Summary ---
Author Organization [facility] Address [address] [place] [address] Care Team Providers Care Breaker Machine Tender Name Role Phone Etienne Maher DO Primary Care Provider [phone] Encounter Details Date Type Department Care Team (Late st Contact Info) Description 08/09/2022 Abstract [facility] Oncology and Hematology - [place] [address] [place] [address] Kailyn Gonzalez RN Social History [...] on filedocumented in this encounter Care Teams Breaker Machine Tender Relationship Specialty Start Date End Date Etienne Maher DO [address] [place] [address] PCP - General Internal Medicine 04/20/22 documented as of this encounter
--- OUTSIDE RECORDS SUMMARY | 2024-11-25 05:08 | XMS_ITS | Encounter Summary ---
Author Organization [facility] Address [address] [place] [address] Care Team Providers Care Paint Roller Covers Supervisor Name Role Phone Etienne Maher DO Primary Care Provider [phone] Encounter Details Date Type Department Care Team (Latest Contact Info) Description 10/29/2023 Travel Social History Tobacco Use Types Packs/Day Years Used Date Smoking Tobacco: Never Assessed Sex and Gender Information Value Date Recorded Sex Assigned at Not on file Gender Identity Not on file Sexual Orientation Not on file documented as of this encounter Plan of Treatment Upcoming Encounters Date Type Department Care Team (Late st Contact Info) Description 01/22/2025 1:15 PM CERT OCCUPATIONAL THERAPY ASST [facility] Urology [address] [place] [address] Jordan Noonan MD [address] [place] [address] documented as of this encounter Visit Diagnoses Not on filedocumented in this encounter Care Teams Paint Roller Covers Supervisor Relationship Specialty Start Date End Date Etienne Maher DO [address] [place] [address] PCP - General 01/12/22 documented as of this encounter
--- OUTSIDE RECORDS SUMMARY | 2024-11-25 05:08 | XMS_ITS | Encounter Summary ---
Author Organization [facility] Address [address] [place] [address] Care Team Providers Care Rn Neonatal Icu Name Role Phone Etienne Maher DO Primary Care Provider [phone] Encounter Details Date Type Department Care Team (Late st Contact Info) Description 06/25/2022 Orders Only [facility] Oncology and Hematology - [place] [address] [place] [address] Provider, Abstract NO ADDRESS ON [...] Procedure Name Priority Date/Time Associated Diagnosis Comments PULMONARY FUNCTION TEST Routine 06/22/2022 documented in this encounter Results * PULMONARY FUNCTION TEST (06/22/2022) Abstract Provider PFT ORDERABLES documented in this encounter Visit Diagnoses Not on filedocumented in this encounter Care Teams Rn Neonatal Icu Relationship Specialty Start Date End Date Etienne Maher DO [address] [place] [address] PCP - General Internal Medicine 04/20/22 documented as of this encounter
--- OUTSIDE RECORDS SUMMARY | 2024-11-25 05:08 | XMS_ITS | Encounter Summary ---
Author Organization [facility] Address [address] [place] [address] Care Team Providers Care Dental Prosthetist Name Role Phone Etienne Maher DO Primary Care Provider Encounter Details Date Type Department Care Team (Late st Contact Info) Description 08/20/2022 Abstract [facility] Oncology and Hematology - [place] [address] [place] [address] Kailyn Gonzalez RN Social History [...] on filedocumented in this encounter Care Teams Dental Prosthetist Relationship Specialty Start Date End Date Etienne Maher DO [address] [place] [address] PCP - General Internal Medicine 04/20/22 documented as of this encounter
--- OUTSIDE RECORDS SUMMARY | 2024-11-25 05:08 | XMS_ITS | Encounter Summary ---
Author Organization [facility] [email or web address] [facility] Address [address] [place] [address] Care Team Providers Care Adult Education Professional Name Role Phone Etienne Maher DO Primary Care Provider [phone] Encounter Details Date Type Department Care Team (Late st Contact Info) Description 02/11/2023 Orders Only [facility] Oncology and Hematology - [place] [address] [facility] [address] [place] [address] Matty Murry MD [address] [facility] [address] [place] [address] Malignant neoplasm of upper lobe [...] lung documented in this encounter Care Teams Adult Education Professional Relationship Specialty Start Date End Date Etienne Maher DO [address] [place] [address] PCP - General Internal Medicine 04/20/22 documented as of this encounter
--- OUTSIDE RECORDS SUMMARY | 2024-11-25 05:08 | XMS_ITS | Encounter Summary ---
Author Organization [facility] Address [address] [place] [address] Care Team Providers Care Rod Machine Operator Name Role Phone Etienne Maher DO Primary Care Provider [phone] Reason for Referral * Eval and Treat (Routine) - Closed Specialty Diagnoses / Procedures Referred By Ann t Referred To Contact Oncology Diagnoses Malignant neoplasm of right lung, [place] [address] [place] [address] [address] [place] [address] Referral ID Status Reason Start Date Expiration Date V isits Requested Visits Authorized [id number] Closed [facility] CTS 06/01/2022 06/02/2023 1 1 Reason for Visit * Reason Comments Follow Up * Eval and Treat (Routine) - Closed Specialty Diagnoses / Procedures Referred By Conttuan t Referred To Contact Oncology Diagnoses Malignant neoplasm of unspecified part of unspecified bronchus or lung (CMS/HCC) Procedures Office visit level 3-5 Etienne Maher DO [address] [place] [address] [facility] Oncology And Hematology [place] [address] [facility] [address] [place] [address] Referral ID Status Reason Start Date Expiration Date Visits Re quested Visits Authorized [id number] Closed 04/19/2022 04/20/2023 12 12 Encounter Details Date Type Department Care Team (Late st Contact Info) Description 06/01/2022 9:45 AM CDT Office Visit [facility] Oncology and Hematology - [place] [address] [facility] [address] [place] [address] Matty Murry MD [address] [facility] [address] [place] [address] Malignant neoplasm of right lung, [...] AM CDT documented as of this encounter Last Filed Vital Signs Vital Sign Reading Time Taken Comments Blood Pressure 128/70 06/01/2022 9:51 AM CDT Pulse 74 06/01/2022 9:51 AM CDT Temperature 36.5 ??C (97.7 ??F) 06/01/2022 9:51 AM CD T Respiratory Rate - - Oxygen Saturation 94% 06/01/2022 9:51 AM CDT Inhaled Oxygen Concentration - - Weight 96.6 kg (212 lb 14.4 oz) 06/01/2022 9:51 AM CDT Height 172.7 cm (5' 8 ) 06/01/2022 9:51 AM CDT Body Mass Index 32.37 06/01/2022 9:51 AM CDT documented in this encounter Progress Notes * Matty Murry MD - 06/01/2022 4:42 PM CDT HEMATOLOGY / ONCOLOGY PROGRESS NOTE Patient [...] gene rearrangement mutation not detected. CURRENT TREATMENT Expectant TREATMENT HISTORY SUBJECTIVE Patient came into the office for follow-up visit after his visit with Dr Salter. He denies any chest pain or shortness of breath. No bleeding and bruising. No other new complaints. Review of system Constitutional: Patient did not mention fevers, sweats, fatigue, malaise, weight loss HEENT: Patient did not mention sinus congestion, [...] blurry or disturbed vision, numbness/weakness, dizziness Skin: No lumps, bumps or rashes. 12 point review system was reviewed and as above Objective: Vital signs in last 24 hours: As per nursing note Exam: HEENT: Atraumatic, external ears normal, nose normal, oropharynx moist, no pharyngeal exudates. no sinus tenderness Neck- normal range of motion, no tenderness, supple Respiratory: No respiratory distress, normal breath sounds, no rales, no wheezing ?? Cardiovascular: Normal rate, normal rhythm, no murmurs, no gallops, no rubs GI: Soft, nondistended, normal bowel sounds, nontender, no splenomegaly, no hepatomegaly, no mass, no rebound, no guarding : No costovertebral angle tenderness Musculoskeletal: No edema, no tenderness, no deformities. Back- no tenderness Integument: Well hydrated, no rash, Digits and nails inspection normal Lymphatic: No lymphadenopathy noted Neurologic: Alert & oriented x 3, CN 2-12 normal, normal motor function, normal sensory function, no focal deficits noted PATH LABS @IMAGEIMP@ Assessment: Plan: Patient Active Problem List Diagnosis Date Noted ??? 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 I have also discussed this case with Dr. Francine Peterson. Patient is high risk stage II disease and will need adjuvant chemotherapy. We will avoid concurrent chemoradiation therapy due to patient age and performance status. Plan is to start radiation therapy treatment with SBRT and then to sequential chemotherapy with carboplatin and Taxol. I will refer him for chemotherapy teaching as well as port placement. TOBACCO COUNSELING He is not a tobacco user. 06/01/2022 Matty Murry MD documented in this encounter Plan of Treatment Scheduled Referrals Name Type Priority Associated Diagnoses Orde r Schedule AMB REFERRAL TO CHEMO TEACHING Outpatient Referral Routine Malignant neoplasm of right lung, unspecified part of lung Ordered: 06/01/2022 documented as of this encounter Visit Diagnoses Diagnosis Malignant neoplasm of right lung, unspecified part of lung- Primary documented in this encounter Care Teams Rod Machine Operator Relationship Specialty Start Date End Date Etienne Maher DO [address] [facility] [address] [place] [address] PCP - General Internal Medicine 04/20/22 documented as of this encounter
--- OUTSIDE RECORDS SUMMARY | 2024-11-25 05:08 | XMS_ITS | Encounter Summary ---
Author Organization [facility] Address [address] [place] [address] Care Team Providers Care Lieutenant Ballistics Name Role Phone Etienne Maher Primary Care Provider [phone] Reason for Referral * Radiology Services (Routine) - Closed Specialty Diagnoses / Procedures Referred By Contac t Referred To Contact Diagnostic Ultrasound Diagnoses Hematuria, gross Procedures US Retroperitoneal Complete Jordan Noonan MD [address] DIV [place] [address] Referral ID Status Reason Start Date Expiration Date Visits Re quested Visits Authorized [id number] Closed 09/25/2024 09/25/2025 1 1 Y PULLER Reason for Visit * Reason Comments Follow-up Encounter Details Date Type Department Care Team (Late st Contact Info) Description 09/25/2024 2:00 PM CANDY PULLER Office Visit [facility] - Urology [address] [place] [phone] Jordan Noonan MD [address] DIV [place] [address] Hematuria, gross (Primary Dx) Social History Tobacco Use Types [...] Comments Blood Pressure 113/66 09/25/2024 2:16 PM CANDY PULLER Pulse 88 09/25/2024 2:16 PM CANDY PULLER Temperature 37 ??C (98.6 ??F) 09/25/2024 2:16 PM CANDY PULLER Respiratory Rate - - Oxygen Saturation 96% 09/25/2024 2:16 PM CANDY PULLER Inhaled Oxygen Concentration - - Weight 72.6 kg (160 lb) 09/25/2024 2:16 PM CANDY PULLER Height 175.3 cm (5' 9 ) 09/25/2024 2:16 PM CANDY PULLER Body Mass Index 23.63 09/25/2024 2:16 PM CANDY PULLER documented in this encounter Progress Notes * Jordan Noonan MD - 09/25/2024 2:34 PM CST Images from the original note were not included. [facility] Division of Urologic Surgery Jordan Noonan MD Date of Visit: 09/25/2024 Patient Name: Farhan Armstrong : 1945 Medical Record: [id number] (home) Age: [age] year old Sex: male Referring Provider: Etienne Maher DO [address] [place] [id number] Chief Complaint/Reason for Visit: Chief Complaint Patient presents with Follow-up History of Present Illness: Farhan Armstrong is [...] has mobility issue, unable to walk. In shelter facility He thinks he has seen some [...] muscle once daily as needed for Nausea/Vomiting trospium (Sanctura) 20 MG tablet Take 1 (one) tablet by mouth 2 times daily 120 tablet 3 No current facility-administered medications for this visit. [...] Cigarettes Smokeless tobacco: Never Vaping Use Vaping status: Never Used Substance and Sexual Activity Alcohol use: Not [...] Not on file Physical Exam: Vital Signs: Vitals: 09/25/24 1416 BP: 113/66 Pulse: 88 Temp: 98.6 ??F (37 ??C) SpO2: 96% Weight: 72.6 kg (160 lb) Height: 1.753 m (5' 9 ) General: alert, in no acute distress Cardiovascular: [...] , WBCU , SQUAMOUS in the last 29963 hours. No results for input(s): COLORU , CLARITYU , LABSPEC , PHUR , PROTEINU , GLUCOSERUR , KETONES , BILIRUBINUR , BLOODU , NITRITE , LEUKOCYTE , UROBILINUA , RBCUA , RBCU , WBCU , SQUAMOUS in the last 47690 hours. No results found for: PSA No results for input(s): CREATININE , EGFR in the last 04755 hours. Assessment and Recommendations: Urinary retention of unclear etiology - discussed SPT with me or IR. Discussed that given his age and prior surgical history, and medicalissues and debility on O2 3L, surgery is not without risk. -- we agreed to reasses erosion in penis in 4 months Gross hematuria -- recommend cysto. They will think about it. -- recommend CT urogram. They will go ahead and get it. Will fax orders to [facility] in [place] OAB --symptoms of OAB with corral. -- Trospium trial for 30 days. Reviewed side effects. Unable to find pharmacy. Facility name is [facility]. Will check with clinic RN. They are not able to decide whether they would like to proceed with plan today. He will let me knowonce he decides. Name of intermediate [facility]: [phone] Jordan Noonan MD Division of Urologic Surgery [facility] XXX Y PULLER * Jordan Noonan MD - 09/25/2024 2:34 PM CST Images from the original note were not included. [facility] Division of Urologic Surgery Jordan Noonan MD Date of Visit: 09/25/2024 Patient Name: Farhan Armstrong : 1945 Medical Record: [id number] (home) Age: [age] year old Sex: male Referring Provider: Etienne Maher DO [address] [place] [address] Chief Complaint/Reason for Visit: Chief Complaint Patient presents with Follow-up History of Present Illness: Farhan Armstrong is a 78 year old male being seen today for SPT discussion 78-year-old male with multiple medical comorbidities, has Corral being changed at facility every 4 weeks. Says he had multiple hernia surgeries. On 2.5 L of oxygen. Has sx of OAB w shayna Has had corral for some time and not sure why. He has mobility issue, unable to walk. In shelter facility He thinks he has seen some [...] muscle once daily as needed for Nausea/Vomiting trospium (Sanctura) 20 MG tablet Take 1 (one) tablet by mouth 2 times daily 120 tablet 3 No current facility-administered medications for this visit. [...] Cigarettes Smokeless tobacco: Never Vaping Use Vaping status: Never Used Substance and Sexual Activity Alcohol use: Not [...] Not on file Physical Exam: Vital Signs: Vitals: 09/25/24 1416 BP: 113/66 Pulse: 88 Temp: 98.6 ??F (37 ??C) SpO2: 96% Weight: 72.6 kg (160 lb) Height: 1.753 m (5' 9 ) General: alert, in no acute distress Cardiovascular: [...] , WBCU , SQUAMOUS in the last 24905 hours. No results for input(s): COLORU , CLARITYU , LABSPEC , PHUR , PROTEINU , GLUCOSERUR , KETONES , BILIRUBINUR , BLOODU , NITRITE , LEUKOCYTE , UROBILINUA , RBCUA , RBCU , WBCU , SQUAMOUS in the last 77803 hours. No results found for: PSA No results for input(s): CREATININE , EGFR in the last 90848 hours. Assessment and Recommendations: Urinary retention of unclear etiology - discussed SPT with me or IR. Discussed that given his age and prior surgical history, and medicalissues and debility on O2 3L, surgery is not without risk. -- we agreed to reasses erosion in penis in 4 months Gross hematuria -- recommend cysto. They are hesitant and will think about it. -- recommend CTU. They will go ahead and get it. Will fax orders to [facility] in [place] OAB --symptoms of OAB with corral. -- I called and spoke with the patient's nurse at his facility who explained that his urinary incontinence and bladder spasms with the Corral has significantly improved after starting trospium. There is also stated that he has had no major issues with the Corral, and no recent hospitalizations for urinary tract infection, though several hospitalizations for pneumonia. There is also explained that he has not had any gross hematuria as of recent. Name of intermediate [facility] [place]: [phone], nursing staging B Jordan Noonan MD Division of Urologic Surgery [facility] XXXffss Y PULLER documented in this encounter Plan of Treatment Upcoming Encounters Date Type Department Care Team (Late st Contact Info) Description 01/22/2025 1:15 PM CANDY PULLER Office Visit [facility] - Urology [address] [address] Jordan Noonan MD [address] [facility] [address] [facility] [place] [address] Scheduled Orders Name Type Priority Associated Diagnoses Orde r Schedule US Retroperitoneal Complete Imaging Routine Hematuria, gross 1 Occurrences starting 09/25/2024 until 09/25/2025 documented as of this encounter Procedures Procedure Name Priority Date/Time Associated Diagnosis Comments CYTOLOGY NON-FLOOR MECHANIC PANEL (STL) Routine 09/25/2024 4:22 PM CANDY PULLER Hematuria, gross documented in this encounter Results * CYTOLOGY NON-FLOOR MECHANIC PANEL (STL) (09/25/2024 4:22 PM CANDY PULLER) Case Report Medical Cytology Report ? Case: [id number] ? Authorizing Provider: ??Jordan Noonan MD ? Collected: ? 09/25/2024 04:22 PM ? Ordering Location: ? [facility] - ??Received: ?09/28/2024 07:38 AM ? Urology ? Pathologist: ? Hank Mata MD ? Specimen: ?Urine ? 09/29/2024 12:50 PM CANDY PULLER [facility] Specimen Adequacy Adequate cellularity for evaluation. 09/29/2024 12:50 PM [facility] Final Diagnosis Urine, cytology: - Negative for high-grade urothelial carcinoma 09/29/2024 12:50 PM [facility] Clinical History The patient is a 78-year-old male with gross hematuria and history of Corral catheterization 09/29/2024 12:50 PM [facility] Gross Description 1 pap stained cytospin slide from 100cc dark yellow fluid 09/29/2024 12:50 PM CANDY PULLER [facility] Microscopic Description Microscopic examination substantiates the final diagnosis. 09/29/2024 12:50 PM [facility] Pathologist Location at [facility] 09/29/2024 12:50 PM [facility] Disclaimer The performance characteristics of all immunohistochemical and indirect immunofluorescence stains (if any) cited in this report were determined by the Histopathology Laboratory of [facility]. Some of these tests rely on the use of analyte-specific reagents and are subject to specific labeling requirements by the US Food and Drug Administration. Such tests were developed by the Histology Laboratory of [facility] and have not been cleared or [...] the attending (teaching) pathologist. 09/29/2024 12:50 PM CANDY PULLER [facility] Embedded Images 09/29/2024 12:50 PM CANDY PULLER [facility] Pathology/Cytolo gy URINE / Unknown Collection / Unknown 09/25/2024 4:22 PM CANDY PULLER 09/28/2024 7:38 AM CANDY PULLER Jordan Noonan MD LAB - PATHOLOGY/CYTO LOGY ORDERABLES Performing Organization Address [facility] Co de Phone Number [facility] [address] [phone] documented in this encounter Visit Diagnoses Diagnosis Hematuria, gross- Primary Gross hematuria documented in this encounter Care Teams Lieutenant Ballistics Relationship Specialty Start Date End Date Etienne Maher DO [address] [place] [address] PCP - General 01/12/22 documented as of this encounter
--- OUTSIDE RECORDS SUMMARY | 2024-11-25 05:08 | XMS_ITS | Encounter Summary ---
Author Organization [facility] [employer] [facility] Address [address] [place] [address] Care Team Providers Care Investigations Manager Name Role Phone Etienne Maher DO Primary Care Provider [phone] Encounter Details Date Type Department Care Team (Late st Contact Info) Description 03/04/2023 Orders Only [facility] Oncology and Hematology - [place] [facility] [address] [place] [address] Matty Murry MD [address] [facility] [address] [place] [address] Malignant neoplasm of upper lobe [...] lung documented in this encounter Care Teams Investigations Manager Relationship Specialty Start Date End Date Etienne Maher DO [address] [place] [phone] PCP - General Internal Medicine 04/20/22 documented as of this encounter
--- OUTSIDE RECORDS SUMMARY | 2024-11-25 05:08 | XMS_ITS | Encounter Summary ---
Author Organization [facility] Address [address] Valdovinosn: Epic Prelude ADT [place] [address] Care Team Providers Care Archeology Faculty Member Name Role Phone Etienne Maher DO Primary Care Provider [phone] Encounter Details Date Type Department Care Team (Latest Contact Info) Description 06/01/2022 Travel Social History Tobacco Use Types Packs/Day [...] on filedocumented in this encounter Care Teams Archeology Faculty Member Relationship Specialty Start Date End Date Etienne Maher DO [address] [place] [address] PCP - General Internal Medicine 04/20/22 documented as of this encounter
--- OUTSIDE RECORDS SUMMARY | 2024-11-25 05:08 | XMS_ITS | Encounter Summary ---
Author Organization [facility] [employer] [facility] Address [address] [place] [address] Care Team Providers Care Stockroom Attendant Name Role Phone Etienne Maher DO Primary Care Provider [phone] Encounter Details Date Type Department Care Team (Late st Contact Info) Description 11/19/2022 Orders Only [facility] Oncology and Hematology - [place] [address] [facility] [address] [place] [address] Matty Murry MD [address] [facility] [address] [place] [address] Malignant neoplasm of upper lobe [...] lung documented in this encounter Care Teams Stockroom Attendant Relationship Specialty Start Date End Date Etienne Maher DO [address] [place] [address] PCP - General Internal Medicine 04/20/22 documented as of this encounter
--- OUTSIDE RECORDS SUMMARY | 2024-11-25 05:08 | XMS_ITS | Encounter Summary ---
Author Organization [facility] [employer] [facility] Address [address] [place] [address] Care Team Providers Care Television News Video Editor Name Role Phone Etienne Maher DO Primary Care Provider [phone] Encounter Details Date Type Department Care Team (Late st Contact Info) Description 03/01/2023 Orders Only [facility] Oncology and Hematology - [address] [place] [address] Kailyn Gonzalez RN Malignant neoplasm of upper lobe of right [...] lung documented in this encounter Care Teams Television News Video Editor Relationship Specialty Start Date End Date Etienne Maher DO [address] [place] [address] PCP - General Internal Medicine 04/20/22 documented as of this encounter
--- OUTSIDE RECORDS SUMMARY | 2024-11-25 05:08 | XMS_ITS | Encounter Summary ---
Author Organization [facility] [employer] [facility] Address [address] [place] [address] Care Team Providers Care Application Engineer Name Role Phone Etienne Maher DO Primary Care Provider [phone] Encounter Details Date Type Department Care Team (Late st Contact Info) Description 06/06/2022 Abstract [facility] Oncology and Hematology - [address] [place] [address] Sarahy Espana Social History Tobacco Use Types Packs/Day Years [...] on filedocumented in this encounter Care Teams Application Engineer Relationship Specialty Start Date End Date Etienne Maher DO [address] [place] [address] PCP - General Internal Medicine 04/20/22 documented as of this encounter
--- OUTSIDE RECORDS SUMMARY | 2024-11-25 05:08 | XMS_ITS | Encounter Summary ---
Author Organization [facility] Address [address] [place] [address] Care Team Providers Care Farm Labor Contractor Name Role Phone Etienne Maher DO Primary Care Provider [phone] Encounter Details Date Type Department Care Team (Late st Contact Info) Description 12/15/2023 External Device Data STL ABSTRACTION Provider, Abstract [...] on filedocumented in this encounter Care Teams Farm Labor Contractor Relationship Specialty Start Date End Date Etienne Maher DO [address] [place] [address] PCP - General Internal Medicine 04/20/22 documented as of this encounter
--- OUTSIDE RECORDS SUMMARY | 2024-11-25 05:08 | XMS_ITS | Encounter Summary ---
Author Organization [facility] [employer] Address [address] [place] [address] Care Team Providers Care Oxyacetylene Cutter Name Role Phone Etienne Maher DO Primary Care Provider [phone] Encounter Details Date Type Department Care Team (Late st Contact Info) Description 10/29/2022 Orders Only [facility] Oncology and Hematology - G[place] [address] [facility] [address] [place] [address] Matty Murry MD [address] [facility] [address] [place] [address] Malignant neoplasm of upper lobe [...] Coronavirus/COVID-19? No / Unsure 10/05/2022 9:14 AM INSTRUMENT AND CONTROL TECHNICIAN documented as of this encounter Plan of Treatment Not on file documented as of this encounter Visit Diagnoses Diagnosis Malignant neoplasm of upper lobe of right lung Malignant neoplasm of upper lobe, bronchus or lung documented in this encounter Care Teams Oxyacetylene Cutter Relationship Specialty Start Date End Date Etienne Maher DO [address] [place] [address] PCP - General Internal Medicine 04/20/22 documented as of this encounter
--- OUTSIDE RECORDS SUMMARY | 2024-11-25 05:08 | XMS_ITS | Encounter Summary ---
Author Organization [facility] [employer] [facility] Address [address] [place] [address] Care Team Providers Care Geometry Teacher Name Role Phone Etienne Maher DO Primary Care Provider [phone] Encounter Details Date Type Department Care Team (Late st Contact Info) Description 06/04/2022 Abstract [facility] Oncology and Hematology - [address] [place] [address] Sarahy Espana Social History Tobacco Use Types [...] on filedocumented in this encounter Care Teams Geometry Teacher Relationship Specialty Start Date End Date Etienne Maher DO [address] [place] [address] PCP - General Internal Medicine 04/20/22 documented as of this encounter
--- OUTSIDE RECORDS SUMMARY | 2024-11-25 05:08 | XMS_ITS | Encounter Summary ---
Author Organization [facility] [employer] [facility] Address [address] [place] [address] Care Team Providers Care Senior Center Director Name Role Phone Etienne Maher DO Primary Care Provider [phone] Encounter Details Date Type Department Care Team (Late st Contact Info) Description 09/17/2022 Orders Only [facility] Oncology and Hematology - [address] [facility] [address] [place] [address] Matty Muryr MD [address] [facility] [address] [place] [address] Malignant neoplasm of upper lobe [...] lung documented in this encounter Care Teams Senior Center Director Relationship Specialty Start Date End Date Etienne Maher DO [address] [place] [address] PCP - General Internal Medicine 04/20/22 documented as of this encounter
--- OUTSIDE RECORDS SUMMARY | 2024-11-25 05:08 | XMS_ITS | Encounter Summary ---
Author Organization [facility] [employer] [facility] Address [address] [place] [address] Care Team Providers Care Senior Field Service Engineer Name Role Phone Etienne Maher DO Primary Care Provider [phone] Encounter Details Date Type Department Care Team (Late st Contact Info) Description 06/17/2023 Orders Only [facility] Oncology and Hematology - [address] [facility] [address] [place] [address] Matty Murry MD [address] [facility] [address] [place] [address] Malignant neoplasm of upper lobe [...] documented in this encounter Care Teams Senior Field Service Engineer Relationship Specialty Start Date End Date Etienne Maher DO [address] [place] [address] PCP - General Internal Medicine 04/20/22 documented as of this encounter
--- OUTSIDE RECORDS SUMMARY | 2024-11-25 05:08 | XMS_ITS | Encounter Summary ---
Author Organization [facility] [employer] [facility] Address [address] [place] [address] Care Team Providers Care Cut Out Stitcher Name Role Phone Etienne Maher DO Primary Care Provider [phone] Encounter Details Date Type Department Care Team (Late st Contact Info) Description 08/29/2022 Orders Only [facility] Oncology and Hematology - [address] [facility] [address] [place] [address] Matty Murry MD [address] [facility] [address] [place] [address] Malignant neoplasm of right lung, unspecified part of lung Social History Tobacco Use Types Packs/Day [...] of right lung, unspecified part of lung documented in this encounter Care Teams Cut Out Stitcher Relationship Specialty Start Date End Date Etienne Maher DO [address] [place] [address] PCP - General Internal Medicine 04/20/22 documented as of this encounter
--- OUTSIDE RECORDS SUMMARY | 2024-11-25 05:08 | XMS_ITS | Encounter Summary ---
Author Organization [facility] [employer] [facility] Address [address] [place] [address] Care Team Providers Care Staffing Recruiter Name Role Phone Etienne Maher DO Primary Care Provider [phone] Encounter Details Date Type Department Care Team (Late st Contact Info) Description 10/05/2022 Orders Only [facility] Oncology and Hematology - [address] [place] [address] Kailyn Gonzalez RN Malignant neoplasm [...] Coronavirus/COVID-19? No / Unsure 10/05/2022 9:14 AM AGENT SPA DESK documented as of this encounter Plan of Treatment Not on file documented as of this encounter Procedures Procedure Name Priority Date/Time Associated Diagnosis Comments COMPREHENSIVE METABOLIC PANEL Routine 10/05/2022 documented in this encounter Results * COMPREHENSIVE METABOLIC PANEL (10/05/2022) Blood Matty Murry MD CHEMISTRY ORDERABLES documented in this encounter Visit Diagnoses Diagnosis Malignant neoplasm of upper lobe of right lung Malignant neoplasm of upper lobe, bronchus or lung documented in this encounter Care Teams Staffing Recruiter Relationship Specialty Start Date End Date Etienne Maher DO [address] [facility] [address] [facility] [address] [place] [address] PCP - General Internal Medicine 04/20/22 documented as of this encounter
--- OUTSIDE RECORDS SUMMARY | 2024-11-25 05:08 | XMS_ITS | Encounter Summary ---
Author Organization [facility] [employer] [facility] Address [address] [place] [address] Care Team Providers Care Pipe Covering Molder Name Role Phone Etienne Maher DO Primary Care Provider [phone] Encounter Details Date Type Department Care Team (Late st Contact Info) Description 01/21/2023 Orders Only [facility] Oncology and Hematology - [address] [facility] [address] [place] [address] Matty Murry MD [address] [facility] [address] [place] [address] Malignant neoplasm of upper lobe [...] lung documented in this encounter Care Teams Pipe Covering Molder Relationship Specialty Start Date End Date Etienne Maher DO [address] [place] [address] PCP - General Internal Medicine 04/20/22 documented as of this encounter
--- OUTSIDE RECORDS SUMMARY | 2024-11-25 05:08 | XMS_ITS | Encounter Summary ---
Author Organization [facility] Address [address] [place] [address] Care Team Providers Care Airframe Technical Officer Name Role Phone Etienne Maher DO Primary Care Provider [phone] Encounter Details Date Type Department Care Team (Latest Contact Info) Description 07/27/2024 Travel Social History Tobacco Use Types Packs/Day Years Used Date Smoking Tobacco: Former Cigarettes Smokeless Tobacco: Never Sex and Gender Information Value Date Recorded Sex Assigned at Not on file Gender Identity Not on file Sexual Orientation Not on file documented as of this encounter Plan of Treatment Upcoming Encounters Date Type Department Care Team (Late st Contact Info) Description 01/22/2025 1:15 PM HOSPITAL WARD CLERK Office Visit [facility] - Urology [address] [place] [phone] Jordan Noonan MD [address] [place] [address] documented as of this encounter Visit Diagnoses Not on filedocumented in this encounter Care Teams Airframe Technical Officer Relationship Specialty Start Date End Date Etienne Maher DO [address] [place] [address] PCP - General 01/12/22 documented as of this encounter
--- OUTSIDE RECORDS SUMMARY | 2024-11-25 05:08 | XMS_ITS | Encounter Summary ---
Author Organization [facility] Address [address] [place] [address] Care Team Providers Care Application Security Consultant Name Role Phone Etienne Maher Primary Care Provider [phone] Encounter Details Date Type Department Care Team (Latest Contact Info) Description 09/25/2024 4:08 PM PRECAST CONCRETE IRONWORKER - 09/25/2024 11:59 PM [facility] Hospital Encounter [facility] OP DRAW STATION [address] [place] [phone] Discharge Disposition: Home or Self Care Social History Tobacco Use Types Packs/Day Years Used Date Smoking Tobacco: Former Cigarettes Smokeless Tobacco: Never Sex and Gender Information Value Date Recorded Sex Assigned at Not on file Gender Identity Not on file Sexual Orientation Not on file documented as of this encounter Medications at Time of Discharge Medication Sig Dispensed Refills Start Date End Date acetaminophen (Tylenol) 325 MG tablet Take 1 (one) tablet by mouth every 4 hours as needed for Fever or Pain Maximum allowable Acetaminophen amount = 4 Grams (4000 mg) / 24 hours. albuterol HFA (Proventil; Ventolin; Proair) 108 (90 Base) MCG/ACT inhaler Inhale 2 (two) puffs by mouth every 6 hours as needed AMINO ACIDS-PROTEIN HYDROLYS PO Take 30 mL [...] (one) tablet by mouth once daily 10/03/2023 FLUoxetine (PROzac) 20 MG capsule 02/20/2024 gabapentin (Neurontin) 100 MG capsule Take 1 (one) capsule by mouth 3 times daily 10/11/2023 ipratropium (Atrovent) 0.02 % nebulizer solution Inhale 0.5 (one-half) mg by mouth every 6 hours lactulose (Chronulac) 10 GM/15ML solution Take by mouth 3 times daily 10/14/2023 levalbuterol 1.25 MG/0.5ML 1.25 mg in sodium chloride 0.9 % 3 mL Inhale 1.25 mg by mouth every 6 hours as needed levothyroxine (Synthroid) 25 MCG tablet Take 1 (one) tablet by mouth once daily 07/23/2023 methadone (Dolophine) 5 MG tablet Take 1 (one) tablet by mouth 2 times daily 10/15/2023 mirtazapine (Remeron) 15 MG tablet Take 1 (one) tablet by mouth at bedtime 09/22/2023 multivitamin daily tablet Take 1 (one) tablet by mouth daily with food ondansetron, disintegrating, (Zofran ODT) 8 MG tablet Take 1 (one) tablet by mouth every 8 hours as needed 10/22/2023 oxyCODONE-acetaminoph en (Percocet) 7.5-325 MG tablet 10/14/2023 pantoprazole EC (Protonix) 40 MG tablet Take 1 (one) tablet by mouth once daily 10/27/2023 phenazopyridine (Pyridium) 100 MG tablet 06/23/2024 polyethylene glycol 3350 (Miralax) 17 g packet Take 17 (seventeen) g by mouth once potassium chloride ER (Klor-Con M) 20 MEQ tablet Take 1 (one) tablet by mouth 2 times daily 09/28/2023 rOPINIRole (Requip) 1 MG tablet Take 1 (one) tablet by mouth at bedtime 10/20/2023 sucralfate (Carafate) 1 GM tablet Take 1 (one) tablet by mouth 3 times daily 09/14/2023 tamsulosin (Flomax) 0.4 MG capsule Take 1 (one) capsule by mouth at bedtime 10/03/2023 trimethobenzamide (Tigan) injection Inject 1 mL into muscle once daily as needed for Nausea/Vomiting trospium (Sanctura) 20 MG tablet Take 1 (one) tablet by mouth 2 times daily 120 tablet 3 08/17/2024 documented as of this encounter Plan of Treatment Upcoming Encounters Date Type Department Care Team (Late st Contact Info) Description 01/22/2025 1:15 PM PRECAST CONCRETE IRONWORKER Office Visit [facility] - Urology [address] [place] [address] Jordan Noonan MD [address] [place] [address] documented as of this encounter Visit Diagnoses Not on filedocumented in this encounter Care Teams Application Security Consultant Relationship Specialty Start Date End Date Etienne Maher DO [address] [place] [address] PCP - General 01/12/22 documented as of this encounter
--- OUTSIDE RECORDS SUMMARY | 2024-11-25 05:08 | XMS_ITS | Encounter Summary ---
Author Organization [facility] Address [address] [place] [address] Care Team Providers Care Funder Name Role Phone Etienne Maher DO Primary Care Provider [phone] Encounter Details Date Type Department Care Team (Late st Contact Info) Description 10/30/2023 External Device Data STL ABSTRACTION Provider, Abstract [...] on filedocumented in this encounter Care Teams Funder Relationship Specialty Start Date End Date Etienne Maher DO [address] [place] [address] PCP - General Internal Medicine 04/20/22 documented as of this encounter
--- OUTSIDE RECORDS SUMMARY | 2024-11-25 05:08 | XMS_ITS | Encounter Summary ---
Author Organization [facility] Address [address] [place] [address] Care Team Providers Care Openstack Cloud Consulting Architect Name Role Phone Etienne Maher DO Primary Care Provider [phone] Reason for Referral * CT Scan (Routine) - Closed Specialty Diagnoses / Procedures Referred By Ann frye Referred To Contact Diagnoses Malignant neoplasm of upper lobe of right lung Procedures [place] [address] [place] [address] [address] [place] [address] [place] [address] Referral ID Status Reason Start Date Expiration Date V isits Requested Visits Authorized [id number] Closed STL CTS 11/16/2022 02/14/2023 1 1 ENGINEER Reason for Visit * Reason Comments Cancer * Eval and Treat (Routine) - Closed Specialty Diagnoses / Procedures Referred By Ann t Referred To Contact Oncology Diagnoses Malignant neoplasm of unspecified part of unspecified bronchus or lung (CMS/HCC) Procedures Office visit level 3-5 Etienne Maher DO [address] [place] [address] [facility] Oncology And Hematology [place] [address] [facility] [address] [place] [address] Referral ID Status Reason Start Date Expiration Date Visits Re quested Visits Authorized [id number] Closed 04/19/2022 04/20/2023 12 12 Encounter Details Date Type Department Care Team (Late st Contact Info) Description 10/05/2022 8:45 AM RF ENGINEER Office Visit [facility] Oncology and Hematology - [place] [address] [facility] [address] [place] [address] Matty Murry MD [address] [facility] [address] [place] [address] Wound of buttock, unspecified laterality, initial encounter (Primary Dx); Malignant neoplasm of upper lobe of right [...] Coronavirus/COVID-19? No / Unsure 10/05/2022 9:14 AM RF ENGINEER documented as of this encounter Last Filed Vital Signs Vital Sign Reading Time Taken Comments Blood Pressure 116/60 10/05/2022 9:19 AM RF ENGINEER Pulse 88 10/05/2022 9:19 AM RF ENGINEER Temperature 36.4 ??C (97.6 ??F) 10/05/2022 9:19 AM CS T Respiratory Rate 16 10/05/2022 9:19 AM RF ENGINEER Oxygen Saturation 92% 10/05/2022 9:19 AM RF ENGINEER Inhaled Oxygen Concentration - - Weight 88.7 kg (195 lb 9.6 oz) 10/05/2022 9:19 A M RF ENGINEER Height - - Body Mass Index 29.74 08/10/2022 8:51 AM CDT documented in this encounter Progress Notes * Matty Murry MD - 10/05/2022 10:18 AM CST HEMATOLOGY / ONCOLOGY PROGRESS NOTE [...] into the office for follow-up visit. He only received 1 chemotherapy treatment in August 10 and developed open wound in buttocks. He has been quite tired and fatigued. He also have some sores in the left foot bottom. Denies any other new complaints. Review of system Constitutional: Patient did not mention fevers, sweats, complain of tiredness and fatigue with 13 pound weight loss HEENT: Patient did not mention [...] blurry or disturbed vision, numbness/weakness, dizziness Skin: Patient has open wound in the buttock with some bloody drainage and also there is a spot on the bottom of the left foot with possible infection. 12 point review system was reviewed and [...] 13.6 platelet 144,000 creatinine 1.5 Labs from N1 show WBC 10.4 hemoglobin 12.2 platelet 187,000 creatinine 1.3 Assessment: Plan: Patient Active Problem List Diagnosis [...] developed open sores in the buttock area. I am not sure patient can continue any further chemotherapy at this point as his buttock wound area look infected. I will order CT chest in 6 weeks and follow-up in 7 weeks. Buttock wound. I will send him to wound care and will start him on Keflex 500 mg 4 times daily for 2 weeks. TOBACCO COUNSELING He is not a tobacco user. 10/05/2022 Matty Murry MD ENGINEER documented in this encounter Plan of Treatment Scheduled Orders Name Type Priority Associated Diagnoses Orde r Schedule CT CHEST W CONTRAST Imaging Routine Malignant neoplasm of upper lobe of right lung Expected: 11/16/2022, Expires: 10/05/2023 CBC WITH DIFFERENTIAL Lab Stat Malignant neoplasm of upper lobe of right lung Expected: 11/12/2022, Expires: 10/05/2023 documented as of this encounter Visit Diagnoses Diagnosis Wound of buttock, unspecified laterality, initial encounter- Primary Malignant neoplasm of upper lobe of right lung Malignant neoplasm of upper lobe, bronchus or lung documented in this encounter Care Teams Openstack Cloud Consulting Architect Relationship Specialty Start Date End Date Etienne Maher DO [address] [facility] [address] [facility] [address] [place] [address] PCP - General Internal Medicine 04/20/22 documented as of this encounter
--- OUTSIDE RECORDS SUMMARY | 2024-11-25 05:08 | XMS_ITS | Encounter Summary ---
Author Organization [facility] [employer] [facility] Address [address] [place] [address] Care Team Providers Care Lapel Stitcher Name Role Phone Etienne Maher DO Primary Care Provider [phone] Encounter Details Date Type Department Care Team (Late st Contact Info) Description 10/22/2022 Abstract [facility] Oncology and Hematology - [place] [address] [place] [address] Larissa Velez Social History Tobacco Use Types Packs/Day Years [...] Coronavirus/COVID-19? No / Unsure 10/05/2022 9:14 AM ARMORED CAR GUARD AND DRIVER documented as of this encounter Plan of Treatment Not on file documented as of this encounter Visit Diagnoses Not on filedocumented in this encounter Care Teams Lapel Stitcher Relationship Specialty Start Date End Date Etienne Maher DO [address] [place] [address] PCP - General Internal Medicine 04/20/22 documented as of this encounter
--- OUTSIDE RECORDS SUMMARY | 2024-11-25 05:08 | XMS_ITS | Encounter Summary ---
Author Organization [facility] Address [address] [place] [address] Care Team Providers Care Machine Bobbin Winder Name Role Phone Etienne Maher DO Primary Care Provider [phone] Encounter Details Date Type Department Care Team (Late st Contact Info) Description 12/12/2023 External Device Data STL ABSTRACTION Provider, Abstract [...] on filedocumented in this encounter Care Teams Machine Bobbin Winder Relationship Specialty Start Date End Date Etienne Maher DO [address] [place] [address] PCP - General Internal Medicine 04/20/22 documented as of this encounter
--- OUTSIDE RECORDS SUMMARY | 2024-11-25 05:08 | XMS_ITS | Encounter Summary ---
Author Organization [facility] Address [address] [place]: Epic Prelude ADT [place] [address] Care Team Providers Care Stonework Tracer Name Role Phone Etienne Maher DO Primary Care Provider [phone] Encounter Details Date Type Department Care Team (Latest Contact Info) Description 08/10/2022 Travel Social History Tobacco Use Types Packs/Day [...] on filedocumented in this encounter Care Teams Stonework Tracer Relationship Specialty Start Date End Date Etienne Maher DO [address] [place] [address] PCP - General Internal Medicine 04/20/22 documented as of this encounter
--- OUTSIDE RECORDS SUMMARY | 2024-11-25 05:08 | XMS_ITS | Encounter Summary ---
Author Organization [facility] Address [address] [place] [address] Care Team Providers Care Yard Worker Name Role Phone Etienne Maher DO Primary Care Provider Encounter Details Date Type Department Care Team (Late st Contact Info) Description 08/08/2022 Abstract [facility] Oncology and Hematology - [place] [address] [place] [address] Kailyn Gonzalez RN Social History [...] on filedocumented in this encounter Care Teams Yard Worker Relationship Specialty Start Date End Date Etienne Maher DO [address] [place] [address] PCP - General Internal Medicine 04/20/22 documented as of this encounter
--- OUTSIDE RECORDS SUMMARY | 2024-11-25 05:08 | XMS_ITS | Referral Summary ---
Author Organization [facility] Address [address] [facility] [place] [address] Care Team Providers Care Pin Sorter And Bagger Name Role Phone Etienne Maher DO Primary Care Provider [phone] Source Comments [facility],non-owned Affiliates and Associated Physician Practices is amultiple site organization consisting of ambulatory clinics and hospital sitesin [place], [place], [place] and [place]. This disclosure is being madepursuant to the Care Everywhere program and may not contain all information available regarding this patient. Last updated 18.[facility] Encounters Date Type Department Care Team Description 09/25/2024 4:08 PM HEEL BOOM OPERATOR - 09/25/2024 11:59 PM HEEL BOOM OPERATOR Hospital Encounter [facility] LAB OP DRAW STATION [address] [place] [phone] Discharge Disposition: Home or Self Care 09/25/2024 2:00 PM HEEL BOOM OPERATOR Office Visit [facility] - Urology [address] [place] [address] Jordan Noonan MD Hematuria, gross (Primary Dx) from Last 3 Months Allergies Active Allergy Reactions Criticality Noted Date [...] 01/11/2022 03/20/2024 Unspecified atrial fibrillation 01/11/2022 03/20/2024 Social History Tobacco Use Types Packs/Day Years Used Date Smoking Tobacco: Former Cigarettes Smokeless Tobacco: Never Tobacco Cessation:Counseling Given: No Sex and Gender Information Value Date Recorded Sex Assigned at Not on file Gender Identity Not on file Sexual Orientation Not on file Last Filed Vital Signs Vital Sign Reading Time Taken Comments Blood Pressure 113/66 09/25/2024 2:16 PM HEEL BOOM OPERATOR Pulse 88 09/25/2024 2:16 PM HEEL BOOM OPERATOR Temperature 37 ??C (98.6 ??F) 09/25/2024 2:16 PM HEEL BOOM OPERATOR Respiratory Rate - - Oxygen Saturation 96% 09/25/2024 2:16 PM HEEL BOOM OPERATOR Inhaled Oxygen Concentration - - Weight 72.6 kg (160 lb) 09/25/2024 2:16 PM HEEL BOOM OPERATOR Height 175.3 cm (5' 9 ) 09/25/2024 2:16 PM HEEL BOOM OPERATOR Body Mass Index 23.63 09/25/2024 2:16 PM HEEL BOOM OPERATOR Plan of Treatment Upcoming Encounters Date Type Department Care Team (Late st Contact Info) Description 01/22/2025 1:15 PM HEEL BOOM OPERATOR Office Visit [facility] - Urology [address] [place] [address] Jordan Noonan MD [address] [place] [address] Procedures Procedure Name Priority Date/Time Associated Diagnosis Comments IMAGING/RADIOLOGY/X RAY RESULTS ORDER 10/19/2024 CYTOLOGY NON-FINANCIAL DIRECTOR PANEL (STL) Routine 09/25/2024 4:22 PM HEEL BOOM OPERATOR Hematuria, gross from Last 3 Months Results * IMAGING RADIOLOGY XRAY RESULTS ORDER (10/19/2024) Anatomical Region Laterality Modality Other 10/19/2024 Narrative 10/19/2024 Ordered by an unspecified provider. Scanned Document IMAGING * CYTOLOGY NON-FINANCIAL DIRECTOR PANEL (STL) (09/25/2024 4:22 PM HEEL BOOM OPERATOR) Case Report Medical Cytology Report ? Case: [id number] ? Authorizing Provider: ??Jordan Noonan MD ? Collected: ? 09/25/2024 04:22 PM ? Ordering Location: ? [facility] - ??Received: ?09/28/2024 07:38 AM ? Urology ? Pathologist: ? Hank Mata MD ? Specimen: ?Urine ? 09/29/2024 12:50 PM HEEL BOOM OPERATOR [facility] Specimen Adequacy Adequate cellularity for evaluation. 09/29/2024 12:50 PM HEEL BOOM OPERATOR [facility] Final Diagnosis Urine, cytology: - Negative for high-grade urothelial carcinoma 09/29/2024 12:50 PM HEEL BOOM OPERATOR [facility] Clinical History The patient is a 78-year-old male with gross hematuria and history of Barnard catheterization 09/29/2024 12:50 PM HEEL BOOM OPERATOR [facility] Gross Description 1 pap stained cytospin slide from 100cc dark yellow fluid 09/29/2024 12:50 PM [facility] Microscopic Description Microscopic examination substantiates the final diagnosis. 09/29/2024 12:50 PM [facility] Pathologist Location at [facility] 09/29/2024 12:50 PM [facility] Disclaimer The performance characteristics of all immunohistochemical and indirect immunofluorescence stains (if any) cited in this report were determined by the Histopathology Laboratory of [facility]. Some of these tests rely on the use of analyte-specific reagents and are subject to specific labeling requirements by the [place] Food and Drug Administration. Such tests were developed by the Histology Laboratory of [facility] and have not been cleared or [...] the attending (teaching) pathologist. 09/29/2024 12:50 PM [facility] Embedded Images 09/29/2024 12:50 PM [facility] Pathology/Cytolo gy URINE / Unknown Collection / Unknown 09/25/2024 4:22 PM HEEL BOOM OPERATOR 09/28/2024 7:38 AM HEEL BOOM OPERATOR Jordan Noonan MD LAB - PATHOLOGY/CYTO LOGY ORDERABLES Performing Organization Address City/State/[facility] Co de Phone Number [facility] [address] [phone] from Last 3 Months Care Teams Pin Sorter And Bagger Relationship Specialty Start Date End Date Etienne Maher DO [address] [place], [place] [phone] PCP - General 01/12/22
--- OUTSIDE RECORDS SUMMARY | 2024-11-25 05:08 | XMS_ITS | Encounter Summary ---
Author Organization [facility] [employer] [facility] Address [address] [place] [address] Care Team Providers Care Rose Grower Name Role Phone Etienne Maher DO Primary Care Provider [phone] Encounter Details Date Type Department Care Team (Late st Contact Info) Description 2022 Orders Only [facility] Oncology and Hematology - [place] [address] [facility] [address] [place] [address] Matty Murry MD [address] [facility] [address] [place] [address] Malignant neoplasm of upper lobe [...] lung documented in this encounter Care Teams Rose Grower Relationship Specialty Start Date End Date Etienne Maher DO [address] [place] [address] PCP - General Internal Medicine 04/20/22 documented as of this encounter
--- OUTSIDE RECORDS SUMMARY | 2024-11-25 05:08 | XMS_ITS | Encounter Summary ---
Author Organization [facility] Address [address] [facility] [place] [address] Care Team Providers Care Contact And Service Clerks Supervisor Name Role Phone Etienne Maher DO Primary Care Provider [phone] Encounter Details Date Type Department Care Team (Latest Contact Info) Description 03/17/2024 Travel Social History Tobacco Use Types Packs/Day Years Used Date Smoking Tobacco: Never Assessed Sex and Gender Information Value Date Recorded Sex Assigned at Not on file Gender Identity Not on file Sexual Orientation Not on file documented as of this encounter Plan of Treatment Upcoming Encounters Date Type Department Care Team (Late st Contact Info) Description 01/22/2025 1:[address] JUDGE [facility] [address] [place] [address] Jordan Noonan MD [address] [place] [address] documented as of this encounter Visit Diagnoses Not on filedocumented in this encounter Care Teams Contact And Service Clerks Supervisor Relationship Specialty Start Date End Date Etienne Maher DO [address] [place] [address] PCP - General 01/12/22 documented as of this encounter
--- OUTSIDE RECORDS SUMMARY | 2024-11-25 05:08 | XMS_ITS | Encounter Summary ---
Author Organization [facility] Address [address] [place] [address] Care Team Providers Care Export Traffic Department Manager Name Role Phone Etienne Maher DO Primary Care Provider [phone] Encounter Details Date Type Department Care Team (Latest Contact Info) Description 07/14/2024 Travel Social History Tobacco Use Types Packs/Day Years Used Date Smoking Tobacco: Never Assessed Sex and Gender Information Value Date Recorded Sex Assigned at Not on file Gender Identity Not on file Sexual Orientation Not on file documented as of this encounter Plan of Treatment Upcoming Encounters Date Type Department Care Team (Late st Contact Info) Description 01/22/2025 1:15 PM IT AUDITOR [facility] [address] [place] [phone] Jordan Noonan MD [address] [place] [address] documented as of this encounter Visit Diagnoses Not on filedocumented in this encounter Care Teams Export Traffic Department Manager Relationship Specialty Start Date End Date Etienne Maher DO [address] [place] [address] PCP - General 01/12/22 documented as of this encounter
--- OUTSIDE RECORDS SUMMARY | 2024-11-25 05:08 | XMS_ITS | Encounter Summary ---
Author Organization [facility] [employer] [facility] Address [address] [place] [address] Care Team Providers Care Tc Operator Name Role Phone Etienne Maher DO Primary Care Provider [phone] Encounter Details Date Type Department Care Team (Late st Contact Info) Description 05/27/[address] [facility] Oncology and Hematology - [place] [address] [facility] [address] [place] [address] Matty Murry MD [address] [facility] [address] [place] [address] Malignant neoplasm of upper lobe [...] lung documented in this encounter Care Teams Tc Operator Relationship Specialty Start Date End Date Etienne Maher DO [address] [place] [address] PCP - General Internal Medicine 04/20/22 documented as of this encounter
--- OUTSIDE RECORDS SUMMARY | 2024-11-25 05:08 | XMS_ITS | Encounter Summary ---
Author Organization [facility] Address [address] [place] [address] Care Team Providers Care Vice President Residential Solar Sales Name Role Phone Etienne Maher Primary Care Provider [phone] Reason for Referral * Eval and Treat (Routine) - Closed Specialty Diagnoses / Procedures Referred By Ann t Referred To Contact Surgery Diagnoses Malignant neoplasm of right lung, unspecified part of lung Matty Murry MD [address] [place] [phone] Tomasz Velasquez MD NO ADDRESS ON FILE Referral ID Status Reason Start Date Expiration Date V isits Requested Visits Authorized [id number] Closed CRS To Schedule (STL) 07/12/2022 07/12/2023 1 1 * Eval and Treat (Routine) - Closed Specialty Diagnoses / Procedures Referred By Contac t Referred To Contact Oncology Diagnoses Malignant neoplasm of right lung, unspecified part of lung Matty Murry MD [address] [place] [phone] Referral ID Status Reason Start Date Expiration Date Visits Re quested Visits Authorized [id number] Closed 07/12/2022 07/13/2023 1 1 Reason for Visit * Reason Comments Follow Up * Eval and Treat (Routine) - Closed Specialty Diagnoses / Procedures Referred By Contac t Referred To Contact Oncology Diagnoses Malignant neoplasm of unspecified part of unspecified bronchus or lung (CMS/HCC) Procedures Office visit level 3-5 Etienne Maher DO [address] [place] [address] [facility] Oncology And Hematology [address] [place] [address] Referral ID Status Reason Start Date Expiration Date Visits Re quested Visits Authorized [id number] Closed 04/19/2022 04/20/2023 12 12 Encounter Details Date Type Department Care Team (Late st Contact Info) Description 07/12/2022 3:45 PM CDT Office Visit [facility] Oncology and Hematology [facility] [address] [place] [address] Matty Murry MD [address] [facility] [facility] [address] [place] [address] Malignant neoplasm of right lung, unspecified part of lung (Primary Dx); Prevention of chemotherapy-induced neutropenia Social History Tobacco Use Types Packs/Day Years [...] PM CDT documented as of this encounter Last Filed Vital Signs Vital Sign Reading Time Taken Comments Blood Pressure 141/70 07/12/2022 3:38 PM CDT Pulse 85 07/12/2022 3:38 PM CDT Temperature 36.9 ??C (98.5 ??F) 07/12/2022 3:38 PM CD T Respiratory Rate - - Oxygen Saturation 95% 07/12/2022 3:38 PM CDT Inhaled Oxygen Concentration - - Weight 97 kg (213 lb 14.4 oz) 07/12/2022 3:38 PM CDT Height 172.7 cm (5' 8 ) 07/12/2022 3:38 PM CDT Body Mass Index 32.52 07/12/2022 3:38 PM CDT documented in this encounter Progress Notes * Matty Murry MD - 07/12/2022 5:54 PM CDT HEMATOLOGY / ONCOLOGY PROGRESS NOTE [...] gene rearrangement mutation not detected. CURRENT TREATMENT Plan to start chemotherapy with carboplatin and Taxol TREATMENT HISTORY Radiation therapy treatment completed June 29, 2022 SUBJECTIVE Patient came into the office for follow-up visit after completion of radiation therapy treatment. He denies any chest pain and shortness of breath. Weight and appetite stable. No bleeding and bruising. No other new [...] deficits noted Examination as above PATH LABS @IMAGEIMP@ Assessment: Plan: Patient Active [...] radiation therapy treatment on June 29, 2022. Chemotherapy-induced neutropenia prophylaxis. Patient will receive Neulasta. Due to high risk stage II disease patient will receive sequential chemotherapy with carboplatin andTaxol. I will refer him for chemotherapy teaching and port placement. I will see him at the start of chemotherapy with labs on return to clinic. TOBACCO COUNSELING He is not a tobacco user. 07/12/2022 Matty Murry MD documented in this encounter Plan of Treatment Scheduled Orders Name Type Priority Associated Diagnoses Orde r Schedule CBC WITH DIFFERENTIAL Lab Stat Malignant neoplasm of right lung, unspecified part of lung Expected: 07/12/2022, Expires: 07/12/2023 COMPREHENSIVE METABOLIC PANEL Lab Stat Malignant neoplasm of right lung, unspecified part of lung Expected: 07/12/2022, Expires: 07/12/2023 Scheduled Referrals Name Type Priority Associated Diagnoses Orde r Schedule AMB REFERRAL TO CHEMO TEACHING Outpatient Referral Routine Malignant neoplasm of right lung, unspecified part of lung Ordered: 07/12/2022 AMB REFERRAL TO GENERAL SURGERY Outpatient Referral Routine Malignant neoplasm of right lung, unspecified part of lung Ordered: 07/12/2022 documented as of this encounter Visit Diagnoses Diagnosis Malignant neoplasm of right lung, unspecified part of lung- Primary Prevention of chemotherapy-induced neutropenia documented in this encounter Care Teams Vice President Residential Solar Sales Relationship Specialty Start Date End Date Etienne Maher DO [address] [facility] [address] [facility] [address] [place] [address] PCP - General Internal Medicine 04/20/22 documented as of this encounter
--- OUTSIDE RECORDS SUMMARY | 2024-11-25 05:08 | XMS_ITS | Patient Health Summary ---
Author Organization [facility] Address [address] [place] [address] Care Team Providers Care Chief Technician Name Role Phone Etienne Maher DO Primary Care Provider [phone] Note from [facility],non-owned Affiliates and Associated Physician Practices is amultiple site organization consisting of ambulatory clinics and hospital sitesin [place], [place], [place] and [place]. This disclosure is being madepursuant to the Care Everywhere program and may not contain all information available regarding this patient. Last updated 18.[facility] Allergies * Penicillins(Other) Medications * Be aware that medications may not be up to date on this document. Alwaysverify current medications with the patient. * buPROPion XL 24hr (Wellbutrin-XL) 300 MG tablet(Started 10/03/2023) Take 1 (one) tablet by mouth once daily * gabapentin (Neurontin) 100 MG capsule(Started 10/11/2023) Take 1 (one) capsule by mouth 3 times daily * lactulose (Chronulac) 10 GM/15ML solution(Started 10/14/2023) Take by mouth 3 times daily * levothyroxine (Synthroid) 25 MCG tablet(Started 07/23/2023) Take 1 (one) tablet by mouth once daily * methadone (Dolophine) 5 MG tablet(Started 10/15/2023) Take 1 (one) tablet by mouth 2 times daily * mirtazapine (Remeron) 15 MG tablet(Started 09/22/2023) Take 1 (one) tablet by mouth at bedtime * ondansetron, disintegrating, (Zofran ODT) 8 MG tablet(Started 10/22/2023) Take 1 (one) tablet by mouth every 8 hours as needed * oxyCODONE-acetaminophen (Percocet) 7.5-325 MG tablet(Started 10/14/2023) * pantoprazole EC (Protonix) 40 MG tablet(Started 10/27/2023) Take 1 (one) tablet by mouth once daily * potassium chloride ER (Klor-Con M) 20 MEQ tablet(Started 09/28/2023) Take 1 (one) tablet by mouth 2 times daily * rOPINIRole (Requip) 1 MG tablet(Started 10/20/2023) Take 1 (one) tablet by mouth at bedtime * sucralfate (Carafate) 1 GM tablet(Started 09/14/2023) Take 1 (one) tablet by mouth 3 times daily * tamsulosin (Flomax) 0.4 MG capsule(Started 10/03/2023) Take 1 (one) capsule by mouth at bedtime * acetaminophen (Tylenol) 325 MG tablet Take 1 (one) tablet by mouth every 4 hours as needed for Fever or Pain Maximum allowable Acetaminophen amount = 4 Grams (4000 mg) / 24 hours. * albuterol HFA (Proventil; Ventolin; Proair) 108 (90 Base) MCG/ACT inhaler Inhale 2 (two) puffs by mouth every 6 hours as needed * aspirin EC (Ecotrin) 81 MG tablet Take 1 (one) tablet by mouth once daily * bisacodyl (Dulcolax) 10 MG suppository Insert 1 (one) suppository into the rectum once daily as needed for Constipation * multivitamin daily tablet Take 1 (one) tablet by mouth daily with food * ipratropium (Atrovent) 0.02 % nebulizer solution Inhale 0.5 (one-half) mg by mouth every 6 hours * levalbuterol 1.25 MG/0.5ML 1.25 mg in sodium chloride 0.9 % 3 mL Inhale 1.25 mg by mouth every 6 hours as needed * polyethylene glycol 3350 (Miralax) 17 g packet Take 17 (seventeen) g by mouth once * phenazopyridine (Pyridium) 100 MG tablet(Started 06/23/2024) * FLUoxetine (PROzac) 20 MG capsule(Started 02/20/2024) * bisacodyl EC 5 MG tablet Take 2 (two) tablets by mouth 2 times daily * trimethobenzamide (Tigan) injection Inject 1 mL into muscle once daily as needed for Nausea/Vomiting * AMINO ACIDS-PROTEIN HYDROLYS PO Take 30 mL by mouth once daily * trospium (Sanctura) 20 MG tablet(Started 08/17/2024) Take 1 (one) tablet by mouth 2 times daily 3 refills by 08/17/2025 Active Problems Problem Noted Date Diagnosed Date [...] Comments Blood Pressure 113/66 09/25/2024 2:16 PM PLASTER PATTERN CASTER Pulse 88 09/25/2024 2:16 PM PLASTER PATTERN CASTER Temperature 37 ??C (98.6 ??F) 09/25/2024 2:16 PM PLASTER PATTERN CASTER Respiratory Rate - - Oxygen Saturation 96% 09/25/2024 2:16 PM PLASTER PATTERN CASTER Inhaled Oxygen Concentration - - Weight 72.6 kg (160 lb) 09/25/2024 2:16 PM PLASTER PATTERN CASTER Height 175.3 cm (5' 9 ) 09/25/2024 2:16 PM PLASTER PATTERN CASTER Body Mass Index 23.63 09/25/2024 2:16 PM PLASTER PATTERN CASTER Procedures * IMAGING/RADIOLOGY/XRAY RESULTS ORDER(Performed 10/19/2024) * CYTOLOGY NON-TECHNICAL SERVICES CONSULTANT PANEL (STL)(Performed 09/25/2024) Performed for Hematuria, gross * PROC CATHETER CHANGE/INSERTION(Performed 03/20/2024) Performed for Urinary retention Results * IMAGING RADIOLOGY XRAY RESULTS ORDER (10/19/2024) Anatomical Region Laterality Modality Other 10/19/2024 Narrative 10/19/2024 Ordered by an unspecified provider. Scanned Document IMAGING * CYTOLOGY NON-TECHNICAL SERVICES CONSULTANT PANEL (STL) (09/25/2024 4:22 PM PLASTER PATTERN CASTER) Case Report Medical Cytology Report ? Case: [id number] ? Authorizing Provider: ??Jordan Noonan MD ? Collected: ? 09/25/2024 04:22 PM ? Ordering Location: ? [facility] - ??Received: ?09/28/2024 07:38 AM ? Urology ? Pathologist: ? Hank Mata MD ? Specimen: ?Urine ? 09/29/2024 12:50 PM PLASTER PATTERN CASTER [facility] Specimen Adequacy Adequate cellularity for evaluation. 09/29/2024 12:50 PM PLASTER PATTERN CASTER [facility] Final Diagnosis Urine, cytology: - Negative for high-grade urothelial carcinoma 09/29/2024 12:50 PM [facility] Clinical History The patient is a 78-year-old male with gross hematuria and history of Barnard catheterization 09/29/2024 12:50 PM PLASTER PATTERN CASTER [facility] Gross Description 1 pap stained cytospin slide from 100cc dark yellow fluid 09/29/2024 12:50 PM PLASTER PATTERN CASTER [facility] Microscopic Description Microscopic examination substantiates the final diagnosis. 09/29/2024 12:50 PM PLASTER PATTERN CASTER [facility] Pathologist Location at [facility] 09/29/2024 12:50 PM [facility] Disclaimer The performance characteristics of all immunohistochemical and indirect immunofluorescence stains (if any) cited in this report were determined by the Histopathology Laboratory of [facility]. Some of these tests rely on the use of analyte-specific reagents and are subject to specific labeling requirements by the US Food and Drug Administration. Such tests were developed by the Histology Laboratory of [facility] and have not been cleared or [...] the attending (teaching) pathologist. 09/29/2024 12:50 PM PLASTER PATTERN CASTER [facility] Embedded Images 09/29/2024 12:50 PM PLASTER PATTERN CASTER [facility] Pathology/Cytolo gy URINE / Unknown Collection / Unknown 09/25/2024 4:22 PM PLASTER PATTERN CASTER 09/28/2024 7:38 AM PLASTER PATTERN CASTER Jordan Noonan MD LAB - PATHOLOGY/CYTO LOGY ORDERABLES Performing Organization Address City/[facility] Co de Phone Number [facility] [address] [place] [address], [facility] [phone] * PROC CATHETER CHANGE/INSERTION (03/20/2024 9:18 AM [...] KEISHA Canales Carrol VALDES PROCEDURE/MINOR SURGICAL ORDERABLES Care Teams Chief Technician Relationship Specialty Start Date End Date Etienne Maher DO [address] [place] [address] PCP - General 01/12/22
--- OUTSIDE RECORDS SUMMARY | 2024-11-25 05:08 | XMS_ITS | Encounter Summary ---
Author Organization [facility] Address [address] [place] [address] Care Team Providers Care Cook Apprentice Pastry Name Role Phone Etienne Maher DO Primary Care Provider [phone] Reason for Visit * Reason Comments Follow-up Encounter Details Date Type Department Care Team (Late st Contact Info) Description 07/27/2024 9:00 AM CDT Office Visit [facility] - Urology [address] [facility] [address] [facility] [place] [address] Chris Morris PA [address] [place] [address] Urinary retention (Primary Dx); Dyspnea, unspecified type Social History Tobacco Use Types Packs/Day Years Used Date Smoking Tobacco: Former Cigarettes Smokeless Tobacco: Never Tobacco Cessation:Counseling Given: No Sex and Gender Information Value Date Recorded Sex Assigned at Not on file Gender Identity Not on file Sexual Orientation Not on file documented as of this encounter Last Filed Vital Signs Vital Sign Reading Time Taken Comments Blood Pressure - - Pulse 82 07/27/2024 9:27 AM CDT Temperature 36.1 ??C (97 ??F) 07/27/2024 9:27 AM CDT Respiratory Rate - - Oxygen Saturation 88% 07/27/2024 9:27 AM CDT Inhaled Oxygen Concentration - - Weight 72.6 kg (160 lb) 07/27/2024 9:27 AM CDT Height 175.3 cm (5' 9 ) 07/27/2024 9:27 AM CDT Body Mass Index 23.63 07/27/2024 9:27 AM CDT documented in this encounter Patient Instructions * Patient Instructions* Chris Morris PA - 07/27/2024 10:00 AM CDT - To schedule an appointment please call - To reach the [place]'s office please call - For any nursing or surgery questions please call - FAX: or documented in this encounter Progress Notes * Chris Morris PA - 07/27/2024 9:41 AM CDT [facility] Division of Urologic Surgery KELSEY Quintana Date of Visit: 07/27/2024 Patient Name: Farhan Armstrong : 1945 Medical Record: [id number] Contact Phone: There are no phone numbers on file. Age: [age] year old Sex: male Referring Physician: Carrol Rojo, RADHA-SHADE HANGER [address] [facility] Dept [place] [address] Chief Complaint: SPT Discussion History of Present Illness: The patient is a 78 year old male with PMH T2DM, HTN, COPD, CHF, chronic afib previously seen by Dwayne 03/17/24 and presents today to possibly discuss SPT placement. Currently gets his cathter changed at the facility ~ every 4 weeks. Does report that his tear is still present. Patient reports that he has had multiple hernia surgeries but on physical exam there was no evidence of any abdominal surgery scars. Past Medical History; No past medical history [...] needed (Patient not taking: Reported on 07/27/2024) aspirin EC (Ecotrin) 81 MG tablet Take 1 (one) tablet by mouth once daily bisacodyl (Dulcolax) 10 MG suppository Insert 1 (one) suppository into the rectum once daily as needed for Constipation buPROPion XL 24hr (Wellbutrin-XL) 300 MG tablet [...] 1 (one) capsule by mouth at bedtime No current facility-administered medications for this visit. Allergies; Penicillins Family History: No family history on file. Social History: Social History Socioeconomic History Marital [...] Ears/nose/mouth: Negative Lungs:Negative Heart:Negative Gastrointestinal: negative Genitourinary: chronic indwelling catheter Musculoskeletal: Negative Nervous system: Negative Reproductive system: Negative Hematologic: Negative Lymphatic: Negative Endocrine: Negative Physical Exam: Vital Signs: Pulse 82 Temp 97 ??F (36.1 ??C) Ht 1.753 m (5' 9 ) Wt 72.6 kg (160 lb) SpO2 (!) 88% Physical Exam Vitals reviewed. HENT: Head: Normocephalic and atraumatic. Cardiovascular: Rate and Rhythm: Normal rate. Pulmonary: Comments: Patient on 2.5 L of oxygen Abdominal: General: Abdomen is flat. There is no distension. Palpations: Abdomen is soft. Tenderness: There is no abdominal tenderness. There is no right CVA tenderness, left CVA tendernessor guarding. Musculoskeletal: Comments: BL Resting tremor Neurological: Mental Status: He is alert. Mental status is at baseline. Psychiatric: Mood and Affect: Mood normal. Behavior: Behavior normal. PVR per bladder scanner: Not performed Imaging (images and reports reviewed): None Laboratory Studies: No results found for this visit on 07/27/24. Microbiology: None Pathology: None Diagnosis: 1. Urinary retention Patient with history of chronic indwelling catheter with urethral tear. Patient with son today to discuss SPT placement. Patient reports history of hernia surgery but on physical exam no incisions orscars were present. - Messaged surgeons 2. Dyspnea, unspecified type Patient O2 was 88% on 2.5 L of oxygen. Son reports that off oxygen yesterday his O2 was 82%. They report that he was recently at the hospital for pneumonia. I recommended the patient and the son strict to go the ED for evaluation of the dyspnea and low O2. They decline at this time. I discussed risks and benefits and gave them strict ED precautions especially if it worsens. Patient's questions were answered and patient agrees with plan. KELSEY Quintana 07/27/2024 1:00 PM documented in this encounter Plan of Treatment Upcoming Encounters Date Type Department Care Team (Late st Contact Info) Description 01/22/2025 1:15 PM ACCOUNTANT CLERK Office Visit [facility] - Urology [address] [place] [id number] Jordan Noonan MD [address] [place] [address] documented as of this encounter Visit Diagnoses Diagnosis Urinary retention- Primary Retention of urine, unspecified Dyspnea, unspecified type documented in this encounter Care Teams Cook Apprentice Pastry Relationship Specialty Start Date End Date Etienne Maher DO [address] [place] [address] PCP - General 01/12/22 documented as of this encounter
--- OUTSIDE RECORDS SUMMARY | 2024-11-25 05:08 | XMS_ITS | Encounter Summary ---
Author Organization [facility] Address [address] [place]: Epic Prelude ADT [place] [address] Care Team Providers Care Communications Senior Associate Name Role Phone Etienne Maher DO Primary Care Provider [phone] Encounter Details Date Type Department Care Team (Latest Contact Info) Description 11/23/2022 Travel Social History Tobacco Use Types Packs/Day [...] Coronavirus/COVID-19? No / Unsure 11/23/2022 10:37 AM TRAVELING INVENTORY ASSOCIATE documented as of this encounter Plan of Treatment Not on file documented as of this encounter Visit Diagnoses Not on filedocumented in this encounter Care Teams Communications Senior Associate Relationship Specialty Start Date End Date Etienne Maher DO [address] [place] [address] PCP - General Internal Medicine 04/20/22 documented as of this encounter
--- OUTSIDE RECORDS SUMMARY | 2024-11-25 05:08 | XMS_ITS | Clinical Summary ---
Author Organization [facility] Address [address] [place] [address] Care Team Providers Care Supply Chain Consultant Name Role Phone Etienne Maher DO Primary Care Provider [phone] Allergies Active Allergy Reactions Criticality Noted Date Comments Penicillins Other (See Comments) 04/20/2022 Trouble breathing Medications Medication Sig Dispensed Refills Start Date End Date Status albuterol sulfate 90 mcg/Actuation inhaler 1 Puff every 4 hours as needed for Shortness of Breath or Wheezing. 02/16/2022 Active ARIPiprazole (ABILIFY) 2 mg tablet Take 4 mg by mouth daily. 04/18/2022 Active aspirin (ECOTRIN EC) 81 mg Tablet, Delayed Release (E.C.) Take 81 mg by mouth daily. 04/18/2022 Active buPROPion HCL (WELLBUTRIN XL) 300 mg Extended Release 24 hour tablet Take 300 mg by mouth daily. 04/18/2022 Active furosemide (LASIX) 20 mg tablet Take 20 mg by mouth 2 times daily. Take with 40 mg to total 60 mg 04/18/2022 Active furosemide (LASIX) 40 mg tablet 40 mg 2 times daily. Take with 20 mg for total of 60 mg 04/18/2022 Active gabapentin (NEURONTIN) 100 mg capsule Take 100 mg by mouth 3 times daily. 04/18/2022 Active levothyroxine 25 mcg tablet Take 25 mcg by mouth daily. 04/18/2022 Active metFORMIN (GLUCOPHAGE) 500 mg tablet Take 500 mg by mouth daily with breakfast. 04/18/2022 Active methadone (DOLOPHINE) 5 mg Tablet Take 5 mg by mouth every 8 hours. 04/25/2022 Active mirtazapine (REMERON) 15 mg tablet Take 15 mg by mouth daily at bedtime. 04/18/2022 Active polyethylene glycol 3350 (MIRALAX) 17 gram/dose Powder Take 17 Grams by mouth daily. 02/16/2022 Active rOPINIRole (REQUIP) 1 mg tablet Take 1 mg by mouth daily at bedtime. 04/18/2022 Active spironolactone (ALDACTONE) 25 mg tablet Take 25 mg by mouth daily. 04/18/2022 Active tamsulosin (FLOMAX) 0.4 mg capsule Take 0.4 mg by mouth daily. 04/18/2022 Active lidocaine-diphenh iqhpapp-Kt-lnnszl ium-simethicone (FIRST-Mouthwash BLM) 92-261-417-40 mg/30mL Mouthwash 10 mL by Mouth/Throat route every 6 hours as needed for Sore Throat. Shake to mix before using. Swallow (do not swish) 10 ml immediately before meals and at bedtime as needed for painful swallowing. 237 mL 1 06/27/2022 Active ondansetron (Zofran) 8 mg TabletIndications :Malignant neoplasm of upper lobe of right lung Take 1 Tablet (8 mg) by mouth every 8 hours as needed for Nausea/Emesis. 30 Tablet 1 08/07/2022 Active lidocaine-priloca ine (EMLA) 2.5-2.5 % CreamIndications: Malignant neoplasm of upper lobe of right lung Apply to affected area see administration instructions. Apply to port before treatment 30 Gram 1 08/07/2022 Active dexAMETHasone (DECADRON) 4 mg tablet Dexamethasone 4 mg 1 tablet twice a day starting day before the chemotherapy, day of the chemotherapy and day after chemotherapy. 6 Tablet 3 08/07/2022 Active oxyCODONE (ROXICODONE) 10 mg tablet Take 10 mg by mouth every 6 hours as needed for Pain, Moderate. Active Active Problems Problem Noted Date Diagnosed Date Malignant neoplasm of upper lobe of right lung 0 04/20/2022 Family History Medical History Relation Name Comments Cancer Sister 2 Relation Name Status Comments Daughter Alive Father Mother Sister 1 Alive Sister 2 Son Alive Social History Tobacco Use Types Packs/Day Years [...] Comments Blood Pressure 114/63 11/23/2022 10:47 AM DIESEL LUBE TECH Pulse 85 11/23/2022 10:47 AM DIESEL LUBE TECH Temperature 36.8 ??C (98.2 ??F) 11/23/2022 10:[address] Respiratory Rate 16 11/23/2022 10:47 AM DIESEL LUBE TECH Oxygen Saturation 94% 11/23/2022 10:47 AM DIESEL LUBE TECH Inhaled Oxygen Concentration - - Weight 88.7 kg (195 lb 9.6 oz) 10/05/2022 9:19 A M DIESEL LUBE TECH Height 172.7 cm (5' 8 ) 08/10/2022 8:51 AM CDT Body Mass Index 29.74 08/10/2022 8:51 AM CDT Plan of Treatment Health Maintenance Due Date Last Done Comments DTAP/TDAP/TD VACCINES (1 - Tdap) 1962 ZOSTER VACCINE (1 of 2) 1993 PNEUMOCOCCAL VACCINE 65+ YEARS (1 of 1 - PCV) 12/31/19 09 RSV VACCINE (60+ or ) (1 - 1-dose 75+ series) 2018 INFLUENZA VACCINE (#1) 2024 Care Teams Supply Chain Consultant Relationship Specialty Start Date End Date Etienne Maher DO [address] [place] [address] PCP - General Internal Medicine 04/20/22
--- OUTSIDE RECORDS SUMMARY | 2024-11-25 05:08 | XMS_ITS | Encounter Summary ---
Author Organization [facility] [employer] [facility] Address [address] [place] [address] Care Team Providers Care User Experience Developer Name Role Phone Etienne Maher DO Primary Care Provider [phone] Encounter Details Date Type Department Care Team (Late st Contact Info) Description 03/25/2023 Orders Only [facility] Oncology and Hematology - Gio [address] [facility] [address] [place] [address] Matty Murry MD [address] [facility] [address] [place] [address] Malignant neoplasm of upper lobe [...] in this encounter Care Teams User Experience Developer Relationship Specialty Start Date End Date Etienne Maher DO [address] [place] [address] PCP - General Internal Medicine 04/20/22 documented as of this encounter
--- OUTSIDE RECORDS SUMMARY | 2024-11-25 05:08 | XMS_ITS | Encounter Summary ---
Author Organization [facility] Address [address] [place] [address] Care Team Providers Care Federal Appellate Clerk Name Role Phone Etienne Maher DO Primary Care Provider [phone] Reason for Visit * Reason Comments Establish Care Encounter Details Date Type Department Care Team (Late st Contact Info) Description 10/29/2023 8:30 AM SALON SHAMPOO ASSISTANT Office Visit [facility] - Urology [address] [place] [address], [place] [id number] Carrol Rojo, SLASHER SAWYER-NECKTIES PAINTER [address] [place] [address] DE[place] [address] Urinary retention (Primary Dx) Social History Tobacco Use Types Packs/Day Years Used Date Smoking Tobacco: Never Assessed Tobacco Cessation:Counseling Given: No Sex and Gender Information Value Date Recorded Sex Assigned at Not on file Gender Identity Not on file Sexual Orientation Not on file documented as of this encounter Last Filed Vital Signs Vital Sign Reading Time Taken Comments Blood Pressure 92/62 10/29/2023 9:07 AM SALON SHAMPOO ASSISTANT Pulse 93 10/29/2023 9:07 AM SALON SHAMPOO ASSISTANT Temperature 36.6 ??C (97.8 ??F) 10/29/2023 9:07 AM CS T Respiratory Rate - - Oxygen Saturation 96% 10/29/2023 9:07 AM SALON SHAMPOO ASSISTANT Inhaled Oxygen Concentration - - Weight 72.6 kg (160 lb) 10/29/2023 9:07 AM SALON SHAMPOO ASSISTANT Height 175.3 cm (5' 9 ) 10/29/2023 9:07 AM SALON SHAMPOO ASSISTANT Body Mass Index 23.63 10/29/2023 9:07 AM SALON SHAMPOO ASSISTANT documented in this encounter Progress Notes * Carrol Rojo APRN-CNP - 10/29/2023 9:19 AM CST [facility] Division of Urologic Surgery KEISHA Canales Date of Visit: 10/29/2023 Patient Name: Farhan Armstrong : 1945 Medical Record: [id number] Contact Phone: There are no phone numbers on file. Age: [age] year old Sex: male Referring Physician: No referring provider defined for this encounter. Chief Complaint: Chief Complaint Patient presents with ??? Establish Care History of Present Illness: The patient is a 77 year old white male who states he [...] their facility. Patient has no complaints today. Past Medical History; No past medical history on file. Past Surgical History: No past surgical history on file. Current Medications: Current Outpatient Medications Medication Sig Dispense Refill ??? ARIPiprazole (Abilify) 2 MG tablet ??? buPROPion XL 24hr (Wellbutrin-XL) 300 MG tablet ??? Eliquis 5 MG tablet ??? gabapentin (Neurontin) 100 MG capsule ??? lactulose (Chronulac) 10 GM/15ML solution ??? levothyroxine (Synthroid) 25 MCG tablet ??? methadone (Dolophine) 5 MG tablet ??? mirtazapine (Remeron) 15 MG tablet ??? ondansetron, disintegrating, (Zofran ODT) 8 MG tablet ??? oxyCODONE-acetaminophen (Percocet) 7.5-325 MG tablet ??? pantoprazole EC (Protonix) 40 MG tablet ??? potassium chloride ER (Klor-Con M) 20 MEQ tablet ??? rOPINIRole (Requip) 1 MG tablet ??? Santyl 250 UNIT/GM ointment ??? sucralfate (Carafate) 1 GM tablet ??? [...] Negative Endocrine: Negative Physical Exam: Vital Signs: BP 92/62 Pulse 93 Temp 97.8 ??F (36.6 ??C) Ht 1.753 m (5' 9 ) Wt 72.6 kg (160 lb) SpO2 96% PVR per bladder scanner: Imaging (images and reports reviewed): Laboratory Studies: No results found for this visit on 10/29/23. Microbiology: Pathology: No new path Diagnosis: Urinary retention Recommendations: -patient states he prefers the catheter for his retention and declines a voiding trial today. Patient to follow up PRN 30 minutes were spent with patient. >50% were spent counseling patient. Patient's questions were answered and patient agrees with plan. KEISHA Canales 10/29/2023 9:19 AM N SHAMPOO ASSISTANT documented in this encounter Plan of Treatment Upcoming Encounters Date Type Department Care Team (Late st Contact Info) Description 01/22/2025 1:15 PM SALON SHAMPOO ASSISTANT Office Visit [facility] - Urology [address] [place] [address] Jordan Noonan MD [address] [place] [address] documented as of this encounter Visit Diagnoses Diagnosis Urinary retention- Primary Retention of urine, unspecified documented in this encounter Care Teams Federal Appellate Clerk Relationship Specialty Start Date End Date Etienne Maher DO [address] [place] [address] PCP - General 01/12/22 documented as of this encounter
--- OUTSIDE RECORDS SUMMARY | 2024-11-25 05:08 | XMS_ITS | Encounter Summary ---
Author Organization [facility] Address [address] [place] [address] Care Team Providers Care Bioinformatics Scientist Name Role Phone Etienne Maher Primary Care Provider [phone] Encounter Details Date Type Department Care Team (Latest Contact Info) Description 08/09/2022 11:52 AM CDT - 08/09/2022 11:59 PM CDT Hospital Encounter [facility] Nuclear Medicine [address] [facility] [address] [facility] [place] [address] Cosmo Rene MD [address] [facility] [address] [place] [address] Discharge Disposition: Home or Self Care Social [...] PM CDT documented as of this encounter Medications at Time of Discharge Medication Sig Dispensed Refills Start Date End Date ondansetron (Zofran) 8 mg TabletIndications:Mal ignant neoplasm of upper lobe of right lung Take 1 Tablet (8 mg) by mouth every 8 hours as needed for Nausea/Emesis. 30 Tablet 1 08/07/2022 lidocaine-prilocaine (EMLA) 2.5-2.5 % CreamIndications:Miriam hernandez neoplasm of upper lobe of right lung Apply to affected area see administration instructions. Apply to port before treatment 30 Gram 1 08/07/2022 lidocaine-diphenhydra mzp-Qg-nzltegmzp-lilly thicone (FIRST-Mouthwash BLM) 75-312-355-40 mg/30mL Mouthwash 10 mL by Mouth/Throat route every 6 hours as needed for Sore Throat. Shake to mix before using. Swallow (do not swish) 10 ml immediately before meals and at bedtime as needed for painful swallowing. 237 mL 1 06/27/2022 dexAMETHasone (DECADRON) 4 mg tablet Dexamethasone 4 mg 1 tablet twice a day starting day before the chemotherapy, day of the chemotherapy and day after chemotherapy. 6 Tablet 3 08/07/2022 levothyroxine 25 mcg tablet Take 25 mcg by mouth daily. 04/18/2022 metFORMIN (GLUCOPHAGE) 500 mg tablet Take 500 mg by mouth daily with breakfast. 04/18/2022 methadone (DOLOPHINE) 5 mg Tablet Take 5 mg by mouth every 8 hours. 04/25/2022 mirtazapine (REMERON) 15 mg tablet Take 15 mg by mouth daily at bedtime. 04/18/2022 polyethylene glycol 3350 (MIRALAX) 17 gram/dose Powder Take 17 Grams by mouth daily. 02/16/2022 rOPINIRole (REQUIP) 1 mg tablet Take 1 mg by mouth daily at bedtime. 04/18/2022 spironolactone (ALDACTONE) 25 mg tablet Take 25 mg by mouth daily. 04/18/2022 tamsulosin (FLOMAX) 0.4 mg capsule Take 0.4 mg by mouth daily. 04/18/2022 albuterol sulfate 90 mcg/Actuation inhaler 1 Puff every 4 hours as needed for Shortness of Breath or Wheezing. 02/16/2022 ARIPiprazole (ABILIFY) 2 mg tablet Take 4 mg by mouth daily. 04/18/2022 aspirin (ECOTRIN EC) 81 mg Tablet, Delayed Release (E.C.) Take 81 mg by mouth daily. 04/18/2022 buPROPion HCL (WELLBUTRIN XL) 300 mg Extended Release 24 hour tablet Take 300 mg by mouth daily. 04/18/2022 furosemide (LASIX) 20 mg tablet Take 20 mg by mouth 2 times daily. Take with 40 mg to total 60 mg 04/18/2022 furosemide (LASIX) 40 mg tablet 40 mg 2 times daily. Take with 20 mg for total of 60 mg 04/18/2022 gabapentin (NEURONTIN) 100 mg capsule Take 100 mg by mouth 3 times daily. 04/18/2022 documented as of this encounter Plan of Treatment Not on file documented as of this encounter Procedures Procedure Name Priority Date/Time Associated Diagnosis Comments PET PRIOR STUDY Routine 08/09/2022 11:52 AM CDT Malignant neoplasm of upper lobe of right lung documented in this encounter Results * PET PRIOR STUDY (08/09/2022 11:52 AM CDT) Narrative [facility] - 08/09/2022 11:52 AM CDT This exam was auto finalized to allow images to be scanned to PACS. Cosmo Rene MD ORDERABLES [facility] documented in this encounter Visit Diagnoses Diagnosis Malignant neoplasm of upper lobe of right lung Malignant neoplasm of upper lobe, bronchus or lung documented in this encounter Care Teams Bioinformatics Scientist Relationship Specialty Start Date End Date Etienne Maher DO [address] [facility] [address] [place] [address] PCP - General Internal Medicine 04/20/22 documented as of this encounter
--- OUTSIDE RECORDS SUMMARY | 2024-11-25 05:08 | XMS_ITS | Encounter Summary ---
Author Organization [facility] [employer] [facility] Address [address] [place] [address] Care Team Providers Care Clay Mixer Name Role Phone Etienne Maher DO Primary Care Provider [phone] Reason for Visit * Reason Comments Chemotherapy * Eval and Treat (Routine) - Closed Specialty Diagnoses / Procedures Referred By Contac t Referred To Contact Oncology Diagnoses Malignant neoplasm of unspecified part of unspecified bronchus or lung (CMS/HCC) Procedures Office visit level 3-5 Etienne Maher DO [address] [place] [address] [facility] Oncology And Hematology [address] [place] [address] Referral ID Status Reason Start Date Expiration Date Visits Re quested Visits Authorized [id number] Closed 04/19/2022 04/20/2023 12 12 Encounter Details Date Type Department Care Team (Late st Contact Info) Description 08/10/2022 8:45 AM CDT Office Visit [facility] Oncology and Hematology - [address] [place] [address] Matty Murry MD [address] [facility] [address] [place] [address] Malignant neoplasm of upper lobe [...] Sign Reading Time Taken Comments Blood Pressure 124/61 08/10/2022 8:51 AM CDT Pulse 75 08/10/2022 8:51 AM CDT Temperature 36.3 ??C (97.4 ??F) 08/10/2022 8:51 AM CD T Respiratory Rate 20 08/10/2022 8:51 AM CDT Oxygen Saturation 94% 08/10/2022 8:51 AM CDT Inhaled Oxygen Concentration - - Weight 94.4 kg (208 lb 3.2 oz) 08/10/2022 8:51 A M CDT Height 172.7 cm (5' 8 ) 08/10/2022 8:51 AM CDT Body Mass Index 31.66 08/10/2022 8:51 AM CDT documented in this encounter Progress Notes * Matty Murry MD - 08/10/2022 9:29 AM CDT HEMATOLOGY / ONCOLOGY PROGRESS NOTE [...] gene rearrangement mutation not detected. CURRENT TREATMENT Sequential chemotherapy with carboplatin and Taxol cycle 1/4 started on August 10, 2022 TREATMENT HISTORY Radiation therapy treatment completed June 29, 2022 SUBJECTIVE Patient came into the office for follow-up visit and to start chemotherapy. He is little bit nervous about chemotherapy. Denies any nausea vomiting. Denies any other new complaint. Review of system Constitutional: Patient did not [...] 11 hemoglobin 13.6 platelet 144,000 creatinine 1.5 @IMAGEIMP@ Assessment: Plan: Patient Active Problem List [...] therapy treatment on June 29, 2022. Patient will start sequential chemotherapy with carboplatin and Taxol cycle 1/4 on August 10, 2022. Labs noted. We will proceed with cycle one of the treatment today. Follow-up with me in 3 weeks. Chemotherapy-induced neutropenia prophylaxis. Patient will receive Neulasta. TOBACCO COUNSELING He is not a tobacco user. 08/10/2022 Matty Murry MD documented in this encounter Plan of Treatment Scheduled Orders Name Type Priority Associated Diagnoses Orde r Schedule BASIC METABOLIC PANEL Lab Stat Malignant neoplasm of upper lobe of right lung Expected: 08/31/2022, Expires: 08/10/2023 documented as of this encounter Visit Diagnoses Diagnosis Malignant neoplasm of upper lobe of right lung- Primary Malignant neoplasm of upper lobe, bronchus or lung documented in this encounter Care Teams Clay Mixer Relationship Specialty Start Date End Date Etienne Maher DO [address] [facility] [address] [facility] [address] [place] [address] PCP - General Internal Medicine 04/20/22 documented as of this encounter
--- OUTSIDE RECORDS SUMMARY | 2024-11-25 05:08 | XMS_ITS | Encounter Summary ---
Author Organization [facility] [employer] [facility] Address [address] [place] [address] Care Team Providers Care Clinical Psychiatrist Name Role Phone Etienne Maher DO Primary Care Provider [phone] Encounter Details Date Type Department Care Team (Late st Contact Info) Description 08/10/2022 Abstract [facility] Oncology and Hematology - G[address] [place] [address] Kailyn Gonzalez RN Social History [...] on filedocumented in this encounter Care Teams Clinical Psychiatrist Relationship Specialty Start Date End Date Etienne Maher DO [address] [place] [address] PCP - General Internal Medicine 04/20/22 documented as of this encounter
--- OUTSIDE RECORDS SUMMARY | 2024-11-25 05:08 | XMS_ITS | Encounter Summary ---
Author Organization [facility] Address [address] [place] [address] Care Team Providers Care Hand Sewer Name Role Phone Etienne Maher DO Primary Care Provider [phone] Encounter Details Date Type Department Care Team (Late st Contact Info) Description 06/27/2022 Orders Only [facility] Radiation Therapy [address] [place] [address] Francine Peterson MD [address] [place] [address] Social History Tobacco Use Types Packs/Day Years [...] on filedocumented in this encounter Care Teams Hand Sewer Relationship Specialty Start Date End Date Etienne Maher DO [address] [place] [address] PCP - General Internal Medicine 04/20/22 documented as of this encounter
--- OUTSIDE RECORDS SUMMARY | 2024-11-25 05:08 | XMS_ITS | Encounter Summary ---
Author Organization [facility] [employer] [facility] Address [address] [place] [address] Care Team Providers Care Slubber Frame Changer Name Role Phone Etienne Maher Primary Care Provider [phone] Encounter Details Date Type Department Care Team (Late st Contact Info) Description 08/07/2022 Orders Only [facility] Oncology and Hematology - Gio [address] [facility] [address] [place] [address] Matty Murry MD [address] [facility] [address] [place] [address] Social History Tobacco Use Types [...] PM CDT documented as of this encounter Progress Notes * Matty Murry MD - 08/07/2022 6:01 PM CDT ecadron documented in this encounter Plan of Treatment Not on file documented as of this encounter Visit Diagnoses Not on filedocumented in this encounter Care Teams Slubber Frame Changer Relationship Specialty Start Date End Date Etienne Maher DO [address] [facility] [address] [place] [address] PCP - General Internal Medicine 04/20/22 documented as of this encounter
--- OUTSIDE RECORDS SUMMARY | 2024-11-25 05:08 | XMS_ITS | Encounter Summary ---
Author Organization [facility] [employer] [facility] Address [address] [place] [address] Care Team Providers Care Cord Splicer Name Role Phone Etienne Maher DO Primary Care Provider [phone] Encounter Details Date Type Department Care Team (Late st Contact Info) Description 10/08/2022 Orders Only [facility] Oncology and Hematology - Gio [address] [facility] [address] [place] [address] Matty Murry MD [address] [facility] [address] [place] [address] Malignant neoplasm of upper lobe [...] Coronavirus/COVID-19? No / Unsure 10/05/2022 9:14 AM FEEDER TENDER documented as of this encounter Plan of Treatment Not on file documented as of this encounter Visit Diagnoses Diagnosis Malignant neoplasm of upper lobe of right lung Malignant neoplasm of upper lobe, bronchus or lung documented in this encounter Care Teams Cord Splicer Relationship Specialty Start Date End Date Etienne Maher DO [address] [place] [address] PCP - General Internal Medicine 04/20/22 documented as of this encounter
--- OUTSIDE RECORDS SUMMARY | 2024-11-25 05:09 | XMS_ITS | Encounter Summary ---
Author Organization [facility] [employer] [facility] Address [address] [place] [address] Care Team Providers Care Instructional Facilitator Name Role Phone Etienne Maher DO Primary Care Provider [phone] Encounter Details Date Type Department Care Team (Late st Contact Info) Description 05/03/2022 Orders Only [facility] Oncology and Hematology - G[place] [address] [place] [address] Sarahy Espana Malignant neoplasm of right lung, unspecified part [...] suspected to have Coronavirus/COVID-19? No / Unsure 04/20/2022 1:49 PM CDT documented as of this encounter Plan of Treatment Not on file documented as of this encounter Visit Diagnoses Diagnosis Malignant neoplasm of right lung, unspecified part of lung documented in this encounter Care Teams Instructional Facilitator Relationship Specialty Start Date End Date Etienne Maher DO [address] [place] [address] PCP - General Internal Medicine 04/20/22 documented as of this encounter
--- OUTSIDE RECORDS SUMMARY | 2024-11-25 05:09 | XMS_ITS | Encounter Summary ---
Author Organization [facility] [employer] [facility] Address [address] [place] [address] Care Team Providers Care Playroom Attendant Name Role Phone Etienne Maher Primary Care Provider [phone] Reason for Referral * Eval and Treat (Routine) - Closed Specialty Diagnoses / Procedures Referred By Contac t Referred To Contact Radiation Oncology Diagnoses Malignant neoplasm of right lung, unspecified part of lung Matty Murry MD [email or web address] [place] [address] Masood Covington MD [address] [place] [address] Referral ID Status Reason Start Date Expiration Date V isits Requested Visits Authorized [id number] Closed CRS To Schedule (STL) 05/16/2022 05/16/2023 1 1 Encounter Details Date Type Department Care Team (Late st Contact Info) Description 05/16/2022 Orders Only [facility] Oncology and Hematology - [place] [facility] [address] [place] [address] Matty Murry MD [email or web address] [place] [address] Malignant neoplasm of right lung, [...] suspected to have Coronavirus/COVID-19? No / Unsure 05/16/2022 2:08 PM CDT documented as of this encounter Plan of Treatment Scheduled Referrals Name Type Priority Associated Diagnoses Orde r Schedule AMB REFERRAL TO RADIATION ONCOLOGY Outpatient Referral Routine Malignant neoplasm of right lung, unspecified part of lung Ordered: 05/16/2022 documented as of this encounter Visit Diagnoses Diagnosis Malignant neoplasm of right lung, unspecified part of lung- Primary documented in this encounter Care Teams Playroom Attendant Relationship Specialty Start Date End Date Etienne Maher DO [address] [facility] [address] [place] [address] PCP - General Internal Medicine 04/20/22 documented as of this encounter
--- OUTSIDE RECORDS SUMMARY | 2024-11-25 05:09 | XMS_ITS | Encounter Summary ---
Author Organization [facility] Address [address] [place] [address] Care Team Providers Care Humanities Division Chair Name Role Phone Etienne Maher DO Primary Care Provider [phone] Encounter Details Date Type Department Care Team (Late st Contact Info) Description 05/17/2022 Abstract [facility] Cardiovas and Thor Surg at [facility] [address] [facility] [address] [place] [address] Cosmo Rene MD [address] [facility] [address] [place] [address] Social History Tobacco Use Types Packs/Day Years [...] on filedocumented in this encounter Care Teams Humanities Division Chair Relationship Specialty Start Date End Date Etienne Maher DO [address] [place] [address] PCP - General Internal Medicine 04/20/22 documented as of this encounter
--- OUTSIDE RECORDS SUMMARY | 2024-11-25 05:09 | XMS_ITS | Encounter Summary ---
Author Organization [facility] Address [address] Jimenez: Epic Prelude ADT [place] [address] Care Team Providers Care Applied Biology Professor Name Role Phone Etienne Maher DO Primary Care Provider [phone] Encounter Details Date Type Department Care Team (Latest Contact Info) Description 05/29/2022 Travel Social History Tobacco Use Types Packs/Day [...] was confirmed or suspected to have Coronavirus/COVID-19? Unable to assess 05/29/2022 9:55 AM CDT documented as of this encounter Plan of Treatment Not on file documented as of this encounter Visit Diagnoses Not on filedocumented in this encounter Care Teams Applied Biology Professor Relationship Specialty Start Date End Date Etienne Maher DO [address] [place] [address] PCP - General Internal Medicine 04/20/22 documented as of this encounter
--- OUTSIDE RECORDS SUMMARY | 2024-11-25 05:09 | XMS_ITS | Encounter Summary ---
Author Organization [facility] Address [address] [place] [address] Care Team Providers Care Police Radio Dispatcher Name Role Phone Etienne Maher Primary Care Provider [phone] Reason for Referral * Eval and Treat (Routine) - Closed Specialty Diagnoses / Procedures Referred By Contac t Referred To Contact Thoracic Surgery / Cardiothoracic Surgery Diagnoses Malignant neoplasm of right lung, unspecified part of lung Matty Murry MD [address] [place] [phone] Cosmo Rene MD [address] [facility] [address] [place] [address] Referral ID Status Reason Start Date Expiration Date V isits Requested Visits Authorized [id number] Closed CRS to Schedule 05/10/2022 05/10/2023 1 1 * Eval and Treat (Routine) - Closed Specialty Diagnoses / Procedures Referred By Contac t Referred To Contact Radiation Oncology Diagnoses Malignant neoplasm of right lung, unspecified part of lung Matty Murry MD [address] [place] [address] Masood Covington MD [address] [place] [address] Referral ID Status Reason Start Date Expiration Date V isits Requested Visits Authorized [id number] Closed CRS To Schedule (STL) 05/10/2022 05/10/2023 1 1 * Outpatient Services (Routine) - Closed Specialty Diagnoses / Procedures Referred By Ann frye Referred To Contact Diagnoses Malignant neoplasm of right lung, unspecified part of lung Procedures PULMONARY FUNCTION TEST Matty Murry MD [address] [place] [phone] [place] [address] Referral ID Status Reason Start Date Expiration Date Visits Re quested Visits Authorized [id number] Closed 06/14/2022 07/14/2022 1 1 Reason for Visit * Reason Comments Follow Up Cancer * Eval and Treat (Routine) - Closed Specialty Diagnoses / Procedures Referred By Ann frye Referred To Contact Oncology Diagnoses Malignant neoplasm of unspecified part of unspecified bronchus or lung (CMS/HCC) Procedures Office visit level 3-5 Etienne Maher, DO [address] [facility] [address] [place] [address] [facility] Oncology And Hematology [place] [address] [place] [address] Referral ID Status Reason Start Date Expiration Date Visits Re quested Visits Authorized [id number] Closed 04/19/2022 04/20/2023 12 12 Encounter Details Date Type Department Care Team (Late st Contact Info) Description 05/10/2022 3:45 PM CDT Video Visit [facility] Oncology and Hematology [facility] [address] [place] [address] Matty Murry MD [address] [place] [address] Malignant neoplasm of right lung, [...] suspected to have Coronavirus/COVID-19? No / Unsure 05/10/2022 3:49 PM CDT documented as of this encounter Progress Notes * Matty Murry MD - 05/10/2022 4:41 PM CDT HEMATOLOGY / ONCOLOGY PROGRESS NOTE [...] detected. CURRENT TREATMENT Expectant TREATMENT HISTORY SUBJECTIVE This is a video/audio visit with patient and the son. He denies any chest pain and shortness of breath. Denies any other new complaints. Review of [...] dizziness Skin: No lumps, bumps or rashes. Objective: Vital signs in last 24 hours: As per nursing note Exam: [facility] @IMAGEIMP@ Assessment: Plan: Patient Active [...] evidence of thoracic lymphadenopathy or extrathoracic metastasis. I have discussed this case with the patient and the son in detail. I will order pulmonary function testing and will get opinion from Dr Salter for surgical consultation. I will also ask radiation oncology consultation in case patient not found to be a surgical candidate due to age and pulmonary function testing. Follow-up with me in 2 weeks. ? TOBACCO COUNSELING He is not a tobacco user. 05/10/2022 This encounter was completed via two-way synchronous audio only communication. Time spent by the provider delivering the care documented in this encounter 19 minutes. Patient expressed understanding that using technology outside of [facility] has higher potential tointroduce privacy risks: Not Applicable Patient's identity confirmed yes Patient gave verbal consent to have these services billed to their insurance and expressed understanding that co-insurance and deductible may apply: yes Matty Murry MD documented in this encounter Plan of Treatment Scheduled Orders Name Type Priority Associated Diagnoses Orde r Schedule PULMONARY FUNCTION TEST PFT Routine Malignant neoplasm of right lung, unspecified part of lung Ordered: 05/10/2022 Scheduled Referrals Name Type Priority Associated Diagnoses Order Schedule AMB REFERRAL TO RADIATION ONCOLOGY Outpatient Referral Routine Malignant neoplasm of right lung, unspecified part of lung Ordered: 05/10/2022 AMB REFERRAL TO CARDIOTHORACIC SURGEON Outpatient Referral Routine Malignant neoplasm of right lung, unspecified part of lung Ordered: 05/10/2022 documented as of this encounter Visit Diagnoses Diagnosis Malignant neoplasm of right lung, unspecified part of lung- Primary documented in this encounter Care Teams Police Radio Dispatcher Relationship Specialty Start Date End Date Etienne Maher DO [address] [facility] [address] [facility] [address] [place] [phone] PCP - General Internal Medicine 04/20/22 documented as of this encounter
--- OUTSIDE RECORDS SUMMARY | 2024-11-25 05:09 | XMS_ITS | Encounter Summary ---
Author Organization [facility] [employer] [facility] Address [address] [place] [address] Care Team Providers Care Summer Associate Name Role Phone Etienne Maher DO Primary Care Provider [phone] Encounter Details Date Type Department Care Team (Late st Contact Info) Description 03/19/2022 Orders Only [facility] Oncology and Hematology - [place] [address] [place] [address] Provider, Abstract NO ADDRESS ON [...] Procedure Name Priority Date/Time Associated Diagnosis Comments PATHOLOGY REPORT Routine 01/10/2022 documented in this encounter Results * PATHOLOGY REPORT (01/10/2022) Abstract Provider PATHOLOGY/CYTOLOGY O RDERABLES documented in this encounter Visit Diagnoses Not on filedocumented in this encounter Care Teams Summer Associate Relationship Specialty Start Date End Date Etienne Maher DO [address] [place] [id number] PCP - General Internal Medicine 03/01/22 04/19/22 documented as of this encounter
--- OUTSIDE RECORDS SUMMARY | 2024-11-25 05:09 | XMS_ITS | Encounter Summary ---
Author Organization [email or web address] Address [address] [place] [address] Care Team Providers Care Tongue And Groove Machine Feeder Name Role Phone Etienne Maher Primary Care Provider [phone] Reason for Referral * PET Scan (Routine) - Closed Specialty Diagnoses / Procedures Referred By Contac t Referred To Contact Diagnoses Malignant neoplasm of right lung, unspecified part of lung Procedures PET TUMOR IMG W CT SKL BSE MID THG Matty Murry MD [address] [place] [phone] [place] [address] Referral ID Status Reason Start Date Expiration Date V isits Requested Visits Authorized [id number] Closed STL CTS 05/03/2022 08/01/2022 1 1 Reason for Visit * Reason Comments Establish Care Establish care for H ospital Follow up / lung mass Encounter Details Date Type Department Care Team (Late st Contact Info) Description 04/20/2022 2:00 PM CDT Office Visit [facility] Oncology and Hematology [facility] [address] [place] [address] [facility] [address] [place] [address] Matty Murry MD [address] [place] [address] Malignant neoplasm of right lung, unspecified part of lung (Primary Dx); Malignant neoplasm of upper lobe [...] Sign Reading Time Taken Comments Blood Pressure 127/69 04/20/2022 2:05 PM CDT Pulse 76 04/20/2022 2:05 PM CDT Temperature 36.4 ??C (97.5 ??F) 04/20/2022 2:05 PM CD T Respiratory Rate - - Oxygen Saturation 96% 04/20/2022 2:05 PM CDT Inhaled Oxygen Concentration - - Weight 93.4 kg (205 lb 14.4 oz) 04/20/2022 2:05 PM CDT Height 172.7 cm (5' 8 ) 04/20/2022 2:05 PM CDT Body Mass Index 31.31 04/20/2022 2:05 PM CDT documented in this encounter Progress Notes * Matty Murry MD - 04/20/2022 4:07 PM CDT Hematology-oncology consult Note Requesting Physician Etienne Maher, DO Primary Care Physician Etienne Maher, DO Problem list There is no problem list on file for this patient. Previous TREATMENT ? Measurable Disease ? Reason for Visit Farhan Armstrong is a 76 y.o. male who was referred for consultation for lung cancer. History of present illness This is a 76-year-old male with history of smoking and COPD along with congestive heart failure. He quit smoking more than 20 years ago. He was admitted to the hospital on January 02 due to mental status changes. Patient had CT chest performed that showed 3.1 x 2.3 cm perihilar right upper lobe lung mass. There was some calcified pleural plaques may represent asbestosis exposure. There was no pathologically enlarged lymph node. Patient had CT-guided biopsy of the right upper lobe lung mass done on January 10 that came back positive for squamous cell carcinoma. He was then transferred to [facility]. He was seen by the primary care physician who instructed him to follow-up with oncology. He seems to be much more awake and alert today. He denies any chest pain and abdominal pain. Denies any weight loss. No other new complaints. Past Medical History Past Medical History: Diagnosis Date ??? CHF (congestive heart failure) ??? Diabetes mellitus ??? Emphysema of lung ??? HTN (hypertension) ??? Psychiatric disorder depression Surgical History Past Surgical History: Procedure Laterality Date ??? HX ARM WOUND REPAIR / CLOSURE spider bite ??? HX HERNIA REPAIR ??? HX TONSILLECTOMY Medications No current outpatient medications on file. No current facility-administered medications for this visit. Allergies Allergies Allergen Reactions ??? Penicillins Other (See Comments) Trouble breathing Immunizations: There is no immunization history on file for this patient. Family History Family History Problem Relation Name Age of Onset ??? Cancer Sister Social History Social History Tobacco Use ??? Smoking status: Former Smoker Types: Cigarettes ??? Smokeless tobacco: Never Used ??? Tobacco comment: quit in 1999 Substance Use Topics ??? Alcohol use: Never Review of Systems Constitutional: Patient did not mention fever; no night sweats; no anorexia; no weight loss; no fatique NEENT: Patient did not mention headache; no change in vision; no change in hearing; no sore throat;no dysphagia Respiratory: Patient did not mention shortness of breath; no pleuritic chest pain; no cough; no hemoptysis Cardiac: Patient did not mention cardiac-like chest pain; no palpitations; no orthopnea; no PND; noDOE GI: Patient did not mention abdominal pain; no nausea; no vomiting; no diarrhea; no hematochezia; no melena : Patient did not mention dysuria; no frequency; no hesitancy; no hematuria OUTSOLE TACKER: Musculosketetal: Patient did not mention bone pain; no arthralgia; no joint swelling; no myalgia; Skin: Patient did not mention pruritis; no rash; no petechiae; no ecchymoses Endocrine: Patient did not mention polydipsia; no polyuria; no unusual weight gain Neuro: Patient did not mention headache; no change in vision; no sensory changes; no muscle weakness; no confusion; no seizures Psych: Patient did not mention anxiety; no depression; Physical Exam Vitals: As per nursing note Constitutional: Well developed, well nourished, no acute distress, non-toxic appearance Teeth and gum. No signs of infection or swelling. Eyes: PERRL, conjunctiva normal HEENT: Atraumatic, external ears normal, nose normal, [...] normal sensory function, no focal deficits noted Psychiatric: Speech and behavior appropriate ? labs No results found for this or any previous visit (from the past 24 hour(s)). Pathology ? Imaging & Other Studies Performance Status? ECOG performance status 1 Assessment / Plan: ? Non-small cell lung cancer status post CT-guided biopsy of the right upper lobe lung mass done on January 10, 2022 that showed squamous cell carcinoma PD-L1 expression of 5% K-ann mutation not detected, EGFR mutation not detected, ALK gene rearrangement ROS1 gene rearrangement mutation not detected. Patient lost follow-up after discharge from the hospital and was told to come back to the office by the primary care physician. He is accompanied by his son today. He seems to be much more awake and alert. I have discussed the final pathology and imaging studies finding. I recommended whole-body PET scan. Based on the PET scan we will refer him to surgery versus radiation oncology. He may need to have a pulmonary function testing done prior to the surgical consultation if seems to have early stage disease based on the PET scan. I have answered all the questions to patient and the son satisfaction. Hypothyroidism. Patient is on levothyroxine. Type 2 diabetes. He is on metformin. Peripheral neuropathy. Patient is on methadone. Thank you very much for allowing me to participate in Farhan Armstrong's evaluation and management. Please feel free to contact if I can be of any further assistance in your patient???s care requiring hematology or oncology evaluation. Sincerely, ? ? Matty Murry M.D. cell TOBACCO COUNSELING He is not a tobacco user. Matty Murry MD ,04/20/2022 4:07 PM ? Total time spent 60 minutes, two third of the total time spent counseling patient [id number]. CC:?Etienne aMher DO documented in this encounter Plan of Treatment Scheduled Orders Name Type Priority Associated Diagnoses Orde r Schedule PET TUMOR IMG W CT SKL BSE MID THG Imaging Routine Malignant neoplasm of right lung, unspecified part of lung Expected: 04/21/2022, Expires: 04/20/2023 documented as of this encounter Visit Diagnoses Diagnosis Malignant neoplasm of right lung, unspecified part of lung- Primary Malignant neoplasm of upper lobe of right lung Malignant neoplasm of upper lobe, bronchus or lung documented in this encounter Care Teams Tongue And Groove Machine Feeder Relationship Specialty Start Date End Date Etienne Maher DO [address] [facility] [address] [facility] [address] [place] [address] PCP - General Internal Medicine 04/20/22 documented as of this encounter
--- OUTSIDE RECORDS SUMMARY | 2024-11-25 05:09 | XMS_ITS | Continuity of Care Document ---
Author Organization [email or web address] Address [address] [place] [address] Phone Care Team Providers Care Oenologist Name Role Phone Johnny Oliver MD Unavailable Unavailable Allergies, Adverse Reactions, Alerts Substance Reaction Status Criticality Penicillins Rash Active No Information Medications Medication Instructions Dosage Effective Dates (start - stop) Status Comments allopurinol 300 mg tablet TAKE ONE TABLET BY MOUTH ONCE DAILY - Active hydrocodone 10 mg-acetaminophen 325 mg tablet 1 as needed for breakthouigh pain at 4- 6 hours interval - Active Cymbalta 60 mg capsule,delayed release 1 twice daily - Active for chronic pain... may substitute generic if available. GLIMEPIRIDE 2 MG TABLET TAKE ONE AND ONE-HALF TABLET BY MOUTH TWICE A DAY - Active Percocet 10 mg-325 mg tablet Take 1 tablet as needed every 4 hours - Active tamsulosin ER 0.4 mg capsule,extended release 24 hr 1 twice daily - Active amlodipine 5 mg tablet TAKE 1.5 TABLETS BY MOUTH DAILY - Active dose increased 02/10/14 LISINOPRIL-HCTZ 20-25 MG TAB TAKE TWO TABLETS BY MOUTH ONCE DAILY 2 Tablet - Active simvastatin 10 mg tablet TAKE ONE TABLET BY MOUTH AT BEDTIME - Active Stool Softener 50 mg capsule TAKE 2 CAPSULES BY MOUTH AT BEDTIME - Active OMEPRAZOLE DR 20 MG CAPSULE TAKE ONE CAPSULE BY MOUTH TWICE A DAY - Active ibuprofen 200 mg tablet take 2 (400MG) by oral route every 6 hours as needed with food 400 MG - Active citalopram 20 mg tablet 1 daily - Active Vitamin D3 1,000 unit tablet take 1 by Oral route QD 1 - Active Vitamin C 500 mg Tab take by Oral route every day Not Available - Active ropinirole 1 mg Tab take 1 tablet (1MG) by oral route every bedtime 1 MG - Active from Dr Corado garlic 1,000 mg Cap take 1 by Oral route every day 1 - Active ONE TOUCH ULTRA TEST STRIPS 1 DIRECTE 400 MG - Active testing QDdx 250.02 MULTIPLE VITAMIN W-MINERALS TB 1 QD-daily 400 MG - Active BUPROPION HCL SR 150MG TABS 1 DAILY 400 MG - Active Advance Directives Directive Yes / No Effective Date File Name No Information Encounters Encounter Description Practice Location Reason(s) For Visit Diagnoses Date Provider Providers Copied on Encounter [email or web address], [address], [place], [place], [address] , tel:[phone] [facility] No Information 5 Oliver Johnny. [address] [facility] [address] [place] [address], [id number]. tel:[phone] [facility], [address], [place], [address] , tel:[phone] [facility] No Information 4 Oliver Johnny. [address] , [address], [address]. tel:[phone] [facility] [address], [place], [place], [address] , [place] tel: [phone] [facility] No Information 4 Oliver Johnny. [address] , [address], [place], [place], [address]. tel:[phone] [facility], [address], [place], [place], [address] , tel: [phone] [facility] No Information 4 Oliver Johnny. [address] , [address], [place], [place], [address]. tel:[phone] [facility] [address], [place], [place], [address] , tel: [phone] [facility] No Information Nov-1 0-201 4 Oliverlupe Turner. [address] [facility], [address], [place], [place], [address]. tel:[phone] [facility] [address], [place], [address] , [place] tel: [phone] [facility] No Information Oct-3 0-201 4 Benito Turner. [address] [facility], [address], [place], [place], [address]. tel:[phone] [facility] [address], [place], [address] , tel: [phone] [facility] Sciatic neuralgiaHyperlip emiaHypertension Aug-2 4-201 4 Oliverlupe Turner. [address] [facility], [address], [place], [place], [address]. [phone] Referring Provider: Johnny Oliver, [address] [facility] [address], [place], [address] . tel:[phone] [facility] [address], [place], [place], [address] , [place] tel: [phone] [facility] No Information Sep-0 5-201 4 Oliverlupe Turner. [address] [facility], [address], [place], [place], [address]. tel:[phone] Referring Provider: Johnny Oliver, [address] [facility] [address], [place], [address] . tel:[phone] [facility] [address], [place], [address] , [place] tel: [phone] [facility] HyperlipidemiaTyp e II diabetes mellitusMorbid obesityBMI 40.0-44.9, adultHypertension Lumbar disc diseaseDepressive disorderAtheroscl erosis of aorta 4 Benito Turner. [address] [facility] [address], [address], [place], [place], [address]. [phone] Referring Provider: Johnny Oliver, [address] [facility] [address], [place], [address] . tel:[phone] Ayi Laile [employer], [address], [place], [place], [address] , tel: [phone] [facility] Unspecified essential hypertensionOther and unspecified hyperlipidemiaTyp e II diabetes mellitusDepressiv e disorder 4 Benito Turner. [address] [facility] [address], [address], [place], [place], [address]. tel:[phone] Referring Provider: Johnny Oliver, [address] [facility] [address], [place], [address] . tel:[phone] [facility], [address], [place], [place], [address] , tel: [phone] [facility] No Information 4 Benito Turner. [address] [facility], [address], [place], [place], [address]. tel:[phone] [facility], [address], [place], [place], [address] , tel: [phone] [facility] HypertensionLumba r disc disease with radiculopathyType II diabetes mellitusHyperlipi demiaDepressionMo rbid obesity 4 Benito Turner. [address] [facility] [address], [address], [place], [place], [address]. tel:[phone] Referring Provider: Johnny Oliver, [address] [facility] [address], [place], [address] . tel:[phone] [facility], [address], [place], [address] , tel: [phone] [facility] History of fall/At Risk For FallingNauseaHype rlipidemiaType II diabetes mellitusLow back painGreater trochanteric bursitis of right hip 4 Benito Johnny. [address] [facility] [address], [address], [place], [place], [address]. tel:[phone] Referring Provider: Johnny Oliver, [address] [facility] [address], [place], [address] . tel:[phone] Ayi Laile [employer], [address], [place], [address] , tel: [phone] [facility] CAD, UnspecifiedTherap eutic Drug MonitoringHTNDiab etes Mellitus, Adult Onset, Uncontrolled 4 Benito Johnny. [address], [address], [place], [place], [address]. tel:[phone] Referring Provider: Johnny Oliver, [address] [facility] [address], [place], [address] . tel:[phone] Ayi Laile [employer], [address], [place], [address] , [place] tel: [phone] [facility] Sciatica neuralgiaMorbid obesityCAD (coronary artery disease)Major depression in remission 3 Benito Turner. [address] [facility] [address] [address], [place], [place], [address]. tel:[phone] Referring Provider: Johnny Oliver, [address] [facility] [address], [place], [address] . tel:[phone] [facility], [address], [place], [place], [address] , [place] tel: [phone] [facility] Bilateral lower extremity edema 3 Jose Lloyd. [address] [place] [address], [id number], [place]. tel:[phone] Referring Provider: Prema Damian, [address] [place] [address], [place], [address] . tel:[phone] [facility], [address], [place], [address] , tel: [phone] [facility] No Information 3 Benito Turner. [address] [facility], [address], [place], [place], [address]. tel:[phone] Referring Provider: Johnny Oliver, [address] [facility] [address], [place], [address] . tel:[phone] [facility], [address], [place], [place], [address] , tel: [phone] [facility] No Information 3 Benito Turner. [address] [facility], [address], [place], [place], [address]. tel:[phone] [facility] [address], [place], [place], [address] , tel: [phone] [facility] Benign essential hypertensionAther osclerosis of aortaCAD (coronary artery disease)Morbid obesitySciatica neuralgiaNarcotic analgesic habituation, continuousMajor depression in complete remissionType II diabetes mellitus 3 Benito Turner. [address] [facility], [address], [place], [place], [address]. tel:[phone] Referring Provider: Johnny Oliver, [address] [facility] [address], [place], [address] . tel:[phone] [facility] [address], [place], [address] , tel: [phone] [facility] Diabetes mellitus without mention of complication, type II or unspecified type, not stated as uncontrolledUnspe cified essential hypertensionMorbi d obesityOther and unspecified hyperlipidemiaScr eening for malignant neoplasms of the prostate 3 Benito Turner. [address] [facility], [address], [place], [place], [address]. tel:[phone] Referring Provider: Johnny Oliver, [address] [facility] [address], [address] . tel:[phone] [facility], [address], [place], [place], [address] , tel: [phone] [facility] DM w/o complication type IIAtherosclerosis of aortaChronic ischemic heart disease, unspecifiedCOPD (chronic obstructive pulmonary disease)History of major depressionMorbid obesity with BMI of 40.0-44.9, adultBody mass index 40.0-44.9, adultHypertension 3 Benito Turner. [address] [employer] , [address], [place], [place], [address]. tel:[phone] Referring Provider: Johnny Oliver, [address] [employer] [address], [place], [address] . tel:[phone] [facility], [address], [place], [place], [address] , tel: [phone] [facility] Chronic ischemic heart disease, unspecifiedDiabet es mellitus without mention of complication, type II or unspecified type, uncontrolledLong- term (current) use of other medicationsMorbid obesity 3 Benito Turner. [address] [employer] , [address], [place], [place], [address]. tel:[phone] Referring Provider: Johnny Oliver, [address] [employer] [address], [place], [address] . tel:[phone] [facility], [address], [place], [address] , tel: [phone] [facility] Bilateral carpal tunnel syndromeLow back painLumbar disc diseaseHistory of major depressionType II diabetes mellitusCOPD (chronic obstructive pulmonary disease)CAD (coronary artery disease)Morbid obesity 3 Benito Turner. [address] [employer] , [address], [place], [place], [address]. tel:[phone] Referring Provider: Johnny Oliver, [address] [facility] [address], [place], [address] . tel:[phone] [facility], [address], [place], [place], [address] , tel: [phone] [facility] Diabetes mellitus without mention of complication, type II or unspecified type, not stated as uncontrolledChron ic ischemic heart disease, unspecifiedOther and unspecified hyperlipidemiaUns pecified essential hypertension 2 Benito Turner. [address] [employer] , [address], [place], [place], [address]. tel:[phone] Referring Provider: Johnny Oliver, [address] [employer] [address], [place], [address] . tel:[phone] [facility], [address], [place], [place], [address] , tel: [phone] [facility] Coronary atherosclerosis of unspecified type of vessel, [place] or graftBenign essential hypertensionLong- term (current) use of other medications 2 Benito Turner. [address] [facility], [address], [place], [place], [address]. tel:[phone] Referring Provider: Johnny Oliver, [address] [facility] [address], [place], [address] . tel:[phone] [facility], [address], [place], [place], [address] , tel: [phone] [facility] Diabetes mellitus without mention of complication, type II or unspecified type, not stated as uncontrolledChron ic ischemic heart disease, unspecified 2 Benito Turner. [address] [employer] [address], [address], [place], [place], [address]. tel:[phone] Referring Provider: Johnny Oliver, [address] [facility] [address], [place], [address] . tel:[phone] [facility], [address], [place], [place], [address] , tel: [phone] [facility] Diabetes mellitus type 2, controlledOSA (obstructive sleep apnea)CAD (coronary artery disease)Morbid obesityAdult BMI 40.0-44.9 kg/sq m 2 Benito Johnny. [address] [facility], [address], [place], [place], [address]. tel:[phone] Referring Provider: Johnny Oliver, [address] [facility] [address], [place], [address] . tel:[phone] [facility], [address], [place], [place], [address] , tel: [phone] [facility] Diabetes mellitus without mention of complication, type II or unspecified type, not stated as uncontrolledUnspe cified essential hypertensionOther and unspecified hyperlipidemiaLon g-term (current) use of other medicationsScreen ing for malignant neoplasms of the prostate 2 Benito Johnny. [address] [facility], [address], [place], [place], [address]. tel:[phone] Referring Provider: Johnny Oliver, [address] [facility] [address], [place], [address] . tel:[phone] [facility], [address], [place], [place], [address] , tel: [phone] [facility] Obstructive airway diseaseMorbid obesityBMI 40.0-44.9, adultDiabetes mellitus type 2, controlledObstruc tive sleep apneaDepressionAl coholism in remission 2 Benito Johnny. [address] [facility], [address], [place], [place], [address]. tel:[phone] Referring Provider: Johnny Oliver, [address] [facility] [address], [place], [address] . tel:[phone] [facility], [address], [place], [place], [address] , tel: [phone] [facility] Chronic airway obstruction, not elsewhere classifiedDiabete s mellitus without mention of complication, type II or unspecified type, not stated as uncontrolledBENIG N LOCALIZED HYPERPLASIA OF PROSTATE WITH URINMorbid obesityBMI 40.0-44.9, ADULTAtherosclero sis of aortaPain in joint involving/arthral harjit Other specified sites 2 Benito Turner. [address] [employer] , [address], [place], [place], [address]. tel:[phone] Referring Provider: Johnny Oliver, [address] [employer] [address], [place], [address] . tel:[phone] [facility], [address], [place], [place], [address] , tel: [phone] [facility] Unspecified essential hypertensionOther and unspecified hyperlipidemia 2 Benito Turner. [address] [employer] , [address], [place], [place], [address]. tel:[phone] Referring Provider: Johnny Oliver, [address] [employer] [address], [place], [address] . tel:[phone] [facility], [address], [place], [address] , [place] tel: [phone] [facility] Rash and other nonspecific skin eruptionSCIATICAD iabetes mellitus without mention of complication,HYPE RTENSION NOS 2 Benito Turner. [address] [employer] , [address], [place], [place], [address]. tel:[phone] Referring Provider: Johnny Oliver, [address] [employer] [address], [place], [address] . tel:[phone] [facility], [address], [place], [place], [address] , tel: [phone] [facility] itching (chief complaint) pain in neck (chief complaint) problems with urination (chief complaint) Rash and other nonspecific skin eruptionMorbid obesityBMI 40.0-44.9, ADULTBENIGN LOCALIZED HYPERPLASIA OF PROSTATE WITH URINARY OBSTRUCTION 2 Benito Turner. [address] [employer] , [address], [place], [place], [address]. tel:[phone] Referring Provider: Johnny Oliver, [address] [facility] [address], [place], [address] . tel:[phone] Ayi La[facility] [employer], [address], [place], [place], [address] , tel:[phone] [facility] Long-term (current) use of other medications Sep-2 1 Benito Turner. [address] [facility] [address], [address], [place], [place], [address]. tel:[phone] Referring Provider: Johnny Oliver, [address] [facility] [address], [place], [address] . tel:[phone] [facility], [address], [place], [address] , [place] tel:[phone] [facility] SciaticaObstructi ve sleep apnea (adult)(pediatric )Nondependent alcohol abuse, in remissionRESTLESS LEGS SYNDROME Sep-2 1 Benito Turner. [address] [facility] [address], [address], [place], [place], [address]. tel:[phone] Referring Provider: Johnny Oliver, [address] [facility] [address], [place], [address] . tel:[phone] [facility], [address], [place], [place], [address] , [place] tel: [phone] [facility] No Information Jul-0 1 Antonio Esteban. [address] [place] [address], [address], [place]. tel:[phone] Ayi Lailee [employer], [address], [place], [place], [address] , [place] tel:[phone] [facility] NEURALGIA/NEURITI S NOS Yassine-0 1 Benito Turner. [address] [facility], [address], [place], [place], [address]. [phone] Ayi Laile [employer], [address], [place], [place], [address] , [place] tel: [phone] [facility] HYPERLIPIDEMIA NEC/NOS 1 [facility]. [address], [place], [address], [place]. [facility], [address], [place], [place], [address] , [place] tel: [phone] [facility] DMII WO CMP NT ST UNCNTROBSTRUCTIVE SLEEP APNEAHYPERTENSION NOS 1 Oliver Johnny. [address] [facility] [address], [address], [place], [place], [address]. tel: [phone] Ayi Laile [employer], [address], [place], [address] , [place] tel: [phone] [facility] CHR AIRWAY OBSTRUCT NECMORBID OBESITYESOPHAGEAL REFLUXLUMBOSACRAL NEURITIS NOS 1 Oliver Johnny. [address] [facility], [address], [place], [place], [address]. tel: [phone] Ayi Laile [employer], [address], [place], [address] , [place] tel: [phone] [facility] SCIATICA Fe 1 Oliver Johnny. [address] [facility], [address], [place], [place], [address]. tel: [phone] Ayi La[facility] [employer], [address], [place], [address] , [place] tel: [phone] [facility] CHR ISCHEMIC HRT DIS NOS 0-201 0 Oliver Johnny. [address] [facility] [address], [address], [place], [place], [address]. tel: [phone] Ayi La[facility] [employer], [address], [place], [address] , [place] tel: [phone] [facility] HEMORRHOIDS NOS 2-201 0 Oliver Johnny. [address] [facility], [address], [place], [place], [address]. tel: [phone] Ayi La[facility] [employer], [address], [place], [address] , [place] tel: [phone] [facility] BENIGN NEOPLASM LG BOWEL 4201 0 Oliver Johnny. [address], [address], [place], [place], [address]. tel: [phone] [facility], [address], [place], [address] , [place] tel: [phone] [facility] VACCIN FOR INFLUENZA 0-201 0 Oliver Johnny. [address] [facility] [address], [address], [place], [place], [address]. tel: [phone] [facility], [address], [place], [address] , [place] tel: [phone] [facility] DMII WO CMP UNCNTRLDOBESITY NOSND VAC STRPTCS PNEUMNI B 1201 0 Oliver Johnny. [address] [facility], [address], [place], [place], [address]. tel: [phone] [facility], [address], [place], [place], [address] , [place] tel: [phone] [facility] SCRN MALIG NEOP-PROSTATE 9201 0 Oliver Johnny. [address] [facility], [address], [place], [place], [address]. tel: [phone] [facility], [address], [place], [address] , [place] tel: [phone] [facility] CONSTIPATION NECORGANIC INSOMNIA NOSLUMBAGO 7-201 0 Oliver Johnny. [address] [facility] [address], [address], [place], [place], [address]. tel: [phone] [facility], [address], [place], [address] , [place] tel: [phone] [facility] BENIGN HYPERTENSIONUMBIL ICAL HERNIA 8-200 9 Oliver Johnny. [address] [facility] [address], [address], [place], [place], [address]. tel: [phone] Ayi Laile [employer], [address], [place], [address] , [place] tel: [phone] [facility] LONG-TERM USE MEDS NEC May-2 4-200 9 Oliver Johnny. [address], [place], [place], [address]. tel: [phone] [facility], [address], [place], [address] , [place] tel: [phone] [facility] CARPAL TUNNEL SYNDROME May-0 4-200 9 Oliver Johnny. [address], [address], [place], [place], [address]. tel: [phone] Ayi Laile [employer], [address], [place], [address] , [place] tel: [phone] [facility] RESTLESS LEGS SYNDROME Mar-0 5-200 9 Oliver Johnny. [address] , [address], [place], [place], [address]. tel: [phone] Ayi Laile [employer], [address], [place], [address] , [place] tel: [phone] [facility] ALCOHOL ABUSE-IN [facility] W URIN OBS/LUTS Jun-2 0-200 8 Oliver Johnny. [address] , [address], [place], [place], [address]. tel: [phone] Ayi Laile [employer], [address], [place], [place], [address] , [place] tel: [phone] [facility] ANXIETY STATE NEC May-0 7-200 8 Oliver Johnny. [address] [facility] [address], [address], [place], [place], [address]. tel: [phone] Ayi Laile [employer], [address], [place], [place], [address] , [place] tel: [phone] [facility] ABNORMALITY OF GAIT Jan-1 1-200 8 Oliver Johnny. [address] [facility], [address], [place], [place], [address]. tel:[phone] [facility], [address], [place], [address] , tel: [phone] [facility] GOUTY ARTHROPATHY 8 Conversion Doctor. [address] [facility], [place], [address], [place]. [facility]i La[facility] [employer], [address], [place], [address] , tel: [phone] [facility] SEBACEOUS CYSTDEPRESSIVE DISORDER NEC 200 8 Oliver Johnny. [address] [facility] [address], [address], [place], [place], [address]. tel:[phone] [facility], [address], [place], [place], [address] , tel: [phone] [facility] PAIN IN LIMB 200 8 Oliver Johnny. [address] [facility], [address], [place], [place], [address]. tel:[phone] Family History Family Member Type Diagnosis Age At Onset Father Problem (finding) No Family hist ory of No history of appendicitis (Cause Of ) Mother Problem (finding) congestive hea rt failure (Cause Of ) Father Problem (finding) Sister Problem (finding) No Family history of No history of alive 69 Problem (finding) Sister Problem (finding) No Family history of No history of alive 71 Mother Problem (finding) Immunizations Vaccine Date Status Comments Fluzone administered Source: New Imm unization Record Flu (split) (3 yrs or older) administered Source: New Immunization Record Flu (split) (3 yrs or older) administered Source: New Immunization Record 35623 - Influenza administered Source: So urce Unspecified 20332 - Pneumococcal_PPV23 administered S ource: Source Unspecified 17140 - Influenza administered Source: So urce Unspecified 68396 - Influenza administered Source: [place] ur[place] Unspecified Payers Payer name Insurance type Covered republican ID Authorjamesa amado(s) [facility] [id number] Social History Type Description Quantity Date Captured Comments Alcohol Use Details Unknown Caffeine Use Details Unknown Tobacco Use Status Smoking Status No Information Sex Male Chief Complaint And Reason For Visit No Information Reason For Referral Reason For Referral No Information History Of Present Illness Encounter Date Complaint History Of Prese nt Illness No Information Functional Status Date Functional Assessmen t No Information Instructions Date Instruction Additional Infor mation No Information Assessments Type Assessment Date No Information Patient Care Teams Name Effective Dates (start - stop) Status Members No Information
--- OUTSIDE RECORDS SUMMARY | 2024-11-25 05:09 | XMS_ITS | Encounter Summary ---
Author Organization [facility] Address [address] Vald[place]n: Epic Prelude ADT DAVIDE HARRISON [address] Care Team Providers Care Assembly Loader Name Role Phone Etienne Maher DO Primary Care Provider [phone] Encounter Details Date Type Department Care Team (Latest Contact Info) Description 04/20/2022 Travel Social History Tobacco Use Types Packs/Day [...] on filedocumented in this encounter Care Teams Assembly Loader Relationship Specialty Start Date End Date Etienne Maher DO [address] [place] [address] PCP - General Internal Medicine 04/20/22 documented as of this encounter
--- OUTSIDE RECORDS SUMMARY | 2024-11-25 05:09 | XMS_ITS | Encounter Summary ---
Author Organization [facility] Address [address] Vald[place]n: Epic Prelude ADT DAVIDE HARRISON [address] Care Team Providers Care Manager Study Name Role Phone Etienne Maher DO Primary Care Provider [phone] Encounter Details Date Type Department Care Team (Latest Contact Info) Description 05/14/2022 Travel Social History Tobacco Use Types Packs/Day [...] suspected to have Coronavirus/COVID-19? No / Unsure 05/14/2022 1:59 PM CDT documented as of this encounter Plan of Treatment Not on file documented as of this encounter Visit Diagnoses Not on filedocumented in this encounter Care Teams Manager Study Relationship Specialty Start Date End Date Etienne Maher DO [address] [place] [address] PCP - General Internal Medicine 04/20/22 documented as of this encounter
--- OUTSIDE RECORDS SUMMARY | 2024-11-25 05:09 | XMS_ITS | Encounter Summary ---
Author Organization [facility] Address [address] [place]n: Epic Prelude ADT DAV[place] HARRISON [address] Care Team Providers Care Checker And Packer Name Role Phone Etienne Maher DO Primary Care Provider [phone] Encounter Details Date Type Department Care Team (Latest Contact Info) Description 05/10/2022 Travel Social History Tobacco Use Types Packs/Day [...] on filedocumented in this encounter Care Teams Checker And Packer Relationship Specialty Start Date End Date Etienne Maher DO [address] [place] [address] PCP - General Internal Medicine 04/20/22 documented as of this encounter
--- OUTSIDE RECORDS SUMMARY | 2024-11-25 05:09 | XMS_ITS | Encounter Summary ---
Author Organization [facility] Address [address] Val[place]n: Epic Prelude ADT DAV[place] HARRISON [address] Care Team Providers Care Central Supply Technician Supervisor Name Role Phone Etienne Maher DO Primary Care Provider [phone] Encounter Details Date Type Department Care Team (Latest Contact Info) Description 05/16/2022 Travel Social History Tobacco Use Types Packs/Day [...] on filedocumented in this encounter Care Teams Central Supply Technician Supervisor Relationship Specialty Start Date End Date Etienne Maher DO [address] [place] [address] PCP - General Internal Medicine 04/20/22 documented as of this encounter
--- OUTSIDE RECORDS SUMMARY | 2024-11-25 05:09 | XMS_ITS | Encounter Summary ---
Author Organization [facility] Address [address] [place] [address] Care Team Providers Care Mental Health Social Worker Name Role Phone Etienne Maher DO Primary Care Provider [phone] Reason for Visit * Reason Onset Date Comments Information 05/17/2022 Encounter Details Date Type Department Care Team (Late st Contact Info) Description 05/17/2022 Telephone [facility] Cardiovas and Thor Surg at [facility] [address] [place] [address] Cosmo Rene MD [address] [place] [address] Information Social History Tobacco Use Types Packs/Day Years [...] PM CDT documented as of this encounter Miscellaneous Notes * Telephone Encounter - Abner Rios RN - 05/17/2022 9:12 AM CDT Spoke with patient regarding plan to proceed with radiation oncology appointment after Dr. Rnee and Dr. Murry discussed plan. Advised patient that order was placed yesterday and that if he does not hear anything by next week,to call Dr. Murry's office. documented in this encounter Plan of Treatment Not on file documented as of this encounter Visit Diagnoses Not on filedocumented in this encounter Care Teams Mental Health Social Worker Relationship Specialty Start Date End Date Etienne Maher DO [address] [facility] [address] [facility] [address] [place] [address] PCP - General Internal Medicine 04/20/22 documented as of this encounter
--- OUTSIDE RECORDS SUMMARY | 2024-11-25 05:09 | XMS_ITS | Encounter Summary ---
Author Organization [facility] Address [address] [place] [address] Care Team Providers Care Histologic Technician Name Role Phone Etienne Maher Primary Care Provider [phone] Reason for Visit * Reason Comments Surgical Consult Encounter Details Date Type Department Care Team (Late st Contact Info) Description 05/16/2022 2:30 PM CDT Office Visit [facility] Cardiovas and Thor Surg at [facility] [address] [place] [address] Cosmo Rene MD [address] [place] [address] Malignant neoplasm of upper lobe of right [...] Sign Reading Time Taken Comments Blood Pressure 110/60 05/16/2022 2:33 PM CDT Pulse 80 05/16/2022 2:33 PM CDT Temperature - - Respiratory Rate - - Oxygen Saturation 93% 05/16/2022 2:33 PM CDT Inhaled Oxygen Concentration - - Weight 95.3 kg (210 lb) 05/16/2022 2:33 PM CDT Height 172.7 cm (5' 8 ) 05/16/2022 2:33 PM CDT Body Mass Index 31.93 05/16/2022 2:33 PM CDT documented in this encounter Progress Notes * Cosmo Rene MD - 05/16/2022 2:30 PM CDT Images from the original note were not included. Cardiothoracic Surgery Consult Patient Name: Farhan Armstrong / 76 y.o. / male : 1945 Referring Physician: Dr. Murry HPI: Farhan Armstrong is a 76 y.o. year-old male who presents for consultation regarding RUL SCC. He has a known medical history of COPD, CHF, chronic afib, DMT2, HLD, ANIA, RLS, and former smoker. He is an assisted living resident. He was admited to OSH in December for mental status changes when he had a CT chest revealing 3.1 x 2.[address] biopsy of mass 01/10/22 returned positive for SCC. Duringthat time he also had brain MRI for workup of his mental status changes that was negative for acutedisease. He was transferred out of hospital to a [place] and briefly lost to follow up before being arranged with Dr. Murry for consultation by his PCP. Whole body PET scan was recommended which was performed on 05/03/2022 revealing 5.3 x 3.8 cm RUL mass (increased from previous imaging) with SUV uptakeof 23.3, and no evidence of distant metastasis. At this point he was referred to thoracic surgery for consideration of resection. The patient presents to clinic today to discuss. Pt denies cough, cp,dyspnea, wt loss, hemoptysis, night sweats, nausea/vomiting. Per last note by Dr. Murry, PFTs were ordered at completion of last visit. They are yet to be completed. PET scan 05/03/2022: Medications Current Outpatient Medications Medication Sig Dispense Refill ??? albuterol sulfate 90 mcg/Actuation inhaler ??? ARIPiprazole (ABILIFY) 2 mg tablet ??? aspirin (ECOTRIN EC) 81 mg Tablet, Delayed Release (E.C.) ??? buPROPion HCL (WELLBUTRIN XL) 300 mg Extended Release 24 hour tablet ??? furosemide (LASIX) 20 mg tablet ??? furosemide (LASIX) 40 mg tablet ??? gabapentin (NEURONTIN) 100 mg capsule No current facility-administered medications for this visit. Past Medical History: Past Medical History: Diagnosis Date ??? CHF (congestive heart failure) ??? Diabetes mellitus ??? Emphysema of lung ??? HTN (hypertension) ??? Psychiatric disorder depression Diabetes?: yes Medication: oral hypoglycemic agents Hgb A1c: No results found for: HGBA1C, OGMB1PCKI Past Surgical History: Past Surgical History: Procedure Laterality Date ??? HX ARM WOUND REPAIR / CLOSURE spider bite ??? HX HERNIA REPAIR ??? HX TONSILLECTOMY Allergies: Allergies Allergen Reactions ??? Penicillins Other (See Comments) Trouble breathing Family History: Family History Problem Relation Name Age of Onset ??? Cancer Sister Social History: Social History Socioeconomic History ??? Marital status: Spouse name: Not on file ??? Number of children: Not on file ??? Years of education: Not on file ??? Highest education level: Not on file Occupational History ??? Not on file Tobacco Use ??? Smoking status: Former Smoker Types: Cigarettes ??? Smokeless tobacco: Never Used ??? Tobacco comment: quit in 1999 Vaping Use ??? Vaping Use: Never used Substance and Sexual Activity ??? Alcohol use: Never ??? Drug use: Never ??? Sexual activity: Not on file Other Topics Concern ??? Not on file Social History Narrative ??? Not on file Social Determinants of Health Financial Resource Strain: Not on file Food Insecurity: Not on file Transportation Needs: Not on file Physical Activity: Not on file Stress: Not on file Social Connections: Not on file Intimate Partner Violence: Not on file Housing Stability: Not on file Review of Systems: History obtained from the patient Constitutional: denies fevers, chills, weight loss Respiratory: denies hemoptysis, wheeze Cardiovascular: denies chest pain, irregular heart beats Gastrointestinal: denies abdominal pain, change in bowel habits, no hematochezia, hematemesis Genitourinary: denies dysuria, frequency Hematologic: denies: bruising, bleeding Musculoskeletal: denies myalgias and muscle weakness Skin: denies rash, abnormal lesions, urticaria, pruritis Neurological: denies motor or sensory deficit Behavior, Psychologic: denies anxiety and depression Physical Exam: BP 110/60 Pulse 80 Ht 5' 8 (1.727 m) Wt 95.3 kg (210 lb) SpO2 93% BMI 31.93 kg/m?? General appearance: alert, in no distress Eyes: No acute conjunctivitis, sclerae anicteric Neck: neck is supple, trachea is midline, no carotid bruit Head: atraumatic, normocephalic, without obvious abnormality Lungs: normal work of breathing, diminished breath sounds diffuse Heart: normal rate and rhythm, + SM at left sternal border Chest Wall: normal exam with no anatomical abnormalities Abdomen: soft, non-tender, bowel sounds normoactive Extremities: extremities atraumatic, no cyanosis or edema, moves all extremities equally Hematologic/lymphatic: no submandibular adenopathy, no neck adenopathy Skin: limited skin examination demonstrates no acute pathologic findings, age appropriate changes, lifelong environmental sun exposure/tanning Neurologic: grossly normal Labs: No results found for: WBC, MANUALWBC, HGB, HGBPOC, HCT, HCTPOC, PLT, MCV No results found for: NA, K, CL, CO2, CA, BUN, CREAT, GLUCOSE, ANIONGAP, BCRATIO Assessment: Locally advanced RUL lung cancer. Patient has multiple comorbidies and advanced age. Anatomically, its likely that patient would require a right pneumonectomy for compete resection. I dont think that given his debilitated status and advanced age, he would tolerate a pneumonectomy. Case was discussed with oncology. Discussed with the patient and son in detail. We recommend referral to radiation oncology for alternative treatment. Patient to be considered for Chemo-radiation. Cosmo Rene MD documented in this encounter Plan of Treatment Not on file documented as of this encounter Visit Diagnoses Diagnosis Malignant neoplasm of upper lobe of right lung- Primary Malignant neoplasm of upper lobe, bronchus or lung documented in this encounter Care Teams Histologic Technician Relationship Specialty Start Date End Date Etienne Maher DO [address] [facility] [address] [place] [address] PCP - General Internal Medicine 04/20/22 documented as of this encounter
--- OUTSIDE RECORDS SUMMARY | 2024-11-25 05:09 | XMS_ITS | Encounter Summary ---
Author Organization [facility] [facility] Address [address] [place] [address] Care Team Providers Care Mechanical Cad Designer Name Role Phone Etienne Maher DO Primary Care Provider [phone] Encounter Details Date Type Department Care Team (Late st Contact Info) Description 05/03/2022 Orders Only [facility] Oncology and Hematology - [place] [address] [place] [address] Provider, Abstract NO ADDRESS ON [...] Procedure Name Priority Date/Time Associated Diagnosis Comments MISCELLANEOUS LAB TEST Routine 04/23/2022 documented in this encounter Results * MISCELLANEOUS LAB TEST (04/23/2022) Abstract Provider CHEMISTRY ORDERABLES documented in this encounter Visit Diagnoses Not on filedocumented in this encounter Care Teams Mechanical Cad Designer Relationship Specialty Start Date End Date Etienne Maher DO [address] [place] [address] PCP - General Internal Medicine 04/20/22 documented as of this encounter
--- OUTSIDE RECORDS SUMMARY | 2024-11-25 05:09 | XMS_ITS | Continuity of Care Document ---
Author Organization [facility] Address [address] [place] [address] [address] [place] [address] Phone Care Team Providers Care Compressor Station Operator Name Role Phone Renea PT, CMPT, Noel Unavailable Ayse vailable Procedures Procedure Date PT RE-EVALUATION THERAPEUTIC EXERCISES NEUROMUSCULAR RE-ED MANUAL THERAPY FUNC ACTIVITY HOT/COLD PACK ELECTRIC STIMULATION UNATT Carrying, Moving And Handling Objects-Cu rrent Carrying, Moving And Handling Objects-Go al Medications Name Dose Freq Route DOC May THERAPEUTIC EXERCISES NEUROMUSCULAR RE-ED MANUAL THERAPY FUNC ACTIVITY HOT/COLD PACK ELECTRIC STIMULATION UNATT Medications Name Dose Freq Route DOC May THERAPEUTIC EXERCISES NEUROMUSCULAR RE-ED FUNC ACTIVITY HOT/COLD PACK ELECTRIC STIMULATION UNATT Medications Name Dose Freq Route DOC May THERAPEUTIC EXERCISES NEUROMUSCULAR RE-ED MANUAL THERAPY FUNC ACTIVITY Medications Name Dose Freq Route DOC Apr THERAPEUTIC EXERCISES NEUROMUSCULAR RE-ED MANUAL THERAPY FUNC ACTIVITY HOT/COLD PACK Medications Name Dose Freq Route DOC Apr THERAPEUTIC EXERCISES NEUROMUSCULAR RE-ED MANUAL THERAPY FUNC ACTIVITY HOT/COLD PACK ELECTRIC STIMULATION Medications Name Dose Freq Route DOC Apr THERAPEUTIC EXERCISES NEUROMUSCULAR RE-ED MANUAL THERAPY FUNC ACTIVITY HOT/COLD PACK ELECTRIC STIMULATION Medications Name Dose Freq Route DOC Apr THERAPEUTIC EXERCISES MANUAL THERAPY FUNC ACTIVITY HOT/COLD PACK ELECTRIC STIMULATION UNA THERAPEUTIC EXERCISES NEUROMUSCULAR RE-ED MANUAL THERAPY FUNC ACTIVITY 15 MIN Medications Name Dose Freq Route DOC Apr THERAPEUTIC EXERCISES NEUROMUSCULAR RE-ED MANUAL THERAPY FUNC ACTIVITY 15 MIN Medications Name Dose Freq Route DOC Apr THERAPEUTIC EXERCISES NEUROMUSCULAR RE-ED FUNC ACTIVITY 15 MIN Medications Name Dose Freq Route DOC Apr THERAPEUTIC EXERCISES NEUROMUSCULAR RE-ED FUNC ACTIVITY 15 MIN Medications Name Dose Freq Route DOC Apr THERAPEUTIC EXERCISES MANUAL THERAPY FUNC ACTIVITY 15 MIN HOT/COLD PACK ELECTRIC STIMULATION Medications Name Dose Freq Route DOC Apr PT EVALUATION THERAPEUTIC EXERCISES Carrying, Moving And Handling Objects-Cu rrent Carrying, Moving And Handling Objects-Go al Advance Directives Directive Yes / No Effective Date File Name No Information Encounters Encounter Description Practice Location Reason(s) For Visit Diagnoses Date Provider Providers Copied on Encounter [facility] [facility] [address], [place], [place], [id number], [place] tel:[phone] [place] No Information Dino Cohen. [address] [facility], [place], [address], [place]. tel:[phone] Referring Provider: Harshal Enciso [address], [place], [address]. tel:[phone], [id number], tel:[phone] [place] No Information Dino Cohen. [address] [facility], [address] [place] [address], [facility], . tel:[phone] Referring Provider: Harshal Enciso [address], [place], [address]. tel:[phone], [id number], tel:[phone] [place] No Information Dino Cohen. [address] [place] [address], [address], [facility], . tel:[phone] Referring Provider: Harshal Enciso [address], [place], [address]. tel:[phone], [id number], tel:[phone] [place] No Information Dino Cohen. [address] [facility], [address], [facility], [place]. tel:[phone] Referring Provider: Harshal Enciso [address], [place], [address]. tel:[phone], [id number], tel:[phone] [place] No Information Shola Minor. [address] [facility], [address], [place], [facility], . tel:[phone] Referring Provider: [address], [place], [address]. tel:[phone] [address], [place], [place], [id number], tel:[phone] [place] No Information Dino Cohen. [address] [facility], [address], [place], [facility], . tel:[phone] Referring Provider: [address], [place], [address]. tel:[phone] [address], [place], [place], [id number], tel:[phone] [place] No Information Dino Cohen. [address] [facility] [facility] [address], [place], [facility], . tel:[phone] Referring Provider: [address], [place], [address]. tel:[phone] [address], [place], [place], [id number], tel:[phone] [place] No Information Dino Cohen. [address] [facility], [address], [place], [facility], . tel:[phone] Referring Provider: [address], [place], [address]. tel:[phone], [place], [id number], tel:[phone] [place] No Information Shola Minor. [address] [facility], [address], [place], [facility], . tel:[phone] Referring Provider: [address], [place], [address]. tel:[phone], [place], [place], [id number], tel:[phone] [place] No Information Dino Cohen. [address] [facility], [address], [place], [facility], . tel:[phone] Referring Provider: [address], [place], [address]. tel:[phone] [address], [place], [place], [id number], tel:[phone] [place] No Information Dino Cohen. [address] [place] [address], [address], [place], [facility], . tel:[phone] Referring Provider: Zul[address] [facility] [address], [place], [address]. tel:[phone] [address], [place], [place], [id number], [place] tel:[phone] [place] No Information Shola Minor. [address] [facility], [address], [place], [facility], . tel:[phone] Referring Provider: Zul[address] Fair[address] [facility] [address], [place], [address]. tel:[phone] [address], [place], [place], [id number], [place] tel:[phone] [place] No Information Dino Cohen. [address] [facility], [address], [place], [facility], . tel:[phone] Referring Provider: [address], [place], [address]. tel: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 [address] [facility], [address], [place], [address], [place]. tel:[phone] Referring Provider: [address], [place], [address]. tel:[phone] Family History Family Member Type Diagnosis Age At Onset No Information Payers Payer name Insurance type Covered libertarian ID Authoriza tiroselia(s) [employer] CI [id number] Social History Type Description Quantity Date Captured Comments Sex Male Smoking Status No Information Chief Complaint And Reason For Visit No [...]
--- OUTSIDE RECORDS SUMMARY | 2024-11-25 05:09 | XMS_ITS | Encounter Summary ---
Author Organization [facility] [employer] [facility] Address [address] [place] [address] Care Team Providers Care Agricultural Science Professor Name Role Phone Etienne Maher Primary Care Provider [phone] Reason for Visit * Reason Onset Date Comments f/U appt 05/28/2022 Encounter Details Date Type Department Care Team (Late st Contact Info) Description 05/28/2022 Telephone [facility] Oncology and Hematology - [place] [address] [facility] [address] [place] [address] Matty Murry MD [address] [facility] [address] [place] [address] f/U appt Social History Tobacco Use Types Packs/Day Years [...] encounter Miscellaneous Notes * Telephone Encounter - Sarahy Espana - 05/28/2022 10:52 AM CDT Images from the original note were not included. Matty Murry MD [place], [place] Please make follow-up appointment with me. ??Patient is going to start radiation therapy. ??I have talked to Dr. Peterson and already. Called patient to schedule f/u appointment. Left message. documented in this encounter Plan of Treatment Not on file documented as of this encounter Visit Diagnoses Not on filedocumented in this encounter Care Teams Agricultural Science Professor Relationship Specialty Start Date End Date Etienne Maher DO [address] [facility] [address] [facility] [address] [place] [address] PCP - General Internal Medicine 04/20/22 documented as of this encounter
== END 2024-11-24 19:13 | DRG 189 ==
LOC: ANHED 23:45 → ANHIMU 11-18 10:09 → ANH2MED 11-23 10:22 → ANHIMU 11-26 09:46
PROVIDERS: Nurse Practitioner; Admitting Provider Internal Medicine; Emergency Provider Emergency Medicine; PCP Family Medicine; Visit Provider Internal Medicine
DX: J96.21 Acute and chronic respiratory failure with hypoxia (principal); L89.154 Pressure ulcer of sacral region, stage 4; E43 Unspecified severe protein-calorie malnutrition; J18.9 Pneumonia, unspecified organism; I50.32 Chronic diastolic (congestive) heart failure; I48.20 Chronic atrial fibrillation, unspecified; C34.90 Malignant neoplasm of unspecified part of unspecified bronchus or lung; J44.0 Chronic obstructive pulmonary disease with (acute) lower respiratory infection; D64.9 Anemia, unspecified; E11.65 Type 2 diabetes mellitus with hyperglycemia; I25.10 Atherosclerotic heart disease of native coronary artery without angina pectoris; E03.9 Hypothyroidism, unspecified; E78.2 Mixed hyperlipidemia; I35.0 Nonrheumatic aortic (valve) stenosis; N40.0 Benign prostatic hyperplasia without lower urinary tract symptoms; G25.81 Restless legs syndrome; Z66 Do not resuscitate; Z22.322 Carrier or suspected carrier of Methicillin resistant Staphylococcus aureus; Z68.27 Body mass index [BMI] 27.0-27.9, adult; Z99.81 Dependence on supplemental oxygen; Z79.01 Long term (current) use of anticoagulants
CPT/HCPCS: 36415; 36600; 71045; 71250; 80053; 80202; 81001; 82565; 82805; 82948; 83735; 83880; 84484; 85014; 85018; 85025; 87040; 87635; 87637; 87641; 93005; 94002; 94003; 94640; 96365; 96366; 96367; 96375; 97161; 97165; 97530; 99291; A9270; J0692; J1610; J1836; J1940; J3370; J3475; J7070; P9041